=== PATIENT | male | born 1955 | race African-American/Black ===

== ENCOUNTER 2023-02-17 15:24 | Emergency (ER) | payer MEDICARE, SELFPAY ==
[2023-02-17] VITALS (24 sets, daily range): BP systolic 121–146; BP diastolic 77–121; PULSE 72–89; RESP 11–29; TEMP 36.4–36.5; O2SAT 95–100
[2023-02-17 17:58] LABS: Basophils Percent Auto 0.3 % (0.2-1.2); Eosinophils Absolute Auto 0.3 K/mm3 (0-0.3); Eosinophils Percent Auto 3.2 % (0-4.4); Hematocrit 28.7 % (42.0-52.0); Immature Granulocyte Absolute 0.04 K/mm3 (0.00-0.031); Immature Granulocyte Percent A 0.4 % (0-0.5); Lymphocytes Absolute Auto 1.94 K/mm3 (0.9-3.2); Lymphocytes Percent Auto 18.9 % (18.3-44.2); Mean Corpuscular HGB Conc 31.4 g/dl (32-36); Mean Corpuscular Volume 89.4 fl (80-100); Mean Platelet Volume 9.8 fl (7.4-10.4); Monocytes Absolute Auto 0.8 K/mm3 (0.1-0.6); Monocytes Percent Auto 7.9 % (2.6-8.5); Neutrophils Absolute Auto 7.1 K/mm3 (1.3-6.7); Neutrophils Percent Auto 69.3 % (45.5-73.1); Platelet Count Result 464 k/mm3 (150-375); Red Blood Count 3.21 M/mm3 (4.6-6.20); White Blood Count 10.3 K/mm3 (4.5-10.0)
[2023-02-17 18:10] LABS: Prothrombin Time 13.5 Seconds (11.1-14.7)
[2023-02-17 18:11] LABS: Partial Thromboplastin Time 30.9 SECONDS (22.3-36.8)
[2023-02-17 18:26] LABS: Alanine Aminotransferase 9 U/L (6-50); Albumin Level 3.8 g/dL (3.5-5.1); Alkaline Phosphatase 105 U/L (38-126); Anion Gap 6 mmol/L (8-16); Aspartate Amino Transferase 21 U/L (17-59); Bilirubin,Total 0.3 mg/dL (0.2-1.3); Blood Urea Nitrogen 30 mg/dL (9-20); Calcium 8.8 mg/dL (8.4-10.2); Carbon Dioxide 24 mmol/L (22-30); Chloride 106 mmol/L (98-107); Estimated CRCL calculation 15 ml/min; Estimated Glomerular Filt Rate 15; Glucose 101 mg/dL (65-110); Potassium 4.3 mmol/L (3.4-5.0); Sodium 136 mmol/L (137-145)
--- NOTE | 2023-02-17 18:42 | ED.GENADULT ---
HPI - General Adult General Chief complaint: Recheck/Abnormal Lab/Rx Stated complaint: dialysis port not working Time Seen by Provider: 02/17/23 17:26 History of Present Illness HPI narrative: 67-year-old male presenting to the emergency department for evaluation of his poorly functioning dialysis catheter. Patient has been on dialysis for the last 3 or 4 months. Patient was an [place] 8 when he had a urologic procedure and the [place] catheter got clogged off with blood causing urinary retention and a subsequent urinary tract infection. Patient developed SHARI requiring dialysis. Patient has been getting dialysis since. Patient had his dialysis port last changed in [place] when he was visiting family few weeks ago. Over the course of the last week the patient states that he has been unable to complete a full dialysis and patient was told to present to [place] to have the port changed. Patient states his town planner is at [facility]. Patient has never had a catheter port change at [facility]. Related Data Allergies Allergy/AdvReac Type Severity Reaction Status Date / Time No Known Allergies Allergy Verified 02/17/23 17:26 Review of Systems Review of Systems: All systems reviewed & are unremarkable except as noted in HPI and below Exam Narrative: APPEARANCE: Well appearing, no pain, no distress, well-nourished. HEAD: normocephalic, atraumatic. EYES: PERRLA/EOMI, conjunctivae clear. NOSE: Normal no drainage EARS:TMS clear with good light reflex. THROAT: Pharynx clear, no exudate. NECK: Supple. No adenopathy, no masses. RESPIRATORY: Airway patent, respirations nonlabored. Clear to auscultation bilaterally, no rales, rhonchi, wheezing. CARDIOVASCULAR: Regular rate and rhythm without murmurs rubs or gallops. ABDOMINAL: Soft, nontender, nondistended, normal bowel sounds MUSCULOSKELETAL: Moves all extremities. Strength/ROM intact, No edema, No calf tenderness. NEURO: Alert. Cranial nerves II through XII intact. Grossly intact SKIN: Warm, dry. Normal Color Course Course Emergency Course: 67-year-old male presenting ED to have his dialysis catheter exchanged. While waiting for the hospitalist at [facility] to call me back the patient opted to the AMA. Patient was afebrile but did have a minor leukocytosis of 10.3 and a hemoglobin of 9.0. No prior labs are on file. Patient does have a sodium of 136, potassium of 4.3, BUN of 30 and a creatinine of 4.7. No prior baselines are on file. Patient was alert oriented and clinically appropriate when he decided to leave [place]. Patient states he is going to [facility]. Vital Signs Vital signs: Vital Signs Temperature 97.6 F 02/17/23 15:29 Pulse Rate 81 02/17/23 15:29 Respiratory Rate 16 02/17/23 15:29 Blood Pressure 123/77 02/17/23 15:29 Pulse Oximetry 97 02/17/23 15:29 Oxygen Delivery Room Air 02/17/23 15:29 Temperature 97.7 F 02/17/23 17:23 Pulse Rate 78 02/17/23 20:56 Respiratory Rate 13 02/17/23 20:56 Blood Pressure 140/87 02/17/23 20:56 Pulse Oximetry 96 02/17/23 20:56 Oxygen Delivery Room Air 02/17/23 17:23 Medical Decision Making Vital Signs Vital Signs: Vital Signs Temperature 97.6 F 02/17/23 15:29 Pulse Rate 81 02/17/23 15:29 Respiratory Rate 16 02/17/23 15:29 Blood Pressure 123/77 02/17/23 15:29 Pulse Oximetry 97 02/17/23 15:29 Oxygen Delivery Room Air 02/17/23 15:29 Temperature 97.7 F 02/17/23 17:23 Pulse Rate 78 02/17/23 20:56 Respiratory Rate 13 02/17/23 20:56 Blood Pressure 140/87 02/17/23 20:56 Pulse Oximetry 96 02/17/23 20:56 Oxygen Delivery Room Air 02/17/23 17:23 Lab Data 02/17/23 17:50 02/17/23 18:11 Labs: Lab Results 02/17/23 02/17/23 Range/Units 17:50 18:11 WBC 10.3 H (4.5-10.0) K/mm3 RBC 3.21 L (4.6-6.20) M/mm3 Hgb 9.0 L (14.0-18.0) g/dL Hct 28.7 L (42.0-52.0) %
--- NOTE | 2023-02-17 19:20 | PC.NURSE ---
Assumed care of pt from BHARGAVI Armenta at this time.
== END 2023-02-17 20:58 | disposition left against medical advice (07) ==
PROVIDERS: Emergency Provider Emergency Medicine
DX: T82.49XA Other complication of vascular dialysis catheter, initial encounter (principal); Y84.1 Kidney dialysis as the cause of abnormal reaction of the patient, or of later complication, without mention of misadventure at the time of the procedure
CPT/HCPCS: 36415; 80053; 85025; 85610; 85730; 99283

== ENCOUNTER 2023-04-28 18:31 | Emergency (ER) | payer MEDICARE, SELFPAY ==
--- NOTE | ~2023-04-28 | XR_ITS ---
EXAMINATION: XR chest 1V portable INDICATION: Weakness TECHNIQUE: Portable AP chest at 2018 hours COMPARISON: None available FINDINGS: A large bore right internal jugular catheter ends with this tip in the proximal right atriu m. The lungs are free of acute opacities. No pleural effusion or pneumothorax. The cardiomediastinal silhouette is normal. IMPRESSION: 1. No acute cardiopulmonary abnormality. Reviewed, dictated and finalized at location F. ER AND PRINTER FIELD TECHNICIAN
[2023-04-28 18:41] VITALS: BP 105/65; PULSE 95; RESP 18; TEMP 37.3; O2SAT 100
[2023-04-28 20:04] VITALS: BP 133/90; PULSE 91; RESP 24; O2SAT 98
[2023-04-28 20:07] VITALS: PULSE 91
--- NOTE | 2023-04-28 20:11 | ECG_ITS ---
Measurements Intervals [place] Rate: 89 P: 52 MT: 164 QRS: 26 QRSD: 91 T: 74 QT: 353 QTc: 431 Interpretive Statements SINUS RHYTHM WITH MARKED SINUS ARRHYTHMIA NONSPECIFIC T-WAVE ABNORMALITY NO PREVIOUS ECG AVAILABLE FOR COMPARISON Electronically Signed On 04-29-2023 15:39:28 [employer] by Roya Figueroa M.D.
--- NOTE | 2023-04-28 20:33 | ED.GENADULT ---
HPI - General Adult General Chief complaint: Syncope Stated complaint: syncope Time Seen by Provider: 04/28/23 20:00 History of Present Illness HPI narrative: patient is a 67-year-old gentleman who presents emergency department with chief complaint of possible syncopal episode patient reports that he has history of end-stage renal disease on dialysis Wednesday patient states he went to his normal dialysis session but afterwards felt extremely tired the patient reports that he sat down in a chair and was resting his family was talking to him the patient remembers hearing them and remembers hearing the touch him that he just did not feel like his hand no energy to really interact with him wanted to rest EMS was called and the patient was alert and oriented upon arrival the patient states he has no real complaints this time denies chest pain denies shortness of breath denies actual syncope. Related Data Allergies Allergy/AdvReac Type Severity Reaction Status Date / Time No Known Allergies Allergy Verified 02/17/23 17:26 Review of Systems Review of Systems: A 10 system review of systems was completed on the patient and is negative except for what is stated in the HPI. Nursing and ancillary documentation was reviewed. Exam Narrative: GENERAL: Well-appearing, well-nourished, and in no acute distress. HEAD: Normocephalic, atraumatic. EYES: PERRLA and EOMI. ENT: Nares clear, no rhinorrhea or epistaxis. Mucous membranes moist. NECK: Supple. CHEST: Clear to auscultation. No respiratory distress. Dialysis catheter present in the anterior chest on the right side no erythema no purulent drainage from the insertion site. HEART: Regular rate and rhythm. No murmur heard. Normal peripheral pulses. ABDOMEN: Soft, nontender, nondistended, normal active bowel sounds. EXTREMITIES: Normal range of motion. No edema. SKIN: Warm, dry, no rash. NEURO: No focal deficits. Alert and oriented x3. PSYCH: Normal mood and affect. Course Vital Signs Vital signs: Vital Signs Temperature 37.3 C 04/28/23 18:41 Pulse Rate 95 04/28/23 18:41 Respiratory Rate 18 04/28/23 18:41 Blood Pressure 105/65 04/28/23 18:41 Pulse Oximetry 100 04/28/23 18:41 Oxygen Delivery Room Air 04/28/23 18:41 Temperature 37.3 C 04/28/23 18:41 Pulse Rate 92 04/28/23 22:30 Respiratory Rate 15 04/28/23 22:30 Blood Pressure 121/81 04/28/23 22:30 Pulse Oximetry 100 04/28/23 22:30 Oxygen Delivery Room Air 04/28/23 18:41 Medical Decision Making MDM Narrative Medical decision making narrative: differential diagnosis includes UTI, pneumonia, electrolyte abnormality, and COVID-19, laboratory studies were obtained showed normal CBC with white count 11.4 electrolytes showed no significant abnormality patient has history of end-stage renal disease his creatinine is 3.8 carbon dioxide is 33 potassium is 3.9 urinalysis showed greater than 100 white blood cells in the urine 3+ leukocyte esterase patient also was positive for COVID-19 given the patient's end-stage renal disease on dialysis patient is not a candidate for packed Alf. Patient will be instructed symptomatic care for COVID but also be started on antibiotics for UTI. Chest x-ray showed no focal infiltrate and strep was negative. Vital Signs Vital Signs: Vital Signs Temperature 37.3 C 04/28/23 18:41 Pulse Rate 95 04/28/23 18:41 Respiratory Rate 18 04/28/23 18:41 Blood Pressure 105/65 04/28/23 18:41 Pulse Oximetry 100 04/28/23 18:41 Oxygen Delivery Room Air 04/28/23 18:41 Temperature 37.3 C 04/28/23 18:41 Pulse Rate 92 04/28/23 22:30 Respiratory Rate 15 04/28/23 22:30 Blood Pressure 121/81 04/28/23 22:30 Pulse Oximetry 100 04/28/23 22:30 Oxygen Delivery Room Air 04/28/23 18:41 Lab Data 04/28/23 20:28 04/28/23 20:28 Labs: Lab Results 04/28/23 04/28/23 04/28/23 Rang
[2023-04-28 20:45] LABS: Basophils Absolute Auto 0.1 K/mm3 (0.0-0.1); Basophils Percent Auto 0.7 % (0.2-1.2); Eosinophils Absolute Auto 0.2 K/mm3 (0-0.3); Eosinophils Percent Auto 1.8 % (0-4.4); Hematocrit 42.3 % (42.0-52.0); Hemoglobin 13.4 g/dL (14.0-18.0); Immature Granulocyte Absolute 0.04 K/mm3 (0.00-0.031); Immature Granulocyte Percent A 0.4 % (0-0.5); Lymphocytes Absolute Auto 1.08 K/mm3 (0.9-3.2); Lymphocytes Percent Auto 9.5 % (18.3-44.2); Mean Corpuscular HGB Conc 31.7 g/dl (32-36); Mean Corpuscular Hemoglobin 28.6 pg (26-34); Mean Corpuscular Volume 90.2 fl (80-100); Mean Platelet Volume 9.9 fl (7.4-10.4); Monocytes Absolute Auto 0.9 K/mm3 (0.1-0.6); Monocytes Percent Auto 7.5 % (2.6-8.5); Neutrophils Absolute Auto 9.1 K/mm3 (1.3-6.7); Neutrophils Percent Auto 80.1 % (45.5-73.1); Platelet Count Result 283 k/mm3 (150-375); Red Blood Count 4.69 M/mm3 (4.6-6.20); Red Cell Distribution Width 19.2 % (11.5-14.5); White Blood Count 11.4 K/mm3 (4.5-10.0)
[2023-04-28 20:56] LABS: Appearance Urine Turbid (Clear); Bacteria Urine 4+ /hpf; Bilirubin Urine Negative (Negative); Blood Urine 3+ (Negative); Color Urine Dark Yellow (Yellow); Glucose Urine UA Negative (Negative); Ketones Urine Negative (Negative); Leukocyte Esterase Ur 3+ LEU/UL (Negative); Need Manual Microscopic Reviewed; Nitrate Urine Negative (Negative); Non Pathogenic Casts >20; Protein Urine 3+ mg/dL (Negative); Specific Grav Ur 1.016 (1.001-1.035); Squamous Epithelial Cell Urine Occasional /hpf (Few); WBC Urine >100 /hpf; pH Urine 7.5 (5.0-9.0)
[2023-04-28 20:57] LABS: Add Urine Microscopic? YES
[2023-04-28 21:10] LABS: Strep Group A RT-PCR NOT DETECTED (Negative)
[2023-04-28 21:21] LABS: Influenza A QL RT-PCR Negative (Negative); Influenza B QL RT-PCR Negative (Negative); RSV RNA, RT-PCR Negative (Negative); SARS-CoV-2 RNA PCR Positive (Negative)
[2023-04-28 22:30] VITALS: BP 121/81; PULSE 92; RESP 15; O2SAT 100
[2023-04-28 22:41] LABS: Alanine Aminotransferase 12 U/L (6-50); Albumin Level 4.5 g/dL (3.5-5.1); Alkaline Phosphatase 112 U/L (38-126); Anion Gap 6 mmol/L (8-16); Aspartate Amino Transferase 26 U/L (17-59); Bilirubin,Total 0.4 mg/dL (0.2-1.3); Blood Urea Nitrogen 13 mg/dL (9-20); Calcium 9.3 mg/dL (8.4-10.2); Carbon Dioxide 33 mmol/L (22-30); Chloride 95 mmol/L (98-107); Estimated CRCL calculation 19 ml/min; Estimated Glomerular Filt Rate 19; Glucose 95 mg/dL (65-110); Potassium 3.9 mmol/L (3.4-5.0); Sodium 134 mmol/L (137-145)
[2023-04-28 22:52] LABS: Troponin I < 0.012 ng/mL (0.000-0.034)
[2023-04-29 00:41] VITALS: BP 114/70; PULSE 94; RESP 20; O2SAT 100
== END 2023-04-29 00:11 | disposition home or self-care (01) ==
PROVIDERS: Emergency Provider Emergency Medicine
DX: U07.1 COVID-19 (principal); J06.9 Acute upper respiratory infection, unspecified; N39.0 Urinary tract infection, site not specified; N18.6 End stage renal disease; Z99.2 Dependence on renal dialysis; R94.31 Abnormal electrocardiogram [ECG] [EKG]
CPT/HCPCS: 36415; 71045; 80053; 81001; 84484; 85025; 87086; 87088; 87637; 87651; 93005; 99284

== ENCOUNTER 2024-03-11 11:36 | Inpatient (IN) | payer MEDICARE, MEDICAID, SELFPAY ==
--- NOTE | ~2024-03-11 | NM_ITS ---
EXAMINATION: NM tono stress w perfusion DATE: 03/14/2024 14:12 INDICATION: Abnormal electrocardiogram. Premature ventricular contractions. TECHNIQUE: Rest images were obtained following intravenous administration of 9.0 mCi Tc99m tetrofosmi n (Myoview). The patient was infused intravenously with Lexiscan (regadenoson). Then, 27.6 mCi Tc99m tetrofosmin (Myoview) was administered intravenously, and stress images were obtained. Data was recon structed into short axis and horizontal and vertical long axis SPECT images. Gated SPECT images were also obtained. COMPARISON: None. FINDINGS: There is no definite reversible or fixed perfusion abnormality to suggest ischemia or infar ction. There is no segmental wall motion abnormality. Left ventricular ejection fraction measures 6 2%. IMPRESSION: 1. No definite ischemia or infarct. 2. Normal left ventricular ejection fraction measuring 62%. Reviewed, dictated and finalized at location A. OSIVE ORDNANCE TECHNICIAN
--- NOTE | ~2024-03-11 | XR_ITS ---
XR chest 2V Ordering provider: Jeni Huddleston PA-C History: 68 years Male with . weakness, dizziness . Comparison: April 28, 2023 FINDINGS: MEDIASTINUM: The cardiac silhouette is not enlarged. Right permacath with the tip overlying superior vena cava. LUNGS: No infiltrates, effusions or pneumothorax. OTHER: No free air under the diaphragm. IMPRESSION: No acute cardiopulmonary pathology. Reviewed, dictated and finalized at location A. A DRIVER
[2024-03-11 12:16] VITALS: BP 124/79; PULSE 63; RESP 18; TEMP 36.3; O2SAT 100
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
--- NOTE | 2024-03-11 15:41 | ECG_ITS ---
Test Date: 2024-03-11 16:22:05 Measurements Intervals [place] Rate: 64 P: 57 RI: 199 QRS: 8 QRSD: 76 T: 63 QT: 388 QTc: 402 Interpretive Statements SINUS RHYTHM POSSIBLE ANTERIOR MYOCARDIAL INFARCTION , OF INDETERMINATE AGE [30 ms Q WAVE IN V3/V4, OR R < 0.2 mV IN V4] ABNORMAL ECG No previous ECG available for comparison Electronically Signed On 03-11-2024 17:43:50 HOME HEALTH ATTENDANT by Selvin Arellano M.D.
[2024-03-11 16:18] VITALS: BP 138/87; PULSE 66; PULSE 67; RESP 19; O2SAT 100
[2024-03-11 16:25] LABS: Basophils Absolute Auto 0.1 K/mm3 (0.0-0.1); Basophils Percent Auto 0.7 % (0.2-1.2); Eosinophils Absolute Auto 0.1 K/mm3 (0-0.3); Hematocrit 39.8 % (42.0-52.0); Hemoglobin 13.1 g/dL (14.0-18.0); Immature Granulocyte Absolute 0.03 K/mm3 (0.00-0.031); Immature Granulocyte Percent A 0.3 % (0-0.5); Lymphocytes Absolute Auto 2.17 K/mm3 (0.9-3.2); Lymphocytes Percent Auto 24.7 % (18.3-44.2); Mean Corpuscular HGB Conc 32.9 g/dl (32-36); Mean Corpuscular Hemoglobin 31.3 pg (26-34); Mean Corpuscular Volume 95.2 fl (80-100); Mean Platelet Volume 10.7 fl (7.4-10.4); Monocytes Absolute Auto 0.4 K/mm3 (0.1-0.6); Monocytes Percent Auto 4.3 % (2.6-8.5); Neutrophils Absolute Auto 6.1 K/mm3 (1.3-6.7); Platelet Count Result 275 k/mm3 (150-375); Red Blood Count 4.18 M/mm3 (4.6-6.20); Red Cell Distribution Width 14.3 % (11.5-14.5); White Blood Count 8.8 K/mm3 (4.5-10.0)
[2024-03-11 16:33] LABS: INR 0.9; Prothrombin Time 12.1 Seconds (11.1-14.7)
[2024-03-11 16:34] LABS: Partial Thromboplastin Time 29.4 Seconds (22.3-36.8)
[2024-03-11 16:43] LABS: NT Pro B Type Natriuretic Pept 6350 pg/mL (19.9-100)
[2024-03-11 17:03] LABS: Alanine Aminotransferase 11 U/L (6-50); Albumin Level 4.4 g/dL (3.5-5.1); Alkaline Phosphatase 79 U/L (38-126); Anion Gap 21 mmol/L (4-12); Aspartate Amino Transferase 18 U/L (17-59); Bilirubin,Total 0.8 mg/dL (0.2-1.3); Blood Urea Nitrogen 64 mg/dL (9-20); Calcium 9.2 mg/dL (8.4-10.2); Carbon Dioxide 17 mmol/L (22-30); Chloride 98 mmol/L (98-107); Glucose 59 mg/dL (65-110); Potassium 5.5 mmol/L (3.4-5.0); Sodium 136 mmol/L (137-145)
[2024-03-11 17:10] VITALS: BP 137/84; PULSE 72; RESP 16
[2024-03-11 17:18] LABS: Estimated CRCL calculation 4 ml/min; Estimated Glomerular Filt Rate 4
[2024-03-11 17:43] LABS: Glucose Point of Care 84 mg/dl (65-105)
[2024-03-11 19:19] VITALS: BP 142/78; PULSE 67; RESP 15; O2SAT 100
[2024-03-11] MEDS: SODIUM ZIRCONIUM CYCLOSILICATE 10 GM POWD.PACK PO (19:19)
[2024-03-11] MEDS: FUROSEMIDE INJ 40 MG/4 ML VIAL IV PUSH (19:19)
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
[2024-03-11 21:25] VITALS: BP 154/85; PULSE 64; RESP 16; TEMP 36.6; O2SAT 100
[2024-03-12] VITALS (23 sets, daily range): BP systolic 113–151; BP diastolic 70–95; PULSE 64–88; RESP 14–20; TEMP 36.5–36.9; O2SAT 99–100; BMI 19.8
--- NOTE | 2024-03-12 05:23 | ADMGEN ---
This patient, Niesha Ceja, was admitted to 2 Medical Room 255-. Patient/family oriented to hospital policies and general routines including ID bracelet, bed and alarms, visiting hours, pain management, procedures, bathroom and other care routines, personal items, smoking policy, room service/diet, and visiting hours. Information on how to activate the Rapid Response Team has been discussed. Patient/Family are encouraged to report perceived risks to care and to ask questions if they do not understand what they are told or what they should do.
[2024-03-12 06:37] LABS: Hepatitis B Surface Antigen Negative (Negative)
[2024-03-12 06:55] LABS: Hepatitis B Surface Anti Res Positive
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
[2024-03-12 07:52] LABS: Basophils Absolute Auto 0.1 K/mm3 (0.0-0.1); Basophils Percent Auto 0.7 % (0.2-1.2); Eosinophils Absolute Auto 0.3 K/mm3 (0-0.3); Eosinophils Percent Auto 2.9 % (0-4.4); Hematocrit 35.7 % (42.0-52.0); Hemoglobin 11.9 g/dL (14.0-18.0); Immature Granulocyte Absolute 0.02 K/mm3 (0.00-0.031); Immature Granulocyte Percent A 0.2 % (0-0.5); Lymphocytes Absolute Auto 2.73 K/mm3 (0.9-3.2); Lymphocytes Percent Auto 31.2 % (18.3-44.2); Mean Corpuscular HGB Conc 33.3 g/dl (32-36); Mean Corpuscular Hemoglobin 31.9 pg (26-34); Mean Corpuscular Volume 95.7 fl (80-100); Monocytes Absolute Auto 0.6 K/mm3 (0.1-0.6); Monocytes Percent Auto 7.2 % (2.6-8.5); Neutrophils Absolute Auto 5.1 K/mm3 (1.3-6.7); Neutrophils Percent Auto 57.8 % (45.5-73.1); Platelet Count Result 233 k/mm3 (150-375); Red Blood Count 3.73 M/mm3 (4.6-6.20); Red Cell Distribution Width 14.4 % (11.5-14.5); White Blood Count 8.8 K/mm3 (4.5-10.0)
[2024-03-12 08:24] LABS: Alanine Aminotransferase 8 U/L (6-50); Albumin Level 3.7 g/dL (3.5-5.1); Alkaline Phosphatase 72 U/L (38-126); Anion Gap 13 mmol/L (4-12); Aspartate Amino Transferase 24 U/L (17-59); Bilirubin,Total 0.7 mg/dL (0.2-1.3); Blood Urea Nitrogen 69 mg/dL (9-20); Calcium 8.7 mg/dL (8.4-10.2); Carbon Dioxide 17 mmol/L (22-30); Chloride 103 mmol/L (98-107); Estimated CRCL calculation 4 ml/min; Estimated Glomerular Filt Rate 4; Glucose 72 mg/dL (65-110); Potassium 5.6 mmol/L (3.4-5.0); Sodium 133 mmol/L (137-145)
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
--- NOTE | 2024-03-12 12:58 | P.PNCROSS_ITS ---
Event Note Event Note Event Note: Patient is on dialysis. He is tolerating it well. Removing 3L of fluid and do ing well. Patient was seen at noon
--- NOTE | 2024-03-12 12:58 | PM.EVENT ---
Event Note Event Note Event Note: Patient is on dialysis. He is tolerating it well. Removing 3L of fluid and doing well. Patient was seen at noon
[2024-03-12 14:27] LABS: Iron 101 ug/dL (49-181)
[2024-03-12 14:36] LABS: Percent Iron Saturation 41 % (20-50)
[2024-03-12] MEDS: HEPARIN SODIUM 1,000 UNITS/ML VIAL 1000 UNITS IV PUSH (14:40)
[2024-03-12 15:31] LABS: Folic Acid 7.1 ng/mL (2.76->20)
[2024-03-12] MEDS: HYDROcodone/acetaminophen (*CRX) 5-325 MG TABLET 1 TAB PO ×2 (18:11→22:17)
[2024-03-12] MEDS: METOPROLOL TARTRATE 25 MG TABLET PO (20:30)
[2024-03-12] MEDS: TAMSULOSIN HCL 0.4 MG CAPSULE PO (20:31)
[2024-03-13] VITALS (25 sets, daily range): BP systolic 88–158; BP diastolic 57–88; PULSE 40–92; RESP 16–20; TEMP 36.4–37.1; O2SAT 99–100
--- NOTE | 2024-03-13 01:27 | ECG_ITS ---
Test Date: 2024-03-13 01:39:58 Measurements Intervals [place] Rate: 62 P: 59 NH: 190 QRS: 2 QRSD: 77 T: 57 QT: 411 QTc: 420 Interpretive Statements sinus rhythm with pacs and pvcs SEPTAL MYOCARDIAL INFARCTION , PROBABLY OLD [40+ ms Q WAVE IN V1/V2] CRITICAL TEST RESULT Compared to ECG 03/11/2024 16:22:05 Sinus rhythm no longer present Myocardial infarct finding still present Electronically Signed On 03-13-2024 21:54:35 [employer] E[employer] SEWING MACHINE OPERATOR by Kenya Jacobo M.D.
[2024-03-13] MEDS: HYDROcodone/acetaminophen (*CRX) 5-325 MG TABLET 1 TAB PO ×4 (02:11→20:58)
[2024-03-13 05:57] LABS: Basophils Absolute Auto 0.1 K/mm3 (0.0-0.1); Basophils Percent Auto 0.7 % (0.2-1.2); Eosinophils Absolute Auto 0.3 K/mm3 (0-0.3); Eosinophils Percent Auto 2.8 % (0-4.4); Hematocrit 36.9 % (42.0-52.0); Immature Granulocyte Absolute 0.04 K/mm3 (0.00-0.031); Immature Granulocyte Percent A 0.4 % (0-0.5); Lymphocytes Absolute Auto 3.78 K/mm3 (0.9-3.2); Lymphocytes Percent Auto 40.3 % (18.3-44.2); Mean Corpuscular HGB Conc 32.5 g/dl (32-36); Mean Corpuscular Hemoglobin 30.9 pg (26-34); Mean Corpuscular Volume 95.1 fl (80-100); Mean Platelet Volume 10.4 fl (7.4-10.4); Monocytes Absolute Auto 0.9 K/mm3 (0.1-0.6); Monocytes Percent Auto 9.7 % (2.6-8.5); Neutrophils Absolute Auto 4.3 K/mm3 (1.3-6.7); Neutrophils Percent Auto 46.1 % (45.5-73.1); Platelet Count Result 215 k/mm3 (150-375); Red Blood Count 3.88 M/mm3 (4.6-6.20); Red Cell Distribution Width 14.1 % (11.5-14.5); White Blood Count 9.4 K/mm3 (4.5-10.0)
[2024-03-13 06:12] LABS: Alanine Aminotransferase 9 U/L (6-50); Albumin Level 3.7 g/dL (3.5-5.1); Alkaline Phosphatase 63 U/L (38-126); Anion Gap 12 mmol/L (4-12); Aspartate Amino Transferase 18 U/L (17-59); Bilirubin,Total 0.5 mg/dL (0.2-1.3); Blood Urea Nitrogen 33 mg/dL (9-20); Calcium 8.3 mg/dL (8.4-10.2); Carbon Dioxide 24 mmol/L (22-30); Chloride 97 mmol/L (98-107); Estimated CRCL calculation 6 ml/min; Estimated Glomerular Filt Rate 6; Glucose 80 mg/dL (65-110); Potassium 4.2 mmol/L (3.4-5.0); Sodium 133 mmol/L (137-145)
[2024-03-13] MEDS: ACETAMINOPHEN 500 MG TABLET PO (06:21)
[2024-03-13 08:31] LABS: Phosphorus 5.6 mg/dL (2.5-4.5)
--- NOTE | 2024-03-13 10:14 | P.PNNP_ITS ---
Progress Note: A&P Assessment and Plan (1) ESRD on dialysis: Code(s): N18.6 - End stage renal disease; Z99.2 - Dependence on renal dialysis Status: Acute Assessment and Plan: * ESRD * Hyperkalemia * Volume overload * Missed dialysis * Anemia of CKD * Hypertensive renal disease Plan: HD today Subjective Date/time seen: 03/13/24 10:14 Interval history: HEMODIALYSIS PROCEDURE NOTE: Seen and examined on hemodialysis Right chest wall CVC in use UF planned 2000 mls QB 400 mls/min 03/13/24 1039 ESRD follow up Missed a number of treatments Had acidosis, hyperkalemia, volume overload Had dialysis yesterday 2.44 l fluid removal yesterday Feels OK with breathing today No swelling No nausea or emesis Exam Const: General: comfortable and no acute distress Eyes: General: appearance normal, both eyes and all related structures Neck: Neck: supple and no JVD Resp: Effort & Inspection: normal respiratory effort Auscultation: clear to auscultation bilaterally GI: GI Palp: Yes Soft to palpation Other: no masses, non tender Neuro: Other: alert. orinted x 3 Extrem: Other: no edema, no cyaNOSIS Psych: Affect: normal affect Other: Is at baseline Objective Data Vital Signs Vital Signs: Vital Signs - 24 hr 03/12/24 10:50 03/12/24 11:00 03/12/24 11:15 Temperature 36.7 C Pulse Rate 70 64 64 Respiratory Rate 18 Blood Pressure 143/84 H 143/84 H 135/86 Pulse Oximetry 100 Oxygen Delivery 03/12/24 11:30 03/12/24 11:45 03/12/24 12:00 Temperature Pulse Rate 64 69 70 Respiratory Rate Blood Pressure 132/86 151/95 H 138/89 Pulse Oximetry Oxygen Delivery 03/12/24 12:00 03/12/24 12:15 03/12/24 12:30 Temperature Pulse Rate 67 68 74 Respiratory Rate Blood Pressure 138/86 144/90 H Pulse Oximetry Oxygen Delivery 03/12/24 13:00 03/12/24 13:15 03/12/24 13:30 Temperature Pulse Rate 68 76 72 Respiratory Rate Blood Pressure 135/91 H 130/92 H 113/71 Pulse Oximetry Oxygen Delivery 03/12/24 13:45 03/12/24 14:00 03/12/24 14:15 Temperature Pulse Rate 76 88 72 Respiratory Rate Blood Pressure 118/75 133/82 139/92 H Pulse Oximetry Oxygen Delivery 03/12/24 14:30 03/12/24 14:44 03/12/24 15:21 Temperature 36.8 C 36.7 C Pulse Rate 73 72 79 Respiratory Rate 16 18 Blood Pressure 146/70 H 150/90 H 151/89 H Pulse Oximetry 100 100 Oxygen Delivery 03/12/24 16:00 03/12/24 20:00 03/12/24 20:00 Temperature Pulse Rate 79 86 81 Respiratory Rate 20 Blood Pressure Pulse Oximetry 100 Oxygen Delivery Room Air 03/12/24 20:10 03/12/24 20:30 03/13/24 00:00 Temperature 36.7 C Pulse Rate 86 86 62 Respiratory Rate 20 Blood Pressure 138/80 Pulse Oximetry 100 Oxygen Delivery 03/13/24 04:00 03/13/24 04:58 03/13/24 08:00 Temperature 36.4 C L Pulse Rate 74 74 74 Respiratory Rate 20 20 Blood Pressure 130/70 Pulse Oximetry 100 100 Oxygen Delivery Room Air 03/13/24 08:00 Temperature Pulse Rate 74 Respiratory Rate Blood Pressure Pulse Oximetry Oxygen Delivery Intake/Output Intake/Output: Intake & Output 03/10/24 03/11/24 03/12/24 03/13/24 23:59 23:59 23:59 23:59 Intake Total 1030 340 Output Total 3142 200 Balance -2112 140 Meds/Results Medications: Active Medications Generic Name Dose Route Start Last Admin Trade Name Freq PRN Reason Stop Dose Admin Acetaminophen 650 mg 03/11/24 19:00 Acetaminophen 325 Mg Tablet PO Q4H PRN Mild Pain (1-3) or Fever Acetaminophen 500 mg 03/12/24 13:50 03/13/24 06:21 Acetaminophen 500 Mg Tablet PO 500 mg Q6H PRN Administration PAIN RATED 1-3 Hydrocodone Bitart/Acetaminophen 1 tab 03/11/24 19:00 03/13/24 09:21 Hydrocodone/Acetaminophen (*Crx) 5-325 Mg Tablet PO 1 tab Q4H PRN Administration Pain Rated 4-6 Amlodipine Besylate 10 mg 03/13/24 09:00 Amlodipine Besylate 10 Mg Tablet PO DAILY [facility] Famotidine 20 mg 03/13/24 09:00 Famotidine 20 Mg Tablet PO DAILY ANDER Finasteride 5 mg 03/13/24 09:00 Finasteride 5 Mg Tablet PO DAILY [facility] Albumin Human 50 mls @ 999 mls/hr 03/12/24 13:05 Albutein IVPB 03/13/24 13:04 Q10M PRN HYPOTENSION Metoprolol Tartrate 25 mg 03/12/24 21:00 03/12/24 20:30 Metoprolol Tartrate 25 Mg Tablet PO 25 mg Q12HR ANDER Administration Ondansetron HCl 4 mg 03/11/24 19:00 Ondansetron Inj 4 Mg/2 Ml Vial IV PUSH Q4H PRN Nausea Pantoprazole Sodium 40 mg 03/13/24 09:00 Pantoprazole 40 Mg Tablet PO DAILY [facility] Tamsulosin HCl 0.4 mg 03/12/24 21:00 03/12/24 20:31 Tamsulosin Hcl 0.4 Mg Capsule PO 0.4 mg HS ANDER Administration Radiology Results: ITS Impressions Chest X-Ray 03/11/24 16:00 IMPRESSION: No acute cardiopulmonary pathology. Labs Labs: Laboratory Results - last 24 hr 03/12/24 03/12/24 03/13/24 05:29 05:32 05:38 WBC 9.4 RBC 3.88 L Hgb 12.0 L Hct 36.9 L MCV 95.1 MCH 30.9 MCHC 32.5 RDW 14.1 Plt Count 215 MPV 10.4 Immature Gran % (Auto) 0.4 Neut % (Auto) 46.1 Lymph % (Auto) 40.3 [place] % (Auto) 9.7 H Eos % (Auto) 2.8 Baso % (Auto) 0.7 Lymph # (Auto) 3.78 H [place] # (Auto) 0.9 H Eos # (Auto) 0.3 Baso # (Auto) 0.1 Abs Immat Gran (auto) 0.04 H Absolute Neuts (auto) 4.3 Absolute Nucleated RBC 0.000 Nucleated RBC % 0.0 Sodium 133 L Potassium 4.2 Chloride 97 L Carbon Dioxide 24 Anion Gap 12 BUN 33 H D Creatinine 10.05 H Estim Creat Clear Calc 6 Estimated GFR 6 L Glucose 80 Calcium 8.3 L Phosphorus 5.6 H Iron 101 TIBC 249 L % Saturation 41 Total Bilirubin 0.5 AST 18 ALT 9 Alkaline Phosphatase 63 Total Protein 7.0 Albumin 3.7 Vitamin B12 235.0 L Folate 7.1
--- NOTE | 2024-03-13 14:33 | PM.IMPN ---
Progress Note: A&P Assessment and Plan (1) Bradycardia: Code(s): R00.1 - Bradycardia, unspecified Status: Acute Assessment and Plan: Patient with irregular heart rate, noted to drop into the 30s overnight. Remained asymptomatic. Per patient he follows a ultrasonic cleaner in [place] at [facility]. Unsure what his ultrasonic cleaner name is or why he follows with him. Patient had a hospital monitor 2 months ago but is unsure of the results. - EKG sinus rhythm HR 62 - Tele monitor - Echo ordered - Cardiology consulted, appreciate recommendations (2) Volume overload: Qualifiers: Hypervolemia type: unspecified Qualified Code(s): E87.70 - Fluid overload, unspecified Code(s): E87.70 - Fluid overload, unspecified Status: Acute Assessment and Plan: Patient endorsing shortness of breath with exertion after missing dialysis for the past week. - Lasix 40 mg IV x1 in the ED - Chest XR: no acute cardiopulmonary pathology - Plan for patient to receive dialysis during admission (3) ESRD on dialysis: Code(s): N18.6 - End stage renal disease; Z99.2 - Dependence on renal dialysis Status: Acute Assessment and Plan: ESRD on HD MWF. Reports missing his dialysis appointments for the past week due to weather condition. BUN/Cr 64/16.41 on admission - BUN/Cr 33/10.05 on am labs - Avoid nephrotoxic medications - Renally dose medications - Monitor I/O - Nephrology consult for dialysis s/p HD 03/12 removed 3L plan for HD today (4) Hyperkalemia: Code(s): E87.5 - Hyperkalemia Status: Acute Assessment and Plan: K 5.5 on admission secondary to missing dialysis - Lokelma 10 mg x2 given in the ED - EKG sinus rhythm HR 64 - K 4.2 on am labs - Continue telemetry - Continue to monitor with CMP - Nephrology consulted for dialysis treatment s/p 2 K bath with dialysis on 03/13 (5) Hypertension: Code(s): I10 - Essential (primary) hypertension Status: Acute Assessment and Plan: Chronic, continue home medications - amlodipine 10 mg daily - metoprolol 25 mg BID - blood pressure is stable, continue to monitor (6) Metabolic acidosis: Code(s): E87.20 - Acidosis, unspecified Status: Acute Assessment and Plan: Likely secondary to missed dialysis Bicarb 24 on am labs Continue to monitor (7) Anemia: Code(s): D64.9 - Anemia, unspecified Status: Acute Assessment and Plan: Likely secondary to ESRD, per nephrology Hemoglobin is low but too high to give PARISA right now. No signs of active bleeding. - Iron panel WNL - B12 235, started on supplementation - Folate WNL - Monitor Time Spent With Patient Time with patient: 25 - 35 minutes Subjective Date/time seen: 03/13/24 14:33 Interval history: 68 year old male with past medical history of GERD, HTN and ESRD on HD MWF presents to the hospital for shortness of breath with exertion after missing his dialysis appointments for the past week due to weather condition. Patient is pleasant lying comfortably in bed. He has no complaints denying chest pain, shortness of breath, palpitations, nausea/vomiting, dizziness/lightheadedness, fatigue. Patient with irregular heart rate, noted to drop into the 30s overnight. Remained asymptomatic. Per patient he follows a ultrasonic cleaner in [facility] at [facility]. Unsure what his ultrasonic cleaner name is or why he follows with him. Patient had a hospital monitor 2 months ago but is unsure of the results. Cardiology consulted. Review of Systems Review of Systems: All systems reviewed & are unremarkable except as noted in HPI and below Exam Narrative: AF HR 88 RR 17 SpO2 100 BP 105/86 General: male in no acute respiratory distress who is nontoxic appearing, lying semi recumbent in bed. HEENT: Normocephalic. Atraumatic. Extraocular movement intact. Sclera clear and anicteric. No facial asymmetry. Chest: Lungs are clear to auscultation bilaterally. No wheezes or crackles. CV: Heart was regular rate and rhythm. S1/S2. No murmurs, gallops, or rubs. Abd: Abdomen was soft. Nontender. Nondistended. Positive bowel sounds. No organomegaly or masses. Ext: No clubbing, cyanosis, or edema. 2+ DP pulses bilaterally. Neuro: Patient is alert. Speech is clear. Objective Data Vital Signs Vital Signs: Vital Signs - 24 hr 03/12/24 14:44 03/12/24 15:21 03/12/24 16:00 Temperature 98.2 F 98.1 F Pulse Rate 72 79 79 Respiratory Rate 16 18 Blood Pressure 150/90 H 151/89 H Pulse Oximetry 100 100 Oxygen Delivery Oxygen Flow Rate Fraction of Inspired Oxygen 03/12/24 20:00 03/12/24 20:00 03/12/24 20:10 Temperature 98.1 F Pulse Rate 86 81 86 Respiratory Rate 20 20 Blood Pressure 138/80 Pulse Oximetry 100 100 Oxygen Delivery Room Air Oxygen Flow Rate Fraction of Inspired Oxygen 03/12/24 20:30 03/13/24 00:00 03/13/24 04:00 Temperature Pulse Rate 86 62 74 Respiratory Rate Blood Pressure Pulse Oximetry Oxygen Delivery Oxygen Flow Rate Fraction of Inspired Oxygen 03/13/24 04:58 03/13/24 08:00 03/13/24 08:00 Temperature 97.5 F L Pulse Rate 74 74 74 Respiratory Rate 20 20 Blood Pressure 130/70 Pulse Oximetry 100 100 Oxygen Delivery Room Air Oxygen Flow Rate Fraction of Inspired Oxygen 03/13/24 10:27 03/13/24 10:27 03/13/24 10:38 Temperature 98.2 F Pulse Rate 43 L 48 L Respiratory Rate 17 Blood Pressure 158/80 H 129/83 Pulse Oximetry 100 Oxygen Delivery Oxygen Flow Rate 0 Fraction of Inspired Oxygen 0 03/13/24 10:45 03/13/24 11:00 03/13/24 11:15 Temperature Pulse Rate 40 L 55 L 55 L Respiratory Rate Blood Pressure 138/77 121/76 119/84 Pulse Oximetry Oxygen Delivery Oxygen Flow Rate Fraction of Inspired Oxygen 03/13/24 11:30 03/13/24 11:45 03/13/24 12:00 Temperature Pulse Rate 82 76 80 Respiratory Rate Blood Pressure 110/73 111/64 102/75 Pulse Oximetry Oxygen Delivery Oxygen Flow Rate Fraction of Inspired Oxygen 03/13/24 12:15 03/13/24 12:30 03/13/24 12:45 Temperature Pulse Rate 83 92 85 Respiratory Rate Blood Pressure 114/81 134/76 116/85 Pulse Oximetry Oxygen Delivery Oxygen Flow Rate Fraction of Inspired Oxygen 03/13/24 13:00 03/13/24 13:15 03/13/24 13:30 Temperature Pulse Rate 90 57 L 88 Respiratory Rate Blood Pressure 115/85 111/68 105/86 Pulse Oximetry Oxygen Delivery Oxygen Flow Rate Fraction of Inspired Oxygen Intake/Output Intake/Output: Intake & Output 03/10/24 03/11/24 03/12/24 03/13/24 23:59 23:59 23:59 23:59 Intake Total 1030 340 Output Total 3142 200 Balance -2112 140 Meds/Results Medications: Active Medications Generic Name Dose Route Start Last Admin Trade Name Freq PRN Reason Stop Dose Admin Acetaminophen 650 mg 03/11/24 19:00 Acetaminophen 325 Mg Tablet PO Q4H PRN Mild Pain (1-3) or Fever Acetaminophen 500 mg 03/12/24 13:50 03/13/24 06:21 Acetaminophen 500 Mg Tablet PO 500 mg Q6H PRN Administration PAIN RATED 1-3 Hydrocodone Bitart/Acetaminophen 1 tab 03/11/24 19:00 03/13/24 09:21 Hydrocodone/Acetaminophen (*Crx) 5-325 Mg Tablet PO 1 tab Q4H PRN Administration Pain Rated 4-6 Amlodipine Besylate 10 mg 03/13/24 09:00 Amlodipine Besylate 10 Mg Tablet PO DAILY [facility] Famotidine 20 mg 03/13/24 09:00 Famotidine 20 Mg Tablet PO DAILY [facility] Finasteride 5 mg 03/13/24 09:00 Finasteride 5 Mg Tablet PO DAILY [facility] Metoprolol Tartrate 25 mg 03/12/24 21:00 03/12/24 20:30 Metoprolol Tartrate 25 Mg Tablet PO 25 mg Q12HR ANDER Administration Ondansetron HCl 4 mg 03/11/24 19:00 Ondansetron Inj 4 Mg/2 Ml Vial IV PUSH Q4H PRN Nausea Pantoprazole Sodium 40 mg 03/13/24 09:00 Pantoprazole 40 Mg Tablet PO DAILY [facility] Tamsulosin HCl 0.4 mg 03/12/24 21:00 03/12/24 20:31 Tamsulosin Hcl 0.4 Mg Capsule PO 0.4 mg HS ANDER Administration Radiology Results: ITS Impressions Chest X-Ray 03/11/24 16:00 IMPRESSION: No acute cardiopulmonary pathology. Labs Labs: Laboratory Results - last 24 hr 03/12/24 03/12/24 03/13/24 05:29 05:32 05:38 WBC 9.4 RBC 3.88 L Hgb 12.0 L Hct 36.9 L MCV 95.1 MCH 30.9 MCHC 32.5 RDW 14.1 Plt Count 215 MPV 10.4 Immature Gran % (Auto) 0.4 Neut % (Auto) 46.1 Lymph % (Auto) 40.3 [place] % (Auto) 9.7 H Eos % (Auto) 2.8 Baso % (Auto) 0.7 Lymph # (Auto) 3.78 H [place] # (Auto) 0.9 H Eos # (Auto) 0.3 Baso # (Auto) 0.1 Abs Immat Gran (auto) 0.04 H Absolute Neuts (auto) 4.3 Absolute Nucleated RBC 0.000 Nucleated RBC % 0.0 Sodium 133 L Potassium 4.2 Chloride 97 L Carbon Dioxide 24 Anion Gap 12 BUN 33 H D Creatinine 10.05 H Estim Creat Clear Calc 6 Estimated GFR 6 L Glucose 80 Calcium 8.3 L Phosphorus 5.6 H TIBC 249 L % Saturation 41 Total Bilirubin 0.5 AST 18 ALT 9 Alkaline Phosphatase 63 Total Protein 7.0 Albumin 3.7 Vitamin B12 235.0 L Folate 7.1 Quality VTE Prophylaxis VTE prophylaxis: mechanical ordered
--- NOTE | 2024-03-13 15:00 | P.CONCA_ITS ---
Assessment and Plan Assessment and plan (1) Bradycardia: Code(s): R00.1 - Bradycardia, unspecified Status: Acute (2) PVCs (premature ventricular contractions): Code(s): I49.3 - Ventricular premature depolarization Status: Acute (3) PAC (premature atrial contraction): Code(s): I49.1 - Atrial premature depolarization Status: Acute (4) Hypertension: Code(s): I10 - Essential (primary) hypertension Status: Acute (5) ESRD on dialysis: Code(s): N18.6 - End stage renal disease; Z99.2 - Dependence on renal dialysis Status: Acute Plan -in regards to PVCs and PACs, recommend to check an echocardiogram to assess cardiac structure and function. Because dialysis patient is at higher risk for CAD and given frequent PVCs Lexiscan stress test is recommended. If plan to discharge the patient today it can be done as an outpatient for both the echo and the Lexiscan. Will order tentatively for tomorrow unless the patient will be discharged today. -regards to sinus bradycardia, fairly asymptomatic. He takes metoprolol 25 mg b.i.d.. Recommend to continue metoprolol given frequent PACs and PVCs. Rigorous hypertension controlled. Continue amlodipine and metoprolol. History of Present Illness History of Present Illness Consult date/time: Date of service 03/13/24 15:00 Requesting physician: Kiersten Mtz PA-C Consult reason: Other (Bradycardia) Reason For Visit: hyperkalemia, volume overload Narrative: This 68-year-old patient with history of end-stage renal disease on dialysis, GERD, hypertension who presents here to the hospital with shortness of breath as he missed dialysis due to weather conditions. His potassium on admission was high at 5.5. Consult was called for bradycardia. The EKG that was done earlier shows sinus rhythm with PACs. On telemetry there are PACs and PVCs and sinus bradycardia as well. He just finished dialysis session. Denies chest pain, shortness of breath, lower extremity edema, dizziness or syncope. He smokes lightly and drinks alcohol on occasions. Review of Systems 2 Constitutional: Constitutional: Denies chills, Denies fever(s) and Denies poor appetite Eyes: Eyes: Denies eye discharge, Denies loss of vision and Denies eye pain ENT: Denies dizziness, Denies epistaxis, Denies nasal congestion and Denies sore throat Cardiovascular: Cardiovascular: Denies chest pain, Denies syncope, Denies pedal edema, Denies leg edema, Denies palpitations and Reports dyspnea Respiratory: Respiratory: Denies cough, Reports dyspnea, Reports dyspnea on exertion and Denies wheezing Gastrointestinal: Gastrointestinal: Denies abdominal pain, Denies diarrhea, Denies nausea and Denies vomiting Genitourinary: Genitourinary: Denies hematuria, Denies genital lesions and Denies dysuria Musculoskeletal: Musculoskeletal: Denies arthralgias, Denies joint swelling and Denies numbness Integumentary/Breasts: Skin/Breast: Denies pruritus and Denies rash Neurologic: Denies dizziness, Denies syncope, Denies loss of vision and Denies numbness Psychiatric: Psychiatric: Denies anxiety and Denies depression Endocrine: Endocrine: Denies cold intolerance, Denies heat intolerance and Denies palpitations Hematologic/Lymphatic: Hematologic/Lymphatic: Denies easy bleeding and Denies easy bruising Allergic/Immunologic: Allergic/Immunologic: Denies urticaria and Denies wheezing PMFSH Past Medical History Medical History GERD (gastroesophageal reflux disease) Hypertension End stage renal disease Social History Social History Smoking status: Current every day smoker Tobacco type: cigarettes Second hand tobacco smoke exposure: Yes Alcohol intake: current Drinks per week: 1 Substance use: never Substance use type: does not use Do You Feel Safe in your Home?: Yes Lack of Transportation: YES Lack of Food: Sometimes True Current Housing: I Have Housing Concerned About Future Housing: No Difficulty Paying Gas/Electric Bills: No Difficulty Paying for Meds: No Currently Unemployed: No Education: Decline to Answer Difficulty w/ Childcare or Family Care: No Spiritual care concerns: No Meds Home Medications and Allergies Home Medications ?Medication ?Instructions ?Recorded ?Confirmed ?Type acetaminophen 500 mg capsule 500 mg PO Q6H PRN pain 03/12/24 03/12/24 History amlodipine 10 mg tablet 10 mg PO DAILY 03/12/24 03/12/24 History famotidine 20 mg tablet 20 mg PO DAILY 03/12/24 03/12/24 History finasteride 5 mg tablet 5 mg PO DAILY 03/12/24 03/12/24 History glycerin (adult) 1 supp RECTAL PRN 03/12/24 03/12/24 History metoprolol tartrate 25 mg tablet 25 mg PO BID 03/12/24 03/12/24 History pantoprazole 40 mg tablet,delayed 40 mg PO DAILY 03/12/24 03/12/24 History release tamsulosin 0.4 mg capsule 0.4 mg PO HS 03/12/24 03/12/24 History tramadol 50 mg tablet 50 mg PO BID PRN pain 03/12/24 03/12/24 History Allergies Allergy/AdvReac Type Severity Reaction Status Date / Time lisinopril Allergy Intermediate Itching Verified 03/11/24 16:21 Vital Signs Vital Signs - 24 hr 03/12/24 15:21 03/12/24 16:00 03/12/24 20:00 Temperature 36.7 C Pulse Rate 79 79 86 Respiratory Rate 18 20 Blood Pressure 151/89 H Pulse Oximetry 100 100 Oxygen Delivery Room Air Oxygen Flow Rate Fraction of Inspired Oxygen 03/12/24 20:00 03/12/24 20:10 03/12/24 20:30 Temperature 36.7 C Pulse Rate 81 86 86 Respiratory Rate 20 Blood Pressure 138/80 Pulse Oximetry 100 Oxygen Delivery Oxygen Flow Rate Fraction of Inspired Oxygen 03/13/24 00:00 03/13/24 04:00 03/13/24 04:58 Temperature 36.4 C L Pulse Rate 62 74 74 Respiratory Rate 20 Blood Pressure 130/70 Pulse Oximetry 100 Oxygen Delivery Oxygen Flow Rate Fraction of Inspired Oxygen 03/13/24 08:00 03/13/24 08:00 03/13/24 10:27 Temperature Pulse Rate 74 74 Respiratory Rate 20 Blood Pressure Pulse Oximetry 100 Oxygen Delivery Room Air Oxygen Flow Rate 0 Fraction of Inspired Oxygen 0 03/13/24 10:27 03/13/24 10:38 03/13/24 10:45 Temperature 36.8 C Pulse Rate 43 L 48 L 40 L Respiratory Rate 17 Blood Pressure 158/80 H 129/83 138/77 Pulse Oximetry 100 Oxygen Delivery Oxygen Flow Rate Fraction of Inspired Oxygen 03/13/24 11:00 03/13/24 11:15 03/13/24 11:30 Temperature Pulse Rate 55 L 55 L 82 Respiratory Rate Blood Pressure 121/76 119/84 110/73 Pulse Oximetry Oxygen Delivery Oxygen Flow Rate Fraction of Inspired Oxygen 03/13/24 11:45 03/13/24 12:00 03/13/24 12:15 Temperature Pulse Rate 76 80 83 Respiratory Rate Blood Pressure 111/64 102/75 114/81 Pulse Oximetry Oxygen Delivery Oxygen Flow Rate Fraction of Inspired Oxygen 03/13/24 12:30 03/13/24 12:45 03/13/24 13:00 Temperature Pulse Rate 92 85 90 Respiratory Rate Blood Pressure 134/76 116/85 115/85 Pulse Oximetry Oxygen Delivery Oxygen Flow Rate Fraction of Inspired Oxygen 03/13/24 13:15 03/13/24 13:30 Temperature Pulse Rate 57 L 88 Respiratory Rate Blood Pressure 111/68 105/86 Pulse Oximetry Oxygen Delivery Oxygen Flow Rate Fraction of Inspired Oxygen Exam 2 Const: General: cooperative, comfortable, no acute distress, alert, awake and well nourished Nutritional Appearance: well nourished O rientation/consciousness: patient oriented x3 HENMT: Head: normal to inspection, normocephalic and atraumatic Ears: h earing grossly normal bilaterally Face/Nose/Sinus: Normal external nose present, Normal nares present, no nasal discharge noted, normal facial exam and No erythema Face and sinus: normal facial exam and no erythema Mouth: No drooling and No restricted motion Throat: uvula midline Eyes: General: appearance normal, both eyes and all related structures A lignment and Position: position normal Conjunctivae: conjunctivae normal S clera: sclerae normal Direct Ophthalmoscopy: No photophobia Neck: Neck: normal visual inspection and no JVD Thyroid: thyroid normal Carotids: no bruits Lymphatic: lymphedema not noted Chest: Chest palpation & inspection: normal inspection of the chest and no tenderness Resp: Effort & Inspection: normal respiratory effort and no nasal flaring A uscultation: clear to auscultation bilaterally, no crackles, no rales and no wheezes Cardio: Jugular venous distension: no JVD Rate: regular rate Rhythm: r egular rhythm Heart sounds: S1 normal heart sound present, S2 normal heart sound present, no gallops, no murmurs and no rubs GI: Inspection: non-distended GI Palp: No abdominal tenderness and No Soft to palpation Auscultation: normal bowel sounds Rectal Exam: deferred : General: No no CVA tenderness Back/Spine/Pelvis: Back: No no CVA tenderness Cervical Spine: cervical ROM normal Skin: General skin exam: normal color and rashes and/or lesions noted Neuro: General: patient oriented x3 Cranial nerves: No CN's II-XII intact bilaterally Speech: normal speech Motor exam (neuro): no tremors Extrem: General: normal to inspection and pedal edema present Psych: Appearance: grossly normal and well kempt Speech and movement: N ormal speech and movement present Affect: normal affect Results Labs and Meds 03/13/24 05:38 03/13/24 05:38 Lab results: Cardiac Enzymes 03/13/24 Range/Units 05:38 AST 18 (17-59) U/L CBC 03/13/24 Range/Units 05:38 WBC 9.4 (4.5-10.0) K/mm3 RBC 3.88 L (4.6-6.20) M/mm3 Hgb 12.0 L (14.0-18.0) g/dL Hct 36.9 L (42.0-52.0) % Plt Count 215 (150-375) k/mm3 Lymph # (Auto) 3.78 H (0.9-3.2) K/mm3 [place] # (Auto) 0.9 H (0.1-0.6) K/mm3 Eos # (Auto) 0.3 (0-0.3) K/mm3 Baso # (Auto) 0.1 (0.0-0.1) K/mm3 Comprehensive Metabolic Panel 03/13/24 Range/Units 05:38 Sodium 133 L (137-145) mmol/L Potassium 4.2 (3.4-5.0) mmol/L Chloride 97 L (98-107) mmol/L Carbon Dioxide 24 (22-30) mmol/L BUN 33 H D (9-20) mg/dL Creatinine 10.05 H (0.7-1.3) mg/dL Glucose 80 (65-110) mg/dL Calcium 8.3 L (8.4-10.2) mg/dL AST 18 (17-59) U/L ALT 9 (6-50) U/L Alkaline Phosphatase 63 (38-126) U/L Total Protein 7.0 (6.3-8.2) g/dL Albumin 3.7 (3.5-5.1) g/dL Intake and Output 03/12/24 03/13/24 03/13/24 23:59 07:59 15:59 Intake Total 560 100 240 Output Total 300 200 Balance 260 -100 240 Intake: Oral 560 100 240 Output: Catheter Urine 300 200 Urethral Catheter 300 200 Other: Number of Bowel Movements Today 2 Patient Weight 03/13/24 23:59 Weight 66.4 kg
[2024-03-13] MEDS: TAMSULOSIN HCL 0.4 MG CAPSULE PO (20:58)
[2024-03-13] MEDS: METOPROLOL TARTRATE 25 MG TABLET PO (20:58)
[2024-03-14] VITALS (11 sets, daily range): BP systolic 132–134; BP diastolic 76–89; PULSE 52–96; RESP 16–20; TEMP 36.6–37.3; O2SAT 99–100
--- NOTE | 2024-03-14 | ECHO_ITS ---
Patient Info Name: Niesha Ceja Age: 68 years : 1955 Gender: Male Ht: 72 in Wt: 141 lbs BSA: 1.79 m2 HR: 70 bpm BP: 134 / 89 mmHg Heart Rhythm: Sinus Rhythm Technical Quality: Fair Exam Date: 03/14/2024 7:40 AM Exam Location: Echo Lab Patient Status: Inpatient Admit Date: 03/11/2024 Staff Ordering Physician: Kiersten Mtz PA-C Manager Fine: Monalisa Harris RDCS Attending Provider: Kiersten Mtz PA-C Referring Physician: Smith MEHTA; Exam Type: CA echo doppler color flow Study Info Indications R00.1 - Bradycardia, unspecified Complete two-dimensional, color flow and Doppler transthoracic echocardiogram is performed. Summary 1. Complete two-dimensional, color flow and Doppler transthoracic echocardiogram is performed. 2. Left ventricular chamber dimension is normal. 3. Left ventricular systolic function is normal, estimated at 55-60%. 4. There is mildly increased left ventricular wall thickness. 5. The left ventricular diastolic function is grade I diastolic dysfunction. 6. Right ventricular systolic function is normal. 7. There is moderate anterior pericardial effusion. No echocardiographic evidence of tamponade. 8. No significant valvular disease. Left Ventricle Left ventricular chamber dimension is normal. Left ventricular systolic function is normal, estimated at 55-60%. There is mildly increased left ventricular wall thickness. The left ventricular diastolic function is grade I diastolic dysfunction. Right Ventricle Right ventricular chamber dimension is normal. Right ventricular systolic function is normal. Left Atria Left atrial chamber dimension is normal. Right Atria Right atrial chamber dimension is normal. Atrial Septum Intact interatrial septum visualized by color flow imaging. Aortic Valve The aortic valve is probable trileaflet. There is no aortic valve stenosis. There is no aortic valve regurgitation. Pulmonic Valve The pulmonic valve is not well visualized. Mitral Valve There is trace mitral valve regurgitation. The mitral valve annulus is mildly calcified. Tricuspid Valve There is trace tricuspid valve regurgitation. Pericardium/Pleural There is moderate anterior pericardial effusion. No echocardiographic evidence of tamponade. Inferior Vena Cava Normal inferior vena cava with >50% collapse upon inspiration consistent with normal right atrial pressure, 3 mmHg. Aorta The aortic root size at the sinus of Valsalva is normal. Left Ventricular Outflow Tract Name Value Normal LVOT 2D LVOT Diameter 2.0 cm LVOT Doppler LVOT Peak Gradient 2 mmHg LVOT Mean Gradient 1 mmHg LVOT VTI 10 cm LVOT VTI/AV VTI Ratio 0.5 LVOT Stroke Volume 29 ml LVOT CO 2.1 l/min LVOT CI 1.2 l/min/m2 Pulmonic Valve Name Value Normal RVOT Doppler RVOT Peak Gradient 1 mmHg PV Doppler PV Peak Gradient 2 mmHg Mitral Valve Name Value Normal MV Doppler MV Decel Banner 175 cm/s2 MV PHT 89 ms MV Area (PHT) 2.5 cm2 4.0-5.0 MV Diastolic Function MV E Peak Velocity 54 cm/s MV A Peak Velocity 83 cm/s MV E/A 0.7 MV Decel Time 308 ms MV Annular TDI MV E/e' (Septal) 10.7 <=8.0 MV E/e' (Lateral) 7.1 <=8.0 MV E/e' (Average) 8.9 Tricuspid Valve Name Value Normal Estimated PAP/RSVP RA Pressure 3 mmHg <=5 Aorta Name Value Normal Ascending Aorta Ao Root Diameter (MM) 3.2 cm Ao Root Diam Index (MM) 1.8 cm/m2 Aortic Valve Name Value Normal AV Doppler AV Peak Velocity 102 cm/s AV Peak Gradient 4 mmHg AV Mean Gradient 2 mmHg AV VTI 18 cm AV Area (Cont Eq VTI) 1.6 cm2 >=3.0 AV Area (Cont Eq Issa) 2.0 cm2 AV Regurgitation 2D LVOT Area 3.0 cm2 Ventricles Name Value Normal LV Dimensions 2D/MM IVS Diastolic Thickness (2D) 1.0 cm 0.6-1.0 LVID Diastole (2D) 4.2 cm 4.2-5.8 LVIW Diastolic Thickness (2D) 1.0 cm 0.6-1.0 LVID Systole (2D) 3.3 cm 2.5-4.0 LVOT Diameter 2.0 cm LV Mass (2D Cubed) 135.27 g 88.00-224.00 LV Mass Index (2D Cubed) 76 g/m2 49-115 Relative Wall Thickness (2D) 0.46 LV Fractional Shortening/Ejection Fraction 2D/MM LV Fractional Shortening (2D) 21 % 25-43 LV EF (2D Teicholz) 44 % 52-72 LV Diastolic Volume (4C MOD) 72 ml LV EF (4C MOD) 39 % LV Diastolic Volume (2C MOD) 28 ml LV EF (2C MOD) 54 % LV Diastolic Volume (BP MOD) 45 ml 62-150 LV Diastolic Volume Index (BP MOD) 25 ml/m2 34-74 LV Systolic Volume (BP MOD) 24 ml 21-61 LV Systolic Volume Index (BP MOD) 14 ml/m2 11-31 LV EF (BP MOD) 47 % 52-72 LV Diastolic Length (4C) 7.4 cm LV Systolic Length (4C) 6.5 cm LV Stroke Volume (4C MOD) 28 ml Atria Name Value Normal LA Dimensions LA Dimension (MM) 3.0 cm 3.0-4.1 LA Volume (4C A-L) 34 ml LA Volume (BP A-L) 29 ml RA Dimensions RA Area (4C) 11.1 cm2 <=18.0 Report Signatures
--- NOTE | 2024-03-14 | EST_ITS ---
Patient Info Name: Niesha Ceja Age: 68 years : 1955 Gender: Male Ht: 72 in Wt: 146 lbs BSA: 1.82 m2 HR: 62 bpm BP: 124 / 90 mmHg Exam Date: 03/14/2024 1:03 PM Exam Location: Echo Lab Patient Status: Outpatient Admit Date: 03/11/2024 Staff Ordering Physician: Kenya Jacobo MD Attending Provider: Kiersten Mtz PA-C Exercise Technologist: Monalisa Harris [facility] Nurse: Heide Selby APN Exam Type: CA stress tono w NM Study Info A regadenoson stress test was performed. Summary 1. No abnormal ST/T wave changes diagnostic of ischemia with Lexiscan. 2. Frequent PACs and PVCs. 3. Please correlate with nuclear medicine images, reported separately. 4. Stress test supervised by Heide Selby NP. Stress test interpreted by Roya Figueroa MD. Protocol: Lexiscan Stress ECG Details Stage: REST Duration (min): 1 min : 1 sec HR (bpm): 61 SBP (mmHg): 124 DBP (mmHg): 90 Stage: REST Duration (min): 6 min : 4 sec HR (bpm): 62 SBP (mmHg): 124 DBP (mmHg): 90 Stage: STAGE 1 Duration (min): 0 min : 59 sec HR (bpm): 83 SBP (mmHg): 152 DBP (mmHg): 93 Stage: RECOVERY Duration (min): 1 min : 0 sec HR (bpm): 105 SBP (mmHg): 152 DBP (mmHg): 93 Stage: RECOVERY Duration (min): 2 min : 0 sec HR (bpm): 103 SBP (mmHg): 152 DBP (mmHg): 93 Stage: RECOVERY Duration (min): 3 min : 0 sec HR (bpm): 97 SBP (mmHg): 118 DBP (mmHg): 90 Stage: RECOVERY Duration (min): 3 min : 33 sec HR (bpm): 93 SBP (mmHg): 118 DBP (mmHg): 90 Rest HR: 62 bpm Peak HR: 105 bpm Rest Sys BP: 124 mmHg Peak Sys BP: 152 mmHg Max Pred HR: 154 bpm % Max Pred HR: 68 % Target HR: 131 bpm Max RPP: 15,960 bpm*mmHg Total Time: 1 min : 0 sec Rest Dc BP: 90 mmHg Peak Dc BP: 93 mmHg Total Dose: 0.4 mg Resting ECG Sinus rhythm with frequent PACs and PVCs. Stress ECG No abnormal ST/T wave changes diagnostic of ischemia with Lexiscan. Arrhythmias Frequent PACs and PVCs. Report Signatures
[2024-03-14] MEDS: HYDROcodone/acetaminophen (*CRX) 5-325 MG TABLET 1 TAB PO ×3 (05:16→23:59)
[2024-03-14 06:24] LABS: Basophils Absolute Auto 0.1 K/mm3 (0.0-0.1); Basophils Percent Auto 0.7 % (0.2-1.2); Eosinophils Absolute Auto 0.2 K/mm3 (0-0.3); Eosinophils Percent Auto 2.6 % (0-4.4); Hematocrit 38.1 % (42.0-52.0); Hemoglobin 12.4 g/dL (14.0-18.0); Immature Granulocyte Absolute 0.03 K/mm3 (0.00-0.031); Immature Granulocyte Percent A 0.3 % (0-0.5); Lymphocytes Absolute Auto 3.02 K/mm3 (0.9-3.2); Lymphocytes Percent Auto 32.2 % (18.3-44.2); Mean Corpuscular HGB Conc 32.5 g/dl (32-36); Mean Corpuscular Hemoglobin 31.2 pg (26-34); Mean Corpuscular Volume 95.7 fl (80-100); Mean Platelet Volume 9.9 fl (7.4-10.4); Monocytes Absolute Auto 0.8 K/mm3 (0.1-0.6); Neutrophils Absolute Auto 5.2 K/mm3 (1.3-6.7); Neutrophils Percent Auto 55.2 % (45.5-73.1); Platelet Count Result 203 k/mm3 (150-375); Red Blood Count 3.98 M/mm3 (4.6-6.20); White Blood Count 9.4 K/mm3 (4.5-10.0)
[2024-03-14 07:16] LABS: Alanine Aminotransferase 10 U/L (6-50); Albumin Level 3.8 g/dL (3.5-5.1); Alkaline Phosphatase 64 U/L (38-126); Anion Gap 6 mmol/L (4-12); Aspartate Amino Transferase 19 U/L (17-59); Bilirubin,Total 0.4 mg/dL (0.2-1.3); Blood Urea Nitrogen 22 mg/dL (9-20); Calcium 8.6 mg/dL (8.4-10.2); Carbon Dioxide 33 mmol/L (22-30); Chloride 94 mmol/L (98-107); Estimated CRCL calculation 8 ml/min; Estimated Glomerular Filt Rate 9; Glucose 96 mg/dL (65-110); Potassium 4.1 mmol/L (3.4-5.0); Sodium 133 mmol/L (137-145)
--- NOTE | 2024-03-14 07:39 | PM.IMPN ---
Progress Note: A&P Assessment and Plan (1) Bradycardia: Code(s): R00.1 - Bradycardia, unspecified Status: Acute Assessment and Plan: Patient with irregular heart rate, noted to drop into the 30s overnight. Remained asymptomatic. Per patient he follows a disintegrator in [facility]. Unsure what his disintegrator name is or why he follows with him. Patient had a court monitor 2 months ago but is unsure of the results. - EKG sinus rhythm HR 62 - Tele monitor, remains in regular rhythm with irregular rate - Echo obtained, results pending - Cardiology consulted, appreciate recommendations Recommend echo to assess cardiac function Lexiscan stress test recommended as patient is on HD and at higher risk of CAD and has frequent PVCs (2) Volume overload: Qualifiers: Hypervolemia type: unspecified Qualified Code(s): E87.70 - Fluid overload, unspecified Code(s): E87.70 - Fluid overload, unspecified Status: Acute Assessment and Plan: Patient endorsing shortness of breath with exertion after missing dialysis for the past week. - Lasix 40 mg IV x1 in the ED - Chest XR: no acute cardiopulmonary pathology - Plan for patient to receive dialysis during admission (3) ESRD on dialysis: Code(s): N18.6 - End stage renal disease; Z99.2 - Dependence on renal dialysis Status: Acute Assessment and Plan: ESRD on HD MWF. Reports missing his dialysis appointments for the past week due to weather condition. BUN/Cr 64/16.41 on admission - BUN/Cr 22/7.42 on am labs - Avoid nephrotoxic medications - Renally dose medications - Monitor I/O - Nephrology consult for dialysis s/p HD 03/12 removed 3L s/p HD 03/13 plan for dialysis tomorrow to remain on schedule (4) Hyperkalemia: Code(s): E87.5 - Hyperkalemia Status: Acute Assessment and Plan: K 5.5 on admission secondary to missing dialysis - Lokelma 10 mg x2 given in the ED - EKG sinus rhythm HR 64 - K 4.1 on am labs - Continue telemetry - Continue to monitor with CMP - Nephrology consulted for dialysis treatment s/p 2 K bath with dialysis on 03/13 (5) Hypertension: Code(s): I10 - Essential (primary) hypertension Status: Acute Assessment and Plan: Chronic, continue home medications - amlodipine 10 mg daily - metoprolol 25 mg BID - blood pressure is stable, continue to monitor (6) Metabolic acidosis: Code(s): E87.20 - Acidosis, unspecified Status: Acute Assessment and Plan: Likely secondary to missed dialysis Bicarb 24 on am labs Continue to monitor (7) Anemia: Code(s): D64.9 - Anemia, unspecified Status: Acute Assessment and Plan: Likely secondary to ESRD, per nephrology Hemoglobin is low but too high to give PARISA right now. No signs of active bleeding. - Iron panel WNL - B12 235, started on supplementation - Folate WNL - Monitor Time Spent With Patient Time with patient: 25 - 35 minutes Subjective Date/time seen: 03/14/24 07:39 Interval history: 68 year old male with past medical history of GERD, HTN and ESRD on HD MWF presents to the hospital for shortness of breath with exertion after missing his dialysis appointments for the past week due to weather condition. Patient is pleasant lying comfortably in his bed. He has no complaints denying chest pain, shortness of breath, palpitations, nausea/vomiting and abdominal pain. Review of Systems Review of Systems: All systems reviewed & are unremarkable except as noted in HPI and below Exam Narrative: AF HR 70 RR 20 Spo2 100 BP 134/89 General: male in no acute respiratory distress who is nontoxic appearing, lying semi recumbent in bed. HEENT: Normocephalic. Atraumatic. Extraocular movement intact. Sclera clear and anicteric. No facial asymmetry. Chest: Lungs are clear to auscultation bilaterally. No wheezes or crackles. CV: Heart was regular rate and rhythm. S1/S2. No murmurs, gallops, or rubs. Abd: Abdomen was soft. Nontender. Nondistended. Positive bowel sounds. No organomegaly or masses. Ext: No clubbing, cyanosis, or edema. 2+ DP pulses bilaterally. Neuro: Patient is alert. Speech is clear. Objective Data Vital Signs Vital Signs: Vital Signs - 24 hr 03/13/24 08:00 03/13/24 08:00 03/13/24 10:27 Temperature Pulse Rate 74 74 Respiratory Rate 20 Blood Pressure Pulse Oximetry 100 Oxygen Delivery Room Air Oxygen Flow Rate 0 Fraction of Inspired Oxygen 0 03/13/24 10:27 03/13/24 10:38 03/13/24 10:45 Temperature 98.2 F Pulse Rate 43 L 48 L 40 L Respiratory Rate 17 Blood Pressure 158/80 H 129/83 138/77 Pulse Oximetry 100 Oxygen Delivery Oxygen Flow Rate Fraction of Inspired Oxygen 03/13/24 11:00 03/13/24 11:15 03/13/24 11:30 Temperature Pulse Rate 55 L 55 L 82 Respiratory Rate Blood Pressure 121/76 119/84 110/73 Pulse Oximetry Oxygen Delivery Oxygen Flow Rate Fraction of Inspired Oxygen 03/13/24 11:45 03/13/24 12:00 03/13/24 12:00 Temperature Pulse Rate 76 80 65 Respiratory Rate Blood Pressure 111/64 102/75 Pulse Oximetry Oxygen Delivery Oxygen Flow Rate Fraction of Inspired Oxygen 03/13/24 12:15 03/13/24 12:26 03/13/24 12:30 Temperature 98 F Pulse Rate 83 45 L 92 Respiratory Rate 16 Blood Pressure 114/81 120/67 134/76 Pulse Oximetry 100 Oxygen Delivery Oxygen Flow Rate Fraction of Inspired Oxygen 03/13/24 12:45 03/13/24 13:00 03/13/24 13:15 Temperature Pulse Rate 85 90 57 L Respiratory Rate Blood Pressure 116/85 115/85 111/68 Pulse Oximetry Oxygen Delivery Oxygen Flow Rate Fraction of Inspired Oxygen 03/13/24 13:30 03/13/24 13:45 03/13/24 14:00 Temperature 98.7 F Pulse Rate 88 48 L 49 L Respiratory Rate 16 Blood Pressure 105/86 128/79 88/57 L Pulse Oximetry 100 Oxygen Delivery Oxygen Flow Rate Fraction of Inspired Oxygen 03/13/24 14:00 03/13/24 14:10 03/13/24 20:00 Temperature Pulse Rate 60 42 L 69 Respiratory Rate 20 Blood Pressure 131/88 132/78 Pulse Oximetry 99 Oxygen Delivery Room Air Oxygen Flow Rate Fraction of Inspired Oxygen 0 03/13/24 20:00 03/13/24 20:55 03/13/24 20:58 Temperature 97.9 F Pulse Rate 59 L 69 69 Respiratory Rate 20 Blood Pressure 101/60 Pulse Oximetry 99 Oxygen Delivery Oxygen Flow Rate Fraction of Inspired Oxygen 03/14/24 00:00 03/14/24 04:00 03/14/24 05:09 Temperature 98.2 F Pulse Rate 73 66 70 Respiratory Rate 20 Blood Pressure 134/89 Pulse Oximetry 100 Oxygen Delivery Oxygen Flow Rate Fraction of Inspired Oxygen Intake/Output Intake/Output: Intake & Output 03/11/24 03/12/24 03/13/24 03/14/24 23:59 23:59 23:59 23:59 Intake Total 1030 1300 200 Output Total 3142 1800 150 Balance -2112 -500 50 Meds/Results Medications: Active Medications Generic Name Dose Route Start Last Admin Trade Name Freq PRN Reason Stop Dose Admin Acetaminophen 650 mg 03/11/24 19:00 Acetaminophen 325 Mg Tablet PO Q4H PRN Mild Pain (1-3) or Fever Acetaminophen 500 mg 03/12/24 13:50 03/13/24 06:21 Acetaminophen 500 Mg Tablet PO 500 mg Q6H PRN Administration PAIN RATED 1-3 Hydrocodone Bitart/Acetaminophen 1 tab 03/11/24 19:00 03/14/24 05:16 Hydrocodone/Acetaminophen (*Crx) 5-325 Mg Tablet PO 1 tab Q4H PRN Administration Pain Rated 4-6 Amlodipine Besylate 10 mg 03/13/24 09:00 03/13/24 18:59 Amlodipine Besylate 10 Mg Tablet PO Not Given DAILY ANDER Cyanocobalamin 250 mcg 03/14/24 09:00 Cyanocobalamin 250 Mcg Tablet PO QAM ANDER Famotidine 20 mg 03/13/24 09:00 03/13/24 18:59 Famotidine 20 Mg Tablet PO Not Given DAILY ANDER Finasteride 5 mg 03/13/24 09:00 03/13/24 18:59 Finasteride 5 Mg Tablet PO Not Given DAILY ANDER Metoprolol Tartrate 25 mg 03/12/24 21:00 03/13/24 20:58 Metoprolol Tartrate 25 Mg Tablet PO 25 mg Q12HR ANDER Administration Ondansetron HCl 4 mg 03/11/24 19:00 Ondansetron Inj 4 Mg/2 Ml Vial IV PUSH Q4H PRN Nausea Pantoprazole Sodium 40 mg 03/13/24 09:00 03/13/24 19:00 Pantoprazole 40 Mg Tablet PO Not Given DAILY ANDER Perflutren Lipid Microsphere 0 ml 03/13/24 14:43 Perflutren Lipid Microspheres 1.5 Ml Vial Diluted To 10 Ml Total Volume IV PUSH 03/16/24 14:43 ONCE PRN adequate visualization Protocol Tamsulosin HCl 0.4 mg 03/12/24 21:00 03/13/24 20:58 Tamsulosin Hcl 0.4 Mg Capsule PO 0.4 mg HS ANDER Administration Radiology Results: ITS Impressions Chest X-Ray 03/11/24 16:00 IMPRESSION: No acute cardiopulmonary pathology. Labs Labs: Laboratory Results - last 24 hr 03/13/24 03/14/24 05:38 05:48 WBC 9.4 RBC 3.98 L Hgb 12.4 L Hct 38.1 L MCV 95.7 MCH 31.2 MCHC 32.5 RDW 14.0 Plt Count 203 MPV 9.9 Immature Gran % (Auto) 0.3 Neut % (Auto) 55.2 Lymph % (Auto) 32.2 [place] % (Auto) 9.0 H Eos % (Auto) 2.6 Baso % (Auto) 0.7 Lymph # (Auto) 3.02 [place] # (Auto) 0.8 H Eos # (Auto) 0.2 Baso # (Auto) 0.1 Abs Immat Gran (auto) 0.03 Absolute Neuts (auto) 5.2 Absolute Nucleated RBC 0.000 Nucleated RBC % 0.0 Sodium 133 L Potassium 4.1 Chloride 94 L Carbon Dioxide 33 H Anion Gap 6 BUN 22 H D Creatinine 7.42 H Estim Creat Clear Calc 8 Estimated GFR 9 L Glucose 96 Calcium 8.6 Phosphorus 5.6 H Total Bilirubin 0.4 AST 19 ALT 10 Alkaline Phosphatase 64 Total Protein 7.0 Albumin 3.8 Quality VTE Prophylaxis VTE prophylaxis: mechanical ordered
--- NOTE | 2024-03-14 10:01 | P.PNNP_ITS ---
Progress Note: A&P Assessment and Plan (1) ESRD on dialysis: Code(s): N18.6 - End stage renal disease; Z99.2 - Dependence on renal dialysis Status: Acute Assessment and Plan: * ESRD * Hyperkalemia * Volume overload * Missed dialysis * Anemia of CKD * Hypertensive renal disease Plan: Patient was bradycardic yesterday. He does see a electric meter tester helper at [place] echocardiogram ordered. This is pending. If still in-house tomorrow can be dialyzed here. He is on a Wednesday, Wednesday, Wednesday dialysis schedule. Subjective Date/time seen: 03/14/24 10:01 Interval history: ESRD follow up Missed a number of treatments Had acidosis, hyperkalemia, volume overload Had dialysis yesterday, which was a 2nd session Had bradycardic events yesterday. Asymptomatic Exam Const: General: comfortable and no acute distress Eyes: General: appearance normal, both eyes and all related structures Neck: Neck: supple and no JVD Resp: Effort & Inspection: normal respiratory effort Auscultation: clear to auscultation bilaterally GI: GI Palp: Yes Soft to palpation Other: no masses, non tender Neuro: Other: alert. orinted x 3 Extrem: Other: no edema, no cyaNOSIS Psych: Affect: normal affect Other: Is at baseline Objective Data Vital Signs Vital Signs: Vital Signs - 24 hr 03/13/24 10:27 03/13/24 10:27 03/13/24 10:38 Temperature 36.8 C Pulse Rate 43 L 48 L Respiratory Rate 17 Blood Pressure 158/80 H 129/83 Pulse Oximetry 100 Oxygen Delivery Oxygen Flow Rate 0 Fraction of Inspired Oxygen 0 03/13/24 10:45 03/13/24 11:00 03/13/24 11:15 Temperature Pulse Rate 40 L 55 L 55 L Respiratory Rate Blood Pressure 138/77 121/76 119/84 Pulse Oximetry Oxygen Delivery Oxygen Flow Rate Fraction of Inspired Oxygen 03/13/24 11:30 03/13/24 11:45 03/13/24 12:00 Temperature Pulse Rate 82 76 80 Respiratory Rate Blood Pressure 110/73 111/64 102/75 Pulse Oximetry Oxygen Delivery Oxygen Flow Rate Fraction of Inspired Oxygen 03/13/24 12:00 03/13/24 12:15 03/13/24 12:26 Temperature 36.6 C Pulse Rate 65 83 45 L Respiratory Rate 16 Blood Pressure 114/81 120/67 Pulse Oximetry 100 Oxygen Delivery Oxygen Flow Rate Fraction of Inspired Oxygen 03/13/24 12:30 03/13/24 12:45 03/13/24 13:00 Temperature Pulse Rate 92 85 90 Respiratory Rate Blood Pressure 134/76 116/85 115/85 Pulse Oximetry Oxygen Delivery Oxygen Flow Rate Fraction of Inspired Oxygen 03/13/24 13:15 03/13/24 13:30 03/13/24 13:45 Temperature Pulse Rate 57 L 88 48 L Respiratory Rate Blood Pressure 111/68 105/86 128/79 Pulse Oximetry Oxygen Delivery Oxygen Flow Rate Fraction of Inspired Oxygen 03/13/24 14:00 03/13/24 14:00 03/13/24 14:10 Temperature 37.1 C Pulse Rate 49 L 60 42 L Respiratory Rate 16 Blood Pressure 88/57 L 131/88 132/78 Pulse Oximetry 100 Oxygen Delivery Oxygen Flow Rate Fraction of Inspired Oxygen 03/13/24 20:00 03/13/24 20:00 03/13/24 20:55 Temperature 36.6 C Pulse Rate 69 59 L 69 Respiratory Rate 20 20 Blood Pressure 101/60 Pulse Oximetry 99 99 Oxygen Delivery Room Air Oxygen Flow Rate Fraction of Inspired Oxygen 0 03/13/24 20:58 03/14/24 00:00 03/14/24 04:00 Temperature Pulse Rate 69 73 66 Respiratory Rate Blood Pressure Pulse Oximetry Oxygen Delivery Oxygen Flow Rate Fraction of Inspired Oxygen 03/14/24 05:09 Temperature 36.8 C Pulse Rate 70 Respiratory Rate 20 Blood Pressure 134/89 Pulse Oximetry 100 Oxygen Delivery Oxygen Flow Rate Fraction of Inspired Oxygen Intake/Output Intake/Output: Intake & Output 03/11/24 03/12/24 03/13/24 03/14/24 23:59 23:59 23:59 23:59 Intake Total 1030 1300 200 Output Total 3142 1800 150 Balance -2112 -500 50 Meds/Results Medications: Active Medications Generic Name Dose Route Start Last Admin Trade Name Freq PRN Reason Stop Dose Admin Acetaminophen 650 mg 03/11/24 19:00 Acetaminophen 325 Mg Tablet PO Q4H PRN Mild Pain (1-3) or Fever Acetaminophen 500 mg 03/12/24 13:50 03/13/24 06:21 Acetaminophen 500 Mg Tablet PO 500 mg Q6H PRN Administration PAIN RATED 1-3 Hydrocodone Bitart/Acetaminophen 1 tab 03/11/24 19:00 03/14/24 05:16 Hydrocodone/Acetaminophen (*Crx) 5-325 Mg Tablet PO 1 tab Q4H PRN Administration Pain Rated 4-6 Amlodipine Besylate 10 mg 03/13/24 09:00 03/13/24 18:59 Amlodipine Besylate 10 Mg Tablet PO Not Given DAILY [facility] Cyanocobalamin 250 mcg 03/14/24 09:00 Cyanocobalamin 250 Mcg Tablet PO QAM [facility] Famotidine 20 mg 03/13/24 09:00 03/13/24 18:59 Famotidine 20 Mg Tablet PO Not Given DAILY [facility] Finasteride 5 mg 03/13/24 09:00 03/13/24 18:59 Finasteride 5 Mg Tablet PO Not Given DAILY [facility] Metoprolol Tartrate 25 mg 03/12/24 21:00 03/13/24 20:58 Metoprolol Tartrate 25 Mg Tablet PO 25 mg Q12HR ANDER Administration Ondansetron HCl 4 mg 03/11/24 19:00 Ondansetron Inj 4 Mg/2 Ml Vial IV PUSH Q4H PRN Nausea Pantoprazole Sodium 40 mg 03/13/24 09:00 03/13/24 19:00 Pantoprazole 40 Mg Tablet PO Not Given DAILY ANDER Perflutren Lipid Microsphere 0 ml 03/13/24 14:43 Perflutren Lipid Microspheres 1.5 Ml Vial Diluted To 10 Ml Total Volume IV PUSH 03/16/24 14:43 ONCE PRN adequate visualization Protocol Tamsulosin HCl 0.4 mg 03/12/24 21:00 03/13/24 20:58 Tamsulosin Hcl 0.4 Mg Capsule PO 0.4 mg HS ANDER Administration Radiology Results: ITS Impressions Chest X-Ray 03/11/24 16:00 IMPRESSION: No acute cardiopulmonary pathology. Labs Labs: Laboratory Results - last 24 hr 03/14/24 05:48 WBC 9.4 RBC 3.98 L Hgb 12.4 L Hct 38.1 L MCV 95.7 MCH 31.2 MCHC 32.5 RDW 14.0 Plt Count 203 MPV 9.9 Immature Gran % (Auto) 0.3 Neut % (Auto) 55.2 Lymph % (Auto) 32.2 [place] % (Auto) 9.0 H Eos % (Auto) 2.6 Baso % (Auto) 0.7 Lymph # (Auto) 3.02 [place] # (Auto) 0.8 H Eos # (Auto) 0.2 Baso # (Auto) 0.1 Abs Immat Gran (auto) 0.03 Absolute Neuts (auto) 5.2 Absolute Nucleated RBC 0.000 Nucleated RBC % 0.0 Sodium 133 L Potassium 4.1 Chloride 94 L Carbon Dioxide 33 H Anion Gap 6 BUN 22 H D Creatinine 7.42 H Estim Creat Clear Calc 8 Estimated GFR 9 L Glucose 96 Calcium 8.6 Total Bilirubin 0.4 AST 19 ALT 10 Alkaline Phosphatase 64 Total Protein 7.0 Albumin 3.8
--- NOTE | 2024-03-14 11:50 | PC.NURSE ---
Pt if off the floor for stress test
--- NOTE | 2024-03-14 13:45 | PC.NURSE ---
Pt returned to the floor
[2024-03-14] MEDS: METOPROLOL TARTRATE 25 MG TABLET PO ×2 (14:06→22:06)
[2024-03-14] MEDS: amLODIPine BESYLATE 10 MG TABLET PO (14:06)
[2024-03-14] MEDS: FAMOTIDINE 20 MG TABLET PO (14:06)
[2024-03-14] MEDS: FINASTERIDE 5 MG TABLET PO (14:06)
[2024-03-14] MEDS: PANTOPRAZOLE 40 MG TABLET PO (14:06)
[2024-03-14] MEDS: CYANOCOBALAMIN 250 MCG TABLET PO (14:07)
--- NOTE | 2024-03-14 14:28 | P.PNCA_ITS ---
Progress Note: A&P Assessment and Plan (1) Bradycardia: Code(s): R00.1 - Bradycardia, unspecified Status: Acute (2) PVCs (premature ventricular contractions): Code(s): I49.3 - Ventricular premature depolarization Status: Acute (3) PAC (premature atrial contraction): Code(s): I49.1 - Atrial premature depolarization Status: Acute (4) Hypertension: Code(s): I10 - Essential (primary) hypertension Status: Acute (5) ESRD on dialysis: Code(s): N18.6 - End stage renal disease; Z99.2 - Dependence on renal dialysis Status: Acute Plan -in regards to PVCs and PACs, recommend to check an echocardiogram to assess cardiac structure and function. Echocardiogram showed normal LV function with g rade I diastolic dysfunction. He does have a moderate pericardial effusion with no evidence of tamponade; he is hemodynamically stable. Because dialysis patient is at higher risk for CAD and given frequent PVCs Lexiscan stress test was performed and did not show any ischemia. -regards to sinus bradycardia, fairly asymptomatic. He takes metoprolol 25 mg b.i.d.. Recommend to continue metoprolol given frequent PACs and PVCs. -Rigorous hypertension controlled. Continue amlodipine and metoprolol. -Cardiology will sign off please call with any questions. Subjective Date/time seen: 03/14/24 14:28 Interval history: Cardiology follow up for bradycardia Feels well today and has no active complaints. He did have some abdominal discomfort during lexiscan stress test. Review of Systems Constitutional: Constitutional: Denies chills, Denies fever(s) and Denies poor appetite Eyes: Eyes: Denies eye discharge, Denies loss of vision, Denies eye pain and Denies photophobia ENT: Denies dizziness, Denies epistaxis, Denies nasal congestion and Denies sore throat Cardiovascular: Cardiovascular: Denies chest pain, Denies syncope, Denies pedal edema, Denies leg edema, Denies palpitations, Reports dyspnea and Reports dyspnea on exertion Respiratory: Respiratory: Denies cough, Reports dyspnea, Reports dyspnea on exertion and Denies wheezing Gastrointestinal: Gastrointestinal: Denies abdominal pain, Denies diarrhea, Denies nausea and Denies vomiting Genitourinary: Genitourinary: Denies hematuria, Denies genital lesions and Denies dysuria Musculoskeletal: Musculoskeletal: Denies arthralgias, Denies joint swelling and Denies numbness Integumentary/Breasts: Skin/Breast: Denies pruritus and Denies rash Neurologic: Denies dizziness, Denies syncope, Denies loss of vision and Denies numbness Psychiatric: Psychiatric: Denies anxiety and Denies depression Endocrine: Endocrine: Denies cold intolerance, Denies heat intolerance and Denies palpitations Hematologic/Lymphatic: Hematologic/Lymphatic: Denies easy bleeding and Denies easy bruising Allergic/Immunologic: Allergic/Immunologic: Denies urticaria and Denies wheezing Exam Const: General: cooperative, comfortable, no acute distress, alert, awake and well nourished Nutritional Appearance: well nourished Orientation/consciousness: patient oriented x3 HENMT: Head: normal to inspection, normocephalic and atraumatic Ears: hearing grossly normal bilaterally Face/Nose/Sinus: Normal external nose pr esent, Normal nares present, no nasal discharge noted, normal facial exam and No erythema Face and sinus: normal facial exam and no erythema Mouth: No drooling and No restricted motion Throat: uvula midline Eyes: General: appearance normal, both eyes and all related structures Alignment and Position: position normal Conjunctivae: conjunctivae normal Sclera: sclerae normal Direct Ophthalmoscopy: No photophobia Neck: Neck: normal visual inspection and no JVD Thyroid: thyroid normal Carotids: no bruits Lymphatic: lymphedema not noted Chest: Chest palpation & inspection: normal inspection of the chest and no tenderness Resp: Effort & Inspection: normal respiratory effort and no nasal flaring Auscultation: clear to auscultation bilaterally, no crackles, no rales and no wheezes Cardio: Jugular venous distension: no JVD Rate: regular rate Rhythm: regular rhythm Heart sounds: S1 normal heart sound present, S2 normal heart sound present, no gallops, no murmurs and no rubs GI: Inspection: non-distended Auscultation: normal bowel sounds Rectal Exam: deferred : General: No no CVA tenderness Back/Spine/Pelvis: Back: No no CVA tenderness Cervical Spine: cervical ROM normal Skin: General skin exam: normal color and rashes and/or lesions noted Neuro: General: patient oriented x3 Cranial nerves: No CN's II-XII intact bilaterally Speech: normal speech Motor exam (neuro): no tremors Extrem: General: normal to inspection and pedal edema present Psych: Appearance: grossly normal and well kempt Speech and movement: Normal speech and movement present Affect: normal affect Objective Data Vital Signs Vital Signs: Vital Signs - 24 hr 03/13/24 20:00 03/13/24 20:00 03/13/24 20:55 Temperature 36.6 C Pulse Rate 69 59 L 69 Respiratory Rate 20 20 Blood Pressure 101/60 Pulse Oximetry 99 99 Oxygen Delivery Room Air Fraction of Inspired Oxygen 0 03/13/24 20:58 03/14/24 00:00 03/14/24 04:00 Temperature Pulse Rate 69 73 66 Respiratory Rate Blood Pressure Pulse Oximetry Oxygen Delivery Fraction of Inspired Oxygen 03/14/24 05:09 03/14/24 14:06 Temperature 36.8 C Pulse Rate 70 72 Respiratory Rate 20 Blood Pressure 134/89 Pulse Oximetry 100 Oxygen Delivery Fraction of Inspired Oxygen Intake/Output Intake/Output: Intake & Output 03/11/24 03/12/24 03/13/24 03/14/24 23:59 23:59 23:59 23:59 Intake Total 1030 1300 200 Output Total 3142 1800 150 Balance -2112 -500 50 Meds/Results Medications: Active Medications Generic Name Dose Route Start Last Admin Trade Name Freq PRN Reason Stop Dose Admin Acetaminophen 650 mg 03/11/24 19:00 Acetaminophen 325 Mg Tablet PO Q4H PRN Mild Pain (1-3) or Fever Acetaminophen 500 mg 03/12/24 13:50 03/13/24 06:21 Acetaminophen 500 Mg Tablet PO 500 mg Q6H PRN Administration PAIN RATED 1-3 Hydrocodone Bitart/Acetaminophen 1 tab 03/11/24 19:00 03/14/24 05:16 Hydrocodone/Acetaminophen (*Crx) 5-325 Mg Tablet PO 1 tab Q4H PRN Administration Pain Rated 4-6 Amlodipine Besylate 10 mg 03/13/24 09:00 03/14/24 14:06 Amlodipine Besylate 10 Mg Tablet PO 10 mg DAILY ANDER Administration Cyanocobalamin 250 mcg 03/14/24 09:00 03/14/24 14:07 Cyanocobalamin 250 Mcg Tablet PO 250 mcg QAM ANDER Administration Famotidine 20 mg 03/13/24 09:00 03/14/24 14:06 Famotidine 20 Mg Tablet PO 20 mg DAILY ANDER Administration Finasteride 5 mg 03/13/24 09:00 03/14/24 14:06 Finasteride 5 Mg Tablet PO 5 mg DAILY ANDER Administration Metoprolol Tartrate 25 mg 03/12/24 21:00 03/14/24 14:06 Metoprolol Tartrate 25 Mg Tablet PO 25 mg Q12HR ANDER Administration Ondansetron HCl 4 mg 03/11/24 19:00 Ondansetron Inj 4 Mg/2 Ml Vial IV PUSH Q4H PRN Nausea Pantoprazole Sodium 40 mg 03/13/24 09:00 03/14/24 14:06 Pantoprazole 40 Mg Tablet PO 40 mg DAILY ANDER Administration Perflutren Lipid Microsphere 0 ml 03/13/24 14:43 Perflutren Lipid Microspheres 1.5 Ml Vial Diluted To 10 Ml Total Volume IV PUSH 03/16/24 14:43 ONCE PRN adequate visualization Protocol Tamsulosin HCl 0.4 mg 03/12/24 21:00 03/13/24 20:58 Tamsulosin Hcl 0.4 Mg Capsule PO 0.4 mg HS ANDER Administration Radiology Results: ITS Impressions Chest X-Ray 03/11/24 16:00 IMPRESSION: No acute cardiopulmonary pathology. Lexiscan Stress Test 03/14/24 14:17 IMPRESSION: 1. No definite ischemia or infarct. 2. Normal left ventricular ejection fraction measuring 62%. Labs Labs: Laboratory Results - last 24 hr 03/14/24 05:48 WBC 9.4 RBC 3.98 L Hgb 12.4 L Hct 38.1 L MCV 95.7 MCH 31.2 MCHC 32.5 RDW 14.0 Plt Count 203 MPV 9.9 Immature Gran % (Auto) 0.3 Neut % (Auto) 55.2 Lymph % (Auto) 32.2 [place] % (Auto) 9.0 H Eos % (Auto) 2.6 Baso % (Auto) 0.7 Lymph # (Auto) 3.02 [place] # (Auto) 0.8 H Eos # (Auto) 0.2 Baso # (Auto) 0.1 Abs Immat Gran (auto) 0.03 Absolute Neuts (auto) 5.2 Absolute Nucleated RBC 0.000 Nucleated RBC % 0.0 Sodium 133 L Potassium 4.1 Chloride 94 L Carbon Dioxide 33 H Anion Gap 6 BUN 22 H D Creatinine 7.42 H Estim Creat Clear Calc 8 Estimated GFR 9 L Glucose 96 Calcium 8.6 Total Bilirubin 0.4 AST 19 ALT 10 Alkaline Phosphatase 64 Total Protein 7.0 Albumin 3.8
[2024-03-14 19:55] LABS: Toxigenic C. Diff POSITIVE (NEGATIVE)
[2024-03-14] MEDS: TAMSULOSIN HCL 0.4 MG CAPSULE PO (19:57)
--- NOTE | 2024-03-14 22:24 | PM.EVENT ---
Event Note Event Note Event Note: C diff test came back positive and he has been started on fidaxomicin.
[2024-03-14] MEDS: FIDAXOMICIN 200 MG TABLET PO (23:59)
[2024-03-15] VITALS (27 sets, daily range): BP systolic 108–150; BP diastolic 62–84; PULSE 60–707; RESP 16–20; TEMP 36.1–37.5; O2SAT 96–100
[2024-03-15 05:34] LABS: Basophils Absolute Auto 0.1 K/mm3 (0.0-0.1); Basophils Percent Auto 0.7 % (0.2-1.2); Eosinophils Absolute Auto 0.2 K/mm3 (0-0.3); Eosinophils Percent Auto 2.1 % (0-4.4); Hematocrit 36.3 % (42.0-52.0); Hemoglobin 12.1 g/dL (14.0-18.0); Immature Granulocyte Absolute 0.02 K/mm3 (0.00-0.031); Immature Granulocyte Percent A 0.2 % (0-0.5); Lymphocytes Absolute Auto 3.22 K/mm3 (0.9-3.2); Lymphocytes Percent Auto 35.3 % (18.3-44.2); Mean Corpuscular HGB Conc 33.3 g/dl (32-36); Mean Corpuscular Hemoglobin 31.5 pg (26-34); Mean Corpuscular Volume 94.5 fl (80-100); Mean Platelet Volume 10.1 fl (7.4-10.4); Monocytes Absolute Auto 0.7 K/mm3 (0.1-0.6); Monocytes Percent Auto 8.1 % (2.6-8.5); Neutrophils Absolute Auto 4.9 K/mm3 (1.3-6.7); Neutrophils Percent Auto 53.6 % (45.5-73.1); Platelet Count Result 200 k/mm3 (150-375); Red Blood Count 3.84 M/mm3 (4.6-6.20); Red Cell Distribution Width 14.1 % (11.5-14.5); White Blood Count 9.1 K/mm3 (4.5-10.0)
[2024-03-15 05:47] LABS: Alanine Aminotransferase 11 U/L (6-50); Albumin Level 3.5 g/dL (3.5-5.1); Alkaline Phosphatase 74 U/L (38-126); Anion Gap 9 mmol/L (4-12); Aspartate Amino Transferase 18 U/L (17-59); Bilirubin,Total 0.4 mg/dL (0.2-1.3); Blood Urea Nitrogen 32 mg/dL (9-20); Calcium 8.3 mg/dL (8.4-10.2); Carbon Dioxide 26 mmol/L (22-30); Chloride 98 mmol/L (98-107); Estimated CRCL calculation 6 ml/min; Estimated Glomerular Filt Rate 7; Glucose 94 mg/dL (65-110); Sodium 133 mmol/L (137-145)
[2024-03-15] MEDS: PANTOPRAZOLE 40 MG TABLET PO (08:44)
[2024-03-15] MEDS: amLODIPine BESYLATE 10 MG TABLET PO (08:44)
[2024-03-15] MEDS: FINASTERIDE 5 MG TABLET PO (08:44)
[2024-03-15] MEDS: FIDAXOMICIN 200 MG TABLET PO ×2 (08:44→20:34)
[2024-03-15] MEDS: METOPROLOL TARTRATE 25 MG TABLET PO ×2 (08:44→20:32)
[2024-03-15] MEDS: CYANOCOBALAMIN 250 MCG TABLET PO (08:44)
[2024-03-15] MEDS: FAMOTIDINE 20 MG TABLET PO (08:44)
--- NOTE | 2024-03-15 09:42 | PM.IMPN ---
Progress Note: A&P Assessment and Plan (1) Bradycardia: Code(s): R00.1 - Bradycardia, unspecified Status: Acute Assessment and Plan: Patient with irregular heart rate, noted to drop into the 30s overnight. Remained asymptomatic. 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 at [employer]. Unsure what his inspector filter tip name is or why he follows with him. Patient had a school lunch monitor 2 months ago but is unsure of the results. - EKG sinus rhythm HR 62 - Tele monitor, remains in regular rhythm with irregular rate - Echo obtained, results pending - Cardiology consulted, appreciate recommendations Recommend echo to assess cardiac function Lexiscan stress test recommended as patient is on HD and at higher risk of CAD and has frequent PVCs (2) Volume overload: Qualifiers: Hypervolemia type: unspecified Qualified Code(s): E87.70 - Fluid overload, unspecified Code(s): E87.70 - Fluid overload, unspecified Status: Acute Assessment and Plan: Patient endorsing shortness of breath with exertion after missing dialysis for the past week. - Lasix 40 mg IV x1 in the ED - Chest XR: no acute cardiopulmonary pathology - Plan for patient to receive dialysis during admission (3) ESRD on dialysis: Code(s): N18.6 - End stage renal disease; Z99.2 - Dependence on renal dialysis Status: Acute Assessment and Plan: ESRD on HD MWF. Reports missing his dialysis appointments for the past week due to weather condition. BUN/Cr 64/16.41 on admission - BUN/Cr 32/8.74 on am labs - Avoid nephrotoxic medications - Renally dose medications - Monitor I/O - Nephrology consult for dialysis s/p HD 03/12 removed 3L s/p HD 03/13 plan for dialysis this afternoon. (4) Hyperkalemia: Code(s): E87.5 - Hyperkalemia Status: Acute Assessment and Plan: K 5.5 on admission secondary to missing dialysis - Lokelma 10 mg x2 given in the ED - EKG sinus rhythm HR 64 - K 4.0 on am labs - Continue telemetry - Continue to monitor with CMP - Nephrology consulted for dialysis treatment s/p 2 K bath with dialysis on 03/13 (5) C. difficile colitis: Code(s): A04.72 - Enterocolitis due to Clostridium difficile, not specified as recurrent Status: Acute Assessment and Plan: Receiving Fidaxomicin 200 mg PO q 12. Monitor stools. (6) Metabolic acidosis: Code(s): E87.20 - Acidosis, unspecified Status: Acute Assessment and Plan: Likely secondary to missed dialysis -Bicarb 26 on am labs Continue to monitor (7) Anemia: Code(s): D64.9 - Anemia, unspecified Status: Acute Assessment and Plan: Likely secondary to ESRD, per nephrology Hemoglobin is low but too high to give PARISA right now. No signs of active bleeding. - Iron panel WNL - B12 235, started on supplementation - Folate WNL - Monitor (8) Hypertension: Code(s): I10 - Essential (primary) hypertension Status: Acute Assessment and Plan: Chronic, continue home medications - amlodipine 10 mg daily - metoprolol 25 mg BID - blood pressure is stable, continue to monitor Subjective Date/time seen: 03/15/24 09:42 Interval history: Patient sitting up in bed. Patient missed a dialysis treatment due to the snow per patient. Patient denies chest pain, palpitations, headache, dizziness, nausea, or vomiting. Patients dialysis to be done this afternoon. Review of Systems Review of Systems: All systems reviewed & are unremarkable except as noted in HPI and below Exam Const: General: comfortable and no acute distress Eyes: Sclera: abnormal sclerae Resp: Effort & Inspection: normal respiratory effort Auscultation: clear to auscultation bilaterally Cardio: Rate: regular rate Rhythm: regular rhythm GI: GI Palp: Yes Soft to palpation Auscultation: normal bowel sounds Skin: General skin exam: no rashes or lesions noted Neuro: Speech: normal speech Extrem: General: no pedal edema Psych: Mental Status: mental status grossly normal Affect: normal affect Objective Data Vital Signs Vital Signs: Vital Signs - 24 hr 03/14/24 12:00 03/14/24 14:00 03/14/24 14:06 Temperature 97.8 F Pulse Rate 73 80 72 Respiratory Rate 16 Blood Pressure 132/76 Pulse Oximetry 100 Oxygen Delivery 03/14/24 16:00 03/14/24 19:42 03/14/24 20:00 Temperature 99.2 F Pulse Rate 96 52 L 84 Respiratory Rate 20 Blood Pressure 134/78 Pulse Oximetry 99 Oxygen Delivery 03/14/24 22:06 03/15/24 00:00 03/15/24 04:00 Temperature Pulse Rate 83 76 68 Respiratory Rate Blood Pressure Pulse Oximetry Oxygen Delivery 03/15/24 04:16 03/15/24 08:44 03/15/24 08:52 Temperature 98.2 F Pulse Rate 68 76 Respiratory Rate 20 Blood Pressure 133/66 Pulse Oximetry 100 Oxygen Delivery Room Air Intake/Output Intake/Output: Intake & Output 03/12/24 03/13/24 03/14/24 03/15/24 23:59 23:59 23:59 23:59 Intake Total 1030 1300 1230 640 Output Total 3142 1800 300 300 Balance -2112 -500 930 340 Meds/Results Medications: Active Medications Generic Name Dose Route Start Last Admin Trade Name Freq PRN Reason Stop Dose Admin Acetaminophen 650 mg 03/11/24 19:00 Acetaminophen 325 Mg Tablet PO Q4H PRN Mild Pain (1-3) or Fever Acetaminophen 500 mg 03/12/24 13:50 03/13/24 06:21 Acetaminophen 500 Mg Tablet PO 500 mg Q6H PRN Administration PAIN RATED 1-3 Hydrocodone Bitart/Acetaminophen 1 tab 03/11/24 19:00 03/14/24 23:59 Hydrocodone/Acetaminophen (*Crx) 5-325 Mg Tablet PO 1 tab Q4H PRN Administration Pain Rated 4-6 Amlodipine Besylate 10 mg 03/13/24 09:00 03/15/24 08:44 Amlodipine Besylate 10 Mg Tablet PO 10 mg DAILY ANDER Administration Cyanocobalamin 250 mcg 03/14/24 09:00 03/15/24 08:44 Cyanocobalamin 250 Mcg Tablet PO 250 mcg QAM ANDER Administration Famotidine 20 mg 03/13/24 09:00 03/15/24 08:44 Famotidine 20 Mg Tablet PO 20 mg DAILY ANDER Administration Fidaxomicin 200 mg 03/14/24 22:25 03/15/24 08:44 Fidaxomicin 200 Mg Tablet PO 03/24/24 22:24 200 mg Q12HR ANDER Administration Finasteride 5 mg 03/13/24 09:00 03/15/24 08:44 Finasteride 5 Mg Tablet PO 5 mg DAILY ANDER Administration Metoprolol Tartrate 25 mg 03/12/24 21:00 03/15/24 08:44 Metoprolol Tartrate 25 Mg Tablet PO 25 mg Q12HR ANDER Administration Ondansetron HCl 4 mg 03/11/24 19:00 Ondansetron Inj 4 Mg/2 Ml Vial IV PUSH Q4H PRN Nausea Pantoprazole Sodium 40 mg 03/13/24 09:00 03/15/24 08:44 Pantoprazole 40 Mg Tablet PO 40 mg DAILY ANDER Administration Perflutren Lipid Microsphere 0 ml 03/13/24 14:43 Perflutren Lipid Microspheres 1.5 Ml Vial Diluted To 10 Ml Total Volume IV PUSH 03/16/24 14:43 ONCE PRN adequate visualization Protocol Tamsulosin HCl 0.4 mg 03/12/24 21:00 03/14/24 19:57 Tamsulosin Hcl 0.4 Mg Capsule PO 0.4 mg HS ANDER Administration Radiology Results: ITS Impressions Chest X-Ray 03/11/24 16:00 IMPRESSION: No acute cardiopulmonary pathology. Lexiscan Stress Test 03/14/24 14:17 IMPRESSION: 1. No definite ischemia or infarct. 2. Normal left ventricular ejection fraction measuring 62%. Labs Labs: Laboratory Results - last 24 hr 03/14/24 03/15/24 16:19 05:29 WBC 9.1 RBC 3.84 L Hgb 12.1 L Hct 36.3 L MCV 94.5 MCH 31.5 MCHC 33.3 RDW 14.1 Plt Count 200 MPV 10.1 Immature Gran % (Auto) 0.2 Neut % (Auto) 53.6 Lymph % (Auto) 35.3 [place] % (Auto) 8.1 Eos % (Auto) 2.1 Baso % (Auto) 0.7 Lymph # (Auto) 3.22 H [place] # (Auto) 0.7 H Eos # (Auto) 0.2 Baso # (Auto) 0.1 Abs Immat Gran (auto) 0.02 Absolute Neuts (auto) 4.9 Absolute Nucleated RBC 0.000 Nucleated RBC % 0.0 Sodium 133 L Potassium 4.0 Chloride 98 Carbon Dioxide 26 Anion Gap 9 BUN 32 H D Creatinine 8.74 H Estim Creat Clear Calc 6 Estimated GFR 7 L Glucose 94 Calcium 8.3 L Total Bilirubin 0.4 AST 18 ALT 11 Alkaline Phosphatase 74 Total Protein 7.0 Albumin 3.5 C. difficile (PCR) Positive A* Quality VTE Prophylaxis VTE prophylaxis: mechanical ordered
[2024-03-15] MEDS: HYDROcodone/acetaminophen (*CRX) 5-325 MG TABLET 1 TAB PO ×2 (12:01→19:22)
[2024-03-15] MEDS: TAMSULOSIN HCL 0.4 MG CAPSULE PO (20:31)
[2024-03-16] VITALS: PULSE 73
[2024-03-16] MEDS: HYDROcodone/acetaminophen (*CRX) 5-325 MG TABLET 1 TAB PO ×3 (00:13→12:10)
[2024-03-16 04:00] VITALS: PULSE 73
[2024-03-16 05:54] LABS: Basophils Absolute Auto 0.1 K/mm3 (0.0-0.1); Basophils Percent Auto 0.9 % (0.2-1.2); Eosinophils Absolute Auto 0.3 K/mm3 (0-0.3); Eosinophils Percent Auto 3.1 % (0-4.4); Hematocrit 35.1 % (42.0-52.0); Hemoglobin 11.3 g/dL (14.0-18.0); Immature Granulocyte Absolute 0.04 K/mm3 (0.00-0.031); Immature Granulocyte Percent A 0.4 % (0-0.5); Lymphocytes Absolute Auto 3.06 K/mm3 (0.9-3.2); Lymphocytes Percent Auto 33.2 % (18.3-44.2); Mean Corpuscular HGB Conc 32.2 g/dl (32-36); Mean Corpuscular Hemoglobin 30.5 pg (26-34); Mean Corpuscular Volume 94.9 fl (80-100); Mean Platelet Volume 10.8 fl (7.4-10.4); Monocytes Absolute Auto 0.8 K/mm3 (0.1-0.6); Monocytes Percent Auto 9.1 % (2.6-8.5); Neutrophils Absolute Auto 4.9 K/mm3 (1.3-6.7); Neutrophils Percent Auto 53.3 % (45.5-73.1); Platelet Count Result 201 k/mm3 (150-375); White Blood Count 9.2 K/mm3 (4.5-10.0)
[2024-03-16 06:00] VITALS: BP 140/80; PULSE 68; RESP 16; TEMP 37.6; O2SAT 100
[2024-03-16 06:09] LABS: Alanine Aminotransferase 12 U/L (6-50); Albumin Level 3.5 g/dL (3.5-5.1); Alkaline Phosphatase 63 U/L (38-126); Anion Gap 7 mmol/L (4-12); Aspartate Amino Transferase 20 U/L (17-59); Bilirubin,Total 0.3 mg/dL (0.2-1.3); Blood Urea Nitrogen 17 mg/dL (9-20); Calcium 8.4 mg/dL (8.4-10.2); Carbon Dioxide 28 mmol/L (22-30); Chloride 98 mmol/L (98-107); Estimated CRCL calculation 9 ml/min; Estimated Glomerular Filt Rate 11; Glucose 87 mg/dL (65-110); Sodium 133 mmol/L (137-145)
[2024-03-16] MEDS: PANTOPRAZOLE 40 MG TABLET PO (08:03)
[2024-03-16] MEDS: amLODIPine BESYLATE 10 MG TABLET PO (08:03)
[2024-03-16 08:04] VITALS: PULSE 68
[2024-03-16] MEDS: FIDAXOMICIN 200 MG TABLET PO (08:04)
[2024-03-16] MEDS: CYANOCOBALAMIN 250 MCG TABLET PO (08:04)
[2024-03-16] MEDS: FINASTERIDE 5 MG TABLET PO (08:04)
[2024-03-16] MEDS: FAMOTIDINE 20 MG TABLET PO (08:04)
[2024-03-16] MEDS: METOPROLOL TARTRATE 25 MG TABLET PO (08:04)
--- NOTE | 2024-03-16 09:52 | P.DS_ITS ---
DS: Admitting Diagnosis Discharge Date 03/16/24 Admitting Diagnosis Weakness. Missed dialysis all week due to weather. DS: Discharge Diagnosis Discharge Diagnosis (1) Bradycardia: Code(s): R00.1 - Bradycardia, unspecified Status: Resolved (2) Volume overload: Qualifiers: Hypervolemia type: unspecified Qualified Code(s): E87.70 - Fluid overload, unspecified Code(s): E87.70 - Fluid overload, unspecified Status: Acute (3) ESRD on dialysis: Code(s): N18.6 - End stage renal disease; Z99.2 - Dependence on renal dialysis Status: Acute (4) Hyperkalemia: Code(s): E87.5 - Hyperkalemia Status: Resolved (5) C. difficile colitis: Code(s): A04.72 - Enterocolitis due to Clostridium difficile, not specified as recurrent Status: Acute (6) Metabolic acidosis: Code(s): E87.20 - Acidosis, unspecified Status: Resolved (7) Anemia: Code(s): D64.9 - Anemia, unspecified Status: Acute (8) Hypertension: Code(s): I10 - Essential (primary) hypertension Status: Acute DS: Summary Hospital Course Hospital Course: * Patient dialyzed 3 days with improvement in Creatinine from 16.71 to 6.16. * Chest X-ray showed no acute cardiopulmonary abnormality. * Stress test: Summary 1. No abnormal ST/T wave changes diagnostic of ischemia with Lexiscan. 2. Frequent PACs and PVCs. 3. Please correlate with nuclear medicine images, reported separately. 4. Stress test supervised by Heide Selby NP. Stress test interpreted by Roya Figueroa MD. * Uzma scan: 1. No definite ischemia or infarct. 2. Normal left ventricular ejection fraction measuring 62%. * Echo cardiogram showed: Summary 1. Complete two-dimensional, color flow and Doppler transthoracic echocardiogram is performed. 2. Left ventricular chamber dimension is normal. 3. Left ventricular systolic function is normal, estimated at 55-60%. 4. There is mildly increased left ventricular wall thickness. 5. The left ventricular diastolic function is grade I diastolic dysfunction. 6. Right ventricular systolic function is normal. 7. There is moderate anterior pericardial effusion. No echocardiographic evidence of tamponade. 8. No significant valvular disease. * Patient was seen by Cardiology. Heart rate improved to 60's-70's. * Cardiology Plan -in regards to PVCs and PACs, recommend to check an echocardiogram to assess cardiac structure and function. Echocardiogram showed normal LV function with grade I diastolic dysfunction. He does have a moderate pericardial effusion with no evidence of tamponade; he is hemodynamically stable. Because dialysis patient is at higher risk for CAD and given frequent PVCs Lexiscan stress test was performed and did not show any ischemia. -regards to sinus bradycardia, fairly asymptomatic. He takes metoprolol 25 mg b.i.d.. Recommend to continue metoprolol given frequent PACs and PVCs. -Rigorous hypertension controlled. Continue amlodipine and metoprolol. Status at Discharge Functional status at discharge: uses cane/walker Overall status at discharge: patient is progressing back to baseline Time Spent with Patient Time attestation: Total time spent providing and/or coordinating discharge services: Exam Const: General: comfortable and no acute distress Resp: Effort & Inspection: normal respiratory effort Auscultation: clear to auscultation bilaterally Cardio: Rate: regular rate Rhythm: regular rhythm GI: GI Palp: Yes Soft to palpation Auscultation: normal bowel sounds Skin: General skin exam: no rashes or lesions noted Extrem: General: no pedal edema Psych: Mental Status: mental status grossly normal Affect: normal affect DS: Data Data Completed and Pending Labs on day of discharge: Labs from last 24 hours 03/16/24 05:22 WBC 9.2 RBC 3.70 L Hgb 11.3 L Hct 35.1 L MCV 94.9 MCH 30.5 MCHC 32.2 RDW 14.0 Plt Count 201 MPV 10.8 H Immature Gran % (Auto) 0.4 Neut % (Auto) 53.3 Lymph % (Auto) 33.2 [place] % (Auto) 9.1 H Eos % (Auto) 3.1 Baso % (Auto) 0.9 Lymph # (Auto) 3.06 [place] # (Auto) 0.8 H Eos # (Auto) 0.3 Baso # (Auto) 0.1 Abs Immat Gran (auto) 0.04 H Absolute Neuts (auto) 4.9 Absolute Nucleated RBC 0.000 Nucleated RBC % 0.0 Sodium 133 L Potassium 4.0 Chloride 98 Carbon Dioxide 28 Anion Gap 7 BUN 17 D Creatinine 6.16 H Estim Creat Clear Calc 9 Estimated GFR 11 L Glucose 87 Calcium 8.4 Total Bilirubin 0.3 AST 20 ALT 12 Alkaline Phosphatase 63 Total Protein 7.0 Albumin 3.5 Discharge Plan Discharge Attending physician on discharge: Adrien Reid Consulting providers: Diogenes Caraballo; Ralf Deluca; Roya Figueroa Discharging Clinician: Ruth Hopkins Anticipated Discharge Date/Time: 03/16/24 11:30 Patient Disposition: Home, Self-Care Activity: as tolerated Diet: as tolerated and renal Discharge Instructions: Discharge disposition: Patient admitted to the hospital for volume overload secondary to missing dialysis appointments last week Nephrology evaluated patient and he received dialysis during admission Continue hemodialysis as scheduled on Wednesday, Wednesday, Wednesday Follow up with your flexible babysitter as scheduled Monitor blood pressures Take caution while standing, rising, or moving Change positions slowly taking a break between each position change If you standing feel dizzy sat back down and take a break Encouraged to continue with yearly vaccinations Return to the emergency department if he developed sudden shortness of breath, chest pain, nausea, vomiting, upset stomach or intractable diarrhea Return to the emergency department if you develop fever greater than 101.5 Follow-up with the primary care physician within 1-2 weeks Thank you for [facility] for your healthcare needs Patient Instructions: Dialysis Nutrition Plan (DC), C. Diff (Clostridioides Difficile) Infection (DC), End Stage Kidney Disease (DC), Hemodialysis (DC) Patient Language: Danish Stand Alone Forms: General Discharge Information Follow-up/Referrals: Zhang Chavez [Other] - 1 Week Ralf Deluca MD [Physician] - Keep Reg. Scheduled Appt. Discharge Medications: New cyanocobalamin (vitamin B-12) [Vitamin B-12] 250 mcg Tablet 250 mcg PO QAM Qty: 30 0RF vancomycin 125 mg capsule 125 mg PO QID Qty: 40 0RF Rx Instructions: take 125 mg 4 times per day for 10 days Continued amlodipine 10 mg tablet 10 mg PO DAILY tramadol 50 mg tablet 50 mg PO BID PRN (Reason: pain) famotidine 20 mg tablet 20 mg PO DAILY tamsulosin 0.4 mg capsule 0.4 mg PO HS pantoprazole 40 mg tablet,delayed release (DR/EC) 40 mg PO DAILY finasteride 5 mg tablet 5 mg PO DAILY metoprolol tartrate 25 mg tablet 25 mg PO BID glycerin (adult) Suppository 1 supp RECTAL PRN acetaminophen 500 mg capsule 500 mg PO Q6H PRN (Reason: pain) Date of admission: 03/15/24 10:52 Primary Care Provider: UNKNOWN,DOCTOR Admitting Provider: Vel Carcamo Attending physician on admission: Adrien Reid Condition: Stable Hospitalist MIPS Heart Failure (Exclusion) Patient has history of Heart Transplant or Left Ventricular Assistive Device?: No IF YES, STOP HERE Heart Failure (Qualifier) Patient has current or prior documentation of LVEF less than or equal to 40%, or mod/servere depressed LVSF?: No IF NO, STOP HERE
--- NOTE | 2024-03-16 16:40 | P.PNNP_ITS ---
Progress Note: A&P Assessment and Plan (1) ESRD on dialysis: Code(s): N18.6 - End stage renal disease; Z99.2 - Dependence on renal dialysis Status: Acute Assessment and Plan: * ESRD * Hyperkalemia * Volume overload * Missed dialysis * Anemia of CKD * Hypertensive renal disease Echo normal, stress test negative Plan Stable Plan to discharge F/u outpatient dialysis unit Subjective Date/time seen: 03/15/24 09:40 Interval history: F/u ESRD Review of Systems Review of Systems: Doing better No complants Exam Const: General: comfortable and no acute distress Eyes: General: appearance normal, both eyes and all related structures Neck: Neck: supple and no JVD Resp: Effort & Inspection: normal respiratory effort Auscultation: clear to auscultation bilaterally GI: GI Palp: Yes Soft to palpation Other: no masses, non tender Neuro: Other: alert. orinted x 3 Extrem: Other: no edema, no cyaNOSIS Psych: Affect: normal affect Other: Is at baseline Objective Data Vital Signs Vital Signs: Vital Signs - 24 hr 03/15/24 16:45 03/15/24 17:00 03/15/24 17:15 Temperature Pulse Rate 73 69 71 Respiratory Rate Blood Pressure 117/69 133/71 137/79 Pulse Oximetry 03/15/24 17:30 03/15/24 17:45 03/15/24 18:00 Temperature Pulse Rate 707 H 71 70 Respiratory Rate Blood Pressure 127/79 125/84 125/83 Pulse Oximetry 03/15/24 18:10 03/15/24 20:32 03/15/24 20:34 Temperature 36.2 C L Pulse Rate 69 78 79 Respiratory Rate 16 Blood Pressure 150/79 H Pulse Oximetry 96 03/15/24 21:54 03/16/24 00:00 03/16/24 04:00 Temperature 37.5 C Pulse Rate 60 73 73 Respiratory Rate 16 Blood Pressure 146/84 H Pulse Oximetry 100 03/16/24 06:00 03/16/24 08:04 Temperature 37.6 C Pulse Rate 68 68 Respiratory Rate 16 Blood Pressure 140/80 Pulse Oximetry 100 Intake/Output Intake/Output: Intake & Output 03/13/24 03/14/24 03/15/24 03/16/24 23:59 23:59 23:59 23:59 Intake Total 1300 1230 1430 460 Output Total 3761 106 7787 700 Balance -500 930 -620 -240 Meds/Results Radiology Results: ITS Impressions Chest X-Ray 03/11/24 16:00 IMPRESSION: No acute cardiopulmonary pathology. Lexiscan Stress Test 03/14/24 14:17 IMPRESSION: 1. No definite ischemia or infarct. 2. Normal left ventricular ejection fraction measuring 62%. Labs Labs: Laboratory Results - last 24 hr 03/16/24 05:22 WBC 9.2 RBC 3.70 L Hgb 11.3 L Hct 35.1 L MCV 94.9 MCH 30.5 MCHC 32.2 RDW 14.0 Plt Count 201 MPV 10.8 H Immature Gran % (Auto) 0.4 Neut % (Auto) 53.3 Lymph % (Auto) 33.2 [place] % (Auto) 9.1 H Eos % (Auto) 3.1 Baso % (Auto) 0.9 Lymph # (Auto) 3.06 [place] # (Auto) 0.8 H Eos # (Auto) 0.3 Baso # (Auto) 0.1 Abs Immat Gran (auto) 0.04 H Absolute Neuts (auto) 4.9 Absolute Nucleated RBC 0.000 Nucleated RBC % 0.0 Sodium 133 L Potassium 4.0 Chloride 98 Carbon Dioxide 28 Anion Gap 7 BUN 17 D Creatinine 6.16 H Estim Creat Clear Calc 9 Estimated GFR 11 L Glucose 87 Calcium 8.4 Total Bilirubin 0.3 AST 20 ALT 12 Alkaline Phosphatase 63 Total Protein 7.0 Albumin 3.5
--- OUTSIDE RECORDS SUMMARY | 2024-03-18 18:03 | XMS_ITS | Encounter Summary ---
Author Organization [facility] Address [address] [place] [address] Care Team Providers Care Apprentice Funeral Director Name Role Phone Unavailable Primary Care Provider Unavailabl e Reason for Visit * Reason Comments URINARY CATHETER PROBLEM Reports his cat heter bag is leaking, reports having the same urinary cath in for almost 3 months. Reports drainage at his urethra and pain when he has drainage. Goes to dialysis on MWF. Had seen urologist today and had sent him here for eval. Encounter Details Date Type Department Care Team (Late st Contact Info) Description 07/06/2023 8:54 PM CDT - 07/07/2023 12:24 AM CDT Emergency ER at [address] [address] Problem with Rubi catheter, initial encounter ([facility]) Discharge Disposition: Left Against Medical Advice/Discontinued Care Social History Tobacco Use Types Packs/Day Years Used Date Smoking Tobacco: Never Assessed Sex and Gender Information Value Date Recorded Sex Assigned at Not on file Gender Identity Not on file Sexual Orientation Not on file documented as of this encounter Last Filed Vital Signs Vital Sign Reading Time Taken Comments Blood Pressure 148/65 07/06/2023 3:41 PM CDT Pulse 93 07/06/2023 3:41 PM CDT Temperature 36.6 ??C (97.8 ??F) 07/06/2023 3:41 PM CD T Respiratory Rate 18 07/06/2023 3:41 PM CDT Oxygen Saturation 99% 07/06/2023 3:41 PM CDT Inhaled Oxygen Concentration - - Weight - - Height - - Body Mass Index - - documented in this encounter ED Notes * Jone Martinez - 07/06/2023 11:10 PM CDT Main #4 - rubi problem, renal stents per pt, on HD, sent by his dr/ LULY for vitals @2310 * Santosh Fontanez, RN - 07/06/2023 8:54 PM CDT Bed: 30 Expected date: Expected time: Means of arrival: Comments: Triage: Brenna * Jone Martinez - 07/06/2023 8:52 PM CDT Main #3 - rubi problem, renal stents per pt, on HD, sent by his dr/ LULY for vitals and mail X2 * Jone Martinez - 07/06/2023 8:52 PM CDT Main - rubi problem, renal stents per pt, on HD, sent by his dr * Jone Martinez - 07/06/2023 8:52 PM CDT Main #2 - rubi problem, renal stents per pt, on HD, sent by his dr * Jone Martinez - 07/06/2023 8:52 PM CDT Main #3 - rubi problem, renal stents per pt, on HD, sent by his dr * Charu Escobar, EMT-P - 07/06/2023 4:26 PM CDT Pt given apple juice and elfego crackers for low glucose * Herlinda Gordillo PA-C - 07/06/2023 3:41 PM CDT RME Note CC: URINARY CATHETER PROBLEM (Reports his catheter bag is leaking, reports having the same urinary cath in for almost 3 months. Reports drainage at his urethra and pain when he has drainage. Goes to dialysis on MWF. Had seen urologist today and had sent him here for eval. ) Provider in Triage HPI: Man don Ceja is a 68 year old male h/o ESRD on HD who presents with Rubi catheter problem. Sent by Dr. Cortez, who he saw in the office today (pt has a text on his phone.) Poor historian, difficult to ascertain why the pt was sent to ED. He says his catheter has beenpresent for 3 months, now has something draining around it from the penis. Malodorous. Urine draining into bag is cloudy. He denies fever, vomiting, trauma, other new complaints. Review of Systems: Primary System Noted in HPI Constitutional: No fevers or chills Psychiatric: No mood changes Limited Chart History: No past medical history on file. No past surgical history on file. Current Facility-Administered Medications Medication Dose Route Frequency Provider Last Rate Last Admin ??? 0.9% NaCl injection 3 mL 3 mL Intracatheter q8h Herlinda Gordillo PA-C And ??? 0.9% NaCl injection 1-10 mL 1-10 mL Intracatheter PRN Herlinda Gordillo PA-C No current outpatient medications on file. Allergies Allergen Reactions ??? Donovan Inhibitors Anaphylaxis and Other angioedema angioedema PCP: No primary care provider on file. (Above may be pending completion) VS: BP 148/65 (BP Location: Left arm, Patient Position: Sitting) Pulse 93 Temp 97.8 ??F (36.6 ??C) (Oral) Resp 18 SpO2 99% Pertinent Physical Findings: Constitutional: vitals stable, WDWN Head: Head normocephalic, atraumatic Eyes: conjunctiva clear ENT: no rhinorrhea Neck: neck supple, no nuchal rigidity Resp: respirations even and unlabored, lungs clear bilaterally CV: Heart RRR, no m/c/r/g : Rubi catheter in place; thick material noted around catheter at urethral meatus; no gross bleeding Abd: nondistended Skin: warm, dry Neuro: A&o x 3, CN 2-12 grossly intact bilat Psych: Normal affect MDM: I have reviewed all lab and imaging resulted ordered during this visit and available at the time ofthis note. Triage notes and available nursing notes reviewed. Previous medical record reviewed whenavailable. Management options include but not limited to: physical exam, laboratory testing, discussion with other providers. Initial Plan: labs, main ED for further mgmt documented in this encounter Plan of Treatment Not on file documented as of this encounter Procedures Procedure Name Priority Date/Time Associated Diagnosis Comments GLUCOSE - POINT OF CARE Routine 07/06/2023 5:53 PM CDT CBC W AUTO DIFFERENTIAL STAT 07/06/2023 3:57 PM CDT COMPREHENSIVE METABOLIC PANEL STAT 07/06/2023 3:57 PM CDT documented in this encounter Results * GLUCOSE - POINT OF CARE (07/06/2023 5:53 PM CDT) [facility] Glucose WB/POC 102 70 - 106 mg/dL 07/06/2023 6:03 PM CDT [facility] Specimen Type Cap Fingerstick 2023 6:03 PM CDT [facility] Blood BLOOD SPECIMEN / Unknown 07/06/2023 5:53 PM CDT 07/06/2023 6:03 PM CDT Provider Unknown LAB - POINT OF CARE ORDERABLES [facility] [address] [place] [address] * (ABNORMAL) COMPREHENSIVE METABOLIC PANEL (07/06/2023 3:57 PM CDT) [facility] Glucose 52(LL) 70 - 105 mg/dL 07/06/2023 4:21 PM CDT [facility] Sodium 134(L) 136 - 145 mmol/L 07/06/2023 4:21 PM CDT [facility] Potassium 3.8 3.5 - 5.1 mmol/L 07/06/2023 4:21 PM CDT [facility] Chloride 98 98 - 107 mmol/L 07/06/2023 4:21 PM CDT [facility] CO2 20(L) 22 - 29 mmol/L 07/06/2023 4:21 PM CDT [facility] Calcium 8.9 8.4 - 10.4 mg/dL 07/06/2023 4:21 PM CDT [facility] Anion Gap 16 6 - 16 mmol/L 07/06/2023 4:21 PM CDT [facility] BUN 9 7 - 26 mg/dL 07/06/2023 4:21 PM CDT [facility] Creatinine 3.11(H) 0.72 - 1.25 mg/dL 07/06/2023 4:21 PM CDT [facility] Alkaline Phosphatase 121 40 - 150 U/L 07/06/2023 4:21 PM CDT [facility] ALT 28 0 - 55 U/L 07/06/2023 4:21 PM CDT [facility] AST 39(H) 5 - 34 U/L 07/06/2023 4:21 PM CDT [facility] Protein Total 7.6 6.4 - 8.3 gm/dL 07/06/2023 4:21 PM CDT [facility] Albumin 3.7 3.4 - 5.0 gm/dL 07/06/2023 4:21 PM CDT [facility] Bilirubin Total 0.5 0.2 - 1.2 mg/dL 07/06/2023 4:21 PM CDT [facility] eGFR by CKD-EPI 21(L) >=90 mL/min/1.7 3 m2 07/06/2023 4:21 PM T [facility] Blood BLOOD SPECIMEN / Unknown Venipuncture / Unknown 07/06/2023 3:57 PM CDT 07/06/2023 3:57 PM CDT Herlinda Gordillo PA-C LAB - CHEMISTRY ORDERABLES [facility] [address] [place] [address] * (ABNORMAL) CBC W AUTO DIFFERENTIAL (07/06/2023 3:57 PM CDT) [facility] Signature WBC 9.8 4.0 - 10.7 x10E9/L 07/06/2023 4:00 PM CDT [facility] RBC Count 3.76(L) 4.30 - 5.80 x10E12/L 07/06/2023 4:00 PM CDT [facility] Hemoglobin 11.4(L) 13.3 - 17.5 g/dL 07/06/2023 4:00 PM CDT [facility] Hematocrit 33.5(L) 38.7 - 51.1 % 07/06/2023 4:00 PM CDT [facility] MCV 89.1 80.0 - 98.0 fL 07/06/2023 4:00 PM CDT [facility] MCH 30.3 26.7 - 33.6 pg 07/06/2023 4:00 PM CDT [facility] MCHC 34.0 31.7 - 36.3 g/dL 07/06/2023 4:00 PM CDT [facility] RDW-CV 18.4(H) 11.3 - 14.8 % 07/06/2023 4:00 PM CDT [facility] Platelet Count 307 150 - 420 x10E9/L 07/06/2023 4:00 PM CDT [facility] MPV 9.3 7.8 - 11.4 fL 07/06/2023 4:00 PM CDT [facility] Neutrophil % 54.2 41.0 - 74.0 % 07/06/2023 4:00 PM CDT [facility] Lymphocyte % 32.6 17.0 - 47.0 % 07/06/2023 4:00 PM CDT [facility] Monocyte % 4.8 3.0 - 11.0 % 07/06/2023 4:00 PM CDT [facility] Eosinophil % 7.2(H) 0.0 - 7.0 % 07/06/2023 4:00 PM CDT [facility] Basophil % 0.9 0.0 - 1.6 % 07/06/2023 4:00 PM CDT [facility] Immature Granulocytes % 0.3 0.0 - 1.0 % 07/06/2023 4:00 PM CDT [facility] Neutrophil Absolute 5.31 1.60 - 7.50 x10E9/L 07/06/2023 4:00 PM CDT [facility] Lymphocyte Absolute 3.19 1.00 - 4.40 x10E9/L 07/06/2023 4:00 PM CDT [facility] Monocyte Absolute 0.47 0.15 - 1.00 x10E9/L 07/06/2023 4:00 PM CDT [facility] Eosinophil Absolute 0.70(H) 0.00 - 0.60 x10E9/L 07/06/2023 4:00 PM CDT [facility] Basophil Absolute 0.09 0.00 - 0.13 x10E9/L 07/06/2023 4:00 PM CDT [facility] Blood BLOOD SPECIMEN / Unknown Venipuncture / Unknown 07/06/2023 3:57 PM CDT 07/06/2023 3:57 PM CDT Herlinda Gordillo PA-C LAB - HEMATOLOGY ORDERABLES Performing Organization Address City/State/[facility] Co de Phone Number [facility] [address] [place] [address] documented in this encounter Visit Diagnoses Diagnosis Problem with Rubi catheter, initial encounter (HCC) documented in this encounter Administered Medications Inactive Administered Medications - up to 3 most recent administrations Medication Order MAR Action Action Date Dose Rate Site 0.9% NaCl injection 1-10 mL 1-10 mL, Intracatheter, PRN, Other, peripheral line flush, Starting on Wed07/06/23 at 1543, Until Wed07/07/23 at 0125, Flush peripheral IV catheter with 1-10 mL of normal saline before and after medications and prn to clear blood from the line or to verify patency. 0.9% NaCl injection 3 mL 3 mL, Intracatheter, EVERY 8 HOURS, First dose on Wed07/06/23 at 1615, Until Discontinued, Flush peripheral IV catheter with 3 mL of normal saline every 8 hours. documented in this encounter Active and Recently Administered Medications Times are shown in CDT. Scheduled Medication Order 07/05/2023 07/06/2023 07/07/2023 0.9% NaCl injection 3 mL(Linked Group 1) 3 mL, Intracatheter, EVERY 8 HOURS, First dose on Wed07/06/23 at 1615, Until Discontinued, Flush peripheral IV catheter with 3 mL of normal saline every 8 hours. 1615 (Due)2200 (Due) PRN Medication Order 07/05/2023 07/06/2023 07/07/2023 0.9% NaCl injection 1-10 mL(Linked Group 1) 1-10 mL, Intracatheter, PRN, Other, peripheral line flush, Starting on Wed07/06/23 at 1543, Until 07/07/23 at 0125, Flush peripheral IV catheter with 1-10 mL of normal saline before and after medications and prn to clear blood from the line or to verify patency. Linked Groups Order Group 1: SALINE LOCK, INSERT AND MAINTAIN (CANCELED) Routine, CONTINUOUS, Starting on Wed07/06/23 at 1545, Until Specified, New collection And 0.9% NaCl injection 3 mLJump to med 3 mL, Intracatheter, EVERY 8 HOURS, First dose on Wed07/06/23 at 1615, Until Discontinued, Flush peripheral IV catheter with 3 mL of normal saline every 8 hours. And 0.9% NaCl injection 1-10 mLJump to med 1-10 mL, Intracatheter, PRN, Other, peripheral line flush, Starting on Wed07/06/23 at 1543, Until 07/07/23 at 0125, Flush peripheral IV catheter with 1-10 mL of normal saline before and after medications and prn to clear blood from the line or to verify patency. documented in this encounter
--- OUTSIDE RECORDS SUMMARY | 2024-03-18 18:03 | XMS_ITS | Clinical Summary ---
Author Organization [facility] Address [facility] [place] [address] [place] [address] Care Team Providers Care Paper Guillotine Operator Name Role Phone Castro Spain MD Primary Care Provider + Allergies Active Allergy Reactions Criticality Noted Date Comments Lisinopril Anaphylaxis,Angioedema High 03/05/2020 Denies allergy 12/08/23 Medications multi vitamin/minerals tablet Take 1 tablet by mouth daily. Active Cholecalciferol (VITAMIN D3) 50 MCG (2000 UT) Tab Take 1 tablet (2,000 Units total) by mouth daily. Active amLODIPine 10 MG tablet Take 1 tablet (10 mg total) by mouth daily. 30 tablet 2 1 Active Additional Information Patient not taking.Reported on 12/08/2023 hydroCHLOROthiaz leo 12.5 MG tablet Take 1 tablet (12.5 mg total) by mouth every morning. 30 tablet 2 1 Active Additional Information Patient not taking.Reported on 12/08/2023 GLYCERIN, ADULT, [address] 1 suppository rectally daily. 4 Active traMADol (ULTRAM) 50 MG tablet Take 1 tablet (50 mg total) by mouth 2 (two) times daily as needed for Pain. 4 Active acetaminophen (TYLENOL) 500 MG tablet Take 2 tablets (1,000 mg total) by mouth every 6 (six) hours as needed for Pain. Active HYDROcodone-acet aminophen (NORCO) 5-325 MG tabletIndication s:Acute Pain < 3 Day Supply Take 1 tablet by mouth every 4 (four) hours as needed. 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) 03/06/2020 Encounters Date Type Department Care Team Description 01/06/2024 1:00 PM LIGHT RAIL TRANSIT OPERATOR Home Care Visit [address] [address] Vesna Alcazar, PT PT OASIS DISCHARGE 01/04/2024 1:00 PM LIGHT RAIL TRANSIT OPERATOR Home Care Visit [address] [address] Carson Bhat, COLLECTIONS REPRESENTATIVE COLLECTIONS REPRESENTATIVE HOME VISIT 01/04/2024 12:15 PM LIGHT RAIL TRANSIT OPERATOR Home Care Visit [address] [address] Julienne Jorge, FRAUD PREVENTION ANALYST CASE COMMUNICATION 12/30/2023 1:00 PM CDT Home Care Visit [address] [address] Bre Vaughn CASE COMMUNICATION 12/28/2023 12:45 PM CDT Home Care Visit [address] [address] Carson Bhat, COLLECTIONS REPRESENTATIVE COLLECTIONS REPRESENTATIVE HOME VISIT 12/21/2023 12:00 PM CDT Home Care Visit [address] [address] Vesna Alcazar, PT PT INITIAL EVALUATION 12/20/2023 Home Care Visit [address] [id number] Caitlyn Louis, PT CASE COMMUNICATION 12/17/2023 9:30 AM CDT Home Care Visit [address] [address] Clayton Pride, PT CASE COMMUNICATION from Last 3 Months Immunizations Name Administration Dates Next Due Fluzone (IIV3, Trivalent, 0. 5 ML Prefilled Syringe) 12/14/2023(Deferred: Patient/family declined) Social History Tobacco Use Types Packs/Day Years Used Date Smoking Tobacco: Every Day Cigarettes 0.5 47.6 Started: 08/05/1976 Smokeless Tobacco: Never Tobacco Cessation:Ready to Q uit: No; Counseling Given: No Alcohol Use Standard Drinks/Week Comments Yes 8.3 (1 standard drink = 0.6 oz p ure alcohol) OASIS D0700: Social Isolation Answer Da te Recorded Frequency of experiencing lo neliness or isolation Patient declines to respond 01/06/2024 OASIS A1250: Transportation Answer Date Recorded Lack of Transportation (Medical) Not on file 01/06/2024 Lack of Transportation (Non-Medical) Not on file 01/06/2024 Patient Unable or Declines to Respond Yes 01/06/2024 OASIS B1300: Health Literacy Answer Maxx e Recorded Frequency of needing help to read materials from doctor or pharmacy Patient declines to respond 01/06/2024 [facility] Utilities Answer Date Recorded In the past 12 months has e [employer], gas, oil, or water [employer] threatened to shut off services in your home? Yes 12/08/2023 Humiliation, Afraid, Rape, and Kick questionnair e Answer Date Recorded Within the last year, have y ou been afraid of your partner or ex-partner? No 12/08/2023 Within the last year, have y ou been humiliated or emotionally abused in other ways by your partner or ex-partner? No Within the last year, have y ou been kicked, hit, slapped, or otherwise physically hurt by your partner or ex-partner? No 12/08/2023 Within the last year, have y ou been raped or forced to have any kind of sexual activity by your partner or ex-partner? No 12/08/2023 Overall Financial Resource Strain (CARDIA) Answe r Date Recorded How hard is it for you to pa y for the very basics like food, housing, medical care, and heating? Hard 12/08/2023 Hunger Vital Sign Answer Date Recorded Within the past 12 months, y ou worried that your food would run out before you got the money to buy more. Sometimes true Within the past 12 months, t he food you bought just didn't last and you didn't have money to get more. Sometimes true 10/2023 PRAPARE - Transportation Answer Date Re corded In the past 12 months, has l ack of transportation kept you from medical appointments or from getting medications? Yes 10/2023 In the past 12 months, has l ack of transportation kept you from meetings, work, or from getting things needed for daily living? Yes 12/08/2023 Housing Stability Vital Sign Answer Maxx e Recorded In the last 12 months, was t here a time when you were not able to pay the mortgage or rent on time? No 12/08/2023 In the past 12 months, how m any times have you moved where you were living? 0 12/08/2023 At any time in the past 12 m [facility], were you homeless or living in a mcc (including now)? No 12/08/2023 Sex and Gender Information Value Date Recorded Sex Assigned at Not on file Legal Sex Male 8:12 PM LIGHT RAIL TRANSIT OPERATOR Gender Identity Not on file Sexual Orientation Not on file Last Filed Vital Signs Vital Sign Reading Time Taken Comments Blood Pressure 98/62 01/04/2024 1:10 PM LIGHT RAIL TRANSIT OPERATOR Pulse 82 01/04/2024 1:10 PM LIGHT RAIL TRANSIT OPERATOR Temperature 36.3 ??C (97.3 ??F) 01/04/2024 1:10 PM CS T Respiratory Rate 18 01/04/2024 1:10 PM LIGHT RAIL TRANSIT OPERATOR Oxygen Saturation 97% 01/04/2024 1:10 PM LIGHT RAIL TRANSIT OPERATOR Inhaled Oxygen Concentration - - Weight 63.9 kg (140 lb 14 oz) 12/12/2023 4:19 AM CDT Height 182.9 cm (6') 12/08/2023 8:43 AM CDT Body Mass Index 19.11 12/08/2023 8:43 AM CDT Plan of Treatment Health Maintenance Due Date Last Done Comments Colorectal Cancer Screening Colonoscopy (10 Years) 1957 Pneumococcal Vaccine: 65+ Years (1 of 2 - PCV) 05/19/1963 DTaP, Tdap and Td Vaccines (1 - Tdap) 1976 Lung Cancer Screening 05/19/2007 Zoster Vaccines (1 of 2) 05/19/2007 RSV Immunization or 60+ Years (1 - Risk 60-74 years 1-dose series) 2017 Annual Medicare Wellness Visit 2022 COVID-19 Vaccine (2 - season) 2023 01/10/2022 Hepatitis C Completed 12/11/2022, 11/29, 12/08/2022 Influenza Adult Completed 11/23/2023, 01/10/2022 AAA SCREENING Completed 12/12/2023, 10/2023, 12/07/2022, Additional history exists Meningococcal Vaccine Aged Out No tre cornelia eligible based on patient's age to complete this topic RSV Immunizations Under 20 Months Aged Out No longer eligible based on patient's age to complete this topic Goals Goal Patient Goal Type Associated Problems Recent Progress Patient-Stated? Author Consistently take medications as Prescribed General No Delia Salinas, BHARGAVI Health - patient able to perform ADLs independently Lifestyle No Renee Price RN Procedures Procedure Name Priority Date/Time Associated Diagnosis Comments CT ABD+PEL W CON Today 12/12/2023 1:05 PM CDT from Last 3 Months or Most Recently Relevant to Health Maintenance Results * CT ABD+PEL W CON (12/12/2023 1:05 PM CDT) Anatomical Region Laterality Modality Abdomen Computed Tomogra phy 12/12/2023 1:27 PM CDT Impressions 12/12/2023 1:47 PM CDT IMPRESSION: 1. ??Genitourinary abnormalities as described. ??Clinical correlation required. ??See text. 2. ??Possible fecal impaction. 3. ??Redemonstrated cholelithiasis. Referred By: ?? Interpreted By: Cody Duong MD, 12/12/2023 1:27 PM Narrative 12/12/2023 1:47 PM CDT [place] [id number] Examination: CT of the abdomen and pelvis with contrast. Exam time: 1301 hours. Clinical history: Lower abdominal pain. Comparison: 12/08/2023 (noncontrast). Technique: Following the administration of intravenous contrast, spiral scanning was performed through the abdomen and pelvis. Coronal and sagittal reconstructions were performed from the data set. A dose lowering technique was used for this procedure, which may include, but is not limited to, dose reduction techniques, automated exposure control, the use of iterative reconstruction and ALARA/Image Gently techniques. Findings: There is minor scarring or subsegmental atelectasis in the lower lobes, greater on the right. ??The lung bases are otherwise clear. ??No pleural effusions are seen. ??Cholelithiasis is again evident without signs of cholecystitis. ??The liver, spleen, pancreas and adrenal glands appear unremarkable. ??Bilateral ureteral stents remain in place in stable position. ??There is stable moderate bilateral hydronephrosis and hydroureter. ??Diffuse mural thickening of the urinary bladder suggesting muscular hypertrophy from outlet obstruction is again evident. ??There is diffuse urothelial enhancement consistent with pyelitis/ureteritis/cystitis. ??A few gas bubbles are now present in the right renal pelvis further raising concern for infection. ??The kidneys are otherwise unremarkable. ??A normal-appearing appendix is visible. ??A mass of stool is now present in the rectum suggesting fecal impaction. ??Clinical correlation is required. ??Incompletely imaged peripherally enhancing focus in the superior aspect of the right hemiscrotum is of uncertain etiology (image 167 for example). ??Consider sonographic correlation. ??There is no ascites, free air, lymphadenopathy or bowel distention. ??The caliber of the abdominal aorta is normal. Procedure Note Cody Duong MD - 12/12/2023 [facility] [address] [place], [place] [address] Examination: CT of the abdomen and pelvis with contrast. Exam time: 1301 hours. Clinical history: Lower abdominal pain. Comparison: 12/08/2023 (noncontrast). Technique: Following the administration of intravenous contrast, spiralscanning was performed through the abdomen and pelvis. Coronal andsagittal reconstructions were performed from the data set. A dose loweringtechnique was used for this procedure, which may include, but is notlimited to, dose reduction techniques, automated exposure control, the useof iterative reconstruction and ALARA/Image Gently techniques. Findings: There is minor scarring or subsegmental atelectasis in the lowerlobes, greater on the right. The lung bases are otherwise clear. Nopleural effusions are seen. Cholelithiasis is again evident without signsof cholecystitis. The liver, spleen, pancreas and adrenal glands appearunremarkable. Bilateral ureteral stents remain in place in stableposition. There is stable moderate bilateral hydronephrosis andhydroureter. Diffuse mural thickening of the urinary bladder suggestingmuscular hypertrophy from outlet obstruction is again evident. There isdiffuse urothelial enhancement consistent withpyelitis/ureteritis/cystitis. A few gas bubbles are now present in theright renal pelvis further raising concern for infection. The kidneys areotherwise unremarkable. A normal-appearing appendix is visible. A massof stool is now present in the rectum suggesting fecal impaction.Clinical correlation is required. Incompletely imaged peripherallyenhancing focus in the superior aspect of the right hemiscrotum is ofuncertain etiology (image 167 for example). Consider sonographiccorrelation. There is no ascites, free air, lymphadenopathy or boweldistention. The caliber of the abdominal aorta is normal. IMPRESSION: 1. Genitourinary abnormalities as described. Clinical correlationrequired. See text. 2. Possible fecal impaction. 3. Redemonstrated cholelithiasis. Referred By: Interpreted By: Cody Duong MD, 12/12/2023 1:27 PM us Taj Chamorro MD CT Final R esult from Last 3 Months or Most Recently Relevant to Health Maintenance Additional Health Concerns Infection Onset Date Last Indicated ESBL - Extended Spectrum Bet a-lactamase Comment:12/04/22 +ESBL Blood. Added from external infection. Source: [facility]. 12/04/2022 Insurance [employer] Advance Directives * Full Code (Latest Code Status on File) Date Activated Date Inactivated Comments 12/15/2023 12:27 PM * Full Code Date Activated Date Inactivated Comments 12/08/2023 2:26 PM 12/14/2023 3:47 PM * Full Code Date Activated Date Inactivated Comments 03/06/2020 12:00 AM 03/07/2020 4:54 PM Care Teams Paper Guillotine Operator Relationship Specialty Start Date End Date Castro Spain MD [address] [place] [address] PCP - General INFECTIOUS DISEASE 12/14/23
--- OUTSIDE RECORDS SUMMARY | 2024-03-18 18:03 | XMS_ITS | Encounter Summary ---
Author Organization [facility] Address [facility]. [place], [place] [address] [place] [address] Care Team Providers Care Assistant Professor Of Chemistry Name Role Phone Castro Spain MD Primary Care Provider + Reason for Visit * Auth/Cert (Routine) Specialty Diagnoses / Procedures Referred By Zeferino t Referred To Contact Home Health Services Referral ID Status Reason Start Date Expiration Date Visits Re quested Visits Authorized [id number] 1 1 Encounter Details Date Type Department Care Team (Late st Contact Info) Description 12/17/2023 9:30 AM CDT Home Care Visit [facility] Home Care [address] [place] [address] Clayton Pride, PT [address] [place], [place] [id number] CASE COMMUNICATION Social History Tobacco Use Types Packs/Day Years Used Date Smoking Tobacco: Every Day Cigarettes 0.5 47.6 Started: 08/05/1976 Smokeless Tobacco: Never Alcohol Use Standard Drinks/Week Comments Yes 8.3 (1 standard drink = 0.6 oz p ure alcohol) OASIS D0700: Social Isolation Answer Da te Recorded Frequency of experiencing loneliness or isolatio n Never 12/15/2023 OASIS A1250: Transportation Answer Date Recorded Lack of Transportation (Medical) No 12/15/2023 Lack of Transportation (Non-Medical) No 12/15/2023 Patient Unable or Declines to Respond No 12/15/2023 OASIS B1300: Health Literacy Answer Maxx e Recorded Frequency of needing help to read materials from doctor or pharmacy Often 12/15/2023 [facility] Utilities Answer Date Recorded In the past 12 months has th e electric, gas, oil, or water company threatened to shut off services in your [...] any time in the past 12 m [facility], were you homeless or living in a correction (including now)? 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 Answer Date of Assessment Author Status Yes 12/08/2023 10:00 PM Ana Kim RN Active * Do you have serious difficulty walking or climbing stairs? Answer Date of Assessment Author Status Yes 12/08/2023 10:00 PM Ana Kim RN Active * Do you have difficulty dressing or bathing? Answer Date of Assessment Author Status Yes 12/08/2023 10:00 PM Ana Kim RN Active * Because of a physical, mental, or emotional condition, do you have difficulty doing errands alone such as visiting a doctor's office or shopping? Answer Date of Assessment Author Status Yes 12/08/2023 10:00 PM Ana Kim RN Active documented as of this encounter Mental Status * Because of a physical, mental, or emotional condition, do you have serious difficulty concentrating, remembering, or making decisions? Answer Entry Date Author Status No 12/08/2023 10:00 PM Ana Kim RN Active documented in this encounter Plan of Treatment Not on file documented as of this encounter Goals Goal Patient Goal Type Associated Problems Recent Progress Patient-Stated? Author Consistently take medications as Prescribed General No Delia Salinas RN Health - patient able to perform ADLs independently Lifestyle No Renee Price RN documented as of this encounter Visit Diagnoses Not on filedocumented in this encounter Additional Health Concerns Infection Onset Date Last Indicated Resolved Time ESBL - Extended Spectrum Bet a-lactamase Comment:12/04/22 +ESBL Blood. Added from external infection. Source: [facility]. 12/04/2022 documented as of this encounter Care Teams Assistant Professor Of Chemistry Relationship Specialty Start Date End Date Castro Spain MD [address] [place] [address] PCP - General INFECTIOUS DISEASE 12/14/23 documented as of this encounter
--- OUTSIDE RECORDS SUMMARY | 2024-03-18 18:03 | XMS_ITS | Clinical Summary ---
Author Organization [facility] Address [address] [place] [address] Care Team Providers Care Advertising Assistant Name Role Phone Unavailable Primary Care Provider Unavailabl e Source Comments [facility],non-owned Affiliates and Associated Physician Practices is amultiple site organization consisting of ambulatory clinics and hospital sitesin [place], [place], [place] and [place]. This disclosure is being madepursuant to the Care Everywhere program and may not contain all information available regarding this patient. Last updated 17.[facility] [employer] Allergies Active Allergy Reactions Criticality Noted Date Comments Donovan Inhibitors Anaphylaxis,Other High 07/02/2018 angioedema angioedema Social History Tobacco Use Types Packs/Day Years [...] - - Body Mass Index - - Plan of Treatment Health Maintenance Due Date Last Done Comments COLOGUARD (AGES 45-75) - COL ON CA SCREENING [address] COLONOGRAPHY - COLON CA SCREENING 1955 FIT - COLON CA SCREENING 1955 FLEX SIG - COLON CA SCREENING 1957 LIPID TESTING 1957 HEPATITIS C SCREENING 05/14/1975 DTAP/TDAP/TD VACCINES (1 - Tdap) 1976 PNEUMOCOCCAL VACCINE 50+ (1 of 2 - PCV) 1976 HEPATITIS B VACCINE (1 of 3 - Risk Dialysis 4-dose series) 1977 ZOSTER VACCINE (1 of 2) 05/19/2007 COVID-19 VACCINE (2 - 2023-2 5 season) 2023 01/10/2022 INFLUENZA VACCINE (#1) 2023 3, 12/21/2022, 01/10/2022 DEPRESSION SCREENING 03/01/2024 MEDICARE AWV ? CALENDAR YEAR 2024 Respiratory Syncytial Virus (RSV) Vaccine Pt: or over 60 yrs (1 - 1-dose 75+ series) 2032 COLONOSCOPY - COLON CA SCREENING 06/16/2032 06/16/2022 Colorectal Cancer Screening 06/16/2032 HIB VACCINE Aged Out No longer eligi ble based on patient's age to complete this topic HPV VACCINE Aged Out No longer eligi ble based on patient's age to complete this topic MENINGOCOCCAL (Group B) VACCINE Aged Out No longer eligible b ased on patient's age to complete this topic MENINGOCOCCAL VACCINE Aged Out No tre cornelia eligible based on patient's age to complete this topic
--- OUTSIDE RECORDS SUMMARY | 2024-03-18 18:03 | XMS_ITS | Encounter Summary ---
Author Organization [facility] Address [facility]. [place], [place] [address] [place] [address] Care Team Providers Care Regional Economic Liaison Name Role Phone Castro Spain MD Primary Care Provider + Reason for Visit * Auth/Cert (Routine) Specialty Diagnoses / Procedures Referred By Zeferino plata Referred To Contact Home Health Services Referral ID Status Reason Start Date Expiration Date Visits Re quested Visits Authorized [id number] 1 1 Encounter Details Date Type Department Care Team (Late st Contact Info) Description 12/20/2023 Home Care Visit [facility] Home Care [address] [place] [address] [place] [address] Caitlyn Louis, PT [address] [place] [address] CASE COMMUNICATION Social History Tobacco Use Types [...] materials from doctor or pharmacy Often 12/15/2023 [facility] Utilities Answer Date Recorded In the past [...] time in the past 12 m [facility], were you homeless or living in a penitentiary (including now)? 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 Added from external infection. Source: [facility]. 12/04/2022 documented as of this encounter Care Teams Regional Economic Liaison Relationship Specialty Start Date End Date Castro Spain MD [address] [place] [address] PCP - General INFECTIOUS DISEASE 12/14/23 documented as of this encounter
--- OUTSIDE RECORDS SUMMARY | 2024-03-18 18:03 | XMS_ITS | Encounter Summary ---
Author Organization [facility] Address [facility]. [place], [place] [address] [place] [address] Care Team Providers Care Supervisor Intermediates Name Role Phone Castro Spain MD Primary Care Provider + Reason for Visit * Auth/Cert (Routine) Specialty Diagnoses / Procedures Referred By Zeferino plata Referred To Contact Home Health Services Referral ID Status Reason Start Date Expiration Date Visits Re quested Visits Authorized [id number] 1 1 Encounter Details Date Type Department Care Team (Late st Contact Info) Description 12/30/2023 1:00 PM CDT Home Care Visit [address] [place] [address] [place] [address] Bre Vaughn CASE COMMUNICATION Social History Tobacco Use Types [...] materials from doctor or pharmacy Often 12/15/2023 [facility] Utilities Answer Date Recorded In the past 12 months has th e electric, gas, oil, or water [email or web address] threatened to shut off services in your [...] any time in the past 12 m [facility], were you homeless or living in a [facility] (including now)? 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 Added from external infection. Source: [facility]. 12/04/2022 documented as of this encounter Care Teams Supervisor Intermediates Relationship Specialty Start Date End Date Castro Spain MD [address] [place] [address] PCP - General INFECTIOUS DISEASE 12/14/23 documented as of this encounter
--- OUTSIDE RECORDS SUMMARY | 2024-03-18 18:03 | XMS_ITS | Encounter Summary ---
Author Organization [facility] Address [facility]. [place], [place] [id number] [place] [id number] Care Team Providers Care Shop Tailor Name Role Phone Castro Spain MD Primary Care Provider + Reason for Visit * Auth/Cert (Routine) Specialty Diagnoses / Procedures Referred By Zeferino t Referred To Contact Home Health Services Referral ID Status Reason Start Date Expiration Date Visits Re quested Visits Authorized [id number] 1 1 Encounter Details Date Type Department Care Team (Latest Contact Info) Description 12/21/2023 12:00 PM CDT Home Care Visit [address] [place] [address] [place] [address] Vesna Alcazar, PT [address] [place] [phone] PT INITIAL EVALUATION Social History Tobacco Use Types Packs/Day Years [...] materials from doctor or pharmacy Often 12/15/2023 [facility] Utilities Answer Date Recorded In [...] any time in the past 12 m [facility], were you homeless or living in a intermediate (including now)? No 12/08/2023 Sex and Gender Information Value Date Recorded Sex Assigned at Not on file Legal Sex Male 8:12 PM INDUSTRIAL RELATIONS SPECIALIST Gender Identity Not on file Sexual Orientation Not on file documented as of this encounter Last Filed Vital Signs Vital Sign Reading Time Taken Comments Blood Pressure 80/42 12/21/2023 12:19 PM CDT Pulse 88 12/21/2023 12:19 PM CDT Temperature - - Respiratory Rate 18 12/21/2023 12:19 PM CDT Oxygen Saturation 98% 12/21/2023 12:19 PM CDT Inhaled Oxygen Concentration - - Weight - - Height - - Body Mass Index - - documented in this encounter Functional Status * Are you deaf or do you have serious difficulty hearing Answer Date of Assessment Author Status No 12/08/2023 10:00 PM NADINET Ana Arana RN Active * Are you blind or [...] Author Status No 12/08/2023 10:00 PM Ana Kmi RN Active documented in this encounter Plan of Treatment Not on file documented as of this encounter Goals Goal Patient Goal Type Associated Problems Recent Progress Patient-Stated? Author Consistently take medications as Prescribed General No Salinas, Delia K, RN Health - patient able to perform ADLs independently Lifestyle No Renee Price RN documented as of this encounter Visit Diagnoses Not on filedocumented in this encounter Additional Health Concerns Infection Onset Date Last Indicated Resolved Time ESBL - Extended Spectrum Bet a-lactamase Comment:12/04/22 +ESBL Blood. Added from external infection. Source: [facility]. 12/04/2022 documented as of this encounter Home Health Visit - Care Plan Visit Details Visit Type -PT - Initial Jojo luation Discipline -Physical Therapy Problems Problem Description Start Date Status Goals Interve ntions Decreased Functional Mobility Disciplines: PT 12/21/2023 Active 1 goal linked to scheduled/document ed intervention 1 goal intervention scheduled/documen reynaldo in this visit Collaboration of Care Disciplines: PT Collaboration for safe care. 12/21/2023 Active 2 goals linked to scheduled/document ed interventions 6 goal interventions scheduled/documen reynaldo in this visit Decreased Strength Disciplines: PT Decreased strength in lower extremities. 12/21/2023 Active 1 goal linked to scheduled/document ed intervention 1 goal intervention scheduled/documen reynaldo in this visit Balance Deficit Disciplines: PT Impaired standing balance with potential safety problems. 12/21/2023 Active 1 goal linked to scheduled/document ed intervention 1 goal intervention scheduled/documen reynaldo in this visit Goals Goal Associated Problem Outcome Goal Met? Visit Notes Patient improves functional mobility Description: Patient to asc/desc 4 steps with device indpeendenlty to enter/leave home for appts by 12/30 Patient to ambulate independently indoors with device as needed for 100 ft to assist with doctor appointments by 01/06. Decreased Functional Mobility No Patient verbalizes understanding of medication regimen Description: Patient will verbalize understanding of medication regimen by 01/06. Collaboration of Care No Patient safety met through collaboration for safe care. Description: Clinicians will communicate patient care and safety needs during episode of care through 01/06. Collaboration of Care No Patient increases strength and/or functional mobility Description: Patient to demonstrate independence with LE HEP with increased LE MMT to 4/5 to promote improved mobility in/out of the home by 01/06 Decreased Strength No Patient improves balance and reduces fall risk Description: Patient/caregiver will verbalize a good understanding of home safety and fall prevention measures for a decreased risk of falling by 12/30 Patient to complete 2 stages of 4-stage balance test for improved balance and decreased fall risk by 01/06 Balance Deficit No Interventions Intervention Associated Problem/Goal Status Variance Visit Notes Gait Deficit Description: Gait training. Problem:Decreased Functional Mobility Goal:Patient improves functional mobility Completed Instructed patient on gait training with deviations as noted above. Medication Management Description: Cinician to review medications with patient each visit and report any changes to manager rn case and/or supervising PT. Problem:Collaboration of Care Goal:Patient verbalizes understanding of medication regimen Completed Meds reviewed Assess Vital Signs Description: Obtain and record vital signs. Report to MD BP:??systolic blood pressure <90 or >160; diastolic blood pressure <60 or >90.?? Temperature:?? >100.5 F.?? Pulse: <60 or >100 bpm.??Respiratory Rate:?? <12 or >28 /min.?? SPO2: <90%. May check SPO2 as needed for initial assessment or dyspnea. ?? Problem:Collaboration of Care Goal:Patient safety met through collaboration for safe care. Completed BP katelyn glover MD and Christian Hunter nurse manager rn case notified Instruct Home Safety Description: Instruct patient on strategies/modification s to home environment. Problem:Collaboration of Care Goal:Patient safety met through collaboration for safe care. Completed Patient was instructed on home safety and fall prevention techniques including 1. Keep all pathways clear. 2. Remove or tape down throw rugs. 3. Wear well fitting shoes when transferring or ambulating. 4. Use assist device when ambulating. 5. Night light at night in event of being up to toilet in night. 6. Change position slowly. 7. Stand for one or two minutes before walking. 8. All electrical cords should be along núñez and not running across pathways. 9. Non slip mats in bathroom. Patient verbalised a good understanding of all instructions. Plan Towards Discharge Description: Document Patient progress towards discharge. Problem:Collaboration of Care Goal:Patient safety met through collaboration for safe care. Completed Discussed HH PT frequency and POC with patient agreeable. Care Coordination Description: Clinician to review plan of care with patient/caregivers(s). Patient/Caregiver(s) agree(s) to plan of care and agrees to participate in care.?? Problem:Collaboration of Care Goal:Patient safety met through collaboration for safe care. Completed Clinician reviewed care plan with patient/caregiver. Patient/caregiver agrees to plan of care and agree to participate in care. Plan for Next Visit Description: Next visit plan summation Problem:Collaboration of Care Goal:Patient safety met through collaboration for safe care. Completed Next visit 12/22 with patient agreeable. Decreased Strength Description: - Therapeutic exercise. - Establish home exercise program. Problem:Decreased Strength Goal:Patient increases strength and/or functional mobility Completed Patient completed 1 set of 10 on bilat le seated hep: ankle pumps, laq, marching, and hip abduction. Verbal cues and demonstration for slow/controlled movement, full rom to maximize strength, and proper technique. Patient was provided with a written HEP with insruction to complete daily with patient verbalizing understanding. Balance Deficit Description: - Therapeutic exercise. - Establish or upgrade home program. - Implement balance training. - Perform home safety assessment and give recommendations to Caregiver. Problem:Balance Deficit Goal:Patient improves balance and reduces fall risk Completed [facility] documented in this encounter Care Teams Shop Tailor Relationship Specialty Start Date End Date Castro Spain MD [address] [place] [address] PCP - General INFECTIOUS DISEASE 12/14/23 documented as of this encounter
--- OUTSIDE RECORDS SUMMARY | 2024-03-18 18:03 | XMS_ITS | Referral Summary ---
Author Organization [facility] Address [address] [place] [address] Care Team Providers Care Call Center Team Leader Name Role Phone Unavailable Primary Care Provider Unavailabl e Source Comments [facility],non-owned Affiliates and Associated Physician Practices is amultiple site organization consisting of ambulatory clinics and hospital sitesin [place], [place], [place] and [place]. This disclosure is being madepursuant to the Care Everywhere program and may not contain all information available regarding this patient. Last updated 17.[facility] [employer] Allergies Active Allergy Reactions Criticality Noted Date [...] Mass Index - - Plan of Treatment Not on file
--- OUTSIDE RECORDS SUMMARY | 2024-03-18 18:03 | XMS_ITS | Encounter Summary ---
Author Organization [facility] Address [address] [place] [address] Care Team Providers Care Office Machine Embossograph Operator Name Role Phone Unavailable Primary Care Provider Unavailabl e Encounter Details Date Type Department Care Team (Latest Contact Info) Description 07/06/2023 Travel Social History Tobacco Use Types Packs/Day Years Used Date Smoking Tobacco: Never Assessed Sex and Gender Information Value Date Recorded Sex Assigned at Not on file Gender Identity Not on file Sexual Orientation Not on file documented as of this encounter Plan of Treatment Not on file documented as of this encounter Visit Diagnoses Not on filedocumented in this encounter
--- OUTSIDE RECORDS SUMMARY | 2024-03-18 18:03 | XMS_ITS | Encounter Summary ---
Author Organization [facility] Address [facility]. [place], [place] [id number] [place] [id number] Care Team Providers Care Shale Miner Blasting Name Role Phone Castro Spain MD Primary Care Provider + Reason for Visit * Auth/Cert (Routine) Specialty Diagnoses / Procedures Referred By Zeferino t Referred To Contact Home Health Services Referral ID Status Reason Start Date Expiration Date Visits Re quested Visits Authorized [id number] 1 1 Encounter Details Date Type Department Care Team (Late st Contact Info) Description 01/04/2024 1:00 PM WAFER CUTTER Home Care Visit [address] [place], [place] [id number] Carson Bhat, CUSTOMER SUPPORT ASSISTANT [address] [place] [address] CUSTOMER SUPPORT ASSISTANT HOME VISIT Social History Tobacco Use Types Packs/Day Years [...] materials from doctor or pharmacy Often 12/15/2023 [facility] Utilities Answer Date Recorded In the [...] any time in the past 12 m [facility], were you homeless or living in a fci (including now)? No 12/08/2023 Sex and Gender Information Value Date Recorded Sex Assigned at Not on file Legal Sex Male 8:12 PM WAFER CUTTER Gender Identity Not on file Sexual Orientation Not on file documented as of this encounter Last Filed Vital Signs Vital Sign Reading Time Taken Comments Blood Pressure 98/62 01/04/2024 1:10 PM WAFER CUTTER Pulse 82 01/04/2024 1:10 PM WAFER CUTTER Temperature 36.3 ??C (97.3 ??F) 01/04/2024 1:10 PM CS T Respiratory Rate 18 01/04/2024 1:10 PM WAFER CUTTER Oxygen Saturation 97% 01/04/2024 1:10 PM WAFER CUTTER Inhaled Oxygen Concentration - - Weight - [...] +ESBL Blood. Added from external infection. Source: [facility]. 12/04/2022 documented as of this encounter Home Health Visit - Care Plan Visit Details Visit Type -CUSTOMER SUPPORT ASSISTANT - Home Visit Discipline -Physical Therapy Problems Problem Description Start Date Status Goals Interve ntions Decreased Functional Mobility Disciplines: PT 12/21/2023 Active 1 goal linked to scheduled/document ed intervention 1 goal intervention scheduled/documen reynaldo in this visit Collaboration of Care Disciplines: PT Collaboration for safe care. 12/21/2023 Active 3 goals linked to scheduled/document ed interventions 6 [...] doctor appointments by 01/06. Decreased Functional Mobility Progressing No Patient verbalizes understanding of medication regimen Description: Patient will verbalize understanding of medication regimen by 01/06. Collaboration of Care Met This Shift No Patient safety met through collaboration for safe care. Description: Clinicians will communicate patient care and safety needs during episode of care through 01/06. Collaboration of Care Met This Shift No PT - Homebound Status Description: Patient meets requirements of homebound status as evidenced by impaired gait and stability, decreased cardiac reserve, taxing effort to enter and exit the home, inability to leave the home without caregiver present, walker required, to leave the home. Collaboration of Care Met This Shift No Patient increases strength and/or functional mobility Description: Patient to demonstrate independence with LE HEP with increased LE MMT to 4/5 to promote improved mobility in/out of the home by 01/06 Decreased Strength Progressing No Patient improves balance and reduces fall risk Description: Patient/caregiver will verbalize a good understanding of home safety and fall prevention measures for a decreased risk of falling by 12/30 Patient to complete 2 stages of 4-stage balance test for improved balance and decreased fall risk by 01/06 Balance Deficit Met This Shift No Interventions Intervention Associated Problem/Goal Status Variance Visit Notes Gait Deficit Description: Gait training. Problem:Decreased Functional Mobility Goal:Patient improves functional mobility Completed Instructed patient in ambulation to improve gait pattern, endurance and functional mobility. Patient ambulates 150' with cane on level surfaces in home and no LOB while working on increasing step length, picking up feet to improve foot clearance, increasing heel strike/push off and bending knee's more during swing phase with patient showing fair return for short periods. Seated rest break after each trial due to reports of fatigue, weakness and pain increasing but able to increase distance from last attempt. Held stair training today due to rain but patient reports doing steps several times over the past week with use of walker. Medication Management Description: Cinician to review medications with patient each visit and report any changes to trimming caser and/or supervising PT. Problem:Collaboration of Care Goal:Patient verbalizes understanding of medication regimen Completed No changes noted this date. Assess Vital Signs Description: Obtain and record vital signs. Report to MD BP:??systolic blood pressure <90 or >160; diastolic blood pressure <60 or >90.?? Temperature:?? >100.5 F.?? Pulse: <60 or >100 bpm.??Respiratory Rate:?? <12 or >28 /min.?? SPO2: <90%. May check SPO2 as needed for initial assessment or dyspnea. ?? Problem:Collaboration of Care Goal:Patient safety met through collaboration for safe care. Completed Vitals taken and within appropriate parameters. Instruct Home Safety Description: Instruct patient on [...] 9. Non slip mats in bathroom. Patient verbalized a good understanding of all instructions. Plan Towards Discharge Description: Document Patient progress towards discharge. Problem:Collaboration of Care Goal:Patient safety met through collaboration for safe care. Completed Informed patient of possible discharge from physical therapy next visit. Care Coordination Description: Clinician to review plan of care with patient/caregivers(s). Patient/Caregiver(s) agree(s) to plan of care and agrees to participate in care.?? Problem:Collaboration of Care Goal:Patient safety met through collaboration for safe care. Completed Reviewed plan of care with patient and patient in agreement. Plan for Next Visit Description: Next visit plan summation Problem:Collaboration of Care Goal:Patient safety met through collaboration for safe care. Completed Informed patient of next therapy visit on 01/06/24 with patient in agreement. Decreased Strength Description: - Therapeutic exercise. - Establish home exercise program. Problem:Decreased Strength Goal:Patient increases strength and/or functional mobility Completed Instructed patient in lower extremity exercises to improve strength and functional mobility. Patient performed the following seated exercises: glut set, heel/toe raises, knee extensions, hip flexion and hip abduction x 15 each. Visual cues for initiation and verbal cues for technique, slow controlled movements, end range hold times and increase range of motion with patient showing improvement. Rest breaks during exercises due to fatigue and weakness but less in duration today compared to last visit. Instructed patient to perform exercises twice a day with patient verbalizing understanding. Balance Deficit Description: - Therapeutic exercise. - Establish or upgrade home program. - Implement balance training. - Perform home safety assessment and give recommendations to Caregiver. Problem:Balance Deficit Goal:Patient improves balance and reduces fall risk Completed Instructed patient in balance exercises to improve functional mobility and reduce risk of falls. Patient performed the following unsupported standing static balance exercises with stand by/contact guard assistance: decreased base of support eyes closed for 30 seconds x 2 and modified tandem stance for 2-15 seconds max x multiple attempts. Increase sway on modified tandem stance causing patient to place hands on counter or need assistance from therapist but able to hold position slightly longer as reps progressed. Verbal cues to improve ankle strategies with patient showing fair return. documented in this encounter Care Teams Shale Miner Blasting Relationship Specialty Start Date End Date Castro Spain MD [address] [place] [address] PCP - General INFECTIOUS DISEASE 12/14/23 documented as of this encounter
--- OUTSIDE RECORDS SUMMARY | 2024-03-18 18:03 | XMS_ITS | Encounter Summary ---
Author Organization [facility] Address [facility]. [place], [place] [address] [place] [id number] Care Team Providers Care Drum Printer Name Role Phone Castro Spain MD Primary Care Provider + Reason for Visit * Auth/Cert (Routine) Specialty Diagnoses / Procedures Referred By Zeferino t Referred To Contact Home Health Services Referral ID Status Reason Start Date Expiration Date Visits Re quested Visits Authorized [id number] 1 1 Encounter Details Date Type Department Care Team (Late st Contact Info) Description 12/28/2023 12:45 PM CDT Home Care Visit [address] [place] [address] Carson Bhat, MOVEMENT THERAPIST [address] [place] [address] MOVEMENT THERAPIST HOME VISIT Social History Tobacco Use Types [...] materials from doctor or pharmacy Often 12/15/2023 [facility] Utilities Answer Date Recorded In the [...] any time in the past 12 m [facility], were you homeless or living in a longterm (including now)? No 12/08/2023 Sex and Gender Information Value Date Recorded Sex Assigned at Not on file Legal Sex Male 8:12 PM FIELD HAND Gender Identity Not on file Sexual Orientation Not on file documented as of this encounter Last Filed Vital Signs Vital Sign Reading Time Taken Comments Blood Pressure 104/66 12/28/2023 12:37 PM CDT Pulse 76 12/28/2023 12:37 PM CDT Temperature 36.4 ??C (97.6 ??F) 12/28/2023 12:37 PM C DT Respiratory Rate 18 12/28/2023 12:37 PM CDT Oxygen Saturation 98% 12/28/2023 12:37 PM CDT Inhaled Oxygen Concentration - - Weight - - Height - - Body Mass Index - - documented in this encounter Functional Status * Are you deaf or do you have serious difficulty hearing Answer Date of Assessment Author Status No 12/08/2023 10:00 PM CDT Ana Arana RN Active * Are you blind or do you have serious difficulty seeing, even when wearing glasses? Answer Date of Assessment Author Status Yes 12/08/2023 10:00 PM NADINET Ana Arana RN Active * Do you have serious difficulty walking or climbing stairs? Answer Date of Assessment Author Status Yes 12/08/2023 10:00 PM Ana Kim RN Active * Do you have difficulty dressing or bathing? Answer Date of Assessment Author Status Yes 12/08/2023 10:00 PM NADINET Ana Arana RN Active * Because of a physical, [...] Author Consistently take medications as Prescribed General Delia Shipley RN Health - patient able to perform ADLs independently Lifestyle No Renee Price RN documented as of this encounter Visit Diagnoses Not on filedocumented in this encounter Additional Health Concerns Infection Onset Date Last Indicated Resolved Time ESBL - Extended Spectrum Bet a-lactamase Comment:12/04/22 +ESBL Blood. Added from external infection. Source: [facility]. 12/04/2022 documented as of this encounter Home Health Visit - Care Plan Visit Details Visit Type -MOVEMENT THERAPIST - Home Visit Discipline -Physical Therapy Problems [...] decreased fall risk by 01/06 Balance Deficit Progressing No Interventions Intervention Associated Problem/Goal Status Variance Visit Notes Gait Deficit Description: Gait training. Problem:Decreased Functional Mobility Goal:Patient improves functional mobility Completed Instructed patient in ambulation to improve gait pattern, endurance and functional mobility. Patient ambulates 45' and 75' with cane on level surfaces in home and no LOB. Patient demonstrates slow pace, decreased step length, decreased step height with left worse than right, decreased knee flexion during swing phase and decreased heel strike/push off. Verbal cues to increase step length, supervisor opening and picking feet to improve foot clearance, increase heel strike/push off and bend knee's more during swing phase with patient showing fair return for short periods before needing cues again. Seated rest break after each trial due to reports of fatigue, weakness and pain increasing. Medication Management Description: Cinician to review medications with patient each visit and report any changes to correctional case manager and/or supervising PT. Problem:Collaboration of Care Goal:Patient [...] through collaboration for safe care. Completed Patient progressing towards goals. Care Coordination Description: Clinician to review plan [...] met through collaboration for safe care. Completed Continue working on fall prevention techniques, lower extremity exercises, gait training and balance next therapy visit. Informed patient of next therapy visit on 12/30/23 with patient in agreement. Decreased Strength Description: - Therapeutic exercise. - Establish home exercise program. Problem:Decreased Strength Goal:Patient increases strength and/or functional mobility Completed Instructed patient in lower extremity exercises to improve strength and functional mobility. Patient performed the following seated exercises: glut set, heel/toe raises, knee extensions, hip flexion and hip abduction x 10-15 each. Visual cues for demonstration and verbal cues for technique, slow controlled movements, end range hold times, increase range of motion and proper breathing techniques with patient showing improvement. Rest breaks during exercises due to fatigue and weakness but patient tolerates exercises well. Instructed patient to perform exercises twice a [...] decreased base of support eyes closed for 25 seconds max and modified tandem stance for 7 seconds max x multiple attempts. Patient demonstrates increase sway during exercises causing patient to place hands on counter or need assistance from therapist but able to hold eyes closed position longer as reps progressed. Verbal cues to improve ankle strategies with patient showing fair return. Will progress as tolerated. documented in this encounter Care Teams Drum Printer Relationship Specialty Start Date End Date Castro Spain MD [address] [place] [address] PCP - General INFECTIOUS DISEASE 12/14/23 documented as of this encounter
--- OUTSIDE RECORDS SUMMARY | 2024-03-18 18:03 | XMS_ITS | Encounter Summary ---
Author Organization [facility] Address [facility] [place] [address] [place] [address] Care Team Providers Care Social Media Executive Name Role Phone Castro Spain MD Primary Care Provider + Reason for Visit * Auth/Cert (Routine) Specialty Diagnoses / Procedures Referred By Zeferino plata Referred To Contact Home Health Services Referral ID Status Reason Start Date Expiration Date Visits Re quested Visits Authorized [id number] 1 1 Encounter Details Date Type Department Care Team (Late st Contact Info) Description 01/06/2024 1:00 PM GRAND JURY DEPUTY SHERIFF Home Care Visit [facility] [address] [place] [address] [place] [address] Vesna Alcazar, PT [address] [place], [place] [address] PT OASIS DISCHARGE Social History Tobacco Use Types Packs/Day Years [...] or pharmacy Patient declines to respond 01/06/2024 [facility] Utilities Answer Date Recorded In the past 12 months has th e [employer], gas, oil, or water company threatened to [...] time in the past 12 m [facility], were you homeless or living in a custodial (including now)? 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 Added from external infection. Source: [facility]. 12/04/2022 documented as of this encounter Home Health Visit - Care Plan Visit Details Visit Type -PT - OASIS Disch arge Discipline -Physical Therapy Problems Problem Description Start Date Status Goals Interve ntions Decreased Functional Mobility Disciplines: PT 12/21/2023 Resolved on 01/06/2024 1 goal linked to scheduled/documen reynaldo intervention 1 goal intervention scheduled/documen reynaldo in this visit Collaboration of Care Disciplines: PT Collaboration for safe care. 12/21/2023 Resolved on 01/06/2024 3 goals linked to scheduled/documen reynaldo interventions 6 goal interventions scheduled/documen reynaldo in this visit Decreased Strength Disciplines: PT Decreased strength in lower extremities. 12/21/2023 Resolved on 01/06/2024 1 goal linked to scheduled/documen reynaldo intervention 1 goal intervention scheduled/documen reynaldo in this visit Balance Deficit Disciplines: PT Impaired standing balance with potential safety problems. 12/21/2023 Resolved on 01/06/2024 1 goal linked to scheduled/documen reynaldo intervention 1 goal intervention scheduled/documen reynaldo in this visit Goals Goal Associated Problem Outcome Goal Met? Visit Notes Patient improves functional mobility Description: Patient to asc/desc 4 steps with device indpeendenlty to enter/leave home for appts by 12/30 Patient to ambulate independently indoors with device as needed for 100 ft to assist with doctor appointments by 01/06. Decreased Functional Mobility Completed Yes Patient verbalizes understanding of medication regimen Description: Patient will verbalize understanding of medication regimen by 01/06. Collaboration of Care Completed Yes Patient safety met through collaboration for safe care. Description: Clinicians will communicate patient care and safety needs during episode of care through 01/06. Collaboration of Care Completed Yes PT - Homebound Status Description: Patient meets requirements of homebound status as evidenced by impaired gait and stability, decreased cardiac reserve, taxing effort to enter and exit the home, inability to leave the home without caregiver present, walker required, to leave the home. Collaboration of Care Completed Yes Patient increases strength and/or functional mobility Description: Patient to demonstrate independence with LE HEP with increased LE MMT to 4/5 to promote improved mobility in/out of the home by 01/06 Decreased Strength Completed Yes Patient improves balance and reduces fall risk Description: Patient/caregiver will verbalize a good understanding of home safety and fall prevention measures for a decreased risk of falling by 12/30 Patient to complete 2 stages of 4-stage balance test for improved balance and decreased fall risk by 01/06 Balance Deficit Completed Yes Interventions Intervention Associated Problem/Goal Status Variance Visit Notes Gait Deficit Description: Gait training. Problem:Decreased Functional Mobility Goal:Patient improves functional mobility Scheduled with variance Patient unable non visit dc Medication Management Description: Cinician to review medications with patient each visit and report any changes to patient case manager and/or supervising PT. Problem:Collaboratio n of Care Goal:Patient verbalizes understanding of medication regimen Scheduled with variance Patient unable non visit dc Plan Towards Discharge Description: Document Patient progress towards discharge. Problem:Collaboratio n of Care Goal:Patient safety met through collaboration for safe care. Completed dc from PT and agency Plan for Next Visit Description: Next visit plan summation Problem:Collaboratio n of Care Goal:Patient safety met through collaboration for safe care. Completed dc from pt and agency Assess Vital Signs Description: Obtain and record vital signs. Report to MD BP:??systolic blood pressure <90 or >160; diastolic blood pressure <60 or >90.?? Temperature:?? >100.5 F.?? Pulse: <60 or >100 bpm.??Respiratory Rate:?? <12 or >28 /min.?? SPO2: <90%. May check SPO2 as needed for initial assessment or dyspnea. ?? Problem:Collaboratio n of Care Goal:Patient safety met through collaboration for safe care. Scheduled with variance Patient unable non visit dc Instruct Home Safety Description: Instruct patient on strategies/modificatio ns to home environment. Problem:Collaboratio n of Care Goal:Patient safety met through collaboration for safe care. Scheduled with variance Patient unable non visit dc Care Coordination Description: Clinician to review plan of care with patient/caregivers(s). Patient/Caregiver(s) agree(s) to plan of care and agrees to participate in care.?? Problem:Collaboratio n of Care Goal:Patient safety met through collaboration for safe care. Scheduled with variance Patient unable non visit dc Decreased Strength Description: - Therapeutic exercise. - Establish home exercise program. Problem:Decreased Strength Goal:Patient increases strength and/or functional mobility Scheduled with variance Patient unable non visit dc Balance Deficit Description: - Therapeutic exercise. - Establish or upgrade home program. - Implement balance training. - Perform home safety assessment and give recommendations to Caregiver. Problem:Balance Deficit Goal:Patient improves balance and reduces fall risk Scheduled with variance Patient unable non visit dc documented in this encounter Care Teams Social Media Executive Relationship Specialty Start Date End Date Castro Spain MD [address] [place] [address] PCP - General INFECTIOUS DISEASE 12/14/23 documented as of this encounter
--- OUTSIDE RECORDS SUMMARY | 2024-03-18 18:03 | XMS_ITS | Patient Health Summary ---
Author Organization [facility] Address [address] [place] [address] Care Team Providers Care Baling Machine Operator Name Role Phone Unavailable Primary Care Provider Unavailabl e Note from [facility],non-owned Affiliates and Associated Physician Practices is amultiple site organization consisting of ambulatory clinics and hospital sitesin [place], [place], [place] and [place]. This disclosure is being madepursuant to the Care Everywhere program and may not contain all information available regarding this patient. Last updated 17.[facility] Allergies * Donovan Inhibitors(Anaphylaxis,Other) -High Criticality Social History Tobacco Use Types Packs/Day Years [...] - - Body Mass Index - - Procedures * GLUCOSE - POINT OF CARE(Performed 07/06/2023) * COMPREHENSIVE METABOLIC PANEL(Performed 07/06/2023) * CBC W AUTO DIFFERENTIAL(Performed 07/06/2023) Results * GLUCOSE - POINT OF CARE (07/06/2023 5:53 PM CDT) [facility] Glucose WB/POC 102 70 - 106 mg/dL 07/06/2023 6:03 PM CDT [facility] Specimen Type Cap Fingerstick 2023 6:03 PM CDT [facility] Blood BLOOD SPECIMEN / Unknown 07/06/2023 5:53 PM CDT 07/06/2023 6:03 PM CDT Provider Unknown LAB - POINT OF CARE ORDERABLES Performing Organization Address City/State/[facility] [[email or web address]] Co de Phone Number [facility] [address] [place], [place] [phone] * (ABNORMAL) CBC W AUTO DIFFERENTIAL (07/06/2023 3:57 PM CDT) [facility] WBC 9.8 4.0 - 10.7 x10E9/L 07/06/2023 4:00 PM CDT [facility] RBC Count 3.76(L) 4.30 - 5.80 x10E12/L 07/06/2023 4:00 PM CDT [facility] Hemoglobin 11.4(L) 13.3 - 17.5 g/dL 07/06/2023 4:00 PM CDT [facility] Hematocrit 33.5(L) 38.7 - 51.1 % 07/06/2023 4:00 PM CDT [facility] MCV 89.1 80.0 - 98.0 fL 07/06/2023 4:00 PM CDT [facility] MCH 30.3 26.7 - 33.6 pg 07/06/2023 4:00 PM CDT [facility] MCHC 34.0 31.7 - 36.3 g/dL 07/06/2023 4:00 PM CDT [facility] RDW-CV 18.4(H) 11.3 - 14.8 % 07/06/2023 4:00 PM CDT [facility] Platelet Count 307 150 - 420 x10E9/L 07/06/2023 4:00 PM CDT [facility] MPV 9.3 7.8 - 11.4 fL 07/06/2023 4:00 PM CDT [facility] Neutrophil % 54.2 41.0 - 74.0 % 07/06/2023 4:00 PM CDT [facility] Lymphocyte % 32.6 17.0 - 47.0 % 07/06/2023 4:00 PM CDT [facility] Monocyte % 4.8 3.0 - 11.0 % 07/06/2023 4:00 PM CDT [facility] Eosinophil % 7.2(H) 0.0 - 7.0 % 07/06/2023 4:00 PM CDT [facility] Basophil % 0.9 0.0 - 1.6 % 07/06/2023 4:00 PM CDT [facility] Immature Granulocytes % 0.3 0.0 - 1.0 % 07/06/2023 4:00 PM CDT [facility] Neutrophil Absolute 5.31 1.60 - 7.50 x10E9/L 07/06/2023 4:00 PM CDT [facility] Lymphocyte Absolute 3.19 1.00 - 4.40 x10E9/L 07/06/2023 4:00 PM CDT [facility] Monocyte Absolute 0.47 0.15 - 1.00 x10E9/L 07/06/2023 4:00 PM CDT [facility] Eosinophil Absolute 0.70(H) 0.00 - 0.60 x10E9/L 07/06/2023 4:00 PM CDT [facility] Basophil Absolute 0.09 0.00 - 0.13 x10E9/L 07/06/2023 4:00 PM CDT [facility] Blood BLOOD SPECIMEN / Unknown Venipuncture / Unknown 07/06/2023 3:57 PM CDT 07/06/2023 3:57 PM CDT Herlinda Gordillo PA-C LAB - HEMATOLOGY ORDERABLES Performing Organization Address City/State/[facility] [[email or web address]] Co de Phone Number [facility] [address] [place], [place] [phone] * (ABNORMAL) COMPREHENSIVE METABOLIC PANEL (07/06/2023 3:57 PM CDT) [facility] Glucose 52(LL) 70 - 105 mg/dL 07/06/2023 4:21 PM CDT [facility] Sodium 134(L) 136 - 145 mmol/L 07/06/2023 4:21 PM CDT [facility] Potassium 3.8 3.5 - 5.1 mmol/L 07/06/2023 4:21 PM CDT [facility] Chloride 98 98 - 107 mmol/L 07/06/2023 4:21 PM CDT [facility] CO2 20(L) 22 - 29 mmol/L 07/06/2023 4:21 PM CDT [facility] Calcium 8.9 8.4 - 10.4 mg/dL 07/06/2023 4:21 PM CDT [facility] Anion Gap 16 6 - 16 mmol/L 07/06/2023 4:21 PM CDT [facility] BUN 9 7 - 26 mg/dL 07/06/2023 4:21 PM CDT [facility] Creatinine 3.11(H) 0.72 - 1.25 mg/dL 07/06/2023 4:21 PM CDT [facility] Alkaline Phosphatase 121 40 - 150 U/L 07/06/2023 4:21 PM CDT [facility] ALT 28 0 - 55 U/L 07/06/2023 4:21 PM CDT [facility] AST 39(H) 5 - 34 U/L 07/06/2023 4:21 PM CDT [facility] Protein Total 7.6 6.4 - 8.3 gm/dL 07/06/2023 4:21 PM CDT [facility] Albumin 3.7 3.4 - 5.0 gm/dL 07/06/2023 4:21 PM CDT [facility] Bilirubin Total 0.5 0.2 - 1.2 mg/dL 07/06/2023 4:21 PM CDT [facility] eGFR by CKD-EPI 21(L) >=90 mL/min/1.7 3 m2 07/06/2023 4:21 PM CDT [facility] Blood BLOOD SPECIMEN / Unknown Venipuncture / Unknown 07/06/2023 3:57 PM CDT 07/06/2023 3:57 PM CDT Herlinda Gordillo PA-C LAB - CHEMISTRY ORDERABLES [facility] [address] [place] [address]
--- OUTSIDE RECORDS SUMMARY | 2024-03-18 18:03 | XMS_ITS | Encounter Summary ---
Author Organization [facility] Address [address] [place] [address] Care Team Providers Care Video Editor Name Role Phone Unavailable Primary Care Provider Unavailabl e Encounter Details Date Type Department Care Team (Latest Contact Info) Description 08/24/2023 Travel Social History Tobacco Use Types Packs/Day [...]
--- OUTSIDE RECORDS SUMMARY | 2024-03-18 18:03 | XMS_ITS | Encounter Summary ---
Author Organization [facility] Address [facility]. [place], [place] [address] [place] [address] Care Team Providers Care Human Resources District Manager Name Role Phone Castro Spain MD Primary Care Provider + Reason for Visit * Auth/Cert (Routine) Specialty Diagnoses / Procedures Referred By Zeferino t Referred To Contact Home Health Services Referral ID Status Reason Start Date Expiration Date Visits Re quested Visits Authorized [id number] 1 1 Encounter Details Date Type Department Care Team (Late st Contact Info) Description 01/04/2024 12:15 PM MONKEY BREEDER Home Care Visit [address] [place] [address] [place] [address] Julienne Jorge, HOME PLANNING CONSULTANT SALESPERSON CASE COMMUNICATION Social History Tobacco Use Types [...] materials from doctor or pharmacy Often 12/15/2023 [facility] Utilities Answer Date Recorded In the past 12 months has th e electric, [employer], oil, or water [employer] threatened to shut off services in your [...] were you homeless or living in a long term (including now)? No 12/08/2023 Sex and Gender Information Value Date Recorded Sex Assigned at Not on file Legal Sex Male 8:12 PM MONKEY BREEDER Gender Identity Not on file Sexual Orientation [...] +ESBL Blood. Added from external infection. Source: [facility]. 12/04/2022 documented as of this encounter Care Teams Human Resources District Manager Relationship Specialty Start Date End Date Castro Spain MD [address] [place] [address] PCP - General INFECTIOUS DISEASE 12/14/23 documented as of this encounter
--- OUTSIDE RECORDS SUMMARY | 2024-03-18 18:04 | XMS_ITS | Encounter Summary ---
Author Organization [facility] Address [facility]. [place], [place] [address] [place] [address] Care Team Providers Care Telecommunications Professional Name Role Phone Castro Spain MD Primary Care Provider + Reason for Visit * Auth/Cert (Routine) Specialty Diagnoses / Procedures Referred By Zeferino plata Referred To Contact Home Health Services Referral ID Status Reason Start Date Expiration Date Visits Re quested Visits Authorized [id number] 1 1 Encounter Details Date Type Department Care Team (Late st Contact Info) Description 12/16/2023 1:15 PM CDT Home Care Visit [address] [place] [address] Anne Muro LPN AIDE HOME VISIT Social History Tobacco Use Types [...] materials from doctor or pharmacy Often 12/15/2023 [facility] Utilities Answer Date Recorded In [...] any time in the past 12 m [facility], were you homeless or living in a detention (including now)? 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 Added from external infection. Source: [facility]. 12/04/2022 documented as of this encounter Care Teams Telecommunications Professional Relationship Specialty Start Date End Date Castro Spain MD [address] [place] [address] PCP - General INFECTIOUS DISEASE 12/14/23 documented as of this encounter
--- OUTSIDE RECORDS SUMMARY | 2024-03-18 18:04 | XMS_ITS | Encounter Summary ---
Author Organization [facility] Address [facility] [place] [address] [place] [address] Care Team Providers Care Ground Support Equipment Fitter Name Role Phone Castro Spain MD Primary Care Provider + Reason for Visit * Reason Onset Date Comments Follow Up Call 12/08/2023 BRENDA 12/07- 4 Encounter Details Date Type Department Care Team (Latest Contact Info) Description 12/16/2023 Hospital Follow-up Call [facility] [place] [address] Maris Solis LPN Follow Up Call (BRENDA 12/07-12/14/23) Social History Tobacco Use Types Packs/Day Years [...] materials from doctor or pharmacy Often 12/15/2023 [facility] Utilities Answer Date Recorded In the past 12 months has th e electric, gas, oil, or water [employer] threatened to shut off services in your [...] any time in the past [address] [facility], were you homeless or living in a snf (including now)? 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 Added from external infection. Source: [place]. 12/04/2022 documented as of this encounter Care Teams Ground Support Equipment Fitter Relationship Specialty Start Date End Date Castro Spain MD [address] [place] [id number] PCP - General INFECTIOUS DISEASE 12/14/23 documented as of this encounter
--- OUTSIDE RECORDS SUMMARY | 2024-03-18 18:05 | XMS_ITS | Encounter Summary ---
Author Organization [facility] Address [address] [place] [address]. [place], [place] [address] [place] [address] Care Team Providers Care Restrike Hammer Operator Name Role Phone Davis Mercedes DO Primary Care Provider [phone] Encounter Details Date Type Department Care Team (Latest Contact Info) Description 05/31/2020 Travel Social History Tobacco Use Types Packs/Day Years Used Date Smoking Tobacco: Every Day Smokeless Tobacco: Never Alcohol Use Standard Drinks/Week Comments Yes 8.3 (1 standard drink = 0.6 oz p ure alcohol) Sex and Gender Information Value Date Recorded Sex Assigned at Not on file Legal Sex Male 8:12 PM CUSTOMS AGENT Gender Identity Not on file Sexual Orientation Not on file COVID-19 Exposure Response Date Recorded In the last month, have you been in contact with someone who was confirmed or suspected to have Coronavirus / COVID-19? No / Unsure 05/31/2020 12:31 PM CDT documented as of this encounter Functional Status * RETIRED Are you deaf or do you have serious difficulty hearing Answer Date of Assessment Author Status No 03/06/2020 3:01 AM CUSTOMS AGENT Activ e * RETIRED Are you blind or do you have serious difficulty seeing, even when wearing glasses? Answer Date of Assessment Author Status No 03/06/2020 3:01 AM CUSTOMS AGENT Activ e * Do you have serious difficulty walking or climbing stairs? Answer Date of Assessment Author Status Yes 03/06/2020 3:01 AM CUSTOMS AGENT Sheridan Marks RN Active * Do you have difficulty dressing or bathing? Answer Date of Assessment Author Status Yes 03/06/2020 3:01 AM Sheridan Ramírez RN Active * Because of a physical, mental, or emotional condition, do you have difficulty doing errands alone such as visiting a doctor's office or shopping? Answer Date of Assessment Author Status Yes 03/06/2020 3:01 AM Sheridan Ramírez RN Active documented as of this encounter Mental Status * Because of a physical, mental, or emotional condition, do you have serious difficulty concentrating, remembering, or making decisions? Answer Entry Date Author Status No 03/06/2020 3:01 AM Sheridan Ramírez RN Active documented in this encounter Plan of Treatment Not on file documented as of this encounter Goals Goal Patient Goal Type Associated Problems Recent Progress Patient-Stated? Author Consistently take medications as Prescribed General No Delia Salinas RN documented as of this encounter Visit Diagnoses Not on filedocumented in this encounter Care Teams Restrike Hammer Operator Relationship Specialty Start Date End Date Davis Mercedes DO PCP - General FAMILY PRACTICE 05/31/20 12/07/23 documented as of this encounter
--- OUTSIDE RECORDS SUMMARY | 2024-03-18 18:05 | XMS_ITS | Encounter Summary ---
Author Organization [facility] Address [address] [place] [address]. [place], [place] [id number] [place] [address] Care Team Providers Care Investment Counselor Name Role Phone Daren Davis Jarrett DO Primary Care Provider [phone] Encounter Details Date Type Department Care Team (Latest Contact Info) Description 08/06/2023 Travel Social History Tobacco Use Types Packs/Day Years Used Date Smoking Tobacco: Every Day Cigarettes 0.5 47.6 Started: [birth year]/05/1974 Smokeless Tobacco: Never Alcohol Use Standard Drinks/Week Comments Yes 8.3 (1 standard drink = 0.6 oz p ure alcohol) Sex and Gender Information Value Date Recorded Sex Assigned at Not on file Legal Sex Male 8:12 PM CIA AGENT Gender Identity Not on file Sexual Orientation Not on file documented as of this encounter Functional Status * RETIRED Are you deaf or do you have serious difficulty hearing Answer Date of Assessment Author Status No 03/06/2020 3:01 AM CIA AGENT Activ e * RETIRED Are you blind or do you have serious difficulty seeing, even when wearing glasses? Answer Date of Assessment Author Status No 03/06/2020 3:01 AM CIA AGENT Activ e * Do you have serious difficulty walking or climbing stairs? Answer Date of Assessment Author Status Yes 03/06/2020 3:01 AM CIA AGENT Sheridan Marks RN Active * Do [...] on filedocumented in this encounter Care Teams Investment Counselor Relationship Specialty Start Date End Date Davis Mercedes DO PCP - General FAMILY PRACTICE 05/31/20 12/07/23 documented as of this encounter
--- OUTSIDE RECORDS SUMMARY | 2024-03-18 18:05 | XMS_ITS | Encounter Summary ---
Author Organization [facility] Address [facility]. [place], [place] [id number] [place] [address] Care Team Providers Care Bicycle Inspector Name Role Phone Castro Spain MD Primary Care Provider + Reason for Visit * Auth/Cert (Routine) Specialty Diagnoses / Procedures Referred By Zeferino t Referred To Contact Home Health Services Referral ID Status Reason Start Date Expiration Date Visits Re quested Visits Authorized [id number] 1 1 Encounter Details Date Type Department Care Team (Late st Contact Info) Description 12/15/2023 12:30 PM CDT Home Care Visit [address] [place] [address] Sara Hunter RN SN OASIS START OF CARE Social History Tobacco Use Types Packs/Day Years [...] or pharmacy Patient declines to respond 01/06/2024 [facility] Utilities Answer Date Recorded In the [...] any time in the past 12 m [facility], were you homeless or living in a [facility] (including now)? 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 Answer Date of Assessment Author Status Yes 12/08/2023 10:00 PM NADINET Ana Arana RN Active * Do you have difficulty [...] Date Author Status No 12/08/2023 10:00 PM Aan Kim RN Active documented in this encounter [...] +ESBL Blood. Added from external infection. Source: [facility]. 12/04/2022 documented as of this encounter Home Health Visit - Care Plan Visit Details Visit Type -SN - OASIS Start of Care Discipline -Alf Problems Problem Description Start Date Status Goals Interve ntions Pain/Physical Discomfort Disciplines: SN Patient is experiencing pain/physical discomfort. 12/15/2023 Active 1 goal linked to scheduled/document ed intervention 2 goal interventions scheduled/document ed in this visit Collaboration of Care Disciplines: SN Collaboration for safe care. 12/15/2023 Active 5 goals linked to scheduled/document ed interventions 8 goal interventions scheduled/document ed in this visit Fall Precautions Disciplines: SN Patient at risk for falls or has had recent fall occurrence(s). 12/15/2023 Active 1 goal linked to scheduled/document ed intervention 2 goal interventions scheduled/document ed in this visit Alteration in GI/ Status - Other Disciplines: SN Care related to chronic urinary tract infection and sepsis. 12/15/2023 Active 1 goal linked to scheduled/document ed intervention 2 goal interventions scheduled/document ed in this visit Nutritional Status Disciplines: SN, LOCKSTITCH CUP SETTER Care related to deficiency in nutritional status. 12/15/2023 Active 1 goal linked to scheduled/document ed intervention 1 goal intervention scheduled/document ed in this visit Incontinence Disciplines: SN, LOCKSTITCH CUP SETTER Care related to bladder incontinence. 12/15/2023 Active 1 goal linked to scheduled/document ed intervention 2 goal interventions scheduled/document ed in this visit Risk for Skin Breakdown Disciplines: SN Risk for skin breakdown related to urinary incontinence. 12/15/2023 Active 1 goal linked to scheduled/document ed intervention 1 goal intervention scheduled/document ed in this visit Goals Goal Associated Problem Outcome Goal Met? Visit Notes Patient's pain/physical discomfort will be reduced to the level of patient's stated goal. Description: - Patient's pain/physical discomfort will be reduced to the level of patient's stated goal by 01/04/24. - Patient's desired pain goal is 0. - Patient and Caregiver will verbalize understanding of the pain management plan by 12/24/23. Pain/Physical Discomfort Progressing No Hosptial Readmission Reduction Description: Hospital Readmission Reduction - Hospital Readmission Reduction - High Risk (7 and greater risk factors). Patient's risk number is 8. Hospital Readmission will be avoided during the first 60-day episode of Homecare through frequency of assessment visits. Collaboration of Care Progressing No Patient safety met through collaboration for safe care. Description: STG: Patient will be able to verbalize safety issues as identified and make changes to increase safety by 12/24/23 LTG: Clinicians will communicate patient care and safety needs during episode of care through 01/04/24 Collaboration of Care Progressing No Nutritional Status for Optimal Health Description: Nutritional goals: STG: Patient will verbalize importance of adequate nutrition and fluid intake by 12/24/23 LTG: Patient will demonstrate adequate nutritional status as evidenced by stabilization of weight and intake of required nutrients for optimal health and functioning by 01/04/24 Collaboration of Care Progressing No Patient verbalizes understanding of medication regimen Description: Medication regimen goals: STG: Patient and Caregiver will verbalize understanding of medication regimen by 12/24/23 LTG: Patient and caregiver will continue to compliant with medication regimen and understand medication frequency,dosage,and administration through 01/04/24 Collaboration of Care Progressing No Patient meets homebound requirements. Description: Patient meets requirements of homebound status as evidenced by fatigues easily, impaired/poor balance gait, decreased endurance to recent illness, fall risk, gait limited to house distances, impaired driving ability, pain/weakness due to illness. Collaboration of Care Met This Shift No Patient/caregiver maintains a safe environment. Description: STG: patient will verbalise understanding of home safety and fall prevention measures for decreased fall risk by 12/24/23 LTG: Patient/caregiver will demonstrate ability to maintain a safe environment without injuries/falls by 01/04/24 Fall Precautions Progressing No Patient GI/ care needs met without signs/symptoms of complications Description: Patient and Caregiver verbalizes relief of symptoms and is knowledgeable in signs and symptoms to report to MD by 12/24/23. Patient will remain free of s/s by 01/04/24 Alteration in GI/ Status - Other Progressing No Patient GI/ care needs met without signs/symptoms of complications Description: - Patient and Caregiver will have adequate nutrition through oral intake through 12/24/23. - Patient and Caregiver will maintain weight by 01/04/24. Nutritional Status Progressing No Patient GI/ care needs met without signs/symptoms of complications Description: Patient will improve awareness of when he is incontinent et to change depends more frequently by 12/24/23 Patient will have reduced episodes of incontinence or demonstrate satisfactory management by 01/04/24. Incontinence Progressing No Patient verbalizes understanding of infection prevention strategies and methods to prevent development or worsening of pressure injuries Description: Patient and Caregiver will verbalize understanding of infection prevention strategies and methods to prevent development or worsening of pressure injuries by 12/24/23. Patient will remain free from pressure sores by 01/04/24 Risk for Skin Breakdown No Interventions Intervention Associated Problem/Goal Status Variance Visit Notes Assess Pain Description: -Perform comprehensive pain assessment of patient's level of pain using Numeric pain scale and assess effectiveness of current pain regimen. -Current medical management for pain is Elbert. If no changes or concerns check complete (see Pain Assessment). Problem:Pain/Physica l Discomfort Goal:Patient's pain/physical discomfort will be reduced to the level of patient's stated goal. Completed Instruct on Management of Pain Description: - Teach principles of pain management and involve Patient and Caregiver in developing pain control regimen. - Instructed on non-pharmacological pain reduction techniques. - Instruct Patient and Caregiver on the cause(s) of pain. - Instruct Patient and Caregiver to call Home Health for unsatisfactory pain relief. - Offer written material related to pain medication to Patient and Caregiver. - Instruct Patient and Caregiver on administration and safe keeping of pain medications and the need to keep accurate records of dosages and times. - Provide Patient and Caregiver with a recording tool to enter pain level, situation, medication dosage, and effect of administered medications. Problem:Pain/Physica l Discomfort Goal:Patient's pain/physical discomfort will be reduced to the level of patient's stated goal. Completed Skilled nurse instructed pt et caregiver, pt et caregiver verbalized understanding. Hospitalization Risk Description: Instruct Patient and Caregiver in minimizing hospitalization risk related to More than 1 Hospitalization or ED visit in past 12 months, History of Falls, Discharged from Hospital or SNF, Low Socioeconomic Status or Financial Concerns, Home Safety Risks, Needs help managing Medications, Low Literacy Level, More than 2 Secondary Diagnoses and ADL Assistance Needed. Problem:Collaboratio n of Care Goal:Hosptial Readmission Reduction Completed Skilled nurse instructed pt et caregiver, pt et caregiver verbalized understanding. Assess Vital Signs Description: Obtain and record vital signs. Report to MD. PAPPAS:??systolic blood pressure <90 or >160; diastolic blood pressure <60 or >90.?? Temperature:?? >100.5 F.?? Pulse: <60 or >100 bpm.??Respiratory Rate:?? <12 or >28 /min.?? SPO2: <90%. May check SPO2 as needed for initial assessment or dyspnea. ?? Problem:Collaboratio n of Care Goal:Patient safety met through collaboration for safe care. Completed Insurance Verification Description: Verify with patient/caregiver current insurance coverage. Problem:Collaboratio n of Care Goal:Patient safety met through collaboration for safe care. Completed Patient's coverage status: No change in coverage Plan for Next Visit Description: Next visit plan summation Problem:Collaboratio n of Care Goal:Patient safety met through collaboration for safe care. Completed Next visit scheduled 12/21/23 for assessment et education; Patient and Caregiver aware of and agreeable to plan. Advised to call Agency for non-emergent questions/concerns. Instruct Home Safety Description: Instruct patient and caregiver on strategies/modification s to home environment. Patient up as tolerated with walker or lesser device or no device as directed. Problem:Collaboratio n of Care Goal:Patient safety met through collaboration for safe care. Completed Skilled nurse instructed pt et caregiver, pt et caregiver verbalized understanding. Instruct Disaster/Evacuation Plan Description: Instruct in planning and execution of disaster/evacuation plan. Assist Patient and Caregiver in development or revision of plan as indicated. Problem:Collaboratio n of Care Goal:Patient safety met through collaboration for safe care. Completed Skilled nurse instructed pt et caregiver, pt et caregiver verbalized understanding. Medication Reconciliation Description: - Review and identify unnecessary therapeutic duplication. Each clinician to perform bottle check weekly on their first visit of the week. - Patient to take medications from pill bottles set up by Caregiver Problem:Collaboratio n of Care Goal:Patient verbalizes understanding of medication regimen Completed Medication reconciliation performed with weekly bottle check. Medication Management Description: - Assess Patient and Caregiver ability to manage medications. Provide detailed instruction on proper administration and medication management. - Instruct Patient and Caregiver in medication administration, purpose, dosages, preparation, scheduling, side effects, food/drug & drug/drug interactions, storage, and potential complications. Problem:Collaboratio n of Care Goal:Patient verbalizes understanding of medication regimen Completed Home medication management developed, discussed, instructed, reinforced, reviewed with patient and caregiver. Patient and Caregiver verbalizes ability to perform safe home medication administration. Instruct on Fall Prevention Description: Educate Patient and Caregiver about fall prevention. Problem:Fall Precautions Goal:Patient/caregiv er maintains a safe environment. Completed Skilled nurse instructed pt et caregiver, pt et caregiver verbalized understanding. Teach Scheduled/Assisted Toileting Description: Teach Patient and Caregiver importance of frequent assisted toileting to avoid falls when unassisted. Problem:Fall Precautions Goal:Patient/caregiv er maintains a safe environment. Completed Skilled nurse instructed pt et caregiver, pt et caregiver verbalized understanding. Assess Signs and Symptoms Description: - Assess verbal reports or observed changes in elimination pattern, frequency, consistency, color, hematuria, hematochezia, mucus in stools, dysuria. - Assess diet/appetite changes, pain. Problem:Alteration in GI/ Status - Other Goal:Patient GI/ care needs met without signs/symptoms of complications Completed Instruct Disease Process Description: - Instruct in dietary management, elimination diary/log keeping. - Medication and dietary instructions as appropriate. Problem:Alteration in GI/ Status - Other Goal:Patient GI/ care needs met without signs/symptoms of complications Completed Skilled nurse instructed pt et caregiver, pt et caregiver verbalized understanding. Instruct Nutrition Description: Instruct Patient and Caregiver in techniques to maintain adequate nutritional intake, normalize appetite, use of nutritional supplements as needed and ordered. Problem:Nutritional Status Goal:Patient GI/ care needs met without signs/symptoms of complications Completed Skilled nurse instructed pt et caregiver, pt et caregiver verbalized understanding. Assess Environment Description: - Assess environment for accessibility to bathroom or commode, adequate lighting, and need for modifications or equipment. Problem:Incontinence Goal:Patient GI/ care needs met without signs/symptoms of complications Completed Incontinence Management Description: - Instruct in urinary capture devices: absorbent pads. - Instruct in cleansing skin and use of skin barrier products: pastes, sprays, ointments, etc. as indicated. Problem:Incontinence Goal:Patient GI/ care needs met without signs/symptoms of complications Completed Skilled nurse instructed pt et caregiver, pt et caregiver verbalized understanding. Infection Prevention Description: - Instruct Patient and Caregiver in strategies to prevent infection: frequent/proper hand-washing techniques, Standard precautions, avoid crowds and persons with known infections, staying current with immunizations, s/s of infection, use of incentive spirometer, use of antibiotics and encourage adequate diet and fluid intake.- Instruct Patient and Caregiver in how to recognize signs and symptoms of infection and when to notify home care agency and/or physician. Problem:Risk for Skin Breakdown Goal:Patient verbalizes understanding of infection prevention strategies and methods to prevent development or worsening of pressure injuries Completed Skilled nurse instructed pt et caregiver, pt et caregiver verbalized understanding. documented in this encounter Care Teams Bicycle Inspector Relationship Specialty Start Date End Date Castro Spain MD [address] [place] [address] PCP - General INFECTIOUS DISEASE 12/14/23 documented as of this encounter
--- OUTSIDE RECORDS SUMMARY | 2024-03-18 18:05 | XMS_ITS | Encounter Summary ---
Author Organization [facility] Address [address] [place] [address]. [place], [place] [id number] [place] [id number] Care Team Providers Care Television Engineering Teacher Name Role Phone None, Provider Primary Care Provider Unavaila ble Encounter Details Date Type Department Care Team (Latest Contact Info) Description 12/08/2023 Travel Social History Tobacco Use Types Packs/Day Years Used Date Smoking Tobacco: Every Day Cigarettes 0.5 47.6 Started: 08/05/1976 Smokeless Tobacco: Never Alcohol Use Standard Drinks/Week Comments Yes 8.3 (1 standard drink = 0.6 oz p ure alcohol) [facility] Utilities Answer Date Recorded In the past 12 months has [facility] [employer], gas, oil, or water [employer] threatened to shut off services in your [...] were you homeless or living in a chcf (including now)? 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 Yes 12/08/2023 10:00 PM Randi Kim RN Active * Question Answer Date of Assessment Author Status Do you have difficulty dressing or bathing? Yes 12/08/2023 10:00 PM Anthony Kim RN Active Because of a physical, mental, or emotional condition, do you have difficulty doing errands alone such as visiting a doctor's office or shopping? 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 Answer Date of Assessment Author Status No 03/06/2020 3:01 AM NOZZLE CEMENT SPRAYER HELPER Activ e * Do you have serious difficulty walking or climbing stairs? Answer Date of Assessment Author Status Yes 03/06/2020 3:01 AM Sheridan Ramírez RN Active * Do you have difficulty [...] as of this encounter Mental Status * Question Answer Entry Date Author Status Because of a physical, mental, or emotional condition, do you have serious difficulty concentrating, remembering, or making decisions? No 12/08/2023 10:00 PM Erna Kim RN Active * Because of a [...] on filedocumented in this encounter Care Teams Television Engineering Teacher Relationship Specialty Start Date End Date None, Provider, PCP - General UNKNOWN PHYSICIAN SPECIALTY 12/08/23 1 documented as of this encounter
--- OUTSIDE RECORDS SUMMARY | 2024-03-18 18:05 | XMS_ITS | Encounter Summary ---
Author Organization [facility] Address [address] [place] [address]. [place], [place] [id number] [place] [id number] Care Team Providers Care Math Instructor Name Role Phone None, Provider Primary Care Provider Castro David MD Primary Care Provider + Reason for Referral * Imaging (Urgent) - New Request Specialty Diagnoses / Procedures Referred By Contac t Referred To Contact RADIOLOGY Procedures CT ABD+PEL W CON Taj Chamorro MD [address] [place] [address] Phone: tel: fax: Referral ID Status Reason Start Date Expiration Date V isits Requested Visits Authorized [id number] New Request 12/12/2023 12/11/2024 1 1 * (Routine) - Canceled Specialty Diagnoses / Procedures Referred By Contalli t Referred To Contact Procedures OT eval and treat Chula Martinez NP [address] [place] [address] Phone: tel: fax: Referral ID Status Reason Start Date Expiration Date V isits Requested Visits Authorized [id number] Canceled 12/08/2023 12/07/2024 1 1 * (Routine) - Canceled Specialty Diagnoses / Procedures Referred By Contac t Referred To Contact Procedures PT eval and treat Chula Martinez NP [address] [place] [address] Phone: tel: fax: Referral ID Status Reason Start Date Expiration Date V isits Requested Visits Authorized [id number] Canceled 12/08/2023 12/07/2024 1 1 * Imaging (Emergency) - New Request Specialty Diagnoses / Procedures Referred By Zeferino t Referred To Contact RADIOLOGY Procedures CT ABD+PEL WO CON Aman Lockwood PA [address] [place] [address] Phone: tel: fax: Referral ID Status Reason Start Date Expiration Date V isits Requested Visits Authorized [id number] New Request 12/08/2023 12/07/2024 1 1 Reason for Visit * Reason Comments Abdominal Pain * Auth/Cert (Routine) Specialty Diagnoses / Procedures Referred By Zeferino plata Referred To Contact Diagnoses Pyelonephritis Procedures NONE Referral ID Status Reason Start Date Expiration Date Visits Re quested Visits Authorized [id number] 1 1 Encounter Details Date Type Department Care Team (Latest Contact Info) Description 12/08/2023 8:41 AM CDT - 12/14/2023 1:42 PM CDT Hospital Encounter [facility] Med/Surg [address] [place] [address] Aman Lockwood PA [address] [place], [place] [id number] Taj Chamorro MD [address] [place], [place] [id number] Abdominal Pain Discharge Disposition: Home with Home Health Care Social History Tobacco Use Types Packs/Day [...] materials from doctor or pharmacy Often 12/15/2023 [facility] Utilities Answer Date Recorded In the past 12 months has th e [employer], gas, oil, or water [employer] threatened to shut off services in your [...] any time in the past 12 m [facility], were you homeless or living in a nursing home (including now)? No 12/08/2023 Sex and Gender Information Value Date Recorded Sex Assigned at Not on file Legal Sex Male 8:12 PM [employer] Gender Identity Not on file Sexual Orientation Not on file documented as of this encounter Last Filed Vital Signs Vital Sign Reading Time Taken Comments Blood Pressure 95/76 12/14/2023 11:52 AM CDT Pulse 92 12/14/2023 11:52 AM CDT Temperature 36.9 ??C (98.4 ??F) 12/14/2023 11:52 AM C DT Respiratory Rate 16 12/14/2023 11:52 AM CDT Oxygen Saturation 100% 12/14/2023 11:52 AM CDT Inhaled Oxygen Concentration - - Weight 63.9 kg (140 lb 14 oz) 12/12/2023 4:19 AM CDT Height 182.9 cm (6') 12/08/2023 8:43 AM CDT Body Mass Index 19.11 12/08/2023 8:43 AM CDT documented in this encounter Functional Status * Question Answer Date of Assessment Author Status Do you have serious difficulty walking or climbing stairs? Yes 12/08/2023 10:00 PM CDT Randi Arana RN Active * Question Answer Date of Assessment Author Status Do you have difficulty dressing or bathing? Yes 12/08/2023 10:00 PM CDT Anthony Arana RN Active Because of a physical, mental, or emotional condition, do you have difficulty doing errands alone such as visiting a doctor's office or shopping? Yes 12/08/2023 10:00 PM Randi Kim RN Active * Are you deaf or do you [...] Kim RN Active documented in this encounter Discharge Summaries * Taj Chamorro MD - 12/14/2023 1:42 PM CDT Images from the original note were not included. Hospitalist Discharge Summary Patient ID: Aime Matthews. male. 1955. Admit date: 12/08/2023 8:41 AM Discharge date: 12/14/2023 Admitting Physician: Taj Chamorro MD Attending Physician: No att. providers found Primary Care Physician: Castro Spain MD Discharge Physician: Taj Chamorro MD Hospital Diagnosis: Pyelonephritis Admission Condition: serious Discharged Condition: Stable Code Status: Prior Indication for Admission: Chief Complaint Patient presents with Abdominal Pain Readmission/Mortality Score at discharge: Low 0-28, Medium 29-58, High >59 @LACEPLUS@ HPI (per admitting LEAD COOK/PA or physician): 68-year-old male with a past medical history of ESRD on HD MWF (missed today), HTN, AOCD, chronic hyponatremia who presented to the ED with c/o lower abdominalpain x 2-3 weeks that worsened today prompting his visit to the ED. In the ED, imaging was concerning for pyelonephritis and mild bilateral hydronephrosis. He was started on IV abx and urology was consulted. He endorses continued lower abdominal pain, constant, currently rated 10/10. He denies cough, fever/chills, N/V. Does endorse diarrhea x 2 weeks. Reports decreased PO intake due to not feeling well/abdominal pain. Lives at home with sister. He uses both a cane and walker to ambulate. DeniesCP or SOB. He is resting comfortably on RA. History obtained via chart review, discussion with patient. No family is present at the bedside. Hospital Course: Sepsis, improved Pyelonephritis Presented with leukocytosis (WBC 24), tachycardia Source: pyelonephritis, PNA CT A/P shows moderate bilateral renal edema, perinephric stranding, renal pelvis and ureteral wall thickening and urinary bladder thickening. Mild bilateral hydronephrosis. Lactic acid 1.0, Troponin wnl Blood culture deferred in absence of severe sepsis and nationwide tube shortage Ceftriaxone stopped. Will change antibiotics to vancomycin and cefepime in light of worsening leukocytosis and persistent severe suprapubic pain Urology consulted: no current plan for intervention. Plan to treat pyelo & will ultimately needcystoscopy bilateral stent removal bilateral retrograde pyelography once his infection has cleared UA & Ucx obtained. Note were not able to be obtained until well after IV abx were started. Urine culture with polymicrobial growth concerning for contamination Repeat ucx (due to potential contaminated prior culture) with GNR Will stop vancomycin, continue cefepime Patient is scheduled for cystoscopy with bilateral stent exchange with Dr. Burr at [facility] on 12/22 at 1 PM. Since continues to have persistent severe suprapubic tenderness CT A/P with contrast obtained on 12/11. Discussed findings with urology who opined that the findings are generally unremarkable from their perspective Urine culture results updated today with the addition of Enterococcus and Pseudomonas in addition to prior discovered Klebsiella Antibiotics changed to IV Unasyn and Levaquin inpatient with plans to transition to oral Augmentin and Levaquin outpatient As aforementioned, we will plan to continue this regimen until patient has procedure -Discharged on 3 weeks of: Augmentin 500 twice daily and Levaquin 500 every other day Pneumonia, resolved CT A/P shows mild opacities in the right lower lobe and minimal opacities in the left lower lobe suggesting infiltrate and subsegmental atelectasis. Denies cough, fever, afebrile PCT elevated, though in the setting of ESRD this is unreliable Suspected CAP Abx as above, completed course duration for cap Chronic Hyponatremia Na 129 on admission, down to 127 in 03/2020 Also endorses poor PO intake last 2-3 weeks Hold HCTZ Monitor ESRD HD on Nephrology consulted for HD Avoid nephrotoxic agents Monitor renal function AOCD Hgb 11.0, baseline ~10-11 No obvious signs of bleeding Monitor H&H and transfuse for Hgb < 7 Hypertension BP stable Reports not taking amlodipine Currently normotensive Monitor and adjust as clinically warranted Social: Therapy recommended SNF placement which patient declined. He was agreeable to home health Findings that require further workup: As above, discussed with patient's primary care physician via phone Consults: Urology and nephrology Significant Diagnostic Studies: Recent Results (from the past 24 hours) BASIC METABOLIC PANEL Collection Time: 12/14/23 5:15 AM Result Value Ref Range GLUCOSE 114 (H) 70 - 99 MG/DL BUN 24 (H) 7 - 18 MG/DL CREATININE S/P/B 4.84 (H) 0.7 - 1.3 MG/DL SODIUM S/P/B 132 (L) 136 - 145 MMOL/L POTASSIUM S/P/B 3.6 3.5 - 5.1 MMOL/L CHLORIDE S/P/B 99 97 - 115 MMOL/L CO2 24.3 21 - 32 MMOL/L CALCIUM S/P/B 9.1 8.5 - 10.1 MG/DL ANION GAP 8.7 2 - 10 MMOL/L BUN CREATININE RATIO 5.0 (L) 6 - 26 GFR ESTIMATE 13 (L) >90 ML/MIN/1.73 M2 CBC W/DIFF AUTOMATED Collection Time: 12/14/23 5:15 AM Result Value Ref Range WBC 11.56 (H) 4.5 - 11.0 x10'3/uL RBC 3.17 (L) 4.70 - 6.10 x10'6/uL HGB 9.7 (L) 14.0 - 18.0 G/DL HCT 28.9 (L) 43.0 - 54.0 % MCV 91.2 80.0 - 94.0 FL MCH 30.6 27.0 - 31.0 PG MCHC 33.6 32.0 - 36.0 G/DL RDW 14.4 11.5 - 14.5 % PLT 400 130 - 400 x10'3/uL MPV 10.1 9.3 - 12.2 FL DIFFERENTIAL TYPE MANUAL DIFFERENTIAL SEG NEUTROPHILS 66 % LYMPHOCYTES 15 % MONOCYTES 11 % METAMYELOCYTES 4 % MYELOCYTES 4 % ABS. NEUTROPHILS 7.63 1.80 - 7.70 x10'3/uL ABS. LYMPHOCYTES 1.73 1.00 - 4.80 x10'3/uL ABS. MONOCYTES 1.27 (H) 0.30 - 0.82 x10'3/uL ABS. METAMYELOCYTES 0.46 (H) 0.00 x10'3/uL ABS. MYELOCYTES 0.46 (H) 0.00 x10'3/uL RBC MORPHOLOGY SLIDE REVIEWED TARGET CELLS 1+ PLT EST. INCREASED Radiology Reports : Radiology Results (Last 30 days) 12/12/[address] ABD+PEL W CON Final result Impression: IMPRESSION: 1. Genitourinary abnormalities as described. Clinical correlation required. See text. 2. Possible fecal impaction. 3. Redemonstrated cholelithiasis. Referred By: Interpreted By: Cody Duong MD, 12/12/2023 1:27 PM 12/08/[address] ABD+PEL WO CON Final result Impression: IMPRESSION: 1. Moderate bilateral renal edema, perinephric stranding, renal pelvis and ureteral wall thickening, and urinary bladder wall thickening. Findings could be consistent with urinary tract infection and certainly pyelonephritis is not excluded without intravenous contrast. Bilateral ureteral stents. Mild bilateral hydronephrosis. Recommend correlation with urinalysis. 2. Mild opacities in the right lower lobe and minimal opacities in the left lower lobe suggesting infiltrate and subsegmental atelectasis. Very small bilateral pleural effusions. 3. Dependent density in the gallbladder suggesting noncalcified stones and/or sludge. Minimal distention of the superior common bile duct. 4. No apparent bowel obstruction. Ordered By: AMAN LOCKWOOD Interpreted By: Zeb Gutierrez, 12/08/2023 11:02 AM Discharge Exam: Filed Vitals: 12/14/23 0015 12/14/23 0435 12/14/23 0730 12/14/23 1152 BP: 109/79 95/64 106/78 95/76 Pulse: 92 89 92 92 Resp: 17 17 16 16 Temp: 98.4 ??F (36.9 ??C) 98.4 ??F (36.9 ??C) TempSrc: Oral Oral SpO2: 100% 100% 100% 100% Weight: Height: Physical Exam Vitals reviewed. Constitutional: General: He is not in acute distress. Appearance: Normal appearance. Cardiovascular: Rate and Rhythm: Normal rate and regular rhythm. Heart sounds: Normal heart sounds. No murmur heard. No gallop. Pulmonary: Effort: Pulmonary effort is normal. Breath sounds: Normal breath sounds. Abdominal: General: Abdomen is flat. Bowel sounds are normal. Palpations: Abdomen is soft. Skin: General: Skin is warm and dry. Neurological: General: No focal deficit present. Mental Status: He is alert and oriented to person, place, and time. Discharge Medications: Medication List START taking these medications Morning Afternoon Evening Bedtime As Needed amoxicillin-clavulanate 500-125 MG tablet Commonly known as: AUGMENTIN Take 1 tablet (500 mg of amoxicillin total) by mouth 2 (two) times daily for 21 days. Signed by: Dr. Taj Chamorro 1 tablet 1 tablet HYDROcodone-acetaminophen 5-325 MG tablet Commonly known as: NORCO Take 1 tablet by mouth every 4 (four) hours as needed. Indications: Acute Pain < 3 Day Supply Last time this was given: 1 tablet on December 13, 2023 3:26 PM Signed by: Dr. aTj Chamorro Last time this was given: December 13, 2023 3:26 PM 1 tablet levoFLOXacin 500 MG tablet Commonly known as: LEVAQUIN Take 1 tablet (500 mg total) by mouth every other day for 21 days. If a dose falls on a day you have dialysis, please take after your dialysis session Last time this was given: Ask your nurse or doctor Signed by: Dr. Taj Chamorro Last time this was given: Ask your nurse or doctor Take 1 tablet (500 mg total) by mouth every other day for 21 days. If a dose falls on a day you have dialysis, please take after your dialysis session CONTINUE taking these medications Morning Afternoon Evening Bedtime As Needed acetaminophen 500 MG tablet Commonly known as: TYLENOL Take 2 tablets (1,000 mg total) by mouth every 6 (six) hours as needed for Pain. Last time this was given: 650 mg on December 08, 2023 9:11 PM Last time this was given: December 08, 2023 9:11 PM 2 tablets traMADol 50 MG tablet Commonly known as: ULTRAM Take 1 tablet (50 mg total) by mouth 2 (two) times daily as needed for Pain. 1 tablet ASK your doctor about these medications Morning Afternoon Evening Bedtime As Needed amLODIPine 10 MG tablet Commonly known as: NORVASC Take 1 tablet (10 mg total) by mouth daily. You are not taking this medication. If you have questions about this medication, ask the prescribing provider: Dr. Abel Lizarraga. Signed by: Dr. Abel Lizarraga glycerin (ADULT) [address] 1 suppository rectally daily. You are not taking this medication. If you have questions about this medication, ask the prescribing provider. hydroCHLOROthiazide 12.5 MG tablet Commonly known as: MICROZIDE Take 1 tablet (12.5 mg total) by mouth every morning. You are not taking this medication. If you have questions about this medication, ask the prescribing provider: Dr. Abel Lizarraga. Signed by: Dr. Abel Lizarraga multi vitamin/minerals tablet Commonly known as: THERA-M ENHANCED Take 1 tablet by mouth daily. You are not taking this medication. If you have questions about this medication, ask the prescribing provider. Vitamin D3 50 mcg tablet Commonly known as: cholecalciferol Take 1 tablet (2,000 Units total) by mouth daily. You are not taking this medication. If you have questions about this medication, ask the prescribing provider. Disposition: Home with Home Health Time Spent on Discharge: more than 30 minutes Signed: Taj Chamorro MD documented in this encounter Medications at Time of Discharge acetaminophen (TYLENOL) 500 MG tablet Take 2 tablets (1,000 mg total) by mouth every 6 (six) hours as needed for Pain. amLODIPine 10 MG tablet Take 1 tablet (10 mg total) by mouth daily. 30 tablet 2 03/08/2020 Cholecalciferol (VITAMIN D3) 50 MCG (2000 UT) Tab Take 1 tablet (2,000 Units total) by mouth daily. GLYCERIN, ADULT, [address] 1 suppository rectally daily. 08/09/2023 hydroCHLOROthiazi de 12.5 MG tablet Take 1 tablet (12.5 mg total) by mouth every morning. 30 tablet 2 03/08/2020 HYDROcodone-aceta minophen (NORCO) 5-325 MG tabletIndications :Acute Pain < 3 Day Supply Take 1 tablet by mouth every 4 (four) hours as needed. Indications: Acute Pain < 3 Day Supply 10 tablet 12/14/2023 multi vitamin/minerals tablet Take 1 tablet by mouth daily. traMADol (ULTRAM) 50 MG tablet Take 1 tablet (50 mg total) by mouth 2 (two) times daily as needed for Pain. 11/23/2023 amoxicillin-clavu lanate (AUGMENTIN) 500-125 MG tablet Take 1 tablet (500 mg of amoxicillin total) by mouth 2 (two) times daily for 21 days. 42 tablet 12/14/2023 4 levoFLOXacin (LEVAQUIN) 500 MG tablet Take 1 tablet (500 mg total) by mouth every other day for 21 days. If a dose falls on a day you have dialysis, please take after your dialysis session 10 tablet 12/14/2023 4 documented as of this encounter Progress Notes * Renee Price RN - 12/14/2023 12:38 PM CDT 12/14/23 1238 Discharge Planning Living Arrangements Family members Support Systems Family members Type of Residence Private residence Assistance Needed No Patient expects to be discharged to: Home with home health care Insurance Authorization needed No Does the patient need discharge transport arranged? No IV Infusion at discharge No DME Needed at Discharge No Discharge Planning Who is requesting discharge planning? Provider * Renee Price RN - 12/14/2023 9:15 AM CDT 09:00 CM met with patient to get SNF choices, no SNF list in patient's room. Patient states his sister may have taken it with her, but he is not going to a SNF. CM voiced concern that the patient is requiring assist to transfer and ambulate and will need assistance at discharge. Patient insists that he is going home and states he does not need home health care. Patient states he is doing better and that his sister and two nephews also live with him and can assist if needed. Patient states he goes up and down stairs at home and uses his walker. 09:15 CM phoned patient's sister Kaley, no answer. CM left voice mail asking Kaley to return thisCM's call, return number given. 09:58 CM phoned Kaley, patient' sister, again, no answer. CM phoned patient's son Ja, no answer and unable to leave a voice mail as his mailbox is full. 10:14 CM went to patient's room and informed him that CM left voice mail for Kaley earlier and shehas not returned my call and CM called Ja, his voice mail is full. The patient phoned Kaley, she returned his call. VIRI spoke with Kaley and informed her that the patient is refusing SNF placement and is wanting to return to her home, Kaley states that he can. Kaley also states she will transport the patient home. VIRI informed Kaley that patient also does not want home health PT, the patient then spoke up and asked Kaley what she thought about it, Kaley states home PT is okay. CM thengave the phone back to the patient, he spoke with her briefly then hung up. CM asked the patient ishe has any HH agency preference, patient then became agitated at stating Now why didn't you askher that? CM explained that he is oriented and able to make his own decisions. Patient states I'm not from here and don't know what is going on around here . CM informed patient that this CM will call Kaley and ask her. 10:23 CM phoned Kaley, no answer, left another voice mail for her to call this CM. 10:56 CM met with patient as no return call received from Kaley. CM provided patient with agency list. Patient again agitated with VIRI stating he told CM that Kaley has to decide. CM asked patient to call Kaley. Patient called Kaley, CM informed her of printed agency list. She states she has no preference of agencies. Tankroom Worker has provided a list of agencies to the Patient /family member or patient pharmacy services representative with quality metrics. The information includes any entity in which [facility] has a vested interest to disclose any financial obligations. The selected options were discussed with the patient's family member or pharmacy services representative with financial obligation information. The selected p references will be sent relevant medical information to generate the referral. The patient 's selections may not be available, and further options will be explored and discussed with the patient. Thepreferred locations referrals will be sent to: 1.[facility] 11:03 CM sent doc halo to Dr Chamorro informing him that patient is refusing SNF and is agreeable to PT/OT. CM asked MD if CM can enter order, he responded yes. 11:08 CM sent doc halo to [place] with [facility] asking if they are able to accept patient. 11:20 During rounds, Dr Chamorro states he has spoken with patient's PCP Dr Spain about patient discharge and follow up. 11:56 CM left confidential voice mail with Brooklynn Dennison, dialysis liaison notifying that this patient is discharging today, gave return number to call if needed. 12:13 CM informed Miki Watts RN via that patient has been accepted by [facility] and is ready for dc from CM standpoint as long as Dr Chamorro has completed his antibiotic plans. 12:30 CM informed the patient that he has been accepted by [facility], he verbalizes understanding. * Adele Hernández - 12/14/2023 9:02 AM CDT CM Product Scientist delivered subsequent IMM. Signed copy is in the chart. * Enrique Jimenez MD - 12/14/2023 5:34 AM CDT Man Jeanie Matthews is a 68-year-old male patient. Reason for Follow Up: ESRD on HD Subjective: Mr. Matthews is feeling better. Less abdominal pain. He is wanting to go home. No dizziness, headache, cough, fever, CP, SOB, nausea Current Facility-Administered Medications Medication Dose Route Frequency Provider Last Rate Last Admin acetaminophen (TYLENOL) tablet 650 mg 650 mg Oral Q4H PRN Chula Martinez NP 650 mg at 12/08/23 2111 albuterol sulfate HFA 108 (90 Base) MCG/ACT inhaler 2 puff 2 puff Inhalation Q4H PRN Chula Martinez NP ampicillin-sulbactam (UNASYN) 3 g in sodium chloride 0.9 % 100 mL IVPB 3 g Intravenous Q12H Taj Chamorro MD Stopped at 12/14/23 0316 bisacodyl (DULCOLAX) suppository 10 mg 10 mg Rectal Daily PRN Taj Chamorro MD calcium carbonate (TUMS) chewable tablet 500 mg 500 mg Oral Daily PRN Cristian Min MD 500 mg at 12/14/23 0235 guaiFENesin ER (MUCINEX) 12 hr tablet 600 mg 600 mg Oral BID Taj Chamorro MD 600 mg at 12/14/23 0807 heparin (porcine) injection 5,000 Units 5,000 Units Subcutaneous 2 times per day Chula Martinez NP 5,000 Units at 12/14/23 0807 HYDROcodone-acetaminophen (NORCO) 5-325 MG tablet 1 tablet 1 tablet Oral Q4H PRN Chula Martinez NP 1 tablet at 12/13/23 1526 HYDROmorphone (DILAUDID) injection 0.2 mg 0.2 mg Intravenous Q2H PRN Taj Chamorro MD 0.2 mg at 12/11/231958 influenza vaccine (FLUZONE) injection 0.5 mL 0.5 mL Intramuscular Prior to discharge Taj Quijano MD [START ON 12/15/2023] levoFLOXacin (LEVAQUIN) IVPB 500 mg 500 mg Intravenous Q24H Taj Chamorro MD melatonin tablet 3 mg 3 mg Oral Nightly at bedtime Cristian Min MD 3 mg at 12/13/23 2123 naLOXone (NARCAN) injection 0.4 mg 0.4 mg Intravenous PRN Chula Martinez NP ondansetron (ZOFRAN) injection 4 mg 4 mg Intravenous Q8H PRN Chula Martinez NP 4 mg at 12/14/23 0916 polyethylene glycol (GLYCOLAX) packet 17 g 17 g Oral Daily Taj Chamorro MD 17 g at 12/12/23 1619 Senna (SENOKOT) 8.6 MG tablet 8.6 mg 8.6 mg Oral Nightly at bedtime Taj Chamorro MD 8.6 mg at 12/11/231957 Review of patient's allergies indicates: Allergen Reactions Lisinopril Anaphylaxis and Angioedema Denies allergy 12/08/23 Principal Problem: Pyelonephritis SNOMED CT(R): PYELONEPHRITIS Social History Tobacco Use Smoking status: Every Day Current packs/day: 0.50 Average packs/day: 0.5 packs/day for 47.4 years (23.7 ttl pk-yrs) Types: Cigarettes Start date: 08/05/1976 Smokeless tobacco: Never Substance Use Topics Alcohol use: Yes Alcohol/week: 8.3 standard drinks of alcohol Types: 5 Shots of liquor per week Objective: Filed Vitals: 12/14/23 0015 12/14/23 0435 12/14/23 0730 12/14/23 1152 BP: 109/79 95/64 106/78 95/76 Pulse: 92 89 92 92 Resp: 17 17 16 16 Temp: 98.4 ??F (36.9 ??C) 98.4 ??F (36.9 ??C) TempSrc: Oral Oral SpO2: 100% 100% 100% 100% Weight: Height: Physical Exam: -GENERAL: No acute distress, breathing comfortably on room air. -EYES: EOMI -LUNG: CTA lavern., no wheezes -CVS: Regular rate rhythm -ABDOMEN: Soft, nondistended, slight tenderness over the lower abdomen -Musculoskeletal / EXT: no legs edema. -NEURO: AAOx3 LABs I reviewed labs Recent Labs Lab 12/08/23 0857 12/09/23 0449 12/10/23 0542 12/11/23 0520 12/12/23 0420 12/13/23 0542 12/14/23 0515 NA 129* 132* 131* 135* 133* 132* 132* K 3.9 3.8 3.6 3.3* 3.9 4.1 3.6 CL 91* 98 96* 101 102 101 99 CO2 25.8 27.4 27.1 25.1 24.3 23.0 24.3 AGAP 12.2* 6.6 7.9 8.9 6.7 8.0 8.7 BUN 34* 19* 29* 20* 33* 44* 24* CR 4.69* 3.14* 4.26* 3.50* 4.75* 5.74* 4.84* BUNCREATININ 7.2 6.1 6.8 5.7* 6.9 7.7 5.0* GLU 100* 126* 99 134* 117* 105* 114* CA 9.1 9.1 9.2 9.2 9.2 9.0 9.1 MAGNESIUM -- 2.3 -- -- -- -- -- Recent Labs Lab 12/08/23 0857 12/09/23 0449 12/10/23 0420 12/11/23 0520 12/12/23 0420 12/13/23 0542 12/14/23 0515 WBC 24.08* 19.51* 20.74* 16.14* 11.93* 10.28 11.56* RBC 3.52* 3.46* 3.25* 3.08* 3.06* 3.25* 3.17* HGB 11.0* 10.7* 10.1* 9.7* 9.4* 10.0* 9.7* HCT 31.5* 31.5* 29.6* 28.1* 27.7* 29.6* 28.9* MCV 89.5 91.0 91.1 91.2 90.5 91.1 91.2 MCH 31.3* 30.9 31.1* 31.5* 30.7 30.8 30.6 MCHC 34.9 34.0 34.1 34.5 33.9 33.8 33.6 PLT 460* 380 385 376 411* 468* 400 RDW 13.4 13.7 14.1 14.3 14.4 14.6* 14.4 MPV 9.9 10.0 10.5 10.0 10.1 9.9 10.1 Assessment/Plan: Mr. Matthews a 68 years old male with past medical history of end-stage renal disease on chronic hemodialysis Wednesday, hypertension, OACD. -He presented to the ED today with 2 to 3 weeks of lower abdominal pain with diarrhea, fatigue. --- End-stage renal disease on chronic hemodialysis MWF; s/p HD yesterday with 1.8L UF. On oral fluids restriction; hyponatremia improved/ stable. Plan for HD tomorrow -Imaging showed lavern ureter stents, bilateral renal edema, perinephric stranding with ureteral and urinary bladder wall thickening which consist of infection/pyelonephritis with mild bilateral hydronephrosis. Urine Cx with medina- sensitivei klebsiella; On Abx. Urology on board and plan for cystoscopy with bilateral ureteral stent removal vs. exchange on 12/23/2023 --- Hypertension; normotensive off meds with occ hypotension episodes. --- Anemia of CKD with hemoglobin at 9.7 Discharge per other teams. Ok from nephrology stand point ENRIQUE JIMENEZ MD 12/14/2023 * Angy Estrada, [employer] ADMINISTRATOR - 12/13/2023 3:47 PM CDT 12/13/23 1416 Therapy Visit Ordering Provider JOSE LUIS Martinez Subjective ROOM 521 PT SUPINE IN BED AND AGREED TO DO THERAPY Reason for admission DX: Pyelonephritis Relevant Comorbidities/ Personal Factors to PT PMHX: ESRD on HD(M-W-F), HTN, AOCD, chronic hyponatremia Verified Two Patient Identifiers Yes Patient consents to therapy Yes Acute Inpatient PT Time Calculation PT Start Time 1416 PT Stop Time 1440 PT Time Calculation (min) 24 min Precautions General Precautions Bed Alarm;Chair Alarm;Fall Risk PPE Used Gloves;Gown;Face mask Instructed on Precautions Yes;Verbalizes understanding;Needs reinforcement and education Skin Integrity intact Pain Pain Yes Pain Score Did not rate Location EVERYWHERE - SAYS HE HAS PAIN ALL THE TIME . Interventions Informed RN;Re-direction;Re-positioning Activity Tolerance Endurance Tolerates 20 - 30 min activity with rests Endurance Quality Fair Limiting Factors to Endurance Dizziness;Acute deconditioning;Weakness VS Response During Activity B/P(sitting) (R)UE = 139/94 & 122/64 Cognition Overall Cognitive Status Impaired Bed Mobility Supine to Sit Min assist to right Other (Comment) PT NEEDED VC FOR PROPER SEQUENCING WITH HEAD OF BED ELEVATED AND USE OF BED RAILING TRANSFERS Sit to Stand Min assist Other (Comment) PT NEEDED VC FOR HAND PLACEMENT TO PUSH OFF TO STAND WITH WW AND TO STAND UPRIGHT BY PUSH THRU HIS ARMS ON THE WALKER Gait Gait Assistance Min assist Assistive Device 2 Wheeled walker Distance Ambulated (ft) 4 ft Other (Comment) PT NEEDED VC TO COMPUTER FIELD TECHNICIAN FEET TO CLEAR THE FLOOR, INCREASE STRIDE LENGTH AND ENCOURAGEMENT THAT HE CAN DO IT - LIMITED DISTANCE DUE TO PT STATING HE COULDNAT GO ANY FURTHER . Balance Standing - Static Min Assist;Support of both upper extremities Standing - Dynamic Min Assist;Not Tested Other (Comment) WW Exercises Ankle Pumps X Quad Sets X Short Arc Quad X LAQ Glut Sets X Hip Flexion X Hip Abduction X Sitting LE Exercise INSTRUCTED PT ON SITTING EX MARKED ABOVE X 15 REPS WITH ALOT OF ENCOURAGEMENT Patient/Family Training Bed Mobility X Transfer Training X Gait Training X Precautions X Exercise Program X Discharge Recommendation PT Recommendation [facility] Facility PT Equipment Recommended 2 Wheeled walker Plan PT Treatments/Interventions Gait Training;Therapeutic Exercises;Therapeutic Activities;Neuromuscular re-education Progress Slow progress, medical status limitations PT Frequency 6 times/week PT plan for next session CONT WITH EX, BM TT AND GAIT TRAINING WITH WW . If this is the last treatment note,it will serve as the discharge summary Yes End of Session End of Session Safety Chair alarm set/activated;Call light within reach;Nursing aware of session * Renee Price RN - 12/13/2023 1:37 PM CDT 12/13/23 [id number] Interdisciplinary Group Conference Team Members Present Other (Comment);Physician (Doc Halo from Dr Taj Chamorro) Patient Current Status Paient current status Inpatient Barriers to Discharge Inpatient Review Barriers to Discharge Inpatient Other (Comment) Other follow up (Comment) broadening abx, if pain improves, may be ready for discharge tomorrow Patient expects to be discharged to Patient [facility] to be [facility]) 10:45 CM met with the patient to discuss PT recs for SNF or swing bed post discharge, the patient states he does not want to go anywhere and wants to return home. CM asked patient if CM can discuss this with his sister that he lives with and he gave permission. 11:48 CM phoned Kaley, patient's sister and informed of the above. Kaley states she wants the patient to go to rehab prior to returning home, but wants CM to discuss this with the patient's son. CMinformed Kalye that CM will have to get permission from the patient first. 13:15 CM spoke with the patient and informed him that Kaley asked CM to discuss discharge plans with patient's son Ja. CM asked the patient if that would be okay, he states CM can talk with Ja. 13:30 CM phoned Kaley and she and Ja were on the phone. CM excplained about PT recs for rehabprior to returning home and with the patient requiring dialysis, he would need to go to a SNF unless the family would be able to provide the care he needs at home. Ja states patient needs to go to a SNF. CM informed Ja and Kaley that CM has printed a list of SNFs and will place in patient's room for them to review anc give CM some options to send referrals to. CM also explianaed that the SNF will have to be willing to transport the patient to dialysis and that some facilities do havedialysis at their locations. Kaley states she is coming up to the hospital and will review the SNFlist and is going to [facility]. CM informed that CM will be up to room in about an hour and a half to go over their choices. 13:38 CM took SNF list to patient's room and informed him of the above conversation with Kaley [email or web address], he verbalizes understanding. CM also asked patient the PASRR questions. 13:55 CM completed PASRR and printed letters, will place in patient's chart. No level II required. 14:50 CM went to patient's room to get SNF choices, Kaley not present. Patient states she has not come up yet. 15:08 CM phoned Kaley to see when she is coming, states around 5pm, she is trying to get the patient's bike for him to ride around. CM informed Kaley that the patient will not be able to ride a bike and would not be able to ride in hospital. CM informed her that CM needs their SNF choices as he may be ready to DC tomorrow and insurance auth also needs to be started. CM asked Kaley to come up to the hospital now, she states she will do so. 15:55 CM went to patient's room again, Kaley not here yet. CM instructed patient to have her/patient choose at least 3 SNFs [place] in [place], CM will send referrals tomorrow am.Patient verbalizes understanding. * Taj Chamorro MD - 12/13/2023 9:37 AM CDT Images from the original note were not included. Hospitalist Daily Progress Note Subjective Patient seen evaluated while undergoing dialysis today. Still complaining of suprapubic pain thoughnotes some improvement today over days prior. Denying any fevers or chills today. Overall feeling well. Objective Filed Vitals: 12/13/23 1115 12/13/23 1122 12/13/23 1130 12/13/23 1229 BP: 94/48 97/52 120/53 103/71 Pulse: (!) 125 (!) 120 77 (!) 114 Resp: 16 16 Temp: 97.6 ??F (36.4 ??C) TempSrc: Oral Oral SpO2: Weight: Height: Physical Exam Constitutional: General: He is not in acute distress. Appearance: Normal appearance. Cardiovascular: Rate and Rhythm: Normal rate and regular rhythm. Heart sounds: No murmur heard. No gallop. Pulmonary: Effort: Pulmonary effort is normal. Breath sounds: Normal breath sounds. Abdominal: General: Abdomen is flat. Bowel sounds are normal. There is no distension. Palpations: Abdomen is soft. Tenderness: There is abdominal tenderness. Skin: General: Skin is warm and dry. Neurological: General: No focal deficit present. Mental Status: He is alert and oriented to person, place, and time. Intake/Output 24H Total: Intake/Output Summary (Last 24 hours) at 12/13/2023 1346 Last data filed at 12/13/2023 1130 Gross per 24 hour Intake 240 ml Output 1600 ml Net -1360 ml Medication ampicillin-sulbactam 3 g Intravenous Q12H heparin (porcine) 5,000 Units Subcutaneous 2 times per day [START ON 12/15/2023] levoFLOXacin 500 mg Intravenous Q24H levoFLOXacin 750 mg Intravenous Once melatonin 3 mg Oral Nightly at bedtime polyethylene glycol 17 g Oral Daily Senna 8.6 mg Oral Nightly at bedtime PRN Meds: acetaminophen, albuterol sulfate HFA, bisacodyl, calcium carbonate, HYDROcodone-acetaminophen, HYDROmorphone, influenza, naLOXone, ondansetron Labs: Recent Labs Lab 12/08/23 0857 12/09/2344812/10/2354112/11/2351912/12/2341912/13/23 0542 NA 129* 132* 131* 135* 133* 132* K 3.9 3.8 3.6 3.3* 3.9 4.1 CL 91* 98 96* 101 102 101 CO2 25.8 27.4 27.1 25.1 24.3 23.0 AGAP 12.2* 6.6 7.9 8.9 6.7 8.0 BUN 34* 19* 29* 20* 33* 44* CR 4.69* 3.14* 4.26* 3.50* 4.75* 5.74* BUNCREATININ 7.2 6.1 6.8 5.7* 6.9 7.7 GLU 100* 126* 99 134* 117* 105* CA 9.1 9.1 9.2 9.2 9.2 9.0 MAGNESIUM -- 2.3 -- -- -- -- Recent Labs Lab 12/08/23 0857 12/09/2344812/10/2341912/11/2351912/12/230 12/13/23 0542 WBC 24.08* 19.51* 20.74* 16.14* 11.93* 10.28 RBC 3.52* 3.46* 3.25* 3.08* 3.06* 3.25* HGB 11.0* 10.7* 10.1* 9.7* 9.4* 10.0* HCT 31.5* 31.5* 29.6* 28.1* 27.7* 29.6* MCV 89.5 91.0 91.1 91.2 90.5 91.1 MCH 31.3* 30.9 31.1* 31.5* 30.7 30.8 MCHC 34.9 34.0 34.1 34.5 33.9 33.8 PLT 460* 380 385 376 411* 468* RDW 13.4 13.7 14.1 14.3 14.4 14.6* MPV 9.9 10.0 10.5 10.0 10.1 9.9 Recent Labs Lab 12/08/23 0857 AST 20 ALT 12* No results for input(s): INR, PTT in the last 168 hours. Invalid input(s): ABG arterial blood gases Recent Labs Lab 12/08/23 0857 TROP 4 No results for input(s): PH, PCO2, PO2, [id number], BICARBWB, BASEDEFICIT, BASEEXCESS in the last 168 hours. Imaging: Radiology Results (Last 48 hours) 12/12/[address] ABD+PEL W CON Final result Impression: IMPRESSION: 1. Genitourinary abnormalities as described. Clinical correlation required. See text. 2. Possible fecal impaction. 3. Redemonstrated cholelithiasis. Referred By: Interpreted By: Cody Duong MD, 12/12/2023 1:27 PM Assessment/Plan: Pyelonephritis Sepsis, improved Pyelonephritis Presented with leukocytosis (WBC 24), tachycardia Source: pyelonephritis, PNA CT A/P shows moderate bilateral renal edema, perinephric stranding, renal pelvis and ureteral wall thickening and urinary bladder thickening. Mild bilateral hydronephrosis. Lactic acid 1.0, Troponin wnl Blood culture deferred in absence of severe sepsis and nationwide tube shortage Ceftriaxone stopped. Will change antibiotics to vancomycin and cefepime in light of worsening leukocytosis and persistent severe suprapubic pain Urology consulted: no current plan for intervention. Plan to treat pyelo & will ultimately needcystoscopy bilateral stent removal bilateral retrograde pyelography once his infection has cleared UA & Ucx obtained. Note were not able to be obtained until well after IV abx were started. Urine culture with polymicrobial growth concerning for contamination Repeat ucx (due to potential contaminated prior culture) with GNR Will stop vancomycin, continue cefepime Patient is scheduled for cystoscopy with bilateral stent exchange with Dr. Burr at [facility] on 12/22 at 1 PM. Will tentatively plan to continue patient on antibiotics until that time Since continues to have persistent severe suprapubic tenderness CT A/P with contrast obtained on 12/11. Discussed findings with urology who opined that the findings are generally unremarkable from their perspective Urine culture results updated today with the addition of Enterococcus and Pseudomonas in addition to prior discovered Klebsiella Antibiotics changed to IV Unasyn and Levaquin inpatient with plans to transition to oral Augmentin and Levaquin outpatient As aforementioned, we will plan to continue this regimen until patient has procedure Pneumonia, resolved CT A/P shows mild opacities in the right lower lobe and minimal opacities in the left lower lobe suggesting infiltrate and subsegmental atelectasis. Denies cough, fever, afebrile PCT elevated, though in the setting of ESRD this is unreliable Suspect CAP Abx as above Titrate supplemental O2 to maintain saturations > 90% IS and Acapella Chronic Hyponatremia Na 129 on admission, down to 127 in 03/2020 Also endorses poor PO intake last 2-3 weeks Hold HCTZ Monitor ESRD HD on ; last dialyzed on Wednesday Nephrology consulted for HD, appreciate recommendations Avoid nephrotoxic agents Monitor renal function AOCD Hgb 11.0, baseline ~10-11 No obvious signs of bleeding Monitor H&H and transfuse for Hgb < 7 Hypertension BP stable Reports not taking amlodipine Currently normotensive Monitor and adjust as clinically warranted SDOH: Reviewed, none identified at this time -DVT prophylaxis: Heparin SQ -Code Status: Full Code Taj Chamorro MD 12/13/2023 * Enrique Jimenez MD - 12/13/2023 5:30 AM CDT Man Jeanie Matthews is a 68-year-old male patient. Dialysis note Reason for Follow Up: ESRD on HD Subjective: Mr. Matthews is feeling ok. AP improved. No cough, fever, CP, nausea, vomiting, diarrhea, dizziness Current Facility-Administered Medications Medication Dose Route Frequency Provider Last Rate Last Admin acetaminophen (TYLENOL) tablet 650 mg 650 mg Oral Q4H PRN Chula Martinez NP 650 mg at 12/08/232110 albuterol sulfate HFA 108 (90 Base) MCG/ACT inhaler 2 puff 2 puff Inhalation Q4H PRN Chula Martinez NP ampicillin-sulbactam (UNASYN) 3 g in sodium chloride 0.9 % 100 mL IVPB 3 g Intravenous Q12H Taj Chamorro MD bisacodyl (DULCOLAX) suppository 10 mg 10 mg Rectal Daily PRN Taj Chamorro MD calcium carbonate (TUMS) chewable tablet 500 mg 500 mg Oral Daily PRN Cristian Min MD 500 mg at 12/09/23 0212 heparin (porcine) injection 5,000 Units 5,000 Units Subcutaneous 2 times per day Chula Martinez NP 5,000 Units at 12/12/23 0833 HYDROcodone-acetaminophen (NORCO) 5-325 MG tablet 1 tablet 1 tablet Oral Q4H PRN Chula Martinez NP 1 tablet at 12/13/23 0552 HYDROmorphone (DILAUDID) injection 0.2 mg 0.2 mg Intravenous Q2H PRN Taj Chamorro MD 0.2 mg at 12/11/231958 influenza vaccine (FLUZONE) injection 0.5 mL 0.5 mL Intramuscular Prior to discharge Taj Quijano MD [START ON 12/15/2023] levoFLOXacin (LEVAQUIN) IVPB 500 mg 500 mg Intravenous Q24H Taj Chamorro MD levoFLOXacin (LEVAQUIN) IVPB 750 mg 750 mg Intravenous Once Taj Chamorro MD melatonin tablet 3 mg 3 mg Oral Nightly at bedtime Cristian Min MD 3 mg at 12/12/23 2159 naLOXone (NARCAN) injection 0.4 mg 0.4 mg Intravenous PRN Chula Martinez NP ondansetron (ZOFRAN) injection 4 mg 4 mg Intravenous Q8H PRN Chula Martinez NP polyethylene glycol (GLYCOLAX) packet 17 g 17 g Oral Daily Taj Chamorro MD 17 g at 12/12/23 1619 Senna (SENOKOT) 8.6 MG tablet 8.6 mg 8.6 mg Oral Nightly at bedtime Taj Chamorro MD 8.6 mg at 12/11/231957 Review of patient's allergies indicates: Allergen Reactions Lisinopril Anaphylaxis and Angioedema Denies allergy 12/08/23 Principal Problem: Pyelonephritis SNOMED CT(R): PYELONEPHRITIS Social History Tobacco Use Smoking status: Every Day Current packs/day: 0.50 Average packs/day: 0.5 packs/day for 47.4 years (23.7 ttl pk-yrs) Types: Cigarettes Start date: 08/05/1976 Smokeless tobacco: Never Substance Use Topics Alcohol use: Yes Alcohol/week: 8.3 standard drinks of alcohol Types: 5 Shots of liquor per week Objective: Filed Vitals: 12/13/23 1100 12/13/23 1115 12/13/23 1122 12/13/23 1130 BP: 99/74 94/48 97/52 120/53 Pulse: (!) 119 (!) 125 (!) 120 77 Resp: 16 Temp: 97.6 ??F (36.4 ??C) TempSrc: Oral SpO2: Weight: Height: Physical Exam: -GENERAL: No acute distress, breathing comfortably on room air. -EYES: Extraocular movements intact -LUNG: CTA lavern., no wheezes -CVS: Regular rate rhythm -ABDOMEN: Soft, nondistended, tender to palpation mainly in the lower abdomen; but slightly better. -Musculoskeletal / EXT: no legs edema. -NEURO: AAOx3 LABs I reviewed labs Recent Labs Lab 12/08/23 0857 12/09/23 0449 12/10/23 0542 12/11/23 0520 12/12/23 0420 12/13/23 0542 NA 129* 132* 131* 135* 133* 132* K 3.9 3.8 3.6 3.3* 3.9 4.1 CL 91* 98 96* 101 102 101 CO2 25.8 27.4 27.1 25.1 24.3 23.0 AGAP 12.2* 6.6 7.9 8.9 6.7 8.0 BUN 34* 19* 29* 20* 33* 44* CR 4.69* 3.14* 4.26* 3.50* 4.75* 5.74* BUNCREATININ 7.2 6.1 6.8 5.7* 6.9 7.7 GLU 100* 126* 99 134* 117* 105* CA 9.1 9.1 9.2 9.2 9.2 9.0 MAGNESIUM -- 2.3 -- -- -- -- Recent Labs Lab 12/08/23 0857 12/09/23 0449 12/10/23 0420 12/11/23 0520 12/12/23 0420 12/13/23 0542 WBC 24.08* 19.51* 20.74* 16.14* 11.93* 10.28 RBC 3.52* 3.46* 3.25* 3.08* 3.06* 3.25* HGB 11.0* 10.7* 10.1* 9.7* 9.4* 10.0* HCT 31.5* 31.5* 29.6* 28.1* 27.7* 29.6* MCV 89.5 91.0 91.1 91.2 90.5 91.1 MCH 31.3* 30.9 31.1* 31.5* 30.7 30.8 MCHC 34.9 34.0 34.1 34.5 33.9 33.8 PLT 460* 380 385 376 411* 468* RDW 13.4 13.7 14.1 14.3 14.4 14.6* MPV 9.9 10.0 10.5 10.0 10.1 9.9 Assessment/Plan: Mr. Matthews a 68 years old male with past medical history of end-stage renal disease on chronic hemodialysis Wednesday, hypertension, OACD. -He presented to the ED today with 2 to 3 weeks of lower abdominal pain with diarrhea, fatigue. --- End-stage renal disease on chronic hemodialysis MWF; last dialysis was Wednesday with UF of 1.8L. plan for HD today per regular schedule. On oral fluids restriction; hyponatremia improved. Patient was seen and examined during HD. -Imaging showed lavern ureter stents, bilateral renal edema, perinephric stranding with ureteral and urinary bladder wall thickening which consist of infection/pyelonephritis with mild bilateral hydronephrosis. Urine Cx with mednia- sensitivei klebsiella; On Abx. Urology on board and plan for cystoscopy with bilateral ureteral stent removal vs. exchange on 12/23/2023 --- Hypertension; normotensive off meds --- Anemia of CKD with hemoglobin at 10 ENRIQUE JIMENEZ MD 12/13/2023 * Missy Guerrier RN - 12/13/2023 3:57 AM CDT Problem: Reduced risk for falls/injury Goal: Reduced Risk for Falls/Injury Outcome: Progressing Goal: Reduced Risk of Confusion (Acute vs Chronic) Outcome: Progressing Goal: Reduced Risk of Symptomatic Depression Outcome: Progressing Goal: Reduced Risk of Altered Elimination Outcome: Progressing Goal: Reduced Risk of Dizziness/Vertigo/Balance Outcome: Progressing Goal: Reduced Risk of Polypharmacy Outcome: Progressing Problem: Discharge Planning Goal: Knowledge of discharge instructions Outcome: Progressing Problem: Pain control/comfort Goal: Promote pain control/comfort Outcome: Progressing Problem: Skin integrity, Impaired-wound Goal: Absence of new skin breakdown Outcome: Progressing Problem: Skin integrity, Impaired-pressure injury/ulcer Goal: Absence of new skin breakdown Outcome: Progressing Problem: Skin integrity, at risk Goal: Absence of new skin breakdown Outcome: Progressing Problem: Moisture associated skin impairment Goal: Reduce moisture exposure Outcome: Progressing Goal: Absence of new skin breakdown Outcome: Progressing Problem: Toileting Goal: STG - Pt will complete 3/3 toilet tasks (clothing up, clothing down, hygiene) with Description: MIN A 2ww Outcome: Progressing Problem: Transfers Goal: STG - Pt will perform a toilet transfer with Description: SBA 2ww Outcome: Progressing Problem: Mobility Goal: STG - Pt will ambulate Description: The patient will progress during gait training to ambulating 50'x1 trial w/FWW requiring min/SBA. Outcome: Progressing Problem: Transfers Goal: STG - Pt will perform bed mobility Description: The patient will increase all bed mobility activities to mod (I). Outcome: Progressing Problem: Misc. Goal: PT Misc 1 Description: The patient will increase all transfers to SBA. Outcome: Progressing * Taj Chamorro MD - 12/12/2023 9:36 AM CDT Images from the original note were not included. Hospitalist Daily Progress Note Subjective No acute events overnight. Patient seen and evaluated this morning at bedside. Still with persistent suprapubic pain. Requiring significant opioid doses to control this. Denying any fevers or chills.Otherwise not having any complaints. Objective Filed Vitals: 12/11/23 1937 12/12/23 0009 12/12/23 0419 12/12/23 0816 BP: 132/81 111/79 119/78 Pulse: 83 85 (!) 54 (!) 53 Resp: Temp: 98.2 ??F (36.8 ??C) 98.4 ??F (36.9 ??C) 97.5 ??F (36.4 ??C) TempSrc: Oral SpO2: 98% 100% 100% Weight: 63.9 kg (140 lb 14 oz) Height: Physical Exam Constitutional: General: He is not in acute distress. Appearance: Normal appearance. Cardiovascular: Rate and Rhythm: Normal rate and regular rhythm. Heart sounds: No murmur heard. No gallop. Pulmonary: Effort: Pulmonary effort is normal. Breath sounds: Normal breath sounds. Abdominal: General: Abdomen is flat. Bowel sounds are normal. There is no distension. Palpations: Abdomen is soft. Tenderness: There is abdominal tenderness. There is guarding. Skin: General: Skin is warm and dry. Neurological: General: No focal deficit present. Mental Status: He is alert and oriented to person, place, and time. Intake/Output 24H Total: Intake/Output Summary (Last 24 hours) at 12/12/2023 0937 Last data filed at 12/12/2023418 Gross per 24 hour Intake 420 ml Output 325 ml Net 95 ml Medication cefTRIAXone 1 g Intravenous Q24H heparin (porcine) 5,000 Units Subcutaneous 2 times per day melatonin 3 mg Oral Nightly at bedtime Senna 8.6 mg Oral Nightly at bedtime PRN Meds: acetaminophen, albuterol sulfate HFA, calcium carbonate, HYDROcodone- acetaminophen, HYDROmorphone, influenza, naLOXone, ondansetron, polyethylene glycol Labs: Recent Labs Lab 12/08/23 0857 12/09/23 0449 12/10/23 0542 12/11/23 0520 12/12/23 0420 NA 129* 132* 131* 135* 133* K 3.9 3.8 3.6 3.3* 3.9 CL 91* 98 96* 101 102 CO2 25.8 27.4 27.1 25.1 24.3 AGAP 12.2* 6.6 7.9 8.9 6.7 BUN 34* 19* 29* 20* 33* CR 4.69* 3.14* 4.26* 3.50* 4.75* BUNCREATININ 7.2 6.1 6.8 5.7* 6.9 GLU 100* 126* 99 134* 117* CA 9.1 9.1 9.2 9.2 9.2 MAGNESIUM -- 2.3 -- -- -- Recent Labs Lab 12/08/23 0857 12/09/239 12/10/230 12/11/23 0520 12/12/23419 WBC 24.08* 19.51* 20.74* 16.14* 11.93* RBC 3.52* 3.46* 3.25* 3.08* 3.06* HGB 11.0* 10.7* 10.1* 9.7* 9.4* HCT 31.5* 31.5* 29.6* 28.1* 27.7* MCV 89.5 91.0 91.1 91.2 90.5 MCH 31.3* 30.9 31.1* 31.5* 30.7 MCHC 34.9 34.0 34.1 34.5 33.9 PLT 460* 380 385 376 411* RDW 13.4 13.7 14.1 14.3 14.4 MPV 9.9 10.0 10.5 10.0 10.1 Recent Labs Lab 12/08/23 0857 AST 20 ALT 12* No results for input(s): INR, PTT in the last 168 hours. Invalid input(s): ABG arterial blood gases Recent Labs Lab 12/08/23 0857 TROP 4 No results for input(s): PH, PCO2, PO2, [id number], BICARBWB, BASEDEFICIT, BASEEXCESS in the last 168 hours. Imaging: Radiology Results (Last 48 hours) None Assessment/Plan: Pyelonephritis Sepsis, improved Pyelonephritis Presented with leukocytosis (WBC 24), tachycardia Source: pyelonephritis, PNA CT A/P shows moderate bilateral renal edema, perinephric stranding, renal pelvis and ureteral wall thickening and urinary bladder thickening. Mild bilateral hydronephrosis. Lactic acid 1.0, Troponin wnl Blood culture deferred in absence of severe sepsis and nationwide tube shortage Ceftriaxone stopped. Will change antibiotics to vancomycin and cefepime in light of worsening leukocytosis and persistent severe suprapubic pain Urology consulted: no current plan for intervention. Plan to treat pyelo & will ultimately needcystoscopy bilateral stent removal bilateral retrograde pyelography once his infection has cleared UA & Ucx obtained. Note were not able to be obtained until well after IV abx were started. Urine culture with polymicrobial growth concerning for contamination Repeat ucx (due to potential contaminated prior culture) with GNR Will stop vancomycin, continue cefepime Patient is scheduled for cystoscopy with bilateral stent exchange with Dr. Burr at [facility] on 12/22 at 1 PM. Will tentatively plan to continue patient on antibiotics until that time Since continues to have persistent severe suprapubic tenderness, will obtain CT abdomen pelvis withcontrast Pneumonia CT A/P shows mild opacities in the right lower lobe and minimal opacities in the left lower lobe suggesting infiltrate and subsegmental atelectasis. Denies cough, fever, afebrile PCT ordered Suspect CAP Stopped IV ceftriaxone as above, continue azithromycin Titrate supplemental O2 to maintain saturations > 90% IS and Acapella Chronic Hyponatremia Na 129 on admission, down to 127 in 03/2020 Also endorses poor PO intake last 2-3 weeks Hold HCTZ Monitor ESRD HD on ; last dialyzed on Wednesday Nephrology consulted for HD, appreciate recommendations Avoid nephrotoxic agents Monitor renal function AOCD Hgb 11.0, baseline ~10-11 No obvious signs of bleeding Monitor H&H and transfuse for Hgb < 7 Hypertension BP stable Reports not taking amlodipine Currently normotensive Monitor and adjust as clinically warranted SDOH: Reviewed, none identified at this time -DVT prophylaxis: Heparin SQ -Code Status: Full Code Taj Chamorro MD 12/12/2023 * Albert Joe, PT - 12/11/2023 3:04 PM CDT 12/11/23 0700 How much difficulty does the patient currently have... Turning over in bed (including adjusting bedclothes, sheets, and blankets)? 3 (A Little) Sitting down and standing up from a chair with arms (e.g., wheelchair, bedside commode, etc.) 3 (A Little) Moving from lying on back to sitting on the side of the bed? 3 (A Little) How much help from another person does the patient currently need... Moving to and from a bed to a chair (including a wheelchair)? 2 (A Lot) Walking in a hospital room? 2 (A Lot) Climbing 3-5 steps with a railing? 2 (A Lot) Basic Mobility Score Score out of 15 * Albert Joe, PT - 12/11/2023 3:03 PM CDT 12/11/23 1400 Therapy Visit Ordering Provider JOSE LUIS Martinez PT Received On 12/11/23 PT Evaluation Completed on 12/11/23 Treatment Day 1 Subjective Rm 521 PT orders received w/EMR reviewed. Patient supine agreeable to OOB activities. Reason for admission DX: Pyelonephritis Relevant Comorbidities/ Personal Factors to PT PMHX: ESRD on HD(M-W-F), HTN, AOCD, chronic hyponatremia Verified Two Patient Identifiers Yes Patient consents to therapy Yes Acute Inpatient PT Time Calculation PT Start Time 1355 PT Stop Time 1423 PT Time Calculation (min) 28 min Precautions General Precautions Bed Alarm;Chair Alarm;Fall Risk PPE Used Gloves;Gown;Face mask Instructed on Precautions Yes;Verbalizes understanding;Needs reinforcement and education Skin Integrity intact Home Living Type of Home House Home Layout Two level (w/ basement and pt lives upstairs; is a bedroom on main floor) Home Accessibility 5+ Steps to enter (5; 12-13 steps upstairs with no handrail) Bathroom Shower/Tub Tub/shower unit Bathroom Toilet Standard Toilet Bathroom Accessibility Accessible Home Equipment Straight cane;2 Wheeled walker;4 Wheeled walker Prior Function Level of [place] Independent with ADLs;Independent with functional transfers;Independent with ambulation Device used at baseline Straight cane;2 Wheeled walker Baseline Ambulation Distance/Assistance household with cane and 2ww in community but limited Fall History Yes Reason for fall LOB Most recent fall a month ago How many falls in the past year? 2 Lives With Family (sister) Receives Help From Family ADL Assistance Independent Homemaking Assistance Needs assistance PLOF Comments sister does most IADLs. pt does manage meds Pain Pain Yes Pain Score 8 Location abdomen Interventions Re-direction;Relaxation;Re-positioning Activity Tolerance Endurance Tolerates < 10 min activity, no significant change in vital signs Endurance Quality Poor Limiting Factors to Endurance Dizziness;Acute deconditioning;Weakness VS Response During Activity B/P(sitting) (R)UE = 139/94 & 122/64 Cognition Overall Cognitive Status Impaired Arousal/Alertness Appropriate responses to stimuli Attention Span Attends with cues to redirect Memory Decreased recall of recent events;Decreased short term memory Orientation Level Oriented X4 Following Commands Follows one step commands with repetition Safety Judgment Decreased awareness of need for assistance Awareness of Errors Assistance required to identify errors made Deficits Decreased awareness of deficits Problem Solving Assistance required to generate solutions RLE Assessment RLE Assessment WFL LLE Assessment LLE Assessment WFL Bed Mobility Supine to Sit Min assist to right Sit to Supine SBA/supervision TRANSFERS Sit to Stand Min assist;Assist of 2 Gait Other (Comment) patient unable to ambulate due to dizziness upon standing Stairs Other (Comment) n/a'd Wheelchair Mobility Other (Comment) n/a'd Balance Sitting - Static SBA;Support of both upper extremities Sitting - Dynamic Min Assist;Support of one upper extremity Standing - Static Min Assist;Assist of 2 Persons Standing - Dynamic Not Tested Assessment Personal Factors/Comorbidities Impacting Care 3-4 personal factors/comorbidities Examination of Body Systems Moderate (3 or more Elements) Objectives of Body Systems Impaired bed mobility;Impaired transfers;Impaired ambulation;Impaired balance;Decreased LE strength Clinical Presentation of Patient Evolving and changing characteristics Complexity Level of Evaluation Moderate Prognosis Fair PT Assess/Eval Other (Comment) The patient is a 68 year old male hospitalized with a dx of pyelonephritis who presents with a decline in his functional mobility and functional (I) impacting his ability to perform his normal ADL's and self care activities. Due to his decline the patient would benefit from PT services while hospitalized and SNF v.s. SWB placement post hospitalization. Patient/Family Training Bed Mobility x Transfer Training x Gait Training x (pregait) Plan PT Treatments/Interventions Gait Training;Therapeutic Exercises;Therapeutic Activities;Neuromuscular re-education Progress Slow progress, medical status limitations PT Frequency 6 times/week PT plan for next session gait training, ther-ex, ther-activ, neuro re-ed If this is the last treatment note,it will serve as the discharge summary Yes End of Session End of Session Safety Bed alarm set/activated;Call light within reach;Nursing aware of session Interdisciplinary Collaboration RN, OT * Blanca Bauer, OT - 12/11/2023 2:56 PM CDT 12/11/23 1300 Therapy Visit OT Evaluation Completed on 12/11/23 Reason for admission Pyelonephritis Comorbidities Relevant to OT Past Medical History: Diagnosis Date Hypertension Renal disorder Ordering Provider JOSE LUIS Martinez Verified Two Patient Identifiers Yes Patient consents to therapy Yes Acute Inpatient OT Time Calculation OT Start Time 1353 OT Stop Time 1423 OT Time Calculation (min) 30 min Precautions General Precautions Bed Alarm;Chair Alarm;Fall Risk;Port PPE Used Gloves;Gown Instructed on Precautions Yes;Verbalizes understanding;Needs reinforcement and education Kelli cortes Subjective Subjective RM 521: OT orders received and EMR reviewed. RN ok. Pt supine in bed and agreeable to therapy but stating he wants to return to bed. Home Living Type of Home House Home Layout Two level (w/ basement and pt lives upstairs; is a bedroom on main floor) Home Accessibility 5+ Steps to enter (5; 12-13 steps upstairs with no handrail) Bathroom Shower/Tub Tub/shower unit Bathroom Toilet Standard Toilet Home Equipment Straight cane;2 Wheeled walker;4 Wheeled walker Prior Function Level of [place] Independent with ADLs;Independent with functional transfers;Independent with ambulation Device used at baseline Straight cane;2 Wheeled walker Baseline Ambulation Distance/Assistance household with cane and 2ww in community but limited Fall History Yes Reason for fall LOB Most recent fall a month ago How many falls in the past year? 2 Lives With Family (sister) Receives Help From Family ADL Assistance Independent Homemaking Assistance Needs assistance PLOF Comments sister does most IADLs. pt does manage meds Pain Pain Yes Pain Score 8 Location abdomen Interventions Relaxation;Re-positioning;Re-direction;Informed RN Activity Tolerance Endurance Tolerates < 10 min activity, no significant change in vital signs Endurance Quality Poor Limiting Factors to Endurance Acute deconditioning;Dizziness;Weakness;Fatigue;Pain VS Response During Activity pt reports dizziness with standing, pt requested to sit and BP: 139/94 mmHg, after sitting improved dizziness so pt stood again but again reports dizzines and pt unable tostand for full BP. when sitting again, BP: 124/66mmHg Cognition Overall Cognitive Status WFL Arousal/Alertness Appropriate responses to stimuli Attention Span Appears intact Memory Appears intact Orientation Level Oriented X4 Following Commands Follows one step commands with repetition Safety Judgment Decreased awareness of need for assistance Awareness of Errors Assistance required to identify errors made Deficits Decreased awareness of deficits Problem Solving Assistance required to generate solutions Motor Planning Appears intact Perseveration Not present Initiation Cues to initiate tasks Overall Extremity Assessment Upper Extremity BUE limited at shoulders ~90/180 bilaterally and unable to tolerate PROM due to pain, fair/poor strength (frailty) Hand Function Gross Grasp Functional Coordination Impaired (poor BHC due to requiring one UE support for dynamic sitting ADL tasks) Sensation Light Touch No apparent deficits ADL Eating/Feeding Assistance Modified independent (Device) Eating/Feeding Deficit Setup Grooming Assistance Stand by;Sitting at EOB Grooming Deficit Setup;Supervision/safety;Increased time to complete Bathing Assistance Moderate Bathing Deficit Setup;Supervision/safety;Increased time to complete;Left lower leg including foot;Right lower leg including foot;Buttocks;Perineal area UE Dressing Assistance Minimal;Moderate UE Dressing Deficit Setup;Supervision/safety;Increased time to complete;Pull around back;overnight babysitter head LE Dressing Assistance Moderate LE Dressing Deficit Setup;Supervision/safety;Increased time to complete;Don/doff R sock;Thread RLE into pants;Thread LLE into pants;Thread RLE into underwear;Thread LLE into underwear LE Dressing Comment pt able to don L sock using figure four and one UE support for balance but required assistance for R sock Toileting Assistance Moderate Toileting Deficit Setup;Supervision/safety;Increased time to complete;Clothing management down;Clothing management up Bed Mobility Supine to Sit Min assist to right Sit to Supine SBA/supervision Functional Transfers Sit to Stand Mod assist Toilet Transfers Not tested Other (Comment) IRAIS transfer this date due to dizziness and IRAIS functional mobility due to dizziness; pt stood x2 with MOD A and stood at 2ww for less than a minute before needing to sit each time; pt able to stand static with MIN a x2 Balance Sitting - Static SBA Sitting - Dynamic SBA;Min Assist Standing - Static Min Assist;Assist of 2 Persons;Support of both upper extremities Proprioception Proprioception No apparent deficits Assessment Occupational Profile and History Complexity High (Extensive) Performance Skills Deficits Bathing/showering;Toileting;Social participation;Safety and emergency maintenance;Personal hygiene and grooming;Health management and maintenance;Functional mobility;Dressing;Driving and community mobility Performance Deficit Level High (5 or more deficits) Clinical Decision Making Moderate (min/mod modifications) Complexity Level of Evaluation High Prognosis Fair OT Assess/Eval Other (Comment) Pt is a 68 y/o admitted for pyelonephritis. 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 At this time, pt completing most ADLs with min/mod A. Pt BUE are limited at shoulders impacting ADL indep and safety. Pt requiring one UE support for dynamic sitting balance and 2 UE for static standing balance also impacting ADL indep and safety. Pt limited by dizziness and fluctuating BP this date. Pt not safe to return home and continues to benefit from skilled OT to promote inc strength and endurance for ADL indep and return to PLOF. Patient/Family Training Self Cares x Transfer Training x DME Education x Other (Comment) fair insight Discharge Recommendation OT Recommendation OT at [facility] OT Equipment Recommended To Be Determined Plan OT Treatment/Intervention Self-care training;Therapeutic exercises;Therapeutic activities;Functional activity;Safety;Patient/family training;Cognitive skills development OT Frequency 3 times/week;4 times/week OT plan for next session ADLS If this is the last treatment note, it will serve as the discharge summary Yes End of Session End of Session Safety Call light within reach;Bed alarm set/activated;Nursing aware of session Interdisciplinary Collaboration RN, PT [facility] AM-PAC Daily Activity Please check the box that reflects your (the patient???s) best answer to each question Unable (1) ALot (2) A Little (3) None (4) 1. Putting on and taking off regular lower body clothing? 2 2. Bathing (including washing, rinsing, drying)? 2 3. Toileting, which includes toilet, bedpan, or urinal? 2 4. Putting on and taking off regular upper body clothing? 2 5. Taking care of personal grooming such as brushing teeth? 3 6. Eating meals? 4 Clinicians may find the following helpful in selecting responses: 1. Unable = Total/Dependent Assist 2. A Lot = Maximum/Moderate Assist 3. A Little = Minimum/Contact Guard Assist/Supervision 4. None = Modified [place]/Independent Raw score = 15 Degree of functional impairment =56% * Taj Chamorro MD - 12/11/2023 9:36 AM CDT Images from the original note were not included. Hospitalist Daily Progress Note Subjective No acute events overnight. Patient seen and evaluated this morning at bedside. Still with lower abdominal pain but it is improved from prior on current pain regimen. He reports that he is passing gasbut has not had a bowel movement for 2 days. No other questions or concerns Objective Filed Vitals: 12/11/23 0442 12/11/23 0519 12/11/23 0756 12/11/23 1241 BP: 137/86 119/81 116/83 Pulse: (!) 101 89 94 Resp: 18 18 18 Temp: 98.2 ??F (36.8 ??C) 98.4 ??F (36.9 ??C) 98.2 ??F (36.8 ??C) TempSrc: Oral SpO2: 96% 99% 99% Weight: 62.8 kg (138 lb 7.2 oz) Height: Physical Exam Constitutional: General: He is not in acute distress. Appearance: Normal appearance. Cardiovascular: Rate and Rhythm: Normal rate and regular rhythm. Heart sounds: No murmur heard. No gallop. Pulmonary: Effort: Pulmonary effort is normal. Breath sounds: Normal breath sounds. Abdominal: General: Abdomen is flat. Bowel sounds are normal. There is no distension. Palpations: Abdomen is soft. Tenderness: There is abdominal tenderness. There is guarding. Skin: General: Skin is warm and dry. Neurological: General: No focal deficit present. Mental Status: He is alert and oriented to person, place, and time. Intake/Output 24H Total: Intake/Output Summary (Last 24 hours) at 12/11/2023 1257 Last data filed at 12/11/2023 1100 Gross per 24 hour Intake 730 ml Output 300 ml Net 430 ml Medication cefepime 1 g Intravenous Q24H heparin (porcine) 5,000 Units Subcutaneous 2 times per day melatonin 3 mg Oral Nightly at bedtime PRN Meds: acetaminophen, albuterol sulfate HFA, calcium carbonate, HYDROcodone- acetaminophen, HYDROmorphone, influenza, naLOXone, ondansetron, polyethylene glycol, Senna Labs: Recent Labs Lab 12/08/2357 12/09/2344812/10/23 0542 12/11/23 0520 NA 129* 132* 131* 135* K 3.9 3.8 3.6 3.3* CL 91* 98 96* 101 CO2 25.8 27.4 27.1 25.1 AGAP 12.2* 6.6 7.9 8.9 BUN 34* 19* 29* 20* CR 4.69* 3.14* 4.26* 3.50* BUNCREATININ 7.2 6.1 6.8 5.7* GLU 100* 126* 99 134* CA 9.1 9.1 9.2 9.2 MAGNESIUM -- 2.3 -- -- Recent Labs Lab 12/08/2357 12/09/2344812/10/23 0420 12/11/23 0520 WBC 24.08* 19.51* 20.74* 16.14* RBC 3.52* 3.46* 3.25* 3.08* HGB 11.0* 10.7* 10.1* 9.7* HCT 31.5* 31.5* 29.6* 28.1* MCV 89.5 91.0 91.1 91.2 MCH 31.3* 30.9 31.1* 31.5* MCHC 34.9 34.0 34.1 34.5 PLT 460* 380 385 376 RDW 13.4 13.7 14.1 14.3 MPV 9.9 10.0 10.5 10.0 Recent Labs Lab 12/08/23 0857 AST 20 ALT 12* No results for input(s): INR, PTT in the last 168 hours. Invalid input(s): ABG arterial blood gases Recent Labs Lab 12/08/23 0857 TROP 4 No results for input(s): PH, PCO2, PO2, [id number], BICARBWB, BASEDEFICIT, BASEEXCESS in the last 168 hours. Imaging: Radiology Results (Last 48 hours) None Assessment/Plan: Pyelonephritis Sepsis, improved Pyelonephritis Presented with leukocytosis (WBC 24), tachycardia Source: pyelonephritis, PNA CT A/P shows moderate bilateral renal edema, perinephric stranding, renal pelvis and ureteral wall thickening and urinary bladder thickening. Mild bilateral hydronephrosis. Lactic acid 1.0, Troponin wnl Blood culture deferred in absence of severe sepsis and nationwide tube shortage Ceftriaxone stopped. Will change antibiotics to vancomycin and cefepime in light of worsening leukocytosis and persistent severe suprapubic pain Urology consulted: no current plan for intervention. Plan to treat pyelo & will ultimately needcystoscopy bilateral stent removal bilateral retrograde pyelography once his infection has cleared UA & Ucx obtained. Note were not able to be obtained until well after IV abx were started. Urine culture with polymicrobial growth concerning for contamination Repeat ucx (due to potential contaminated prior culture) with GNR Will stop vancomycin, continue cefepime Patient is scheduled for cystoscopy with bilateral stent exchange with Dr. Burr at [facility] on 12/22 at 1 PM. Will tentatively plan to continue patient on antibiotics until that time Pneumonia CT A/P shows mild opacities in the right lower lobe and minimal opacities in the left lower lobe suggesting infiltrate and subsegmental atelectasis. Denies cough, fever, afebrile PCT ordered Suspect CAP Stopped IV ceftriaxone as above, continue azithromycin Titrate supplemental O2 to maintain saturations > 90% IS and Acapella Chronic Hyponatremia Na 129 on admission, down to 127 in 03/2020 Also endorses poor PO intake last 2-3 weeks Hold HCTZ Monitor ESRD HD on ; last dialyzed on Wednesday Nephrology consulted for HD, appreciate recommendations Avoid nephrotoxic agents Monitor renal function AOCD Hgb 11.0, baseline ~10-11 No obvious signs of bleeding Monitor H&H and transfuse for Hgb < 7 Hypertension BP stable Reports not taking amlodipine Currently normotensive Monitor and adjust as clinically warranted SDOH: Reviewed, none identified at this time -DVT prophylaxis: Heparin SQ -Code Status: Full Code Taj Chamorro MD 12/11/2023 * Dm Tolbert, ChelyD, [facility] - 12/11/2023 9:05 AM CDT Vancomycin Pharmacy to Dose Day #2 Ordering Provider: Pedro Pablo (Hospitalist) Indication: infection Ht/Wt: 6', 63.4 kg Date WBC SCr Tmax Level Dose 12/09 20.74 4.26 98.8 1250mg x1 12/10 16.1 3.5 98.5 21.1 Other Antibiotics: - cefepime 12/09 - present - ceftriaxone 12/07-12/08 Cultures/Tests: - 12/08 urine culture: in process - 12/09 urine culture: in process A/P: Pharmacy has been consulted to dose vancomycin in this patient for a infection. This 68 YOMhas a PMH significant for ESRD on HD MoWeFr, HTN, AOCD, and chronic hyponatremia. The patient presented to the ED with c/o lower abdominal pain x 2-3 weeks that worsened. Imaging was concerning for py elonephritis and mild bilateral hydronephrosis. Patient received an initial 1250mg vancomycin dose. The WBC count has improved this morning. The vancomycin level is 21.1, the patient will not go for dialysis today per RN. Can re-dose the patient after dialysis on Wednesday, additional level is not needed. * Chico Ingram MD - 12/10/2023 5:33 PM CDT Images from the original note were not included. Urology Brief Update Note: Discussed case with our SERENA, Herlinda Paez today. This is a 68yM with PMHx of ESRD on HD with retained bilateral ureteral stents and UTI/pyelo - No acute urologic surgical intervention planned during this hospitalization - Patient is scheduled with my colleague Dr. Burr on 12/23/2023 for cystoscopy with bilateralureteral stent removal vs. exchange - In discussion with patient's PCP/ID physician Dr. Spain, we recommend continuing patient on antibiotics (could be transitioned to oral) through the patient's surgery date above - Urology will sign off at this time, please notify our team if there are any questions/concerns ---- Chico Ingram MD [facility] Office and after-hours exchange phone number: [phone] * LANA SommerT - 12/10/2023 3:38 PM CDT 12/10/23 1537 Therapy Visit Ordering Provider JOSE LUIS Martinez Subjective PT reviewed pt's EMR and spoke with his RN who states that she recently provided pt withpain medications. Pt adamantly refused therapy evaluation due to abdominal pain and cramping. PT will reattempt as appropraite Reason for admission Pyelonephritis * Blanca Bauer OT - 12/10/2023 3:36 PM CDT 12/10/23 1500 Therapy Visit Reason for admission Pyelonephritis Ordering Provider JOSE LUIS Martinez Acute Inpatient OT Time Calculation OT Start Time 1344 Subjective Subjective RM 521: OT orders received and EMR reviewed. RN ok. Pt moaning in pain and reports too much pain at this time to participate in movement. OT will hold and follow up at later date/time as able. * CHAPLAIN Marcial - 12/10/2023 3:17 PM CDT Patient assessed for emotional/spiritual needs and well-being, role of Spiritual Care explained. Patient's Disposition/People present: Alert/uncomfortable/receptive/alone in room Patient's support system: Family members Hindu Affiliation/Spiritual Background: None Needs identified: Coping with the aftermath of recent procedure, expressing discomfort/anxiety/frustration. Pt is concerned about his kidneys, and stated pain level 9/10 Interventions: Spiritual Care facilitated patient in attaining their spiritual goals by: Spiritual: Promoting self reflection/discovery of feelings Providing active listening as patient engaged in life review and story telling Understanding patient's perception of and connectedness to God Exploring patient's sources of strength/coping mechanism Sharing words comfort/hope Providing Scripture encouragement and prayer blessing to offer pt spiritual care Emotional: Demonstrating acceptance of patient Encouraging/affirming patient's emotions Offering emotional support to patient Follow up Needed: Pre Sales Architect will be available for ongoing support as needs arise Health care directive: Spiritual Care provided the following services related to advance directives: Advance directive education provided and blank document with instructions given to patient for his/her consideration. * Herlinda Paez NP - 12/10/2023 2:36 PM CDT Patient in hemodialysis during two attempts at bedside eval. Chart reviewed. 12/09/23 urine culturelikely contaminated, no speciation. Assessment: ESRD on HD, UTI, bilateral hydronephrosis, pyelonephritis, pneumonia Recommendations: Agree with empiric broad-spectrum IV antibiotics. Can repeat UA, though likely will be inaccurate as he has been on abx. Patient will ultimately need cystoscopy, bilateral stent removal, bilateral retrograde pyelography once his suspected infection has cleared. His primary urologist is Dr. Messer. He is scheduled for cystoscopy with bilateral stent exchange with Dr. Burr at [facility] on 12/23/23 at 1pm * Donna Traylor RN - 12/10/2023 1:07 PM CDT Problem: Reduced risk for falls/injury Goal: Reduced Risk for Falls/Injury Outcome: Met This Shift Goal: Reduced Risk of Confusion (Acute vs Chronic) Outcome: Met This Shift Goal: Reduced Risk of Symptomatic Depression Outcome: Met This Shift Goal: Reduced Risk of Altered Elimination Outcome: Met This Shift Goal: Reduced Risk of Dizziness/Vertigo/Balance Outcome: Met This Shift Goal: Reduced Risk of Polypharmacy Outcome: Met This Shift Problem: Discharge Planning Goal: Knowledge of discharge instructions Outcome: Progressing Problem: Pain control/comfort Goal: Promote pain control/comfort Outcome: Progressing Problem: Skin integrity, Impaired-wound Goal: Absence of new skin breakdown Outcome: Met This Shift Goal: Evidence of wound healing Outcome: Completed Problem: Skin integrity, Impaired-pressure injury/ulcer Goal: Absence of new skin breakdown Outcome: Met This Shift Goal: Evidence of pressure injury/ulcer healing Outcome: Completed Problem: Skin integrity, at risk Goal: Absence of new skin breakdown Outcome: Met This Shift Problem: Moisture associated skin impairment Goal: Reduce moisture exposure Outcome: Met This Shift Goal: Evidence of wound healing Outcome: Completed Goal: Evidence of pressure injury/ulcer healing Outcome: Completed Goal: Absence of new skin breakdown Outcome: Met This Shift * Adele Hernández - 12/10/2023 11:40 AM CDT CM Product Scientist delivered subsequent IMM. Signed copy is in the chart. * Renee Price RN - 12/10/2023 11:39 AM CDT 12/10/23 1115 Interdisciplinary Group Conference Team Members Present Physician;Case/Care management;Nursing;Pharmacy Physician present for group conference Taj Pedro Pablo Patient Current Status Paient current status Inpatient Barriers to Discharge Inpatient Review Barriers to Discharge Inpatient Other (Comment) Other follow up (Comment) elevated WBC, broadened abx, culture pend, abd pain, here thru weekend Patient expects to be discharged to Patient expects to be discharged to: Home or Self care no new needs 11:00 CM sent doc halo to [facility] asking for recs today. * Alan Suarez, Jaky - 12/10/2023 9:08 AM CDT Vancomycin Pharmacy to Dose Day #1 Ordering Provider: Pedro Pablo (Hospitalist) Indication: infection Ht/Wt: 6', 63.4 kg Initial drug level ordered: 12/10 with AM labs Date WBC SCr CrCl Tmax Level 12/09 20.74 4.26 HD 98.8 Other Antibiotics: - cefepime - ceftriaxone (dc'd) Cultures/Tests: - Urine (12/08): In process A/P: 68 YOM with PMH including ESRD on HD, ordered vancomycin pharmacy to dose for the indication of infection. Considering indication, as well as patient age, weight, and renal function, will order vancomycin 1250 mg x 1 dose . Will order a random level to be obtained 12/10 with morning labs. Will continue to monitor. * Taj Chamorro MD - 12/10/2023 8:55 AM CDT Images from the original note were not included. Hospitalist Daily Progress Note Subjective No acute events overnight. Patient seen and evaluated this morning at bedside while undergoing HD. Still complaining of significant lower abdominal pain. He denies any fevers or chills. Overall not very cooperative to questions due to primary complaints of pain. Objective Filed Vitals: 12/10/23 1130 12/10/23 1145 12/10/23 1158 12/10/23 1210 BP: (!) 152/75 103/69 99/68 108/67 Pulse: (!) 140 (!) 129 (!) 130 (!) 130 Resp: 16 Temp: 98.5 ??F (36.9 ??C) TempSrc: Oral SpO2: Weight: Height: Physical Exam Constitutional: General: He is not in acute distress. Appearance: Normal appearance. Cardiovascular: Rate and Rhythm: Normal rate and regular rhythm. Heart sounds: No murmur heard. No gallop. Pulmonary: Effort: Pulmonary effort is normal. Breath sounds: Normal breath sounds. Abdominal: General: Abdomen is flat. Bowel sounds are normal. There is no distension. Palpations: Abdomen is soft. Tenderness: There is abdominal tenderness. There is guarding. Skin: General: Skin is warm and dry. Neurological: General: No focal deficit present. Mental Status: He is alert and oriented to person, place, and time. Intake/Output 24H Total: Intake/Output Summary (Last 24 hours) at 12/10/2023 1509 Last data filed at 12/10/2023 1210 Gross per 24 hour Intake 180 ml Output 2205 ml Net -202 ml Medication azithromycin 500 mg Oral Daily cefepime 1 g Intravenous Q24H heparin (porcine) 5,000 Units Subcutaneous 2 times per day melatonin 3 mg Oral Nightly at bedtime vancomycin pharmacy to dose Intravenous See Admin Instructions PRN Meds: acetaminophen, albuterol sulfate HFA, calcium carbonate, HYDROcodone- acetaminophen, HYDROmorphone, influenza, naLOXone, ondansetron, polyethylene glycol, Senna Labs: Recent Labs Lab 12/08/23 0857 12/09/2344812/10/23 0542 NA 129* 132* 131* K 3.9 3.8 3.6 CL 91* 98 96* CO2 25.8 27.4 27.1 AGAP 12.2* 6.6 7.9 BUN 34* 19* 29* CR 4.69* 3.14* 4.26* BUNCREATININ 7.2 6.1 6.8 GLU 100* 126* 99 CA 9.1 9.1 9.2 MAGNESIUM -- 2.3 -- Recent Labs Lab 12/08/23 0857 12/09/2344812/10/23 042 WBC 24.08* 19.51* 20.74* RBC 3.52* 3.46* 3.25* HGB 11.0* 10.7* 10.1* HCT 31.5* 31.5* 29.6* MCV 89.5 91.0 91.1 MCH 31.3* 30.9 31.1* MCHC 34.9 34.0 34.1 PLT 460* 380 385 RDW 13.4 13.7 14.1 MPV 9.9 10.0 10.5 Recent Labs Lab 12/08/23 08 AST 20 ALT 12* No results for input(s): INR, PTT in the last 168 hours. Invalid input(s): ABG arterial blood gases Recent Labs Lab 12/08/23 0857 TROP 4 No results for input(s): PH, PCO2, PO2, [id number], BICARBWB, BASEDEFICIT, BASEEXCESS in the last 168 hours. Imaging: Radiology Results (Last 48 hours) None Assessment/Plan: Pyelonephritis Sepsis, improved Pyelonephritis Presented with leukocytosis (WBC 24), tachycardia Source: pyelonephritis, PNA CT A/P shows moderate bilateral renal edema, perinephric stranding, renal pelvis and ureteral wall thickening and urinary bladder thickening. Mild bilateral hydronephrosis. Lactic acid 1.0, Troponin wnl Blood culture deferred in absence of severe sepsis and nationwide tube shortage Ceftriaxone stopped. Will change antibiotics to vancomycin and cefepime in light of worsening leukocytosis and persistent severe suprapubic pain Urology consulted: no current plan for intervention. Plan to treat pyelo & will ultimately needcystoscopy bilateral stent removal bilateral retrograde pyelography once his infection has cleared UA & Ucx pending. Note were not able to be obtained until well after IV abx were started. Urineculture with polymicrobial growth concerning for contamination Repeat urine culture today in light of potential contaminated prior culture Patient is scheduled for cystoscopy with bilateral stent exchange with Dr. Burr at [facility] on 12/22 at 1 PM. Will tentatively plan to continue patient on antibiotics until that time Pneumonia CT A/P shows mild opacities in the right lower lobe and minimal opacities in the left lower lobe suggesting infiltrate and subsegmental atelectasis. Denies cough, fever, afebrile PCT ordered Suspect CAP Stopped IV ceftriaxone as above, continue azithromycin Titrate supplemental O2 to maintain saturations > 90% IS and Acapella Chronic Hyponatremia Na 129 on admission, down to 127 in 03/2020 Also endorses poor PO intake last 2-3 weeks Hold HCTZ Monitor ESRD HD on ; last dialyzed on Wednesday Nephrology consulted for HD, appreciate recommendations Avoid nephrotoxic agents Monitor renal function AOCD Hgb 11.0, baseline ~10-11 No obvious signs of bleeding Monitor H&H and transfuse for Hgb < 7 Hypertension BP stable Reports not taking amlodipine Currently normotensive Monitor and adjust as clinically warranted SDOH: Reviewed, none identified at this time -DVT prophylaxis: Heparin SQ -Code Status: Full Code Taj Chamorro MD 12/10/2023 * Enrique Jimenez MD - 12/10/2023 6:00 AM CDT Man Jeanie Matthews is a 68-year-old male patient. Reason for Follow Up: ESRD on HD Subjective: Mr. Matthews is doing alright except for the abdominal pain. No cough, fever, CP, SOB, nausea He received HD this am Current Facility-Administered Medications Medication Dose Route Frequency Provider Last Rate Last Admin acetaminophen (TYLENOL) tablet 650 mg 650 mg Oral Q4H PRN Chula Martinez NP 650 mg at 12/08/23 2111 albuterol sulfate HFA 108 (90 Base) MCG/ACT inhaler 2 puff 2 puff Inhalation Q4H PRN Chula Martinez NP azithromycin (ZITHROMAX) tablet 500 mg 500 mg Oral Daily Chula Martinez NP 500 mg at 12/10/23 0811 calcium carbonate (TUMS) chewable tablet 500 mg 500 mg Oral Daily PRN Cristian Min MD 500 mg at 12/09/23 0212 ceFEPIme (MAXIPIME) 1 g in sodium chloride 0.9 % 50 mL IVPB 1 g Intravenous Q24H Taj Chamorro MD heparin (porcine) injection 5,000 Units 5,000 Units Subcutaneous 2 times per day Chula Martinez NP 5,000 Units at 12/10/23 0806 HYDROcodone-acetaminophen (NORCO) 5-325 MG tablet 1 tablet 1 tablet Oral Q4H PRN Chula Martinez NP 1 tablet at 12/10/23 1321 HYDROmorphone (DILAUDID) injection 0.2 mg 0.2 mg Intravenous Q2H PRN Taj Chamorro MD 0.2 mg at 12/10/23 1241 influenza vaccine (FLUZONE) injection 0.5 mL 0.5 mL Intramuscular Prior to discharge Taj Quijano MD melatonin tablet 3 mg 3 mg Oral Nightly at bedtime Cristian Min MD 3 mg at 12/09/23 2019 naLOXone (NARCAN) injection 0.4 mg 0.4 mg Intravenous PRN Chula Martinez NP ondansetron (ZOFRAN) injection 4 mg 4 mg Intravenous Q8H PRN Chula Martinez NP polyethylene glycol (GLYCOLAX) packet 17 g 17 g Oral Daily PRN Chula Martinez NP Senna (SENOKOT) 8.6 MG tablet 8.6 mg 8.6 mg Oral Daily PRN Chula Martinez NP vancomycin (VANCOCIN) 1,250 mg in sodium chloride 0.9 % 250 mL IVPB 1,250 mg Intravenous Once Taj Chamorro MD 175 mL/hr at 12/10/23 1317 1,250 mg at 12/10/23 1317 vancomycin pharmacy to dose placeholder Intravenous See Admin Instructions Taj Chamorro MD Review of patient's allergies indicates: Allergen Reactions Lisinopril Anaphylaxis and Angioedema Denies allergy 12/08/23 Principal Problem: Pyelonephritis SNOMED CT(R): PYELONEPHRITIS Social History Tobacco Use Smoking status: Every Day Current packs/day: 0.50 Average packs/day: 0.5 packs/day for 47.3 years (23.7 ttl pk-yrs) Types: Cigarettes Start date: 08/05/1976 Smokeless tobacco: Never Substance Use Topics Alcohol use: Yes Alcohol/week: 8.3 standard drinks of alcohol Types: 5 Shots of liquor per week Objective: Filed Vitals: 12/10/23 1130 12/10/23 1145 12/10/23 1158 12/10/23 1210 BP: (!) 152/75 103/69 99/68 108/67 Pulse: (!) 140 (!) 129 (!) 130 (!) 130 Resp: 16 Temp: 98.5 ??F (36.9 ??C) TempSrc: Oral SpO2: Weight: Height: Physical Exam: -GENERAL: No acute distress, breathing comfortably on room air. -EYES: Extraocular movements intact -LUNG: Clear to auscultation bilaterally -CVS: Regular rate rhythm -ABDOMEN: Soft, nondistended, tender to palpation mainly in the lower abdomen; but slightly better. -Musculoskeletal / EXT: no lower Ext edema. -NEURO: AAOx3 LABs I reviewed labs Recent Labs Lab 12/08/23 0857 10/12/22 44812/10/23 0542 NA 129* 132* 131* K 3.9 3.8 3.6 CL 91* 98 96* CO2 25.8 27.4 27.1 AGAP 12.2* 6.6 7.9 BUN 34* 19* 29* CR 4.69* 3.14* 4.26* BUNCREATININ 7.2 6.1 6.8 GLU 100* 126* 99 CA 9.1 9.1 9.2 MAGNESIUM -- 2.3 -- Recent Labs Lab 12/08/23 0857 12/09/2344812/10/23 042 WBC 24.08* 19.51* 20.74* RBC 3.52* 3.46* 3.25* HGB 11.0* 10.7* 10.1* HCT 31.5* 31.5* 29.6* MCV 89.5 91.0 91.1 MCH 31.3* 30.9 31.1* MCHC 34.9 34.0 34.1 PLT 460* 380 385 RDW 13.4 13.7 14.1 MPV 9.9 10.0 10.5 Assessment/Plan: Mr. Matthews a 68 years old male with past medical history of end-stage renal disease on chronic hemodialysis Wednesday, hypertension, OACD. -He presented to the ED today with 2 to 3 weeks of lower abdominal pain with diarrhea, fatigue. --- End-stage renal disease on chronic hemodialysis MWF; last reported outpatient dialysis was Wednesday. I reviewed chest imaging film showing some opacity on the right more than the left lung base with some effusion. S/p HD Wednesday around 1L. Plan for HD today. On oral fluids restriction; hyponatremia improving -Imaging showed lavern ureter stents, bilateral renal edema, perinephric stranding with ureteral and urinary bladder wall thickening which consist of infection/pyelonephritis with mild bilateral hydronephrosis. On Abx; primary team adjusting Abx per Cx. Urology on board and will need cystoscopy and stents exchange when infection is cleared. --- Hypertension; normotensive; not on meds --- Anemia of CKD with hemoglobin at 10.1 ENRIQUE JIMENEZ MD 12/10/2023 * Enrique Jimenez MD - 12/09/2023 3:28 PM CDT Man Jeanie Matthews is a 68-year-old male patient. Reason for Follow Up: ESRD on HD Subjective: Mr. Matthews still with lots of lower abdominal pain and dysuria. No cough, fever, CP, SOB, abdominal pain, vomiting. Current Facility-Administered Medications Medication Dose Route Frequency Provider Last Rate Last Admin acetaminophen (TYLENOL) tablet 650 mg 650 mg Oral Q4H PRN Chula Martinez NP 650 mg at 12/08/23 2111 albuterol sulfate HFA 108 (90 Base) MCG/ACT inhaler 2 puff 2 puff Inhalation Q4H PRN Chula Martinez NP azithromycin (ZITHROMAX) tablet 500 mg 500 mg Oral Daily Chula Martinez NP 500 mg at 12/09/23 0935 calcium carbonate (TUMS) chewable tablet 500 mg 500 mg Oral Daily PRN Cristian Min MD 500 mg at 12/09/23 0212 cefTRIAXone (ROCEPHIN) 1 g in sodium chloride 0.9 % 50 mL IVPB 1 g Intravenous Q24H Chula Martinez NP Stopped at 12/09/23 1026 heparin (porcine) injection 5,000 Units 5,000 Units Subcutaneous 2 times per day Chula Martinez NP 5,000 Units at 12/09/23 0936 HYDROcodone-acetaminophen (NORCO) 5-325 MG tablet 1 tablet 1 tablet Oral Q4H PRN Chula Martinez NP 1 tablet at 12/09/23 1026 influenza vaccine (FLUZONE) injection 0.5 mL 0.5 mL Intramuscular Prior to discharge Taj Quijano MD melatonin tablet 3 mg 3 mg Oral Nightly at bedtime Cristian Min MD 3 mg at 12/09/23 0212 naLOXone (NARCAN) injection 0.4 mg 0.4 mg Intravenous PRN Chula Martinez NP ondansetron (ZOFRAN) injection 4 mg 4 mg Intravenous Q8H PRN Chula Martinez NP polyethylene glycol (GLYCOLAX) packet 17 g 17 g Oral Daily PRN Chula Martinez NP Senna (SENOKOT) 8.6 MG tablet 8.6 mg 8.6 mg Oral Daily PRN Chula Martinez NP Allergies Allergen Reactions Lisinopril Anaphylaxis and Angioedema Denies allergy 12/08/23 Principal Problem: Pyelonephritis SNOMED CT(R): PYELONEPHRITIS Social History Tobacco Use Smoking status: Every Day Current packs/day: 0.50 Average packs/day: 0.5 packs/day for 47.3 years (23.7 ttl pk-yrs) Types: Cigarettes Start date: 08/05/1976 Smokeless tobacco: Never Substance Use Topics Alcohol use: Yes Alcohol/week: 8.3 standard drinks of alcohol Types: 5 Shots of liquor per week Objective: Filed Vitals: 12/09/23 0018 12/09/23 0418 12/09/23 0758 12/09/23 1124 BP: 103/75 110/75 132/85 129/84 Pulse: 90 88 94 (!) 105 Resp: 18 18 16 16 Temp: 98.5 ??F (36.9 ??C) 97.7 ??F (36.5 ??C) 98.4 ??F (36.9 ??C) 97.5 ??F (36.4 ??C) TempSrc: Oral Oral Oral Oral SpO2: 97% 97% 99% 93% Weight: 61.2 kg (134 lb 14.7 oz) Height: Physical Exam: -GENERAL: No acute distress, breathing comfortably on room air. -EYES: Extraocular movements intact -LUNG: Clear to auscultation bilaterally, No wheezes, No crackles -CVS: Regular rate rhythm, S1 and S2 normal -ABDOMEN: Soft, nondistended, Nontender -Musculoskeletal / EXT: no lower Ext edema. -NEURO: AAOx3 LABs I reviewed labs Recent Labs Lab 12/08/23 0857 12/09/23448 NA 129* 132* K 3.9 3.8 CL 91* 98 CO2 25.8 27.4 AGAP 12.2* 6.6 BUN 34* 19* CR 4.69* 3.14* BUNCREATININ 7.2 6.1 GLU 100* 126* CA 9.1 9.1 MAGNESIUM -- 2.3 Recent Labs Lab 12/08/23 0857 12/09/23448 WBC 24.08* 19.51* RBC 3.52* 3.46* HGB 11.0* 10.7* HCT 31.5* 31.5* MCV 89.5 91.0 MCH 31.3* 30.9 MCHC 34.9 34.0 PLT 460* 380 RDW 13.4 13.7 MPV 9.9 10.0 Assessment/Plan: Mr. Matthews a 68 years old male with past medical history of end-stage renal disease on chronic hemodialysis Wednesday, hypertension, OACD. -He presented to the ED today with 2 to 3 weeks of lower abdominal pain with diarrhea, fatigue. --- End-stage renal disease on chronic hemodialysis MWF; last reported outpatient dialysis was Wednesday. I reviewed chest imaging film showing some opacity on the right more than the left lung base with some effusion. S/p HD yesterday around 1L. Plan for HD tomorrow. Stopped home bicarb. On oral fluids restriction; hyponatremia improving -Imaging showed lavern ureter stents, bilateral renal edema, perinephric stranding with ureteral and urinary bladder wall thickening which consist of infection/pyelonephritis with mild bilateral hydronephrosis. On Abx; primary team adjusting Abx per Cx. Urology on board and will need cystoscopy and stents exchange when infection is cleared. --- Hypertension; normotensive; not on meds --- Anemia of CKD with hemoglobin at 10.7. ENRIQUE JIMENEZ MD 12/09/2023 * Julee Bettencourt OTR - 12/09/2023 2:57 PM CDT 12/09/23 1400 Therapy Visit Reason for admission Pyelonephritis Ordering Provider JOSE LUIS Martinez Acute Inpatient OT Time Calculation OT Start Time 1200 Subjective Subjective Rm 521. OT orders received. EMR reviewed. Spoke with PT who reports the pt is refusing and stomach is hurting. Will hold and follow up at a later time/date * Renee Price RN - 12/09/2023 12:08 PM CDT 12/09/23 1115 Interdisciplinary Group Conference Team Members Present Physician;Case/Care management;Nursing;Pharmacy Physician present for group conference Taj Chamorro Patient Current Status Paient current status Inpatient Barriers to Discharge Inpatient Review Barriers to Discharge Inpatient Other (Comment) Other follow up (Comment) urology cons, urine culture pend, IV abx, Dialysis Patient expects to be discharged to Patient expects to be discharged to: Home or Self care no new needs 12:30 CM received call from nurse at Dr Spain's office stating Dr Spain wants to speak to thehospitalist regarding this patient and his prior treatment plan, MD's direct number is [phone]. CM sent doc halo to Dr Taj Salgado with the above information. The nurse also requests that CM call her when the patient is discharging so that they can be sure the patient has a follow up appointment made, her return number is [phone]. * Dalila Ordoñez, PT - 12/09/2023 11:15 AM CDT 12/09/23 1100 Therapy Visit Ordering Provider JOSE LUIS Martinez Subjective Rm 521: PT orders received and EMR reviewed. RN states appropriate for therapy. Pt refuses to participate in therapy at this time, stating that his stomach hurts too much to sit up or attempt to walk. Acute Inpatient PT Time Calculation PT Start Time 1110 * Herlinda Paez NP - 12/09/2023 9:42 AM CDT Images from the original note were not included. Subjective: NAEO; patient reports feeling sleepy, wants to be left alone Allergies Allergen Reactions Lisinopril Anaphylaxis and Angioedema Denies allergy 12/08/23 Objective: Filed Vitals: 12/08/23 2046 12/09/23 0018 12/09/23 0418 12/09/23 0758 BP: 110/77 103/75 110/75 132/85 Pulse: (!) 117 90 88 94 Resp: 18 18 16 Temp: 98.4 ??F (36.9 ??C) 98.5 ??F (36.9 ??C) 97.7 ??F (36.5 ??C) 98.4 ??F (36.9 ??C) TempSrc: Oral Oral Oral Oral SpO2: 99% 97% 97% 99% Weight: 61 kg (134 lb 7.7 oz) 61.2 kg (134 lb 14.7 oz) Height: I/O last 3 completed shifts: In: 110 [P.O.:60; IV Piggyback:50] Out: 1050 PHYSICAL EXAM General: Alert, cooperative, no distress, appears stated age Resp: EWOB, symmetric chest rise CV: Regular rate and rhythm, warm/dry extremities Abdomen: Soft, non-tender, non-distended : Purewick with dark UOP Extremities:Extremities nl, atraumatic, no cyanosis or edema Pulses: 2+ and symmetric all extremities Psych: Affect and behavior normal Labs: Recent Labs Lab 12/08/23 0857 12/09/23448 WBC 24.08* 19.51* RBC 3.52* 3.46* HGB 11.0* 10.7* HCT 31.5* 31.5* MCV 89.5 91.0 MCH 31.3* 30.9 MCHC 34.9 34.0 PLT 460* 380 RDW 13.4 13.7 MPV 9.9 10.0 NEUC 21.91* 17.17* LYMC 1.20 0.39* MONOC 0.96* 1.95* DTYPE MANUAL DIFFERENTIAL MANUAL DIFFERENTIAL Recent Labs Lab 12/08/23 0857 12/09/23448 NA 129* 132* K 3.9 3.8 CL 91* 98 CO2 25.8 27.4 AGAP 12.2* 6.6 BUN 34* 19* CR 4.69* 3.14* BUNCREATININ 7.2 6.1 GLU 100* 126* CA 9.1 9.1 TP 7.8 -- ALB 2.0* -- TBIL 0.6 -- ALKP 111 -- AST 20 -- ALT 12* -- No results for input(s): APTT, INR, PTT in the last 168 hours. Assessment: ESRD on HD, UTI, bilateral hydronephrosis, pyelonephritis, pneumonia Recommendations: Agree with empiric broad-spectrum IV antibiotics. Patient will ultimately need cystoscopy bilateralstent removal bilateral retrograde pyelography once his infection has cleared. His primary urologist is Dr. Mseser. Urine culture is pending. Herlinda Paez APRN * Renee Price RN - 12/09/2023 9:17 AM CDT 12/09/23 0840 Referral Data Source of Information Patient Patient Information Primary Caregiver Self Current living Situation Other (Comment) (sister Kaley) Type of Residence Private residence Support System Immediate family Are you employed? Not Employed Baseline ADL's Functional Status Independent Active DME Cane;Front wheel walker Behavior Oriented;Cooperative Communication Talks;Understands speaking;Understands Danish DC screening tool This is a screening tool it does not take the place of a physical or occupational therapy evaluation. The screening is to screen the patient for what services and destination would be beneficial for patient for next level of care Conversation with the patient/family Will the patient be returning to prior living situation with no new identified needs? Yes Based on the screening the DC plan for consideration is: Patient expects to be discharged to: Home or Self care no new needs NCM performed bedside interview, verified patient's name and : Support: sister Home: lives with his sister Ambulation: Reports independent prior to admission. DME products: cane, 2ww DIALYSIS: attends [employer] [facility] chair time 10 am, goes by bus through insurance. CM phoned Kenyatta Leiva, dialysis liaison and informed of patient's information and admission. Medical Devices: ADLs: Reports independent prior to admission. Transport Home: family/friend Skin/Bladder/Bowel: A/O: Patient is alert, oriented to person, place, time, and situation Communication: Patient can communicate without deficits. Home Health: Occupation: Pharmacy: [facility] Financial Concerns: No financial concerns reported PCP/Insurance Plan: Selvin Spain/Gavin Discharge needs: RNCM will follow case daily and will continuously evaluate discharge needs based on recommendations and treatment course. * Taj Chamorro MD - 12/09/2023 9:08 AM CDT Images from the original note were not included. Hospitalist Daily Progress Note Subjective No acute events overnight. Patient seen and evaluated this morning at bedside. Patient reporting persistent significant lower abdominal pain. No other complaints reported by patient. Spoke with patient's primary care physician via phone at PCPs request. He expresses that patient has had complex andinconsistent history due to moving from the area down to [place] and then back. He reports concernthat his follow-up has been poor and suspects that the current stents in place have been there far too long. He is concerned that they may be colonized. I discussed his concerns with our urologist. Objective Filed Vitals: 12/08/236 12/09/23 0018 12/09/23 0418 12/09/23 0758 BP: 110/77 103/75 110/75 132/85 Pulse: (!) 117 90 88 94 Resp: 18 18 18 16 Temp: 98.4 ??F (36.9 ??C) 98.5 ??F (36.9 ??C) 97.7 ??F (36.5 ??C) 98.4 ??F (36.9 ??C) TempSrc: Oral Oral Oral Oral SpO2: 99% 97% 97% 99% Weight: 61 kg (134 lb 7.7 oz) 61.2 kg (134 lb 14.7 oz) Height: Physical Exam Intake/Output 24H Total: Intake/Output Summary (Last 24 hours) at 12/09/2023 09 Last data filed at 12/09/2023 0214 Gross per 24 hour Intake 110 ml Output 1050 ml Net -940 ml Medication azithromycin 500 mg Oral Daily cefTRIAXone 1 g Intravenous Q24H heparin (porcine) 5,000 Units Subcutaneous 2 times per day melatonin 3 mg Oral Nightly at bedtime PRN Meds: acetaminophen, albuterol sulfate HFA, calcium carbonate, HYDROcodone- acetaminophen, influenza, naLOXone, ondansetron, polyethylene glycol, Senna Labs: Recent Labs Lab 12/08/2357 12/09/23448 NA 129* 132* K 3.9 3.8 CL 91* 98 CO2 25.8 27.4 AGAP 12.2* 6.6 BUN 34* 19* CR 4.69* 3.14* BUNCREATININ 7.2 6.1 GLU 100* 126* CA 9.1 9.1 MAGNESIUM -- 2.3 Recent Labs Lab 12/08/23 0857 12/09/23448 WBC 24.08* 19.51* RBC 3.52* 3.46* HGB 11.0* 10.7* HCT 31.5* 31.5* MCV 89.5 91.0 MCH 31.3* 30.9 MCHC 34.9 34.0 PLT 460* 380 RDW 13.4 13.7 MPV 9.9 10.0 Recent Labs Lab 12/08/23856 AST 20 ALT 12* No results for input(s): INR, PTT in the last 168 hours. Invalid input(s): ABG arterial blood gases Recent Labs Lab 12/08/23 0857 TROP 4 No results for input(s): PH, PCO2, PO2, [id number], [id number], BASEDEFICIT, BASEEXCESS in the last 168 hours. Imaging: Radiology Results (Last 48 hours) 12/08/[address] ABD+PEL WO CON Final result Impression: IMPRESSION: 1. Moderate bilateral renal edema, perinephric stranding, renal pelvis and ureteral wall thickening, and urinary bladder wall thickening. Findings could be consistent with urinary tract infection and certainly pyelonephritis is not excluded without intravenous contrast. Bilateral ureteral stents. Mild bilateral hydronephrosis. Recommend correlation with urinalysis. 2. Mild opacities in the right lower lobe and minimal opacities in the left lower lobe suggesting infiltrate and subsegmental atelectasis. Very small bilateral pleural effusions. 3. Dependent density in the gallbladder suggesting noncalcified stones and/or sludge. Minimal distention of the superior common bile duct. 4. No apparent bowel obstruction. Ordered By: AMAN LOCKWOOD Interpreted By: Zeb Gutierrez, 12/08/2023 11:02 AM Assessment/Plan: Pyelonephritis Sepsis, improved Pyelonephritis Presented with leukocytosis (WBC 24), tachycardia Source: pyelonephritis, PNA CT A/P shows moderate bilateral renal edema, perinephric stranding, renal pelvis and ureteral wall thickening and urinary bladder thickening. Mild bilateral hydronephrosis. Lactic acid 1.0 Troponin wnl Blood culture deferred in absence of severe sepsis and nationwide tube shortage IV Abx, low threshold to add MRSA coverage with apparent prior procedures Urology consulted: no current plan for intervention. Plan to treat pyelo & will ultimately needcystoscopy bilateral stent removal bilateral retrograde pyelography once his infection has cleared UA & Ucx pending. Note were not able to be obtained until well after IV abx were started Pneumonia CT A/P shows mild opacities in the right lower lobe and minimal opacities in the left lower lobe suggesting infiltrate and subsegmental atelectasis. Denies cough, fever, afebrile PCT ordered Suspect CAP Continue IV ceftriaxone, add Azithromycin, monitor for toxicity Titrate supplemental O2 to maintain saturations > 90% IS and Acapella Chronic Hyponatremia Na 129 on admission, down to 127 in 03/2020 Also endorses poor PO intake last 2-3 weeks Hold HCTZ Monitor ESRD HD on ; last dialyzed on Wednesday Nephrology consulted for HD, appreciate recommendations Avoid nephrotoxic agents Monitor renal function AOCD Hgb 11.0, baseline ~10-11 No obvious signs of bleeding Monitor H&H and transfuse for Hgb < 7 Hypertension BP stable Reports not taking amlodipine Currently normotensive Monitor and adjust as clinically warranted SDOH: Reviewed, none identified at this time -DVT prophylaxis: Heparin SQ -Code Status: Full Code Taj Chamorro MD 12/09/2023 * Sunshine Herron RN - 12/09/2023 3:47 AM CDT Problem: Reduced risk for falls/injury Goal: Reduced Risk for Falls/Injury Outcome: Progressing Goal: Reduced Risk of Confusion (Acute vs Chronic) Outcome: Progressing Goal: Reduced Risk of Symptomatic Depression Outcome: Progressing Goal: Reduced Risk of Altered Elimination Outcome: Progressing Goal: Reduced Risk of Dizziness/Vertigo/Balance Outcome: Progressing Goal: Reduced Risk of Polypharmacy Outcome: Progressing Problem: Discharge Planning Goal: Knowledge of discharge instructions Outcome: Progressing Problem: Pain control/comfort Goal: Promote pain control/comfort Outcome: Progressing Problem: Skin integrity, Impaired-wound Goal: Absence of new skin breakdown Outcome: Progressing Goal: Evidence of wound healing Outcome: Progressing Problem: Skin integrity, Impaired-pressure injury/ulcer Goal: Absence of new skin breakdown Outcome: Progressing Goal: Evidence of pressure injury/ulcer healing Outcome: Progressing Problem: Skin integrity, at risk Goal: Absence of new skin breakdown Outcome: Progressing Problem: Moisture associated skin impairment Goal: Reduce moisture exposure Outcome: Progressing Goal: Evidence of wound healing Outcome: Progressing Goal: Evidence of pressure injury/ulcer healing Outcome: Progressing Goal: Absence of new skin breakdown Outcome: Progressing * Dm Day RN - 12/08/2023 8:17 PM CDTSummary: dialysis note 12/08/232001 Post Treatment Note Post Treatment Note Patient alert and denies cp, sob, needs. No acute issues noted. Patient met time/uf goals and tolerated tx well. Patient's HD cvc ran reversed without issues. Vital Signs Temp 98.1 ??F (36.7 ??C) Temp src Oral Pulse (!) 107 Heart Rate Source Monitor Resp 20 BP 110/75 MAP Calculated 87 MM HG BP Location Right arm BP Method Automatic Patient Position Lying Cuff size Adult Regular Post Treatment Weight Post-Treatment Weight (kg) 66.5 kg (146 lb 9.7 oz) Additonal Post Treatment Information Time Treatment Ended 1953 Dialyzer Cleared Good Blood Processed 72.9 Net UF removed 1050 Post Treatment Access Catheter Locking Solution heparin 1:1000 Catheter Locking Volume: Arterial 2.1 ml Catheter Locking Volume: Venous 2.2 ml * Enrique Jimenez MD - 12/08/2023 3:07 PM CDT Dialysis note Patient was seen and examined during HD. documented in this encounter H&P Notes * Chula Martinez NP - 12/08/2023 2:16 PM CDT HISTORY AND PHYSICAL PRIMARY CARE PROVIDER: Steve Courtney MD Chief Complaint: lower abdominal pain HPI: Man Jeanie Matthews is a 68-year-old male with a past medical history of ESRD on HD MWF (missed today), HTN, AOCD, chronic hyponatremia who presented to the ED with c/o lower abdominal pain x 2-3 weeks that worsened today prompting his visit to the ED. In the ED, imaging was concerning for pyelonephritis and mild bilateral hydronephrosis. He was started on IV abx and urology was consulted. He endorses continued lower abdominal pain, constant, currently rated 10/10. He denies cough, fever/chills,N/V. Does endorse diarrhea x 2 weeks. Reports decreased PO intake due to not feeling well/abdominalpain. Lives at home with sister. He uses both a cane and walker to ambulate. Denies CP or SOB. He is resting comfortably on RA. History obtained via chart review, discussion with patient. No family is present at the bedside. Past Medical History: Diagnosis Date Hypertension Renal disorder Past Surgical History: Procedure Laterality Date HC STENT RENAL Bilateral 2021 Social History Socioeconomic History Marital status: Spouse name: Not on file Number of children: Not on file Years of education: Not on file Highest education level: Not on file Occupational History Not on file Tobacco Use Smoking status: Every Day Current packs/day: 0.50 Average packs/day: 0.5 packs/day for 47.3 years (23.7 ttl pk-yrs) Types: Cigarettes Start date: 08/05/1976 Smokeless tobacco: Never Vaping Use Vaping status: Never Used Substance and Sexual Activity Alcohol use: Yes Alcohol/week: 8.3 standard drinks of alcohol Types: 5 Shots of liquor per week Drug use: Never Sexual activity: Not Currently Other Topics Concern Not on file Social History Narrative Not on file Social Determinants of Health Financial Resource Strain: Not At Risk (06/02/2023) Received from [facility] Financial Resource Needs Financial Resource Strain: 1 Food Insecurity: Not on file (04/30/2023) Transportation Needs: Not At Risk (06/02/2023) Received from [facility] Transportation Needs Transportation Needs: 1 Physical Activity: Not on file Stress: Not on file Social Connections: Not on file Intimate Partner Violence: Not on file Housing Stability: Not At Risk (06/02/2023) Received from [facility] Housing Stability Source Housing Insecurity: 1 No family history on file. Prior to Admission medications Medication Sig Start Date End Date Taking? Authorizing Provider GLYCERIN, ADULT, [address] 1 suppository rectally daily. 08/09/23 Yes Default History Genericprovider traMADol (ULTRAM) 50 MG tablet Take 1 tablet (50 mg total) by mouth 2 (two) times daily as needed for Pain. 11/23/23 Yes Default History Genericprovider amLODIPine 10 MG tablet Take 1 tablet (10 mg total) by mouth daily. 03/08/20 Abel Lizarraga MD Cholecalciferol (VITAMIN D3) 50 MCG (2000 UT) Tab Take 1 tablet (2,000 Units total) by mouth daily.[facility] hydroCHLOROthiazide 12.5 MG tablet Take 1 tablet (12.5 mg total) by mouth every morning. 03/08/20 Abel Lizarraga MD multi vitamin/minerals tablet Take 1 tablet by mouth daily. [facility] I have reviewed current outpatient medications and reconciled them for inpatient admission. Appropriate medications to be continued. Inappropriate medications to be held for now. Allergies Allergen Reactions Lisinopril Anaphylaxis and Angioedema Denies allergy 12/08/23 ROS: A 10 point review of systems was taken and pertinent positives and negatives as per HPI. All othersnegative save as noted in HPI. PHYSICAL EXAM: No intake or output data in the 24 hours ending 12/08/23 1416 Patient Vitals for the past 24 hrs: BP Temp Temp src Pulse Resp SpO2 Height Weight 12/08/23 1300 114/78 -- -- (!) 101 18 95 % -- -- 12/08/23 0843 105/84 97.6 ??F (36.4 ??C) Oral (!) 118 14 97 % 1.829 m (6') 66.7 kg (147 lb 0.8 oz) GENERAL: no acute distress, thin, frail, chronically ill appearing male HEENT: mucous membranes moist RESPIRATORY: respirations even and unlabored, clear breath sounds, no wheezes, or crackles noted; on RA CARDIAC: regular rate and rhythm, no peripheral edema GI: lower abdomen tender to palpation (suprapubic), nondistended, bowel sounds present MUSC: ROM grossly intact NEURO: Alert, no gross deficit SKIN: No rashes, skin is warm and dry LYMPH: No obvious lymphadenopathy PSYCH: Alert, appropriate Labs: Recent Labs Lab 12/08/23 0857 WBC 24.08* RBC 3.52* HGB 11.0* HCT 31.5* MCV 89.5 MCH 31.3* MCHC 34.9 PLT 460* RDW 13.4 MPV 9.9 NEUC 21.91* LYMC 1.20 MONOC 0.96* DTYPE MANUAL DIFFERENTIAL Recent Labs Lab 12/08/23 0857 NA 129* K 3.9 CL 91* CO2 25.8 AGAP 12.2* BUN 34* CR 4.69* BUNCREATININ 7.2 GLU 100* CA 9.1 TP 7.8 ALB 2.0* TBIL 0.6 ALKP 111 AST 20 ALT 12* No results for input(s): CHOL, TRI, HDL, LDL, HGBA1C, TSH in the last 168 hours. No results for input(s): APTT, INR, PTT in the last 168 hours. Recent Labs Lab 12/08/23 0857 TROP 4 Recent Labs Lab 12/08/23 0933 LACTICACID 1.0 No results for input(s): PH, PCO2, PO2, V2MBRLMIJTFE, BICARBWB, BASEDEFICIT, BASEEXCESS in the last 168 hours. No results found for this or any previous visit. Diagnostic Review See full report for details CT ABD+PEL WO CON Result Date: 12/08/2023 [facility] [address] [place], [place] [address] IMAGINGSTUDIES: CT ABD+PEL WO CON DATE: 12/08/2023 10:32 AM HISTORY: flank pain, recent ureteral stents 68-year-old male. History of end- stage renal disease on hemodialysis. Lower abdominal discomfort increasing over the past several days. Patient reports recent placement of bilateral ureteral stents. A urinary catheter placed for urinary retention was removed approximately one week ago. Patient reportshe can urinate. COMPARISON: Chest portable 08/06/2023. Bilateral hips 05/31/2020. DISCUSSION: CT abdomen and pelvis without intravenous contrast. Coronal and sagittal reconstructions. No enteric contrast. Automated exposure control with radiation dose reduction techniques were used. CHEST: Mild infiltrate and subsegmental atelectasis in the right lower lobe and minimal infiltrate and subsegmental atelectasis in the left lower lobe. Very small bilateral pleural effusions. CARDIOVASCULAR: Heart size is normal. No pericardial effusion. No abdominal aortic aneurysm. Atherosclerotic calcification of the aorta, aortic branch arteries, iliac arteries, and femoral arteries. UPPER ABDOMEN: Dependent densities in the moderately distended gallbladder suggesting noncalcified gallstones and/or sludge. No appreciable gallbladder wall thickening to suggest acute cholecystitis. Minimal distention of the superior common bile duct up to 7 mm but tapering toward the ampulla. No calcifications within the common bile duct. No apparent acute abnormality of the unopacified liver, pancreas, spleen, and adrenalglands. GENITOURINARY: Limited evaluation for renal lesions given lack of intravenous contrast. No renal calcifications. Moderate bilateral renal edema and perinephric stranding. Probable mild bilateral hydronephrosis. Bilateral ureteral stents. Right ureteral stent with superior retention coil in the inferior renal pelvis and distal retention coil in the left urinary bladder. Left ureteral stentin the inferior renal pelvis or dilated proximal ureter with distal retention coil in the right urinary bladder. General edema/stranding and wall thickening in the bilateral renal pelvis and ureters.Mild fluid in the urinary bladder. Generalized urinary bladder wall thickening and most pronounced anteriorly of up to approximately 17 mm wall thickness. No bladder calcification. No appreciable urinary bladder lumen fluid hyperdensity/blood products. LYMPHATIC: No apparent pathologic adenopathy given limitations of noncontrast study. GASTROINTESTINAL: No apparent bowel obstruction. Evaluation for bowel inflammation is limited without intravenous contrast. No apparent free fluid in the abdomenor pelvis. MUSCULOSKELETAL: Multiple old healed posterior right rib fractures. Spinal degenerative changes most prominent at the facets of the mid to lower lumbar spine. Severe degenerative changes at the right hip with sclerotic and cystic changes of the acetabulum and femoral head and partial collapse of the femoral head cortex. Sclerotic changes of the left femoral head. 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 IMPRESSION: 1. Moderate bilateral renal edema, perinephric stranding, renal pelvis and ureteral wall thickening, and urinary bladder wall thickening. Findings could be consistent with urinary tract infection and certainly pyelonephritis is not excluded without intravenous contrast. Bilateral ureteral stents. Mild bilateral hydronephrosis. Recommend correlation with urinalysis. 2. Mild opacities in the right lower lobe and minimal opacities in the left lower lobe suggesting infiltrate and subsegmental atelectasis. Very small bilateral pleural effusions. 3. Dependent density in the gallbladder suggesting noncalcified stones and/or sludge. Minimal distention of the superior common bile duct. 4. No apparent bowel obstruction. Ordered By: AMAN LOCKWOOD Interpreted By: Zeb Gutierrez, 12/08/2023 11:02 AM ECG 12 lead Result Date: 12/08/[address] Test Date: 2023-12-08 Pat Name: SADI MATTHEWS Department: 41 Room: [id number] Gender: Male Advertisement Compositor: : 1955 Requested By: AMAN LOCKWOOD Order Number: [id number] Reading MD: Measurements Intervals [place] Rate: 106 P: 67 AL: 153 QRS: 9 QRSD: 71 T: 43 QT: 320 QTc: 425 Interpretive Statements SINUS TACHYCARDIA POSSIBLE LEFT ATRIAL ENLARGEMENT [-0.1mV P WAVE IN V1/V2] NONSPECIFIC T-WAVE ABNORMALITY ABNORMAL RHYTHM ECG Compared to ECG 08/06/2023 10:53:39 T-wave abnormality now present Sinus rhythm no longer present Results for orders placed or performed during the hospital encounter of 12/08/[address] [facility] [address] Test Date: 2023-12-08 Pat Name: SADI MATTHEWS Department: 41 Room: [id number] Gender: Male Advertisement Compositor: : 1955 Requested By: AMAN LOCKWOOD Order Number: [id number] Reading MD: Measurements Intervals [place] Rate: 106 P: 67 AL: 153 QRS: 9 QRSD: 71 T: 43 QT: 320 QTc: 425 Interpretive Statements SINUS TACHYCARDIA POSSIBLE LEFT ATRIAL ENLARGEMENT [-0.1mV P WAVE IN V1/V2] NONSPECIFIC T-WAVE ABNORMALITY ABNORMAL RHYTHM ECG Compared to ECG 08/06/2023 10:53:39 T-wave abnormality now present Sinus rhythm no longer present ASSESSMENT AND PLAN: Sepsis Presented with leukocytosis (WBC 24), tachycardia Source: pyelonephritis, PNA CT A/P shows moderate bilateral renal edema, perinephric stranding, renal pelvis and ureteral wall thickening and urinary bladder thickening. Mild bilateral hydronephrosis. Lactic acid 1.0 Troponin wnl Blood culture deferred in absence of severe sepsis and nationwide tube shortage IV Abx Hemodynamically stable, monitor vs, vasopressors not currently needed Monitor labs Pneumonia CT A/P shows mild opacities in the right lower lobe and minimal opacities in the left lower lobe suggesting infiltrate and subsegmental atelectasis. Denies cough, fever, afebrile PCT ordered Suspect CAP Continue IV ceftriaxone, add Azithromycin, monitor for toxicity Titrate supplemental O2 to maintain saturations > 90% IS and Acapella Chronic Hyponatremia Na 129 on admission, down to 127 in 03/2020 Also endorses poor PO intake last 2-3 weeks Hold HCTZ Monitor ESRD HD on MW; last dialyzed on Wednesday Nephrology consulted for HD, appreciate recommendations Avoid nephrotoxic agents Monitor renal function AOCD Hgb 11.0, baseline ~10-11 No obvious signs of bleeding Monitor H&H and transfuse for Hgb < 7 Hypertension BP stable Reports not taking amlodipine Currently normotensive Monitor and adjust as clinically warranted SDOH: Reviewed, none identified at this time -DVT prophylaxis: Heparin SQ -IVF: SL -Diet: Renal -Level of care: Inpatient telemetry -Anticipated disposition at discharge: Home when stable -PCP: Provider MD Roz CODE STATUS: FULL I have seen and examined the patient independently and anticipate patient will require >2 midnights. CHULA MARTINEZ NP 12/08/2023 2:16 PM Cosigned by Taj Chamorro MD at 12/09/2023 4:08 PM CDT Associated attestation - Taj Chamorro MD - 12/09/2023 4:08 PM CDT I, Taj Chamorro MD, have seen and examined the patient, and discussed the plan of care with the Advanced Provider. I reviewed their note and agree with the findings and plan of care, as above. General: . Awake, alert, No acute distress CV: RRR, no murmur noted Pulmonary: Clear to auscultation. Nonlabored. No wheezing/rhonchi/crackles Abdomen: suprapubic tenderness. positive bowel sounds Extremities: No significant edema Neuro: alert and oriented; Moves all extremities. No focal neurological deficits Agree with plan as outlined above. A substantial amount of time was spent in direct observation of the advanced provider, discussion of the patient with the care team, direct patient care, and independent review and analysis of labs and imaging. Taj Chamorro MD documented in this encounter Consult Notes * Dm Harper MD - 12/08/2023 7:15 PM CDTAssociated Order(s): IP CONSULT TO UROLOGY Images from the original note were not included. Urologic Surgery Inpatient Consult Note Encounter Date: 12/08/2023 Patient Name: Aime Matthews Requesting Provider: ER Reason for Consultation: Indwelling stents History of Present Illness: Mr. Matthews is a 68-year-old male currently admitted for leukocytosis abdominal pain, pyelonephritis pneumonia. Patient has a history of end-stage renal disease on dialysis and makes minimal urine he had seen one of my colleagues over in [place] previously Dr. Best meyers and was going to be setup for cystoscopy with retrogrades and stent removal. Apparently his stents were placed somewhere in [place]. Patient is a very poor historian he currently complains of abdominal pain. He stateshe does not make much urine he has a pure wick on currently he denies gross hematuria or dysuria. Past Medical History: Diagnosis Date Hypertension Renal disorder Past Surgical History: Procedure Laterality Date HC STENT RENAL Bilateral 2021 Social History Socioeconomic History Marital status: Tobacco Use Smoking status: Every Day Current packs/day: 0.50 Average packs/day: 0.5 packs/day for 47.3 years (23.7 ttl pk-yrs) Types: Cigarettes Start date: 08/05/1976 Smokeless tobacco: Never Vaping Use Vaping status: Never Used Substance and Sexual Activity Alcohol use: Yes Alcohol/week: 8.3 standard drinks of alcohol Types: 5 Shots of liquor per week Drug use: Never Sexual activity: Not Currently Social Determinants of Health Financial Resource Strain: Not At Risk (06/02/2023) Received from [facility] Financial Resource Needs Financial Resource Strain: 1 Transportation Needs: Not At Risk (06/02/2023) Received from [facility] Transportation Needs Transportation Needs: 1 Housing Stability: Not At Risk (06/02/2023) Received from [facility] Housing Stability Source Housing Insecurity: 1 No family history on file. He denies a family history of malignancy. He denies a family history of nephrolithiasis. Medications: MEDICATIONS FOR CURRENT ENCOUNTER: SCHEDULED MEDICATIONS: azithromycin 500 mg Oral Daily [START ON 12/09/2023] cefTRIAXone 1 g Intravenous Q24H heparin (porcine) 5,000 Units Subcutaneous 2 times per day CONTINUOUS MEDICATIONS: PRN MEDICATIONS: acetaminophen, albuterol sulfate HFA, heparin (porcine), HYDROcodone- acetaminophen, naLOXone, ondansetron, polyethylene glycol, Senna Allergies: Allergies Allergen Reactions Lisinopril Anaphylaxis and Angioedema Denies allergy 12/08/23 Review of Systems: A complete 10-point review of systems was reviewed with the patient. Pertinent positives and negatives are in the History of Present Illness and Past Medical History. All other systems are unremarkable. Vitals Filed Vitals: 12/08/23 1815 12/08/23 1830 12/08/23 1845 12/08/23 1900 BP: 115/75 91/61 103/74 105/73 Pulse: (!) 118 (!) 129 (!) 130 (!) 122 Resp: Temp: TempSrc: SpO2: Weight: Height: Height: 182.9 cm (6') Weight: 66.7 kg (147 lb 0.8 oz) Intake / Output: Intake/Output Summary (Last 24 hours) at 12/08/20231914 Last data filed at 12/08/2023 1559 Gross per 24 hour Intake 50 ml Output -- Net 50 ml Physical Examination: General: Patient is alert and oriented in no acute distress. Head: Normocephalic, atraumatic. Nares are symmetric without nasal flaring or respiratory distress.No lip cyanosis. Eyes: Sclera anicteric. Cardiovascular: Peripheral perfusion appears adequate. No digital clubbing or cyanosis present. Chest: Non-labored respirations. Comfortable respiratory effort without recruitment of accessory respiratory muscles. Abdominal: Abdomen soft, diffusely tender no palpable masses. Gu: Pure wick device in place no testicular swelling, erythema palpable mass. No CVA tenderness Musculoskeletal: Normal station and posture. Moves all extremities symmetrically. Neurological: No focal neurologic deficit. Psychiatric: Appropriate affect and mood. Skin: Normal coloration and turgor. Hematological/Immunological: No bleeding gums or jaundice. Lymphatic: Nopalpable lymphadenopathy. Laboratory: Recent Labs Lab 12/08/23 0857 WBC 24.08* HGB 11.0* HCT 31.5* Recent Labs Lab 12/08/23 0857 CO2 25.8 ALT 12* AST 20 No results for input(s): APTT, INR, PTT in the last 168 hours. No results found for: PSA Invalid input(s): COLORU, CLARITYU, SPECGRAVU, PHURINE, PROTURQL, GLUCOSEUR, KETONESU, BILIRUBINU, BLOODUR, UROBILINOGUR, NITRITEU, LEUKESTUR Microbiology: Microbiology Results (last 14 days) No results found for the last 336 hours. Microbiology Results (last 14 days) No results found for the last 336 hours. Imaging: Radiology Results (Last 30 days) 12/08/[address] ABD+PEL WO CON Final result Impression: IMPRESSION: 1. Moderate bilateral renal edema, perinephric stranding, renal pelvis and ureteral wall thickening, and urinary bladder wall thickening. Findings could be consistent with urinary tract infection and certainly pyelonephritis is not excluded without intravenous contrast. Bilateral ureteral stents. Mild bilateral hydronephrosis. Recommend correlation with urinalysis. 2. Mild opacities in the right lower lobe and minimal opacities in the left lower lobe suggesting infiltrate and subsegmental atelectasis. Very small bilateral pleural effusions. 3. Dependent density in the gallbladder suggesting noncalcified stones and/or sludge. Minimal distention of the superior common bile duct. 4. No apparent bowel obstruction. Ordered By: AMAN LOCKWOOD Interpreted By: Zeb Gutierrez, 12/08/2023 11:02 AM I have personally reviewed available radiographic images, and if available, the radiology report(s). I have discussed the results of the clinical lab tests and radiographic images with the patient. Assessment: ESRD on HD, UTI, bilateral hydronephrosis, pyelonephritis, pneumonia Recommendations: Agree with empiric broad-spectrum IV antibiotics. Patient will ultimately need cystoscopy bilateralstent removal bilateral retrograde pyelography once his infection has cleared. His primary urologist is Dr. Messer. Recommend urine culture for tailored appropriate antibiotic therapy. -------- Dm Harper M.D. [facility] * Enrique Jimenez MD - 12/08/2023 3:00 PM CDTAssociated Order(s): IP CONSULT TO NEPHROLOGY Nephrology Consult Note Attending Provider: Taj Chamorro MD PCP: Provider None, Man Jeanie Matthews is an 68-year-old male. Reason for Admission: Pyelonephritis Reason for Consult: ESRD on HD HPI: Mr. Matthews a 68 years old male with past medical history of end-stage renal disease on chronic hemodialysis Wednesday, hypertension, OACD. -He presented to the ED today with 2 to 3 weeks of lower abdominal pain that was getting worse. Imaging showed concern for pyelonephritis with mild bilateral hydronephrosis for which he was started on antibiotic and urology were consulted. He described the pain to be constant, on the lower side of the abdomen, 10 out of 10 at max with no radiation. He also mention diarrhea for 2 weeks and decreased oral intake due to the symptoms. He usually uses cane or a walker to ambulate. Diarrhea is on/offat this point. He mentioned some dyuria He has been on HD for around a year. He mentioned ome dizziness. -he denied cough, fever, chest pain, shortness of breath, headache, hematuria Home medications include limited to hydrochlorothiazide 12.5 mg daily, amlodipine 10 mg daily, tramadol, vitamin D Past Medical History: Diagnosis Date Hypertension Renal disorder Allergies: Allergies Allergen Reactions Lisinopril Anaphylaxis and Angioedema Denies allergy 12/08/23 Social History Tobacco Use Smoking status: Every Day Current packs/day: 0.50 Average packs/day: 0.5 packs/day for 47.3 years (23.7 ttl pk-yrs) Types: Cigarettes Start date: 08/05/1976 Smokeless tobacco: Never Substance Use Topics Alcohol use: Yes Alcohol/week: 8.3 standard drinks of alcohol Types: 5 Shots of liquor per week Past Surgical History: Procedure Laterality Date HC STENT RENAL Bilateral 2021 No family history on file. No current facility-administered medications on file prior to encounter. Current Outpatient Medications on File Prior to Encounter Medication Sig acetaminophen (TYLENOL) 500 MG tablet Take 2 tablets (1,000 mg total) by mouth every 6 (six) hours as needed for Pain. traMADol (ULTRAM) 50 MG tablet Take 1 tablet (50 mg total) by mouth 2 (two) times daily as needed for Pain. amLODIPine 10 MG tablet Take 1 tablet (10 mg total) by mouth daily. (Patient not taking: Reported on 12/08/2023) Cholecalciferol (VITAMIN D3) 50 MCG (2000 UT) Tab Take 1 tablet (2,000 Units total) by mouth daily.(Patient not taking: Reported on 12/08/2023) GLYCERIN, ADULT, [address] 1 suppository rectally daily. (Patient not taking: Reported on 12/08/2023) hydroCHLOROthiazide 12.5 MG tablet Take 1 tablet (12.5 mg total) by mouth every morning. (Patient not taking: Reported on 12/08/2023) multi vitamin/minerals tablet Take 1 tablet by mouth daily. (Patient not taking: Reported on 12/08/2023) Medications Discontinued During This Encounter Medication Reason azithromycin (ZITHROMAX) 500 mg in sodium chloride 0.9 % 250 mL IVPB Current Facility-Administered Medications Medication Dose Route Frequency Provider Last Rate Last Admin acetaminophen (TYLENOL) tablet 650 mg 650 mg Oral Q4H PRN Chula Martinez NP albuterol sulfate HFA 108 (90 Base) MCG/ACT inhaler 2 puff 2 puff Inhalation Q4H PRN Chula Martinze NP azithromycin (ZITHROMAX) tablet 500 mg 500 mg Oral Daily Chula Martinez NP [START ON 12/09/2023] cefTRIAXone (ROCEPHIN) 1 g in sodium chloride 0.9 % 50 mL IVPB 1 g Intravenous Q24H Chula Martinez NP heparin (porcine) injection 5,000 Units 5,000 Units Subcutaneous 2 times per day Chula Martinez NP HYDROcodone-acetaminophen (NORCO) 5-325 MG tablet 1 tablet 1 tablet Oral Q4H PRN Chula Martinez NP naLOXone (NARCAN) injection 0.4 mg 0.4 mg Intravenous PRN Chula Martinez NP ondansetron (ZOFRAN) injection 4 mg 4 mg Intravenous Q8H PRN Chula Martinez NP polyethylene glycol (GLYCOLAX) packet 17 g 17 g Oral Daily PRN Chula Martinez NP Senna (SENOKOT) 8.6 MG tablet 8.6 mg 8.6 mg Oral Daily PRN Chula Martinez NP Current Outpatient Medications Medication Sig Dispense Refill acetaminophen (TYLENOL) 500 MG tablet Take 2 tablets (1,000 mg total) by mouth every 6 (six) hours as needed for Pain. traMADol (ULTRAM) 50 MG tablet Take 1 tablet (50 mg total) by mouth 2 (two) times daily as needed for Pain. amLODIPine 10 MG tablet Take 1 tablet (10 mg total) by mouth daily. (Patient not taking: Reported on 12/08/2023) 30 tablet 2 Cholecalciferol (VITAMIN D3) 50 MCG (2000 UT) Tab Take 1 tablet (2,000 Units total) by mouth daily.(Patient not taking: Reported on 12/08/2023) GLYCERIN, ADULT, [address] 1 suppository rectally daily. (Patient not taking: Reported on 12/08/2023) hydroCHLOROthiazide 12.5 MG tablet Take 1 tablet (12.5 mg total) by mouth every morning. (Patient not taking: Reported on 12/08/2023) 30 tablet 2 multi vitamin/minerals tablet Take 1 tablet by mouth daily. (Patient not taking: Reported on 12/08/2023) Review of Systems: -General: fatigue. Negative for fever, chills -Eyes: Negative for eye pain, eye redness, eye discharge or itchiness. -Cardiovascular: Negative for chest pain, lower Ext. edema. -Respiratory: Negative for shortness of breath, wheezing, cough, or hemoptysis. -Gastrointestinal: abdominal pain, diarrhea. Negative for Nausea, vomiting, constipation, hematemesis, or hematochezia. -Musculoskeletal: Negative for joint pain, muscle aches, back pain, joint swelling or stiffness. -Neurological: dizziness. Negative for headache, confusion, numbness, weakness Vitals: Blood pressure 114/78, pulse (!) 101, temperature 97.6 ??F (36.4 ??C), temperature source Oral, resp. rate 18, height 1.829 m (6'), weight 66.7 kg (147 lb 0.8 oz), SpO2 95%. Physical Exam: -GENERAL: No acute distress, breathing comfortably on room air. -EYES: Extraocular movements intact -LUNG: Clear to auscultation bilaterally, No wheezes, No crackles -CVS: Regular rate rhythm, S1 and S2 normal, No murmurs -ABDOMEN: Soft, nondistended, Nontender -Musculoskeletal / EXT: no lower Ext edema. -NEURO: Alert, awake, oriented x3, No gross neuro deficit LABs I reviewed labs Recent Labs Lab 12/08/23 0857 NA 129* K 3.9 CL 91* CO2 25.8 AGAP 12.2* BUN 34* CR 4.69* BUNCREATININ 7.2 GLU 100* CA 9.1 Recent Labs Lab 12/08/23 0857 WBC 24.08* RBC 3.52* HGB 11.0* HCT 31.5* MCV 89.5 MCH 31.3* MCHC 34.9 PLT 460* RDW 13.4 MPV 9.9 Assessment/Plan: Mr. Matthews a 68 years old male with past medical history of end-stage renal disease on chronic hemodialysis Wednesday, hypertension, OACD. -He presented to the ED today with 2 to 3 weeks of lower abdominal pain with diarrhea, fatigue. --- End-stage renal disease on chronic hemodialysis MWF; last reported dialysis was Wednesday. I reviewed chest imaging film showing some opacity on the right more than the left lung base with some effusion. Plan for hemodialysis today. Holding home sodium bicarbonates as not needed while on dialysis.To be on oral fluid restriction with his hyponatremia. -Imaging showed bilateral renal edema, perinephric stranding with ureteral and urinary bladder wallthickening which consist of infection/pyelonephritis with mild bilateral hydronephrosis. checking for urinalysis and culture. Started on antibiotics. Urology were consulted --- Hypertension; normotensive on admission as needed introducing back hold blood pressure medication. --- Anemia of CKD with hemoglobin at 11, holding ASA Thank you for allowing me to participate in the care of this patient. We will continue to follow this patient with you. Please contact us with further questions. ENRIQUE JIMENEZ MD 12/08/2023 documented in this encounter ED Notes * Alf Branch RN - 12/08/2023 10:27 AM CDT Pt tried to urinate and states that he is unable to go. That's all it do * Alf Branch RN - 12/08/2023 10:20 AM CDT This RN called pts sister to give her update. Pt gave permission to speak with sister. * RONNIE Alicia - 12/08/2023 9:31 AM CDT ED NOTE Chief Complaint Chief Complaint Patient presents with Abdominal Pain History of Present Illness 68-year-old male with history of end-stage renal disease on hemodialysis presenting to emergency department for evaluation of lower abdominal discomfort increasing over the past several days. Patientreports he has had recent stents placed to bilateral ureters and had a urinary catheter that was removed 1 week ago for urinary retention. Does report that he currently is able to urinate. Denies any current fevers chills or vomiting. Medical History ALLERGIES: Review of patient's allergies indicates: Allergen Reactions Lisinopril Anaphylaxis and Angioedema Denies allergy 12/08/23 MEDICATIONS: Prior to Admission medications Medication Sig Start Date End Date Taking? Authorizing Provider GLYCERIN, ADULT, [address] 1 suppository rectally daily. 08/09/23 Yes Default History Genericprovider traMADol (ULTRAM) 50 MG tablet Take 1 tablet (50 mg total) by mouth 2 (two) times daily as needed for Pain. 11/23/23 Yes Default History Genericprovider amLODIPine 10 MG tablet Take 1 tablet (10 mg total) by mouth daily. 03/08/20 Abel Lizarraga MD Cholecalciferol (VITAMIN D3) 50 MCG (1999 UT) Tab Take 1 tablet (2,000 Units total) by mouth daily.[facility] hydroCHLOROthiazide 12.5 MG tablet Take 1 tablet (12.5 mg total) by mouth every morning. 03/08/20 Abel Lizarraga MD multi vitamin/minerals tablet Take 1 tablet by mouth daily. [facility] PAST MEDICAL HISTORY: Past Medical History: Diagnosis Date Hypertension Renal disorder PAST SURGICAL HISTORY: Past Surgical History: Procedure Laterality Date HC STENT RENAL Bilateral 2021 FAMILY HISTORY: No family history on file. SOCIAL HISTORY: Social History Tobacco Use Smoking status: Every Day Current packs/day: 0.50 Average packs/day: 0.5 packs/day for 47.3 years (23.7 ttl pk-yrs) Types: Cigarettes Start date: 08/05/1976 Smokeless tobacco: Never Vaping Use Vaping status: Never Used Substance Use Topics Alcohol use: Yes Alcohol/week: 8.3 standard drinks of alcohol Types: 5 Shots of liquor per week Drug use: Never Review of Systems As stated in HPI Physical Exam Filed Vitals: 12/08/23 0843 12/08/23 1300 BP: 105/84 114/78 Pulse: (!) 118 (!) 101 Resp: 14 18 Temp: 97.6 ??F (36.4 ??C) TempSrc: Oral SpO2: 97% 95% Weight: 66.7 kg (147 lb 0.8 oz) Height: 1.829 m (6') Physical Exam Vitals and nursing note reviewed. Constitutional: General: He is not in acute distress. Appearance: He is well-developed. HENT: Head: Normocephalic. Nose: Nose normal. Pulmonary: Effort: Pulmonary effort is normal. No respiratory distress. Abdominal: Palpations: Abdomen is soft. Tenderness: There is abdominal tenderness (suprapubic). Musculoskeletal: General: No tenderness. Normal range of motion. Cervical back: Normal range of motion and neck supple. Skin: General: Skin is warm and dry. Neurological: Mental Status: He is alert and oriented to person, place, and time. Psychiatric: Behavior: Behavior normal. Thought Content: Thought content normal. Judgment: Judgment normal. 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: : 1955 Requested By: AMAN LOCKWOOD Order Number: [id number] Reading MD: Measurements Intervals [place] Rate: 106 P: 67 AL: 153 QRS: 9 QRSD: 71 T: 43 QT: 320 QTc: 425 Interpretive Statements SINUS TACHYCARDIA POSSIBLE LEFT ATRIAL ENLARGEMENT [-0.1mV P WAVE IN V1/V2] NONSPECIFIC T-WAVE ABNORMALITY ABNORMAL RHYTHM ECG Compared to ECG 08/06/2023 10:53:39 T-wave abnormality now present Sinus rhythm no longer present LABORATORY STUDIES: Results for orders placed or performed during the hospital encounter of 12/08/23 CBC W/DIFF AUTOMATED Result Value Ref Range WBC 24.08 (H) 4.5 - 11.0 x10'3/uL RBC 3.52 (L) 4.70 - 6.10 x10'6/uL HGB 11.0 (L) 14.0 - 18.0 G/DL HCT 31.5 (L) 43.0 - 54.0 % MCV 89.5 80.0 - 94.0 FL MCH 31.3 (H) 27.0 - 31.0 PG MCHC 34.9 32.0 - 36.0 G/DL RDW 13.4 11.5 - 14.5 % PLT 460 (H) 130 - 400 x10'3/uL MPV 9.9 9.3 - 12.2 FL DIFFERENTIAL TYPE MANUAL DIFFERENTIAL SEG NEUTROPHILS 86 % LYMPHOCYTES 5 % MONOCYTES 4 % BANDS 5 % ABS. NEUTROPHILS 21.91 (H) 1.80 - 7.70 x10'3/uL ABS. LYMPHOCYTES 1.20 1.00 - 4.80 x10'3/uL ABS. MONOCYTES 0.96 (H) 0.30 - 0.82 x10'3/uL RBC MORPHOLOGY SLIDE REVIEWED JAKUB 1+ TARGET CELLS 1+ PLT EST. INCREASED COMPREHENSIVE METABOLIC PANEL Result Value Ref Range GLUCOSE 100 (H) 70 - 99 MG/DL BUN 34 (H) 7 - 18 MG/DL CREATININE S/P/B 4.69 (H) 0.7 - 1.3 MG/DL SODIUM S/P/B 129 (L) 136 - 145 MMOL/L POTASSIUM S/P/B 3.9 3.5 - 5.1 MMOL/L CHLORIDE S/P/B 91 (L) 97 - 115 MMOL/L CO2 25.8 21 - 32 MMOL/L CALCIUM S/P/B 9.1 8.5 - 10.1 MG/DL BILIRUBIN TOTAL S/P/B 0.6 0.2 - 1.2 MG/DL TOTAL PROTEIN S/P/B 7.8 6.4 - 8.2 G/DL ALBUMIN S/P/B 2.0 (L) 3.4 - 5.0 G/DL AST 20 15 - 37 U/L ALT 12 (L) 16 - 60 U/L ALKALINE PHOSPHATASE S/P/B 111 50 - 136 U/L ANION GAP 12.2 (H) 2 - 10 MMOL/L BUN CREATININE RATIO 7.2 6 - 26 A/G RATIO 0.3 (L) 1.0 - 2.0 RATIO GFR ESTIMATE 13 (L) >90 ML/MIN/1.73 M2 LIPASE Result Value Ref Range LIPASE 8 (L) 13 - 75 UNITS/L TROPONIN, QUANT Result Value Ref Range TROPONIN I HIGH SENSITIVITY 4 <79 ng/L LACTIC ACID W REFLEX (SEPSIS) Result Value Ref Range LACTIC ACID VENOUS 1.0 0.4 - 2.0 MMOL/L IMAGING STUDIES CT ABD+PEL WO CON Final Result by User, [id number] (12/07 114) [address] [address] IMAGING STUDIES: CT ABD+PEL WO CON DATE: 12/08/2023 10:32 AM HISTORY: flank pain, recent ureteral stents 68-year-old male. History of end-stage renal disease on hemodialysis. Lower abdominal discomfort increasing over the past several days. Patient reports recent placement of bilateral ureteral stents. A urinary catheter placed for urinary retention was removed approximately one week ago. Patient reports he can urinate. COMPARISON: Chest portable 08/06/2023. Bilateral hips 05/31/2020. DISCUSSION: CT abdomen and pelvis without intravenous contrast. Coronal and sagittal reconstructions. No enteric contrast. Automated exposure control with radiation dose reduction techniques were used. CHEST: Mild infiltrate and subsegmental atelectasis in the right lower lobe and minimal infiltrate and subsegmental atelectasis in the left lower lobe. Very small bilateral pleural effusions. CARDIOVASCULAR: Heart size is normal. No pericardial effusion. No abdominal aortic aneurysm. Atherosclerotic calcification of the aorta, aortic branch arteries, iliac arteries, and femoral arteries. UPPER ABDOMEN: Dependent densities in the moderately distended gallbladder suggesting noncalcified gallstones and/or sludge. No appreciable gallbladder wall thickening to suggest acute cholecystitis. Minimal distention of the superior common bile duct up to 7 mm but tapering toward the ampulla. No calcifications within the common bile duct. No apparent acute abnormality of the unopacified liver, pancreas, spleen, and adrenal glands. GENITOURINARY: Limited evaluation for renal lesions given lack of intravenous contrast. No renal calcifications. Moderate bilateral renal edema and perinephric stranding. Probable mild bilateral hydronephrosis. Bilateral ureteral stents. Right ureteral stent with superior retention coil in the inferior renal pelvis and distal retention coil in the left urinary bladder. Left ureteral stent in the inferior renal pelvis or dilated proximal ureter with distal retention coil in the right urinary bladder. General edema/stranding and wall thickening in the bilateral renal pelvis and ureters. Mild fluid in the urinary bladder. Generalized urinary bladder wall thickening and most pronounced anteriorly of up to approximately 17 mm wall thickness. No bladder calcification. No appreciable urinary bladder lumen fluid hyperdensity/blood products. LYMPHATIC: No apparent pathologic adenopathy given limitations of noncontrast study. GASTROINTESTINAL: No apparent bowel obstruction. Evaluation for bowel inflammation is limited without intravenous contrast. No apparent free fluid in the abdomen or pelvis. MUSCULOSKELETAL: Multiple old healed posterior right rib fractures. Spinal degenerative changes most prominent at the facets of the mid to lower lumbar spine. Severe degenerative changes at the right hip with sclerotic and cystic changes of the acetabulum and femoral head and partial collapse of the femoral head cortex. Sclerotic changes of the left femoral head. 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 IMPRESSION: 1. Moderate bilateral renal edema, perinephric stranding, renal pelvis and ureteral wall thickening, and urinary bladder wall thickening. Findings could be consistent with urinary tract infection and certainly pyelonephritis is not excluded without intravenous contrast. Bilateral ureteral stents. Mild bilateral hydronephrosis. Recommend correlation with urinalysis. 2. Mild opacities in the right lower lobe and minimal opacities in the left lower lobe suggesting infiltrate and subsegmental atelectasis. Very small bilateral pleural effusions. 3. Dependent density in the gallbladder suggesting noncalcified stones and/or sludge. Minimal distention of the superior common bile duct. 4. No apparent bowel obstruction. Ordered By: AMAN LOCKWOOD Interpreted By: Zeb Gutierrez, 12/08/2023 11:02 AM ED Course / Medical Decision Making MDM Amount and/or Complexity of Data Reviewed Clinical lab tests: ordered and reviewed Tests in the radiology section of CPT??: ordered and reviewed Decide to obtain previous medical records or to obtain history from someone other than the patient:yes ED Course as of 12/08/23 1423 Wed Dec 08, [address] [place]- [phone], chapisjose peyton notified on discharge [MB] ED Course User Index [MB] RONNIE Alicia Laboratory testing shows moderate leukocytosis lactic acid within normal limits and no signs of acute sepsis. CT scan does show evidence of inflammation around urinary bladder and perinephric edema consistent with likely pyelonephritis. CT also with evidence of potential pneumonia. Patient does notendorse any significant cough or shortness of breath at this time we will plan to start patient on IV antibiotics for pyelonephritis. Consulted with urology who also evaluated patient in hospital with his ureteral stents in place currently. Medications morphine injection 4 mg (4 mg Intravenous Given 12/08/23 1047) cefTRIAXone (ROCEPHIN) 1 g in sodium chloride 0.9 % 50 mL IVPB (1 g Intravenous New Bag 12/08/23 1226) Clinical Impression Pyelonephritis (Primary) Current Discharge Medication List Disposition: Admit Follow-Up: No follow-up provider specified. RONNIE Alicia 12/08/2023 RONNIE Alicia 12/08/23 142 Cosigned by Robert Espinosa DO at 12/08/2023 3:59 PM CDT * Alf Branch RN - 12/08/2023 9:20 AM CDT Provider was at bedside to examine pt. Pt told provider that he was not suppose to have gallbladdersurgery yesterday and it was suppose to be his stents being removed. Pt was unable to make appointment d/t not having a ride. Pt tells this RN that he never told EMS it was his gallbladder and that he was in pain when they were asking him questions. * Alf Branch RN - 12/08/2023 8:58 AM CDT Pt provided with warm blanket. Pt asking for pain medicine. Pt educated that provider would have toassess him first before pain meds were ordered. Patient verbalized understanding. * Ally Curtis RN - 12/08/2023 8:45 AM CDT Pt to ed per ems with co 3 weeks of abd pain, was suppose to get his gallbladder out yesterday but didn't have a ride, was suppose to go to dialysis this am but is here instead. Pt alert, reports pain the same as it has been for past 3 weeks. * Bridget Ramires RN - 12/08/2023 8:41 AM CDT Bed: 16 Expected date: Expected time: Means of arrival: Ambulance - [facility] Comments: 1244 documented in this encounter Plan of Treatment Not on file documented as of this encounter Goals Goal Patient Goal Type Associated Problems Recent Progress Patient-Stated? Author Consistently take medications as Prescribed General Delia Shipley RN Health - patient able to perform ADLs independently Lifestyle No Renee Price RN documented as of this encounter Procedures Procedure Name Priority Date/Time Associated Diagnosis Comments BASIC METABOLIC PANEL Routine 12/14/2023 5:15 AM CDT CBC W/DIFF AUTOMATED Routine 12/14/2023 5:15 AM CDT BASIC METABOLIC PANEL Routine 12/13/2023 5:42 AM CDT CBC W/DIFF AUTOMATED Routine 12/13/2023 5:[address] ABD+PEL W CON Today 12/12/2023 1:05 PM CDT BASIC METABOLIC PANEL Routine 12/12/2023 4:20 AM CDT CBC W/DIFF AUTOMATED Routine 12/12/2023 4:20 AM CDT BASIC METABOLIC PANEL Routine 12/11/2023 5:20 AM CDT CBC W/DIFF AUTOMATED Routine 12/11/2023 5:20 AM CDT VANCOMYCIN Routine 12/11/2023 5:20 AM CDT URINE BACTERIA CULTURE Routine 4:10 PM CDT BASIC METABOLIC PANEL Routine 12/10/2023 5:42 AM CDT CBC W/DIFF AUTOMATED Routine 12/10/2023 4:20 AM CDT HC URINALYSIS AUTO W/O MICRO STAT 12/09/2023 10:06 AM CDT URINE BACTERIA CULTURE Routine 10:06 AM CDT BASIC METABOLIC PANEL Routine 12/09/2023 4:49 AM CDT CBC W/DIFF AUTOMATED Routine 12/09/2023 4:49 AM CDT MAGNESIUM Routine 12/09/2023 4:49 AM CDT HEPATITIS B POST-VACCINE ANTIBODY STAT 12/08/2023 2:48 PM CDT HEPATITIS B SURFACE AG, EIA STAT 12/08/2023 2:[address] ABD+PEL WO CON STAT 12/08/2023 10: 37 AM CDT LACTIC ACID W REFLEX (SEPSIS) STAT 12/08/2023 9:33 AM CDT PROCALCITONIN (PCT) Routine 12/08/2023 8 :57 AM CDT COMPREHENSIVE METABOLIC PANEL STAT 12/08/2023 8:57 AM CDT CBC W/DIFF AUTOMATED STAT 12/08/2023 8:57 AM CDT TROPONIN, QUANT STAT 12/08/2023 8:57 AM CDT LIPASE STAT 12/08/2023 8:57 AM CDT ECG 12-LEAD Routine 12/08/2023 8:56 AM CDT documented in this encounter Results * (ABNORMAL) CBC W/DIFF AUTOMATED (12/14/2023 5:15 AM CDT) [facility] WBC 11.56(H) 4.5 - 11.0 x10'3/uL 12/14/2023 5:42 AM CDT [facility] RBC 3.17(L) 4.70 - 6.10 x10'6/uL 12/14/2023 5:42 AM CDT [facility] HGB 9.7(L) 14.0 - 18.0 G/DL 12/14/2023 5:42 AM CDT [facility] HCT 28.9(L) 43.0 - 54.0 % 12/14/2023 5:42 AM CDT [facility] MCV 91.2 80.0 - 94.0 FL 12/14/2023 5:42 AM CDT [facility] MCH 30.6 27.0 - 31.0 PG 12/14/2023 5:42 AM CDT [facility] MCHC 33.6 32.0 - 36.0 G/DL 12/14/2023 5:42 AM CDT [facility] RDW 14.4 11.5 - 14.5 % 12/14/2023 5:42 AM CDT [facility] PLT 400 130 - 400 x10'3/uL 12/14/2023 5:42 AM T [facility] MPV 10.1 9.3 - 12.2 FL 12/14/2023 5:42 AM CDT [facility] DIFFERENTIAL TYPE MANUAL DIFFERENTIAL 12/14/2023 6:24 AM CDT [facility] SEG NEUTROPHILS 66 % 6:24 AM CDT [facility] LYMPHOCYTES 15 % 12/14/2023 6:24 AM T [facility] MONOCYTES 11 % 12/14/2023 6:24 AM T [facility] METAMYELOCYTES 4 % 12/14/2023 6:24 AM CDT [facility] MYELOCYTES 4 % 12/14/2023 6:24 AM CDT [facility] ABS. NEUTROPHILS 7.63 1.80 - 7.70 x10'3/uL 12/14/2023 6:24 AM T [facility] ABS. LYMPHOCYTES 1.73 1.00 - 4.80 x10'3/uL 12/14/2023 6:24 AM CDT [facility] ABS. MONOCYTES 1.27(H) 0.30 - 0.82 x10'3/uL 12/14/2023 6:24 AM CDT [facility] ABS. METAMYELOCYTES 0.46(H) 0.00 x10'3/uL 12/14/2023 6:24 AM CDT [facility] ABS. MYELOCYTES 0.46(H) 0.00 x10'3/uL 12/14/2023 6:24 AM CDT [facility] RBC MORPHOLOGY SLIDE REVIEWED 2023 6:24 AM CDT [facility] TARGET CELLS 1+ 12/14/2023 6:24 AM CDT [facility] PLT EST. INCREASED 12/14/2023 6:24 AM CDT [facility] 12/14/2023 5:15 AM CDT Taj Chamorro MD LABORATORY Final R esult [facility] [address] [place] [address], [place] [phone] * (ABNORMAL) BASIC METABOLIC PANEL (12/14/2023 5:15 AM CDT) GLUCOSE 114(H) 70 - 99 MG/DL 12/14/2023 6:01 AM CDT [facility] BUN 24(H) 7 - 18 MG/DL 12/14/2023 6:01 AM CDT [facility] CREATININE S/P/B 4.84(H) 0.7 - 1.3 MG/DL 12/14/2023 6:01 AM CDT [facility] SODIUM S/P/B 132(L) 136 - 145 MMOL/L 12/14/2023 6:01 AM CDT [facility] POTASSIUM S/P/B 3.6 3.5 - 5.1 MMOL/L 12/14/2023 6:01 AM CDT [facility] CHLORIDE S/P/B 99 97 - 115 MMOL/L 12/14/2023 6:01 AM CDT [facility] CO2 24.3 21 - 32 MMOL/L 12/14/2023 6:01 AM CDT [facility] CALCIUM S/P/B 9.1 8.5 - 10.1 MG/DL 12/14/2023 6:01 AM CDT [facility] ANION GAP 8.7 2 - 10 MMOL/L 12/14/2023 6:01 AM CDT [facility] BUN CREATININE RATIO 5.0(L) 6 - 26 12/14/2023 6:01 AM CDT [facility] GFR ESTIMATE 13(L) >90 ML/MIN/1.7 3 M2 12/14/2023 6:01 AM CDT [facility] Comment: NOTE: eGFR is not calculated for patients <18 years of age or gender unknown. This is an estimated GFR calculation using the new CKD EPI creatinine equation without race and so does not require a correction factor for race. This estimated GFR should not be used for calculating drug doses. 12/14/2023 5:15 AM CDT Taj Chamorro MD LABORATORY Final R esult [facility] [address] [place] [address], * (ABNORMAL) CBC W/DIFF AUTOMATED (12/13/2023 5:42 AM CDT) WBC 10.28 4.5 - 11.0 x10'3/uL 12/13/2023 6:32 AM CDT [facility] RBC 3.25(L) 4.70 - 6.10 x10'6/uL 12/13/2023 6:32 AM CDT [facility] HGB 10.0(L) 14.0 - 18.0 G/DL 12/13/2023 6:32 AM CDT [facility] HCT 29.6(L) 43.0 - 54.0 % 12/13/2023 6:32 AM CDT [facility] MCV 91.1 80.0 - 94.0 FL 12/13/2023 6:32 AM CDT [facility] MCH 30.8 27.0 - 31.0 PG 12/13/2023 6:32 AM CDT [facility] MCHC 33.8 32.0 - 36.0 G/DL 12/13/2023 6:32 AM CDT [facility] RDW 14.6(H) 11.5 - 14.5 % 12/13/2023 6:32 AM CDT [facility] PLT 468(H) 130 - 400 x10'3/uL 12/13/2023 6:32 AM CDT [facility] MPV 9.9 9.3 - 12.2 FL 12/13/2023 6:32 AM CDT [facility] DIFFERENTIAL TYPE MANUAL DIFFERENTIAL 12/13/2023 6:45 AM CDT [facility] SEG NEUTROPHILS 65 % 6:45 AM CDT [facility] LYMPHOCYTES 18 % 12/13/2023 6:45 AM CDT [facility] MONOCYTES 9 % 12/13/2023 6:45 AM CDT [facility] EOSINOPHILS 2 % 12/13/2023 6:45 AM CDT [facility] BASOPHILS 1 % 12/13/2023 6:45 AM CDT [facility] BANDS 1 % 12/13/2023 6:45 AM CDT [facility] METAMYELOCYTES 2 % 12/13/2023 6:45 AM CDT [facility] MYELOCYTES 2 % 12/13/2023 6:45 AM CDT [facility] ABS. NEUTROPHILS 6.78 1.80 - 7.70 x10'3/uL 12/13/2023 6:45 AM CDT [facility] ABS. LYMPHOCYTES 1.85 1.00 - 4.80 x10'3/uL 12/13/2023 6:45 AM CDT [facility] ABS. MONOCYTES 0.93(H) 0.30 - 0.82 x10'3/uL 12/13/2023 6:45 AM CDT [facility] ABS. EOSINOPHILS 0.21 0.04 - 0.54 x10'3/uL 12/13/2023 6:45 AM CDT [facility] ABS. BASOPHILS 0.10(H) 0.01 - 0.08 x10'3/uL 12/13/2023 6:45 AM CDT [facility] ABS. METAMYELOCYTES 0.21(H) 0.00 x10'3/uL 12/13/2023 6:45 AM CDT [facility] ABS. MYELOCYTES 0.21(H) 0.00 x10'3/uL 12/13/2023 6:45 AM CDT [facility] RBC MORPHOLOGY SLIDE REVIEWED 2023 6:45 AM CDT [facility] HYPOCHROMASIA 1+ 12/13/2023 6:45 AM CDT [facility] TARGET CELLS 1+ 12/13/2023 6:45 AM CDT [facility] Clumped Platelets 1+ 024 6:45 AM CDT [facility] PLT EST. INCREASED 12/13/2023 6:45 AM CDT [facility] 12/13/2023 5:42 AM CDT us Taj Chamorro MD LABORATORY Final R esult [facility] [address] [place] [address], [place] [phone] * (ABNORMAL) BASIC METABOLIC PANEL (12/13/2023 5:42 AM CDT) [facility] GLUCOSE 105(H) 70 - 99 MG/DL 12/13/2023 6:52 AM CDT [facility] BUN 44(H) 7 - 18 MG/DL 12/13/2023 6:52 AM CDT [facility] CREATININE S/P/B 5.74(HH) 0.7 - 1.3 MG/DL 12/13/2023 6:52 AM CDT [facility] Comment: Critical Result(s) Called at: 06:50:16 on 12/13/2023 by: ABDIFATAH MOULTON to and read back by:LUIS MIGUEL MARTINEZ SODIUM S/P/B 132(L) 136 - 145 MMOL/L 12/13/2023 6:52 AM CDT [facility] POTASSIUM S/P/B 4.1 3.5 - 5.1 MMOL/L 12/13/2023 6:52 AM CDT [facility] CHLORIDE S/P/B 101 97 - 115 MMOL/L 12/13/2023 6:52 AM CDT [facility] CO2 23.0 21 - 32 MMOL/L 12/13/2023 6:52 AM CDT [facility] CALCIUM S/P/B 9.0 8.5 - 10.1 MG/DL 12/13/2023 6:52 AM CDT [facility] ANION GAP 8.0 2 - 10 MMOL/L 12/13/2023 6:52 AM CDT [facility] BUN CREATININE RATIO 7.7 6 - 26 12/13/2023 6:52 AM CDT [facility] GFR ESTIMATE 10(L) >90 ML/MIN/1.7 3 M2 12/13/2023 6:52 AM CDT [facility] Comment: NOTE: eGFR is not calculated for patients <18 years of age or gender unknown. This is an estimated GFR calculation using the new CKD EPI creatinine equation without race and so does not require a correction factor for race. This estimated GFR should not be used for calculating drug doses. 12/13/2023 5:42 AM CDT Taj Chamorro MD LABORATORY Final R esult [facility] [address] [place] [address], * CT ABD+PEL W CON (12/12/2023 1:05 PM CDT) Anatomical Region Laterality Modality Abdomen Computed Tomogra phy 12/12/2023 1:27 PM CDT Impressions 12/12/2023 1:47 PM CDT IMPRESSION: 1. ??Genitourinary abnormalities as described. ??Clinical correlation required. ??See text. 2. ??Possible fecal impaction. 3. ??Redemonstrated cholelithiasis. Referred By: ?? Interpreted By: Cody Duong MD, 12/12/2023 1:27 PM Narrative 12/12/2023 1:47 PM CDT [facility] [address] [place], [place] [address] Examination: CT of the abdomen and pelvis [...] Procedure Note Cody Duong MD - 12/12/[address] [id number] Examination: CT of the abdomen and pelvis [...] Taj Chamorro MD CT Final R esult * (ABNORMAL) CBC W/DIFF AUTOMATED (12/12/2023 4:20 AM CDT) WBC 11.93(H) 4.5 - 11.0 x10'3/uL 12/12/2023 4:46 AM CDT [facility] RBC 3.06(L) 4.70 - 6.10 x10'6/uL 12/12/2023 4:46 AM CDT [facility] HGB 9.4(L) 14.0 - 18.0 G/DL 12/12/2023 4:46 AM CDT [facility] HCT 27.7(L) 43.0 - 54.0 % 12/12/2023 4:46 AM CDT [facility] MCV 90.5 80.0 - 94.0 FL 12/12/2023 4:46 AM CDT [facility] MCH 30.7 27.0 - 31.0 PG 12/12/2023 4:46 AM CDT [facility] MCHC 33.9 32.0 - 36.0 G/DL 12/12/2023 4:46 AM CDT [facility] RDW 14.4 11.5 - 14.5 % 12/12/2023 4:46 AM CDT [facility] PLT 411(H) 130 - 400 x10'3/uL 12/12/2023 4:46 AM CDT [facility] MPV 10.1 9.3 - 12.2 FL 12/12/2023 4:46 AM CDT [facility] DIFFERENTIAL TYPE MANUAL DIFFERENTIAL 12/12/2023 5:14 AM CDT [facility] SEG NEUTROPHILS 69 % 5:14 AM CDT [facility] LYMPHOCYTES 15 % 12/12/2023 5:14 AM CDT [facility] MONOCYTES 12 % 12/12/2023 5:14 AM CDT [facility] METAMYELOCYTES 2 % 12/12/2023 5:14 AM CDT [facility] MYELOCYTES 2 % 12/12/2023 5:14 AM CDT [facility] ABS. NEUTROPHILS 8.23(H) 1.80 - 7.70 x10'3/uL 12/12/2023 5:14 AM CDT [facility] ABS. LYMPHOCYTES 1.79 1.00 - 4.80 x10'3/uL 12/12/2023 5:14 AM CDT [facility] ABS. MONOCYTES 1.43(H) 0.30 - 0.82 x10'3/uL 12/12/2023 5:14 AM CDT [facility] ABS. METAMYELOCYTES 0.24(H) 0.00 x10'3/uL 12/12/2023 5:14 AM CDT [facility] ABS. MYELOCYTES 0.24(H) 0.00 x10'3/uL 12/12/2023 5:14 AM CDT [facility] RBC MORPHOLOGY SLIDE REVIEWED 2023 5:14 AM CDT [facility] TARGET CELLS 1+ 12/12/2023 5:14 AM CDT [facility] PLT EST. INCREASED 12/12/2023 5:14 AM CDT [facility] 12/12/2023 4:20 AM CDT us Taj Chamorro MD LABORATORY Final R esult [facility] [address] [place] [address], [place] [phone] * (ABNORMAL) BASIC METABOLIC PANEL (12/12/2023 4:20 AM CDT) GLUCOSE 117(H) 70 - 99 MG/DL 12/12/2023 5:10 AM CDT [facility] BUN 33(H) 7 - 18 MG/DL 12/12/2023 5:10 AM CDT [facility] CREATININE S/P/B 4.75(H) 0.7 - 1.3 MG/DL 12/12/2023 5:10 AM CDT [facility] SODIUM S/P/B 133(L) 136 - 145 MMOL/L 12/12/2023 5:10 AM CDT [facility] POTASSIUM S/P/B 3.9 3.5 - 5.1 MMOL/L 12/12/2023 5:10 AM CDT [facility] CHLORIDE S/P/B 102 97 - 115 MMOL/L 12/12/2023 5:10 AM CDT [facility] CO2 24.3 21 - 32 MMOL/L 12/12/2023 5:10 AM CDT [facility] CALCIUM S/P/B 9.2 8.5 - 10.1 MG/DL 12/12/2023 5:10 AM CDT [facility] ANION GAP 6.7 2 - 10 MMOL/L 12/12/2023 5:10 AM CDT [facility] BUN CREATININE RATIO 6.9 6 - 26 12/12/2023 5:10 AM CDT [facility] GFR ESTIMATE 13(L) >90 ML/MIN/1.7 3 M2 12/12/2023 5:10 AM CDT [facility] Comment: NOTE: eGFR is not calculated for patients <18 years of age or gender unknown. This is an estimated GFR calculation using the new CKD EPI creatinine equation without race and so does not require a correction factor for race. This estimated GFR should not be used for calculating drug doses. 12/12/2023 4:20 AM CDT us Taj Chamorro MD LABORATORY Final R esult [facility] [address] [place] [address], * Vancomycin Random Level (12/11/2023 5:20 AM CDT) VANCOMYCIN RANDOM 21.2 MCG/ML 12/11/2023 8:52 AM CDT [facility] Comment:NO THERAPEUTIC RANGE AVAILABLE VANCOMYCIN UNKNOWN 12/11/2023 8:34 AM CDT [facility] 12/11/2023 5:20 AM CDT Taj Chamorro MD LABORATORY Final R esult [facility] [address] [place] [address], [place] [phone] * (ABNORMAL) CBC W/DIFF AUTOMATED (12/11/2023 5:20 AM CDT) WBC 16.14(H) 4.5 - 11.0 x10'3/uL 12/11/2023 5:46 AM CDT [facility] RBC 3.08(L) 4.70 - 6.10 x10'6/uL 12/11/2023 5:46 AM CDT [facility] HGB 9.7(L) 14.0 - 18.0 G/DL 12/11/2023 5:46 AM CDT [facility] HCT 28.1(L) 43.0 - 54.0 % 12/11/2023 5:46 AM CDT [facility] MCV 91.2 80.0 - 94.0 FL 12/11/2023 5:46 AM CDT [facility] MCH 31.5(H) 27.0 - 31.0 PG 12/11/2023 5:46 AM CDT [facility] MCHC 34.5 32.0 - 36.0 G/DL 12/11/2023 5:46 AM CDT [facility] RDW 14.3 11.5 - 14.5 % 12/11/2023 5:46 AM CDT [facility] PLT 376 130 - 400 x10'3/uL 12/11/2023 5:46 AM CDT [facility] MPV 10.0 9.3 - 12.2 FL 12/11/2023 5:46 AM CDT [facility] DIFFERENTIAL TYPE MANUAL DIFFERENTIAL 12/11/2023 6:19 AM CDT [facility] SEG NEUTROPHILS 72 % 6:19 AM CDT [facility] LYMPHOCYTES 9 % 12/11/2023 6:19 AM CDT [facility] MONOCYTES 14 % 12/11/2023 6:19 AM CDT [facility] EOSINOPHILS 2 % 12/11/2023 6:19 AM CDT [facility] MYELOCYTES 3 % 12/11/2023 6:19 AM CDT [facility] ABS. NEUTROPHILS 11.62(H) 1.80 - 7.70 x10'3/uL 12/11/2023 6:19 AM CDT [facility] ABS. LYMPHOCYTES 1.45 1.00 - 4.80 x10'3/uL 12/11/2023 6:19 AM CDT [facility] ABS. MONOCYTES 2.26(H) 0.30 - 0.82 x10'3/uL 12/11/2023 6:19 AM CDT [facility] ABS. EOSINOPHILS 0.32 0.04 - 0.54 x10'3/uL 12/11/2023 6:19 AM CDT [facility] ABS. MYELOCYTES 0.48(H) 0.00 x10'3/uL 12/11/2023 6:19 AM T [facility] RBC MORPHOLOGY RBC MORPHOLOGY APPEARS NORMAL. SLIDE REVIEWED. 12/11/2023 6:19 AM CDT [facility] PLT EST. ADEQUATE 12/11/2023 6:19 AM CDT [facility] 12/11/2023 5:20 AM CDT Taj Chamorro MD LABORATORY Final R esult [facility] [address] [place] [address], * (ABNORMAL) BASIC METABOLIC PANEL (12/11/2023 5:20 AM CDT) GLUCOSE 134(H) 70 - 99 MG/DL 12/11/2023 6:11 AM CDT [facility] BUN 20(H) 7 - 18 MG/DL 12/11/2023 6:11 AM CDT [facility] CREATININE S/P/B 3.50(H) 0.7 - 1.3 MG/DL 12/11/2023 6:11 AM CDT [facility] SODIUM S/P/B 135(L) 136 - 145 MMOL/L 12/11/2023 6:11 AM CDT [facility] POTASSIUM S/P/B 3.3(L) 3.5 - 5.1 MMOL/L 12/11/2023 6:11 AM CDT [facility] CHLORIDE S/P/B 101 97 - 115 MMOL/L 12/11/2023 6:11 AM CDT [facility] CO2 25.1 21 - 32 MMOL/L 12/11/2023 6:11 AM CDT [facility] CALCIUM S/P/B 9.2 8.5 - 10.1 MG/DL 12/11/2023 6:11 AM CDT [facility] ANION GAP 8.9 2 - 10 MMOL/L 12/11/2023 6:11 AM CDT [facility] BUN CREATININE RATIO 5.7(L) 6 - 26 12/11/2023 6:11 AM CDT [facility] GFR ESTIMATE 18(L) >90 ML/MIN/1.7 3 M2 12/11/2023 6:11 AM CDT [facility] Comment: NOTE: eGFR is not calculated for patients <18 years of age or gender unknown. This is an estimated GFR calculation using the new CKD EPI creatinine equation without race and so does not require a correction factor for race. This estimated GFR should not be used for calculating drug doses. 12/11/2023 5:20 AM CDT Taj Chamorro MD LABORATORY Final R esult [facility] [address] [place] [address], * (ABNORMAL) URINE BACTERIA CULTURE (12/10/2023 4:10 PM CDT) SPEC DESCRIPTION URINE CLEAN CATCH 12/10/2023 4:22 PM CDT [facility] SPECIAL REQUESTS NO SPECIAL REQUEST 12/10/2023 4:22 PM CDT [facility] CULTURE RESULT 10,000-49,000 COL/ML KLEBSIELLA PNEUMONIAE (A) 12/13/2023 7:34 AM CDT [facility] CULTURE RESULT 10,000-49,000 COL/ML PSEUDOMONAS AERUGINOSA NOTE: ORGANISM MAY DEVELOP RESISTANCE AFTER 3 TO 4 DAYS OF THERAPY WITH THIRD GENERATION CEPHALOSPORINS . TESTING OF REPEAT ISOLATES MAY BE WARRANTED. (A) 12/13/2023 7:34 AM CDT [facility] CULTURE RESULT 50,000-100,000 COL/ML ENTEROCOCCUS SPECIES (A) 12/13/2023 7:34 AM CDT [facility] URINE SPECIMEN OBTAINED BY CLEAN CATCH PROCEDURE / Unknown 12/10/2023 4:10 PM CDT 12/10/2023 4:25 PM CDT Narrative Organism Antibiotic Method Susceptibility Klebsiella pneumoniae AMPICILLIN JOB (VITEK) >=32: Resistant Klebsiella pneumoniae AMPICILLIN/SULBACTAM JOB (VITEK) 4: Sensitive Klebsiella pneumoniae CEFTRIAXONE JOB (VITEK) <=1: Sensitive Klebsiella pneumoniae CEFTAZIDIME JOB (VITEK) <=1: Sensitive Klebsiella pneumoniae CEFAZOLIN JOB (VITEK) <=4: Sensitive Klebsiella pneumoniae ESBL JOB (VITEK) NEG: Sensitive Klebsiella pneumoniae NITROFURANTOIN JOB (VITEK) 32: Sensitive Klebsiella pneumoniae GENTAMICIN JOB (VITEK) <=1: Sensitive Klebsiella pneumoniae LEVOFLOXACIN JOB (VITEK) 0.25: Sensitive Klebsiella pneumoniae PIPRACIL/TAZO JOB (VITEK) <=4: Sensitive Klebsiella pneumoniae TRIMETH-SULFAMETH. JOB (VITEK) <=20: Sensitive Pseudomonas aeruginosa CEFTAZIDIME JOB (VITEK) 4: Sensitive Pseudomonas aeruginosa GENTAMICIN JOB (VITEK) 2: Sensitive Pseudomonas aeruginosa LEVOFLOXACIN JOB (VITEK) 1: Sensitive Pseudomonas aeruginosa PIPRACIL/TAZO JOB (VITEK) 8: Sensitive Enterococcus species AMPICILLIN JOB (VITEK) 8: Sensitive Enterococcus species NITROFURANTOIN JOB (VITEK) <=16: Sensitive Enterococcus species GENT. SYNERGY SCREEN JOB (VITEK) Sensitive Enterococcus species PENICILLIN G JOB (VITEK) 4: Sensitive us Taj Chamorro MD MICROBIOLOGY - GENERAL ORDERABLES Final Result [facility] [address] [place] [address], [place] [phone] * (ABNORMAL) BASIC METABOLIC PANEL (12/10/2023 5:42 AM CDT) [facility] GLUCOSE 99 70 - 99 MG/DL 12/10/2023 6:37 AM CDT [facility] BUN 29(H) 7 - 18 MG/DL 12/10/2023 6:37 AM CDT [facility] CREATININE S/P/B 4.26(H) 0.7 - 1.3 MG/DL 12/10/2023 6:37 AM CDT [facility] SODIUM S/P/B 131(L) 136 - 145 MMOL/L 12/10/2023 6:37 AM CDT [facility] POTASSIUM S/P/B 3.6 3.5 - 5.1 MMOL/L 12/10/2023 6:37 AM CDT [facility] CHLORIDE S/P/B 96(L) 97 - 115 MMOL/L 12/10/2023 6:37 AM CDT [facility] CO2 27.1 21 - 32 MMOL/L 12/10/2023 6:37 AM CDT [facility] CALCIUM S/P/B 9.2 8.5 - 10.1 MG/DL 12/10/2023 6:37 AM CDT [facility] ANION GAP 7.9 2 - 10 MMOL/L 12/10/2023 6:37 AM CDT [facility] BUN CREATININE RATIO 6.8 6 - 26 12/10/2023 6:37 AM T [facility] GFR ESTIMATE 15(L) >90 ML/MIN/1.7 3 M2 12/10/2023 6:37 AM T [facility] Comment: NOTE: eGFR is not calculated for patients <18 years of age or gender unknown. This is an estimated GFR calculation using the new CKD EPI creatinine equation without race and so does not require a correction factor for race. This estimated GFR should not be used for calculating drug doses. 12/10/2023 5:42 AM CDT us Chula Martinez NP LABORATORY Final Result [facility] [address] [place] [address], [place] [phone] * (ABNORMAL) CBC W/DIFF AUTOMATED (12/10/2023 4:20 AM CDT) [facility] WBC 20.74(H) 4.5 - 11.0 x10'3/uL 12/10/2023 5:24 AM CDT [facility] RBC 3.25(L) 4.70 - 6.10 x10'6/uL 12/10/2023 5:24 AM CDT [facility] HGB 10.1(L) 14.0 - 18.0 G/DL 12/10/2023 5:24 AM CDT [facility] HCT 29.6(L) 43.0 - 54.0 % 12/10/2023 5:24 AM CDT [facility] MCV 91.1 80.0 - 94.0 FL 12/10/2023 5:24 AM CDT [facility] MCH 31.1(H) 27.0 - 31.0 PG 12/10/2023 5:24 AM CDT [facility] MCHC 34.1 32.0 - 36.0 G/DL 12/10/2023 5:24 AM CDT [facility] RDW 14.1 11.5 - 14.5 % 12/10/2023 5:24 AM CDT [facility] PLT 385 130 - 400 x10'3/uL 12/10/2023 5:24 AM CDT [facility] MPV 10.5 9.3 - 12.2 FL 12/10/2023 5:24 AM CDT [facility] DIFFERENTIAL TYPE MANUAL DIFFERENTIAL 12/10/2023 5:41 AM CDT [facility] SEG NEUTROPHILS 77 % 5:41 AM CDT [facility] LYMPHOCYTES 9 % 12/10/2023 5:41 AM CDT [facility] MONOCYTES 11 % 12/10/2023 5:41 AM CDT [facility] EOSINOPHILS 1 % 12/10/2023 5:41 AM CDT [facility] BANDS 2 % 12/10/2023 5:41 AM CDT [facility] ABS. NEUTROPHILS 16.38(H) 1.80 - 7.70 x10'3/uL 12/10/2023 5:41 AM CDT [facility] ABS. LYMPHOCYTES 1.87 1.00 - 4.80 x10'3/uL 12/10/2023 5:41 AM CDT [facility] ABS. MONOCYTES 2.28(H) 0.30 - 0.82 x10'3/uL 12/10/2023 5:41 AM CDT [facility] ABS. EOSINOPHILS 0.21 0.04 - 0.54 x10'3/uL 12/10/2023 5:41 AM CDT [facility] RBC MORPHOLOGY SLIDE REVIEWED 2023 5:41 AM CDT [facility] TARGET CELLS 1+ 12/10/2023 5:41 AM CDT [facility] PLT EST. ADEQUATE 12/10/2023 5:41 AM CDT [facility] 12/10/2023 4:20 AM CDT us Chula Martinez NP LABORATORY Final Result [facility] [address] [place] [address], * URINE BACTERIA CULTURE (12/09/2023 10:06 AM CDT) SPEC DESCRIPTION URINE CLEAN CATCH 12/09/2023 9:11 AM CDT [facility] SPECIAL REQUESTS NO SPECIAL REQUEST 12/09/2023 9:11 AM CDT [facility] CULTURE RESULT MULTIPLE ORGANISMS PRESENT, PROBABLE CONTAMINATION . SUGGEST REPEAT CULTURE. 12/10/2023 11:41 AM CDT [facility] URINE SPECIMEN OBTAINED BY CLEAN CATCH PROCEDURE / Unknown 12/09/2023 10:06 AM CDT 12/09/2023 10:14 AM CDT us Taj Chamorro MD MICROBIOLOGY - GENERAL ORDERABLES Final Result [facility] [address] [place] [address], [place] [phone] * (ABNORMAL) URINALYSIS (12/09/2023 10:06 AM CDT) SPECIMEN TYPE URINE CLEAN CATCH 12/09/2023 10:07 AM CDT [facility] COLOR (U) ORANGE 12/09/2023 10:58 AM CDT [facility] TRANSPARENCY EXTREMELY TURBID 12/09/2023 10:58 AM CDT [facility] SPECIFIC GRAVITY (U) 1.018 1.001 - 1.030 12/09/2023 10:58 AM CDT [facility] U PH 7.0 5.0 - 9.0 12/09/2023 10:58 AM CDT [facility] LEUKOCYTES (U) 500(A) NEGATIVE 12/09/2023 10:58 AM CDT [facility] NITRITES NEGATIVE NEGATIVE 12/09/2023 10:58 AM CDT [facility] PROTEIN RANDOM (U) 200(H) <30 MG/DL 12/09/2023 10:58 AM CDT [facility] GLUCOSE (U) NORMAL NORMAL MG/DL 12/09/2023 10:58 AM CDT [facility] KETONES MG/DL (U) NEGATIVE NEGATIVE MG/DL 12/09/2023 10:58 AM CDT [facility] UROBILINOGEN 2.0(A) NORMAL MG/DL 12/09/2023 10:58 AM CDT [facility] BILIRUBIN (U) NEGATIVE NEGATIVE MG/DL 12/09/2023 10:58 AM CDT [facility] BLOOD (U) 2+(A) NEGATIVE 12/09/2023 10:58 AM CDT [facility] MUCUS MANY /LPF 12/09/2023 10:58 AM CDT [facility] WBC/HPF >100(H) <6 /HPF 12/09/2023 10:58 AM CDT [facility] RBC/HPF >100(H) <6 /HPF 12/09/2023 10:58 AM CDT [facility] BACTERIA (U) RARE(A) NONE /HPF 12/09/2023 10:58 AM CDT [facility] URINE SPECIMEN OBTAINED BY CLEAN CATCH PROCEDURE / Unknown 12/09/2023 10:06 AM CDT us Aman TRUJILLO URINE ORDERABLES Final Resu lt [facility] [address] [place] [address], * (ABNORMAL) BASIC METABOLIC PANEL (12/09/2023 4:49 AM CDT) GLUCOSE 126(H) 70 - 99 MG/DL 12/09/2023 5:40 AM CDT [facility] BUN 19(H) 7 - 18 MG/DL 12/09/2023 5:40 AM CDT [facility] CREATININE S/P/B 3.14(H) 0.7 - 1.3 MG/DL 12/09/2023 5:40 AM CDT [facility] SODIUM S/P/B 132(L) 136 - 145 MMOL/L 12/09/2023 5:40 AM CDT [facility] POTASSIUM S/P/B 3.8 3.5 - 5.1 MMOL/L 12/09/2023 5:40 AM CDT [facility] CHLORIDE S/P/B 98 97 - 115 MMOL/L 12/09/2023 5:40 AM CDT [facility] CO2 27.4 21 - 32 MMOL/L 12/09/2023 5:40 AM CDT [facility] CALCIUM S/P/B 9.1 8.5 - 10.1 MG/DL 12/09/2023 5:40 AM CDT [facility] ANION GAP 6.6 2 - 10 MMOL/L 12/09/2023 5:40 AM T [facility] BUN CREATININE RATIO 6.1 6 - 26 12/09/2023 5:40 AM T [facility] GFR ESTIMATE 21(L) >90 ML/MIN/1.7 3 M2 12/09/2023 5:40 AM T [facility] Comment: NOTE: eGFR is not calculated for patients <18 years of age or gender unknown. This is an estimated GFR calculation using the new CKD EPI creatinine equation without race and so does not require a correction factor for race. This estimated GFR should not be used for calculating drug doses. 12/09/2023 4:49 AM CDT us Chula Martinez NP LABORATORY Final Result [facility] [address] [place] [address], [place] [phone] * (ABNORMAL) CBC W/DIFF AUTOMATED (12/09/2023 4:49 AM CDT) [facility] WBC 19.51(H) 4.5 - 11.0 x10'3/uL 12/09/2023 5:14 AM CDT [facility] RBC 3.46(L) 4.70 - 6.10 x10'6/uL 12/09/2023 5:14 AM CDT [facility] HGB 10.7(L) 14.0 - 18.0 G/DL 12/09/2023 5:14 AM CDT [facility] HCT 31.5(L) 43.0 - 54.0 % 12/09/2023 5:14 AM CDT [facility] MCV 91.0 80.0 - 94.0 FL 12/09/2023 5:14 AM CDT [facility] MCH 30.9 27.0 - 31.0 PG 12/09/2023 5:14 AM CDT [facility] MCHC 34.0 32.0 - 36.0 G/DL 12/09/2023 5:14 AM CDT [facility] RDW 13.7 11.5 - 14.5 % 12/09/2023 5:14 AM CDT [facility] PLT 380 130 - 400 x10'3/uL 12/09/2023 5:14 AM CDT [facility] MPV 10.0 9.3 - 12.2 FL 12/09/2023 5:14 AM CDT [facility] DIFFERENTIAL TYPE MANUAL DIFFERENTIAL 12/09/2023 6:00 AM CDT [facility] SEG NEUTROPHILS 88 % 6:00 AM CDT [facility] LYMPHOCYTES 2 % 12/09/2023 6:00 AM CDT [facility] MONOCYTES 10 % 12/09/2023 6:00 AM CDT [facility] ABS. NEUTROPHILS 17.17(H) 1.80 - 7.70 x10'3/uL 12/09/2023 6:00 AM CDT [facility] ABS. LYMPHOCYTES 0.39(L) 1.00 - 4.80 x10'3/uL 12/09/2023 6:00 AM CDT [facility] ABS. MONOCYTES 1.95(H) 0.30 - 0.82 x10'3/uL 12/09/2023 6:00 AM CDT [facility] RBC MORPHOLOGY SLIDE REVIEWED 2023 6:00 AM CDT [facility] T[employer] CELLS 1+ 12/09/2023 6:00 AM CDT [facility] PLT EST. ADEQUATE 12/09/2023 6:00 AM CDT [facility] 12/09/2023 4:49 AM CDT us Chula Martinez NP LABORATORY Final Result [facility] [address] [place] [address], * MAGNESIUM (12/09/2023 4:49 AM CDT) MAGNESIUM 2.3 1.8 - 2.4 MG/DL 12/09/2023 5:40 AM CDT [facility] 12/09/2023 4:49 AM CDT us Chula Martinez NP LABORATORY Final Result Performing Organization Address [facility] Co de Phone Number [facility] [address] [place] [address], * HEPATITIS B POST-VACCINE ANTIBODY (12/08/2023 2:48 PM CDT) HEP B SURFACE AB 106.12 mIU/mL 12/08/2023 4:01 PM CDT [facility] Comment: REFERENCE RANGE >=12.00 PATIENT DOES HAVE IMMUNITY TO HEPATITIS B VIRUS 12/08/2023 2:48 PM CDT Enrique Jimenez MD LABORATORY Final Result Performing Organization Address [facility] Co de Phone Number [facility] [address] [place] [address], [place] [phone] * HEPATITIS B SURFACE AG, EIA (12/08/2023 2:48 PM CDT) HEPATITIS B SURFACE AG NON-REACTI VE NON-REACTI VE 12/08/2023 4:00 PM CDT [facility] 12/08/2023 2:48 PM CDT Enrique Jimenez MD LABORATORY Final Result Performing Organization Address [facility] Co de Phone Number [facility] [address] [place] [address], [place] [phone] * CT ABD+PEL WO CON (12/08/2023 10:37 AM CDT) Anatomical Region Laterality Modality Abdomen Computed Tomogra phy 12/08/2023 11:0 2 AM CDT Impressions 12/08/2023 11:41 AM CDT IMPRESSION: 1. ??Moderate bilateral renal edema, perinephric stranding, renal pelvis and ureteral wall thickening, and urinary bladder wall thickening. Findings could be consistent with urinary tract infection and certainly pyelonephritis is not excluded without intravenous contrast. Bilateral ureteral stents. Mild bilateral hydronephrosis. Recommend correlation with urinalysis. 2. Mild opacities in the right lower lobe and minimal opacities in the left lower lobe suggesting infiltrate and subsegmental atelectasis. Very small bilateral pleural effusions. 3. Dependent density in the gallbladder suggesting noncalcified stones and/or sludge. Minimal distention of the superior common bile duct. 4. No apparent bowel obstruction. Ordered By: AMAN LOCKWOOD Interpreted By: Zeb Gutierrez, 12/08/2023 11:02 AM Narrative 12/08/2023 11:41 AM CDT [place] [address] IMAGING STUDIES: ??CT ABD+PEL WO CON ? DATE: ??12/08/2023 10:32 AM HISTORY: ??flank pain, recent ureteral stents ? 68-year-old male. History of end-stage renal disease on hemodialysis. Lower abdominal discomfort increasing over the past several days. Patient reports recent placement of bilateral ureteral stents. A urinary catheter placed for urinary retention was removed approximately one week ago. Patient reports he can urinate. COMPARISON: ??Chest portable 08/06/2023. Bilateral hips 05/31/2020. DISCUSSION: CT abdomen and pelvis without intravenous contrast. Coronal and sagittal reconstructions. No enteric contrast. Automated exposure control with radiation dose reduction techniques were used. CHEST: Mild infiltrate and subsegmental atelectasis in the right lower lobe and minimal infiltrate and subsegmental atelectasis in the left lower lobe. Very small bilateral pleural effusions. CARDIOVASCULAR: Heart size is normal. No pericardial effusion. No abdominal aortic aneurysm. ??Atherosclerotic calcification of the aorta, aortic branch arteries, iliac arteries, and femoral arteries. UPPER ABDOMEN: Dependent densities in the moderately distended gallbladder suggesting noncalcified gallstones and/or sludge. No appreciable gallbladder wall thickening to suggest acute cholecystitis. Minimal distention of the superior common bile duct up to 7 mm but tapering toward the ampulla. No calcifications within the common bile duct. No apparent acute abnormality of the unopacified liver, pancreas, spleen, and adrenal glands. GENITOURINARY: Limited evaluation for renal lesions given lack of intravenous contrast. No renal calcifications. Moderate bilateral renal edema and perinephric stranding. Probable mild bilateral hydronephrosis. Bilateral ureteral stents. Right ureteral stent with superior retention coil in the inferior renal pelvis and distal retention coil in the left urinary bladder. Left ureteral stent in the inferior renal pelvis or dilated proximal ureter with distal retention coil in the right urinary bladder. General edema/stranding and wall thickening in the bilateral renal pelvis and ureters. Mild fluid in the urinary bladder. Generalized urinary bladder wall thickening and most pronounced anteriorly of up to approximately 17 mm wall thickness. No bladder calcification. No appreciable urinary bladder lumen fluid hyperdensity/blood products. LYMPHATIC: No apparent pathologic adenopathy given limitations of noncontrast study. GASTROINTESTINAL: No apparent bowel obstruction. Evaluation for bowel inflammation is limited without intravenous contrast. ??No apparent free fluid in the abdomen or pelvis. MUSCULOSKELETAL: Multiple old healed posterior right rib fractures. Spinal degenerative changes most prominent at the facets of the mid to lower lumbar spine. Severe degenerative changes at the right hip with sclerotic and cystic changes of the acetabulum and femoral head and partial collapse of the femoral head cortex. Sclerotic changes of the left femoral head. 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 Procedure Note Zeb Gutierrez MD - 12/08/[address] [address] IMAGING STUDIES: CT ABD+PEL WO CONDATE: 12/08/2023 10:32 AM HISTORY: flank pain, recent ureteral stents 68-year-old male. Historyof end- stage renal disease on hemodialysis. Lower abdominal discomfortincreasing over the past several days. Patient reports recent placement ofbilateral ureteral stents. A urinary catheter placed for urinary retentionwas removed approximately one week ago. Patient reports he can urinate. COMPARISON: Chest portable 08/06/2023. Bilateral hips 05/31/2020. DISCUSSION: CT abdomen and pelvis without intravenous contrast. Coronal and sagittalreconstructions. No enteric contrast. Automated exposure control withradiation dose reduction techniques were used. CHEST: Mild infiltrate and subsegmental atelectasis in the right lowerlobe and minimal infiltrate and subsegmental atelectasis in the left lowerlobe. Very small bilateral pleural effusions. CARDIOVASCULAR: Heart size is normal. No pericardial effusion. Noabdominal aortic aneurysm. Atherosclerotic calcification of the aorta,aortic branch arteries, iliac arteries, and femoral arteries. UPPER ABDOMEN: Dependent densities in the moderately distended gallbladdersuggesting noncalcified gallstones and/or sludge. No appreciablegallbladder wall thickening to suggest acute cholecystitis. Minimaldistention of the superior common bile duct up to 7 mm but tapering towardthe ampulla. No calcifications within the common bile duct. No apparent acute abnormality of the unopacified liver, pancreas, spleen,and adrenal glands. GENITOURINARY: Limited evaluation for renal lesions given lack ofintravenous contrast. No renal calcifications. Moderate bilateral renaledema and perinephric stranding. Probable mild bilateral hydronephrosis.Bilateral ureteral stents. Right ureteral stent with superior retentioncoil in the inferior renal pelvis and distal retention coil in the lefturinary bladder. Left ureteral stent in the inferior renal pelvis ordilated proximal ureter with distal retention coil in the right urinarybladder. General edema/stranding and wall thickening in the bilateralrenal pelvis and ureters. Mild fluid in the urinary bladder. Generalized urinary bladder wallthickening and most pronounced anteriorly of up to approximately 17 mmwall thickness. No bladder calcification. No appreciable urinary bladderlumen fluid hyperdensity/blood products. LYMPHATIC: No apparent pathologic adenopathy given limitations ofnoncontrast study. GASTROINTESTINAL: No apparent bowel obstruction. Evaluation for bowelinflammation is limited without intravenous contrast. No apparent freefluid in the abdomen or pelvis. MUSCULOSKELETAL: Multiple old healed posterior right rib fractures. Spinaldegenerative changes most prominent at the facets of the mid to lowerlumbar spine. Severe degenerative changes at the right hip with scleroticand cystic changes of the acetabulum and femoral head and partial collapseof the femoral head cortex. Sclerotic changes of the left femoral head.Findings remain suggestive of avascular necrosis at the right hip anddeveloped avascular necrosis of the left femoral head. IMPRESSION: 1. Moderate bilateral renal edema, perinephric stranding, renal pelvisand ureteral wall thickening, and urinary bladder wall thickening.Findings could be consistent with urinary tract infection and certainlypyelonephritis is not excluded without intravenous contrast. Bilateralureteral stents. Mild bilateral hydronephrosis. Recommend correlation withurinalysis. 2. Mild opacities in the right lower lobe and minimal opacities in theleft lower lobe suggesting infiltrate and subsegmental atelectasis. Verysmall bilateral pleural effusions. 3. Dependent density in the gallbladder suggesting noncalcified stonesand/or sludge. Minimal distention of the superior common bile duct. 4. No apparent bowel obstruction. Ordered By: AMAN LOCKWOOD Interpreted By: Zeb Gutierrez, 12/08/2023 11:[address] Final Resul t * LACTIC ACID W REFLEX (SEPSIS) (12/08/2023 9:33 AM CDT) Pathologist [facility] LACTIC ACID VENOUS 1.0 0.4 - 2.0 MMOL/L 12/08/2023 10:19 AM CDT [facility] 12/08/2023 9:33 AM CDT [facility] Final Resul t [facility] [address] [place] [address], [place] [phone] * (ABNORMAL) PROCALCITONIN (PCT) (12/08/2023 8:57 AM CDT) Procalcitonin 18.89(H) 0.00 - 0.49 NG/ML 12/08/2023 3:10 PM CDT [facility] 12/08/2023 8:57 AM CDT Chula Martinez NP LABORATORY Final Result Performing Organization Address City/[facility] Co de Phone Number [facility] [address] [place] [address], * TROPONIN, QUANT (12/08/2023 8:57 AM CDT) TROPONIN I HIGH SENSITIVITY 4 <79 ng/L 12/08/2023 9:55 AM CDT [facility] Comment: HIGH DOSES OF BIOTIN, TROPONIN-SPECIFIC AUTOANTIBODIES, AND ANTIBODY THERAPY CONTAINING HAMA MAY INTERFERE WITH THIS TEST RESULT. CORRELATION TO CLINICAL HISTORY AND PRESENTATION RECOMMENDED. 12/08/2023 8:57 AM CDT [facility] Final Resul t Performing Organization Address [facility] Co de Phone Number [facility] [address] [place] [address], * (ABNORMAL) LIPASE (12/08/2023 8:57 AM CDT) LIPASE 8(L) 13 - 75 UNITS/L 12/08/2023 9:55 AM CDT [facility] 12/08/2023 8:57 AM CDT [facility] Final Resul t Performing Organization Address City/[facility]/ZIP Co de Phone Number [facility] [address] [place] [address], [place] [phone] * (ABNORMAL) COMPREHENSIVE METABOLIC PANEL (12/08/2023 8:57 AM CDT) [facility] GLUCOSE 100(H) 70 - 99 MG/DL 12/08/2023 9:55 AM CDT [facility] BUN 34(H) 7 - 18 MG/DL 12/08/2023 9:55 AM CDT [facility] CREATININE S/P/B 4.69(H) 0.7 - 1.3 MG/DL 12/08/2023 9:55 AM CDT [facility] SODIUM S/P/B 129(L) 136 - 145 MMOL/L 12/08/2023 9:55 AM CDT [facility] POTASSIUM S/P/B 3.9 3.5 - 5.1 MMOL/L 12/08/2023 9:55 AM CDT [facility] Comment:SLIGHT HEMOLYSIS, RE SULT MAY BE AFFECTED. CHLORIDE S/P/B 91(L) 97 - 115 MMOL/L 12/08/2023 9:55 AM CDT [facility] CO2 25.8 21 - 32 MMOL/L 12/08/2023 9:55 AM CDT [facility] CALCIUM S/P/B 9.1 8.5 - 10.1 MG/DL 12/08/2023 9:55 AM T [facility] BILIRUBIN TOTAL S/P/B 0.6 0.2 - 1.2 MG/DL 12/08/2023 9:55 AM T [facility] Comment: THIS ASSAY IS NOT RECOMMENDED FOR PATIENTS UNDERGOING TREATMENT WITH ELTROMBOPAG DUE TO THE POTENTIAL FOR FALSELY ELEVATED RESULTS. TOTAL PROTEIN S/P/B 7.8 6.4 - 8.2 G/DL 12/08/2023 9:55 AM CDT [facility] ALBUMIN S/P/B 2.0(L) 3.4 - 5.0 G/DL 12/08/2023 9:55 AM CDT [facility] AST 20 15 - 37 U/L 12/08/2023 9:55 AM CDT [facility] Comment:SLIGHT HEMOLYSIS, RE SULT MAY BE AFFECTED. ALT 12(L) 16 - 60 U/L 12/08/2023 9:55 AM CDT [facility] ALKALINE PHOSPHATASE S/P/B 111 50 - 136 U/L 12/08/2023 9:55 AM CDT [facility] ANION GAP 12.2(H) 2 - 10 MMOL/L 12/08/2023 9:55 AM CDT [facility] BUN CREATININE RATIO 7.2 6 - 26 12/08/2023 9:55 AM CDT [facility] A/G RATIO 0.3(L) 1.0 - 2.0 RATIO 12/08/2023 9:55 AM CDT [facility] GFR ESTIMATE 13(L) >90 ML/MIN/1.7 3 M2 12/08/2023 9:55 AM CDT [facility] Comment: NOTE: eGFR is not calculated for patients <18 years of age or gender unknown. This is an estimated GFR calculation using the new CKD EPI creatinine equation without race and so does not require a correction factor for race. This estimated GFR should not be used for calculating drug doses. 12/08/2023 8:57 AM CDT [facility] Final Resul t [facility] [address] [place] [address], * (ABNORMAL) CBC W/DIFF AUTOMATED (12/08/2023 8:57 AM CDT) WBC 24.08(H) 4.5 - 11.0 x10'3/uL 12/08/2023 9:14 AM CDT [facility] RBC 3.52(L) 4.70 - 6.10 x10'6/uL 12/08/2023 9:14 AM CDT [facility] HGB 11.0(L) 14.0 - 18.0 G/DL 12/08/2023 9:14 AM CDT [facility] HCT 31.5(L) 43.0 - 54.0 % 12/08/2023 9:14 AM CDT [facility] MCV 89.5 80.0 - 94.0 FL 12/08/2023 9:14 AM CDT [facility] MCH 31.3(H) 27.0 - 31.0 PG 12/08/2023 9:14 AM CDT [facility] MCHC 34.9 32.0 - 36.0 G/DL 12/08/2023 9:14 AM CDT [facility] RDW 13.4 11.5 - 14.5 % 12/08/2023 9:14 AM CDT [facility] PLT 460(H) 130 - 400 x10'3/uL 12/08/2023 9:14 AM CDT [facility] MPV 9.9 9.3 - 12.2 FL 12/08/2023 9:14 AM CDT [facility] DIFFERENTIAL TYPE MANUAL DIFFERENTIAL 12/08/2023 9:51 AM CDT [facility] SEG NEUTROPHILS 86 % 9:51 AM CDT [facility] LYMPHOCYTES 5 % 12/08/2023 9:51 AM CDT [facility] MONOCYTES 4 % 12/08/2023 9:51 AM CDT [facility] BANDS 5 % 12/08/2023 9:51 AM CDT [facility] ABS. NEUTROPHILS 21.91(H) 1.80 - 7.70 x10'3/uL 12/08/2023 9:51 AM CDT [facility] ABS. LYMPHOCYTES 1.20 1.00 - 4.80 x10'3/uL 12/08/2023 9:51 AM CDT [facility] ABS. MONOCYTES 0.96(H) 0.30 - 0.82 x10'3/uL 12/08/2023 9:51 AM CDT [facility] RBC MORPHOLOGY SLIDE REVIEWED 2023 9:51 AM CDT [facility] POIKLO 1+ 12/08/2023 9:51 AM CDT [facility] TARGET CELLS 1+ 12/08/2023 9:51 AM CDT [facility] PLT EST. INCREASED 12/08/2023 9:51 AM CDT [facility] 12/08/2023 8:57 AM CDT [facility] Final Resul t [facility] [address] [place] [id number], * ECG 12 lead (12/08/2023 8:56 AM CDT) 12/08/2023 8:[address] [facility] - 12/09/2023 9:42 AM CDT ?[facility] ? [address], [place] ? Test Date: ?2023-12-08 Pat Name: ? MAN BYRON ? Department: ?? 41 ? Room: ? A521 Gender: ? M ?Advertisement Compositor: ?? : ?1955 ? Requested By: AMAN LOCKWOOD Order Number: [id number] ? Reading MD: ?? Castro Ochieng ? Measurements Intervals ?[place] ? Rate: ? 106 ?P: ?67 AL: ? 153 ?QRS: ?9 QRSD: ? 71 ? T: ?43 QT: ? 320 ? QTc: ?425 ? Interpretive Statements SINUS TACHYCARDIA POSSIBLE LEFT ATRIAL ENLARGEMENT [-0.1mV P WAVE IN V1/V2] Poor R Wave Progression NONSPECIFIC T-WAVE ABNORMALITY ABNORMAL RHYTHM ECG Compared to ECG 08/06/2023 10:53:39 Poor R Wave Progression now present Sinus tachycardia now present Procedure Note Castro Mercado MD - 12/09/[address] [facility] [address] Test Date: 2023-12-08 Pat Name: AIME MATTHEWS Department: Room: 21 Gender: M Advertisement Compositor: : 1955 Requested By: AMAN LOCKWOOD Order Number: [id number] Reading MD: Castro Mercado Measurements Intervals [place] Rate: 106 P: 67 AL: 153 QRS: 9 QRSD: 71 T: 43 QT: 320 QTc: 425 Interpretive Statements SINUS TACHYCARDIA POSSIBLE LEFT ATRIAL ENLARGEMENT [-0.1mV P WAVE IN V1/V2] Poor R Wave Progression NONSPECIFIC T-WAVE ABNORMALITY ABNORMAL RHYTHM ECG Compared to ECG 08/06/2023 10:53:39 Poor R Wave Progression now present Sinus tachycardia now present us [facility] ECG ORDERABLES Final Resul t [facility] ([facility] documented in this encounter Visit Diagnoses Diagnosis Pyelonephritis- Primary Pyelonephritis, unspecified Pyelonephritis Pyelonephritis, unspecified ESRD (end stage renal disease) ([facility]) End stage renal disease documented in this encounter Admitting Diagnoses Diagnosis Pyelonephritis Pyelonephritis, unspecified documented in this encounter Administered Medications Inactive Administered Medications - up to 3 most recent administrations Medication Order MAR Action Action Date Dose Rate Site acetaminophen (TYLENOL) tablet 650 mg 650 mg, Oral, Every 4 hours PRN, Mild pain (Scale 1 - 3), Starting on Wed12/08/23 at 1426, Until Wed12/14/23 at 1542, Maximum dose of acetaminophen is 4000 mg from all sources in 24 hours. Given 12/08/2023 9:11 PM CDT 650 mg albuterol sulfate HFA 108 (90 Base) MCG/ACT inhaler 2 puff 2 puff, Inhalation, Every 4 hours PRN, Wheezing, Shortness of breath, Starting on Wed12/08/23 at 1426, Until Wed12/14/23 at 1542 ampicillin-sulbactam (UNASYN) 3 g in sodium chloride 0.9 % 100 mL IVPB 3 g, Intravenous, at 216 mL/hr, Every 12 hours, First dose on Wed12/13/23 at 1130, Until Discontinued, Per P&T approved renal dosing protocol administer every 12 hours with 2nd dose given after HD New Bag 12/14/2023 2:35 AM CDT 3 g 216 mL/ hr New Bag 12/13/2023 2:46 PM CDT 3 g 216 mL/hr azithromycin (ZITHROMAX) tablet 500 mg 500 mg, Oral, Daily, 3 doses, First dose on Wed12/08/23 at 1500, Last dose on Wed12/10/23 at 0900 Given 12/10/2023 8:11 AM CDT 500 mg Given 12/09/2023 9:35 AM CDT 500 mg bisacodyl (DULCOLAX) suppository 10 mg 10 mg, Rectal, Daily as needed, Constipation, Starting on 12/12/23 at 1429, Until Wed12/14/23 at 1542 calcium carbonate (TUMS) chewable tablet 500 mg 500 mg, Oral, Daily as needed, Indigestion, Starting on Ibeth 12/09/23 at 0133, Until Wed12/14/23 at 1542 Given 12/14/2023 2:35 AM CDT 500 mg Given 12/09/2023 2:12 AM CDT 500 mg ceFEPIme (MAXIPIME) 1 g in sodium chloride 0.9 % 50 mL IVPB 1 g, Intravenous, Administer over 240 Minutes, Every 24 hours, First dose (after last modification) on Wed12/11/23 at 1500, Until Discontinued, Administer over 4 hours (extended infusion) New Bag 12/11/2023 4:44 PM CDT 1 g 12.5 mL/hr ceFEPIme (MAXIPIME) 2 g in sodium chloride 0.9 % 100 mL IVPB 2 g, Intravenous, Administer over 30 Minutes, Once, 1 dose, On Wed12/10/23 at 0915, Administer over 30 minutes. New Bag 12/10/2023 12:38 PM CDT 2 g 200 mL/hr cefTRIAXone (ROCEPHIN) 1 g in sodium chloride 0.9 % 50 mL IVPB 1 g, Intravenous, at 100 mL/hr, Once, 1 dose, On Wed12/08/23 at 1200 New Bag 12/08/2023 12:26 PM CDT 1 g 100 mL/hr cefTRIAXone (ROCEPHIN) 1 g in sodium chloride 0.9 % 50 mL IVPB 1 g, Intravenous, at 100 mL/hr, Every 24 hours, First dose on Wed12/09/23 at 0900, Until Discontinued New 12/09/2023 9:38 AM CDT 1 g 100 mL/hr cefTRIAXone (ROCEPHIN) 1 g in sodium chloride 0.9 % 50 mL IVPB 1 g, Intravenous, at 100 mL/hr, Every 24 hours, First dose on Wed12/12/23 at 1700, Until Discontinued New 12/12/2023 4:19 PM CDT 1 g 100 mL/hr guaiFENesin ER (MUCINEX) 12 hr tablet 600 mg 600 mg, Oral, Once, 1 dose, On Wed12/13/23 at 1745, Do not break, chew, or crush. Given 12/13/2023 5:23 PM CDT 600 mg guaiFENesin ER (MUCINEX) 12 hr tablet 600 mg 600 mg, Oral, 2 times daily, First dose on Wed12/14/23 at 0900, Until Discontinued, Do not break, chew, or crush. Given 12/14/2023 8:07 AM CDT 600 mg heparin (porcine) injection 1,300-2,400 Units 1,300-2,400 Units, Intravenous, As needed, Other, each lumen for catheter care, 2 doses, Starting on Wed12/08/23 at 1842, Until Wed12/08/23 at 2006, For Dialysis Only, Dialysis Given 12/08/2023 8:06 PM CDT 2,100 Units Given 12/08/2023 8:05 PM CDT 2,200 Units heparin (porcine) injection 5,000 Units 5,000 Units, Subcutaneous, Every 12 hours scheduled (2 times per day), First dose on Wed12/08/23 at 2100, Until Discontinued Given 12/14/2023 8:07 AM CDT 5,000 Units Left Lower Abdomen Given 12/13/2023 9:23 PM CDT 5,000 Units R ight Lower Abdomen Given 12/12/2023 8:33 AM CDT 5,000 Units L eft Arm HYDROcodone-acetaminophen (NORCO) 5-325 MG tablet 1 tablet 1 tablet, Oral, Every 4 hours PRN, Moderate pain (Scale 4 - 7), Starting on Wed12/08/23 at 1426, Until Wed12/14/23 at 1542, Maximum dose of acetaminophen is 4000 mg from all sources in 24 hours. Given 12/13/2023 3:26 PM CDT 1 tablet Given 12/13/2023 5:52 AM CDT 1 tablet Given 12/12/2023 4:28 PM CDT 1 tablet HYDROmorphone (DILAUDID) injection 0.2 mg 0.2 mg, Intravenous, Every 2 hours PRN, Severe pain (Scale 8 - 10), Starting on Ibeth 12/09/23 at 1531, Until Wed12/14/23 at 1542, Administer slowly over at least 2-3 minutes. Given 12/11/2023 7:59 PM CDT 0.2 mg Given 12/10/2023 3:53 PM CDT 0.2 mg Given 12/10/2023 12:41 PM CDT 0.2 mg influenza vaccine (FLUZONE) injection 0.5 mL 0.5 mL, Intramuscular, Prior to discharge, Other, immunization, 1 dose, Starting on Wed12/08/23 at 2206, Until Wed12/14/23 at 1542, Please give vaccine prior to discharge. iopamidol (ISOVUE-370) 76 % injection 100 mL 100 mL, Intravenous, IMG once as needed, Contrast, 1 dose, Starting on Wed12/12/23 at 1255, Until Wed12/12/23 at 1256 Given 12/12/2023 12:56 PM CDT 100 mLs levoFLOXacin (LEVAQUIN) IVPB 500 mg 500 mg, Intravenous, at 100 mL/hr, Every 24 hours, First dose on Wed12/15/23 at 0900, Until Discontinued, 750 mg x1 then 500 mg every 48 hours per P&T approved renal dosing protocol levoFLOXacin (LEVAQUIN) IVPB 750 mg 750 mg, Intravenous, at 100 mL/hr, Once, 1 dose, On Wed12/13/23 at 1100, 750 mg x1 then 500 mg every 48 hours per P&T approved renal dosing protocol New Bag 12/13/2023 12:42 PM CDT 750 mg 100 mL/hr lidocaine 2 % URO-JET jelly Topical, Once, 1 dose, On Wed12/10/23 at 1530 Given 12/10/2023 3:53 PM CDT 10 mLs melatonin tablet 3 mg 3 mg, Oral, Nightly at bedtime, First dose on Wed12/09/23 at 0200, Until Discontinued Given 12/13/2023 9:23 PM CDT 3 mg Given 12/12/2023 9:59 PM CDT 3 mg Given 12/11/2023 7:58 PM CDT 3 mg morphine injection 4 mg 4 mg, Intravenous, Once, 1 dose, On Wed12/08/23 at 1030 Given 12/08/2023 10:47 AM CDT 4 mg naLOXone (NARCAN) injection 0.4 mg 0.4 mg, Intravenous, As needed, Opioid reversal, Starting on Wed12/08/23 at 1426, Until Wed12/14/23 at 1542 ondansetron (ZOFRAN) injection 4 mg 4 mg, Intravenous, Every 8 hours PRN, Nausea, Vomiting, Starting on Wed12/08/23 at 1426, Until Wed12/14/23 at 1542, IV push over 2-5 minutes. Given 12/14/2023 9:16 AM CDT 4 mg polyethylene glycol (GLYCOLAX) packet 17 g 17 g, Oral, Daily, First dose (after last modification) on Wed12/12/23 at 1445, Until Discontinued, If both senna and polyethylene glycol are ordered, use 1st; if no response by next dosing interval, go to next option. Given 12/12/2023 4:19 PM CDT 17 g potassium chloride CR (K-TAB) tablet 40 mEq 40 mEq, Oral, Once, 1 dose, On 12/11/23 at 1000, Do not break, chew, or crush. Given 12/11/2023 12:08 PM CDT 40 mEq Senna (SENOKOT) 8.6 MG tablet 8.6 mg 8.6 mg, Oral, Nightly at bedtime, First dose (after last modification) on 12/11/23 at 2100, Until Discontinued, If both senna and polyethylene glycol are ordered, use as 2nd choice. Given 12/11/2023 7:58 PM CDT 8.6 mg vancomycin (VANCOCIN) 1,250 mg in sodium chloride 0.9 % 250 mL IVPB 1,250 mg, Intravenous, at 175 mL/hr, Once, 1 dose, On Wed12/10/23 at 0930 New Bag 12/10/2023 1:17 PM CDT 1,250 mg 175 mL/hr documented in this encounter Active and Recently Administered Medications Times are shown in CDT. Scheduled Medication Order 12/12/2023 12/13/2023 12/14/2023 ampicillin-sulbactam (UNASYN) 3 g in sodium chloride 0.9 % 100 mL IVPB 3 g, Intravenous, at 216 mL/hr, Every 12 hours, First dose on 12/13/23 at 1130, Until Discontinued, Per P&T approved renal dosing protocol administer every 12 hours with 2nd dose given after HD 1304 (Not Given - Provider: Hilda Martinez RN - Reason: Schedule Changed)1446 (New Bag - Provider: Hilda Martinez RN)1526 (Infusion Stop Time - Provider: Hilda Martinez RN) 0235 (New Bag - Provider: Missy Guerrier, BHARGAVI)0316 (Infusion Stop Time - Provider: Missy Guerrier RN)1400 (Canceled Entry - Provider: Automatic Discharge Provider - Comment: Automatically canceled at discontinue of medication order) cefTRIAXone (ROCEPHIN) 1 g in sodium chloride 0.9 % 50 mL IVPB (CANCELED) 1 g, Intravenous, at 100 mL/hr, Every 24 hours, First dose on Wed12/12/23 at 1700, Until Discontinued 1619 (New Bag - Provider: Andrzej Scott, BHARGAVI)1649 (Infusion Stop Time - Provider: Andrzej Scott RN) guaiFENesin ER (MUCINEX) 12 hr tablet 600 mg (COMPLETED) 600 mg, Oral, Once, 1 dose, On Wed12/13/23 at 1745, Do not break, chew, or crush. 1723 (Given - Provider: Hilda Martinez RN) guaiFENesin ER (MUCINEX) 12 hr tablet 600 mg 600 mg, Oral, 2 times daily, First dose on Wed12/14/23 at 0900, Until Discontinued, Do not break, chew, or crush. 0807 (Given - Provider: Miki Watts, BHARGAVI) heparin (porcine) injection 5,000 Units(Linked Group 1) 5,000 Units, Subcutaneous, Every 12 hours scheduled (2 times per day), First dose on Wed12/08/23 at 2100, Until Discontinued 08 (Given - Provider: Andrzej Scott RN)2126 (Not Given - Provider: Missy Guerrier RN - Reason: Patient/family declined) 0837 (Hold - Provider: Hilda Martinez RN - Reason: Not in room)2122 (Given - Provider: Missy Guerrier, BHARGAVI) 08 (Given - Provider: Miki Watts, BHARGAVI) levoFLOXacin (LEVAQUIN) IVPB 500 mg 500 mg, Intravenous, at 100 mL/hr, Every 24 hours, First dose on Wed12/15/23 at 0900, Until Discontinued, 750 mg x1 then 500 mg every 48 hours per P&T approved renal dosing protocol levoFLOXacin (LEVAQUIN) IVPB 750 mg (COMPLETED) 750 mg, Intravenous, at 100 mL/hr, Once, 1 dose, On Wed12/13/23 at 1100, 750 mg x1 then 500 mg every 48 hours per P&[employer] approved renal dosing protocol 1242 (New Bag - Provider: Hilda Martinez RN)1434 (Infusion Stop Time - Provider: Hilda Martinez RN) melatonin tablet 3 mg 3 mg, Oral, Nightly at bedtime, First dose on Wed12/09/23 at 0200, Until Discontinued 2158 (Given - Provider: Missy Guerrier RN) 2122 (Given - Provider: Missy Guerrier RN) polyethylene glycol (GLYCOLAX) packet 17 g 17 g, Oral, Daily, First dose (after last modification) on Wed12/12/23 at 1445, Until Discontinued, If both senna and polyethylene glycol are ordered, use 1st; if no response by next dosing interval, go to next option. 161 (Given - Provider: Andrzej Scott RN) 0836 (Hold - Provider: Hilda Martinez RN - Reason: Contraindicated - Comment: diarrhea x2 overnight) 08 (Not Given - Provider: Miki Watts RN - Reason: Patient/family declined) Senna (SENOKOT) 8.6 MG tablet 8.6 mg 8.6 mg, Oral, Nightly at bedtime, First dose (after last modification) on 12/11/23 at 2100, Until Discontinued, If both senna and polyethylene glycol are ordered, use as 2nd choice. 2199 (Not Given - Provider: Missy Guerrier RN - Reason: Patient/family declined) 2102 (Not Given - Provider: Missy Guerrier RN - Reason: Patient/family declined) PRN Medication Order 12/12/2023 12/13/2023 12/14/2023 acetaminophen (TYLENOL) tablet 650 mg 650 mg, Oral, Every 4 hours PRN, Mild pain (Scale 1 - 3), Starting on Wed12/08/23 at 1426, Until Wed12/14/23 at 1542, Maximum dose of acetaminophen is 4000 mg from all sources in 24 hours. albuterol sulfate HFA 108 (90 Base) MCG/ACT inhaler 2 puff 2 puff, Inhalation, Every 4 hours PRN, Wheezing, Shortness of breath, Starting on Wed12/08/23 at 1426, Until Wed12/14/23 at 1542 bisacodyl (DULCOLAX) suppository 10 mg 10 mg, Rectal, Daily as needed, Constipation, Starting on Wed12/12/23 at 1429, Until Wed12/14/23 at 1542 calcium carbonate (TUMS) chewable tablet 500 mg 500 mg, Oral, Daily as needed, Indigestion, Starting on Ibeth 12/09/23 at 0133, Until Wed12/14/23 at 1542 0235 (Given - Provider: Missy Guerrier, BHARGAVI) HYDROcodone-acetaminophe n (NORCO) 5-325 MG tablet 1 tablet 1 tablet, Oral, Every 4 hours PRN, Moderate pain (Scale 4 - 7), Starting on Wed12/08/23 at 1426, Until Wed12/14/23 at 1542, Maximum dose of acetaminophen is 4000 mg from all sources in 24 hours. 0425 (Given - Provider: Yvette Holder RN)1628 (Given - Provider: Andrzej Scott, BHARGAVI) 0552 (Given - Provider: Missy Guerrier, BHARGAVI)1526 (Given - Provider: Hilda Martinez, BHARGAVI) HYDROmorphone (DILAUDID) injection 0.2 mg 0.2 mg, Intravenous, Every 2 hours PRN, Severe pain (Scale 8 - 10), Starting on Ibeth 12/09/23 at 1531, Until Wed12/14/23 at 1542, Administer slowly over at least 2-3 minutes. influenza vaccine (FLUZONE) injection 0.5 mL 0.5 mL, Intramuscular, Prior to discharge, Other, immunization, 1 dose, Starting on Wed12/08/23 at 2206, Until Wed12/14/23 at 1542, Please give vaccine prior to discharge. 1320 (Not Given - Provider: Miki Watts, BHARGAVI - Reason: Patient/family declined) iopamidol (ISOVUE-370) 76 % injection 100 mL (COMPLETED) 100 mL, Intravenous, IMG once as needed, Contrast, 1 dose, Starting on Wed12/12/23 at 1255, Until Wed12/12/23 at 1256 1256 (Given - Provider: Simon Branch, RTR) naLOXone (NARCAN) injection 0.4 mg 0.4 mg, Intravenous, As needed, Opioid reversal, Starting on Wed12/08/23 at 1426, Until Wed12/14/23 at 1542 ondansetron (ZOFRAN) injection 4 mg 4 mg, Intravenous, Every 8 hours PRN, Nausea, Vomiting, Starting on Wed12/08/23 at 1426, Until Wed12/14/23 at 1542, IV push over 2-5 minutes. 0916 (Given - Provider: Miki Watts RN) Linked Groups Order Group 1: heparin (porcine) injection 5,000 UnitsJump to med 5,000 Units, Subcutaneous, Every 12 hours scheduled (2 times per day), First dose on Wed12/08/23 at 2100, Until Discontinued And Moderate Risk for VTE (COMPLETED) documented in this encounter Additional Health Concerns Infection Onset Date Last Indicated Resolved Time ESBL - Extended Spectrum Bet a-lactamase Comment:12/04/22 +ESBL Blood. Added from external infection. Source: [facility]. 12/04/2022 documented as of this encounter Care Teams Math Instructor Relationship Specialty Start Date End Date None, Provider, PCP - General UNKNOWN PHYSICIAN SPECIALTY 12/08/23 12/13/23 Castro Spain MD [address] [place] [address] PCP - General INFECTIOUS DISEASE 12/14/23 documented as of this encounter
--- OUTSIDE RECORDS SUMMARY | 2024-03-18 18:05 | XMS_ITS | Encounter Summary ---
Author Organization [facility] Address [address] [place] [address]. [place] [address] [place] [address] Care Team Providers Care Bench Worker Helper Name Role Phone DarenRuma saldana Jarrett PIEDRA Primary Care Provider [phone] Reason for Visit * Reason Comments Medical Screening Encounter Details Date Type Department Care Team (Late st Contact Info) Description 08/06/2023 10:04 AM CDT - 08/06/2023 12:54 PM CDT Emergency [facility] Emergency Room [facility], [place] [id number] Drew Vincent MD [address] [place], [place] [id number] Medical Screening Discharge Disposition: Home or Self Care (Routine Discharge) Social History Tobacco Use Types Packs/Day Years [...] on file Legal 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 Gender Identity Not on file Sexual Orientation Not on file documented as of this encounter Last Filed Vital Signs Vital Sign Reading Time Taken Comments Blood Pressure 115/73 08/06/2023 12:00 PM CDT Pulse 75 08/06/2023 12:00 PM CDT Temperature 36.6 ??C (97.9 ??F) 08/06/2023 10:08 AM C DT Respiratory Rate 26 08/06/2023 12:00 PM CDT Oxygen Saturation 100% 08/06/2023 12:00 PM CDT Inhaled Oxygen Concentration - - Weight 67.7 kg (149 lb 4 oz) 08/06/2023 10:08 AM CDT Height 185.4 cm (6' 1) 08/06/2023 10:08 AM CDT Body Mass Index 19.69 08/06/2023 10:08 AM CDT documented in this encounter Functional Status * RETIRED Are you deaf or do you have serious difficulty hearing Answer Date of Assessment Author Status No 03/06/2020 3:01 AM 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 * Kidney Failure (Citizen Of [place]) documented in this encounter Medications at Time of Discharge amLODIPine 10 MG tablet Take 1 tablet (10 mg total) by mouth daily. 30 tablet 2 03/08/2020 Cholecalciferol (VITAMIN D3) 50 MCG (2000 UT) Tab Take 1 tablet (2,000 Units total) by mouth daily. hydroCHLOROthiazi de 12.5 MG tablet Take 1 tablet (12.5 mg total) by mouth every morning. 30 tablet 2 03/08/2020 multi vitamin/minerals tablet Take 1 tablet by mouth daily. documented as of this encounter ED Notes * Tracie Velásquez RN - 08/06/2023 12:53 PM CDT DC papers reviewed with pt. All questions/concerns addressed prior to dc. * Tracie Velásquez RN - 08/06/2023 12:24 PM CDT Pts sister transporting pt back home * Drew Vincent MD - 08/06/2023 10:45 AM CDT [place], [place] EMERGENCY DEPARTMENT ENCOUNTER Chief Complaint Chief Complaint Patient presents with Medical Screening History of Present Illness Provider at Bedside Date/Time Event User Comments 08/06/23 1035 Provider at Bedside Assessing Patient DREW VINCENT -- Sadi Matthews is a 68-year-old male with a PMH of stroke, ESRD s/p dialysis M/W/F and HTN presents to the ED by EMS for a general medical screening. Patient states that his last dialysis treatment was 7 days ago on Wednesday. He missed 3 treatments. Per EMS, dialysis center stated they wanted patient to have lab work done before they resumed treatment. No other complaints. Medical History ALLERGIES: Review of patient's allergies indicates: Allergen Reactions Lisinopril Anaphylaxis and Angioedema MEDICATIONS: Prior to Admission medications Medication Sig Start Date End Date Taking? Authorizing Provider amLODIPine 10 MG tablet Take 1 tablet (10 mg total) by mouth daily. 03/08/20 Abel Lizarraga MD Cholecalciferol (VITAMIN D3) 50 MCG (1999 UT) Tab Take 2,000 Units by mouth daily. Doc [facility] Abstract hydroCHLOROthiazide 12.5 MG tablet Take [...] packs/day: 0.50 Average packs/day: 0.5 packs/day for 47.0 years (23.5 ttl pk-yrs) Types: Cigarettes Start date: 08/05/1976 Smokeless tobacco: Never Vaping Use Vaping status: Never Used Substance Use Topics Alcohol use: Yes Alcohol/week: 8.3 standard drinks of alcohol Types: 5 Shots of liquor per week Drug use: Never Review of Systems Review of Systems Constitutional: Negative for chills, diaphoresis and fever. Respiratory: Positive for shortness of breath. Cardiovascular: Negative for chest pain and palpitations. Gastrointestinal: Negative for abdominal pain, diarrhea, nausea and vomiting. Neurological: Negative for dizziness and speech difficulty. Physical Exam Filed Vitals: 08/06/23 1008 08/06/23 1130 BP: 115/84 110/72 Pulse: 98 74 Resp: 20 13 Temp: 97.9 ??F (36.6 ??C) TempSrc: Oral SpO2: 97% 100% Weight: 67.7 kg (149 lb 4 oz) Height: 1.854 m (6' 1) Physical Exam HENT: Head: Normocephalic and atraumatic. Cardiovascular: Rate and Rhythm: Normal rate and regular rhythm. Pulmonary: Effort: Pulmonary effort is normal. Abdominal: Palpations: Abdomen is soft. Musculoskeletal: General: Normal range of motion. Neurological: Mental Status: He is alert and oriented to person, place, and time. Mental status is at baseline. Diagnostic Studies / Procedures ELECTROCARDIOGRAMS: Results for orders placed or performed during the hospital encounter of 08/06/23 [address] [facility] [facility] Test Date: 2023-08-06 Pat Name: SADI MATTHEWS Department: 41 Room: [place] [address] Gender: Male Rn Telephonic: [id number] : 1955 Requested By: DREW VINCENT Order Number: [id number] Reading MD: Measurements Intervals [place] Rate: 75 P: 79 WY: 175 QRS: 14 QRSD: 94 T: 56 QT: 367 QTc: 412 Interpretive Statements SINUS RHYTHM Compared to ECG 03/06/2020 06:34:06 No significant changes LABORATORY STUDIES: Results for orders placed or performed during the hospital encounter of 08/06/23 CBC W/DIFF AUTOMATED Result Value Ref Range WBC 9.85 4.5 - 11.0 x10'3/uL RBC 3.70 (L) 4.70 - 6.10 x10'6/uL HGB 11.5 (L) 14.0 - 18.0 G/DL HCT 36.1 (L) 43.0 - 54.0 % MCV 97.6 (H) 80.0 - 94.0 FL MCH 31.1 (H) 27.0 - 31.0 PG MCHC 31.9 (L) 32.0 - 36.0 G/DL RDW 16.9 (H) 11.5 - 14.5 % PLT 492 (H) 130 - 400 x10'3/uL MPV 10.5 9.3 - 12.2 FL DIFFERENTIAL TYPE AUTOMATED DIFFERENTIAL NEUTROPHILS 72.4 % LYMPHOCYTES 15.3 % MONOCYTES 7.1 % EOSINOPHILS 4.1 % BASOPHILS 0.7 % IMMATURE GRANS 0.4 % ABS. NEUTROPHILS 7.13 1.80 - 7.70 x10'3/uL ABS. LYMPHOCYTES 1.51 1.00 - 4.80 x10'3/uL ABS. MONOCYTES 0.70 0.30 - 0.82 x10'3/uL ABS. EOSINOPHILS 0.40 0.04 - 0.54 x10'3/uL ABS. BASOPHILS 0.07 0.01 - 0.08 x10'3/uL ABS. IMMATURE GRANULOCYTES 0.04 0.00 - 0.49 x10'3/uL BASIC METABOLIC PANEL Result Value Ref Range GLUCOSE 85 70 - 99 MG/DL BUN 57 (H) 7 - 18 MG/DL CREATININE S/P/B 8.29 (HH) 0.7 - 1.3 MG/DL SODIUM S/P/B 138 136 - 145 MMOL/L POTASSIUM S/P/B 4.3 3.5 - 5.1 MMOL/L CHLORIDE S/P/B 111 (H) 100 - 108 MMOL/L CO2 16.0 (L) 21 - 32 MMOL/L CALCIUM S/P/B 9.8 8.5 - 10.1 MG/DL ANION GAP 11.0 5 - 15 MMOL/L BUN CREATININE RATIO 6.9 6 - 26 GFR ESTIMATE 7 (L) >90 ML/MIN/1.73 M2 PRO-BRAIN NATRIURETIC PEPTIDE Result Value Ref Range PRO-B TYPE NATRIURETIC PEPTIDE 305 (H) <125 PG/ML IMAGING STUDIES XR CHEST PORTABLE Final Result by User, [id number] (08/05 114) PROCEDURE: XR CHEST PORTABLE. 08/06/2023 11:06 AM. TECHNIQUE: A single view of the chest (AP or PA) was performed. HISTORY: Shortness of breath. COMPARISON: PA and lateral chest, 05/31/2020. FINDINGS: Support Devices: There is a right IJ inserted tunneled central venous catheter tip terminating in profile with the superior vena cava. Cardiac Silhouette/Mediastinum/Abbi: The cardiac, mediastinal, and hilar contours are stable. Lungs/Pleural Spaces: No focal consolidation. The pleural spaces are clear. Chest Wall/Diaphragm/Upper Abdomen: The thoracic musculoskeletal structures and the upper abdomen are stable. IMPRESSION: 1. No acute cardiopulmonary process is identified. Ordered By: DREW VINCENT Interpreted By: Jessiac Dinh MD, 08/06/2023 11:36 AM ED Course / Medical Decision Making Medical Decision Making Patient with history of end-stage renal disease sent by dialysis to have blood work before they resume his dialysis. Denies any complaints. Get basic blood work, chest x-ray. Will reassess K 4.3 Chest x-ray negative Had a very long discussion with the patient and counseled him that he needs to be compliant in his dialysis treatment. Will discharge to get his dialysis. Amount and/or Complexity of Data Reviewed Independent Historian: EMS Details: Patient history provided by EMS and patient. See HPI for details. External Data Reviewed: notes. Details: Reviewed discharge summary on 03/07/20 for angioedema. Labs: ordered. Decision-making details documented in ED Course. Radiology: ordered and independent interpretation performed. Decision-making details documented in ED Course. ECG/medicine tests: ordered and independent interpretation performed. Decision- making details documented in ED Course. Risk Prescription drug management. Decision regarding hospitalization. Pulse Ox ordered and interpreted: Saturation: 97 (%) Oxygen Delivery: Room air Interpretation: No acute hypoxia at this time. Rhythm strip ordered and interpreted: Normal rate and rhythm. Rate 98. No ectopy. Data reviewed: All current, pertinent and timely studies (laboratory, imaging, and procedures) wereordered and results reviewed by Drew Vincent MD unless otherwise noted. Triage notes and available nursing notes reviewed. Previous medical record reviewed when available. Repeat vital signs reviewed. Medications - No data to display Clinical Impression ESRD (end stage renal disease) ([facility]) (Primary) Current Discharge Medication List Disposition: Discharge Follow-Up: RUMA GARCIA DO I, Kevin Oseguera, acting as a scribe, am personally taking down the notes in the presence of MD David. Take no action on this note until reviewed and authenticated by the physician. Drew Vincent MD 08/06/23 1210 * Arnaldo Mojica RN - 08/06/2023 10:04 AM CDT Bed: 12 Expected date: Expected time: Means of arrival: Comments: [place] documented in this encounter Plan of Treatment Not on file documented as of this encounter Goals Goal Patient Goal Type Associated Problems Recent Progress Patient-Stated? Author Consistently take medications as Prescribed General Delia Shipley, RN documented as of this encounter Procedures Procedure Name Priority Date/Time Associated Diagnosis Comments XR CHEST PORTABLE STAT 08/06/2023 11: 24 AM CDT ECG 12-LEAD Routine 08/06/2023 10:53 AM CDT PRO-BRAIN NATRIURETIC PEPTIDE Routine 08/06/2023 10:29 AM CDT BASIC METABOLIC PANEL STAT 08/06/2023 10:29 AM CDT CBC W/DIFF AUTOMATED STAT 08/06/2023 10:29 AM CDT documented in this encounter Results * XR CHEST PORTABLE (08/06/2023 11:24 AM CDT) Anatomical Region Laterality Modality Chest Radiographic Cecelia ging 08/06/2023 11:3 6 AM CDT Impressions 08/06/2023 11:39 AM CDT IMPRESSION: 1. ??No acute cardiopulmonary process is identified. Ordered By: DREW VINCENT Interpreted By: Jessica Dinh MD, 08/06/2023 11:36 AM Narrative 08/06/2023 11:39 AM CDT PROCEDURE: ??XR CHEST PORTABLE. ??08/06/2023 11:06 AM. TECHNIQUE: ??A single view of the chest (AP or PA) was performed. HISTORY: ??Shortness of breath. COMPARISON: ??PA and lateral chest, 05/31/2020. FINDINGS: ?? Support Devices: ??There is a right IJ inserted tunneled central venous catheter tip terminating in profile with the superior vena cava. Cardiac Silhouette/Mediastinum/Abbi: ??The cardiac, mediastinal, and hilar contours are stable. Lungs/Pleural Spaces: ??No focal consolidation. The pleural spaces are clear. Chest Wall/Diaphragm/Upper Abdomen: ??The thoracic musculoskeletal structures and the upper abdomen are stable. Procedure Note Jessica Dinh MD - 08/06/2023 PROCEDURE: XR CHEST PORTABLE. 08/06/2023 11:06 AM. TECHNIQUE: A single view of the chest (AP or PA) was performed. HISTORY: Shortness of breath. COMPARISON: PA and lateral chest, 05/31/2020. FINDINGS: Support Devices: There is a right IJ inserted tunneled central venouscatheter tip terminating in profile with the superior vena cava. Cardiac Silhouette/Mediastinum/Abbi: The cardiac, mediastinal, and hilarcontours are stable. Lungs/Pleural Spaces: No focal consolidation. The pleural spaces areclear. Chest Wall/Diaphragm/Upper Abdomen: The thoracic musculoskeletalstructures and the upper abdomen are stable. IMPRESSION: 1. No acute cardiopulmonary process is identified. Ordered By: DREW VINCENT Interpreted By: Jessica Dinh MD, 08/06/2023 11:36 AM us Drew Vincent MD GENERAL IMAGING Final Result * ECG 12 lead (08/06/2023 10:53 AM CDT) 08/06/2023 10:5 3 AM CDT Narrative [facility] - 08/06/2023 7:15 PM CDT [facility] ? [address] [facility] [place] ? Test Date: ?2023-08-06 Pat Name: ? SADI MATTHEWS ? Department: ?? 41 ? Room: ? [id number] Gender: ? Male ? Rn Telephonic: ?? [id number] : ?1955 ? Requested By: DREW VINCENT Order Number: [id number] ? Reading : ?? Rosy Nelson ? Measurements Intervals ?[place] ? Rate: ? 75 ? P: ?79 WY: ? 175 ?QRS: ?14 QRSD: ? 94 ? T: ?56 QT: ? 367 ? QTc: ?412 ? Interpretive Statements SINUS RHYTHM Baseline artifact Compared to ECG 03/06/2020 06:34:06 No significant changes Procedure Note Rosy Nelson MD - 08/06/[address] [place] Test Date: 2023-08-06 Pat Name: SADI MATTHEWS Department: 41 Room: [id number] Gender: Male Rn Telephonic: [id number] : 1955 Requested By: DREW VINCENT Order Number: [id number] Reading MD: Rosy Nelson Measurements Intervals [place] Rate: 75 P: 79 WY: 175 QRS: 14 QRSD: 94 T: 56 QT: 367 QTc: 412 Interpretive Statements SINUS RHYTHM Baseline artifact Compared to ECG 03/06/2020 06:34:06 No significant changes Drew Vincent MD ECG ORDERABLES Final Result Performing Organization Address City/[facility]/ZIP Co de Phone Number [facility] ([place]) [place] * (ABNORMAL) PRO-BRAIN NATRIURETIC PEPTIDE (08/06/2023 10:29 AM CDT) PRO-B TYPE NATRIURETIC PEPTIDE 305(H) <125 PG/ML 08/06/2023 12:03 PM CDT [facility] Comment: CUT POINTS ESTABLISHED BY [employer] ON NT PROBNP (ICON) STUDY (2006). AGE INDEPENDENT: <300 PG/ML HAS A 99% NEGATIVE PREDICTIVE VALUE FOR EXCLUDING ACUTE CHF <50 YEARS: >450 PG/ML IS CONSISTENT WITH ACUTE CHF 50-75 YEARS: >900 PG/ML IS CONSISTENT WITH ACUTE CHF >75 YEARS: >1800 PG/ML IS CONSISTENT WITH ACUTE CHF IN PATIENTS WITH RENAL INSUFFICIENCY (GFR <60), >1200 PG/ML YIELDS A DIAGNOSTIC SENSITIVITY AND SPECIFICITY OF 89% AND 72% FOR ACUTE CHF. 08/06/2023 10:2 9 AM CDT Drew Vincent MD LABORATORY Final Result Performing Organization Address City/[facility] Co de Phone Number [facility] [address] [place] [address], [place] [phone] * (ABNORMAL) BASIC METABOLIC PANEL (08/06/2023 10:29 AM CDT) GLUCOSE 85 70 - 99 MG/DL 08/06/2023 11:07 AM CDT [facility] BUN 57(H) 7 - 18 MG/DL 08/06/2023 11:07 AM CDT [facility] CREATININE S/P/B 8.29(HH) 0.7 - 1.3 MG/DL 08/06/2023 11:07 AM CDT [facility] Comment: Critical Result(s) Called at: 11:06:36 on 08/06/2023 by: MONIKA DÍAZ to and read back by: REGINA SPRING SODIUM S/P/B 138 136 - 145 MMOL/L 08/06/2023 11:07 AM CDT [facility] POTASSIUM S/P/B 4.3 3.5 - 5.1 MMOL/L 08/06/2023 11:07 AM CDT [facility] CHLORIDE S/P/B 111(H) 100 - 108 MMOL/L 08/06/2023 11:07 AM CDT [facility] CO2 16.0(L) 21 - 32 MMOL/L 08/06/2023 11:07 AM T [facility] CALCIUM S/P/B 9.8 8.5 - 10.1 MG/DL 08/06/2023 11:07 AM T [facility] ANION GAP 11.0 5 - 15 MMOL/L 08/06/2023 11:07 AM T [facility] BUN CREATININE RATIO 6.9 6 - 26 08/06/2023 11:07 AM T [facility] GFR ESTIMATE 7(L) >90 ML/MIN/1.7 3 M2 08/06/2023 11:07 AM T [facility] Comment: NOTE: eGFR is not calculated for patients <18 years of age. This is an estimated GFR calculation using the new CKD EPI creatinine equation without race and so does not require a correction factor for race. This estimated GFR should not be used for calculating drug doses. 08/06/2023 10:2 9 AM CDT Drew Vincent MD LABORATORY Final Result [facility] [address] [place] [address], [place] [phone] * (ABNORMAL) CBC W/DIFF AUTOMATED (08/06/2023 10:29 AM CDT) [facility] WBC 9.85 4.5 - 11.0 x10'3/uL 08/06/2023 10:41 AM CDT [facility] RBC 3.70(L) 4.70 - 6.10 x10'6/uL 08/06/2023 10:41 AM CDT [facility] HGB 11.5(L) 14.0 - 18.0 G/DL 08/06/2023 10:41 AM CDT [facility] HCT 36.1(L) 43.0 - 54.0 % 08/06/2023 10:41 AM CDT [facility] MCV 97.6(H) 80.0 - 94.0 FL 08/06/2023 10:41 AM CDT [facility] MCH 31.1(H) 27.0 - 31.0 PG 08/06/2023 10:41 AM CDT [facility] MCHC 31.9(L) 32.0 - 36.0 G/DL 08/06/2023 10:41 AM CDT [facility] RDW 16.9(H) 11.5 - 14.5 % 08/06/2023 10:41 AM CDT [facility] PLT 492(H) 130 - 400 x10'3/uL 08/06/2023 10:41 AM CDT [facility] MPV 10.5 9.3 - 12.2 FL 08/06/2023 10:41 AM CDT [facility] DIFFERENTIAL TYPE AUTOMATED DIFFERENTIAL 08/06/2023 10:41 AM CDT [facility] NEUTROPHILS % 72.4 % 08/06/2023 10:41 AM CDT [facility] LYMPHOCYTES % 15.3 % 08/06/2023 10:41 AM CDT [facility] MONOCYTES % 7.1 % 08/06/2023 10:41 AM CDT [facility] EOSINOPHILS 4.1 % 08/06/2023 10:41 AM CDT [facility] BASOPHILS 0.7 % 08/06/2023 10:41 AM CDT [facility] IMMATURE GRANS % 0.4 % 08/06/19 10:41 AM CDT [facility] ABS. NEUTROPHILS 7.13 1.80 - 7.70 x10'3/uL 08/06/2023 10:41 AM CDT [facility] ABS. LYMPHOCYTES 1.51 1.00 - 4.80 x10'3/uL 08/06/2023 10:41 AM CDT [facility] ABS. MONOCYTES 0.70 0.30 - 0.82 x10'3/uL 08/06/2023 10:41 AM CDT [facility] ABS. EOSINOPHILS 0.40 0.04 - 0.54 x10'3/uL 08/06/2023 10:41 AM CDT [facility] ABS. BASOPHILS 0.07 0.01 - 0.08 x10'3/uL 08/06/2023 10:41 AM CDT [facility] ABS. IMMATURE GRANULOCYTES 0.04 0.00 - 0.49 x10'3/uL 08/06/2023 10:41 AM CDT [facility] 08/06/2023 10:2 9 AM CDT Drew Vincent MD LABORATORY Final Result [facility] [address] [place] [address], documented in this encounter Visit Diagnoses Diagnosis ESRD (end stage renal disease) ([facility]CC)- Primary End stage renal disease documented in this encounter Care Teams Bench Worker Helper Relationship Specialty Start Date End Date Ruma Garcia DO PCP - General FAMILY PRACTICE 05/31/20 12/07/23 documented as of this encounter
--- OUTSIDE RECORDS SUMMARY | 2024-03-18 18:06 | XMS_ITS | Encounter Summary ---
Author Organization [facility] Address [address] [place] [address]. [place], [place] [id number] [place] [id number] Care Team Providers Care Cloth Mender Name Role Phone None, Provider MD Primary Care Provider Unavaila ble Reason for Referral * (Routine) - Canceled Specialty Diagnoses / Procedures Referred By Zeferino plata Referred To Contact Procedures PT eval and treat [facility] [place] [address] Phone: tel: fax: Referral ID Status Reason Start Date Expiration Date V isits Requested Visits Authorized [id number] Canceled 03/06/2020 04/06/2021 1 1 OUT PRESS OPERATOR Reason for Visit * Reason Comments Allergic Reaction * Auth/Cert Specialty Diagnoses / Procedures Referred By Zeferino plata Referred To Contact Diagnoses Angioedema due to angiotensin converting enzyme inhibitor ([place]RA[place]) Angioedema due to angiotensin converting enzyme inhibitor ([place]RA[place]-I) Procedures INPT Referral ID Status Reason Start Date Expiration Date Visits Re quested Visits Authorized [id number] 1 1 Encounter Details Date Type Department Care Team (Late st Contact Info) Description 03/05/2020 8:13 PM CUT OUT PRESS OPERATOR - 03/07/2020 2:54 PM CUT OUT PRESS OPERATOR Emergency [facility] Telemetry Unit [address] [place], [place] [id number] Demond Jara MD,PHD [address] [place] [address] [place] [id number] Shan Fernandez MD 1 [place] [address] Brittani Reyes MD 3 [facility] [address] [place], [place] [id number] Joseph Be MD 3 [facility] [address] [place] [address] Allergic Reaction Discharge Disposition: Home or Self Care (Routine Discharge) Social History Tobacco Use Types Packs/Day Years Used Date Smoking Tobacco: Every Day Smokeless Tobacco: Never Alcohol Use Standard Drinks/Week Comments Yes 8.3 (1 standard drink = 0.6 oz p ure alcohol) Sex and Gender Information Value Date Recorded Sex Assigned at Not on file Legal Sex Male 8:12 PM CUT OUT PRESS OPERATOR Gender Identity Not on file Sexual Orientation Not on file COVID-19 Exposure Response Date Recorded In the last month, have you been in contact with someone who was confirmed or suspected to have Coronavirus / COVID-19? No / Unsure 03/05/2020 8:19 PM CUT OUT PRESS OPERATOR documented as of this encounter Last Filed Vital Signs Vital Sign Reading Time Taken Comments Blood Pressure 97/58 03/07/2020 11:18 AM CUT OUT PRESS OPERATOR Pulse 77 03/07/2020 11:18 AM CUT OUT PRESS OPERATOR Temperature 36.8 ??C (98.3 ??F) 03/07/2020 11:[address] Respiratory Rate 18 03/07/2020 11:18 AM CUT OUT PRESS OPERATOR Oxygen Saturation 98% 03/07/2020 11:18 AM CUT OUT PRESS OPERATOR Inhaled Oxygen Concentration - - Weight 77 kg (169 lb 12.8 oz) 03/07/2020 5:00 AM CUT OUT PRESS OPERATOR Height 185.4 cm (6' 1) 03/05/2020 8:25 PM CUT OUT PRESS OPERATOR Body Mass Index 22.4 03/05/2020 8:25 PM CUT OUT PRESS OPERATOR documented in this encounter Functional Status * Question Answer Date of Assessment Author Status Do you have serious difficulty walking or climbing stairs? Yes 03/06/2020 3:01 AM Corie Ramírez RN Ac tive * Question Answer Date of Assessment Author Status Do you have difficulty dressing or bathing? Yes 03/06/2020 3:01 AM Corie Ramírez R N Active Because of a physical, mental, or emotional condition, do you have difficulty doing errands alone such as visiting a doctor's office or shopping? Yes 03/06/2020 3:01 AM Corie Ramírez RN Act thea * RETIRED Are you deaf or do you have serious difficulty hearing Answer Date of Assessment Author Status No 03/06/2020 3:01 AM CUT OUT PRESS OPERATOR Activ e * RETIRED Are you blind or do you have serious difficulty seeing, even when wearing glasses? Answer Date of Assessment Author Status No 03/06/2020 3:01 AM CUT OUT PRESS OPERATOR Activ e * Do you have serious difficulty walking or climbing stairs? Answer Date of Assessment Author Status Yes 03/06/2020 3:01 AM Corie Ramírez RN Active * Do you have difficulty dressing or bathing? Answer Date of Assessment Author Status Yes 03/06/2020 3:01 AM Corie Ramírez RN Active * Because of a physical, mental, or emotional condition, do you have difficulty doing errands alone such as visiting a doctor's office or shopping? Answer Date of Assessment Author Status Yes 03/06/2020 3:01 AM Corie Ramírez RN Active documented as of this encounter Mental Status * Question Answer Entry Date Author Status Because of a physical, mental, or emotional condition, do you have serious difficulty concentrating, remembering, or making decisions? No 03/06/2020 3:01 AM Corie Ramírez R N Active * Because of a physical, mental, or emotional condition, do you have serious difficulty concentrating, remembering, or making decisions? Answer Entry Date Author Status No 03/06/2020 3:01 AM Corie Ramírez RN Active documented in this encounter Discharge Summaries * Abel Lizarraga MD - 03/07/2020 8:03 AM CST Discharge Summary Sadi Matthews male 1955 Recommendations for PCP: - Order repeat BMP to monitor hyperkalemia (resolved) & elevated creatinine (2.24 on discharge). - Recommend patient avoid ACEi/ARB medications. - Started Amlodipine 10mg PO daily & HCTZ 12.5mg PO Qam; patient unsure of home medications. - Patient lives in [place] full-time but is staying in the area for a few weeks & requires hospital f/u. Recommendations for Specialist: None Follow Up Appointments: Specialty: PCP (Dr. Taiwo Chowdhury), Date: 03/13/20, Time: 9:30AM Admit Date: 03/05/2020 8:13 PM Discharge date and time: 03/08/20 Admitting Physician: Brittani Reyes MD Primary Care Physician: No primary care provider on file. Discharge Physician: Joseph Be MD Admission Diagnosis: Angioedema [T78.3XXA] Hypertension [I10] Angioedema due to angiotensin converting enzyme inhibitor ([place]-I) [T78.3XXA, T46.4X5A] Admission Condition: Poor Discharged Condition: Stable Reason for Admission: Angioedema Hospital Course: 64M with PMHx of HTN admitted (03/06) d/t angioedema 2/2 lisinopril ingestion. Received 2x TXA 1000mg IV, Epinephrine 0.3mg IV, Dexamethasone 10mg IV, & 1U FFP in ED. K 6.1 so patient given Ca Gluconate 1g IV, Lasix 40mg IV, & Lokelma 10g. Cre 2.34 so gave 1L NS bolus & monitored overnight. At time of discharge angioedema/hyperkalemia resolved, no SOB/wheezing, & creatinine level improving. Discharge Medications: Medication List START taking these medications amLODIPine 10 MG tablet Commonly known as: NORVASC Take 1 tablet (10 mg total) by mouth daily. hydroCHLOROthiazide 12.5 MG tablet Commonly known as: MICROZIDE Take 1 tablet (12.5 mg total) by mouth every morning. CONTINUE taking these medications multi vitamin/minerals tablet Commonly known as: THERA-M ENHANCED Vitamin D3 50 MCG (1999 UT) Tabs Where to Get Your Medications You can get these medications from any pharmacy Bring a paper prescription for each of these medications ?? amLODIPine 10 MG tablet ?? hydroCHLOROthiazide 12.5 MG tablet Discharge Exam: Filed Vitals: 03/07/20 0100 03/07/20 0500 03/07/20 0745 03/07/20 1118 BP: 146/86 (!) 149/95 (!) 165/95 97/58 Pulse: 94 77 79 77 Resp: 20 18 18 18 Temp: 98.4 ??F (36.9 ??C) 98.3 ??F (36.8 ??C) 97.6 ??F (36.4 ??C) 98.3 ??F (36.8 ??C) TempSrc: Oral Oral Oral Oral SpO2: 99% 98% 98% 98% Weight: 77 kg (169 lb 12.8 oz) Height: Physical Exam Constitutional: He is oriented to person, place, and time and well-developed, well-nourished, and in no distress. He appears unhealthy. HENT: Head: Normocephalic and atraumatic. Eyes: Conjunctivae are normal. Neck: Normal range of motion. Neck supple. Cardiovascular: Normal rate, regular rhythm and normal heart sounds. Exam reveals no gallop and no friction rub. No murmur heard. Pulmonary/Chest: Effort normal and breath sounds normal. No respiratory distress. He has no wheezes. He has no rales. Abdominal: Soft. Bowel sounds are normal. He exhibits no distension. There is no abdominal tenderness. Musculoskeletal: Normal range of motion. General: No edema. Neurological: He is alert and oriented to person, place, and time. Skin: Skin is warm and dry. He is not diaphoretic. Psychiatric: Mood, memory, affect and judgment normal. Nursing note and vitals reviewed. Assessment and plan discussed with attending: Dr. Joseph Be. Abel Lizarraga MD Family Medicine, PGY-1 Cosigned by Joseph Be MD at 03/09/2020 4:16 PM CUT OUT PRESS OPERATOR OUT PRESS OPERATOR OUT PRESS OPERATOR OUT PRESS OPERATOR Associated attestation - Joseph Be MD - 03/09/2020 4:16 PM CUT OUT PRESS OPERATOR I saw this patient and agree with the written findings. Joseph Be MD documented in this encounter Discharge Instructions * Discharge Instructions* Abel Lizarraga MD - 03/06/2020 11:46 AM CUT OUT PRESS OPERATOR Images from the original note were not included. Patient Education Angioedema Discharge Instructions About this topic Angioedema is swelling under the skin and tissues. It is caused by a leaking blood vessel. Hives are swelling on the top of the skin. You may have both of these at the same time. Sometimes, you may only have angioedema. The swelling can happen any place on the body. Some people have swelling on theface, tongue, lips, or throat. Other people have swelling on the arms, legs, belly, and lungs. Doctors do not always know what causes this swelling. Sometimes, it is an allergy to drugs, foods, animal fur, or bug bites. There may be something with the weather or the call[place] and trees outside that is causing the swelling. It is important to tell hives from angioedema because the care is different. Prevention is the mostimportant step against angioedema. When the face, throat, and lungs are affected, you should see a doctor right away. What care is needed at home? ?? Ask your doctor what you need to do when you go home. Make sure you ask questions if you do not understand what the doctor says. This way you will know what you need to do. ?? You doctor will give you drugs for pain and swelling. Take all the drugs as ordered by your doctor. ?? During an attack, loosen tight clothing. ?? If you are itchy, you may put a cool damp washcloth over the itchy part. Place an ice pack or a bag of frozen peas wrapped in a towel over the itchy part. Never put ice right on the skin. Do not leave the ice on more than 10 to 15 minutes at a time. ?? If your angioedema is caused by heat, stay in a cool room with good air flow. ?? Put an air purifier in your room. This may help filter the air in your room. ?? Keep a list of what sets off your allergies. Stay away from them as much as possible. ? Wear a mask when you need to go to [place] and other crowded places if your trigger is airborne allergens. ? When eating in a restaurant, always ask about the ingredients of a dish you want to have if your trigger for angioedema is food-related (like MSG). ?? Tell close friends and companions about your condition so that they may help you if needed. ?? The drugs may make you feel tired. Do not drive or operate machinery if you feel drowsy. What follow-up care is needed? ?? Your condition needs close monitoring. Your doctor may ask you to make visits to the office to check on your progress. Be sure to keep these visits. ?? You may be asked to take a different kind of heart drug if the doctor feels that was causing your problem. ?? Your doctor will tell you if other tests are needed. ?? Your doctor may have you go see an allergy expert called an early learning teacher. ?? You may have to go see a dietitian. This is someone who can help you find out if certain foods are causing the angioedema. What drugs may be needed? The doctor may order drugs to: ?? Help with pain and swelling ?? Ease itching ?? Fight allergies ?? Fight or prevent an infection ?? Help prevent a reaction Your doctor may also switch you to different kinds of drugs for your other medical problems. Will physical activity be limited? If your angioedema is triggered by exercise, take your drugs before exercising. What problems could happen? ?? Breathing problems ?? Heart problems ?? Infection ?? Angioedema returns What can be done to prevent this health problem? ?? Do not take any drugs unless ordered by your doctor. ?? Check with your doctor before taking nhyu-tca-zjoaavb (OTC) drugs, health additives, or herbs. ?? Do not take aspirin for a headache or other problems unless ordered by your doctor. ?? Avoid things that may set off your swelling. This may include things like getting too hot, eating spicy food, or drinking alcohol. When do I need to call the doctor? ?? Swollen lips or throat ?? Sudden breathing problems ?? Chest pain ?? Upset stomach and throwing up ?? Fast heartbeat ?? Fever of 100.4??F (38??C) or higher ?? You are not feeling better in 2 to 3 days or you are feeling worse Teach Back: Helping You Understand The Teach Back Method helps you understand the information we are giving you. The idea is simple. After talking with the staff, tell them in your own words what you were just told. This helps to makesure the staff has covered each thing clearly. It also helps to explain things that may have been abit confusing. Before going home, make sure you are able to do these: ?? I can tell you the difference between angioedema and hives. ?? I can tell you what may help me feel better during an attack. ?? I can tell you what I will do if I suddenly have trouble breathing. Where can I learn more? [place] [employer]hma & Immunology http://www.aaaai.org/mfwqfqyihg-lcc-hqlgicwnyg/library/at-a-glance/allergic-skin -conditions.aspx [place] Society of Clinical Immunology and Allergy http://www.allergy.org.au/images/stories/aer/infobulletins/2010pdf/AER_Angioedem a.pdf National Organization for Rare Diseases http://www.rarediseases.org/ncxd-rxlayyh-xqtsscofxgf/rare-diseases/byID/98/viewA bstract World Allergy Organization http://www.worldallergy.org/professional/allergic_diseases_center/urticaria/urti cariasynopsis.php Last Reviewed Date 2015-04-19 Consumer Information Use and Disclaimer This information is not specific medical advice and does not replace information you receive from your health care provider. This is only a brief summary of general information. It does NOT include all information about conditions, illnesses, injuries, tests, procedures, treatments, therapies, discharge instructions or life-style choices that may apply to you. You must talk with your health care provider for complete information about your health and treatment options. This information should not be used to decide whether or not to accept your health care provider???s advice, instructions or recommendations. Only your health care provider has the knowledge and training to provide advice that is right for you. Copyright Copyright ?? 2020 [employer]. and its affiliates and/or licensors. All rights reserved. Patient Education High Blood Pressure Discharge Instructions About this topic High blood pressure happens when your heart is working harder than normal to pump blood to the body. Most people have no known cause or reason for high blood pressure. High blood pressure cannot be cured. You must control it with drugs and lifestyle changes. If high blood pressure is not controlled, it can lead to heart attack, stroke, and kidney problems. What care is needed at home? ?? Ask your doctor what you need to do when you go home. Make sure you ask questions if you do not understand what the doctor says. This way you will know what you need to do. ?? Learn to take your blood pressure at home. Write down what your blood pressure was and the time you checked it. Bring this with you to your doctor???s visit. ?? Avoid stress. What follow-up care is needed? Your doctor may ask you to make visits to the office to check on your progress. Be sure to keep these visits. What drugs may be needed? The doctor may order drugs to help control your high blood pressure. Take your drugs as ordered. Donot take other prescription drugs or dyyt-vwo-zpbzpqm (OTC) drugs without talking to your doctor first. Will physical activity be limited? Talk to your doctor about the right amount of activity for you. Exercise may help you lose weight and lower your blood pressure. What changes to diet are needed? ?? Do not use salt on your food. Use herbs and spices to improve the taste. ?? Eat less than 1,500 mg of sodium a day. Read food labels to see how much sodium is in a food. ?? Limit coffee, tea, and soda to 2 cups (480 mL) a day. ?? Limit beer, wine, and mixed drinks (alcohol) to 1 drink a day for women and 2 drinks a day for men. ?? Eat lots of fruits, vegetables, and low-fat dairy products. ?? Avoid fatty foods like fried foods or chips. ?? Talk with your dietitian about the diet changes you need and the number of calories you should eat each day. What problems could happen? ?? Heart attack, heart failure, or other heart problems ?? Stroke ?? Swelling of blood vessels ?? Kidney failure ?? Loss of eyesight ?? Memory problems ?? Fluid in the lungs ?? What can be done to prevent this health problem? ?? Exercise regularly. Try to get at least 30 minutes of exercise most days of the week. ?? Avoid weight gain. ?? Stop smoking. Your doctor can tell you about stop smoking programs. ?? Learn to lower stress. When do I need to call the doctor? Activate the emergency medical system right away if you have signs of a heart attack or stroke. Call 911 in the [place] or [place]. The sooner treatment begins, the better your chances for recovery. Call for emergency help right away if you have: ?? Signs of heart attack: ? Chest pain ? Trouble breathing ? Fast heartbeat ? Feeling dizzy ?? Signs of stroke: ? Sudden numbness or weakness of the face, arm, or leg, especially on one side of the body ? Sudden confusion, trouble speaking or understanding ? Sudden trouble seeing in one or both eyes ? Sudden trouble walking, dizziness, loss of balance or coordination ? Sudden severe headache with no known cause ? Face droops on one side Call your doctor if you have: ?? Blood pressure that is 20 points higher than your normal top or bottom number ?? Two blood pressure readings higher than 180/120 ?? Very bad headache ?? Confusion ?? Sudden change in hearing or eyesight ?? Nosebleed ?? You are not feeling better in 2 to 3 days or you are feeling worse Teach Back: Helping You Understand The Teach Back Method helps you understand the information we are giving you. After you talk with the staff, tell them in your own words what you learned. This helps to make sure the staff has described each thing clearly. It also helps to explain things that may have been confusing. Before going home, make sure you can do these: ?? I can tell you about my condition. ?? I can tell you what numbers are too high for my blood pressure. ?? I can tell you what I will do if I have signs of a heart attack or stroke. Where can I learn more? [place] [employer]icians https://familydoctor.org/condition/gbik-eovct-pcmxyaow/ [place] [employer] Physicians https://familydoctor.org/ehw-cjyv-auxg-suaxoki-rquxda-ix-uvqycud-wgfi-iavue-pres sure/ [place] Heart Association http://www.heart.org/HEARTORG/Conditions/HighBloodPressure/AboutHighBloodPressur e/Spdqo-Rwjb-Tauws-Pressure_[facility]_002050_Article.jsp#.H7lL4AmnJ9x NHS Choices http://www.nhs.uk/conditions/blood-pressure-(high)/pages/introduction.aspx [employer] https://www.ByRead.Wefunder/contents/esbx-jrrnh-smqfrmzp-yg-szjejm-ujsirq-the-basic s?source=see_link Last Reviewed Date 2019-05-26 Consumer Information Use and Disclaimer This information is not specific medical advice and does not replace information you receive from your health care provider. This is only a brief summary of general information. It does NOT include all information about conditions, illnesses, injuries, tests, procedures, treatments, therapies, discharge instructions or life-style choices that may apply to you. You must talk with your health care provider for complete information about your health and treatment options. This information should not be used to decide whether or not to accept your health care provider???s advice, instructions or recommendations. Only your health care provider has the knowledge and training to provide advice that is right for you. Copyright Copyright ?? 2020 [employer] and its affiliates and/or licensors. All rights reserved. OUT PRESS OPERATOR documented in this encounter Medications at Time [...] mouth daily. documented as of this encounter Progress Notes * Stephanie Berman RN - 03/07/2020 7:39 AM CST Problem: Pain Goal: Patient's pain/discomfort is manageable Description: Assess and monitor patient's pain using appropriate pain scale. Collaborate with interdisciplinary team and initiate plan and interventions as ordered. Re-assess patient's pain level 30 - 60 minutes after pain management intervention. Outcome: Progressing Problem: Safety Goal: Patient will be injury free during hospitalization Description: Assess and monitor vitals signs, neurological status including level of consciousness and orientation. Assess patient's risk for falls and implement fall prevention plan of care and interventions per hospital policy. Ensure arm band on, uncluttered walking paths in room, adequate room lighting, call light and overbed table within reach, bed in low position, wheels locked, side rails up per policy, and non-skid footwear provided. Outcome: Progressing Problem: Daily Care Goal: Daily care needs are met Description: Assess and monitor ability to perform self care and identify potential discharge needs. Outcome: Progressing Problem: Psychosocial Needs Goal: Demonstrates ability to cope with hospitalization/illness Description: Assess and monitor patients ability to cope with his/her illness. Outcome: Progressing Problem: Discharge Barriers Goal: Patient's discharge needs are met Description: Collaborate with interdisciplinary team and initiate plans and interventions as needed. Outcome: Progressing OUT PRESS OPERATOR * Marvin [place], PT - 03/06/2020 2:43 PM CST 03/06/20 1400 Therapy Visit Ordering Provider Rebecca PT Received On 03/06/20 Subjective ED 10: Pt received lying supine in bed agreeable to PT evaluation. Pt reports that he has been unsteady for the last few weeks and his tongue was very swollen. Reason for admission angioedema Relevant Comorbidities/ Personal Factors to PT PMH: HTN Verified Two Patient Identifiers Yes Patient consents to therapy Yes Acute Inpatient PT Time Calculation PT Start Time 1328 PT Stop Time 1353 PT Time Calculation (min) 25 min Precautions Precautions Yes/No Yes General Precautions Fall Risk;Monitor Vitals Instructed on Precautions Yes;Needs reinforcement and education Home Living Type of Home Apartment Home Layout Two level;Able to live on main level with bedroom/bathroom Home Accessibility 1 Step or platform to enter Home Equipment Straight cane Prior Function Level of [place] Independent with ADLs;Independent with functional transfers;Independent with ambulation;Independent with homemaking with ambulation Device used at baseline Straight cane Baseline Ambulation Distance/Assistance household and limited community ambulator Fall History Yes Most recent fall 6 months ago How many falls in the past year? 1 Lives With Alone Receives Help From Family Comments pt in town from [place] staying with his sister Pain Pain No Activity Tolerance Endurance Tolerates 20 - 30 min activity with rests Activity Tolerance Comments Pt with fair tolerance for PT. Pt denies any SOB or dizziness with activity. HR 110-140s Cognition Overall Cognitive Status WFL Orientation Level Oriented X4 Following Commands Follows all commands and directions without difficulty Overall Extremity Assessment Lower Extremity Comment B LE strength is 4 to 4+/5 Bed Mobility Supine to Sit SBA/supervision TRANSFERS Sit to Stand SBA/supervision Gait Gait Assistance SBA/supervision;Contact guard assist Assistive Device 2 Wheeled walker Ambulation Distance (Feet) 50' Pattern (wide RYANN, dec pace, unsteady/ataxic) Balance Sitting - Static SBA Sitting - Dynamic SBA Standing - Static SBA;CGA;Support of both upper extremities Standing - Dynamic SBA;CGA;Support of both upper extremities Patient/Family Training Bed Mobility x Transfer Training x Gait Training x Precautions x Assessment Personal Factors/Comorbidities Impacting Care 3-4 personal factors/comorbidities Examination of Body Systems Moderate (3 or more Elements) Objectives of Body Systems Impaired transfers;Impaired ambulation;Impaired balance;Impaired stair negotiation;Decreased safe judgement;Decreased endurance Clinical Presentation of Patient Evolving and changing characteristics Complexity Level of Evaluation Moderate Prognosis Fair PT Assess/Eval Other (Comment) Pt is a 64 y.o. male adm with angioedema. Prior to admission pt was independent with all mobility with SPC. Pt currenlty requiring SBA for standing activities with use of a 2ww. Pt will benefit from skilled PT to address deficits. Recommendation PT Recommendation PT during hospitalization;Home PT PT Equipment Recommended 2 Wheeled walker Plan PT Treatments/Interventions Gait Training;Therapeutic Exercises;Therapeutic Activities;Neuromuscular re-education PT Frequency Daily;BID;6 times/week PT plan for next session transfers and gait training If this is the last treatment note,it will serve as the discharge summary Yes End of Session Safety End of Session Safety Call light within reach;Nursing aware of session;Transfer status education OUT PRESS OPERATOR * Abel Lizarraga MD - 03/06/2020 1:39 PM CST Contacted by RN for repeat K of 5.8 (improving) & Cre of 2.34 (worsening) @ 1208PM. Concern that patient's hyperkalemia hasn't improved sufficiently with treatment via Calcium gluconate 1g IV, Lasix 40g IV, & Lokelma 10g his morning. Patient has also now developed an SHARI. - Ordered 1L NS bolus over 30mins. - Continue telemetry monitoring for arrhythmias. - Repeat BMP @ 230PM. Plan discussed with attending physician: Dr. Brittani Reyes. Abel Lizarraga MD Family Medicine, PGY-1 Cosigned by Brittani Reyes MD at 03/06/2020 7:16 PM CUT OUT PRESS OPERATOR OUT PRESS OPERATOR OUT PRESS OPERATOR * Justus Baer MD - 03/06/2020 10:50 AM CST Brief Plan of Care Note 03/06/20 Sadi Matthews : 1955 I participated in the care of this patient on this date in a supervisory role as senior resident. Isaw and evaluated the patient, discussed the case with the pretty resident, and reviewed the findings and plan as documented in the pretty resident???s note. See pretty resident???s note for details. Justus Baer MD [facility] Medicine Resident Signed: 03/06/20 10:51 AM Cosigned by Brittani Reyes MD at 03/06/2020 7:16 PM CUT OUT PRESS OPERATOR OUT PRESS OPERATOR OUT PRESS OPERATOR * Delia Salinas RN - 03/06/2020 10:42 AM CST 03/06/20 1041 Referral Data Referral Reason Discharge Planning Source of Information Patient Patient Information Primary Caregiver Self Support System Immediate family Baseline ADL's Functional Status Independent Living Arrangements Family members Type of Residence Private residence Ambulation Assistance No Bathing/Grooming Assistance No Dressing Assistance No Behavior Oriented Communication Talks;Understands speaking;Understands [place] Anticipated Discharge Needs Change in Living Arrangements No In-Home Care or Equipment No Vocational and/or Role Loss No Inability to Complete ADL's No Anticipated DC Plan Living Arrangements Family members Support Systems Family members Type of Residence Private residence Assistance Needed No Patient expects to be discharged to: Home NCM performed bedside interview:spoke with patient, verified and address, also spoke with patient's sister Nick Matthews [phone] Support: family Home:patient plans to return to sister's home upon discharge from hospital, per sister the patient will be staying with her for extended time frame Ambulation: Reports independent prior to admission. DME products: None Medical Devices: None ADLs: Reports independent prior to admission. Transport Home:family Skin/Bladder/Bowel: No deficits reported. A/O: Answers questions with intent and clarity. Communication: No deficits noted or reported. Home Health: None Occupation: None Pharmacy: [facility] Concerns: None PCP/Insurance Plan: Verified as accurate in the chart. Patient states he has PCP in his home town, cannot remember the doctor's name/medicaid and medicare insurance. Due to plan to relocate to this area, new PCP list given for patient to establish local doctor. RNCM contacted Dr Bridgett Leos from [place], [place] [phone], patient is current patient with their office. Leftmessage on nurse's voicemail regarding if patient should need home health, would Dr Hernandez sign home health orders, call back number left. Discharge needs: No needs identified at this time. Care Coordination Team will provide discharge planning as needed, and will re-evaluate based on recommendations and treatment course. OUT PRESS OPERATOR OUT PRESS OPERATOR OUT PRESS OPERATOR * Jac Dutton DO - 03/06/2020 7:57 AM CST Contacted by nursing staff stating potassium was 6.3 this AM. Repeat BMP revealed potassium 6.1. Sadi is asymptomatic. - Calcium gluconate 1 g IV - IV Lasix 40 g - 10 g Lokelma - Switched BP meds: HCTZ --> amlodipine 10 mg daily - Continue telemetry monitoring for arrhythmias - Repeat BMP at noon Jac Dutton DO [facility] Family Medicine, PGY-2 Cosigned by Brittani Reyes MD at 03/06/2020 7:16 PM CUT OUT PRESS OPERATOR OUT PRESS OPERATOR OUT PRESS OPERATOR documented in this encounter H&P Notes * Suraj Farias PhoenixDO - 03/06/2020 1:28 AM CST HISTORY AND PHYSICAL EXAM DATE: 03/06/2020 at 0128 CC: Swollen lips and tongue HPI: Sadi Matthews is a 64-year-old male with PMHx of HTN presenting with lip and tongue swelling. The pt is visiting a relative in the area and forgot to bring his BP meds. He decided to take one of her lisinopril, and approx 1-2 hours after taking lisinopril he started noticing his tongue and lips swelling. The pt is unsure what BP meds he takes at home, he denies any other medications at home. The pt reports having a similar experience about 15 years ago. Denies any rashes, itching, wheezing, SOB, cough. He also reports drooling. REVIEW OF SYSTEMS: Review of Systems Constitutional: Negative for chills and fever. HENT: Negative for sore throat. Tongue swollen, difficulty swallowing. Respiratory: Negative for cough, shortness of breath and wheezing. Cardiovascular: Negative for chest pain and palpitations. Gastrointestinal: Negative for abdominal pain, diarrhea, nausea and vomiting. Genitourinary: Negative for dysuria. Musculoskeletal: Negative for myalgias. Skin: Negative for itching and rash. Neurological: Negative for focal weakness, loss of consciousness and weakness. ED COURSE: Vitals: -BP 147-179/92-120 -HR 89-108 -RR 14-25 -SpO2 97-100 -Temp 97.8 F Labs: -Na 127 -Cr 1.85 -BG 62 -WBC 13.3 -Hgb 10.3 EKG: -None Imaging: -None Meds/Interventions: -TXA 1000 mg IV x 2 -NS 1 L bolus x 1 -Famotidine 20 mg IV -Epinephrine 0.3 mg IV -Dexamethasone 10 mg IV Consults: -None PAST MEDICAL HISTORY: Past Medical History: Diagnosis Date ??? Hypertension SURGICAL HISTORY: History reviewed. No pertinent surgical history. ALLERGIES: Allergies Allergen Reactions ??? Lisinopril Anaphylaxis MEDICATIONS: Prior to Admission medications Medication Sig Start Date End Date Taking? Authorizing Provider Cholecalciferol (VITAMIN D3) 50 MCG (1999 UT) Tab Take 2,000 Units by mouth daily. Yes Doc Abstract multi vitamin/minerals tablet Take 1 tablet by mouth daily. Yes Doc Abstract SOCIAL HISTORY: Social History Socioeconomic History ??? Marital status: Not on file Spouse name: Not on file ??? Number of children: Not on file ??? Years of education: Not on file ??? Highest education level: Not on file Occupational History ??? Not on file Social Needs ??? Financial resource strain: Not on file ??? Food insecurity Worry: Not on file Inability: Not on file ??? Transportation needs Medical: Not on file Non-medical: Not on file Tobacco Use ??? Smoking status: Current Every Day Smoker ??? Smokeless tobacco: Never Used Substance and Sexual Activity ??? Alcohol use: Yes Alcohol/week: 8.3 standard drinks Types: 5 Shots of liquor per week ??? Drug use: Never ??? Sexual activity: Not on file Lifestyle ??? Physical activity Days per week: Not on file Minutes per session: Not on file ??? Stress: Not on file Relationships ??? Social connections Talks on phone: Not on file Gets together: Not on file Attends worship service: Not on file Active member of club or organization: Not on file Attends meetings of clubs or organizations: Not on file Relationship status: Not on file ??? Intimate partner violence Fear of current or ex partner: Not on file Emotionally abused: Not on file Physically abused: Not on file Forced sexual activity: Not on file Other Topics Concern ??? Not on file Social History Narrative ??? Not on file FAMILY HISTORY: No family history on file. PRIMARY CARE PROVIDER: No primary care provider on file. CODE STATUS: Full Code PHYSICAL EXAM: Vitals: Blood pressure (!) 147/97, pulse 89, temperature 97.8 ??F (36.6 ??C), temperature source Axillary, resp. rate 14, height 6' 1 (1.854 m), weight 82.6 kg (182 lb 1.6 oz), SpO2 97 %., Body massindex is 24.03 kg/m??. Temp: [97.8 ??F (36.6 ??C)] 97.8 ??F (36.6 ??C) Pulse: [89-108] 89 Resp: [14-25] 14 BP: (147-179)/(92-120) 147/97 Physical Exam Constitutional: He is oriented to person, place, and time and well-developed, well-nourished, and in no distress. No distress. HENT: Head: Normocephalic and atraumatic. Right Ear: External ear normal. Left Ear: External ear normal. Nose: Nose normal. Mouth/Throat: Oropharynx is clear and moist. Tongue and lips moderately swollen. Pt drooling slightly. Eyes: Pupils are equal, round, and reactive to light. Conjunctivae and EOM are normal. Right eye exhibits no discharge. Left eye exhibits no discharge. No scleral icterus. Neck: Normal range of motion. Neck supple. No tracheal deviation present. No thyromegaly present. Cardiovascular: Normal rate, regular rhythm, normal heart sounds and intact distal pulses. Exam reveals no gallop and no friction rub. No murmur heard. Pulmonary/Chest: Effort normal. No stridor. No respiratory distress. He has no wheezes. He has no rales. Abdominal: Soft. He exhibits no distension and no mass. There is no abdominal tenderness. There is no guarding. Musculoskeletal: Normal range of motion. General: No tenderness, deformity or edema. Lymphadenopathy: He has no cervical adenopathy. Neurological: He is alert and oriented to person, place, and time. He exhibits normal muscle tone. Coordination normal. Skin: Skin is warm and dry. No rash noted. He is not diaphoretic. No erythema. Psychiatric: Mood, memory, affect and judgment normal. Labs: Recent Labs Lab 03/05/20 2219 WBC 13.3* RBC 3.49* HGB 10.3* HCT 31.0* MCV 88.8 MCH 29.5 MCHC 33.2 PLT 235 RDW 15.6* MPV 10.3 PERNEU 85.3 PERLYM 10.9 PERMON 2.2 LYMC 1.46 MONOC 0.30 EOSC 0.10 BASOC 0.06 DTYPE AUTOMATED DIFFERENTIAL Recent Labs Lab 03/05/20 2219 NA 127* K 4.8 CL 98* CO2 17.5* AGAP 11.5 BUN 17 CR 1.85* BUNCREATININ 9.2 GFRNON 38* GFR 44* GLU 62* CA 8.2* TP 7.3 ALB 3.5 TBIL 0.5 ALKP 68 AST 42* ALT 23 Recent Labs Lab 03/05/20 2219 PTT 25.8 INR 0.9 No results for input(s): TROP, CPK, MB in the last 168 hours. No results for input(s): LACTICACID, PROCT in the last 168 hours. No results for input(s): PH, PCO2, PO2, [id number], BICARBWB, BASEDEFICIT, BASEEXCESS in the ivmi012 hours. Cultures: Blood: No results found for this visit on 03/05/20 (from the past 168 hour(s)). Urine: No results found for this visit on 03/05/20 (from the past 168 hour(s)). Cardiac: No results found for this visit on 03/05/20. Radiology studies: No orders to display ASSESSMENT AND PLAN: Patient is a 64-year-old male with PMHx of HTN presenting with lip and tongue swelling and admitted for angioedema. #Angioedema Acute, POA, improving. Likely 2/2 to taking ACEi prior to presentation. Less concern for anaphylaxis or infectious cause d/t localized swelling, no rashes, no itching, no SOB/wheezing, and normal vital signs without fever or hypotension. ED administered: -TXA 1000 mg IV x 2 -NS 1 L bolus x 1 -Famotidine 20 mg IV -Epinephrine 0.3 mg IV -Dexamethasone 10 mg IV -1 unit FFP -Continue to monitor for resolution of sx #HTN Chronic, uncontrolled, POA, improving. Pt unsure what medication he takes normally. BP improving since presentation without any BP intervention. -Continue to monitor BP -Start HCTZ 25 mg QD, continue at D/C to tide over pt until he goes back home -Avoid giving ACEi #Hyponatremia Acute, POA, unresolved. May be 2/2 to medication effect if pt normally takes thiazide diuretic vs poor protein/high fluid intake. -1 L NS bolus -Monitor on daily BMP #Elevated creatinine Acute vs chronic, POA, unresolved. Unsure of pt baseline Cr since he is from out of town. Cr at admission 1.85. May be 2/2 to dehydration vs medication effect. -1 L NS bolus -Monitor on daily BMP Fluids: NPO, 1 L NS bolus Diet: NPO VTE Prophylaxis: None DISPOSITION: Pending clinical improvement Plan discussed with attending physician. Suraj Garibay DO Family Medicine, PGY-1 Cosigned by Brittani Reyes MD at 03/06/2020 7:14 PM CUT OUT PRESS OPERATOR OUT PRESS OPERATOR OUT PRESS OPERATOR Associated attestation - Brittani Reyes MD - 03/06/2020 7:14 PM CUT OUT PRESS OPERATOR I saw this patient and agree with the written findings. Brittani Reyes MD documented in this encounter ED Notes * Corie Marks RN - 03/06/2020 6:44 AM CST Breakfast ordered Corie Marks RN OUT PRESS OPERATOR * Shan Fernandez MD - 03/06/2020 12:52 AM CST Signout note Patient:Sadi Matthews Gender:Male Age:64-year-old CC: Chief Complaint Patient presents with ??? Allergic Reaction Care of the patient was signed out to me by my partner, Dr. Jara, at shift change. Please see their note for HPI, exam, and plan of care. I have reviewed the following information: Initial Vitals: ED Triage Vitals [03/05/202024] Enc Vitals Group BP (!) 169/120 Pulse 94 Resp 18 Temp 97.8 ??F (36.6 ??C) Temp src Axillary SpO2 100 % Weight 182 lb 1.6 oz (82.6 kg) Height 6' 1 (1.854 m) Head Circumference Peak Flow Pain Score Pain Loc Pain Edu? Excl. in GC? Last Vitals: Vitals: 03/06/20 0015 BP: (!) 147/97 Pulse: 89 Resp: 14 Temp: SpO2: 97% LABORATORY STUDIES: Results for orders placed or performed during the hospital encounter of 03/05/20 CBC W/DIFF AUTOMATED Result Value Ref Range WBC 13.3 (H) 4.5 - 11.0 x10'3/uL RBC 3.49 (L) 4.70 - 6.10 x10'6/uL HGB 10.3 (L) 14.0 - 18.0 G/DL HCT 31.0 (L) 43.0 - 54.0 % MCV 88.8 80.0 - 94.0 FL MCH 29.5 27.0 - 31.0 PG MCHC 33.2 32.0 - 36.0 G/DL RDW 15.6 (H) 11.5 - 14.5 % PLT 235 130 - 400 x10'3/uL MPV 10.3 9.3 - 12.2 FL DIFFERENTIAL TYPE AUTOMATED DIFFERENTIAL NEUTROPHILS 85.3 % LYMPHOCYTES 10.9 % MONOCYTES 2.2 % EOSINOPHILS 0.7 % BASOPHILS 0.4 % IMMATURE GRANS 0.5 % ABS. NEUTROPHILS TOTAL 11.35 (H) 1.80 - 7.70 x10'3/uL ABS. LYMPHOCYTES 1.46 1.00 - 4.80 x10'3/uL ABS. MONOCYTES 0.30 0.30 - 0.82 x10'3/uL ABS. EOSINOPHILS 0.10 0.04 - 0.54 x10'3/uL ABS. BASOPHILS 0.06 0.01 - 0.08 x10'3/uL ABS. IMMATURE GRANULOCYTES 0.07 0.00 - 0.49 x10'3/uL COMPREHENSIVE METABOLIC PANEL Result Value Ref Range GLUCOSE 62 (L) 70 - 99 MG/DL BUN 17 7 - 18 MG/DL CREATININE S/P/B 1.85 (H) 0.7 - 1.3 MG/DL SODIUM 127 (L) 136 - 145 MMOL/L POTASSIUM 4.8 3.5 - 5.1 MMOL/L CHLORIDE S/P/B 98 (L) 100 - 108 MMOL/L CO2 17.5 (L) 21 - 32 MMOL/L CALCIUM 8.2 (L) 8.5 - 10.1 MG/DL BILIRUBIN TOTAL S/P/B 0.5 0.2 - 1.2 MG/DL TOTAL PROTEIN S/P/B 7.3 6.4 - 8.2 G/DL ALBUMIN S/P/B 3.5 3.4 - 5.0 G/DL AST 42 (H) 15 - 37 U/L ALT 23 16 - 60 U/L ALKALINE PHOSPHATASE S/P/B 68 50 - 136 U/L ANION GAP 11.5 5 - 15 MMOL/L BUN CREATININE RATIO 9.2 6 - 26 A/G RATIO 0.9 (L) 1.0 - 2.0 RATIO eGFR Non-Afr. Amer. 38 (L) >90 ML/MIN/1.73 M2 eGFR Afr. Amer. 44 (L) >90 ML/MIN/1.73 M2 PROTIME/INR, VENOUS Result Value Ref Range Protime 10.1 (L) 10.2 - 12.9 SEC INR 0.9 PARTIAL THROMBOPLASTIN TIME,PTT Result Value Ref Range PTT 25.8 25.1 - 36.5 SEC TYPE AND SCREEN Result Value Ref Range ABO/RH O POSITIVE ANTIBODY SCREEN NEGATIVE SAMPLE EXPIRATION: 03/08/2020,2359 ORDER FRESH FROZEN PLASMA, 1 Units Result Value Ref Range UNITS ORDERED 1 UNIT NUMBER [id number] PRODUCT: FFP LT 24HRS THAWED UNIT DIVISION 00 UNIT STATUS ISSUED ISSUE DATE/TIME PRODUCT CODE M5675W62 ABO/RH Unit O POS ABO/RH UNIT ISBT CODE 5100 UNIT EXPIRATION DATE TRANSFUSION STATUS OK TO TRANSFUSE ELECTROCARDIOGRAMS: No results found for this visit on 03/05/20. IMAGING STUDIES: No orders to display Plan: This patient was evaluated for the symptoms described in the history of present illness. He was evaluated in the context of the global COVID-19 pandemic, which necessitated consideration that the patient might be at risk for infection with the SARS-CoV-2 virus that causes COVID-19. Institutional protocols and algorithms that pertain to the evaluation of patients at risk for COVID-19 are in a state of rapid change based on information released by regulatory bodies including the CDC and federal and state organizations. These policies and algorithms were followed during the patient's care. The patient was admitted by my partner, Dr. Jara just after shift change. I was asked to continueemergent care as the patient continued to have significant lingual swelling, difficulty speaking, and there was a concern for airway compromise. After discussion with the pharmacy, and a review of the available literature, the decision was made to treat the patient with tranexamic acid. While the available literature is somewhat scant, and most of it supports the use of tranexamic acid as a bridge therapy until more advanced medications such as Icatibant or Ecallantide can be given, neither is available at our institution. Given his advanced symptoms, and the relative low risk of tranexamic acid, the risk-benefit ratio seems clearly in favor of its use. 1 g was administered over 10 minutes with a marked improvement in his symptoms. By CRASH-2 dosing guidelines an additional 1 g has been ordered over the next 8 hours. This was discussed with the inpatient team. Diagnosis: Clinical Impression Angioedema (Primary) Hypertension Disposition: Admit Shan Fernandez MD 03/06/20 0110 OUT PRESS OPERATOR * Demond Jara MD,PHD - 03/05/2020 9:09 PM CST [place], [place] EMERGENCY DEPARTMENT ENCOUNTER Chief Complaint Chief Complaint Patient presents with ??? 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 Patient is visiting from out of town and states he forgot to bring his blood pressure medication with him so he took one of his friends lisinopril this evening. Patient with tongue and lip swelling. He is able to speak in full sentences, though with garbled speech, and in no acute distress. Denies any shortness of breath. EMS administered 50 mg Benadryl in route and placed him on 4L for comfort measures. History is limited due to the urgency of the patient's condition, and due to his difficulty with coherent speech. Medical History ALLERGIES: Allergies Allergen Reactions ??? Lisinopril Anaphylaxis MEDICATIONS: Prior to Admission medications Medication Sig Start Date End Date Taking? Authorizing Provider Cholecalciferol (VITAMIN D3) 50 MCG (1999 UT) Tab Take 2,000 Units by mouth daily. Yes Doc Abstract multi vitamin/minerals tablet Take 1 tablet by mouth daily. Yes Doc Abstract PAST MEDICAL HISTORY: Past Medical History: Diagnosis Date ??? Hypertension PAST SURGICAL HISTORY: History reviewed. No pertinent surgical history. FAMILY HISTORY: Multiple family members with hypertension SOCIAL HISTORY: Social History Tobacco Use ??? Smoking status: Current Every Day Smoker ??? Smokeless tobacco: Never Used Substance Use Topics ??? Alcohol use: Yes Alcohol/week: 8.3 standard drinks Types: 5 Shots of liquor per week ??? Drug use: Never Review of Systems Review of Systems Constitutional: Negative for chills and fever. HENT: Positive for drooling. Negative for sore throat. Tongue and lip swelling Eyes: Negative for pain. Respiratory: Negative for cough and shortness of breath. Cardiovascular: Negative for chest pain. Gastrointestinal: Negative for abdominal pain, diarrhea and nausea. Endocrine: Negative for polyuria. Genitourinary: Negative for dysuria. Skin: Negative for rash. Allergic/Immunologic: Allergic reaction Neurological: Negative for dizziness and headaches. Psychiatric/Behavioral: Negative for behavioral problems. See HPI for further details. All systems negative except as marked. Physical Exam Filed Vitals: 03/05/20202403/05/20 2045 03/05/20 2200 03/06/20 0015 BP: (!) 169/120 (!) 150/92 (!) 179/117 (!) 147/97 Pulse: 94 103 108 89 Resp: 18 24 25 14 Temp: 97.8 ??F (36.6 ??C) TempSrc: Axillary SpO2: 100% 99% 100% 97% Weight: 82.6 kg (182 lb 1.6 oz) Height: 6' 1 (1.854 m) Physical Exam Vitals signs and nursing note reviewed. Constitutional: Appearance: He is well-developed. HENT: Head: Normocephalic and atraumatic. Mouth/Throat: Pharynx: Uvula midline. Comments: Angioedema of the upper and lower lip as well as tongue. The patient is able to phonate, though with poorly intelligible speech due to swelling of his tongue. He is in no respiratory distress suggestive of airway compromise. He is also poorly handling his secretions as he is drooling. Eyes: Conjunctiva/sclera: Conjunctivae normal. Neck: Musculoskeletal: Neck supple. Cardiovascular: Rate and Rhythm: Normal rate and regular rhythm. Pulmonary: Effort: Pulmonary effort is normal. Breath sounds: Normal breath sounds. No stridor. Abdominal: General: Bowel sounds are normal. Palpations: Abdomen is soft. Tenderness: There is no abdominal tenderness. Musculoskeletal: General: No deformity. Skin: General: Skin is warm and dry. Neurological: Mental Status: He is alert and oriented to person, place, and time. Diagnostic Studies / Procedures ELECTROCARDIOGRAMS: No results found for this visit on 03/05/20. LABORATORY STUDIES: Results for orders placed or performed during the hospital encounter of 03/05/20 CBC W/DIFF AUTOMATED Result Value Ref Range WBC 13.3 (H) 4.5 - 11.0 x10'3/uL RBC 3.49 (L) 4.70 - 6.10 x10'6/uL HGB 10.3 (L) 14.0 - 18.0 G/DL HCT 31.0 (L) 43.0 - 54.0 % MCV 88.8 80.0 - 94.0 FL MCH 29.5 27.0 - 31.0 PG MCHC 33.2 32.0 - 36.0 G/DL RDW 15.6 (H) 11.5 - 14.5 % PLT 235 130 - 400 x10'3/uL MPV 10.3 9.3 - 12.2 FL DIFFERENTIAL TYPE AUTOMATED DIFFERENTIAL NEUTROPHILS 85.3 % LYMPHOCYTES 10.9 % MONOCYTES 2.2 % EOSINOPHILS 0.7 % BASOPHILS 0.4 % IMMATURE GRANS 0.5 % ABS. NEUTROPHILS TOTAL 11.35 (H) 1.80 - 7.70 x10'3/uL ABS. LYMPHOCYTES 1.46 1.00 - 4.80 x10'3/uL ABS. MONOCYTES 0.30 0.30 - 0.82 x10'3/uL ABS. EOSINOPHILS 0.10 0.04 - 0.54 x10'3/uL ABS. BASOPHILS 0.06 0.01 - 0.08 x10'3/uL ABS. IMMATURE GRANULOCYTES 0.07 0.00 - 0.49 x10'3/uL COMPREHENSIVE METABOLIC PANEL Result Value Ref Range GLUCOSE 62 (L) 70 - 99 MG/DL BUN 17 7 - 18 MG/DL CREATININE S/P/B 1.85 (H) 0.7 - 1.3 MG/DL SODIUM 127 (L) 136 - 145 MMOL/L POTASSIUM 4.8 3.5 - 5.1 MMOL/L CHLORIDE S/P/B 98 (L) 100 - 108 MMOL/L CO2 17.5 (L) 21 - 32 MMOL/L CALCIUM 8.2 (L) 8.5 - 10.1 MG/DL BILIRUBIN TOTAL S/P/B 0.5 0.2 - 1.2 MG/DL TOTAL PROTEIN S/P/B 7.3 6.4 - 8.2 G/DL ALBUMIN S/P/B 3.5 3.4 - 5.0 G/DL AST 42 (H) 15 - 37 U/L ALT 23 16 - 60 U/L ALKALINE PHOSPHATASE S/P/B 68 50 - 136 U/L ANION GAP 11.5 5 - 15 MMOL/L BUN CREATININE RATIO 9.2 6 - 26 A/G RATIO 0.9 (L) 1.0 - 2.0 RATIO eGFR Non-Afr. Amer. 38 (L) >90 ML/MIN/1.73 M2 eGFR Afr. Amer. 44 (L) >90 ML/MIN/1.73 M2 PROTIME/INR, VENOUS Result Value Ref Range Protime 10.1 (L) 10.2 - 12.9 SEC INR 0.9 PARTIAL THROMBOPLASTIN TIME,PTT Result Value Ref Range PTT 25.8 25.1 - 36.5 SEC TYPE AND SCREEN Result Value Ref Range ABO/RH O POSITIVE ANTIBODY SCREEN NEGATIVE SAMPLE EXPIRATION: 03/08/2020,5199 ORDER FRESH FROZEN PLASMA, 1 Units Result Value Ref Range UNITS ORDERED 1 UNIT NUMBER [id number] PRODUCT: FFP LT 24HRS THAWED UNIT DIVISION 00 UNIT STATUS ISSUED ISSUE DATE/TIME PRODUCT CODE [id number] ABO/RH Unit O POS ABO/RH UNIT ISBT CODE 5100 UNIT EXPIRATION DATE TRANSFUSION STATUS OK TO TRANSFUSE IMAGING STUDIES No orders to display ED Course / Medical Decision Making The patient presented shortly after taking lisinopril from his relative with angioedema. Anaphylaxis treatments including epinephrine, famotidine, Pepcid, and steroids made minimal difference in his condition. Given that I had a high suspicion for bradykinin-associated reaction to lisinopril, I ordered an FFP transfusion as there is some evidence to support this. I discussed the patient with the ICU attending, who requests that the patient be observed on the floor as opposed to the ICU. He had no other additional recommendations. I discussed the case with the oncoming ED physician, who ordered TXA which is also somewhat supported by evidence to be helpful in bradykinin associated angioedema. Following these interventions, the patient appeared to be significantly improved, but with persistent symptoms. Because of this, the patient requires observation/admission for continued monitoring ofhis airway. Critical care time time (40 minutes) spent evaluating, managing, documenting and providing care to the critical patient. This involved decision making of high complexity to assess, manipulate, and support vital organ system failure and/or to prevent further life threatening deterioration of the patient's condition. Time spent included being at the bedside, reviewing test results, discussing the case with staff, documenting the medical record and time spent with family members; excluding any procedures. Data reviewed: All current, pertinent and timely studies (laboratory, imaging, and procedures) wereordered and results reviewed by me unless otherwise noted. Triage notes and available nursing notesreviewed. Previous medical record reviewed when available. Repeat vital signs reviewed. Medications sodium chloride 0.9% infusion (has no administration in time range) tranexamic acid (CYKLOKAPRON) 1,000 mg in sodium chloride 0.9 % 250 mL (1,000 mg Intravenous New Bag 03/06/2028) sodium chloride 0.9% bolus infusion SOLN 1,000 mL (has no administration in time range) dexamethasone PF (DECADRON) injection 10 mg (0 mg Intravenous Override Pull 03/05/202022) famotidine (PEPCID) injection 20 mg (20 mg Intravenous Given 03/05/202021) EPINEPHrine PF (ADRENALIN) 1 mg/mL injection 0.3 mg (0.3 mg Intramuscular Given 03/05/202020) dexamethasone PF (DECADRON) 10 MG/ML injection (10 mg Given 03/05/202022) famotidine (PEPCID) 20 MG/2ML injection ( Override Pull 03/06/208) tranexamic acid (CYKLOKAPRON) 1,000 mg in sodium chloride 0.9 % 50 mL (0 mg Intravenous Infusion Stop Time 03/06/20 0000) Clinical Impression Angioedema (Primary) Hypertension Disposition: Admitted to [facility] for further evaluation and treatment ILuisa Jos, acting as a scribe, am personally taking down the notes in the presence of Demond Jara MD,PHD. Take no action on this note until reviewed and authenticated by the physician. Demond Jara MD,PHD 03/06/20 0039 OUT PRESS OPERATOR * Corie Marks RN - 03/05/2020 8:32 PM CST Pt alert talking airway intact, pt has significant tongue swelling after family member gave him 1 lisinopril. Corie Marks RN OUT PRESS OPERATOR * Corie Marks RN - 03/05/2020 8:29 PM CST Pt arrived by ems from home reports taking 1 lisinopril aprx 30 minutes prior to arrival and had facial and tongue swelling. Pt reports family member gave him the medication. Pt arrived 100% oxygen on room air talking with airway intact. Corie Marsk RN OUT PRESS OPERATOR * Herlinda Mathew RN - 03/05/2020 8:13 PM CST Bed: 10 Expected date: Expected time: Means of arrival: Comments: [id number] to 10 OUT PRESS OPERATOR documented in this encounter Plan of Treatment Not on file documented as of this encounter Goals Goal Patient Goal Type Associated Problems Recent Progress Patient-Stated? Author Consistently take medications as Prescribed General Delia Shipley RN documented as of this encounter Procedures Procedure Name Priority Date/Time Associated Diagnosis Comments BASIC METABOLIC PANEL Routine 03/07/2020 6:40 AM CUT OUT PRESS OPERATOR BASIC METABOLIC PANEL STAT 03/06/2020 3:05 PM CUT OUT PRESS OPERATOR BASIC METABOLIC PANEL STAT 03/06/2020 12:08 PM CUT OUT PRESS OPERATOR ECG 12-LEAD STAT 03/06/2020 6:34 AM CUT OUT PRESS OPERATOR BASIC METABOLIC PANEL STAT 03/06/2020 6:14 AM CUT OUT PRESS OPERATOR TROPONIN, QUANT STAT 03/06/2020 6:14 AM CUT OUT PRESS OPERATOR BASIC METABOLIC PANEL STAT 03/06/2020 4:51 AM CUT OUT PRESS OPERATOR CBC W/DIFF AUTOMATED STAT 03/06/2020 4:51 AM CUT OUT PRESS OPERATOR ORDER FRESH FROZEN PLASMA STAT 03/05/2020 10:19 PM CUT OUT PRESS OPERATOR TYPE & SCREEN STAT 03/05/2020 10:19 PM CUT OUT PRESS OPERATOR PARTIAL THROMBOPLASTIN TIME,PTT STAT 03/05/2020 10:19 PM CUT OUT PRESS OPERATOR PROTHROMBIN TIME, VENOUS STAT 03/05/2020 10:19 PM CUT OUT PRESS OPERATOR COMPREHENSIVE METABOLIC PANEL STAT 03/05/2020 10:19 PM CUT OUT PRESS OPERATOR CBC W/DIFF AUTOMATED STAT 03/05/2020 10:19 PM CUT OUT PRESS OPERATOR documented in this encounter Results * (ABNORMAL) BASIC METABOLIC PANEL (03/07/2020 6:40 AM CUT OUT PRESS OPERATOR) GLUCOSE 130(H) 70 - 99 MG/DL 03/07/2020 7:39 AM CUT OUT PRESS OPERATOR [facility] BUN 29(H) 7 - 18 MG/DL 03/07/2020 7:39 AM CUT OUT PRESS OPERATOR [facility] CREATININE S/P/B 2.24(H) 0.7 - 1.3 MG/DL 03/07/2020 7:39 AM CUT OUT PRESS OPERATOR [facility] SODIUM S/P/B 136 136 - 145 MMOL/L 03/07/2020 7:39 AM [facility] POTASSIUM S/P/B 3.8 3.5 - 5.1 MMOL/L 03/07/2020 7:39 AM [facility] CHLORIDE S/P/B 103 100 - 108 MMOL/L 03/07/2020 7:39 AM [facility] CO2 22.8 21 - 32 MMOL/L 03/07/2020 7:39 AM [facility] CALCIUM S/P/B 9.2 8.5 - 10.1 MG/DL 03/07/2020 7:39 AM [facility] ANION GAP 10.2 5 - 15 MMOL/L 03/07/2020 7:39 AM [facility] BUN CREATININE RATIO 12.9 6 - 26 03/07/2020 7:39 AM [facility] EGFR NON-AFR. AMER. 30(L) >90 ML/MIN/1.7 3 M2 03/07/2020 7:39 AM [facility] EGFR AFR. AMER. 35(L) >90 ML/MIN/1.7 3 M2 03/07/2020 7:39 AM [facility] Comment: NOTE: eGFR is not calculated for patients <18 years of age. This is an estimated GFR (CKD EPI) and should not be used for calculating drug doses. 03/07/2020 6:40 AM CUT OUT PRESS OPERATOR us Abel Lizarraga MD LABORATORY Final Result [facility] [address] [place] [address], [place] [phone] * (ABNORMAL) BASIC METABOLIC PANEL (03/06/2020 3:05 PM CUT OUT PRESS OPERATOR) [facility] GLUCOSE 153(H) 70 - 99 MG/DL 03/06/2020 3:46 PM [facility] BUN 25(H) 7 - 18 MG/DL 03/06/2020 3:46 PM [facility] CREATININE S/P/B 2.39(H) 0.7 - 1.3 MG/DL 03/06/2020 3:46 PM [facility] SODIUM S/P/B 135(L) 136 - 145 MMOL/L 03/06/2020 3:46 PM [facility] POTASSIUM S/P/B 4.7 3.5 - 5.1 MMOL/L 03/06/2020 3:46 PM [facility] CHLORIDE S/P/B 106 100 - 108 MMOL/L 03/06/2020 3:46 PM [facility] CO2 17.8(L) 21 - 32 MMOL/L 03/06/2020 3:46 PM [facility] CALCIUM S/P/B 8.2(L) 8.5 - 10.1 MG/DL 03/06/2020 3:46 PM [facility] ANION GAP 11.2 5 - 15 MMOL/L 03/06/2020 3:46 PM [facility] BUN CREATININE RATIO 10.5 6 - 26 03/06/2020 3:46 PM [facility] EGFR NON-AFR. AMER. 28(L) >90 ML/MIN/1.7 3 M2 03/06/2020 3:46 PM [facility] EGFR AFR. AMER. 32(L) >90 ML/MIN/1.7 3 M2 03/06/2020 3:46 PM [facility] Comment: NOTE: eGFR is not calculated for patients <18 years of age. This is an estimated GFR (CKD EPI) and should not be used for calculating drug doses. 03/06/2020 3:05 PM CUT OUT PRESS OPERATOR Justus Baer MD LABORATORY Final Result [facility] [address] [place] [address], * (ABNORMAL) BASIC METABOLIC PANEL (03/06/2020 12:08 PM CUT OUT PRESS OPERATOR) Pathologist [facility] GLUCOSE 88 70 - 99 MG/DL 03/06/2020 12:45 PM CUT OUT PRESS OPERATOR [facility] BUN 24(H) 7 - 18 MG/DL 03/06/2020 12:45 PM [facility] CREATININE S/P/B 2.34(H) 0.7 - 1.3 MG/DL 03/06/2020 12:45 PM CUT OUT PRESS OPERATOR [facility] SODIUM S/P/B 132(L) 136 - 145 MMOL/L 03/06/2020 12:45 PM CUT OUT PRESS OPERATOR [facility] POTASSIUM S/P/B 5.8(H) 3.5 - 5.1 MMOL/L 03/06/2020 12:45 PM CUT OUT PRESS OPERATOR [facility] CHLORIDE S/P/B 102 100 - 108 MMOL/L 03/06/2020 12:45 PM CUT OUT PRESS OPERATOR [facility] CO2 18.8(L) 21 - 32 MMOL/L 03/06/2020 12:45 PM CUT OUT PRESS OPERATOR [facility] CALCIUM S/P/B 9.1 8.5 - 10.1 MG/DL 03/06/2020 12:45 PM CUT OUT PRESS OPERATOR [facility] ANION GAP 11.2 5 - 15 MMOL/L 03/06/2020 12:45 PM CUT OUT PRESS OPERATOR [facility] BUN CREATININE RATIO 10.3 6 - 26 03/06/2020 12:45 PM CUT OUT PRESS OPERATOR [facility] EGFR NON-AFR. AMER. 29(L) >90 ML/MIN/1.7 3 M2 03/06/2020 12:45 PM CUT OUT PRESS OPERATOR [facility] EGFR AFR. AMER. 33(L) >90 ML/MIN/1.7 3 M2 03/06/2020 12:45 PM CUT OUT PRESS OPERATOR [facility] Comment: NOTE: eGFR is not calculated for patients <18 years of age. This is an estimated GFR (CKD EPI) and should not be used for calculating drug doses. 03/06/2020 12:0 8 PM CUT OUT PRESS OPERATOR Suraj aGribay DO LABORATORY Final Result [facility] [address] [place] [address], * ECG 12 lead (03/06/2020 6:34 AM CUT OUT PRESS OPERATOR) 03/06/2020 6:34 AM CUT OUT PRESS OPERATOR Narrative [facility] - 03/06/2020 8:52 AM CUT OUT PRESS OPERATOR ?[place] [place] ? [address] [facility] ? Test Date: ?2020-03-06 Pat Name: ? SADI MATTHEWS ? Department: ? Room: ? [id number] Gender: ? Male ? Pipe Liner: ?? MMD : ?1955 ? Requested By: SHAN May Number: [id number] ? Reading : ?? Hiram Tavares ? Measurements Intervals ?[place] ? Rate: ? 80 ? P: ?55 AK: ? 172 ?QRS: ?-6 QRSD: ? 73 ? T: ?57 QT: ? 377 ? QTc: ?436 ? Interpretive Statements SINUS RHYTHM No previous ECG available for comparison OUT PRESS OPERATOR Procedure Note Hiram Tavares, - 03/06/[address] Test Date: 2020-03-06 Pat Name: SADI MATTHEWS Department: Room: [place] [address] Gender: Male Pipe Liner: CAMERON : 1955 Requested By: SHAN FERNANDEZ Order Number: [id number] Reading MD: Hiram Tavares Measurements Intervals [place] Rate: 80 P: 55 AK: 172 QRS: -6 QRSD: 73 T: 57 QT: 377 QTc: 436 Interpretive Statements SINUS RHYTHM No previous ECG available for comparison OUT PRESS OPERATOR Shan Fernandez MD ECG ORDERABLES Final Result Performing Organization Address City/[facility]/ZIP Co de Phone Number [facility] * TROPONIN, QUANT (03/06/2020 6:14 AM CUT OUT PRESS OPERATOR) TROPONIN I <0.015 <0.045 ng/mL. 03/06/2020 7:11 AM CUT OUT PRESS OPERATOR [facility] Comment: HIGH DOSES OF BIOTIN MAY INTERFERE WITH THIS TEST RESULT. CORRELATION TO CLINICAL HISTORY AND PRESENTATION RECOMMENDED. 03/06/2020 6:14 AM CUT OUT PRESS OPERATOR Shan Fernandez MD LABORATORY Final Result [facility] [address] [place] [address], [place] [phone] * (ABNORMAL) BASIC METABOLIC PANEL (03/06/2020 6:14 AM CUT OUT PRESS OPERATOR) GLUCOSE 66(L) 70 - 99 MG/DL 03/06/2020 7:11 AM CUT OUT PRESS OPERATOR [facility] BUN 20(H) 7 - 18 MG/DL 03/06/2020 7:11 AM CUT OUT PRESS OPERATOR [facility] CREATININE S/P/B 1.93(H) 0.7 - 1.3 MG/DL 03/06/2020 7:11 AM [facility] SODIUM S/P/B 132(L) 136 - 145 MMOL/L 03/06/2020 7:11 AM [facility] POTASSIUM S/P/B 6.1(H) 3.5 - 5.1 MMOL/L 03/06/2020 7:11 AM [facility] CHLORIDE S/P/B 104 100 - 108 MMOL/L 03/06/2020 7:11 AM [facility] CO2 13.8(L) 21 - 32 MMOL/L 03/06/2020 7:11 AM [facility] CALCIUM S/P/B 8.5 8.5 - 10.1 MG/DL 03/06/2020 7:11 AM [facility] ANION GAP 14.2 5 - 15 MMOL/L 03/06/2020 7:11 AM [facility] BUN CREATININE RATIO 10.4 6 - 26 03/06/2020 7:11 AM [facility] EGFR NON-AFR. AMER. 36(L) >90 ML/MIN/1.7 3 M2 03/06/2020 7:11 AM [facility] EGFR AFR. AMER. 42(L) >90 ML/MIN/1.7 3 M2 03/06/2020 7:11 AM [facility] Comment: NOTE: eGFR is not calculated for patients <18 years of age. This is an estimated GFR (CKD EPI) and should not be used for calculating drug doses. 03/06/2020 6:14 AM CUT OUT PRESS OPERATOR Shan Fernandez MD LABORATORY Final Result [facility] [address] [place] [address], [place] [phone] * (ABNORMAL) BASIC METABOLIC PANEL (03/06/2020 4:51 AM [facility]) [facility] GLUCOSE 70 70 - 99 MG/DL 03/06/2020 6:03 AM [facility] BUN 18 7 - 18 MG/DL 03/06/2020 6:03 AM [facility] CREATININE S/P/B 1.95(H) 0.7 - 1.3 MG/DL 03/06/2020 6:03 AM [facility] SODIUM S/P/B 129(L) 136 - 145 MMOL/L 03/06/2020 6:03 AM [facility] POTASSIUM S/P/B 6.3(HH) 3.5 - 5.1 MMOL/L 03/06/2020 6:03 AM [facility] Comment: RLS CALLED CRITICAL RESULTS AT 06Mar2020 TO AND READ BACK BY CORIE MARKS CHLORIDE S/P/B 102 100 - 108 MMOL/L 03/06/2020 6:03 AM [facility] CO2 15.3(L) 21 - 32 MMOL/L 03/06/2020 6:03 AM [facility] CALCIUM S/P/B 8.6 8.5 - 10.1 MG/DL 03/06/2020 6:03 AM [facility] ANION GAP 11.7 5 - 15 MMOL/L 03/06/2020 6:03 AM [facility] BUN CREATININE RATIO 9.2 6 - 26 03/06/2020 6:03 AM [facility] EGFR NON-AFR. AMER. 36(L) >90 ML/MIN/1.7 3 M2 03/06/2020 6:03 AM [facility] EGFR AFR. AMER. 42(L) >90 ML/MIN/1.7 3 M2 03/06/2020 6:03 AM [facility] Comment: NOTE: eGFR is not calculated for patients <18 years of age. This is an estimated GFR (CKD EPI) and should not be used for calculating drug doses. 03/06/2020 4:51 AM CUT OUT PRESS OPERATOR Jac Dutton DO LABORATORY Final Result [facility] [address] [place] [address], [place] [phone] * (ABNORMAL) CBC W/DIFF AUTOMATED (03/06/2020 4:51 AM CUT OUT PRESS OPERATOR) WBC 8.0 4.5 - 11.0 x10'3/uL 03/06/2020 5:14 AM [facility] RBC 3.56(L) 4.70 - 6.10 x10'6/uL 03/06/2020 5:14 AM [facility] HGB 10.8(L) 14.0 - 18.0 G/DL 03/06/2020 5:14 AM [facility] HCT 31.6(L) 43.0 - 54.0 % 03/06/2020 5:14 AM [facility] MCV 88.8 80.0 - 94.0 FL 03/06/2020 5:14 AM [facility] MCH 30.3 27.0 - 31.0 PG 03/06/2020 5:14 AM [facility] MCHC 34.2 32.0 - 36.0 G/DL 03/06/2020 5:14 AM [facility] RDW 15.5(H) 11.5 - 14.5 % 03/06/2020 5:14 AM [facility] PLT 249 130 - 400 x10'3/uL 03/06/2020 5:14 AM [facility] MPV 10.6 9.3 - 12.2 FL 03/06/2020 5:14 AM [facility] DIFFERENTIAL TYPE MANUAL DIFFERENTIAL 03/06/2020 5:40 AM [facility] SEG NEUTROPHILS 93 % 5:40 AM [facility] LYMPHOCYTES 6 % 03/06/2020 5:40 AM [facility] MONOCYTES 1 % 03/06/2020 5:40 AM [facility] ABS. NEUTROPHILS CALCULATED 7.44 1.80 - 7.70 x10'3/uL 03/06/2020 5:40 AM [facility] ABS.LYMPHOCYTES CALCULATED 0.48(L) 1.00 - 4.80 x10'3/uL 03/06/2020 5:40 AM [facility] ABS. MONOCYTES CALCULATED 0.08(L) 0.30 - 0.82 x10'3/uL 03/06/2020 5:40 AM [facility] RBC MORPHOLOGY RBC MORPHOLOGY APPEARS NORMAL. SLIDE REVIEWED. 03/06/2020 5:40 AM [facility] PLT EST. ADEQUATE 03/06/2020 5:40 AM [facility] 03/06/2020 4:51 AM CUT OUT PRESS OPERATOR Jac Dutton DO LABORATORY Final Result [facility] [address] [place] [address], [place] [phone] * PARTIAL THROMBOPLASTIN TIME,PTT (03/05/2020 10:19 PM CUT OUT PRESS OPERATOR) PTT 25.8 25.1 - 36.5 SEC 03/05/2020 10:52 PM CUT OUT PRESS OPERATOR [facility] 03/05/2020 10:1 9 PM CUT OUT PRESS OPERATOR Demond Jara MD,PHD LABORATORY Final Resu lt Performing Organization Address City/[facility] Co de Phone Number [facility] [address] [place] [address], [place] [phone] * (ABNORMAL) PROTIME/INR, VENOUS (03/05/2020 10:19 PM CUT OUT PRESS OPERATOR) PROTIME 10.1(L) 10.2 - 12.9 SEC 03/05/2020 10:52 PM CUT OUT PRESS OPERATOR [facility] INR 0.9 03/05/2020 10:52 PM CUT OUT PRESS OPERATOR [facility] Comment: Recommended INR Therapeutic Goals: ??2.0-3.0 Routine Therapy ??2.5-3.5 Mechanical Prosthetic Valves (High Risk) 03/05/2020 10:1 9 PM CUT OUT PRESS OPERATOR Demond Jara MD,PHD LABORATORY Final Resu lt Performing Organization Address City/[facility] Co de Phone Number [facility] [address] [place] [address], [place] [phone] * (ABNORMAL) COMPREHENSIVE METABOLIC PANEL (03/05/2020 10:19 PM CUT OUT PRESS OPERATOR) GLUCOSE 62(L) 70 - 99 MG/DL 03/05/2020 10:57 PM CUT OUT PRESS OPERATOR [facility] BUN 17 7 - 18 MG/DL 03/05/2020 10:57 PM CUT OUT PRESS OPERATOR [facility] CREATININE S/P/B 1.85(H) 0.7 - 1.3 MG/DL 03/05/2020 10:57 PM [facility] SODIUM S/P/B 127(L) 136 - 145 MMOL/L 03/05/2020 10:57 PM [facility] POTASSIUM S/P/B 4.8 3.5 - 5.1 MMOL/L 03/05/2020 10:57 PM [facility] CHLORIDE S/P/B 98(L) 100 - 108 MMOL/L 03/05/2020 10:57 PM [facility] CO2 17.5(L) 21 - 32 MMOL/L 03/05/2020 10:57 PM [facility] CALCIUM S/P/B 8.2(L) 8.5 - 10.1 MG/DL 03/05/2020 10:57 PM [facility] BILIRUBIN TOTAL S/P/B 0.5 0.2 - 1.2 MG/DL 03/05/2020 10:57 PM [facility] Comment: THIS ASSAY IS NOT RECOMMENDED FOR PATIENTS UNDERGOING TREATMENT WITH ELTROMBOPAG DUE TO THE POTENTIAL FOR FALSELY ELEVATED RESULTS. TOTAL PROTEIN S/P/B 7.3 6.4 - 8.2 G/DL 03/05/2020 10:57 PM [facility] ALBUMIN S/P/B 3.5 3.4 - 5.0 G/DL 03/05/2020 10:57 PM [facility] AST 42(H) 15 - 37 U/L 03/05/2020 10:57 PM [facility] ALT 23 16 - 60 U/L 03/05/2020 10:57 PM [facility] ALKALINE PHOSPHATASE S/P/B 68 50 - 136 U/L 03/05/2020 10:57 PM [facility] ANION GAP 11.5 5 - 15 MMOL/L 03/05/2020 10:57 PM CUT OUT PRESS OPERATOR [facility] BUN CREATININE RATIO 9.2 6 - 26 03/05/2020 10:57 PM [facility] A/G RATIO 0.9(L) 1.0 - 2.0 RATIO 03/05/2020 10:57 PM [facility] EGFR NON-AFR. AMER. 38(L) >90 ML/MIN/1.7 3 M2 03/05/2020 10:57 PM CUT OUT PRESS OPERATOR [facility] EGFR AFR. AMER. 44(L) >90 ML/MIN/1.7 3 M2 03/05/2020 10:57 PM [facility] Comment: NOTE: eGFR is not calculated for patients <18 years of age. This is an estimated GFR (CKD EPI) and should not be used for calculating drug doses. 03/05/2020 10:1 9 PM CUT OUT PRESS OPERATOR us Demond Jara MD,PHD LABORATORY Final Resu lt [facility] [address] [place] [address], [place] [phone] * (ABNORMAL) CBC W/DIFF AUTOMATED (03/05/2020 10:19 PM CUT OUT PRESS OPERATOR) WBC 13.3(H) 4.5 - 11.0 x10'3/uL 03/05/2020 10:33 PM CUT OUT PRESS OPERATOR [facility] RBC 3.49(L) 4.70 - 6.10 x10'6/uL 03/05/2020 10:33 PM [facility] HGB 10.3(L) 14.0 - 18.0 G/DL 03/05/2020 10:33 PM [facility] HCT 31.0(L) 43.0 - 54.0 % 03/05/2020 10:33 PM [facility] MCV 88.8 80.0 - 94.0 FL 03/05/2020 10:33 PM [facility] MCH 29.5 27.0 - 31.0 PG 03/05/2020 10:33 PM [facility] MCHC 33.2 32.0 - 36.0 G/DL 03/05/2020 10:33 PM [facility] RDW 15.6(H) 11.5 - 14.5 % 03/05/2020 10:33 PM [facility] PLT 235 130 - 400 x10'3/uL 03/05/2020 10:33 PM [facility] MPV 10.3 9.3 - 12.2 FL 03/05/2020 10:33 PM [facility] DIFFERENTIAL TYPE AUTOMATED DIFFERENTIAL 03/05/2020 10:33 PM [facility] NEUTROPHILS % 85.3 % 03/05/2020 10:33 PM [facility] LYMPHOCYTES % 10.9 % 03/05/2020 10:33 PM [facility] MONOCYTES % 2.2 % 03/05/2020 10:33 PM [facility] EOSINOPHILS 0.7 % 03/05/2020 10:33 PM [facility] BASOPHILS 0.4 % 03/05/2020 10:33 PM [facility] IMMATURE GRANS % 0.5 % 03/05/19 10:33 PM [facility] ABS. NEUTROPHILS TOTAL 11.35(H) 1.80 - 7.70 x10'3/uL 03/05/2020 10:33 PM [facility] ABS. LYMPHOCYTES 1.46 1.00 - 4.80 x10'3/uL 03/05/2020 10:33 PM CUT OUT PRESS OPERATOR [facility] ABS. MONOCYTES 0.30 0.30 - 0.82 x10'3/uL 03/05/2020 10:33 PM CUT OUT PRESS OPERATOR [facility] ABS. EOSINOPHILS 0.10 0.04 - 0.54 x10'3/uL 03/05/2020 10:33 PM [facility] ABS. BASOPHILS 0.06 0.01 - 0.08 x10'3/uL 03/05/2020 10:33 PM [facility] ABS. IMMATURE GRANULOCYTES 0.07 0.00 - 0.49 x10'3/uL 03/05/2020 10:33 PM [facility] 03/05/2020 10:1 9 PM CUT OUT PRESS OPERATOR Demond Jara MD,PHD LABORATORY Final Resu lt [facility] [address] [place] [address], * ORDER FRESH FROZEN PLASMA, 1 Units (03/05/2020 10:19 PM CUT OUT PRESS OPERATOR) UNITS ORDERED 1 03/05/2020 9:54 PM [facility] BLOOD UNIT NUMBER [id number] 03/06/2020 12:17 AM [facility] PRODUCT: FFP LT 24HRS THAWED 03/06/2020 12:17 AM [facility] UNIT DIVISION 00 03/06/2020 12:17 AM [facility] BLOOD UNIT STATUS UNIT RELEASED 03/06/2020 6:31 AM [facility] TRANSFUSION STATUS OK TO TRANSFUSE 03/06/2020 12:17 AM CUT OUT PRESS OPERATOR [facility] 03/05/2020 10:1 9 PM CUT OUT PRESS OPERATOR Demond Jara MD,PHD BLOOD BANK PRODUCT ORDERAB LES Final Result Performing Organization Address [facility] Co de Phone Number [facility] [address] [place] [id number], [place] [phone] * TYPE AND SCREEN (03/05/2020 10:19 PM CUT OUT PRESS OPERATOR) ABO/RH O POSITIVE 03/05/2020 11:14 PM CUT OUT PRESS OPERATOR [facility] ANTIBODY SCREEN NEGATIVE 03/05/2020 11:14 PM CUT OUT PRESS OPERATOR [facility] SAMPLE EXPIRATION 03/08/2020,2 359 03/05/2020 11:14 PM CUT OUT PRESS OPERATOR [facility] 03/05/2020 10:1 9 PM CUT OUT PRESS OPERATOR Demond Jara MD,PHD BLOOD BANK TEST ORDERABLES Final Result Performing Organization Address [facility] Co de Phone Number [facility] [address] [place] [id number], [place] [phone] documented in this encounter Visit Diagnoses Diagnosis Angioedema- Primary Angioneurotic edema not elsewhere classified Hypertension Unspecified essential hypertension Angioedema due to angiotensin converting enzyme inhibitor ([place]) documented in this encounter Administered Medications Inactive Administered Medications - up to 3 most recent administrations Medication Order MAR Action Action Date Dose Rate Site amLODIPine (NORVASC) tablet 10 mg 10 mg, Oral, Daily, First dose on Wed03/06/20 at 0900, Until Discontinued Given 03/07/2020 10:00 AM CUT OUT PRESS OPERATOR 10 mg Given 03/06/2020 7:57 AM CUT OUT PRESS OPERATOR 10 mg calcium gluconate 1 g in NS 50 mL IVPB 1 g, Intravenous, at 50 mL/hr, Once, 1 dose, On Wed03/06/20 at 0630 New Bag 03/06/2020 7:28 AM CUT OUT PRESS OPERATOR 1 g 50 mL/hr dexamethasone PF (DECADRON) 10 MG/ML injection 1 dose, Starting on Wed03/05/20 at 2020, Until Wed03/05/20 at 2022, Created by cabinet override Given 03/05/2020 8:23 PM CUT OUT PRESS OPERATOR 10 mg EPINEPHrine PF (ADRENALIN) 1 mg/mL injection 0.3 mg 0.3 mg, Intramuscular, Once, 1 dose, On Wed03/05/20 at 2030 Given 03/05/2020 8:21 PM CUT OUT PRESS OPERATOR 0.3 mg Right Deltoid famotidine (PEPCID) injection 20 mg 20 mg, Intravenous, Once, 1 dose, On Wed03/05/20 at 2030, IV Push over 2 minutes Given 03/05/2020 8:22 PM CUT OUT PRESS OPERATOR 20 mg furosemide (LASIX) injection 40 mg 40 mg, Intravenous, Once, 1 dose, On Wed03/06/20 at 06, Administer IV push 20-40mg/min. Given 03/06/2020 7:57 AM CUT OUT PRESS OPERATOR 40 mg hydroCHLOROthiazide (MICROZIDE) tablet 12.5 mg 12.5 mg, Oral, Every morning, First dose on Wed03/07/20 at 1115, Until Discontinued Given 03/07/2020 11:39 AM CUT OUT PRESS OPERATOR 12.5 mg lactated ringers infusion at 130 mL/hr, Intravenous, Continuous, Starting on Wed03/06/20 at 1600, Until Wed03/07/20 at 1654 New Bag 03/07/2020 1:47 AM CUT OUT PRESS OPERATOR 130 mL/hr New Bag 03/06/2020 5:30 PM CUT OUT PRESS OPERATOR 130 mL/hr sodium chloride 0.9% bolus infusion SOLN 1,000 mL 1,000 mL, Intravenous, Administer over 15 Minutes, Bolus (Once), 1 dose, On Wed03/06/20 at 0030 New Bag 03/06/2020 4:54 AM CUT OUT PRESS OPERATOR 1,000 mLs sodium chloride 0.9% bolus infusion SOLN 1,000 mL 1,000 mL, Intravenous, Administer over 30 Minutes, Once, 1 dose, On Wed03/06/20 at 1330 New Bag 03/06/2020 1:59 PM CUT OUT PRESS OPERATOR 1,000 mLs sodium zirconium cyclosilicate (LOKELMA) packet 10 g 10 g, Oral, Once, 1 dose, On Wed03/06/20 at 0630, Administer other oral medications at least 2 hours before or 2 hours after dose. Mix packet contents with approximately 45 mL or more of water. Stir well. Administer immediately. If powder remains in glass, add water and administer again until no powder remains. Given 03/06/2020 7:27 AM CUT OUT PRESS OPERATOR 10 g tranexamic acid (CYKLOKAPRON) 1,000 mg in sodium chloride 0.9 % 250 mL 1,000 mg, Intravenous, Administer over 480 Minutes, Once, 1 dose, On Wed03/06/20 at 0015 New Bag 03/06/2020 12:29 AM CUT OUT PRESS OPERATOR 1,000 mg 31.3 mL/hr tranexamic acid (CYKLOKAPRON) 1,000 mg in sodium chloride 0.9 % 50 mL 1,000 mg, Intravenous, Administer over 10 Minutes, Once, 1 dose, On Wed03/05/20 at 2315 New Bag 03/05/2020 11:34 PM CUT OUT PRESS OPERATOR 1,000 mg 300 mL/hr documented in this encounter Active and Recently Administered Medications Times are shown in CUT OUT PRESS OPERATOR. Scheduled Medication Order 03/05/2020 03/06/2020 03/07/2020 amLODIPine (NORVASC) tablet 10 mg 10 mg, Oral, Daily, First dose on Wed03/06/20 at 0900, Until Discontinued 0757 (Given - Provider: Drea Torrez, BHARGAVI) 1000 (Given - Provider: Jackie Tirado RN) calcium gluconate 1 g in NS 50 mL IVPB (COMPLETED) 1 g, Intravenous, at 50 mL/hr, Once, 1 dose, On Wed03/06/20 at 0630 0728 (New Bag - Provider: Corie Marks, BHARGAVI)0757 (Infusion Stop Time - Provider: Drea Torrez RN) EPINEPHrine PF (ADRENALIN) 1 mg/mL injection 0.3 mg (COMPLETED) 0.3 mg, Intramuscular, Once, 1 dose, On Wed03/05/20 at 2030 2020 (Given - Provider: Corie Marks, BHARGAVI) famotidine (PEPCID) injection 20 mg (COMPLETED) 20 mg, Intravenous, Once, 1 dose, On Wed03/05/20 at 2030, IV Push over 2 minutes 2021 (Given - Provider: Corie Marks, BHARGAVI) furosemide (LASIX) injection 40 mg (COMPLETED) 40 mg, Intravenous, Once, 1 dose, On Wed03/06/20 at 0630, Administer IV push 20-40mg/min. 0757 (Given - Provider: Drea Torrez, RN) hydroCHLOROthiazide (MICROZIDE) tablet 12.5 mg 12.5 mg, Oral, Every morning, First dose on Wed03/07/20 at 1115, Until Discontinued 1139 (Given - Provider: Jackie Tirado RN) sodium chloride 0.9% bolus infusion SOLN 1,000 mL (COMPLETED) 1,000 mL, Intravenous, Administer over 15 Minutes, Bolus (Once), 1 dose, On Wed03/06/20 at 0030 0454 (New Bag - Provider: Corie Marks RN)0600 (Infusion Stop Time - Provider: Corie Marks RN) sodium chloride 0.9% bolus infusion SOLN 1,000 mL (COMPLETED) 1,000 mL, Intravenous, Administer over 30 Minutes, Once, 1 dose, On Wed03/06/20 at 1330 1359 (New Bag - Provider: Mery Stevenson RN)1430 (Infusion Stop Time - Provider: Drea Torrez RN) sodium zirconium cyclosilicate (LOKELMA) packet 10 g (COMPLETED) 10 g, Oral, Once, 1 dose, On Wed03/06/20 at 0630, Administer other oral medications at least 2 hours before or 2 hours after dose. Mix packet contents with approximately 45 mL or more of water. Stir well. Administer immediately. If powder remains in glass, add water and administer again until no powder remains. 0727 (Given - Provider: Corie Marks RN) tranexamic acid (CYKLOKAPRON) 1,000 mg in sodium chloride 0.9 % 250 mL (COMPLETED) 1,000 mg, Intravenous, Administer over 480 Minutes, Once, 1 dose, On Wed03/06/20 at 0015 0029 (New Bag - Provider: Corie Marks RN)0830 (Infusion Stop Time - Provider: Drea Torrez RN) tranexamic acid (CYKLOKAPRON) 1,000 mg in sodium chloride 0.9 % 50 mL (COMPLETED) 1,000 mg, Intravenous, Administer over 10 Minutes, Once, 1 dose, On Wed03/05/20 at 2315 2334 (New Bag - Provider: Corie Marks RN) 0000 (Infusion Stop Time - Provider: Corie Marks RN) Continuous Medication Order 03/05/2020 03/06/2020 03/07/2020 lactated ringers infusion at 130 mL/hr, Intravenous, Continuous, Starting on Wed03/06/20 at 1600, Until Ibeth 03/07/20 at 1654 1730 (New Bag - Provider: Jackie Tirado, BHARGAVI) 0147 (New Bag - Provider: Stephanie Berman RN)1200 (Infusion Stop Time - Provider: Jackie Tirado RN) No Frequency Medication Order 03/05/2020 03/06/2020 03/07/2020 dexamethasone PF (DECADRON) 10 MG/ML injection (COMPLETED) 1 dose, Starting on Wed03/05/20 at 2020, Until Wed03/05/20 at 2022, Created by cabinet override 2022 (Given - Provider: Corie Marks, BHARGAVI) documented in this encounter Care Teams Cloth Mender Relationship Specialty Start Date End Date None, Provider, PCP - General 03/06/20 03/06/20 documented as of this encounter
--- OUTSIDE RECORDS SUMMARY | 2024-03-18 18:06 | XMS_ITS | Encounter Summary ---
Author Organization [facility] Address [address] [place] [address]. [place] [address] [place] [address] Care Team Providers Care Sammying Machine Operator Name Role Phone Unavailable Primary Care Provider Unavailabl e Encounter Details Date Type Department Care Team (Late st Contact Info) Description 03/08/2020 Hospital Follow-up Call [facility] Telemetry Unit B [address] [place] [address] Renee Holland, RN Social History Tobacco Use Types Packs/Day Years Used Date Smoking Tobacco: Every Day Smokeless Tobacco: Never Alcohol Use Standard Drinks/Week Comments Yes 8.3 (1 standard drink = 0.6 oz p ure alcohol) Sex and Gender Information Value Date Recorded Sex Assigned at Not on file Legal Sex Male 8:12 PM OUTDOOR 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 No / Unsure 03/05/2020 8:19 PM OUTDOOR ILLUMINATING ENGINEER documented as of this encounter Functional Status * RETIRED Are you deaf or do you have serious difficulty hearing Answer Date of Assessment Author Status No 03/06/2020 3:01 AM OUTDOOR ILLUMINATING ENGINEER Activ e * RETIRED Are you blind or do you have serious difficulty seeing, even when wearing glasses? Answer Date of Assessment Author Status No 03/06/2020 3:01 AM OUTDOOR ILLUMINATING ENGINEER Activ e * Do you have serious [...]
--- OUTSIDE RECORDS SUMMARY | 2024-03-18 18:07 | XMS_ITS | Encounter Summary ---
Author Organization [facility] Address [address] [place] [address]. [place], [place] [id number] [place] [id number] Care Team Providers Care Copywriter Name Role Phone Unavailable Primary Care Provider Unavailabl e Encounter Details Date Type Department Care Team (Latest Contact Info) Description 03/05/2020 Travel Social History Tobacco Use Types Packs/Day Years Used Date Smoking Tobacco: Every Day Smokeless Tobacco: Never Alcohol Use Standard Drinks/Week Comments Yes 8.3 (1 standard drink = 0.6 oz p ure alcohol) Sex and Gender Information Value Date Recorded Sex Assigned at Not on file Legal Sex Male 8:12 PM PHYSICAL THERAPY TECHNICIAN Gender Identity Not on file Sexual Orientation Not on file COVID-19 Exposure Response Date Recorded In the last month, have you been in contact with someone who was confirmed or suspected to have Coronavirus / COVID-19? No / Unsure 03/05/2020 8:19 PM PHYSICAL THERAPY TECHNICIAN documented as of this encounter Plan of Treatment Not on file documented as of this encounter Visit Diagnoses Not on filedocumented in this encounter
--- OUTSIDE RECORDS SUMMARY | 2024-03-18 18:11 | XMS_ITS | CONTINUITY OF CARE DOCUMENT ---
Author Name alicia vargas Address Unknown Organization [facility] Address [address] [place] [address] [address] [place] [address] Phone [phone] Care Team Providers Care Pitch Filler Name Role Phone Amos Landrum MD Unavailable [phone] Nathan Spain MD Christoph Unavailable Nathan Spain MD Christoph Unavailable INSURANCE PROVIDERS Payer name Policy type / Coverage type [place] red libertarian ID AETNA MEDICARE GOLD ADVANTAGE HMO Medicare [id number]
--- OUTSIDE RECORDS SUMMARY | 2024-03-18 18:12 | XMS_ITS | Encounter Summary ---
Author Organization [facility] Address [address] [place] [address] Care Team Providers Care Ammonia Solution Preparer Name Role Phone Unavailable Primary Care Provider Unavailabl e Reason for Visit * Reason Comments Provider Call Encounter Details Date Type Department Care Team (Late st Contact Info) Description 12/03/2023 Telephone [facility] Primary Care - [address] [facility] [phone] [phone] [place] [id number] [place] [phone] Provider Call Social History Tobacco Use Types Packs/Day Years Used Date Smoking Tobacco: Never Assessed Sex and Gender Information Value Date Recorded Sex Assigned at Not on file Legal Sex Male 2:21 PM CLEANER WINDOW Gender Identity Not on file Sexual Orientation Not on file documented as of this encounter Miscellaneous Notes * Telephone Encounter - Abner Zhang RN - 12/03/2023 2:35 PM CDT Called [facility] to notify them that this patient has never been seen in our clinic by Dr. Ervin nor have they seen any other provider in our office. Informed harness tier that Dr. Ervin may work for other healthcare systems as well and this could be causing confusion. * Telephone Encounter - Leslie Martell - 12/03/2023 2:15 PM CDT Copied from [facility] #[id number]. Topic: [id number] Call >> Dec 03, 2023 2:11 PM Leslie Evans wrote: Caller is requesting to speak with Clinical Care Team. Caller Name: [facility] Callback Number: [phone] Clinician Type: Other healthcare professional not listed above Call Notes: Kristen is calling to say that they are unable to reach the patient in regards to the surgery date and wanted to inform , psa informed her that he has never been seen by her, pleaseadvise as she said that contacted yesterday and spoke with her please adivse. Is this addressing an immediate patient care need? No documented in this encounter Plan of Treatment Not on file documented as of this encounter Visit Diagnoses Not on filedocumented in this encounter
--- OUTSIDE RECORDS SUMMARY | 2024-03-18 18:12 | XMS_ITS | Encounter Summary ---
Author Organization [facility] Address [address] [place] [address] Care Team Providers Care Foxpro Developer Name Role Phone Unavailable Primary Care Provider Unavailabl e Reason for Visit * Auth/Cert (Routine) Specialty Diagnoses / Procedures Referred By Zeferino t Referred To Contact Diagnoses Retention, urine Procedures FL CYSTO W/SIMPLE REMOVAL STONE & STENT FL CYSTO BLADDER W/URETERAL CATHETERIZATION FL CYSTO W/[place] [address] [place] [address] Phone: tel: fax: Referral ID Status Reason Start Date Expiration Date Visits Re quested Visits Authorized [id number] 11/30/2023 1 1 Encounter Details Date Type Department Care Team (Late st Contact Info) Description 12/23/2023 2:02 PM CDT Anesthesia Event [facility] Operating Room [address] [place] [phone] Selvin Haro MD [address] [place] [address] Dale Ordaz, MARTINEZ-C [address] [place] [address] Anesthesia Record Procedure Summary Procedure Name Responsible Anesthesiologist Anesthesia Start Time Anesthesia Stop Time PYELOGRAM RETROGRADE (Bilateral: Bladder) Selvin Haro MD 12/23/23 1402 12/23/23 1453 Events Date Time Event Comment 12/23/2023 1350 AN Equip Check Anesthesia eq uipment and materials checked in accordance with local policy. 1400 1402 An Start 1404 In Room This event disp lays the In Room time documented in the Surgical Log. Deleting this event will not remove it from the log but will remove it from the Grid and Graph timeline. 1404 An Start Data 1408 Pre-Induction Immediate pre- induction anesthetic assessment performed. Vital signs as noted on graphic. 1411 An Induction 1413 An LMA 1420 Anesthesia Ready 1422 Procedure Start This event d isplays the Procedure Start time documented in the Surgical Log. Deleting this event will not remove it from the log but will remove it from the Grid and Graph timeline. 1435 Procedure Stop This event di splays the Procedure Stop time documented in the Surgical Log. Deleting this event will not remove it from the log but will remove it from the Grid and Graph timeline. 1442 Supraglottic Removed Spontan eous respirations. LMA discontinued without difficulty. Oropharynx suctioned as indicated. 1445 an stop data 1445 Out of Room This event disp lays the Out of Room time documented in the Surgical Log. Deleting this event will not remove it from the log but will remove it from the Grid and Graph timeline. 1453 An Stop 1453 Hand-off to Receiving Clinic hailee Vital Signs: Vitals Value Taken Time BP 96/64 12/23/23 1448 Temp 37.6 ??C 12/23/23 1448 Resp 10 12/23/23 1448 SpO2 100 % 12/23/23 1448 Pulse 68 12/23/23 1452 Heart Rate 67 bpm 12/23/23 1448 Meds Name Total lidocaine PF (XYLOCAINE MPF) 2% injectio n 3 mL propofol (DIPRIVAN) 10??mg/mL injection 290 mg ceFAZolin in sterile water (ANCEF) 2 gra m/20 mL IV Syringe (PREMIX) 2,000 mg 2,000 mg dexAMETHasone (DECADRON) 4 mg/mL injecti on 4 mg famotidine (pf) (PEPCID) 20 mg/2 mL inje ction 20 mg ondansetron (ZOFRAN) 4??mg/2 mL injectio n 4 mg sodium chloride 0.9% flush syringe 65 mL fentaNYL (SUBLIMAZE) PF 50??mcg/mL injec tion 50 mcg phenylephrine 1 mg/10 mL (100 mcg/mL) in jection 500 mcg * Agents Name Air Sevoflurane % Sevoflurane O2 N2O Inspired N2O O2 * Blood No blood administrations on file. Lines, Drains, and Airways Type Details Placement Removal Hemodialysis Cath Double Lumen Yes (dialysis every other day); Right; subclavian vein 12/23/23 1331 by Peripheral IV Orientation: Left, Posterior; Location: Hand; Device: Angiocath; Gauge: 20 gauge; Needle Length: 1.16 in length; Insertion Attempts: 1 (Qi BURK); Patient Tolerance: tolerated well; Pain Prevention: intradermal injection, distraction 12/23/23 1334 by Chelle Bradford RN 12/23/23 1700 by Megan Magallanes RN Incision 12/23/23; 1413; surgical incision; other (comment); urethral meatus; 12/24/23; 0501 12/23/23 1413 by Chelle Levine RN 12/24/23 0501 by PROVIDER, DISCHARGE PATIENT Indwelling Urethral Catheter 12/23/23; 1430; Indwelling double lumen catheter; latex; 16 Fr; inserted; 1; 10; 10; 12/24/23; 0501 12/23/23 1430 by Chelle Levine, RN 12/24/23 0501 by PROVIDER, DISCHARGE PATIENT documented in this encounter Social History Tobacco Use Types Packs/Day Years Used Date Smoking Tobacco: Every Day Cigarettes 1 21 Started: 2003 Alcohol Use Standard Drinks/Week Comments Yes 1 (1 standard drink = 0.6 oz pur e alcohol) 1 per week Feeling Safe Answer Date Recorded Are you in a relationship wi th someone who hurts you emotionally and/or physically? No 12/23/2023 Sex and Gender Information Value Date Recorded Sex Assigned at Not on file Legal Sex Male 2:21 PM STRAIN TECHNICIAN Gender Identity Not on file Sexual Orientation Not on file documented as of this encounter OR Notes * Anesthesia Postprocedure Evaluation - Selvin Haro MD - 12/23/2023 3:05 PM CDT Post Anesthesia Evaluation Vitals: Vitals Value Taken Time BP 105/73 12/23/23 1500 Temp 37.6 ??C 12/23/23 1448 Resp 11 12/23/23 1500 SpO2 100 % 12/23/23 1500 Pulse 71 12/23/23 1500 Heart Rate 71 bpm 12/23/23 1500 Pain Rating: Pain Rating: Rest: 0 (12/23/23 1329) Presence of Pain: denies pain/discomfort (12/23/23 1502) Anesthesia Post Evaluation Patient location during evaluation: PACU Patient participation: patient was able to participate in the post op evaluation Level of consciousness: 0 = alert, responsive, answers simple questions appropriately, able to perform simple tasks Pain management: adequate Airway patency: patent Nausea or Vomiting: none Cardiovascular status: regular rate and rhythm Respiratory status: no respiratory symptoms Hydration status: well hydrated No notable events documented. Selvin Haro MD * Anesthesia Handoff - Dale Ordaz AA-C - 12/23/2023 2:53 PM CDT Post-Anesthetic transfer of care report elements to appropriate post-anesthesia recovery environment completed in accordance with procedure. I completed my handoff to the receiving nurse during which we: 1. Identified the patient 2. Identified the responsible provider 3. Reviewed the pertinent medical history 4. Discussed the surgical course 5. Reviewed intra-op anesthesia management and issues during anesthesia 6. Set expectations for post-procedure period 7. Orders as necessary and appropriate for continuation of care are present in Epic. 8. Allowed opportunity for questions and acknowledgement of understanding. Vital Signs: Vitals Value Taken Time BP 96/64 12/23/23 1448 Temp 37.6 ??C 12/23/23 1448 Resp 10 12/23/23 1448 SpO2 100 % 12/23/23 1448 Pulse 68 12/23/23 1452 Heart Rate 67 bpm 12/23/23 1448 Vitals shown include unfiled device data. 2:53 PM LOUISE Condon * Anesthesia Preprocedure Evaluation - Selvin Haro MD - 12/23/2023 1:55 PM CDT 68 y.o. with ESRD on H.D., with HTN, Anesthesia Evaluation Airway Mallampati: IV TM distance: >3 FB Dental (+) upper dentures and lower dentures Pulmonary - negative ROS breath sounds clear to auscultation Cardiovascular (+) hypertension (-) past MT, CAD Rhythm: regular Rate: normal Neuro/Psych - negative ROS GI/Hepatic/Renal (+) chronic renal disease ESRD (-) GERD, liver disease Endo/Other (-) diabetes mellitus, hypothyroidism Abdominal Anesthesia History No history of anesthetic complications and no history of malignant hyperthermia. Anesthesia Plan ASA Final: 3 General Intravenous induction Oral ETT airway maintenance NPO status > 8 hours Anesthetic plan and risks discussed with Patient. Plan discussed with Ware Cleaner. documented in this encounter Plan of Treatment Not on file documented as of this encounter Visit Diagnoses Not on filedocumented in this encounter Administered Medications Inactive Administered Medications - up to 3 most recent administrations Medication Order MAR Action Action Date Dose Rate Site ceFAZolin in sterile water (ANCEF) 2 gram/20 mL IV Syringe (PREMIX) 2,000 mg 2,000 mg, IV, PRE-PROCEDURE ONCE, 1 dose, Starting on Ibeth 12/23/23 at 1234, Until Ibeth 12/23/23 at 1420, Routine, Antibiotic Indication: Surgical prophylaxis New Bag 12/23/2023 2:15 PM CDT 2,000 mg dexAMETHasone (DECADRON) 4 mg/mL injection IV, INTRA-PROCEDURE PRN, Starting on Ibeth 12/23/23 at 1419, Until Ibeth 12/23/23 at 1453, Routine, Anesthesia Intra-op Given 12/23/2023 2:19 PM CDT 4 mg famotidine PF (PEPCID) 20 mg/2 mL injection IV, INTRA-PROCEDURE PRN, Starting on Ibeth 12/23/23 at 1419, Until Ibeth 12/23/23 at 1453, Routine, Anesthesia Intra-op Given 12/23/2023 2:19 PM CDT 20 mg fentaNYL PF (SUBLIMAZE) 50 mcg/mL injection IV, INTRA-PROCEDURE PRN, Starting on Ibeth 12/23/23 at 1420, Until Ibeth 12/23/23 at 1453, Routine, Anesthesia Intra-op Given 12/23/2023 2:27 PM CDT 25 mcg Given 12/23/2023 2:20 PM CDT 25 mcg lidocaine PF 2% (XYLOCAINE MPF) injection Infiltration, INTRA-PROCEDURE PRN, Starting on Ibeth 12/23/23 at 1411, Until Ibeth 12/23/23 at 1453, Routine, Anesthesia Intra-op Given 12/23/2023 2:11 PM CDT 3 mL ondansetron (ZOFRAN) 4 mg/2 mL injection IV, INTRA-PROCEDURE PRN, Starting on Ibeth 12/23/23 at 1419, Until Ibeth 12/23/23 at 1453, Routine, Anesthesia Intra-op Given 12/23/2023 2:19 PM CDT 4 mg phenylephrine syringe IV, INTRA-PROCEDURE PRN, Starting on Ibeth 12/23/23 at 1417, Until Ibeth 12/23/23 at 1453, Routine, Anesthesia Intra-op Given 12/23/2023 2:36 PM CDT 200 mcg Given 12/23/2023 2:27 PM CDT 100 mcg Given 12/23/2023 2:17 PM CDT 200 mcg propofoL (DIPRIVAN) injection IV, INTRA-PROCEDURE PRN, Starting on Ibeth 12/23/23 at 1411, Until Ibeth 12/23/23 at 1453, Anesthesia Intra-op Given 12/23/2023 2:27 PM CDT 30 mg Given 12/23/2023 2:23 PM CDT 30 mg Given 12/23/2023 2:18 PM CDT 30 mg sodium chloride flush injection IV, INTRA-PROCEDURE PRN, Starting on Ibeth 12/23/23 at 1412, Until Ibeth 12/23/23 at 1453, Routine, Anesthesia Intra-op Given 12/23/2023 2:36 PM CDT 10 mL Given 12/23/2023 2:30 PM CDT 10 mL Given 12/23/2023 2:25 PM CDT 10 mL documented in this encounter
--- OUTSIDE RECORDS SUMMARY | 2024-03-18 18:12 | XMS_ITS ---
Author Organization [facility] Address [address] [place] [phone] Care Team Providers Care Magnetic Resonance Imaging Director Name Role Phone -[facility]. Primary Care Provider [phone] Dr. Bridgett Hernandez Unavailable [phone] Aniya Huang Unavailable [phone] REASON FOR VISIT f/u and re-est care Encounters Encounter Location Date Provider Diagnosis E [facility] [address] [place] [phone] 12/25/2022 Aniya Huang Essential (primary) hypertension I10 Assessments Encounter Date Diagnosis (ICD Code) Assessment Notes Treatment Notes Treatment Clinical Notes Section Notes 12/25/2022 Essential (primary) hypertension (ICD-10 - I10) Plan Of Treatment Pending Test Test Name Order Date COMPREHENSIVE METABOLIC PANEL W/GFR ([facility]) 12/25/2022 RENAL FUNCTION PANEL 12/25/2022 CBC (INCLUDES DIFF/PLT) [facility] 12/25/2022 MICROALBUMIN, RANDOM URINE (W/CREATININE ) 12/25/2022 LIPID PANEL, STANDARD ([facility]) 12/25/2022 Progress Notes * Niesha CEJADOB:[birth year] (68 yo M)Acc No.[id number]:12/25/2022 PROGRESS NOTE Patient:?Niesha CEJA Provider:?Aniya Huang MD :1955???Age:67 Y???Sex:Male Maxx e:12/25/2022 [facility] Pcp: [facility] Structured Data:Seasonal : N o Subjective: * Chief Complaints: * ???1. F/u and re-est care. * Medical History:? Objective: * Vitals:? Assessment: * Assessment: 1.?Essential (primary) hyper tension - I10??? Plan: * Treatment: * Procedure Codes:?96637 COMPL ETE CBC W/AUTO DIFF WBC, 84691 COMPREHEN METABOLIC PANEL, 11920 LIPID PANEL, 39817 RENAL FUNCTION PANEL * Images: Billing Information: * Visit Code:? * Procedure Codes:? 28484 COMPLETE CBC W/AUTO DIFF WBC. 84686 COMPREHEN METABOLIC PANEL. 46911 LIPID PANEL. 53345 RENAL FUNCTION PANEL. Care Plan Details* * Electronic signature of Melissa Huang MD on 03/18/2024 at 06:11 PM GRANT COORDINATOR Sign off status: Pending * Provider:?Aniya Huang MD Date:? Generated for Shadi meza/Jose/eTransmitting on:?03/18/2024 06:11 PM GRANT COORDINATOR
--- OUTSIDE RECORDS SUMMARY | 2024-03-18 18:12 | XMS_ITS ---
Author Organization E [facility] Address [address] [place] [address] Care Team Providers Care Lockstitch Cup Setter Name Role Phone [facility]. Primary Care Provider [phone] Dr. Bridgett Hernandez Unavailable [phone] Aniya Huang Unavailable [phone] Encounters Encounter Location Date Provider Diagnosis E [facility] [address] [place] [address] 12/09/2022 Aniya Huang Plan Of Treatment No Information Progress Notes * Niesha CEJADOB:[birth year] (68 yo M)Acc No.[id number]:12/09/2022 Progress Notes Patient:?Niesha CEJA Provider:?Aniya Huang MD :1955???Age:67 Y???Sex:Male Maxx e:12/09/2022 [address] [facility] Pcp: [facility] Structured Data:Seasonal : N o Subjective: * Chief Complaints: * ??? * Medical History:? Objective: * Vitals:? Assessment: Plan: * Treatment: * Images: Billing Information: * Visit Code:? * Procedure Codes:? Care Plan Details* * Electronic signature of Melissa Huang MD on 03/18/2024 at 06:11 PM MAGAZINE FEEDER Sign off status: Pending * Provider:?Aniya Huang MD Date:? Generated for Shadi meza/Jose/Jignesh on:?03/18/2024 06:11 PM MAGAZINE FEEDER
--- OUTSIDE RECORDS SUMMARY | 2024-03-18 18:12 | XMS_ITS | Clinical Summary ---
Author Organization [facility] Address [address] [place] [address] Phone Care Team Providers Care Occupational Medicine Physician Name Role Phone Unavailable Primary Care Provider Unavailabl e Allergies No known active allergies Medications amLODIPine (NORVASC) 5 mg tablet Take 5 mg by mouth daily. Active Active Problems Problem Noted Date Diagnosed Date Retention, urine 12/23/2023 Encounters Date Type Department Care Team Description 01/03/2024 External Device Data ST[facility] ABSTRACTION Provider, Abstract 12/23/2023 2:02 PM CDT Anesthesia Event [facility] Operating Room [address] [place] [phone] Selvin Haro MD Schwabedissen, Brett L, AA-C 12/23/2023 1:33 PM CDT - 12/23/2023 3:20 PM CDT Surgery [facility] Operating Room [address] [place] [phone] Dm Burr MD PYELOGRAM RETROGRADE 12/23/2023 11:56 AM CDT - 12/23/2023 5:01 PM CDT Hospital Encounter [facility] [address] [place] [phone] Dm Burr MD Retention, urine Discharge Disposition: Home or Self Care from Last 3 Months Social History Tobacco Use Types Packs/Day Years Used Date Smoking Tobacco: Every Day Cigarettes 1 21 Started: 2003 Tobacco Cessation:Ready to Q uit: Not Asked; Counseling Given: Not Answered Alcohol Use Standard Drinks/Week Comments Yes 1 (1 standard drink = 0.6 oz pur e alcohol) 1 per week Feeling Safe Answer Date Recorded Are you in a relationship wi th someone who hurts you emotionally and/or physically? 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 Gender Identity Not on file Sexual Orientation Not on file Last Filed Vital Signs Vital Sign Reading Time Taken Comments Blood Pressure 120/60 12/23/2023 4:43 PM CDT Pulse 75 12/23/2023 4:43 PM CDT Temperature 36.6 ??C (97.8 ??F) 12/23/2023 4:43 PM CD T Respiratory Rate 18 12/23/2023 4:43 PM CDT Oxygen Saturation 96% 12/23/2023 3:17 PM CDT Inhaled Oxygen Concentration - - Weight 63.5 kg (140 lb 1.6 oz) 12/23/2023 12:23 PM CDT Height 182.9 cm (6') 12/23/2023 12:23 PM CDT Body Mass Index 19 12/23/2023 12:23 PM CDT Plan of Treatment Health Maintenance Due Date Last Done Comments PNEUMOCOCCAL VACCINE 65+ YEA RS (1 of 2 - PCV) 05/19/1963 DTAP/TDAP/TD VACCINES (1 - Tdap) 1976 FIT-DNA Q 3 years 2002 FIT/FOBT Q 1 year 2002 Flex Sig/CT Colonography Q 5 years 2002 Lung Cancer Screening 05/19/2007 ZOSTER VACCINE (1 of 2) 05/19/2007 RSV VACCINE (60+ or ) (1 - Risk 60-74 years 1-dose series) 2017 INFLUENZA VACCINE (#1) 2023 01/10/2022 COVID-19 Vaccine (2 - 2023-2 5 season) 2023 01/10/2022 COLORECTAL SCREENING 06/16/2032 06/16/2022, 06/17/19 Colorectal Cancer Screening 06/16/2032 Abdominal Aortic Aneurysm (A AA) Screening Completed 12/08/2023, 12/07/2022, 12/04/2022, Additional history exists Medical Devices Explanted Type Area Import Specialist Device Identifier Shelf Expiration Date Model / Serial / Lot Bilateral Ureteral Stents Explanted:Qty: 2 on 12/23/2023 by Dm Burr MD at [facility] Bilateral: Ureter Procedures Procedure Name Priority Date/Time Associated Diagnosis Comments XR FLUORO LESS THAN 1 HOUR Routine 12/23/2023 2:37 PM CDT CBC WITH DIFFERENTIAL Stat 12/23/2023 1:40 PM CDT BASIC METABOLIC PANEL Stat 12/23/2023 1:40 PM CDT CYSTOURETHROSCOPY URETERAL STENT REMOVAL 12/23/2023 1:33 PM CDT Retention, urine PA CYSTOURETHROSCOPY W/URETERAL CATHETERIZATION 12/23/2023 1:33 PM CDT Retention, urine from Last 3 Months Results * XR FLUORO LESS THAN 1 HOUR (12/23/2023 2:37 PM CDT) Anatomical Region Laterality Modality Computed Radiogr aphy 12/23/2023 2:38 PM CDT Impressions 12/23/2023 3:47 PM CDT IMPRESSION: Please see procedure note by the service performing the procedure for details. Narrative 12/23/2023 3:47 PM CDT PROCEDURE/EXAM(S): XR FLUORO LESS THAN 1 HOUR PROVIDED CLINICAL HISTORY/INDICATION: Male of 68 years age. Other - Please see comments. See Reason for Exam. ? DICTATION LOCATION: Location 1 - [facility] ? TECHNIQUE/FINDINGS: Fluoroscopy was provided by the radiology department for another service and fluoroscopic images were obtained over the abdomen and pelvis for a procedure. I was not present or involved with this procedure. Please see procedure note by the physician/service performing the procedure for details. FLUOROSCOPY TIME / EXPOSURE: 0.3 minutes / 1 mGy (Ka,r). ?? Procedure Note Panchito Figueroa MD - 12/23/2023 PROCEDURE/EXAM(S): XR FLUORO LESS THAN 1 HOUR PROVIDED CLINICAL HISTORY/INDICATION: Male of 68 years age. Other - Please see comments. See Reason for Exam. DICTATION LOCATION: Location 1 - [facility] TECHNIQUE/FINDINGS: Fluoroscopy was provided by the radiology department for another service and fluoroscopic images were obtained over the abdomen and pelvis for a procedure. I was not present or involved with this procedure. Please see procedure note by the physician/service performing the procedure for details. FLUOROSCOPY TIME / EXPOSURE: 0.3 minutes / 1 mGy (Ka,r). IMPRESSION: Please see procedure note by the service performing the procedure for details. Dm Burr MD DIAGNOSTIC IMAGING ORDERAB LES Final Result * (ABNORMAL) CBC WITH DIFFERENTIAL (12/23/2023 1:40 PM CDT) WBC 11.6(H) 4.0 - 9.8 K/uL 12/23/2023 2:01 PM CDT 2 Minutes [facility] - [facility] RBC 2.98(L) 4.50 - 5.40 M/uL 12/23/2023 2:01 PM CDT 2 Minutes [facility]ATORY SERVICES [facility] HEMOGLOBIN 9.2(L) 13.6 - 16.5 g/dL 12/23/2023 2:01 PM CDT 2 Minutes [facility] - [facility] HEMATOCRIT 28.2(L) 40.0 - 48.0 % 12/23/2023 2:01 PM CDT 2 Minutes [facility] - [facility] MCV 94.6 82.0 - 99.0 fL 12/23/2023 2:01 PM CDT 2 Minutes [facility] - [facility] MCH 30.9 27.2 - 32.6 pg 12/23/2023 2:01 PM CDT 2 Minutes [facility] - [facility] MCHC 32.6 31.5 - 35.5 g/dL 12/23/2023 2:01 PM CDT 2 Minutes [facility] - [facility] RDW 15.3(H) 11.5 - 14.5 % 12/23/2023 2:01 PM CDT 2 Minutes [facility] RDW-STDEV 52.7(H) 37.1 - 48.7 fL 12/23/2023 2:01 PM CDT 2 Minutes [facility] PLATELETS 456(H) 140 - 350 K/uL 12/23/2023 2:01 PM CDT [facility] - [facility] MPV 9.7 9.3 - 12.4 fL 12/23/2023 2:01 PM CDT [facility] - [facility] NEUTROPHILS 68 % 12/23/2023 2:01 PM CDT [facility] - [facility] LYMPHOCYTES 19 % 12/23/2023 2:01 PM CDT [facility] MONOCYTES 8 % 12/23/2023 2:01 PM [facility] EOSINOPHILS 1 % 12/23/2023 2:01 PM CDT [facility] - [facility] BASOPHILS 1 % 12/23/2023 2:01 PM CDT [facility] - . [facility] IMMATURE GRANULOCYTES 3 % 12/23/2023 2:01 PM CDT [facility] - [facility] Comment:IG (Immature Granulo cyte) count includes Metamyelocytes, Myelocytes, and Promyelocytes NEUTROPHIL ABSOLUTE 7.91(H) 1.90 - 7.00 K/uL 12/23/2023 2:01 PM CDT [facility] - [facility] LYMPHOCYTE ABSOLUTE 2.19 0.70 - 4.50 K/uL 12/23/2023 2:01 PM CDT [facility] - . [facility] MONOCYTE ABSOLUTE 0.90 0.10 - 1.30 K/uL 12/23/2023 2:01 PM CDT [facility] - . [facility] EOSINOPHIL ABSOLUTE 0.13 0.00 - 0.70 K/uL 12/23/2023 2:01 PM T 2 Minutes LABORATORY SERVICES - . [facility] BASOPHILS ABSOLUTE 0.10 0.00 - 0.20 K/uL 12/23/2023 2:01 PM CDT [facility] IMMATURE GRANULOCYTES ABSOLUTE 0.33(H) 0.00 - 0.03 K/uL 12/23/2023 2:01 PM T [employer] [facility] - [facility] Blood Venipuncture / Unknown 12/23/2023 1:40 PM CDT 12/23/2023 1:54 PM CDT Dm Burr MD HEMATOLOGY ORDERABLES Isabela garcia Result [facility] - [facility] CLIA# [id number] [address] [place] [address] * (ABNORMAL) BASIC METABOLIC PANEL (12/23/2023 1:40 PM CDT) SODIUM 134(L) 136 - 145 mmol/L 12/23/2023 2:27 PM T [facility] POTASSIUM 4.7 3.5 - 5.0 mmol/L 12/23/2023 2:27 PM T [facility] Comment:Moderate hemolysis p resent. Can cause significant falsely elevated result. Redraw if indicated. CHLORIDE 95(L) 98 - 107 mmol/L 12/23/2023 2:27 PM T [facility] CO2 25 22 - 29 mmol/L 12/23/2023 2:27 PM T [facility] CALCIUM 8.9 8.6 - 10.2 mg/dL 12/23/2023 2:27 PM T [facility] BUN 17 8 - 23 mg/dL 12/23/2023 2:27 PM T [facility] CREATININE 6.77(H) 0.67 - 1.17 mg/dL 12/23/2023 2:27 PM T [facility] GLUCOSE 79 74 - 99 mg/dL 12/23/2023 2:27 PM T [facility] GFR 8(L) >=60 mL/min/1.7 3 sq meter 12/23/2023 2:27 PM T [facility] Comment:eGFR calculated with 2020 CKD-EPI equation. Vegetarian diet, extremely high or low muscle mass, and may affect results. Cystatin C with Glomerular Filtration Rate is a suitable alternative for these patients. ANION GAP 14 8 - 16 mmol/L 12/23/2023 2:27 PM T [facility] Blood Venipuncture / Unknown 12/23/2023 1:40 PM CDT 12/23/2023 1:54 PM CDT Dm Burr MD CHEMISTRY ORDERABLES Final Result [id number] [address] [place] [address] from Last 3 Months Insurance [employer] [id number] [employer]ION 2 O MCR [employer] [id number] [employer] 2 O MCR
--- OUTSIDE RECORDS SUMMARY | 2024-03-18 18:12 | XMS_ITS ---
Author Organization E [facility] Address [address] [place] [address] Care Team Providers Care Admitting Officer Name Role Phone [facility]. Primary Care Provider [phone] Dr. Bridgett Hernandez Unavailable Aniya Huang Unavailable [phone] REASON FOR VISIT Medical records request - electronic Encounters Encounter Location Date Provider Diagnosis E [facility] [address] [place] [address] 12/16/2022 Aniya Huang Plan Of Treatment No Information Progress Notes * Niesha CEJADOB:[birth year] (67 yo M)Acc No.[id number]:12/16/2022 Patient:?Niesha Ceja :1955???Age:67 Y???Sex:Male Address:[address] [place], [address] * true * Date:? 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
--- OUTSIDE RECORDS SUMMARY | 2024-03-18 18:12 | XMS_ITS | Encounter Summary ---
Author Organization [facility] Address 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 Name Role Phone Unavailable Primary Care Provider Unavailabl e Reason for Visit * Auth/Cert (Routine) Specialty Diagnoses / Procedures Referred By Zeferino t Referred To Contact Diagnoses Retention, urine Procedures OH CYSTO W/SIMPLE REMOVAL STONE & STENT OH CYSTO BLADDER W/URETERAL CATHETERIZATION OH CYSTO W/[place] [address] [place] [address] Phone: tel: fax: Referral ID Status Reason Start Date Expiration Date Visits Re quested Visits Authorized [id number] 11/30/2023 1 1 Encounter Details Date Type Department Care Team (Late st Contact Info) Description 12/23/2023 1:33 PM CDT - 12/23/2023 3:20 PM CDT Surgery [facility] Operating Room [address] [place] [id number] [place] [address] [place] [address] PYELOGRAM RETROGRADE Surgery Details Date/Time Status Location OR Service Patient Class Case Class Case Type Trauma Case? 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 Gender Identity Not on file Sexual Orientation Not on file documented as of this encounter Last Filed Vital Signs Vital Sign Reading Time Taken Comments Blood Pressure 117/73 12/23/2023 3:17 PM CDT Pulse 80 12/23/2023 3:17 PM CDT Temperature 36.6 ??C (97.8 ??F) 12/23/2023 3:17 PM CD T Respiratory Rate 16 12/23/2023 3:17 PM CDT Oxygen Saturation 96% 12/23/2023 3:17 PM CDT Inhaled Oxygen Concentration - - Weight 63.5 kg (140 lb 1.6 oz) 12/23/2023 12:23 PM CDT Height 182.9 cm (6') 12/23/2023 12:23 PM CDT Body Mass Index 19 12/23/2023 12:23 PM CDT documented in this encounter Discharge Instructions * Discharge Instructions* Megan Magallanes RN - 12/23/2023 2:38 PM CDT Make appointment for [address] Damon out elicia [facility] [place] Office - [place] Office - [facility] [address] - , [phone], or [phone] Exchange: [phone] [place] - [place] - [phone] [facility] - POST TRANSURETHRAL BLADDER/URETHRA SURGERY INSTRUCTION SHEET Your recent bladder/urethral surgery requires very special post hospital care. Despite the fact that no skin incisions were used, the area in the bladder/urethra is quite raw. This will usually resolve over a period of weeks. You may see blood in your urine over the next 4-6 weeks. Do not be alarmed, even if the urine was clear for a while. If this occurs, decrease your activity and increase the amount of your fluid intake until the urine clears. DIET: You may return to your normal diet immediately. Because of the raw surface, alcohol, spicy foods and drinks with caffeine may cause some irritation or frequency and should be used in moderation. To keep your urine flowing freely and to avoid constipation, drink plenty of fluids during the day (8-10glasses). ACTIVITY: Your physical activity is to be decreased especially during the first two weeks after surgery. During this time, use the following guidelines: No lifting heavy objects (anything greater than 10-15 lbs.). No driving for about 10-14 days. No strenuous exercise for 2 weeks. No sexual intercourse for 2 weeks.. No severe straining during bowel movements - take a laxative if necessary. You may walk as much as you want. You may use stairs, but be careful. You may shower or take baths unless instructed not to do so. BOWELS: It is important to keep your bowels regular during the postoperative period. A bowel movement everyother day is reasonable. Use stool softeners (i.e. Colace, Senekot, Fibercon, etc.) if needed. Takea mild laxative if needed and call if you are having problems (Milk of Magnesia 2-3 tbsp. or 2 Dulcolax tablets for example). MEDICATION: You should resume your Pre-surgery medications unless told not to. You should avoid aspirin, ibuprofen, Naprosyn, etc (Tylenol is okay) for the next 2 weeks or so until any bleeding subsides and somehealing has occurred. In addition, you may be given an antibiotic to prevent infection and possiblystool softeners if indicated. These should be taken as prescribed until the bottles are finished unless you are having an unusual reaction to one of the medications. You may also be given some narcotic pain medication. Take this as indicated and discontinue this when you no longer feel you need them. PROBLEMS YOU SHOULD REPORT TO US: Fevers over 101.3 Fahrenheit. Heavy bleeding or clots (see notes above about blood in urine). Inability to urinate. Drug reactions (hives, rash, nausea, vomiting, diarrhea, etc.). Severe burning or pain with urination that is not improving. FOLLOW-UP: You will need a follow-up appointment to monitor your progress. Call for this appointment at one ofour office numbers above when you get home or from the phone in your hospital room before leaving. Usually, the first appointment will be about 7-14 days after your surgery. CARE OF YOUR POWELL CATHETER A powell catheter is a thin rubber tube which is put into your bladder. It is used to drain urine out of your body. After the catheter is inserted, its' tiny tip will be inflated (filled) with sterilewater to make a small balloon. The balloon holds the powell in place and keeps it from slipping out of your bladder. A powell catheter can stay in the bladder for a short or long time. Daily Care of the Powell Catheter Wash hands with soap and water before and after catheter care. Unless you???ve been told not to, it is ok to shower with your catheter and bag. Keep the skin and catheter clean. Clean the skin around your catheter at least once each day using soap and water. Do not apply powder or lotion to the skin around the catheter. Always keep your urine bag below the level of your bladder. Wear cotton underwear to allow good air flow and drying in your genital area. Drink plenty of liquids. Drink at least 8 cups of healthy liquids each day, such as juices, water and milk. Limit the amount of caffeine in your diet. Caffeine may make you urinate too much and lose too much body fluid. Do not tug or pull on the tubing. Place the catheter tubing so it does not kink or twist. When getting into bed, hang the urine bag beside the bed. Check for inflammation or signs of infection in the area around the catheter. Signs of infection include irritated, swollen, red, or tender skin, or pus around the catheter. Emptying Your Powell Catheter or Leg Drainage Bag Empty the large bag every 8 hours and leg bag every 3 or 4 hours, or when full. The following are steps to be used when emptying your drainage bag: Wash your hands with soap and water. Without touching its tip, remove the drain spout from its sleeve at the bottom of the urine bag. Open the valve on the spout. Let the urine flow out of the urine bag into a container or toilet. Do not let the drainage tube touch anything. When the bag is empty, wipe off the end of the drain spout. Close the valve and put the drain spoutinto its sleeve at the bottom of the urine bag. Wash your hand with soap and water. Write down how much urine was in your bag if caregivers have asked you to keep a record. Call Your Doctor If: You see large blood clots in your urine bag. The area around the catheter becomes irritated, swollen, red, or tender or has pus draining from it. Your have symptoms of a urinary infection. For example: You have blood or pus in your urine. You have pain in your back just below your rib cage. This is called flank pain. You have a fever, chills, or body aches. You have groin or belly pain. SAFETY For the next 24 hours, you may feel sleepy due to medicines used during your procedure. For the next 24 hour period or while you are on pain medication, DO NOT make any important decisions or sign any important papers. DO NOT drink any alcoholic beverages, including beer. DO NOT drive a car or operate machinery and power tools. For your safety and protection, we strongly recommend that a responsible adult be with you today and throughout the night. ADDITIONAL INFORMATION Once you are home, if you develop any of the following symptoms, call your physician. Difficulty in breathing, persistent nausea or vomiting, pain that is unusual, excessive swelling orredness at incision site, trouble swallowing, inability to void, temperature greater than 101 degrees, excessive bleeding at incision site. If you cannot contact your physician, call or come to the Emergency Room at [facility] ([phone]) or the nearest Emergency Room. In an emergency, Call 911. documented in this encounter Medications at Time of Discharge amLODIPine (NORVASC) 5 mg tablet Take 5 mg by mouth daily. documented as of this encounter H&P Notes * Dm Burr MD - 12/23/2023 12:31 PM CDT History and Physical Patient Name: Sadi Ceja is a 68 y.o. male Date of : 1955 CSN: [id number] Date of Admission: 12/23/2023 Reason for Admission: cystoscopy and stent removal History of Present Illness: 68 yo male with ESRD and bilateral hydronephrosis admitted for cystoscopy; bilateral retrograde pyelograms. Bilateral stent exchange or removal. There are no problems to display for this patient. No past medical history on file. No past surgical history on file. No medications prior to admission. Not on File Social History Tobacco Use Smoking status: Not on file Smokeless tobacco: Not on file Substance Use Topics Alcohol use: Not on file No family history on file. Review of Systems Constitutional: negative Cardiovascular: negative. Constitutional: negative. Ears, nose, mouth, throat, and face: negative. Gastrointestinal: negative. Respiratory: negative. Neuro/psyh: negative Objective: Physical Exam: BP 111/67 (BP Location: Left arm, Patient Position (BP): Sitting) Pulse 88 Temp 98.9 ??F (37.2 ??C) (Temporal) Resp 16 Ht 6' (1.829 m) Wt 63.5 kg (140 lb 1.6 oz) SpO2 98% BMI 19.00 kg/m?? General: Well developed, well-nourished, no acute distress. Neck: Supple, no adenopathy Lungs: Clear, good excursion. Heart: Regular rate and rhythm, no overt murmurs. Abdomen: Non-distended, non-tender, no masses. : wnl BARON: prostate 30 grams benign Neuro: Awake, alert, oriented. No focal motor or sensory deficits. Assessment: hydronephrosis Plan: Cystoscopy; retrograde pyelograms possible stent removal or exchange Dm Burr MD documented in this encounter OR Notes * Operative Report - Dm Burr MD - 12/23/2023 11:17 PM CDT [place], [place] Patient: SADI CEJA CSN: [id number] : 1955 Provider: Dm Burr MD Operative Report DATE OF SERVICE: PREOPERATIVE DIAGNOSES: 1. Bilateral hydronephrosis. 2. Urinary retention. POSTOPERATIVE DIAGNOSES: 1. Bilateral hydronephrosis. 2. Urinary retention. OPERATIONS PERFORMED: Cystoscopy, bilateral ureteral stent removal, and bilateral retrograde pyelograms, and Powell catheter insertion. BRIEF HISTORY AND FINDINGS: This is a 68-year-old male with a history of bilateral hydronephrosis due to urinary retention. Thepatient previously had stents placed, but he progressed to end-stage disease, and so presents this time for possible stent removal. The procedure, risks, alternatives were explained to the patient preoperatively, and wished to proceed. FINDINGS FROM SURGERY: There was approximately 300 mL of pus urine in the bladder. Anterior and posterior urethra was normal. Prostatic urethra is normal. The retrograde pyelogram demonstrated free flow of contrast in bothkidneys. DESCRIPTION OF PROCEDURE: The patient was placed in supine position on the operative table. General inhalation anesthesia obtained. A 22-Bolivian cystoscope was advanced under direct vision through the urethra and bladder with findings as above. The bladder was inspected entirely with the findings as above. Grasping forceps were inserted and stents removed. An open-ended catheter inserted in the ureteral orifice, and 10 mL of Cysto-Conray was injected into the kidneys. The kidneys were observed for several minutes and complete efflux of all the contrast from the kidney was noted on the retrograde studies indicating ureters were open. With this in mind, we did not replace the stents. Due to the retention of urine notedat the beginning of the case, I did retain a 16-Bolivian Powell catheter and placed for discharge. This completed the procedure. No complication. Dm Burr MD MMODL D: [id number] V: [id number] CC Dm Burr MD * Kait-OP - Megan Magallanes RN - 12/23/2023 4:57 PM CDT Knowledge deficit related to post-discharge care Interventions: Assess learning needs and willingness to learn; give clear, concise explanations of the care required post-discharge; address patient/family questions and concerns; provide teaching asindicated Expected Outcome: Patient or significant other demonstrate(s) behaviors required for performance ofactivities enhancing recovery post-discharge Outcome Met: Discharge instructions reviewed with patient. Verbalized understanding. Potential for pain related to surgical/procedural intervention Interventions: Assess level of pain/comfort utilizing verbal/nonverbal pain scales; assess culturalor hindu indicators attached to pain; administer pain medications as prescribed; utilize non-pharmacologic pain control and comfort measures Expected Outcome: Patient demonstrates and reports adequate pain control Outcome Met: Met Spoke with Dr. Burr on the phone. Patient needs to get powell bag taken out in a week in his office. Patient switched to leg bag , per his request and approval of Dr. Burr. Patient educated on powell bag care . Patient left in uber with sister and friend. * Brief Op Note - Dm Burr MD - 12/23/2023 2:37 PM CDT Brief Postoperative Note Sadi Ceja [id number] Pre-operative Diagnosis: Retention, urine Post-Op Diagnosis: Post-Op Diagnosis Codes: * Retention, urine [R33.9] Procedure-Anesthesia: PYELOGRAM RETROGRADE, Bilateral CYSTOURETHROSCOPY URETERAL STENT REMOVAL, Bilateral Anesthesia Type: General Surgeons and Role: * Dm Burr MD - Primary Additional CPT Codes: *No additional CPT codes listed in log* Procedure Start: 1421 Procedure End: 1434 Findings: ureters open Pussy urine in the bladder Cath retained. Specimens: * No specimens in log * Implants: Implant Name Type Inv. Item Serial No. [employer] Solutions Architect Lot No. [id number] No. Used Action BILATERAL URETERAL STENTS Bilateral 2 Explanted Estimated Blood Loss: No blood loss documented. Complications: none Dm Burr MD * Kait-OP - Brooklynn Mahan RN - 12/22/2023 10:31 AM CDT This staff nurse called patient using the [phone]. Voicemail message left for patient requesting callback [phone] * Kait-OP - Brooklynn Mahan RN - 12/21/2023 2:09 PM CDT This office has not been able to reach patient at phone number listed in [employer]. ). This office is unable to send message thru My Message Portal requesting a callback since patient does not have this set-up. Call placed to surgeon's office phone number left for callback. Carsoncaden from surgeon's office returned call, their office had another phone number. [phone]. [facility] phone numbers updated. * Kait-OP - Brooklynn Mahan RN - 12/16/2023 10:00 AM CDT Patient doesn't have My Message Portal, unable to send request for callback. Called patient's home phone, unable to leave message for callback to this office documented in this encounter Plan of Treatment Not on file documented as of this encounter Procedures Procedure Name Priority Date/Time Associated Diagnosis Comments XR FLUORO LESS THAN 1 HOUR Routine 12/23/2023 2:37 PM CDT CBC WITH DIFFERENTIAL Stat 12/23/2023 1:40 PM CDT BASIC METABOLIC PANEL Stat 12/23/2023 1:40 PM CDT CYSTOURETHROSCOPY URETERAL STENT REMOVAL 12/23/2023 1:33 PM CDT Retention, urine OH CYSTOURETHROSCOPY W/URETERAL CATHETERIZATION 12/23/2023 1:33 PM CDT Retention, urine documented in this encounter Results * XR FLUORO LESS THAN 1 [...] Reason for Exam. ? DICTATION LOCATION: Location - [facility] ? TECHNIQUE/FINDINGS: Fluoroscopy was provided by the [...] See Reason for Exam. DICTATION LOCATION: Location - [facility] TECHNIQUE/FINDINGS: Fluoroscopy was provided by the radiology [...] the service performing the procedure for details. us Dm Burr MD DIAGNOSTIC IMAGING ORDERAB LES Final Result * (ABNORMAL) CBC WITH DIFFERENTIAL (12/23/2023 1:40 PM CDT) WBC 11.6(H) 4.0 - 9.8 K/uL 12/23/2023 2:01 PM CDT [facility] RBC 2.98(L) 4.50 - 5.40 M/uL 12/23/2023 2:01 PM CDT [facility] HEMOGLOBIN 9.2(L) 13.6 - 16.5 g/dL 12/23/2023 2:01 PM CDT [facility] HEMATOCRIT 28.2(L) 40.0 - 48.0 % 12/23/2023 2:01 PM CDT [facility] MCV 94.6 82.0 - 99.0 fL 12/23/2023 2:01 PM CDT [facility] MCH 30.9 27.2 - 32.6 pg 12/23/2023 2:01 PM CDT [facility] MCHC 32.6 31.5 - 35.5 g/dL 12/23/2023 2:01 PM CDT [facility] RDW 15.3(H) 11.5 - 14.5 % 12/23/2023 2:01 PM CDT [facility] RDW-STDEV 52.7(H) 37.1 - 48.7 fL 12/23/2023 2:01 PM CDT [facility] PLATELETS 456(H) 140 - 350 K/uL 12/23/2023 2:01 PM CDT [facility] MPV 9.7 9.3 - 12.4 fL 12/23/2023 2:01 PM CDT [facility] - . [facility] NEUTROPHILS 68 % 12/23/2023 2:01 PM CDT [facility] - . [facility] LYMPHOCYTES 19 % 12/23/2023 2:01 PM CDT [facility] - . [facility] MONOCYTES 8 % 12/23/2023 2:01 PM CDT [facility] - . [facility] EOSINOPHILS 1 % 12/23/2023 2:01 PM CDT [facility] - [facility] BASOPHILS 1 % 12/23/2023 2:01 PM CDT [facility] - [facility] IMMATURE GRANULOCYTES 3 % 12/23/2023 2:01 PM CDT [facility] - [facility] Comment:IG (Immature Granulo cyte) count includes Metamyelocytes, Myelocytes, and Promyelocytes NEUTROPHIL ABSOLUTE 7.91(H) 1.90 - 7.00 K/uL 12/23/2023 2:01 PM CDT [facility] - [facility] LYMPHOCYTE ABSOLUTE 2.19 0.70 - 4.50 K/uL 12/23/2023 2:01 PM CDT [facility] - [facility] MONOCYTE ABSOLUTE 0.90 0.10 - 1.30 K/uL 12/23/2023 2:01 PM CDT [facility] - [facility] EOSINOPHIL ABSOLUTE 0.13 0.00 - 0.70 K/uL 12/23/2023 2:01 PM CDT [facility]ORATORY [facility] BASOPHILS ABSOLUTE 0.10 0.00 - 0.20 K/uL 12/23/2023 2:01 PM CDT [facility] - [facility] IMMATURE GRANULOCYTES ABSOLUTE 0.33(H) 0.00 - 0.03 K/uL 12/23/2023 2:01 PM CDT [facility] Blood Venipuncture / Unknown 12/23/2023 1:40 PM CDT 12/23/2023 1:54 PM CDT Dm Burr MD HEMATOLOGY ORDERABLES Isabela l Result [facility] [employer] [facility] CLIA# [id number] [address] [facility] [place] [address] * (ABNORMAL) BASIC METABOLIC PANEL (12/23/2023 1:40 PM CDT) SODIUM 134(L) 136 - 145 mmol/L 12/23/2023 2:27 PM CDT [facility] POTASSIUM 4.7 3.5 - 5.0 mmol/L 12/23/2023 2:27 PM T [facility] SERVICES - [facility] Comment:Moderate hemolysis p resent. Can cause significant falsely elevated result. Redraw if indicated. CHLORIDE 95(L) 98 - 107 mmol/L 12/23/2023 2:27 PM T [facility]ORY [facility] CO2 25 22 - 29 mmol/L 12/23/2023 2:27 PM T [facility] CALCIUM 8.9 8.6 - 10.2 mg/dL 12/23/2023 2:27 PM T [facility] BUN 17 8 - 23 mg/dL 12/23/2023 2:27 PM [facility] CREATININE 6.77(H) 0.67 - 1.17 mg/dL 12/23/2023 2:27 PM [facility] GLUCOSE 79 74 - 99 mg/dL 12/23/2023 2:27 PM [facility]. [facility] GFR 8(L) >=60 mL/min/1.7 3 sq meter 12/23/2023 2:27 PM T [facility]ORATORY [facility] Comment:eGFR calculated with 2020 CKD-EPI equation. Vegetarian diet, extremely high or low muscle mass, and may affect results. Cystatin C with Glomerular Filtration Rate is a suitable alternative for these patients. ANION GAP 14 8 - 16 mmol/L 12/23/2023 2:27 PM T [facility] Blood Venipuncture / Unknown 12/23/2023 1:40 PM CDT 12/23/2023 1:54 PM CDT us Dm Burr MD CHEMISTRY ORDERABLES Final Result [facility]# [id number] 5 [facility] [place] [id number] documented in this encounter Visit Diagnoses Diagnosis Retention, urine- Primary Retention of urine, unspecified Retention, urine Retention of urine, unspecified documented in this encounter Admitting Diagnoses Diagnosis Retention, urine Retention of urine, unspecified documented in this encounter Administered Medications Inactive Administered Medications - up to 3 most recent administrations Medication Order MAR Action Action Date Dose Rate Site hydromorPHONE (PF) (DILAUDID) 1 mg/mL syringe 0.2 mg 0.2 mg, IV, POST-PROCEDURE Q 5 MINUTES PRN, 5 doses, Starting on Ibeth 12/23/23 at 1352, Until Ibeth 12/23/23 at 1901, Pain, Routine, PACU hydromorPHONE (PF) (DILAUDID) 1 mg/mL syringe 0.4 mg 0.4 mg, IV, POST-PROCEDURE Q 5 MINUTES PRN, 5 doses, Starting on Ibeth 12/23/23 at 1352, Until Ibeth 12/23/23 at 1901, Pain, Routine, PACU iopamidoL (ISOVUE-300) 61% injection (single-use vial) INTRA-PROCEDURE PRN, Starting on Ibeth 12/23/23 at 1424, Until Ibeth 12/23/23 at 1445, Routine, Intra-op Given 12/23/2023 2:24 PM CDT 10 mL Operative Site labetaloL (NORMODYNE;TRANDATE) 5 mg/mL injection 5 mg 5 mg, IV, EVERY 10 MINUTES PRN, Starting on Ibeth 12/23/23 at 1352, Until Ibeth 12/23/23 at 1901, Blood Pressure, SBP>180 AND HR>60, Routine, PACU lactated ringers infusion IV, at 125 mL/hr, POST-PROCEDURE CONTINUOUS, Starting on Ibeth 12/23/23 at 1400, Until Ibeth 12/23/23 at 1901, Routine, PACU naloxone (NARCAN) 0.4 mg/mL injection 0.1-0.4 mg 0.1-0.4 mg, IV, SEE ADMIN INSTRUCTIONS, Starting on Ibeth 12/23/23 at 1352, Until Ibeth 12/23/23 at 1901, Routine, PACU ondansetron (ZOFRAN) 4 mg/2 mL injection 4 mg 4 mg, IV, POST-PROCEDURE ONCE PRN, 1 dose, Starting on Ibeth 12/23/23 at 1352, Until Ibeth 12/23/23 at 1901, Nausea/Emesis, Routine, PACU prochlorperazine (COMPAZINE) injection 5 mg 5 mg, IV, POST-PROCEDURE ONCE PRN, 1 dose, Starting on Ibeth 12/23/23 at 1352, Until Ibeth 12/23/23 at 1901, Nausea/Emesis, Routine, PACU sodium chloride 0.9% irrigation solution INTRA-PROCEDURE PRN, Starting on Ibeth 12/23/23 at 1422, Until Ibeth 12/23/23 at 1445, Routine, Intra-op Given 12/23/2023 2:22 PM CDT 3,000 mL Operative Site documented in this encounter Active and Recently Administered Medications Times are shown in CDT. Scheduled Medication Order 12/21/2023 12/22/2023 12/23/2023 ceFAZolin in sterile water (ANCEF) 2 gram/20 mL IV Syringe (PREMIX) 2,000 mg (COMPLETED) 2,000 mg, IV, PRE-PROCEDURE ONCE, 1 dose, Starting on Ibeth 12/23/23 at 1234, Until Ibeth 12/23/23 at 1420, Routine, Antibiotic Indication: Surgical prophylaxis 1415 (New Bag - Prov ider: LOUISE Mares)1420 (Stopped - Provider: LOUISE Mares) naloxone (NARCAN) 0.4 mg/mL injection 0.1-0.4 mg 0.1-0.4 mg, IV, SEE ADMIN INSTRUCTIONS, Starting on Ibeth 12/23/23 at 1352, Until Ibeth 12/23/23 at 1901, Routine, PACU Continuous Medication Order 12/21/2023 12/22/2023 12/23/2023 lactated ringers infusion IV, at 125 mL/hr, POST-PROCEDURE CONTINUOUS, Starting on Ibeth 12/23/23 at 1400, Until Ibeth 12/23/23 at 1901, Routine, PACU 1400 (Due) PRN Medication Order 12/21/2023 12/22/2023 12/23/2023 hydromorPHONE (PF) (DILAUDID) 1 mg/mL syringe 0.2 mg 0.2 mg, IV, POST-PROCEDURE Q 5 MINUTES PRN, 5 doses, Starting on Ibeth 12/23/23 at 1352, Until Ibeth 12/23/23 at 1901, Pain, Routine, PACU hydromorPHONE (PF) (DILAUDID) 1 mg/mL syringe 0.4 mg 0.4 mg, IV, POST-PROCEDURE Q 5 MINUTES PRN, 5 doses, Starting on Ibeth 10/24 at 1352, Until Ibeth 1024 at 1901, Pain, Routine, PACU iopamidoL (ISOVUE-300) 61% injection (single-use vial) (CANCELED) INTRA-PROCEDURE PRN, Starting on Ibeth 1024 at 1424, Until Ibeth 1024 at 1445, Routine, Intra-op 1424 (Given - Provid er: Dm Burr MD - Comment: used for bilateral retrograde pyelogram) labetaloL (NORMODYNE;TRANDATE) 5 mg/mL injection 5 mg 5 mg, IV, EVERY 10 MINUTES PRN, Starting on Ibeth 1024 at 1352, Until Ibeth 1024 at 1901, Blood Pressure, SBP>180 AND HR>60, Routine, PACU ondansetron (ZOFRAN) 4 mg/2 mL injection 4 mg 4 mg, IV, POST-PROCEDURE ONCE PRN, 1 dose, Starting on Ibeth 10/24 at 1352, Until Ibeth 1024 at 1901, Nausea/Emesis, Routine, PACU prochlorperazine (COMPAZINE) injection 5 mg 5 mg, IV, POST-PROCEDURE ONCE PRN, 1 dose, Starting on Ibeth 10/24 at 1352, Until Ibeth 1024 at 1901, Nausea/Emesis, Routine, PACU sodium chloride 0.9% irrigation solution (CANCELED) INTRA-PROCEDURE PRN, Starting on Ibeth 1024 at 1422, Until Ibeth 1024 at 1445, Routine, Intra-op 1422 (Given - Provid er: Dm Burr MD - Comment: used for cysto irrigation) documented in this encounter
--- OUTSIDE RECORDS SUMMARY | 2024-03-18 18:12 | XMS_ITS | Encounter Summary ---
Author Organization [facility] Address 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
--- OUTSIDE RECORDS SUMMARY | 2024-03-18 18:12 | XMS_ITS | Encounter Summary ---
Author Organization [facility] Address [address] [place] [address] Care Team Providers Care Object Oriented Developer Name Role Phone Unavailable Primary Care Provider Unavailabl e Reason for Visit * Auth/Cert (Routine) Specialty Diagnoses / Procedures Referred By Zeferino t Referred To Contact Diagnoses Retention, urine Procedures LA CYSTO W/SIMPLE REMOVAL STONE & STENT LA CYSTO BLADDER W/URETERAL CATHETERIZATION LA CYSTO W/[place] [address] [place] [address] Phone: tel: fax: Referral ID Status Reason Start Date Expiration Date Visits Re quested Visits Authorized [id number] 11/30/2023 1 1 Encounter Details Date Type Department Care Team (Latest Contact Info) Description 12/23/2023 11:56 AM CDT - 12/23/2023 5:01 PM CDT Hospital Encounter [facility] [place] [address] [place] [id number] [place] [address] [place] [address] Retention, urine Discharge Disposition: Home or Self Care Social History Tobacco Use Types Packs/Day Years Used Date Smoking Tobacco: Every Day Cigarettes 03 21 Started: 2003 Tobacco Cessation:Ready to Q [...] on file 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 Damon out [facility], VALERIE Reyes Office - [place] Office - [facility] [address] - , [phone], or [phone] Exchange: [phone] [place]???s Office - [facility]???s Office - [phone] [facility] - POST TRANSURETHRAL BLADDER/URETHRA [...] or come to the Emergency Room at [facility] ([phone]) or the nearest Emergency Room. In an emergency, Call 911. documented in this encounter Medications at Time of Discharge amLODIPine (NORVASC) 5 mg tablet Take 5 mg by mouth daily. documented as of this encounter H&P Notes * Dm Burr MD - 12/23/2023 12:31 PM CDT History and Physical Patient Name: Sadi Ceja is a 68 y.o. male Date of : 1955 CSN: [id number] Date of Admission: 12/23/2023 Reason for Admission: [...] Burr MD - 12/23/2023 11:17 PM CDT [place], [place] Patient: SADI CEJA CSN: [id number] : 1955 Provider: Dm Burr MD Operative [...] operative table. General inhalation anesthesia obtained. A 22-Brazilian cystoscope was advanced under direct vision through [...] of the case, I did retain a 16-Brazilian Powell catheter and placed for discharge. This completed the procedure. No complication. Dm Burr MD MMODL D: [id number] V: [id number] CC Dm Burr MD * Kait-OP - [...] pain/comfort utilizing verbal/nonverbal pain scales; assess culturalor yazidi indicators attached to pain; administer pain medications [...] and friend. * Brief Op Note - mD Burr MD - 12/23/2023 2:37 PM CDT Brief Postoperative Note Sadi Ceja [id number] Pre-operative Diagnosis: Retention, urine Post-Op Diagnosis: Post-Op Diagnosis Codes: * Retention, urine [R33.9] Procedure-Anesthesia: PYELOGRAM RETROGRADE, Bilateral CYSTOURETHROSCOPY URETERAL STENT REMOVAL, Bilateral Anesthesia Type: General Surgeons and Role: * Dm Burr MD - Primary Additional CPT Codes: *No additional CPT codes listed in log* Procedure Start: 1421 Procedure End: 1435 Findings: ureters open Pussy urine in the bladder Cath retained. Specimens: * No specimens in log * Implants: Implant Name Type Inv. Item Serial No. Senior Account Representative Lot No. [id number] No. Used Action BILATERAL URETERAL STENTS Bilateral 2 Explanted Estimated Blood Loss: No blood loss documented. Complications: none Dm Burr MD * Kait-OP - Brooklynn Mahan RN - 12/22/2023 10:31 AM CDT This staff nurse called patient using the [phone]. Voicemail message left for patient requesting callback [phone] * Kait-OP - Brooklynn Mahan RN - 12/21/2023 2:09 PM CDT This office has not been able to reach patient at phone number listed in [facility]. ). This office is unable to send message thru My Message Portal requesting a callback since patient does not have this set-up. Call placed to surgeon's office phone number left for callback. Claudette from surgeon's office returned call, their office had another phone number. [phone]. [facility] phone numbers updated. * Kait-OP - [...] REMOVAL 12/23/2023 1:33 PM CDT Retention, urine LA CYSTOURETHROSCOPY W/URETERAL CATHETERIZATION 12/23/2023 1:33 PM CDT [...] for Exam. ? DICTATION LOCATION: Location - [facility] ? TECHNIQUE/FINDINGS: Fluoroscopy was provided by the [...] Reason for Exam. DICTATION LOCATION: Location - [facility] TECHNIQUE/FINDINGS: Fluoroscopy was provided by the radiology [...] CBC WITH DIFFERENTIAL (12/23/2023 1:40 PM CDT) Pathologist [facility] WBC 11.6(H) 4.0 - 9.8 K/uL 12/23/2023 2:01 PM CDT [facility] RBC 2.98(L) 4.50 - 5.40 M/uL 12/23/2023 2:01 PM CDT [facility] HEMOGLOBIN 9.2(L) 13.6 - 16.5 g/dL 12/23/2023 2:01 PM CDT [facility] HEMATOCRIT 28.2(L) 40.0 - 48.0 % 12/23/2023 2:01 PM CDT [facility] MCV 94.6 82.0 - 99.0 fL 12/23/2023 2:01 PM CDT [facility] MCH 30.9 27.2 - 32.6 pg 12/23/2023 2:01 PM CDT [facility] MCHC 32.6 31.5 - 35.5 g/dL 12/23/2023 2:01 PM T [facility] RDW 15.3(H) 11.5 - 14.5 % 12/23/2023 2:01 PM T [facility] RDW-STDEV 52.7(H) 37.1 - 48.7 fL 12/23/2023 2:01 PM CDT [facility] PLATELETS 456(H) 140 - 350 K/uL 12/23/2023 2:01 PM CDT [facility] MPV 9.7 9.3 - 12.4 fL 12/23/2023 2:01 PM CDT [facility] NEUTROPHILS 68 % 12/23/2023 2:01 PM CDT [facility] LYMPHOCYTES 19 % 12/23/2023 2:01 PM CDT [facility] MONOCYTES 8 % 12/23/2023 2:01 PM CDT [facility] EOSINOPHILS 1 % 12/23/2023 2:01 PM CDT [facility] BASOPHILS 1 % 12/23/2023 2:01 PM CDT [facility] IMMATURE GRANULOCYTES 3 % 12/23/2023 2:01 PM CDT [facility] Comment:IG (Immature Granulo cyte) count includes Metamyelocytes, Myelocytes, and Promyelocytes NEUTROPHIL ABSOLUTE 7.91(H) 1.90 - 7.00 K/uL 12/23/2023 2:01 PM CDT [facility] LYMPHOCYTE ABSOLUTE 2.19 0.70 - 4.50 K/uL 12/23/2023 2:01 PM CDT [facility] - . [facility] MONOCYTE ABSOLUTE 0.90 0.10 - 1.30 K/uL 12/23/2023 2:01 PM CDT [facility] - [facility] EOSINOPHIL ABSOLUTE 0.13 0.00 - 0.70 K/uL 12/23/2023 2:01 PM CDT [facility] - [facility] BASOPHILS ABSOLUTE 0.10 0.00 - 0.20 K/uL 12/23/2023 2:01 PM CDT [facility] - . [facility] IMMATURE GRANULOCYTES ABSOLUTE 0.33(H) 0.00 - 0.03 K/uL 12/23/2023 2:01 PM CDT [facility] Blood Venipuncture / Unknown 12/23/2023 1:40 PM CDT 12/23/2023 1:54 PM CDT Dm Burr MD HEMATOLOGY ORDERABLES Isabela garcia Result [facility] [employer] [facility]# [id number] [address] [place], [place] [address] [facility] [place] [address] * (ABNORMAL) BASIC METABOLIC PANEL (12/23/2023 1:40 PM CDT) SODIUM 134(L) 136 - 145 mmol/L 12/23/2023 2:27 PM CDT [facility] POTASSIUM 4.7 3.5 - 5.0 mmol/L 12/23/2023 2:27 PM CDT [facility] Comment:Moderate hemolysis p resent. Can cause significant falsely elevated result. Redraw if indicated. CHLORIDE 95(L) 98 - 107 mmol/L 12/23/2023 2:27 PM CDT [facility] CO2 25 22 - 29 mmol/L 12/23/2023 2:27 PM CDT [employer] [facility] CALCIUM 8.9 8.6 - 10.2 mg/dL 12/23/2023 2:27 PM [facility] BUN 17 8 - 23 mg/dL 12/23/2023 2:27 PM [facility] CREATININE 6.77(H) 0.67 - 1.17 mg/dL 12/23/2023 2:27 PM [facility] GLUCOSE 79 74 - 99 mg/dL 12/23/2023 2:27 PM [facility] GFR 8(L) >=60 mL/min/1.7 3 sq meter 12/23/2023 2:27 PM [facility] Comment:eGFR calculated with 2020 CKD-EPI equation. Vegetarian diet, extremely high or low muscle mass, and may affect results. Cystatin C with Glomerular Filtration Rate is a suitable alternative for these patients. ANION GAP 14 8 - 16 mmol/L 12/23/2023 2:27 PM [facility] Blood Venipuncture / Unknown 12/23/2023 1:40 PM CDT 12/23/2023 1:54 PM CDT Dm Burr MD CHEMISTRY ORDERABLES Final Result [facility]# [id number] [facility] [place] [address] documented in this encounter Visit Diagnoses Diagnosis Retention, urine- Primary Retention of urine, unspecified documented in this [...] Ibeth 12/23/23 at 1901, Pain, Routine, PACU labetaloL (NORMODYNE;TRANDATE) 5 mg/mL injection 5 mg [...] Ibeth 12/23/23 at 1901, Nausea/Emesis, Routine, PACU documented in this encounter Active and Recently Administered Medications Times are shown in CDT. Scheduled Medication Order 12/21/2023 12/22/2023 12/23/2023 ceFAZolin in sterile water (ANCEF) 2 gram/20 mL IV Syringe (PREMIX) 2,000 mg (COMPLETED) 2,000 mg, IV, PRE-PROCEDURE ONCE, 1 dose, Starting on Ibeth 12/23/23 at 1234, Until Ibeth 12/23/23 at 1420, Routine, Antibiotic Indication: Surgical prophylaxis 1415 ([facility] - Prov ider: LOUISE Mares)1420 (Stopped - [...] vial) (CANCELED) INTRA-PROCEDURE PRN, Starting on Ibeth 12/23/23 at 1424, Until Ibeth 12/23/23 at 1445, Routine, Intra-op 1424 (Given - [...] solution (CANCELED) INTRA-PROCEDURE PRN, Starting on Ibeth 12/23/23 at 1422, Until Ibeth 12/23/23 at 1445, Routine, Intra-op 1422 (Given - Provid er: Dm Burr MD - Comment: used for cysto irrigation) documented in this encounter
--- OUTSIDE RECORDS SUMMARY | 2024-03-18 18:12 | XMS_ITS | Encounter Summary ---
Author Organization [facility] Address [address] [place] [address] Care Team Providers Care Hand Bootmaker Name Role Phone Unavailable Primary Care Provider Unavailabl e Encounter Details Date Type Department Care Team (Late st Contact Info) Description 01/03/2024 External Device Data STL ABSTRACTION [...] on file Legal Sex Male 2:21 PM DIRECTOR SUPPLIER QUALITY Gender Identity Not on file Sexual Orientation Not on file documented as of this encounter Plan of Treatment Not on file documented as of this encounter Visit Diagnoses Not on filedocumented in this encounter
--- OUTSIDE RECORDS SUMMARY | 2024-03-18 18:13 | XMS_ITS | Encounter Summary ---
Author Organization [facility] Address 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
--- OUTSIDE RECORDS SUMMARY | 2024-03-18 18:13 | XMS_ITS | Encounter Summary ---
Author Organization [facility] Address 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
--- OUTSIDE RECORDS SUMMARY | 2024-03-18 18:13 | XMS_ITS | Encounter Summary ---
Author Organization [facility] Address 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
--- OUTSIDE RECORDS SUMMARY | 2024-03-18 18:13 | XMS_ITS | Encounter Summary ---
Author Organization [facility] Address 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
--- OUTSIDE RECORDS SUMMARY | 2024-03-18 18:13 | XMS_ITS | Encounter Summary ---
Author Organization [facility] Address [address] [place] [address] Care Team Providers Care Lithographic Camera Operator Name Role Phone Unavailable Primary Care Provider Unavailabl e Reason for Visit * CT Scan (Routine) - Closed Specialty Diagnoses / Procedures Referred By Contac t Referred To Contact Diagnoses Personal history of cardiovascular disorder Procedures CT HEAD WO CONTRAST Castro Spain MD [address] [place] [address] Phone: tel: fax: Referral ID Status Reason Start Date Expiration Date Visits Re quested Visits Authorized [id number] Closed 09/27/2023 02/29/2024 1 1 Encounter Details Date Type Department Care Team (Late st Contact Info) Description 09/30/2023 3:00 PM CDT Ancillary Procedure [facility] [address] [address] Castro Spain MD [address] [place] [address] Personal history of cardiovascular disorder Social History Tobacco Use Types Packs/Day Years Used Date Smoking Tobacco: Never Assessed Sex and Gender Information Value Date Recorded Sex Assigned at Not on file 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 1. ??Interval resolution of previously seen hemorrhagic contusions and subdural hematoma along the left falx. ??No evidence of new intracranial hemorrhage. 2. 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 Narrative 10/08/2023 3:32 PM CDT EXAM: ?? CT HEAD WO CONTRAST DATE: ??09/30/2023 ?? CLINICAL HISTORY: ?? Intracranial hemorrhage TECHNIQUE: ??Computed tomographic images of the head were obtained in the axial plane in both brain and bone windows without the administration of contrast. Comparison was made to an MRI of brain without contrast performed at [facility] on July 25, [address] brain without contrast performed at [facility] on July 25, 2023. FINDINGS: Prominent hypodense areas in the deep and periventricular white matter of both cerebral hemispheres are again identified. ?? Chronic lacunar infarcts involving the bilateral caudate heads and anterior limb of the left internal capsule as well as the bilateral thalami are again identified. ??Small chronic infarcts in the bilateral gomez radiata are also unchanged. ??The areas of hemorrhage previously identified in the right frontal and parietal lobes on the July 25, 2023 CT no longer visualized. ??Additionally, the small subdural hematoma described along the left falx in the frontal region is also no longer visualized. ??There is no evidence of new intracranial hemorrhage. ??The cerebellum and brainstem are normal with normal lundberg-white differentiation. The ventricles and basilar cisterns are normal. ?? There is no evidence of midline shift. ??Atherosclerotic calcifications are present in the núñez of the bilateral intracranial internal carotid and vertebral arteries. ??The paranasal sinuses and bilateral mastoid air cells are clear. There is no acute or healing skull fracture. Procedure Note Renee Mariscal MD - 10/08/2023 EXAM: CT HEAD WO CONTRAST DATE: 09/30/2023 CLINICAL HISTORY: Intracranial hemorrhage TECHNIQUE: Computed tomographic images of the head were obtained in the axial plane in both brain and bone windows without the administration of contrast. Comparison was made to an MRI of brain without contrast performed at [facility] on July 25, [address] brain without contrast performed at [facility] on July 25, 2023. FINDINGS: Prominent hypodense areas in the deep and periventricular white matter of both cerebral hemispheres are again identified. Chronic lacunar infarcts involving the bilateral caudate heads and anterior limb of the left internal capsule as well as the bilateral thalami are again identified. Small chronic infarcts in the bilateral gomez radiata are also unchanged. The areas of hemorrhage previously identified in the right frontal and parietal lobes on the July 25, 2023 CT no longer visualized. Additionally, the small subdural hematoma described along the left falx in the frontal region is also no longer visualized. There is no evidence of new intracranial hemorrhage. The cerebellum and brainstem are normal with normal lundberg-white differentiation. The ventricles and basilar cisterns are normal. There is no evidence of midline shift. Atherosclerotic calcifications are present in the núñez of the bilateral intracranial internal carotid and vertebral arteries. The paranasal sinuses and bilateral mastoid air cells are clear. There is no acute or healing skull fracture. IMPRESSION: 1. Interval resolution of previously seen hemorrhagic contusions and subdural hematoma along the left falx. No evidence of new intracranial hemorrhage. 2. 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 Castro Spain MD CT ORDERABLES Fi nal Result documented in this encounter Visit Diagnoses Diagnosis Personal history of cardiovascular disorder Personal history of unspecified circulatory disease documented in this encounter
== END 2024-03-16 12:30 | disposition home or self-care (01) | DRG 640 ==
LOC: ANHED 19:14 → ANH2MED 20:19
PROVIDERS: Internal Medicine Nephrology; Physician Assistant; Student in an Organized Health Care Education/Training Program; Admitting Provider Internal Medicine; Emergency Provider Emergency Medicine; Visit Provider Nurse Practitioner Family
DX: E87.70 Fluid overload, unspecified (principal); N18.6 End stage renal disease; I12.0 Hypertensive chronic kidney disease with stage 5 chronic kidney disease or end stage renal disease; A04.72 Enterocolitis due to Clostridium difficile, not specified as recurrent; I49.3 Ventricular premature depolarization; I49.1 Atrial premature depolarization; R94.31 Abnormal electrocardiogram [ECG] [EKG]; R06.02 Shortness of breath; D63.1 Anemia in chronic kidney disease; E87.5 Hyperkalemia; E87.20 Acidosis, unspecified; R00.1 Bradycardia, unspecified; K21.9 Gastro-esophageal reflux disease without esophagitis; N25.0 Renal osteodystrophy; F17.210 Nicotine dependence, cigarettes, uncomplicated; Z99.2 Dependence on renal dialysis
CPT/HCPCS: 36415; 71046; 78452; 80053; 82607; 82746; 82948; 83540; 83550; 83880; 84100; 85025; 85610; 85730; 86706; 87340; 87493; 93005; 93017; 93306; 96374; 99285; A9270; A9502; G0257; G0378; J1644; J1940; J2785; J7030

== ENCOUNTER 2024-03-31 14:46 | Emergency (ER) | payer MEDICARE, SELFPAY ==
--- NOTE | ~2024-03-31 | CT_ITS ---
EXAMINATION: CT brain wo con DATE: 03/31/2024 17:02 INDICATION: Facial weakness. TECHNIQUE: Computed tomography (CT) of the head was performed without intravenous contrast. The mA wa s adjusted according to patient size. Iterative reconstruction technique was employed. The dose-lengt h product was 605.33 mGy-cm. COMPARISON: None FINDINGS: There are old infarcts involving the bilateral thalami, basal ganglia, and internal capsule s. There are scattered areas of low attenuation in the cerebral white matter. There is no intracrania l hemorrhage, acute infarction, or abnormal intracranial mass lesion. The ventricles are normal in si ze. There are old blowout fractures of medial wall and floor of left orbit. The mastoid air cells are normal. IMPRESSION: 1. 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 2. Extensive nonspecific cerebral white matter disease, which likely represents chronic small vessel ischemic disease. Reviewed, dictated and finalized at location A. MATION TECHNICIAN
--- OUTSIDE RECORDS SUMMARY | 2024-03-31 14:50 | XMS_ITS | Clinical Summary ---
Author Organization [facility] Address [facility] [place] [address] [place] [address] Care Team Providers Care Skoog Operator Name Role Phone Castro Spain MD [...] Department Care Team Description 01/06/2024 1:00 PM WATER AND SEW[employer] SYSTEM[employer] SUPERINTENDENT Home Care Visit [facility] [address] [place] [address] Vesna Alcazar, PT PT OASIS DISCHARGE 01/04/2024 1:00 PM W[employer] AND SEWER SYSTEMS SUPERINTENDENT Home Care Visit [facility] [address] [address] Carson Bhat, ENTERPRISE MOBILITY ARCHITECT ENTERPRISE MOBILITY ARCHITECT HOME VISIT 01/04/2024 12:15 PM W[employer] AND SEW[employer]S SUPERINTENDENT Home Care Visit [address] [id number] Julienne Jorge, YASMEEN CASE COMMUNICATION 12/30/2023 1:00 PM CDT Home Care Visit [address] [place], [place] [id number] Bre Vaughn CASE COMMUNICATION from Last 3 Months Immunizations Name Administration Dates Next Due Fluzone (IIV3, Trivalent, 0. 5 ML Prefilled Syringe) 12/14/2023(Deferred: Patient/family declined) Social History Tobacco Use Types Packs/Day Years Used Date Smoking Tobacco: Every Day Cigarettes 0.5 47.7 Started: 08/05/1976 Smokeless Tobacco: Never Tobacco Cessation:Ready [...] or pharmacy Patient declines to respond 01/06/2024 [facility] Utilities Answer Date Recorded In the past 12 months has th e [employer], gas, oil, or water company threatened to [...] the past 12 m [facility], were you homeless or living in a longterm (including now)? No 12/08/2023 Sex and Gender Information Value Date Recorded Sex Assigned at Not on file Legal Sex Male 8:12 PM W[employer] AND [employer] SUPERINTENDENT Gender Identity Not on file Sexual Orientation Not on file Last Filed Vital Signs Vital Sign Reading Time Taken Comments Blood Pressure 98/62 01/04/2024 1:10 PM W[employer] AND SE[employer] SYSTEMS SUPERINTENDENT Pulse 82 01/04/2024 1:10 PM WATER AND SEWER SYSTEMS SUPERINTENDENT Temperature 36.3 ??C (97.3 ??F) 01/04/2024 1:10 PM CS T Respiratory Rate 18 01/04/2024 1:10 PM W[employer] AND SEWER SYSTEMS SUPERINTENDENT Oxygen Saturation 97% 01/04/2024 1:10 PM WATER AND SEWER SYSTEMS SUPERINTENDENT Inhaled Oxygen Concentration - - Weight 63.9 [...] 12/12/2023, 10/2023, 12/07/2022, Additional history exists Meningococcal B Vaccine Aged Out No l onger eligible based on patient's age to complete this topic Meningococcal Vaccine Aged Out No tre cornelia eligible based on patient's age to complete this topic RSV Immunizations Under 20 Months Aged Out No longer eligible based on patient's age to complete this topic Goals Goal Patient Goal Type Associated Problems Recent Progress Patient-Stated? Author Consistently take medications as Prescribed General Delia Shipley, RN Health - patient able to perform [...] 1:27 PM Narrative 12/12/2023 1:47 PM CDT [address] [address] Examination: CT of the abdomen and pelvis [...] Procedure Note Cody Duong MD - 12/12/2023 [place] [id number] Examination: CT of the abdomen and pelvis [...] By: Cody Duong MD, 12/12/2023 1:27 PM Taj Chamorro MD CT Final R esult from Last 3 Months or Most Recently Relevant to Health Maintenance Additional Health Concerns Infection Onset Date Last Indicated ESBL - Extended Spectrum Bet a-lactamase Comment:12/04/22 +ESBL Blood. Added from external infection. Source: [facility]. 12/04/2022 Insurance [employer] Advance Directives * Full Code (Latest Code Status on File) Date Activated Date Inactivated Comments 12/15/2023 12:27 PM * Full Code Date Activated Date Inactivated Comments 12/08/2023 2:26 PM 12/14/2023 3:47 PM * Full Code Date Activated Date Inactivated Comments 03/06/2020 12:00 AM 03/07/2020 4:54 PM Care Teams Skoog Operator Relationship Specialty Start Date End Date Castro Spain MD [address] [place] [address] PCP - General INFECTIOUS DISEASE 12/14/23
--- OUTSIDE RECORDS SUMMARY | 2024-03-31 14:50 | XMS_ITS | Patient Health Summary ---
Author Organization [facility] Address [address] [place] [address] Care Team Providers Care Kiln Firer Helper Name Role Phone Unavailable Primary Care Provider Unavailabl e Note from [facility],non-owned Affiliates and Associated Physician Practices is amultiple site organization consisting of ambulatory clinics and hospital sitesin [place], [place] and [place]. This disclosure is being madepursuant to the Care Everywhere program and may not contain all information available regarding this patient. Last updated 17.[facility] Allergies * Donovan Inhibitors(Anaphylaxis,Other) -High Criticality [...] POINT OF CARE (07/06/2023 5:53 PM CDT) [facility] Glucose WB/POC 102 70 - 106 mg/dL 07/06/2023 6:03 PM CDT [facility] Specimen Type Cap Fingerstick 2023 6:03 PM CDT [facility] Blood BLOOD SPECIMEN / Unknown 07/06/2023 5:53 PM CDT 07/06/2023 6:03 PM CDT Provider Unknown LAB - POINT OF CARE ORDERABLES Performing Organization Address City/State/[facility] Co de Phone Number [facility] [address] [place], [place] [id number] * (ABNORMAL) CBC W AUTO DIFFERENTIAL (07/06/2023 3:57 PM CDT) [facility] WBC 9.8 4.0 - 10.7 x10E9/L 07/06/2023 4:00 PM CDT [facility] RBC Count 3.76(L) 4.30 - 5.80 x10E12/L 07/06/2023 4:00 PM CDT [facility] Hemoglobin 11.4(L) 13.3 - 17.5 g/dL 07/06/2023 4:00 PM CDT [facility] Hematocrit 33.5(L) 38.7 - 51.1 % 07/06/2023 4:00 PM CDT [facility] MCV 89.1 80.0 - 98.0 fL 07/06/2023 4:00 PM CDT [facility] MCH 30.3 26.7 - 33.6 pg 07/06/2023 4:00 PM CDT [facility] MCHC 34.0 31.7 - 36.3 g/dL 07/06/2023 4:00 PM CDT [facility] RDW-CV 18.4(H) 11.3 - 14.8 % 07/06/2023 4:00 PM CDT [facility] Platelet Count 307 150 - 420 x10E9/L 07/06/2023 4:00 PM CDT [facility] MPV 9.3 7.8 - 11.4 fL 07/06/2023 4:00 PM CDT [facility] Neutrophil % 54.2 41.0 - 74.0 % 07/06/2023 4:00 PM CDT [facility] Lymphocyte % 32.6 17.0 - 47.0 % 07/06/2023 4:00 PM CDT [facility] Monocyte % 4.8 3.0 - 11.0 % 07/06/2023 4:00 PM CDT [facility] Eosinophil % 7.2(H) 0.0 - 7.0 % 07/06/2023 4:00 PM CDT [facility] Basophil % 0.9 0.0 - 1.6 % 07/06/2023 4:00 PM CDT [facility] Immature Granulocytes % 0.3 0.0 - 1.0 % 07/06/2023 4:00 PM CDT [facility] Neutrophil Absolute 5.31 1.60 - 7.50 x10E9/L 07/06/2023 4:00 PM CDT [facility] Lymphocyte Absolute 3.19 1.00 - 4.40 x10E9/L 07/06/2023 4:00 PM CDT [facility] Monocyte Absolute 0.47 0.15 - 1.00 x10E9/L 07/06/2023 4:00 PM CDT [facility] Eosinophil Absolute 0.70(H) 0.00 - 0.60 x10E9/L 07/06/2023 4:00 PM CDT [facility] Basophil Absolute 0.09 0.00 - 0.13 x10E9/L 07/06/2023 4:00 PM CDT [facility] Blood BLOOD SPECIMEN / Unknown Venipuncture / Unknown 07/06/2023 3:57 PM CDT 07/06/2023 3:57 PM CDT Herlinda Gordillo PA-C LAB - HEMATOLOGY ORDERABLES Performing Organization Address City/State/[facility] Co de Phone Number [facility] [address] [place], [place] [phone] * (ABNORMAL) COMPREHENSIVE METABOLIC PANEL (07/06/2023 3:57 PM CDT) [facility] Glucose 52(LL) 70 - 105 mg/dL 07/06/2023 4:21 PM CDT [facility] Sodium 134(L) 136 - 145 mmol/L 07/06/2023 4:21 PM CDT [facility] Potassium 3.8 3.5 - 5.1 mmol/L 07/06/2023 4:21 PM CDT [facility] Chloride 98 98 - 107 mmol/L 07/06/2023 4:21 PM CDT [facility] CO2 20(L) 22 - 29 mmol/L 07/06/2023 4:21 PM CDT [facility] Calcium 8.9 8.4 - 10.4 mg/dL 07/06/2023 4:21 PM CDT [facility] Anion Gap 16 6 - 16 mmol/L 07/06/2023 4:21 PM CDT [facility] BUN 9 7 - 26 mg/dL 07/06/2023 4:21 PM CDT [facility] Creatinine 3.11(H) 0.72 - 1.25 mg/dL 07/06/2023 4:21 PM CDT [facility] Alkaline Phosphatase 121 40 - 150 U/L 07/06/2023 4:21 PM CDT [facility] ALT 28 0 - 55 U/L 07/06/2023 4:21 PM CDT [facility] AST 39(H) 5 - 34 U/L 07/06/2023 4:21 PM CDT [facility] Protein Total 7.6 6.4 - 8.3 gm/dL 07/06/2023 4:21 PM CDT [facility] Albumin 3.7 3.4 - 5.0 gm/dL 07/06/2023 4:21 PM CDT [facility] Bilirubin Total 0.5 0.2 - 1.2 mg/dL 07/06/2023 4:21 PM CDT [facility] eGFR by CKD-EPI 21(L) >=90 mL/min/1.7 3 m2 07/06/2023 4:21 PM CDT [facility] Blood BLOOD SPECIMEN / Unknown Venipuncture / Unknown 07/06/2023 3:57 PM CDT 07/06/2023 3:57 PM CDT Herlinda Gordillo PA-C LAB - CHEMISTRY ORDERABLES [facility] [address] [place] [address]
--- OUTSIDE RECORDS SUMMARY | 2024-03-31 14:50 | XMS_ITS | Clinical Summary ---
Author Organization [facility] Address [address] [place] [address] Care Team Providers Care Acidizer Name Role Phone Unavailable Primary Care Provider Unavailabl e Source Comments [facility],non-owned Affiliates and Associated Physician Practices is amultiple site organization consisting of ambulatory clinics and hospital sitesin [place], [place], [place] and [place]. This disclosure is being madepursuant to the Care Everywhere program and may not contain all information available regarding this patient. Last updated 17.[facility] [employer] Allergies Active Allergy Reactions Criticality Noted Date [...]
--- OUTSIDE RECORDS SUMMARY | 2024-03-31 14:50 | XMS_ITS | CONTINUITY OF CARE DOCUMENT ---
Author Name alicia vargas Address Unknown Organization [facility] Address [address] [place] [address] [address] [place] [address] Phone [phone] Care Team Providers Care Loom Operator Name Role Phone Amos Landrum MD Unavailable [phone] Nathan Spain MD Christoph Unavailable [phone] Nathan Spain MD Christoph Unavailable [phone] INSURANCE PROVIDERS Payer name Policy type / Coverage type [employer] [place] [employer] party ID AETNA MEDICARE GOLD ADVANTAGE HMO Medicare [id number]
--- OUTSIDE RECORDS SUMMARY | 2024-03-31 14:50 | XMS_ITS | Clinical Summary ---
Author Organization [facility] Address [address] [place] [address] Phone Care Team Providers Care Clinical Documentation Nurse Name Role Phone Unavailable Primary Care Provider Unavailabl e Allergies No known active allergies Medications amLODIPine (NORVASC) 5 mg tablet Take 5 mg by mouth daily. 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 Gender Identity Not on file Sexual Orientation [...] Health Maintenance Due Date Last Done Comments DTAP/TDAP/TD VACCINES (1 - Tdap) 1976 PNEUMOCOCCAL VACCINE 65+ YEA RS (1 of 2 - PCV) 1976 FIT-DNA Q 3 years 2002 FIT/FOBT [...] history exists Medical Devices Explanted Type Area Hard Candy Batch Mixer Device Identifier Shelf Expiration Date Model / Serial / Lot Bilateral Ureteral Stents Explanted:Qty: 2 on 12/23/2023 by Dm Burr MD at [facility] Bilateral: Ureter Insurance AETNA [id number] [employer]TRA OPTION 2 O [facility] [id number] [employer] 2 O [id number]
--- OUTSIDE RECORDS SUMMARY | 2024-03-31 14:50 | XMS_ITS | Referral Summary ---
Author Organization [facility] Address [address] [place] [address] Care Team Providers Care Manufacturing Associate Name Role Phone Unavailable Primary Care Provider Unavailabl e Source Comments [facility],non-owned Affiliates and Associated Physician Practices is amultiple site organization consisting of ambulatory clinics and hospital sitesin [place], [place], [place] and [place]. This disclosure is being madepursuant to the Care Everywhere program and may not contain all information available regarding this patient. Last updated 17.[facility]TERPRISE Allergies Active Allergy Reactions Criticality Noted Date [...]
[2024-03-31 15:23] VITALS: BP 117/90; PULSE 84; RESP 16; TEMP 36.5; O2SAT 98
--- NOTE | 2024-03-31 16:48 | ED.NEUROSD ---
HPI - Neuro Symptoms/Deficit General Chief Complaint: Neuro Symptoms/Deficit <Jeni Huddleston PA-C - Last Filed: 04/01/24 18:04> Stated Complaint: facial twitching since this morning <Jeni Huddleston PA-C - Last Filed: 04/01/24 18:04> Time Seen by Provider: 03/31/24 16:48 <Jeni Huddleston PA-C - Last Filed: 04/01/24 18:04> Focused HPI: This is a 68 year old male that presents to the ER for facial twitching. Ongoing since this morning. They noticed it while he was getting dialysis today which prompted them to send him in for evaluation. He reports he feels like he is having difficulty speaking due to facial weakness. GENERAL: Well-appearing, well-nourished, and in no acute distress. HEAD: Normocephalic, atraumatic. CHEST: Clear to auscultation. ?No respiratory distress. HEART: Regular rate and rhythm.? NEURO: ?Alert and oriented x3. Mild left sided facial droop Patient screened in triage and initial orders placed.? ?Additional care and disposition to be based upon?diagnostic testing and treatment. <Jeni Huddleston PA-C - Last Filed: 04/01/24 18:04> History of Present Illness HPI Narrative: Agree with HPI. He does have some fasciculations the left cheek while talking to me. Reports this only occurs when he is actively trying to talk but if he is at rest he has no issues. Reports occasional cramps in peripheral muscles. No history of seizures. No numbness or tingling. No change in mental status. Patient reports he is hungry and thirsty she has not had anything to eat or drink since arriving here. <Inocencio Cody MD - Last Filed: 04/01/24 02:58> Related Data Home Medications: Home Medications ?Medication ?Instructions ?Recorded ?Confirmed ?Last Taken ?Type acetaminophen 500 mg capsule 500 mg PO Q6H PRN pain 03/12/24 03/12/24 03/11/24 History amlodipine 10 mg tablet 10 mg PO DAILY 03/12/24 03/12/24 03/11/24 History famotidine 20 mg tablet 20 mg PO DAILY 03/12/24 03/12/2403/11/25 History finasteride 5 mg tablet 5 mg PO DAILY 03/12/24 03/12/24 03/11/24 History glycerin (adult) 1 supp RECTAL PRN 03/12/24 03/12/24 03/11/24 History metoprolol tartrate 25 mg tablet 25 mg PO BID 03/12/24 03/12/24 03/11/24 History pantoprazole 40 mg tablet,delayed 40 mg PO DAILY 03/12/24 03/12/24 03/11/24 History release tamsulosin 0.4 mg capsule 0.4 mg PO HS 03/12/24 03/12/24 03/11/24 History tramadol 50 mg tablet 50 mg PO BID PRN pain 03/12/24 03/12/24 03/11/24 History <Jeni Huddleston PA-C - Last Filed: 04/01/24 18:04> Allergies/Adverse Reactions: Allergies Allergy/AdvReac Type Severity Reaction Status Date / Time ISRAEL Inhibitors Allergy Severe Unknown Verified 03/31/24 14:50 lisinopril Allergy Intermediate Itching Verified 03/31/24 14:50 oxycodone Allergy Unknown Verified 03/31/24 14:50 <Jeni Huddleston PA-C - Last Filed: 04/01/24 18:04> Review of Systems Review of Systems: All systems reviewed & are unremarkable except as noted in HPI and below <Inocencio Cody MD - Last Filed: 04/01/24 02:58> Constitutional: Constitutional: Reports no additional constitutional complaints <Inocencio Cody MD - Last Filed: 04/01/24 02:58> Cardiovascular: Cardiovascular: Reports no additional cardiovascular complaints <Inocencio Cody MD - Last Filed: 04/01/24 02:58> Respiratory: Respiratory: Reports no additional respiratory complaints <Inocencio Cody MD - Last Filed: 04/01/24 02:58> Gastrointestinal: Gastrointestinal: Reports no additional gastrointestinal complaints <Inocencio Cody MD - Last Filed: 04/01/24 02:58> Musculoskeletal: Musculoskeletal: Reports no additional musculoskeletal complaints <Inocencio Cody MD - Last Filed: 04/01/24 02:58> [facility] Past Medical History Medical History: Medical History GERD (gastroesophageal reflux disease) Hypertension End stage renal disease <Jeni Huddleston PA-C - Last Filed: 04/01/24 18:04> Social History Social History: Social History Smoking status: Current every day smoker Tobacco type: cigarettes Second hand tobacco smoke exposure: Yes Alcohol intake: current Drinks per week: 1 Substance use: never Substance use type: does not use Do You Feel Safe in your Home?: Yes Lack of Transportation: YES Lack of Food: Sometimes True Current Housing: I Have Housing Concerned About Future Housing: No Difficulty Paying Gas/Electric Bills: No Difficulty Paying for Meds: No Currently Unemployed: No Education: Decline to Answer Difficulty w/ Childcare or Family Care: No Spiritual care concerns: No <Jeni Huddleston PA-C - Last Filed: 04/01/24 18:04> Exam Narrative: GENERAL: Well-appearing, well-nourished, and in no acute distress. HEAD: Normocephalic, atraumatic. EYES: PERRL and EOMI. ENT: Mucous membranes moist. NECK: Supple. CHEST: Clear to auscultation. No respiratory distress. HEART: Regular rate and rhythm. Normal peripheral pulses. ABDOMEN: Soft, nontender, nondistended. EXTREMITIES: Normal range of motion. No edema. SKIN: Warm, dry, no rash. NEURO: Normal strength of all extremities. No slurred speech. Occasional twitching left cheek when he begins to talk. Alert and oriented x3. <Inocencio Cody MD - Last Filed: 04/01/24 02:58> Course Course Emergency Course: Patient felt to have benign fasciculations. Will give a muscle relaxer. No significant electrolyte derangement. Patient continues to only have the twitching to left cheek when he speaks, he does not have it at rest. Improved with muscle relaxer. <Inocencio Cody MD - Last Filed: 04/01/24 02:58> Vital Signs Vital signs: Vital Signs Temperature 97.7 F 03/31/24 15:23 Pulse Rate 84 03/31/24 15:23 Respiratory Rate 16 03/31/24 15:23 Blood Pressure 117/90 03/31/24 15:23 Pulse Oximetry 98 03/31/24 15:23 Temperature 97.3 F L 03/31/24 21:43 Pulse Rate 88 04/01/24 03:47 Respiratory Rate 15 04/01/24 03:47 Blood Pressure 130/82 04/01/24 03:47 Pulse Oximetry 100 04/01/24 03:47 <Jeni Huddleston PA-C - Last Filed: 04/01/24 18:04> Vital Signs Temperature 97.7 F 03/31/24 15:23 Pulse Rate 84 03/31/24 15:23 Respiratory Rate 16 03/31/24 15:23 Blood Pressure 117/90 03/31/24 15:23 Pulse Oximetry 98 03/31/24 15:23 Temperature 97.3 F L 03/31/24 21:43 Pulse Rate 88 04/01/24 03:47 Respiratory Rate 15 04/01/24 03:47 Blood Pressure 130/82 04/01/24 03:47 Pulse Oximetry 100 04/01/24 03:47 <Inocencio Cody MD - Last Filed: 04/01/24 02:58> MDM - Neuro Symptoms/Deficit Lab Data Result diagrams: 03/31/24 22:48 03/31/24 22:48 <Jeni Huddleston PA-C - Last Filed: 04/01/24 18:04> Labs: Lab Results 03/31/24 03/31/24 Range/Units 17:48 22:48 WBC 11.3 H 12.3 H (4.5-10.0) K/mm3 RBC 4.28 L 4.24 L (4.6-6.20) M/mm3 Hgb 13.2 L 13.1 L (14.0-18.0) g/dL Hct 40.5 L 39.8 L (42.0-52.0) % MCV 94.6 93.9 (80-100) fl MCH 30.8 30.9 (26-34) pg MCHC 32.6 32.9 (32-36) g/dl RDW 15.0 H 14.8 H (11.5-14.5) % Plt Count 226 236 (150-375) k/mm3 MPV 10.1 10.3 (7.4-10.4) fl Immature Gran % (Auto) 0.4 0.3 (0-0.5) % Neut % (Auto) 57.3 67.7 (45.5-73.1) % Lymph % (Auto) 28.7 20.8 (18.3-44.2) % [place] % (Auto) 9.4 H 7.9 (2.6-8.5) % Eos % (Auto) 3.6 2.8 (0-4.4) % Baso % (Auto) 0.6 0.5 (0.2-1.2) % Lymph # (Auto) 3.26 H 2.57 (0.9-3.2) K/mm3 [place] # (Auto) 1.1 H 1.0 H (0.1-0.6) K/mm3 Eos # (Auto) 0.4 H 0.4 H (0-0.3) K/mm3 Baso # (Auto) 0.1 0.1 (0.0-0.1) K/mm3 Abs Immat Gran (auto) 0.04 H 0.04 H (0.00-0.031) K/mm3 Absolute Neuts (auto) 6.5 8.4 H (1.3-6.7) K/mm3 Absolute Nucleated RBC 0.000 0.000 (0.0-0.012) K/mm3 Nucleated RBC % 0.0 0.0 (0.0-0.2) % PT 12.3 (11.1-14.7) Seconds INR 0.9 APTT 27.7 (22.3-36.8) Seconds Sodium 137 135 L (137-145) mmol/L Potassium 4.1 3.8 (3.4-5.0) mmol/L Chloride 94 L 92 L (98-107) mmol/L Carbon Dioxide 30 30 (22-30) mmol/L Anion Gap 13 H 13 H (4-12) mmol/L BUN 15 17 (9-20) mg/dL Creatinine 5.82 H 6.73 H (0.7-1.3) mg/dL Estim Creat Clear Calc 11 10 ml/min Estimated GFR 12 L 10 L (59 - ) Glucose 72 84 (65-110) mg/dL Calcium 9.3 9.6 (8.4-10.2) mg/dL Phosphorus 4.7 H (2.5-4.5) mg/dL Magnesium 2.0 2.0 (1.6-2.3) mg/dL Total Bilirubin 0.5 0.5 (0.2-1.3) mg/dL AST 21 22 (17-59) U/L ALT 11 10 (6-50) U/L Alkaline Phosphatase 83 80 (38-126) U/L Total Creatine Kinase 81 (55-170) U/L Total Protein 9.0 H 8.0 (6.3-8.2) g/dL Albumin 4.6 4.7 (3.5-5.1) g/dL <Jeni Huddleston PA-C - Last Filed: 04/01/24 18:04> Lab Results 03/31/24 03/31/24 Range/Units 17:48 22:48 WBC 11.3 H 12.3 H (4.5-10.0) K/mm3 RBC 4.28 L 4.24 L (4.6-6.20) M/mm3 Hgb 13.2 L 13.1 L (14.0-18.0) g/dL Hct 40.5 L 39.8 L (42.0-52.0) % MCV 94.6 93.9 (80-100) fl MCH 30.8 30.9 (26-34) pg MCHC 32.6 32.9 (32-36) g/dl RDW 15.0 H 14.8 H (11.5-14.5) % Plt Count 226 236 (150-375) k/mm3 MPV 10.1 10.3 (7.4-10.4) fl Immature Gran % (Auto) 0.4 0.3 (0-0.5) % Neut % (Auto) 57.3 67.7 (45.5-73.1) % Lymph % (Auto) 28.7 20.8 (18.3-44.2) % [place] % (Auto) 9.4 H 7.9 (2.6-8.5) % Eos % (Auto) 3.6 2.8 (0-4.4) % Baso % (Auto) 0.6 0.5 (0.2-1.2) % Lymph # (Auto) 3.26 H 2.57 (0.9-3.2) K/mm3 [place] # (Auto) 1.1 H 1.0 H (0.1-0.6) K/mm3 Eos # (Auto) 0.4 H 0.4 H (0-0.3) K/mm3 Baso # (Auto) 0.1 0.1 (0.0-0.1) K/mm3 Abs Immat Gran (auto) 0.04 H 0.04 H (0.00-0.031) K/mm3 Absolute Neuts (auto) 6.5 8.4 H (1.3-6.7) K/mm3 Absolute Nucleated RBC 0.000 0.000 (0.0-0.012) K/mm3 Nucleated RBC % 0.0 0.0 (0.0-0.2) % PT 12.3 (11.1-14.7) Seconds INR 0.9 APTT 27.7 (22.3-36.8) Seconds Sodium 137 135 L (137-145) mmol/L Potassium 4.1 3.8 (3.4-5.0) mmol/L Chloride 94 L 92 L (98-107) mmol/L Carbon Dioxide 30 30 (22-30) mmol/L Anion Gap 13 H 13 H (4-12) mmol/L BUN 15 17 (9-20) mg/dL Creatinine 5.82 H 6.73 H (0.7-1.3) mg/dL Estim Creat Clear Calc 11 10 ml/min Estimated GFR 12 L 10 L (59 - ) Glucose 72 84 (65-110) mg/dL Calcium 9.3 9.6 (8.4-10.2) mg/dL Phosphorus 4.7 H (2.5-4.5) mg/dL Magnesium 2.0 2.0 (1.6-2.3) mg/dL Total Bilirubin 0.5 0.5 (0.2-1.3) mg/dL AST 21 22 (17-59) U/L ALT 11 10 (6-50) U/L Alkaline Phosphatase 83 80 (38-126) U/L Total Creatine Kinase 81 (55-170) U/L Total Protein 9.0 H 8.0 (6.3-8.2) g/dL Albumin 4.6 4.7 (3.5-5.1) g/dL <Inocencio Cody MD - Last Filed: 04/01/24 02:58> Imaging Data Radiologist's impression: ITS Impressions Head CT 03/31/24 17:03 IMPRESSION: 1. 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 2. Extensive nonspecific cerebral white matter disease, which likely represents chronic small vessel ischemic disease. <Inocencio Cody MD - Last Filed: 04/01/24 02:58> Critical Care Time Critical Care Time Critical Care Time: No <Jeni Huddleston PA-C - Last Filed: 04/01/24 18:04> Discharge Plan Discharge Clinical Impression: Fasciculations of muscle <Jeni Huddleston PA-C - Last Filed: 04/01/24 18:04> Patient Disposition: Home, Self-Care <Jeni Huddleston PA-C - Last Filed: 04/01/24 18:04> Condition: Stable <Jeni Huddleston PA-C - Last Filed: 04/01/24 18:04> Instructions: Muscle Spasm (ED) <Jeni Huddleston PA-C - Last Filed: 04/01/24 18:04> Additional Instructions: Return ER if you have new numbness weakness when arm or leg, you have fall with injury, you develop chest pain shortness of breath, you have additional concerns. <Jeni Huddleston PA-C - Last Filed: 04/01/24 18:04> Patient Language: Sammarinese <Jeni Huddleston PA-C - Last Filed: 04/01/24 18:04> Prescriptions: New cyclobenzaprine 5 mg tablet 5 mg PO TID PRN (Reason: muscle spasm) Qty: 14 0RF No Action amlodipine 10 mg tablet 10 mg PO DAILY tramadol 50 mg tablet 50 mg PO BID PRN (Reason: pain) famotidine 20 mg tablet 20 mg PO DAILY tamsulosin 0.4 mg capsule 0.4 mg PO HS pantoprazole 40 mg tablet,delayed release (DR/EC) 40 mg PO DAILY finasteride 5 mg tablet 5 mg PO DAILY metoprolol tartrate 25 mg tablet 25 mg PO BID glycerin (adult) Suppository 1 supp RECTAL PRN acetaminophen 500 mg capsule 500 mg PO Q6H PRN (Reason: pain) cyanocobalamin (vitamin B-12) [Vitamin B-12] 250 mcg Tablet 250 mcg PO QAM Qty: 30 0RF vancomycin 125 mg capsule 125 mg PO QID Qty: 40 0RF Rx Instructions: take 125 mg 4 times per day for 10 days <Jeni Huddleston PA-C - Last Filed: 04/01/24 18:04> Follow-up/Referrals: PHYSICIAN NOT ON STAFF,NONSTAFF [Primary Care Provider] - 1 Week <Jeni Huddleston PA-C - Last Filed: 04/01/24 18:04>
[2024-03-31 17:56] LABS: Basophils Absolute Auto 0.1 K/mm3 (0.0-0.1); Basophils Percent Auto 0.6 % (0.2-1.2); Eosinophils Absolute Auto 0.4 K/mm3 (0-0.3); Eosinophils Percent Auto 3.6 % (0-4.4); Hematocrit 40.5 % (42.0-52.0); Hemoglobin 13.2 g/dL (14.0-18.0); Immature Granulocyte Absolute 0.04 K/mm3 (0.00-0.031); Immature Granulocyte Percent A 0.4 % (0-0.5); Lymphocytes Absolute Auto 3.26 K/mm3 (0.9-3.2); Lymphocytes Percent Auto 28.7 % (18.3-44.2); Mean Corpuscular HGB Conc 32.6 g/dl (32-36); Mean Corpuscular Hemoglobin 30.8 pg (26-34); Mean Corpuscular Volume 94.6 fl (80-100); Mean Platelet Volume 10.1 fl (7.4-10.4); Monocytes Absolute Auto 1.1 K/mm3 (0.1-0.6); Monocytes Percent Auto 9.4 % (2.6-8.5); Neutrophils Absolute Auto 6.5 K/mm3 (1.3-6.7); Neutrophils Percent Auto 57.3 % (45.5-73.1); Platelet Count Result 226 k/mm3 (150-375); Red Blood Count 4.28 M/mm3 (4.6-6.20); White Blood Count 11.3 K/mm3 (4.5-10.0)
[2024-03-31 18:06] LABS: INR 0.9; Prothrombin Time 12.3 Seconds (11.1-14.7)
[2024-03-31 18:07] LABS: Alanine Aminotransferase 11 U/L (6-50); Albumin Level 4.6 g/dL (3.5-5.1); Alkaline Phosphatase 83 U/L (38-126); Anion Gap 13 mmol/L (4-12); Aspartate Amino Transferase 21 U/L (17-59); Bilirubin,Total 0.5 mg/dL (0.2-1.3); Blood Urea Nitrogen 15 mg/dL (9-20); Calcium 9.3 mg/dL (8.4-10.2); Carbon Dioxide 30 mmol/L (22-30); Chloride 94 mmol/L (98-107); Estimated CRCL calculation 11 ml/min; Estimated Glomerular Filt Rate 12; Glucose 72 mg/dL (65-110); Partial Thromboplastin Time 27.7 Seconds (22.3-36.8); Potassium 4.1 mmol/L (3.4-5.0); Sodium 137 mmol/L (137-145)
[2024-03-31 21:43] VITALS: BP 148/100; PULSE 84; RESP 20; TEMP 36.3; O2SAT 100
--- OUTSIDE RECORDS SUMMARY | 2024-03-31 22:27 | XMS_ITS | Clinical Summary ---
Author Organization [facility] Address [address] 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 Bilateral: Ureter Insurance [employer]ET[employer] [id number] [employer]VANTRA OPTION 2 O [facility] [id number] [employer]VANTRA OPTION 2 O [facility]
--- OUTSIDE RECORDS SUMMARY | 2024-03-31 22:27 | XMS_ITS | CONTINUITY OF CARE DOCUMENT ---
Author Name alicia vargas Address Unknown Organization [facility] Address [address] [place] [address] [address] [place] [address] Phone [phone] Care Team Providers Care Modern And Contemporary Art Curator Name Role Phone Amos Landrum MD Unavailable [phone] Nathan Spain MD Christoph Unavailable [phone] Nathan Spain MD Christoph Unavailable [phone] INSURANCE PROVIDERS Payer name Policy type / Coverage type [place] red democrat ID [employer]ETNA MEDICARE GOLD ADVANTAGE HMO Medicare [id number]
--- OUTSIDE RECORDS SUMMARY | 2024-03-31 22:27 | XMS_ITS | Patient Health Summary ---
Author Organization [facility] Address [address] [place] [address] Care Team Providers Care Lacquer Machine Feeder Name Role Phone Unavailable Primary Care Provider Unavailabl e Note from [facility],non-owned Affiliates and Associated Physician Practices is amultiple site organization consisting of ambulatory clinics and hospital sitesin [place], [place] and [place]. This disclosure is being madepursuant to the Care Everywhere program and may not contain all information available regarding this patient. Last updated 17.[facility] Allergies * Donovan Inhibitors(Anaphylaxis,Other) -High Criticality Social [...] POINT OF CARE (07/06/2023 5:53 PM CDT) [facility] Glucose WB/POC 102 70 - 106 mg/dL 07/06/2023 6:03 PM CDT [facility] Specimen Type Cap Fingerstick 2023 6:03 PM CDT [facility] Blood BLOOD SPECIMEN / Unknown 07/06/2023 5:53 PM CDT 07/06/2023 6:03 PM CDT Provider Unknown LAB - POINT OF CARE ORDERABLES Performing Organization Address City/State/[facility] Co de Phone Number [facility] [address] [place], [place] [id number] * (ABNORMAL) CBC W AUTO DIFFERENTIAL (07/06/2023 3:57 PM CDT) [facility] WBC 9.8 4.0 - 10.7 x10E9/L 07/06/2023 4:00 PM CDT [facility] RBC Count 3.76(L) 4.30 - 5.80 x10E12/L 07/06/2023 4:00 PM CDT [facility] Hemoglobin 11.4(L) 13.3 - 17.5 g/dL 07/06/2023 4:00 PM CDT [facility] Hematocrit 33.5(L) 38.7 - 51.1 % 07/06/2023 4:00 PM CDT [facility] MCV 89.1 80.0 - 98.0 fL 07/06/2023 4:00 PM CDT [facility] MCH 30.3 26.7 - 33.6 pg 07/06/2023 4:00 PM CDT [facility] MCHC 34.0 31.7 - 36.3 g/dL 07/06/2023 4:00 PM CDT [facility] RDW-CV 18.4(H) 11.3 - 14.8 % 07/06/2023 4:00 PM CDT [facility] Platelet Count 307 150 - 420 x10E9/L 07/06/2023 4:00 PM CDT [facility] MPV 9.3 7.8 - 11.4 fL 07/06/2023 4:00 PM CDT [facility] Neutrophil % 54.2 41.0 - 74.0 % 07/06/2023 4:00 PM CDT [facility] Lymphocyte % 32.6 17.0 - 47.0 % 07/06/2023 4:00 PM CDT [facility] Monocyte % 4.8 3.0 - 11.0 % 07/06/2023 4:00 PM CDT [facility] Eosinophil % 7.2(H) 0.0 - 7.0 % 07/06/2023 4:00 PM CDT [facility] Basophil % 0.9 0.0 - 1.6 % 07/06/2023 4:00 PM CDT [facility] Immature Granulocytes % 0.3 0.0 - 1.0 % 07/06/2023 4:00 PM CDT [facility] Neutrophil Absolute 5.31 1.60 - 7.50 x10E9/L 07/06/2023 4:00 PM CDT [facility] Lymphocyte Absolute 3.19 1.00 - 4.40 x10E9/L 07/06/2023 4:00 PM CDT [facility] Monocyte Absolute 0.47 0.15 - 1.00 x10E9/L 07/06/2023 4:00 PM CDT [facility] Eosinophil Absolute 0.70(H) 0.00 - 0.60 x10E9/L 07/06/2023 4:00 PM CDT [facility] Basophil Absolute 0.09 0.00 - 0.13 x10E9/L 07/06/2023 4:00 PM CDT [facility] Blood BLOOD SPECIMEN / Unknown Venipuncture / Unknown 07/06/2023 3:57 PM CDT 07/06/2023 3:57 PM CDT Herlinda Gordillo PA-C LAB - HEMATOLOGY ORDERABLES Performing Organization Address City/State/[facility] Co de Phone Number [facility] [address], [place] [phone] * (ABNORMAL) COMPREHENSIVE METABOLIC PANEL (07/06/2023 3:57 PM CDT) [facility] Glucose 52(LL) 70 - 105 mg/dL 07/06/2023 4:21 PM CDT [facility] Sodium 134(L) 136 - 145 mmol/L 07/06/2023 4:21 PM CDT [facility] Potassium 3.8 3.5 - 5.1 mmol/L 07/06/2023 4:21 PM CDT [facility] Chloride 98 98 - 107 mmol/L 07/06/2023 4:21 PM CDT [facility] CO2 20(L) 22 - 29 mmol/L 07/06/2023 4:21 PM CDT [facility] Calcium 8.9 8.4 - 10.4 mg/dL 07/06/2023 4:21 PM CDT [facility] Anion Gap 16 6 - 16 mmol/L 07/06/2023 4:21 PM CDT [facility] BUN 9 7 - 26 mg/dL 07/06/2023 4:21 PM CDT [facility] Creatinine 3.11(H) 0.72 - 1.25 mg/dL 07/06/2023 4:21 PM CDT [facility] Alkaline Phosphatase 121 40 - 150 U/L 07/06/2023 4:21 PM CDT [facility] ALT 28 0 - 55 U/L 07/06/2023 4:21 PM CDT [facility] AST 39(H) 5 - 34 U/L 07/06/2023 4:21 PM CDT [facility] Protein Total 7.6 6.4 - 8.3 gm/dL 07/06/2023 4:21 PM CDT [facility] Albumin 3.7 3.4 - 5.0 gm/dL 07/06/2023 4:21 PM CDT [facility] Bilirubin Total 0.5 0.2 - 1.2 mg/dL 07/06/2023 4:21 PM CDT [facility] eGFR by CKD-EPI 21(L) >=90 mL/min/1.7 3 m2 07/06/2023 4:21 PM CDT [facility] Blood BLOOD SPECIMEN / Unknown Venipuncture / Unknown 07/06/2023 3:57 PM CDT 07/06/2023 3:57 PM CDT Herlinda Gordillo PA-C LAB - CHEMISTRY ORDERABLES [facility] [address] [place] [address]
--- OUTSIDE RECORDS SUMMARY | 2024-03-31 22:27 | XMS_ITS | Referral Summary ---
Author Organization [facility] Address [address] [place] [address] Care Team Providers Care Trestle Mainternance Laborer Name Role Phone Unavailable Primary Care Provider Unavailabl e Source Comments [facility],non-owned Affiliates and Associated Physician Practices is amultiple site organization consisting of ambulatory clinics and hospital sitesin [place], [place], [place] and [place]. This disclosure is being madepursuant to the Care Everywhere program and may not contain all information available regarding this patient. Last updated 17.[facility] [employer] Allergies Active Allergy Reactions Criticality Noted Date Comments Donvoan Inhibitors Anaphylaxis,Other High 07/02/2018 angioedema angioedema Social [...]
--- OUTSIDE RECORDS SUMMARY | 2024-03-31 22:27 | XMS_ITS | Clinical Summary ---
Author Organization [facility] Address [facility] [place] [address] [place] [address] Care Team Providers Care Burring Wheel Operator Name Role Phone Castro Spain MD [...] Department Care Team Description 01/06/2024 1:00 PM SILK PRESSER Home Care Visit [facility] Care [address] [place] [address] Vesna Alcazar, PT PT OASIS DISCHARGE 01/04/2024 1:00 PM SILK PRESSER Home Care Visit [facility] Care [address] [address] Carson Bhat, CONTRACT NEGOTIATION SPECIALIST CONTRACT NEGOTIATION SPECIALIST HOME VISIT 01/04/2024 12:15 PM SILK PRESSER Home Care Visit [address] [phone] Julienne Jorge, YASMEEN CASE COMMUNICATION 12/30/2023 1:00 PM CDT Home Care Visit [address] [place], [place] [phone] Bre Vaughn CASE COMMUNICATION from Last 3 [...] or pharmacy Patient declines to respond 01/06/2024 [facility] Utilities Answer Date Recorded In the past 12 months has th e [employer], gas, oil, or water company threatened to [...] any time in the past 12 m [facility], were you homeless or living in a longterm (including now)? No 12/08/2023 Sex and Gender Information Value Date Recorded Sex Assigned at Not on file Legal Sex Male 8:12 PM SILK PRESSER Gender Identity Not on file Sexual Orientation Not on file Last Filed Vital Signs Vital Sign Reading Time Taken Comments Blood Pressure 98/62 01/04/2024 1:10 PM SILK PRESSER Pulse 82 01/04/2024 1:10 PM SILK PRESSER Temperature 36.3 ??C (97.3 ??F) 01/04/2024 1:10 PM CS T Respiratory Rate 18 01/04/2024 1:10 PM SILK PRESSER Oxygen Saturation 97% 01/04/2024 1:10 PM SILK PRESSER Inhaled Oxygen Concentration - - Weight 63.9 [...] 1:27 PM Narrative 12/12/2023 1:47 PM CDT [address] [address] Examination: CT of the abdomen and pelvis [...] Procedure Note Cody Duong MD - 12/12/2023 [place] [address] Examination: CT of the abdomen and pelvis [...] +ESBL Blood. Added from external infection. Source: [facility]. 12/04/2022 Insurance [employer] Advance Directives * Full Code (Latest Code Status on File) Date Activated Date Inactivated Comments 12/15/2023 12:27 PM * Full Code Date Activated Date Inactivated Comments 12/08/2023 2:26 PM 12/14/2023 3:47 PM * Full Code Date Activated Date Inactivated Comments 03/06/2020 12:00 AM 03/07/2020 4:54 PM Care Teams Burring Wheel Operator Relationship Specialty Start Date End Date Castro Spain MD [address] [place] [address] PCP - General INFECTIOUS DISEASE 12/14/23
--- OUTSIDE RECORDS SUMMARY | 2024-03-31 22:27 | XMS_ITS | Clinical Summary ---
Author Organization [facility] Address [address] [place] [address] Care Team Providers Care Administrative Associate Name Role Phone Unavailable Primary Care Provider Unavailabl e Source Comments [facility],non-owned Affiliates and Associated Physician Practices is amultiple site organization consisting of ambulatory clinics and hospital sitesin [place], [place], [place] and [place]. This disclosure is being madepursuant to the Care Everywhere program and may not contain all information available regarding this patient. Last updated 17.[facility] Allergies Active Allergy Reactions Criticality Noted Date [...]
[2024-03-31 22:52] VITALS: BP 146/94; PULSE 77; RESP 15; O2SAT 100
[2024-03-31 22:54] LABS: Basophils Absolute Auto 0.1 K/mm3 (0.0-0.1); Basophils Percent Auto 0.5 % (0.2-1.2); Eosinophils Absolute Auto 0.4 K/mm3 (0-0.3); Eosinophils Percent Auto 2.8 % (0-4.4); Hematocrit 39.8 % (42.0-52.0); Hemoglobin 13.1 g/dL (14.0-18.0); Immature Granulocyte Absolute 0.04 K/mm3 (0.00-0.031); Immature Granulocyte Percent A 0.3 % (0-0.5); Lymphocytes Absolute Auto 2.57 K/mm3 (0.9-3.2); Lymphocytes Percent Auto 20.8 % (18.3-44.2); Mean Corpuscular HGB Conc 32.9 g/dl (32-36); Mean Corpuscular Hemoglobin 30.9 pg (26-34); Mean Corpuscular Volume 93.9 fl (80-100); Mean Platelet Volume 10.3 fl (7.4-10.4); Monocytes Percent Auto 7.9 % (2.6-8.5); Neutrophils Absolute Auto 8.4 K/mm3 (1.3-6.7); Neutrophils Percent Auto 67.7 % (45.5-73.1); Platelet Count Result 236 k/mm3 (150-375); Red Blood Count 4.24 M/mm3 (4.6-6.20); Red Cell Distribution Width 14.8 % (11.5-14.5); White Blood Count 12.3 K/mm3 (4.5-10.0)
[2024-03-31 23:05] LABS: Alanine Aminotransferase 10 U/L (6-50); Albumin Level 4.7 g/dL (3.5-5.1); Alkaline Phosphatase 80 U/L (38-126); Anion Gap 13 mmol/L (4-12); Aspartate Amino Transferase 22 U/L (17-59); Bilirubin,Total 0.5 mg/dL (0.2-1.3); Blood Urea Nitrogen 17 mg/dL (9-20); Calcium 9.6 mg/dL (8.4-10.2); Carbon Dioxide 30 mmol/L (22-30); Chloride 92 mmol/L (98-107); Estimated CRCL calculation 10 ml/min; Estimated Glomerular Filt Rate 10; Glucose 84 mg/dL (65-110); Potassium 3.8 mmol/L (3.4-5.0); Sodium 135 mmol/L (137-145)
[2024-03-31 23:30] LABS: Creatine Kinase 81 U/L (55-170); Phosphorus 4.7 mg/dL (2.5-4.5)
[2024-04-01 01:02] VITALS: BP 108/68; PULSE 81; RESP 15; O2SAT 100
[2024-04-01] MEDS: CYCLOBENZAPRINE HCL 10 MG TABLET PO (01:50)
[2024-04-01 02:46] VITALS: BP 134/86; PULSE 74; RESP 15; O2SAT 100
[2024-04-01 03:47] VITALS: BP 130/82; PULSE 88; RESP 15; O2SAT 100
== END 2024-04-01 03:48 | disposition home or self-care (01) ==
PROVIDERS: Physician Assistant; Emergency Provider Emergency Medicine
DX: R25.3 Fasciculation (principal); I12.0 Hypertensive chronic kidney disease with stage 5 chronic kidney disease or end stage renal disease; N18.6 End stage renal disease; K21.9 Gastro-esophageal reflux disease without esophagitis; F17.210 Nicotine dependence, cigarettes, uncomplicated; Z99.2 Dependence on renal dialysis; Z79.899 Other long term (current) drug therapy; R90.82 White matter disease, unspecified
CPT/HCPCS: 36415; 70450; 80053; 82550; 83735; 84100; 85025; 85610; 85730; 99284; A9270

== ENCOUNTER 2024-10-06 02:48 | Emergency (ER) | payer MEDICARE, MEDICAID, SELFPAY ==
[2024-10-06] VITALS (8 sets, daily range): BP systolic 157–170; BP diastolic 79–111; PULSE 80–94; RESP 16–18; TEMP 36.5–36.8; O2SAT 97–100
--- NOTE | ~2024-10-06 | XR_ITS ---
Supine and upright views of the abdomen Clinical history: Constipation Findings: Bowel gas pattern is nonspecific. No evidence for obstruction or free air. No abnormal mass lesion or calcification is seen. There is advanced degenerative change of the right hip joint. Impression: Nonspecific bowel gas pattern. Small to moderate stool burden. Reviewed, dictated and finalized at [facility]. Impression: Nonspecific bowel gas pattern. Small to moderate stool burden.
--- NOTE | ~2024-10-06 | CT_ITS ---
CT of the Abdomen and Pelvis: Indication: Abdominal pain Technique: 2.5 mm axial scans were obtained through the abdomen and pelvis following intravenous adm inistration of 100 cc of Omnipaque 350. Dose reduction technique was used on this scan by utilizing a utomated exposure control and iterative reconstruction technique. The dose-length product (DLP) was 7 34.58 mGy-cm. Findings: Scans through the lung bases are unremarkable. Diffuse hepatic steatosis present. The spleen, pancreas, and adrenal glands are within normal limits. Probable gallstones and/or gallbladder sludge. There is severe bilateral hydroureteronephrosis. Ther e are atherosclerotic calcifications of the aorta. No lymphadenopathy. No bowel obstruction or bowel wall thickening. There is no evidence to suggest acute appendicitis. Images through the pelvis were performed. Urinary bladder markedly distended with mild diffuse bladde r wall thickening. No pelvic mass evident. No ascites. Impression: Severe bilateral hydroureteronephrosis with distended urinary bladder and mild bladder wall thickenin g. Correlate for bladder outlet obstruction (though no obstructing mass is seen), urinary retention, or neurogenic bladder. Chronic vesicoureteral reflux could be a potential alternative consideration. Diffuse hepatic steatosis. Cholelithiasis/gallbladder sludge. Reviewed, dictated and finalized at location . Impression: Severe bilateral hydroureteronephrosis with distended urinary bladder and mild bladder wall thickening. Correlate for bladder outlet obstruction (though no ob structing mass is seen), urinary retention, or neurogenic bladder. Chronic vesi coureteral reflux could be a potential alternative consideration. Diffuse hepatic steatosis. Cholelithiasis/gallbladder sludge.
--- OUTSIDE RECORDS SUMMARY | 2024-10-06 02:50 | XMS_ITS | Clinical Summary ---
Author Organization [facility] Address Formerly [facility], later [facility] [place] [address] Care Team Providers Care Blast Furnace Blower Name Role Phone Castro Spain MD Primary Care Provider U navailable Allergies Active Allergy Reactions Criticality Noted Date [...] angiotensi n converting enzyme inhibitor (ISRAEL-I) 03/06/2020 Immunizations Immunization Administration Dates Next Due Fluzone (IIV3, Trivalent, 0. 5 ML Prefilled Syringe) 12/14/2023(Deferred: Patient/family declined) Social History Tobacco Use Types Packs/Day Years Used Date Smoking Tobacco: Every Day Cigarettes 0.5 48.2 Started: 08/05/1976 Smokeless Tobacco: Never Tobacco Cessation:Ready [...] or pharmacy Patient declines to respond 01/06/2024 [facility] Utilities Answer Date Recorded In the past 12 months has e [employer], oil, or water [employer] threatened to shut off services in your [...] any time in the past 12 m [facility], were you homeless or living in a skilled nursing (including now)? No 12/08/2023 Sex and Gender Information Value Date Recorded Sex Assigned at Not on file Legal Sex Male 8:12 PM RESIN MIXER Gender Identity Not on file Sexual Orientation Not on file Last Filed Vital Signs Vital Sign Reading Time Taken Comments Blood Pressure 98/62 01/04/2024 1:10 PM RESIN MIXER Pulse 82 01/04/2024 1:10 PM RESIN MIXER Temperature 36.3 C (97.3 F) 01/04/2024 1:10 PM RESIN MIXER Respiratory Rate 18 01/04/2024 1:10 PM RESIN MIXER Oxygen Saturation 97% 01/04/2024 1:10 PM RESIN MIXER Inhaled Oxygen Concentration - - Weight 63.9 kg (140 lb 14 oz) 12/12/2023 4:19 AM CDT Height 182.9 cm (6') 12/08/2023 8:43 AM CDT Body Mass Index 19.11 12/08/2023 8:43 AM CDT Plan of Treatment Health Maintenance Due Date Last Done Comments Colorectal Cancer Screening Colonoscopy (10 Years) 1957 DTaP, Tdap and Td Vaccines (1 - Tdap) 1976 Pneumococcal Vaccine: 50+ Years (1 of 2 - PCV) 1976 Lung Cancer Screening 05/19/2007 Zoster Vaccines (1 of 2) 05/19/2007 RSV Immunization or 60+ Years (1 - Risk 60-74 years 1-dose series) 2017 Annual Medicare Wellness Visit 2022 COVID-19 Vaccine (2 - season) 2023 01/10/2022 Hepatitis C Completed 12/11/2022, 11/29, 12/08/2022 AAA SCREENING Completed 12/12/2023, 10/2023, 12/07/2022, Additional [...] take medications as Prescribed General No Delia Sailnas, RN Health - patient able to perform ADLs independently Lifestyle No Renee Price, taxation inspector Procedure Name Priority Date/Time Associated Diagnosis Comments CT ABD+PEL W CON Today 12/12/2023 1:05 PM CDT from Last 3 Months or Most Recently Relevant to Health Maintenance Results * CT ABD+PEL W CON (12/12/2023 1:05 PM CDT) Anatomical Region Laterality Modality Abdomen Computed Tomogra phy 12/12/2023 1:27 PM CDT Impressions 12/12/2023 1:47 PM CDT IMPRESSION: 1. Genitourinary abnormalities as described. Clinical correlation required. See text. 2. Possible fecal impaction. 3. Redemonstrated cholelithiasis. Referred By: Interpreted By: Cody Duong MD, 12/12/2023 1:27 PM Narrative 12/12/2023 1:47 PM CDT [facility] [address] [place], [place] [address] Examination: CT of the abdomen and pelvis [...] the lower lobes, greater on the right. The lung bases are otherwise clear. No pleural effusions are seen. Cholelithiasis is again evident without signs of cholecystitis. The liver, spleen, pancreas and adrenal glands appear unremarkable. Bilateral ureteral stents remain in place in stable position. There is stable moderate bilateral hydronephrosis and hydroureter. Diffuse mural thickening of the urinary bladder suggesting muscular hypertrophy from outlet obstruction is again evident. There is diffuse urothelial enhancement consistent with pyelitis/ureteritis/cystitis. A few gas bubbles are now present in the right renal pelvis further raising concern for infection. The kidneys are otherwise unremarkable. A normal-appearing appendix is visible. A mass of stool is now present in the rectum suggesting fecal impaction. Clinical correlation is required. Incompletely imaged peripherally enhancing focus in the superior aspect of the right hemiscrotum is of uncertain etiology (image 167 for example). Consider sonographic correlation. There is no ascites, free air, lymphadenopathy or bowel distention. The caliber of the abdominal aorta is normal. Procedure Note Cody Duong MD - 12/12/2023 [facility] [address] [place], [place] [address] Examination: CT of the abdomen and pelvis [...] +ESBL Blood. Added from external infection. Source: [facility]. 12/04/2022 Insurance [employer] AETNA Advance Directives * Full Code (Latest Code Status on File) Date Activated Date Inactivated Comments 12/15/2023 12:27 PM * Full Code Date Activated Date Inactivated Comments 12/08/2023 2:26 PM 12/14/2023 3:47 PM * Full Code Date Activated Date Inactivated Comments 03/06/2020 12:00 AM 03/07/2020 4:54 PM Care Teams Blast Furnace Blower Relationship Specialty Start Date End Date Castro Spain MD PCP - General INFECTIOUS DISEASE 12/14/23
--- OUTSIDE RECORDS SUMMARY | 2024-10-06 02:50 | XMS_ITS | Clinical Summary ---
Author Organization [facility] Address [address] [place] [address] Care Team Providers Care Comedian Name Role Phone Unavailable Primary Care Provider Unavailabl e Source Comments [facility],non-owned Affiliates and Associated Physician Practices is amultiple site organization consisting of ambulatory clinics and hospital sitesin [place], [place], [place] and [place]. This disclosure is being madepursuant to the Care Everywhere program and may not contain all information available regarding this patient. Last updated 17.[facility] [employer] Allergies Active Allergy Reactions Criticality Noted Date Comments Donovan Inhibitors Anaphylaxis,Other High 07/02/2018 angioedema angioedema Social History Tobacco Use Types Packs/Day Years Used Date Smoking Tobacco: Never Assessed Sex and Gender Information Value Date Recorded Sex Assigned at Not on file Legal Sex Male 9:03 AM CDT Gender Identity Not on file Sexual Orientation Not on file Last Filed Vital Signs Vital Sign Reading Time Taken Comments Blood Pressure 148/65 07/06/2023 3:41 PM CDT Pulse 93 07/06/2023 3:41 PM CDT Temperature 36.6 C (97.8 F) 07/06/2023 3:41 PM CDT Respiratory Rate 18 07/06/2023 3:41 PM CDT Oxygen Saturation 99% 07/06/2023 3:41 PM CDT Inhaled Oxygen Concentration - - Weight - - Height - - Body Mass Index - - Plan of Treatment Health Maintenance Due Date Last Done Comments COLOGUARD (AGES 45-75) - COLON CA SCREENING 1957 CT COLONOGRAPHY - COLON CA SCREENING 1957 FIT - COLON CA SCREENING 1957 FLEX SIG - COLON CA SCREENING 1957 LIPID TESTING 1957 DTAP/TDAP/TD VACCINES (1 - Tdap) 1976 PNEUMOCOCCAL VACCINE 50+ (1 of 2 - PCV) 1976 HEPATITIS B VACCINE (1 of 3 - Risk Dialysis 4-dose series) 1977 ZOSTER VACCINE (1 of 2) 05/19/2007 COVID-19 VACCINE (2 - season) 2023 01/10/2022 DEPRESSION SCREENING 03/01/2024 MEDICARE AWV CALENDAR YEAR 2024 INFLUENZA VACCINE (#1) 2024 , 12/21/2022, 01/10/2022 Respiratory Syncytial Virus (RSV) Vaccine Pt: or over 60 yrs (1 - 1-dose 75+ series) 2032 COLON MONITORING 06/16/2032 06/16/2022 COLONOSCOPY - COLON CA SCREENING 06/16/2032 06/16/2022 Colorectal Cancer Screening 06/16/2032 HEPATITIS C SCREENING Completed 12/08/2023 , 07/26/2023, 12/11/2022, Additional history exists HIB VACCINE Aged Out No longer eligi ble based on patient's age to complete this topic HPV VACCINE Aged Out No longer eligi ble based on patient's age to complete this topic MENINGOCOCCAL (Group B) VACCINE SHARED DECISION-MAKING Aged Out No longer eligible based on patient's age to complete this topic MENINGOCOCCAL GROUPS A/C/Y/W VACCINE Aged Out No longer eligible based on patient's age to complete this topic Insurance MED[place] - [place] AETNA MEDICARE ADV
--- OUTSIDE RECORDS SUMMARY | 2024-10-06 02:50 | XMS_ITS | Clinical Summary ---
Author Organization [facility] Address [address] [place] [address] Phone Care Team Providers Care Elementary Supervisor Name Role Phone Unavailable Primary Care Provider Unavailabl e Allergies No known active allergies Medications amLODIPine (NORVASC) 5 mg tablet Take 5 mg by mouth daily. Active Active Problems Problem Noted Date Diagnosed Date Retention, urine 12/23/2023 Social History Tobacco Use Types Packs/Day Years Used Date Smoking Tobacco: Every Day Cigarettes 1 21.6 Started: 2003 Tobacco Cessation:Ready to Q uit: Not Asked; Counseling Given: Not Answered Alcohol Use Standard Drinks/Week Comments Yes 1 (1 standard drink = 0.6 oz pur e alcohol) 1 per week Sex and Gender Information Value Date Recorded Sex Assigned at Not on file Legal Sex Male 2:21 PM GLASS CUT OFF SUPERVISOR Gender Identity Not on file Sexual Orientation Not on file Last Filed Vital Signs Vital Sign Reading Time Taken Comments Blood Pressure 120/60 12/23/2023 4:43 PM CDT Pulse 75 12/23/2023 4:43 PM CDT Temperature 36.6 C (97.8 F) 12/23/2023 4:43 PM CDT Respiratory Rate 18 12/23/2023 4:43 PM CDT [...] (1 - Tdap) 1976 PNEUMOCOCCAL VACCINE 50+ YEA RS (1 of 2 - PCV) 1976 FIT-DNA Q 3 years 2002 FIT/FOBT Q 1 year 2002 Flex Sig/CT Colonography Q 5 years 2002 Lung Cancer Screening 05/19/2007 ZOSTER VACCINE (1 of 2) 05/19/2007 RSV VACCINE (60+ or ) (1 - Risk 60-74 years 1-dose series) 2017 COVID-19 Vaccine (2 - 2023-2 5 season) 2023 01/10/2022 INFLUENZA VACCINE (#1) 2024 01/10/2022 COLORECTAL SCREENING 06/16/2032 06/16/2022, 06/17/19 Colorectal Cancer Screening 06/16/2032 Abdominal Aortic Aneurysm (A AA) Screening Completed 12/08/2023, 12/07/2022, 12/04/2022, Additional history exists Medical Devices Explanted Type Area Getter Filler Device Identifier Shelf Expiration Date Model / Serial / Lot Bilateral Ureteral Stents Explanted:Qty: 2 on 12/23/2023 by Dm Burr MD at [facility] Bilateral: Ureter Insurance [facility] AETNA HMO MCR
[2024-10-06 06:00] LABS: Hematocrit 30.7 % (42.0-52.0); Hemoglobin 10.4 g/dL (14.0-18.0); Immature Granulocyte Percent A 0.6 % (0-0.5); Lymphocytes Absolute Auto 2.31 K/mm3 (0.9-3.2); Mean Corpuscular HGB Conc 33.9 g/dl (32-36); Mean Corpuscular Hemoglobin 31.9 pg (26-34); Mean Corpuscular Volume 94.2 fl (80-100); Nucleated Red Blood Cells Absolute Auto 0.000 K/mm3 (0.0-0.012); Nucleated Red Blood Cells Perc 0.0 % (0.0-0.2); Platelet Count Result 267 k/mm3 (150-375); Red Blood Count 3.26 M/mm3 (4.6-6.20); White Blood Count 11.8 K/mm3 (4.5-10.0)
--- OUTSIDE RECORDS SUMMARY | 2024-10-06 06:09 | XMS_ITS | Patient Health Record ---
Author Organization E [facility]ly [facility], [facility] Address [address] [place] [address] Care Team Providers Care Hospital Chief Executive Officer Name Role Phone [facility], [facility]. Primary Care Provider [phone] Dr. Bridgett Hernandez [facility] [phone] Allergies Allergen (clinical drug ingredient) Drug/Non Drug Allergy documented on EMR Reaction Allergy Type Onset Date Status lisinopril Lisinopril anaphylaxis Drug Allergy Act thea Reason For Referral No Information Medications Medication SIG (Take, Route, Frequency, Duration) Notes Start Date End Date Status amLODIPine Besylate 10 MG 1 tablet Orall y Once a day for 90 day(s) Active Methotrexate 2.5 MG 2 tablets Orally onc e weekly for 90 days 12/26/2019 Active Albuterol Sulfate HFA 108 (90 Base) MCG/ACT 2 puffs as needed Inhalation every 4 hrs for 90 days 11/21/2019 Active Immunizations Vaccine Route Administration Date Status Comme nts Influenza (Adult) IM Intramuscular 01/14/2016 Administered tolerated well ADH Influenza Vaccine IM Intramuscular 01/23/2020 Administered Social History Tobacco Use: Social History Observation Description Date Details (start date - stop date) Current some da y smoker NA - NA Smoking Question Answer Notes Are you a: current some day smoker Sexual History: Question Answer Notes Had sex in the past 12 months (vaginal, oral, or anal) Yes Use protection? No with Women only Sexually transmitted disease prevention strategi es discussed Condoms Have you ever had a Sexually transmitted disease ? No PTSD Screening Question Answer Notes Repeated, disturbing memorie s, thoughts, or images of the stressful experience from the past? Not at all Feeling very upset when some thing reminded you of the stressful experience from the past? Not at all Avoiding activities or situa tions because they reminded you of the stressful experience from the past? Not at all Feeling distant or cut off from other people? No t at all Feeling irritable or having angry outbursts? Not at all Having difficulty concentrating? Not at all Total Score 6 Interpretation Negative (0-13) SBIRT (2018 Edition) Question Answer Notes Patient refused/declined SBIRT screening at this time? No 1. How often do you have a drink containing alco hol? 2-3 times a week 2. How many drinks containin g alcohol do you have on a typical day when you are drinking? 1 or 2 3. How often do you have five or more drinks on one occasion? Never SCORE 3 Interpretation Negative How many times in the past y ear have you used an illegal drug or used a prescription medication for non-medical reasons? 0 Total Count 0 Interpretation Negative Section Notes: Meds and social hx verif by TRACY Burnham Meds and social hx verified by izabella Cisse CMA Problems Problem Type SNOMED Code ICD Code Onset Dates Problem Status W/U Status Risk Notes Problem Essential hypertension (79662252) Essential (primary) hypertension (I10) Active confirmed Problem 455223852 Tobacco use (Z72.0) Active confirmed Problem 68707816 Chronic obstructive pulmonary disease, unspecified COPD type (J44.9) Active confirmed Problem [id number] Rheumatoid arthritis involving both hands, unspecified rheumatoid factor presence (M06.9) Active confirmed Problem 492334095 Stage 3b chronic kidney disease (N18.32) Active confirmed Plan Of Treatment Pending Test Test Name Order Date venipuncture 05/13/2015 venipuncture 01/14/2016 venipuncture 01/11/2014 venipuncture 02/16/2014 venipuncture 11/02/2014 VENIPUNCTURE 04/25/2013 VENIPUNCTURE 04/19/2012 VENIPUNCTURE 11/14/2013 VENIPUNCTURE 06/27/2012 VENIPUNCTURE 07/11/2012 VENIPUNCTURE 10/18/2012 Insurance Providers Payer Name Payer Address Payer Phone Subscriber Number Group Number Insured Name Patient Relationship to Insured Coverage Start Date Coverage End Date [place] of [place] [employer] Attention Claims [address] [place] [id number] Niesha Ceja Self - patient is the insured 2 [employer] [address] [address] [place] [id number] Niesha Ceja Self - patient is the insured 8 Medical (General) History Medical History History ICD Code hypertension tobacco use COPD rheumatoid arthritis crush injury to the left heel CKD Stage 3b Surgical History Surgery Date(Month/Year) [place] [facility] [place] Hospitalization History Reason Date(Month/Year) car ailyn, [facility] with in juries 2013 [facility] - Pneumonia 2019
--- OUTSIDE RECORDS SUMMARY | 2024-10-06 06:09 | XMS_ITS | Clinical Summary ---
Author Organization [facility] Address [facility] [place] [address] Care Team Providers Care Sounding Device Operator Name Role Phone Castro Spain MD [...] or pharmacy Patient declines to respond 01/06/2024 [facility] Utilities Answer Date Recorded In the past 12 months has e [employer], oil, or water [employer] threatened to shut off services in your [...] any time in the past 12 m [facility], were you homeless or living in a retirement (including now)? 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 Gender Identity Not on file Sexual Orientation Not on file Last Filed Vital Signs Vital Sign Reading Time Taken Comments Blood Pressure 98/62 01/04/2024 1:10 PM MINE TECHNICIAN Pulse 82 01/04/2024 1:10 PM MINE TECHNICIAN Temperature 36.3 C (97.3 F) 01/04/2024 1:10 PM MINE TECHNICIAN Respiratory Rate 18 01/04/2024 1:10 PM MINE TECHNICIAN Oxygen Saturation 97% 01/04/2024 1:10 PM MINE TECHNICIAN Inhaled Oxygen Concentration - - Weight 63.9 [...] medications as Prescribed General No Delia Salinas, RN Health - patient able to perform ADLs independently Lifestyle No Renee Price, investment banking associate Procedure Name Priority Date/Time Associated Diagnosis Comments [...] 1:27 PM Narrative 12/12/2023 1:47 PM CDT [facility] [address] [place], [place] [address] Examination: CT of the abdomen and pelvis [...] Procedure Note Cody Duong MD - 12/12/2023 [facility] [address] [place], [place] [address] Examination: CT of the abdomen and pelvis [...] Blood. Added from external infection. Source: [facility]. 12/04/2022 Insurance [employer] AETNA Advance Directives * Full Code (Latest Code Status on File) Date Activated Date Inactivated Comments 12/15/2023 12:27 PM * Full Code Date Activated Date Inactivated Comments 12/08/2023 2:26 PM 12/14/2023 3:47 PM * Full Code Date Activated Date Inactivated Comments 03/06/2020 12:00 AM 03/07/2020 4:54 PM Care Teams Sounding Device Operator Relationship Specialty Start Date End Date Castro Spain MD PCP - General INFECTIOUS DISEASE 12/14/23
--- OUTSIDE RECORDS SUMMARY | 2024-10-06 06:09 | XMS_ITS | Clinical Summary ---
Author Organization [facility] Address [address] 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
--- OUTSIDE RECORDS SUMMARY | 2024-10-06 06:09 | XMS_ITS | Clinical Summary ---
Author Organization [facility] Address [address] [place] [address] Care Team Providers Care Development And Planning Engineer Name Role Phone Unavailable Primary Care Provider Unavailabl e Source Comments [facility],non-owned Affiliates and Associated Physician Practices is amultiple site organization consisting of ambulatory clinics and hospital sitesin [place], [place], [place] and [place]. This disclosure is being madepursuant to the Care Everywhere program and may not contain all information available regarding this patient. Last updated 17.[facility] [employer] Allergies Active Allergy Reactions Criticality Noted Date [...] topic Insurance MEDICARE MED[place] - [place] [facility] Address: [address] [address] [place] [address] AETNA MEDICARE ADV
--- NOTE | 2024-10-06 06:23 | ED.ABDPAIN ---
HPI - Abdominal Pain General Chief Complaint: Abdominal Pain Stated Complaint: constipation Time Seen by Provider: 10/06/24 05:58 Source: patient Limitations: no limitations History of Present Illness HPI narrative: Patient presents with report of generalized abdominal pain. He believes he is constipated as his last bowel movement was 2 days ago. He denies any nausea or vomiting. Has a history of end-stage renal disease on hemodialysis for the past 1 and half years. He goes to dialysis Wednesdays and Fridays and his chair time today is 11:00 a.m.. He does state that just before I came in to assess him he did have a small bowel movement base as only a little came out. He is on tramadol. No fevers but he has been feeling some chills. Denies any previous abdominal surgeries. Continues to pass flatus. Has not tried any medications including no stool softeners or laxatives. States his primary care physician is Scott but doesn't know the name of his information systems director. He does state that he makes some urine although had just gone earlier this morning before coming. Related Data Home Medications ?Medication ?Instructions ?Recorded ?Confirmed ?Last Taken ?Type acetaminophen 500 mg capsule 500 mg PO Q6H PRN pain 03/12/24 03/12/24 03/11/24 History amlodipine 10 mg tablet 10 mg PO DAILY 03/12/24 03/12/24 03/11/24 History famotidine 20 mg tablet 20 mg PO DAILY 03/12/24 03/12/24 03/11/24 History finasteride 5 mg tablet 5 mg PO DAILY 03/12/24 03/12/24 03/11/24 History glycerin (adult) 1 supp RECTAL PRN 03/12/24 03/12/24 03/11/24 History metoprolol tartrate 25 mg tablet 25 mg PO BID 03/12/24 03/12/24 03/11/24 History pantoprazole 40 mg tablet,delayed 40 mg PO DAILY 03/12/24 03/12/24 03/11/24 History release tamsulosin 0.4 mg capsule 0.4 mg PO HS 03/12/24 03/12/24 03/11/24 History tramadol 50 mg tablet 50 mg PO BID PRN pain 03/12/24 03/12/24 03/11/24 History Allergies Allergy/AdvReac Type Severity Reaction Status Date / Time ISRAEL Inhibitors Allergy Severe Unknown Verified 10/06/24 02:56 lisinopril Allergy Intermediate Itching Verified 10/06/24 02:56 oxycodone Allergy Unknown Verified 10/06/24 02:56 PMF Past Medical History Medical History Dependence on hemodialysis M/W/F GERD (gastroesophageal reflux disease) Hypertension End stage renal disease Social History Social History Smoking status: Current every day smoker Tobacco type: cigarettes Second hand tobacco smoke exposure: Yes Alcohol intake: current Drinks per week: 1 Substance use: never Substance use type: does not use Do You Feel Safe in your Home?: Yes Lack of Transportation: YES Lack of Food: Sometimes True Current Housing: I Have Housing Concerned About Future Housing: No Difficulty Paying Gas/Electric Bills: No Difficulty Paying for Meds: No Currently Unemployed: No Education: Decline to Answer Difficulty w/ Childcare or Family Care: No Spiritual care concerns: No Exam Narrative: GENERAL: Well-appearing, well-nourished, and in no acute distress. HEAD: Normocephalic, atraumatic. EYES: Non injected, non icteric ENT: Nares clear, no rhinorrhea or epistaxis. Gross auditory acuity intact. NECK: Supple. No meningismus. CHEST: Speaking in full sentences. No respiratory distress. Dialysis port in right anterior upper chest. HEART: Regular rate and rhythm. . ABDOMEN: Soft, nondistended. Tenderness palpation throughout the particularly suprapubic tenderness. No rigidity or guarding. Not peritoneal SKIN: Warm, dry, no rash. NEURO: No focal deficits. Alert and oriented. Answering questions. Following commands. Normal speech without aphasia or dysarthria. PSYCH: Normal mood and affect. Course Vital Signs Vital signs: Vital Signs Temperature 98.2 F 10/06/24 02:54 Pulse Rate 94 10/06/24 02:54 Respiratory Rate 18 10/06/24 02:54 Blood Pressure 170/85 H 10/06/24 02:54 Pulse Oximetry 99 10/06/24 02:54 Oxygen Delivery Room Air 10/06/24 02:54 Temperature 98.2 F 10/06/24 02:54 Pulse Rate 82 10/06/24 06:54 Respiratory Rate 18 10/06/24 06:54 Blood Pressure 157/84 H 10/06/24 06:54 Pulse Oximetry 100 10/06/24 06:54 Oxygen Delivery Room Air 10/06/24 02:54 MDM - Abdominal Pain MDM Narrative Medical decision making narrative: Exceedingly pleasant 69-year-old male presents with concern for constipation as he has not had a bowel movement in 2 days and is having some abdominal pain associated with this. In the emergency department he is afebrile with vital signs notable for hypertension. Mild leukocytosis and a normocytic anemia. Creatinine consistent with his known end-stage renal disease for which he is on dialysis. Notified of glucose level. Patient given an amp of D50. No history of diabetes. Mild hyponatremia, chronic. Very mild hypokalemia. Patient had noted that he felt like he needed to use the restroom but was unable to go. Bladder scan by RN revealed >580mL. Shortly thereafter, he is able to urinate however only approximately 125 mL out and immediate PVR still shows >580. For urinary retention and incomplete voiding, will place Luna. Patient's medications were reviewed and show that he is on both finasteride and tamsulosin, appears to be prescribed by his PCP Dr Cortez. Does not believe he has a urology. Glucose is normalized. Patient has evidence of urinary tract infection. First dose of antibiotic given the emergency department the rest the course as prescribed. Provided urology referral information. Differential Diagnosis Differential diagnosis: Likely abdominal pain, constipation (Possibly due to opiate therapy), small bowel obstruction and other (Urinary tract infection) Lab Data Attestation: I reviewed the patient's lab results. 10/06/24 05:42 10/06/24 05:42 Labs: Lab Results 10/06/24 10/06/24 10/06/24 Range/Units 05:42 07:57 08:09 WBC 11.8 H (4.5-10.0) K/mm3 RBC 3.26 L (4.6-6.20) M/mm3 Hgb 10.4 L (14.0-18.0) g/dL Hct 30.7 L (42.0-52.0) % MCV 94.2 (80-100) fl MCH 31.9 (26-34) pg MCHC 33.9 (32-36) g/dl RDW 15.1 H (11.5-14.5) % Plt Count 267 (150-375) k/mm3 MPV 9.6 (7.4-10.4) fl Immature Gran % (Auto) 0.6 H (0-0.5) % Neut % (Auto) 68.7 (45.5-73.1) % Lymph % (Auto) 19.5 (18.3-44.2) % [place] % (Auto) 7.8 (2.6-8.5) % Eos % (Auto) 2.7 (0-4.4) % Baso % (Auto) 0.7 (0.2-1.2) % Lymph # (Auto) 2.31 (0.9-3.2) K/mm3 [place] # (Auto) 0.9 H (0.1-0.6) K/mm3 Eos # (Auto) 0.3 (0-0.3) K/mm3 Baso # (Auto) 0.1 (0.0-0.1) K/mm3 Abs Immat Gran (auto) 0.07 H (0.00-0.031) K/mm3 Absolute Neuts (auto) 8.1 H (1.3-6.7) K/mm3 Absolute Nucleated RBC 0.000 (0.0-0.012) K/mm3 Nucleated RBC % 0.0 (0.0-0.2) % Sodium 130 L (137-145) mmol/L Potassium 3.3 L (3.4-5.0) mmol/L Chloride 92 L (98-107) mmol/L Carbon Dioxide 19 L (22-30) mmol/L Anion Gap 19 H (4-12) mmol/L BUN 20 D (9-20) mg/dL Creatinine 9.38 H (0.7-1.3) mg/dL Estim Creat Clear Calc 7 ml/min Estimated GFR 6 L (59 - ) Glucose 57 L* (65-110) mg/dL POC Capillary Glucose 94 (65-105) mg/dl Calcium 9.3 (8.4-10.2) mg/dL Total Bilirubin 0.6 (0.2-1.3) mg/dL AST 37 (17-59) U/L ALT 17 (6-50) U/L Alkaline Phosphatase 78 (38-126) U/L Total Protein 7.6 (6.3-8.2) g/dL Albumin 4.3 (3.5-5.1) g/dL Lipase 37 (23-300) U/L Urine Color Yellow (Yellow) Urine Appearance Turbid H (Clear) Urine pH 7.5 (5.0-9.0) Ur Specific [place] 1.007 (1.001-1.035) Urine Protein 3+ H (Negative) mg/dL Urine Glucose (UA) Negative (Negative) mg/dL Urine Ketones Negative (Negative) mg/dL Ur Blood (Man) 2+ H (Negative) Urine Nitrate Negative (Negative) Urine Bilirubin Negative (Negative) Urine Urobilinogen 0.2 (<2.0) mg/dL Leukocyte Esterase Rfl 3+ H (Negative) SMA/UL Urine RBC 6-10 H (0-2) /hpf Urine WBC >100 H (0-3) /hpf Ur Squamous Epith Cells None seen (Few) /hpf Urine Bacteria 4+ H /hpf Urine Casts 0-2 Imaging Data Attestation: I personally reviewed and interpreted this imaging study as follows: My impression: Significantly distended bladder on my independent interpretation of CT scan Radiologist's impression: ITS Impressions Abdomen X-Ray 10/06/24 06:00 Impression: Nonspecific bowel gas pattern. Small to moderate stool burden. Abdomen/Pelvis CT 10/06/24 07:57 Impression: Severe bilateral hydroureteronephrosis with distended urinary bladder and mild bladder wall thickening. Correlate for bladder outlet obstruction (though no obstructing mass is seen), urinary retention, or neurogenic bladder. Chronic vesicoureteral reflux could be a potential alternative consideration. Diffuse hepatic steatosis. Cholelithiasis/gallbladder sludge. Discharge Plan Discharge Clinical Impression: ESRD on hemodialysis, Normocytic anemia, Abdominal pain in male, Chronic hyponatremia, Hypokalemia, Non-diabetic hypoglycemia, Acute urinary retention, UTI (urinary tract infection), Hydroureteronephrosis, Hepatic steatosis, Cholelithiasis, Gallbladder sludge Patient Disposition: Home Condition: Stable Instructions: Antibiotic Form, Gallstones (ED), Urinary Retention in Men (ED), Urinary Tract Infection in Men (DC), Hyponatremia (ED), Luna Catheter Placement and Care (ED), Non-diabetic Hypoglycemia (ED), Hydronephrosis (ED), Anemia (ED), How to Change a Catheter Drainage Bag (DC) Additional Instructions: As we discussed, you seem to be retaining urine and this may be due to an enlarged prostate but you also have evidence of urinary tract infection and this can contribute as well. You received your 1st dose of antibiotic in the emergency department the rest of the course has been prescribed. Continue taking your tamsulosin. Follow-up with the urologist listed below for a trial of void where they remove the Luna catheter and see if you can urinate and empty your bladder. Call the office to schedule/arrange this. Keep taking all of your other medications and going to dialysis as scheduled. You can also follow up with your primary care physician Dr Cortez. Patient Language: Greek Prescriptions: New cephalexin 500 mg tablet 500 mg PO Q8H 7 Days Qty: 21 0RF No Action amlodipine 10 mg tablet 10 mg PO DAILY tramadol 50 mg tablet 50 mg PO BID PRN (Reason: pain) famotidine 20 mg tablet 20 mg PO DAILY tamsulosin 0.4 mg capsule 0.4 mg PO HS pantoprazole 40 mg tablet,delayed release (DR/EC) 40 mg PO DAILY finasteride 5 mg tablet 5 mg PO DAILY metoprolol tartrate 25 mg tablet 25 mg PO BID glycerin (adult) Suppository 1 supp RECTAL PRN acetaminophen 500 mg capsule 500 mg PO Q6H PRN (Reason: pain) cyanocobalamin (vitamin B-12) [Vitamin B-12] 250 mcg Tablet 250 mcg PO QAM Qty: 30 0RF vancomycin 125 mg capsule 125 mg PO QID Qty: 40 0RF Rx Instructions: take 125 mg 4 times per day for 10 days cyclobenzaprine 5 mg tablet 5 mg PO TID PRN (Reason: muscle spasm) Qty: 14 0RF Follow-up/Referrals: Carson Alvarez MD [Physician] - PHYSICIAN NOT ON STAFF,NONSTAFF [Primary Care Provider] - Stand Alone Forms: Work/School Release IP Time of Disposition: 08:16
[2024-10-06 07:02] LABS: Alanine Aminotransferase 17 U/L (6-50); Albumin Level 4.3 g/dL (3.5-5.1); Alkaline Phosphatase 78 U/L (38-126); Anion Gap 19 mmol/L (4-12); Aspartate Amino Transferase 37 U/L (17-59); Bilirubin,Total 0.6 mg/dL (0.2-1.3); Blood Urea Nitrogen 20 mg/dL (9-20); Calcium 9.3 mg/dL (8.4-10.2); Carbon Dioxide 19 mmol/L (22-30); Chloride 92 mmol/L (98-107); Estimated CRCL calculation 7 ml/min; Estimated Glomerular Filt Rate 6; Glucose 57 mg/dL (65-110); Lipase 37 U/L (23-300); Potassium 3.3 mmol/L (3.4-5.0); Sodium 130 mmol/L (137-145); Total Protein 7.6 g/dL (6.3-8.2)
--- NOTE | 2024-10-06 07:03 | PC.NURSE ---
vrbo 1 amp of Dextrose 50mg per [facility]
[2024-10-06] MEDS: DEXTROSE 50% 25 GM/50 ML SYRINGE IV PUSH (07:05)
[2024-10-06] MEDS: POTASSIUM BICARBONATE 25 MEQ TABEF PO (07:58)
[2024-10-06 08:17] LABS: Add Urine Microscopic? YES; Appearance Urine Turbid (Clear); Glucose Urine UA Negative (Negative); Leukocyte Esterase Ur 3+ LEU/UL (Negative); Nitrate Urine Negative (Negative); Non Pathogenic Casts 0-2; Specific Grav Ur 1.007 (1.001-1.035)
[2024-10-06] MEDS: CEPHALEXIN 500 MG CAPSULE PO (08:52)
[2024-10-06] MEDS: LIDOCAINE 2% GEL UROJET 10 ML PKG MUCOUS MEM (08:52)
== END 2024-10-06 09:32 | disposition home or self-care (01) ==
PROVIDERS: Emergency Provider Student in an Organized Health Care Education/Training Program
DX: K21.9 Gastro-esophageal reflux disease without esophagitis (principal); I12.0 Hypertensive chronic kidney disease with stage 5 chronic kidney disease or end stage renal disease; N18.6 End stage renal disease; Z99.2 Dependence on renal dialysis
CPT/HCPCS: 36415; 74018; 74177; 80053; 81001; 82948; 83690; 85025; 87086; 96374; 99284; A9270; Q9967

== ENCOUNTER 2024-11-18 22:16 | Emergency (ER) | payer MEDICARE, MEDICAID, SELFPAY ==
--- NOTE | ~2024-11-18 | XR_ITS ---
X-ray pelvis Indication: Fall, pain Comparison: CT abdomen and pelvis 10/16/2024 Technique: Frontal pelvis Findings/Impression: 1. No pelvic or hip fracture identified given single projection. 2. Severe joint space narrowing right hip with associated degenerative changes. 3. Caruso catheter. Reviewed, dictated and finalized at location R.
--- NOTE | ~2024-11-18 | CT_ITS ---
EXAMINATION: CT brain wo con DATE: 11/18/2024 23:39 INDICATION: Head injury. TECHNIQUE: Computed tomography (CT) of the head was performed without intravenous contrast. The mA was adjusted according to patient size. Iterative reconstruction technique was employed. The dose-length product was 681.00 mGy-cm. COMPARISON: Head CT 03/31/2024 FINDINGS: There are old infarcts involving the bilateral thalami, bilateral basal ganglia, and bilateral internal capsules. There are scattered areas of low attenuation in the cerebral white matter. There is no intracranial hemorrhage, acute infarction, or abnormal intracranial mass lesion. The ventricles are normal in size. There is a frontal scalp hematoma. There are old blowout fractures of the medial wall and floor of left orbit. There is mild mucosal thickening in the paranasal sinuses. The mastoid air cells are normal. IMPRESSION: 1. 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 2. Stable extensive nonspecific cerebral white matter disease, which likely represents chronic small vessel ischemic disease. Reviewed, dictated and finalized at location E. IMPRESSION: 1. 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 2. Stable extensive nonspecific cerebral white matter disease, which likely rep resents chronic small vessel ischemic disease.
--- NOTE | ~2024-11-18 | XR_ITS ---
X-rays right shoulder Indication: Fall Comparison: None Technique: 3 views right shoulder Findings/Impression: 1. No fracture or dislocation right shoulder. Reviewed, dictated and finalized at location R.
--- NOTE | ~2024-11-18 | XR_ITS ---
Examination: XR chest 1V portable Clinical History: FALL/PT STATES NO CHEST COMPLAINTS Comparison: 03/11/2024 Technique: Portable AP Findings: Right permacath. Heart size normal. Lungs clear. No acute bony abnormality. IMPRESSION: 1. No acute cardiopulmonary findings given portable technique. Reviewed, dictated and finalized at location R.
--- NOTE | ~2024-11-18 | CT_ITS ---
EXAMINATION: CT facial & cervical spine wo DATE: 11/18/2024 23:40 INDICATION: Fall. Head injury. TECHNIQUE: Computed tomography (CT) of the maxillofacial region and cervical spine was performed without intravenous contrast. Automated exposure control and iterative reconstruction technique were employed. The dose-length product was 319.33 mGy-cm. COMPARISON: Head CT 03/31/2024 FINDINGS: MAXILLOFACIAL CT: There is frontal scalp soft tissue swelling. There are old blowout fractures of medial wall and floor of left orbit. There is mild mucosal thickening in the paranasal sinuses. The mastoid air cells are normal. CERVICAL SPINE CT: There is kyphosis of cervical spine. There is 2 mm retrolisthesis of C5 on C6. Vertebral body heights are normal. There is mildly decreased disc height at C4- C5 and severely decreased disc height at C5-C6. There is multilevel facet joint osteoarthritis, severe at multiple levels. There is mild neural foraminal stenosis at multiple levels on either side. There is mild central canal stenosis at C3-C4, C4-C5, and C5-C6. IMPRESSION: 1. No acute fracture. 2. Severe cervical spondylosis. Reviewed, dictated and finalized at location E.
[2024-11-18 22:15] VITALS: BP 171/105; PULSE 72; RESP 19; TEMP 36.2; O2SAT 100
--- NOTE | 2024-11-18 22:48 | ED.FALL ---
HPI - Fall General Chief Complaint: Fall <Jeni Huddleston PA-C - Last Filed: 11/19/24 01:30> Stated Complaint: fall <Jeni Huddleston PA-C - Last Filed: 11/19/24 01:30> Time Seen by Provider: 11/18/24 22:20 <Jeni Huddleston PA-C - Last Filed: 11/19/24 01:30> Source: patient <AYLIN Dolan Last Filed: 11/19/24 01:30> Mode of arrival: EMS <AYLIN Dolan Last Filed: 11/19/24 01:30> Limitations: intoxication <AYLIN Dolan Last Filed: 11/19/24 01:30> History of Present Illness HPI Narrative: This is a 69 year old male that presents to the ER for fall with head injury. Reports he tripped and fell into a doorway. Reports contusion to the forehead, headache. Reports he did lose consciousness. He is not on anticoagulation. Reports he is up to date on tetanus vaccination. Reports bruising to the right shoulder. Denies vision changes, vomiting, focal numbness or weakness. <Jeni Huddleston PA-C - Last Filed: 11/19/24 01:30> Related Data Home Medications: Home Medications ?Medication ?Instructions ?Recorded ?Confirmed ?Last Taken ?Type acetaminophen 500 mg capsule 500 mg PO Q6H PRN pain 03/12/24 03/12/24 03/11/24 History amlodipine 10 mg tablet 10 mg PO DAILY 03/12/24 03/12/24 03/11/24 History famotidine 20 mg tablet 20 mg PO DAILY 03/12/24 03/12/24 03/11/24 History finasteride 5 mg tablet 5 mg PO DAILY 03/12/24 03/12/24 03/11/24 History glycerin (adult) 1 supp RECTAL PRN 03/12/24 03/12/24 03/11/24 History metoprolol tartrate 25 mg tablet 25 mg PO BID 03/12/24 03/12/24 03/11/24 History pantoprazole 40 mg tablet,delayed 40 mg PO DAILY 03/12/24 03/12/24 03/11/24 History release tamsulosin 0.4 mg capsule 0.4 mg PO HS 03/12/24 03/12/24 03/11/24 History tramadol 50 mg tablet 50 mg PO BID PRN pain 03/12/24 03/12/24 03/11/24 History <AYLIN Dolan Last Filed: 11/19/24 01:30> Allergies/Adverse Reactions: Allergies Allergy/AdvReac Type Severity Reaction Status Date / Time ISRAEL Inhibitors Allergy Severe Unknown Verified 10/06/24 02:56 lisinopril Allergy Intermediate Itching Verified 10/06/24 02:56 oxycodone Allergy Unknown Verified 10/06/24 02:56 <Jeni Huddleston PA-C - Last Filed: 11/19/24 01:30> Review of Systems Review of Systems: All systems reviewed & are unremarkable except as noted in HPI and below <Jeni Huddleston PA-C - Last Filed: 11/19/24 01:30> PMFSH Past Medical History Medical History: Medical History Dependence on hemodialysis M/W/F GERD (gastroesophageal reflux disease) Hypertension End stage renal disease <Jeni Huddleston PA-C - Last Filed: 11/19/24 01:30> Social History Social History: Social History Smoking status: Current every day smoker Tobacco type: cigarettes Second hand tobacco smoke exposure: Yes Alcohol intake: current Drinks per week: 1 Substance use: never Substance use type: does not use Do You Feel Safe in your Home?: Yes Lack of Transportation: YES Lack of Food: Sometimes True Current Housing: I Have Housing Concerned About Future Housing: No Difficulty Paying Gas/Electric Bills: No Difficulty Paying for Meds: No Currently Unemployed: No Education: Decline to Answer Difficulty w/ Childcare or Family Care: No Spiritual care concerns: No <AYLIN Dolan Last Filed: 11/19/24 01:30> Exam Narrative: GENERAL: Well-appearing, well-nourished, and in no acute distress. HEAD: Normocephalic. Frontal hematoma. Right parietal scalp hematoma. 2cm linear laceration into subcutaneous tissue to the right scalp EYES: PERRLA and EOMI. Visual acuity 20/70 bilaterally ENT: Nares clear, no rhinorrhea or epistaxis. Mucous membranes moist. Oropharynx without tonsillar hypertrophy exudate or other lesions. Bilateral TMs pearly lundberg non-bulging NECK: Supple. No adenopathy or masses. No carotid bruits or JVD CHEST: Clear to auscultation. No respiratory distress. No wheezes rales or rhonchi HEART: Regular rate and rhythm. No murmur heard. Normal peripheral pulses. ABDOMEN: Soft, nontender, nondistended, normal active bowel sounds. EXTREMITIES: Normal range of motion. No edema. SKIN: Warm, dry, no rash. NEURO: No focal deficits. Alert and oriented x3. PSYCH: Normal mood and affect <Jeni Huddleston PA-C - Last Filed: 11/19/24 01:30> Course Course Emergency Course: Patient updated on his workup and need for transfer <Jeni Huddleston PA-C - Last Filed: 11/19/24 01:30> OPERATIONS SUPPORT ANALYST/PA Physician Supervision This visit was performed by both a physician and an APC; I performed all aspects of the medical decision making component of this evaluation as documented. <Bianca Nuno MD - Last Filed: 11/19/24 03:20> Consultations Consultation #1: Spoke with ER Elsa Ocampo, about patient and workup who accepts patient as transfer <Jeni Huddleston PA-C - Last Filed: 11/19/24 01:30> Date: 11/19/24 <AYLIN Dolan Last Filed: 11/19/24 01:30> Vital Signs Vital signs: Vital Signs Temperature 97.1 F L 11/18/24 22:15 Pulse Rate 72 11/18/24 22:15 Respiratory Rate 19 11/18/24 22:15 Blood Pressure 171/105 H 11/18/24 22:15 Pulse Oximetry 100 11/18/24 22:15 Oxygen Delivery Room Air 11/18/24 22:15 Temperature 97.1 F L 11/18/24 22:15 Pulse Rate 85 11/19/24 01:09 Respiratory Rate 16 11/19/24 01:09 Blood Pressure 161/92 H 11/19/24 01:09 Pulse Oximetry 100 11/19/24 01:09 Oxygen Delivery Room Air 11/18/24 22:15 <AYLIN Dolan Last Filed: 11/19/24 01:30> Vital Signs Temperature 97.1 F L 11/18/24 22:15 Pulse Rate 72 11/18/24 22:15 Respiratory Rate 19 11/18/24 22:15 Blood Pressure 171/105 H 11/18/24 22:15 Pulse Oximetry 100 11/18/24 22:15 Oxygen Delivery Room Air 11/18/24 22:15 Temperature 97.1 F L 11/18/24 22:15 Pulse Rate 85 11/19/24 01:09 Respiratory Rate 16 11/19/24 01:09 Blood Pressure 161/92 H 11/19/24 01:09 Pulse Oximetry 100 11/19/24 01:09 Oxygen Delivery Room Air 11/18/24 22:15 <Bianca Nuno MD - Last Filed: 11/19/24 03:20> Procedures Laceration Laceration 1: Date: 11/19/24 <AYLIN Dolan Last Filed: 11/19/24 01:30> Time: 01:29 <AYLIN Dolan Last Filed: 11/19/24 01:30> Site: scalp <AYLIN Dolan Last Filed: 11/19/24 01:30> Side (If applicable): right <AYLIN Dolan Last Filed: 11/19/24 01:30> Size (cm): 1.5 <AYLIN Dolan Last Filed: 11/19/24 01:30> Description: linear <AYLIN Dolan Last Filed: 11/19/24 01:30> Depth: simple, single layer <AYLIN Dolan Last Filed: 11/19/24 01:30> Local Anesthetic: none <AYLIN Dolan Last Filed: 11/19/24 01:30> Pre-repair: wound explored and irrigated <AYLIN Dolan Last Filed: 11/19/24 01:30> ====== Skin Level ======: Skin layer closed with: [place] <AYLIN Dolan Last Filed: 11/19/24 01:30> Number of sutures: 2 <AYLIN Dolan Last Filed: 11/19/24 01:30> ====== Subcutaneous Layer ======: ====== Muscle Layer ======: ====== Tendon Layer ======: MDM - Fall MDM Narrative Medical decision making narrative: Patient presents to the emergency department after a fall today with head injury. No focal deficits appreciated, patient is currently intoxicated. He admits to drinking alcohol. His vitals are stable. CT brain and cervical spine without acute findings. Chest and pelvic x-rays without acute posttraumatic findings. Right shoulder x-ray without acute osseous abnormalities. Patient has a left orbital floor fracture. His EOMs do appear intact. Visual acuity is 20/70 bilaterally. Spoke with ER Elsa Ocampo, about patient and workup who accepts patient as transfer for evaluation by ophthalmology <AYLIN Dolan Last Filed: 11/19/24 01:30> Differential Diagnosis Differential diagnosis: Likely compression fracture, concussion with loss of consciousness and other (Subdural hematoma, facial bone fracture, cervical spine fracture) <Jeni Huddleston PA-C - Last Filed: 11/19/24 01:30> Imaging Data Radiologist's impression: CT brain: No acute intracranial hemorrhage. No acute transcortical infarct CT facial bones: Left inferior orbital floor fracture CT cervical spine: No acute osseous pathology Right shoulder x-ray: No acute osseous pathology Pelvic x-ray: No acute osseous pathology Chest x-ray: No acute pulmonary pathology <AYLIN Dolan Last Filed: 11/19/24 01:30> Critical Care Time Critical Care Time Critical Care Time: No <AYLIN Dolan Last Filed: 11/19/24 01:30> Discharge Plan Discharge Clinical Impression: Laceration Orbital fracture Qualifiers: Encounter type: initial encounter Fracture type: closed Qualified Code(s): S02.85XA - Fracture of orbit, unspecified, initial encounter for closed fracture Head injury Qualifiers: Encounter type: initial encounter Qualified Code(s): S09.90XA - Unspecified injury of head, initial encounter <AYLIN Dolan Last Filed: 11/19/24 01:30> Patient Disposition: Acute Care Hospital <AYLIN Dolan Last Filed: 11/19/24 01:30> Condition: Serious <AYLIN Dolan Last Filed: 11/19/24 01:30> Patient Language: Azeri <AYLIN Dolan Last Filed: 11/19/24 01:30> Prescriptions: No Action amlodipine 10 mg tablet 10 mg PO DAILY tramadol 50 mg tablet 50 mg PO BID PRN (Reason: pain) famotidine 20 mg tablet 20 mg PO DAILY tamsulosin 0.4 mg capsule 0.4 mg PO HS pantoprazole 40 mg tablet,delayed release (DR/EC) 40 mg PO DAILY finasteride 5 mg tablet 5 mg PO DAILY metoprolol tartrate 25 mg tablet 25 mg PO BID glycerin (adult) Suppository 1 supp RECTAL PRN acetaminophen 500 mg capsule 500 mg PO Q6H PRN (Reason: pain) cyanocobalamin (vitamin B-12) [Vitamin B-12] 250 mcg Tablet 250 mcg PO QAM Qty: 30 0RF vancomycin 125 mg capsule 125 mg PO QID Qty: 40 0RF Rx Instructions: take 125 mg 4 times per day for 10 days cyclobenzaprine 5 mg tablet 5 mg PO TID PRN (Reason: muscle spasm) Qty: 14 0RF cephalexin 500 mg tablet 500 mg PO Q8H 7 Days Qty: 21 0RF <Jeni Huddleston PA-C - Last Filed: 11/19/24 01:30> Follow-up/Referrals: PHYSICIAN NOT ON STAFF,NONSTAFF [Primary Care Provider] <AYLIN Dolan Last Filed: 11/19/24 01:30>
[2024-11-19 00:30] VITALS: BP 147/85; PULSE 80; RESP 15; O2SAT 100
[2024-11-19 01:09] VITALS: BP 161/92; PULSE 85; RESP 16; O2SAT 100
== END 2024-11-19 01:26 | disposition short-term general hospital (02) ==
PROVIDERS: Emergency Provider Physician Assistant
DX: S01.01XA Laceration without foreign body of scalp, initial encounter (principal); S02.32XA Fracture of orbital floor, left side, initial encounter for closed fracture; I12.0 Hypertensive chronic kidney disease with stage 5 chronic kidney disease or end stage renal disease; N18.6 End stage renal disease; Z99.2 Dependence on renal dialysis; K21.9 Gastro-esophageal reflux disease without esophagitis; F17.210 Nicotine dependence, cigarettes, uncomplicated; W01.0XXA Fall on same level from slipping, tripping and stumbling without subsequent striking against object, initial encounter; R90.82 White matter disease, unspecified; M47.812 Spondylosis without myelopathy or radiculopathy, cervical region
CPT/HCPCS: 12001; 70450; 70486; 71045; 72125; 72170; 73030; 99285

== ENCOUNTER 2024-12-10 02:14 | Emergency (ER) | payer MEDICARE, MEDICAID, SELFPAY ==
[2024-12-10 02:13] VITALS: BP 194/101; PULSE 99; RESP 20; TEMP 37.3; O2SAT 99
[2024-12-10 02:40] VITALS: BP 167/93; PULSE 95; RESP 17; O2SAT 99
--- NOTE | 2024-12-10 03:09 | ED.MALEGU ---
HPI - Male Genitourinary General Chief complaint: Urogenital-Male Stated complaint: clogged rubi Time Seen by Provider: 12/10/24 03:08 Source: patient Mode of arrival: EMS Limitations: no limitations History of Present Illness HPI Narrative: Patient is a 69-year-old male presents to the emergency department by EMS complaining of inability to urinate. Patient had a Rubi catheter placed a few weeks ago and today started noticed that there was not much of any drainage coming out of started about some suprapubic abdominal discomfort. Patient has not follow-up with urologist. Patient denies any fevers. Patient is ESRD on hemodialysis and still makes urine, getting dialysis as scheduled. Patient's he recently completed an antibiotic for UTI. Related Data Home Medications ?Medication ?Instructions ?Recorded ?Confirmed ?Last Taken ?Type acetaminophen 500 mg capsule 500 mg PO Q6H PRN pain 03/12/24 03/12/24 03/11/24 History amlodipine 10 mg tablet 10 mg PO DAILY 03/12/24 03/12/24 03/11/24 History famotidine 20 mg tablet 20 mg PO DAILY 03/12/24 03/12/24 03/11/24 History finasteride 5 mg tablet 5 mg PO DAILY 03/12/24 03/12/24 03/11/24 History glycerin (adult) 1 supp RECTAL PRN 03/12/24 03/12/24 03/11/24 History metoprolol tartrate 25 mg tablet 25 mg PO BID 03/12/24 03/12/24 03/11/24 History pantoprazole 40 mg tablet,delayed 40 mg PO DAILY 03/12/24 03/12/24 03/11/24 History release tamsulosin 0.4 mg capsule 0.4 mg PO HS 03/12/24 03/12/24 03/11/24 History tramadol 50 mg tablet 50 mg PO BID PRN pain 03/12/24 03/12/24 03/11/24 History Allergies Allergy/AdvReac Type Severity Reaction Status Date / Time [place]RA[place] Inhibitors Allergy Severe Unknown Verified 12/10/24 02:18 lisinopril Allergy Intermediate Itching Verified 12/10/24 02:18 oxycodone Allergy Unknown Verified 12/10/24 02:18 Review of Systems Review of Systems: A 10 system review of systems was completed on the patient and is negative except for what is stated in the HPI. Nursing and ancillary documentation was reviewed. [facility] Past Medical History Medical History Dependence on hemodialysis M/W/F GERD (gastroesophageal reflux disease) Hypertension End stage renal disease Social History Social History Smoking status: Current every day smoker Tobacco type: cigarettes Second hand tobacco smoke exposure: Yes Alcohol intake: current Drinks per week: 1 Substance use: never Substance use type: does not use Do You Feel Safe in your Home?: Yes Lack of Transportation: YES Lack of Food: Sometimes True Current Housing: I Have Housing Concerned About Future Housing: No Difficulty Paying Gas/Electric Bills: No Difficulty Paying for Meds: No Currently Unemployed: No Education: Decline to Answer Difficulty w/ Childcare or Family Care: No Spiritual care concerns: No Exam Narrative: CONST: Moderate distress with suprapubic discomfort. HENMT: Head is normocephalic and atraumatic. Moist mucous membranes. No posterior oropharynx erythema. EYES: No scleral icterus. No conjunctival injection or pallor. PERRL. NECK: No meningeal signs. RESP: Able to speak in full sentences. Normal respiratory effort. CTAB. CARDIO: Regular rate. 2+ DP and radial pulses bilaterally. Central venous catheter present in the right chest wall. GI: Nondistended. Mild suprapubic fullness.. Soft. : No CVA tenderness to palpation. Rubi catheter in place with cloudy purulent-appearing urine. SKIN: No rashes or lesions noted on exposed skin. NEURO: Oriented x3. Moves all extremities. EXTREM/MSK/BACK: No pedal edema. PSYCH: Normal affect. Course Vital Signs Vital signs: Vital Signs Temperature 99.2 F 12/10/24 02:13 Pulse Rate 99 12/10/24 02:13 Respiratory Rate 20 12/10/24 02:13 Blood Pressure 194/101 H 12/10/24 02:13 Pulse Oximetry 99 12/10/24 02:13 Oxygen Delivery Room Air 12/10/24 02:13 Temperature 99.2 F 12/10/24 02:13 Pulse Rate 95 12/10/24 02:40 Respiratory Rate 17 12/10/24 02:40 Blood Pressure 167/93 H 12/10/24 02:40 Pulse Oximetry 99 12/10/24 02:40 Oxygen Delivery Room Air 12/10/24 02:13 Procedures Catheter Insertion (Urinary) Urinary Catheter 1: Date of insertion: 12/10/24 Time of insertion: 02:34 Reason for placing: Yes Reason for placing indwelling catheter: Acute urinary retention Estimated amount of urine (mLs): 400 Antiseptic solution prep: Povidone-Iodine Catheter type/location: Urethral Size (Lithuanian): 16 Results: successfully catheterized-immediate flow Procedure performed: without complications MDM - Male Genitourinary MDM Narrative Medical decision making narrative: Patient presents with the above complaint. Initial vitals are remarkable for no significant abnormalities. Physical examination as noted above. Differential diagnosis includes was not limited to: Urbi catheter malfunction, UTI. Plan discussed: Bladder scan showed approximately 400 cc in the bladder, Rubi catheter was removed and patient unable to fluid removed Rubi catheter replaced and patient had marked improvement in his symptoms with good urine output however purulent in appearance, denies any current complaints at this time. Urinalysis sent. Discussed plan to have patient follow-up with urology in the next 1 week for reassessment and to establish care for further Rubi catheter management. Patient was reassessed at the bedside. No changes in physical exam. Patient is in no acute distress. The patient has remained stable throughout the entire ED visit. Counseled patient regarding diagnostic results and potential diagnosis. Anticipatory guidance provided. Patient instructed to follow up with urology in 1 week. Patient counseled on: false reassurance from an emergency department evaluation; no current evidence of a medical emergency; return immediately for any new, recurrent, worsening, concerning, or refractory symptoms. Patient prescribed keflex. Prescription sent to preferred pharmacy. Medications discussed with patient. Additional verbal and printed discharge instructions were given and discussed with the patient. Patient verbally acknowledges understanding of condition and discharge instructions. All questions were answered to the patient's satisfaction. Patient is in agreement with the plan of care. The patient is stable for discharge and was discharged without incident. Lab Data Labs: Lab Results 12/10/24 Range/Units 03:20 Urine Color Yellow (Yellow) Urine Appearance Turbid H (Clear) Urine pH 8.0 (5.0-9.0) Ur Specific [place] 1.008 (1.001-1.035) Urine Protein 3+ H (Negative) mg/dL Urine Glucose (UA) Negative (Negative) mg/dL Urine Ketones Negative (Negative) mg/dL Ur Blood (Man) 2+ H (Negative) Urine Nitrate Negative (Negative) Urine Bilirubin Negative (Negative) Urine Urobilinogen 0.2 (<2.0) mg/dL Add Ur Microanalysis Reviewed Leukocyte Esterase Rfl 3+ H (Negative) SAM/UL Urine RBC 21-50 H (0-2) /hpf Urine WBC >100 H (0-3) /hpf Urine WBC Clumps Present H (None) /HPF Ur Squamous Epith Cells Many H (Few) /hpf Urine Bacteria 4+ /hpf Urine Casts 0-2 Discharge Plan Discharge Clinical Impression: Complication of Rubi catheter Qualifiers: Encounter type: initial encounter Qualified Code(s): T83.9XXA - Unspecified complication of genitourinary prosthetic device, implant and graft, initial encounter UTI (urinary tract infection) Qualifiers: Urinary tract infection type: site unspecified Hematuria presence: with hematuria Qualified Code(s): N39.0 - Urinary tract infection, site not specified Patient Disposition: Home Condition: Stable Instructions: Antibiotic Form, Urinary Tract Infection in Men (ED), Rubi Catheter Placement and Care (ED) Additional Instructions: Follow-up with urology in the next 1 week for further management of your Rubi catheter and perform a trial of void, take the antibiotics as prescribed to completion, return immediately to the emergency department for any new or concerning symptoms especially any emergent concerns for life, limb, eyesight. Patient Language: Gibraltarian Prescriptions: New cephalexin 500 mg capsule 500 mg PO Q6H 7 Days Qty: 28 0RF No Action amlodipine 10 mg tablet 10 mg PO DAILY tramadol 50 mg tablet 50 mg PO BID PRN (Reason: pain) famotidine 20 mg tablet 20 mg PO DAILY tamsulosin 0.4 mg capsule 0.4 mg PO HS pantoprazole 40 mg tablet,delayed release (DR/EC) 40 mg PO DAILY finasteride 5 mg tablet 5 mg PO DAILY metoprolol tartrate 25 mg tablet 25 mg PO BID glycerin (adult) Suppository 1 supp RECTAL PRN acetaminophen 500 mg capsule 500 mg PO Q6H PRN (Reason: pain) cyanocobalamin (vitamin B-12) [Vitamin B-12] 250 mcg Tablet 250 mcg PO QAM Qty: 30 0RF vancomycin 125 mg capsule 125 mg PO QID Qty: 40 0RF Rx Instructions: take 125 mg 4 times per day for 10 days cyclobenzaprine 5 mg tablet 5 mg PO TID PRN (Reason: muscle spasm) Qty: 14 0RF cephalexin 500 mg tablet 500 mg PO Q8H 7 Days Qty: 21 0RF Follow-up/Referrals: Niels Washington MD [Physician, Urology] - 1 Week PHYSICIAN NOT ON STAFF,NONSTAFF [Primary Care Provider] Time of Disposition: 03:45
--- OUTSIDE RECORDS SUMMARY | 2024-12-10 03:23 | XMS_ITS | Clinical Summary ---
Author Organization [facility] Address [address] 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 Active Active Problems Problem Noted Date Diagnosed Date Retention, urine 12/23/2023 Encounters Date Type Department Care Team Description 11/07/2024 External Device Data [facility] ABSTRACTION Provider, Abstract from Last 3 Months Social History Tobacco Use Types Packs/Day Years Used Date Smoking Tobacco: Every Day Cigarettes 1 21.8 Started: 2003 Tobacco Cessation:Ready to Q uit: [...] on file Legal Sex Male 2:21 PM [employer] Gender Identity Not on file Sexual Orientation [...] years 1-dose series) 2017 INFLUENZA VACCINE (#1) 2024 01/10/2022 COVID-19 Vaccine (2 - 2024-2 6 season) 2024 01/10/2022 COLORECTAL SCREENING 06/16/2032 06/16/2022, 06/17/19 Colorectal Cancer Screening 06/16/2032 Abdominal Aortic Aneurysm (A AA) Screening Completed 12/08/2023, 12/07/2022, 12/04/2022, Additional history exists Medical Devices Explanted Type Area Computer Systems Administrator Device Identifier Shelf Expiration Date Model / Serial / Lot Bilateral Ureteral Stents Explanted:Qty: 2 on 12/23/2023 by Dm Burr MD at [facility] Bilateral: Ureter Insurance [employer] O MCR AENA O MCR [facility] Address: [facility] [address] [facility] [id number] [place] [address]
--- OUTSIDE RECORDS SUMMARY | 2024-12-10 03:23 | XMS_ITS | Clinical Summary ---
Author Organization [facility] Address [address] [place] [address] Care Team Providers Care Template Worker Name Role Phone Unavailable Primary Care Provider Unavailabl e Source Comments [facility],non-owned Affiliates and Associated Physician Practices is amultiple site organization consisting of ambulatory clinics and hospital sitesin [place], [place], [place] and [place]. This disclosure is being madepursuant to the Care Everywhere program and may not contain all information available regarding this patient. Last updated 17.[facility] [place] Allergies Active Allergy Reactions Criticality Noted Date [...] 1977 ZOSTER VACCINE (1 of 2) 05/19/2007 DEPRESSION SCREENING 03/01/2024 MEDICARE AWV CALENDAR YEAR 2024 COVID-19 VACCINE (2 - 2024- season) 2024 01/10/2022 INFLUENZA VACCINE (#1) 2024 , 12/21/2022, 01/10/2022 [...]
--- OUTSIDE RECORDS SUMMARY | 2024-12-10 03:25 | XMS_ITS ---
Author Organization [facility] aleman ([facility]) Address [address] [place] [id number] Care Team Providers Care Medicaid Collection Specialist Name Role Phone Unavailable Unavailable Unavailable Allergies, Adverse Reactions, Alerts Allergy Name Allergy Type Status Severity Reaction(s) Onset Date Inactive Date Treating Clinician Comments oxyCODONE Allergy Active Unknown 2023-04 12:14:1 9 Lisinopril Allergy Active Severe Allergy Anaphylaxis 2023-04 12:13:2 5 [place] Inhibitors Allergy Active Severe Allergy Anaphylaxis 2023-04 12:13:0 4 Medications Ordered Medication Name Filled Medication Name Start Date Stop Date Current Medication? Ordering Clinician Indication Dosage Frequency Signature (SIG) Comments Components clonidine hydrochlori de 2024-03 0-08 17:13: 54 Yes [id number] Number of Repeats Allowed: Frequency: Every 6 hours as needed Mircera 9-18 05:00: 00 Yes [id number] Number of Repeats Allowed: Frequency: PARISA dosing, every four weeks calcitriol 9-16 05:00: 00 Yes [id number] Number of Repeats Allowed: Frequency: Three times a week ondansetron hydrochlori de 1-02 20:49: 33 Yes [id number] Number of Repeats Allowed: Frequency: Every 4 hours as needed loperamide hydrochlori de 6-21 05:00: 00 Yes [id number] Number of Repeats Allowed: Frequency: Every 6 hours as needed Venofer 4-27 05:00: 00 Yes [id number] Number of Repeats Allowed: Frequency: One time a weekDosesO rdered: Maintenanc e Dose 50 Milligram Route: Intravenou s heparin sodium, porcine 3- 15:49: 10 Yes [id number] Number of Repeats Allowed: Frequency: Three times a weekDosesO rdered: Hourly Dose 500 Units/Hr 1:1000 Units/mLRo salamatof: Intravenou s heparin sodium, porcine 04-29 11:59: 02 Yes [id number] Number of Repeats Allowed: Frequency: Three times a weekDosesO rdered: Loading Dose 1800 Units 1:1000 Units/mLRo salamatof: Intravenou s heparin sodium, porcine 04-29 11:58: 25 Yes [id number] Number of Repeats Allowed: Frequency: Post-dialy sisDosesOr dered: Post CVC Instillati on 2100 Units 1:1000 Units/mLRo salamatof: Intracathe terDosesOr dered: Post CVC Instillati on 2200 Units 1:1000 Units/mLRo salamatof: Intracathe ter Oxygen 2022-03 13:10: 30 Yes [id number] Number of Repeats Allowed: Frequency: As needed Antacid Extra Strength 2022-03 13:09: 54 Yes [id number] Number of Repeats Allowed: Frequency: Every 4 hours as needed acetaminoph en 2022-03 13:08: 49 Yes [id number] Number of Repeats Allowed: Frequency: Every 4 hours as needed Problems This patient has no known problems. Procedures Procedure Date / Time Performed Performing Clinician Jael ce Details Central Venous Catheter (CVC) 2022-11-30 05:00:00 Access Site Chest (Right) Access Use Start Date 2022-12-16 00:00:0 0 DIALYSIS TREATMENT INFORMATION Conventional Hemodialysis Date Type Treatment Start Date Treatment End Date Pre-Treatment Vitals Post-Treatment Vitals Weight Gain BFR DFR Actual UF Dialysis Access Octob er 2024 In-Ce nter Hemod ialys is Treat ment 2024-12-08 T15:55:57. 000Z 2024-12-08 T19:11:47. 000Z BP Sitting (Pre-Dialysis) 203/110 mmHg BP Sitting (Post-D ialysis ) 203/ 112 mmHg Sitting Heart Rate Pre-Dialysis 80 BPM Sitting H eart Rate Post-Dialysis 78 BPM Temperature Pre-Dialysis 97.4 degF December 06, 2024 In-Center Hemodialysis Treatment 1078-30-22G14:04:20.000Z 2094-32-22P98:46:00.000Z BP Sitting (Pre-Dialysis) 183/102 mmHg BP Sitting (Post-Dialysis) 185/103 mmHg Concurrent Access: falseCentral Venous Catheter (CVC) Chest (Right) Arterial Sitting Heart Rate Pre-Dialysis 79 BPM Sitting H eart Rate Post-Dialysis 91 BPM Temperature Pre-Dialysis 97.9 degF Temperature Post -Dialysis 97.2 degF December 04, 2024 In-Center Hemodialysis Treatment 1989-17-41V09:48:32.000Z 3334-76-40G22:18:57.000Z BP Sitting (Pre-Dialysis) 183/109 mmHg BP Sitting (Post-Dialysis) 190/110 mmHg Concurrent Access: falseCentral Venous Catheter (CVC) Chest (Right) Arterial Sitting Heart Rate Pre-Dialysis 84 BPM Sitting H eart Rate Post-Dialysis 80 BPM Temperature Pre-Dialysis 97.6 degF Temperature Post -Dialysis 98.7 degF December 01, 2024 In-Center Hemodialysis Treatment 7641-86-25M51:03:26.000Z 7066-63-43R46:34:41.000Z BP Sitting (Pre-Dialysis) 162/98 mmHg BP Sitting (Post-Dialysis) 179/97 mmHg Concurrent Access: falseCentral Venous Catheter (CVC) Chest (Right) Arterial Sitting Heart Rate Pre-Dialysis 88 BPM BP Standing (Post-Dialysis) 173/92 mmHg Temperature Pre-Dialysis 98.4 degF Sitting Heart Ra te Post-Dialysis 92 BPM Standing Heart Rate Post-Sheri lysis 98 BPM Temperature Post-Dialysis 97 .6 degF November 29, 2024 In-Center Hemodialysis Treatment 2210-28-44F14:02:28.000Z 9840-08-43Q06:35:48.000Z BP Sitting (Pre-Dialysis) 169/89 mmHg BP Sitting (Post-Dialysis) 195/104 mmHg Concurrent Access: falseCentral Venous Catheter (CVC) Chest (Right) Arterial BP Standing (Pre-Dialysis) 175/96 mmHg BP Standing (P ost-Dialysis) 176/102 mmHg Sitting Heart Rate Pre-Dialysis 75 BPM Sitting Heart Rate Post-Dialysis 76 BPM Standing Heart Rate Pre-Dialysis 75 BPM Standing Heart Rate Post-Dialysis 103 BPM Temperature Pre-Dialysis 98.3 degF Temperature Post -Dialysis 97.5 degF November 27, 2024 In-Center Hemodialysis Treatment 9378-05-86Z16:52:47.000Z 5815-13-39A86:02:47.000Z BP Sitting (Pre-Dialysis) 156/88 mmHg BP Sitting (Post-Dialysis) 195/98 mmHg Concurrent Access: falseCentral Venous Catheter (CVC) Chest (Right) Arterial Sitting Heart Rate Pre-Dialysis 69 BPM Sitting H eart Rate Post-Dialysis 68 BPM Temperature Pre-Dialysis 98 degF Temperature Post -Dialysis 97.6 degF November 24, 2024 In-Center Hemodialysis Treatment 2367-25-25I57:53:03.000Z 3492-86-60E14:20:58.000Z BP Sitting (Pre-Dialysis) 169/99 mmHg BP Sitting (Post-Dialysis) 187/106 mmHg Concurrent Access: falseCentral Venous Catheter (CVC) Chest (Right) Arterial Sitting Heart Rate Pre-Dialysis 73 BPM Sitting H eart Rate Post-Dialysis 77 BPM Temperature Pre-Dialysis 97.4 degF Temperature Post -Dialysis 97.5 degF November 22, 2024 In-Center Hemodialysis Treatment 2833-62-84Q19:58:02.000Z 3920-78-76J33:29:42.000Z BP Sitting (Pre-Dialysis) 180/104 mmHg BP Sitting (Post-Dialysis) 185/101 mmHg Concurrent Access: falseCentral Venous Catheter (CVC) Chest (Right) Arterial BP Standing (Pre-Dialysis) 180/100 mmHg Sitti ng Heart Rate Post-Dialysis 72 BPM Sitting Heart Rate Pre-Dialysis 86 BPM Temperatu re Post-Dialysis 97.4 degF Standing Heart Rate Pre-Dialysis 100 BPM Temperature Pre-Dialysis 97.5 degF November 20, 2024 In-Center Hemodialysis Treatment 9972-76-65S49:01:23.000Z 3204-98-95C30:34:18.000Z BP Sitting (Pre-Dialysis) 181/101 mmHg BP Sitting (Post-Dialysis) 173/100 mmHg Concurrent Access: falseCentral Venous Catheter (CVC) Chest (Right) Arterial Sitting Heart Rate Pre-Dialysis 73 BPM Sitting H eart Rate Post-Dialysis 69 BPM Temperature Pre-Dialysis 97.5 degF Temperature Post -Dialysis 97.4 degF November 17, 2024 In-Center Hemodialysis Treatment 1532-55-58M43:07:19.000Z 3883-81-27J66:37:44.000Z BP Sitting (Pre-Dialysis) 177/103 mmHg BP Sitting (Post-Dialysis) 191/97 mmHg Concurrent Access: falseCentral Venous Catheter (CVC) Chest (Right) Arterial Sitting Heart Rate Pre-Dialysis 73 BPM BP Standing (Post-Dialysis) 158/98 mmHg Temperature Pre-Dialysis 97.9 degF Sitting Heart Ra te Post-Dialysis 72 BPM Standing Heart Rate Post-Sheri lysis 91 BPM Temperature Post-Dialysis 97 .4 degF November 15, 2024 In-Center Hemodialysis Treatment 1199-53-84I29:52:38.000Z 5197-71-15D12:19:43.000Z BP Sitting (Pre-Dialysis) 201/110 mmHg BP Sitting (Post-Dialysis) 197/107 mmHg Concurrent Access: falseCentral Venous Catheter (CVC) Chest (Right) Arterial Sitting Heart Rate Pre-Dialysis 85 BPM BP Standi ng (Post-Dialysis) 161/96 mmHg Temperature Pre-Dialysis 98 degF Sitting Heart Ra te Post-Dialysis 75 BPM Standing Heart Rate Post-Sheri lysis 95 BPM Temperature Post-Dialysis 97 .7 degF November 13, 2024 In-Center Hemodialysis Treatment 8490-59-69O41:05:00.000Z 4405-89-22E71:37:30.000Z BP Sitting (Pre-Dialysis) 188/101 mmHg BP Sitting (Post-Dialysis) 173/104 mmHg Concurrent Access: falseCentral Venous Catheter (CVC) Chest (Right) Arterial BP Standing (Pre-Dialysis) 171/99 mmHg Sitti ng Heart Rate Post-Dialysis 77 BPM Sitting Heart Rate Pre-Dialysis 77 BPM Temperatu re Post-Dialysis 97.5 degF Standing Heart Rate Pre-Dialysis 82 BPM Temperature Pre-Dialysis 96.7 degF November 10, 2024 In-Center Hemodialysis Treatment 0062-10-93V80:01:10.000Z 3985-31-62G59:32:00.000Z BP Sitting (Pre-Dialysis) 152/92 mmHg BP Sitting (Post-Dialysis) 174/100 mmHg Concurrent Access: falseCentral Venous Catheter (CVC) Chest (Right) Arterial BP Standing (Pre-Dialysis) 158/88 mmHg BP Standing (P ost-Dialysis) 170/89 mmHg Sitting Heart Rate Pre-Dialysis 77 BPM Sitting Heart Rate Post-Dialysis 80 BPM Standing Heart Rate Pre-Dialysis 77 BPM Standing Heart Rate Post-Dialysis 79 BPM Temperature Pre-Dialysis 97.7 degF Temperature Post -Dialysis 97.2 degF November 06, 2024 In-Center Hemodialysis Treatment 7246-57-88G40:00:00.000Z 6209-30-61I25:29:05.000Z BP Sitting (Pre-Dialysis) 181/100 mmHg BP Sitting (Post-Dialysis) 174/99 mmHg Concurrent Access: falseCentral Venous Catheter (CVC) Chest (Right) Arterial BP Standing (Pre-Dialysis) 176/107 mmHg Sitti ng Heart Rate Post-Dialysis 86 BPM Sitting Heart Rate Pre-Dialysis 79 BPM Temperatu re Post-Dialysis 97.9 degF Standing Heart Rate Pre-Dialysis 83 BPM Temperature Pre-Dialysis 98 degF November 03, 2024 In-Center Hemodialysis Treatment 8603-38-19Q26:53:22.000Z 6195-21-84Q16:22:57.000Z BP Sitting (Pre-Dialysis) 175/97 mmHg BP Sitting (Post-Dialysis) 196/104 mmHg Concurrent Access: falseCentral Venous Catheter (CVC) Chest (Right) Arterial BP Standing (Pre-Dialysis) 179/100 mmHg Sitti ng Heart Rate Post-Dialysis 89 BPM Sitting Heart Rate Pre-Dialysis 74 BPM Temperatu re Post-Dialysis 98.8 degF Standing Heart Rate Pre-Dialysis 83 BPM Temperature Pre-Dialysis 98 degF November 01, 2024 In-Center Hemodialysis Treatment 6561-95-95F97:01:24.000Z 2098-69-35L74:33:04.000Z BP Sitting (Pre-Dialysis) 159/91 mmHg BP Sitting (Post-Dialysis) 178/100 mmHg Concurrent Access: falseCentral Venous Catheter (CVC) Chest (Right) Arterial Sitting Heart Rate Pre-Dialysis 71 BPM Sitting H eart Rate Post-Dialysis 73 BPM Temperature Pre-Dialysis 98.3 degF Temperature Post -Dialysis 98.6 degF October 27, 2024 In-Center Hemodialysis Treatment 6428-04-21L79:54:00.000Z 3781-86-11H50:25:07.000Z BP Sitting (Pre-Dialysis) 163/84 mmHg BP Sitting (Post-Dialysis) 188/111 mmHg Concurrent Access: falseCentral Venous Catheter (CVC) Chest (Right) Arterial BP Standing (Pre-Dialysis) 181/138 mmHg BP Standing (P ost-Dialysis) 173/111 mmHg Sitting Heart Rate Pre-Dialysis 75 BPM Sitting Heart Rate Post-Dialysis 75 BPM Standing Heart Rate Pre-Dialysis 89 BPM Standing Heart Rate Post-Dialysis 95 BPM Temperature Pre-Dialysis 97.4 degF Temperature Post -Dialysis 98.4 degF October 25, 2024 In-Center Hemodialysis Treatment 1654-77-39Z38:44:26.000Z 8909-94-14N21:14:51.000Z BP Sitting (Pre-Dialysis) 170/104 mmHg BP Sitting (Post-Dialysis) 196/120 mmHg Concurrent Access: falseCentral Venous Catheter (CVC) Chest (Right) Arterial BP Standing (Pre-Dialysis) 163/104 mmHg Sitti ng Heart Rate Post-Dialysis 72 BPM Sitting Heart Rate Pre-Dialysis 77 BPM Temperatu re Post-Dialysis 97.5 degF Standing Heart Rate Pre-Dialysis 63 BPM Temperature Pre-Dialysis 97.8 degF October 23, 2024 In-Center Hemodialysis Treatment 3690-17-08I66:57:17.000Z 9531-38-16E96:32:17.000Z BP Sitting (Pre-Dialysis) 178/100 mmHg BP Sitting (Post-Dialysis) 186/108 mmHg Concurrent Access: falseCentral Venous Catheter (CVC) Chest (Right) Arterial BP Standing (Pre-Dialysis) 180/103 mmHg Sitti ng Heart Rate Post-Dialysis 74 BPM Sitting Heart Rate Pre-Dialysis 71 BPM Temperatu re Post-Dialysis 97.8 degF Standing Heart Rate Pre-Dialysis 74 BPM Temperature Pre-Dialysis 97.8 degF October 20, 2024 In-Center Hemodialysis Treatment 7854-39-98U76:49:29.000Z 1992-28-27W68:20:17.000Z BP Sitting (Pre-Dialysis) 191/96 mmHg BP Sitting (Post-Dialysis) 163/45 mmHg Concurrent Access: falseCentral Venous Catheter (CVC) Chest (Right) Arterial BP Standing (Pre-Dialysis) 175/114 mmHg BP Standing (P ost-Dialysis) 144/47 mmHg Sitting Heart Rate Pre-Dialysis 74 BPM Sitting Heart Rate Post-Dialysis 80 BPM Standing Heart Rate Pre-Dialysis 75 BPM Standing Heart Rate Post-Dialysis 69 BPM Temperature Pre-Dialysis 98 degF Temperature Post -Dialysis 97.2 degF October 18, 2024 In-Center Hemodialysis Treatment 3282-78-80B33:56:47.000Z 7652-97-01S86:27:12.000Z BP Sitting (Pre-Dialysis) 166/96 mmHg BP Sitting (Post-Dialysis) 183/101 mmHg Concurrent Access: falseCentral Venous Catheter (CVC) Chest (Right) Arterial BP Standing (Pre-Dialysis) 175/95 mmHg Sitti ng Heart Rate Post-Dialysis 71 BPM Sitting Heart Rate Pre-Dialysis 73 BPM Temperatu re Post-Dialysis 98.1 degF Standing Heart Rate Pre-Dialysis 73 BPM Temperature Pre-Dialysis 98.2 degF October 16, 2024 In-Center Hemodialysis Treatment 1145-50-97Y58:01:33.000Z 5588-19-88N76:33:13.000Z BP Sitting (Pre-Dialysis) 152/91 mmHg BP Sitting (Post-Dialysis) 180/102 mmHg Concurrent Access: falseCentral Venous Catheter (CVC) Chest (Right) Arterial Sitting Heart Rate Pre-Dialysis 70 BPM BP Standing (Post-Dialysis) 156/95 mmHg Temperature Pre-Dialysis 97.7 degF Sitting Heart Ra te Post-Dialysis 77 BPM Standing Heart Rate Post-Sheri lysis 95 BPM Temperature Post-Dialysis 97 .6 degF October 13, 2024 In-Center Hemodialysis Treatment 9359-81-67S38:01:10.000Z 0891-27-83Q89:27:25.000Z BP Sitting (Pre-Dialysis) 135/86 mmHg BP Sitting (Post-Dialysis) 156/91 mmHg Concurrent Access: falseCentral Venous Catheter (CVC) Chest (Right) Arterial BP Standing (Pre-Dialysis) 128/89 mmHg Sitti ng Heart Rate Post-Dialysis 66 BPM Sitting Heart Rate Pre-Dialysis 66 BPM Temperatu re Post-Dialysis 97.8 degF Standing Heart Rate Pre-Dialysis 83 BPM Temperature Pre-Dialysis 97.7 degF October 11, 2024 In-Center Hemodialysis Treatment 9075-18-59I42:55:23.000Z 5270-48-30E88:24:08.000Z BP Sitting (Pre-Dialysis) 157/85 mmHg BP Sitting (Post-Dialysis) 136/88 mmHg Concurrent Access: falseCentral Venous Catheter (CVC) Chest (Right) Arterial BP Standing (Pre-Dialysis) 141/53 mmHg BP Standing (P ost-Dialysis) 125/87 mmHg Sitting Heart Rate Pre-Dialysis 74 BPM Sitting Heart Rate Post-Dialysis 73 BPM Standing Heart Rate Pre-Dialysis 73 BPM Standing Heart Rate Post-Dialysis 82 BPM Temperature Pre-Dialysis 97.4 degF Temperature Post -Dialysis 97.4 degF October 09, 2024 In-Center Hemodialysis Treatment 3418-59-42S82:04:35.000Z 2958-17-99R90:41:40.000Z BP Sitting (Pre-Dialysis) 124/69 mmHg BP Sitting (Post-Dialysis) 176/110 mmHg Concurrent Access: falseCentral Venous Catheter (CVC) Chest (Right) Arterial BP Standing (Pre-Dialysis) 135/76 mmHg BP Standing (P ost-Dialysis) 164/117 mmHg Sitting Heart Rate Pre-Dialysis 71 BPM Sitting Heart Rate Post-Dialysis 72 BPM Standing Heart Rate Pre-Dialysis 87 BPM Standing Heart Rate Post-Dialysis 88 BPM Temperature Pre-Dialysis 97.4 degF Temperature Post -Dialysis 97.6 degF October 06, 2024 In-Center Hemodialysis Treatment 9182-62-01F88:56:57.000Z 4311-55-37R07:50:17.000Z BP Sitting (Pre-Dialysis) 189/115 mmHg BP Sitting (Post-Dialysis) 196/117 mmHg Concurrent Access: falseCentral Venous Catheter (CVC) Chest (Right) Arterial Sitting Heart Rate Pre-Dialysis 107 BPM BP Standing (Post-Dialysis) 194/106 mmHg Temperature Pre-Dialysis 97.2 degF Sitting Heart Ra te Post-Dialysis 82 BPM Standing Heart R ate Post-Dialysis 116 BPM Temperature Post-Dialysis 97 .6 degF October 04, 2024 In-Center Hemodialysis Treatment 6995-68-58W63:57:20.000Z 3377-17-89W56:34:50.000Z BP Sitting (Pre-Dialysis) 173/105 mmHg BP Sitting (Post-Dialysis) 200/102 mmHg Concurrent Access: falseCentral Venous Catheter (CVC) Chest (Right) Arterial Sitting Heart Rate Pre-Dialysis 80 BPM BP Standing (Post-Dialysis) 178/103 mmHg Temperature Pre-Dialysis 97.3 degF Sitting Heart Ra te Post-Dialysis 76 BPM Standing Heart R ate Post-Dialysis 106 BPM Temperature Post-Dialysis 97 .2 degF October 02, 2024 In-Center Hemodialysis Treatment 0204-14-16D73:02:04.000Z 7653-03-03T90:32:54.000Z BP Sitting (Pre-Dialysis) 167/100 mmHg BP Sitting (Post-Dialysis) 196/105 mmHg Concurrent Access: falseCentral Venous Catheter (CVC) Chest (Right) Arterial BP Standing (Pre-Dialysis) 171/101 mmHg BP Standing (P ost-Dialysis) 174/94 mmHg Sitting Heart Rate Pre-Dialysis 83 BPM Sitting Heart Rate Post-Dialysis 81 BPM Standing Heart Rate Pre-Dialysis 85 BPM Standing Heart Rate Post-Dialysis 123 BPM Temperature Pre-Dialysis 97.8 degF Temperature Post -Dialysis 97.9 degF September 29, 2024 In-Center Hemodialysis Treatment 4797-08-48J56:49:00.000Z 9032-95-54S85:23:59.000Z BP Sitting (Pre-Dialysis) 155/99 mmHg BP Sitting (Post-Dialysis) 162/106 mmHg Concurrent Access: falseCentral Venous Catheter (CVC) Chest (Right) Arterial BP Standing (Pre-Dialysis) 162/105 mmHg BP Standing (P ost-Dialysis) 169/96 mmHg Sitting Heart Rate Pre-Dialysis 74 BPM Sitting Heart Rate Post-Dialysis 73 BPM Standing Heart Rate Pre-Dialysis 75 BPM Standing Heart Rate Post-Dialysis 87 BPM Temperature Pre-Dialysis 97.5 degF Temperature Post -Dialysis 97.8 degF September 27, 2024 In-Center Hemodialysis Treatment 6152-84-25T77:01:09.000Z 5526-02-36K27:32:24.000Z BP Sitting (Pre-Dialysis) 164/98 mmHg BP Sitting (Post-Dialysis) 170/95 mmHg Concurrent Access: falseCentral Venous Catheter (CVC) Chest (Right) Arterial Sitting Heart Rate Pre-Dialysis 73 BPM BP Standing (Post-Dialysis) 153/89 mmHg Temperature Pre-Dialysis 97.9 degF Sitting Heart Ra te Post-Dialysis 68 BPM Standing Heart Rate Post-Sheri lysis 82 BPM Temperature Post-Dialysis 97 .6 degF September 25, 2024 In-Center Hemodialysis Treatment 9812-67-21Y06:01:14.000Z 2254-13-32T89:28:44.000Z BP Sitting (Pre-Dialysis) 139/80 mmHg BP Sitting (Post-Dialysis) 137/80 mmHg Concurrent Access: falseCentral Venous Catheter (CVC) Chest (Right) Arterial BP Standing (Pre-Dialysis) 142/75 mmHg BP Standing (P ost-Dialysis) 142/85 mmHg Sitting Heart Rate Pre-Dialysis 67 BPM Sitting Heart Rate Post-Dialysis 66 BPM Standing Heart Rate Pre-Dialysis 65 BPM Standing Heart Rate Post-Dialysis 86 BPM Temperature Pre-Dialysis 97.2 degF Temperature Post -Dialysis 97.2 degF September 22, 2024 In-Center Hemodialysis Treatment 2995-47-04I70:10:44.000Z 9796-89-73O25:44:54.000Z BP Sitting (Pre-Dialysis) 169/102 mmHg BP Sitting (Post-Dialysis) 178/99 mmHg Concurrent Access: falseCentral Venous Catheter (CVC) Chest (Right) Arterial BP Standing (Pre-Dialysis) 178/96 mmHg BP Standing (P ost-Dialysis) 164/89 mmHg Sitting Heart Rate Pre-Dialysis 68 BPM Sitting Heart Rate Post-Dialysis 70 BPM Standing Heart Rate Pre-Dialysis 69 BPM Standing Heart Rate Post-Dialysis 71 BPM Temperature Pre-Dialysis 97.5 degF Temperature Post -Dialysis 97.6 degF September 20, 2024 In-Center Hemodialysis Treatment 0228-24-40R23:02:49.000Z 9436-13-65U17:32:49.000Z BP Sitting (Pre-Dialysis) 145/93 mmHg BP Sitting (Post-Dialysis) 189/65 mmHg Concurrent Access: falseCentral Venous Catheter (CVC) Chest (Right) Arterial Sitting Heart Rate Pre-Dialysis 77 BPM BP Standing (Post-Dialysis) 144/81 mmHg Temperature Pre-Dialysis 97.6 degF Sitting Heart Ra te Post-Dialysis 80 BPM Standing Heart Rate Post-Sheri lysis 80 BPM Temperature Post-Dialysis 97 .2 degF September 18, 2024 In-Center Hemodialysis Treatment 8744-00-05K33:55:11.000Z 5805-85-70Q85:25:11.000Z BP Sitting (Pre-Dialysis) 166/94 mmHg BP Sitting (Post-Dialysis) 142/58 mmHg Concurrent Access: falseCentral Venous Catheter (CVC) Chest (Right) Arterial BP Standing (Pre-Dialysis) 168/82 mmHg Sitti ng Heart Rate Post-Dialysis 60 BPM Sitting Heart Rate Pre-Dialysis 78 BPM Temperatu re Post-Dialysis 97.6 degF Standing Heart Rate Pre-Dialysis 77 BPM Temperature Pre-Dialysis 97.5 degF September 15, 2024 In-Center Hemodialysis Treatment 1350-55-83V84:09:20.000Z 7115-68-72C36:36:00.000Z BP Sitting (Pre-Dialysis) 157/99 mmHg BP Sitting (Post-Dialysis) 177/100 mmHg Concurrent Access: falseCentral Venous Catheter (CVC) Chest (Right) Arterial Sitting Heart Rate Pre-Dialysis 90 BPM BP Standing (Post-Dialysis) 175/96 mmHg Temperature Pre-Dialysis 97.6 degF Sitting Heart Ra te Post-Dialysis 77 BPM Standing Heart Rate Post-Sheri lysis 91 BPM Temperature Post-Dialysis 97 .8 degF September 13, 2024 In-Center Hemodialysis Treatment 0333-79-30Q79:58:00.000Z 1161-48-36Y54:26:11.000Z BP Sitting (Pre-Dialysis) 156/101 mmHg BP Sitting (Post-Dialysis) 160/97 mmHg Concurrent Access: falseCentral Venous Catheter (CVC) Chest (Right) Arterial BP Standing (Pre-Dialysis) 168/97 mmHg Sitti ng Heart Rate Post-Dialysis 82 BPM Sitting Heart Rate Pre-Dialysis 85 BPM Temperatu re Post-Dialysis 97.5 degF Standing Heart Rate Pre-Dialysis 81 BPM Temperature Pre-Dialysis 97.5 degF September 11, 2024 In-Center Hemodialysis Treatment 2987-87-07P16:55:52.000Z 5921-56-92N25:25:52.000Z BP Sitting (Pre-Dialysis) 178/93 mmHg BP Sitting (Post-Dialysis) 195/105 mmHg Concurrent Access: falseCentral Venous Catheter (CVC) Chest (Right) Arterial Sitting Heart Rate Pre-Dialysis 68 BPM BP Standing (Post-Dialysis) 184/112 mmHg Temperature Pre-Dialysis 97.5 degF Sitting Heart Ra te Post-Dialysis 65 BPM Standing Heart R ate Post-Dialysis 85 BPM Temperature Post-Dialysis 97 .2 degF September 08, 2024 In-Center Hemodialysis Treatment 9522-88-88X22:48:05.000Z 6902-18-52J45:19:45.000Z BP Sitting (Pre-Dialysis) 181/98 mmHg BP Sitting (Post-Dialysis) 176/101 mmHg Concurrent Access: falseCentral Venous Catheter (CVC) Chest (Right) Arterial BP Standing (Pre-Dialysis) 176/101 mmHg Sitti ng Heart Rate Post-Dialysis 77 BPM Sitting Heart Rate Pre-Dialysis 73 BPM Temperatu re Post-Dialysis 97.6 degF Standing Heart Rate Pre-Dialysis 77 BPM Temperature Pre-Dialysis 96.5 degF September 06, 2024 In-Center Hemodialysis Treatment 3484-98-64R84:05:11.000Z 6716-93-05O29:38:31.000Z BP Sitting (Pre-Dialysis) 175/100 mmHg BP Sitting (Post-Dialysis) 160/96 mmHg Concurrent Access: falseCentral Venous Catheter (CVC) Chest (Right) Arterial BP Standing (Pre-Dialysis) 171/99 mmHg BP Standing (P ost-Dialysis) 189/102 mmHg Sitting Heart Rate Pre-Dialysis 78 BPM Sitting Heart Rate Post-Dialysis 76 BPM Standing Heart Rate Pre-Dialysis 75 BPM Standing Heart Rate Post-Dialysis 95 BPM Temperature Pre-Dialysis 97.2 degF Temperature Post -Dialysis 97.2 degF September 04, 2024 In-Center Hemodialysis Treatment 7777-99-51Q57:02:00.000Z 1229-84-26O57:53:42.000Z BP Sitting (Pre-Dialysis) 165/92 mmHg BP Sitting (Post-Dialysis) 164/101 mmHg Concurrent Access: falseCentral Venous Catheter (CVC) Chest (Right) Arterial BP Standing (Pre-Dialysis) 165/97 mmHg Sitti ng Heart Rate Post-Dialysis 90 BPM Sitting Heart Rate Pre-Dialysis 74 BPM Temperatu re Post-Dialysis 97.6 degF Standing Heart Rate Pre-Dialysis 76 BPM Temperature Pre-Dialysis 97.8 degF August 30, 2024 In-Center Hemodialysis Treatment 9359-31-65Q12:55:00.000Z 3113-98-34U41:28:34.000Z BP Sitting (Pre-Dialysis) 154/112 mmHg BP Sitting (Post-Dialysis) 173/101 mmHg Concurrent Access: falseCentral Venous Catheter (CVC) Chest (Right) Arterial BP Standing (Pre-Dialysis) 168/90 mmHg Sitti ng Heart Rate Post-Dialysis 77 BPM Sitting Heart Rate Pre-Dialysis 78 BPM Temperatu re Post-Dialysis 97.7 degF Standing Heart Rate Pre-Dialysis 81 BPM Temperature Pre-Dialysis 97.5 degF August 28, 2024 In-Center Hemodialysis Treatment 9101-08-98L96:58:00.000Z 4899-89-25F69:30:15.000Z BP Sitting (Pre-Dialysis) 186/98 mmHg BP Sitting (Post-Dialysis) 187/102 mmHg Concurrent Access: falseCentral Venous Catheter (CVC) Chest (Right) Arterial BP Standing (Pre-Dialysis) 169/89 mmHg Sitti ng Heart Rate Post-Dialysis 63 BPM Sitting Heart Rate Pre-Dialysis 70 BPM Temperatu re Post-Dialysis 97.6 degF Standing Heart Rate Pre-Dialysis 89 BPM Temperature Pre-Dialysis 97.8 degF August 25, 2024 In-Center Hemodialysis Treatment 3963-29-55P46:59:20.000Z 9796-18-92D46:28:55.000Z BP Sitting (Pre-Dialysis) 119/79 mmHg BP Sitting (Post-Dialysis) 158/71 mmHg Concurrent Access: falseCentral Venous Catheter (CVC) Chest (Right) Arterial BP Standing (Pre-Dialysis) 125/85 mmHg BP Standing (P ost-Dialysis) 169/69 mmHg Sitting Heart Rate Pre-Dialysis 81 BPM Sitting Heart Rate Post-Dialysis 89 BPM Standing Heart Rate Pre-Dialysis 76 BPM Standing Heart Rate Post-Dialysis 71 BPM Temperature Pre-Dialysis 97.8 degF Temperature Post -Dialysis 97.2 degF August 23, 2024 In-Center Hemodialysis Treatment [id number]:05:48.000Z [id number]:35:11.000Z BP Sitting (Pre-Dialysis) 148/90 mmHg BP Sitting (Post-Dialysis) 165/95 mmHg Concurrent Access: falseCentral Venous Catheter (CVC) Chest (Right) Arterial BP Standing (Pre-Dialysis) 148/88 mmHg BP Standing (P ost-Dialysis) 138/94 mmHg Sitting Heart Rate Pre-Dialysis 73 BPM Sitting Heart Rate Post-Dialysis 69 BPM Standing Heart Rate Pre-Dialysis 77 BPM Standing Heart Rate Post-Dialysis 96 BPM Temperature Pre-Dialysis 98.2 degF Temperature Post -Dialysis 97.8 degF August 21, 2024 In-Center Hemodialysis Treatment 9905-79-10W62:58:49.000Z [id number]:28:49.000Z BP Sitting (Pre-Dialysis) 140/89 mmHg BP Sitting (Post-Dialysis) 167/88 mmHg Concurrent Access: falseCentral Venous Catheter (CVC) Chest (Right) Arterial BP Standing (Pre-Dialysis) 147/82 mmHg Sitti ng Heart Rate Post-Dialysis 71 BPM Sitting Heart Rate Pre-Dialysis 86 BPM Temperatu re Post-Dialysis 97.6 degF Standing Heart Rate Pre-Dialysis 85 BPM Temperature Pre-Dialysis 97.8 degF August 18, 2024 In-Center Hemodialysis Treatment [id number]:11:52.000Z [id number]:40:34.000Z BP Sitting (Pre-Dialysis) 148/94 mmHg BP Sitting (Post-Dialysis) 140/92 mmHg Concurrent Access: falseCentral Venous Catheter (CVC) Chest (Right) Arterial BP Standing (Pre-Dialysis) 161/98 mmHg BP Standing (P ost-Dialysis) 137/89 mmHg Sitting Heart Rate Pre-Dialysis 71 BPM Sitting Heart Rate Post-Dialysis 80 BPM Standing Heart Rate Pre-Dialysis 75 BPM Standing Heart Rate Post-Dialysis 70 BPM Temperature Pre-Dialysis 97.6 degF Temperature Post -Dialysis 97.2 degF August 16, 2024 In-Center Hemodialysis Treatment [id number]:00:34.000Z 6977-52-38B32:31:24.000Z BP Sitting (Pre-Dialysis) 167/91 mmHg BP Sitting (Post-Dialysis) 171/93 mmHg Concurrent Access: falseCentral Venous Catheter (CVC) Chest (Right) Arterial BP Standing (Pre-Dialysis) 158/95 mmHg Sitti ng Heart Rate Post-Dialysis 78 BPM Sitting Heart Rate Pre-Dialysis 86 BPM Temperatu re Post-Dialysis 97.8 degF Standing Heart Rate Pre-Dialysis 82 BPM Temperature Pre-Dialysis 97.3 degF August 14, 2024 In-Center Hemodialysis Treatment [id number]:09:56.000Z 0432-71-58P49:45:46.000Z BP Sitting (Pre-Dialysis) 174/97 mmHg BP Sitting (Post-Dialysis) 156/96 mmHg Concurrent Access: falseCentral Venous Catheter (CVC) Chest (Right) Arterial Sitting Heart Rate Pre-Dialysis 83 BPM Sitting H eart Rate Post-Dialysis 81 BPM Temperature Pre-Dialysis 97.5 degF Temperature Post -Dialysis 97.8 degF August 11, 2024 In-Center Hemodialysis Treatment [id number]:51:21.000Z [id number]:17:36.000Z BP Sitting (Pre-Dialysis) 151/98 mmHg BP Sitting (Post-Dialysis) 142/85 mmHg Concurrent Access: falseCentral Venous Catheter (CVC) Chest (Right) Arterial BP Standing (Pre-Dialysis) 147/89 mmHg BP Standing (P ost-Dialysis) 144/83 mmHg Sitting Heart Rate Pre-Dialysis 83 BPM Sitting Heart Rate Post-Dialysis 69 BPM Standing Heart Rate Pre-Dialysis 85 BPM Standing Heart Rate Post-Dialysis 96 BPM Temperature Pre-Dialysis 97.2 degF Temperature Post -Dialysis 97 degF August 09, 2024 In-Center Hemodialysis Treatment [id number]:56:48.000Z 7659-03-74H81:21:48.000Z BP Sitting (Pre-Dialysis) 140/81 mmHg BP Sitting (Post-Dialysis) 150/88 mmHg Concurrent Access: falseCentral Venous Catheter (CVC) Chest (Right) Arterial Sitting Heart Rate Pre-Dialysis 82 BPM Sitting H eart Rate Post-Dialysis 92 BPM Temperature Pre-Dialysis 97.2 degF Temperature Post -Dialysis 98.2 degF August 07, 2024 In-Center Hemodialysis Treatment [id number]:04:47.000Z 2979-93-68Y46:35:37.000Z BP Sitting (Pre-Dialysis) 158/85 mmHg BP Sitting (Post-Dialysis) 141/89 mmHg Concurrent Access: falseCentral Venous Catheter (CVC) Chest (Right) Arterial BP Standing (Pre-Dialysis) 154/97 mmHg Sitti ng Heart Rate Post-Dialysis 80 BPM Sitting Heart Rate Pre-Dialysis 74 BPM Temperatu re Post-Dialysis 97.8 degF Standing Heart Rate Pre-Dialysis 71 BPM Temperature Pre-Dialysis 97.3 degF August 04, 2024 In-Center Hemodialysis Treatment 7538-35-06I14:54:41.000Z 2951-67-78Y62:24:20.000Z BP Sitting (Pre-Dialysis) 148/89 mmHg BP Sitting (Post-Dialysis) 142/83 mmHg Concurrent Access: falseCentral Venous Catheter (CVC) Chest (Right) Arterial Sitting Heart Rate Pre-Dialysis 81 BPM Sitting H eart Rate Post-Dialysis 81 BPM Temperature Pre-Dialysis 97.2 degF Temperature Post -Dialysis 97.8 degF August 02, 2024 In-Center Hemodialysis Treatment 2859-69-59C48:56:47.000Z [id number]:23:47.000Z BP Sitting (Pre-Dialysis) 187/87 mmHg BP Sitting (Post-Dialysis) 155/99 mmHg Concurrent Access: falseCentral Venous Catheter (CVC) Chest (Right) Arterial Sitting Heart Rate Pre-Dialysis 93 BPM BP Standing (Post-Dialysis) 159/89 mmHg Temperature Pre-Dialysis 97.8 degF Sitting Heart Ra te Post-Dialysis 100 BPM Standing Heart Rate Post-Sheri lysis 99 BPM Temperature Post-Dialysis 97 degF July 31, 2024 In-Center Hemodialysis Treatment 2112-54-46E64:00:00.000Z 9158-00-41P54:33:52.000Z BP Sitting (Pre-Dialysis) 151/82 mmHg BP Sitting (Post-Dialysis) 174/93 mmHg Concurrent Access: falseCentral Venous Catheter (CVC) Chest (Right) Arterial Sitting Heart Rate Pre-Dialysis 74 BPM BP Standing (Post-Dialysis) 173/88 mmHg Temperature Pre-Dialysis 97.8 degF Sitting Heart Ra te Post-Dialysis 82 BPM Standing Heart Rate Post-Sheri lysis 99 BPM Temperature Post-Dialysis 97 .6 degF July 28, 2024 In-Center Hemodialysis Treatment [id number]:12:04.000Z 3917-05-70S61:41:14.000Z BP Sitting (Pre-Dialysis) 143/89 mmHg BP Sitting (Post-Dialysis) 136/92 mmHg Concurrent Access: falseCentral Venous Catheter (CVC) Chest (Right) Arterial BP Standing (Pre-Dialysis) 161/83 mmHg BP Standing (P ost-Dialysis) 175/90 mmHg Sitting Heart Rate Pre-Dialysis 73 BPM Sitting Heart Rate Post-Dialysis 80 BPM Standing Heart Rate Pre-Dialysis 71 BPM Standing Heart Rate Post-Dialysis 79 BPM Temperature Pre-Dialysis 97.6 degF Temperature Post -Dialysis 97.2 degF July 26, 2024 In-Center Hemodialysis Treatment [id number]:00:44.000Z 4904-31-56M96:31:34.000Z BP Sitting (Pre-Dialysis) 169/91 mmHg BP Sitting (Post-Dialysis) 187/95 mmHg Concurrent Access: falseCentral Venous Catheter (CVC) Chest (Right) Arterial BP Standing (Pre-Dialysis) 176/96 mmHg BP Standing (P ost-Dialysis) 168/87 mmHg Sitting Heart Rate Pre-Dialysis 69 BPM Sitting Heart Rate Post-Dialysis 71 BPM Standing Heart Rate Pre-Dialysis 70 BPM Standing Heart Rate Post-Dialysis 85 BPM Temperature Pre-Dialysis 97.3 degF Temperature Post -Dialysis 97.8 degF July 21, 2024 In-Center Hemodialysis Treatment 2688-63-30Q54:04:00.000Z 1327-75-78P79:40:54.000Z BP Sitting (Pre-Dialysis) 181/115 mmHg BP Sitting (Post-Dialysis) 173/70 mmHg Concurrent Access: falseCentral Venous Catheter (CVC) Chest (Right) Arterial Sitting Heart Rate Pre-Dialysis 83 BPM BP Standing (Post-Dialysis) 159/99 mmHg Temperature Pre-Dialysis 97.8 degF Sitting Heart Ra te Post-Dialysis 53 BPM Standing Heart Rate Post-Sheri lysis 92 BPM Temperature Post-Dialysis 97 .8 degF July 19, 2024 In-Center Hemodialysis Treatment [id number]:00:02.000Z 3472-29-24N88:34:03.000Z BP Sitting (Pre-Dialysis) 180/98 mmHg BP Sitting (Post-Dialysis) 199/69 mmHg Concurrent Access: falseCentral Venous Catheter (CVC) Chest (Right) Arterial Sitting Heart Rate Pre-Dialysis 74 BPM Sitting H eart Rate Post-Dialysis 58 BPM Temperature Pre-Dialysis 97.8 degF Temperature Post -Dialysis 97.2 degF July 17, 2024 In-Center Hemodialysis Treatment 9971-71-84P80:04:32.000Z [id number]:32:02.000Z BP Sitting (Pre-Dialysis) 156/86 mmHg BP Sitting (Post-Dialysis) 179/101 mmHg Concurrent Access: falseCentral Venous Catheter (CVC) Chest (Right) Arterial BP Standing (Pre-Dialysis) 148/72 mmHg BP Standing (P ost-Dialysis) 176/108 mmHg Sitting Heart Rate Pre-Dialysis 76 BPM Sitting Heart Rate Post-Dialysis 77 BPM Standing Heart Rate Pre-Dialysis 68 BPM Standing Heart Rate Post-Dialysis 100 BPM Temperature Pre-Dialysis 96.8 degF Temperature Post -Dialysis 97.9 degF July 14, 2024 In-Center Hemodialysis Treatment 3527-73-18Q60:50:22.000Z 4340-25-50W31:19:32.000Z BP Sitting (Pre-Dialysis) 172/97 mmHg BP Sitting (Post-Dialysis) 173/92 mmHg Concurrent Access: falseCentral Venous Catheter (CVC) Chest (Right) Arterial BP Standing (Pre-Dialysis) 174/102 mmHg BP Standing (P ost-Dialysis) 157/107 mmHg Sitting Heart Rate Pre-Dialysis 81 BPM Sitting Heart Rate Post-Dialysis 73 BPM Standing Heart Rate Pre-Dialysis 91 BPM Standing Heart Rate Post-Dialysis 107 BPM Temperature Pre-Dialysis 97.8 degF Temperature Post -Dialysis 97.6 degF July 12, 2024 In-Center Hemodialysis Treatment 1672-74-51I08:03:47.000Z 3242-93-09P70:40:52.000Z BP Sitting (Pre-Dialysis) 150/66 mmHg BP Sitting (Post-Dialysis) 185/96 mmHg Concurrent Access: falseCentral Venous Catheter (CVC) Chest (Right) Arterial Sitting Heart Rate Pre-Dialysis 74 BPM BP Standi ng (Post-Dialysis) 181/87 mmHg Temperature Pre-Dialysis 97 degF Sitting Heart Ra te Post-Dialysis 76 BPM Standing Heart Rate Post-Sheri lysis 95 BPM Temperature Post-Dialysis 97 .8 degF July 07, 2024 In-Center Hemodialysis Treatment 6568-54-40P81:08:37.000Z 9555-15-25X29:40:42.000Z BP Sitting (Pre-Dialysis) 159/98 mmHg BP Sitting (Post-Dialysis) 193/105 mmHg Concurrent Access: falseCentral Venous Catheter (CVC) Chest (Right) Arterial Sitting Heart Rate Pre-Dialysis 73 BPM Sitting H eart Rate Post-Dialysis 77 BPM Temperature Pre-Dialysis 97.6 degF Temperature Post -Dialysis 98 degF July 05, 2024 In-Center Hemodialysis Treatment 4111-39-77K09:49:52.000Z 1568-47-02C22:20:42.000Z BP Sitting (Pre-Dialysis) 163/94 mmHg BP Sitting (Post-Dialysis) 181/100 mmHg Concurrent Access: falseCentral Venous Catheter (CVC) Chest (Right) Arterial BP Standing (Pre-Dialysis) 165/99 mmHg Sitti ng Heart Rate Post-Dialysis 75 BPM Sitting Heart Rate Pre-Dialysis 77 BPM Temperatu re Post-Dialysis 98.4 degF Standing Heart Rate Pre-Dialysis 82 BPM Temperature Pre-Dialysis 97.4 degF July 03, 2024 In-Center Hemodialysis Treatment 8035-49-44V94:19:04.000Z 9911-73-40E05:48:14.000Z BP Sitting (Pre-Dialysis) 172/85 mmHg BP Sitting (Post-Dialysis) 172/101 mmHg Concurrent Access: falseCentral Venous Catheter (CVC) Chest (Right) Arterial BP Standing (Pre-Dialysis) 168/72 mmHg Sitti ng Heart Rate Post-Dialysis 80 BPM Sitting Heart Rate Pre-Dialysis 70 BPM Temperatu re Post-Dialysis 98.6 degF Standing Heart Rate Pre-Dialysis 68 BPM Temperature Pre-Dialysis 96.1 degF June 28, 2024 In-Center Hemodialysis Treatment 8662-24-35B07:05:00.000Z 0679-14-86K47:35:50.000Z BP Sitting (Pre-Dialysis) 181/110 mmHg BP Sitting (Post-Dialysis) 179/89 mmHg Concurrent Access: falseCentral Venous Catheter (CVC) Chest (Right) Arterial BP Standing (Pre-Dialysis) 170/105 mmHg BP Standing (P ost-Dialysis) 169/94 mmHg Sitting Heart Rate Pre-Dialysis 79 BPM Sitting Heart Rate Post-Dialysis 79 BPM Standing Heart Rate Pre-Dialysis 82 BPM Standing Heart Rate Post-Dialysis 96 BPM Temperature Pre-Dialysis 98.1 degF Temperature Post -Dialysis 97.8 degF June 26, 2024 In-Center Hemodialysis Treatment 8942-82-49P62:05:29.000Z 6772-72-99H92:36:44.000Z BP Sitting (Pre-Dialysis) 181/93 mmHg BP Sitting (Post-Dialysis) 178/99 mmHg Concurrent Access: falseCentral Venous Catheter (CVC) Chest (Right) Arterial Sitting Heart Rate Pre-Dialysis 69 BPM BP Standing (Post-Dialysis) 146/87 mmHg Temperature Pre-Dialysis 96.3 degF Sitting Heart Ra te Post-Dialysis 62 BPM Standing Heart Rate Post-Sheri lysis 65 BPM Temperature Post-Dialysis 97 .2 degF June 23, 2024 In-Center Hemodialysis Treatment 4452-10-94K15:03:00.000Z 2248-39-60V98:35:25.000Z BP Sitting (Pre-Dialysis) 141/75 mmHg BP Sitting (Post-Dialysis) 155/94 mmHg Concurrent Access: falseCentral Venous Catheter (CVC) Chest (Right) Arterial BP Standing (Pre-Dialysis) 143/82 mmHg BP Standing (P ost-Dialysis) 157/89 mmHg Sitting Heart Rate Pre-Dialysis 63 BPM Sitting Heart Rate Post-Dialysis 79 BPM Standing Heart Rate Pre-Dialysis 85 BPM Standing Heart Rate Post-Dialysis 90 BPM Temperature Pre-Dialysis 97.9 degF Temperature Post -Dialysis 97.8 degF June 21, 2024 In-Center Hemodialysis Treatment 8059-42-26U33:23:00.000Z 9491-39-20I04:44:23.000Z BP Sitting (Pre-Dialysis) 164/87 mmHg BP Sitting (Post-Dialysis) 171/81 mmHg Concurrent Access: falseCentral Venous Catheter (CVC) Chest (Right) Arterial BP Standing (Pre-Dialysis) 153/100 mmHg BP Standing (P ost-Dialysis) 131/60 mmHg Sitting Heart Rate Pre-Dialysis 74 BPM Sitting Heart Rate Post-Dialysis 73 BPM Standing Heart Rate Pre-Dialysis 77 BPM Standing Heart Rate Post-Dialysis 70 BPM Temperature Pre-Dialysis 97.7 degF Temperature Post -Dialysis 97.8 degF June 19, 2024 In-Center Hemodialysis Treatment 4463-60-12J53:08:00.000Z 7170-77-40X03:35:48.000Z BP Sitting (Pre-Dialysis) 149/93 mmHg BP Sitting (Post-Dialysis) 150/89 mmHg Concurrent Access: falseCentral Venous Catheter (CVC) Chest (Right) Arterial BP Standing (Pre-Dialysis) 156/91 mmHg BP Standing (P ost-Dialysis) 145/92 mmHg Sitting Heart Rate Pre-Dialysis 68 BPM Sitting Heart Rate Post-Dialysis 51 BPM Standing Heart Rate Pre-Dialysis 66 BPM Standing Heart Rate Post-Dialysis 62 BPM Temperature Pre-Dialysis 97.2 degF Temperature Post -Dialysis 97.2 degF June 16, 2024 In-Center Hemodialysis Treatment 1106-19-52O18:01:00.000Z 9218-13-25E20:33:42.000Z BP Sitting (Pre-Dialysis) 150/86 mmHg BP Sitting (Post-Dialysis) 166/87 mmHg Concurrent Access: falseCentral Venous Catheter (CVC) Chest (Right) Arterial BP Standing (Pre-Dialysis) 161/88 mmHg BP Standing (P ost-Dialysis) 146/83 mmHg Sitting Heart Rate Pre-Dialysis 77 BPM Sitting Heart Rate Post-Dialysis 78 BPM Standing Heart Rate Pre-Dialysis 83 BPM Standing Heart Rate Post-Dialysis 88 BPM Temperature Pre-Dialysis 97.6 degF Temperature Post -Dialysis 97.5 degF June 14, 2024 In-Center Hemodialysis Treatment 4815-53-30A07:45:00.000Z 8849-78-09N79:18:36.000Z BP Sitting (Pre-Dialysis) 163/77 mmHg BP Sitting (Post-Dialysis) 181/97 mmHg Concurrent Access: falseCentral Venous Catheter (CVC) Chest (Right) Arterial BP Standing (Pre-Dialysis) 160/67 mmHg BP Standing (P ost-Dialysis) 152/94 mmHg Sitting Heart Rate Pre-Dialysis 81 BPM Sitting Heart Rate Post-Dialysis 76 BPM Standing Heart Rate Pre-Dialysis 86 BPM Standing Heart Rate Post-Dialysis 74 BPM Temperature Pre-Dialysis 97.6 degF Temperature Post -Dialysis 97.3 degF June 12, 2024 In-Center Hemodialysis Treatment 5303-16-58E38:59:28.000Z 4444-22-94Q92:29:53.000Z BP Sitting (Pre-Dialysis) 152/86 mmHg BP Sitting (Post-Dialysis) 198/79 mmHg Concurrent Access: falseCentral Venous Catheter (CVC) Chest (Right) Arterial Sitting Heart Rate Pre-Dialysis 73 BPM BP Standing (Post-Dialysis) 200/93 mmHg Temperature Pre-Dialysis 98.2 degF Sitting Heart Ra te Post-Dialysis 90 BPM Standing Heart Rate Post-Sheri lysis 80 BPM Temperature Post-Dialysis 97 .2 degF June 07, 2024 In-Center Hemodialysis Treatment 1133-40-90J22:57:10.000Z 9741-67-34B97:27:35.000Z BP Sitting (Pre-Dialysis) 139/89 mmHg BP Sitting (Post-Dialysis) 150/88 mmHg Concurrent Access: falseCentral Venous Catheter (CVC) Chest (Right) Arterial BP Standing (Pre-Dialysis) 128/79 mmHg BP Standing (P ost-Dialysis) 156/89 mmHg Sitting Heart Rate Pre-Dialysis 63 BPM Sitting Heart Rate Post-Dialysis 76 BPM Standing Heart Rate Pre-Dialysis 79 BPM Standing Heart Rate Post-Dialysis 78 BPM Temperature Pre-Dialysis 97.8 degF Temperature Post -Dialysis 97.6 degF June 05, 2024 In-Center Hemodialysis Treatment 2388-03-59Q67:21:24.000Z 2626-91-49L18:53:04.000Z BP Sitting (Pre-Dialysis) 140/81 mmHg BP Sitting (Post-Dialysis) 145/94 mmHg Concurrent Access: falseCentral Venous Catheter (CVC) Chest (Right) Arterial BP Standing (Pre-Dialysis) 134/83 mmHg BP Standing (P ost-Dialysis) 121/73 mmHg Sitting Heart Rate Pre-Dialysis 63 BPM Sitting Heart Rate Post-Dialysis 74 BPM Standing Heart Rate Pre-Dialysis 68 BPM Standing Heart Rate Post-Dialysis 92 BPM Temperature Pre-Dialysis 97.2 degF Temperature Post -Dialysis 97.6 degF June 02, 2024 In-Center Hemodialysis Treatment 3427-62-76E83:12:56.000Z 8613-25-25E75:42:56.000Z BP Sitting (Pre-Dialysis) 145/91 mmHg BP Sitting (Post-Dialysis) 167/98 mmHg Concurrent Access: falseCentral Venous Catheter (CVC) Chest (Right) Arterial BP Standing (Pre-Dialysis) 132/91 mmHg BP Standing (P ost-Dialysis) 173/101 mmHg Sitting Heart Rate Pre-Dialysis 71 BPM Sitting Heart Rate Post-Dialysis 78 BPM Standing Heart Rate Pre-Dialysis 73 BPM Standing Heart Rate Post-Dialysis 79 BPM Temperature Pre-Dialysis 97.7 degF Temperature Post -Dialysis 97.8 degF May 31, 2024 In-Center Hemodialysis Treatment [id number]:56:34.000Z 9078-62-29K51:29:04.000Z BP Sitting (Pre-Dialysis) 146/94 mmHg BP Sitting (Post-Dialysis) 168/99 mmHg Concurrent Access: falseCentral Venous Catheter (CVC) Chest (Right) Arterial Sitting Heart Rate Pre-Dialysis 81 BPM BP Standing (Post-Dialysis) 155/116 mmHg Temperature Pre-Dialysis 98.2 degF Sitting Heart Ra te Post-Dialysis 69 BPM Standing Heart R ate Post-Dialysis 107 BPM Temperature Post-Dialysis 97 .3 degF May 29, 2024 In-Center Hemodialysis Treatment 1746-24-73L27:00:22.000Z 2884-64-82H28:30:47.000Z BP Sitting (Pre-Dialysis) 150/92 mmHg BP Sitting (Post-Dialysis) 182/97 mmHg Concurrent Access: falseCentral Venous Catheter (CVC) Chest (Right) Arterial Sitting Heart Rate Pre-Dialysis 74 BPM BP Standing (Post-Dialysis) 160/87 mmHg Temperature Pre-Dialysis 97.2 degF Sitting Heart Ra te Post-Dialysis 71 BPM Standing Heart Rate Post-Sheri lysis 83 BPM Temperature Post-Dialysis 97 .6 degF May 26, 2024 In-Center Hemodialysis Treatment 0133-34-71L99:02:28.000Z 1882-60-49S03:31:38.000Z BP Sitting (Pre-Dialysis) 117/68 mmHg BP Sitting (Post-Dialysis) 139/86 mmHg Concurrent Access: falseCentral Venous Catheter (CVC) Chest (Right) Arterial BP Standing (Pre-Dialysis) 124/69 mmHg BP Standing (P ost-Dialysis) 124/83 mmHg Sitting Heart Rate Pre-Dialysis 75 BPM Sitting Heart Rate Post-Dialysis 80 BPM Standing Heart Rate Pre-Dialysis 78 BPM Standing Heart Rate Post-Dialysis 87 BPM Temperature Pre-Dialysis 97.2 degF Temperature Post -Dialysis 97.7 degF May 24, 2024 In-Center Hemodialysis Treatment 8184-78-65H77:09:00.000Z 7340-27-11X09:43:17.000Z BP Sitting (Pre-Dialysis) 143/87 mmHg BP Sitting (Post-Dialysis) 132/78 mmHg Concurrent Access: falseCentral Venous Catheter (CVC) Chest (Right) Arterial BP Standing (Pre-Dialysis) 142/83 mmHg BP Standing (P ost-Dialysis) 117/66 mmHg Sitting Heart Rate Pre-Dialysis 66 BPM Sitting Heart Rate Post-Dialysis 75 BPM Standing Heart Rate Pre-Dialysis 66 BPM Standing Heart Rate Post-Dialysis 89 BPM Temperature Pre-Dialysis 97.5 degF Temperature Post -Dialysis 97.6 degF May 22, 2024 In-Center Hemodialysis Treatment 5301-28-06L89:57:02.000Z 9980-22-24Y98:28:42.000Z BP Sitting (Pre-Dialysis) 134/76 mmHg BP Sitting (Post-Dialysis) 162/69 mmHg Concurrent Access: falseCentral Venous Catheter (CVC) Chest (Right) Arterial BP Standing (Pre-Dialysis) 130/80 mmHg BP Standing (P ost-Dialysis) 165/68 mmHg Sitting Heart Rate Pre-Dialysis 72 BPM Sitting Heart Rate Post-Dialysis 59 BPM Standing Heart Rate Pre-Dialysis 79 BPM Standing Heart Rate Post-Dialysis 89 BPM Temperature Pre-Dialysis 98.3 degF Temperature Post -Dialysis 97.7 degF May 19, 2024 In-Center Hemodialysis Treatment [id number]:58:32.000Z 7134-85-67X93:59:47.000Z BP Sitting (Pre-Dialysis) 135/85 mmHg BP Sitting (Post-Dialysis) 119/79 mmHg Concurrent Access: falseCentral Venous Catheter (CVC) Chest (Right) Arterial BP Standing (Pre-Dialysis) 138/86 mmHg Sitti ng Heart Rate Post-Dialysis 66 BPM Sitting Heart Rate Pre-Dialysis 82 BPM Temperatu re Post-Dialysis 97.3 degF Standing Heart Rate Pre-Dialysis 86 BPM Temperature Pre-Dialysis 97.2 degF May 17, 2024 In-Center Hemodialysis Treatment 8934-21-74P50:10:12.000Z 5095-24-58I69:41:52.000Z BP Sitting (Pre-Dialysis) 156/86 mmHg BP Sitting (Post-Dialysis) 159/94 mmHg Concurrent Access: falseCentral Venous Catheter (CVC) Chest (Right) Arterial Sitting Heart Rate Pre-Dialysis 76 BPM Sitting H eart Rate Post-Dialysis 55 BPM Temperature Pre-Dialysis 97.3 degF Temperature Post -Dialysis 97.8 degF May 15, 2024 In-Center Hemodialysis Treatment 1991-04-48D68:19:57.000Z 7559-43-17G89:49:32.000Z BP Sitting (Pre-Dialysis) 147/88 mmHg BP Sitting (Post-Dialysis) 169/73 mmHg Concurrent Access: falseCentral Venous Catheter (CVC) Chest (Right) Arterial BP Standing (Pre-Dialysis) 153/88 mmHg BP Standing (P ost-Dialysis) 156/67 mmHg Sitting Heart Rate Pre-Dialysis 70 BPM Sitting Heart Rate Post-Dialysis 53 BPM Standing Heart Rate Pre-Dialysis 73 BPM Standing Heart Rate Post-Dialysis 77 BPM Temperature Pre-Dialysis 98.1 degF Temperature Post -Dialysis 97.9 degF May 12, 2024 In-Center Hemodialysis Treatment 9545-42-22Y51:12:03.000Z 5005-67-06F05:38:48.000Z BP Sitting (Pre-Dialysis) 120/62 mmHg BP Sitting (Post-Dialysis) 168/106 mmHg Concurrent Access: falseCentral Venous Catheter (CVC) Chest (Right) Arterial Sitting Heart Rate Pre-Dialysis 72 BPM BP Standing (Post-Dialysis) 148/90 mmHg Temperature Pre-Dialysis 97.6 degF Sitting Heart Ra te Post-Dialysis 84 BPM Standing Heart Rate Post-Sheri lysis 94 BPM Temperature Post-Dialysis 97 .4 degF May 10, 2024 In-Center Hemodialysis Treatment 6504-01-17W39:58:02.000Z 0985-24-35H48:29:42.000Z BP Sitting (Pre-Dialysis) 151/84 mmHg BP Sitting (Post-Dialysis) 139/99 mmHg Concurrent Access: falseCentral Venous Catheter (CVC) Chest (Right) Arterial BP Standing (Pre-Dialysis) 160/85 mmHg Sitti ng Heart Rate Post-Dialysis 82 BPM Sitting Heart Rate Pre-Dialysis 69 BPM Temperatu re Post-Dialysis 97.8 degF Standing Heart Rate Pre-Dialysis 65 BPM Temperature Pre-Dialysis 97.2 degF May 08, 2024 In-Center Hemodialysis Treatment 0585-24-50O00:32:42.000Z 2110-86-41D74:11:52.000Z BP Sitting (Pre-Dialysis) 143/77 mmHg BP Sitting (Post-Dialysis) 153/94 mmHg Concurrent Access: falseCentral Venous Catheter (CVC) Chest (Right) Arterial Sitting Heart Rate Pre-Dialysis 67 BPM Sitting H eart Rate Post-Dialysis 83 BPM Temperature Pre-Dialysis 97.6 degF Temperature Post -Dialysis 97.8 degF May 05, 2024 In-Center Hemodialysis Treatment 5023-74-93Q40:27:00.000Z 1359-51-70F59:00:27.000Z BP Sitting (Pre-Dialysis) 131/81 mmHg BP Sitting (Post-Dialysis) 161/92 mmHg Concurrent Access: falseCentral Venous Catheter (CVC) Chest (Right) Arterial BP Standing (Pre-Dialysis) 144/75 mmHg BP Standing (P ost-Dialysis) 149/82 mmHg Sitting Heart Rate Pre-Dialysis 72 BPM Sitting Heart Rate Post-Dialysis 83 BPM Standing Heart Rate Pre-Dialysis 76 BPM Standing Heart Rate Post-Dialysis 69 BPM Temperature Pre-Dialysis 97.8 degF Temperature Post -Dialysis 97.6 degF May 03, 2024 In-Center Hemodialysis Treatment [id number]:38:29.000Z 7647-18-32Z19:23:54.000Z BP Sitting (Pre-Dialysis) 143/87 mmHg BP Sitting (Post-Dialysis) 159/89 mmHg Concurrent Access: falseCentral Venous Catheter (CVC) Chest (Right) Arterial Sitting Heart Rate Pre-Dialysis 66 BPM BP Standing (Post-Dialysis) 138/84 mmHg Temperature Pre-Dialysis 97.2 degF Sitting Heart Ra te Post-Dialysis 88 BPM Standing Heart Rate Post-Sheri lysis 106 BPM Temperature Post-Dialysis 97 .8 degF May 01, 2024 In-Center Hemodialysis Treatment 8490-38-52W01:29:54.000Z 5617-81-85A22:00:44.000Z BP Sitting (Pre-Dialysis) 124/78 mmHg BP Sitting (Post-Dialysis) 139/86 mmHg Concurrent Access: falseCentral Venous Catheter (CVC) Chest (Right) Arterial Sitting Heart Rate Pre-Dialysis 66 BPM BP Standing (Post-Dialysis) 152/72 mmHg Temperature Pre-Dialysis 97.2 degF Sitting Heart Ra te Post-Dialysis 80 BPM Standing Heart Rate Post-Sheri lysis 84 BPM Temperature Post-Dialysis 97 .5 degF April 28, 2024 In-Center Hemodialysis Treatment 5221-44-15F21:44:28.000Z 9282-63-45N06:19:53.000Z BP Sitting (Pre-Dialysis) 143/87 mmHg BP Sitting (Post-Dialysis) 153/90 mmHg Concurrent Access: falseCentral Venous Catheter (CVC) Chest (Right) Arterial Sitting Heart Rate Pre-Dialysis 75 BPM BP Standing (Post-Dialysis) 147/93 mmHg Temperature Pre-Dialysis 97.8 degF Sitting Heart Ra te Post-Dialysis 72 BPM Standing Heart Rate Post-Sheri lysis 88 BPM Temperature Post-Dialysis 97 .6 degF April 26, 2024 In-Center Hemodialysis Treatment [id number]:32:20.000Z 2569-82-16P72:58:35.000Z BP Sitting (Pre-Dialysis) 162/85 mmHg BP Sitting (Post-Dialysis) 133/82 mmHg Concurrent Access: falseCentral Venous Catheter (CVC) Chest (Right) Arterial Sitting Heart Rate Pre-Dialysis 75 BPM Sitting H eart Rate Post-Dialysis 78 BPM Temperature Pre-Dialysis 97.8 degF Temperature Post -Dialysis 97.2 degF April 24, 2024 In-Center Hemodialysis Treatment [id number]:32:11.000Z 4675-82-21W44:56:21.000Z BP Sitting (Pre-Dialysis) 144/85 mmHg BP Sitting (Post-Dialysis) 157/95 mmHg Concurrent Access: falseCentral Venous Catheter (CVC) Chest (Right) Arterial BP Standing (Pre-Dialysis) 140/72 mmHg BP Standing (P ost-Dialysis) 134/75 mmHg Sitting Heart Rate Pre-Dialysis 73 BPM Sitting Heart Rate Post-Dialysis 75 BPM Standing Heart Rate Pre-Dialysis 70 BPM Standing Heart Rate Post-Dialysis 80 BPM Temperature Pre-Dialysis 97.6 degF Temperature Post -Dialysis 97.2 degF April 21, 2024 In-Center Hemodialysis Treatment [id number]:30:47.000Z 5136-33-89V69:59:07.000Z BP Sitting (Pre-Dialysis) 148/82 mmHg BP Sitting (Post-Dialysis) 164/97 mmHg Concurrent Access: falseCentral Venous Catheter (CVC) Chest (Right) Arterial Sitting Heart Rate Pre-Dialysis 59 BPM Sitting H eart Rate Post-Dialysis 93 BPM Temperature Pre-Dialysis 97.2 degF Temperature Post -Dialysis 97.9 degF April 14, 2024 In-Center Hemodialysis Treatment [id number]:31:27.000Z 5972-39-28E18:02:42.000Z BP Sitting (Pre-Dialysis) 152/94 mmHg BP Sitting (Post-Dialysis) 141/92 mmHg Concurrent Access: falseCentral Venous Catheter (CVC) Chest (Right) Arterial Sitting Heart Rate Pre-Dialysis 71 BPM BP Standing (Post-Dialysis) 148/92 mmHg Temperature Pre-Dialysis 97.6 degF Sitting Heart Ra te Post-Dialysis 89 BPM Standing Heart Rate Post-Sheri lysis 67 BPM Temperature Post-Dialysis 97 .4 degF April 10, 2024 In-Center Hemodialysis Treatment [id number]:23:00.000Z 5434-45-42J63:53:16.000Z BP Sitting (Pre-Dialysis) 119/74 mmHg BP Sitting (Post-Dialysis) 122/71 mmHg Concurrent Access: falseCentral Venous Catheter (CVC) Chest (Right) Arterial Sitting Heart Rate Pre-Dialysis 68 BPM BP Standing (Post-Dialysis) 109/63 mmHg Temperature Pre-Dialysis 97.4 degF Sitting Heart Ra te Post-Dialysis 75 BPM Standing Heart Rate Post-Sheri lysis 72 BPM Temperature Post-Dialysis 97 .2 degF April 07, 2024 In-Center Hemodialysis Treatment [id number]:22:25.000Z 1099-72-45A01:52:25.000Z BP Sitting (Pre-Dialysis) 121/83 mmHg BP Sitting (Post-Dialysis) 114/78 mmHg Concurrent Access: falseCentral Venous Catheter (CVC) Chest (Right) Arterial BP Standing (Pre-Dialysis) 124/80 mmHg BP Standing (P ost-Dialysis) 119/72 mmHg Sitting Heart Rate Pre-Dialysis 79 BPM Sitting Heart Rate Post-Dialysis 87 BPM Standing Heart Rate Pre-Dialysis 83 BPM Standing Heart Rate Post-Dialysis 88 BPM Temperature Pre-Dialysis 97.9 degF Temperature Post -Dialysis 97.1 degF April 05, 2024 In-Center Hemodialysis Treatment [id number]:26:14.000Z 5976-94-74N84:25:49.000Z BP Sitting (Pre-Dialysis) 128/80 mmHg BP Sitting (Post-Dialysis) 125/81 mmHg Concurrent Access: falseCentral Venous Catheter (CVC) Chest (Right) Arterial BP Standing (Pre-Dialysis) 109/76 mmHg BP Standing (P ost-Dialysis) 122/83 mmHg Sitting Heart Rate Pre-Dialysis 75 BPM Sitting Heart Rate Post-Dialysis 69 BPM Standing Heart Rate Pre-Dialysis 78 BPM Standing Heart Rate Post-Dialysis 59 BPM Temperature Pre-Dialysis 97.2 degF Temperature Post -Dialysis 97.6 degF April 03, 2024 In-Center Hemodialysis Treatment 3795-69-82F28:04:00.000Z 1105-65-67U09:36:51.000Z BP Sitting (Pre-Dialysis) 136/89 mmHg BP Sitting (Post-Dialysis) 142/83 mmHg Concurrent Access: falseCentral Venous Catheter (CVC) Chest (Right) Arterial BP Standing (Pre-Dialysis) 137/109 mmHg Sitti ng Heart Rate Post-Dialysis 73 BPM Sitting Heart Rate Pre-Dialysis 77 BPM Temperatu re Post-Dialysis 97.8 degF Standing Heart Rate Pre-Dialysis 79 BPM Temperature Pre-Dialysis 97.8 degF March 31, 2024 In-Center Hemodialysis Treatment 4380-40-72M19:40:00.000Z 6606-29-04X07:59:50.000Z BP Sitting (Pre-Dialysis) 130/79 mmHg BP Sitting (Post-Dialysis) 140/90 mmHg Concurrent Access: falseCentral Venous Catheter (CVC) Chest (Right) Arterial Sitting Heart Rate Pre-Dialysis 59 BPM Sitting H eart Rate Post-Dialysis 71 BPM Temperature Pre-Dialysis 97.2 degF Temperature Post -Dialysis 97.6 degF March 29, 2024 In-Center Hemodialysis Treatment [id number]:50:51.000Z 4261-71-27R63:20:26.000Z BP Sitting (Pre-Dialysis) 162/95 mmHg BP Sitting (Post-Dialysis) 127/96 mmHg Concurrent Access: falseCentral Venous Catheter (CVC) Chest (Right) Arterial BP Standing (Pre-Dialysis) 154/89 mmHg BP Standing (P ost-Dialysis) 119/82 mmHg Sitting Heart Rate Pre-Dialysis 70 BPM Sitting Heart Rate Post-Dialysis 77 BPM Standing Heart Rate Pre-Dialysis 64 BPM Standing Heart Rate Post-Dialysis 108 BPM Temperature Pre-Dialysis 97.7 degF Temperature Post -Dialysis 97.5 degF March 27, 2024 In-Center Hemodialysis Treatment 8220-18-39E79:26:35.000Z 6662-19-07E56:57:25.000Z BP Sitting (Pre-Dialysis) 133/100 mmHg BP Sitting (Post-Dialysis) 153/93 mmHg Concurrent Access: falseCentral Venous Catheter (CVC) Chest (Right) Arterial BP Standing (Pre-Dialysis) 115/88 mmHg BP Standing (P ost-Dialysis) 153/91 mmHg Sitting Heart Rate Pre-Dialysis 70 BPM Sitting Heart Rate Post-Dialysis 72 BPM Standing Heart Rate Pre-Dialysis 73 BPM Standing Heart Rate Post-Dialysis 72 BPM Temperature Pre-Dialysis 97.2 degF Temperature Post -Dialysis 97.6 degF March 24, 2024 In-Center Hemodialysis Treatment 4658-88-28L24:54:15.000Z 6541-31-03Z68:24:15.000Z BP Sitting (Pre-Dialysis) 153/90 mmHg BP Sitting (Post-Dialysis) 126/90 mmHg Concurrent Access: falseCentral Venous Catheter (CVC) Chest (Right) Arterial Sitting Heart Rate Pre-Dialysis 67 BPM BP Standi ng (Post-Dialysis) 120/85 mmHg Temperature Pre-Dialysis 97 degF Sitting Heart Ra te Post-Dialysis 74 BPM Standing Heart Rate Post-Sheri lysis 78 BPM Temperature Post-Dialysis 97 .3 degF March 22, 2024 In-Center Hemodialysis Treatment 1220-57-32F09:17:51.000Z 8023-54-72C95:50:21.000Z BP Sitting (Pre-Dialysis) 143/72 mmHg BP Sitting (Post-Dialysis) 121/88 mmHg Concurrent Access: falseCentral Venous Catheter (CVC) Chest (Right) Arterial Sitting Heart Rate Pre-Dialysis 61 BPM Sitting H eart Rate Post-Dialysis 73 BPM Temperature Pre-Dialysis 97 degF Temperature Post -Dialysis 97.2 degF March 17, 2024 In-Center Hemodialysis Treatment 6560-45-35Z22:48:08.000Z 8139-39-57H27:18:58.000Z BP Sitting (Pre-Dialysis) 132/81 mmHg BP Sitting (Post-Dialysis) 107/73 mmHg Concurrent Access: falseCentral Venous Catheter (CVC) Chest (Right) Arterial BP Standing (Pre-Dialysis) 128/78 mmHg BP Standing (P ost-Dialysis) 136/57 mmHg Sitting Heart Rate Pre-Dialysis 68 BPM Sitting Heart Rate Post-Dialysis 76 BPM Standing Heart Rate Pre-Dialysis 72 BPM Standing Heart Rate Post-Dialysis 81 BPM Temperature Pre-Dialysis 97.2 degF Temperature Post -Dialysis 97.4 degF March 03, 2024 In-Center Hemodialysis Treatment [id number]:21:44.000Z 7676-27-22F54:51:19.000Z BP Sitting (Pre-Dialysis) 113/76 mmHg BP Sitting (Post-Dialysis) 127/74 mmHg Concurrent Access: falseCentral Venous Catheter (CVC) Chest (Right) Arterial Sitting Heart Rate Pre-Dialysis 70 BPM BP Standing (Post-Dialysis) 104/69 mmHg Temperature Pre-Dialysis 97.8 degF Sitting Heart Ra te Post-Dialysis 62 BPM Standing Heart Rate Post-Sheri lysis 64 BPM Temperature Post-Dialysis 97 .6 degF March 02, 2024 In-Center Hemodialysis Treatment 8809-49-13V72:28:48.000Z 8123-34-92V13:59:38.000Z BP Sitting (Pre-Dialysis) 136/68 mmHg BP Sitting (Post-Dialysis) 115/77 mmHg Concurrent Access: falseCentral Venous Catheter (CVC) Chest (Right) Arterial BP Standing (Pre-Dialysis) 138/62 mmHg Sitti ng Heart Rate Post-Dialysis 79 BPM Sitting Heart Rate Pre-Dialysis 77 BPM Temperatu re Post-Dialysis 97.6 degF Standing Heart Rate Pre-Dialysis 68 BPM Temperature Pre-Dialysis 97.6 degF February 28, 2024 In-Center Hemodialysis Treatment 5205-63-12M65:39:14.000Z 6702-55-11A68:04:14.000Z BP Sitting (Pre-Dialysis) 130/82 mmHg BP Sitting (Post-Dialysis) 145/83 mmHg Concurrent Access: falseCentral Venous Catheter (CVC) Chest (Right) Arterial Sitting Heart Rate Pre-Dialysis 66 BPM Sitting H eart Rate Post-Dialysis 79 BPM Temperature Pre-Dialysis 97.2 degF Temperature Post -Dialysis 98.2 degF February 21, 2024 In-Center Hemodialysis Treatment 7220-48-18N83:07:43.000Z 2252-75-96L45:35:38.000Z BP Sitting (Pre-Dialysis) 127/78 mmHg BP Sitting (Post-Dialysis) 106/67 mmHg Concurrent Access: falseCentral Venous Catheter (CVC) Chest (Right) Arterial Sitting Heart Rate Pre-Dialysis 68 BPM BP Standi ng (Post-Dialysis) 98/62 mmHg Temperature Pre-Dialysis 97.2 degF Sitting Heart Ra te Post-Dialysis 56 BPM Standing Heart Rate Post-Sheri lysis 80 BPM Temperature Post-Dialysis 97 .2 degF February 18, 2024 In-Center Hemodialysis Treatment 9985-95-12H83:31:25.000Z 9123-88-45Z36:01:00.000Z BP Sitting (Pre-Dialysis) 129/92 mmHg BP Sitting (Post-Dialysis) 111/68 mmHg Concurrent Access: falseCentral Venous Catheter (CVC) Chest (Right) Arterial Sitting Heart Rate Pre-Dialysis 72 BPM Sitting H eart Rate Post-Dialysis 69 BPM Temperature Pre-Dialysis 97 degF Temperature Post -Dialysis 97.9 degF February 16, 2024 In-Center Hemodialysis Treatment 4732-30-32D02:40:34.000Z 5105-97-34A77:12:14.000Z BP Sitting (Pre-Dialysis) 159/89 mmHg BP Sitting (Post-Dialysis) 140/92 mmHg Concurrent Access: falseCentral Venous Catheter (CVC) Chest (Right) Arterial Sitting Heart Rate Pre-Dialysis 62 BPM Sitting H eart Rate Post-Dialysis 56 BPM Temperature Pre-Dialysis 97.7 degF Temperature Post -Dialysis 97.8 degF February 14, 2024 In-Center Hemodialysis Treatment 0990-47-83A29:00:00.000Z 9426-84-39A26:35:38.000Z BP Sitting (Pre-Dialysis) 157/102 mmHg BP Sitting (Post-Dialysis) 126/95 mmHg Concurrent Access: falseCentral Venous Catheter (CVC) Chest (Right) Arterial BP Standing (Pre-Dialysis) 149/92 mmHg Sitti ng Heart Rate Post-Dialysis 84 BPM Sitting Heart Rate Pre-Dialysis 66 BPM Temperatu re Post-Dialysis 97.8 degF Standing Heart Rate Pre-Dialysis 65 BPM Temperature Pre-Dialysis 97.8 degF February 09, 2024 In-Center Hemodialysis Treatment 2672-04-86Z72:29:35.000Z 3301-04-00S92:00:50.000Z BP Sitting (Pre-Dialysis) 133/79 mmHg BP Sitting (Post-Dialysis) 141/93 mmHg Concurrent Access: falseCentral Venous Catheter (CVC) Chest (Right) Arterial Sitting Heart Rate Pre-Dialysis 94 BPM Sitting H eart Rate Post-Dialysis 74 BPM Temperature Pre-Dialysis 97.2 degF Temperature Post -Dialysis 97.5 degF February 07, 2024 In-Center Hemodialysis Treatment 4068-84-67L13:46:43.000Z 1156-80-22K27:17:58.000Z BP Sitting (Pre-Dialysis) 179/107 mmHg BP Sitting (Post-Dialysis) 179/108 mmHg Concurrent Access: falseCentral Venous Catheter (CVC) Chest (Right) Arterial Sitting Heart Rate Pre-Dialysis 55 BPM BP Standing (Post-Dialysis) 169/101 mmHg Temperature Pre-Dialysis 97.2 degF Sitting Heart Ra te Post-Dialysis 72 BPM Standing Heart R ate Post-Dialysis 67 BPM Temperature Post-Dialysis 97 .3 degF February 04, 2024 In-Center Hemodialysis Treatment 6433-97-77I29:57:00.000Z 9921-84-51Q79:29:42.000Z BP Sitting (Pre-Dialysis) 173/115 mmHg BP Sitting (Post-Dialysis) 171/110 mmHg Concurrent Access: falseCentral Venous Catheter (CVC) Chest (Right) Arterial Sitting Heart Rate Pre-Dialysis 71 BPM BP Standing (Post-Dialysis) 165/89 mmHg Temperature Pre-Dialysis 97.8 degF Sitting Heart Ra te Post-Dialysis 74 BPM Standing Heart Rate Post-Sheri lysis 85 BPM Temperature Post-Dialysis 97 .1 degF February 02, 2024 In-Center Hemodialysis Treatment 8258-14-52W42:03:18.000Z 5202-22-17Z63:35:50.000Z BP Sitting (Pre-Dialysis) 183/105 mmHg BP Sitting (Post-Dialysis) 152/86 mmHg Concurrent Access: falseCentral Venous Catheter (CVC) Chest (Right) Arterial BP Standing (Pre-Dialysis) 181/105 mmHg BP Standing (P ost-Dialysis) 164/110 mmHg Sitting Heart Rate Pre-Dialysis 67 BPM Sitting Heart Rate Post-Dialysis 77 BPM Standing Heart Rate Pre-Dialysis 67 BPM Standing Heart Rate Post-Dialysis 72 BPM Temperature Pre-Dialysis 97.7 degF Temperature Post -Dialysis 97.6 degF January 26, 2024 In-Center Hemodialysis Treatment 4611-33-95E44:17:41.000Z 9267-27-03P29:04:46.000Z BP Sitting (Pre-Dialysis) 186/105 mmHg BP Sitting (Post-Dialysis) 145/86 mmHg Concurrent Access: falseCentral Venous Catheter (CVC) Chest (Right) Arterial Sitting Heart Rate Pre-Dialysis 73 BPM BP Standing (Post-Dialysis) 145/80 mmHg Temperature Pre-Dialysis 97.7 degF Sitting Heart Ra te Post-Dialysis 82 BPM Standing Heart Rate Post-Sheri lysis 103 BPM Temperature Post-Dialysis 97 .8 degF January 24, 2024 In-Center Hemodialysis Treatment 0432-16-07C48:59:59.000Z 6132-25-84X25:32:04.000Z BP Sitting (Pre-Dialysis) 188/111 mmHg BP Sitting (Post-Dialysis) 152/98 mmHg Concurrent Access: falseCentral Venous Catheter (CVC) Chest (Right) Arterial Sitting Heart Rate Pre-Dialysis 74 BPM Sitting H eart Rate Post-Dialysis 84 BPM Temperature Pre-Dialysis 97.3 degF Temperature Post -Dialysis 97.7 degF January 21, 2024 In-Center Hemodialysis Treatment 3560-33-69V85:59:24.000Z 1827-45-74E10:31:04.000Z BP Sitting (Pre-Dialysis) 162/90 mmHg BP Sitting (Post-Dialysis) 174/98 mmHg Concurrent Access: falseCentral Venous Catheter (CVC) Chest (Right) Arterial Sitting Heart Rate Pre-Dialysis 68 BPM BP Standing (Post-Dialysis) 117/89 mmHg Temperature Pre-Dialysis 97.2 degF Sitting Heart Ra te Post-Dialysis 74 BPM Standing Heart Rate Post-Sheri lysis 82 BPM Temperature Post-Dialysis 97 .8 degF January 19, 2024 In-Center Hemodialysis Treatment 7853-88-43B71:49:36.000Z 4249-72-95U88:20:01.000Z BP Sitting (Pre-Dialysis) 182/98 mmHg BP Sitting (Post-Dialysis) 162/89 mmHg Concurrent Access: falseCentral Venous Catheter (CVC) Chest (Right) Arterial Sitting Heart Rate Pre-Dialysis 69 BPM Sitting H eart Rate Post-Dialysis 82 BPM Temperature Pre-Dialysis 97.2 degF Temperature Post -Dialysis 98.2 degF January 17, 2024 In-Center Hemodialysis Treatment 1922-07-53H93:53:21.000Z 4851-27-32S88:21:41.000Z BP Sitting (Pre-Dialysis) 153/89 mmHg BP Sitting (Post-Dialysis) 165/101 mmHg Concurrent Access: falseCentral Venous Catheter (CVC) Chest (Right) Arterial BP Standing (Pre-Dialysis) 166/89 mmHg Sitti ng Heart Rate Post-Dialysis 89 BPM Sitting Heart Rate Pre-Dialysis 72 BPM Temperatu re Post-Dialysis 97.2 degF Standing Heart Rate Pre-Dialysis 73 BPM Temperature Pre-Dialysis 97.7 degF January 14, 2024 In-Center Hemodialysis Treatment 4610-74-79D29:52:42.000Z 0200-47-79F37:45:12.000Z BP Sitting (Pre-Dialysis) 181/97 mmHg BP Sitting (Post-Dialysis) 171/103 mmHg Concurrent Access: falseCentral Venous Catheter (CVC) Chest (Right) Arterial BP Standing (Pre-Dialysis) 190/105 mmHg BP Standing (P ost-Dialysis) 154/91 mmHg Sitting Heart Rate Pre-Dialysis 72 BPM Sitting Heart Rate Post-Dialysis 81 BPM Standing Heart Rate Pre-Dialysis 72 BPM Standing Heart Rate Post-Dialysis 98 BPM Temperature Pre-Dialysis 97.4 degF Temperature Post -Dialysis 97.4 degF January 12, 2024 In-Center Hemodialysis Treatment 2068-35-97P91:00:13.000Z 2155-16-27H15:32:43.000Z BP Sitting (Pre-Dialysis) 154/100 mmHg BP Sitting (Post-Dialysis) 134/90 mmHg Concurrent Access: falseCentral Venous Catheter (CVC) Chest (Right) Arterial Sitting Heart Rate Pre-Dialysis 68 BPM Sitting H eart Rate Post-Dialysis 80 BPM Temperature Pre-Dialysis 97.3 degF Temperature Post -Dialysis 97.4 degF January 07, 2024 In-Center Hemodialysis Treatment 0090-48-07G17:38:57.000Z 9327-47-32I46:08:32.000Z BP Sitting (Pre-Dialysis) 150/98 mmHg BP Sitting (Post-Dialysis) 122/72 mmHg Concurrent Access: falseCentral Venous Catheter (CVC) Chest (Right) Arterial BP Standing (Pre-Dialysis) 153/106 mmHg BP Standing (P ost-Dialysis) 120/89 mmHg Sitting Heart Rate Pre-Dialysis 78 BPM Sitting Heart Rate Post-Dialysis 78 BPM Standing Heart Rate Pre-Dialysis 82 BPM Standing Heart Rate Post-Dialysis 81 BPM Temperature Pre-Dialysis 97 degF Temperature Post -Dialysis 97.4 degF January 05, 2024 In-Center Hemodialysis Treatment 2154-76-10O87:57:37.000Z 8987-43-99Y82:28:27.000Z BP Sitting (Pre-Dialysis) 135/74 mmHg BP Sitting (Post-Dialysis) 151/90 mmHg Concurrent Access: falseCentral Venous Catheter (CVC) Chest (Right) Arterial Sitting Heart Rate Pre-Dialysis 51 BPM BP Standing (Post-Dialysis) 115/78 mmHg Temperature Pre-Dialysis 97.2 degF Sitting Heart Ra te Post-Dialysis 60 BPM Standing Heart Rate Post-Sheri lysis 88 BPM Temperature Post-Dialysis 97 .5 degF January 03, 2024 In-Center Hemodialysis Treatment 8677-81-26W08:44:00.000Z 7039-00-63G71:14:50.000Z BP Sitting (Pre-Dialysis) 181/101 mmHg BP Sitting (Post-Dialysis) 129/87 mmHg Concurrent Access: falseCentral Venous Catheter (CVC) Chest (Right) Arterial BP Standing (Pre-Dialysis) 178/98 mmHg BP Standing (P ost-Dialysis) 112/69 mmHg Sitting Heart Rate Pre-Dialysis 362 BPM Sitting Heart Rate Post-Dialysis 70 BPM Standing Heart Rate Pre-Dialysis 60 BPM Standing Heart Rate Post-Dialysis 106 BPM Temperature Pre-Dialysis 97.4 degF Temperature Post -Dialysis 97.2 degF December 31, 2023 In-Center Hemodialysis Treatment 7706-62-89L66:57:38.000Z 3866-53-04Y49:28:03.000Z BP Sitting (Pre-Dialysis) 153/87 mmHg BP Sitting (Post-Dialysis) 136/94 mmHg Concurrent Access: falseCentral Venous Catheter (CVC) Chest (Right) Arterial BP Standing (Pre-Dialysis) 148/87 mmHg Sitti ng Heart Rate Post-Dialysis 77 BPM Sitting Heart Rate Pre-Dialysis 65 BPM Temperatu re Post-Dialysis 97.8 degF Standing Heart Rate Pre-Dialysis 70 BPM Temperature Pre-Dialysis 97.7 degF December 29, 2023 In-Center Hemodialysis Treatment 7786-86-46Y27:59:13.000Z 2366-39-12S90:31:18.000Z BP Sitting (Pre-Dialysis) 101/57 mmHg BP Sitting (Post-Dialysis) 131/83 mmHg Concurrent Access: falseCentral Venous Catheter (CVC) Chest (Right) Arterial Sitting Heart Rate Pre-Dialysis 69 BPM Sitting H eart Rate Post-Dialysis 67 BPM Temperature Pre-Dialysis 97.2 degF Temperature Post -Dialysis 97.2 degF December 27, 2023 In-Center Hemodialysis Treatment 3688-15-43V53:59:31.000Z 3129-32-90R85:32:51.000Z BP Sitting (Pre-Dialysis) 146/75 mmHg BP Sitting (Post-Dialysis) 132/67 mmHg Concurrent Access: falseCentral Venous Catheter (CVC) Chest (Right) Arterial BP Standing (Pre-Dialysis) 125/78 mmHg BP Standing (P ost-Dialysis) 144/91 mmHg Sitting Heart Rate Pre-Dialysis 56 BPM Sitting Heart Rate Post-Dialysis 67 BPM Standing Heart Rate Pre-Dialysis 80 BPM Standing Heart Rate Post-Dialysis 63 BPM Temperature Pre-Dialysis 97.2 degF Temperature Post -Dialysis 97.2 degF December 24, 2023 In-Center Hemodialysis Treatment 8557-66-30H85:07:18.000Z 4203-33-60P25:36:03.000Z BP Sitting (Pre-Dialysis) 107/72 mmHg BP Sitting (Post-Dialysis) 124/67 mmHg Concurrent Access: falseCentral Venous Catheter (CVC) Chest (Right) Arterial Sitting Heart Rate Pre-Dialysis 76 BPM Sitting H eart Rate Post-Dialysis 67 BPM Temperature Pre-Dialysis 97.2 degF Temperature Post -Dialysis 97.6 degF December 22, 2023 In-Center Hemodialysis Treatment 8638-27-39H53:09:00.000Z 8744-59-91Y37:00:40.000Z BP Sitting (Pre-Dialysis) 121/74 mmHg BP Sitting (Post-Dialysis) 129/67 mmHg Concurrent Access: falseCentral Venous Catheter (CVC) Chest (Right) Arterial Sitting Heart Rate Pre-Dialysis 79 BPM Sitting H eart Rate Post-Dialysis 82 BPM Temperature Pre-Dialysis 97.7 degF Temperature Post -Dialysis 98.2 degF December 20, 2023 In-Center Hemodialysis Treatment 0319-57-70I52:06:57.000Z 3244-92-55S94:40:17.000Z BP Sitting (Pre-Dialysis) 155/82 mmHg BP Sitting (Post-Dialysis) 158/83 mmHg Concurrent Access: falseCentral Venous Catheter (CVC) Chest (Right) Arterial BP Standing (Pre-Dialysis) 157/104 mmHg Sitti ng Heart Rate Post-Dialysis 87 BPM Sitting Heart Rate Pre-Dialysis 76 BPM Temperatu re Post-Dialysis 97.6 degF Standing Heart Rate Pre-Dialysis 88 BPM Temperature Pre-Dialysis 97.5 degF December 06, 2023 In-Center Hemodialysis Treatment [id number]:57:45.000Z 0041-36-05U28:34:00.000Z BP Sitting (Pre-Dialysis) 115/68 mmHg BP Sitting (Post-Dialysis) 143/70 mmHg Concurrent Access: falseCentral Venous Catheter (CVC) Chest (Right) Arterial Sitting Heart Rate Pre-Dialysis 101 BPM Sitting H eart Rate Post-Dialysis 70 BPM Temperature Pre-Dialysis 97.5 degF Temperature Post -Dialysis 97.5 degF December 03, 2023 In-Center Hemodialysis Treatment 2298-94-42A49:01:54.000Z 0097-92-88L35:10:34.000Z BP Sitting (Pre-Dialysis) 99/63 mmHg BP Sitting (Post-Dialysis) 133/78 mmHg Concurrent Access: falseCentral Venous Catheter (CVC) Chest (Right) Arterial Sitting Heart Rate Pre-Dialysis 79 BPM Sitting H eart Rate Post-Dialysis 70 BPM Temperature Pre-Dialysis 97.6 degF Temperature Post -Dialysis 97.2 degF December 01, 2023 In-Center Hemodialysis Treatment 8933-00-25B15:02:00.000Z 6637-44-41A66:36:48.000Z BP Sitting (Pre-Dialysis) 117/65 mmHg BP Sitting (Post-Dialysis) 140/81 mmHg Concurrent Access: falseCentral Venous Catheter (CVC) Chest (Right) Arterial Sitting Heart Rate Pre-Dialysis 71 BPM BP Standing (Post-Dialysis) 133/78 mmHg Temperature Pre-Dialysis 97.2 degF Sitting Heart Ra te Post-Dialysis 82 BPM Standing Heart Rate Post-Sheri lysis 79 BPM Temperature Post-Dialysis 97 .4 degF November 29, 2023 In-Center Hemodialysis Treatment 3290-38-10P87:29:06.000Z 3260-00-13A90:03:59.000Z BP Sitting (Pre-Dialysis) 84/44 mmHg BP Sitting (Post-Dialysis) 140/77 mmHg Concurrent Access: falseCentral Venous Catheter (CVC) Chest (Right) Arterial Sitting Heart Rate Pre-Dialysis 75 BPM Sitting H eart Rate Post-Dialysis 66 BPM Temperature Pre-Dialysis 97.2 degF Temperature Post -Dialysis 97.5 degF November 26, 2023 [facility] Hemod[facility] Treatment 6180-25-21H27:52:00.000Z 1042-45-96A08:27:14.000Z BP Sitting (Pre-Dialysis) 122/72 mmHg BP Sitting (Post-Dialysis) 142/80 mmHg Concurrent Access: falseCentral Venous Catheter (CVC) Chest (Right) Arterial Sitting Heart Rate Pre-Dialysis 68 BPM Sitting H eart Rate Post-Dialysis 63 BPM Temperature Pre-Dialysis 97.7 degF Temperature Post -Dialysis 98.1 degF November 22, 2023 In-Center Hemodialysis Treatment 9208-79-72Y67:48:51.000Z 7081-43-92L11:15:56.000Z BP Sitting (Pre-Dialysis) 107/52 mmHg BP Sitting (Post-Dialysis) 114/69 mmHg Concurrent Access: falseCentral Venous Catheter (CVC) Chest (Right) Arterial Sitting Heart Rate Pre-Dialysis 71 BPM BP Standing (Post-Dialysis) 115/75 mmHg Temperature Pre-Dialysis 98.2 degF Sitting Heart Ra te Post-Dialysis 66 BPM Standing Heart Rate Post-Sheri lysis 87 BPM Temperature Post-Dialysis 97 .7 degF November 19, 2023 In-Center Hemodialysis Treatment 3711-07-24D00:27:59.000Z 1330-22-16Z43:48:49.000Z BP Sitting (Pre-Dialysis) 136/82 mmHg BP Sitting (Post-Dialysis) 147/95 mmHg Concurrent Access: falseCentral Venous Catheter (CVC) Chest (Right) Arterial BP Standing (Pre-Dialysis) 115/70 mmHg Sitti ng Heart Rate Post-Dialysis 79 BPM Sitting Heart Rate Pre-Dialysis 78 BPM Temperatu re Post-Dialysis 97.2 degF Standing Heart Rate Pre-Dialysis 75 BPM Temperature Pre-Dialysis 97.6 degF November 17, 2023 In-Center Hemodialysis Treatment 8190-05-97X24:40:00.000Z 4144-98-21J76:20:00.000Z BP Sitting (Pre-Dialysis) 111/73 mmHg BP Sitting (Post-Dialysis) 107/77 mmHg Concurrent Access: falseCentral Venous Catheter (CVC) Chest (Right) Arterial BP Standing (Pre-Dialysis) 111/66 mmHg BP Standing (P ost-Dialysis) 104/59 mmHg Sitting Heart Rate Pre-Dialysis 72 BPM Sitting Heart Rate Post-Dialysis 108 BPM Standing Heart Rate Pre-Dialysis 71 BPM Standing Heart Rate Post-Dialysis 100 BPM Temperature Pre-Dialysis 97.7 degF Temperature Post -Dialysis 97.2 degF November 15, 2023 In-Center Hemodialysis Treatment 7795-12-87I67:32:20.000Z 5321-02-79P72:05:49.000Z BP Sitting (Pre-Dialysis) 128/68 mmHg BP Sitting (Post-Dialysis) 149/88 mmHg Concurrent Access: falseCentral Venous Catheter (CVC) Chest (Right) Arterial Sitting Heart Rate Pre-Dialysis 88 BPM BP Standing (Post-Dialysis) 146/93 mmHg Temperature Pre-Dialysis 97.2 degF Sitting Heart Ra te Post-Dialysis 72 BPM Standing Heart Rate Post-Sheri lysis 82 BPM Temperature Post-Dialysis 97 .8 degF November 12, 2023 In-Center Hemodialysis Treatment 4816-01-54B07:36:07.000Z 1231-53-38A37:06:07.000Z BP Sitting (Pre-Dialysis) 90/52 mmHg BP Sitting (Post-Dialysis) 111/83 mmHg Concurrent Access: falseCentral Venous Catheter (CVC) Chest (Right) Arterial Sitting Heart Rate Pre-Dialysis 53 BPM BP Standing (Post-Dialysis) 109/72 mmHg Temperature Pre-Dialysis 97.2 degF Sitting Heart Ra te Post-Dialysis 68 BPM Standing Heart Rate Post-Sheri lysis 72 BPM Temperature Post-Dialysis 97 .7 degF November 10, 2023 In-Center Hemodialysis Treatment [id number]:39:00.000Z [id number]:19:24.000Z BP Sitting (Pre-Dialysis) 114/65 mmHg BP Sitting (Post-Dialysis) 116/80 mmHg Concurrent Access: falseCentral Venous Catheter (CVC) Chest (Right) Arterial Sitting Heart Rate Pre-Dialysis 87 BPM BP Standing (Post-Dialysis) 108/72 mmHg Temperature Pre-Dialysis 97.7 degF Sitting Heart Ra te Post-Dialysis 84 BPM Standing Heart Rate Post-Sheri lysis 100 BPM Temperature Post-Dialysis 97 .6 degF November 08, 2023 In-Center Hemodialysis Treatment [id number]:25:00.000Z 8754-96-23I39:00:34.000Z BP Sitting (Pre-Dialysis) 129/84 mmHg BP Sitting (Post-Dialysis) 122/51 mmHg Concurrent Access: falseCentral Venous Catheter (CVC) Chest (Right) Arterial Sitting Heart Rate Pre-Dialysis 71 BPM BP Standing (Post-Dialysis) 142/83 mmHg Temperature Pre-Dialysis 97.7 degF Sitting Heart Ra te Post-Dialysis 81 BPM Standing Heart Rate Post-Sheri lysis 86 BPM Temperature Post-Dialysis 98 .4 degF November 05, 2023 In-Center Hemodialysis Treatment [id number]:49:27.000Z 7052-53-44Z08:23:37.000Z BP Sitting (Pre-Dialysis) 107/80 mmHg BP Sitting (Post-Dialysis) 131/74 mmHg Concurrent Access: falseCentral Venous Catheter (CVC) Chest (Right) Arterial BP Standing (Pre-Dialysis) 123/81 mmHg Sitti ng Heart Rate Post-Dialysis 87 BPM Sitting Heart Rate Pre-Dialysis 76 BPM Temperatu re Post-Dialysis 98.2 degF Standing Heart Rate Pre-Dialysis 71 BPM Temperature Pre-Dialysis 97.5 degF November 03, 2023 In-Center Hemodialysis Treatment [id number]:42:15.000Z 6823-39-34N57:10:35.000Z BP Sitting (Pre-Dialysis) 138/88 mmHg BP Sitting (Post-Dialysis) 112/77 mmHg Concurrent Access: falseCentral Venous Catheter (CVC) Chest (Right) Arterial BP Standing (Pre-Dialysis) 134/97 mmHg BP Standing (P ost-Dialysis) 120/74 mmHg Sitting Heart Rate Pre-Dialysis 84 BPM Sitting Heart Rate Post-Dialysis 81 BPM Standing Heart Rate Pre-Dialysis 87 BPM Standing Heart Rate Post-Dialysis 87 BPM Temperature Pre-Dialysis 97.8 degF Temperature Post -Dialysis 97.4 degF October 29, 2023 In-Center Hemodialysis Treatment 8441-95-81Y50:00:00.000Z 4584-79-62Y76:01:27.000Z BP Sitting (Pre-Dialysis) 120/72 mmHg BP Sitting (Post-Dialysis) 154/92 mmHg Concurrent Access: falseCentral Venous Catheter (CVC) Chest (Right) Arterial BP Standing (Pre-Dialysis) 139/82 mmHg BP Standing (P ost-Dialysis) 141/79 mmHg Sitting Heart Rate Pre-Dialysis 64 BPM Sitting Heart Rate Post-Dialysis 72 BPM Standing Heart Rate Pre-Dialysis 85 BPM Standing Heart Rate Post-Dialysis 59 BPM Temperature Pre-Dialysis 97.5 degF Temperature Post -Dialysis 97.6 degF October 27, 2023 In-Center Hemodialysis Treatment [id number]:33:00.000Z 0223-17-19B02:00:59.000Z BP Sitting (Pre-Dialysis) 120/85 mmHg BP Sitting (Post-Dialysis) 138/78 mmHg Concurrent Access: falseCentral Venous Catheter (CVC) Chest (Right) Arterial BP Standing (Pre-Dialysis) 121/84 mmHg Sitti ng Heart Rate Post-Dialysis 75 BPM Sitting Heart Rate Pre-Dialysis 75 BPM Temperatu re Post-Dialysis 97.1 degF Standing Heart Rate Pre-Dialysis 76 BPM Temperature Pre-Dialysis 97.2 degF October 25, 2023 In-Center Hemodialysis Treatment [id number]:35:47.000Z 0972-29-97D76:40:22.000Z BP Sitting (Pre-Dialysis) 115/63 mmHg BP Sitting (Post-Dialysis) 138/96 mmHg Concurrent Access: falseCentral Venous Catheter (CVC) Chest (Right) Arterial Sitting Heart Rate Pre-Dialysis 55 BPM Sitting H eart Rate Post-Dialysis 75 BPM Temperature Pre-Dialysis 97.5 degF Temperature Post -Dialysis 97.5 degF October 22, 2023 In-Center Hemodialysis Treatment [id number]:27:00.000Z 1510-62-05J05:00:22.000Z BP Sitting (Pre-Dialysis) 145/84 mmHg BP Sitting (Post-Dialysis) 155/99 mmHg Concurrent Access: falseCentral Venous Catheter (CVC) Chest (Right) Arterial BP Standing (Pre-Dialysis) 172/82 mmHg BP Standing (P ost-Dialysis) 148/108 mmHg Sitting Heart Rate Pre-Dialysis 50 BPM Sitting Heart Rate Post-Dialysis 79 BPM Standing Heart Rate Pre-Dialysis 72 BPM Standing Heart Rate Post-Dialysis 58 BPM Temperature Pre-Dialysis 97.5 degF Temperature Post -Dialysis 98 degF October 20, 2023 In-Center Hemodialysis Treatment 1832-52-81F30:50:00.000Z 5807-88-88K53:22:06.000Z BP Sitting (Pre-Dialysis) 107/73 mmHg BP Sitting (Post-Dialysis) 164/102 mmHg Concurrent Access: falseCentral Venous Catheter (CVC) Chest (Right) Arterial Sitting Heart Rate Pre-Dialysis 81 BPM BP Standing (Post-Dialysis) 152/95 mmHg Temperature Pre-Dialysis 97.6 degF Sitting Heart Ra te Post-Dialysis 75 BPM Standing Heart Rate Post-Sheri lysis 74 BPM Temperature Post-Dialysis 97 .6 degF October 18, 2023 In-Center Hemodialysis Treatment 9819-03-68D78:35:45.000Z 9956-05-43J18:06:10.000Z BP Sitting (Pre-Dialysis) 157/99 mmHg BP Sitting (Post-Dialysis) 179/109 mmHg Concurrent Access: falseCentral Venous Catheter (CVC) Chest (Right) Arterial Sitting Heart Rate Pre-Dialysis 90 BPM BP Standing (Post-Dialysis) 176/107 mmHg Temperature Pre-Dialysis 97.7 degF Sitting Heart Ra te Post-Dialysis 78 BPM Standing Heart R ate Post-Dialysis 79 BPM Temperature Post-Dialysis 97 .9 degF October 15, 2023 In-Center Hemodialysis Treatment 9249-01-01L68:37:23.000Z 6095-74-29G73:37:23.000Z BP Sitting (Pre-Dialysis) 136/64 mmHg BP Sitting (Post-Dialysis) 160/55 mmHg Concurrent Access: falseCentral Venous Catheter (CVC) Chest (Right) Arterial BP Standing (Pre-Dialysis) 140/82 mmHg Sitti ng Heart Rate Post-Dialysis 75 BPM Sitting Heart Rate Pre-Dialysis 82 BPM Temperatu re Post-Dialysis 97.8 degF Standing Heart Rate Pre-Dialysis 80 BPM Temperature Pre-Dialysis 97.7 degF October 13, 2023 In-Center Hemodialysis Treatment 5922-67-29A49:43:00.000Z 0670-90-16Y08:15:43.000Z BP Sitting (Pre-Dialysis) 123/73 mmHg BP Sitting (Post-Dialysis) 166/99 mmHg Concurrent Access: falseCentral Venous Catheter (CVC) Chest (Right) Arterial Sitting Heart Rate Pre-Dialysis 70 BPM Sitting H eart Rate Post-Dialysis 74 BPM Temperature Pre-Dialysis 97.5 degF Temperature Post -Dialysis 97.8 degF October 11, 2023 In-Center Hemodialysis Treatment 5129-86-01L49:48:20.000Z 6342-62-01P35:19:10.000Z BP Sitting (Pre-Dialysis) 124/81 mmHg BP Sitting (Post-Dialysis) 145/88 mmHg Concurrent Access: falseCentral Venous Catheter (CVC) Chest (Right) Arterial Sitting Heart Rate Pre-Dialysis 75 BPM BP Standing (Post-Dialysis) 125/78 mmHg Temperature Pre-Dialysis 97.2 degF Sitting Heart Ra te Post-Dialysis 70 BPM Standing Heart Rate Post-Sheri lysis 97 BPM Temperature Post-Dialysis 97 .6 degF October 08, 2023 In-Center Hemodialysis Treatment 2177-31-06R67:41:00.000Z 6679-24-13L61:12:50.000Z BP Sitting (Pre-Dialysis) 129/88 mmHg BP Sitting (Post-Dialysis) 152/90 mmHg Concurrent Access: falseCentral Venous Catheter (CVC) Chest (Right) Arterial BP Standing (Pre-Dialysis) 132/78 mmHg BP Standing (P ost-Dialysis) 138/89 mmHg Sitting Heart Rate Pre-Dialysis 78 BPM Sitting Heart Rate Post-Dialysis 90 BPM Standing Heart Rate Pre-Dialysis 68 BPM Standing Heart Rate Post-Dialysis 89 BPM Temperature Pre-Dialysis 97.5 degF Temperature Post -Dialysis 97.2 degF October 06, 2023 In-Center Hemodialysis Treatment 7109-93-50B90:38:00.000Z 7854-56-15K87:07:24.000Z BP Sitting (Pre-Dialysis) 120/85 mmHg BP Sitting (Post-Dialysis) 146/88 mmHg Concurrent Access: falseCentral Venous Catheter (CVC) Chest (Right) Arterial Sitting Heart Rate Pre-Dialysis 90 BPM Sitting H eart Rate Post-Dialysis 81 BPM Temperature Pre-Dialysis 97.2 degF Temperature Post -Dialysis 97.6 degF October 04, 2023 In-Center Hemodialysis Treatment 4518-92-90R22:41:00.000Z 1990-19-80A22:15:54.000Z BP Sitting (Pre-Dialysis) 113/73 mmHg BP Sitting (Post-Dialysis) 142/80 mmHg Concurrent Access: falseCentral Venous Catheter (CVC) Chest (Right) Arterial Sitting Heart Rate Pre-Dialysis 70 BPM Sitting H eart Rate Post-Dialysis 78 BPM Temperature Pre-Dialysis 97.8 degF Temperature Post -Dialysis 97.6 degF October 01, 2023 In-Center Hemodialysis Treatment 6236-18-26B20:31:00.000Z 2474-55-49F91:01:57.000Z BP Sitting (Pre-Dialysis) 135/80 mmHg BP Sitting (Post-Dialysis) 178/109 mmHg Concurrent Access: falseCentral Venous Catheter (CVC) Chest (Right) Arterial Sitting Heart Rate Pre-Dialysis 72 BPM Sitting H eart Rate Post-Dialysis 75 BPM Temperature Pre-Dialysis 98.7 degF Temperature Post -Dialysis 97.6 degF September 29, 2023 In-Center Hemodialysis Treatment [id number]:41:34.000Z 2374-67-37U51:13:39.000Z BP Sitting (Pre-Dialysis) 102/62 mmHg BP Sitting (Post-Dialysis) 148/94 mmHg Concurrent Access: falseCentral Venous Catheter (CVC) Chest (Right) Arterial Sitting Heart Rate Pre-Dialysis 74 BPM Sitting H eart Rate Post-Dialysis 70 BPM Temperature Pre-Dialysis 97.2 degF Temperature Post -Dialysis 97.6 degF September 27, 2023 In-Center Hemodialysis Treatment 4697-09-83Q60:25:00.000Z 9384-67-61I01:57:04.000Z BP Sitting (Pre-Dialysis) 116/74 mmHg BP Sitting (Post-Dialysis) 147/86 mmHg Concurrent Access: falseCentral Venous Catheter (CVC) Chest (Right) Arterial Sitting Heart Rate Pre-Dialysis 82 BPM Sitting H eart Rate Post-Dialysis 73 BPM Temperature Pre-Dialysis 97.2 degF Temperature Post -Dialysis 97.8 degF September 24, 2023 In-Center Hemodialysis Treatment 3315-27-82Z16:11:07.000Z 1353-29-27H29:38:13.000Z BP Sitting (Pre-Dialysis) 134/85 mmHg BP Sitting (Post-Dialysis) 146/87 mmHg Concurrent Access: falseCentral Venous Catheter (CVC) Chest (Right) Arterial Sitting Heart Rate Pre-Dialysis 62 BPM BP Standing (Post-Dialysis) 136/87 mmHg Temperature Pre-Dialysis 97.2 degF Sitting Heart Ra te Post-Dialysis 83 BPM Standing Heart Rate Post-Sheri lysis 70 BPM Temperature Post-Dialysis 97 .2 degF September 22, 2023 In-Center Hemodialysis Treatment 6857-34-69R01:29:00.000Z 5331-45-90A89:42:59.000Z BP Sitting (Pre-Dialysis) 120/78 mmHg BP Sitting (Post-Dialysis) 168/89 mmHg Concurrent Access: falseCentral Venous Catheter (CVC) Chest (Right) Arterial Sitting Heart Rate Pre-Dialysis 75 BPM Sitting H eart Rate Post-Dialysis 66 BPM Temperature Pre-Dialysis 97.7 degF Temperature Post -Dialysis 97.2 degF September 20, 2023 In-Center Hemodialysis Treatment 5349-58-65W78:22:44.000Z 3267-22-41F58:56:29.000Z BP Sitting (Pre-Dialysis) 132/81 mmHg BP Sitting (Post-Dialysis) 152/90 mmHg Concurrent Access: falseCentral Venous Catheter (CVC) Chest (Right) Arterial Sitting Heart Rate Pre-Dialysis 71 BPM BP Standing (Post-Dialysis) 140/91 mmHg Temperature Pre-Dialysis 98.2 degF Sitting Heart Ra te Post-Dialysis 69 BPM Standing Heart Rate Post-Sheri lysis 99 BPM Temperature Post-Dialysis 97 .4 degF September 17, 2023 In-Center Hemodialysis Treatment 3839-07-90G98:45:58.000Z 5576-80-90S49:18:28.000Z BP Sitting (Pre-Dialysis) 142/85 mmHg BP Sitting (Post-Dialysis) 147/83 mmHg Concurrent Access: falseCentral Venous Catheter (CVC) Chest (Right) Arterial Sitting Heart Rate Pre-Dialysis 67 BPM Sitting H eart Rate Post-Dialysis 80 BPM Temperature Pre-Dialysis 97.7 degF Temperature Post -Dialysis 97.2 degF September 15, 2023 In-Center Hemodialysis Treatment 0470-67-76Z72:24:11.000Z 8420-15-10R23:55:01.000Z BP Sitting (Pre-Dialysis) 109/63 mmHg BP Sitting (Post-Dialysis) 137/80 mmHg Concurrent Access: falseCentral Venous Catheter (CVC) Chest (Right) Arterial BP Standing (Pre-Dialysis) 110/64 mmHg BP Standing (P ost-Dialysis) 126/72 mmHg Sitting Heart Rate Pre-Dialysis 72 BPM Sitting Heart Rate Post-Dialysis 71 BPM Standing Heart Rate Pre-Dialysis 74 BPM Standing Heart Rate Post-Dialysis 72 BPM Temperature Pre-Dialysis 97.2 degF Temperature Post -Dialysis 97.8 degF September 13, 2023 In-Center Hemodialysis Treatment 5537-62-95D26:40:00.000Z 7518-30-58V54:03:58.000Z BP Sitting (Pre-Dialysis) 119/57 mmHg BP Sitting (Post-Dialysis) 136/84 mmHg Concurrent Access: falseCentral Venous Catheter (CVC) Chest (Right) Arterial BP Standing (Pre-Dialysis) 125/68 mmHg BP Standing (P ost-Dialysis) 150/102 mmHg Sitting Heart Rate Pre-Dialysis 79 BPM Sitting Heart Rate Post-Dialysis 66 BPM Standing Heart Rate Pre-Dialysis 80 BPM Standing Heart Rate Post-Dialysis 77 BPM Temperature Pre-Dialysis 97.9 degF Temperature Post -Dialysis 97.6 degF September 10, 2023 In-Center Hemodialysis Treatment 3032-13-90E54:01:21.000Z 4591-79-60R04:30:56.000Z BP Sitting (Pre-Dialysis) 135/84 mmHg BP Sitting (Post-Dialysis) 140/84 mmHg Concurrent Access: falseCentral Venous Catheter (CVC) Chest (Right) Arterial Sitting Heart Rate Pre-Dialysis 75 BPM BP Standing (Post-Dialysis) 148/94 mmHg Temperature Pre-Dialysis 97.5 degF Sitting Heart Ra te Post-Dialysis 78 BPM Standing Heart Rate Post-Sheri lysis 78 BPM Temperature Post-Dialysis 97 .2 degF September 08, 2023 In-Center Hemodialysis Treatment 5299-03-31D46:22:33.000Z 7486-86-07H54:54:13.000Z BP Sitting (Pre-Dialysis) 135/67 mmHg BP Sitting (Post-Dialysis) 139/86 mmHg Concurrent Access: falseCentral Venous Catheter (CVC) Chest (Right) Arterial Sitting Heart Rate Pre-Dialysis 72 BPM BP Standing (Post-Dialysis) 123/76 mmHg Temperature Pre-Dialysis 97.7 degF Sitting Heart Ra te Post-Dialysis 67 BPM Standing Heart Rate Post-Sheri lysis 101 BPM Temperature Post-Dialysis 97 .8 degF September 06, 2023 In-Center Hemodialysis Treatment 0290-56-95E89:42:05.000Z 3970-49-04L69:14:10.000Z BP Sitting (Pre-Dialysis) 137/85 mmHg BP Sitting (Post-Dialysis) 167/100 mmHg Concurrent Access: falseCentral Venous Catheter (CVC) Chest (Right) Arterial Sitting Heart Rate Pre-Dialysis 80 BPM BP Standing (Post-Dialysis) 138/72 mmHg Temperature Pre-Dialysis 97.2 degF Sitting Heart Ra te Post-Dialysis 77 BPM Standing Heart Rate Post-Sheri lysis 106 BPM Temperature Post-Dialysis 97 .4 degF September 03, 2023 In-Center Hemodialysis Treatment 1776-17-43P95:24:56.000Z 0358-98-55Z17:57:26.000Z BP Sitting (Pre-Dialysis) 159/95 mmHg BP Sitting (Post-Dialysis) 151/111 mmHg Concurrent Access: falseCentral Venous Catheter (CVC) Chest (Right) Arterial Sitting Heart Rate Pre-Dialysis 62 BPM Sitting H eart Rate Post-Dialysis 76 BPM Temperature Pre-Dialysis 97 degF Temperature Post -Dialysis 97.8 degF September 01, 2023 In-Center Hemodialysis Treatment 0764-16-51V18:42:34.000Z 5240-95-74V04:42:59.000Z BP Sitting (Pre-Dialysis) 119/72 mmHg BP Sitting (Post-Dialysis) 143/89 mmHg Concurrent Access: falseCentral Venous Catheter (CVC) Chest (Right) Arterial Sitting Heart Rate Pre-Dialysis 82 BPM Sitting H eart Rate Post-Dialysis 74 BPM Temperature Pre-Dialysis 97.2 degF Temperature Post -Dialysis 97.5 degF August 30, 2023 In-Center Hemodialysis Treatment 5504-95-47J60:44:01.000Z 4855-54-44V62:15:16.000Z BP Sitting (Pre-Dialysis) 149/88 mmHg BP Sitting (Post-Dialysis) 160/95 mmHg Concurrent Access: falseCentral Venous Catheter (CVC) Chest (Right) Arterial Sitting Heart Rate Pre-Dialysis 69 BPM Sitting H eart Rate Post-Dialysis 66 BPM Temperature Pre-Dialysis 97.2 degF Temperature Post -Dialysis 97.4 degF August 27, 2023 In-Center Hemodialysis Treatment 9920-07-67U65:40:00.000Z 9810-47-44Q80:14:16.000Z BP Sitting (Pre-Dialysis) 146/82 mmHg BP Sitting (Post-Dialysis) 135/62 mmHg Concurrent Access: falseCentral Venous Catheter (CVC) Chest (Right) Arterial Sitting Heart Rate Pre-Dialysis 86 BPM Sitting H eart Rate Post-Dialysis 77 BPM Temperature Pre-Dialysis 98.1 degF Temperature Post -Dialysis 97.2 degF August 25, 2023 In-Center Hemodialysis Treatment 5704-33-53G57:36:55.000Z 6422-59-25C38:06:55.000Z BP Sitting (Pre-Dialysis) 128/78 mmHg BP Sitting (Post-Dialysis) 153/94 mmHg Concurrent Access: falseCentral Venous Catheter (CVC) Chest (Right) Arterial Sitting Heart Rate Pre-Dialysis 73 BPM Sitting H eart Rate Post-Dialysis 64 BPM Temperature Pre-Dialysis 97.2 degF Temperature Post -Dialysis 97.4 degF August 23, 2023 In-Center Hemodialysis Treatment 3703-50-44V67:24:00.000Z 9083-73-02Y54:57:26.000Z BP Sitting (Pre-Dialysis) 119/80 mmHg BP Sitting (Post-Dialysis) 136/79 mmHg Concurrent Access: falseCentral Venous Catheter (CVC) Chest (Right) Arterial Sitting Heart Rate Pre-Dialysis 74 BPM Sitting H eart Rate Post-Dialysis 64 BPM Temperature Pre-Dialysis 97.6 degF Temperature Post -Dialysis 97.6 degF August 20, 2023 In-Center Hemodialysis Treatment 8151-75-60U63:36:00.000Z 9417-88-34T10:09:24.000Z BP Sitting (Pre-Dialysis) 108/69 mmHg BP Sitting (Post-Dialysis) 117/81 mmHg Concurrent Access: falseCentral Venous Catheter (CVC) Chest (Right) Arterial Sitting Heart Rate Pre-Dialysis 92 BPM Sitting H eart Rate Post-Dialysis 71 BPM Temperature Pre-Dialysis 97.4 degF Temperature Post -Dialysis 97.8 degF August 18, 2023 In-Center Hemodialysis Treatment 2314-64-14Q43:30:46.000Z 0389-01-66N06:01:11.000Z BP Sitting (Pre-Dialysis) 99/69 mmHg BP Sitting (Post-Dialysis) 120/82 mmHg Concurrent Access: falseCentral Venous Catheter (CVC) Chest (Right) Arterial Sitting Heart Rate Pre-Dialysis 64 BPM Sitting H eart Rate Post-Dialysis 79 BPM Temperature Pre-Dialysis 97.2 degF Temperature Post -Dialysis 97.2 degF August 16, 2023 In-Center Hemodialysis Treatment 2084-19-28S65:04:00.000Z 3009-81-38W02:38:22.000Z BP Sitting (Pre-Dialysis) 109/71 mmHg BP Sitting (Post-Dialysis) 131/78 mmHg Concurrent Access: falseCentral Venous Catheter (CVC) Chest (Right) Arterial Sitting Heart Rate Pre-Dialysis 79 BPM Sitting H eart Rate Post-Dialysis 70 BPM Temperature Pre-Dialysis 97.7 degF Temperature Post -Dialysis 97.8 degF August 11, 2023 In-Center Hemodialysis Treatment 6823-16-35R92:59:34.000Z 5769-65-13O60:59:09.000Z BP Sitting (Pre-Dialysis) 94/65 mmHg BP Sitting (Post-Dialysis) 136/77 mmHg Concurrent Access: falseCentral Venous Catheter (CVC) Chest (Right) Arterial Sitting Heart Rate Pre-Dialysis 72 BPM Sitting H eart Rate Post-Dialysis 77 BPM Temperature Pre-Dialysis 97.2 degF Temperature Post -Dialysis 97.9 degF August 09, 2023 In-Center Hemodialysis Treatment 3311-14-30A84:22:00.000Z 7104-11-53W33:23:35.000Z BP Sitting (Pre-Dialysis) 112/65 mmHg BP Sitting (Post-Dialysis) 118/84 mmHg Concurrent Access: falseCentral Venous Catheter (CVC) Chest (Right) Arterial Sitting Heart Rate Pre-Dialysis 76 BPM Sitting H eart Rate Post-Dialysis 78 BPM Temperature Pre-Dialysis 97.6 degF Temperature Post -Dialysis 97.8 degF July 23, 2023 In-Center Hemodialysis Treatment 4325-48-33V14:49:00.000Z 8025-77-10H42:23:14.000Z BP Sitting (Pre-Dialysis) 139/85 mmHg BP Sitting (Post-Dialysis) 169/101 mmHg Concurrent Access: falseCentral Venous Catheter (CVC) Chest (Right) Arterial BP Standing (Pre-Dialysis) 139/83 mmHg BP Standing (P ost-Dialysis) 146/99 mmHg Sitting Heart Rate Pre-Dialysis 80 BPM Sitting Heart Rate Post-Dialysis 83 BPM Standing Heart Rate Pre-Dialysis 79 BPM Standing Heart Rate Post-Dialysis 80 BPM Temperature Pre-Dialysis 97.7 degF Temperature Post -Dialysis 97.2 degF July 21, 2023 In-Center Hemodialysis Treatment 2252-21-11K01:38:00.000Z 2500-44-64W42:34:15.000Z BP Sitting (Pre-Dialysis) 126/76 mmHg BP Sitting (Post-Dialysis) 145/83 mmHg Concurrent Access: falseCentral Venous Catheter (CVC) Chest (Right) Arterial BP Standing (Pre-Dialysis) 130/84 mmHg Sitti ng Heart Rate Post-Dialysis 69 BPM Sitting Heart Rate Pre-Dialysis 84 BPM Temperatu re Post-Dialysis 98.2 degF Standing Heart Rate Pre-Dialysis 81 BPM Temperature Pre-Dialysis 97.7 degF July 19, 2023 In-Center Hemodialysis Treatment 1804-57-39N16:59:00.000Z 8214-10-76V24:30:06.000Z BP Sitting (Pre-Dialysis) 122/78 mmHg BP Sitting (Post-Dialysis) 160/83 mmHg Concurrent Access: falseCentral Venous Catheter (CVC) Chest (Right) Arterial Sitting Heart Rate Pre-Dialysis 67 BPM Sitting H eart Rate Post-Dialysis 53 BPM Temperature Pre-Dialysis 97.7 degF Temperature Post -Dialysis 97.8 degF July 16, 2023 In-Center Hemodialysis Treatment 0726-82-54C74:33:00.000Z 5925-01-44N60:10:22.000Z BP Sitting (Pre-Dialysis) 128/83 mmHg BP Sitting (Post-Dialysis) 134/90 mmHg Concurrent Access: falseCentral Venous Catheter (CVC) Chest (Right) Arterial BP Standing (Pre-Dialysis) 102/55 mmHg Sitti ng Heart Rate Post-Dialysis 81 BPM Sitting Heart Rate Pre-Dialysis 80 BPM Temperatu re Post-Dialysis 97.2 degF Standing Heart Rate Pre-Dialysis 63 BPM Temperature Pre-Dialysis 97.6 degF July 14, 2023 In-Center Hemodialysis Treatment 8389-02-76R19:33:00.000Z 6540-65-24F41:10:17.000Z BP Sitting (Pre-Dialysis) 137/77 mmHg BP Sitting (Post-Dialysis) 149/83 mmHg Concurrent Access: falseCentral Venous Catheter (CVC) Chest (Right) Arterial BP Standing (Pre-Dialysis) 143/82 mmHg Sitti ng Heart Rate Post-Dialysis 75 BPM Sitting Heart Rate Pre-Dialysis 69 BPM Temperatu re Post-Dialysis 98.2 degF Standing Heart Rate Pre-Dialysis 74 BPM Temperature Pre-Dialysis 97.9 degF July 09, 2023 In-Center Hemodialysis Treatment 8335-84-04G35:36:34.000Z 3046-89-97H32:07:24.000Z BP Sitting (Pre-Dialysis) 150/93 mmHg BP Sitting (Post-Dialysis) 170/95 mmHg Concurrent Access: falseCentral Venous Catheter (CVC) Chest (Right) Arterial BP Standing (Pre-Dialysis) 152/90 mmHg Sitti ng Heart Rate Post-Dialysis 69 BPM Sitting Heart Rate Pre-Dialysis 77 BPM Temperatu re Post-Dialysis 97.1 degF Standing Heart Rate Pre-Dialysis 75 BPM Temperature Pre-Dialysis 97.2 degF July 05, 2023 In-Center Hemodialysis Treatment 6410-60-00S06:43:00.000Z 5726-18-28W45:07:14.000Z BP Sitting (Pre-Dialysis) 173/97 mmHg BP Sitting (Post-Dialysis) 149/52 mmHg Concurrent Access: falseCentral Venous Catheter (CVC) Chest (Right) Arterial Sitting Heart Rate Pre-Dialysis 86 BPM Sitting H eart Rate Post-Dialysis 80 BPM Temperature Pre-Dialysis 97.9 degF Temperature Post -Dialysis 97.3 degF July 02, 2023 In-Center Hemodialysis Treatment 4165-62-46V05:54:00.000Z 6495-08-76H72:18:00.000Z BP Sitting (Pre-Dialysis) 153/89 mmHg BP Sitting (Post-Dialysis) 166/90 mmHg Concurrent Access: falseCentral Venous Catheter (CVC) Chest (Right) Arterial Sitting Heart Rate Pre-Dialysis 74 BPM BP Standing (Post-Dialysis) 156/92 mmHg Temperature Pre-Dialysis 97.5 degF Sitting Heart Ra te Post-Dialysis 71 BPM Standing Heart Rate Post-Sheri lysis 97 BPM Temperature Post-Dialysis 97 .3 degF June 30, 2023 In-Center Hemodialysis Treatment 5552-67-14N15:30:00.000Z 3520-63-53B51:02:50.000Z BP Sitting (Pre-Dialysis) 142/82 mmHg BP Sitting (Post-Dialysis) 147/92 mmHg Concurrent Access: falseCentral Venous Catheter (CVC) Chest (Right) Arterial BP Standing (Pre-Dialysis) 133/79 mmHg BP Standing (P ost-Dialysis) 151/93 mmHg Sitting Heart Rate Pre-Dialysis 84 BPM Sitting Heart Rate Post-Dialysis 85 BPM Standing Heart Rate Pre-Dialysis 85 BPM Standing Heart Rate Post-Dialysis 87 BPM Temperature Pre-Dialysis 97.5 degF Temperature Post -Dialysis 97.2 degF June 28, 2023 In-Center Hemodialysis Treatment 2662-02-85B58:32:00.000Z 9647-00-47E48:10:55.000Z BP Sitting (Pre-Dialysis) 147/87 mmHg BP Sitting (Post-Dialysis) 140/69 mmHg Concurrent Access: falseCentral Venous Catheter (CVC) Chest (Right) Arterial BP Standing (Pre-Dialysis) 119/69 mmHg BP Standing (P ost-Dialysis) 139/68 mmHg Sitting Heart Rate Pre-Dialysis 51 BPM Sitting Heart Rate Post-Dialysis 69 BPM Standing Heart Rate Pre-Dialysis 74 BPM Standing Heart Rate Post-Dialysis 62 BPM Temperature Pre-Dialysis 97.8 degF Temperature Post -Dialysis 98.2 degF June 25, 2023 In-Center Hemodialysis Treatment 4547-75-68T38:26:00.000Z 8900-06-84Q80:59:19.000Z BP Sitting (Pre-Dialysis) 134/79 mmHg BP Sitting (Post-Dialysis) 166/91 mmHg Concurrent Access: falseCentral Venous Catheter (CVC) Chest (Right) Arterial BP Standing (Pre-Dialysis) 124/82 mmHg BP Standing (P ost-Dialysis) 148/94 mmHg Sitting Heart Rate Pre-Dialysis 79 BPM Sitting Heart Rate Post-Dialysis 68 BPM Standing Heart Rate Pre-Dialysis 75 BPM Standing Heart Rate Post-Dialysis 69 BPM Temperature Pre-Dialysis 97.8 degF Temperature Post -Dialysis 97.6 degF June 23, 2023 In-Center Hemodialysis Treatment [id number]:54:25.000Z [id number]:24:50.000Z BP Sitting (Pre-Dialysis) 140/85 mmHg BP Sitting (Post-Dialysis) 149/94 mmHg Concurrent Access: falseCentral Venous Catheter (CVC) Chest (Right) Arterial BP Standing (Pre-Dialysis) 132/87 mmHg BP Standing (P ost-Dialysis) 158/71 mmHg Sitting Heart Rate Pre-Dialysis 65 BPM Sitting Heart Rate Post-Dialysis 65 BPM Standing Heart Rate Pre-Dialysis 66 BPM Standing Heart Rate Post-Dialysis 69 BPM Temperature Pre-Dialysis 97.2 degF Temperature Post -Dialysis 97.3 degF June 18, 2023 In-Center Hemodialysis Treatment [id number]:40:17.000Z 6511-51-90Z93:49:52.000Z BP Sitting (Pre-Dialysis) 124/79 mmHg BP Sitting (Post-Dialysis) 145/68 mmHg Concurrent Access: falseCentral Venous Catheter (CVC) Chest (Right) Arterial BP Standing (Pre-Dialysis) 118/72 mmHg BP Standing (P ost-Dialysis) 150/90 mmHg Sitting Heart Rate Pre-Dialysis 73 BPM Sitting Heart Rate Post-Dialysis 100 BPM Standing Heart Rate Pre-Dialysis 68 BPM Standing Heart Rate Post-Dialysis 99 BPM Temperature Pre-Dialysis 97.6 degF Temperature Post -Dialysis 97.2 degF June 16, 2023 In-Center Hemodialysis Treatment [id number]:37:00.000Z 5312-34-87T68:09:24.000Z BP Sitting (Pre-Dialysis) 126/83 mmHg BP Sitting (Post-Dialysis) 153/83 mmHg Concurrent Access: falseCentral Venous Catheter (CVC) Chest (Right) Arterial BP Standing (Pre-Dialysis) 132/78 mmHg BP Standing (P ost-Dialysis) 158/89 mmHg Sitting Heart Rate Pre-Dialysis 75 BPM Sitting Heart Rate Post-Dialysis 68 BPM Standing Heart Rate Pre-Dialysis 68 BPM Standing Heart Rate Post-Dialysis 62 BPM Temperature Pre-Dialysis 97.3 degF Temperature Post -Dialysis 97.6 degF June 14, 2023 In-Center Hemodialysis Treatment [id number]:34:00.000Z 9075-55-54P77:36:55.000Z BP Sitting (Pre-Dialysis) 148/85 mmHg BP Sitting (Post-Dialysis) 161/94 mmHg Concurrent Access: falseCentral Venous Catheter (CVC) Chest (Right) Arterial Sitting Heart Rate Pre-Dialysis 76 BPM BP Standing (Post-Dialysis) 148/98 mmHg Temperature Pre-Dialysis 97.6 degF Sitting Heart Ra te Post-Dialysis 66 BPM Standing Heart Rate Post-Sheri lysis 90 BPM Temperature Post-Dialysis 97 .6 degF June 11, 2023 In-Center Hemodialysis Treatment [id number]:56:00.000Z 6762-43-13A98:27:46.000Z BP Sitting (Pre-Dialysis) 145/85 mmHg BP Sitting (Post-Dialysis) 144/109 mmHg Concurrent Access: falseCentral Venous Catheter (CVC) Chest (Right) Arterial BP Standing (Pre-Dialysis) 148/87 mmHg Sitti ng Heart Rate Post-Dialysis 78 BPM Sitting Heart Rate Pre-Dialysis 74 BPM Temperatu re Post-Dialysis 97.8 degF Standing Heart Rate Pre-Dialysis 69 BPM Temperature Pre-Dialysis 97.6 degF June 09, 2023 In-Center Hemodialysis Treatment [id number]:50:17.000Z 2015-61-66Z03:20:42.000Z BP Sitting (Pre-Dialysis) 139/87 mmHg BP Sitting (Post-Dialysis) 144/85 mmHg Concurrent Access: falseCentral Venous Catheter (CVC) Chest (Right) Arterial Sitting Heart Rate Pre-Dialysis 63 BPM Sitting H eart Rate Post-Dialysis 100 BPM Temperature Pre-Dialysis 97.2 degF Temperature Post -Dialysis 97.2 degF June 07, 2023 In-Center Hemodialysis Treatment [id number]:56:10.000Z 6162-33-21S94:27:25.000Z BP Sitting (Pre-Dialysis) 105/65 mmHg BP Sitting (Post-Dialysis) 133/78 mmHg Concurrent Access: falseCentral Venous Catheter (CVC) Chest (Right) Arterial Sitting Heart Rate Pre-Dialysis 70 BPM Sitting H eart Rate Post-Dialysis 76 BPM Temperature Pre-Dialysis 97.2 degF Temperature Post -Dialysis 97.4 degF June 04, 2023 In-Center Hemodialysis Treatment 7436-73-11P67:29:01.000Z [id number]:06:14.000Z BP Sitting (Pre-Dialysis) 133/71 mmHg BP Sitting (Post-Dialysis) 118/72 mmHg Concurrent Access: falseCentral Venous Catheter (CVC) Chest (Right) Arterial BP Standing (Pre-Dialysis) 127/70 mmHg BP Standing (P ost-Dialysis) 124/56 mmHg Sitting Heart Rate Pre-Dialysis 69 BPM Sitting Heart Rate Post-Dialysis 85 BPM Standing Heart Rate Pre-Dialysis 68 BPM Standing Heart Rate Post-Dialysis 108 BPM Temperature Pre-Dialysis 97.7 degF Temperature Post -Dialysis 97.7 degF June 02, 2023 In-Center Hemodialysis Treatment 8770-67-21J49:24:26.000Z [id number]:55:16.000Z BP Sitting (Pre-Dialysis) 125/77 mmHg BP Sitting (Post-Dialysis) 125/80 mmHg Concurrent Access: falseCentral Venous Catheter (CVC) Chest (Right) Arterial BP Standing (Pre-Dialysis) 132/84 mmHg Sitting Heart Rate Post-Dialysis 77 BPM Sitting Heart Rate Pre-Dialysis 60 BPM Temperatu re Post-Dialysis 98 degF Standing Heart Rate Pre-Dialysis 59 BPM Temperature Pre-Dialysis 97.2 degF May 31, 2023 In-Center Hemodialysis Treatment [id number]:51:00.000Z 4588-31-77H97:53:39.000Z BP Sitting (Pre-Dialysis) 117/75 mmHg BP Sitting (Post-Dialysis) 154/87 mmHg Concurrent Access: falseCentral Venous Catheter (CVC) Chest (Right) Arterial Sitting Heart Rate Pre-Dialysis 74 BPM Sitting H eart Rate Post-Dialysis 88 BPM Temperature Pre-Dialysis 97 degF Temperature Post -Dialysis 98.2 degF May 28, 2023 In-Center Hemodialysis Treatment 8599-12-57A91:41:00.000Z 5590-99-17O21:13:36.000Z BP Sitting (Pre-Dialysis) 122/85 mmHg BP Sitting (Post-Dialysis) 129/80 mmHg Concurrent Access: falseCentral Venous Catheter (CVC) Chest (Right) Arterial BP Standing (Pre-Dialysis) 132/76 mmHg BP Standing (P ost-Dialysis) 118/85 mmHg Sitting Heart Rate Pre-Dialysis 70 BPM Sitting Heart Rate Post-Dialysis 69 BPM Standing Heart Rate Pre-Dialysis 68 BPM Standing Heart Rate Post-Dialysis 93 BPM Temperature Pre-Dialysis 97.2 degF Temperature Post -Dialysis 97 degF May 26, 2023 In-Center Hemodialysis Treatment [id number]:40:26.000Z 3126-84-33Z96:10:26.000Z BP Sitting (Pre-Dialysis) 135/88 mmHg BP Sitting (Post-Dialysis) 145/102 mmHg Concurrent Access: falseCentral Venous Catheter (CVC) Chest (Right) Arterial BP Standing (Pre-Dialysis) 163/87 mmHg BP Standing (P ost-Dialysis) 154/96 mmHg Sitting Heart Rate Pre-Dialysis 67 BPM Sitting Heart Rate Post-Dialysis 68 BPM Standing Heart Rate Pre-Dialysis 68 BPM Standing Heart Rate Post-Dialysis 82 BPM Temperature Pre-Dialysis 97.6 degF Temperature Post -Dialysis 97.2 degF May 24, 2023 In-Center Hemodialysis Treatment 8550-19-43Q80:57:50.000Z 8038-71-27V57:25:20.000Z BP Sitting (Pre-Dialysis) 157/86 mmHg BP Sitting (Post-Dialysis) 152/99 mmHg Concurrent Access: falseCentral Venous Catheter (CVC) Chest (Right) Arterial Sitting Heart Rate Pre-Dialysis 66 BPM Sitting H eart Rate Post-Dialysis 69 BPM Temperature Pre-Dialysis 97.7 degF Temperature Post -Dialysis 97.2 degF May 21, 2023 In-Center Hemodialysis Treatment 9843-09-54I11:21:00.000Z 2223-55-25M01:52:55.000Z BP Sitting (Pre-Dialysis) 125/82 mmHg BP Sitting (Post-Dialysis) 149/80 mmHg Concurrent Access: falseCentral Venous Catheter (CVC) Chest (Right) Arterial Sitting Heart Rate Pre-Dialysis 76 BPM BP Standing (Post-Dialysis) 136/84 mmHg Temperature Pre-Dialysis 98.1 degF Sitting Heart Ra te Post-Dialysis 74 BPM Standing Heart Rate Post-Sheri lysis 88 BPM Temperature Post-Dialysis 97 .4 degF May 19, 2023 In-Center Hemodialysis Treatment [id number]:50:35.000Z 0031-97-30Q26:21:25.000Z BP Sitting (Pre-Dialysis) 125/85 mmHg BP Sitting (Post-Dialysis) 99/55 mmHg Concurrent Access: falseCentral Venous Catheter (CVC) Chest (Right) Arterial BP Standing (Pre-Dialysis) 127/89 mmHg BP Standing (P ost-Dialysis) 115/70 mmHg Sitting Heart Rate Pre-Dialysis 64 BPM Sitting Heart Rate Post-Dialysis 74 BPM Standing Heart Rate Pre-Dialysis 64 BPM Temperature Post-Dialysis 97.2 degF Temperature Pre-Dialysis 97.8 degF May 17, 2023 In-Center Hemodialysis Treatment [id number]:44:00.000Z 9745-75-64R97:17:00.000Z BP Sitting (Pre-Dialysis) 117/66 mmHg BP Sitting (Post-Dialysis) 121/88 mmHg Concurrent Access: falseCentral Venous Catheter (CVC) Chest (Right) Arterial BP Standing (Pre-Dialysis) 138/81 mmHg BP Standing (P ost-Dialysis) 106/71 mmHg Sitting Heart Rate Pre-Dialysis 64 BPM Sitting Heart Rate Post-Dialysis 67 BPM Standing Heart Rate Pre-Dialysis 82 BPM Standing Heart Rate Post-Dialysis 90 BPM Temperature Pre-Dialysis 97.6 degF Temperature Post -Dialysis 98 degF May 14, 2023 In-Center Hemodialysis Treatment 6925-70-79C55:37:16.000Z 0758-14-25G37:21:26.000Z BP Sitting (Pre-Dialysis) 132/87 mmHg BP Sitting (Post-Dialysis) 136/78 mmHg Concurrent Access: falseCentral Venous Catheter (CVC) Chest (Right) Arterial BP Standing (Pre-Dialysis) 158/89 mmHg Sitti ng Heart Rate Post-Dialysis 98 BPM Sitting Heart Rate Pre-Dialysis 85 BPM Temperatu re Post-Dialysis 98.2 degF Standing Heart Rate Pre-Dialysis 80 BPM Temperature Pre-Dialysis 97.2 degF May 12, 2023 In-Center Hemodialysis Treatment 3072-64-60X51:43:00.000Z 7808-06-04I42:17:10.000Z BP Sitting (Pre-Dialysis) 138/90 mmHg BP Sitting (Post-Dialysis) 128/72 mmHg Concurrent Access: falseCentral Venous Catheter (CVC) Chest (Right) Arterial BP Standing (Pre-Dialysis) 147/89 mmHg Sitti ng Heart Rate Post-Dialysis 99 BPM Sitting Heart Rate Pre-Dialysis 85 BPM Temperatu re Post-Dialysis 98.2 degF Standing Heart Rate Pre-Dialysis 80 BPM Temperature Pre-Dialysis 98.1 degF May 10, 2023 In-Center Hemodialysis Treatment 4270-64-27N32:50:17.000Z 1163-02-60H62:26:07.000Z BP Sitting (Pre-Dialysis) 133/95 mmHg BP Sitting (Post-Dialysis) 118/75 mmHg Concurrent Access: falseCentral Venous Catheter (CVC) Chest (Right) Arterial BP Standing (Pre-Dialysis) 134/92 mmHg BP Standing (P ost-Dialysis) 120/85 mmHg Sitting Heart Rate Pre-Dialysis 75 BPM Sitting Heart Rate Post-Dialysis 102 BPM Standing Heart Rate Pre-Dialysis 79 BPM Standing Heart Rate Post-Dialysis 100 BPM Temperature Pre-Dialysis 97.2 degF Temperature Post -Dialysis 97.2 degF May 07, 2023 In-Center Hemodialysis Treatment 5568-55-01C48:31:00.000Z 4670-67-47P34:07:09.000Z BP Sitting (Pre-Dialysis) 121/77 mmHg BP Sitting (Post-Dialysis) 123/69 mmHg Concurrent Access: falseCentral Venous Catheter (CVC) Chest (Right) Arterial Sitting Heart Rate Pre-Dialysis 70 BPM BP Standi ng (Post-Dialysis) 13/71 mmHg Temperature Pre-Dialysis 97.5 degF Sitting Heart Ra te Post-Dialysis 70 BPM Standing Heart Rate Post-Sheri lysis 94 BPM Temperature Post-Dialysis 97 .2 degF May 05, 2023 In-Center Hemodialysis Treatment 3979-06-32A26:46:46.000Z [id number]:18:26.000Z BP Sitting (Pre-Dialysis) 142/68 mmHg BP Sitting (Post-Dialysis) 199/98 mmHg Concurrent Access: falseCentral Venous Catheter (CVC) Chest (Right) Arterial Sitting Heart Rate Pre-Dialysis 66 BPM Sitting H eart Rate Post-Dialysis 72 BPM Temperature Pre-Dialysis 97 degF Temperature Post -Dialysis 97.2 degF May 03, 2023 In-Center Hemodialysis Treatment 9880-44-75U01:58:27.000Z 2526-93-23D42:38:16.000Z BP Sitting (Pre-Dialysis) 159/65 mmHg BP Sitting (Post-Dialysis) 116/82 mmHg Concurrent Access: falseCentral Venous Catheter (CVC) Chest (Right) Arterial Sitting Heart Rate Pre-Dialysis 69 BPM BP Standing (Post-Dialysis) 110/62 mmHg Temperature Pre-Dialysis 97.2 degF Sitting Heart Ra te Post-Dialysis 78 BPM Standing Heart Rate Post-Sheri lysis 75 BPM Temperature Post-Dialysis 97 .8 degF April 30, 2023 In-Center Hemodialysis Treatment 0789-28-86D11:58:00.000Z 1853-59-22B74:35:39.000Z BP Sitting (Pre-Dialysis) 129/72 mmHg BP Sitting (Post-Dialysis) 141/67 mmHg Concurrent Access: falseCentral Venous Catheter (CVC) Chest (Right) Arterial BP Standing (Pre-Dialysis) 129/91 mmHg BP Standing (P ost-Dialysis) 140/67 mmHg Sitting Heart Rate Pre-Dialysis 79 BPM Sitting Heart Rate Post-Dialysis 72 BPM Standing Heart Rate Pre-Dialysis 72 BPM Standing Heart Rate Post-Dialysis 81 BPM Temperature Pre-Dialysis 97.8 degF Temperature Post -Dialysis 97.7 degF April 28, 2023 In-Center Hemodialysis Treatment [id number]:50:04.000Z 8419-69-43N60:22:25.000Z BP Sitting (Pre-Dialysis) 169/95 mmHg BP Sitting (Post-Dialysis) 157/99 mmHg Concurrent Access: falseCentral Venous Catheter (CVC) Chest (Right) Arterial BP Standing (Pre-Dialysis) 177/97 mmHg BP Standing (P ost-Dialysis) 155/80 mmHg Sitting Heart Rate Pre-Dialysis 78 BPM Sitting Heart Rate Post-Dialysis 89 BPM Standing Heart Rate Pre-Dialysis 77 BPM Standing Heart Rate Post-Dialysis 80 BPM Temperature Pre-Dialysis 97.3 degF Temperature Post -Dialysis 97.2 degF April 26, 2023 In-Center Hemodialysis Treatment 8183-55-18K16:33:00.000Z 7314-03-79U64:07:14.000Z BP Sitting (Pre-Dialysis) 127/83 mmHg BP Sitting (Post-Dialysis) 153/92 mmHg Concurrent Access: falseCentral Venous Catheter (CVC) Chest (Right) Arterial Sitting Heart Rate Pre-Dialysis 93 BPM BP Standing (Post-Dialysis) 150/89 mmHg Temperature Pre-Dialysis 97.4 degF Sitting Heart Ra te Post-Dialysis 78 BPM Standing Heart Rate Post-Sheri lysis 75 BPM Temperature Post-Dialysis 97 .2 degF April 23, 2023 In-Center Hemodialysis Treatment 8957-93-12R81:34:00.000Z 2699-82-24X11:04:59.000Z BP Sitting (Pre-Dialysis) 119/55 mmHg BP Sitting (Post-Dialysis) 123/93 mmHg Concurrent Access: falseCentral Venous Catheter (CVC) Chest (Right) Arterial Sitting Heart Rate Pre-Dialysis 87 BPM Sitting H eart Rate Post-Dialysis 93 BPM Temperature Pre-Dialysis 97.3 degF Temperature Post -Dialysis 97.2 degF April 21, 2023 In-Center Hemodialysis Treatment 7871-33-11U05:54:00.000Z 1374-61-19R57:34:21.000Z BP Sitting (Pre-Dialysis) 145/102 mmHg BP Sitting (Post-Dialysis) 119/73 mmHg Concurrent Access: falseCentral Venous Catheter (CVC) Chest (Right) Arterial Sitting Heart Rate Pre-Dialysis 61 BPM BP Standing (Post-Dialysis) 150/100 mmHg Temperature Pre-Dialysis 98.1 degF Sitting Heart Ra te Post-Dialysis 78 BPM Standing Heart R ate Post-Dialysis 70 BPM Temperature Post-Dialysis 97 .6 degF April 14, 2023 In-Center Hemodialysis Treatment [id number]:47:00.000Z 6635-22-05L18:08:08.000Z BP Sitting (Pre-Dialysis) 144/82 mmHg BP Sitting (Post-Dialysis) 120/76 mmHg Concurrent Access: falseCentral Venous Catheter (CVC) Chest (Right) Arterial BP Standing (Pre-Dialysis) 134/83 mmHg Sitti ng Heart Rate Post-Dialysis 79 BPM Sitting Heart Rate Pre-Dialysis 74 BPM Temperatu re Post-Dialysis 97.5 degF Standing Heart Rate Pre-Dialysis 72 BPM Temperature Pre-Dialysis 97.8 degF April 12, 2023 In-Center Hemodialysis Treatment 3888-33-22Y20:49:00.000Z 9662-78-03T21:59:34.000Z BP Sitting (Pre-Dialysis) 146/82 mmHg BP Sitting (Post-Dialysis) 134/80 mmHg Concurrent Access: falseCentral Venous Catheter (CVC) Chest (Right) Arterial Sitting Heart Rate Pre-Dialysis 77 BPM BP Standing (Post-Dialysis) 150/114 mmHg Temperature Pre-Dialysis 97.6 degF Sitting Heart Ra te Post-Dialysis 77 BPM Standing Heart R ate Post-Dialysis 99 BPM Temperature Post-Dialysis 97 .4 degF April 09, 2023 In-Center Hemodialysis Treatment 0172-55-34P53:48:00.000Z 4684-16-38M16:23:24.000Z BP Sitting (Pre-Dialysis) 142/68 mmHg BP Sitting (Post-Dialysis) 135/83 mmHg Concurrent Access: falseCentral Venous Catheter (CVC) Chest (Right) Arterial BP Standing (Pre-Dialysis) 134/77 mmHg BP Standing (P ost-Dialysis) 103/71 mmHg Sitting Heart Rate Pre-Dialysis 86 BPM Sitting Heart Rate Post-Dialysis 66 BPM Standing Heart Rate Pre-Dialysis 85 BPM Standing Heart Rate Post-Dialysis 99 BPM Temperature Pre-Dialysis 97.3 degF Temperature Post -Dialysis 97.4 degF April 07, 2023 In-Center Hemodialysis Treatment 9460-31-85M99:30:00.000Z 7682-29-45R40:10:37.000Z BP Sitting (Pre-Dialysis) 126/81 mmHg BP Sitting (Post-Dialysis) 108/51 mmHg Concurrent Access: falseCentral Venous Catheter (CVC) Chest (Right) Arterial Sitting Heart Rate Pre-Dialysis 69 BPM Sitting H eart Rate Post-Dialysis 59 BPM Temperature Pre-Dialysis 98.2 degF Temperature Post -Dialysis 97.2 degF April 05, 2023 In-Center Hemodialysis Treatment 2136-74-49K63:00:00.000Z 0518-01-29R46:38:06.000Z BP Sitting (Pre-Dialysis) 123/86 mmHg BP Sitting (Post-Dialysis) 159/77 mmHg Concurrent Access: falseCentral Venous Catheter (CVC) Chest (Right) Arterial Sitting Heart Rate Pre-Dialysis 74 BPM Sitting H eart Rate Post-Dialysis 54 BPM Temperature Pre-Dialysis 97.2 degF Temperature Post -Dialysis 97.7 degF April 02, 2023 In-Center Hemodialysis Treatment 1289-32-01U45:55:00.000Z 2685-84-92Y96:36:30.000Z BP Sitting (Pre-Dialysis) 98/50 mmHg BP Sitting (Post-Dialysis) 136/78 mmHg Concurrent Access: falseCentral Venous Catheter (CVC) Chest (Right) Arterial BP Standing (Pre-Dialysis) 128/70 mmHg Sitti ng Heart Rate Post-Dialysis 78 BPM Sitting Heart Rate Pre-Dialysis 79 BPM Temperatu re Post-Dialysis 98.2 degF Standing Heart Rate Pre-Dialysis 78 BPM Temperature Pre-Dialysis 98.2 degF March 31, 2023 In-Center Hemodialysis Treatment 8953-05-90R23:03:41.000Z 7744-97-19S11:34:56.000Z BP Sitting (Pre-Dialysis) 128/72 mmHg BP Sitting (Post-Dialysis) 122/69 mmHg Concurrent Access: falseCentral Venous Catheter (CVC) Chest (Right) Arterial Sitting Heart Rate Pre-Dialysis 64 BPM Sitting H eart Rate Post-Dialysis 78 BPM Temperature Pre-Dialysis 97.7 degF Temperature Post -Dialysis 98.2 degF March 29, 2023 In-Center Hemodialysis Treatment 6258-56-83E17:37:00.000Z 4484-74-01U85:05:43.000Z BP Sitting (Pre-Dialysis) 120/62 mmHg BP Sitting (Post-Dialysis) 128/90 mmHg Concurrent Access: falseCentral Venous Catheter (CVC) Chest (Right) Arterial BP Standing (Pre-Dialysis) 130/58 mmHg BP Standing (P ost-Dialysis) 119/75 mmHg Sitting Heart Rate Pre-Dialysis 70 BPM Sitting Heart Rate Post-Dialysis 78 BPM Standing Heart Rate Pre-Dialysis 72 BPM Standing Heart Rate Post-Dialysis 70 BPM Temperature Pre-Dialysis 97.7 degF Temperature Post -Dialysis 97.7 degF March 26, 2023 In-Center Hemodialysis Treatment 7200-17-68X12:39:00.000Z 3937-53-53U35:16:24.000Z BP Sitting (Pre-Dialysis) 130/84 mmHg BP Sitting (Post-Dialysis) 154/90 mmHg Concurrent Access: falseCentral Venous Catheter (CVC) Chest (Right) Arterial BP Standing (Pre-Dialysis) 122/79 mmHg BP Standing (P ost-Dialysis) 169/87 mmHg Sitting Heart Rate Pre-Dialysis 78 BPM Sitting Heart Rate Post-Dialysis 70 BPM Standing Heart Rate Pre-Dialysis 80 BPM Standing Heart Rate Post-Dialysis 70 BPM Temperature Pre-Dialysis 97.7 degF Temperature Post -Dialysis 98.2 degF March 24, 2023 In-Center Hemodialysis Treatment 2853-65-04O19:13:42.000Z 9187-94-01U62:40:47.000Z BP Sitting (Pre-Dialysis) 126/80 mmHg BP Sitting (Post-Dialysis) 162/95 mmHg Concurrent Access: falseCentral Venous Catheter (CVC) Chest (Right) Arterial Sitting Heart Rate Pre-Dialysis 85 BPM BP Standing (Post-Dialysis) 170/93 mmHg Temperature Pre-Dialysis 97.2 degF Sitting Heart Ra te Post-Dialysis 73 BPM Standing Heart Rate Post-Sheri lysis 78 BPM Temperature Post-Dialysis 97 .7 degF March 22, 2023 In-Center Hemodialysis Treatment [id number]:54:00.000Z 1696-75-80H29:39:53.000Z BP Sitting (Pre-Dialysis) 131/81 mmHg BP Sitting (Post-Dialysis) 172/96 mmHg Concurrent Access: falseCentral Venous Catheter (CVC) Chest (Right) Arterial BP Standing (Pre-Dialysis) 151/82 mmHg Sitti ng Heart Rate Post-Dialysis 96 BPM Sitting Heart Rate Pre-Dialysis 77 BPM Temperatu re Post-Dialysis 97.7 degF Standing Heart Rate Pre-Dialysis 77 BPM Temperature Pre-Dialysis 97.7 degF March 19, 2023 In-Center Hemodialysis Treatment 9566-14-27H74:48:00.000Z 4511-15-73F66:19:50.000Z BP Sitting (Pre-Dialysis) 136/77 mmHg BP Sitting (Post-Dialysis) 125/80 mmHg Concurrent Access: falseCentral Venous Catheter (CVC) Chest (Right) Arterial BP Standing (Pre-Dialysis) 141/99 mmHg BP Standing (P ost-Dialysis) 127/84 mmHg Sitting Heart Rate Pre-Dialysis 78 BPM Sitting Heart Rate Post-Dialysis 77 BPM Standing Heart Rate Pre-Dialysis 85 BPM Standing Heart Rate Post-Dialysis 79 BPM Temperature Pre-Dialysis 97.6 degF Temperature Post -Dialysis 97.4 degF March 17, 2023 In-Center Hemodialysis Treatment 0881-10-21K44:56:57.000Z 2482-42-13P04:54:27.000Z BP Sitting (Pre-Dialysis) 120/56 mmHg BP Sitting (Post-Dialysis) 146/79 mmHg Concurrent Access: falseCentral Venous Catheter (CVC) Chest (Right) Arterial Sitting Heart Rate Pre-Dialysis 63 BPM Sitting H eart Rate Post-Dialysis 73 BPM Temperature Pre-Dialysis 97.2 degF Temperature Post -Dialysis 97.7 degF March 15, 2023 In-Center Hemodialysis Treatment 9307-47-48W90:41:52.000Z 6041-65-19J71:15:12.000Z BP Sitting (Pre-Dialysis) 157/85 mmHg BP Sitting (Post-Dialysis) 179/100 mmHg Concurrent Access: falseCentral Venous Catheter (CVC) Chest (Right) Arterial BP Standing (Pre-Dialysis) 141/86 mmHg BP Standing (P ost-Dialysis) 119/79 mmHg Sitting Heart Rate Pre-Dialysis 72 BPM Sitting Heart Rate Post-Dialysis 71 BPM Standing Heart Rate Pre-Dialysis 74 BPM Standing Heart Rate Post-Dialysis 94 BPM Temperature Pre-Dialysis 97.7 degF Temperature Post -Dialysis 97.5 degF March 13, 2023 In-Center Hemodialysis Treatment 3526-07-13X70:01:00.000Z 3356-56-41C05:44:41.000Z BP Sitting (Pre-Dialysis) 146/85 mmHg BP Sitting (Post-Dialysis) 154/71 mmHg Concurrent Access: falseCentral Venous Catheter (CVC) Chest (Right) Arterial Sitting Heart Rate Pre-Dialysis 85 BPM BP Standing (Post-Dialysis) 151/82 mmHg Temperature Pre-Dialysis 97.6 degF Sitting Heart Ra te Post-Dialysis 78 BPM Standing Heart Rate Post-Sheri lysis 75 BPM Temperature Post-Dialysis 97 .7 degF March 10, 2023 In-Center Hemodialysis Treatment 6308-33-01H85:46:28.000Z 5008-84-36V97:16:03.000Z BP Sitting (Pre-Dialysis) 126/94 mmHg BP Sitting (Post-Dialysis) 149/89 mmHg Concurrent Access: falseCentral Venous Catheter (CVC) Chest (Right) Arterial Sitting Heart Rate Pre-Dialysis 87 BPM BP Standing (Post-Dialysis) 138/75 mmHg Temperature Pre-Dialysis 97.2 degF Sitting Heart Ra te Post-Dialysis 80 BPM Standing Heart Rate Post-Sheri lysis 97 BPM Temperature Post-Dialysis 97 .7 degF March 08, 2023 In-Center Hemodialysis Treatment 2545-09-16N29:04:33.000Z 7977-77-88C36:32:03.000Z BP Sitting (Pre-Dialysis) 91/55 mmHg BP Sitting (Post-Dialysis) 99/56 mmHg Concurrent Access: falseCentral Venous Catheter (CVC) Chest (Right) Arterial Sitting Heart Rate Pre-Dialysis 64 BPM Sitting H eart Rate Post-Dialysis 78 BPM Temperature Pre-Dialysis 97.6 degF Temperature Post -Dialysis 97.6 degF March 05, 2023 In-Center Hemodialysis Treatment [id number]:19:00.000Z 5259-19-46O69:44:14.000Z BP Sitting (Pre-Dialysis) 137/78 mmHg BP Sitting (Post-Dialysis) 133/84 mmHg Concurrent Access: falseCentral Venous Catheter (CVC) Chest (Right) Arterial BP Standing (Pre-Dialysis) 134/65 mmHg BP Standing (P ost-Dialysis) 140/86 mmHg Sitting Heart Rate Pre-Dialysis 82 BPM Sitting Heart Rate Post-Dialysis 88 BPM Standing Heart Rate Pre-Dialysis 81 BPM Standing Heart Rate Post-Dialysis 88 BPM Temperature Pre-Dialysis 97 degF Temperature Post -Dialysis 98.3 degF March 03, 2023 In-Center Hemodialysis Treatment 9094-84-56J41:56:00.000Z 3715-77-43P72:01:51.000Z BP Sitting (Pre-Dialysis) 145/80 mmHg BP Sitting (Post-Dialysis) 153/89 mmHg Concurrent Access: falseCentral Venous Catheter (CVC) Chest (Right) Arterial Sitting Heart Rate Pre-Dialysis 78 BPM BP Standing (Post-Dialysis) 129/83 mmHg Temperature Pre-Dialysis 97.7 degF Sitting Heart Ra te Post-Dialysis 79 BPM Standing Heart Rate Post-Sheri lysis 75 BPM Temperature Post-Dialysis 97 .6 degF February 28, 2023 In-Center Hemodialysis Treatment 7013-33-04H61:17:00.000Z 7829-22-99S36:16:03.000Z BP Sitting (Pre-Dialysis) 126/78 mmHg BP Sitting (Post-Dialysis) 149/82 mmHg Concurrent Access: falseCentral Venous Catheter (CVC) Chest (Right) Arterial BP Standing (Pre-Dialysis) 126/70 mmHg Sitti ng Heart Rate Post-Dialysis 84 BPM Sitting Heart Rate Pre-Dialysis 87 BPM Temperatu re Post-Dialysis 97.6 degF Standing Heart Rate Pre-Dialysis 86 BPM Temperature Pre-Dialysis 97.6 degF February 26, 2023 In-Center Hemodialysis Treatment 0047-09-70E78:12:00.000Z 9245-02-86F93:55:26.000Z BP Sitting (Pre-Dialysis) 120/89 mmHg BP Sitting (Post-Dialysis) 122/83 mmHg Concurrent Access: falseCentral Venous Catheter (CVC) Chest (Right) Arterial BP Standing (Pre-Dialysis) 133/90 mmHg BP Standing (P ost-Dialysis) 111/76 mmHg Sitting Heart Rate Pre-Dialysis 84 BPM Sitting Heart Rate Post-Dialysis 83 BPM Standing Heart Rate Pre-Dialysis 77 BPM Standing Heart Rate Post-Dialysis 102 BPM Temperature Pre-Dialysis 98.1 degF Temperature Post -Dialysis 97.6 degF February 24, 2023 In-Center Hemodialysis Treatment [id number]:58:00.000Z 0077-90-27V73:14:00.000Z BP Sitting (Pre-Dialysis) 110/54 mmHg BP Sitting (Post-Dialysis) 137/85 mmHg Concurrent Access: falseCentral Venous Catheter (CVC) Chest (Right) Arterial BP Standing (Pre-Dialysis) 140/76 mmHg BP Standing (P ost-Dialysis) 113/73 mmHg Sitting Heart Rate Pre-Dialysis 78 BPM Sitting Heart Rate Post-Dialysis 76 BPM Standing Heart Rate Pre-Dialysis 72 BPM Standing Heart Rate Post-Dialysis 80 BPM Temperature Pre-Dialysis 97.3 degF Temperature Post -Dialysis 98 degF February 21, 2023 In-Center Hemodialysis Treatment [id number]:30:00.000Z [id number]:32:25.000Z BP Sitting (Pre-Dialysis) 110/62 mmHg BP Sitting (Post-Dialysis) 141/89 mmHg Concurrent Access: falseCentral Venous Catheter (CVC) Chest (Right) Arterial Sitting Heart Rate Pre-Dialysis 84 BPM Sitting H eart Rate Post-Dialysis 80 BPM Temperature Pre-Dialysis 97.6 degF Temperature Post -Dialysis 98.2 degF February 19, 2023 In-Center Hemodialysis Treatment [id number]:33:39.000Z [id number]:44:29.000Z BP Sitting (Pre-Dialysis) 145/86 mmHg BP Sitting (Post-Dialysis) 136/87 mmHg Concurrent Access: falseCentral Venous Catheter (CVC) Chest (Right) Arterial Sitting Heart Rate Pre-Dialysis 86 BPM Sitting H eart Rate Post-Dialysis 80 BPM Temperature Pre-Dialysis 97.2 degF Temperature Post -Dialysis 97.2 degF February 17, 2023 In-Center Hemodialysis Treatment [id number]:21:00.000Z [id number]:50:41.000Z BP Sitting (Pre-Dialysis) 134/87 mmHg BP Sitting (Post-Dialysis) 137/78 mmHg Concurrent Access: falseCentral Venous Catheter (CVC) Chest (Right) Arterial BP Standing (Pre-Dialysis) 158/78 mmHg BP Standing (P ost-Dialysis) 114/70 mmHg Sitting Heart Rate Pre-Dialysis 86 BPM Sitting Heart Rate Post-Dialysis 80 BPM Standing Heart Rate Pre-Dialysis 112 BPM Standing Heart Rate Post-Dialysis 94 BPM Temperature Pre-Dialysis 97.3 degF Temperature Post -Dialysis 97.9 degF February 10, 2023 In-Center Hemodialysis Treatment [id number]:25:08.000Z [id number]:00:08.000Z BP Sitting (Pre-Dialysis) 185/98 mmHg BP Sitting (Post-Dialysis) 159/117 mmHg Concurrent Access: falseCentral Venous Catheter (CVC) Chest (Right) Arterial BP Standing (Pre-Dialysis) 189/99 mmHg Sitti ng Heart Rate Post-Dialysis 79 BPM Sitting Heart Rate Pre-Dialysis 75 BPM Temperatu re Post-Dialysis 97.7 degF Standing Heart Rate Pre-Dialysis 69 BPM Temperature Pre-Dialysis 98 degF February 08, 2023 In-Center Hemodialysis Treatment [id number]:04:00.000Z [id number]:54:00.000Z BP Sitting (Pre-Dialysis) 151/95 mmHg BP Sitting (Post-Dialysis) 150/96 mmHg Concurrent Access: falseCentral Venous Catheter (CVC) Chest (Right) Arterial BP Standing (Pre-Dialysis) 163/88 mmHg Sitti ng Heart Rate Post-Dialysis 84 BPM Sitting Heart Rate Pre-Dialysis 93 BPM Temperatu re Post-Dialysis 97.7 degF Standing Heart Rate Pre-Dialysis 93 BPM Temperature Pre-Dialysis 97.6 degF February 05, 2023 In-Center Hemodialysis Treatment [id number]:55:00.000Z [id number]:14:32.000Z BP Sitting (Pre-Dialysis) 136/98 mmHg BP Sitting (Post-Dialysis) 143/99 mmHg Concurrent Access: falseCentral Venous Catheter (CVC) Chest (Right) Arterial Sitting Heart Rate Pre-Dialysis 110 BPM Sitting H eart Rate Post-Dialysis 87 BPM Temperature Pre-Dialysis 97.2 degF Temperature Post -Dialysis 97.6 degF February 01, 2023 In-Center Hemodialysis Treatment [id number]:46:00.000Z [id number]:10:32.000Z BP Sitting (Pre-Dialysis) 128/101 mmHg BP Sitting (Post-Dialysis) 112/80 mmHg Concurrent Access: falseCentral Venous Catheter (CVC) Chest (Right) Arterial Sitting Heart Rate Pre-Dialysis 93 BPM BP Standing (Post-Dialysis) 108/78 mmHg Temperature Pre-Dialysis 97.8 degF Sitting Heart Ra te Post-Dialysis 92 BPM Standing Heart Rate Post-Sheri lysis 97 BPM Temperature Post-Dialysis 97 .5 degF January 29, 2023 In-Center Hemodialysis Treatment [id number]:05:23.000Z [id number]:52:53.000Z BP Sitting (Pre-Dialysis) 124/73 mmHg BP Sitting (Post-Dialysis) 122/81 mmHg Concurrent Access: falseCentral Venous Catheter (CVC) Chest (Right) Arterial Sitting Heart Rate Pre-Dialysis 98 BPM BP Standing (Post-Dialysis) 119/78 mmHg Temperature Pre-Dialysis 98.8 degF Sitting Heart Ra te Post-Dialysis 85 BPM Standing Heart Rate Post-Sheri lysis 100 BPM Temperature Post-Dialysis 97 .2 degF January 22, 2023 In-Center Hemodialysis Treatment [id number]:30:58.000Z [id number]:19:43.000Z BP Sitting (Pre-Dialysis) 150/99 mmHg BP Sitting (Post-Dialysis) 119/77 mmHg Concurrent Access: falseCentral Venous Catheter (CVC) Chest (Right) Arterial Sitting Heart Rate Pre-Dialysis 99 BPM BP Standing (Post-Dialysis) 147/92 mmHg Temperature Pre-Dialysis 98.1 degF Sitting Heart Ra te Post-Dialysis 79 BPM Standing Heart Rate Post-Sheri lysis 103 BPM Temperature Post-Dialysis 97 .6 degF December 28, 2022 In-Center Hemodialysis Treatment [id number]:16:30.000Z [id number]:10:00.000Z BP Sitting (Pre-Dialysis) 124/74 mmHg BP Sitting (Post-Dialysis) 128/74 mmHg Concurrent Access: falseCentral Venous Catheter (CVC) Chest (Right) Arterial Sitting Heart Rate Pre-Dialysis 76 BPM BP Standi ng (Post-Dialysis) 130/76 mmHg Temperature Pre-Dialysis 97 degF Sitting Heart Ra te Post-Dialysis 72 BPM Standing Heart Rate Post-Sheri lysis 70 BPM Temperature Post-Dialysis 97 .6 degF December 25, 2022 In-Center Hemodialysis Treatment [id number]:48:39.000Z [id number]:33:39.000Z BP Sitting (Pre-Dialysis) 122/77 mmHg BP Sitting (Post-Dialysis) 123/66 mmHg Concurrent Access: falseCentral Venous Catheter (CVC) Chest (Right) Arterial BP Standing (Pre-Dialysis) 123/85 mmHg BP Standing (P ost-Dialysis) 127/76 mmHg Sitting Heart Rate Pre-Dialysis 78 BPM Sitting Heart Rate Post-Dialysis 77 BPM Standing Heart Rate Pre-Dialysis 75 BPM Standing Heart Rate Post-Dialysis 73 BPM Temperature Pre-Dialysis 97.9 degF December 23, 2022 In-Center Hemodialysis Treatment [id number]:46:57.000Z [id number]:54:58.000Z BP Sitting (Pre-Dialysis) 115/99 mmHg BP Sitting (Post-Dialysis) 111/74 mmHg Concurrent Access: falseCentral Venous Catheter (CVC) Chest (Right) Arterial BP Standing (Pre-Dialysis) 131/90 mmHg BP Standing (P ost-Dialysis) 114/76 mmHg Sitting Heart Rate Pre-Dialysis 80 BPM Sitting Heart Rate Post-Dialysis 80 BPM Standing Heart Rate Pre-Dialysis 76 BPM Standing Heart Rate Post-Dialysis 82 BPM Temperature Pre-Dialysis 98 degF Temperature Post -Dialysis 98 degF December 21, 2022 In-Center Hemodialysis Treatment [id number]:56:32.000Z [id number]:50:32.000Z BP Sitting (Pre-Dialysis) 135/83 mmHg BP Sitting (Post-Dialysis) 142/73 mmHg Concurrent Access: falseCentral Venous Catheter (CVC) Chest (Right) Arterial BP Standing (Pre-Dialysis) 144/80 mmHg BP Standing (P ost-Dialysis) 133/70 mmHg Sitting Heart Rate Pre-Dialysis 72 BPM Sitting Heart Rate Post-Dialysis 80 BPM Standing Heart Rate Pre-Dialysis 92 BPM Standing Heart Rate Post-Dialysis 82 BPM Temperature Pre-Dialysis 97.8 degF Temperature Post -Dialysis 98.2 degF December 18, 2022 In-Center Hemodialysis Treatment [id number]:32:08.000Z [id number]:04:08.000Z BP Sitting (Pre-Dialysis) 148/60 mmHg BP Sitting (Post-Dialysis) 148/78 mmHg Concurrent Access: falseCentral Venous Catheter (CVC) Chest (Right) Arterial Sitting Heart Rate Pre-Dialysis 62 BPM Sitting H eart Rate Post-Dialysis 73 BPM Temperature Pre-Dialysis 97.7 degF Temperature Post -Dialysis 98.2 degF December 16, 2022 In-Center Hemodialysis Treatment [id number]:09:29.000Z [id number]:40:00.000Z BP Sitting (Pre-Dialysis) 111/71 mmHg BP Sitting (Post-Dialysis) 114/66 mmHg Concurrent Access: falseCentral Venous Catheter (CVC) Chest (Right) Arterial BP Standing (Pre-Dialysis) 109/71 mmHg BP Standing (P ost-Dialysis) 110/60 mmHg Sitting Heart Rate Pre-Dialysis 80 BPM Sitting Heart Rate Post-Dialysis 71 BPM Standing Heart Rate Pre-Dialysis 78 BPM Standing Heart Rate Post-Dialysis 70 BPM Temperature Pre-Dialysis 98 degF Temperature Post -Dialysis 97.9 degF DIALYSIS ORDER Dialysis Procedure Orders Type of Dialysis Procedure Order Order Date/Time Observations In-Center Hemodialysis Treatment December 07, 2024 Target Weight 68 kg Dialysate Flow Rate 600 mL/min Blood Flow Rate 400 mL/min Treatment Time 195 min(total) Max UF Rate 13 mL/kg/hr Base Sodium Dialysate Base Sodium 138 mE q/L dialysate_temp 37 C BiCarb Dialysate BiCarbonate 36 mEq/L Access Concurrent No Arterial Access Central Venous [facility] (CVC) (Chest (Right)) Venous Access [facility] (CVC) (Chest (Right)) Dialyzer Fredy Martin 15H 126 4 [email or web address] Dialysate Bath Potassium Potassium 3 mEq /L Dialysate Bath Calcium Calcium 2.5 mEq/L Results Adequacy Description Draw Date Result/Unit Status Ref Range Result Comments Creatinine [Mass/volume] in Serum or Plasma 2024-11-21 14:24:18 10.67 mg/dL F 0.7-1.3 WEIGHT - PRE DAY 1 2024-11-12 01:18:24 72.7 kg F TBW (Sarah) 2024-11-12 01:18:24 39.01 Liters F AMPUTATE FACTOR 2024-11-12 01:18:24 0 F TOTAL HOURS/WEEK DIALYSIS 2024-11-12 01:18:24 6 hrs F WEIGHT - POST DAY 1 2024-11-12 01:18:24 70.1 kg F WEIGHT (KG) 2024-11-12 01:18:24 69.5 kg F PRESCRIBED DAYS/WEEK 2024-11-12 01:18:24 3 Day/Wk F VT (KT/V TX VOL) 2024-11-12 01:18:24 37.5 L F BSA SERVANDO 2024-11-12 01:18:24 1.88 sq m F LENGTH OF DIALYSIS 2024-11-12 01:18:24 210 min F HEIGHT IN INCHES 2024-11-12 01:18:24 71 Inches F DIALYZER FLOW-QD 2024-11-12 01:18:24 600 mL/min F PATIENT AGE 2024-11-12 01:18:24 69 Years F Std Renal KT/V 2024-11-12 01:18:24 N/A F stdKT/V Total 2024-11-12 01:18:24 N/A F URR% 2024-11-12 01:18:24 75 % F spKt/V 2024-11-12 01:18:24 1.58 F eKt/V 2024-11-12 01:18:24 1.34 F CURRENT KRU 2024-11-12 01:18:24 F Total Kt/V 2024-11-12 01:18:24 1.58 F nPCR 2024-11-12 01:18:24 0.58 G/KG/D F Residual kt/v 2024-11-12 01:18:24 F BLOOD FLOW-QWB 2024-11-12 01:18:24 399 F stdKt/V (DIAL) 2024-11-12 01:18:24 N/A F KT/V PRESCRIBED 2024-11-12 01:18:24 1.83 F Dialyzer JUAN 2024-11-12 01:18:24 1264 Calc F VM (KT/V MEAN VOL) 2024-11-12 01:18:24 36 F Urea nitrogen [Mass/volume] in Serum or Plasma 2024-11-12 01:16:17 44 mg/dL F 9.0-23.0 Urea nitrogen [Mass/volume] in Serum or Plasma --post dialysis 2024-11-11 19:05:16 11 mg/dL F 9.0-23.0 WEIGHT - PRE DAY 1 2024-11-07 22:43:13 71.9 kg F stdKt/V (DIAL) 2024-11-07 22:43:13 N/A F spKt/V 2024-11-07 22:43:13 1.11 F TBW (Sarah) 2024-11-07 22:43:13 38.94 Liters F CURRENT KRU 2024-11-07 22:43:13 F Total Kt/V 2024-11-07 22:43:13 1.11 F Residual kt/v 2024-11-07 22:43:13 F Std Renal KT/V 2024-11-07 22:43:13 N/A F HEIGHT IN INCHES 2024-11-07 22:43:13 71 Inches F nPCR 2024-11-07 22:43:13 0.56 G/KG/D F KT/V PRESCRIBED 2024-11-07 22:43:13 1.8 F TOTAL HOURS/WEEK DIALYSIS 2024-11-07 22:43:13 10 hrs F BSA SERVANDO 2024-11-07 22:43:13 1.88 sq m F VT (KT/V TX VOL) 2024-11-07 22:43:13 52.6 L F PATIENT AGE 2024-11-07 22:43:13 69 Years F URR% 2024-11-07 22:43:13 62 % F WEIGHT (KG) 2024-11-07 22:43:13 69.5 kg F eKt/V 2024-11-07 22:43:13 0.95 F WEIGHT - POST DAY 1 2024-11-07 22:43:13 69.9 kg F Dialyzer JUAN 2024-11-07 22:43:13 1264 Calc F AMPUTATE FACTOR 2024-11-07 22:43:13 0 F BLOOD FLOW-QWB 2024-11-07 22:43:13 399 F VM (KT/V MEAN VOL) 2024-11-07 22:43:13 35.5 F PRESCRIBED DAYS/WEEK 2024-11-07 22:43:13 3 Day/Wk F LENGTH OF DIALYSIS 2024-11-07 22:43:13 207 min F stdKT/V Total 2024-11-07 22:43:13 N/A F DIALYZER FLOW-QD 2024-11-07 22:43:13 600 mL/min F Urea nitrogen [Mass/volume] in Serum or Plasma 2024-11-07 22:41:15 29 mg/dL F 9.0-23.0 Urea nitrogen [Mass/volume] in Serum or Plasma --post dialysis 2024-11-07 18:54:13 11 mg/dL F 9.0-23.0 Creatinine [Mass/volume] in Serum or Plasma 2024-10-24 16:15:20 10.43 mg/dL F 0.7-1.3 LENGTH OF DIALYSIS 2024-10-12 23:16:22 209 min F Total Kt/V 2024-10-12 23:16:22 1.73 F spKt/V 2024-10-12 23:16:22 1.73 F WEIGHT - PRE DAY 1 2024-10-12 23:16:22 71.6 kg F stdKt/V (DIAL) 2024-10-12 23:16:22 N/A F TBW (Sarah) 2024-10-12 23:16:22 38.84 Liters F DIALYZER FLOW-QD 2024-10-12 23:16:22 600 mL/min F PRESCRIBED DAYS/WEEK 2024-10-12 23:16:22 3 Day/Wk F Dialyzer JUAN 2024-10-12 23:16:22 1264 Calc F WEIGHT - POST DAY 1 2024-10-12 23:16:22 69.6 kg F eKt/V 2024-10-12 23:16:22 1.46 F CURRENT KRU 2024-10-12 23:16:22 F VT (KT/V TX VOL) 2024-10-12 23:16:22 34 L F WEIGHT (KG) 2024-10-12 23:16:22 69.5 kg F AMPUTATE FACTOR 2024-10-12 23:16:22 0 F Std Renal KT/V 2024-10-12 23:16:22 N/A F TOTAL HOURS/WEEK DIALYSIS 2024-10-12 23:16:22 10 hrs F KT/V PRESCRIBED 2024-10-12 23:16:22 1.82 F BSA SERVANDO 2024-10-12 23:16:22 1.88 sq m F BLOOD FLOW-QWB 2024-10-12 23:16:22 399 F HEIGHT IN INCHES 2024-10-12 23:16:22 71 Inches F stdKT/V Total 2024-10-12 23:16:22 N/A F URR% 2024-10-12 23:16:22 77 % F nPCR 2024-10-12 23:16:22 0.8 G/KG/D F Residual kt/v 2024-10-12 23:16:22 F PATIENT AGE 2024-10-12 23:16:22 69 Years F VM (KT/V MEAN VOL) 2024-10-12 23:16:22 35.5 F Urea nitrogen [Mass/volume] in Serum or Plasma 2024-10-12 23:14:17 35 mg/dL F 9.0-23.0 Urea nitrogen [Mass/volume] in Serum or Plasma --post dialysis 2024-10-12 22:33:21 8 mg/dL F 9.0-23.0 AMPUTATE FACTOR 2024-10-11 00:18:55 0 F TOTAL HOURS/WEEK DIALYSIS 2024-10-11 00:18:55 10 hrs F spKt/V 2024-10-11 00:18:55 0.34 F TBW (Sarah) 2024-10-11 00:18:55 38.77 Liters F Residual kt/v 2024-10-11 00:18:55 F BSA SERVANDO 2024-10-11 00:18:55 1.88 sq m F Total Kt/V 2024-10-11 00:18:55 0.34 F WEIGHT (KG) 2024-10-11 00:18:55 69.5 kg F CURRENT KRU 2024-10-11 00:18:55 F HEIGHT IN INCHES 2024-10-11 00:18:55 71 Inches F stdKt/V (DIAL) 2024-10-11 00:18:55 N/A F nPCR 2024-10-11 00:18:55 0.27 G/KG/D F Dialyzer JUAN 2024-10-11 00:18:55 1264 Calc F PRESCRIBED DAYS/WEEK 2024-10-11 00:18:55 3 Day/Wk F BLOOD FLOW-QWB 2024-10-11 00:18:55 199 F WEIGHT - POST DAY 1 2024-10-11 00:18:55 69.4 kg F KT/V PRESCRIBED 2024-10-11 00:18:55 1.83 F VT (KT/V TX VOL) 2024-10-11 00:18:55 109.6 L F PATIENT AGE 2024-10-11 00:18:55 69 Years F stdKT/V Total 2024-10-11 00:18:55 N/A F URR% 2024-10-11 00:18:55 26 % F WEIGHT - PRE DAY 1 2024-10-11 00:18:55 70.3 kg F LENGTH OF DIALYSIS 2024-10-11 00:18:55 210 min F eKt/V 2024-10-11 00:18:55 0.33 F VM (KT/V MEAN VOL) 2024-10-11 00:18:55 36 F DIALYZER FLOW-QD 2024-10-11 00:18:55 600 mL/min F Std Renal KT/V 2024-10-11 00:18:55 N/A F Urea nitrogen [Mass/volume] in Serum or Plasma 2024-10-11 00:17:15 19 mg/dL F 9.0-23.0 Urea nitrogen [Mass/volume] in Serum or Plasma --post dialysis 2024-10-11 00:07:15 14 mg/dL F 9.0-23.0 Creatinine [Mass/volume] in Serum or Plasma 2024-09-27 05:39:18 12.31 mg/dL F 0.7-1.3 WEIGHT (KG) 2024-09-19 20:25:24 69.5 kg F nPCR 2024-09-19 20:25:24 0.68 G/KG/D F PATIENT AGE 2024-09-19 20:25:24 69 Years F VM (KT/V MEAN VOL) 2024-09-19 20:25:24 36 F AMPUTATE FACTOR 2024-09-19 20:25:24 0 F HEIGHT IN INCHES 2024-09-19 20:25:24 71 Inches F PRESCRIBED DAYS/WEEK 2024-09-19 20:25:24 3 Day/Wk F WEIGHT - PRE DAY 1 2024-09-19 20:25:24 71.3 kg F Total Kt/V 2024-09-19 20:25:24 1.79 F Residual kt/v 2024-09-19 20:25:24 F Unable to calculate: Post BUN lab result is unknown TBW (Sarah) 2024-09-19 20:25:24 38.54 Liters F URR% 2024-09-19 20:25:24 78 % F Dialyzer JUAN 2024-09-19 20:25:24 1264 Calc F DIALYZER FLOW-QD 2024-09-19 20:25:24 600 mL/min F BSA SERVANDO 2024-09-19 20:25:24 1.88 sq m F stdKt/V (DIAL) 2024-09-19 20:25:24 N/A F LENGTH OF DIALYSIS 2024-09-19 20:25:24 210 min F stdKT/V Total 2024-09-19 20:25:24 N/A F eKt/V 2024-09-19 20:25:24 1.51 F KT/V PRESCRIBED 2024-09-19 20:25:24 1.83 F TOTAL HOURS/WEEK DIALYSIS 2024-09-19 20:25:24 10 hrs F CURRENT KRU 2024-09-19 20:25:24 F Unable to calculate: Post BUN lab result is unknown Std Renal KT/V 2024-09-19 20:25:24 N/A F WEIGHT - POST DAY 1 2024-09-19 20:25:24 68.7 kg F BLOOD FLOW-QWB 2024-09-19 20:25:24 399 F VT (KT/V TX VOL) 2024-09-19 20:25:24 33 L F spKt/V 2024-09-19 20:25:24 1.79 F Urea nitrogen [Mass/volume] in Serum or Plasma --post dialysis 2024-09-19 20:23:20 8 mg/dL F 9.0-23.0 Urea nitrogen [Mass/volume] in Serum or Plasma 2024-09-19 19:21:17 37 mg/dL F 9.0-23.0 Anemia Description Draw Date Result/Unit Status Ref Range Result Comments HCT CALC HGBX3 2024-11-21 14:54:52 32.7 % F 42.0-52.0 MCV [Entitic volume] by Automated count 2024-11-21 14:54:12 94.4 fL F 80.0-100.0 Hemoglobin [Mass/volume] in Blood 2024-11-21 14:54:12 10.9 g/dL F 14.0-18.0 Erythrocytes [#/volume] in Blood by Automated count 2024-11-21 14:54:12 3.62 x 10^6 cells/uL F 4.6-6.2 Erythrocyte distribution width [Ratio] by Automated count 2024-11-21 14:54:12 16.2 % F 11.0-15.0 Platelets [#/volume] in Blood by Automated count 2024-11-21 14:54:12 246 x 10^3 cells/uL F 140.0-450.0 MCH [Entitic mass] by Automated count 2024-11-21 14:54:12 30.2 pg F 25.9-34.2 MCHC [Mass/volume] by Automated count 2024-11-21 14:54:12 32 g/dL F 29.6-35.3 Hematocrit [Volume Fraction] of Blood by Automated count 2024-11-21 14:54:10 34.1 % F 41.0-53.0 HCT CALC HGBX3 2024-11-15 01:07:19 32.4 % F 42.0-52.0 Hemoglobin [Mass/volume] in Blood 2024-11-15 01:06:21 10.8 g/dL F 14.0-18.0 HCT CALC HGBX3 2024-11-07 20:10:27 36.3 % F 42.0-52.0 Hemoglobin [Mass/volume] in Blood 2024-11-07 20:09:18 12.1 g/dL F 14.0-18.0 TIBC 2024-10-25 03:10:45 258 ug/dL F 250.0-425.0 IRON SATURATION 2024-10-25 03:10:45 16 % F 21.0-49.0 Iron binding capacity.unsaturated [Mass/volume] in Serum or Plasma 2024-10-25 03:07:08 218 ug/dL F 75.0-360.0 Iron [Mass/volume] in Serum or Plasma 2024-10-25 03:07:08 40 ug/dL F 65.0-175.0 HCT CALC HGBX3 2024-10-24 23:45:14 34.8 % F 42.0-52.0 Erythrocyte distribution width [Ratio] by Automated count 2024-10-24 23:44:20 17.1 % F 11.0-15.0 MCH [Entitic mass] by Automated count 2024-10-24 23:44:20 31.6 pg F 25.9-34.2 Hematocrit [Volume Fraction] of Blood by Automated count 2024-10-24 23:44:20 36.6 % F 41.0-53.0 MCV [Entitic volume] by Automated count 2024-10-24 23:44:20 99.3 fL F 80.0-100.0 Hemoglobin [Mass/volume] in Blood 2024-10-24 23:44:20 11.6 g/dL F 14.0-18.0 Platelets [#/volume] in Blood by Automated count 2024-10-24 23:44:20 341 x 10^3 cells/uL F 140.0-450.0 MCHC [Mass/volume] by Automated count 2024-10-24 23:44:20 31.8 g/dL F 29.6-35.3 Erythrocytes [#/volume] in Blood by Automated count 2024-10-24 23:44:20 3.69 x 10^6 cells/uL F 4.6-6.2 Ferritin [Mass/volume] in Serum or Plasma 2024-10-24 17:47:20 226 ng/mL F 11.0-307.0 HCT CALC HGBX3 2024-10-03 19:17:15 35.4 % F 42.0-52.0 Hemoglobin [Mass/volume] in Blood 2024-10-03 19:16:12 11.8 g/dL F 14.0-18.0 HCT CALC HGBX3 2024-09-27 03:18:49 35.4 % F 42.0-52.0 Hemoglobin [Mass/volume] in Blood 2024-09-27 03:18:09 11.8 g/dL F 14.0-18.0 Hematocrit [Volume Fraction] of Blood by Automated count 2024-09-27 03:18:09 36.8 % F 41.0-53.0 Erythrocytes [#/volume] in Blood by Automated count 2024-09-27 03:18:09 3.59 x 10^6 cells/uL F 4.6-6.2 MCV [Entitic volume] by Automated count 2024-09-27 03:18:09 102.6 fL F 80.0-100.0 Erythrocyte distribution width [Ratio] by Automated count 2024-09-27 03:18:09 16.6 % F 11.0-15.0 Platelets [#/volume] in Blood by Automated count 2024-09-27 03:18:09 307 x 10^3 cells/uL F 140.0-450.0 MCH [Entitic mass] by Automated count 2024-09-27 03:18:09 33 pg F 25.9-34.2 MCHC [Mass/volume] by Automated count 2024-09-27 03:18:09 32.1 g/dL F 29.6-35.3 General Description Draw Date Result/Unit Status Ref Range Result Comments Chloride [Moles/volume] in Serum or Plasma 2024-11-21 22:57:22 94 mEq/L F 98.0-107.0 Aspartate aminotransferase [Enzymatic activity/volume] in Serum or Plasma 2024-11-21 14:24:18 21 U/L F 0.0-33.0 Alanine aminotransferase [Enzymatic activity/volume] in Serum or Plasma 2024-11-21 14:24:18 12 U/L F 10.0-49.0 Chloride [Moles/volume] in Serum or Plasma 2024-10-25 03:07:08 98 mEq/L F 98.0-107.0 Aspartate aminotransferase [Enzymatic activity/volume] in Serum or Plasma 2024-10-24 16:15:20 14 U/L F 0.0-33.0 Alanine aminotransferase [Enzymatic activity/volume] in Serum or Plasma 2024-10-24 16:15:20 7 U/L F 10.0-49.0 Chloride [Moles/volume] in Serum or Plasma 2024-09-27 07:10:22 94 mEq/L F 98.0-107.0 Aspartate aminotransferase [Enzymatic activity/volume] in Serum or Plasma 2024-09-27 05:39:18 17 U/L F 0.0-33.0 Alanine aminotransferase [Enzymatic activity/volume] in Serum or Plasma 2024-09-27 05:39:18 9 U/L F 10.0-49.0 InfectionVaccination Description Draw Date Result/Unit Status Ref Range Result Comments Leukocytes [#/volume] in Blood by Automated count 2024-11-21 14:54:12 10.6 x 10^3 cells/uL F 4.0-11.0 Lymphocytes [#/volume] in Blood by Automated count 2024-11-21 14:54:12 1454 Cells/uL F 620.0-3660.0 Neutrophils/100 leukocytes in Blood by Automated count 2024-11-21 14:54:12 79.1 % F Neutrophils [#/volume] in Blood by Automated count 2024-11-21 14:54:12 8393 Cells/uL F 2000.0-8800.0 Lymphocytes/100 leukocytes in Blood by Automated count 2024-11-21 14:54:10 13.7 % F Eosinophils/100 leukocytes in Blood by Automated count 2024-11-21 14:54:10 3.1 % F Monocytes [#/volume] in Blood by Automated count 2024-11-21 14:54:10 393 Cells/uL F 0.0-1100.0 Basophils [#/volume] in Blood by Automated count 2024-11-21 14:54:10 42 Cells/uL F 0.0-400.0 Basophils/100 leukocytes in Blood by Automated count 2024-11-21 14:54:10 0.4 % F Eosinophils [#/volume] in Blood by Automated count 2024-11-21 14:54:10 329 Cells/uL F 0.0-700.0 Monocytes/100 leukocytes in Blood by Automated count 2024-11-21 14:54:10 3.7 % F Lymphocytes/100 leukocytes in Blood by Automated count 2024-10-24 23:44:20 22.1 % F Monocytes [#/volume] in Blood by Automated count 2024-10-24 23:44:20 440 Cells/uL F 0.0-1100.0 Basophils [#/volume] in Blood by Automated count 2024-10-24 23:44:20 57 Cells/uL F 0.0-400.0 Neutrophils [#/volume] in Blood by Automated count 2024-10-24 23:44:20 6587 Cells/uL F 2000.0-8800.0 Monocytes/100 leukocytes in Blood by Automated count 2024-10-24 23:44:20 4.6 % F Leukocytes [#/volume] in Blood by Automated count 2024-10-24 23:44:20 9.6 x 10^3 cells/uL F 4.0-11.0 Lymphocytes [#/volume] in Blood by Automated count 2024-10-24 23:44:20 2113 Cells/uL F 620.0-3660.0 Basophils/100 leukocytes in Blood by Automated count 2024-10-24 23:44:20 0.6 % F Eosinophils/100 leukocytes in Blood by Automated count 2024-10-24 23:44:20 3.7 % F Neutrophils/100 leukocytes in Blood by Automated count 2024-10-24 23:44:20 68.9 % F Eosinophils [#/volume] in Blood by Automated count 2024-10-24 23:44:20 354 Cells/uL F 0.0-700.0 Neutrophils/100 leukocytes in Blood by Automated count 2024-09-27 03:18:09 65.5 % F Basophils [#/volume] in Blood by Automated count 2024-09-27 03:18:09 70 Cells/uL F 0.0-400.0 Neutrophils [#/volume] in Blood by Automated count 2024-09-27 03:18:09 6511 Cells/uL F 2000.0-8800.0 Leukocytes [#/volume] in Blood by Automated count 2024-09-27 03:18:09 9.9 x 10^3 cells/uL F 4.0-11.0 Eosinophils/100 leukocytes in Blood by Automated count 2024-09-27 03:18:09 4.6 % F Basophils/100 leukocytes in Blood by Automated count 2024-09-27 03:18:09 0.7 % F Lymphocytes/100 leukocytes in Blood by Automated count 2024-09-27 03:18:09 23 % F Monocytes/100 leukocytes in Blood by Automated count 2024-09-27 03:18:09 6.2 % F Monocytes [#/volume] in Blood by Automated count 2024-09-27 03:18:09 616 Cells/uL F 0.0-1100.0 Eosinophils [#/volume] in Blood by Automated count 2024-09-27 03:18:09 457 Cells/uL F 0.0-700.0 Lymphocytes [#/volume] in Blood by Automated count 2024-09-27 03:18:09 2286 Cells/uL F 620.0-3660.0 MineralBone Disorder Description Draw Date Result/Unit Status Ref Range Result Comments CA CORRECTED 2024-11-21 23:09:50 9.5 mg/dL F CA*PO4 CORRCTD 2024-11-21 23:07:49 46.6 Calc F 21.0-53.0 CA/PHOS PRODUCT 2024-11-21 23:07:49 46.6 Calc F 21.0-53.0 Calcium [Mass/volume] in Serum or Plasma 2024-11-21 22:57:22 9.5 mg/dL F 8.7-10.4 Alkaline phosphatase [Enzymatic activity/volume] in Serum or Plasma 2024-11-21 14:24:18 70 U/L F 46.0-116.0 Phosphate [Mass/volume] in Serum or Plasma 2024-11-21 14:24:18 4.9 mg/dL F 2.4-5.1 CA CORRECTED 2024-11-08 08:12:28 9.2 mg/dL F CA/PHOS PRODUCT 2024-11-08 08:09:19 40.5 Calc F 21.0-53.0 CA*PO4 CORRCTD 2024-11-08 08:09:19 40.5 Calc F 21.0-53.0 Calcium [Mass/volume] in Serum or Plasma 2024-11-08 07:07:14 9.2 mg/dL F 8.7-10.4 Parathyrin.intact [Mass/volume] in Serum or Plasma 2024-11-07 23:08:22 274 pg/mL F 18.0-80.0 Phosphate [Mass/volume] in Serum or Plasma 2024-11-07 22:41:15 4.4 mg/dL F 2.4-5.1 CA CORRECTED 2024-10-25 03:13:35 9.1 mg/dL F CA/PHOS PRODUCT 2024-10-25 03:10:45 35.5 Calc F 21.0-53.0 CA*PO4 CORRCTD 2024-10-25 03:10:45 35.5 Calc F 21.0-53.0 Calcium [Mass/volume] in Serum or Plasma 2024-10-25 03:07:08 9.1 mg/dL F 8.7-10.4 Phosphate [Mass/volume] in Serum or Plasma 2024-10-24 16:15:20 3.9 mg/dL F 2.4-5.1 Alkaline phosphatase [Enzymatic activity/volume] in Serum or Plasma 2024-10-24 16:15:20 74 U/L F 46.0-116.0 Parathyrin.intact [Mass/volume] in Serum or Plasma 2024-10-11 01:54:19 430 pg/mL F 18.0-80.0 CA CORRECTED 2024-10-11 01:53:48 7.2 mg/dL F CA/PHOS PRODUCT 2024-10-11 01:52:19 26.6 Calc F 21.0-53.0 CA*PO4 CORRCTD 2024-10-11 01:52:19 26.6 Calc F 21.0-53.0 Calcium [Mass/volume] in Serum or Plasma 2024-10-11 01:46:55 7.2 mg/dL F 8.7-10.4 Phosphate [Mass/volume] in Serum or Plasma 2024-10-11 00:17:15 3.7 mg/dL F 2.4-5.1 CA CORRECTED 2024-09-27 07:12:48 9.3 mg/dL F CA*PO4 CORRCTD 2024-09-27 07:11:45 57.7 Calc F 21.0-53.0 CA/PHOS PRODUCT 2024-09-27 07:11:45 57.7 Calc F 21.0-53.0 Calcium [Mass/volume] in Serum or Plasma 2024-09-27 07:10:22 9.3 mg/dL F 8.7-10.4 Phosphate [Mass/volume] in Serum or Plasma 2024-09-27 05:39:18 6.2 mg/dL F 2.4-5.1 Alkaline phosphatase [Enzymatic activity/volume] in Serum or Plasma 2024-09-27 05:39:18 81 U/L F 46.0-116.0 CA CORRECTED 2024-09-20 01:08:28 9.1 mg/dL F CA*PO4 CORRCTD 2024-09-20 01:06:24 57.3 Calc F 21.0-53.0 CA/PHOS PRODUCT 2024-09-20 01:06:24 57.3 Calc F 21.0-53.0 Calcium [Mass/volume] in Serum or Plasma 2024-09-20 01:03:34 9.1 mg/dL F 8.7-10.4 Parathyrin.intact [Mass/volume] in Serum or Plasma 2024-09-19 23:32:20 372 pg/mL F 18.0-80.0 Phosphate [Mass/volume] in Serum or Plasma 2024-09-19 19:21:17 6.3 mg/dL F 2.4-5.1 Nutrition Description Draw Date Result/Unit Status Ref Range Result Comments Potassium [Moles/volume] in Serum or Plasma 2024-11-21 22:57:22 4.2 mEq/L F 3.5-5.1 A/G RATIO 2024-11-21 14:25:06 1.6 Calc F 1.0-2.5 GLOBULIN 2024-11-21 14:25:06 2.9 g/dL F 0.9-5.0 Protein [Mass/volume] in Serum or Plasma 2024-11-21 14:24:18 7.5 g/dL F 5.7-8.2 Glucose [Mass/volume] in Serum or Plasma 2024-11-21 14:24:18 59 mg/dL F 74.0-106.0 Albumin [Mass/volume] in Serum or Plasma by Bromocresol green (BCG) dye binding method 2024-11-21 14:24:18 4.6 g/dL F 3.2-4.8 Bicarbonate [Moles/volume] in Serum or Plasma 2024-11-21 14:24:18 24 mEq/L F 20.0-31.0 Lactate dehydrogenase [Enzymatic activity/volume] in Serum or Plasma 2024-11-21 14:24:18 240 U/L F 120.0-246.0 Potassium [Moles/volume] in Serum or Plasma 2024-11-08 07:07:14 5.2 mEq/L F 3.5-5.1 Potassium [Moles/volume] in Serum or Plasma 2024-10-25 03:07:08 4.4 mEq/L F 3.5-5.1 GLOBULIN 2024-10-24 16:16:06 3 g/dL F 0.9-5.0 A/G RATIO 2024-10-24 16:16:06 1.4 Calc F 1.0-2.5 Lactate dehydrogenase [Enzymatic activity/volume] in Serum or Plasma 2024-10-24 16:15:20 232 U/L F 120.0-246.0 Glucose [Mass/volume] in Serum or Plasma 2024-10-24 16:15:20 62 mg/dL F 74.0-106.0 Bicarbonate [Moles/volume] in Serum or Plasma 2024-10-24 16:15:20 23 mEq/L F 20.0-31.0 Albumin [Mass/volume] in Serum or Plasma by Bromocresol green (BCG) dye binding method 2024-10-24 16:15:20 4.3 g/dL F 3.2-4.8 Protein [Mass/volume] in Serum or Plasma 2024-10-24 16:15:20 7.3 g/dL F 5.7-8.2 Potassium [Moles/volume] in Serum or Plasma 2024-10-11 01:46:55 3.3 mEq/L F 3.5-5.1 Potassium [Moles/volume] in Serum or Plasma 2024-09-27 07:10:22 4.1 mEq/L F 3.5-5.1 GLOBULIN 2024-09-27 05:40:20 3.1 g/dL F 0.9-5.0 A/G RATIO 2024-09-27 05:40:20 1.4 Calc F 1.0-2.5 Albumin [Mass/volume] in Serum or Plasma by Bromocresol green (BCG) dye binding method 2024-09-27 05:39:18 4.4 g/dL F 3.2-4.8 Glucose [Mass/volume] in Serum or Plasma 2024-09-27 05:39:18 64 mg/dL F 74.0-106.0 Protein [Mass/volume] in Serum or Plasma 2024-09-27 05:39:18 7.5 g/dL F 5.7-8.2 Bicarbonate [Moles/volume] in Serum or Plasma 2024-09-27 05:39:18 24 mEq/L F 20.0-31.0 Lactate dehydrogenase [Enzymatic activity/volume] in Serum or Plasma 2024-09-27 05:39:18 173 U/L F 120.0-246.0 Encounters No encounter information to report Immunizations Ordered Immunization Name Filled Immunization Name Date Status Comments Refusal Reason Influenza, high-dose, quadrivalent, PF 2024-12-04 16:04:00 TST-PPD intradermal 2024-02-04 17:15:00 Influenza Vaccination 2023-12-20 05:00:00 Hep B, adult 2023-09-22 19:04:04 Hep B, adult 2023-06-23 19:36:24 Hep B, adult 2023-04-30 20:28:00 Pneumococcal conjugate PCV20, polysaccharide [id number] conjugate, adjuvant, PF 2023-02-24 20:20:22 TST-PPD intradermal 2023-01-29 18:30:00 TST-PPD intradermal 2022-12-21 18:54:13 Plan of Treatment Planned Activity Provider Planned Date Details Commen ts Diagnostic Test [facility] 2024-[facility]-30 05:00:00 Alanine aminotransferase [Enzymatic activity/volume] in Serum or Plasma [code = 1742-6] Diagnostic Test Pending YIN DAVID 2024-12-03 05:00:00 Hemoglobin [Mass/volume] in Blood [code = 718-7] Diagnostic Test Pending YIN DAVID 2023-06-30 06:26:22 Ferritin [Mass/volume] in Serum or Plasma [code = 2276-4] Diagnostic Test Pending YIN DAVID 2023-04-30 15:47:10 Potassium [Moles/volume] in Serum or Plasma [code = 2823-3] Diagnostic Test Pending [facility] 2023-04-30 12:05:39 Aluminum [Mass/volume] in Serum or Plasma [code = 5574-9] Diagnostic Test Pending [facility] 2023-04-30 12:08:18 Glucose [Mass/volume] in Serum or Plasma [code = 2345-7] Diagnostic Test Pending [facility] 2023-04-30 12:04:31 Creatinine [Mass/volume] in Serum or Plasma [code = 2160-0] Diagnostic Test Pending [facility] 2023-05-01 07:44:28 Parathyrin.intact [Mass/volume] in Serum or Plasma [code = 2731-8] Diagnostic Test Pending [facility] 2023-04-30 12:03:51 Albumin [Mass/volume] in Serum or Plasma by Bromocresol green (BCG) dye binding method [code = 88426-3] Diagnostic Test Pending [facility] 2024-12-07 05:00:00 In-Center Hemodialysis Treatment [code = PRV924] Diet Order [facility] February 19, 2023 Diet Calorie 30 kcal/kg Fluid Value 1000 mL/d Phosphorus Value 900 mg/d Potassium Value 2000 mg/d Protein Value 1.2 gm/kg Sodium Value 2000 mg/d Calculated Weight 70 kg MedicationRASKSJeff [facility] 2025-01-31 06:00:00Tubersol [code = 102361]
[2024-12-10 03:39] LABS: Add Urine Microscopic? YES; Appearance Urine Turbid (Clear); Glucose Urine UA Negative (Negative); Leukocyte Esterase Ur 3+ LEU/UL (Negative); Need Manual Microscopic Reviewed; Nitrate Urine Negative (Negative); Non Pathogenic Casts 0-2; Specific Grav Ur 1.008 (1.001-1.035)
[2024-12-10] MEDS: CEPHALEXIN 500 MG CAPSULE PO (03:50)
[2024-12-10 04:15] VITALS: BP 168/99; PULSE 99; RESP 18; O2SAT 100
== END 2024-12-10 04:18 | disposition home or self-care (01) ==
PROVIDERS: Emergency Provider Student in an Organized Health Care Education/Training Program
DX: N39.0 Urinary tract infection, site not specified (principal); T83.9XXA Unspecified complication of genitourinary prosthetic device, implant and graft, initial encounter; F17.210 Nicotine dependence, cigarettes, uncomplicated; I12.0 Hypertensive chronic kidney disease with stage 5 chronic kidney disease or end stage renal disease; N18.6 End stage renal disease; Z99.2 Dependence on renal dialysis; K21.9 Gastro-esophageal reflux disease without esophagitis
CPT/HCPCS: 51702; 81001; 99283; A9270

== ENCOUNTER 2024-12-19 12:04 | Inpatient (IN) | payer MEDICARE, MEDICAID, SELFPAY ==
[2024-12-19] VITALS (19 sets, daily range): BP systolic 152–188; BP diastolic 95–115; PULSE 68–80; RESP 13–27; TEMP 36.2–36.8; O2SAT 99–100; BMI 19.2
--- NOTE | ~2024-12-19 | CT_ITS ---
REFERENCE: [None available.] TECHNIQUE: Axial mm images of the head and neck were obtained without and with infusion of contrast dose of intravenous contrast. Postcontrast 1.25 mm axial images were then obtained. On an independent workstation, 0.625 mm axial images were utilized to render MIP and MPR images of the intracranial circulation. CTA NECK: The aortic arch demonstrates normal caliber and patency. Normal branching pattern is noted of the supraaortic vessels. The origins of the supraaortic vessels are widely patent.. The common carotid and cervical segments of the ICA and ECA demonstrate normal caliber and patency. Irregularity within the right vertebral artery at the level C5-C6 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 (axial image 122 sagittal image 33 and coronal image 73.. The vertebral arteries are symmetric in size, demonstrating normal patency. CTA HEAD: Marked atherosclerotic vascular calcification of the intracranial ICA are noted causing moderate stenosis. The intracranial CHONG, and MCA demonstrate normal caliber and patency. No hemodynamically significant stenosis or aneurysm is identified. The distal vertebral, basilar, and bilateral posterior cerebral arteries demonstrate normal caliber and patency. The superior cerebellar arteries are also widely patent. NONVASCULAR FINDINGS: The soft tissue of the neck is unremarkable. No mass or pathologic enhancement is noted. There is no pathologically enlarged lymphadenopathy. The airway is patent. No acute intracranial hemorrhage, mass, or extraaxial fluid collections are noted. Ventricular size is normal. The skull is intact. The visualized mastoid air cells and sinuses are clear. There is no pathologic enhancement. IMPRESSION: Irregularity within the right vertebral artery at the level C5-C6 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. Correlate clinically. There is marked atherosclerotic vascular calcification of the intracranial carotid artery causing moderate stenosis. No large vessel occlusion is seen. Reviewed, dictated and finalized at location S. IMPRESSION: Irregularity within the right vertebral artery at the level C5-C6 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. Correlate clinically. There is marked atherosclerotic vascular calcification of the intracranial breen tid artery causing moderate stenosis. No large vessel occlusion is seen.
--- NOTE | ~2024-12-19 | CT_ITS ---
CT brain wo con HISTORY:stroke rule out COMPARISON: None. TECHNIQUE: Axial images were obtained of the head without intravenous contrast. FINDINGS: No acute intracranial hemorrhage, mass effect or midline shift. No extra-axial fluid collections. Generalized atrophy and chronic white matter microangiopathic changes in the periventricular white matter.There is chronic lacunar infarct in the left basal ganglia. IMPRESSION: No acute intracranial hemorrhage or extra axial fluid collections. Chronic white matter microangiopathic changes. There is a chronic lacunar infarct in the left basal ganglia. All CT scans at this facility are performed using low dose modulation techniques as appropriate to perform exam including the following: automated exposure control; use of iterative reconstruction technique; adjustment of the mA and/or kV according to patient size (this includes techniques or standardized protocols for targeted exams where dose is matched to indication/reason for exam). Reviewed, dictated and finalized at location S. IMPRESSION: No acute intracranial hemorrhage or extra axial fluid collections. Chronic white matter microangiopathic changes. There is a chronic lacunar infarct in the left basal ganglia. All CT scans at this facility are performed using low dose modulation techniqu es as appropriate to perform exam including the following: automated exposure c ontrol; use of iterative reconstruction technique; adjustment of the mA and/or kV according to patient size (this includes techniques or standardized protocol s for targeted exams where dose is matched to indication/reason for exam).
--- NOTE | ~2024-12-19 | XR_ITS ---
MODIFIED ESOPHAGRAM HISTORY: Dysphagia. TECHNIQUE: Modified barium esophagram was performed on 12/20/2024. I administered fluoroscopy and performed the exam with speech pathologist. Patient was seated for lateral fluoroscopic imaging for ingestion of thin liquids, pudding, solids and quantified amounts, followed by thin liquids in uncontrolled amounts. This was recorded on tape. A single fluoroscopic spot image was also recorded. The DAP for this procedure was 1.538 Gycm2. The amount of fluoroscopy time used during this procedure was 2.8 minutes. FINDINGS: Oral stage: Reduced lingual palatal seal resulting in oral residue. Pharyngeal stage: Reduced tongue base retraction with mild vallecular and piriform sinus residue. Transient trace/flash laryngeal penetration which rapidly clears. No aspiration. Cervical/esophageal stage: Adequate function. IMPRESSION: Mild oropharyngeal dysphagia with transient trace/flash laryngeal penetration without aspiration. Please correlate with speech pathologist findings and specific feeding recommendations. Reviewed, dictated and finalized at location A. IMPRESSION: Mild oropharyngeal dysphagia with transient trace/flash laryngeal p enetration without aspiration. Please correlate with speech pathologist findin gs and specific feeding recommendations.
--- NOTE | ~2024-12-19 | CT_ITS ---
EXAMINATION: CT brain wo con DATE: 12/19/2024 13:24 INDICATION: Seizure. Left-sided twitching. TECHNIQUE: Computed tomography (CT) of the head was performed without intravenous contrast. Sagittal and coronal reconstructions were performed. The mA was adjusted according to patient size. Iterative reconstruction technique was employed. The dose-length product was 983.67 mGy-cm. COMPARISON: head CT dated 11/18/2024 FINDINGS: No acute intracranial hemorrhage, acute infarction or abnormal extra axial fluid collection. Small old lacunar infarcts at the bilateral basal ganglia, thalami and internal capsules. There is extensive scattered white matter hypoattenuation consistent with chronic small vessel ischemic disease. Symmetric prominence of the sulci consistent with mild age-appropriate diffuse cerebral volume loss. Ventricles are normal and symmetric. No mass/mass effect. Chronic fractures along the medial and inferior núñez of the left orbit. The orbits are otherwise normal. Paranasal sinuses, mastoid air cells and middle ear cavities are clear. Intracranial calcified cerebral atherosclerosis is noted. IMPRESSION: 1. Stable appearance of multiple old lacunar infarcts at the bilateral thalami, basal ganglia and internal capsules. No acute intracranial process. 2. Age-related changes including mild diffuse volume loss and stable appearance of extensive cerebral white matter hypoattenuation consistent with chronic small vessel ischemic disease. Reviewed, dictated and finalized at location A. IMPRESSION: 1. Stable appearance of multiple old lacunar infarcts at the bilateral thalami, basal ganglia and internal capsules. No acute intracranial process. 2. Age-related changes including mild diffuse volume loss and stable appearance of extensive cerebral white matter hypoattenuation consistent with chronic sma ll vessel ischemic disease.
--- NOTE | ~2024-12-19 | MR_ITS ---
EXAMINATION: MR brain/brain stem wo/w con DATE: 12/20/2024 13:40 INDICATION: Recurrent expressive aphasia. Dysarthria. TECHNIQUE: Magnetic resonance imaging (MRI) of the brain and brainstem was performed without and with 13 mL Multihance intravenous contrast. Sequences included sagittal and axial T1-weighted SE, axial diffusion-weighted FS SE, axial 3D SWAN, axial T2-weighted FLAIR, and axial T2-weighted FSE. Postcontrast axial, sagittal and coronal T1-weighted SE was obtained. Apparent diffusion coefficient (ADC) maps were created. COMPARISON: Head CT and CT angiogram dated 12/19/2024 FINDINGS: There are no areas of restricted diffusion to suggest acute infarction. Small old lacunar infarcts at the bilateral thalami, basal ganglia and internal capsules. No intracranial hemorrhage or abnormal intracranial mass lesion. Scattered nonspecific increased T2-weighted signal intensity in the cerebral white matter, predominantly involving the deep and periventricular white matter where it becomes confluent. There are no intraparenchymal signal abnormalities seen on the other pulse sequences. The ventricles are symmetric and normal in size. There are no abnormal extra-axial fluid collections. Flow voids are seen in the cerebral arteries on the T2-weighted sequences consistent with their expected patency. Visualized orbits and soft tissues are unremarkable. Mild mucosal thickening bilateral ethmoid sinuses. There are no areas of abnormal enhancement on the post contrast images. IMPRESSION: 1. Old lacunar infarcts at the bilateral thalami, basal ganglia and internal capsules. No acute intracranial process or abnormal enhancing brain lesions. 2. Extensive periventricular predominant nonspecific white matter T2 hyperintensity consistent with chronic small vessel ischemic disease. Reviewed, dictated and finalized at location A. IMPRESSION: 1. Old lacunar infarcts at the bilateral thalami, basal ganglia and internal ca psules. No acute intracranial process or abnormal enhancing brain lesions. 2. Extensive periventricular predominant nonspecific white matter T2 hyperinten sity consistent with chronic small vessel ischemic disease.
--- NOTE | 2024-12-19 12:05 | ECG_ITS ---
Test Date: 2024-12-19 12:07:01 Measurements Intervals [place]calfe Rate: 75 P: 69 VT: 185 QRS: 22 QRSD: 77 T: -44 QT: 400 QTc: 449 Interpretive Statements SINUS RHYTHM CANNOT R/O SEPTAL INFARCT, AGE INDETERMINATE BORDERLINE ST-T WAVE ABNORMALITY- INF/LAT LEADS BASELINE ARTIFACT- I, II, III, AVR, AVL, AVF, V1, V4-V6 ABNORMAL ECG Compared to ECG 03/13/2024 01:39:58 PAC AND PVC NO LONGER PRESENT Electronically Signed On 12-19-2024 12:09:44 CDT by Richard Steve D.O.
[2024-12-19 13:02] LABS: Hematocrit 29.8 % (42.0-52.0); Hemoglobin 9.7 g/dL (14.0-18.0); Immature Granulocyte Percent A 0.7 % (0-0.5); Lymphocytes Absolute Auto 1.32 K/mm3 (0.9-3.2); Mean Corpuscular HGB Conc 32.6 g/dl (32-36); Mean Corpuscular Hemoglobin 31.4 pg (26-34); Mean Corpuscular Volume 96.4 fl (80-100); Nucleated Red Blood Cells Absolute Auto 0.000 K/mm3 (0.0-0.012); Nucleated Red Blood Cells Perc 0.0 % (0.0-0.2); Platelet Count Result 210 k/mm3 (150-375); Red Blood Count 3.09 M/mm3 (4.6-6.20); White Blood Count 9.4 K/mm3 (4.5-10.0)
--- NOTE | 2024-12-19 13:05 | ED.SEIZURE ---
HPI - Seizure General Chief Complaint: Seizure Stated Complaint: seizure Time Seen by Provider: 12/19/24 12:36 Source: patient and EMS Mode of arrival: EMS Limitations: no limitations History of Present Illness HPI Narrative: This is a 69-year-old male who presents to the ED for seizure activity. Per EMS, patient does have a history of alcoholism and last drink 4-5 days ago. He has no history of seizures or alcohol withdrawal seizures. Patient is a dialysis patient and had treatment yesterday without difficulties. Per family, patient had shaking episode but unclear how long this lasted. Per EMS, patient was post ictal. Patient just reports twitching to his left side of his face at this time. Denies headache, chest pain, shortness of breath, fevers, chills. Related Data Home Medications ?Medication ?Instructions ?Recorded ?Confirmed ?Last Taken ?Type acetaminophen 500 mg capsule 500 mg PO Q6H PRN pain 03/12/24 03/12/24 03/11/24 History amlodipine 10 mg tablet 10 mg PO DAILY 03/12/24 03/12/24 03/11/24 History famotidine 20 mg tablet 20 mg PO DAILY 03/12/24 03/12/24 03/11/24 History finasteride 5 mg tablet 5 mg PO DAILY 03/12/24 03/12/24 03/11/24 History glycerin (adult) 1 supp RECTAL PRN 03/12/24 03/12/24 03/11/24 History metoprolol tartrate 25 mg tablet 25 mg PO BID 03/12/24 03/12/24 03/11/24 History pantoprazole 40 mg tablet,delayed 40 mg PO DAILY 03/12/24 03/12/24 03/11/24 History release tamsulosin 0.4 mg capsule 0.4 mg PO HS 03/12/24 03/12/24 03/11/24 History tramadol 50 mg tablet 50 mg PO BID PRN pain 03/12/24 03/12/24 03/11/24 History Allergies Allergy/AdvReac Type Severity Reaction Status Date / Time [place] Inhibitors Allergy Severe Unknown Verified 12/19/24 12:16 lisinopril Allergy Intermediate Itching Verified 12/19/24 12:16 oxycodone Allergy Unknown Verified 12/19/24 12:16 Review of Systems Review of Systems: Gen.: Denies fevers or chills Eyes: Denies eye pain or visual change ENT: Denies congestion Respiratory: Denies shortness of breath or cough CV: Denies chest pain or palpitations GI: Denies abdominal pain nausea, emesis or diarrhea denies burning, urgency, frequency or hematuria Musculoskeletal: Denies back pain or muscle pain Neuro: As per HPI Skin: Denies rash Except as documented, all other systems reviewed and negative [facility] Past Medical History Medical History (Updated 12/19/24 @ 17:54 by Juan Artsi MD) Anemia in CKD (chronic kidney disease) ESRD on dialysis M/W/F GERD (gastroesophageal reflux disease) Hypertension Social History Social History Smoking status: Current every day smoker Tobacco type: cigarettes Second hand tobacco smoke exposure: Yes Alcohol intake: current Drinks per week: 1 Substance use: never Substance use type: does not use Do You Feel Safe in your Home?: Yes Lack of Transportation: YES Lack of Food: Sometimes True Current Housing: I Have Housing Concerned About Future Housing: No Difficulty Paying Gas/Electric Bills: No Difficulty Paying for Meds: No Currently Unemployed: No Education: Decline to Answer Difficulty w/ Childcare or Family Care: No Spiritual care concerns: No Exam Narrative: APPEARANCE: No acute distress, nontoxic, resting in bed EYES: EOMI HEENT: Normocephalic, atraumatic, OMM RESPIRATORY: No respiratory distress Clear to auscultation bilaterally with no rhonchi wheezing or rales. CARDIOVASCULAR: Regular rate and rhythm without murmurs rubs or gallops. ABDOMINAL: Soft, nontender, nondistended, no rebound or guarding MUSCULOSKELETAl: Moves all extremities. No clubbing, cyanosis or edema. NEURO: Awake and alert. Following commands, speech normal. Intermittent spasms to the left side of his face. SKIN:: Warm, dry. No rashes lesions or abrasions PSYCHIATRIC: Normal affect/mood, Course Vital Signs Vital signs: Vital Signs Temperature 97.2 F L 12/19/24 11:59 Pulse Rate 80 12/19/24 11:59 Respiratory Rate 18 12/19/24 11:59 Blood Pressure 182/99 H 12/19/24 11:59 Pulse Oximetry 100 12/19/24 11:59 Temperature 97.2 F L 12/19/24 11:59 Pulse Rate 70 12/19/24 16:09 Respiratory Rate 20 12/19/24 16:09 Blood Pressure 164/95 H 12/19/24 15:32 Pulse Oximetry 100 12/19/24 16:09 Oxygen Delivery Room Air 12/19/24 12:20 MDM - Seizure MDM Narrative Medical decision making narrative: 69-year-old male presenting for seizure activity. On initial evaluation, patient was in no acute distress afebrile, hemodynamically stable. He was having some facial spasms to the left side of his face that was new. Patient was given 5 mg of Valium for this with improvement of his symptoms. He had anemia at 9.7 slightly decreased from prior 2 months ago which was at 10.1. Potassium within normal limits. Creatinine elevated at 8.23 consistent with his ESRD. UA may be consistent with a UTI but he has had similar UA findings for months at this point. Alcohol is 0. CT head showed no acute process. Suspect the patient did have alcohol withdrawal seizure for the 1st time I have given reports of possible generalized shaking with a postictal period per EMS. Case was discussed with hospitalist who will admit the patient. Differential Diagnosis Differential diagnosis: Likely generalized seizure, new onset seizure, epileptic seizure and other (Alcohol withdrawal, electrolyte abnormality, CVA, intracranial hemorrhage) Medical Records Attestation: I reviewed the patient's medical records. Lab Data Attestation: I reviewed the patient's lab results. 12/19/24 12:56 12/19/24 12:56 Labs: Lab Results 12/19/24 Range/Units 12:56 WBC 9.4 (4.5-10.0) K/mm3 RBC 3.09 L (4.6-6.20) M/mm3 Hgb 9.7 L (14.0-18.0) g/dL Hct 29.8 L (42.0-52.0) % MCV 96.4 (80-100) fl MCH 31.4 (26-34) pg MCHC 32.6 (32-36) g/dl RDW 17.9 H (11.5-14.5) % Plt Count 210 (150-375) k/mm3 MPV 9.3 (7.4-10.4) fl Immature Gran % (Auto) 0.7 H (0-0.5) % Neut % (Auto) 76.1 H (45.5-73.1) % Lymph % (Auto) 14.1 L (18.3-44.2) % Williams % (Auto) 6.5 (2.6-8.5) % Eos % (Auto) 2.2 (0-4.4) % Baso % (Auto) 0.4 (0.2-1.2) % Lymph # (Auto) 1.32 (0.9-3.2) K/mm3 Williams # (Auto) 0.6 (0.1-0.6) K/mm3 Eos # (Auto) 0.2 (0-0.3) K/mm3 Baso # (Auto) 0.0 (0.0-0.1) K/mm3 Abs Immat Gran (auto) 0.07 H (0.00-0.031) K/mm3 Absolute Neuts (auto) 7.1 H (1.3-6.7) K/mm3 Absolute Nucleated RBC 0.000 (0.0-0.012) K/mm3 Nucleated RBC % 0.0 (0.0-0.2) % PT 12.6 (11.1-14.7) Seconds INR 0.9 APTT 24.2 (22.3-36.8) Seconds Sodium 136 L (137-145) mmol/L Potassium 4.0 (3.4-5.0) mmol/L Chloride 94 L (98-107) mmol/L Carbon Dioxide 33 H (22-30) mmol/L Anion Gap 9 (4-12) mmol/L BUN 21 H (9-20) mg/dL Creatinine 8.23 H (0.7-1.3) mg/dL Estim Creat Clear Calc 7 ml/min Estimated GFR 7 L (59 - ) Glucose 122 H (65-110) mg/dL Calcium 9.0 (8.4-10.2) mg/dL Phosphorus 3.4 (2.5-4.5) mg/dL Magnesium 2.2 (1.6-2.3) mg/dL Total Bilirubin 0.6 (0.2-1.3) mg/dL AST 24 (17-59) U/L ALT 12 (6-50) U/L Alkaline Phosphatase 66 (38-126) U/L Total Protein 7.6 (6.3-8.2) g/dL Albumin 4.1 (3.5-5.1) g/dL Urine Color Yellow (Yellow) Urine Appearance Turbid H (Clear) Urine pH 8.5 (5.0-9.0) Ur Specific Shafter 1.009 (1.001-1.035) Urine Protein 3+ H (Negative) mg/dL Urine Glucose (UA) Negative (Negative) mg/dL Urine Ketones Negative (Negative) mg/dL Ur Blood (Man) 1+ H (Negative) Urine Nitrate Negative (Negative) Urine Bilirubin Negative (Negative) Urine Urobilinogen 0.2 (<2.0) mg/dL Add Ur Microanalysis Reviewed Leukocyte Esterase Rfl 3+ H (Negative) SAM/UL Urine RBC 6-10 H (0-2) /hpf Urine WBC >100 H (0-3) /hpf Ur Squamous Epith Cells None seen (Few) /hpf Urine Bacteria 4+ H /hpf Urine Casts >20 Ethyl Alcohol < 10 (<10) mg/dL Imaging Data Attestation: I personally reviewed and interpreted this imaging study as follows: Radiologist's impression: Impressions Head CT 12/19/24 13:26 IMPRESSION: 1. Stable appearance of multiple old lacunar infarcts at the bilateral thalami, basal ganglia and internal capsules. No acute intracranial process. 2. Age-related changes including mild diffuse volume loss and stable appearance of extensive cerebral white matter hypoattenuation consistent with chronic small vessel ischemic disease. ECG Data EKG #1: Attestation: I personally reviewed and interpreted this ECG as follows: ECG completion date: 12/19/24 ECG completion time: 12:07 Interpretation: Normal sinus rhythm rate of 75, normal axis normal intervals, Q-waves in V2 and V3 no acute ST or T-wave changes Discharge Plan Discharge Clinical Impression: ESRD on dialysis Alcohol withdrawal seizure Qualifiers: Complication of substance-induced condition: uncomplicated Qualified Code(s): F10.930 - Alcohol use, unspecified with withdrawal, uncomplicated; R56.9 - Unspecified convulsions Patient Disposition: Still a Patient Condition: Stable
[2024-12-19 13:11] LABS: Add Urine Microscopic? YES; Appearance Urine Turbid (Clear); Glucose Urine UA Negative (Negative); Leukocyte Esterase Ur 3+ LEU/UL (Negative); Need Manual Microscopic Reviewed; Nitrate Urine Negative (Negative); Non Pathogenic Casts >20; Specific Grav Ur 1.009 (1.001-1.035)
[2024-12-19] MEDS: ONDANSETRON INJ 4 MG/2 ML VIAL IV PUSH (13:11)
[2024-12-19] MEDS: diazePAM INJ (*CRX) 10 MG/2 ML SYRINGE IV PUSH (13:11)
[2024-12-19 13:13] LABS: INR 0.9; Prothrombin Time 12.6 Seconds (11.1-14.7)
[2024-12-19 13:14] LABS: Partial Thromboplastin Time 24.2 Seconds (22.3-36.8)
[2024-12-19 13:20] LABS: Alanine Aminotransferase 12 U/L (6-50); Albumin Level 4.1 g/dL (3.5-5.1); Alkaline Phosphatase 66 U/L (38-126); Anion Gap 9 mmol/L (4-12); Aspartate Amino Transferase 24 U/L (17-59); Bilirubin,Total 0.6 mg/dL (0.2-1.3); Blood Urea Nitrogen 21 mg/dL (9-20); Calcium 9.0 mg/dL (8.4-10.2); Carbon Dioxide 33 mmol/L (22-30); Chloride 94 mmol/L (98-107); Estimated CRCL calculation 7 ml/min; Estimated Glomerular Filt Rate 7; Glucose 122 mg/dL (65-110); Potassium 4.0 mmol/L (3.4-5.0); Sodium 136 mmol/L (137-145); Total Protein 7.6 g/dL (6.3-8.2)
[2024-12-19 13:52] LABS: Magnesium 2.2 mg/dL (1.6-2.3)
--- NOTE | 2024-12-19 14:51 | PM.IMHP ---
H&P: HPI History of Present Illness Date/Time: 12/19/24 14:51 Chief Complaint: Seizure-like Activity Narrative: 69 y/o M with PMH of alcohol abuse, ESRD on HD (M/W/F), anemia in setting of CKD, GERD, and hypertension presents here with seizure-like activity. The patient presents here from home on 12/19 for possible seizure-like activity. HPI obtained through patient report and family report. The family reports that the patient had a shaking episode of unknown duration. Shaking stopped without medical intervention. EMS was contacted and upon their initial assessment the patient was confused/post-ictal. After arrival to the ED, family noted the patient had twitching to the left side of his face around 1:00 p.m. Resolved with Valium IV. The patient does not have a history of seizures. He does however have a history of alcoholism with the last drink was around 1 week ago because he has been on antibiotics for a bladder infection. On average the patient drinks a half of a pint per day and drinks a pint on the weekends for the past 10 years. He denies any previous history of withdrawal or withdrawal seizures with cessation of alcohol. He additionally has a history significant for ESRD on HD. He receives treatment on Mondays, Wednesdays, and Fridays. Last able to get full treatment yesterday, 12/18. Now reporting acute onset of slurred speech and diffculty with word finding starting at 21:00, however bedside RN reporting symptoms were present at shift change and it was reported to her by the ED nursing staff as well. He reports his symptoms have been coming and going and had completely resolved before returning at 21:00. Also reporting numbness to his bilateral hands, right tongue numbness that has caused him to bite his tongue a few times. Noted to have a left facial droop. No prior knowledge of CVA, however told he has had a stroke before based off his CT that was done today. He denies accompanying vision changes. Initial VS at presentation: 97.2? F, HR 80, RR 18, 182/99, and 100% on RA. ED workup showed: No leukocytosis, hemoglobin 9.7 (10.4 on 10/23), normal coags, sodium 136, creatinine 8.23 and GFR 7, glucose 122, and UA consistent with UTI. ETOH negative. Head CT showed stable appearance of multiple old lacunar infarcts, no acute intracranial process, age-related changes. EKG showed sinus rhythm, rate 75. Review of Systems Review of Systems: All systems reviewed & are unremarkable except as noted in HPI and below [facility] Past Medical History Medical History (Updated 12/19/24 @ 21:29 by Jaja Miller APRN) Anemia in CKD (chronic kidney disease) ESRD on dialysis M/W/F GERD (gastroesophageal reflux disease) Hypertension Family History Family History (Updated 12/19/24 @ 18:36 by Saige Portillo RN) Father Diabetes mellitus Mother Hypertension Social History Social History Smoking status: Current every day smoker Tobacco type: cigarettes Second hand tobacco smoke exposure: Yes Alcohol intake: current Drinks per week: 1 Substance use: never Substance use type: does not use Other substance usage details: drinks vodka/beer Do You Feel Safe in your Home?: Yes Lack of Transportation: No Lack of Food: Never True Current Housing: I Have Housing Concerned About Future Housing: No Difficulty Paying Gas/Electric Bills: No Difficulty Paying for Meds: No Currently Unemployed: No Education: High School Diploma/GED Difficulty w/ Childcare or Family Care: No Spiritual care concerns: No Meds Home Medications and Allergies Home Medications ?Medication ?Instructions ?Recorded ?Confirmed ?Type acetaminophen 500 mg capsule 500 mg PO Q6H PRN pain 03/12/24 12/19/24 History amlodipine 10 mg tablet 10 mg PO DAILY 03/12/24 12/19/24 History famotidine 20 mg tablet 20 mg PO DAILY 03/12/24 12/19/24 History finasteride 5 mg tablet 5 mg PO DAILY 03/12/24 12/19/24 History metoprolol tartrate 25 mg tablet 25 mg PO BID 03/12/24 12/19/24 History pantoprazole 40 mg tablet,delayed 40 mg PO DAILY 03/12/24 12/19/24 History release tamsulosin 0.4 mg capsule 0.4 mg PO HS 03/12/24 12/19/24 History tramadol 50 mg tablet 50 mg PO BID PRN pain 03/12/24 12/19/24 History cephalexin 500 mg capsule 500 mg PO Q6H 7 days #28 caps 12/10/24 12/19/24 Rx Allergies Allergy/AdvReac Type Severity Reaction Status Date / Time ISRA[place] Inhibitors Allergy Severe Unknown Verified 12/19/24 18:31 lisinopril Allergy Intermediate Itching Verified 12/19/24 18:31 Vital Signs Vital Signs - 24 hr 12/19/24 11:59 12/19/24 12:13 12/19/24 12:15 Temperature 97.2 F L Pulse Rate 80 73 73 Respiratory Rate 18 22 H 19 Blood Pressure 182/99 H Pulse Oximetry 100 100 100 Oxygen Delivery 12/19/24 12:17 12/19/24 12:20 12/19/24 12:32 Temperature Pulse Rate 73 Respiratory Rate 23 H Blood Pressure 152/115 H Pulse Oximetry 99 100 100 Oxygen Delivery Room Air Room Air 12/19/24 13:04 12/19/24 13:15 12/19/24 13:55 Temperature Pulse Rate 75 73 70 Respiratory Rate 24 H 14 27 H Blood Pressure Pulse Oximetry 100 100 100 Oxygen Delivery 12/19/24 14:00 Temperature Pulse Rate 69 Respiratory Rate 15 Blood Pressure Pulse Oximetry 99 Oxygen Delivery Exam Const: General: comfortable and no acute distress Other: , male, older appearing than stated age HENMT: Face/Nose/Sinus: Normal nares present Mouth: Yes moist mucous membranes Eyes: General: appearance normal, both eyes and all related structures Sclera: sclerae normal Pupils: Equal, round and reactive pupils present EOM: EOMs intact bilaterally Resp: Effort & Inspection: normal respiratory effort Auscultation: clear to auscultation bilaterally Cardio: Rate: regular rate Rhythm: regular rhythm Other: S1-S2 present without murmur, rub, ectopy GI: Other: Abdomen soft, nondistended, nontender. Normoactive bowel sounds in all quadrants. Skin: General skin exam: normal color and no rashes or lesions noted Wounds: no wounds Neuro: Other: Initial NIHSS at 21:10 1a: Level of Consciousness 0 1b: LOC Questions 0 1c:?LOC Tasks 0 2:?Best Gaze 0 3:?Visual?Beltrán 0 4: Facial Palsy 1 5a: Motor Arm?R 0 5b: Motor Arm L 0 6a:?Motor Leg R 0 6a:?Motor Leg L 2 7: Limb Ataxia 0 8: Sensation 0 9:?Language/Aphasia 2 10:?Dysarthria?1 11: Extinction and Inattention 0 Total: 6 Mild dysarthria, significant expressive aphasia, minimal left facial droop, and left lower extremity drift noted upon exam. No sensory deficits, but gaze palsy, visual deficits, or ataxia observed. Remains A&O x4. Additionally there is left facial twitching and moderate amplitude muscle spasms to his bilateral upper extremities that did not appear to worsen or improve with intention. Extrem: General: normal to inspection Psych: Mental Status: mental status grossly normal Affect: normal affect Other: Fair insight and judgment H&P: Results Labs Labs: Short CBC 12/19/24 Range/Units 12:56 WBC 9.4 (4.5-10.0) K/mm3 Hgb 9.7 L (14.0-18.0) g/dL Hct 29.8 L (42.0-52.0) % Plt Count 210 (150-375) k/mm3 BMP 12/19/24 12:56 Sodium 136 L Potassium 4.0 Chloride 94 L Carbon Dioxide 33 H BUN 21 H Creatinine 8.23 H Glucose 122 H Calcium 9.0 Liver Function 12/19/24 Range/Units 12:56 Total Bilirubin 0.6 (0.2-1.3) mg/dL AST 24 (17-59) U/L ALT 12 (6-50) U/L Alkaline Phosphatase 66 (38-126) U/L Albumin 4.1 (3.5-5.1) g/dL Urine 12/19/24 Range/Units 12:56 Urine Color Yellow (Yellow) Urine Appearance Turbid H (Clear) Urine pH 8.5 (5.0-9.0) Ur Specific [place] 1.009 (1.001-1.035) Urine Protein 3+ H (Negative) mg/dL Urine Glucose (UA) Negative (Negative) mg/dL Assessment and Plan Assessment and plan (1) Dysarthria: Code(s): R47.1 - Dysarthria and anarthria Status: Acute Assessment and Plan: The patient reports he has been experiencing intermittent dysarthria and expressive aphasia this afternoon. He reports his symptoms completely resolved and then returned acutely at 9:00 p.m.. Discovery of symptoms at 9:10 p.m. Code stroke activated. Patient taken for emergent CT/CTA. Stroke scale completed prior to imaging, scored a total of 6 due to a mild left facial droop, dysarthria, expressive aphasia, and a left lower extremity drift. Patient has no prior knowledge of CVA, however told he has had a previous stroke due to his earlier head CT showing multiple old lacunar infarcts. During the patient's episode of dysarthria/expressive aphasia he had left-sided facial twitching and moderate amplitude muscle spasms to the bilateral upper extremities. Patient remained conscious and no disorientation noted. He was given an additional 5 mg IV of Valium and started on Keppra. Post imaging the patient's dysarthria and expressive aphasia have significantly improved. Head CT showed no acute abnormalities. 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 - neurology consulted - check lipid panel and A1c - check echo with bubble study - MRI - ST/PT/OT evaluation - patient additionally has new seizure-like activity (sequela of CVA versus alcohol withdrawal induced) started on Keppra - start atorvastatin, Plavix, aspirin daily - telemetry monitoring (2) Seizure-like activity: Code(s): R56.9 - Unspecified convulsions Status: Acute Assessment and Plan: Seizure-like activity described as shaking of unknown duration witnessed by patient's family on 12/19. No prior history of seizures. Does have history of alcohol abuse with last drink 1 week ago. New onset seizures versus alcohol withdrawal seizures? Patient additionally had witnessed left-sided facial twitching during his evaluation in the emergency department that resolved with IV Valium. Recurrent this evening at 21:10, see note above. - seizure precaution - neurology consulted - CIWA and protocol in place - start Keppra, loading dose of 1500 mg and 500 mg b.i.d. IVPB (3) Alcohol abuse: Code(s): F10.10 - Alcohol abuse, uncomplicated Status: Acute Assessment and Plan: - daily ETOH use: 1/2 pint to 1 pint for the past 10 years - last drink: 1 week ago prior to admission on 12/19 - CIWA protocol in place Diazepam PRN Librium prn seizure precautions neurochecks Q2H - banana bag x1, folic acid/thiamine daily - check folic acid and thiamine levels - antiemetics PRN (4) ESRD on dialysis: Code(s): N18.6 - End stage renal disease; Z99.2 - Dependence on renal dialysis Status: Acute Assessment and Plan: History of end-stage renal disease on dialysis Mondays, Wednesdays, Fridays. Last treatment this past Wednesday on 12/18, received full treatment. - nephrology consulted for inpatient dialysis (5) Hypertension: Qualifiers: Hypertension type: secondary to other renal disorders Qualified Code(s): I15.1 - Hypertension secondary to other renal disorders Code(s): I10 - Essential (primary) hypertension Status: Acute Assessment and Plan: - chronic, currently 152/115. not currently well controlled. - continue home medications: Amlodipine, metoprolol - hydralazine p.r.n. for BP greater than 180/90 - monitor Plan Diet: Renal GI Prophylaxis: N/a DVT Prophylaxis: SCDs IV fluids: Banana bag x1 Lines/Tubes: pIV Code Status: Full code Quality VTE Prophylaxis VTE prophylaxis: mechanical ordered Hospitalist MIPS Advance Care Plan I have confirmed that the patient's Advanced Care Plan is present, code status is documented, or surrogate decision maker is listed in patient medical record.: Yes Medication Reconciliation I have utilized all available resources to obtain, update and review the patients current medications (includes all prescriptions, OTC, herbals, cannabis, and nutritional supplements).: Yes
--- OUTSIDE RECORDS SUMMARY | 2024-12-19 15:36 | XMS_ITS | Clinical Summary ---
Author Organization [facility] Address [address] [place] [address] Care Team Providers Care Threading Machine Operator Name Role Phone Unavailable Primary Care Provider Unavailabl e Source Comments [facility],non-owned Affiliates and Associated Physician Practices is amultiple site organization consisting of ambulatory clinics and hospital sitesin [place], [place], [place] and [place]. This disclosure is being madepursuant to the Care Everywhere program and may not contain all information available regarding this patient. Last updated 17.[facility] [employer] Allergies Active Allergy Reactions Criticality Noted Date [...]
--- OUTSIDE RECORDS SUMMARY | 2024-12-19 15:36 | XMS_ITS | Patient Health Record ---
Author Organization [facility] Address [address] [place] [address] Care Team Providers Care Financial Aid Officer Name Role Phone [facility], [facility]. Primary Care Provider [phone] Dr. Bridgett Hernandez [facility] Allergies Allergen (clinical drug ingredient) Drug/Non Drug Allergy documented on EMR Reaction Allergy Type Onset Date Status lisinopril Lisinopril anaphylaxis Drug Allergy Act thea Reason For Referral No Information Medications Medication SIG (Take, Route, Frequency, Duration) Notes Start Date End Date Status amLODIPine Besylate 10 MG 1 tablet Orall y Once a day; Duration: 90 day(s) Active Methotrexate 2.5 MG 2 tablets Orally onc e weekly; Duration: 90 days 12/26/2019 Active Albuterol Sulfate HFA 108 (90 Base) MCG/ACT 2 puffs as needed Inhalation every 4 hrs; Duration: 90 days 11/21/2019 Active Immunizations Vaccine Route [...] W/U Status Risk Notes Problem Essential hypertension (37539658) Essential (primary) hypertension (I10) Active confirmed Problem Tobacco use (542813604) Tobacco use (Z72.0) Active confirmed Problem COPD - Chronic obstructive pulmonary disease (11878908) Chronic obstructive pulmonary disease, unspecified COPD type (J44.9) Active confirmed Problem Rheumatoid arthritis (80270654) Rheumatoid arthritis involving both hands, unspecified rheumatoid factor presence (M06.9) Active confirmed Problem Chronic kidney disease stage 3B (disorder) (507734374) Stage 3b chronic kidney disease (N18.32) Active confirmed Plan Of Treatment Pending Test Test Name Order Date venipuncture 01/11/2014 venipuncture 02/16/2014 venipuncture 11/02/2014 venipuncture 05/13/2015 venipuncture 01/14/2016 VENIPUNCTURE 07/11/2012 VENIPUNCTURE 10/18/2012 VENIPUNCTURE 04/25/2013 VENIPUNCTURE 04/19/2012 VENIPUNCTURE 11/14/2013 VENIPUNCTURE 06/27/2012 Insurance Providers Payer Name Payer Address Payer Phone Subscriber Number Group Number Insured Name Patient Relationship to Insured Coverage Start Date Coverage End Date [place] Attention Claims [address] [place] [id number] Niesha Ceja Self - patient is the insured 2 [employer] [address] [address] [place] [id number] Niesha Ceja Self - patient is the insured 8 Medical (General) History Medical History History ICD Code hypertension tobacco use COPD rheumatoid arthritis crush injury to the left heel CKD Stage 3b Surgical History Surgery Date(Month/Year) Colonoscopy @ [facility] [place] [facility] 07-17-15 [facility] Pneum[facility] 2019
--- OUTSIDE RECORDS SUMMARY | 2024-12-19 15:36 | XMS_ITS | Clinical Summary ---
Author Organization [facility] Address [address] [place] [address] Care Team Providers Care Senior Sales Manager Name Role Phone Castro Spain MD [...] Date Smoking Tobacco: Every Day Cigarettes 0.5 48.4 Started: 08/05/1976 Smokeless Tobacco: Never Tobacco Cessation:Ready [...] or pharmacy Patient declines to respond 01/06/2024 [facility] Utilities Answer Date Recorded In the past 12 months has e [employer], oil, or water [email or web address] threatened to shut off services in your [...] any time in the past 12 m [facility], were you homeless or living in a group home (including now)? 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 Gender Identity Not on file Sexual Orientation Not on file Last Filed Vital Signs Vital Sign Reading Time Taken Comments Blood Pressure 98/62 01/04/2024 1:10 PM HEALTH CARE ADMINISTRATOR Pulse 82 01/04/2024 1:10 PM HEALTH CARE ADMINISTRATOR Temperature 36.3 C (97.3 F) 01/04/2024 1:10 PM HEALTH CARE ADMINISTRATOR Respiratory Rate 18 01/04/2024 1:10 PM HEALTH CARE ADMINISTRATOR Oxygen Saturation 97% 01/04/2024 1:10 PM HEALTH CARE ADMINISTRATOR Inhaled Oxygen Concentration - - Weight 63.9 kg (140 lb 14 oz) 12/12/2023 4:19 AM CDT Height 182.9 cm (6') 12/08/2023 8:43 AM CDT Body Mass Index 19.11 12/08/2023 8:43 AM CDT Plan of Treatment Health Maintenance Due Date Last Done Comments Colorectal Cancer Screening Colonoscopy (10 Years) 1957 DTaP, Tdap and Td Vaccines ( 1 - Tdap) 1976 Pneumococcal Vaccine: 50+ Years (1 of 2 - PCV) 1976 Zoster Vaccines (1 of 2) 05/19/2007 Annual Medicare Wellness Visit 2022 COVID-19 Vaccine (2 - 2024-2 6 season) 2024 01/10/2022 Influenza Adult (#1) 2024 11/23/2023, 01/10/2022 RSV Immunization or 60+ Years (1 - 1-dose 75+ series) 2032 Hepatitis C Completed 12/11/2022, 12/08/2022, 12/08/2022 Hepatitis A Vaccines Aged Out No long er eligible based on patient's age to complete this topic Meningococcal B Vaccine Aged Out No l onger eligible based on patient's age to complete this topic Meningococcal Vaccine Aged Out No tre cornelia eligible based on patient's age to complete this topic RSV Immunizations Under 20 Months Aged Out No longer eligible b ased on patient's age to complete this topic Goals Goal Patient Goal Type Associated Problems Recent Progress Patient-Stated? Author Consistently take medications as Prescribed General No Delia Salinas RN Health - patient able to perform ADLs independently Lifestyle No Renee Price RN Additional Health Concerns Infection Onset Date Last Indicated ESBL - Extended Spectrum Bet a-lactamase Comment:12/04/22 +ESBL Blood. Added from external infection. Source: [facility]. 12/04/2022 [facility] Advance Directives * Full Code (Latest Code Status on File) Date Activated Date Inactivated Comments 12/15/2023 12:27 PM * Full Code Date Activated Date Inactivated Comments 12/08/2023 2:26 PM 12/14/2023 3:47 PM * Full Code Date Activated Date Inactivated Comments 03/06/2020 12:00 AM 03/07/2020 4:54 PM Care Teams Senior Sales Manager Relationship Specialty Start Date End Date Castro Spain MD PCP - General INFECTIOUS DISEASE 12/14/23
--- OUTSIDE RECORDS SUMMARY | 2024-12-19 15:36 | XMS_ITS | Clinical Summary ---
Author Organization [facility] Address [address] 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 Gender Identity Not on file [...] 5 years 2002 Lung Cancer Screening 05/19/2007 RSV VACCINE (60+ or ) (1 - Risk 50-74 years 1-dose series) 05/19/2007 ZOSTER VACCINE (1 of 2) 05/19/2007 INFLUENZA VACCINE (#1) 2024 01/10/2022 COVID-19 Vaccine (2 - 2024-2 6 season) 2024 01/10/2022 COLORECTAL SCREENING 06/16/2032 06/16/2022, 06/17/19 Colorectal Cancer Screening 06/16/2032 Abdominal Aortic Aneurysm (A AA) Screening Completed 12/08/2023, 12/07/2022, 12/04/2022, Additional history exists Medical Devices Explanted Type Area [employer]ellite [employer] Operator Device Identifier Shelf Expiration Date Model / Serial / Lot Bilateral Ureteral Stents Explanted:Qty: 2 on 12/23/2023 by Dm Burr MD at [facility] Bilateral: Ureter Insurance AETNA O MCR AENA O MCR
[2024-12-19] MEDS: THIAMINE HCL INJ 100 MG, FOLIC ACID INJ 1 MG, MAGNESIUM SULFATE INJ 1 GM, MULTIVITAMINS... 125 MG IV CONT (16:46)
[2024-12-19] MEDS: chlordiazePOXIDE (*CRX) 25 MG CAPSULE PO (18:04)
--- NOTE | 2024-12-19 18:58 | ADMGEN ---
This patient, Niesha Ceja, was admitted to IMU Room 206-01 at 1628. Patient/family oriented to hospital policies and general routines including ID bracelet, bed and alarms, visiting hours, pain management, procedures, bathroom and other care routines, personal items, smoking policy, room service/diet, and visiting hours. Information on how to activate the Rapid Response Team has been discussed. Patient/Family are encouraged to report perceived risks to care and to ask questions if they do not understand what they are told or what they should do.
--- OUTSIDE RECORDS SUMMARY | 2024-12-19 19:52 | XMS_ITS | Data Portability ---
Author Organization [place] - [facility], [facility] INSPECTOR PAWNSHOP DETAIL Address [address] [place] [address] 2[address] [place] [address] Care Team Providers Care Chemical Plant Worker Name Role Phone JACK NOVA Primary Care Provider [phone] Assessment No assessment recorded. Plan of Treatment Reminders Order Date Submit Date Provider Last Modified By Organization Details Last Modified Time Details Appointments TELEHEALT H_FOLLOW UP 2024 12:00P Jarrett Velasco MD Not available Not available Not available Lab None recorded. Referral cardiac rehabilit ation provider referral - Initiate monitored exercise program per outpatien t CR policies and procedure s. 2023 024 Not available 09/13/2024 11:52:54 Procedures remote physiolog ic monitorin g (PROC) - TapMe Device enrollmen t for Blood pressure cuff, Scale, & Pulse oximetry -- PLEASE INQUIRE IF PATIENT WILL NEED REGULAR SIZE CUFF OR LARGE CUFF Patient consents to remote patient monitorin g and agrees [facility]. Please order device and schedule onboardin g visit. 2023 024 DOUGLAS [facility], [address], [place], [address], 10/19/2023 15:28:25 rhythm ECG, 1-3 leads; with interpret ation and report (PROC) 2023 024 Not available 10/19/2023 17:15:52 Surgeries None recorded. Imaging US, echocardi ogram, transthor acic, follow-up /limited 2023 024 [email or web address] [facility], [address], [place], [address], 10/21/2023 13:02:29 Medication Orders None recorded. Patient TargetsNo targets recorded. Patient Instructions Encounter Date Encounter Id Patient Instructions Last Modified By Organization Details Last Modified Time 10/19/2023 [id number] high blood pressure: care instructions Not available 10/19/2023 13:57:19 learning about high blood pressure Not available 10/19/2023 13:57:19 chronic care management and care planning* DOUGLAS Not available 10/19/2023 15:03:12 Reason for Referral Cardiac Rehabilitation Provi laura Referral for End stage renal failure on dialysis Initiate monitored exercise program per outpatient CR policies and procedures. Referring Physician: Jonathan Velasco, Cardiovascular Disease, Encounter Date: 10/19/2023 Results Created Date Observation Date Name Description Value Unit Range Abnormal Flag Note LastModifiedBy Organization Detail LastModifiedTime 10/19/19 24 rhyth m ECG, 1-3 leads ; with inter preta tion and repor t (PROC ) No observ ation record ed. [facility] [address], [place], [address], 10/19/2023 16:51:42 10/19/19 24 US, echoc ardio gram, trans thora cic, limit ed No observ ation record ed. [facility] [address], [place], [address], 10/19/2023 16:52:09 10/19/19 24 10/19/2023 US, echoc ardio gram, trans thora cic, follo w-up/ limit ed No observ ation record ed. [facility] [place] [address], [place], [address], 10/20/2023 15:46:50 Result Notes None recorded. Problems Name Problem SNOMED Code Status Onset Date Resolution Date Notes Provider Name and Address Organization Details Recorded Time Palpitations 73760041 Active 2023 Jonathan Velasco MD [address] [facility] [address], [place], [address], [place] [facility] 4 13:47:58 Essential hypertension 68833291 Active 2023 Jonathan Velasco MD [address] [facility] [address], [place], [address], [place] [facility] 13:48:17 Smoker 32190571 Active 2023 Jonathan Velasco MD [address] [facility] [address], [place], [address], [place] [facility] 13:48:56 Multiple premature ventricular complexes 386083605 Active 2023 Jonathan Velasco MD [address] [facility] [address], [place], [address], [place] [facility] 13:55:46 Problem Notes Documentation Provider Name and Address Organization Details Recorded Time Clinical Note : PreOp risk assessment: Patient is scheduled for a Fistula procedure His risk factors are ESRD, HTN, smoking- which are well controlled No recent angina, edema, syncope, overt dyspnea reported Bedside Echo and EKG is normal Overall patient is moderate CV risk for fistula procedure The risk is NOT prohibitory. No changes in medicine suggested Ensure telemonitoring and input/output charting during the procedure inga carpenter, [place] [facility] 10/23/2023 14:47:52 Medical Equipment None Reported. Medications Name Sig Start Date Stop Date Status Note LastModified by Organization Details LastModified Time hydrocodone 5 mg-acetamino phen 325 mg tablet TAKE 1 TABLET BY MOUTH EVERY 4 HOURS NEEDED FOR ACUTE PAIN active Not Available Not Available N ot Available levofloxacin 250 mg tablet active Not Available Not Available Not Available tramadol 50 mg tablet TAKE 1 TABLET BY MOUTH TWICE DAILY NEEDED FOR PAIN active Not Available Not Available No t Available acetaminophe n 500 mg tablet TAKE 1 TABLET BY MOUTH EVERY 12 HOURS NEEDED FOR PAIN. active Not Available Not Available No t Available vancomycin 125 mg capsule TAKE 1 CAPSULE BY MOUTH FOUR TIMES DAILY FOR 10 DAYS active Not Available Not Available Not Available famotidine 20 mg tablet active Not Available Not Available Not Available tamsulosin 0.4 mg capsule active Not Available Not Available Not Available sodium bicarbonate 650 mg tablet active Not Available Not Available Not Available amlodipine 10 mg tablet active Not Available Not Available Not Available cephalexin 500 mg capsule TAKE 1 CAPSULE BY MOUTH EVERY 8 HOURS FOR 7 DAYS active Not Available Not Available No t Available pantoprazole 40 mg tablet,delay ed release active Not Available Not Available N ot Available folic acid 1 mg tablet active Not Available Not Available No t Available levofloxacin 500 mg tablet active Not Available Not Available Not Available oxybutynin chloride 5 mg tablet active Not Available Not Available No t Available finasteride 5 mg tablet active Not Available Not Available Not Available amoxicillin 500 mg-potassium clavulanate 125 mg tablet TAKE 1 TABLET BY MOUTH TWICE DAILY FOR 21 DAYS active Not Available Not Available No t Available metoprolol tartrate 25 mg tablet active Not Available Not Available No t Available glycerin (adult) rectal suppository INSERT 1 SUPPOSITORY INTO RECTUM ONCE DAILY active Not Available Not Available N ot Available Vitals Date Recorded Body weight Oxygen saturation Oxygen saturation in Arterial blood by Pulse oximetry Systolic And Diastolic Provider Name and Address Organization Details Last Updated DateTime 10/19/2023 14114.86 g 99 % 99 % 143/97 mm[Hg] inga lopez [facility] 13:12:57 Social History None recorded. Functional Status None recorded. Mental Status None recorded. Family History Nothing Reported. Medical History No medical history recorded. Past Encounters Encounter ID Performer Location Encounter Start Date Encounter Closed Date Diagnosis/Indication Diagnosis SNOMED-CT Code Diagnosis ICD10 Code Diagnosis IMO Codes Diagnosis Note [id number] MD Phuong [facility] [address] [facility] [address] [place] [address] 10/19/2023 13:13:10 10/19/2023 16:38:19 End stage renal failure on dialysis 983610942 Z99.2 on dialysis 3 times/wk- euvolemic, stable, has bladder cathether and urine bag, recent adm for infections /bleeding- f/b urology. Essential hypertension 33014579 I10 stable on meds- did not bring home meds, ? complaince - will enroll in rpm Smoker 87814318 F17.200 smoking cessation counsellin nohemi done, doesn't use inhalers Multiple p remature ventricular complexes 748001835 I49.3 pt has multiple pvc / pac seen on ekg, but he is asymptomat ic and his EF is normal. He is already on BB, so no further interventi on is required Health Concerns Section Related Observation LastModified by Organization Detai ls LastModified Time None Recorded Concern Status LastModified by Organization Details LastModified Time None Recorded Advance Directives Directive None Recorded Payers Insurance Date Sequence Insurance Name Policy Number Policy Taylor Covered Member ID Taylor Member ID Guarantor Name 12/11/2024 1 [employer] (MEDICARE REPLACEMENT/ ADVANTAGE - HMO) [id number] Aime Ceja [id number] Niesha Ceja Notes Date Note Type Note Provider Name and Address Organization Details Recorded Time 10/19/2023 text/html ROS as noted in the HPI New consultESRD on dialysis, smoker, HTNlives with sister, 1 jenny house, independent for most ADL, doesn't drive, uses a cane to ambulatedenies prior [place], stroke, HF issues- poor historianno edema, no syncope, no angina reported 1 lead EKG shows sinus rhythm with freq PVC- pt denies palpitaionsdid not bring home meds Bedside limited Echo shows normal EF , no effusion Patient gives informed, verbal consent for chronic care management services [facility]. We discussed benefits of care management and the potential for cost sharing expense to the member. Patient states they are not currently receiving CCM services by any other providers. We discussed risks and benefits of remote physiologic monitoring, including the benefits of exacerbation detection and improvement in care, as well as the possibility of a cost sharing expense. Patient consents to remote patient monitoring and the [facility] clinical service. Please send devices and schedule onboarding visit Jonathan Velasco MD [address] [place] [address], [address], [place] [facility] 10/20/2023 14:26:56
--- OUTSIDE RECORDS SUMMARY | 2024-12-19 19:52 | XMS_ITS | Clinical Summary ---
Author Organization [facility] Address [facility] [place] [address] Care Team Providers Care Gripper Attacher Name Role Phone Castro Spain MD Primary [...] pharmacy Patient declines to respond 01/06/2024 [facility] Utilities Answer Date Recorded In the past 12 months has e [employer], oil, or water [employer] threatened to shut off services in your [...] any time in the past 12 m [facility], were you homeless or living in a fpc (including now)? 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 Added from external infection. Source: [facility]. 12/04/2022 Insurance [facility] [employer] MEDICARE Advance Directives * Full Code (Latest Code Status on File) Date Activated Date Inactivated Comments 12/15/2023 12:27 PM * Full Code Date Activated Date Inactivated Comments 12/08/2023 2:26 PM 12/14/2023 3:47 PM * Full Code Date Activated Date Inactivated Comments 03/06/2020 12:00 AM 03/07/2020 4:54 PM Care Teams Gripper Attacher Relationship Specialty Start Date End Date Castro Spain MD PCP - General INFECTIOUS DISEASE 12/14/23
--- OUTSIDE RECORDS SUMMARY | 2024-12-19 19:52 | XMS_ITS | Clinical Summary ---
Author Organization [facility] Address [address] [place] [address] Care Team Providers Care Asic Verification Engineer Name Role Phone Unavailable Primary Care Provider Unavailabl e Source Comments [facility],non-owned Affiliates and Associated Physician Practices is amultiple site organization consisting of ambulatory clinics and hospital sitesin [place], [place], [place] and [place]. This disclosure is being madepursuant to the Care Everywhere program and may not contain all information available regarding this patient. Last updated 17.[facility] [employer] Allergies Active Allergy Reactions Criticality Noted Date [...]
--- OUTSIDE RECORDS SUMMARY | 2024-12-19 19:52 | XMS_ITS | Clinical Summary ---
Author Organization [facility] Address [address] 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
[2024-12-19] MEDS: diazePAM INJ (*CRX) 10 MG/2 ML SYRINGE 5 MG IV PUSH (21:36)
[2024-12-19] MEDS: levETIRAcetam 1500MG/NACL100ML 1,500 MG/100 ML BAG 400 MG IVPB (21:50)
--- NOTE | 2024-12-19 22:17 | PC.NURSE ---
In bedside report at 1909 was told pt came in for seizures and possible stroke while introducing myself pt's speech is slurred which has been since admit. Jaja ZULUAGA assessing pt around 2119and pt starts to have numbness and tingling in extremities. Code stroke called pt taken to CT. While in CT pt starts violently tremoring. Charge nurse called and Jaja ZULUAGA and Garrett plunkett RN came to CT 5 of Valium given at 2135. When back on IMU floor pt was started on keppra and at 2149 pt speech is clear and pt stated I feel like im back to normal and can control my speech now. pt resting comfortably at this time
[2024-12-20] VITALS (34 sets, daily range): BP systolic 143–171; BP diastolic 70–111; PULSE 64–104; RESP 15–19; TEMP 36.4–38.1; O2SAT 99–100
[2024-12-20 04:19] LABS: Hematocrit 25.1 % (42.0-52.0); Hemoglobin 8.1 g/dL (14.0-18.0); Immature Granulocyte Percent A 0.8 % (0-0.5); Lymphocytes Absolute Auto 2.35 K/mm3 (0.9-3.2); Mean Corpuscular HGB Conc 32.3 g/dl (32-36); Mean Corpuscular Hemoglobin 30.8 pg (26-34); Mean Corpuscular Volume 95.4 fl (80-100); Nucleated Red Blood Cells Absolute Auto 0.000 K/mm3 (0.0-0.012); Nucleated Red Blood Cells Perc 0.0 % (0.0-0.2); Platelet Count Result 196 k/mm3 (150-375); Red Blood Count 2.63 M/mm3 (4.6-6.20); White Blood Count 8.6 K/mm3 (4.5-10.0)
[2024-12-20 04:52] LABS: Anion Gap 7 mmol/L (4-12); Blood Urea Nitrogen 27 mg/dL (9-20); Calcium 8.4 mg/dL (8.4-10.2); Carbon Dioxide 30 mmol/L (22-30); Chloride 96 mmol/L (98-107); Cholesterol 159 mg/dL (0-200); Estimated CRCL calculation 7 ml/min; Estimated Glomerular Filt Rate 6; Glucose 98 mg/dL (65-110); HDL Direct 69 mg/dL; Magnesium 2.5 mg/dL (1.6-2.3); Potassium 4.0 mmol/L (3.4-5.0); Sodium 133 mmol/L (137-145); Triglycerides 153 mg/dL (<150)
[2024-12-20 05:49] LABS: Vitamin B12 577.0 pg/mL (239-931)
[2024-12-20 08:25] LABS: Hepatitis B Surface Antigen Negative (Negative)
[2024-12-20 08:45] LABS: Hepatitis B Surface Anti Res Positive
[2024-12-20] MEDS: METOPROLOL TARTRATE 25 MG TABLET PO ×2 (08:58→21:56)
[2024-12-20] MEDS: chlordiazePOXIDE (*CRX) 25 MG CAPSULE PO ×2 (08:58→21:56)
[2024-12-20] MEDS: levETIRAcetam 500MG/NACL 100ML 500 MG/100 ML BAG 400 MG IVPB (08:58)
[2024-12-20] MEDS: FOLIC ACID 1 MG TABLET PO (08:59)
[2024-12-20] MEDS: PANTOPRAZOLE 40 MG TABLET PO (08:59)
[2024-12-20] MEDS: ATORVASTATIN 40 MG TABLET PO (08:59)
[2024-12-20] MEDS: CLOPIDOGREL BISULFATE 75 MG TABLET PO (08:59)
[2024-12-20] MEDS: ASPIRIN 81 MG ENTERIC TABLET PO (08:59)
[2024-12-20] MEDS: FAMOTIDINE 20 MG TABLET PO (08:59)
[2024-12-20] MEDS: FINASTERIDE 5 MG TABLET PO (08:59)
[2024-12-20] MEDS: THIAMINE HCL 200 MG/2 ML VIAL 100 MG IV PUSH (09:00)
--- NOTE | 2024-12-20 09:06 | PCSTNOTE ---
Please refer to the Bedside Swallow Evaluation in the EMR. Please note, silent aspiration cannot be ruled out at bedside.
[2024-12-20] MEDS: ACETAMINOPHEN 500 MG TABLET 1000 MG PO (10:55)
--- NOTE | 2024-12-20 11:18 | P.PNIM_ITS ---
Progress Note: A&P Assessment and Plan (1) Dysarthria: Code(s): R47.1 - Dysarthria and anarthria Status: Acute Assessment and Plan: The patient reports he has been experiencing intermittent dysarthria and expr essive aphasia this afternoon. He reports his symptoms completely resolved and then returned acutely at 9:00 p.m.. Discovery of symptoms at 9:10 p.m. Code stroke activated. Patient taken for emergent CT/CTA. Stroke scale completed prior to imaging, scored a total of 6 due to a mild left facial droop, dysarthria, expressive aphasia, and a left lower extremity drift. Patient has no prior knowledge of CVA, however told he has had a previous stroke due to his earlier head CT showing multiple old lacunar infarcts. During the patient's episode of dysarthria/expressive aphasia he had left-sided facial twitching and moderate amplitude muscle spasms to the bilateral upper extremities. Patient remained conscious and no disorientation noted. He was given an additional 5 mg IV of Valium and started on Keppra. Post imaging the patient's dysarthria and expressive aphasia have significantly improved. Head CT showed no acute abnormalities. 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 - neurology consulted - check lipid panel and A1c - echo with bubble study 12/19/24 TTE LVEF 55-60%, moderate anterior pericardial effusion - MRI - ST/PT/OT evaluation - patient additionally has new seizure-like activity (sequela of CVA versus alcohol withdrawal induced) started on Keppra - started atorvastatin, Plavix, aspirin daily - telemetry monitoring (2) Seizure-like activity: Code(s): R56.9 - Unspecified convulsions Status: Acute Assessment and Plan: Seizure-like activity described as shaking of unknown duration witnessed by patient's family on 12/19. No prior history of seizures. Does have history of alcohol abuse with last drink 1 week ago. New onset seizures versus alcohol withdrawal seizures? Patient additionally had witnessed left-sided facial twitching during his evaluation in the emergency department that resolved with IV Valium. Recurrent this evening at 21:10, see note above. - seizure precaution - neurology consulted - CIWA and protocol in place - start Keppra, loading dose of 1500 mg and 500 mg b.i.d. IVPB (3) Alcohol abuse: Code(s): F10.10 - Alcohol abuse, uncomplicated Status: Acute Assessment and Plan: Daily ETOH use: 1/2 pint to 1 pint for the past 10 years - last drink: 1 week ago prior to admission on 12/19 - CIWA protocol in place Diazepam PRN Librium prn seizure precautions neurochecks Q2H - banana bag x1, folic acid/thiamine daily - folic acid and thiamine levels pending --Thiamine 500mg q8 x3 doses - antiemetics PRN (4) ESRD on dialysis: Code(s): N18.6 - End stage renal disease; Z99.2 - Dependence on renal dialysis Status: Acute Assessment and Plan: History of end-stage renal disease on dialysis Mondays, Wednesdays, Fridays. Last treatment this past Wednesday on 12/18, received full treatment. - nephrology consulted for inpatient dialysis (5) Hypertension: Qualifiers: Hypertension type: secondary to other renal disorders Qualified Code(s): I15.1 - Hypertension secondary to other renal disorders Code(s): I10 - Essential (primary) hypertension Status: Acute Assessment and Plan: - chronic, currently 169/88 - continue home medications: Amlodipine, metoprolol - hydralazine p.r.n. for BP greater than 180/90 - monitor (6) Urinary retention: Code(s): R33.9 - Retention of urine, unspecified Status: Acute Assessment and Plan: Urinary retention previously. Discharged with a rubi catheter Started on tamsulosin 0.4mg, increase to 0.8mg since BP uncontrolled --DC rubi today --Straight cath if >300ml, bladder scan q6 post void --If needs frequent straight caths will plan to replace rubi catheter (7) Pericardial effusion: Code(s): I31.39 - Other pericardial effusion (noninflammatory) Status: Acute Assessment and Plan: Noted on echo, LVEF 55-60% moderate pericardial effusion Check inflammatory markers, Follow up echo outpatient Plan Diet: Renal GI Prophylaxis: N/a DVT Prophylaxis: SCDs IV fluids: Banana bag x1 Lines/Tubes: pIV Code Status: Full code Time Spent With Patient Time: 57 minutes Subjective Date/time seen: 12/20/24 11:18 Interval history: VSS. No chest pain or shortness of breath, no tremors Discussed alcohol cessation No abdominal pain 69 y/o M with PMH of alcohol abuse, ESRD on HD (M/W/F), anemia in setting of CKD, GERD, and hypertension presents here with seizure-like activity. Inter mittent tremors reported without loc Review of Systems Review of Systems: All systems reviewed & are unremarkable except as noted in HPI and below Exam Narrative: General - Awake and alert. No acute distress Eyes - PERRLA, EOM intact ENT - No thrush, No erythema Neck - No noticeable or palpable swelling Lymph Nodes - No lymphadenopathy Cardiovascular - RRR no m/r/g, no JVD Lungs: Clear to auscultation, No wheezing, use of accessory muscles, no crackles Skin - Skin warm and dry, no wounds or rashes Abdomen - Normal bowel sounds, abdomen soft and nontender Extremities - No edema, cyanosis or clubbing Musculoskeletal - 5/5 strength, normal range of motion, no swollen or erythematous joints. Neurological ? Alert and oriented x 3, Mild left sided weakness, mild dysarthria Psych: Normal mood and affect Objective Data Vital Signs Vital Signs: Vital Signs - 24 hr 12/19/24 11:59 12/19/24 12:13 12/19/24 12:15 Temperature 97.2 F L Pulse Rate 80 73 73 Respiratory Rate 18 22 H 19 Blood Pressure 182/99 H Pulse Oximetry 100 100 100 Oxygen Delivery 12/19/24 12:17 12/19/24 12:20 12/19/24 12:32 Temperature Pulse Rate 73 Respiratory Rate 23 H Blood Pressure 152/115 H Pulse Oximetry 99 100 100 Oxygen Delivery Room Air Room Air 12/19/24 13:04 12/19/24 13:15 12/19/24 13:55 Temperature Pulse Rate 75 73 70 Respiratory Rate 24 H 14 27 H Blood Pressure Pulse Oximetry 100 100 100 Oxygen Delivery 12/19/24 14:00 12/19/24 14:01 12/19/24 14:31 Temperature Pulse Rate 69 68 72 Respiratory Rate 15 19 13 Blood Pressure 174/96 H 183/101 H Pulse Oximetry 99 99 100 Oxygen Delivery 12/19/24 15:01 12/19/24 15:32 12/19/24 16:09 Temperature Pulse Rate 69 72 70 Respiratory Rate 14 19 20 Blood Pressure 169/98 H 164/95 H Pulse Oximetry 100 100 100 Oxygen Delivery 12/19/24 18:00 12/19/24 20:00 12/19/24 20:00 Temperature 98.2 F Pulse Rate 78 74 77 Respiratory Rate 18 Blood Pressure 166/98 H Pulse Oximetry 100 Oxygen Delivery 12/19/24 21:25 12/19/24 22:00 12/19/24 23:57 Temperature Pulse Rate 72 80 Respiratory Rate 18 Blood Pressure 188/101 H Pulse Oximetry 99 Oxygen Delivery Room Air 12/20/24 00:00 12/20/24 00:00 12/20/24 02:00 Temperature 97.6 F Pulse Rate 78 85 75 Respiratory Rate 16 Blood Pressure 150/70 H Pulse Oximetry 100 Oxygen Delivery 12/20/24 03:25 12/20/24 04:00 12/20/24 04:00 Temperature 98.0 F Pulse Rate 64 70 Respiratory Rate 18 Blood Pressure 168/86 H Pulse Oximetry 100 Oxygen Delivery Room Air 12/20/24 06:00 12/20/24 08:00 12/20/24 08:00 Temperature 98.2 F Pulse Rate 75 74 69 Respiratory Rate 19 Blood Pressure 169/89 H Pulse Oximetry 100 Oxygen Delivery 12/20/24 08:58 12/20/24 10:00 Temperature Pulse Rate 76 69 Respiratory Rate Blood Pressure Pulse Oximetry Oxygen Delivery Intake/Output Intake/Output: Intake & Output 12/17/24 12/18/24 12/19/24 12/20/24 23:59 23:59 23:59 23:59 Intake Total 670 1110 Output Total 100 400 Balance 570 710 Meds/Results Medications: Active Medications Generic Name Dose Route Start Last Admin Trade Name Freq PRN Reason Stop Dose Admin Acetaminophen 1,000 mg 12/20/24 10:45 12/20/24 10:55 Acetaminophen 500 Mg Tablet PO 1,000 mg Q6H PRN Administration Mild Pain (1-3) or Fever Amlodipine Besylate 10 mg 12/20/24 09:00 12/20/24 08:59 Amlodipine Besylate 10 Mg Tablet PO 10 mg DAILY ANDER Administration Aspirin 81 mg 12/20/24 09:00 12/20/24 08:59 Aspirin 81 Mg Enteric Tablet PO 81 mg QAM ANDER Administration Atorvastatin Calcium 40 mg 12/20/24 09:00 12/20/24 08:59 Atorvastatin 40 Mg Tablet PO 40 mg DAILY ANDER Administration Cephalexin HCl 500 mg 12/19/24 22:05 Cephalexin 500 Mg Capsule PO 12/20/24 23:00 Q6H ANDER Chlordiazepoxide HCl 25 mg 12/19/24 15:10 12/20/24 08:58 Chlordiazepoxide (*Crx) 25 Mg Capsule PO 25 mg Q6H PRN Administration Withdrawal Clopidogrel Bisulfate 75 mg 12/20/24 09:00 12/20/24 08:59 Clopidogrel Bisulfate 75 Mg Tablet PO 75 mg QAM ANDER Administration Diazepam 5 - 10 mg 12/19/24 13:03 12/19/24 13:11 Diazepam Inj (*Crx) 10 Mg/2 Ml Syringe IV PUSH 5 mg Q5M PRN Administration CIWA > 15 Epoetin Rodney-epbx 10,000 units 12/20/24 18:26 Epoetin Rodney-Epbx 10,000 Units/Ml Vial IV PUSH 12/20/24 18:27 ONCE ONE Famotidine 20 mg 12/20/24 09:00 12/20/24 08:59 Famotidine 20 Mg Tablet PO 20 mg DAILY ANDER Administration Finasteride 5 mg 12/20/24 09:00 12/20/24 08:59 Finasteride 5 Mg Tablet PO 5 mg DAILY ANDER Administration Folic Acid 1 mg 12/20/24 09:00 12/20/24 08:59 Folic Acid 1 Mg Tablet PO 1 mg DAILY ANDER Administration Hydralazine HCl 10 mg 12/19/24 15:13 12/19/24 22:35 Hydralazine Hcl 20 Mg/Ml Vial IV PUSH 10 mg Q8H PRN Administration Blood Pressure - High Levetiracetam 500 mg in 100 mls @ 400 mls/hr 12/20/24 09:00 12/20/24 08:58 Keppra Iv IVPB 400 mls/hr Q12HR ANDER Administration Albumin Human 50 mls @ 999 mls/hr 12/20/24 06:26 Albutein IVPB 01/19/25 06:25 Q10M PRN HYPOTENSION Metoprolol Tartrate 25 mg 12/20/24 09:00 12/20/24 08:58 Metoprolol Tartrate 25 Mg Tablet PO 25 mg Q12HR ANDER Administration Miscellaneous Information 0 each 12/19/24 00:01 12/20/24 09:12 Cephalexin Enternal Med Rec Says For 7 Days Filled 12/13 Is Pt Still Taking? XX 01/18/25 00:00 Not Given CLARIFY ANDER Ondansetron HCl 4 mg 12/19/24 13:03 12/19/24 13:11 Ondansetron Inj 4 Mg/2 Ml Vial IV PUSH 4 mg Q6H PRN Administration Nausea And Vomiting Pantoprazole Sodium 40 mg 12/20/24 09:00 12/20/24 08:59 Pantoprazole 40 Mg Tablet PO 40 mg DAILY ANDER Administration Perflutren Lipid Microsphere 0 ml 12/19/24 22:11 Perflutren Lipid Microspheres 1.5 Ml Vial Diluted To 10 Ml Total Volume IV PUSH 12/22/24 22:11 ONCE PRN adequate visualization Protocol Tamsulosin HCl 0.4 mg 12/20/24 21:00 Tamsulosin Hcl 0.4 Mg Capsule PO HS ANDER Thiamine HCl 100 mg 12/20/24 09:00 12/20/24 09:00 Thiamine Hcl 200 Mg/2 Ml Vial IV PUSH 100 mg DAILY ANDER Administration Radiology Results: ITS Impressions Head CT 12/19/24 21:36 IMPRESSION: No acute intracranial hemorrhage or extra axial fluid collections. Chronic white matter microangiopathic changes. There is a chronic lacunar infarct in the left basal ganglia. All CT scans at this facility are performed using low dose modulation techniques as appropriate to perform exam including the following: automated exposure control; use of iterative reconstruction technique; adjustment of the mA and/or kV according to patient size (this includes techniques or standardized protocols for targeted exams where dose is matched to indication/reason for exam). 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 Correlate clinically. There is marked atherosclerotic vascular calcification of the intracranial carotid artery causing moderate stenosis. No large vessel occlusion is seen. Labs Labs: Laboratory Results - last 24 hr 12/19/24 12/19/24 12/20/24 12:56 22:29 04:01 WBC 9.4 8.6 RBC 3.09 L 2.63 L Hgb 9.7 L 8.1 L Hct 29.8 L 25.1 L MCV 96.4 95.4 MCH 31.4 30.8 MCHC 32.6 32.3 RDW 17.9 H 17.8 H Plt Count 210 196 MPV 9.3 9.5 Immature Gran % (Auto) 0.7 H 0.8 H Neut % (Auto) 76.1 H 60.8 Lymph % (Auto) 14.1 L 27.2 [place] % (Auto) 6.5 8.3 Eos % (Auto) 2.2 2.3 Baso % (Auto) 0.4 0.6 Lymph # (Auto) 1.32 2.35 [place] # (Auto) 0.6 0.7 H Eos # (Auto) 0.2 0.2 Baso # (Auto) 0.0 0.1 Abs Immat Gran (auto) 0.07 H 0.07 H Absolute Neuts (auto) 7.1 H 5.3 Absolute Nucleated RBC 0.000 0.000 Nucleated RBC % 0.0 0.0 PT 12.6 INR 0.9 APTT 24.2 Sodium 136 L 133 L Potassium 4.0 4.0 Chloride 94 L 96 L Carbon Dioxide 33 H 30 Anion Gap 9 7 BUN 21 H 27 H Creatinine 8.23 H 8.66 H Estim Creat Clear Calc 7 7 Estimated GFR 7 L 6 L Glucose 122 H 98 POC Capillary Glucose 121 H Calcium 9.0 8.4 Phosphorus 3.4 3.6 Magnesium 2.2 2.5 H Total Bilirubin 0.6 AST 24 ALT 12 Alkaline Phosphatase 66 Total Protein 7.6 Albumin 4.1 Triglycerides 153 H Cholesterol 159 LDL Cholesterol Direct 36 HDL Direct 69 Vitamin B12 577.0 Folate > 20.0 H Urine Color Yellow Urine Appearance Turbid H Urine pH 8.5 Ur Specific [place] 1.009 Urine Protein 3+ H Urine Glucose (UA) Negative Urine Ketones Negative Ur Blood (Man) 1+ H Urine Nitrate Negative Urine Bilirubin Negative Urine Urobilinogen 0.2 Add Ur Microanalysis Reviewed Leukocyte Esterase Rfl 3+ H Urine RBC 6-10 H Urine WBC >100 H Ur Squamous Epith Cells None seen Urine Bacteria 4+ H Urine Casts >20 Ethyl Alcohol < 10 Hep Bs Antigen Negative Hep Bs Antibody Positive Quality VTE Prophylaxis VTE prophylaxis: mechanical ordered Hospitalist MIPS Advance Care Plan I have confirmed that the patient's Advanced Care Plan is present, code status is documented, or surrogate decision maker is listed in patient medical record.: Yes Medication Reconciliation I have utilized all available resources to obtain, update and review the patients current medications (includes all prescriptions, OTC, herbals, cannabis, and nutritional supplements).: Yes
--- NOTE | 2024-12-20 11:27 | WPDNEURCNPN ---
Assessment and Plan Assessment and plan (1) Alcohol abuse: Code(s): F10.10 - Alcohol abuse, uncomplicated Status: Acute (2) Seizure-like activity: Code(s): R56.9 - Unspecified convulsions Status: Acute Plan 1. Chronic renal disease for which patient is on hemodialysis as mentioned above 2. Chronic anemia related to the chronic kidney disease. 3. Hypertension 4. Admitted for seizure-like activity with CT scan revealing only chronic white matter microangiopathic changes but no intracranial bleed, will need the MRI of the brain for the first-time seizure and then treated accordingly . Consult date: 12/20/24 HPI: Niesha Ceja is a 69 year old male admitted to the hospital through the emergency room for the seizure-like activity. Patient has ongoing history of chronic alcoholism, but no previous history of seizure in the past. Patient is reportedly dialysis patient and had the dialysis treatment yesterday without any problem reportedly he had shaking episode for unclear duration and as per the EMS was postictal. And patient himself reported twitching to his left side of his face at that particular time. Medications include 1.amlodipine 10mg daily, 2. Famotidine 20mg daily 3. Finasteride 5mg daily 4. Metoprolol 25mg b.i.d. 5. Pantoprazole 40mg daily 6. Tamsulosin 0.4mg at night 7. Tramadol 50mg b.i.d. p.r.n. he is reportedly allergic to Donovan inhibitors, lisinopril, and oxycodone. He has ongoing history of chronic renal disease complicated by the anemia and has been receiving end-stage stage renal disease dialysis treatment on Wednesday and Wednesday, GERD and hypertension. Is currently alcohol intake or 1 drink per week currently everyday smoker and on initial exam he was found to have no major abnormalities in the ER. His vital signs were compatible with blood pressure 182/99 CBC with hemoglobin of only 9.7, BMP with BUN of 21 creatinine of 8.23, UA abnormal, alcohol level less than 10, CT of the head without any bleed but chronic white matter microangiopathic changes and a chronic lacunar infarct in left basal ganglia, head and neck CTA with irregularity within the right vertebral artery at the level of C5 and C6 suggesting the possibility of the pseudoaneurysm and marked atherosclerotic changes, subsequently on the floor he mentioned that he has been experiencing intermittent dysarthria and expressive difficulties though the symptoms completely resolved Even though his CT scan of the head was negative for the bleed or any major stroke. Review of Systems Review of Systems: All systems reviewed & are unremarkable except as noted in HPI and below PMFSH Past Medical History Medical History (Updated 12/20/24 @ 11:39 by Robel Otero MD) Seizure after head injury Anemia in CKD (chronic kidney disease) ESRD on dialysis M/W/F GERD (gastroesophageal reflux disease) Hypertension Family History Family History Father Diabetes mellitus Mother Hypertension Social History Social History Smoking status: Current every day smoker Tobacco type: cigarettes Second hand tobacco smoke exposure: Yes Alcohol intake: current Drinks per week: 1 Substance use: never Substance use type: does not use Other substance usage details: drinks vodka/beer Do You Feel Safe in your Home?: Yes Lack of Transportation: No Lack of Food: Never True Current Housing: I Have Housing Concerned About Future Housing: No Difficulty Paying Gas/Electric Bills: No Difficulty Paying for Meds: No Currently Unemployed: No Education: High School Diploma/GED Difficulty w/ Childcare or Family Care: No Spiritual care concerns: No Meds Home Medications and Allergies Home Medications ?Medication ?Instructions ?Recorded ?Confirmed ?Type acetaminophen 500 mg capsule 500 mg PO Q6H PRN pain 03/12/24 12/19/24 History amlodipine 10 mg tablet 10 mg PO DAILY 03/12/24 12/19/24 History famotidine 20 mg tablet 20 mg PO DAILY 03/12/24 12/19/24 History finasteride 5 mg tablet 5 mg PO DAILY 03/12/24 12/19/24 History metoprolol tartrate 25 mg tablet 25 mg PO BID 03/12/24 12/19/24 History pantoprazole 40 mg tablet,delayed 40 mg PO DAILY 03/12/24 12/19/24 History release tamsulosin 0.4 mg capsule 0.4 mg PO HS 03/12/24 12/19/24 History tramadol 50 mg tablet 50 mg PO BID PRN pain 03/12/24 12/19/24 History cephalexin 500 mg capsule 500 mg PO Q6H 7 days #28 caps 12/10/24 12/19/24 Rx Allergies Allergy/AdvReac Type Severity Reaction Status Date / Time DONOVAN Inhibitors Allergy Severe Unknown Verified 12/19/24 18:31 lisinopril Allergy Intermediate Itching Verified 12/19/24 18:31 Vital Signs Vital Signs - 24 hr 12/19/24 11:59 12/19/24 12:13 12/19/24 12:15 Temperature 36.2 C L Pulse Rate 80 73 73 Respiratory Rate 18 22 H 19 Blood Pressure 182/99 H Pulse Oximetry 100 100 100 Oxygen Delivery 12/19/24 12:17 12/19/24 12:20 12/19/24 12:32 Temperature Pulse Rate 73 Respiratory Rate 23 H Blood Pressure 152/115 H Pulse Oximetry 99 100 100 Oxygen Delivery Room Air Room Air 12/19/24 13:04 12/19/24 13:15 12/19/24 13:55 Temperature Pulse Rate 75 73 70 Respiratory Rate 24 H 14 27 H Blood Pressure Pulse Oximetry 100 100 100 Oxygen Delivery 12/19/24 14:00 12/19/24 14:01 12/19/24 14:31 Temperature Pulse Rate 69 68 72 Respiratory Rate 15 19 13 Blood Pressure 174/96 H 183/101 H Pulse Oximetry 99 99 100 Oxygen Delivery 12/19/24 15:01 12/19/24 15:32 12/19/24 16:09 Temperature Pulse Rate 69 72 70 Respiratory Rate 14 19 20 Blood Pressure 169/98 H 164/95 H Pulse Oximetry 100 100 100 Oxygen Delivery 12/19/24 18:00 12/19/24 20:00 12/19/24 20:00 Temperature 36.8 C Pulse Rate 78 74 77 Respiratory Rate 18 Blood Pressure 166/98 H Pulse Oximetry 100 Oxygen Delivery 12/19/24 21:25 12/19/24 22:00 12/19/24 23:57 Temperature Pulse Rate 72 80 Respiratory Rate 18 Blood Pressure 188/101 H Pulse Oximetry 99 Oxygen Delivery Room Air 12/20/24 00:00 12/20/24 00:00 12/20/24 02:00 Temperature 36.4 C Pulse Rate 78 85 75 Respiratory Rate 16 Blood Pressure 150/70 H Pulse Oximetry 100 Oxygen Delivery 12/20/24 03:25 12/20/24 04:00 12/20/24 04:00 Temperature 36.7 C Pulse Rate 64 70 Respiratory Rate 18 Blood Pressure 168/86 H Pulse Oximetry 100 Oxygen Delivery Room Air 12/20/24 06:00 12/20/24 08:00 12/20/24 08:00 Temperature 36.8 C Pulse Rate 75 74 69 Respiratory Rate 19 Blood Pressure 169/89 H Pulse Oximetry 100 Oxygen Delivery 12/20/24 08:58 12/20/24 10:00 Temperature Pulse Rate 76 69 Respiratory Rate Blood Pressure Pulse Oximetry Oxygen Delivery Exam Narrative: Revealed him to be awake alert cooperative in no obvious acute distress, sitting in chair without any truncal instability, able to follow the verbal commands appropriately, his speech not dysphasic not dysarthric, head normocephalic with no bruit neck supple with no bruits heart regular with no murmur lungs clear and soft, neurologically normal mental status normal speech, pupils round regular navarrete of the vision, full extraocular movements full ,face symmetrical , Tongue midline motor examination revealed him to have generally decreased strength with deep tendon reflexes 1+ plantars downgoing and no gross cerebellar deficit. Results Labs 12/20/24 04:01 12/20/24 04:01 Labs: Short CBC 12/19/24 12/20/24 Range/Units 12:56 04:01 WBC 9.4 8.6 (4.5-10.0) K/mm3 Hgb 9.7 L 8.1 L (14.0-18.0) g/dL Hct 29.8 L 25.1 L (42.0-52.0) % Plt Count 210 196 (150-375) k/mm3 BMP 12/19/24 12/20/24 12:56 04:01 Sodium 136 L 133 L Potassium 4.0 4.0 Chloride 94 L 96 L Carbon Dioxide 33 H 30 BUN 21 H 27 H Creatinine 8.23 H 8.66 H Glucose 122 H 98 Calcium 9.0 8.4 Liver Function 12/19/24 Range/Units 12:56 Total Bilirubin 0.6 (0.2-1.3) mg/dL AST 24 (17-59) U/L ALT 12 (6-50) U/L Alkaline Phosphatase 66 (38-126) U/L Albumin 4.1 (3.5-5.1) g/dL Urine 12/19/24 Range/Units 12:56 Urine Color Yellow (Yellow) Urine Appearance Turbid H (Clear) Urine pH 8.5 (5.0-9.0) Ur Specific [place] 1.009 (1.001-1.035) Urine Protein 3+ H (Negative) mg/dL Urine Glucose (UA) Negative (Negative) mg/dL
--- NOTE | 2024-12-20 14:10 | PCSTNOTE ---
Please refer to the Modified Barium Swallow Evaluation in the EMR. Pt is 69 year old male who presents to the hospital after a seizure-like episode that resulted in L facial droop, dysarthria, and occasional word-finding difficulties. Pt?s head CT was reported to be stable in appearance with multiple old lacunar infarcts. Pt was seen for a beside swallow evaluation that recommended a modified barium swallow study to further investigate the safety of his swallow. Upon discussion with the [employer], pt reports a globus sensation at the level of his thyroid notch and states that ?food gets stuck?. Prior to swallow study, pt was seated upright in fluoro chair and a good historian of his past medical history and recent events. Pt states no previous swallow difficulty before this admission. Within the study, pt was presented with thin liquid barium (via tsp, cup edge, and straw drink), barium pudding, and hard solids coated in barium pudding. Pt self-fed for a majority of trials. Pt?s oral phase was notable for consistent premature loss of the bolus to the pyriform sinuses and vallecula across consistencies due to reduced lingual to palatal seal. Across all volumes of thin liquid trials, pt was seen with inconsistent high penetration x3 that clears with the force of the swallow. No aspiration was observed across all trials of thin liquids. No penetration or aspiration was noted across trials of puree and hard solid. Across all consistencies, oral, vallecular, and pyriform sinus residue was noted. Pt with moderate amounts of vallecular and oral residue due to reduced tongue base retraction and reduced lingual elevation/strength. ?Pt consistently reported globus sensation when residue was present; however, was not noted to independently initiate a repeat swallow. The [employer] cued a repeat swallow, and residue was cleared from the oral cavity and vallecula consistently. A liquid wash was also observed to be beneficial in clearing oral and pharyngeal residue. ? Recommendations: ? 1. Regular Diet (Level 7) and Thin Liquids (Level 0)? 2. Upright with all PO; small bites and sips; alternating solids and liquids; repeat swallow when globus sensation is present? 3.Pt be seen for skilled ST treatment to ensure use of strategies (alternating bites and sips; initiating a dry/repeat swallow when globus sensation is present) and provide tongue base strengthening exercises.? ?
--- NOTE | 2024-12-20 15:15 | P.CONNP_ITS ---
Assessment and Plan Assessment and plan (1) End stage renal disease: Code(s): N18.6 - End stage renal disease Status: Chronic Assessment and Plan: * HD today * continue outpatient schedule of Wednesday/Wednesdays/Wednesday while hospitalized * follow electrolytes, volume status, and clearance * outpatient dialysis clinic = [facility] * primary supervisor display fabrication = Dr. Deluca (2) Dysarthria: Code(s): R47.1 - Dysarthria and anarthria Status: Acute Assessment and Plan: * as reported before admission * recurred during while in ER * associated with: * mild left facial droop * expressive aphasia * left lower extremity drift * head CT negative * Head/neck CTA noted: * irregularity within the right vertebral artery at the level of C5-C6 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 * marked atherosclerotic vascular calcification of the intracranial carotid artery causing moderate stenosis * no LVO * Brain MRI (12/20): * old lacunar infarcts at the bilateral thalami, basal ganglia and internal capsules * no acute intracranial process or abnormal enhancing brain lesions * extensive periventricular predominant nonspecific white matter T2 hyperintensity consistent with chronic small vessel ischemic disease * clinical improvement in symptoms post-imaging * Neurology following * ST/PT/OT following * on ASA/plavix/statin (3) Seizure-like activity: Code(s): R56.9 - Unspecified convulsions Status: Acute Assessment and Plan: * suggested by shaking per patient's family * during episode of dysarthria/expressive aphasia in ER, noted left-sided facial twitching and moderate amplitude muscle spasms to the bilateral upper extremities * resolved with IV valium * new onset seizure versus alcohol withdrawal seizure?? * Neurology following * on Keppra (4) UTI (urinary tract infection): Code(s): N39.0 - Urinary tract infection, site not specified Status: Acute Assessment and Plan: * admission UA suggestive * urine culture with Providencia stuartii * on antibiotics (5) Anemia: Code(s): D64.9 - Anemia, unspecified Status: Chronic Assessment and Plan: * due to ESRD * Epogen with HD * follow trend of H/H (6) Hypertension: Qualifiers: Hypertension type: secondary to other renal disorders Qualified Code(s): I15.1 - Hypertension secondary to other renal disorders Code(s): I10 - Essential (primary) hypertension Status: Chronic Assessment and Plan: * resumed on home medications * hydralazine PRN * follow trend of hemodynamics - (7) Urinary retention: Code(s): R33.9 - Retention of urine, unspecified Status: Chronic Assessment and Plan: * known history * previously had a rubi catheter * follow bladder scans * on flomax (8) Alcohol abuse: Code(s): F10.10 - Alcohol abuse, uncomplicated Status: Acute Assessment and Plan: * known history * CIUT protocol in place * on thiamine and folate I will continue to follow the patient with you while he remains hospitalized and make further recommendations as deemed necessary. Thank you for allowing me to participate in the care of this patient. L History of Present Illness Reason for Consult Consult date: 12/20/24 Reason for consult: end stage renal disease Chief Complaint Chief complaint: alcohol withdrawl seizure History of Present Illness Narrative: The patient is a 69-year-old male with a past medical history as outlined below who presented to [facility] Emergency Room due to concerns of possible seizure activity. Most of the information that I have obtained is from review of the electronic medical record as well as discussion with the other physician/nurses involved in the patient's care as difficult for the patient to relate the events and issues that led to his presentation to the emergency room. The patient's family reports that the patient was having a shaking episode for on known duration appeared of time. This episode of shaking apparently stopped/ resolved without any specific intervention. However, because this was an acute change from his baseline mental/neurological status, EMS was called for further assistance. By the time of arrival of EMS, as already mentioned above, the episode already resolved but he seemed to be somewhat confused and possibly postictal. He was subsequently transferred to the emergency room for further assessment. Workup and evaluation emergency room demonstrated the patient be hemodynamically stable, if not a bit hypertensive, and afebrile. Routine blood work demonstrated normal white blood cell count, hemoglobin 9.7, normal coagulation studies, a chemistry panel consistent with his known history of end-stage renal disease, and a urinalysis that was somewhat suggestive of urinary tract infection. Initial head CT showed stable appearance of multiple old lacunar infarcts with no acute intracranial findings. His alcohol level was 0 an EKG did not demonstrate any findings of acute ischemia. While he was in the ER, his family noted that he was having twitching to the left side of his face which apparently resolved with the use of IV Valium . There was a concern that his symptomatology could be secondary to a alcohol withdrawal seizure given his known extensive history of alcohol intake verses the possibility of some other acute /mild CVA. In association with a left facial twitching, he apparently was also noted to have slurred speech and difficulty word finding also while he was down in the emergency room. Other associated symptoms included numbness to his bilateral hands, right tongue numbness as well as a perceived left facial droop. It should be noted the patient had further multiple imaging studies done as outlined below and by the time these imaging studies were done, his neurological status appears to be back to baseline. Given the concern for a possible seizure and or possible TIA/CVA, the patient was admitted to the hospital for further evaluation therapy. Since his admission, he has not had any other further neurological sequelae or symptoms similar to what occurred in the emergency room. He has already been seen by Neurology with subsequent recommendations noted. Renal consultation was requested due to his end-stage renal disease. The patient normally dialyzes on a Wednesday, Wednesday, Wednesday dialysis schedule at [facility] under the care of Dr. Ralf Deluca. His last dialysis treatment the day before yesterday. As far as I am aware, his dialysis treatment the day before his presentation to the ER was otherwise uneventful. As far as I am aware, the patient is compliant with his dialysis treatments although his known history of alcohol abuse can be an issue/problem at times. Currently, at the time my evaluation, he appears to be tolerating his dialysis treatment reasonably well (seen on HD at 3:05pm). Review of Systems 2 Review of Systems: As per HPI. [facility] Past Medical History Medical History (Updated 12/21/24 @ 18:45 by Omar Arguello MD) Seizure after head injury Anemia in CKD (chronic kidney disease) ESRD on dialysis M/W/F GERD (gastroesophageal reflux disease) Hypertension Family History Family History Father Diabetes mellitus Mother Hypertension Social History Social History Smoking status: Current every day smoker Tobacco type: cigarettes Second hand tobacco smoke exposure: Yes Alcohol intake: current Drinks per week: 1 Substance use: never Substance use type: does not use Other substance usage details: drinks vodka/beer Do You Feel Safe in your Home?: Yes Lack of Transportation: No Lack of Food: Never True Current Housing: I Have Housing Concerned About Future Housing: No Difficulty Paying Gas/Electric Bills: No Difficulty Paying for Meds: No Currently Unemployed: No Education: High School Diploma/GED Difficulty w/ Childcare or Family Care: No Spiritual care concerns: No Meds Home Medications and Allergies Home Medications ?Medication ?Instructions ?Recorded ?Confirmed ?Type acetaminophen 500 mg capsule 500 mg PO Q6H PRN pain 12/19/24 History amlodipine 10 mg tablet 10 mg PO DAILY 03/12/2411/30 History famotidine 20 mg tablet 20 mg PO DAILY 03/12/2411/30 History finasteride 5 mg tablet 5 mg PO DAILY 03/12/2412/19 History metoprolol tartrate 25 mg tablet 25 mg PO BID 03/12/24 12/19/24 History pantoprazole 40 mg tablet,delayed 40 mg PO DAILY 03/1212/19/24 History release tamsulosin 0.4 mg capsule 0.4 mg PO HS 03/12/24 History tramadol 50 mg tablet 50 mg PO BID PRN pain 12/19/24 History cephalexin 500 mg capsule 500 mg PO Q6H 7 days #28 cap s 12/10/24 12/19/24 Rx Allergies Allergy/AdvReac Type Severity Reaction Status Date / Time ISRA[place] Inhibitors Allergy Severe Unknown Verified 12/19/24 18:31 lisinopril Allergy Intermediate Itching Verified 12/19/24 18:31 Vital Signs Vital Signs Temp Pulse Resp BP Pulse Ox O2 Del Method 12/20/24 15:15 72 164/93 H 12/20/24 15:00 73 165/93 H 12/20/24 14:45 73 159/92 H 12/20/24 14:30 78 159/93 H 12/20/24 14:15 72 154/86 H 12/20/24 14:07 74 158/89 H 12/20/24 14:00 73 12/20/24 13:56 97.9 F 71 16 157/88 H 100 12/20/24 12:00 72 12/20/24 11:48 98.0 F 82 19 169/88 H 100 12/20/24 11:00 Room Air 12/20/24 10:43 Room Air 12/20/24 10:00 69 12/20/24 08:58 76 12/20/24 08:00 69 12/20/24 08:00 98.2 F 74 19 169/89 H 100 12/20/24 07:58 99 Room Air 12/20/24 06:00 75 12/20/24 04:00 70 12/20/24 04:00 98.0 F 64 18 168/86 H 100 12/20/24 03:25 Room Air 12/20/24 02:00 75 12/20/24 00:00 85 12/20/24 00:00 97.6 F 78 16 150/70 H 100 12/19/24 23:57 Room Air 12/19/24 22:00 80 12/19/24 21:25 72 18 188/101 H 99 12/19/24 20:00 77 12/19/24 20:00 98.2 F 74 18 166/98 H 100 Exam 2 Narrative: GENERAL APPEARANCE: elderly but well developed well nourished male in no acute distress HEENT: normocephalic, atraumatic, normal conjunctiva and sclera, nares patient NECK: no lymphadenopathy, thyromegaly, or JVD MOUTH: normal lips, teeth, and gums CARDIOVASCULAR: RRR, normal S1 and S2, no rub RESPIRATORY: clear to auscultation bilaterally ABDOMEN: soft, nontender, nondistended, positive bowel sounds present EXTREMITIES: no evidence of cyanosis, clubbing, or edema NEUROLOGICAL: alert and oriented x 3; no focal deficits noted Results Lab Results 12/20/24 04:01 12/20/24 04:01 Lab results: Most recent lab results Calcium 8.4 mg/dL (8.4-10.2) 12/20/24 04:01 Phosphorus 3.6 mg/dL (2.5-4.5) 12/20/24 04:01 Magnesium 2.5 mg/dL (1.6-2.3) H 12/20/24 04:01
[2024-12-20] MEDS: EPOETIN ALFA-EPBX 10,000 UNITS/ML VIAL 10000 UNITS IV PUSH (16:19)
[2024-12-20] MEDS: TAMSULOSIN HCL 0.4 MG CAPSULE 0.8 MG PO (21:56)
[2024-12-20] MEDS: THIAMINE 500 MG/NS 100 ML 500 MG/100 ML BAG 200 MG IVPB (21:57)
[2024-12-21] VITALS (13 sets, daily range): BP systolic 160–182; BP diastolic 76–96; PULSE 61–94; RESP 15–20; TEMP 36.4–37.1; O2SAT 98–100; BMI 20.5
[2024-12-21] MEDS: chlordiazePOXIDE (*CRX) 25 MG CAPSULE PO (05:04)
[2024-12-21] MEDS: THIAMINE 500 MG/NS 100 ML 500 MG/100 ML BAG 100 MG IVPB ×2 (05:13→14:08)
[2024-12-21] MEDS: ATORVASTATIN 40 MG TABLET PO (08:28)
[2024-12-21] MEDS: PANTOPRAZOLE 40 MG TABLET PO (08:28)
[2024-12-21] MEDS: FINASTERIDE 5 MG TABLET PO (08:28)
[2024-12-21] MEDS: FOLIC ACID 1 MG TABLET PO (08:28)
[2024-12-21] MEDS: ASPIRIN 81 MG ENTERIC TABLET PO (08:28)
[2024-12-21] MEDS: CLOPIDOGREL BISULFATE 75 MG TABLET PO (08:28)
[2024-12-21] MEDS: FAMOTIDINE 20 MG TABLET PO (08:29)
[2024-12-21] MEDS: METOPROLOL TARTRATE 25 MG TABLET PO ×2 (08:29→20:40)
--- NOTE | 2024-12-21 10:37 | PM.IMPN ---
Progress Note: A&P Assessment and Plan (1) Dysarthria: Code(s): R47.1 - Dysarthria and anarthria Status: Acute Assessment and Plan: The patient reported experiencing intermittent dysarthria and expressive aphasia before admission. Reports his symptoms completely resolved and then returned acutely at 9:00 p.m.. Discovery of symptoms at 9:10 p.m. Code stroke activated. Patient taken for emergent CT/CTA. Stroke scale completed prior to imaging, scored a total of 6 due to a mild left facial droop, dysarthria, expressive aphasia, and a left lower extremity drift. Patient has no prior knowledge of CVA, however told he has had a previous stroke due to his earlier head CT showing multiple old lacunar infarcts. During the patient's episode of dysarthria/expressive aphasia he had left-sided facial twitching and moderate amplitude muscle spasms to the bilateral upper extremities. Patient remained conscious and no disorientation noted. He was given an additional 5 mg IV of Valium and started on Keppra. Post imaging the patient's dysarthria and expressive aphasia have significantly improved. Head CT showed no acute abnormalities. 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 12/20 Brain MRI 1. Old lacunar infarcts at the bilateral thalami, basal ganglia and internal capsules. No acute intracranial process or abnormal enhancing brain lesions. 2. Extensive periventricular predominant nonspecific white matter T2 hyperintensity consistent with chronic small vessel ischemic disease. PLAN - neurology consulted - check lipid panel and A1c - echo with bubble study 12/19/24 TTE LVEF 55-60%, moderate anterior pericardial effusion - ST/PT/OT evaluation - patient additionally has new seizure-like activity (sequela of CVA versus alcohol withdrawal induced) started on Keppra - started atorvastatin, Plavix, aspirin daily - telemetry monitoring (2) Seizure-like activity: Code(s): R56.9 - Unspecified convulsions Status: Acute Assessment and Plan: Seizure-like activity described as shaking of unknown duration witnessed by patient's family on 12/19. No prior history of seizures. Does have history of alcohol abuse with last drink 1 week ago. New onset seizures versus alcohol withdrawal seizures? Patient additionally had witnessed left-sided facial twitching during his evaluation in the emergency department that resolved with IV Valium. Recurrent this evening at 21:10, see note above. - seizure precaution - neurology consulted, brain MRI as above - CIWA and protocol in place - started Keppra, loading dose of 1500 mg and 500 mg b.i.d. IVPB (3) Alcohol abuse: Code(s): F10.10 - Alcohol abuse, uncomplicated Status: Acute Assessment and Plan: Daily ETOH use: 1/2 pint to 1 pint for the past 10 years - last drink: 1 week ago prior to admission on 12/19 - CIWA protocol in place Diazepam PRN Librium prn seizure precautions neurochecks Q2H - banana bag x1, folic acid/thiamine daily - folic acid and thiamine levels pending --Thiamine 500mg q8 x3 doses - antiemetics PRN (4) ESRD on dialysis: Code(s): N18.6 - End stage renal disease; Z99.2 - Dependence on renal dialysis Status: Acute Assessment and Plan: History of end-stage renal disease on dialysis Mondays, Wednesdays, Fridays. Last treatment this past Wednesday on 12/18, received full treatment. - nephrology consulted for inpatient dialysis (5) Hypertension: Qualifiers: Hypertension type: secondary to other renal disorders Qualified Code(s): I15.1 - Hypertension secondary to other renal disorders Code(s): I10 - Essential (primary) hypertension Status: Acute Assessment and Plan: - chronic, currently 169/88 - continue home medications: Amlodipine, metoprolol - hydralazine p.r.n. for BP greater than 180/90 - monitor (6) Urinary retention: Code(s): R33.9 - Retention of urine, unspecified Status: Acute Assessment and Plan: Urinary retention previously. Discharged with a rubi catheter Started on tamsulosin 0.4mg, increase to 0.8mg since BP uncontrolled --Straight cath if >300ml, bladder scan qshift --If needs frequent straight caths will plan to replace rubi catheter (7) Pericardial effusion: Code(s): I31.39 - Other pericardial effusion (noninflammatory) Status: Acute Assessment and Plan: Noted on echo, LVEF 55-60% moderate pericardial effusion Check inflammatory markers, Follow up echo outpatient Plan Diet: Renal GI Prophylaxis: N/a DVT Prophylaxis: SCDs IV fluids: Banana bag x1 Lines/Tubes: pIV Code Status: Full code Time Spent With Patient Time: 55 minutes Subjective Date/time seen: 12/21/24 10:37 Interval history: Urine culture growing GNB's No tremors or seizure activity. Occasionally sinus tach but otherwise no events on tele. Moving out of IMU 69 y/o M with PMH of alcohol abuse, ESRD on HD (M/W/F), anemia in setting of CKD, GERD, and hypertension presents here with seizure-like activity. Review of Systems Review of Systems: All systems reviewed & are unremarkable except as noted in HPI and below Exam Narrative: General - Awake and alert. No acute distress Eyes - PERRLA, EOM intact ENT - No thrush, No erythema Neck - No noticeable or palpable swelling Lymph Nodes - No lymphadenopathy Cardiovascular - RRR no m/r/g, no JVD Lungs: Clear to auscultation, No wheezing, use of accessory muscles, no crackles Skin - Skin warm and dry, no wounds or rashes Abdomen - Normal bowel sounds, abdomen soft and nontender Extremities - No edema, cyanosis or clubbing Musculoskeletal - 5/5 strength, normal range of motion, no swollen or erythematous joints. Neurological ? Alert and oriented x 2-3 Hospital, November 20252024, Mild left sided weakness, mild dysarthria Psych: Normal mood and affect Objective Data Vital Signs Vital Signs: Vital Signs - 24 hr 12/20/24 10:43 12/20/24 11:00 12/20/24 11:48 Temperature 98.0 F Pulse Rate 82 Respiratory Rate 19 Blood Pressure 169/88 H Pulse Oximetry 100 Oxygen Delivery Room Air Room Air 12/20/24 12:00 12/20/24 13:56 12/20/24 14:00 Temperature 97.9 F Pulse Rate 72 71 73 Respiratory Rate 16 Blood Pressure 157/88 H Pulse Oximetry 100 Oxygen Delivery 12/20/24 14:07 12/20/24 14:15 12/20/24 14:30 Temperature Pulse Rate 74 72 78 Respiratory Rate Blood Pressure 158/89 H 154/86 H 159/93 H Pulse Oximetry Oxygen Delivery 12/20/24 14:45 12/20/24 15:00 12/20/24 15:15 Temperature Pulse Rate 73 73 72 Respiratory Rate Blood Pressure 159/92 H 165/93 H 164/93 H Pulse Oximetry Oxygen Delivery 12/20/24 15:30 12/20/24 15:45 12/20/24 16:00 Temperature Pulse Rate 73 79 72 Respiratory Rate Blood Pressure 165/101 H 143/77 H Pulse Oximetry Oxygen Delivery 12/20/24 16:00 12/20/24 16:15 12/20/24 16:30 Temperature Pulse Rate 73 76 83 Respiratory Rate Blood Pressure 171/97 H 154/93 H 157/106 H Pulse Oximetry Oxygen Delivery 12/20/24 16:45 12/20/24 17:00 12/20/24 17:15 Temperature Pulse Rate 80 83 79 Respiratory Rate Blood Pressure 154/111 H 147/99 H 159/97 H Pulse Oximetry Oxygen Delivery 12/20/24 17:30 12/20/24 17:37 12/20/24 17:43 Temperature 98.6 F Pulse Rate 75 79 79 Respiratory Rate 16 Blood Pressure 170/101 H 163/102 H 171/99 H Pulse Oximetry 100 Oxygen Delivery 12/20/24 18:00 12/20/24 19:59 12/20/24 20:00 Temperature 100.5 F H Pulse Rate 87 86 Respiratory Rate 15 Blood Pressure 166/88 H Pulse Oximetry 100 Oxygen Delivery Room Air 12/20/24 20:00 12/20/24 21:56 12/20/24 22:00 Temperature Pulse Rate 88 95 104 H Respiratory Rate Blood Pressure Pulse Oximetry Oxygen Delivery 12/20/24 23:13 12/21/24 00:00 12/21/24 00:00 Temperature 98.5 F Pulse Rate 92 93 Respiratory Rate 15 Blood Pressure 170/96 H Pulse Oximetry 100 Oxygen Delivery Room Air 12/21/24 02:00 12/21/24 03:00 12/21/24 04:00 Temperature 98.3 F Pulse Rate 87 81 Respiratory Rate 16 Blood Pressure 172/76 H Pulse Oximetry 100 Oxygen Delivery Room Air 12/21/24 04:00 12/21/24 06:00 12/21/24 08:00 Temperature 98.3 F Pulse Rate 61 79 90 Respiratory Rate 20 Blood Pressure 182/90 H Pulse Oximetry 100 Oxygen Delivery 12/21/24 08:00 12/21/24 08:29 Temperature Pulse Rate 94 90 Respiratory Rate Blood Pressure Pulse Oximetry Oxygen Delivery Intake/Output Intake/Output: Intake & Output 12/18/24 12/19/24 12/20/24 12/21/24 23:59 23:59 23:59 23:59 Intake Total 670 1450 690 Output Total 100 3400 Balance 570 -1950 690 Meds/Results Medications: Active Medications Generic Name Dose Route Start Last Admin Trade Name Freq PRN Reason Stop Dose Admin Acetaminophen 1,000 mg 12/20/24 10:45 12/20/24 10:55 Acetaminophen 500 Mg Tablet PO 1,000 mg Q6H PRN Administration Mild Pain (1-3) or Fever Amlodipine Besylate 10 mg 12/20/24 09:00 12/21/24 08:28 Amlodipine Besylate 10 Mg Tablet PO 10 mg DAILY ANDER Administration Aspirin 81 mg 12/20/24 09:00 12/21/24 08:28 Aspirin 81 Mg Enteric Tablet PO 81 mg QAM ANDER Administration Atorvastatin Calcium 40 mg 12/20/24 09:00 12/21/24 08:28 Atorvastatin 40 Mg Tablet PO 40 mg DAILY ANDER Administration Chlordiazepoxide HCl 25 mg 12/19/24 15:10 12/21/24 05:04 Chlordiazepoxide (*Crx) 25 Mg Capsule PO 25 mg Q6H PRN Administration Withdrawal Clopidogrel Bisulfate 75 mg 12/20/24 09:00 12/21/24 08:28 Clopidogrel Bisulfate 75 Mg Tablet PO 75 mg QAM ANDER Administration Diazepam 5 - 10 mg 12/19/24 13:03 12/19/24 13:11 Diazepam Inj (*Crx) 10 Mg/2 Ml Syringe IV PUSH 5 mg Q5M PRN Administration CIWA > 15 Famotidine 20 mg 12/20/24 09:00 12/21/24 08:29 Famotidine 20 Mg Tablet PO 20 mg DAILY ANDER Administration Finasteride 5 mg 12/20/24 09:00 12/21/24 08:28 Finasteride 5 Mg Tablet PO 5 mg DAILY ANDER Administration Folic Acid 1 mg 12/20/24 09:00 12/21/24 08:28 Folic Acid 1 Mg Tablet PO 1 mg DAILY ANDER Administration Hydralazine HCl 10 mg 12/19/24 15:13 12/19/24 22:35 Hydralazine Hcl 20 Mg/Ml Vial IV PUSH 10 mg Q8H PRN Administration Blood Pressure - High Albumin Human 50 mls @ 999 mls/hr 12/20/24 06:26 Albutein IVPB 01/19/25 06:25 Q10M PRN HYPOTENSION Thiamine HCl 500 mg in 100 mls @ 200 mls/hr 12/20/24 22:00 12/21/24 06:00 IVPB 12/21/24 14:29 Infused Q8H ANDER Infusion Levetiracetam 500 mg 12/20/24 21:00 12/21/24 08:28 Levetiracetam 500 Mg Tablet PO 500 mg Q12HR ANDER Administration Metoprolol Tartrate 25 mg 12/20/24 09:00 12/21/24 08:29 Metoprolol Tartrate 25 Mg Tablet PO 25 mg Q12HR ANDER Administration Ondansetron HCl 4 mg 12/19/24 13:03 12/19/24 13:11 Ondansetron Inj 4 Mg/2 Ml Vial IV PUSH 4 mg Q6H PRN Administration Nausea And Vomiting Pantoprazole Sodium 40 mg 12/20/24 09:00 12/21/24 08:28 Pantoprazole 40 Mg Tablet PO 40 mg DAILY ANDER Administration Perflutren Lipid Microsphere 0 ml 12/19/24 22:11 Perflutren Lipid Microspheres 1.5 Ml Vial Diluted To 10 Ml Total Volume IV PUSH 12/22/24 22:11 ONCE PRN adequate visualization Protocol Tamsulosin HCl 0.8 mg 12/20/24 21:00 12/20/24 21:56 Tamsulosin Hcl 0.4 Mg Capsule PO 0.8 mg HS ANDER Administration Radiology Results: ITS Impressions Head CT 12/19/24 21:36 IMPRESSION: No acute intracranial hemorrhage or extra axial fluid collections. Chronic white matter microangiopathic changes. There is a chronic lacunar infarct in the left basal ganglia. All CT scans at this facility are performed using low dose modulation techniques as appropriate to perform exam including the following: automated exposure control; use of iterative reconstruction technique; adjustment of the mA and/or kV according to patient size (this includes techniques or standardized protocols for targeted exams where dose is matched to indication/reason for exam). 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 Correlate clinically. There is marked atherosclerotic vascular calcification of the intracranial carotid artery causing moderate stenosis. No large vessel occlusion is seen. Modified Barium Swallow 12/20/24 13:33 IMPRESSION: Mild oropharyngeal dysphagia with transient trace/flash laryngeal penetration without aspiration. Please correlate with speech pathologist findings and specific feeding recommendations. Brain MRI 12/20/24 14:12 IMPRESSION: 1. Old lacunar infarcts at the bilateral thalami, basal ganglia and internal capsules. No acute intracranial process or abnormal enhancing brain lesions. 2. Extensive periventricular predominant nonspecific white matter T2 hyperintensity consistent with chronic small vessel ischemic disease. Labs Labs: Laboratory Results - last 24 hr 12/20/24 04:01 Hemoglobin A1c TNP Quality VTE Prophylaxis VTE prophylaxis: mechanical ordered Hospitalist [facility] Advance Care Plan I have confirmed that the patient's Advanced Care Plan is present, code status is documented, or surrogate decision maker is listed in patient medical record.: Yes Medication Reconciliation I have utilized all available resources to obtain, update and review the patients current medications (includes all prescriptions, OTC, herbals, cannabis, and nutritional supplements).: Yes
[2024-12-21] MEDS: cefTRIAXone 2 GM in SODIUM CHLORIDE 0.9% IV 100 ML 200 ML IVPB (11:58)
--- NOTE | 2024-12-21 12:16 | P.PNNP_ITS ---
Progress Note: A&P Assessment and Plan (1) End stage renal disease: Code(s): N18.6 - End stage renal disease Status: Chronic Assessment and Plan: * HD tomorrow * continue outpatient schedule of Wednesday/Wednesdays/Wednesday while hospitalized * follow electrolytes, volume status, and clearance * outpatient dialysis clinic = [facility] * primary candle wrapper = Dr. Deluca (2) Dysarthria: Code(s): R47.1 - Dysarthria and anarthria Status: Acute Assessment and Plan: * as reported before admission * recurred during ER visit * associated with: * mild left facial droop * expressive aphasia * left lower extremity drift * head CT negative * Head/neck CTA noted: * irregularity within the right vertebral artery at the level of C5-C6 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 * marked atherosclerotic vascular calcification of the intracranial carotid artery causing moderate stenosis * no LVO * Brain MRI (12/20): * old lacunar infarcts at the bilateral thalami, basal ganglia and internal capsules * no acute intracranial process or abnormal enhancing brain lesions * extensive periventricular predominant nonspecific white matter T2 hyperintensity consistent with chronic small vessel ischemic disease * clinical improvement in symptoms post-imaging * Neurology following * ST/PT/OT following * on ASA/plavix/statin (3) Seizure-like activity: Code(s): R56.9 - Unspecified convulsions Status: Acute Assessment and Plan: * suggested by shaking per patient's family * during episode of dysarthria/expressive aphasia in ER, noted left-sided facial twitching and moderate amplitude muscle spasms to the bilateral upper extremities * resolved with IV valium * new onset seizure versus alcohol withdrawal seizure?? * Neurology following * on Keppra (4) UTI (urinary tract infection): Code(s): N39.0 - Urinary tract infection, site not specified Status: Acute Assessment and Plan: * admission UA suggestive * urine culture with GNB * on antibiotics (5) Anemia: Code(s): D64.9 - Anemia, unspecified Status: Chronic Assessment and Plan: * due to ESRD * Epogen with HD * follow trend of H/H (6) Hypertension: Qualifiers: Hypertension type: secondary to other renal disorders Qualified Code(s): I15.1 - Hypertension secondary to other renal disorders Code(s): I10 - Essential (primary) hypertension Status: Chronic Assessment and Plan: * resumed on home medications * hydralazine PRN * follow trend of hemodynamics - (7) Urinary retention: Code(s): R33.9 - Retention of urine, unspecified Status: Chronic Assessment and Plan: * known history * previously had a rubi catheter * follow bladder scans * on flomax (8) Alcohol abuse: Code(s): F10.10 - Alcohol abuse, uncomplicated Status: Acute Assessment and Plan: * known history * CIWA protocol in place * on thiamine and folate Will continue to follow. L Subjective Date/time seen: 12/21/24 12:16 Interval history: Follow-up for end stage renal disease on hemodialysis. Tolerated dialysis treatment yesterday without any issues or problems; no further seizure activity or tremors noted since admission; no other events overnight or earlier this morning; no apparent distress at the time of my visit. Exam 2 Narrative: General: elderly male in NAD Heart: normal S1 and S2; no rub Lungs: clear to auscultation Abdomen: soft, nontender, nondistended, positive bowel sounds Extremities: no cyanosis or clubbing; no edema Skin: warm and dry Objective Data Vital Signs Vital Signs: Vital Signs Temp Pulse Resp BP Pulse Ox O2 Del Method 12/21/24 12:00 77 12/21/24 11:28 97.6 F 74 18 176/89 H 100 12/21/24 10:00 85 12/21/24 08:29 90 12/21/24 08:00 94 12/21/24 08:00 98.3 F 90 20 182/90 H 100 12/21/24 06:00 79 12/21/24 04:00 61 12/21/24 04:00 98.3 F 81 16 172/76 H 100 12/21/24 03:00 Room Air 12/21/24 02:00 87 12/21/24 00:00 93 12/21/24 00:00 98.5 F 92 15 170/96 H 100 12/20/24 23:13 Room Air 12/20/24 22:00 104 H 12/20/24 21:56 95 12/20/24 20:00 88 12/20/24 20:00 100.5 F H 86 15 166/88 H 100 12/20/24 19:59 Room Air Intake/Output Intake/Output: Intake & Output 12/18/24 12/19/24 12/20/24 12/21/24 23:59 23:59 23:59 23:59 Intake Total 670 1450 810 Output Total 100 3400 290 Balance 570 -1950 520 Meds/Results Medications: Active Medications Generic Name Dose Route Start Last Admin Trade Name Freq PRN Reason Stop Dose Admin Acetaminophen 1,000 mg 12/20/24 10:45 12/20/24 10:55 Acetaminophen 500 Mg Tablet PO 1,000 mg Q6H PRN Administration Mild Pain (1-3) or Fever Amlodipine Besylate 10 mg 12/20/24 09:00 12/21/24 08:28 Amlodipine Besylate 10 Mg Tablet PO 10 mg DAILY ANDER Administration Aspirin 81 mg 12/20/24 09:00 12/21/24 08:28 Aspirin 81 Mg Enteric Tablet PO 81 mg QAM ANDER Administration Atorvastatin Calcium 40 mg 12/20/24 09:00 12/21/24 08:28 Atorvastatin 40 Mg Tablet PO 40 mg DAILY ANDER Administration Chlordiazepoxide HCl 25 mg 12/19/24 15:10 12/21/24 05:04 Chlordiazepoxide (*Crx) 25 Mg Capsule PO 25 mg Q6H PRN Administration Withdrawal Clopidogrel Bisulfate 75 mg 12/20/24 09:00 12/21/24 08:28 Clopidogrel Bisulfate 75 Mg Tablet PO 75 mg QAM ANDER Administration Diazepam 5 - 10 mg 12/19/24 13:03 12/19/24 13:11 Diazepam Inj (*Crx) 10 Mg/2 Ml Syringe IV PUSH 5 mg Q5M PRN Administration CIWA > 15 Famotidine 20 mg 12/20/24 09:00 12/21/24 08:29 Famotidine 20 Mg Tablet PO 20 mg DAILY ANDER Administration Finasteride 5 mg 12/20/24 09:00 12/21/24 08:28 Finasteride 5 Mg Tablet PO 5 mg DAILY ANDER Administration Folic Acid 1 mg 12/20/24 09:00 12/21/24 08:28 Folic Acid 1 Mg Tablet PO 1 mg DAILY ANDER Administration Hydralazine HCl 10 mg 12/19/24 15:13 12/19/24 22:35 Hydralazine Hcl 20 Mg/Ml Vial IV PUSH 10 mg Q8H PRN Administration Blood Pressure - High Albumin Human 50 mls @ 999 mls/hr 12/20/24 06:26 Albutein IVPB 01/19/25 06:25 Q10M PRN HYPOTENSION Ceftriaxone Sodium 2 gm/ 100 mls @ 200 mls/hr 12/21/24 11:00 12/21/24 11:58 Sodium Chloride IVPB 200 mls/hr Q24H ANDER Administration Levetiracetam 500 mg 12/20/24 21:00 12/21/24 08:28 Levetiracetam 500 Mg Tablet PO 500 mg Q12HR ANDER Administration Metoprolol Tartrate 25 mg 12/20/24 09:00 12/21/24 08:29 Metoprolol Tartrate 25 Mg Tablet PO 25 mg Q12HR ANDER Administration Ondansetron HCl 4 mg 12/19/24 13:03 12/19/24 13:11 Ondansetron Inj 4 Mg/2 Ml Vial IV PUSH 4 mg Q6H PRN Administration Nausea And Vomiting Pantoprazole Sodium 40 mg 12/20/24 09:00 12/21/24 08:28 Pantoprazole 40 Mg Tablet PO 40 mg DAILY ANDER Administration Perflutren Lipid Microsphere 0 ml 12/19/24 22:11 Perflutren Lipid Microspheres 1.5 Ml Vial Diluted To 10 Ml Total Volume IV PUSH 12/22/24 22:11 ONCE PRN adequate visualization Protocol Tamsulosin HCl 0.8 mg 12/20/24 21:00 12/20/24 21:56 Tamsulosin Hcl 0.4 Mg Capsule PO 0.8 mg HS ANDER Administration Radiology Results: ITS Impressions Head CT 12/19/24 21:36 IMPRESSION: No acute intracranial hemorrhage or extra axial fluid collections. Chronic white matter microangiopathic changes. There is a chronic lacunar infarct in the left basal ganglia. All CT scans at this facility are performed using low dose modulation techniques as appropriate to perform exam including the following: automated exposure control; use of iterative reconstruction technique; adjustment of the mA and/or kV according to patient size (this includes techniques or standardized protocols for targeted exams where dose is matched to indication/reason for exam). 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 Correlate clinically. There is marked atherosclerotic vascular calcification of the intracranial carotid artery causing moderate stenosis. No large vessel occlusion is seen. Modified Barium Swallow 12/20/24 13:33 IMPRESSION: Mild oropharyngeal dysphagia with transient trace/flash laryngeal penetration without aspiration. Please correlate with speech pathologist findings and specific feeding recommendations. Brain MRI 12/20/24 14:12 IMPRESSION: 1. Old lacunar infarcts at the bilateral thalami, basal ganglia and internal capsules. No acute intracranial process or abnormal enhancing brain lesions. 2. Extensive periventricular predominant nonspecific white matter T2 hyperintensity consistent with chronic small vessel ischemic disease. Labs Labs: Laboratory Tests 12/20/24 04:01 12/20/24 04:01 Microbiology 12/19/24 12:56 Urine Catheterized - Preliminary Gram negative bacilli isolated
[2024-12-21] MEDS: TAMSULOSIN HCL 0.4 MG CAPSULE 0.8 MG PO (20:40)
--- NOTE | 2024-12-21 22:10 | PC.NURSE ---
This patient, Niesha Ceja, was transferred to [facility] on 12/21/24 at 2145. Personal belongings sent with patient. Report given to Liyah BURK. Appropriate documentation sent with patient.
--- NOTE | 2024-12-21 22:11 | ECHO_ITS ---
Patient Info Name: Niesha Ceja Age: 69 years : 1955 Gender: Male Ht: 72 in Wt: 158 lbs BSA: 1.90 m2 HR: 79 bpm BP: 172 / 76 mmHg Technical Quality: Fair Exam Date: 12/21/2024 10:25 AM Patient Status: I Admit Date: 12/20/2024 Exam Type: CA echo doppler w bubble study Complete two-dimensional, color flow and Doppler transthoracic echocardiogram is performed with agitated saline. Staff Referring Physician: Jaja Miller Clarity Specialists: Hiram Haro III Attending Provider: Vel Carcamo Contrast/Agitated Saline Contrast/Ag. Saline: Agitated Saline Amount: 18.00 ml Administered By: Hiram Haro III Existing IV Access: Yes IV Access Condition: patent with no signs of infiltration Summary 1. BUBBLE STUDY APPEARS POSITIVE. PATIENT WOULD NOT HOLD STILL FOR BUBBLE STUDY. NURSE PUSHED 3 TIMES. 2. Agitated saline study revealed delayed [id number] shunt suggesting extracardiac shunt. Color Doppler did not review intracardiac shunting. 3. The left ventricle is normal in size and systolic function. There is concentric left ventricular remodeling. The left ventricular ejection fraction is visually estimated to be 60-65%. There are no regional wall motion abnormalities. 4. The right ventricle is normal in size and systolic function. 5. The left atrium is mildly dilated. Left Ventricle The left ventricle is normal in size and systolic function. There is concentric left ventricular remodeling. The left ventricular ejection fraction is visually estimated to be 60-65%. There are no regional wall motion abnormalities. Right Ventricle The right ventricle is normal in size and systolic function. Left Atria The left atrium is mildly dilated. Right Atria The right atrium is normal size. Atrial Septum Agitated saline study revealed delayed [id number]-mj-[id number] shunt suggesting extracardiac shunt. Color Doppler did not review intracardiac shunting. Aortic Valve The aortic valve is trileaflet and opens well. There is no aortic regurgitation. Pulmonic Valve The pulmonic valve is not well visualized. Mitral Valve The mitral valve is normal. There is trace mitral regurgitation. Tricuspid Valve The tricuspid valve is normal. There is trace tricuspid regurgitation. Pericardium/Pleural Pericardium is normal in appearance with no evidence for significant pericardial effusion. Inferior Vena Cava Normal inferior vena cava with >50% collapse upon inspiration consistent with normal right atrial pressure, 3 mmHg. Aorta The aortic root at the level of the sinus of Valsalva measures 3.1 cm in diameter. Left Ventricular Outflow Tract Name Value Normal LVOT 2D LVOT Diameter 2.4 cm LVOT Doppler LVOT Peak Velocity 100 cm/s LVOT Peak Gradient 4 mmHg LVOT Mean Gradient 2 mmHg LVOT VTI 20 cm LVOT VTI/AV VTI Ratio 0.8 LVOT Stroke Volume 89 ml LVOT CO 6.5 l/min LVOT CI 3.4 l/min/m2 Pulmonic Valve Name Value Normal PV Doppler PV Peak Velocity 95 cm/s PV Peak Gradient 4 mmHg PV Mean Gradient 2 mmHg Mitral Valve Name Value Normal MV Doppler MV Peak Gradient 7 mmHg MV Mean Gradient 3 mmHg MV Area (Cont Eq VTI) 3.3 cm2 MV Diastolic Function MV E Peak Velocity 91 cm/s MV A Peak Velocity 134 cm/s MV E/A 0.7 MV Decel Time (PW) 177 ms MV Annular TDI MV E/e' (Septal) 13.6 MV E/e' (Lateral) 9.0 MV E/e' (Average) 11.3 Tricuspid Valve Name Value Normal TV Regurgitation Doppler TR Peak Velocity 232 cm/s TR Peak Gradient 22 mmHg Estimated PAP/RSVP RA Pressure 3 mmHg <=5 PA Systolic Pressure 25 mmHg <36 RV Systolic Pressure 25 mmHg <36 TV Annular TDI TV Lateral Kalee s' Velocity 10.2 cm/s >=9.5 Aortic Valve Name Value Normal AV Doppler AV Peak Velocity 122 cm/s AV Peak Gradient 6 mmHg AV Mean Gradient 3 mmHg AV VTI 24 cm AV Area (Cont Eq VTI) 3.7 cm2 >=3.0 AV Area (Cont Eq Issa) 3.6 cm2 AV DI (Issa) 0.82 AV Regurgitation 2D LVOT Area 4.4 cm2 Ventricles Name Value Normal LV Dimensions 2D/MM IVS Diastolic Thickness (2D) 1.3 cm 0.6-1.0 LVID Diastole (2D) 4.2 cm 4.2-5.8 LVIW Diastolic Thickness (2D) 1.2 cm 0.6-1.0 LVID Systole (2D) 2.7 cm 2.5-4.0 LVOT Diameter 2.4 cm LV Mass (2D Cubed) 198.09 g 88.00-224.00 LV Mass Index (2D Cubed) 104 g/m2 49-115 Relative Wall Thickness (2D) 0.58 <=0.42 LV Fractional Shortening/Ejection Fraction 2D/MM LV Fractional Shortening (2D) 36 % 25-43 LV EF (2D Teichnicholez) 66 % LV Diastolic Volume (4C MOD) 89 ml LV EF (4C MOD) 62 % LV Diastolic Volume (2C MOD) 83 ml LV EF (2C MOD) 64 % LV Diastolic Volume (BP MOD) 86 ml 62-150 LV Diastolic Volume Index (BP MOD) 45 ml/m2 34-74 LV Systolic Volume (BP MOD) 33 ml 21-61 LV Systolic Volume Index (BP MOD) 17 ml/m2 11-31 LV EF (BP MOD) 62 % 52-72 LV Diastolic Length (4C) 7.9 cm LV Systolic Length (4C) 6.4 cm LV Stroke Volume (4C MOD) 55 ml Atria Name Value Normal LA Dimensions LA Volume (4C A-L) 54 ml LA Volume (BP A-L) 68 ml RA Dimensions RA Systolic Major [place] Length (4C) 5.5 cm 2.1-2.7 RA Area (4C) 15.0 cm2 <=18.0 Report Signatures
--- NOTE | 2024-12-21 22:12 | PC.NURSE ---
This RN called the emergency contact of the patient to notify of the patient being transferred.
[2024-12-22] VITALS (25 sets, daily range): BP systolic 136–181; BP diastolic 80–102; PULSE 73–100; RESP 14–20; TEMP 36.6–37.5; O2SAT 100
[2024-12-22] MEDS: METOPROLOL TARTRATE 25 MG TABLET PO ×2 (08:19→20:18)
[2024-12-22] MEDS: FOLIC ACID 1 MG TABLET PO (08:19)
[2024-12-22] MEDS: FINASTERIDE 5 MG TABLET PO (08:20)
[2024-12-22] MEDS: ASPIRIN 81 MG ENTERIC TABLET PO (08:20)
[2024-12-22] MEDS: FAMOTIDINE 20 MG TABLET PO (08:20)
[2024-12-22] MEDS: CLOPIDOGREL BISULFATE 75 MG TABLET PO (08:20)
[2024-12-22] MEDS: ATORVASTATIN 40 MG TABLET PO (08:20)
[2024-12-22] MEDS: PANTOPRAZOLE 40 MG TABLET PO (08:21)
--- NOTE | 2024-12-22 08:22 | PCPTNOTE ---
The patient treatment was not able to be completed at this time due to patient going to dialysis. Will plan to continue treatment per plan of care.
--- NOTE | 2024-12-22 08:49 | PCOTNOTE ---
Patient unavailable, in dialysis. Will continue to follow
--- NOTE | 2024-12-22 10:20 | P.PNNP_ITS ---
Progress Note: A&P Assessment and Plan (1) End stage renal disease: Code(s): N18.6 - End stage renal disease Status: Chronic Assessment and Plan: * HD today * continue outpatient schedule of Wednesday/Wednesdays/Wednesday while hospitalized * follow electrolytes, volume status, and clearance * outpatient dialysis clinic = [facility] * primary unit support representative = Dr. Deluca (2) Dysarthria: Code(s): R47.1 - Dysarthria and anarthria Status: Acute Assessment and Plan: * as reported before admission * recurred during while in ER * associated with: * mild left facial droop * expressive aphasia * left lower extremity drift * head CT negative * Head/neck CTA noted: * irregularity within the right vertebral artery at the level of C5-C6 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 * marked atherosclerotic vascular calcification of the intracranial carotid artery causing moderate stenosis * no LVO * Brain MRI (12/20): * old lacunar infarcts at the bilateral thalami, basal ganglia and internal capsules * no acute intracranial process or abnormal enhancing brain lesions * extensive periventricular predominant nonspecific white matter T2 hyperintensity consistent with chronic small vessel ischemic disease * clinical improvement in symptoms post-imaging * Neurology following * ST/PT/OT following * on ASA/plavix/statin (3) Seizure-like activity: Code(s): R56.9 - Unspecified convulsions Status: Acute Assessment and Plan: * suggested by shaking per patient's family * during episode of dysarthria/expressive aphasia in ER, noted left-sided facial twitching and moderate amplitude muscle spasms to the bilateral upper extremities * resolved with IV valium * new onset seizure versus alcohol withdrawal seizure?? 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 L Subjective Date/time seen: 12/22/24 10:20 Interval history: Follow-up for end stage renal disease on hemodialysis. Tolerating dialysis treatment at the time of my visit (seen on HD at 10:10am); no apparent distress noted when seen; no acute issues/events overnight or earlier this morning; feels reasonably well. Exam 2 Narrative: General: elderly male in NAD Heart: normal S1 and S2; no rub Lungs: clear to auscultation Abdomen: soft, nontender, nondistended, positive bowel sounds Extremities: no cyanosis or clubbing; no edema Skin: warm and intact Objective Data Vital Signs Vital Signs: Vital Signs Temp Pulse Resp BP Pulse Ox O2 Del Method 12/22/24 10:15 100 151/95 H 12/22/24 10:00 97 139/92 H 12/22/24 09:45 94 153/93 H 12/22/24 09:30 90 158/95 H 12/22/24 09:15 98 160/102 H 12/22/24 09:00 80 159/92 H 12/22/24 08:48 77 159/85 H 12/22/24 08:40 Room Air 12/22/24 08:37 98.1 F 77 20 166/95 H 100 12/22/24 08:19 73 12/22/24 05:18 98.4 F 76 14 158/80 H 100 12/21/24 20:40 80 12/21/24 20:38 98.7 F 80 18 160/93 H 100 12/21/24 20:00 Room Air 12/21/24 16:00 97.7 F 77 20 172/79 H 98 Intake/Output Intake/Output: Intake & Output 1012/20/24 12/21/24 12/22/24 23:59 23:59 23:59 23:59 Intake Total 670 1450 1260 850 Output Total 100 3400 290 1900 Balance 570 -1950 970 -1050 Meds/Results Medications: Active Medications Generic Name Dose Route Start Last Admin Trade Name Freq PRN Reason Stop Dose Admin Acetaminophen 1,000 mg 12/20/24 10:45 12/20/24 10:55 Acetaminophen 500 Mg Tablet PO 1,000 mg Q6H PRN Administration Mild Pain (1-3) or Fever Amlodipine Besylate 10 mg 12/20/24 09:00 12/22/24 13:49 Amlodipine Besylate 10 Mg Tablet PO 10 mg DAILY ANDER Administration Aspirin 81 mg 12/20/24 09:00 12/22/24 08:20 Aspirin 81 Mg Enteric Tablet PO 81 mg QAM ANDER Administration Atorvastatin Calcium 40 mg 12/20/24 09:00 12/22/24 08:20 Atorvastatin 40 Mg Tablet PO 40 mg DAILY ANDER Administration Chlordiazepoxide HCl 25 mg 12/19/24 15:10 12/21/24 05:04 Chlordiazepoxide (*Crx) 25 Mg Capsule PO 25 mg Q6H PRN Administration Withdrawal Clopidogrel Bisulfate 75 mg 12/20/24 09:00 12/22/24 08:20 Clopidogrel Bisulfate 75 Mg Tablet PO 75 mg QAM ANDER Administration Diazepam 5 - 10 mg 12/19/24 13:03 12/19/24 13:11 Diazepam Inj (*Crx) 10 Mg/2 Ml Syringe IV PUSH 5 mg Q5M PRN Administration CIWA > 15 Famotidine 20 mg 12/20/24 09:00 12/22/24 08:20 Famotidine 20 Mg Tablet PO 20 mg DAILY ANDER Administration Finasteride 5 mg 12/20/24 09:00 12/22/24 08:20 Finasteride 5 Mg Tablet PO 5 mg DAILY ANDER Administration Folic Acid 1 mg 12/20/24 09:00 12/22/24 08:19 Folic Acid 1 Mg Tablet PO 1 mg DAILY ANDER Administration Hydralazine HCl 10 mg 12/19/24 15:13 12/19/24 22:35 Hydralazine Hcl 20 Mg/Ml Vial IV PUSH 10 mg Q8H PRN Administration Blood Pressure - High Albumin Human 50 mls @ 999 mls/hr 12/20/24 06:26 Albutein IVPB 01/19/25 06:25 Q10M PRN HYPOTENSION Ceftriaxone Sodium 2 gm/ 100 mls @ 200 mls/hr 12/21/24 11:00 12/22/24 13:14 Sodium Chloride IVPB 200 mls/hr Q24H ANDER Administration Albumin Human 50 mls @ 999 mls/hr 12/22/24 07:24 Albutein IVPB 12/23/24 07:23 Q10M PRN HYPOTENSION Levetiracetam 500 mg 12/20/24 21:00 12/22/24 08:20 Levetiracetam 500 Mg Tablet PO 500 mg Q12HR ANDER Administration Metoprolol Tartrate 25 mg 12/20/24 09:00 12/22/24 08:19 Metoprolol Tartrate 25 Mg Tablet PO 25 mg Q12HR ANDER Administration Ondansetron HCl 4 mg 12/19/24 13:03 12/19/24 13:11 Ondansetron Inj 4 Mg/2 Ml Vial IV PUSH 4 mg Q6H PRN Administration Nausea And Vomiting Pantoprazole Sodium 40 mg 12/20/24 09:00 12/22/24 08:21 Pantoprazole 40 Mg Tablet PO 40 mg DAILY ANDER Administration Perflutren Lipid Microsphere 0 ml 12/19/24 22:11 Perflutren Lipid Microspheres 1.5 Ml Vial Diluted To 10 Ml Total Volume IV PUSH 12/22/24 22:11 ONCE PRN adequate visualization Protocol Tamsulosin HCl 0.8 mg 12/20/24 21:00 12/21/24 20:40 Tamsulosin Hcl 0.4 Mg Capsule PO 0.8 mg HS ANDER Administration Radiology Results: ITS Impressions Head CT 12/19/24 21:36 IMPRESSION: No acute intracranial hemorrhage or extra axial fluid collections. Chronic white matter microangiopathic changes. There is a chronic lacunar infarct in the left basal ganglia. All CT scans at this facility are performed using low dose modulation techniques as appropriate to perform exam including the following: automated exposure control; use of iterative reconstruction technique; adjustment of the mA and/or kV according to patient size (this includes techniques or standardized protocols for targeted exams where dose is matched to indication/reason for exam). 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 Correlate clinically. There is marked atherosclerotic vascular calcification of the intracranial carotid artery causing moderate stenosis. No large vessel occlusion is seen. Modified Barium Swallow 12/20/24 13:33 IMPRESSION: Mild oropharyngeal dysphagia with transient trace/flash laryngeal penetration without aspiration. Please correlate with speech pathologist findings and specific feeding recommendations. Brain MRI 12/20/24 14:12 IMPRESSION: 1. Old lacunar infarcts at the bilateral thalami, basal ganglia and internal capsules. No acute intracranial process or abnormal enhancing brain lesions. 2. Extensive periventricular predominant nonspecific white matter T2 hyperintensity consistent with chronic small vessel ischemic disease. Labs Labs: Laboratory Tests 12/20/24 04:01 12/20/24 04:01 Calcium 8.4 Phosphorus 3.6 Magnesium 2.5 H Vitamin B12 577.0 Folate > 20.0 H Microbiology 12/19/24 12:56 Urine Catheterized - Preliminary Providencia stuartii
[2024-12-22] MEDS: EPOETIN ALFA-EPBX 10,000 UNITS/ML VIAL 10000 UNITS IV PUSH (11:49)
[2024-12-22] MEDS: cefTRIAXone 2 GM in SODIUM CHLORIDE 0.9% IV 100 ML 200 ML IVPB (13:14)
--- NOTE | 2024-12-22 13:50 | PC.NURSE ---
RN administered Amlodipine late after dialysis due to hypertension.
--- NOTE | 2024-12-22 17:24 | P.PNIM_ITS ---
Progress Note: A&P Assessment and Plan (1) Dysarthria: Code(s): R47.1 - Dysarthria and anarthria Status: Acute Assessment and Plan: The patient reported experiencing intermittent dysarthria and expressive aphasia before admission. Reports his symptoms completely resolved and then returned acutely at 9:00 p.m.. Discovery of symptoms at 9:10 p.m. Code stroke activated. Patient taken for emergent CT/CTA. Stroke scale completed prior to imaging, scored a total of 6 due to a mild left facial droop, dysarthria, expressive aphasia, and a left lower extremity drift. Patient has no prior knowledge of CVA, however told he has had a previous stroke due to his earlier head CT showing multiple old lacunar infarcts. During the patient's episode of dysarthria/expressive aphasia he had left-sided facial twitching and moderate amplitude muscle spasms to the bilateral upper extremities. Patient remained conscious and no disorientation noted. He was given an additional 5 mg IV of Valium and started on Keppra. Post imaging the patient's dysarthria and expressive aphasia have significantly improved. Head CT showed no acute abnormalities. 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 12/20 Brain MRI 1. Old lacunar infarcts at the bilateral thalami, basal ganglia and internal capsules. No acute intracranial process or abnormal enhancing brain lesions. 2. Extensive periventricular predominant nonspecific white matter T2 hyperintensity consistent with chronic small vessel ischemic disease. PLAN - neurology consulted - check lipid panel and A1c - echo with bubble study 12/19/24 TTE LVEF 55-60%, moderate anterior pericardial effusion - ST/PT/OT evaluation - patient additionally has new seizure-like activity (sequela of CVA versus alcohol withdrawal induced) started on Keppra - started atorvastatin, Plavix, aspirin daily - telemetry monitoring (2) Seizure-like activity: Code(s): R56.9 - Unspecified convulsions Status: Acute Assessment and Plan: Seizure-like activity described as shaking of unknown duration witnessed by patient's family on 12/19. No prior history of seizures. Does have history of alcohol abuse with last drink 1 week ago. New onset seizures versus alcohol withdrawal seizures? Patient additionally had witnessed left-sided facial twitching during his evaluation in the emergency department that resolved with IV Valium. Recurrent this evening at 21:10, see note above. - seizure precaution - neurology consulted, brain MRI as above - CIWA and protocol in place - started Keppra, loading dose of 1500 mg and 500 mg b.i.d. IVPB (3) Alcohol abuse: Code(s): F10.10 - Alcohol abuse, uncomplicated Status: Acute Assessment and Plan: Daily ETOH use: 1/2 pint to 1 pint for the past 10 years - last drink: 1 week ago prior to admission on 12/19 - CIWA protocol in place Diazepam PRN Librium prn seizure precautions neurochecks Q2H - banana bag x1, folic acid/thiamine daily - folic acid and thiamine levels pending --Thiamine 500mg q8 x3 doses - antiemetics PRN (4) ESRD on dialysis: Code(s): N18.6 - End stage renal disease; Z99.2 - Dependence on renal dialysis Status: Acute Assessment and Plan: History of end-stage renal disease on dialysis Mondays, Wednesdays, Fridays. Last treatment this past Wednesday on 12/18, received full treatment. - nephrology consulted for inpatient dialysis (5) Hypertension: Qualifiers: Hypertension type: secondary to other renal disorders Qualified Code(s): I15.1 - Hypertension secondary to other renal disorders Code(s): I10 - Essential (primary) hypertension Status: Chronic Assessment and Plan: - chronic, currently 169/88 - continue home medications: Amlodipine, metoprolol, tamsulosin 0.4<0.8 - hydralazine p.r.n. for BP greater than 180/90 - monitor (6) Urinary retention: Code(s): R33.9 - Retention of urine, unspecified Status: Chronic Assessment and Plan: Urinary retention previously. Discharged with a rubi catheter Started on tamsulosin 0.4mg, increased to 0.8mg since BP uncontrolled --Straight cath if >300ml, bladder scan qshift, hasn't needed to replace rubi --If needs frequent straight caths will plan to replace rubi catheter (7) Pericardial effusion: Code(s): I31.39 - Other pericardial effusion (noninflammatory) Status: Acute Assessment and Plan: Noted on echo, LVEF 55-60% moderate pericardial effusion Check inflammatory markers, Follow up echo outpatient Plan Diet: Renal GI Prophylaxis: N/a DVT Prophylaxis: SCDs IV fluids: Banana bag x1 Lines/Tubes: pIV Code Status: Full code Time Spent With Patient Time: 57 minutes Subjective Date/time seen: 12/22/24 17:24 Interval history: Feeling ok today. Had dialysis today No overnight events. Reports muscle twiching to mouth once but otherwise no evidence of seizures DC'd chronic rubi. Have been bladder scanning and has not needed to straight cath Review of Systems Review of Systems: All systems reviewed & are unremarkable except as noted in HPI and below Exam Narrative: General - Awake and alert. No acute distress Eyes - PERRLA, EOM intact ENT - No thrush, No erythema Neck - No noticeable or palpable swelling Lymph Nodes - No lymphadenopathy Cardiovascular - RRR no m/r/g, no JVD Lungs: Clear to auscultation, No wheezing, use of accessory muscles, no crackles Skin - Skin warm and dry, no wounds or rashes Abdomen - Normal bowel sounds, abdomen soft and nontender Extremities - No edema, cyanosis or clubbing Musculoskeletal - 5/5 strength, normal range of motion, no swollen or erythematous joints. Neurological ? Alert and oriented x 2-3 [facility], November 20252024, Mild left sided weakness, mild dysarthria Psych: Normal mood and affect Objective Data Vital Signs Vital Signs: Vital Signs - 24 hr 12/21/24 20:00 12/21/24 20:38 12/21/24 20:40 Temperature 98.7 F Pulse Rate 80 80 Respiratory Rate 18 Blood Pressure 160/93 H Pulse Oximetry 100 Oxygen Delivery Room Air 12/22/24 05:18 12/22/24 08:19 12/22/24 08:37 Temperature 98.4 F 98.1 F Pulse Rate 76 73 77 Respiratory Rate 14 20 Blood Pressure 158/80 H 166/95 H Pulse Oximetry 100 100 Oxygen Delivery 12/22/24 08:40 12/22/24 08:48 12/22/24 09:00 Temperature Pulse Rate 77 80 Respiratory Rate Blood Pressure 159/85 H 159/92 H Pulse Oximetry Oxygen Delivery Room Air 12/22/24 09:15 12/22/24 09:30 12/22/24 09:45 Temperature Pulse Rate 98 90 94 Respiratory Rate Blood Pressure 160/102 H 158/95 H 153/93 H Pulse Oximetry Oxygen Delivery 12/22/24 10:00 12/22/24 10:15 12/22/24 10:30 Temperature Pulse Rate 97 100 90 Respiratory Rate Blood Pressure 139/92 H 151/95 H 150/92 H Pulse Oximetry Oxygen Delivery 12/22/24 10:45 12/22/24 11:00 12/22/24 11:15 Temperature Pulse Rate 86 81 88 Respiratory Rate Blood Pressure 159/92 H 152/90 H 136/93 H Pulse Oximetry Oxygen Delivery 12/22/24 11:30 12/22/24 11:45 12/22/24 12:00 Temperature Pulse Rate 84 81 81 Respiratory Rate Blood Pressure 146/88 H 152/96 H 156/92 H Pulse Oximetry Oxygen Delivery 12/22/24 12:15 12/22/24 12:21 12/22/24 12:30 Temperature 98.2 F Pulse Rate 82 74 79 Respiratory Rate 18 Blood Pressure 153/94 H 155/93 H 156/85 H Pulse Oximetry 100 Oxygen Delivery 12/22/24 13:41 12/22/24 14:54 Temperature 98.6 F Pulse Rate 78 Respiratory Rate 18 Blood Pressure 181/82 H 163/82 H Pulse Oximetry 100 Oxygen Delivery Intake/Output Intake/Output: Intake & Output 12/19/24 12/20/24 12/21/24 12/22/24 23:59 23:59 23:59 23:59 Intake Total 670 1450 1260 970 Output Total 100 3400 290 1900 Balance 570 -1950 970 -930 Meds/Results Medications: Active Medications Generic Name Dose Route Start Last Admin Trade Name Freq PRN Reason Stop Dose Admin Acetaminophen 1,000 mg 12/20/24 10:45 12/20/24 10:55 Acetaminophen 500 Mg Tablet PO 1,000 mg Q6H PRN Administration Mild Pain (1-3) or Fever Amlodipine Besylate 10 mg 12/20/24 09:00 12/22/24 13:49 Amlodipine Besylate 10 Mg Tablet PO 10 mg DAILY ANDER Administration Aspirin 81 mg 12/20/24 09:00 12/22/24 08:20 Aspirin 81 Mg Enteric Tablet PO 81 mg QAM ANDER Administration Atorvastatin Calcium 40 mg 12/20/24 09:00 12/22/24 08:20 Atorvastatin 40 Mg Tablet PO 40 mg DAILY ANDER Administration Chlordiazepoxide HCl 25 mg 12/19/24 15:10 12/21/24 05:04 Chlordiazepoxide (*Crx) 25 Mg Capsule PO 25 mg Q6H PRN Administration Withdrawal Clopidogrel Bisulfate 75 mg 12/20/24 09:00 12/22/24 08:20 Clopidogrel Bisulfate 75 Mg Tablet PO 75 mg QAM ANDER Administration Diazepam 5 - 10 mg 12/19/24 13:03 12/19/24 13:11 Diazepam Inj (*Crx) 10 Mg/2 Ml Syringe IV PUSH 5 mg Q5M PRN Administration CIWA > 15 Famotidine 20 mg 12/20/24 09:00 12/22/24 08:20 Famotidine 20 Mg Tablet PO 20 mg DAILY ANDER Administration Finasteride 5 mg 12/20/24 09:00 12/22/24 08:20 Finasteride 5 Mg Tablet PO 5 mg DAILY ANDER Administration Folic Acid 1 mg 12/20/24 09:00 12/22/24 08:19 Folic Acid 1 Mg Tablet PO 1 mg DAILY ANDER Administration Hydralazine HCl 10 mg 12/19/24 15:13 12/19/24 22:35 Hydralazine Hcl 20 Mg/Ml Vial IV PUSH 10 mg Q8H PRN Administration Blood Pressure - High Albumin Human 50 mls @ 999 mls/hr 12/20/24 06:26 Albutein IVPB 01/19/25 06:25 Q10M PRN HYPOTENSION Ceftriaxone Sodium 2 gm/ 100 mls @ 200 mls/hr 12/21/24 11:00 12/22/24 13:14 Sodium Chloride IVPB 200 mls/hr Q24H ANDER Administration Albumin Human 50 mls @ 999 mls/hr 12/22/24 07:24 Albutein IVPB 12/23/24 07:23 Q10M PRN HYPOTENSION Levetiracetam 500 mg 12/20/24 21:00 12/22/24 08:20 Levetiracetam 500 Mg Tablet PO 500 mg Q12HR ANDER Administration Metoprolol Tartrate 25 mg 12/20/24 09:00 12/22/24 08:19 Metoprolol Tartrate 25 Mg Tablet PO 25 mg Q12HR ANDER Administration Ondansetron HCl 4 mg 12/19/24 13:03 12/19/24 13:11 Ondansetron Inj 4 Mg/2 Ml Vial IV PUSH 4 mg Q6H PRN Administration Nausea And Vomiting Pantoprazole Sodium 40 mg 12/20/24 09:00 12/22/24 08:21 Pantoprazole 40 Mg Tablet PO 40 mg DAILY ANDER Administration Perflutren Lipid Microsphere 0 ml 12/19/24 22:11 Perflutren Lipid Microspheres 1.5 Ml Vial Diluted To 10 Ml Total Volume IV PUSH 12/22/24 22:11 ONCE PRN adequate visualization Protocol Tamsulosin HCl 0.8 mg 12/20/24 21:00 12/21/24 20:40 Tamsulosin Hcl 0.4 Mg Capsule PO 0.8 mg HS ANDER Administration Radiology Results: ITS Impressions Head CT 12/19/24 21:36 IMPRESSION: No acute intracranial hemorrhage or extra axial fluid collections. Chronic white matter microangiopathic changes. There is a chronic lacunar infarct in the left basal ganglia. All CT scans at this facility are performed using low dose modulation techniques as appropriate to perform exam including the following: automated exposure control; use of iterative reconstruction technique; adjustment of the mA and/or kV according to patient size (this includes techniques or standardized protocols for targeted exams where dose is matched to indication/reason for exam). 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 Correlate clinically. There is marked atherosclerotic vascular calcification of the intracranial carotid artery causing moderate stenosis. No large vessel occlusion is seen. Modified Barium Swallow 12/20/24 13:33 IMPRESSION: Mild oropharyngeal dysphagia with transient trace/flash laryngeal penetration without aspiration. Please correlate with speech pathologist findings and specific feeding recommendations. Brain MRI 12/20/24 14:12 IMPRESSION: 1. Old lacunar infarcts at the bilateral thalami, basal ganglia and internal capsules. No acute intracranial process or abnormal enhancing brain lesions. 2. Extensive periventricular predominant nonspecific white matter T2 hyperintensity consistent with chronic small vessel ischemic disease. Labs Labs: Laboratory Results - last 24 hr 12/20/24 03:59 Miscellaneous Test Comment Quality VTE Prophylaxis VTE prophylaxis: mechanical ordered Hospitalist [facility] Advance Care Plan I have confirmed that the patient's Advanced Care Plan is present, code status is documented, or surrogate decision maker is listed in patient medical record.: Yes Medication Reconciliation I have utilized all available resources to obtain, update and review the patients current medications (includes all prescriptions, OTC, herbals, cannabis, and nutritional supplements).: Yes
--- NOTE | 2024-12-22 17:56 | PC.NURSE ---
RN scanned patient's bladder and got above 300 mL of urine. RN explained the orders of straight catheterization and patient refused to allow RN do that.
[2024-12-22] MEDS: TAMSULOSIN HCL 0.4 MG CAPSULE 0.8 MG PO (20:19)
[2024-12-22] MEDS: ACETAMINOPHEN 500 MG TABLET 1000 MG PO (20:21)
[2024-12-23] VITALS (7 sets, daily range): BP systolic 147–173; BP diastolic 74–93; PULSE 70–88; RESP 16–20; TEMP 36.4–36.7; O2SAT 97–100
[2024-12-23] MEDS: FINASTERIDE 5 MG TABLET PO (08:19)
[2024-12-23] MEDS: FAMOTIDINE 20 MG TABLET PO (08:19)
[2024-12-23] MEDS: FOLIC ACID 1 MG TABLET PO (08:19)
[2024-12-23] MEDS: PANTOPRAZOLE 40 MG TABLET PO (08:20)
[2024-12-23] MEDS: METOPROLOL TARTRATE 25 MG TABLET PO ×2 (08:20→21:12)
[2024-12-23] MEDS: ASPIRIN 81 MG ENTERIC TABLET PO (08:20)
[2024-12-23] MEDS: ATORVASTATIN 40 MG TABLET PO (08:20)
[2024-12-23] MEDS: CLOPIDOGREL BISULFATE 75 MG TABLET PO (08:21)
--- NOTE | 2024-12-23 09:30 | P.PNIM_ITS ---
Progress Note: A&P Assessment and Plan (1) Dysarthria: Code(s): R47.1 - Dysarthria and anarthria Status: Acute Assessment and Plan: The patient reported experiencing intermittent dysarthria and expressive aphasia before admission. Reports his symptoms completely resolved and then returned acutely at 9:00 p.m.. Discovery of symptoms at 9:10 p.m. Code stroke activated. Patient taken for emergent CT/CTA. Stroke scale completed prior to imaging, scored a total of 6 due to a mild left facial droop, dysarthria, expressive aphasia, and a left lower extremity drift. Patient has no prior knowledge of CVA, however told he has had a previous stroke due to his earlier head CT showing multiple old lacunar infarcts. During the patient's episode of dysarthria/expressive aphasia he had left-sided facial twitching and moderate amplitude muscle spasms to the bilateral upper extremities. Patient remained conscious and no disorientation noted. He was given an additional 5 mg IV of Valium and started on Keppra. Post imaging the patient's dysarthria and expressive aphasia have significantly improved. Head CT showed no acute abnormalities. 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 12/20 Brain MRI 1. Old lacunar infarcts at the bilateral thalami, basal ganglia and internal capsules. No acute intracranial process or abnormal enhancing brain lesions. 2. Extensive periventricular predominant nonspecific white matter T2 hyperintensity consistent with chronic small vessel ischemic disease. PLAN - neurology consulted - check lipid panel and A1c - echo with bubble study 12/19/24 TTE LVEF 55-60%, moderate anterior pericardial effusion - ST/PT/OT evaluation - patient additionally has new seizure-like activity (sequela of CVA versus alcohol withdrawal induced) started on Keppra - started atorvastatin, Plavix, aspirin daily - telemetry monitoring (2) Seizure-like activity: Code(s): R56.9 - Unspecified convulsions Status: Acute Assessment and Plan: Seizure-like activity described as shaking of unknown duration witnessed by patient's family on 12/19. No prior history of seizures. Does have history of alcohol abuse with last drink 1 week ago. New onset seizures versus alcohol withdrawal seizures? Patient additionally had witnessed left-sided facial twitching during his evaluation in the emergency department that resolved with IV Valium. Recurrent this evening at 21:10, see note above. - seizure precaution - neurology consulted, brain MRI as above - CIWA and protocol in place, not requiring medications - started Keppra, loading dose of 1500 mg and 500 mg b.i.d. IVPB, changed to PO (3) Alcohol abuse: Code(s): F10.10 - Alcohol abuse, uncomplicated Status: Acute Assessment and Plan: Daily ETOH use: 1/2 pint to 1 pint for the past 10 years - last drink: 1 week ago prior to admission on 12/19 s/p Thiamine 500mg q8 x3 doses - CIWA protocol in place Diazepam PRN Librium prn seizure precautions neurochecks qshift - banana bag x1, folic acid/thiamine daily - folic acid and thiamine levels pending - antiemetics PRN (4) ESRD on dialysis: Code(s): N18.6 - End stage renal disease; Z99.2 - Dependence on renal dialysis Status: Acute Assessment and Plan: History of end-stage renal disease on dialysis Mondays, Wednesdays, Fridays. Last treatment this past Wednesday on 12/18, received full treatment. - nephrology consulted for inpatient dialysis (5) Hypertension: Qualifiers: Hypertension type: secondary to other renal disorders Qualified Code(s): I15.1 - Hypertension secondary to other renal disorders Code(s): I10 - Essential (primary) hypertension Status: Chronic Assessment and Plan: - chronic, currently 153/74 - continue home medications: Amlodipine, metoprolol, tamsulosin 0.4<0.8 - hydralazine p.r.n. for BP greater than 180/90 - monitor (6) Urinary retention: Code(s): R33.9 - Retention of urine, unspecified Status: Chronic Assessment and Plan: Urinary retention previously. Discharged with a rubi catheter Started on tamsulosin 0.4mg, increased to 0.8mg since BP uncontrolled --Straight cath if >300ml, bladder scan qshift, hasn't needed to replace rubi --If needs frequent straight caths will plan to replace rubi catheter (7) Pericardial effusion: Code(s): I31.39 - Other pericardial effusion (noninflammatory) Status: Acute Assessment and Plan: Noted on echo, LVEF 55-60% moderate pericardial effusion Check inflammatory markers, Follow up echo outpatient Plan Diet: Renal GI Prophylaxis: N/a DVT Prophylaxis: SCDs IV fluids: Banana bag x1 Lines/Tubes: pIV Code Status: Full code Time Spent With Patient Time: 56 minutes Subjective Date/time seen: 12/23/24 09:30 Interval history: Reports he didn't void overnight but hasn't had much to drink yet. Straight cathed 290 last night Encouraged fluids. & Recheck bladder scan today VSS Review of Systems Review of Systems: All systems reviewed & are unremarkable except as noted in HPI and below Exam Narrative: General - Awake and alert. No acute distress Eyes - PERRLA, EOM intact ENT - No thrush, No erythema Neck - No noticeable or palpable swelling Lymph Nodes - No lymphadenopathy Cardiovascular - RRR no m/r/g, no JVD Lungs: Clear to auscultation, No wheezing, use of accessory muscles, no crackles Skin - Skin warm and dry, no wounds or rashes Abdomen - Normal bowel sounds, abdomen soft and nontender Extremities - No edema, cyanosis or clubbing Musculoskeletal - 5/5 strength, normal range of motion, no swollen or erythematous joints. Neurological ? Alert and oriented x 2-3, Mild left sided weakness, mild dysarthria Psych: Normal mood and affect Objective Data Vital Signs Vital Signs: Vital Signs - 24 hr 12/22/24 09:45 12/22/24 10:00 12/22/24 10:15 Temperature Pulse Rate 94 97 100 Respiratory Rate Blood Pressure 153/93 H 139/92 H 151/95 H Pulse Oximetry Oxygen Delivery 12/22/24 10:30 12/22/24 10:45 12/22/24 11:00 Temperature Pulse Rate 90 86 81 Respiratory Rate Blood Pressure 150/92 H 159/92 H 152/90 H Pulse Oximetry Oxygen Delivery 12/22/24 11:15 12/22/24 11:30 12/22/24 11:45 Temperature Pulse Rate 88 84 81 Respiratory Rate Blood Pressure 136/93 H 146/88 H 152/96 H Pulse Oximetry Oxygen Delivery 12/22/24 12:00 12/22/24 12:15 12/22/24 12:21 Temperature Pulse Rate 81 82 74 Respiratory Rate Blood Pressure 156/92 H 153/94 H 155/93 H Pulse Oximetry Oxygen Delivery 12/22/24 12:30 12/22/24 13:41 12/22/24 14:54 Temperature 98.2 F 98.6 F Pulse Rate 79 78 Respiratory Rate 18 18 Blood Pressure 156/85 H 181/82 H 163/82 H Pulse Oximetry 100 100 Oxygen Delivery 12/22/24 20:18 12/22/24 20:20 12/22/24 21:52 Temperature 97.8 F Pulse Rate 78 78 Respiratory Rate 18 Blood Pressure 155/86 H Pulse Oximetry 100 Oxygen Delivery Room Air 12/23/24 05:54 12/23/24 08:20 Temperature 97.8 F Pulse Rate 72 88 Respiratory Rate 20 Blood Pressure 153/74 H Pulse Oximetry 100 Oxygen Delivery Intake/Output Intake/Output: Intake & Output 12/20/24 12/21/24 12/22/24 12/23/24 23:59 23:59 23:59 23:59 Intake Total 1450 1260 1210 480 Output Total 3400 290 2480 0 Balance -1950 970 -1270 480 Meds/Results Medications: Active Medications Generic Name Dose Route Start Last Admin Trade Name Freq PRN Reason Stop Dose Admin Acetaminophen 1,000 mg 12/20/24 10:45 12/22/24 20:21 Acetaminophen 500 Mg Tablet PO 1,000 mg Q6H PRN Administration Mild Pain (1-3) or Fever Amlodipine Besylate 10 mg 12/20/24 09:00 12/23/24 08:20 Amlodipine Besylate 10 Mg Tablet PO 10 mg DAILY ANDER Administration Aspirin 81 mg 12/20/24 09:00 12/23/24 08:20 Aspirin 81 Mg Enteric Tablet PO 81 mg QAM ANDER Administration Atorvastatin Calcium 40 mg 12/20/24 09:00 12/23/24 08:20 Atorvastatin 40 Mg Tablet PO 40 mg DAILY ANDER Administration Chlordiazepoxide HCl 25 mg 12/19/24 15:10 12/21/24 05:04 Chlordiazepoxide (*Crx) 25 Mg Capsule PO 25 mg Q6H PRN Administration Withdrawal Clopidogrel Bisulfate 75 mg 12/20/24 09:00 12/23/24 08:21 Clopidogrel Bisulfate 75 Mg Tablet PO 75 mg QAM ANDER Administration Diazepam 5 - 10 mg 12/19/24 13:03 12/19/24 13:11 Diazepam Inj (*Crx) 10 Mg/2 Ml Syringe IV PUSH 5 mg Q5M PRN Administration CIWA > 15 Famotidine 20 mg 12/20/24 09:00 12/23/24 08:19 Famotidine 20 Mg Tablet PO 20 mg DAILY ANDER Administration Finasteride 5 mg 12/20/24 09:00 12/23/24 08:19 Finasteride 5 Mg Tablet PO 5 mg DAILY ANDER Administration Folic Acid 1 mg 12/20/24 09:00 12/23/24 08:19 Folic Acid 1 Mg Tablet PO 1 mg DAILY ANDER Administration Hydralazine HCl 10 mg 12/19/24 15:13 12/19/24 22:35 Hydralazine Hcl 20 Mg/Ml Vial IV PUSH 10 mg Q8H PRN Administration Blood Pressure - High Albumin Human 50 mls @ 999 mls/hr 12/20/24 06:26 Albutein IVPB 01/19/25 06:25 Q10M PRN HYPOTENSION Ceftriaxone Sodium 2 gm/ 100 mls @ 200 mls/hr 12/21/24 11:00 12/22/24 13:14 Sodium Chloride IVPB 200 mls/hr Q24H ANDER Administration Levetiracetam 500 mg 12/20/24 21:00 12/23/24 08:19 Levetiracetam 500 Mg Tablet PO 500 mg Q12HR ANDER Administration Metoprolol Tartrate 25 mg 12/20/24 09:00 12/23/24 08:20 Metoprolol Tartrate 25 Mg Tablet PO 25 mg Q12HR ANDER Administration Ondansetron HCl 4 mg 12/19/24 13:03 12/19/24 13:11 Ondansetron Inj 4 Mg/2 Ml Vial IV PUSH 4 mg Q6H PRN Administration Nausea And Vomiting Pantoprazole Sodium 40 mg 12/20/24 09:00 12/23/24 08:20 Pantoprazole 40 Mg Tablet PO 40 mg DAILY ANDER Administration Tamsulosin HCl 0.8 mg 12/20/24 21:00 12/22/24 20:19 Tamsulosin Hcl 0.4 Mg Capsule PO 0.8 mg HS ANDER Administration Radiology Results: ITS Impressions Head CT 12/19/24 21:36 IMPRESSION: No acute intracranial hemorrhage or extra axial fluid collections. Chronic white matter microangiopathic changes. There is a chronic lacunar infarct in the left basal ganglia. All CT scans at this facility are performed using low dose modulation techniques as appropriate to perform exam including the following: automated exposure control; use of iterative reconstruction technique; adjustment of the mA and/or kV according to patient size (this includes techniques or standardized protocols for targeted exams where dose is matched to indication/reason for exam). 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 Correlate clinically. There is marked atherosclerotic vascular calcification of the intracranial carotid artery causing moderate stenosis. No large vessel occlusion is seen. Modified Barium Swallow 12/20/24 13:33 IMPRESSION: Mild oropharyngeal dysphagia with transient trace/flash laryngeal penetration without aspiration. Please correlate with speech pathologist findings and specific feeding recommendations. Brain MRI 12/20/24 14:12 IMPRESSION: 1. Old lacunar infarcts at the bilateral thalami, basal ganglia and internal capsules. No acute intracranial process or abnormal enhancing brain lesions. 2. Extensive periventricular predominant nonspecific white matter T2 hyper intensity consistent with chronic small vessel ischemic disease. Quality VTE Prophylaxis VTE prophylaxis: mechanical ordered Hospitalist MIPS Advance Care Plan I have confirmed that the patient's Advanced Care Plan is present, code status is documented, or surrogate decision maker is listed in patient medical record.: Yes Medication Reconciliation I have utilized all available resources to obtain, update and review the patients current medications (includes all prescriptions, OTC, herbals, cannabis, and nutritional supplements).: Yes
--- NOTE | 2024-12-23 12:20 | P.PNNP_ITS ---
Progress Note: A&P Assessment and Plan (1) End stage renal disease: Code(s): N18.6 - End stage renal disease Status: Chronic Assessment and Plan: * HD Finished yesterday. * continue outpatient schedule of Wednesday/Wednesdays/Wednesday while hospitalized * Volume status looks okay * electrolytes okay yesterday. * outpatient dialysis clinic = [facility] * primary plaster form maker = Dr. Deluca (2) Dysarthria: Code(s): R47.1 - Dysarthria and anarthria Status: Acute Assessment and Plan: * as reported before admission * recurred during while in ER * associated with: * mild left facial droop * expressive aphasia * left lower extremity drift * head CT negative * Head/neck CTA noted: * irregularity within the right vertebral artery at the level of C5-C6 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 * marked atherosclerotic vascular calcification of the intracranial carotid artery causing moderate stenosis * no LVO * Brain MRI (12/20): * old lacunar infarcts at the bilateral thalami, basal ganglia and internal capsules * no acute intracranial process or abnormal enhancing brain lesions * extensive periventricular predominant nonspecific white matter T2 hyperintensity consistent with chronic small vessel ischemic disease * clinical improvement in symptoms post-imaging . Facial features seems symmetric now. * Neurology following * ST/PT/OT following * on ASA/plavix/statin (3) Seizure-like activity: Code(s): R56.9 - Unspecified convulsions Status: Acute Assessment and Plan: * suggested by shaking per patient's family * during episode of dysarthria/expressive aphasia in ER, noted left-sided facial twitching and moderate amplitude muscle spasms to the bilateral upper extremities * resolved with IV valium * new onset seizure versus alcohol withdrawal seizure?? * Neurology following * on Keppra (4) UTI (urinary tract infection): Code(s): N39.0 - Urinary tract infection, site not specified Status: Acute Assessment and Plan: * admission UA suggestive * urine culture with Providencia stuartii * on Ceftriaxone (5) Anemia: Code(s): D64.9 - Anemia, unspecified Status: Chronic Assessment and Plan: * due to ESRD * Epogen with HD hemoglobin dropped to 8.1 yesterday. * Will check another test tomorrow (6) Hypertension: Qualifiers: Hypertension type: secondary to other renal disorders Qualified Code(s): I15.1 - Hypertension secondary to other renal disorders Code(s): I10 - Essential (primary) hypertension Status: Chronic Assessment and Plan: * resumed on home medications * hydralazine PRN * systolic running in the 150s. - (7) Urinary retention: Code(s): R33.9 - Retention of urine, unspecified Status: Chronic Assessment and Plan: * known history * previously had a rubi catheter * follow bladder scans * on flomax and finasteride. former is already doubled. (8) Alcohol abuse: Code(s): F10.10 - Alcohol abuse, uncomplicated Status: Acute Assessment and Plan: * known history * CIFL protocol in place * on thiamine and folate Subjective Date/time seen: 12/23/24 12:20 Interval history: patient feels okay today. He still having some problems with urination. He needed to be straight cathed yesterday. he feels like he has to go but he cannot today as well. Normally he makes urine 1 or 2 times per day. Review of Systems Cardiovascular: Cardiovascular: Reports no additional cardiovascular complaints Respiratory: Respiratory: Reports no additional respiratory complaints Gastrointestinal: Gastrointestinal: Reports no additional gastrointestinal complaints Genitourinary: Genitourinary: Reports no additional male genitourinary complaints Exam Narrative: WDWN in NAD skin no rash head ncat lungs clear cor reg no rub abd BS+ nontender and soft ext no edema. Objective Data Vital Signs Vital Signs: Vital Signs - 24 hr 12/22/24 12:21 12/22/24 12:30 12/22/24 13:41 Temperature 98.2 F 98.6 F Pulse Rate 74 79 78 Respiratory Rate 18 18 Blood Pressure 155/93 H 156/85 H 181/82 H Pulse Oximetry 100 100 Oxygen Delivery 12/22/24 14:54 12/22/24 20:18 12/22/24 20:20 Temperature Pulse Rate 78 Respiratory Rate Blood Pressure 163/82 H Pulse Oximetry Oxygen Delivery Room Air 12/22/24 21:52 12/23/24 05:54 12/23/24 08:20 Temperature 97.8 F 97.8 F Pulse Rate 78 72 88 Respiratory Rate 18 20 Blood Pressure 155/86 H 153/74 H Pulse Oximetry 100 100 Oxygen Delivery 12/23/24 08:35 Temperature Pulse Rate Respiratory Rate Blood Pressure Pulse Oximetry Oxygen Delivery Room Air Intake/Output Intake/Output: Intake & Output 12/20/24 12/21/24 12/22/24 12/23/24 23:59 23:59 23:59 23:59 Intake Total 1450 1260 1210 480 Output Total 3400 290 2480 0 Balance -1950 970 -1270 480 Meds/Results Medications: Active Medications Generic Name Dose Route Start Last Admin Trade Name Freq PRN Reason Stop Dose Admin Acetaminophen 1,000 mg 12/20/24 10:45 12/22/24 20:21 Acetaminophen 500 Mg Tablet PO 1,000 mg Q6H PRN Administration Mild Pain (1-3) or Fever Amlodipine Besylate 10 mg 12/20/24 09:00 12/23/24 08:20 Amlodipine Besylate 10 Mg Tablet PO 10 mg DAILY ANDER Administration Aspirin 81 mg 12/20/24 09:00 12/23/24 08:20 Aspirin 81 Mg Enteric Tablet PO 81 mg QAM ANDER Administration Atorvastatin Calcium 40 mg 12/20/24 09:00 12/23/24 08:20 Atorvastatin 40 Mg Tablet PO 40 mg DAILY ANDER Administration Chlordiazepoxide HCl 25 mg 12/19/24 15:10 12/21/24 05:04 Chlordiazepoxide (*Crx) 25 Mg Capsule PO 25 mg Q6H PRN Administration Withdrawal Clopidogrel Bisulfate 75 mg 12/20/24 09:00 12/23/24 08:21 Clopidogrel Bisulfate 75 Mg Tablet PO 75 mg QAM ANDER Administration Diazepam 5 - 10 mg 12/19/24 13:03 12/19/24 13:11 Diazepam Inj (*Crx) 10 Mg/2 Ml Syringe IV PUSH 5 mg Q5M PRN Administration CIWA > 15 Famotidine 20 mg 12/20/24 09:00 12/23/24 08:19 Famotidine 20 Mg Tablet PO 20 mg DAILY ANDER Administration Finasteride 5 mg 12/20/24 09:00 12/23/24 08:19 Finasteride 5 Mg Tablet PO 5 mg DAILY ANDER Administration Folic Acid 1 mg 12/20/24 09:00 12/23/24 08:19 Folic Acid 1 Mg Tablet PO 1 mg DAILY ANDER Administration Hydralazine HCl 10 mg 12/19/24 15:13 12/19/24 22:35 Hydralazine Hcl 20 Mg/Ml Vial IV PUSH 10 mg Q8H PRN Administration Blood Pressure - High Albumin Human 50 mls @ 999 mls/hr 12/20/24 06:26 Albutein IVPB 01/19/25 06:25 Q10M PRN HYPOTENSION Ceftriaxone Sodium 2 gm/ 100 mls @ 200 mls/hr 12/21/24 11:00 12/22/24 13:14 Sodium Chloride IVPB 200 mls/hr Q24H ANDER Administration Levetiracetam 500 mg 12/20/24 21:00 12/23/24 08:19 Levetiracetam 500 Mg Tablet PO 500 mg Q12HR ANDER Administration Metoprolol Tartrate 25 mg 12/20/24 09:00 12/23/24 08:20 Metoprolol Tartrate 25 Mg Tablet PO 25 mg Q12HR ANDER Administration Ondansetron HCl 4 mg 12/19/24 13:03 12/19/24 13:11 Ondansetron Inj 4 Mg/2 Ml Vial IV PUSH 4 mg Q6H PRN Administration Nausea And Vomiting Pantoprazole Sodium 40 mg 12/20/24 09:00 12/23/24 08:20 Pantoprazole 40 Mg Tablet PO 40 mg DAILY ANDER Administration Tamsulosin HCl 0.8 mg 12/20/24 21:00 12/22/24 20:19 Tamsulosin Hcl 0.4 Mg Capsule PO 0.8 mg HS ANDER Administration Radiology Results: ITS Impressions Head CT 12/19/24 21:36 IMPRESSION: No acute intracranial hemorrhage or extra axial fluid collections. Chronic white matter microangiopathic changes. There is a chronic lacunar infarct in the left basal ganglia. All CT scans at this facility are performed using low dose modulation technique s as appropriate to perform exam including the following: automated exposure control; use of iterative reconstruction technique; adjustment of the mA and/or kV according to patient size (this includes techniques or standardized protocols for targeted exams where dose is matched to indication/reason for exam). 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 Correlate clinically. There is marked atherosclerotic vascular calcification of the intracranial carotid artery causing moderate stenosis. No large vessel occlusion is seen. Modified Barium Swallow 12/20/24 13:33 IMPRESSION: Mild oropharyngeal dysphagia with transient trace/flash laryngeal penetration without aspiration. Please correlate with speech pathologist findings and specific feeding recommendations. Brain MRI 12/20/24 14:12 IMPRESSION: 1. Old lacunar infarcts at the bilateral thalami, basal ganglia and internal capsules. No acute intracranial process or abnormal enhancing brain lesions. 2. Extensive periventricular predominant nonspecific white matter T2 hyperintensity consistent with chronic small vessel ischemic disease.
[2024-12-23] MEDS: cefTRIAXone 2 GM in SODIUM CHLORIDE 0.9% IV 100 ML 200 ML IVPB (12:23)
[2024-12-23 14:08] LABS: Vit. B1, Whole Blood 251.7 nmol/L (66.5-200.0)
[2024-12-23] MEDS: ACETAMINOPHEN 500 MG TABLET 1000 MG PO (19:04)
[2024-12-23] MEDS: TAMSULOSIN HCL 0.4 MG CAPSULE 0.8 MG PO (21:12)
[2024-12-24 04:47] LABS: Hematocrit 27.6 % (42.0-52.0); Hemoglobin 8.6 g/dL (14.0-18.0); Mean Corpuscular HGB Conc 31.2 g/dl (32-36); Mean Corpuscular Hemoglobin 31.0 pg (26-34); Mean Corpuscular Volume 99.6 fl (80-100); Platelet Count Result 231 k/mm3 (150-375); Red Blood Count 2.77 M/mm3 (4.6-6.20); White Blood Count 10.9 K/mm3 (4.5-10.0)
[2024-12-24 05:04] LABS: Albumin Level 3.6 g/dL (3.5-5.1); Anion Gap 9 mmol/L (4-12); Blood Urea Nitrogen 26 mg/dL (9-20); Calcium 9.1 mg/dL (8.4-10.2); Carbon Dioxide 28 mmol/L (22-30); Chloride 100 mmol/L (98-107); Estimated CRCL calculation 8 ml/min; Estimated Glomerular Filt Rate 6; Glucose 96 mg/dL (65-110); Potassium 3.9 mmol/L (3.4-5.0); Sodium 137 mmol/L (137-145)
[2024-12-24 06:28] VITALS: BP 155/81; PULSE 79; RESP 14; TEMP 36.7; O2SAT 100
[2024-12-24] MEDS: FAMOTIDINE 20 MG TABLET PO (08:23)
[2024-12-24] MEDS: FOLIC ACID 1 MG TABLET PO (08:23)
[2024-12-24 08:24] VITALS: PULSE 78
[2024-12-24] MEDS: METOPROLOL TARTRATE 25 MG TABLET PO ×2 (08:24→20:41)
[2024-12-24] MEDS: FINASTERIDE 5 MG TABLET PO (08:24)
[2024-12-24] MEDS: PANTOPRAZOLE 40 MG TABLET PO (08:24)
[2024-12-24] MEDS: CLOPIDOGREL BISULFATE 75 MG TABLET PO (08:24)
[2024-12-24] MEDS: ATORVASTATIN 40 MG TABLET PO (08:24)
[2024-12-24] MEDS: ASPIRIN 81 MG ENTERIC TABLET PO (08:24)
[2024-12-24 08:25] VITALS: BP 171/88; PULSE 78; O2SAT 100
--- NOTE | 2024-12-24 09:44 | P.PNIM_ITS ---
Progress Note: A&P Assessment and Plan (1) Dysarthria: Code(s): R47.1 - Dysarthria and anarthria Status: Acute Assessment and Plan: The patient reported experiencing intermittent dysarthria and expressive aphasia before admission. Reports his symptoms completely resolved and then returned acutely at 9:00 p.m.. Discovery of symptoms at 9:10 p.m. Code stroke activated. Patient taken for emergent CT/CTA. Stroke scale completed prior to imaging, scored a total of 6 due to a mild left facial droop, dysarthria, expressive aphasia, and a left lower extremity drift. Patient has no prior knowledge of CVA, however told he has had a previous stroke due to his earlier head CT showing multiple old lacunar infarcts. During the patient's episode of dysarthria/expressive aphasia he had left-sided facial twitching and moderate amplitude muscle spasms to the bilateral upper extremities. Patient remained conscious and no disorientation noted. He was given an additional 5 mg IV of Valium and started on Keppra. Post imaging the patient's dysarthria and expressive aphasia have significantly improved. Head CT showed no acute abnormalities. 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 Total cholesterol 159, LDL 36, HDL 69, [id number] 12/20 Brain MRI 1. Old lacunar infarcts at the bilateral thalami, basal ganglia and internal capsules. No acute intracranial process or abnormal enhancing brain lesions. 2. Extensive periventricular predominant nonspecific white matter T2 hyperintensity consistent with chronic small vessel ischemic disease. PLAN - neurology consulted, appreciate recommendations --HgbA1c did not result, recheck in AM - echo with bubble study 12/19/24 TTE LVEF 55-60%, moderate anterior pericardial effusion - ST/PT/OT evaluated. Standby assist with PT with a walker - patient additionally has new seizure-like activity (sequela of CVA versus alcohol withdrawal induced) started on Keppra - started atorvastatin, Plavix, aspirin daily - telemetry monitoring (2) Seizure-like activity: Code(s): R56.9 - Unspecified convulsions Status: Acute Assessment and Plan: Seizure-like activity described as shaking of unknown duration witnessed by patient's family on 12/19. No prior history of seizures. Does have history of alcohol abuse with last drink 1 week ago. New onset seizures versus alcohol withdrawal seizures? Patient additionally had witnessed left-sided facial twit daniel during his evaluation in the emergency department that resolved with IV Valium. Recurrent this evening at 21:10, see note above. - seizure precaution - neurology consulted, brain MRI as above - CIWA and protocol in place, not requiring medications - started Keppra, loading dose of 1500 mg and 500 mg b.i.d. IVPB, changed to PO (3) Alcohol abuse: Code(s): F10.10 - Alcohol abuse, uncomplicated Status: Acute Assessment and Plan: Daily ETOH use: 1/2 pint to 1 pint for the past 10 years - last drink: 1 week ago prior to admission on 12/19 s/p Thiamine 500mg q8 x3 doses - CIWA protocol in place Diazepam PRN Librium prn seizure precautions neurochecks qshift - banana bag x1, folic acid/thiamine daily - folic acid and thiamine levels pending - antiemetics PRN (4) ESRD on dialysis: Code(s): N18.6 - End stage renal disease; Z99.2 - Dependence on renal dialysis Status: Acute Assessment and Plan: History of end-stage renal disease on dialysis Mondays, Wednesdays, Fridays. Last treatment this past Wednesday on 12/18, received full treatment. 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 for BP greater than 180/90 - monitor (6) Urinary retention: Code(s): R33.9 - Retention of urine, unspecified Status: Chronic Assessment and Plan: Urinary retention previously. Discharged with a rubi catheter Started on tamsulosin 0.4mg, increased to 0.8mg since BP uncontrolled Rubi Dc'd 12/20 --Straight cath if >300ml, bladder scan qshift, hasn't needed to replace rubi. --If needs frequent straight caths will plan to replace rubi catheter. Straight cathed twice, both between 300-400ml (7) Pericardial effusion: Code(s): I31.39 - Other pericardial effusion (noninflammatory) Status: Acute Assessment and Plan: Noted on echo, LVEF 55-60% moderate pericardial effusion (8) UTI (urinary tract infection): Code(s): N39.0 - Urinary tract infection, site not specified Status: Acute Assessment and Plan: Urine culture grew Providencia stuartii, resistant to multiple antibiotics. Indwelling catheter removed and have been cathing intermittently. --Continue Ceftriaxone 12/21-12/25 (9) Diarrhea: Code(s): R19.7 - Diarrhea, unspecified Status: Acute Assessment and Plan: 4 loose stools yesterday, 3 today --Check C-diff since having diarrhea Plan Diet: Renal GI Prophylaxis: N/a DVT Prophylaxis: SCDs IV fluids: Banana bag x1 Lines/Tubes: pIV Code Status: Full code Time Spent With Patient Time: 57 minutes Subjective Date/time seen: 12/24/24 09:44 Interval history: Multiple episodes of diarrhea, 4 yesterday, 3 today. Checking C-diff Bladder scanned and 360 post void. May need to replace rubi prior to discharge No tremors or seizure activity reported Review of Systems Review of Systems: All systems reviewed & are unremarkable except as noted in HPI and below Exam Narrative: General - Awake and alert. No acute distress Eyes - PERRLA, EOM intact ENT - No thrush, No erythema Neck - No noticeable or palpable swelling Lymph Nodes - No lymphadenopathy Cardiovascular - RRR no m/r/g, no JVD Lungs: Clear to auscultation, No wheezing, use of accessory muscles, no crackles Skin - Skin warm and dry, no wounds or rashes Abdomen - Normal bowel sounds, abdomen soft and nontender Extremities - No edema, cyanosis or clubbing Musculoskeletal - 5/5 strength, normal range of motion, no swollen or erythematous joints. Neurological ? Alert and oriented x 2-3, Mild left sided weakness, mild dysarthria Psych: Normal mood and affect Objective Data Vital Signs Vital Signs: Vital Signs - 24 hr 12/23/24 14:16 12/23/24 19:05 12/23/24 20:00 Temperature 98.1 F Pulse Rate 78 Pulse Rate [Left Radial Palpation] 80 Respiratory Rate 18 Blood Pressure 147/88 H 173/89 H Pulse Oximetry 100 Oxygen Delivery 12/23/24 21:12 12/23/24 22:44 12/24/24 06:28 Temperature 97.6 F 98.1 F Pulse Rate 70 88 79 Pulse Rate [Left Radial Palpation] Respiratory Rate 16 14 Blood Pressure 170/93 H 155/81 H Pulse Oximetry 97 100 Oxygen Delivery 12/24/24 08:24 12/24/24 08:25 12/24/24 08:25 Temperature Pulse Rate 78 78 Pulse Rate [Left Radial Palpation] Respiratory Rate Blood Pressure 171/88 H Pulse Oximetry 100 Oxygen Delivery Room Air Intake/Output Intake/Output: Intake & Output 12/21/24 12/22/24 12/23/24 12/24/24 23:59 23:59 23:59 23:59 Intake Total 1260 1310 1080 360 Output Total 290 2480 0 Balance 970 -1170 1080 360 Meds/Results Medications: Active Medications Generic Name Dose Route Start Last Admin Trade Name Freq PRN Reason Stop Dose Admin Acetaminophen 1,000 mg 12/20/24 10:45 12/23/24 19:04 Acetaminophen 500 Mg Tablet PO 1,000 mg Q6H PRN Administration Mild Pain (1-3) or Fever Amlodipine Besylate 10 mg 12/20/24 09:00 12/24/24 08:24 Amlodipine Besylate 10 Mg Tablet PO 10 mg DAILY ANDER Administration Aspirin 81 mg 12/20/24 09:00 12/24/24 08:24 Aspirin 81 Mg Enteric Tablet PO 81 mg QAM ANDER Administration Atorvastatin Calcium 40 mg 12/20/24 09:00 12/24/24 08:24 Atorvastatin 40 Mg Tablet PO 40 mg DAILY ANDER Administration Chlordiazepoxide HCl 25 mg 12/19/24 15:10 12/21/24 05:04 Chlordiazepoxide (*Crx) 25 Mg Capsule PO 25 mg Q6H PRN Administration Withdrawal Clopidogrel Bisulfate 75 mg 12/20/24 09:00 12/24/24 08:24 Clopidogrel Bisulfate 75 Mg Tablet PO 75 mg QAM ANDER Administration Diazepam 5 - 10 mg 12/19/24 13:03 12/19/24 13:11 Diazepam Inj (*Crx) 10 Mg/2 Ml Syringe IV PUSH 5 mg Q5M PRN Administration CIWA > 15 Epoetin Rodney-epbx 10,000 units 12/25/24 07:00 Epoetin Rodney-Epbx 10,000 Units/Ml Vial IV PUSH 12/25/24 07:01 ONCE ONE Famotidine 20 mg 12/20/24 09:00 12/24/24 08:23 Famotidine 20 Mg Tablet PO 20 mg DAILY ANDER Administration Finasteride 5 mg 12/20/24 09:00 12/24/24 08:24 Finasteride 5 Mg Tablet PO 5 mg DAILY ANDER Administration Folic Acid 1 mg 12/20/24 09:00 12/24/24 08:23 Folic Acid 1 Mg Tablet PO 1 mg DAILY ANDER Administration Heparin Sodium (Porcine) 500 units 12/24/24 09:00 Heparin Sodium 1,000 Units/Ml Vial IV PUSH 12/24/24 10:01 Q1H ANDER Hydralazine HCl 10 mg 12/19/24 15:13 12/19/24 22:35 Hydralazine Hcl 20 Mg/Ml Vial IV PUSH 10 mg Q8H PRN Administration Blood Pressure - High Albumin Human 50 mls @ 999 mls/hr 12/20/24 06:26 Albutein IVPB 01/19/25 06:25 Q10M PRN HYPOTENSION Ceftriaxone Sodium 2 gm/ 100 mls @ 200 mls/hr 12/21/24 11:00 12/23/24 12:23 Sodium Chloride IVPB 200 mls/hr Q24H ANDER Administration Albumin Human 50 mls @ 999 mls/hr 12/24/24 08:58 Albutein IVPB 12/25/24 08:57 Q10M PRN HYPOTENSION Sodium Chloride 1,000 mls @ 999 mls/hr 12/24/24 08:58 Normal Saline Iv IV CONT 12/24/24 09:58 .Q1H1M ONE Levetiracetam 500 mg 12/20/24 21:00 12/24/24 08:23 Levetiracetam 500 Mg Tablet PO 500 mg Q12HR ANDER Administration Metoprolol Tartrate 25 mg 12/20/24 09:00 12/24/24 08:24 Metoprolol Tartrate 25 Mg Tablet PO 25 mg Q12HR ANDER Administration Ondansetron HCl 4 mg 12/19/24 13:03 12/19/24 13:11 Ondansetron Inj 4 Mg/2 Ml Vial IV PUSH 4 mg Q6H PRN Administration Nausea And Vomiting Pantoprazole Sodium 40 mg 12/20/24 09:00 12/24/24 08:24 Pantoprazole 40 Mg Tablet PO 40 mg DAILY ANDER Administration Tamsulosin HCl 0.8 mg 12/20/24 21:00 12/23/24 21:12 Tamsulosin Hcl 0.4 Mg Capsule PO 0.8 mg HS ANDER Administration Radiology Results: ITS Impressions Head CT 12/19/24 21:36 IMPRESSION: No acute intracranial hemorrhage or extra axial fluid collections. Chronic white matter microangiopathic changes. There is a chronic lacunar infarct in the left basal ganglia. All CT scans at this facility are performed using low dose modulation tech niques as appropriate to perform exam including the following: automated exposure control; use of iterative reconstruction technique; adjustment of the mA and/or kV according to patient size (this includes techniques or standardized protocols for targeted exams where dose is matched to indication/reason for exam). 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 Correlate clinically. There is marked atherosclerotic vascular calcification of the intracranial carotid artery causing moderate stenosis. No large vessel occlusion is seen. Modified Barium Swallow 12/20/24 13:33 IMPRESSION: Mild oropharyngeal dysphagia with transient trace/flash laryngeal penetration without aspiration. Please correlate with speech pathologist findings and specific feeding recommendations. Brain MRI 12/20/24 14:12 IMPRESSION: 1. Old lacunar infarcts at the bilateral thalami, basal ganglia and internal capsules. No acute intracranial process or abnormal enhancing brain lesions. 2. Extensive periventricular predominant nonspecific white matter T2 hyperintens ity consistent with chronic small vessel ischemic disease. Labs Labs: Laboratory Results - last 24 hr 12/20/24 12/24/24 04:01 04:13 WBC 10.9 H RBC 2.77 L Hgb 8.6 L Hct 27.6 L MCV 99.6 MCH 31.0 MCHC 31.2 L RDW 18.3 H Plt Count 231 MPV 11.0 H Sodium 137 Potassium 3.9 Chloride 100 Carbon Dioxide 28 Anion Gap 9 BUN 26 H Creatinine 8.36 H Estim Creat Clear Calc 8 Estimated GFR 6 L Glucose 96 Calcium 9.1 Phosphorus 3.4 Albumin 3.6 Whole Bld Vitamin B1 251.7 H Quality VTE Prophylaxis VTE prophylaxis: mechanical ordered Hospitalist MIPS Advance Care Plan I have confirmed that the patient's Advanced Care Plan is present, code status is documented, or surrogate decision maker is listed in patient medical record.: Yes Medication Reconciliation I have utilized all available resources to obtain, update and review the patients current medications (includes all prescriptions, OTC, herbals, cannabis, and nutritional supplements).: Yes
[2024-12-24] MEDS: cefTRIAXone 2 GM in SODIUM CHLORIDE 0.9% IV 100 ML 200 ML IVPB (11:06)
--- NOTE | 2024-12-24 11:30 | P.PNNP_ITS ---
Progress Note: A&P Assessment and Plan (1) End stage renal disease: Code(s): N18.6 - End stage renal disease Status: Chronic Assessment and Plan: * HD finished Wednesday. * continue outpatient schedule of Wednesday/Wednesdays/Wednesday while hospitalized Next treatment tomorrow. * Volume status looks okay * electrolytes okay yesterday. * outpatient dialysis clinic = [facility] * primary meter repairer = Dr. Deluca (2) Dysarthria: Code(s): R47.1 - Dysarthria and anarthria Status: Acute Assessment and Plan: * as reported before admission * recurred during while in ER * associated with: * mild left facial droop * expressive aphasia * left lower extremity drift * head CT negative * Head/neck CTA noted: * irregularity within the right vertebral artery at the level of C5-C6 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 * marked atherosclerotic vascular calcification of the intracranial carotid artery causing moderate stenosis * no LVO * Brain MRI (12/20): * old lacunar infarcts at the bilateral thalami, basal ganglia and internal capsules * no acute intracranial process or abnormal enhancing brain lesions * extensive periventricular predominant nonspecific white matter T2 hyperintensity consistent with chronic small vessel ischemic disease * clinical improvement in symptoms post-imaging . Facial features seems symmetric now. * Neurology following * stable * ST/PT/OT following * on ASA/plavix/statin (3) Seizure-like activity: Code(s): R56.9 - Unspecified convulsions Status: Acute Assessment and Plan: * suggested by shaking per patient's family * during episode of dysarthria/expressive aphasia in ER, noted left-sided facial twitching and moderate amplitude muscle spasms to the bilateral upper extremities * resolved with IV valium * new onset seizure versus alcohol withdrawal seizure?? * Neurology following * no more episodes noted * on Keppra (4) UTI (urinary tract infection): Code(s): N39.0 - Urinary tract infection, site not specified Status: Acute Assessment and Plan: * admission UA suggestive * urine culture with Providencia stuartii * on Ceftriaxone (5) Anemia: Code(s): D64.9 - Anemia, unspecified Status: Chronic Assessment and Plan: * due to ESRD * Epogen with HD * hemoglobin came up to 8.6. * Will check another Hemoglobin tomorrow (6) Hypertension: Qualifiers: Hypertension type: secondary to other renal disorders Qualified Code(s): I15.1 - Hypertension secondary to other renal disorders Code(s): I10 - Essential (primary) hypertension Status: Chronic Assessment and Plan: * resumed on home medications * hydralazine PRN * systolic running in the 150s to 170s * will add carvedilol - (7) Urinary retention: Code(s): R33.9 - Retention of urine, unspecified Status: Chronic Assessment and Plan: * known history * previously had a rubi catheter * follow bladder scans * no straight caths yesterday or today * on flomax and finasteride. (8) Alcohol abuse: Code(s): F10.10 - Alcohol abuse, uncomplicated Status: Acute Assessment and Plan: * known history * [facility] protocol in place * on thiamine and folate Subjective Date/time seen: 12/24/24 11:30 Interval history: Patient is feeling okay. Getting back from the chair to his bed. He end up urinating and did not need a straight cath yesterday or this morning. Exam Narrative: WDWN in NAD skin no rash head ncat lungs clear Bilaterally cor reg no rub abd BS+ nontender and soft ext no edema. Objective Data Vital Signs Vital Signs: Vital Signs - 24 hr 12/23/24 14:16 12/23/24 19:05 12/23/24 20:00 Temperature 98.1 F Pulse Rate 78 Pulse Rate [Left Radial Palpation] 80 Respiratory Rate 18 Blood Pressure 147/88 H 173/89 H Pulse Oximetry 100 Oxygen Delivery 12/23/24 21:12 12/23/24 22:44 12/24/24 06:28 Temperature 97.6 F 98.1 F Pulse Rate 70 88 79 Pulse Rate [Left Radial Palpation] Respiratory Rate 16 14 Blood Pressure 170/93 H 155/81 H Pulse Oximetry 97 100 Oxygen Delivery 12/24/24 08:24 12/24/24 08:25 12/24/24 08:25 Temperature Pulse Rate 78 78 Pulse Rate [Left Radial Palpation] Respiratory Rate Blood Pressure 171/88 H Pulse Oximetry 100 Oxygen Delivery Room Air Intake/Output Intake/Output: Intake & Output 12/21/24 12/22/24 12/23/24 12/24/24 23:59 23:59 23:59 23:59 Intake Total 1260 1310 1180 360 Output Total 290 2480 0 Balance 970 -1170 1180 360 Meds/Results Medications: Active Medications Generic Name Dose Route Start Last Admin Trade Name Freq PRN Reason Stop Dose Admin Acetaminophen 1,000 mg 12/20/24 10:45 12/23/24 19:04 Acetaminophen 500 Mg Tablet PO 1,000 mg Q6H PRN Administration Mild Pain (1-3) or Fever Amlodipine Besylate 10 mg 12/20/24 09:00 12/24/24 08:24 Amlodipine Besylate 10 Mg Tablet PO 10 mg DAILY ANDER Administration Aspirin 81 mg 12/20/24 09:00 12/24/24 08:24 Aspirin 81 Mg Enteric Tablet PO 81 mg QAM ANDER Administration Atorvastatin Calcium 40 mg 12/20/24 09:00 12/24/24 08:24 Atorvastatin 40 Mg Tablet PO 40 mg DAILY ANDER Administration Chlordiazepoxide HCl 25 mg 12/19/24 15:10 12/21/24 05:04 Chlordiazepoxide (*Crx) 25 Mg Capsule PO 25 mg Q6H PRN Administration Withdrawal Clopidogrel Bisulfate 75 mg 12/20/24 09:00 12/24/24 08:24 Clopidogrel Bisulfate 75 Mg Tablet PO 75 mg QAM ANDER Administration Diazepam 5 - 10 mg 12/19/24 13:03 12/19/24 13:11 Diazepam Inj (*Crx) 10 Mg/2 Ml Syringe IV PUSH 5 mg Q5M PRN Administration CIWA > 15 Epoetin Rodney-epbx 10,000 units 12/25/24 07:00 Epoetin Rodney-Epbx 10,000 Units/Ml Vial IV PUSH 12/25/24 07:01 ONCE ONE Famotidine 20 mg 12/20/24 09:00 12/24/24 08:23 Famotidine 20 Mg Tablet PO 20 mg DAILY ANDER Administration Finasteride 5 mg 12/20/24 09:00 12/24/24 08:24 Finasteride 5 Mg Tablet PO 5 mg DAILY ANDER Administration Folic Acid 1 mg 12/20/24 09:00 12/24/24 08:23 Folic Acid 1 Mg Tablet PO 1 mg DAILY ANDER Administration Hydralazine HCl 10 mg 12/19/24 15:13 12/19/24 22:35 Hydralazine Hcl 20 Mg/Ml Vial IV PUSH 10 mg Q8H PRN Administration Blood Pressure - High Albumin Human 50 mls @ 999 mls/hr 12/20/24 06:26 Albutein IVPB 01/19/25 06:25 Q10M PRN HYPOTENSION Ceftriaxone Sodium 2 gm/ 100 mls @ 200 mls/hr 12/21/24 11:00 12/24/24 11:06 Sodium Chloride IVPB 200 mls/hr Q24H ANDER Administration Albumin Human 50 mls @ 999 mls/hr 12/24/24 08:58 Albutein IVPB 12/25/24 08:57 Q10M PRN HYPOTENSION Levetiracetam 500 mg 12/20/24 21:00 12/24/24 08:23 Levetiracetam 500 Mg Tablet PO 500 mg Q12HR ANDER Administration Metoprolol Tartrate 25 mg 12/20/24 09:00 12/24/24 08:24 Metoprolol Tartrate 25 Mg Tablet PO 25 mg Q12HR ANDER Administration Ondansetron HCl 4 mg 12/19/24 13:03 12/19/24 13:11 Ondansetron Inj 4 Mg/2 Ml Vial IV PUSH 4 mg Q6H PRN Administration Nausea And Vomiting Pantoprazole Sodium 40 mg 12/20/24 09:00 12/24/24 08:24 Pantoprazole 40 Mg Tablet PO 40 mg DAILY ANDER Administration Tamsulosin HCl 0.8 mg 12/20/24 21:00 12/23/24 21:12 Tamsulosin Hcl 0.4 Mg Capsule PO 0.8 mg HS ANDER Administration Radiology Results: ITS Impressions Head CT 12/19/24 21:36 IMPRESSION: No acute intracranial hemorrhage or extra axial fluid collections. Chronic white matter microangiopathic changes. There is a chronic lacunar infarct in the left basal ganglia. All CT scans at this facility are performed using low dose modulation techniques as appropriate to perform exam including the following: automated exposure control; use of iterative reconstruction technique; adjustment of the mA and/or kV according to patient size (this includes techniques or standardized protocols for targeted exams where dose is matched to indication/reason for exam). 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 Correlate clinically. There is marked atherosclerotic vascular calcification of the intracranial carotid artery causing moderate stenosis. No large vessel occlusion is seen. Modified Barium Swallow 12/20/24 13:33 IMPRESSION: Mild oropharyngeal dysphagia with transient trace/flash laryngeal penetration without aspiration. Please correlate with speech pathologist findings and specific feeding recommendations. Brain MRI 12/20/24 14:12 IMPRESSION: 1. Old lacunar infarcts at the bilateral thalami, basal ganglia and internal capsules. No acute intracranial process or abnormal enhancing brain lesions. 2. Extensive periventricular predominant nonspecific white matter T2 hyperintensity consistent with chronic small vessel ischemic disease. Labs Labs: Laboratory Results - last 24 hr 12/20/24 12/24/24 04:01 04:13 WBC 10.9 H RBC 2.77 L Hgb 8.6 L Hct 27.6 L MCV 99.6 MCH 31.0 MCHC 31.2 L RDW 18.3 H Plt Count 231 MPV 11.0 H Sodium 137 Potassium 3.9 Chloride 100 Carbon Dioxide 28 Anion Gap 9 BUN 26 H Creatinine 8.36 H Estim Creat Clear Calc 8 Estimated GFR 6 L Glucose 96 Calcium 9.1 Phosphorus 3.4 Albumin 3.6 Whole Bld Vitamin B1 251.7 H
[2024-12-24 12:04] VITALS: PULSE 84
[2024-12-24 14:00] VITALS: BP 179/85; PULSE 78; RESP 16; TEMP 36.4; O2SAT 100
[2024-12-24 20:28] LABS: Toxigenic C. Diff POSITIVE (NEGATIVE)
[2024-12-24] MEDS: TAMSULOSIN HCL 0.4 MG CAPSULE 0.8 MG PO (20:40)
[2024-12-24] MEDS: ACETAMINOPHEN 500 MG TABLET 1000 MG PO (20:43)
[2024-12-24 21:03] VITALS: BP 169/88; PULSE 82; RESP 16; TEMP 36.6; O2SAT 98
--- NOTE | 2024-12-24 21:23 | PM.EVENT ---
Event Note Event Note Event Note: Patient is C diff positive. Dificid ordered.
[2024-12-24] MEDS: FIDAXOMICIN 200 MG TABLET PO (21:52)
--- NOTE | 2024-12-24 21:53 | PC.NURSE ---
This nurse received call from lab stating that pt was positive for Cdiff contact iso initiated at this time. Dr. Salas also called and orders have been placed at this time.
[2024-12-25] VITALS (23 sets, daily range): BP systolic 139–184; BP diastolic 70–106; PULSE 73–97; RESP 15–16; TEMP 36.4–37; O2SAT 97–100
[2024-12-25 02:31] LABS: Clostridium Difficile GDH Ag Positive (Negative)
[2024-12-25 02:33] LABS: CDiff Toxin A&B Ag Negative (Negative)
[2024-12-25 04:40] LABS: Hematocrit 26.3 % (42.0-52.0); Hemoglobin 8.2 g/dL (14.0-18.0); Mean Corpuscular HGB Conc 31.2 g/dl (32-36); Mean Corpuscular Hemoglobin 31.2 pg (26-34); Mean Corpuscular Volume 100.0 fl (80-100); Platelet Count Result 258 k/mm3 (150-375); Red Blood Count 2.63 M/mm3 (4.6-6.20); White Blood Count 11.8 K/mm3 (4.5-10.0)
[2024-12-25 05:18] LABS: Albumin Level 3.5 g/dL (3.5-5.1); Anion Gap 9 mmol/L (4-12); Blood Urea Nitrogen 38 mg/dL (9-20); Calcium 9.1 mg/dL (8.4-10.2); Carbon Dioxide 25 mmol/L (22-30); Chloride 101 mmol/L (98-107); Estimated CRCL calculation 6 ml/min; Estimated Glomerular Filt Rate 5; Glucose 93 mg/dL (65-110); Potassium 4.3 mmol/L (3.4-5.0); Sodium 135 mmol/L (137-145)
--- NOTE | 2024-12-25 09:52 | PCOTNOTE ---
Patient out of room for dialysis. Will continue to follow.
--- NOTE | 2024-12-25 10:05 | P.PNNP_ITS ---
Progress Note: A&P Assessment and Plan (1) End stage renal disease: Code(s): N18.6 - End stage renal disease Status: Chronic Assessment and Plan: * HD today * continue outpatient schedule of Wednesday/Wednesdays/Wednesday while hospitalized * follow electrolytes, volume status, and clearance * outpatient dialysis clinic = [facility] [place] * primary hr clerk = Dr. Deluca (2) Dysarthria: Code(s): R47.1 - Dysarthria and anarthria Status: Acute Assessment and Plan: * as reported before admission * recurred during while in ER * associated with: * mild left facial droop * expressive aphasia * left lower extremity drift * head CT negative * Head/neck CTA noted: * irregularity within the right vertebral artery at the level of C5-C6 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 * marked atherosclerotic vascular calcification of the intracranial carotid artery causing moderate stenosis * no LVO * Brain MRI (12/20): * old lacunar infarcts at the bilateral thalami, basal ganglia and internal capsules * no acute intracranial process or abnormal enhancing brain lesions * extensive periventricular predominant nonspecific white matter T2 hyperintensity consistent with chronic small vessel ischemic disease * clinical improvement in symptoms post-imaging . Facial features seems symmetric now. * Neurology following * seems stable * ST/PT/OT following * remains on ASA/plavix/statin (3) Seizure-like activity: Code(s): R56.9 - Unspecified convulsions Status: Acute Assessment and Plan: * suggested by shaking per patient's family * during episode of dysarthria/expressive aphasia in ER, noted left-sided facial twitching and moderate amplitude muscle spasms to the bilateral upper extremities * resolved with IV valium * new onset seizure versus alcohol withdrawal seizure?? * Neurology following * no further episodes noted * on Keppra (4) UTI (urinary tract infection): Code(s): N39.0 - Urinary tract infection, site not specified Status: Acute Assessment and Plan: * admission UA suggestive * urine culture with Providencia stuartii and E. coli * on antibiotics (5) C. difficile colitis: Code(s): A04.72 - Enterocolitis due to Clostridium difficile, not specified as recurrent Status: Acute Assessment and Plan: * noted positive testing (on 12/24) * on Dificid (6) Anemia: Code(s): D64.9 - Anemia, unspecified Status: Chronic Assessment and Plan: * due to ESRD * Epogen with HD * follow trend of H/H (7) Hypertension: Qualifiers: Hypertension type: secondary to other renal disorders Qualified Code(s): I15.1 - Hypertension secondary to other renal disorders Code(s): I10 - Essential (primary) hypertension Status: Chronic Assessment and Plan: * resumed on home medications * still fluctuating * medication adjustments noted * follow trend of hemodynamics - (8) Urinary retention: Code(s): R33.9 - Retention of urine, unspecified Status: Chronic Assessment and Plan: * known history * previously had a rubi catheter * follow bladder scans * on flomax and finasteride (9) Alcohol abuse: Code(s): F10.10 - Alcohol abuse, uncomplicated Status: Acute Assessment and Plan: * known history * CIWA protocol in place * on thiamine and folate Will continue to follow. L (10) ESRD on dialysis: Code(s): N18.6 - End stage renal disease; Z99.2 - Dependence on renal dialysis Status: Acute Assessment and Plan: History of end-stage renal disease on dialysis Mondays, Wednesdays, Fridays. Last treatment this past Wednesday on 12/18, received full treatment. - nephrology consulted for inpatient dialysis (11) Pericardial effusion: Code(s): I31.39 - Other pericardial effusion (noninflammatory) Status: Acute Assessment and Plan: Noted on echo, LVEF 55-60% moderate pericardial effusion (12) Diarrhea: Code(s): R19.7 - Diarrhea, unspecified Status: Acute Assessment and Plan: 4 loose stools yesterday, 3 today --Check C-diff since having diarrhea Plan Diet: Renal GI Prophylaxis: N/a DVT Prophylaxis: SCDs IV fluids: Banana bag x1 Lines/Tubes: pIV Code Status: Full code Time Spent With Patient Time: 57 minutes Subjective Date/time seen: 12/25/24 10:05 Interval history: Follow-up for end stage renal disease on hemodialysis. Chart reviewed since last seen -- tolerating dialysis treatment at the time of my visit (seen on HD at 09:55am); no apparent distress noted when seen; no acute issues/events overnight or earlier this morning; noted C. diff positive testing yesterday evening and started on Dificid. Exam 2 Narrative: General: elderly male in NAD Heart: normal S1 and S2; no rub Lungs: clear to auscultation Abdomen: soft, nontender, nondistended, positive bowel sounds Extremities: no cyanosis or clubbing; no edema Skin: no rash Objective Data Vital Signs Vital Signs: Vital Signs Temp Pulse Pulse Resp BP Pulse Ox O2 Flow Rate 12/25/24 10:00 97 170/101 H 12/25/24 09:45 88 157/94 H 12/25/24 09:30 85 159/91 H 12/25/24 09:15 88 165/87 H 12/25/24 09:00 86 172/95 H 12/25/24 08:52 82 171/98 H 12/25/24 08:44 98.6 F 85 15 184/100 H 100 12/25/24 08:44 0 12/25/24 04:14 97.6 F 76 16 168/98 H 100 12/25/24 03:56 76 139/87 12/25/24 00:00 80 145/77 H 12/24/24 21:03 97.9 F 82 16 169/88 H 98 12/24/24 14:00 97.6 F 78 16 179/85 H 100 12/24/24 12:04 84 Intake/Output Intake/Output: Intake & Output 12/22/24 12/23/24 12/24/24 12/25/24 23:59 23:59 23:59 23:59 Intake Total 1310 1180 1340 590 Output Total 2480 0 0 Balance -1170 1180 1340 590 Meds/Results Medications: Active Medications Generic Name Dose Route Start Last Admin Trade Name Freq PRN Reason Stop Dose Admin Acetaminophen 1,000 mg 12/20/24 10:45 12/24/24 20:43 Acetaminophen 500 Mg Tablet PO 1,000 mg Q6H PRN Administration Mild Pain (1-3) or Fever Amlodipine Besylate 10 mg 12/20/24 09:00 12/24/24 08:24 Amlodipine Besylate 10 Mg Tablet PO 10 mg DAILY ANDER Administration Aspirin 81 mg 12/20/24 09:00 12/24/24 08:24 Aspirin 81 Mg Enteric Tablet PO 81 mg QAM ANDER Administration Atorvastatin Calcium 40 mg 12/20/24 09:00 12/24/24 08:24 Atorvastatin 40 Mg Tablet PO 40 mg DAILY ANDER Administration Carvedilol 12.5 mg 12/24/24 11:40 12/24/24 20:41 Carvedilol 12.5 Mg Tablet PO 12.5 mg Q12HR ANDER Administration Chlordiazepoxide HCl 25 mg 12/19/24 15:10 12/21/24 05:04 Chlordiazepoxide (*Crx) 25 Mg Capsule PO 25 mg Q6H PRN Administration Withdrawal Clopidogrel Bisulfate 75 mg 12/20/24 09:00 12/24/24 08:24 Clopidogrel Bisulfate 75 Mg Tablet PO 75 mg QAM ANDER Administration Diazepam 5 - 10 mg 12/19/24 13:03 12/19/24 13:11 Diazepam Inj (*Crx) 10 Mg/2 Ml Syringe IV PUSH 5 mg Q5M PRN Administration CIWA > 15 Epoetin Rdoney-epbx 10,000 units 12/25/24 18:00 Epoetin Rodney-Epbx 10,000 Units/Ml Vial IV PUSH 12/25/24 18:01 ONCE ONE Famotidine 20 mg 12/20/24 09:00 12/24/24 08:23 Famotidine 20 Mg Tablet PO 20 mg DAILY ANDER Administration Fidaxomicin 200 mg 12/24/24 21:20 12/24/24 21:52 Fidaxomicin 200 Mg Tablet PO 01/03/25 21:19 200 mg Q12HR ANDER Administration Finasteride 5 mg 12/20/24 09:00 12/24/24 08:24 Finasteride 5 Mg Tablet PO 5 mg DAILY ANDER Administration Folic Acid 1 mg 12/20/24 09:00 12/24/24 08:23 Folic Acid 1 Mg Tablet PO 1 mg DAILY ANDER Administration Hydralazine HCl 10 mg 12/19/24 15:13 12/19/24 22:35 Hydralazine Hcl 20 Mg/Ml Vial IV PUSH 10 mg Q8H PRN Administration Blood Pressure - High Albumin Human 50 mls @ 999 mls/hr 12/20/24 06:26 Albutein IVPB 01/19/25 06:25 Q10M PRN HYPOTENSION Ceftriaxone Sodium 2 gm/ 100 mls @ 200 mls/hr 12/21/24 11:00 12/24/24 11:06 Sodium Chloride IVPB 12/25/24 19:00 200 mls/hr Q24H ANDER Administration Levetiracetam 500 mg 12/20/24 21:00 12/24/24 20:41 Levetiracetam 500 Mg Tablet PO 500 mg Q12HR ANDER Administration Metoprolol Tartrate 25 mg 12/20/24 09:00 12/24/24 20:41 Metoprolol Tartrate 25 Mg Tablet PO 25 mg Q12HR ANDER Administration Ondansetron HCl 4 mg 12/19/24 13:03 12/19/24 13:11 Ondansetron Inj 4 Mg/2 Ml Vial IV PUSH 4 mg Q6H PRN Administration Nausea And Vomiting Pantoprazole Sodium 40 mg 12/20/24 09:00 12/24/24 08:24 Pantoprazole 40 Mg Tablet PO 40 mg DAILY ANDER Administration Tamsulosin HCl 0.8 mg 12/20/24 21:00 12/24/24 20:40 Tamsulosin Hcl 0.4 Mg Capsule PO 0.8 mg HS ANDER Administration Radiology Results: ITS Impressions Head CT 12/19/24 21:36 IMPRESSION: No acute intracranial hemorrhage or extra axial fluid collections. Chronic white matter microangiopathic changes. There is a chronic lacunar infarct in the left basal ganglia. All CT scans at this facility are performed using low dose modulation techniques as appropriate to perform exam including the following: automated exposure control; use of iterative reconstruction technique; adjustment of the mA and/or kV according to patient size (this includes techniques or standardized protocols for targeted exams where dose is matched to indication/reason for exam). 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 Correlate clinically. There is marked atherosclerotic vascular calcification of the intracranial carotid artery causing moderate stenosis. No large vessel occlusion is seen. Modified Barium Swallow 12/20/24 13:33 IMPRESSION: Mild oropharyngeal dysphagia with transient trace/flash laryngeal penetration without aspiration. Please correlate with speech pathologist findings and specific feeding recommendations. Brain MRI 12/20/24 14:12 IMPRESSION: 1. Old lacunar infarcts at the bilateral thalami, basal ganglia and internal capsules. No acute intracranial process or abnormal enhancing brain lesions. 2. Extensive periventricular predominant nonspecific white matter T2 hyperintensity consistent with chronic small vessel ischemic disease. Labs Labs: Laboratory Tests 12/25/24 04:32 12/25/24 04:32 Calcium 9.1 Phosphorus 3.9 Albumin 3.5 Microbiology 12/19/24 12:56 Urine Catheterized - Preliminary Escherichia Coli Providencia stuartii
--- NOTE | 2024-12-25 10:22 | PCPTNOTE ---
The patient treatment was not able to be completed this morning due to patient out of room for dialysis. Will plan to continue treatment per plan of care.
[2024-12-25] MEDS: ACETAMINOPHEN 500 MG TABLET 1000 MG PO ×2 (11:11→20:38)
[2024-12-25] MEDS: EPOETIN ALFA-EPBX 10,000 UNITS/ML VIAL 10000 UNITS IV PUSH (11:53)
--- NOTE | 2024-12-25 13:29 | PM.IMPN ---
Progress Note: A&P Assessment and Plan (1) Dysarthria: Code(s): R47.1 - Dysarthria and anarthria Status: Acute Assessment and Plan: The patient reported experiencing intermittent dysarthria and expressive aphasia before admission. Reports his symptoms completely resolved and then returned acutely at 9:00 p.m.. Discovery of symptoms at 9:10 p.m. Code stroke activated. Patient taken for emergent CT/CTA. Stroke scale completed prior to imaging, scored a total of 6 due to a mild left facial droop, dysarthria, expressive aphasia, and a left lower extremity drift. Patient has no prior knowledge of CVA, however told he has had a previous stroke due to his earlier head CT showing multiple old lacunar infarcts. During the patient's episode of dysarthria/expressive aphasia he had left-sided facial twitching and moderate amplitude muscle spasms to the bilateral upper extremities. Patient remained conscious and no disorientation noted. He was given an additional 5 mg IV of Valium and started on Keppra. Post imaging the patient's dysarthria and expressive aphasia have significantly improved. Head CT showed no acute abnormalities. 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 Total cholesterol 159, LDL 36, HDL 69, [id number] 12/20 Brain MRI 1. Old lacunar infarcts at the bilateral thalami, basal ganglia and internal capsules. No acute intracranial process or abnormal enhancing brain lesions. 2. Extensive periventricular predominant nonspecific white matter T2 hyperintensity consistent with chronic small vessel ischemic disease. PLAN - neurology consulted, appreciate recommendations --HgbA1c did not result, recheck in AM - echo with bubble study 12/19/24 TTE LVEF 55-60%, moderate anterior pericardial effusion - ST/PT/OT evaluated. Standby assist with PT with a walker - patient additionally has new seizure-like activity (sequela of CVA versus alcohol withdrawal induced) started on Keppra - continue atorvastatin, Plavix, aspirin daily (2) Seizure-like activity: Code(s): R56.9 - Unspecified convulsions Status: Acute Assessment and Plan: Seizure-like activity described as shaking of unknown duration witnessed by patient's family on 12/19. No prior history of seizures. Does have history of alcohol abuse with last drink 1 week ago. New onset seizures versus alcohol withdrawal seizures? Patient additionally had witnessed left-sided facial twitching during his evaluation in the emergency department that resolved with IV Valium. Recurrent this evening at 21:10, see note above. - seizure precaution - neurology consulted, brain MRI as above - CIWA score zero. - started Keppra, loading dose of 1500 mg and 500 mg b.i.d. IVPB, changed to PO (3) Alcohol abuse: Code(s): F10.10 - Alcohol abuse, uncomplicated Status: Acute Assessment and Plan: Daily ETOH use: 1/2 pint to 1 pint for the past 10 years Last drink: 1 week prior to admission s/p Thiamine 500mg q8 x3 doses CIWA protocol in place with CIWA score zero Continue Folate. Add back thiamine. (4) ESRD on dialysis: Code(s): N18.6 - End stage renal disease; Z99.2 - Dependence on renal dialysis Status: Acute Assessment and Plan: Patient with ESRD with dialysis Mondays, Wednesdays, Fridays. Last treatment this past Wednesday on 12/18, received full treatment. Nephrology consulted for inpatient dialysis (5) Hypertension: Qualifiers: Hypertension type: secondary to other renal disorders Qualified Code(s): I15.1 - Hypertension secondary to other renal disorders Code(s): I10 - Essential (primary) hypertension Status: Chronic Assessment and Plan: Patient's blood pressure was reviewed on 12/25 Blood pressure remains poorly controlled. Will continue to monitor. Metoprolol advanced (6) Urinary retention: Code(s): R33.9 - Retention of urine, unspecified Status: Chronic Assessment and Plan: Urinary retention previously. Discharged with a rubi catheter Rubi catheter removed 12/20. Bladder scan Q8hr but not required straight cath since Rubi out. Continue home tamsulosin (7) Pericardial effusion: Code(s): I31.39 - Other pericardial effusion (noninflammatory) Status: Acute Assessment and Plan: Noted on echo, LVEF 55-60% Moderate pericardial effusion felt related to poor fluid status HD to improve fluid status. (8) UTI (urinary tract infection): Code(s): N39.0 - Urinary tract infection, site not specified Status: Acute Assessment and Plan: Urine culture grew EColi and Providencia stuartii sensitive to Rocephin Rocephin started and completed a 5 days course. (9) C. difficile diarrhea: Code(s): A04.72 - Enterocolitis due to Clostridium difficile, not specified as recurrent Status: Acute Assessment and Plan: Having loose stools CDiff PCR positive/CDiff Ag and Toxin negative/CDiff GDH positive Dificid started. Will discuss with ID about need to repeat testing Still having loose stools. Plan DVT Prophylaxis: SCDs Code Status: Full code Subjective Date/time seen: 12/25/24 13:29 Interval history: 69yo male with PMH of alcohol abuse, ESRD on HD (M/W/F), anemia in setting of CKD, GERD, and hypertension who presents on 12/19/24 with seizure-like activity. Assuming care. Chart reviewed. Able to sleep some but feels tired today. No n/v. No diarrhea. No CP or SOB. Eating okay. Exam Narrative: AF 98.6 153/99 90 15 100% ra Gen - NARD currently undergoing HD. Chest - lungs clear anteriorly. Right upper chest HD catheter accessed CV - RRR S1/S2 Abd - Soft, NT/ND, Positive BS Ext - No pedal edema Neuro - Alert and appropriate. Dysarthric speech Psych - Nml mood and affect Skin - Warm and dry Objective Data Vital Signs Vital Signs: Vital Signs - 24 hr 12/24/24 14:00 12/24/24 21:03 12/25/24 00:00 Temperature 97.6 F 97.9 F Pulse Rate 78 82 Pulse Rate [Left Radial Palpation] 80 Respiratory Rate 16 16 Blood Pressure 179/85 H 169/88 H 145/77 H Pulse Oximetry 100 98 Oxygen Flow Rate Fraction of Inspired Oxygen 12/25/24 03:56 12/25/24 04:14 12/25/24 08:44 Temperature 97.6 F Pulse Rate 76 Pulse Rate [Left Radial Palpation] 76 Respiratory Rate 16 Blood Pressure 139/87 168/98 H Pulse Oximetry 100 Oxygen Flow Rate 0 Fraction of Inspired Oxygen 0 12/25/24 08:44 12/25/24 08:52 12/25/24 09:00 Temperature 98.6 F Pulse Rate 85 82 86 Pulse Rate [Left Radial Palpation] Respiratory Rate 15 Blood Pressure 184/100 H 171/98 H 172/95 H Pulse Oximetry 100 Oxygen Flow Rate Fraction of Inspired Oxygen 12/25/24 09:15 12/25/24 09:30 12/25/24 09:45 Temperature Pulse Rate 88 85 88 Pulse Rate [Left Radial Palpation] Respiratory Rate Blood Pressure 165/87 H 159/91 H 157/94 H Pulse Oximetry Oxygen Flow Rate Fraction of Inspired Oxygen 12/25/24 10:00 12/25/24 10:15 12/25/24 10:30 Temperature Pulse Rate 97 93 90 Pulse Rate [Left Radial Palpation] Respiratory Rate Blood Pressure 170/101 H 158/86 H 158/92 H Pulse Oximetry Oxygen Flow Rate Fraction of Inspired Oxygen 12/25/24 10:45 12/25/24 11:00 12/25/24 11:15 Temperature Pulse Rate 91 91 94 Pulse Rate [Left Radial Palpation] Respiratory Rate Blood Pressure 163/100 H 151/96 H 163/104 H Pulse Oximetry Oxygen Flow Rate Fraction of Inspired Oxygen 12/25/24 11:30 12/25/24 11:45 12/25/24 12:00 Temperature Pulse Rate 92 89 90 Pulse Rate [Left Radial Palpation] Respiratory Rate Blood Pressure 162/95 H 167/106 H 153/99 H Pulse Oximetry Oxygen Flow Rate Fraction of Inspired Oxygen Intake/Output Intake/Output: Intake & Output 12/22/24 12/23/24 12/24/24 12/25/24 23:59 23:59 23:59 23:59 Intake Total 1310 1180 1340 590 Output Total 2480 0 0 Balance -1170 1180 1340 590 Meds/Results Medications: Active Medications Generic Name Dose Route Start Last Admin Trade Name Freq PRN Reason Stop Dose Admin Acetaminophen 1,000 mg 12/20/24 10:45 12/25/24 11:11 Acetaminophen 500 Mg Tablet PO 1,000 mg Q6H PRN Administration Mild Pain (1-3) or Fever Amlodipine Besylate 10 mg 12/20/24 09:00 12/24/24 08:24 Amlodipine Besylate 10 Mg Tablet PO 10 mg DAILY ANDER Administration Aspirin 81 mg 12/20/24 09:00 12/24/24 08:24 Aspirin 81 Mg Enteric Tablet PO 81 mg QAM ANDER Administration Atorvastatin Calcium 40 mg 12/20/24 09:00 12/24/24 08:24 Atorvastatin 40 Mg Tablet PO 40 mg DAILY ANDER Administration Chlordiazepoxide HCl 25 mg 10/21/25 15:10 12/21/24 05:04 Chlordiazepoxide (*Crx) 25 Mg Capsule PO 25 mg Q6H PRN Administration Withdrawal Clopidogrel Bisulfate 75 mg 12/20/24 09:00 12/24/24 08:24 Clopidogrel Bisulfate 75 Mg Tablet PO 75 mg QAM ANDER Administration Diazepam 5 - 10 mg 12/19/24 13:03 12/19/24 13:11 Diazepam Inj (*Crx) 10 Mg/2 Ml Syringe IV PUSH 5 mg Q5M PRN Administration CIWA > 15 Epoetin Rodney-epbx 10,000 units 12/25/24 18:00 12/25/24 11:53 Epoetin Rodney-Epbx 10,000 Units/Ml Vial IV PUSH 12/25/24 18:01 10,000 units ONCE ONE Administration Famotidine 20 mg 12/20/24 09:00 12/24/24 08:23 Famotidine 20 Mg Tablet PO 20 mg DAILY ANDER Administration Fidaxomicin 200 mg 12/24/24 21:20 12/24/24 21:52 Fidaxomicin 200 Mg Tablet PO 01/03/25 21:19 200 mg Q12HR ANDER Administration Finasteride 5 mg 12/20/24 09:00 12/24/24 08:24 Finasteride 5 Mg Tablet PO 5 mg DAILY ANDER Administration Folic Acid 1 mg 12/20/24 09:00 12/24/24 08:23 Folic Acid 1 Mg Tablet PO 1 mg DAILY ANDER Administration Hydralazine HCl 10 mg 12/19/24 15:13 12/19/24 22:35 Hydralazine Hcl 20 Mg/Ml Vial IV PUSH 10 mg Q8H PRN Administration Blood Pressure - High Albumin Human 50 mls @ 999 mls/hr 12/20/24 06:26 Albutein IVPB 01/19/25 06:25 Q10M PRN HYPOTENSION Ceftriaxone Sodium 2 gm/ 100 mls @ 200 mls/hr 12/21/24 11:00 12/24/24 11:06 Sodium Chloride IVPB 12/25/24 19:00 200 mls/hr Q24H ANDER Administration Levetiracetam 500 mg 12/20/24 21:00 12/24/24 20:41 Levetiracetam 500 Mg Tablet PO 500 mg Q12HR ANDER Administration Metoprolol Tartrate 50 mg 12/25/24 21:00 Metoprolol Tartrate 50 Mg Tab PO Q12HR ANDER Ondansetron HCl 4 mg 12/19/24 13:03 12/19/24 13:11 Ondansetron Inj 4 Mg/2 Ml Vial IV PUSH 4 mg Q6H PRN Administration Nausea And Vomiting Pantoprazole Sodium 40 mg 12/20/24 09:00 12/24/24 08:24 Pantoprazole 40 Mg Tablet PO 40 mg DAILY ANDER Administration Tamsulosin HCl 0.8 mg 12/20/24 21:00 12/24/24 20:40 Tamsulosin Hcl 0.4 Mg Capsule PO 0.8 mg HS ANDER Administration Radiology Results: ITS Impressions Head CT 12/19/24 21:36 IMPRESSION: No acute intracranial hemorrhage or extra axial fluid collections. Chronic white matter microangiopathic changes. There is a chronic lacunar infarct in the left basal ganglia. All CT scans at this facility are performed using low dose modulation techniques as appropriate to perform exam including the following: automated exposure control; use of iterative reconstruction technique; adjustment of the mA and/or kV according to patient size (this includes techniques or standardized protocols for targeted exams where dose is matched to indication/reason for exam). 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 Correlate clinically. There is marked atherosclerotic vascular calcification of the intracranial carotid artery causing moderate stenosis. No large vessel occlusion is seen. Modified Barium Swallow 12/20/24 13:33 IMPRESSION: Mild oropharyngeal dysphagia with transient trace/flash laryngeal penetration without aspiration. Please correlate with speech pathologist findings and specific feeding recommendations. Brain MRI 12/20/24 14:12 IMPRESSION: 1. Old lacunar infarcts at the bilateral thalami, basal ganglia and internal capsules. No acute intracranial process or abnormal enhancing brain lesions. 2. Extensive periventricular predominant nonspecific white matter T2 hyperintensity consistent with chronic small vessel ischemic disease. Labs Labs: Laboratory Results - last 24 hr 12/24/24 12/25/24 18:23 04:32 WBC 11.8 H RBC 2.63 L Hgb 8.2 L Hct 26.3 L MCV 100.0 MCH 31.2 MCHC 31.2 L RDW 18.4 H Plt Count 258 MPV 10.6 H Sodium 135 L Potassium 4.3 Chloride 101 Carbon Dioxide 25 Anion Gap 9 BUN 38 H D Creatinine 10.10 H Estim Creat Clear Calc 6 Estimated GFR 5 L Glucose 93 Hemoglobin A1c Cancelled Calcium 9.1 Phosphorus 3.9 Albumin 3.5 C. difficile (PCR) Positive A* C. difficile Ag & Toxin Negative C. difficile GDH Ag Positive A
[2024-12-25] MEDS: FIDAXOMICIN 200 MG TABLET PO ×2 (13:56→20:38)
[2024-12-25] MEDS: cefTRIAXone 2 GM in SODIUM CHLORIDE 0.9% IV 100 ML 200 ML IVPB (13:56)
[2024-12-25] MEDS: FINASTERIDE 5 MG TABLET PO (13:57)
[2024-12-25] MEDS: ATORVASTATIN 40 MG TABLET PO (13:57)
[2024-12-25] MEDS: FAMOTIDINE 20 MG TABLET PO (13:57)
[2024-12-25] MEDS: FOLIC ACID 1 MG TABLET PO (13:57)
[2024-12-25] MEDS: CLOPIDOGREL BISULFATE 75 MG TABLET PO (13:57)
[2024-12-25] MEDS: PANTOPRAZOLE 40 MG TABLET PO (13:57)
[2024-12-25] MEDS: ASPIRIN 81 MG ENTERIC TABLET PO (13:57)
[2024-12-25] MEDS: SODIUM CHLORIDE 0.9% IV 1,000 ML 999 ML IV CONT (18:48)
[2024-12-25 20:21] LABS: MRSA (PCR) NOT DETECTED (NOT DETECTE)
[2024-12-25] MEDS: TAMSULOSIN HCL 0.4 MG CAPSULE PO (20:38)
[2024-12-25] MEDS: METOPROLOL TARTRATE 50 MG TAB PO (20:38)
[2024-12-26 05:20] VITALS: BP 161/78; PULSE 78; RESP 16; TEMP 36.8; O2SAT 98
[2024-12-26] MEDS: ATORVASTATIN 40 MG TABLET PO (08:21)
[2024-12-26] MEDS: PANTOPRAZOLE 40 MG TABLET PO (08:21)
[2024-12-26] MEDS: FOLIC ACID 1 MG TABLET PO (08:22)
[2024-12-26] MEDS: CLOPIDOGREL BISULFATE 75 MG TABLET PO (08:22)
[2024-12-26] MEDS: THIAMINE HCL 100 MG TABLET PO (08:22)
[2024-12-26] MEDS: ASPIRIN 81 MG ENTERIC TABLET PO (08:22)
[2024-12-26] MEDS: FIDAXOMICIN 200 MG TABLET PO (08:22)
[2024-12-26] MEDS: FAMOTIDINE 20 MG TABLET PO (08:22)
[2024-12-26] MEDS: METOPROLOL TARTRATE 50 MG TAB PO (08:22)
[2024-12-26] MEDS: FINASTERIDE 5 MG TABLET PO (08:22)
--- NOTE | 2024-12-26 11:03 | P.PNNP_ITS ---
Progress Note: A&P Assessment and Plan (1) End stage renal disease: Code(s): N18.6 - End stage renal disease Status: Chronic Assessment and Plan: * HD tomorrow * continue outpatient schedule of Wednesday/Wednesdays/Wednesday while hospitalized * follow electrolytes, volume status, and clearance * outpatient dialysis clinic = [facility] * primary recreation worker = Dr. Ralf Deluca (2) Dysarthria: Code(s): R47.1 - Dysarthria and anarthria Status: Acute Assessment and Plan: * as reported before admission * recurred during while in ER * associated with: * mild left facial droop * expressive aphasia * left lower extremity drift * head CT negative * Head/neck CTA noted: * irregularity within the right vertebral artery at the level of C5-C6 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 * marked atherosclerotic vascular calcification of the intracranial carotid artery causing moderate stenosis * no LVO * Brain MRI (12/20): * old lacunar infarcts at the bilateral thalami, basal ganglia and internal capsules * no acute intracranial process or abnormal enhancing brain lesions * extensive periventricular predominant nonspecific white matter T2 hyperintensity consistent with chronic small vessel ischemic disease * clinical improvement in symptoms post-imaging * Neurology following * seems stable * ST/PT/OT following * remains on ASA/plavix/statin (3) Seizure-like activity: Code(s): R56.9 - Unspecified convulsions Status: Acute Assessment and Plan: * suggested by shaking per patient's family * during episode of dysarthria/expressive aphasia in ER, noted left-sided facial twitching and moderate amplitude muscle spasms to the bilateral upper extremities * resolved with IV valium * new onset seizure versus alcohol withdrawal seizure?? * Neurology following * no further episodes noted * on Keppra (4) UTI (urinary tract infection): Code(s): N39.0 - Urinary tract infection, site not specified Status: Acute Assessment and Plan: * admission UA suggestive * urine culture with Providencia stuartii and E. coli * completed course of antibiotics (5) C. difficile colitis: Code(s): A04.72 - Enterocolitis due to Clostridium difficile, not specified as recurrent Status: Acute Assessment and Plan: * noted positive testing (on 12/24) * on Dificid (6) Anemia: Code(s): D64.9 - Anemia, unspecified Status: Chronic Assessment and Plan: * due to ESRD * Epogen with HD * follow trend of H/H (7) Hypertension: Qualifiers: Hypertension type: secondary to other renal disorders Qualified Code(s): I15.1 - Hypertension secondary to other renal disorders Code(s): I10 - Essential (primary) hypertension Status: Chronic Assessment and Plan: * resumed on home medications * still fluctuating * metoprolol dose just increased * follow trend of hemodynamics - (8) Urinary retention: Code(s): R33.9 - Retention of urine, unspecified Status: Chronic Assessment and Plan: * known history * previously had a rubi catheter * follow bladder scans * on flomax and finasteride (9) Alcohol abuse: Code(s): F10.10 - Alcohol abuse, uncomplicated Status: Acute Assessment and Plan: * known history * [facility] protocol in place * on thiamine and folate Not opposed to discharge from renal perspective if otherwise medically stable. Will continue to follow. L Subjective Date/time seen: 12/26/24 11:03 Interval history: Follow-up for end stage renal disease on hemodialysis. Tolerated dialysis treatment yesterday without any issues or problems; sitting up in chair at the time of my visit with no acute complaints voiced; mentation seems stable; no other events overnight or earlier this morning. Exam 2 Narrative: General: elderly male in NAD Heart: normal S1 and S2; no rub Lungs: clear to auscultation Abdomen: soft, nontender, nondistended, positive bowel sounds Extremities: no cyanosis or clubbing; no edema Skin: no nodules Objective Data Vital Signs Vital Signs: Vital Signs Temp Pulse Resp BP Pulse Ox O2 Del Method 12/26/24 08:20 Room Air 12/26/24 05:20 98.2 F 78 16 161/78 H 98 12/25/24 22:00 98.0 F 73 16 146/70 H 97 12/25/24 14:00 98.4 F 87 184/97 H 100 12/25/24 12:36 97.8 F 85 16 165/98 H 100 12/25/24 12:27 89 166/97 H 12/25/24 12:15 89 157/97 H 12/25/24 12:00 90 153/99 H Intake/Output Intake/Output: Intake & Output 12/23/24 12/24/24 12/25/24 12/26/24 23:59 23:59 23:59 23:59 Intake Total 1180 1440 1270 370 Output Total 0 0 1999 Balance 1180 1440 -730 370 Meds/Results Medications: Active Medications Generic Name Dose Route Start Last Admin Trade Name Freq PRN Reason Stop Dose Admin Acetaminophen 1,000 mg 12/20/24 10:45 12/25/24 20:38 Acetaminophen 500 Mg Tablet PO 1,000 mg Q6H PRN Administration Mild Pain (1-3) or Fever Amlodipine Besylate 10 mg 12/20/24 09:00 12/26/24 08:21 Amlodipine Besylate 10 Mg Tablet PO 10 mg DAILY ANDER Administration Aspirin 81 mg 12/20/24 09:00 12/26/24 08:22 Aspirin 81 Mg Enteric Tablet PO 81 mg QAM ANDER Administration Atorvastatin Calcium 40 mg 12/20/24 09:00 12/26/24 08:21 Atorvastatin 40 Mg Tablet PO 40 mg DAILY ANDER Administration Chlordiazepoxide HCl 25 mg 12/19/24 15:10 12/21/24 05:04 Chlordiazepoxide (*Crx) 25 Mg Capsule PO 25 mg Q6H PRN Administration Withdrawal Clopidogrel Bisulfate 75 mg 12/20/24 09:00 12/26/24 08:22 Clopidogrel Bisulfate 75 Mg Tablet PO 75 mg QAM ANDER Administration Diazepam 5 - 10 mg 12/19/24 13:03 12/19/24 13:11 Diazepam Inj (*Crx) 10 Mg/2 Ml Syringe IV PUSH 5 mg Q5M PRN Administration CIWA > 15 Famotidine 20 mg 12/20/24 09:00 12/26/24 08:22 Famotidine 20 Mg Tablet PO 20 mg DAILY ANDER Administration Fidaxomicin 200 mg 12/24/24 21:20 12/26/24 08:22 Fidaxomicin 200 Mg Tablet PO 01/03/25 21:19 200 mg Q12HR ANDER Administration Finasteride 5 mg 12/20/24 09:00 12/26/24 08:22 Finasteride 5 Mg Tablet PO 5 mg DAILY NADER Administration Folic Acid 1 mg 12/20/24 09:00 12/26/24 08:22 Folic Acid 1 Mg Tablet PO 1 mg DAILY ANDER Administration Hydralazine HCl 10 mg 12/19/24 15:13 12/19/24 22:35 Hydralazine Hcl 20 Mg/Ml Vial IV PUSH 10 mg Q8H PRN Administration Blood Pressure - High Albumin Human 50 mls @ 999 mls/hr 12/20/24 06:26 Albutein IVPB 01/19/25 06:25 Q10M PRN HYPOTENSION Levetiracetam 500 mg 12/20/24 21:00 12/26/24 08:22 Levetiracetam 500 Mg Tablet PO 500 mg Q12HR ANDER Administration Metoprolol Tartrate 50 mg 12/25/24 21:00 12/26/24 08:22 Metoprolol Tartrate 50 Mg Tab PO 50 mg Q12HR ANDER Administration Ondansetron HCl 4 mg 12/19/24 13:03 12/19/24 13:11 Ondansetron Inj 4 Mg/2 Ml Vial IV PUSH 4 mg Q6H PRN Administration Nausea And Vomiting Pantoprazole Sodium 40 mg 12/20/24 09:00 12/26/24 08:21 Pantoprazole 40 Mg Tablet PO 40 mg DAILY ANDER Administration Tamsulosin HCl 0.4 mg 12/25/24 21:00 12/25/24 20:38 Tamsulosin Hcl 0.4 Mg Capsule PO 0.4 mg HS ANDER Administration Thiamine HCl 100 mg 12/26/24 09:00 12/26/24 08:22 Thiamine Hcl 100 Mg Tablet PO 100 mg QAM ANDER Administration Radiology Results: ITS Impressions Head CT 12/19/24 21:36 IMPRESSION: No acute intracranial hemorrhage or extra axial fluid collections. Chronic white matter microangiopathic changes. There is a chronic lacunar infarct in the left basal ganglia. All CT scans at this facility are performed using low dose modulation techniques as appropriate to perform exam including the following: automated exposure control; use of iterative reconstruction technique; adjustment of the mA and/or kV according to patient size (this includes techniques or standardized protocols for targeted exams where dose is matched to indication/reason for exam). 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 Correlate clinically. There is marked atherosclerotic vascular calcification of the intracranial carotid artery causing moderate stenosis. No large vessel occlusion is seen. Modified Barium Swallow 12/20/24 13:33 IMPRESSION: Mild oropharyngeal dysphagia with transient trace/flash laryngeal penetration without aspiration. Please correlate with speech pathologist findings and specific feeding recommendations. Brain MRI 12/20/24 14:12 IMPRESSION: 1. Old lacunar infarcts at the bilateral thalami, basal ganglia and internal capsules. No acute intracranial process or abnormal enhancing brain lesions. 2. Extensive periventricular predominant nonspecific white matter T2 hyperintensity consistent with chronic small vessel ischemic disease. Labs Labs: Laboratory Tests 12/25/24 04:32 12/25/24 04:32 Microbiology 12/19/24 12:56 Urine Catheterized - Preliminary Escherichia Coli Providencia stuartii
--- NOTE | 2024-12-26 12:57 | P.DS_ITS ---
DS: Admitting Diagnosis Discharge Date 12/26/24 Admitting Diagnosis Seizure-like activity DS: Discharge Diagnosis Discharge Diagnosis (1) Dysarthria: Code(s): R47.1 - Dysarthria and anarthria Status: Acute (2) Seizure-like activity: Code(s): R56.9 - Unspecified convulsions Status: Acute (3) Alcohol abuse: Code(s): F10.10 - Alcohol abuse, uncomplicated Status: Acute (4) ESRD on dialysis: Code(s): N18.6 - End stage renal disease; Z99.2 - Dependence on renal dialysis Status: Acute (5) Hypertension: Qualifiers: Hypertension type: secondary to other renal disorders Qualified Cod e(s): I15.1 - Hypertension secondary to other renal disorders Code(s): I10 - Essential (primary) hypertension Status: Chronic (6) Urinary retention: Code(s): R33.9 - Retention of urine, unspecified Status: Chronic (7) Pericardial effusion: Code(s): I31.39 - Other pericardial effusion (noninflammatory) Status: Acute (8) UTI (urinary tract infection): Code(s): N39.0 - Urinary tract infection, site not specified Status: Acute (9) C. difficile diarrhea: Code(s): A04.72 - Enterocolitis due to Clostridium difficile, not specified as recurrent Status: Acute DS: Summary Hospital Course Reason for hospitalization: 69yo male with PMH of alcohol abuse, ESRD on HD (M/W/F), anemia in setting of CKD, GERD, and hypertension who presents on 12/19/24 with seizure-like activity. Please see H&P for details. Hospital Course: Patient admitted for seizure-like activity described as shaking of unknown duration witnessed by patient's family on 12/19. No prior history of seizures. Does have history of alcohol abuse with last drink 1 week ago. New onset seizures versus alcohol withdrawal seizures? Patient additionally had witnessed left-sided facial twitching during his evaluation in the emergency department that resolved with IV Valium. Seizure precautions started. Neurology consulted. After admission, the patient had return of symptoms the evening on 12/19. Code stroke activated. Stroke scale score was 6. Repeat imaging showing head CT showed no acute abnormalities. 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 He was started on Keppra after a loading dose of 1500 mg. Total cholesterol 159, LDL 36, HDL 69, [id number]. Brain MRI showing old lacunar infarcts at the bilateral thalami, basal ganglia and internal capsules. No acute intracranial process or abnormal enhancing brain lesions. He did have extensive periventricular predominant nonspecific white matter T2 hyperintensity consistent with chronic small vessel ischemic disease. Echo with bubble study showed possible positive bubble study (patient would not hold still for bubble study) with delayed right to left shunt suggesting an extracardiac shunt. EF 60-65%, no regional wall motion abnormalities. No pericardial effusion (Prior Echo did show pericardial effusion but not noted this admission). ST/PT/OT evaluated. Standby assist with PT with a walker. We continued atorvastatin, Plavix, aspirin daily. He uses ETOH daily. s/p Thiamine 500mg q8 x3 doses. CIWA protocol started but CIWA score remained low. We continued Folate and thiamine. Patient with ESRD with dialysis Mondays, Wednesdays, Fridays. His outpatient dialysis clinic is [facility] and his primary extrusion die corrector is Dr. Deluca. We continued dialysis here. Patient's blood pressure was monitored and remained poorly controlled. Metoprolol advanced. Patient has a hx of urinary retention previously and had been discharged with a rubi catheter. Voiding trial here with Rubi catheter removed 12/20. Bladder scan Q8hr but did not require straight cath since Rubi out. We continued home tamsulosin. Urine culture grew EColi and Providencia stuartii sensitive to Rocephin. Rocephin started and completed a 5 days course. He was having loose stools. CDiff PCR positive/CDiff Ag and Toxin negative/CDiff GDH positive to suggest possible false positive but he was having diarrhea that improved with Dificid. Stil having frequent stools but only small volumes. He overall did well and was able to be discharged home on 12/26/24. Discharge instructions discussed including medication side effects. All questions answered. Status at Discharge Cognitive/behavioral status at discharge: stable Time Spent with Patient Time attestation: Total time spent providing and/or coordinating discharge services: 36 minutes Exam Narrative: AF 98.2 161/78 78 16 98%ra Gen - NARD sitting up feeding himself lunch Chest - lungs clear anteriorly. Right upper chest HD catheter CV - RRR S1/S2 Abd - Soft, NT/ND, Positive BS Ext - No pedal edema Psych - Nml mood and affect Skin - Warm and dry DS: Data Data Completed and Pending Labs on day of discharge: Labs from last 24 hours 12/25/24 19:06 Nasal MRSA (PCR) Not detected Preliminary micro results at discharge 12/19/24 12:56 - Preliminary Urine Catheterized Escherichia Coli Providencia stuartii Discharge Plan Discharge Attending physician on discharge: García Madden Consulting providers: Allison Gandhi; Omar Arguello; Robel Otero Discharging Clinician: García Madden Anticipated Discharge Date/Time: 12/26/24 13:50 Patient Disposition: Home Activity: as tolerated Diet: renal Discharge Instructions: Primary care office scheduled appointment 12-27-24 at 0930 AM. Transport will arrive to collect the patient at 0830AM. Check blood pressure 1 to 2 times a day. Record and bring into your doctor for review. Call your doctor if your blood pressure is greater than 180/110. Please complete your antibiotic course even if you are starting to feel well. Take precautions to avoid falls. Rise slowly from a lying or sitting position. Pause before standing or walking. Continue dialysis [id number] at [facility] Stop all alcohol use. Contact your doctor or call 911 and come to the Emergency Room if you have seizure-like activity or other worrisome symptoms. Follow-up with your primary care provider in 1-2 weeks. Please call for appointment. Follow-up with Neurology in 3-4 weeks to follow up for possible seizures and possible abnormality to one of the blood vessels in the neck. Please call for appointment. Follow-up with Cardiology in 3-4 weeks for possible abnormal connection noted by the heart ultrasound. Please call for appointment. Follow-up with Nephrology at next scheduled visit. Thank you for using [facility] for your health care needs. Patient Instructions: Antibiotic Form, How to Stop Smoking (DC) Patient Language: Malay Stand Alone Forms: General Discharge Information Follow-up/Referrals: Ralf Deluca MD [Physician, Nephrology] - Call for Appointment Marvin Gastelum MD [Physician, Cardiology] - Call for Appointment Robel Otero MD [Physician, Neurology] - Call for Appointment PHYSICIAN NOT ON STAFF,NONSTAFF [Primary Care Provider] - Call for Appointment Discharge Medications: New folic acid 1 mg Tablet 1 mg PO DAILY Qty: 30 2RF clopidogrel 75 mg Tablet 75 mg PO QAM Qty: 30 2RF metoprolol tartrate 50 mg Tablet 50 mg PO Q12HR Qty: 60 2RF aspirin 81 mg Tablet,Delayed Release (Dr/Ec) 81 mg PO QAM Qty: 30 2RF atorvastatin 40 mg Tablet 40 mg PO DAILY Qty: 30 2RF levetiracetam [Keppra] 500 mg Tablet 500 mg PO Q12HR Qty: 60 2RF fidaxomicin [Dificid] 200 mg Tablet 200 mg PO Q12HR Qty: 16 0RF thiamine HCl (vitamin B1) [Vitamin B-1] 100 mg Tablet 100 mg PO QAM Qty: 30 2RF Continued amlodipine 10 mg tablet 10 mg PO DAILY famotidine 20 mg tablet 20 mg PO DAILY tamsulosin 0.4 mg capsule 0.4 mg PO HS pantoprazole 40 mg tablet,delayed release (DR/EC) 40 mg PO DAILY finasteride 5 mg tablet 5 mg PO DAILY acetaminophen 500 mg capsule 500 mg PO Q6H PRN (Reason: pain) Discontinued tramadol 50 mg tablet 50 mg PO BID PRN (Reason: pain) metoprolol tartrate 25 mg tablet 25 mg PO BID cephalexin 500 mg capsule 500 mg PO Q6H 7 Days Qty: 28 0RF Date of admission: 12/20/24 13:43 Primary Care Provider: PHYSICIAN NOT ON STAFF,NONSTAFF Admitting Provider: Vel Carcamo Attending physician on admission: Vel Carcamo Condition: Stable Hospitalist MIPS Heart Failure (Exclusion) Patient has history of Heart Transplant or Left Ventricular Assistive Device?: No IF YES, STOP HERE Heart Failure (Qualifier) Patient has current or prior documentation of LVEF less than or equal to 40%, or mod/servere depressed LVSF?: No IF NO, STOP HERE
[2024-12-26 14:00] VITALS: BP 162/88; PULSE 81; RESP 16; TEMP 36.7; O2SAT 100
--- NOTE | 2024-12-26 15:41 | PCPTNOTE ---
Patient see this afternoon to participate in stair climbing intervention for discharge planning. Patient required safety cues and CGA assist to complete 6 steps up and down. Recommended patient have assist when attempting steps at home or stay on the main level for safety. Patient voices understanding but states he will have no problems with stairs at home. Time spent with patient 7 min.
== END 2024-12-26 16:00 | disposition home or self-care (01) | DRG 100 ==
LOC: ANHED 12:54 → ANHIMU 17:02 → ANH2MED 12-21 21:39
PROVIDERS: Emergency Medicine; Internal Medicine Nephrology; Nurse Practitioner Acute Care; Student in an Organized Health Care Education/Training Program; Admitting Provider Internal Medicine; Emergency Provider Student in an Organized Health Care Education/Training Program; Visit Provider Internal Medicine
DX: R56.9 Unspecified convulsions (principal); N18.6 End stage renal disease; F10.239 Alcohol dependence with withdrawal, unspecified; I12.0 Hypertensive chronic kidney disease with stage 5 chronic kidney disease or end stage renal disease; I31.39 Other pericardial effusion (noninflammatory); R47.01 Aphasia; N39.0 Urinary tract infection, site not specified; A04.72 Enterocolitis due to Clostridium difficile, not specified as recurrent; B96.89 Other specified bacterial agents as the cause of diseases classified elsewhere; B96.20 Unspecified Escherichia coli [E. coli] as the cause of diseases classified elsewhere; R29.810 Facial weakness; R47.1 Dysarthria and anarthria; R47.81 Slurred speech; R20.0 Anesthesia of skin; D63.1 Anemia in chronic kidney disease; K21.9 Gastro-esophageal reflux disease without esophagitis; R33.9 Retention of urine, unspecified; F17.210 Nicotine dependence, cigarettes, uncomplicated; Z99.2 Dependence on renal dialysis
CPT/HCPCS: 36415; 70450; 70496; 70498; 70553; 74230; 80048; 80053; 80061; 80069; 81001; 82077; 82607; 82746; 82948; 83036; 83735; 84100; 84425; 85025; 85027; 85610; 85730; 86706; 87086; 87186; 87324; 87340; 87449; 87493; 87641; 92507; 92523; 92526; 92610; 92611; 93005; 93306; 96374; 96375; 97110; 97116; 97162; 97166; 97530; 97535; 99285; A9270; A9577; G0257; G0378; J0360; J0696; J1644; J1953; J2405; J3360; J3411; J3475; J7030; Q5105; Q9967

== ENCOUNTER 2025-01-06 08:52 | Emergency (ER) | payer MEDICARE, MEDICAID, SELFPAY ==
[2025-01-06] VITALS (34 sets, daily range): BP systolic 101–130; BP diastolic 58–85; PULSE 73; RESP 18; TEMP 36.4; O2SAT 98–100
--- NOTE | ~2025-01-06 | XR_ITS ---
Examination: XR elbow LT min 3V Clinical History: trauma Comparison: None Technique: 3 views left elbow Findings/impression: 1. Nondisplaced transverse fracture through distal humeral epicondyles bilaterally. 2. No additional fracture identified. 3. Joint effusion. 4. No dislocation. Reviewed, dictated and finalized at location R. STRUCTURE BUILDER AND SERVICER
[2025-01-06] MEDS: MORPHINE SULFATE (*CRX) 4 MG/ML INJ IV PUSH (09:02)
--- OUTSIDE RECORDS SUMMARY | 2025-01-06 09:19 | XMS_ITS | Clinical Summary ---
Author Organization [facility] Address [address] [place] [address] Care Team Providers Care Grain Broker And Market Operator Name Role Phone Unavailable Primary Care Provider Unavailabl e Source Comments [facility],non-owned Affiliates and Associated Physician Practices is amultiple site organization consisting of ambulatory clinics and hospital sitesin [place], [place], [place] and [place]. This disclosure is being madepursuant to the Care Everywhere program and may not contain all information available regarding this patient. Last updated 17.[facility] [employer] Allergies Active Allergy Reactions Criticality Noted Date [...] 45-75) - COL ON CA SCREENING [address] CT COLONOGRAPHY - COLON [...] CALENDAR YEAR 2024 COVID-19 VACCINE (2 - 2024-2 6 season) 2024 01/10/2022 INFLUENZA VACCINE (#1) 2024 3, 12/21/2022, 01/10/2022 Respiratory Syncytial Virus (RSV) Vaccine [...] A/C/Y/W VACCINE Aged Out No longer eligible b ased on patient's age to complete this topic Insurance MEDICARE MEDICAID - [facility] Address: [address] [address] [place] [address] [employer] MED[employer]ARE ADV
--- OUTSIDE RECORDS SUMMARY | 2025-01-06 09:19 | XMS_ITS | Data Portability ---
Author Organization [place] - [facility], [facility] PIECE GOODS PACKER Address [address] [place] [address] [address] [place] [address] Care Team Providers Care Finisher Special Stocks Name Role Phone JACK NOVA Primary Care Provider Assessment No assessment recorded. Plan of Treatment Reminders Order Date Submit Date Provider Last Modified By Organization Details Last Modified Time Details Appointments TELEHEALT H_FOLLOW UP 2024 12:20P Jarrett Velasco MD Not available Not available Not available Lab None recorded. Referral cardiac rehabilit ation provider referral - Initiate monitored exercise program per outpatien t CR policies and procedure s. 2023 024 Not available 09/13/2024 11:52:54 Procedures remote physiolog ic monitorin g (PROC) - Jodange Device enrollmen t for Blood pressure cuff, Scale, & Pulse oximetry -- PLEASE INQUIRE IF PATIENT WILL NEED REGULAR SIZE CUFF OR LARGE CUFF Patient consents to remote patient monitorin g and agrees to [facility]. Please order device and schedule onboardin g visit. 2023 024 DOUGLAS [facility] [place], [address], [place], [address], 10/19/2023 15:28:25 rhythm ECG, 1-3 leads; with interpret ation and report (PROC) 2023 024 Not available 10/19/2023 17:15:52 Surgeries None recorded. Imaging US, echocardi ogram, transthor acic, follow-up /limited 2023 024 [email or web address] [facility], [address], [place], [address], 10/21/2023 13:02:29 Medication Orders None recorded. Patient TargetsNo targets recorded. Patient Instructions Encounter Date Encounter Id Patient Instructions Last Modified By Organization Details Last Modified Time 10/19/2023 [id number] high blood pressure: care instructions Not available [...] (PROC ) No observ ation record ed. [facility] [address], [place], [address], 10/19/2023 16:51:42 10/19/19 24 US, echoc ardio gram, trans thora cic, limit ed No observ ation record ed. [facility] [address], [place], [address], 10/19/2023 16:52:09 10/19/19 24 10/19/2023 US, echoc ardio gram, trans thora cic, follo w-up/ limit ed No observ ation record ed[facility] [place] [address] [address], [place], [address], 10/20/2023 15:46:50 Result Notes None recorded. Problems Name Problem SNOMED Code Status Onset Date Resolution Date Notes Provider Name and Address Organization Details Recorded Time Palpitations 68478581 Active 2023 Jonathan Velasco MD [address] [facility] [address], [place], [address], [place] [facility] 4 13:47:58 Essential hypertension 59345125 Active 2023 Jonathan Velasco MD [address] [facility] [address], [place], [address], [place] [facility] 13:48:17 Smoker 40246646 Active 2023 Jonathan Velasco MD [address] [facility] [address], [place], [address], [place] [facility] 13:48:56 Multiple premature ventricular complexes 441497489 Active 2023 Jonathan Velasco MD [address] [facility] [address], [place], [address], [place] [facility] 13:55:46 Problem Notes Documentation Provider Name [...] during the procedure inga carpenter, [place] - [facility] 10/23/2023 14:47:52 Medical Equipment None Reported. Medications Name Sig Start Date Stop Date Status Note LastModified by Organization Details LastModified Time atorvastatin 40 mg tablet TAKE 1 TABLET BY MOUTH DAILY active Not Available Not Available Not Available levetiraceta m 500 mg tablet TAKE 1 TABLET BY MOUTH EVERY 12 HOURS active Not Available Not Available No t Available hydrocodone 5 mg-acetamino phen 325 mg tablet TAKE 1 TABLET BY MOUTH EVERY 4 HOURS NEEDED FOR ACUTE PAIN active Not Available Not Available N ot Available clopidogrel 75 mg tablet TAKE 1 TABLET BY MOUTH EVERY MORNING active Not Available Not Available No t Available levofloxacin 250 mg tablet active Not Available Not Available Not Available aspirin 81 mg tablet,delay ed release TAKE 1 TABLET BY MOUTH EVERY MORNING active Not Available Not Available No t Available tramadol 50 mg tablet TAKE 1 [...] capsule TAKE 1 CAPSULE BY MOUTH EVERY 6 HOURS FOR 7 DAYS active Not Available Not Available No t Available pantoprazole 40 mg tablet,delay ed release active Not Available Not Available N ot Available metoprolol tartrate 50 mg tablet TAKE 1 TABLET BY MOUTH EVERY 12 HOURS active Not Available Not Available No t Available folic acid 1 mg tablet TAKE 1 TABLET BY MOUTH EVERY DAY active Not Available Not Available No t [...] Not Available Not Available N ot Available Vitamin B-1 (mononitrate ) 100 mg tablet TAKE 1 TABLET BY MOUTH EVERY MORNING active Not Available Not Available No t Available Dificid 200 mg tablet TAKE 1 TABLET BY MOUTH EVERY 12 HOURS active Not Available Not Available No t Available Vitals Date Recorded Body weight Oxygen saturation Oxygen saturation in Arterial blood by Pulse oximetry Systolic And Diastolic Provider Name and Address Organization Details Last Updated DateTime 10/19/2023 41563.86 g 99 % 99 % 143/97 mm[Hg] inga lopez [facility] 4 13:12:57 Social History None recorded. Functional Status None recorded. Mental Status None recorded. Family History Nothing Reported. Medical History No medical history recorded. Past Encounters Encounter ID Performer Location Encounter Start Date Encounter Closed Date Diagnosis/Indication Diagnosis SNOMED-CT Code Diagnosis ICD10 Code Diagnosis IMO Codes Diagnosis Note [id number] MD Phuong [facility] [place] [address] [place] [address] 10/19/2023 13:13:10 10/19/2023 16:38:19 End stage renal failure on dialysis 621170036 Z99.2 on dialysis 3 times/wk- euvolemic, stable, has bladder cathether and urine bag, recent adm for infections /bleeding- f/b urology. Essential hypertension 25352770 I10 stable on meds- did not bring home meds, ? complaince - will enroll in rpm Smoker 38699045 F17.200 smoking cessation counsellin nohemi done, doesn't use inhalers Multiple p remature ventricular complexes 776915854 I49.3 pt has multiple pvc / pac [...] Member ID Taylor Member ID Guarantor Name 12/26/2024 1 [employer] (MEDICARE REPLACEMENT/ ADVANTAGE - HMO) [id number] Aime Ceja [id number] Niesha Ceja Notes Date Note Type Note Provider Name and Address Organization Details Recorded Time 10/19/2023 text/html ROS as noted in the HPI New consultESRD on dialysis, smoker, HTNlives with sister, 1 jenny house, independent for most ADL, doesn't drive, uses a cane to ambulatedenies prior [place], stroke, HF issues- poor historianno edema, no syncope, no angina reported 1 lead EKG shows sinus rhythm with freq PVC- pt denies palpitaionsdid not bring home meds Bedside limited Echo shows normal EF , no effusion Patient gives informed, verbal consent for chronic care management services via [facility]. We discussed benefits of care management and [...] consents to remote patient monitoring and the [facility] clinical service. Please send devices and schedule onboarding visit Jonathan Velasco MD [address] [place] [address] [place], [address], [place] - [facility] 10/20/2023 14:26:56
--- OUTSIDE RECORDS SUMMARY | 2025-01-06 09:19 | XMS_ITS | Patient Health Record ---
Author Organization [facility] Address [address] [place] [address] Care Team Providers Care Field Marketing Team Leader Name Role Phone [facility], [facility]. Primary Care Provider [phone] Dr. Bridgett Hernandez [facility] Allergies Allergen (clinical drug ingredient) Drug/Non [...] W/U Status Risk Notes Problem Essential hypertension (54523526) Essential (primary) hypertension (I10) Active confirmed Problem Tobacco use (207212291) Tobacco use (Z72.0) Active confirmed Problem COPD - Chronic obstructive pulmonary disease (37363283) Chronic obstructive pulmonary disease, unspecified COPD type (J44.9) Active confirmed Problem Rheumatoid arthritis (62866016) Rheumatoid arthritis involving both hands, unspecified rheumatoid factor presence (M06.9) Active confirmed Problem Chronic kidney disease stage 3B (disorder) (471110962) Stage 3b chronic kidney disease (N18.32) Active confirmed Plan Of Treatment Pending Test Test Name Order Date venipuncture 11/02/2014 venipuncture 05/13/2015 venipuncture 01/14/2016 venipuncture 01/11/2014 venipuncture 02/16/2014 VENIPUNCTURE 10/18/2012 VENIPUNCTURE 04/25/2013 VENIPUNCTURE 04/19/2012 VENIPUNCTURE 11/14/2013 VENIPUNCTURE 06/27/2012 VENIPUNCTURE 07/11/2012 Insurance Providers Payer Name Payer Address Payer Phone Subscriber Number Group Number Insured Name Patient Relationship to Insured Coverage Start Date Coverage End Date Medicaid of [place] [employer] Attention Claims [address] [place] [id number] Niesha Ceja Self - patient is the insured 2 [employer] [address] [address] [place] [id number] Niesha Ceja Self - patient is the insured 8 Medical (General) History Medical History History ICD Code hypertension tobacco use COPD rheumatoid arthritis crush injury to the left heel CKD Stage 3b Surgical History Surgery Date(Month/Year) Colonoscopy @ [facility] 07-17-15 [facility] Date[facility] P[facility] 2019
--- OUTSIDE RECORDS SUMMARY | 2025-01-06 09:19 | XMS_ITS | Clinical Summary ---
Author Organization [facility] Address [address] [place] [address] Phone Care Team Providers Care Pullboat Engineer Name Role Phone Unavailable Primary Care Provider Unavailabl e Allergies No known active allergies Medications amLODIPine (NORVASC) 5 mg tablet Take 5 mg by mouth daily. 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
--- OUTSIDE RECORDS SUMMARY | 2025-01-06 09:19 | XMS_ITS | Clinical Summary ---
Author Organization [facility] Address [facility] [place] [address] Care Team Providers Care Operations Developer Name Role Phone Castro Spain MD Primary [...] or pharmacy Patient declines to respond 01/06/2024 [facility] Utilities Answer Date Recorded In the past 12 months has e [employer], oil, or water [employer] threatened to shut off services in your [...] any time in the past 12 m [facility], were you homeless or living in a snf (including now)? 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 Gender Identity Not on file Sexual Orientation Not on file Last Filed Vital Signs Vital Sign Reading Time Taken Comments Blood Pressure 98/62 01/04/2024 1:10 PM ROVING CARRIER Pulse 82 01/04/2024 1:10 PM ROVING CARRIER Temperature 36.3 C (97.3 F) 01/04/2024 1:10 PM ROVING CARRIER Respiratory Rate 18 01/04/2024 1:10 PM ROVING CARRIER Oxygen Saturation 97% 01/04/2024 1:10 PM ROVING CARRIER Inhaled Oxygen Concentration - - Weight 63.9 kg (140 lb 14 oz) 12/12/2023 4:19 AM CDT Height 182.9 cm (6') 12/08/2023 8:43 AM CDT Body Mass Index 19.11 12/08/2023 8:43 AM CDT Plan of Treatment Health Maintenance Due Date Last Done Comments Colorectal Cancer Screening Colonoscopy (10 Years) 1957 Hepatitis C 05/19/1975 DTaP, Tdap and Td Vaccines ( 1 - Tdap) 1976 Pneumococcal Vaccine: 50+ Years (1 of 2 - PCV) 1976 Zoster Vaccines (1 of 2) 05/19/2007 Annual Medicare Wellness Visit 2022 COVID-19 Vaccine (2 - 2024-2 6 season) 2024 01/10/2022 Influenza Adult (#1) 2024 11/23/2023, 01/10/2022 RSV Immunization or 60+ Years (1 - 1-dose 75+ series) 2032 Hepatitis A Vaccines Aged Out No long [...] +ESBL Blood. Added from external infection. Source: [facility]. 12/04/2022 Insurance ZZZLAKE LINDEN AETNA MEDICARE Advance Directives * Full Code (Latest Code Status on File) Date Activated Date Inactivated Comments 12/15/2023 12:27 PM * Full Code Date Activated Date Inactivated Comments 12/08/2023 2:26 PM 12/14/2023 3:47 PM * Full Code Date Activated Date Inactivated Comments 03/06/2020 12:00 AM 03/07/2020 4:54 PM Care Teams Operations Developer Relationship Specialty Start Date End Date Castro Spain MD PCP - General INFECTIOUS DISEASE 12/14/23
--- NOTE | 2025-01-06 10:08 | ED.FALL ---
HPI - Fall General Chief Complaint: Fall Stated Complaint: fall at 0400 History of Present Illness HPI Narrative: Patient is a 69-year-old male who presents ER after having a fall at 4:00 a.m.. Patient is oriented times 0. He has a laceration lateral to left eye. Patient is on hospice due to advanced dementia. Sent here to be evaluated for possible head bleed. He is on Plavix/aspirin. Related Data Home Medications ?Medication ?Instructions ?Recorded ?Confirmed ?Last Taken ?Type acetaminophen 500 mg capsule 500 mg PO Q6H PRN pain 03/12/24 12/19/24 03/11/24 History amlodipine 10 mg tablet 10 mg PO DAILY 03/12/24 12/19/24 03/11/24 History famotidine 20 mg tablet 20 mg PO DAILY 03/12/24 12/19/24 12/19/24 History finasteride 5 mg tablet 5 mg PO DAILY 03/12/24 12/19/24 12/19/24 History pantoprazole 40 mg tablet,delayed 40 mg PO DAILY 03/12/24 12/19/24 12/19/24 History release tamsulosin 0.4 mg capsule 0.4 mg PO HS 03/12/24 12/19/24 12/19/24 History Allergies Allergy/AdvReac Type Severity Reaction Status Date / Time ISRAEL Inhibitors Allergy Severe Unknown Verified 01/06/25 08:55 lisinopril Allergy Intermediate Itching Verified 01/06/25 08:55 Review of Systems Review of Systems: ROS unobtainable: Yes unobtainable due to mental status PMFSH Past Medical History Medical History (Updated 01/06/25 @ 12:37 by Inocencio Cody MD) Seizure after head injury Anemia in CKD (chronic kidney disease) ESRD on dialysis M/W/F GERD (gastroesophageal reflux disease) Hypertension Family History Family History Father Diabetes mellitus Mother Hypertension Social History Social History Tobacco type: cigarettes Second hand tobacco smoke exposure: Yes Alcohol intake: current Drinks per week: 1 Substance use: never Substance use type: does not use Other substance usage details: drinks vodka/beer Do You Feel Safe in your Home?: Yes Lack of Transportation: No Lack of Food: Never True Current Housing: I Have Housing Concerned About Future Housing: No Difficulty Paying Gas/Electric Bills: No Difficulty Paying for Meds: No Currently Unemployed: No Education: High School Diploma/GED Difficulty w/ Childcare or Family Care: No Spiritual care concerns: No Exam Narrative: GENERAL: Well-appearing, well-nourished, and in no acute distress. HEAD: Normocephalic, atraumatic. EYES: PERRL and EOMI. 2 cm laceration lateral to the left eye. ENT: Mucous membranes moist. CHEST: Clear to auscultation. No respiratory distress. HEART: Regular rate and rhythm. Normal peripheral pulses. ABDOMEN: Soft, nontender, nondistended. EXTREMITIES: Normal range of motion. No edema. SKIN: Warm, dry, no rash. NEURO: Alert and oriented x0. Course Course Emergency Course: Discussed with Orthopedic surgery. Patient placed in long arm posterior splint and given a sling for comfort. Discharge home with pain medication. Follow up outpatient. Vital Signs Vital signs: Vital Signs Temperature 97.6 F 01/06/25 08:48 Pulse Rate 73 01/06/25 08:48 Respiratory Rate 18 01/06/25 08:48 Blood Pressure 129/83 01/06/25 08:48 Pulse Oximetry 100 01/06/25 08:48 Oxygen Delivery Room Air 01/06/25 08:48 Temperature 97.6 F 01/06/25 08:48 Pulse Rate 73 01/06/25 08:48 Respiratory Rate 18 01/06/25 08:48 Blood Pressure 126/58 L 01/06/25 09:16 Pulse Oximetry 100 01/06/25 09:16 Oxygen Delivery Room Air 01/06/25 08:48 MDM - Fall Imaging Data Radiologist's impression: Examination: XR elbow LT min 3V Clinical History: trauma Comparison: None Technique: 3 views left elbow Findings/impression: 1. Nondisplaced transverse fracture through distal humeral epicondyles bilaterally. 2. No additional fracture identified. 3. Joint effusion. 4. No dislocation. Reviewed, dictated and finalized at location R. ARY COUNSELOR Discharge Plan Discharge Clinical Impression: Humerus distal fracture Patient Disposition: Home Condition: Stable Instructions: Elbow Fracture (ED) Additional Instructions: You fractured your humerus at the elbow. Wear your splint and follow-up with Orthopedic surgery. Take Tylenol with hydrocodone for pain. Return the ER if you suffered a new injury, your hand is cold and blue, or you have additional concerns. Patient Language: Luxembourgish Prescriptions: New hydrocodone-acetaminophen 5-325 mg tablet 1 tablet PO Q6H PRN (Reason: pain) Qty: 20 0RF No Action amlodipine 10 mg tablet 10 mg PO DAILY famotidine 20 mg tablet 20 mg PO DAILY tamsulosin 0.4 mg capsule 0.4 mg PO HS pantoprazole 40 mg tablet,delayed release (DR/EC) 40 mg PO DAILY finasteride 5 mg tablet 5 mg PO DAILY acetaminophen 500 mg capsule 500 mg PO Q6H PRN (Reason: pain) atorvastatin 40 mg Tablet 40 mg PO DAILY Qty: 30 2RF clopidogrel 75 mg Tablet 75 mg PO QAM Qty: 30 2RF aspirin 81 mg Tablet,Delayed Release (Dr/Ec) 81 mg PO QAM Qty: 30 2RF fidaxomicin [Dificid] 200 mg Tablet 200 mg PO Q12HR Qty: 16 0RF levetiracetam [Keppra] 500 mg Tablet 500 mg PO Q12HR Qty: 60 2RF folic acid 1 mg Tablet 1 mg PO DAILY Qty: 30 2RF thiamine HCl (vitamin B1) [Vitamin B-1] 100 mg Tablet 100 mg PO QAM Qty: 30 2RF metoprolol tartrate 50 mg Tablet 50 mg PO Q12HR Qty: 60 2RF Follow-up/Referrals: Ronaldo Cote MD [Physician, Orthopedics] - 1 Week UNKNOWN,DOCTOR [Primary Care Provider]
[2025-01-06] MEDS: MORPHINE SULFATE (*CRX) 4 MG/ML INJ 2 MG IV PUSH (11:46)
--- NOTE | 2025-01-06 13:27 | PC.NURSE ---
RN spoke with son about picking patient up. He stated he would be there to transfer him home. Patient wheeled to waiting room to wait for family. Patient instructed to ask nurse at desk to call family again if they are not here in 20 minutes.
== END 2025-01-06 13:30 | disposition home or self-care (01) ==
PROVIDERS: Emergency Provider Emergency Medicine
DX: S42.495A Other nondisplaced fracture of lower end of left humerus, initial encounter for closed fracture (principal); S05.32XA Ocular laceration without prolapse or loss of intraocular tissue, left eye, initial encounter; W45.8XXA Other foreign body or object entering through skin, initial encounter; W19.XXXA Unspecified fall, initial encounter; F03.90 Unspecified dementia, unspecified severity, without behavioral disturbance, psychotic disturbance, mood disturbance, and anxiety; I12.0 Hypertensive chronic kidney disease with stage 5 chronic kidney disease or end stage renal disease; N18.6 End stage renal disease; Z99.2 Dependence on renal dialysis; Z79.82 Long term (current) use of aspirin; D63.1 Anemia in chronic kidney disease; K21.9 Gastro-esophageal reflux disease without esophagitis
CPT/HCPCS: 29105; 73080; 96374; 96376; 99284; J2270

== ENCOUNTER 2025-01-30 04:26 | Emergency (ER) | payer MEDICARE, MEDICAID, SELFPAY ==
--- NOTE | ~2025-01-30 | XR_ITS ---
EXAMINATION: XR ankle LT min 3V, 01/30/2025 8:00 FASHION PATTERNMAKER HISTORY: fall, ant and lat pain on ankle COMPARISON: No comparisons available. Findings: There is deformity of the calcaneus which may relate to sequelae of previous fracture, superimposed acute fracture difficult to exclude. Severe degenerative changes. Soft tissue swelling. Impression: Please see above. CT suggested to assess as clinically warranted Reviewed, dictated and finalized at location P. ION PATTERNMAKER Impression: Please see above. CT suggested to assess as clinically warranted
--- NOTE | ~2025-01-30 | CT_ITS ---
EXAMINATION: CT foot LT wo con DATE: 01/30/2025 08:35 INDICATION: Dorsal left foot pain post injury TECHNIQUE: High resolution computed tomography (CT) of the left foot was performed without intravenous contrast. Additional sagittal and coronal reconstructions were performed. Automated exposure control and iterative reconstruction technique were employed. The dose-length product was 456.78 mGy-cm. COMPARISON: Radiographs dated 01/30/2025 FINDINGS: Old joint depression type fracture of the left calcaneus with residual flattening of Boehler's angle. There are acute intra-articular fractures at the base of the second and third metatarsals, the latter mildly comminuted. There is approximately 2-3 mm step-off along the articular surface of the second metatarsal and a 2 mm fracture gap along the articular surface of the third metatarsal. There are also nondisplaced fractures along the dorsal distal margin of the mid and lateral cuneiforms as well as the cuboid. There is mild polyarticular osteoarthritis throughout the foot and at the ankle. No ankle joint effusion or other abnormal fluid collections. There is with a convex margin of the distal fibula in the region of the retromalleolar groove with anterolateral subluxation of the peroneus longus and brevis tendons. This likely chronic given the heterotopic ossicles along the subluxed tendons. IMPRESSION: 1. Mild displacement of acute intra-articular fracture at the bases of the second and third metatarsals additional nondisplaced fractures along the dorsal distal margin of the mid and lateral cuneiforms and the cuboid. 2. Old healed joint depression type fracture deformity of the calcaneus. Reviewed, dictated and finalized at location A. LOPER RELATIONS MANAGER IMPRESSION: 1. Mild displacement of acute intra-articular fracture at the bases of the seco nd and third metatarsals additional nondisplaced fractures along the dorsal dis bess margin of the mid and lateral cuneiforms and the cuboid. 2. Old healed joint depression type fracture deformity of the calcaneus.
--- OUTSIDE RECORDS SUMMARY | 2025-01-30 04:25 | XMS_ITS | Clinical Summary ---
Author Organization [facility] Address [facility] [place] [address] Care Team Providers Care Inclusion Special Education Teacher Name Role Phone Castro Spain MD Primary [...] Date Smoking Tobacco: Every Day Cigarettes 0.5 48.5 Started: 08/05/1976 Smokeless Tobacco: Never Tobacco Cessation:Ready [...] or pharmacy Patient declines to respond 01/06/2024 [facility] Utilities Answer Date Recorded In the past 12 months has e [employer], oil, or water [employer] threatened to shut off services in your [...] any time in the past 12 m [facility], were you homeless or living in a fdc (including now)? 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 Added from external infection. Source: [facility]. 12/04/2022 [place] Advance Directives * Full Code (Latest Code Status on File) Date Activated Date Inactivated Comments 12/15/2023 12:27 PM * Full Code Date Activated Date Inactivated Comments 12/08/2023 2:26 PM 12/14/2023 3:47 PM * Full Code Date Activated Date Inactivated Comments 03/06/2020 12:00 AM 03/07/2020 4:54 PM Care Teams Inclusion Special Education Teacher Relationship Specialty Start Date End Date Castro Spain MD PCP - General INFECTIOUS DISEASE 12/14/23
--- OUTSIDE RECORDS SUMMARY | 2025-01-30 04:25 | XMS_ITS | Clinical Summary ---
Author Organization [facility] Address [address] 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 Gender Identity Not on file Sexual Orientation [...] Flex Sig/CT Colonography Q 5 years 2002 RSV VACCINE (60+ or ) (1 - Risk 50-74 years 1-dose series) 05/19/2007 ZOSTER VACCINE (1 of 2) 05/19/2007 INFLUENZA VACCINE (#1) 2024 01/10/2022 COVID-19 Vaccine (2 - season) 10/30/202401/2022 COLORECTAL SCREENING 06/16/2032 06/16/2022, 06/17/19 Colorectal Cancer Screening 06/16/2032 Medical Devices Explanted Type Area Manual Winder Device Identifier Shelf Expiration Date Model / Serial / Lot Bilateral Ureteral Stents Explanted:Qty: 2 on 12/23/2023 by Dm Burr MD at [facility] Bilateral: Ureter Insurance [facility] MCR AETNA HMO MCR
--- OUTSIDE RECORDS SUMMARY | 2025-01-30 04:25 | XMS_ITS | Clinical Summary ---
Author Organization [facility] Address [address] [place] [address] Care Team Providers Care Clinical Liaison Name Role Phone Unavailable Primary Care Provider Unavailabl e Source Comments [facility],non-owned Affiliates and Associated Physician Practices is amultiple site organization consisting of ambulatory clinics and hospital sitesin [place], [place], [place] and [place]. This disclosure is being madepursuant to the Care Everywhere program and may not contain all information available regarding this patient. Last updated 17.[facility] Allergies Active Allergy Reactions Criticality Noted Date [...] topic Insurance MEDICARE [place] AETNA [facility] Address: [address] [address] [place] [address] [employer] MEDICARE ADV
[2025-01-30 04:27] VITALS: BP 155/85; PULSE 77; RESP 18; TEMP 36.6; O2SAT 99
--- OUTSIDE RECORDS SUMMARY | 2025-01-30 08:00 | XMS_ITS | Clinical Summary ---
Author Organization [facility] Address [address] [place] [address] Care Team Providers Care Ekg Technician Name Role Phone Unavailable Primary Care Provider Unavailabl e Source Comments [facility],non-owned Affiliates and Associated Physician Practices is amultiple site organization consisting of ambulatory clinics and hospital sitesin [place], [place], [place] and [place]. This disclosure is being madepursuant to the Care Everywhere program and may not contain all information available regarding this patient. Last updated 17.[facility] [employer] Allergies Active Allergy Reactions Criticality Noted Date [...] topic Insurance MEDICARE MEDICA[place] - [place] AETNA [facility] Address: [address] [address] [place] [address] TNA MEDICARE ADV
--- OUTSIDE RECORDS SUMMARY | 2025-01-30 08:00 | XMS_ITS | Clinical Summary ---
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 Added from external infection. Source: [facility]. 12/04/2022 Insurance [employer] AETNA MEDICARE Advance Directives * Full Code (Latest Code Status on File) Date Activated Date Inactivated Comments 12/15/2023 12:27 PM * Full Code Date Activated Date Inactivated Comments 12/08/2023 2:26 PM 12/14/2023 3:47 PM * Full Code Date Activated Date Inactivated Comments 03/06/2020 12:00 AM 03/07/2020 4:54 PM Care Teams Cleaner And Preparer Relationship Specialty Start Date End Date Castro Spain MD PCP - General INFECTIOUS DISEASE 12/14/23
--- OUTSIDE RECORDS SUMMARY | 2025-01-30 08:00 | XMS_ITS | Clinical Summary ---
Author Organization [facility] Address [address] 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
--- OUTSIDE RECORDS SUMMARY | 2025-01-30 08:00 | XMS_ITS | Data Portability ---
Author Organization [place] [facility], [facility] CAR HOSTLER Address [address] [place] [address] [address] [place] [address] Care Team Providers Care Driver/Guide Name Role Phone JACK NOVA Primary Care Provider [phone] Assessment No assessment recorded. Plan of Treatment Reminders Order Date Submit Date Provider Last Modified By Organization Details Last Modified Time Details Appointments None recorded. Lab None recorded. Referral cardiac rehabilitat ion provider referral - Initiate monitored exercise program per outpatient CR policies and procedures. 2023 024 [email or web address] Not available 5 11:52:54 Procedures remote physiologic monitoring (PROC) - [facility] Device enrollment for Blood pressure cuff, Scale, & Pulse oximetry -- PLEASE INQUIRE IF PATIENT WILL NEED REGULAR SIZE CUFF OR LARGE CUFF Patient consents to remote patient monitoring and agrees to join [facility]'s clinical service. Please order device and schedule onboarding visit. 2023 024 VIVIAN [facility], [address], [place], [address], 4 15:28:25 rhythm ECG, 1-3 leads; with interpretat ion and report (PROC) 2023 024 [email or web address] Not available 4 17:15:52 Surgeries None recorded. Imaging US, echocardiog gerry, transthorac ic, follow-up/l imited 2023 024 [email or web address] [facility], [address], [place], [address], 13:02:29 Medication Orders None recorded. Patient TargetsNo targets recorded. Patient Instructions Encounter Date Encounter Id Patient Instructions Last Modified By Organization Details Last Modified Time 10/19/2023 [id number] high blood pressure: care instructions Not available 10/19/2023 13:57:19 learning about high blood pressure Not available 10/19/2023 13:57:19 chronic care management and care planning* VIVIAN Not available 10/19/2023 15:03:12 Reason for Referral [...] (PROC ) No observ ation record ed. [facility] [address], [place], [address], 10/19/2023 16:51:42 10/19/19 24 US, echoc ardio gram, trans thora cic, limit ed No observ ation record ed. [facility] [address], [place], [address], 10/19/2023 16:52:09 10/19/19 24 10/19/2023 US, echoc ardio gram, trans thora cic, follo w-up/ limit ed No observ ation record ed. [email or web address] [facility] [address], [place], [address], 10/20/2023 15:46:50 Result Notes None recorded. Problems Name Problem SNOMED Code Status Onset Date Resolution Date Notes Provider Name and Address Organization Details Recorded Time Palpitations 45893377 Active 2023 Jonathan Velasco MD [address] [address], [place], [address], [facility] [place] [facility] 4 13:47:58 Essential hypertension 31268626 Active 2023 Jonathan Velasco MD [address] [place] [address], [place], [address], [place] [facility] 4 13:48:17 Smoker 13114202 Active 2023 Jonathan Velasco MD [address] [place] [address], [place], [address], [facility] [place] [facility] 4 13:48:56 Multiple premature ventricular complexes 898207121 Active 2023 Jonathan Velasco MD [address] [place] [address], [place], [address], [facility] [place] [facility] 4 13:55:46 Problem Notes Documentation Provider Name and [...] and input/output charting during the procedure [place] - [facility] 10/23/2023 14:47:52 Medical Equipment None Reported. Allergies Allergen ID Allergen Name Allergen Category Reaction Reaction Severity Criticality Documentation Date Start Date Code Code System Note Provider Name and Address Organization Details Recorded Time 94784 lisinopri l medicatio n itching Not available high 01/22/2025 11527 RxNorm Not Available vivian - External Data Service - prod 05:18:17 15134 Product containin g angiotens in-conver ting enzyme inhibitor (product) medicatio n itching Not available high 01/22/2025 77248 009 SNOMED Not Available [facility]ian - External Data Service - prod 5 05:18:17 42574 oxycodone medicatio n itching Not available high 01/22/2025 7804 RxNorm Not Available vivian - External Data Service - prod 5 05:18:17 Medications Name Sig Start Date Stop Date [...] tablet TAKE 1 TABLET BY MOUTH EVERY 6 HOURS NEEDED FOR PAIN active Not Available Not Available No t Available clopidogrel 75 mg tablet TAKE 1 [...] Vitals Date Recorded Body weight Oxygen saturation Systolic And Diastolic Provider Name and Address Organization Details Last Updated DateTime 10/19/2023 63548.86 g 99 % 143/97 mm[Hg] ingabarrett lopez [place] - [facility] 10/19/2023 13:12:57 Social History None recorded. Functional Status None recorded. Mental Status None recorded. Family History Nothing Reported. Medical History No medical history recorded. Past Encounters Encounter ID Performer Location Encounter Start Date Encounter Closed Date Diagnosis/Indication Diagnosis SNOMED-CT Code Diagnosis ICD10 Code Diagnosis IMO Codes Diagnosis Note [id number] MD [facility]ke [facility] [place] [address] [facility] [place] [address] 10/19/2023 13:13:10 10/19/2023 16:38:19 End stage renal failure on dialysis 295860572 Z99.2 on dialysis 3 times/wk- euvolemic, stable, has bladder cathether and urine bag, recent adm for infections /bleeding- f/b urology. Essential hypertension 62738919 I10 stable on meds- did not bring home meds, ? complaince - will enroll in [facility] Smoker 93235767 F17.200 smoking cessation counsellin nohemi done, doesn't use inhalers Multiple p remature ventricular complexes 540626561 I49.3 pt has multiple pvc / pac [...] Member ID Taylor Member ID Guarantor Name 01/19/2025 1 [employer] (MEDICARE REPLACEMENT/ ADVANTAGE - HMO) [id number] Amie Ceja [id number] Niesha Ceja Notes Date Note Type Note Provider Name and Address Organization Details Recorded Time 10/19/2023 text/html ROS as noted in the HPI New consultESRD on dialysis, smoker, HTNlives with sister, 1 [address] house, independent for most ADL, doesn't drive, uses a cane to ambulatedenies prior IA, stroke, HF issues- poor historianno edema, no syncope, no angina reported 1 lead EKG shows sinus rhythm with freq PVC- pt denies palpitaionsdid not bring home meds Bedside limited Echo shows normal EF , no effusion Patient gives informed, verbal consent for chronic care management services via [facility]. We discussed benefits of care management and [...] consents to remote patient monitoring and the [facility] clinical service. Please send devices and schedule onboarding visit Jonathan Velasco MD [address] [place] [address], [place], [address], [place] [facility] 10/20/2023 14:26:56
[2025-01-30 08:40] VITALS: BP 169/104; PULSE 77; RESP 20; O2SAT 100
[2025-01-30] MEDS: HYDROcodone/acetaminophen (*CRX) 5-325 MG TABLET 1 TAB PO (08:40)
[2025-01-30 10:29] VITALS: BP 172/90; PULSE 73; RESP 18; O2SAT 100
--- NOTE | 2025-01-30 13:48 | ED.FALL ---
HPI - Fall General Chief Complaint: Fall Stated Complaint: fall/L ankle injury Time Seen by Provider: 01/30/25 07:43 History of Present Illness HPI Narrative: Patient presenting here after he twisted his left foot, happened sometime last night, he is having pain and swelling to his foot. Had an old injury in the past. Related Data Home Medications ?Medication ?Instructions ?Recorded ?Confirmed ?Last Taken ?Type acetaminophen 500 mg capsule 500 mg PO Q6H PRN pain 03/12/24 12/19/24 03/11/24 History amlodipine 10 mg tablet 10 mg PO DAILY 03/12/24 12/19/24 03/11/24 History famotidine 20 mg tablet 20 mg PO DAILY 03/12/24 12/19/24 12/19/24 History finasteride 5 mg tablet 5 mg PO DAILY 03/12/24 12/19/24 12/19/24 History pantoprazole 40 mg tablet,delayed 40 mg PO DAILY 03/12/24 12/19/24 12/19/24 History release tamsulosin 0.4 mg capsule 0.4 mg PO HS 03/12/24 12/19/24 12/19/24 History Allergies Allergy/AdvReac Type Severity Reaction Status Date / Time ISRA[place] Inhibitors Allergy Severe Unknown Verified 01/30/25 04:23 lisinopril Allergy Intermediate Itching Verified 01/30/25 04:23 Review of Systems Review of Systems: All systems reviewed & are unremarkable except as noted in HPI and below PMFSH Past Medical History Medical History (Updated 01/30/25 @ 09:48 by Bianca Nuno MD) Seizure after head injury Anemia in CKD (chronic kidney disease) ESRD on dialysis M/W/F GERD (gastroesophageal reflux disease) Hypertension Family History Family History Father Diabetes mellitus Mother Hypertension Social History Social History Smoking status: Current every day smoker Tobacco type: cigarettes Second hand tobacco smoke exposure: Yes Alcohol intake: current Drinks per week: 1 Substance use: never Substance use type: does not use Other substance usage details: drinks vodka/beer Lack of Transportation: No Lack of Food: Never True Current Housing: I Have Housing Concerned About Future Housing: No Difficulty Paying Gas/Electric Bills: No Difficulty Paying for Meds: No Currently Unemployed: No Education: High School Diploma/GED Difficulty w/ Childcare or Family Care: No Spiritual care concerns: No Exam Narrative: EXAMINATION OF ORGAN SYSTEMS/BODY AREAS: Constitutional: Vital signs per nursing GENERAL:[No acute distress, non-toxic appearing.] HEAD: Normal with no signs of head trauma. EYES: EOMI, conjunctiva normal ENT: Hearing grossly intact LUNGS: Nonlabored breathing. HEART: [Regular rate and rhythm], DP pulse intact ABD: [Soft], [nontender to palpation] EXT: Swelling and tenderness to the dorsum of left foot SKIN: Some bruising to the left foot NEURO: [Alert. No gross focal sensory or strength deficits.] PSYCH: Normal affect Course Vital Signs Vital signs: Vital Signs Temperature 97.8 F 01/30/25 04:27 Pulse Rate 77 01/30/25 04:27 Respiratory Rate 18 01/30/25 04:27 Blood Pressure 155/85 H 01/30/25 04:27 Pulse Oximetry 99 01/30/25 04:27 Oxygen Delivery Room Air 01/30/25 04:27 Temperature 97.8 F 01/30/25 04:27 Pulse Rate 73 01/30/25 10:29 Respiratory Rate 18 01/30/25 10:29 Blood Pressure 172/90 H 01/30/25 10:29 Pulse Oximetry 100 01/30/25 10:29 Oxygen Delivery Room Air 01/30/25 04:27 Procedures Orthopedic Splinting/Casting Injury #1: Splinting/Casting Date: 01/30/25 Splinting/Casting Time: 13:55 Side: left Lower Extremity Injury Location: foot Lower Extremity Immobilizer: posterior splint Splint: customized in ED Pre-Procedure Neuro Vascular Exam: normal Post-Procedure Neuro Vascular Exam: normal MDM MDM Narrative Medical decision making narrative: 69M p/w L foot injury, on exam it is swollen and tender, neurovascularly intact. CT foot showing some acute fractures of the left foot, I discussed orthopedist who reviewed the scan, recommends posterior splint with lots of padding, and follow-up to him in the clinic. Discussed this patient who is agreeable to plan, strict return precautions discussed. Also instructed on splint care, if he starts having any discomfort or feels it is too tight he can loosen splint return to the ER. Differential Diagnosis Differential Diagnosis: fracture, sprain Imaging Data Radiologist's impression: ITS Impressions Ankle X-Ray 01/30/25 08:14 Impression: Please see above. CT suggested to assess as clinically warranted Foot CT 01/30/25 09:23 IMPRESSION: 1. Mild displacement of acute intra-articular fracture at the bases of the second and third metatarsals additional nondisplaced fractures along the dorsal distal margin of the mid and lateral cuneiforms and the cuboid. 2. Old healed joint depression type fracture deformity of the calcaneus. Discharge Plan Discharge Clinical Impression: Foot fracture Patient Disposition: Home Condition: Stable Instructions: Foot Fracture in Adults (ED), Splint Care (ED) Additional Instructions: Please follow-up with orthopedic surgeon. Try to check your toes make sure you have good blood flow, and if you start having any discomfort to your foot or anything else, take the splint off and come to the emergency room for recheck. Patient Language: Hebrew Prescriptions: New hydrocodone-acetaminophen 5-325 mg tablet 1 tablet PO Q8H PRN (Reason: pain) Qty: 14 0RF No Action amlodipine 10 mg tablet 10 mg PO DAILY famotidine 20 mg tablet 20 mg PO DAILY tamsulosin 0.4 mg capsule 0.4 mg PO HS pantoprazole 40 mg tablet,delayed release (DR/EC) 40 mg PO DAILY finasteride 5 mg tablet 5 mg PO DAILY acetaminophen 500 mg capsule 500 mg PO Q6H PRN (Reason: pain) hydrocodone-acetaminophen 5-325 mg tablet 1 tablet PO Q6H PRN (Reason: pain) Qty: 20 0RF atorvastatin 40 mg Tablet 40 mg PO DAILY Qty: 30 2RF clopidogrel 75 mg Tablet 75 mg PO QAM Qty: 30 2RF aspirin 81 mg Tablet,Delayed Release (Dr/Ec) 81 mg PO QAM Qty: 30 2RF fidaxomicin [Dificid] 200 mg Tablet 200 mg PO Q12HR Qty: 16 0RF levetiracetam [Keppra] 500 mg Tablet 500 mg PO Q12HR Qty: 60 2RF folic acid 1 mg Tablet 1 mg PO DAILY Qty: 30 2RF thiamine HCl (vitamin B1) [Vitamin B-1] 100 mg Tablet 100 mg PO QAM Qty: 30 2RF metoprolol tartrate 50 mg Tablet 50 mg PO Q12HR Qty: 60 2RF Follow-up/Referrals: Gage Purvis MD [Physician, Orthopedics] - 2 Days UNKNOWN,DOCTOR [Primary Care Provider]
== END 2025-01-30 10:43 | disposition home or self-care (01) ==
PROVIDERS: Emergency Provider Emergency Medicine
DX: S92.322A Displaced fracture of second metatarsal bone, left foot, initial encounter for closed fracture (principal); S92.332A Displaced fracture of third metatarsal bone, left foot, initial encounter for closed fracture; S92.225A Nondisplaced fracture of lateral cuneiform of left foot, initial encounter for closed fracture; S92.215A Nondisplaced fracture of cuboid bone of left foot, initial encounter for closed fracture; I12.0 Hypertensive chronic kidney disease with stage 5 chronic kidney disease or end stage renal disease; N18.6 End stage renal disease; Z99.2 Dependence on renal dialysis; D63.1 Anemia in chronic kidney disease; F17.210 Nicotine dependence, cigarettes, uncomplicated; X50.9XXA Other and unspecified overexertion or strenuous movements or postures, initial encounter
CPT/HCPCS: 29515; 73610; 73700; 99284; A9270

== ENCOUNTER 2025-02-06 09:01 | Inpatient (IN) | payer MEDICARE, MEDICAID, SELFPAY ==
[2025-02-06] VITALS (25 sets, daily range): BP systolic 150–204; BP diastolic 78–112; PULSE 64–125; RESP 14–24; TEMP 36–37; O2SAT 94–100; BMI 20.2
--- NOTE | ~2025-02-06 | XR_ITS ---
EXAMINATION: XR chest 2V DATE: 02/06/2025 10:10 INDICATION: Seizure activity TECHNIQUE: Frontal and lateral views of the chest were obtained. COMPARISON: November 18, 2024 FINDINGS: Dual lumen right internal jugular central catheter stable in position. No pneumothorax or subphrenic free air. Heart size normal. No juan c pulmonary edema or effusion. No focal consolidative process. Bones and upper abdomen which appears stable. IMPRESSION: 1. No focal acute process. Reviewed, dictated and finalized at location A. N SORTER IMPRESSION: 1. No focal acute process.
--- NOTE | ~2025-02-06 | CT_ITS ---
EXAMINATION: CT brain wo con DATE: 02/06/2025 09:59 INDICATION: Seizure activity TECHNIQUE: Computed tomography (CT) of the head was performed without intravenous contrast. The dose-length product was 908.00 mGy-cm. COMPARISON: December 19, 2024 FINDINGS: Old left basal ganglia lacunar infarction, and advanced chronic microvascular ischemic appearing white matter changes throughout both cerebral hemispheres similar. No large acute ischemic event, mass effect or hemorrhage. Calvarial structures appear intact. IMPRESSION: 1. No gross acute intracranial process. 2. Several chronic appearing findings including advanced diffuse chronic microvascular white matter changes. 3. For new onset or refractory seizure disorder, correlation with brain MRI recommended for optimal evaluation. Reviewed, dictated and finalized at location A. K MECHANIC IMPRESSION: 1. No gross acute intracranial process. 2. Several chronic appearing findings including advanced diffuse chronic microv ascular white matter changes. 3. For new onset or refractory seizure disorder, correlation with brain MRI rec ommended for optimal evaluation.
--- NOTE | 2025-02-06 09:37 | ECG_ITS ---
Test Date: 2025-02-06 10:17:32 Measurements Intervals Baring Rate: 66 P: 67 AK: 195 QRS: 15 QRSD: 78 T: 56 QT: 422 QTc: 444 Interpretive Statements SINUS RHYTHM CANNOT R/O SEPTAL INFARCT, AGE INDETERMINATE NONSPECIFIC ST & T-WAVE ABNORMALITY- INF/LAT LEADS BASELINE ARTIFACT- II, III, AVR, AVL, AVF, V1-V6 ABNORMAL ECG Compared to ECG 12/19/2024 12:07:01 NO SIGNIFICANT CHANGE Electronically Signed On 02-06-2025 10:22:57 CUSTOMER ACCOUNTS ADVISOR by Richard Steve D.O.
[2025-02-06] MEDS: diazePAM INJ (*CRX) 10 MG/2 ML SYRINGE 5 MG IV PUSH (10:41)
[2025-02-06] MEDS: levETIRAcetam 1000MG/NACL100ML 1,000 MG/100 ML BAG 400 MG IVPB (10:42)
[2025-02-06 10:46] LABS: Hematocrit 24.1 % (42.0-52.0); Hemoglobin 7.9 g/dL (14.0-18.0); Immature Granulocyte Percent A 0.4 % (0-0.5); Lymphocytes Absolute Auto 2.01 K/mm3 (0.9-3.2); Mean Corpuscular HGB Conc 32.8 g/dl (32-36); Mean Corpuscular Hemoglobin 30.7 pg (26-34); Mean Corpuscular Volume 93.8 fl (80-100); Nucleated Red Blood Cells Absolute Auto 0.000 K/mm3 (0.0-0.012); Nucleated Red Blood Cells Perc 0.0 % (0.0-0.2); Platelet Count Result 285 k/mm3 (150-375); Red Blood Count 2.57 M/mm3 (4.6-6.20); White Blood Count 13.5 K/mm3 (4.5-10.0)
[2025-02-06 10:52] LABS: INR 0.9; Prothrombin Time 12.5 Seconds (11.1-14.7)
[2025-02-06 10:53] LABS: Alanine Aminotransferase 11 U/L (6-50); Albumin Level 4.2 g/dL (3.5-5.1); Alkaline Phosphatase 106 U/L (38-126); Anion Gap 16 mmol/L (4-12); Aspartate Amino Transferase 25 U/L (17-59); Bilirubin,Total 0.8 mg/dL (0.2-1.3); Blood Urea Nitrogen 52 mg/dL (9-20); Calcium 9.2 mg/dL (8.4-10.2); Carbon Dioxide 21 mmol/L (22-30); Chloride 93 mmol/L (98-107); Glucose 47 mg/dL (65-110); Magnesium 2.3 mg/dL (1.6-2.3); Partial Thromboplastin Time 25.2 Seconds (22.3-36.8); Potassium 6.1 mmol/L (3.4-5.0); Sodium 130 mmol/L (137-145); Total Protein 7.8 g/dL (6.3-8.2)
[2025-02-06] MEDS: DEXTROSE 50% 25 GM/50 ML SYRINGE IV PUSH (10:58)
--- NOTE | 2025-02-06 11:00 | ED.SEIZURE ---
HPI - Seizure General Chief Complaint: Seizure <AYLIN Rice Last Filed: 02/06/25 14:13> Stated Complaint: ?seizure, tremors, slurred speech <AYLIN Rice Last Filed: 02/06/25 14:13> Time Seen by Provider: 02/06/25 09:09 <AYLIN Rice Last Filed: 02/06/25 14:13> Source: patient and old records reviewed <AYLIN Rice Last Filed: 02/06/25 14:13> Mode of arrival: EMS <AYLIN Rice Last Filed: 02/06/25 14:13> Limitations: no limitations <AYLIN Rice Last Filed: 02/06/25 14:13> History of Present Illness HPI Narrative: Patient is a 69-year-old male, with PMH of ESRD on HD MWF, seizure disorder, alcohol dependence, chronic anemia, HTN, recent L humerus fx, who presents the ED via EMS with report of seizure-like activity. Per EMS, patient began having convulsions this morning and family called for EMS. Patient with twitching and spasms to his left-sided face. Patient does report having difficulty speaking due to the twitching/spasms. Per records, he was admitted to the hospital for similar symptoms from 12/19 through 12/26. Started on Keppra at that time. Patient does report that he missed his normal dialysis yesterday because he did not have an field administrative assistant to go with him. Feller Operator is Dr. Deluca. Denies any other acute complaints. Denies headaches, vision changes, focal numbness or weakness. <AYLIN Rice Last Filed: 02/06/25 14:13> Seizure History: Yes <AYLIN Rice Last Filed: 02/06/25 14:13> Related Data Home Medications: Home Medications ?Medication ?Instructions ?Recorded ?Confirmed ?Last Taken ?Type acetaminophen 500 mg capsule 500 mg PO Q6H PRN pain 03/12/24 12/19/24 03/11/24 History amlodipine 10 mg tablet 10 mg PO DAILY 03/12/24 12/19/24 03/11/24 History famotidine 20 mg tablet 20 mg PO DAILY 03/12/24 12/19/24 12/19/24 History finasteride 5 mg tablet 5 mg PO DAILY 03/12/24 12/19/24 12/19/24 History pantoprazole 40 mg tablet,delayed 40 mg PO DAILY 03/12/24 12/19/24 12/19/24 History release tamsulosin 0.4 mg capsule 0.4 mg PO HS 03/12/24 12/19/24 12/19/24 History <Mirta Cabrera PA-C - Last Filed: 02/06/25 14:13> Allergies/Adverse Reactions: Allergies Allergy/AdvReac Type Severity Reaction Status Date / Time ISRA[place] Inhibitors Allergy Severe Unknown Verified 01/30/25 04:23 lisinopril Allergy Intermediate Itching Verified 01/30/25 04:23 <Mirta Cabrera PA-C - Last Filed: 02/06/25 14:13> Review of Systems Review of Systems: All systems reviewed & are unremarkable except as noted in HPI. <Mirta Cabrera PA-C - Last Filed: 02/06/25 14:13> All systems reviewed & are unremarkable except as noted in HPI and below <Mirta Cabrera PA-C - Last Filed: 02/06/25 14:13> [facility] Past Medical History Medical History: Medical History Seizure after head injury Anemia in CKD (chronic kidney disease) ESRD on dialysis M/W/F GERD (gastroesophageal reflux disease) Hypertension <Mirta Cabrera PA-C - Last Filed: 02/06/25 14:13> Family History Family History: Family History Father Diabetes mellitus Mother Hypertension <Mirta Cabrera PA-C - Last Filed: 02/06/25 14:13> Social History Social History: Social History Smoking status: Current every day smoker Tobacco type: cigarettes Second hand tobacco smoke exposure: Yes Alcohol intake: current Drinks per week: 1 Substance use: never Substance use type: does not use Other substance usage details: drinks vodka/beer Lack of Transportation: No Lack of Food: Never True Current Housing: I Have Housing Concerned About Future Housing: No Difficulty Paying Gas/Electric Bills: No Difficulty Paying for Meds: No Currently Unemployed: No Education: High School Diploma/GED Difficulty w/ Childcare or Family Care: No Spiritual care concerns: No <Mirta Cabrera PA-C - Last Filed: 02/06/25 14:13> Exam Narrative: GENERAL: Elderly, thin, chronically ill appearing, non-toxic, in no acute distress. HEAD: Normocephalic, atraumatic. EYES: PERRL/EOMI, conjunctivae clear bilaterally. No nystagmus. NECK: Supple. No meningeal signs. RESPIRATORY: Airway patent, respirations nonlabored. Clear to auscultation bilaterally, no rales, rhonchi, wheezing. CARDIOVASCULAR: Regular rate and rhythm without murmurs, rubs, or gallops. Radial pulses 2+ and equal bilaterally. MUSCULOSKELETAL: Moves all extremities. No gross deformities. Long arm cast LUE SKIN: Warm, dry, normal color. No rashes. NEURO: A&O X3. Follows commands. Intermittent spasms to L lower face/mouth, some dysarthria associated when twitching is occurring. CN II-XII otherwise intact. No facial droop or facial asymmetry. Sensation grossly intact. No ataxic movements. Strength 5/5 in upper and lower extremities bilaterally. Equal english instructor strength bilaterally. PSYCHIATRIC: Appropriate mood and affect. Normal interaction. <Mirta Cabrera PA-C - Last Filed: 02/06/25 14:13> Course HYPOID GEAR GENERATOR/PA Physician Supervision This visit was performed by both a physician and an APC; I performed all aspects of the medical decision making component of this evaluation as documented. <Julio Frazier MD - Last Filed: 02/06/25 12:55> Vital Signs Vital signs: Vital Signs Temperature 98.3 F 02/06/25 09:05 Pulse Rate 67 02/06/25 09:05 Respiratory Rate 24 H 02/06/25 09:05 Blood Pressure 193/100 H 02/06/25 09:05 Pulse Oximetry 100 02/06/25 09:05 Oxygen Delivery Room Air 02/06/25 09:05 Temperature 98.3 F 02/06/25 09:05 Pulse Rate 73 02/06/25 11:27 Respiratory Rate 14 02/06/25 11:27 Blood Pressure 186/105 H 02/06/25 11:27 Pulse Oximetry 100 02/06/25 11:27 Oxygen Delivery Room Air 02/06/25 09:37 <Mirta Cabrera PA-C - Last Filed: 02/06/25 14:13> Vital Signs Temperature 98.3 F 02/06/25 09:05 Pulse Rate 67 02/06/25 09:05 Respiratory Rate 24 H 02/06/25 09:05 Blood Pressure 193/100 H 02/06/25 09:05 Pulse Oximetry 100 02/06/25 09:05 Oxygen Delivery Room Air 02/06/25 09:05 Temperature 98.3 F 02/06/25 09:05 Pulse Rate 73 02/06/25 11:27 Respiratory Rate 14 02/06/25 11:27 Blood Pressure 186/105 H 02/06/25 11:27 Pulse Oximetry 100 02/06/25 11:27 Oxygen Delivery Room Air 02/06/25 09:37 <Julio Frazier MD - Last Filed: 02/06/25 12:55> MDM MDM Narrative Medical decision making narrative: Patient presented to ED with seizure-like began this morning. History of similar seizure-like activity in November of this year and was admitted here. History of end-stage renal disease on hemodialysis Wednesdays. Did not receive dialysis yesterday. Last treatment was on Wednesday. Patient hypertensive upon arrival. History of this. He does have intermittent twitching and spasms of the left side of his face/mouth upon my evaluation with some difficulty speaking when the twitching is occurring. Otherwise appears to be neurologically intact. No other appreciable focal deficits. History of similar presentations in the past. Given IV Valium for this which he did respond to well last time. Also given loading dose of Keppra. On re-evaluation, twitching does seem to be improved. Speech is improved. Again no other focal deficits. CT brain without acute abnormalities. Chest x-ray is clear. Laboratory studies with chronic anemia, hemoglobin 7.9. Appears fairly consistent with previous records. CMP with numerous abnormalities. Creatinine up to 15.2. Baseline per records around 8-10. History of end-stage renal disease. Patient is hyperkalemic to 6.1. There are some peaked T-waves identified on EKG. Blood sugar on CMP low at 47. Given amp of D50. Will treat for hyperkalemia although patient will require more urgent dialysis for definitive management of this. Given calcium gluconate, albuterol, Lasix, Lokelma Lactic acid within normal range at 0.9. Ethanol negative. Patient does have history of alcoholism, but denies history of alcoholic withdrawal seizures. He states he last had a beer last night. Discussed case with Dr. Arguello, nephrology, recommended discussing with Dr. Deluca as this is his patient, otherwise will consult here. I did speak to Dr. Deluca, unable to see patient. Updated Dr. Arguello of this. Will arrange for dialysis. Discussed case with Dr. Otero, neurology, will consult regarding seizure activity Discussed case with Jaja Miller NP hospitalist, accepted patient for admission. Patient in agreement w/ plan. <Mirta Cabrera PA-C - Last Filed: 02/06/25 14:13> Differential Diagnosis Differential Diagnosis: sz, cva/tia, electrolyte derangement, intracranial bleed, tumor, alcohol withdrawal seizure <AYLIN Rice Last Filed: 02/06/25 14:13> Medical Records I have reviewed the following patient records and this information was taken into consideration when formulating the assessment and plan.: previous labs, previous ER visits, previous hospitalizations and previous clinic visits <Mirta Cabrera PA-C - Last Filed: 02/06/25 14:13> Lab Data MDM Lab Attestation statement: I personally reviewed the patient's lab results. <Mirta Cabrera PA-C - Last Filed: 02/06/25 14:13> Result diagrams: 02/06/25 10:41 02/06/25 10:36 <AYLIN Rice Last Filed: 02/06/25 14:13> Labs: Lab Results 02/06/25 02/06/25 02/06/25 Range/Units 10:36 10:41 11:49 WBC 13.5 H (4.5-10.0) K/mm3 RBC 2.57 L (4.6-6.20) M/mm3 Hgb 7.9 L (14.0-18.0) g/dL Hct 24.1 L (42.0-52.0) % MCV 93.8 (80-100) fl MCH 30.7 (26-34) pg MCHC 32.8 (32-36) g/dl RDW 17.1 H (11.5-14.5) % Plt Count 285 (150-375) k/mm3 MPV 10.0 (7.4-10.4) fl Immature Gran % (Auto) 0.4 (0-0.5) % Neut % (Auto) 74.3 H (45.5-73.1) % Lymph % (Auto) 14.9 L (18.3-44.2) % Evangeline % (Auto) 7.0 (2.6-8.5) % Eos % (Auto) 3.0 (0-4.4) % Baso % (Auto) 0.4 (0.2-1.2) % Lymph # (Auto) 2.01 (0.9-3.2) K/mm3 Evangeline # (Auto) 0.9 H (0.1-0.6) K/mm3 Eos # (Auto) 0.4 H (0-0.3) K/mm3 Baso # (Auto) 0.1 (0.0-0.1) K/mm3 Abs Immat Gran (auto) 0.05 H (0.00-0.031) K/mm3 Absolute Neuts (auto) 10.1 H (1.3-6.7) K/mm3 Absolute Nucleated RBC 0.000 (0.0-0.012) K/mm3 Nucleated RBC % 0.0 (0.0-0.2) % PT 12.5 (11.1-14.7) Seconds INR 0.9 APTT 25.2 (22.3-36.8) Seconds Sodium 130 L (137-145) mmol/L Potassium 6.1 H* (3.4-5.0) mmol/L Chloride 93 L (98-107) mmol/L Carbon Dioxide 21 L (22-30) mmol/L Anion Gap 16 H (4-12) mmol/L BUN 52 H D (9-20) mg/dL Creatinine 15.32 H (0.7-1.3) mg/dL Estim Creat Clear Calc 4 ml/min Estimated GFR 3 L (59 - ) Glucose 47 L* (65-110) mg/dL POC Capillary Glucose 117 H (65-105) mg/dl Lactic Acid 0.8 (0.7-2.0) mmol/L Calcium 9.2 (8.4-10.2) mg/dL Magnesium 2.3 (1.6-2.3) mg/dL Total Bilirubin 0.8 (0.2-1.3) mg/dL AST 25 (17-59) U/L ALT 11 (6-50) U/L Alkaline Phosphatase 106 (38-126) U/L Total Protein 7.8 (6.3-8.2) g/dL Albumin 4.2 (3.5-5.1) g/dL Ethyl Alcohol < 10 (<10) mg/dL <Mirta Cabrera PA-C - Last Filed: 02/06/25 14:13> Lab Results 02/06/25 02/06/25 02/06/25 Range/Units 10:36 10:41 11:49 WBC 13.5 H (4.5-10.0) K/mm3 RBC 2.57 L (4.6-6.20) M/mm3 Hgb 7.9 L (14.0-18.0) g/dL Hct 24.1 L (42.0-52.0) % MCV 93.8 (80-100) fl MCH 30.7 (26-34) pg MCHC 32.8 (32-36) g/dl RDW 17.1 H (11.5-14.5) % Plt Count 285 (150-375) k/mm3 MPV 10.0 (7.4-10.4) fl Immature Gran % (Auto) 0.4 (0-0.5) % Neut % (Auto) 74.3 H (45.5-73.1) % Lymph % (Auto) 14.9 L (18.3-44.2) % Evangeline % (Auto) 7.0 (2.6-8.5) % Eos % (Auto) 3.0 (0-4.4) % Baso % (Auto) 0.4 (0.2-1.2) % Lymph # (Auto) 2.01 (0.9-3.2) K/mm3 Evangeline # (Auto) 0.9 H (0.1-0.6) K/mm3 Eos # (Auto) 0.4 H (0-0.3) K/mm3 Baso # (Auto) 0.1 (0.0-0.1) K/mm3 Abs Immat Gran (auto) 0.05 H (0.00-0.031) K/mm3 Absolute Neuts (auto) 10.1 H (1.3-6.7) K/mm3 Absolute Nucleated RBC 0.000 (0.0-0.012) K/mm3 Nucleated RBC % 0.0 (0.0-0.2) % PT 12.5 (11.1-14.7) Seconds INR 0.9 APTT 25.2 (22.3-36.8) Seconds Sodium 130 L (137-145) mmol/L Potassium 6.1 H* (3.4-5.0) mmol/L Chloride 93 L (98-107) mmol/L Carbon Dioxide 21 L (22-30) mmol/L Anion Gap 16 H (4-12) mmol/L BUN 52 H D (9-20) mg/dL Creatinine 15.32 H (0.7-1.3) mg/dL Estim Creat Clear Calc 4 ml/min Estimated GFR 3 L (59 - ) Glucose 47 L* (65-110) mg/dL POC Capillary Glucose 117 H (65-105) mg/dl Lactic Acid 0.8 (0.7-2.0) mmol/L Calcium 9.2 (8.4-10.2) mg/dL Magnesium 2.3 (1.6-2.3) mg/dL Total Bilirubin 0.8 (0.2-1.3) mg/dL AST 25 (17-59) U/L ALT 11 (6-50) U/L Alkaline Phosphatase 106 (38-126) U/L Total Protein 7.8 (6.3-8.2) g/dL Albumin 4.2 (3.5-5.1) g/dL Ethyl Alcohol < 10 (<10) mg/dL <Julio Frazier MD - Last Filed: 02/06/25 12:55> Imaging Data Attestation: I personally reviewed and interpreted this imaging study as follows: <Mirta Cabrera PA-C - Last Filed: 02/06/25 14:13> Radiologist's impression: ITS Impressions Head CT 02/06/25 10:00 IMPRESSION: 1. No gross acute intracranial process. 2. Several chronic appearing findings including advanced diffuse chronic microvascular white matter changes. 3. For new onset or refractory seizure disorder, correlation with brain MRI recommended for optimal evaluation. Chest X-Ray 02/06/25 10:11 IMPRESSION: 1. No focal acute process. <Mirta Cabrera PA-C - Last Filed: 02/06/25 14:13> ITS Impressions Head CT 02/06/25 10:00 IMPRESSION: 1. No gross acute intracranial process. 2. Several chronic appearing findings including advanced diffuse chronic microvascular white matter changes. 3. For new onset or refractory seizure disorder, correlation with brain MRI recommended for optimal evaluation. Chest X-Ray 02/06/25 10:11 IMPRESSION: 1. No focal acute process. <Julio Frazier MD - Last Filed: 02/06/25 12:55> ECG Data EKG #1: Attestation: I personally reviewed and interpreted this ECG as follows: <Mirta Cabrera PA-C - Last Filed: 02/06/25 14:13> ECG completion date: 02/06/25 <Mirta Cabrera PA-C - Last Filed: 02/06/25 14:13> ECG completion time: 10:17 <Mirta Cabrera PA-C - Last Filed: 02/06/25 14:13> normal rate (66), sinus rhythm, non-specific ST changes and other (baseline artifact) <Mirta Cabrera PA-C - Last Filed: 02/06/25 14:13> Discharge Plan Discharge Clinical Impression: Hyperkalemia, ESRD on dialysis, Seizure-like activity, Hypoglycemia <Mirta Cabrera PA-C - Last Filed: 02/06/25 14:13> Patient Disposition: Still a Patient <Mirta Cabrera PA-C - Last Filed: 02/06/25 14:13> Condition: Stable <Mirta Cabrera PA-C - Last Filed: 02/06/25 14:13>
[2025-02-06 11:02] LABS: Estimated CRCL calculation 4 ml/min; Estimated Glomerular Filt Rate 3
[2025-02-06] MEDS: ALBUTEROL SULFATE NEB 2.5 MG/3 ML INH 10 MG INHALATION (11:15)
[2025-02-06] MEDS: FUROSEMIDE INJ 40 MG/4 ML VIAL 20 MG IV PUSH (11:50)
[2025-02-06] MEDS: THIAMINE HCL 200 MG/2 ML VIAL 100 MG IV PUSH (11:53)
[2025-02-06] MEDS: CALCIUM GLUC 1,000 MG/NS 50 ML 1,000 MG/50 ML BAG 100 MG IVPB (11:56)
[2025-02-06] MEDS: SODIUM ZIRCONIUM CYCLOSILICATE 10 GM POWD.PACK PO (11:56)
[2025-02-06 13:54] LABS: Add Urine Microscopic? YES; Appearance Urine Cloudy (Clear); Glucose Urine UA Negative (Negative); Leukocyte Esterase Ur 3+ LEU/UL (Negative); Nitrate Urine Negative (Negative); Specific Grav Ur 1.007 (1.001-1.035)
--- NOTE | 2025-02-06 15:40 | PM.CNNEP ---
Assessment and Plan Assessment and plan (1) End stage renal disease: Code(s): N18.6 - End stage renal disease Status: Chronic Assessment and Plan: HD today plan HD tomorrow as well continue outpatient schedule of Wednesday/Wednesdays/Wednesday while hospitalized follow electrolytes, volume status, and clearance outpatient dialysis clinic = [facility] primary [employer] = Dr. Deluca (2) Hyperkalemia: Code(s): E87.5 - Hyperkalemia Status: Acute Assessment and Plan: as noted by admission labs due to missed dialysis treatment on Wednesday HD should correct follow repeat K+ levels (3) Seizure-like activity: Code(s): R56.9 - Unspecified convulsions Status: Acute Assessment and Plan: noted on last hospital admission in November 2024 started on Keppra at that time due to alcohol withdrawal versus primary seizure d/o versus hypoglycemia versus other(?) extensive work-up and evaluation noted on November 2024 admission: Head CT negative (this admission as well as last) Head/neck CTA noted: - irregularity within the right vertebral artery at the level of C5-C6 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 - marked atherosclerotic vascular calcification of the intracranial carotid artery causing moderate stenosis - no LVO Brain MRI (12/20/24): - old lacunar infarcts at the bilateral thalami, basal ganglia and internal capsules - no acute intracranial process or abnormal enhancing brain lesions - extensive periventricular predominant nonspecific white matter T2 hyperintensity consistent with chronic small vessel ischemic disease on ASA/plavix/statin Neurology consulted (4) UTI (urinary tract infection): Code(s): N39.0 - Urinary tract infection, site not specified Status: Inactive Assessment and Plan: admission UA suggestive follow culture data on antibiotics (5) Anemia: Code(s): D64.9 - Anemia, unspecified Status: Chronic Assessment and Plan: due to ESRD Epogen with HD follow trend of H/H (6) Hypertension: Qualifiers: Hypertension type: secondary to other renal disorders Qualified Code(s): I15.1 - Hypertension secondary to other renal disorders Code(s): I10 - Essential (primary) hypertension Status: Chronic Assessment and Plan: resume home medications hydralazine PRN follow trend of hemodynamics - (7) Hypoglycemia: Code(s): E16.2 - Hypoglycemia, unspecified Status: Acute Assessment and Plan: incidentally noted in the ER resolved (8) Alcohol abuse: Code(s): F10.10 - Alcohol abuse, uncomplicated Status: Acute Assessment and Plan: known history [facility] protocol start thiamine and folate I will continue to follow the patient with you while he remains hospitalized and make further recommendations as deemed necessary. Thank you for allowing me to participate in the care of this patient. History of Present Illness Reason for Consult Consult date: 02/06/25 Reason for consult: end stage renal disease Chief Complaint Chief complaint: hyperkalemia,esrd on gd,sz like activity History of Present Illness Narrative: The patient is a 69-year-old male with a past medical history as outlined below who presented to [facility] Emergency Room due to seizure activity/seizures. Most of the information that I have obtained is from review of the electronic medical record as well as discussion with the other physician/nurses involved in the patient's care as difficult for the patient to relate the events and issues that led to his presentation to the emergency room. Per EMS, patient began having convulsions on the morning of amdission and family called for EMS. The patient was reportedly twitching and having jerking of the left hand and left side of his face along with difficulty speaking. He had a similar presentation to [facility] in November of this year and was ultimately started on Keppra after Neurology evaluation. At the time of his evaluation, he denied any headaches, vision changes, focal numbness or weakness. He denies having any ill symptoms or pain. He has a cast in place on his left arm due to recent fracture. Given these symptoms as mentioned, he presented to the ER for further assessment. Work-up and evaluiation in the ER demonstrated the patient to be hemodynamically stable (if not hypertensive) but afebrile. While in the ER, he was noted to have intermittent twitching and spasms of the left side of his face/mouth with some difficulty speaking when the twitching was occurring but otherwise seemed to be neurologically intact with no other focal deficits. He was given IV Valium as well as a loading dose of Keppra. On re-evaluation, twitching as well as his speech has improved. Testing done in was notable for a CT brain without acute abnormalities, clear chest x-ray, mild leukocytosis, chronic anemia with a hemoglobin 7.9 normal platelet, elevated potassium at 6.1, hypoglycemia with blood glucose of 47 and no other critical electrolyte abnormalities with a normal lactic acid and alcohol levele. His EKG showed some peaked T-waves identified. He was given medical management for his elevated potassium (calcium gluconate, albuterol, Lasix, Lokelma). Given his clinical presentation and laboratory abnormalities, he was admitted to the hospital for further evaluation. Renal consultation was requested due to his end-stage renal disease. The patient normally dialyzes on a Wednesday, Wednesday, Wednesday dialysis schedule at [facility] under the care of Dr. Ralf Deluca. His last dialysis treatment was on 02/02/25.. As far as I am aware, his dialysis treatment on that day was otherwise uneventful. As far as I am aware, the patient is compliant with his dialysis treatments although his known history of alcohol abuse can be an issue/problem at times. Currently, at the time my evaluation, he appears to be tolerating his dialysis treatment reasonably well (seen on HD at 3:30pm). Review of Systems Review of Systems: As per HPI. 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 difficile colitis 11/2024 Chronic alcoholism Seizure after head injury Anemia in CKD (chronic kidney disease) ESRD on dialysis M/W/F with tunneled dialysis catheter in the right upper chest GERD (gastroesophageal reflux disease) Hypertension Surgical History Surgical History No history of previous surgery Family History Family History Father Diabetes mellitus Mother Hypertension Social History Social History Social History: The patient's lives with his sister. The patient states that he has 2 sons. 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 He smokes every day and has smoked up to a pack of cigarettes a week since he was a teenager. He reports that he used to drink a pt every other day during the week and a pt every day on the weekend but has not drink any alcohol except for 1 beer on 02/05/2025. Code status: Full code Surrogate decision maker: Sister Smoking status: Current every day smoker Tobacco type: cigarettes Second hand tobacco smoke exposure: Yes Alcohol intake: current Drinks per week: 10 Substance use: never Substance use type: does not use Other substance usage details: drinks vodka/beer Lack of Transportation: YES Lack of Food: Never True Current Housing: I Have Housing Concerned About Future Housing: No Difficulty Paying Gas/Electric Bills: YES Difficulty Paying for Meds: No Currently Unemployed: No Education: High School Diploma/GED Difficulty w/ Childcare or Family Care: No Spiritual care concerns: No Meds Home Medications and Allergies Home Medications ?Medication ?Instructions ?Recorded ?Confirmed ?Type acetaminophen 500 mg capsule 500 mg PO Q6H PRN pain 03/12/24 02/06/25 History amlodipine 10 mg tablet 10 mg PO DAILY 03/12/24 02/06/25 History famotidine 20 mg tablet 20 mg PO DAILY 03/12/24 02/06/25 History finasteride 5 mg tablet 5 mg PO DAILY 03/12/24 02/06/25 History pantoprazole 40 mg tablet,delayed 40 mg PO DAILY 03/12/24 02/06/25 History release tamsulosin 0.4 mg capsule 0.4 mg PO HS 03/12/24 02/06/25 History aspirin 81 mg tablet,delayed 81 mg PO QAM #30 tabs 12/26/24 02/06/25 Rx release atorvastatin 40 mg tablet 40 mg PO DAILY #30 tabs 12/26/24 02/06/25 Rx clopidogrel 75 mg tablet 75 mg PO QAM #30 tabs 12/26/24 02/06/25 Rx folic acid 1 mg tablet 1 mg PO DAILY #30 tabs 12/26/24 02/06/25 Rx levetiracetam 500 mg tablet 500 mg PO Q12HR #60 tabs 12/26/24 02/06/25 Rx (Keppra) metoprolol tartrate 50 mg tablet 50 mg PO Q12HR #60 tabs 12/26/24 02/06/25 Rx thiamine HCl (vitamin B1) 100 mg 100 mg PO QAM #30 tabs 12/26/24 02/06/25 Rx tablet (Vitamin B-1) hydrocodone 5 mg-acetaminophen 325 1 tablet PO Q6H PRN pain #20 tabs 01/06/25 02/06/25 Rx mg tablet Allergies Allergy/AdvReac Type Severity Reaction Status Date / Time [place] Inhibitors Allergy Severe Unknown Verified 02/06/25 21:08 lisinopril Allergy Intermediate Itching Verified 02/06/25 21:08 Vital Signs Vital Signs Temp Pulse Resp BP Pulse Ox O2 Del Method 02/06/25 15:30 77 184/109 H 02/06/25 15:15 64 202/107 H 02/06/25 15:11 64 204/107 H 02/06/25 15:01 98.4 F 68 18 196/105 H 94 02/06/25 14:29 68 19 181/97 H 100 02/06/25 11:27 73 14 186/105 H 100 02/06/25 09:37 100 Room Air 02/06/25 09:05 98.3 F 67 24 H 193/100 H 100 Room Air Exam Narrative: GENERAL APPEARANCE: elderly but well developed well nourished male in no acute distress HEENT: normocephalic, atraumatic, normal conjunctiva and sclera, nares patient NECK: no lymphadenopathy, thyromegaly, or JVD MOUTH: normal lips, teeth, and gums CARDIOVASCULAR: RRR, normal S1 and S2, no rub RESPIRATORY: clear to auscultation ABDOMEN: soft, nontender, nondistended, positive bowel sounds present EXTREMITIES: no evidence of cyanosis, clubbing, or edema; LUE cast in place NEUROLOGICAL: alert and oriented x 2 - 3; no focal deficits noted Results Lab Results 02/11/25 05:04 02/11/25 05:04 Lab results: Most recent lab results Calcium 9.2 mg/dL (8.4-10.2) 02/06/25 10:36 Magnesium 2.3 mg/dL (1.6-2.3) 02/06/25 10:36
[2025-02-06] MEDS: EPOETIN ALFA-EPBX 10,000 UNITS/ML VIAL 10000 UNITS IV PUSH (16:36)
--- NOTE | 2025-02-06 18:59 | ADMGEN ---
This patient, Niesha Ceja, was admitted to Medical Room 252-. Patient/family oriented to hospital policies and general routines including ID bracelet, bed and alarms, visiting hours, pain management, procedures, bathroom and other care routines, personal items, smoking policy, room service/diet, and visiting hours. Information on how to activate the Rapid Response Team has been discussed. Patient/Family are encouraged to report perceived risks to care and to ask questions if they do not understand what they are told or what they should do.
[2025-02-06 20:50] LABS: Anion Gap 7 mmol/L (4-12); Blood Urea Nitrogen 22 mg/dL (9-20); Calcium 8.9 mg/dL (8.4-10.2); Carbon Dioxide 30 mmol/L (22-30); Chloride 98 mmol/L (98-107); Estimated CRCL calculation 8 ml/min; Estimated Glomerular Filt Rate 7; Glucose 129 mg/dL (65-110); Potassium 3.8 mmol/L (3.4-5.0); Sodium 135 mmol/L (137-145)
--- NOTE | 2025-02-06 22:10 | PM.IMHP2 ---
H&P: HPI History of Present Illness Date/Time: 02/06/25 22:10 Chief Complaint: ?convulsions? Narrative: 69-year-old male with a past medical history of alcohol abuse, end-stage renal disease on hemodialysis Wednesday, anemia of chronic disease, GERD, essential hypertension and seizures who presented to the ER after having seizure-like activity at home. The patient was reportedly twitching and having jerking of the left hand and left side of his face. He was having difficulty speaking. He was admitted hospital December 19 through for similar symptoms and was evaluated by Neurology at that time started on Keppra. He was evaluated by Neurology and MRI without contrast was performed which demonstrated old lacunar infarcts at bilateral thalami, basal ganglia and internal capsules. It also demonstrated extensive periventricular nonspecific white matter T2 hyperintensity consistent with chronic small-vessel ischemic disease. He was also diagnosed with C diff during that hospitalization and treated with Dificid. He the patient could not provide much information at the time of my evaluation. He was alert oriented to self and could states some of his past medical history. He stated that he was unable to go to dialysis due to his son having is own doctor's appointment in could not taken to the dialysis center. The patient states that he quit drinking about a week ago and was only had 1 beer since that time. He denies having any symptoms of alcohol withdrawal tremors her year disability. He states that he has been taking his home medications as directed as far as he knows. He a.m. initially was providing me his home address instead of telling me that he was at a hospital but did correct himself that he was at a hospital. He thought it was at a hospital in [place] and he knew that the month was January but thought the year was 2025. He could not name the president. He denies having any ill symptoms or pain. He has a cast in place on his left arm due to recent fracture. He reports he has been on dialysis for about a year and is post to go to dialysis Wednesday. The patient reports that he still produces urine once or twice a day. He denies any dysuria or urinary incontinence he. Review of Systems Review of Systems: Review of systems unreliable she due to patient's confusion. 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 difficile colitis 11/2024 Chronic alcoholism Seizure after head injury Anemia in CKD (chronic kidney disease) ESRD on dialysis M/W/F with tunneled dialysis catheter in the right upper chest GERD (gastroesophageal reflux disease) Hypertension Surgical History Surgical History (Updated 02/07/25 @ 04:48 by Marianna Salas DO) No history of previous surgery Family History Family History Father Diabetes mellitus Mother Hypertension Social History Social History (Updated 02/07/25 @ 04:50 by Marianna Salas DO) Social History: The patient's lives with his sister. The patient states that he has 2 sons. 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 He smokes every day and has smoked up to a pack of cigarettes a week since he was a teenager. He reports that he used to drink a pt every other day during the week and a pt every day on the weekend but has not drink any alcohol except for 1 beer on 02/05/2025. Code status: Full code Surrogate decision maker: Sister Smoking status: Current every day smoker Tobacco type: cigarettes Second hand tobacco smoke exposure: Yes Alcohol intake: current Drinks per week: 10 Substance use: never Substance use type: does not use Other substance usage details: drinks vodka/beer Lack of Transportation: YES Lack of Food: Never True Current Housing: I Have Housing Concerned About Future Housing: No Difficulty Paying Gas/Electric Bills: YES Difficulty Paying for Meds: No Currently Unemployed: No Education: High School Diploma/GED Difficulty w/ Childcare or Family Care: No Spiritual care concerns: No Meds Home Medications and Allergies Home Medications ?Medication ?Instructions ?Recorded ?Confirmed ?Type acetaminophen 500 mg capsule 500 mg PO Q6H PRN pain 03/12/24 02/06/25 History amlodipine 10 mg tablet 10 mg PO DAILY 03/12/24 02/06/25 History famotidine 20 mg tablet 20 mg PO DAILY 03/12/24 02/06/25 History finasteride 5 mg tablet 5 mg PO DAILY 03/12/24 02/06/25 History pantoprazole 40 mg tablet,delayed 40 mg PO DAILY 03/12/24 02/06/25 History release tamsulosin 0.4 mg capsule 0.4 mg PO HS 03/12/24 02/06/25 History aspirin 81 mg tablet,delayed 81 mg PO QAM #30 tabs 12/26/24 02/06/25 Rx release atorvastatin 40 mg tablet 40 mg PO DAILY #30 tabs 12/26/24 02/06/25 Rx clopidogrel 75 mg tablet 75 mg PO QAM #30 tabs 12/26/24 02/06/25 Rx folic acid 1 mg tablet 1 mg PO DAILY #30 tabs 12/26/24 02/06/25 Rx levetiracetam 500 mg tablet 500 mg PO Q12HR #60 tabs 12/26/24 02/06/25 Rx (Keppra) metoprolol tartrate 50 mg tablet 50 mg PO Q12HR #60 tabs 12/26/24 02/06/25 Rx thiamine HCl (vitamin B1) 100 mg 100 mg PO QAM #30 tabs 12/26/24 02/06/25 Rx tablet (Vitamin B-1) hydrocodone 5 mg-acetaminophen 325 1 tablet PO Q6H PRN pain #20 tabs 01/06/25 02/06/25 Rx mg tablet Allergies Allergy/AdvReac Type Severity Reaction Status Date / Time [place] Inhibitors Allergy Severe Unknown Verified 02/06/25 21:08 lisinopril Allergy Intermediate Itching Verified 02/06/25 21:08 Vital Signs Vital Signs - 24 hr 02/06/25 09:05 02/06/25 09:37 02/06/25 11:27 Temperature 98.3 F Pulse Rate 67 73 Respiratory Rate 24 H 14 Blood Pressure 193/100 H 186/105 H Pulse Oximetry 100 100 100 Oxygen Delivery Room Air Room Air 02/06/25 14:29 02/06/25 15:01 02/06/25 15:11 Temperature 98.4 F Pulse Rate 68 68 64 Respiratory Rate 19 18 Blood Pressure 181/97 H 196/105 H 204/107 H Pulse Oximetry 100 94 Oxygen Delivery 02/06/25 15:15 02/06/25 15:30 02/06/25 15:45 Temperature Pulse Rate 64 77 77 Respiratory Rate Blood Pressure 202/107 H 184/109 H 150/88 H Pulse Oximetry Oxygen Delivery 02/06/25 16:00 02/06/25 16:15 02/06/25 16:30 Temperature Pulse Rate 74 75 87 Respiratory Rate Blood Pressure 163/91 H 152/90 H 165/103 H Pulse Oximetry Oxygen Delivery 02/06/25 16:45 02/06/25 17:00 02/06/25 17:15 Temperature Pulse Rate 81 75 81 Respiratory Rate Blood Pressure 175/101 H 164/98 H 164/112 H Pulse Oximetry Oxygen Delivery 02/06/25 17:30 02/06/25 17:45 02/06/25 18:00 Temperature Pulse Rate 75 82 80 Respiratory Rate Blood Pressure 172/104 H 190/105 H 184/111 H Pulse Oximetry Oxygen Delivery 02/06/25 18:15 02/06/25 18:19 02/06/25 18:26 Temperature 98.6 F Pulse Rate 78 78 79 Respiratory Rate 16 Blood Pressure 185/78 H 184/110 H 173/100 H Pulse Oximetry 95 Oxygen Delivery 02/06/25 20:18 Temperature 98.2 F Pulse Rate 125 H Respiratory Rate 17 Blood Pressure 183/88 H Pulse Oximetry 100 Oxygen Delivery Exam Narrative: Weight 67.5 kg BMI 20.2 Const: Other: No acute distress, he well-developed well-nourished HENMT: Other: He head is normocephalic atraumatic, mucous membranes are tacky, no oral pharyngeal erythema Eyes: Other: Positive conjunctival pallor, no scleral icterus, pupils are equal and reactive Neck: Other: No JVD, no lymphadenopathy Chest: Other: Tunneled dialysis catheter right upper chest Resp: Other: Clear to auscultation bilaterally, no increased work of breathing Cardio: Other: Regular rate, regular rhythm, 2+ bilateral radial and pedal pulses GI: Other: Soft, nontender, nondistended, normoactive bowel sounds : Other: Suprapubic tenderness noted on exam Skin: Other: No jaundice, no pallor Neuro: Other: Alert oriented to self and month confused as to the year and he current location, he unable to name the president, she no he localizing neurologic deficits noted she Extrem: Other: No clubbing, cyanosis or edema Psych: Other: She confused but calmed pleasant and cooperative, he poor insight Results Labs Labs: Short CBC 02/06/25 Range/Units 10:41 WBC 13.5 H (4.5-10.0) K/mm3 Hgb 7.9 L (14.0-18.0) g/dL Hct 24.1 L (42.0-52.0) % Plt Count 285 (150-375) k/mm3 BMP 02/06/25 02/06/25 10:36 20:31 Sodium 130 L 135 L Potassium 6.1 H* 3.8 Chloride 93 L 98 Carbon Dioxide 21 L 30 BUN 52 H D 22 H D Creatinine 15.32 H 8.09 H Glucose 47 L* 129 H Calcium 9.2 8.9 Liver Function 02/06/25 Range/Units 10:36 Total Bilirubin 0.8 (0.2-1.3) mg/dL AST 25 (17-59) U/L ALT 11 (6-50) U/L Alkaline Phosphatase 106 (38-126) U/L Albumin 4.2 (3.5-5.1) g/dL Urine 02/06/25 Range/Units 13:28 Urine Color Yellow (Yellow) Urine Appearance Cloudy H (Clear) Urine pH 8.5 (5.0-9.0) Ur Specific [place] 1.007 (1.001-1.035) Urine Protein 3+ H (Negative) mg/dL Urine Glucose (UA) Negative (Negative) mg/dL Laboratory Tests 02/06/25 10:41 02/06/25 20:31 02/06/25 02/06/25 02/06/25 10:36 10:41 11:49 WBC 13.5 H RBC 2.57 L Hgb 7.9 L Hct 24.1 L MCV 93.8 MCH 30.7 MCHC 32.8 RDW 17.1 H Plt Count 285 MPV 10.0 Immature Gran % (Auto) 0.4 Neut % (Auto) 74.3 H Lymph % (Auto) 14.9 L Lamb % (Auto) 7.0 Eos % (Auto) 3.0 Baso % (Auto) 0.4 Lymph # (Auto) 2.01 Lamb # (Auto) 0.9 H Eos # (Auto) 0.4 H Baso # (Auto) 0.1 Abs Immat Gran (auto) 0.05 H Absolute Neuts (auto) 10.1 H Absolute Nucleated RBC 0.000 Nucleated RBC % 0.0 PT 12.5 INR 0.9 APTT 25.2 Sodium 130 L Potassium 6.1 H* Chloride 93 L Carbon Dioxide 21 L Anion Gap 16 H BUN 52 H D Creatinine 15.32 H Estim Creat Clear Calc 4 Estimated GFR 3 L Glucose 47 L* POC Capillary Glucose 117 H Lactic Acid 0.8 Calcium 9.2 Magnesium 2.3 Total Bilirubin 0.8 AST 25 ALT 11 Alkaline Phosphatase 106 Total Protein 7.8 Albumin 4.2 Urine Color Urine Appearance Urine pH Ur Specific [place] Urine Protein Urine Glucose (UA) Urine Ketones Ur Blood (Man) Urine Nitrate Urine Bilirubin Urine Urobilinogen Leukocyte Esterase Rfl Urine RBC Urine WBC Ur Squamous Epith Cells Urine Bacteria Urine Casts Ethyl Alcohol < 10 02/06/25 02/06/25 02/06/25 13:28 20:31 22:27 WBC RBC Hgb Hct MCV MCH MCHC RDW Plt Count MPV Immature Gran % (Auto) Neut % (Auto) Lymph % (Auto) Lamb % (Auto) Eos % (Auto) Baso % (Auto) Lymph # (Auto) Lamb # (Auto) Eos # (Auto) Baso # (Auto) Abs Immat Gran (auto) Absolute Neuts (auto) Absolute Nucleated RBC Nucleated RBC % PT INR APTT Sodium 135 L Potassium 3.8 Chloride 98 Carbon Dioxide 30 Anion Gap 7 BUN 22 H D Creatinine 8.09 H Estim Creat Clear Calc 8 Estimated GFR 7 L Glucose 129 H POC Capillary Glucose 149 H Lactic Acid Calcium 8.9 Magnesium Total Bilirubin AST ALT Alkaline Phosphatase Total Protein Albumin Urine Color Yellow Urine Appearance Cloudy H Urine pH 8.5 Ur Specific [place] 1.007 Urine Protein 3+ H Urine Glucose (UA) Negative Urine Ketones Negative Ur Blood (Man) 1+ H Urine Nitrate Negative Urine Bilirubin Negative Urine Urobilinogen 0.2 Leukocyte Esterase Rfl 3+ H Urine RBC 6-10 H Urine WBC >100 H Ur Squamous Epith Cells None seen Urine Bacteria 2+ H Urine Casts 3-5 Ethyl Alcohol Impressions Head CT 02/06/25 10:00 IMPRESSION: 1. No gross acute intracranial process. 2. Several chronic appearing findings including advanced diffuse chronic microvascular white matter changes. 3. For new onset or refractory seizure disorder, correlation with brain MRI recommended for optimal evaluation. Chest X-Ray 02/06/25 10:11 IMPRESSION: 1. No focal acute process. EKG:Test Date: 2025-02-06 10:17:32 Measurements Intervals [place] Rate: 66 P: 67 TN: 195 QRS: 15 QRSD: 78 T: 56 QT: 422 QTc: 444 Interpretive Statements SINUS RHYTHM CANNOT R/O SEPTAL INFARCT, AGE INDETERMINATE NONSPECIFIC ST & T-WAVE ABNORMALITY- INF/LAT LEADS BASELINE ARTIFACT- II, III, AVR, AVL, AVF, V1-V6 ABNORMAL ECG Compared to ECG 12/19/2024 12:07:01 NO SIGNIFICANT CHANGE Attestation: I personally reviewed all lab results ECG Attestation: I personally reviewed and interpreted this ECG as follows: (Interpretation affected by baseline artifact otherwise agree with cardiology interpretation) Assessment and Plan Assessment and plan (1) Seizure-like activity: Code(s): R56.9 - Unspecified convulsions Status: Acute (2) Hyperkalemia: Code(s): E87.5 - Hyperkalemia Status: Acute (3) ESRD on dialysis: Code(s): N18.6 - End stage renal disease; Z99.2 - Dependence on renal dialysis Status: Acute (4) Hypoglycemia: Code(s): E16.2 - Hypoglycemia, unspecified Status: Acute (5) Hypertension: Qualifiers: Hypertension type: secondary to other renal disorders Qualified Code(s): I15.1 - Hypertension secondary to other renal disorders Code(s): I10 - Essential (primary) hypertension Status: Chronic (6) Alcohol abuse: Code(s): F10.10 - Alcohol abuse, uncomplicated Status: Acute (7) UTI (urinary tract infection): Qualifiers: Urinary tract infection type: acute cystitis Hematuria presence: without hematuria Qualified Code(s): N30.00 - Acute cystitis without hematuria Code(s): N39.0 - Urinary tract infection, site not specified Status: Acute Plan The patient presented to the ER after eating seizure-like activity. Cause for seizure is uncertain. Patient does have a history of seizures in the past with significant history of prior alcoholism and he I also was incidentally found to be hypoglycemic on arrival to the ER. So primary seizure disorder versus alcohol withdrawal versus hypoglycemia for active cause of seizure-like activity. He patient has not had any recurrence of seizure since admission to the hospital. He did receive 1 IV dose of Keppra on arrival to the ER and a dose of diazepam. Is unclear if the patient has been taking his seizure medications as directed. Will resume the patient's home Keppra and place patient on seizure precautions. Neurology was consult from the ER. The patient is not having any obvious symptoms of alcohol withdrawal he does not have any active tremors diaphoresis or evidence of hallucination. Will monitor CIWA scores. Will continue home thiamin and folic acid supplementation. Will add benzodiazepines if patient's CIWA score becomes elevated. Will monitor Accu-Cheks to ensure stability for the next 24 hours and will provide adequate access to nutrition. Will repeat CBC in a.m.. The patient did have marked hyperglycemia and metabolic acidosis due to missing hemodialysis. The patient underwent emergent hemodialysis he he and I evaluated the patient after he returned to the medical floor. His repeat electrolyte panel had normalized to more expected values drip patient with compensated he end-stage renal disease. Potassium is now normalized. Nephrology has been consulted for dialysis management. The patient did receive IV insulin dextrose and calcium carbonate in the ER will is Lokelma. Will repeat electrolyte panel in a.m.. Patient's blood pressure was elevated on arrival to the medical floor but patient had missed his evening doses of antihypertensive. Will resume patient's home metoprolol, amlodipine . Patient did have an abnormal urinalysis and does have significant suprapubic tenderness. He does have a history of he polymicrobial UTI recently with 1 of the organisms being he she Pseudomonas. Patient has been placed on cefepime after review of prior microbiology. White count was elevated in the ER and a component of patient's confusion could be related to underlying UTI. Will he continued cefepime and await urine cultures. Blood cultures are also pending. Patient has been admitted as observation status. MEDICAL DECISION MAKING NARRATIVE -Spoke with the ED provider in detail regarding patient's evaluation, workup and management -Patient seen and examined at bedside -Collaborated with patient's nurse at the bedside in detail and addressed all concerns -Labs, electrolytes, radiology, investigations and test results personally reviewed and interpreted unless otherwise specified -ED/Consult/Nursing/Ancilliary notes on the chart reviewed and appreciated -applicable past medical records and labs were reviewed and unless stated otherwise. -Spoke with patient at bedside and diagnosis, plan of care was discussed and questions answered. Hospitalist MIPS Advance Care Plan I have confirmed that the patient's Advanced Care Plan is present, code status is documented, or surrogate decision maker is listed in patient medical record.: Yes Medication Reconciliation I have utilized all available resources to obtain, update and review the patients current medications (includes all prescriptions, OTC, herbals, cannabis, and nutritional supplements).: Yes
[2025-02-06] MEDS: TAMSULOSIN HCL 0.4 MG CAPSULE PO (22:30)
[2025-02-06] MEDS: HYDROcodone/acetaminophen (*CRX) 5-325 MG TABLET 1 TAB PO (22:30)
[2025-02-06] MEDS: METOPROLOL TARTRATE 50 MG TAB PO (22:31)
[2025-02-06] MEDS: CEFEPIME 1 GM in SODIUM CHLORIDE 0.9% IV 50 ML 100 ML IVPB (22:33)
[2025-02-07] VITALS (28 sets, daily range): BP systolic 154–184; BP diastolic 76–104; PULSE 65–84; RESP 16–18; TEMP 36.5–37; O2SAT 97–100
[2025-02-07] MEDS: HYDROcodone/acetaminophen (*CRX) 5-325 MG TABLET 1 TAB PO ×3 (04:39→20:50)
[2025-02-07 06:06] LABS: Hematocrit 23.2 % (42.0-52.0); Hemoglobin 7.4 g/dL (14.0-18.0); Mean Corpuscular HGB Conc 31.9 g/dl (32-36); Mean Corpuscular Hemoglobin 30.6 pg (26-34); Mean Corpuscular Volume 95.9 fl (80-100); Platelet Count Result 244 k/mm3 (150-375); Red Blood Count 2.42 M/mm3 (4.6-6.20); White Blood Count 8.8 K/mm3 (4.5-10.0)
[2025-02-07 06:45] LABS: Anion Gap 8 mmol/L (4-12); Blood Urea Nitrogen 28 mg/dL (9-20); Calcium 8.5 mg/dL (8.4-10.2); Carbon Dioxide 24 mmol/L (22-30); Chloride 100 mmol/L (98-107); Estimated CRCL calculation 7 ml/min; Estimated Glomerular Filt Rate 6; Glucose 139 mg/dL (65-110); Magnesium 2.2 mg/dL (1.6-2.3); Potassium 4.9 mmol/L (3.4-5.0); Sodium 132 mmol/L (137-145)
--- NOTE | 2025-02-07 07:56 | PM.IMPN2 ---
Assessment and Plan Assessment and Plan (1) Seizure-like activity: Code(s): R56.9 - Unspecified convulsions Status: Acute Assessment and Plan: The patient presented to the ER after eating seizure-like activity. Cause for seizure is uncertain. Patient does have a history of seizures in the past with significant history of prior alcoholism. Also incidentally found to be hypoglycemic in the ED (since resolved). Primary seizure disorder vs alcohol withdrawal vs hypoglycemia for active cause of seizure-like activity. He patient has not had any recurrence of seizure since admission to the hospital. He did receive 1 IV dose of Keppra on arrival to the ER and a dose of diazepam. Is unclear if the patient has been taking his seizure medications as directed. Will resume the patient's home Keppra and place patient on seizure precautions. Neurology was consult from the ER. -Per records, he was admitted to the hospital for similar symptoms from 12/19 through 12/26. Started on Keppra at that time. Evidence of prior CVA noted on MRI November 2024 with infarcts in bilateral basal ganglia and bilateral her periventricular white matter -Pending neuro recs if any, per note today, no recs for additional orders. -No focal deficits (2) Hyperkalemia: Code(s): E87.5 - Hyperkalemia Status: Acute Assessment and Plan: The patient did have marked hyperkalemia and metabolic acidosis due to missing hemodialysis. The patient underwent emergent hemodialysis on 02/07. His repeat electrolyte panel had normalized to more expected values drip patient with compensated he end-stage renal disease. Potassium is now normalized. Nephrology has been consulted for dialysis management. The patient did receive IV insulin dextrose and calcium carbonate in the ER will is kelfl. Will repeat electrolyte panel in a.m.. -Neph following --outpatient dialysis clinic = [facility] --Primary hand outside cutter = Dr. Deluca -Continue M/W/F dialysis schedule while inpt -Stable K level since 12/9 PM, continue with daily labs (3) ESRD on dialysis: Code(s): N18.6 - End stage renal disease; Z99.2 - Dependence on renal dialysis Status: Acute Assessment and Plan: Pt missed x1 day dialysis, regular schedule is M/W/F -See above -Dialyzed again today (4) Hypoglycemia: Code(s): E16.2 - Hypoglycemia, unspecified Status: Acute Assessment and Plan: Incidentally found to be hypoglycemic on arrival to the ER, resolved. -Daily labs (5) Hypertension: Qualifiers: Hypertension type: secondary to other renal disorders Qualified Code(s): I15.1 - Hypertension secondary to other renal disorders Code(s): I10 - Essential (primary) hypertension Status: Chronic Assessment and Plan: Resume patient's home metoprolol, amlodipine. Had missed doses on 02/06 -Added Hydral IV PRN today for >180/100 -Pt due for dialysis today (6) Alcohol abuse: Code(s): F10.10 - Alcohol abuse, uncomplicated Status: Acute Assessment and Plan: The patient is not having any obvious symptoms of alcohol withdrawal he does not have any active tremors diaphoresis or evidence of hallucination. Will monitor CIWA scores. Will continue home thiamin and folic acid supplementation. Will add benzodiazepines if patient's CIWA score becomes elevated. - Most recent CIWA score of 4 today - Pt reports drinking x1 beer a day currently, if that (7) UTI (urinary tract infection): Qualifiers: Hematuria presence: without hematuria Urinary tract infection type: acute cystitis Qualified Code(s): N30.00 - Acute cystitis without hematuria Code(s): N39.0 - Urinary tract infection, site not specified Status: Acute Assessment and Plan: Patient did have an abnormal urinalysis and does have significant suprapubic tenderness. He does have a history of he polymicrobial UTI recently with 1 of the organisms being he she Pseudomonas. Patient has been placed on cefepime after review of prior microbiology. White count was elevated in the ER and a component of patient's confusion could be related to underlying UTI -BC not obtained, will obtain if pt status worsens -Pending UC -Continued cefepime -MRSA nasal pending -WBC WDL today Plan Await UC/BC, continue tx IV abx for UTI, continue inpt dialysis, pending neuro recs Medical Record Review I have reviewed the following patient records and this information was taken into consideration when formulating the assessment and plan.: previous labs Time Spent With Patient Time with patient: 25 - 35 minutes Subjective Date/time seen: 02/07/25 1213 Interval history: Pt visited during his HD treatment. Pt with no acute sx. Pt states that he had a fall last week that resulted in a L humerus fx, pt LUE currently casted. Reports that he missed x1 dialysis days. Denies taking Keppra at home. Review of Systems Review of Systems: All systems reviewed & are unremarkable except as noted in HPI and below Exam Narrative: Weight 67.5 kg BMI 20.2 Const: Other: No acute distress, he well-developed well-nourished HENMT: Other: He head is normocephalic atraumatic, mucous membranes are tacky, no oral pharyngeal erythema Eyes: Other: Positive conjunctival pallor, no scleral icterus, pupils are equal and reactive Neck: Other: No JVD, no lymphadenopathy Chest: Other: Tunneled dialysis catheter right upper chest Resp: Other: Clear to auscultation bilaterally, no increased work of breathing Cardio: Other: Regular rate, regular rhythm, 2+ bilateral radial and pedal pulses Tele 78bpm GI: Other: Soft, nontender, nondistended, normoactive bowel sounds : Other: Suprapubic tenderness noted on exam Skin: Other: No jaundice, no pallor Neuro: Other: A&O x4, no localizing neurologic deficits noted Extrem: Other: No clubbing, cyanosis or edema LUE with full cast applied Psych: Other: She confused but calmed pleasant and cooperative, he poor insight Objective Data Vital Signs Vital Signs: Vital Signs - 24 hr 02/06/25 09:05 02/06/25 09:37 02/06/25 11:27 Temperature 98.3 F Pulse Rate 67 73 Respiratory Rate 24 H 14 Blood Pressure 193/100 H 186/105 H Pulse Oximetry 100 100 100 Oxygen Delivery Room Air Room Air 02/06/25 14:29 02/06/25 15:01 02/06/25 15:11 Temperature 98.4 F Pulse Rate 68 68 64 Respiratory Rate 19 18 Blood Pressure 181/97 H 196/105 H 204/107 H Pulse Oximetry 100 94 Oxygen Delivery 02/06/25 15:15 02/06/25 15:30 02/06/25 15:45 Temperature Pulse Rate 64 77 77 Respiratory Rate Blood Pressure 202/107 H 184/109 H 150/88 H Pulse Oximetry Oxygen Delivery 02/06/25 16:00 02/06/25 16:15 02/06/25 16:30 Temperature Pulse Rate 74 75 87 Respiratory Rate Blood Pressure 163/91 H 152/90 H 165/103 H Pulse Oximetry Oxygen Delivery 02/06/25 16:45 02/06/25 17:00 02/06/25 17:15 Temperature Pulse Rate 81 75 81 Respiratory Rate Blood Pressure 175/101 H 164/98 H 164/112 H Pulse Oximetry Oxygen Delivery 02/06/25 17:30 02/06/25 17:45 02/06/25 18:00 Temperature Pulse Rate 75 82 80 Respiratory Rate Blood Pressure 172/104 H 190/105 H 184/111 H Pulse Oximetry Oxygen Delivery 02/06/25 18:15 02/06/25 18:19 02/06/25 18:26 Temperature 98.6 F Pulse Rate 78 78 79 Respiratory Rate 16 Blood Pressure 185/78 H 184/110 H 173/100 H Pulse Oximetry 95 Oxygen Delivery 02/06/25 20:00 02/06/25 20:18 02/06/25 22:20 Temperature 98.2 F Pulse Rate 65 125 H Respiratory Rate 17 Blood Pressure 183/88 H Pulse Oximetry 100 Oxygen Delivery Room Air 02/06/25 22:27 02/06/25 22:31 02/07/25 00:00 Temperature Pulse Rate 80 74 Respiratory Rate Blood Pressure Pulse Oximetry 99 Oxygen Delivery Room Air 02/07/25 00:53 02/07/25 03:56 02/07/25 04:00 Temperature 97.7 F Pulse Rate 76 75 Respiratory Rate 16 Blood Pressure 176/87 H Pulse Oximetry 99 Oxygen Delivery 02/07/25 04:43 Temperature Pulse Rate Respiratory Rate Blood Pressure 180/86 H Pulse Oximetry Oxygen Delivery Intake/Output Intake/Output: Intake & Output 02/04/25 02/05/25 02/06/25 02/07/25 23:59 23:59 23:59 23:59 Intake Total 200 120 Output Total 1125 200 Balance -925 -80 Meds/Results Medications: Active Medications Generic Name Dose Route Start Last Admin Trade Name Freq PRN Reason Stop Dose Admin Acetaminophen 650 mg 02/06/25 12:45 Acetaminophen 325 Mg Tablet PO Q4H PRN Mild Pain (1-3) or Fever Hydrocodone Bitart/Acetaminophen 1 tab 02/06/25 22:05 02/07/25 04:39 Hydrocodone/Acetaminophen (*Crx) 5-325 Mg Tablet PO 1 tab Q6H PRN Administration pain 7-10 Amlodipine Besylate 10 mg 02/07/25 09:00 Amlodipine Besylate 10 Mg Tablet PO DAILY [facility] Aspirin 81 mg 02/07/25 09:00 Aspirin 81 Mg Enteric Tablet PO QAM [facility] Atorvastatin Calcium 40 mg 02/07/25 09:00 Atorvastatin 40 Mg Tablet PO DAILY [facility] Clopidogrel Bisulfate 75 mg 02/07/25 09:00 Clopidogrel Bisulfate 75 Mg Tablet PO QAM [facility] Dextrose 12.5 gm 02/06/25 10:53 Dextrose 50% 25 Gm/50 Ml Syringe IV PUSH PRN PRN Hypoglycemia Protocol Famotidine 20 mg 02/07/25 09:00 Famotidine 20 Mg Tablet PO DAILY [facility] Finasteride 5 mg 02/07/25 09:00 Finasteride 5 Mg Tablet PO DAILY [facility] Folic Acid 1 mg 02/07/25 09:00 Folic Acid 1 Mg Tablet PO DAILY [facility] Glucagon 1 mg 02/06/25 10:53 Glucagon For Inj 1 Mg Vial IM PRN PRN Hypoglycemia Protocol Glucose 15 gm 02/06/25 10:53 Glucose Oral Gel 15 Gm Of Glucse In 37.5 Gm Tube PO PRN PRN Hypoglycemia Protocol Dextrose 1,000 mls @ 100 mls/hr 02/06/25 10:53 Dextrose 5% 1,000 Ml IVPB PRN PRN Hypoglycemia Protocol Albumin Human 50 mls @ 999 mls/hr 02/06/25 13:21 Albutein IVPB 03/08/25 13:20 Q10M PRN HYPOTENSION Cefepime HCl 1 gm/ Sodium 50 mls @ 100 mls/hr 02/06/25 22:10 02/06/25 23:03 Chloride IVPB Infused HS [facility] Infusion Levetiracetam 500 mg 02/06/25 22:15 02/06/25 22:31 Levetiracetam 500 Mg Tablet PO 500 mg Q12HR ANDER Administration Metoprolol Tartrate 50 mg 02/06/25 22:10 02/06/25 22:31 Metoprolol Tartrate 50 Mg Tab PO 50 mg Q12HR ANDER Administration Ondansetron HCl 4 mg 02/06/25 12:45 Ondansetron Inj 4 Mg/2 Ml Vial IV PUSH Q4H PRN Nausea Pantoprazole Sodium 40 mg 02/07/25 09:00 Pantoprazole 40 Mg Tablet PO DAILY [facility] Tamsulosin HCl 0.4 mg 02/06/25 22:20 02/06/25 22:30 Tamsulosin Hcl 0.4 Mg Capsule PO 0.4 mg HS [facility] Administration Thiamine HCl 100 mg 02/07/25 09:00 Thiamine Hcl 100 Mg Tablet PO QAM [facility] Radiology Results: ITS Impressions Head CT 02/06/25 10:00 IMPRESSION: 1. No gross acute intracranial process. 2. Several chronic appearing findings including advanced diffuse chronic microvascular white matter changes. 3. For new onset or refractory seizure disorder, correlation with brain MRI recommended for optimal evaluation. Chest X-Ray 02/06/25 10:11 IMPRESSION: 1. No focal acute process. Labs Labs: Laboratory Results - last 24 hr 02/06/25 02/06/25 02/06/25 10:36 10:41 11:49 WBC 13.5 H RBC 2.57 L Hgb 7.9 L Hct 24.1 L MCV 93.8 MCH 30.7 MCHC 32.8 RDW 17.1 H Plt Count 285 MPV 10.0 Immature Gran % (Auto) 0.4 Neut % (Auto) 74.3 H Lymph % (Auto) 14.9 L Buchanan % (Auto) 7.0 Eos % (Auto) 3.0 Baso % (Auto) 0.4 Lymph # (Auto) 2.01 Buchanan # (Auto) 0.9 H Eos # (Auto) 0.4 H Baso # (Auto) 0.1 Abs Immat Gran (auto) 0.05 H Absolute Neuts (auto) 10.1 H Absolute Nucleated RBC 0.000 Nucleated RBC % 0.0 PT 12.5 INR 0.9 APTT 25.2 Sodium 130 L Potassium 6.1 H* Chloride 93 L Carbon Dioxide 21 L Anion Gap 16 H BUN 52 H D Creatinine 15.32 H Estim Creat Clear Calc 4 Estimated GFR 3 L Glucose 47 L* POC Capillary Glucose 117 H Lactic Acid 0.8 Calcium 9.2 Phosphorus Magnesium 2.3 Total Bilirubin 0.8 AST 25 ALT 11 Alkaline Phosphatase 106 Total Protein 7.8 Albumin 4.2 Urine Color Urine Appearance Urine pH Ur Specific Eleanor Urine Protein Urine Glucose (UA) Urine Ketones Ur Blood (Man) Urine Nitrate Urine Bilirubin Urine Urobilinogen Leukocyte Esterase Rfl Urine RBC Urine WBC Ur Squamous Epith Cells Urine Bacteria Urine Casts Ethyl Alcohol < 10 02/06/25 02/06/25 02/06/25 13:28 20:31 22:27 WBC RBC Hgb Hct MCV MCH MCHC RDW Plt Count MPV Immature Gran % (Auto) Neut % (Auto) Lymph % (Auto) Buchanan % (Auto) Eos % (Auto) Baso % (Auto) Lymph # (Auto) Buchanan # (Auto) Eos # (Auto) Baso # (Auto) Abs Immat Gran (auto) Absolute Neuts (auto) Absolute Nucleated RBC Nucleated RBC % PT INR APTT Sodium 135 L Potassium 3.8 Chloride 98 Carbon Dioxide 30 Anion Gap 7 BUN 22 H D Creatinine 8.09 H Estim Creat Clear Calc 8 Estimated GFR 7 L Glucose 129 H POC Capillary Glucose 149 H Lactic Acid Calcium 8.9 Phosphorus Magnesium Total Bilirubin AST ALT Alkaline Phosphatase Total Protein Albumin Urine Color Yellow Urine Appearance Cloudy H Urine pH 8.5 Ur Specific Eleanor 1.007 Urine Protein 3+ H Urine Glucose (UA) Negative Urine Ketones Negative Ur Blood (Man) 1+ H Urine Nitrate Negative Urine Bilirubin Negative Urine Urobilinogen 0.2 Leukocyte Esterase Rfl 3+ H Urine RBC 6-10 H Urine WBC >100 H Ur Squamous Epith Cells None seen Urine Bacteria 2+ H Urine Casts 3-5 Ethyl Alcohol 02/07/25 05:50 WBC 8.8 RBC 2.42 L Hgb 7.4 L Hct 23.2 L MCV 95.9 MCH 30.6 MCHC 31.9 L RDW 17.1 H Plt Count 244 MPV 10.6 H Immature Gran % (Auto) Neut % (Auto) Lymph % (Auto) Buchanan % (Auto) Eos % (Auto) Baso % (Auto) Lymph # (Auto) Buchanan # (Auto) Eos # (Auto) Baso # (Auto) Abs Immat Gran (auto) Absolute Neuts (auto) Absolute Nucleated RBC Nucleated RBC % PT INR APTT Sodium 132 L Potassium 4.9 Chloride 100 Carbon Dioxide 24 Anion Gap 8 BUN 28 H Creatinine 9.19 H Estim Creat Clear Calc 7 Estimated GFR 6 L Glucose 139 H POC Capillary Glucose Lactic Acid Calcium 8.5 Phosphorus 5.5 H Magnesium 2.2 Total Bilirubin AST ALT Alkaline Phosphatase Total Protein Albumin Urine Color Urine Appearance Urine pH Ur Specific Eleanor Urine Protein Urine Glucose (UA) Urine Ketones Ur Blood (Man) Urine Nitrate Urine Bilirubin Urine Urobilinogen Leukocyte Esterase Rfl Urine RBC Urine WBC Ur Squamous Epith Cells Urine Bacteria Urine Casts Ethyl Alcohol Quality VTE Prophylaxis VTE prophylaxis: mechanical ordered
[2025-02-07] MEDS: FINASTERIDE 5 MG TABLET PO (09:31)
[2025-02-07] MEDS: ATORVASTATIN 40 MG TABLET PO (09:31)
[2025-02-07] MEDS: THIAMINE HCL 100 MG TABLET PO (09:31)
[2025-02-07] MEDS: FOLIC ACID 1 MG TABLET PO (09:31)
[2025-02-07] MEDS: FAMOTIDINE 20 MG TABLET PO (09:31)
[2025-02-07] MEDS: PANTOPRAZOLE 40 MG TABLET PO (09:31)
[2025-02-07] MEDS: CLOPIDOGREL BISULFATE 75 MG TABLET PO (09:31)
[2025-02-07] MEDS: METOPROLOL TARTRATE 50 MG TAB PO ×2 (09:31→20:51)
[2025-02-07] MEDS: ASPIRIN 81 MG ENTERIC TABLET PO (09:31)
--- NOTE | 2025-02-07 09:40 | PC.NURSE ---
To dialysis via bed.
--- NOTE | 2025-02-07 10:26 | WPDNEURCNPN ---
Consult date: 02/07/25 HPI: Niesha Ceja is a 69 year old male Admitted to the hospital through the emergency room with ongoing history of 1. End-stage renal disease for which he is on hemodialysis on Wednesday and Wednesday 2. Seizure disorder 3. Alcohol dependence 4. Hypertension 5. Chronic anemia 6. Recent left humerus fracture. Patient presented to the ER with report of having convulsions in the morning when family called for EMS. Patient was having twitching of the left side of the face, having difficulties in speaking,. Patient has had the admission for the same symptomatology on 12/19 through 1027 at that particular time was started on Keppra and he reported that he missed his normal dialysis day before visit to the ER he gave no history of any other associated complaints. His medication at the time of visit to the ER included 1. Amlodipine 10mg daily 2. Famotidine 20mg daily 3. Finasteride 5mg daily 4. Pantoprazole 40mg daily 5. Tamsulosin 0.4mg daily. He is reportedly allergic to lisinopril and ISRAEL inhibitors. His past history is consistent with 1. Seizures subsequent to head trauma 2. Anemia secondary to chronic kidney disease 3. Hypertension. 4. Currently everyday smoker 5. Currently 1 drink of alcohol per week. On initial eval in the emergency room he appeared chronically ill but no other abnormal findings. His vital signs were normal except blood pressure 193/100. CT of the head revealed no bleed but several chronic appearing findings consistent with chronic microvascular white matter changes but definitely no epidural or subdural, x-ray of the chest Was negative. Routine lab studies revealed no leukocytosis, hemoglobin only 7.4, platelet count 244, sodium 132, BUN 28 with creatinine of 9.19, glucose 139, UA with 3+ leukocyte Estrace and more than 100 wbc's, alcohol level less than 10, Review of Systems Review of Systems: All systems reviewed & are unremarkable except as noted in HPI and below PMFSH Past Medical History Medical History Normal nuclear stress test (03/2024) Carotid stenosis Marked atherosclerotic vascular calcification the intercranial carotid artery (unclear from radiologic interpretation but seems like this is bilateral based on the phrasing) 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 difficile colitis 11/2024 Chronic alcoholism Seizure after head injury Anemia in CKD (chronic kidney disease) ESRD on dialysis M/W/F with tunneled dialysis catheter in the right upper chest GERD (gastroesophageal reflux disease) Hypertension Surgical History Surgical History No history of previous surgery Family History Family History Father Diabetes mellitus Mother Hypertension Social History Social History Social History: The patient's lives with his sister. The patient states that he has 2 sons. 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 He smokes every day and has smoked up to a pack of cigarettes a week since he was a teenager. He reports that he used to drink a pt every other day during the week and a pt every day on the weekend but has not drink any alcohol except for 1 beer on 02/05/2025. Code status: Full code Surrogate decision maker: Sister Smoking status: Current every day smoker Tobacco type: cigarettes Second hand tobacco smoke exposure: Yes Alcohol intake: current Drinks per week: 10 Substance use: never Substance use type: does not use Other substance usage details: drinks vodka/beer Lack of Transportation: YES Lack of Food: Never True Current Housing: I Have Housing Concerned About Future Housing: No Difficulty Paying Gas/Electric Bills: YES Difficulty Paying for Meds: No Currently Unemployed: No Education: High School Diploma/GED Difficulty w/ Childcare or Family Care: No Spiritual care concerns: No Meds Home Medications and Allergies Home Medications ?Medication ?Instructions ?Recorded ?Confirmed ?Type acetaminophen 500 mg capsule 500 mg PO Q6H PRN pain 03/12/24 02/06/25 History amlodipine 10 mg tablet 10 mg PO DAILY 03/12/24 02/06/25 History famotidine 20 mg tablet 20 mg PO DAILY 03/12/24 02/06/25 History finasteride 5 mg tablet 5 mg PO DAILY 03/12/24 02/06/25 History pantoprazole 40 mg tablet,delayed 40 mg PO DAILY 03/12/24 02/06/25 History release tamsulosin 0.4 mg capsule 0.4 mg PO HS 03/12/24 02/06/25 History aspirin 81 mg tablet,delayed 81 mg PO QAM #30 tabs 12/26/24 02/06/25 Rx release atorvastatin 40 mg tablet 40 mg PO DAILY #30 tabs 12/26/24 02/06/25 Rx clopidogrel 75 mg tablet 75 mg PO QAM #30 tabs 12/26/24 02/06/25 Rx folic acid 1 mg tablet 1 mg PO DAILY #30 tabs 12/26/24 02/06/25 Rx levetiracetam 500 mg tablet 500 mg PO Q12HR #60 tabs 12/26/24 02/06/25 Rx (Keppra) metoprolol tartrate 50 mg tablet 50 mg PO Q12HR #60 tabs 12/26/24 02/06/25 Rx thiamine HCl (vitamin B1) 100 mg 100 mg PO QAM #30 tabs 12/26/24 02/06/25 Rx tablet (Vitamin B-1) hydrocodone 5 mg-acetaminophen 325 1 tablet PO Q6H PRN pain #20 tabs 01/06/25 02/06/25 Rx mg tablet Allergies Allergy/AdvReac Type Severity Reaction Status Date / Time ISRAEL Inhibitors Allergy Severe Unknown Verified 02/06/25 21:08 lisinopril Allergy Intermediate Itching Verified 02/06/25 21:08 Vital Signs Vital Signs - 24 hr 02/06/25 11:27 02/06/25 14:29 02/06/25 15:01 Temperature 36.9 C Pulse Rate 73 68 68 Respiratory Rate 14 19 18 Blood Pressure 186/105 H 181/97 H 196/105 H Pulse Oximetry 100 100 94 Oxygen Delivery 02/06/25 15:11 02/06/25 15:15 02/06/25 15:30 Temperature Pulse Rate 64 64 77 Respiratory Rate Blood Pressure 204/107 H 202/107 H 184/109 H Pulse Oximetry Oxygen Delivery 02/06/25 15:45 02/06/25 16:00 02/06/25 16:15 Temperature Pulse Rate 77 74 75 Respiratory Rate Blood Pressure 150/88 H 163/91 H 152/90 H Pulse Oximetry Oxygen Delivery 02/06/25 16:30 02/06/25 16:45 02/06/25 17:00 Temperature Pulse Rate 87 81 75 Respiratory Rate Blood Pressure 165/103 H 175/101 H 164/98 H Pulse Oximetry Oxygen Delivery 02/06/25 17:15 02/06/25 17:30 02/06/25 17:45 Temperature Pulse Rate 81 75 82 Respiratory Rate Blood Pressure 164/112 H 172/104 H 190/105 H Pulse Oximetry Oxygen Delivery 02/06/25 18:00 02/06/25 18:15 02/06/25 18:19 Temperature Pulse Rate 80 78 78 Respiratory Rate Blood Pressure 184/111 H 185/78 H 184/110 H Pulse Oximetry Oxygen Delivery 02/06/25 18:26 02/06/25 20:00 02/06/25 20:18 Temperature 37.0 C 36.8 C Pulse Rate 79 65 125 H Respiratory Rate 16 17 Blood Pressure 173/100 H 183/88 H Pulse Oximetry 95 100 Oxygen Delivery 02/06/25 22:20 02/06/25 22:27 02/06/25 22:31 Temperature Pulse Rate 80 Respiratory Rate Blood Pressure Pulse Oximetry 99 Oxygen Delivery Room Air Room Air 02/07/25 00:00 02/07/25 00:53 02/07/25 03:56 Temperature 36.5 C Pulse Rate 74 76 Respiratory Rate 16 Blood Pressure 176/87 H Pulse Oximetry 99 Oxygen Delivery 02/07/25 04:00 02/07/25 04:43 02/07/25 09:31 Temperature Pulse Rate 75 70 Respiratory Rate Blood Pressure 180/86 H Pulse Oximetry Oxygen Delivery Results Labs 02/07/25 05:50 02/07/25 05:50 Labs: Short CBC 02/06/25 02/07/25 Range/Units 10:41 05:50 WBC 13.5 H 8.8 (4.5-10.0) K/mm3 Hgb 7.9 L 7.4 L (14.0-18.0) g/dL Hct 24.1 L 23.2 L (42.0-52.0) % Plt Count 285 244 (150-375) k/mm3 BMP 02/06/25 02/06/25 02/07/25 10:36 20:31 05:50 Sodium 130 L 135 L 132 L Potassium 6.1 H* 3.8 4.9 Chloride 93 L 98 100 Carbon Dioxide 21 L 30 24 BUN 52 H D 22 H D 28 H Creatinine 15.32 H 8.09 H 9.19 H Glucose 47 L* 129 H 139 H Calcium 9.2 8.9 8.5 Liver Function 02/06/25 Range/Units 10:36 Total Bilirubin 0.8 (0.2-1.3) mg/dL AST 25 (17-59) U/L ALT 11 (6-50) U/L Alkaline Phosphatase 106 (38-126) U/L Albumin 4.2 (3.5-5.1) g/dL Urine 02/06/25 Range/Units 13:28 Urine Color Yellow (Yellow) Urine Appearance Cloudy H (Clear) Urine pH 8.5 (5.0-9.0) Ur Specific Thurmond 1.007 (1.001-1.035) Urine Protein 3+ H (Negative) mg/dL Urine Glucose (UA) Negative (Negative) mg/dL
--- NOTE | 2025-02-07 12:58 | P.PNNP_ITS ---
Progress Note: A&P Assessment and Plan (1) End stage renal disease: Code(s): N18.6 - End stage renal disease Status: Chronic Assessment and Plan: * HD today * continue outpatient schedule of Wednesday/Wednesdays/Wednesday while hospitalized * follow electrolytes, volume status, and clearance * outpatient dialysis clinic = [facility] * primary director of operations = Dr. Deluca (2) Hyperkalemia: Code(s): E87.5 - Hyperkalemia Status: Acute Assessment and Plan: * resolved * as noted by admission labs * due to missed dialysis treatment on Wednesday * HD should correct/maintain stability * follow repeat K+ levels (3) Seizure-like activity: Code(s): R56.9 - Unspecified convulsions Status: Acute Assessment and Plan: * noted on last hospital admission in November 2024 * started on Keppra at that time * due to alcohol withdrawal versus primary seizure d/o versus hypoglycemia versus other(?) * extensive work-up and evaluation noted on November 2024 admission: * Head CT negative (this admission as well as last) * Head/neck CTA noted: - irregularity within the right vertebral artery at the level of C5-C6 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 - marked atherosclerotic vascular calcification of the intracranial carotid artery causing moderate stenosis - no LVO * Brain MRI (12/20/24): - old lacunar infarcts at the bilateral thalami, basal ganglia and internal capsules - no acute intracranial process or abnormal enhancing brain lesions - extensive periventricular predominant nonspecific white matter T2 hyperintensity consistent with chronic small vessel ischemic disease * on ASA/plavix/statin * Neurology following (4) UTI (urinary tract infection): Code(s): N39.0 - Urinary tract infection, site not specified Status: Inactive Assessment and Plan: * admission UA suggestive * follow culture data * on antibiotics (5) Anemia: Code(s): D64.9 - Anemia, unspecified Status: Chronic Assessment and Plan: * due to ESRD * Epogen with HD * follow trend of H/H (6) Hypertension: Qualifiers: Hypertension type: secondary to other renal disorders Qualified Code(s): I15.1 - Hypertension secondary to other renal disorders Code(s): I10 - Essential (primary) hypertension Status: Chronic Assessment and Plan: * resume home medications * hydralazine PRN * follow trend of hemodynamics - (7) Hypoglycemia: Code(s): E16.2 - Hypoglycemia, unspecified Status: Acute Assessment and Plan: * incidentally noted in the ER * resolved (8) Alcohol abuse: Code(s): F10.10 - Alcohol abuse, uncomplicated Status: Acute Assessment and Plan: * known history * [facility] protocol * on thiamine and folate Will continue to follow. L Subjective Date/time seen: 02/07/25 12:10 Interval history: Follow-up for end stage renal disease on hemodialysis. Tolerating dialysis treatment at the time of my visit (seen on HD at 12:00pm); no apparent distress noted when seen; no acute issues/events overnight or earlier this morning; no other acute complaints voiced. Exam 2 Narrative: General: elderly male in NAD Heart: normal S1 and S2; no rub Lungs: clear anteriorly Abdomen: soft, nontender, nondistended, positive bowel sounds Extremities: no cyanosis or clubbing; no edema Skin: warm and dry Objective Data Vital Signs Vital Signs: Vital Signs Temp Pulse Resp BP Pulse Ox O2 Del Method 02/07/25 12:00 70 167/97 H 02/07/25 12:00 70 167/97 H 02/07/25 11:45 77 154/89 H 02/07/25 11:30 65 163/86 H 02/07/25 11:15 65 171/101 H 02/07/25 11:00 67 172/100 H 02/07/25 10:45 67 177/100 H 02/07/25 10:30 66 171/98 H 02/07/25 10:15 74 159/89 H 02/07/25 09:57 69 184/104 H 02/07/25 09:45 98.1 F 72 18 177/92 H 97 02/07/25 09:31 70 02/07/25 08:03 66 02/07/25 08:03 16 99 Room Air 02/07/25 04:43 180/86 H 02/07/25 04:00 75 02/07/25 03:56 97.7 F 76 16 99 02/07/25 00:53 176/87 H Intake/Output Intake/Output: Intake & Output 02/05/25 02/06/25 02/07/25 02/08/25 23:59 23:59 23:59 23:59 Intake Total 200 1210 Output Total 7429 0001 Balance -925 -581 Meds/Results Medications: Active Medications Generic Name Dose Route Start Last Admin Trade Name Nasirq PRN Reason Stop Dose Admin Acetaminophen 650 mg 02/06/25 12:45 Acetaminophen 325 Mg Tablet PO Q4H PRN Mild Pain (1-3) or Fever Hydrocodone Bitart/Acetaminophen 1 tab 02/06/25 22:05 02/07/25 20:50 Hydrocodone/Acetaminophen (*Crx) 5-325 Mg Tablet PO 1 tab Q6H PRN Administration pain 7-10 Amlodipine Besylate 10 mg 02/07/25 09:00 02/07/25 09:31 Amlodipine Besylate 10 Mg Tablet PO 10 mg DAILY ANDER Administration Aspirin 81 mg 02/07/25 09:00 02/07/25 09:31 Aspirin 81 Mg Enteric Tablet PO 81 mg QAM ANDER Administration Atorvastatin Calcium 40 mg 02/07/25 09:00 02/07/25 09:31 Atorvastatin 40 Mg Tablet PO 40 mg DAILY ANDER Administration Clopidogrel Bisulfate 75 mg 02/07/25 09:00 02/07/25 09:31 Clopidogrel Bisulfate 75 Mg Tablet PO 75 mg QAM ANDER Administration Dextrose 12.5 gm 02/06/25 10:53 Dextrose 50% 25 Gm/50 Ml Syringe IV PUSH PRN PRN Hypoglycemia Protocol Famotidine 20 mg 02/07/25 09:00 02/07/25 09:31 Famotidine 20 Mg Tablet PO 20 mg DAILY ANDER Administration Finasteride 5 mg 02/07/25 09:00 02/07/25 09:31 Finasteride 5 Mg Tablet PO 5 mg DAILY ANDER Administration Folic Acid 1 mg 02/07/25 09:00 02/07/25 09:31 Folic Acid 1 Mg Tablet PO 1 mg DAILY ANDER Administration Glucagon 1 mg 02/06/25 10:53 Glucagon For Inj 1 Mg Vial IM PRN PRN Hypoglycemia Protocol Glucose 15 gm 02/06/25 10:53 Glucose Oral Gel 15 Gm Of Glucse In 37.5 Gm Tube PO PRN PRN Hypoglycemia Protocol Hydralazine HCl 10 mg 02/07/25 08:00 Hydralazine Hcl 20 Mg/Ml Vial IV PUSH Q6H PRN Blood Pressure - High Dextrose 1,000 mls @ 100 mls/hr 02/06/25 10:53 Dextrose 5% 1,000 Ml IVPB PRN PRN Hypoglycemia Protocol Albumin Human 50 mls @ 999 mls/hr 02/06/25 13:21 Albutein IVPB 03/08/25 13:20 Q10M PRN HYPOTENSION Cefepime HCl 1 gm/ Sodium 50 mls @ 100 mls/hr 02/06/25 22:10 02/07/25 21:24 Chloride IVPB Infused HS ANDER Infusion Levetiracetam 500 mg 02/06/25 22:15 02/07/25 20:51 Levetiracetam 500 Mg Tablet PO 500 mg Q12HR ANDER Administration Metoprolol Tartrate 50 mg 02/06/25 22:10 02/07/25 20:51 Metoprolol Tartrate 50 Mg Tab PO 50 mg Q12HR ANDER Administration Ondansetron HCl 4 mg 02/06/25 12:45 Ondansetron Inj 4 Mg/2 Ml Vial IV PUSH Q4H PRN Nausea Pantoprazole Sodium 40 mg 02/07/25 09:00 02/07/25 09:31 Pantoprazole 40 Mg Tablet PO 40 mg DAILY ANDER Administration Tamsulosin HCl 0.4 mg 02/06/25 22:20 02/07/25 20:51 Tamsulosin Hcl 0.4 Mg Capsule PO 0.4 mg HS ANDER Administration Thiamine HCl 100 mg 02/07/25 09:00 02/07/25 09:31 Thiamine Hcl 100 Mg Tablet PO 100 mg QAM ANDER Administration Radiology Results: ITS Impressions Head CT 02/06/25 10:00 IMPRESSION: 1. No gross acute intracranial process. 2. Several chronic appearing findings including advanced diffuse chronic microvascular white matter changes. 3. For new onset or refractory seizure disorder, correlation with brain MRI recommended for optimal evaluation. Chest X-Ray 02/06/25 10:11 IMPRESSION: 1. No focal acute process. Labs Labs: Laboratory Tests 02/07/25 05:50 02/07/25 05:50 Calcium 8.5 Phosphorus 5.5 H Magnesium 2.2
[2025-02-07 14:51] LABS: MRSA (PCR) NOT DETECTED (NOT DETECTE)
[2025-02-07] MEDS: TAMSULOSIN HCL 0.4 MG CAPSULE PO (20:51)
[2025-02-07] MEDS: CEFEPIME 1 GM in SODIUM CHLORIDE 0.9% IV 50 ML 100 ML IVPB (20:54)
[2025-02-08] VITALS (14 sets, daily range): BP systolic 158–183; BP diastolic 78–83; PULSE 64–77; RESP 14–20; TEMP 36.4–36.7; O2SAT 100
[2025-02-08] MEDS: HYDROcodone/acetaminophen (*CRX) 5-325 MG TABLET 1 TAB PO ×3 (05:23→16:50)
[2025-02-08] MEDS: ONDANSETRON INJ 4 MG/2 ML VIAL IV PUSH (05:23)
[2025-02-08 05:31] LABS: Hematocrit 23.1 % (42.0-52.0); Hemoglobin 7.2 g/dL (14.0-18.0); Immature Granulocyte Percent A 0.5 % (0-0.5); Lymphocytes Absolute Auto 2.06 K/mm3 (0.9-3.2); Mean Corpuscular HGB Conc 31.2 g/dl (32-36); Mean Corpuscular Hemoglobin 30.5 pg (26-34); Mean Corpuscular Volume 97.9 fl (80-100); Nucleated Red Blood Cells Absolute Auto 0.000 K/mm3 (0.0-0.012); Nucleated Red Blood Cells Perc 0.0 % (0.0-0.2); Platelet Count Result 243 k/mm3 (150-375); Red Blood Count 2.36 M/mm3 (4.6-6.20); White Blood Count 9.3 K/mm3 (4.5-10.0)
[2025-02-08 05:43] LABS: Alanine Aminotransferase 11 U/L (6-50); Albumin Level 3.5 g/dL (3.5-5.1); Alkaline Phosphatase 89 U/L (38-126); Anion Gap 5 mmol/L (4-12); Aspartate Amino Transferase 29 U/L (17-59); Bilirubin,Total 0.4 mg/dL (0.2-1.3); Blood Urea Nitrogen 16 mg/dL (9-20); Calcium 8.9 mg/dL (8.4-10.2); Carbon Dioxide 26 mmol/L (22-30); Chloride 105 mmol/L (98-107); Estimated CRCL calculation 9 ml/min; Estimated Glomerular Filt Rate 8; Glucose 105 mg/dL (65-110); Potassium 4.8 mmol/L (3.4-5.0); Sodium 136 mmol/L (137-145); Total Protein 6.6 g/dL (6.3-8.2)
--- NOTE | 2025-02-08 07:30 | PM.IMPN2 ---
Assessment and Plan Assessment and Plan (1) Seizure-like activity: Code(s): R56.9 - Unspecified convulsions Status: Acute Assessment and Plan: The patient presented to the ER after eating seizure-like activity. Cause for seizure is uncertain. Patient does have a history of seizures in the past with significant history of prior alcoholism. Also incidentally found to be hypoglycemic in the ED (since resolved). Primary seizure disorder vs alcohol withdrawal vs hypoglycemia for active cause of seizure-like activity. He patient has not had any recurrence of seizure since admission to the hospital. He did receive 1 IV dose of Keppra on arrival to the ER and a dose of diazepam. Is unclear if the patient has been taking his seizure medications as directed. Will resume the patient's home Keppra and place patient on seizure precautions. Neurology was consult from the ER. -Per records, he was admitted to the hospital for similar symptoms from 12/19 through 12/26. Started on Keppra at that time. Evidence of prior CVA noted on MRI November 2024 with infarcts in bilateral basal ganglia and bilateral her periventricular white matter -Pending neuro recs if any, per note today, no recs for additional orders. Spoke with neuro today, rec only to continue Keppra. -No focal deficits (2) Hyperkalemia: Code(s): E87.5 - Hyperkalemia Status: Acute Assessment and Plan: The patient did have marked hyperkalemia and metabolic acidosis due to missing hemodialysis. The patient underwent emergent hemodialysis on 02/07. His repeat electrolyte panel had normalized to more expected values drip patient with compensated he end-stage renal disease. Potassium is now normalized. Nephrology has been consulted for dialysis management. The patient did receive IV insulin dextrose and calcium carbonate in the ER will is [facility]. Will repeat electrolyte panel in a.m.. -Neph following --outpatient dialysis clinic = [facility] --Primary cafeteria director = Dr. Deluca -Continue M/W/F dialysis schedule while inpt -Stable K level since 12/9 PM, continue with daily labs (3) ESRD on dialysis: Code(s): N18.6 - End stage renal disease; Z99.2 - Dependence on renal dialysis Status: Acute Assessment and Plan: Pt missed x1 day dialysis, regular schedule is M/W/F -See above (4) Hypoglycemia: Code(s): E16.2 - Hypoglycemia, unspecified Status: Acute Assessment and Plan: Incidentally found to be hypoglycemic on arrival to the ER, resolved. -Daily labs (5) Hypertension: Qualifiers: Hypertension type: secondary to other renal disorders Qualified Code(s): I15.1 - Hypertension secondary to other renal disorders Code(s): I10 - Essential (primary) hypertension Status: Chronic Assessment and Plan: Resume patient's home metoprolol, amlodipine. Had missed doses on 02/06 -Added Hydral IV PRN for >180/100 -HD M/W/ (6) Alcohol abuse: Code(s): F10.10 - Alcohol abuse, uncomplicated Status: Acute Assessment and Plan: The patient is not having any obvious symptoms of alcohol withdrawal he does not have any active tremors diaphoresis or evidence of hallucination. Will monitor CIWA scores. Will continue home thiamin and folic acid supplementation. Will add benzodiazepines if patient's CIWA score becomes elevated. - Per night nursing, pt had been more tremulous and anxious. Most recent CIWA score of 13 today. Upon my visit, pt sound asleep after [place] dose. Placed PO Diazepam PRN order today. - Pt reports drinking x1 beer and 1/2 pint daily prior to admission, last drink 02/05 (7) UTI (urinary tract infection): Qualifiers: Hematuria presence: without hematuria Urinary tract infection type: acute cystitis Qualified Code(s): N30.00 - Acute cystitis without hematuria Code(s): N39.0 - Urinary tract infection, site not specified Status: Acute Assessment and Plan: Patient did have an abnormal urinalysis and does have significant suprapubic tenderness. He does have a history of he polymicrobial UTI recently with 1 of the organisms being he she Pseudomonas. Patient has been placed on cefepime after review of prior microbiology. White count was elevated in the ER and a component of patient's confusion could be related to underlying UTI -BC not obtained, will obtain if pt status worsens -UC NGTD -Reports that initially he was having urinary frequency and urgency, will continue abx for x5 day course, switching to oral Cipro today -Continued cefepime -MRSA nasal negative -WBC WDL today Plan Continue po Cipro for UTI, continue inpt dialysis, pending PT/OT. Medical Record Review I have reviewed the following patient records and this information was taken into consideration when formulating the assessment and plan.: previous labs Time Spent With Patient Time with patient: 25 - 35 minutes Subjective Date/time seen: 02/08/25 07:17 Interval history: Pt sleeping upon my arrival, arousable to touch and voice. Pt with no complaints. Revisited pt when he was awake, does report that he has been having some urinary frequency and urgency, will continue abx. Pt also states that he is feeling weaker today, too weak to go home. Will order PT/OT for eval. Review of Systems Review of Systems: All systems reviewed & are unremarkable except as noted in HPI and below Exam Narrative: Weight 67.5 kg BMI 20.2 Const: Other: No acute distress, he well-developed well-nourished HENMT: Other: He head is normocephalic atraumatic, mucous membranes are tacky, no oral pharyngeal erythema Eyes: Other: Positive conjunctival pallor, no scleral icterus, pupils are equal and reactive Neck: Other: No JVD, no lymphadenopathy Chest: Other: Tunneled dialysis catheter right upper chest Resp: Other: Clear to auscultation bilaterally, no increased work of breathing Cardio: Other: Regular rate, regular rhythm, 2+ bilateral radial and pedal pulses Tele 78bpm GI: Other: Soft, nontender, nondistended, normoactive bowel sounds : Other: Suprapubic tenderness noted on exam Skin: Other: No jaundice, no pallor Neuro: Other: A&O x4, no localizing neurologic deficits noted Extrem: Other: No clubbing, cyanosis or edema LUE with full cast applied Psych: Other: She confused but calmed pleasant and cooperative, he poor insight Objective Data Vital Signs Vital Signs: Vital Signs - 24 hr 02/07/25 08:03 02/07/25 08:03 02/07/25 09:31 Temperature Pulse Rate 66 70 Respiratory Rate 16 Blood Pressure Pulse Oximetry 99 Oxygen Delivery Room Air 02/07/25 09:45 02/07/25 09:57 02/07/25 10:15 Temperature 98.1 F Pulse Rate 72 69 74 Respiratory Rate 18 Blood Pressure 177/92 H 184/104 H 159/89 H Pulse Oximetry 97 Oxygen Delivery 02/07/25 10:30 02/07/25 10:45 02/07/25 11:00 Temperature Pulse Rate 66 67 67 Respiratory Rate Blood Pressure 171/98 H 177/100 H 172/100 H Pulse Oximetry Oxygen Delivery 02/07/25 11:15 02/07/25 11:30 02/07/25 11:45 Temperature Pulse Rate 65 65 77 Respiratory Rate Blood Pressure 171/101 H 163/86 H 154/89 H Pulse Oximetry Oxygen Delivery 02/07/25 12:00 02/07/25 12:00 02/07/25 12:00 Temperature Pulse Rate 70 70 70 Respiratory Rate Blood Pressure 167/97 H 167/97 H Pulse Oximetry Oxygen Delivery 02/07/25 12:15 02/07/25 12:30 02/07/25 12:45 Temperature Pulse Rate 75 70 Respiratory Rate Blood Pressure 157/92 H 176/94 H 176/94 H Pulse Oximetry Oxygen Delivery 02/07/25 13:02 02/07/25 13:22 02/07/25 14:00 Temperature 98.1 F 98.2 F Pulse Rate 72 72 74 Respiratory Rate 18 16 Blood Pressure 169/89 H 169/89 H 159/76 H Pulse Oximetry 98 100 Oxygen Delivery 02/07/25 16:03 02/07/25 19:49 02/07/25 20:00 Temperature 97.8 F Pulse Rate 79 73 84 Respiratory Rate 17 Blood Pressure 158/95 H Pulse Oximetry 100 Oxygen Delivery 02/07/25 20:40 02/07/25 20:51 02/08/25 00:00 Temperature Pulse Rate 73 73 Respiratory Rate Blood Pressure Pulse Oximetry Oxygen Delivery Room Air 02/08/25 04:00 02/08/25 04:01 02/08/25 06:33 Temperature 97.8 F 97.6 F Pulse Rate 73 69 64 Respiratory Rate 16 16 Blood Pressure 158/78 H 183/83 H Pulse Oximetry 100 100 Oxygen Delivery Intake/Output Intake/Output: Intake & Output 02/05/25 02/06/25 02/07/25 02/08/25 23:59 23:59 23:59 23:59 Intake Total 200 1210 100 Output Total 1125 1375 Balance -925 -165 100 Meds/Results Medications: Active Medications Generic Name Dose Route Start Last Admin Trade Name Freq PRN Reason Stop Dose Admin Acetaminophen 650 mg 02/06/25 12:45 Acetaminophen 325 Mg Tablet PO Q4H PRN Mild Pain (1-3) or Fever Hydrocodone Bitart/Acetaminophen 1 tab 02/06/25 22:05 02/08/25 05:23 Hydrocodone/Acetaminophen (*Crx) 5-325 Mg Tablet PO 1 tab Q6H PRN Administration pain 7-10 Amlodipine Besylate 10 mg 02/07/25 09:00 02/07/25 09:31 Amlodipine Besylate 10 Mg Tablet PO 10 mg DAILY ANDER Administration Aspirin 81 mg 02/07/25 09:00 02/07/25 09:31 Aspirin 81 Mg Enteric Tablet PO 81 mg QAM ANDER Administration Atorvastatin Calcium 40 mg 02/07/25 09:00 02/07/25 09:31 Atorvastatin 40 Mg Tablet PO 40 mg DAILY ANDER Administration Clopidogrel Bisulfate 75 mg 02/07/25 09:00 02/07/25 09:31 Clopidogrel Bisulfate 75 Mg Tablet PO 75 mg QAM ANDER Administration Dextrose 12.5 gm 02/06/25 10:53 Dextrose 50% 25 Gm/50 Ml Syringe IV PUSH PRN PRN Hypoglycemia Protocol Diazepam 5 - 10 mg 02/08/25 07:26 Diazepam (*Crx) 5 Mg Tablet PO Q5M PRN CIWA > 15 Famotidine 20 mg 02/07/25 09:00 02/07/25 09:31 Famotidine 20 Mg Tablet PO 20 mg DAILY ANDER Administration Finasteride 5 mg 02/07/25 09:00 02/07/25 09:31 Finasteride 5 Mg Tablet PO 5 mg DAILY ANDER Administration Folic Acid 1 mg 02/07/25 09:00 02/07/25 09:31 Folic Acid 1 Mg Tablet PO 1 mg DAILY ANDER Administration Glucagon 1 mg 02/06/25 10:53 Glucagon For Inj 1 Mg Vial IM PRN PRN Hypoglycemia Protocol Glucose 15 gm 02/06/25 10:53 Glucose Oral Gel 15 Gm Of Glucse In 37.5 Gm Tube PO PRN PRN Hypoglycemia Protocol Hydralazine HCl 10 mg 02/07/25 08:00 Hydralazine Hcl 20 Mg/Ml Vial IV PUSH Q6H PRN Blood Pressure - High Dextrose 1,000 mls @ 100 mls/hr 02/06/25 10:53 Dextrose 5% 1,000 Ml IVPB PRN PRN Hypoglycemia Protocol Albumin Human 50 mls @ 999 mls/hr 02/06/25 13:21 Albutein IVPB 03/08/25 13:20 Q10M PRN HYPOTENSION Cefepime HCl 1 gm/ Sodium 50 mls @ 100 mls/hr 02/06/25 22:10 02/07/25 21:24 Chloride IVPB Infused HS ANDER Infusion Levetiracetam 500 mg 02/06/25 22:15 02/07/25 20:51 Levetiracetam 500 Mg Tablet PO 500 mg Q12HR ANDER Administration Metoprolol Tartrate 50 mg 02/06/25 22:10 02/07/25 20:51 Metoprolol Tartrate 50 Mg Tab PO 50 mg Q12HR ANDER Administration Ondansetron HCl 4 mg 02/06/25 12:45 02/08/25 05:23 Ondansetron Inj 4 Mg/2 Ml Vial IV PUSH 4 mg Q4H PRN Administration Nausea Pantoprazole Sodium 40 mg 02/07/25 09:00 02/07/25 09:31 Pantoprazole 40 Mg Tablet PO 40 mg DAILY ANDER Administration Tamsulosin HCl 0.4 mg 02/06/25 22:20 02/07/25 20:51 Tamsulosin Hcl 0.4 Mg Capsule PO 0.4 mg HS ANDER Administration Thiamine HCl 100 mg 02/07/25 09:00 02/07/25 09:31 Thiamine Hcl 100 Mg Tablet PO 100 mg QAM ANDER Administration Radiology Results: ITS Impressions Head CT 02/06/25 10:00 IMPRESSION: 1. No gross acute intracranial process. 2. Several chronic appearing findings including advanced diffuse chronic microvascular white matter changes. 3. For new onset or refractory seizure disorder, correlation with brain MRI recommended for optimal evaluation. Chest X-Ray 02/06/25 10:11 IMPRESSION: 1. No focal acute process. Labs Labs: Laboratory Results - last 24 hr 02/07/25 02/07/25 02/07/25 07:58 13:32 13:33 WBC RBC Hgb Hct MCV MCH MCHC RDW Plt Count MPV Immature Gran % (Auto) Neut % (Auto) Lymph % (Auto) [place] % (Auto) Eos % (Auto) Baso % (Auto) Lymph # (Auto) [place] # (Auto) Eos # (Auto) Baso # (Auto) Abs Immat Gran (auto) Absolute Neuts (auto) Absolute Nucleated RBC Nucleated RBC % Sodium Potassium Chloride Carbon Dioxide Anion Gap BUN Creatinine Estim Creat Clear Calc Estimated GFR Glucose POC Capillary Glucose 130 H 93 Calcium Total Bilirubin AST ALT Alkaline Phosphatase Total Protein Albumin Nasal MRSA (PCR) Not detected 02/07/25 02/07/25 02/08/25 16:57 19:48 04:56 WBC 9.3 RBC 2.36 L Hgb 7.2 L Hct 23.1 L MCV 97.9 MCH 30.5 MCHC 31.2 L RDW 17.3 H Plt Count 243 MPV 10.6 H Immature Gran % (Auto) 0.5 Neut % (Auto) 63.8 Lymph % (Auto) 22.1 [place] % (Auto) 10.6 H Eos % (Auto) 2.6 Baso % (Auto) 0.4 Lymph # (Auto) 2.06 [place] # (Auto) 1.0 H Eos # (Auto) 0.2 Baso # (Auto) 0.0 Abs Immat Gran (auto) 0.05 H Absolute Neuts (auto) 5.9 Absolute Nucleated RBC 0.000 Nucleated RBC % 0.0 Sodium 136 L Potassium 4.8 Chloride 105 Carbon Dioxide 26 Anion Gap 5 BUN 16 D Creatinine 6.95 H Estim Creat Clear Calc 9 Estimated GFR 8 L Glucose 105 POC Capillary Glucose 180 H 129 H Calcium 8.9 Total Bilirubin 0.4 AST 29 ALT 11 Alkaline Phosphatase 89 Total Protein 6.6 Albumin 3.5 Nasal MRSA (PCR) 02/08/25 05:32 WBC RBC Hgb Hct MCV MCH MCHC RDW Plt Count MPV Immature Gran % (Auto) Neut % (Auto) Lymph % (Auto) [place] % (Auto) Eos % (Auto) Baso % (Auto) Lymph # (Auto) [place] # (Auto) Eos # (Auto) Baso # (Auto) Abs Immat Gran (auto) Absolute Neuts (auto) Absolute Nucleated RBC Nucleated RBC % Sodium Potassium Chloride Carbon Dioxide Anion Gap BUN Creatinine Estim Creat Clear Calc Estimated GFR Glucose POC Capillary Glucose 103 Calcium Total Bilirubin AST ALT Alkaline Phosphatase Total Protein Albumin Nasal MRSA (PCR) Quality VTE Prophylaxis VTE prophylaxis: mechanical ordered
[2025-02-08] MEDS: METOPROLOL TARTRATE 50 MG TAB PO ×2 (08:41→21:12)
[2025-02-08] MEDS: FAMOTIDINE 20 MG TABLET PO (08:41)
[2025-02-08] MEDS: ASPIRIN 81 MG ENTERIC TABLET PO (08:41)
[2025-02-08] MEDS: CLOPIDOGREL BISULFATE 75 MG TABLET PO (08:41)
[2025-02-08] MEDS: FINASTERIDE 5 MG TABLET PO (08:41)
[2025-02-08] MEDS: PANTOPRAZOLE 40 MG TABLET PO (08:42)
[2025-02-08] MEDS: THIAMINE HCL 100 MG TABLET PO (08:42)
[2025-02-08] MEDS: FOLIC ACID 1 MG TABLET PO (08:42)
[2025-02-08] MEDS: ATORVASTATIN 40 MG TABLET PO (08:42)
--- NOTE | 2025-02-08 14:18 | P.PNNP_ITS ---
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 (2) Hyperkalemia: Code(s): E87.5 - Hyperkalemia Status: Acute Assessment and Plan: * resolved * as noted by admission labs * due to missed dialysis treatment on Wednesday * HD should correct/maintain stability * follow repeat K+ levels (3) Seizure-like activity: Code(s): R56.9 - Unspecified convulsions Status: Acute Assessment and Plan: * noted on last hospital admission in November 2024 * started on Keppra at that time * due to alcohol withdrawal versus primary seizure d/o versus hypoglycemia versus other(?) * extensive work-up and evaluation noted on November 2024 admission: * Head CT negative (this admission as well as last) * Head/neck CTA noted: - irregularity within the right vertebral artery at the level of C5-C6 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 - marked atherosclerotic vascular calcification of the intracranial carotid artery causing moderate stenosis - no LVO * Brain MRI (12/20/24): - old lacunar infarcts at the bilateral thalami, basal ganglia and internal capsules - no acute intracranial process or abnormal enhancing brain lesions - extensive periventricular predominant nonspecific white matter T2 hyperintensity consistent with chronic small vessel ischemic disease * on ASA/plavix/statin * Neurology following (4) UTI (urinary tract infection): Code(s): N39.0 - Urinary tract infection, site not specified Status: Inactive Assessment and Plan: * admission UA suggestive * follow culture data - negative to date * on antibiotics to complete course of therapy given clinical symptoms (dysuria + urgency) (5) Anemia: Code(s): D64.9 - Anemia, unspecified Status: Chronic Assessment and Plan: * due to ESRD * Epogen with HD * follow trend of H/H (6) Hypertension: Qualifiers: Hypertension 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 L Subjective Date/time seen: 02/08/25 14:18 Interval history: Follow-up end stage renal disease on hemodialysis. Tolerated dialysis yesterday without any issue or problems; no apparent distress noted but does report significant fatigue and weakness; no events overnight or earlier this AM. Exam 2 Narrative: General: elderly male in NAD Heart: normal S1 and S2; no rub Lungs: clear anteriorly Abdomen: soft, nontender, nondistended, positive bowel sounds Extremities: no cyanosis or clubbing; no edema Skin: warm and intact Objective Data Vital Signs Vital Signs: Vital Signs Temp Pulse Resp BP Pulse Ox O2 Del Method 02/08/25 14:00 98.1 F 68 14 159/79 H 100 02/08/25 12:04 67 02/08/25 08:42 69 02/08/25 08:42 16 100 Room Air 02/08/25 08:41 77 02/08/25 08:01 69 02/08/25 06:33 97.6 F 64 16 183/83 H 100 02/08/25 04:01 97.8 F 69 16 158/78 H 100 02/08/25 04:00 73 02/08/25 00:00 73 02/07/25 20:51 73 02/07/25 20:40 Room Air 02/07/25 20:00 84 02/07/25 19:49 97.8 F 73 17 158/95 H 100 Intake/Output Intake/Output: Intake & Output 02/05/25 02/06/25 02/07/25 02/08/25 23:59 23:59 23:59 23:59 Intake Total 200 1210 1060 Output Total 1125 1375 Balance -925 -165 1060 Meds/Results Medications: Active Medications Generic Name Dose Route Start Last Admin Trade Name Freq PRN Reason Stop Dose Admin Acetaminophen 650 mg 02/06/25 12:45 Acetaminophen 325 Mg Tablet PO Q4H PRN Mild Pain (1-3) or Fever Hydrocodone Bitart/Acetaminophen 1 tab 02/06/25 22:05 02/08/25 16:50 Hydrocodone/Acetaminophen (*Crx) 5-325 Mg Tablet PO 1 tab Q6H PRN Administration pain 7-10 Amlodipine Besylate 10 mg 02/07/25 09:00 02/08/25 08:42 Amlodipine Besylate 10 Mg Tablet PO 10 mg DAILY ANDER Administration Aspirin 81 mg 02/07/25 09:00 02/08/25 08:41 Aspirin 81 Mg Enteric Tablet PO 81 mg QAM ANDER Administration Atorvastatin Calcium 40 mg 02/07/25 09:00 02/08/25 08:42 Atorvastatin 40 Mg Tablet PO 40 mg DAILY ANDER Administration Ciprofloxacin 500 mg 02/08/25 21:00 Ciprofloxacin 500 Mg Tab PO 02/10/25 21:01 [facility] Clopidogrel Bisulfate 75 mg 02/07/25 09:00 02/08/25 08:41 Clopidogrel Bisulfate 75 Mg Tablet PO 75 mg QAM ANDER Administration Dextrose 12.5 gm 02/06/25 10:53 Dextrose 50% 25 Gm/50 Ml Syringe IV PUSH PRN PRN Hypoglycemia Protocol Diazepam 5 - 10 mg 02/08/25 07:26 Diazepam (*Crx) 5 Mg Tablet PO Q5M PRN CIWA > 15 Famotidine 20 mg 02/07/25 09:00 02/08/25 08:41 Famotidine 20 Mg Tablet PO 20 mg DAILY ANDER Administration Finasteride 5 mg 02/07/25 09:00 02/08/25 08:41 Finasteride 5 Mg Tablet PO 5 mg DAILY ANDER Administration Folic Acid 1 mg 02/07/25 09:00 02/08/25 08:42 Folic Acid 1 Mg Tablet PO 1 mg DAILY ANDER Administration Glucagon 1 mg 02/06/25 10:53 Glucagon For Inj 1 Mg Vial IM PRN PRN Hypoglycemia Protocol Glucose 15 gm 02/06/25 10:53 Glucose Oral Gel 15 Gm Of Glucse In 37.5 Gm Tube PO PRN PRN Hypoglycemia Protocol Hydralazine HCl 10 mg 02/07/25 08:00 Hydralazine Hcl 20 Mg/Ml Vial IV PUSH Q6H PRN Blood Pressure - High Dextrose 1,000 mls @ 100 mls/hr 02/06/25 10:53 Dextrose 5% 1,000 Ml IVPB PRN PRN Hypoglycemia Protocol Albumin Human 50 mls @ 999 mls/hr 02/06/25 13:21 Albutein IVPB 03/08/25 13:20 Q10M PRN HYPOTENSION Levetiracetam 500 mg 02/06/25 22:15 02/08/25 08:41 Levetiracetam 500 Mg Tablet PO 500 mg Q12HR ANDER Administration Metoprolol Tartrate 50 mg 02/06/25 22:10 02/08/25 08:41 Metoprolol Tartrate 50 Mg Tab PO 50 mg Q12HR ANDER Administration Ondansetron HCl 4 mg 02/06/25 12:45 02/08/25 05:23 Ondansetron Inj 4 Mg/2 Ml Vial IV PUSH 4 mg Q4H PRN Administration Nausea Pantoprazole Sodium 40 mg 02/07/25 09:00 02/08/25 08:42 Pantoprazole 40 Mg Tablet PO 40 mg DAILY ANDER Administration Tamsulosin HCl 0.4 mg 02/06/25 22:20 02/07/25 20:51 Tamsulosin Hcl 0.4 Mg Capsule PO 0.4 mg HS ANDER Administration Thiamine HCl 100 mg 02/07/25 09:00 02/08/25 08:42 Thiamine Hcl 100 Mg Tablet PO 100 mg QAM ANDER Administration Radiology Results: ITS Impressions Head CT 02/06/25 10:00 IMPRESSION: 1. No gross acute intracranial process. 2. Several chronic appearing findings including advanced diffuse chronic microvascular white matter changes. 3. For new onset or refractory seizure disorder, correlation with brain MRI recommended for optimal evaluation. Chest X-Ray 02/06/25 10:11 IMPRESSION: 1. No focal acute process. Labs Labs: Laboratory Tests 02/08/25 04:56 02/08/25 04:56 Calcium 8.9 Total Bilirubin 0.4 AST 29 ALT 11 Alkaline Phosphatase 89 Total Protein 6.6 Albumin 3.5 Microbiology 02/06/25 13:28 Urine Clean Catch - Final
[2025-02-08] MEDS: CIPROFLOXACIN 500 MG TAB PO (21:11)
[2025-02-08] MEDS: TAMSULOSIN HCL 0.4 MG CAPSULE PO (21:11)
[2025-02-09] VITALS (26 sets, daily range): BP systolic 137–200; BP diastolic 84–110; PULSE 16–85; RESP 16–19; TEMP 36.4–37.3; O2SAT 98–100
[2025-02-09 05:44] LABS: Hematocrit 21.9 % (42.0-52.0); Immature Granulocyte Percent A 0.5 % (0-0.5); Lymphocytes Absolute Auto 1.94 K/mm3 (0.9-3.2); Mean Corpuscular HGB Conc 31.1 g/dl (32-36); Mean Corpuscular Hemoglobin 30.6 pg (26-34); Mean Corpuscular Volume 98.6 fl (80-100); Nucleated Red Blood Cells Absolute Auto 0.000 K/mm3 (0.0-0.012); Nucleated Red Blood Cells Perc 0.0 % (0.0-0.2); Platelet Count Result 243 k/mm3 (150-375); Red Blood Count 2.22 M/mm3 (4.6-6.20); White Blood Count 10.5 K/mm3 (4.5-10.0)
[2025-02-09 05:45] LABS: Hemoglobin 6.8 g/dL (14.0-18.0)
[2025-02-09 06:24] LABS: Alanine Aminotransferase 10 U/L (6-50); Albumin Level 3.5 g/dL (3.5-5.1); Alkaline Phosphatase 85 U/L (38-126); Anion Gap 3 mmol/L (4-12); Aspartate Amino Transferase 20 U/L (17-59); Bilirubin,Total 0.4 mg/dL (0.2-1.3); Blood Urea Nitrogen 23 mg/dL (9-20); Calcium 9.1 mg/dL (8.4-10.2); Carbon Dioxide 26 mmol/L (22-30); Chloride 105 mmol/L (98-107); Estimated CRCL calculation 7 ml/min; Estimated Glomerular Filt Rate 6; Glucose 87 mg/dL (65-110); Potassium 5.4 mmol/L (3.4-5.0); Sodium 134 mmol/L (137-145); Total Protein 6.5 g/dL (6.3-8.2)
--- NOTE | 2025-02-09 08:45 | PCOTNOTE ---
Attempted to see pt. for occupational therapy evaluation, pt. away from room for dialysis at this time.
--- NOTE | 2025-02-09 09:55 | PCPTNOTE ---
The patient treatment was not able to be completed due to patient out of room for dialysis. Will plan to continue treatment per plan of care.
[2025-02-09] MEDS: EPOETIN ALFA-EPBX 20,000 UNITS/ML VIAL 20000 UNITS IV PUSH (10:00)
[2025-02-09] MEDS: FINASTERIDE 5 MG TABLET PO (10:26)
[2025-02-09] MEDS: CLOPIDOGREL BISULFATE 75 MG TABLET PO (10:26)
[2025-02-09] MEDS: METOPROLOL TARTRATE 50 MG TAB PO ×2 (10:26→20:15)
[2025-02-09] MEDS: FAMOTIDINE 20 MG TABLET PO (10:26)
[2025-02-09] MEDS: ASPIRIN 81 MG ENTERIC TABLET PO (10:26)
[2025-02-09] MEDS: THIAMINE HCL 100 MG TABLET PO (10:26)
[2025-02-09] MEDS: ATORVASTATIN 40 MG TABLET PO (10:26)
[2025-02-09] MEDS: PANTOPRAZOLE 40 MG TABLET PO (10:26)
[2025-02-09] MEDS: FOLIC ACID 1 MG TABLET PO (10:27)
--- NOTE | 2025-02-09 10:50 | P.PNNP_ITS ---
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 (2) Hyperkalemia: Code(s): E87.5 - Hyperkalemia Status: Acute Assessment and Plan: * resolved * as noted by admission labs * due to missed dialysis treatment on Wednesday * HD should correct/maintain stability * follow repeat K+ levels (3) Seizure-like activity: Code(s): R56.9 - Unspecified convulsions Status: Acute Assessment and Plan: * noted on last hospital admission in November 2024 * started on Keppra at that time * due to alcohol withdrawal versus primary seizure d/o versus hypoglycemia versus other(?) * extensive work-up and evaluation noted on November 2024 admission: * Head CT negative (this admission as well as last) * Head/neck CTA noted: - irregularity within the right vertebral artery at the level of C5-C6 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 - marked atherosclerotic vascular calcification of the intracranial carotid artery causing moderate stenosis - no LVO * Brain MRI (12/20/24): - old lacunar infarcts at the bilateral thalami, basal ganglia and internal capsules - no acute intracranial process or abnormal enhancing brain lesions - extensive periventricular predominant nonspecific white matter T2 hyperintensity consistent with chronic small vessel ischemic disease * on ASA/plavix/statin * Neurology following (4) UTI (urinary tract infection): Code(s): N39.0 - Urinary tract infection, site not specified Status: Inactive Assessment and Plan: * admission UA suggestive * follow culture data - negative to date * on antibiotics to complete course of therapy given clinical symptoms (dysuria + urgency) (5) Anemia: Code(s): D64.9 - Anemia, unspecified Status: Chronic Assessment and Plan: * due to ESRD * Epogen with HD * follow trend of H/H (6) Hypertension: Qualifiers: Hypertension type: secondary to other renal disorders Qualified Code(s): I15.1 - Hypertension secondary to other renal disorders Code(s): I10 - Essential (primary) hypertension Status: Chronic Assessment and Plan: * resume home medications * hydralazine PRN * follow trend of hemodynamics - (7) Hypoglycemia: Code(s): E16.2 - Hypoglycemia, unspecified Status: Acute Assessment and Plan: * incidentally noted in the ER * resolved (8) Alcohol abuse: Code(s): F10.10 - Alcohol abuse, uncomplicated Status: Acute Assessment and Plan: * known history * [facility] protocol * on thiamine and folate Will continue to follow. Subjective Date/time seen: 02/09/25 10:50 Interval history: Follow-up for end stage renal disease on hemodialysis. Tolerating hemodialysis treatment at the time of my visit (seen on HD at 10:40am); resting comfortably when seen; low H/H noted by AM labs but plan to repeat H/H post HD to reassess need for PRBC transfusion; no other acute complaints voiced; no issues/events overnight or earlier this morning. Exam Narrative: General: elderly male in NAD Heart: normal S1 and S2; no rub Lungs: clear anteriorly Abdomen: soft, nontender, nondistended, positive bowel sounds Extremities: no cyanosis or clubbing; no edema Skin: no rash Objective Data Vital Signs Vital Signs: Vital Signs Temp Pulse Resp BP Pulse Ox O2 Del Method 02/09/25 10:45 68 169/96 H 02/09/25 10:30 76 172/110 H 02/09/25 10:26 80 02/09/25 10:15 85 185/93 H 02/09/25 10:00 75 200/97 H 02/09/25 09:45 70 164/94 H 02/09/25 09:30 80 169/96 H 02/09/25 09:15 70 172/100 H 02/09/25 09:00 77 158/93 H 02/09/25 08:45 62 193/101 H 02/09/25 08:30 71 184/100 H 02/09/25 08:15 65 196/99 H 02/09/25 08:07 64 191/103 H 02/09/25 08:00 79 19 98 Room Air 02/09/25 07:56 98.4 F 16 L 16 189/97 H 100 02/09/25 04:48 97.6 F 69 18 169/84 H 100 02/08/25 21:12 67 02/08/25 21:11 97.6 F 67 20 166/80 H 100 02/08/25 20:00 69 18 100 Room Air Intake/Output Intake/Output: Intake & Output 02/06/25 02/07/25 02/08/25 02/09/25 23:59 23:59 23:59 23:59 Intake Total 200 1210 1060 906 Output Total 1125 1375 2500 Balance -925 -165 1060 -1594 Meds/Results Medications: Active Medications Generic Name Dose Route Start Last Admin Trade Name Freq PRN Reason Stop Dose Admin Acetaminophen 650 mg 02/06/25 12:45 Acetaminophen 325 Mg Tablet PO Q4H PRN Mild Pain (1-3) or Fever Hydrocodone Bitart/Acetaminophen 1 tab 02/06/25 22:05 02/08/25 16:50 Hydrocodone/Acetaminophen (*Crx) 5-325 Mg Tablet PO 1 tab Q6H PRN Administration pain 7-10 Amlodipine Besylate 10 mg 02/07/25 09:00 02/09/25 10:27 Amlodipine Besylate 10 Mg Tablet PO 10 mg DAILY ANDER Administration Aspirin 81 mg 02/07/25 09:00 02/09/25 10:26 Aspirin 81 Mg Enteric Tablet PO 81 mg QAM ANDER Administration Atorvastatin Calcium 40 mg 02/07/25 09:00 02/09/25 10:26 Atorvastatin 40 Mg Tablet PO 40 mg DAILY ANDER Administration Ciprofloxacin 500 mg 02/08/25 21:00 02/08/25 21:11 Ciprofloxacin 500 Mg Tab PO 02/10/25 21:01 500 mg HS ANDER Administration Clopidogrel Bisulfate 75 mg 02/07/25 09:00 02/09/25 10:26 Clopidogrel Bisulfate 75 Mg Tablet PO 75 mg QAM ANDER Administration Dextrose 12.5 gm 02/06/25 10:53 Dextrose 50% 25 Gm/50 Ml Syringe IV PUSH PRN PRN Hypoglycemia Protocol Diazepam 5 - 10 mg 02/08/25 07:26 Diazepam (*Crx) 5 Mg Tablet PO Q5M PRN CIWA > 15 Famotidine 20 mg 02/07/25 09:00 02/09/25 10:26 Famotidine 20 Mg Tablet PO 20 mg DAILY ANDER Administration Finasteride 5 mg 02/07/25 09:00 02/09/25 10:26 Finasteride 5 Mg Tablet PO 5 mg DAILY ANDER Administration Folic Acid 1 mg 02/07/25 09:00 02/09/25 10:27 Folic Acid 1 Mg Tablet PO 1 mg DAILY ANDER Administration Glucagon 1 mg 02/06/25 10:53 Glucagon For Inj 1 Mg Vial IM PRN PRN Hypoglycemia Protocol Glucose 15 gm 02/06/25 10:53 Glucose Oral Gel 15 Gm Of Glucse In 37.5 Gm Tube PO PRN PRN Hypoglycemia Protocol Hydralazine HCl 10 mg 02/07/25 08:00 Hydralazine Hcl 20 Mg/Ml Vial IV PUSH Q6H PRN Blood Pressure - High Dextrose 1,000 mls @ 100 mls/hr 02/06/25 10:53 Dextrose 5% 1,000 Ml IVPB PRN PRN Hypoglycemia Protocol Albumin Human 50 mls @ 999 mls/hr 02/06/25 13:21 Albutein IVPB 03/08/25 13:20 Q10M PRN HYPOTENSION Levetiracetam 500 mg 02/06/25 22:15 02/09/25 10:26 Levetiracetam 500 Mg Tablet PO 500 mg Q12HR ANDER Administration Metoprolol Tartrate 50 mg 02/06/25 22:10 02/09/25 10:26 Metoprolol Tartrate 50 Mg Tab PO 50 mg Q12HR ANDER Administration Ondansetron HCl 4 mg 02/06/25 12:45 02/08/25 05:23 Ondansetron Inj 4 Mg/2 Ml Vial IV PUSH 4 mg Q4H PRN Administration Nausea Pantoprazole Sodium 40 mg 02/07/25 09:00 02/09/25 10:26 Pantoprazole 40 Mg Tablet PO 40 mg DAILY ANDER Administration Tamsulosin HCl 0.4 mg 02/06/25 22:20 02/08/25 21:11 Tamsulosin Hcl 0.4 Mg Capsule PO 0.4 mg HS ANDER Administration Thiamine HCl 100 mg 02/07/25 09:00 02/09/25 10:26 Thiamine Hcl 100 Mg Tablet PO 100 mg QAM ANDER Administration Radiology Results: ITS Impressions Head CT 02/06/25 10:00 IMPRESSION: 1. No gross acute intracranial process. 2. Several chronic appearing findings including advanced diffuse chronic microvascular white matter changes. 3. For new onset or refractory seizure disorder, correlation with brain MRI recommended for optimal evaluation. Chest X-Ray 02/06/25 10:11 IMPRESSION: 1. No focal acute process. Labs Labs: Laboratory Results 02/09/25 05:01 WBC 10.5 H Hgb 6.8 L* Hct 21.9 L Plt Count 243 Sodium 134 L Potassium 5.4 H Chloride 105 Carbon Dioxide 26 Anion Gap 3 L BUN 23 H Creatinine 9.35 H Estim Creat Clear Calc 7 Estimated GFR 6 L Glucose 87 Calcium 9.1 Total Bilirubin 0.4 AST 20 ALT 10 Alkaline Phosphatase 85 Total Protein 6.5 Albumin 3.5
[2025-02-09] MEDS: diphenhydrAMINE HCl CAP 25 MG CAPSULE 50 MG PO (11:30)
--- NOTE | 2025-02-09 11:58 | PM.IMPN2 ---
Assessment and Plan Assessment and Plan (1) Seizure-like activity: Code(s): R56.9 - Unspecified convulsions Status: Acute Assessment and Plan: The patient presented to the ER after eating seizure-like activity. Cause for seizure is uncertain. Patient does have a history of seizures in the past with significant history of prior alcoholism. Also incidentally found to be hypoglycemic in the ED (since resolved). Primary seizure disorder vs alcohol withdrawal vs hypoglycemia for active cause of seizure-like activity. He patient has not had any recurrence of seizure since admission to the hospital. He did receive 1 IV dose of Keppra on arrival to the ER and a dose of diazepam. Is unclear if the patient has been taking his seizure medications as directed. Will resume the patient's home Keppra and place patient on seizure precautions. Neurology was consult from the ER. -Per records, he was admitted to the hospital for similar symptoms from 12/19 through 12/26. Started on Keppra at that time. Evidence of prior CVA noted on MRI November 2024 with infarcts in bilateral basal ganglia and bilateral her periventricular white matter -Pending neuro recs if any, per note today, no recs for additional orders. Spoke with neuro today, rec only to continue Keppra. -No focal deficits (2) Hyperkalemia: Code(s): E87.5 - Hyperkalemia Status: Acute Assessment and Plan: The patient did have marked hyperkalemia and metabolic acidosis due to missing hemodialysis. The patient underwent emergent hemodialysis on 02/07. His repeat electrolyte panel had normalized to more expected values drip patient with compensated he end-stage renal disease. Potassium is now normalized. Nephrology has been consulted for dialysis management. The patient did receive IV insulin dextrose and calcium carbonate in the ER will is Lokel[place]. Will repeat electrolyte panel in a.m.. -Neph following --outpatient dialysis clinic = [facility] --Primary commissary assistant = Dr. Deluca -Continue M/W/F dialysis schedule while inpt -K 5.4 with AM labs today, redraw4.0 post dialysis, will continue to monitor daily (3) ESRD on dialysis: Code(s): N18.6 - End stage renal disease; Z99.2 - Dependence on renal dialysis Status: Acute Assessment and Plan: Pt missed x1 day dialysis, regular schedule is M/W/F -See above -Hgb 6.8 with AM labs today, redraw after HD 7.7, No need to transfuse, will continue with daily labs (4) Hypoglycemia: Code(s): E16.2 - Hypoglycemia, unspecified Status: Acute Assessment and Plan: Incidentally found to be hypoglycemic on arrival to the ER, resolved. -Daily labs (5) Hypertension: Qualifiers: Hypertension type: secondary to other renal disorders Qualified Code(s): I15.1 - Hypertension secondary to other renal disorders Code(s): I10 - Essential (primary) hypertension Status: Chronic Assessment and Plan: Resume patient's home metoprolol, amlodipine. Had missed doses on 02/06 -Added Hydral IV PRN for >180/100 -HD M// (6) Alcohol abuse: Code(s): F10.10 - Alcohol abuse, uncomplicated Status: Acute Assessment and Plan: The patient is not having any obvious symptoms of alcohol withdrawal he does not have any active tremors diaphoresis or evidence of hallucination. Will monitor CIWA scores. Will continue home thiamin and folic acid supplementation. Will add benzodiazepines if patient's CIWA score becomes elevated. - Per night nursing, pt had been more tremulous and anxious. Most recent CIWA score of 13 today. Upon my visit, pt sound asleep after [place] dose. Placed PO Diazepam PRN order today. - Pt reports drinking x1 beer and 1/2 pint daily prior to admission, last drink 02/05 - CIWA scores undetectable today, got anxious during HD today once and was given Benadryl 50mg PO as he sometimes receives this during treatment, this helped (7) UTI (urinary tract infection): Qualifiers: Hematuria presence: without hematuria Urinary tract infection type: acute cystitis Qualified Code(s): N30.00 - Acute cystitis without hematuria Code(s): N39.0 - Urinary tract infection, site not specified Status: Acute Assessment and Plan: Patient did have an abnormal urinalysis and does have significant suprapubic tenderness. He does have a history of he polymicrobial UTI recently with 1 of the organisms being he she Pseudomonas. Patient has been placed on cefepime after review of prior microbiology. White count was elevated in the ER and a component of patient's confusion could be related to underlying UTI -BC not obtained, will obtain if pt status worsens -UC NGTD -Reports that initially he was having urinary frequency and urgency, will continue abx for x5 day course, switching to oral Cipro today -Switched from cefepime IV to cipro PO on 02/09, will continue until therapy complete -MRSA nasal negative -WBC slight rise today at 10.5 Plan Continue po Cipro for UTI, continue inpt dialysis, pending PT/OT, pending SNF placement Medical Record Review I have reviewed the following patient records and this information was taken into consideration when formulating the assessment and plan.: previous labs Consultations Consultations: I have discussed the care of this pt with the consulting providers. Time Spent With Patient Time with patient: 25 - 35 minutes Subjective Date/time seen: 02/09/25 1114 Interval history: Visited pt during his HD treatment. No sx today other than feeling anxious. He states that when this happens during dialysis that he has taken Benadryl before and it helps. Pt denies SOB and CP or any other sx. Review of Systems Review of Systems: All systems reviewed & are unremarkable except as noted in HPI and below Exam Narrative: Weight 67.5 kg BMI 20.2 Const: Other: No acute distress, he well-developed well-nourished HENMT: Other: He head is normocephalic atraumatic, mucous membranes are tacky, no oral pharyngeal erythema Eyes: Other: Positive conjunctival pallor, no scleral icterus, pupils are equal and reactive Neck: Other: No JVD, no lymphadenopathy Chest: Other: Tunneled dialysis catheter right upper chest Resp: Other: Clear to auscultation bilaterally, no increased work of breathing Cardio: Other: Regular rate, regular rhythm, 2+ bilateral radial and pedal pulses Tele 78bpm GI: Other: Soft, nontender, nondistended, normoactive bowel sounds : Other: Suprapubic tenderness noted on exam Skin: Other: No jaundice, no pallor Neuro: Other: A&O x4, no localizing neurologic deficits noted Extrem: Other: No clubbing, cyanosis or edema LUE with full cast applied Psych: Other: A&O x4, anxious today Objective Data Vital Signs Vital Signs: Vital Signs - 24 hr 02/08/25 12:04 02/08/25 14:00 02/08/25 14:33 Temperature 98.1 F Pulse Rate 67 68 Respiratory Rate 14 Blood Pressure 159/79 H Pulse Oximetry 100 Oxygen Delivery Room Air 02/08/25 16:01 02/08/25 20:00 02/08/25 21:11 Temperature 97.6 F Pulse Rate 68 69 67 Respiratory Rate 18 20 Blood Pressure 166/80 H Pulse Oximetry 100 100 Oxygen Delivery Room Air 02/08/25 21:12 02/09/25 04:48 02/09/25 07:56 Temperature 97.6 F 98.4 F Pulse Rate 67 69 16 L Respiratory Rate 18 16 Blood Pressure 169/84 H 189/97 H Pulse Oximetry 100 100 Oxygen Delivery 02/09/25 08:07 02/09/25 08:15 02/09/25 08:30 Temperature Pulse Rate 64 65 71 Respiratory Rate Blood Pressure 191/103 H 196/99 H 184/100 H Pulse Oximetry Oxygen Delivery 02/09/25 08:45 02/09/25 09:00 02/09/25 09:15 Temperature Pulse Rate 62 77 70 Respiratory Rate Blood Pressure 193/101 H 158/93 H 172/100 H Pulse Oximetry Oxygen Delivery 02/09/25 09:30 02/09/25 09:45 02/09/25 10:00 Temperature Pulse Rate 80 70 75 Respiratory Rate Blood Pressure 169/96 H 164/94 H 200/97 H Pulse Oximetry Oxygen Delivery 02/09/25 10:15 02/09/25 10:26 02/09/25 10:30 Temperature Pulse Rate 85 80 76 Respiratory Rate Blood Pressure 185/93 H 172/110 H Pulse Oximetry Oxygen Delivery 02/09/25 10:45 02/09/25 11:00 02/09/25 11:15 Temperature Pulse Rate 68 72 72 Respiratory Rate Blood Pressure 169/96 H 167/100 H 137/99 H Pulse Oximetry Oxygen Delivery 02/09/25 11:30 Temperature Pulse Rate 70 Respiratory Rate Blood Pressure 174/97 H Pulse Oximetry Oxygen Delivery Intake/Output Intake/Output: Intake & Output 02/06/25 02/07/25 02/08/25 02/09/25 23:59 23:59 23:59 23:59 Intake Total 200 1210 1060 430 Output Total 1125 1375 0 Balance -925 -165 1060 430 Meds/Results Medications: Active Medications Generic Name Dose Route Start Last Admin Trade Name Freq PRN Reason Stop Dose Admin Acetaminophen 650 mg 02/06/25 12:45 Acetaminophen 325 Mg Tablet PO Q4H PRN Mild Pain (1-3) or Fever Hydrocodone Bitart/Acetaminophen 1 tab 02/06/25 22:05 02/08/25 16:50 Hydrocodone/Acetaminophen (*Crx) 5-325 Mg Tablet PO 1 tab Q6H PRN Administration pain 7-10 Amlodipine Besylate 10 mg 02/07/25 09:00 02/09/25 10:27 Amlodipine Besylate 10 Mg Tablet PO 10 mg DAILY ANDER Administration Aspirin 81 mg 02/07/25 09:00 02/09/25 10:26 Aspirin 81 Mg Enteric Tablet PO 81 mg QAM ANDER Administration Atorvastatin Calcium 40 mg 02/07/25 09:00 02/09/25 10:26 Atorvastatin 40 Mg Tablet PO 40 mg DAILY ANDER Administration Ciprofloxacin 500 mg 02/08/25 21:00 02/08/25 21:11 Ciprofloxacin 500 Mg Tab PO 02/10/25 21:01 500 mg HS ANDER Administration Clopidogrel Bisulfate 75 mg 02/07/25 09:00 02/09/25 10:26 Clopidogrel Bisulfate 75 Mg Tablet PO 75 mg QAM ANDER Administration Dextrose 12.5 gm 02/06/25 10:53 Dextrose 50% 25 Gm/50 Ml Syringe IV PUSH PRN PRN Hypoglycemia Protocol Diazepam 5 - 10 mg 02/08/25 07:26 Diazepam (*Crx) 5 Mg Tablet PO Q5M PRN CIWA > 15 Epoetin Rodney-epbx 20,000 units 02/09/25 17:15 02/09/25 10:00 Epoetin Rodney-Epbx 20,000 Units/Ml Vial IV PUSH 02/09/25 17:16 20,000 units ONCE ONE Administration Famotidine 20 mg 02/07/25 09:00 02/09/25 10:26 Famotidine 20 Mg Tablet PO 20 mg DAILY ANDER Administration Finasteride 5 mg 02/07/25 09:00 02/09/25 10:26 Finasteride 5 Mg Tablet PO 5 mg DAILY ANDER Administration Folic Acid 1 mg 02/07/25 09:00 02/09/25 10:27 Folic Acid 1 Mg Tablet PO 1 mg DAILY ANDER Administration Glucagon 1 mg 02/06/25 10:53 Glucagon For Inj 1 Mg Vial IM PRN PRN Hypoglycemia Protocol Glucose 15 gm 02/06/25 10:53 Glucose Oral Gel 15 Gm Of Glucse In 37.5 Gm Tube PO PRN PRN Hypoglycemia Protocol Hydralazine HCl 10 mg 02/07/25 08:00 Hydralazine Hcl 20 Mg/Ml Vial IV PUSH Q6H PRN Blood Pressure - High Dextrose 1,000 mls @ 100 mls/hr 02/06/25 10:53 Dextrose 5% 1,000 Ml IVPB PRN PRN Hypoglycemia Protocol Albumin Human 50 mls @ 999 mls/hr 02/06/25 13:21 Albutein IVPB 03/08/25 13:20 Q10M PRN HYPOTENSION Levetiracetam 500 mg 02/06/25 22:15 02/09/25 10:26 Levetiracetam 500 Mg Tablet PO 500 mg Q12HR ANDER Administration Metoprolol Tartrate 50 mg 02/06/25 22:10 02/09/25 10:26 Metoprolol Tartrate 50 Mg Tab PO 50 mg Q12HR ANDER Administration Ondansetron HCl 4 mg 02/06/25 12:45 02/08/25 05:23 Ondansetron Inj 4 Mg/2 Ml Vial IV PUSH 4 mg Q4H PRN Administration Nausea Pantoprazole Sodium 40 mg 02/07/25 09:00 02/09/25 10:26 Pantoprazole 40 Mg Tablet PO 40 mg DAILY ANDER Administration Tamsulosin HCl 0.4 mg 02/06/25 22:20 02/08/25 21:11 Tamsulosin Hcl 0.4 Mg Capsule PO 0.4 mg HS ANDER Administration Thiamine HCl 100 mg 02/07/25 09:00 02/09/25 10:26 Thiamine Hcl 100 Mg Tablet PO 100 mg QAM ANDER Administration Radiology Results: ITS Impressions Head CT 02/06/25 10:00 IMPRESSION: 1. No gross acute intracranial process. 2. Several chronic appearing findings including advanced diffuse chronic microvascular white matter changes. 3. For new onset or refractory seizure disorder, correlation with brain MRI recommended for optimal evaluation. Chest X-Ray 02/06/25 10:11 IMPRESSION: 1. No focal acute process. Labs Labs: Laboratory Results - last 24 hr 02/08/25 02/08/25 02/08/25 12:02 16:40 21:09 WBC RBC Hgb Hct MCV MCH MCHC RDW Plt Count MPV Immature Gran % (Auto) Neut % (Auto) Lymph % (Auto) [place] % (Auto) Eos % (Auto) Baso % (Auto) Lymph # (Auto) [place] # (Auto) Eos # (Auto) Baso # (Auto) Abs Immat Gran (auto) Absolute Neuts (auto) Absolute Nucleated RBC Nucleated RBC % Sodium Potassium Chloride Carbon Dioxide Anion Gap BUN Creatinine Estim Creat Clear Calc Estimated GFR Glucose POC Capillary Glucose 96 110 H 117 H Calcium Total Bilirubin AST ALT Alkaline Phosphatase Total Protein Albumin 02/09/25 02/09/25 05:01 08:24 WBC 10.5 H RBC 2.22 L Hgb 6.8 L* Hct 21.9 L MCV 98.6 MCH 30.6 MCHC 31.1 L RDW 17.1 H Plt Count 243 MPV 10.8 H Immature Gran % (Auto) 0.5 Neut % (Auto) 71.3 Lymph % (Auto) 18.5 [place] % (Auto) 7.0 Eos % (Auto) 2.4 Baso % (Auto) 0.3 Lymph # (Auto) 1.94 [place] # (Auto) 0.7 H Eos # (Auto) 0.3 Baso # (Auto) 0.0 Abs Immat Gran (auto) 0.05 H Absolute Neuts (auto) 7.5 H Absolute Nucleated RBC 0.000 Nucleated RBC % 0.0 Sodium 134 L Potassium 5.4 H Chloride 105 Carbon Dioxide 26 Anion Gap 3 L BUN 23 H Creatinine 9.35 H Estim Creat Clear Calc 7 Estimated GFR 6 L Glucose 87 POC Capillary Glucose 91 Calcium 9.1 Total Bilirubin 0.4 AST 20 ALT 10 Alkaline Phosphatase 85 Total Protein 6.5 Albumin 3.5 Quality VTE Prophylaxis VTE prophylaxis: mechanical ordered
[2025-02-09 14:16] LABS: Hematocrit 24.5 % (42.0-52.0); Hemoglobin 7.7 g/dL (14.0-18.0); Mean Corpuscular HGB Conc 31.4 g/dl (32-36); Mean Corpuscular Hemoglobin 30.4 pg (26-34); Mean Corpuscular Volume 96.8 fl (80-100); Platelet Count Result 267 k/mm3 (150-375); Red Blood Count 2.53 M/mm3 (4.6-6.20); White Blood Count 11.5 K/mm3 (4.5-10.0)
[2025-02-09 14:32] LABS: Alanine Aminotransferase 14 U/L (6-50); Albumin Level 3.8 g/dL (3.5-5.1); Alkaline Phosphatase 88 U/L (38-126); Anion Gap 5 mmol/L (4-12); Aspartate Amino Transferase 23 U/L (17-59); Bilirubin,Total 0.3 mg/dL (0.2-1.3); Blood Urea Nitrogen 7 mg/dL (9-20); Calcium 9.0 mg/dL (8.4-10.2); Carbon Dioxide 30 mmol/L (22-30); Chloride 101 mmol/L (98-107); Estimated CRCL calculation 17 ml/min; Estimated Glomerular Filt Rate 15; Glucose 143 mg/dL (65-110); Potassium 4.0 mmol/L (3.4-5.0); Sodium 136 mmol/L (137-145); Total Protein 7.2 g/dL (6.3-8.2)
[2025-02-09] MEDS: TAMSULOSIN HCL 0.4 MG CAPSULE PO (20:15)
[2025-02-09] MEDS: HYDROcodone/acetaminophen (*CRX) 5-325 MG TABLET 1 TAB PO (20:15)
[2025-02-09] MEDS: CIPROFLOXACIN 500 MG TAB PO (20:15)
[2025-02-09] MEDS: ACETAMINOPHEN 325 MG TABLET 650 MG PO (22:24)
[2025-02-10] MEDS: HYDROcodone/acetaminophen (*CRX) 5-325 MG TABLET 1 TAB PO ×4 (03:09→21:23)
[2025-02-10 04:06] VITALS: BP 161/89; PULSE 67; RESP 18; TEMP 36.7; O2SAT 100
[2025-02-10 05:59] LABS: Hematocrit 23.3 % (42.0-52.0); Hemoglobin 7.2 g/dL (14.0-18.0); Immature Granulocyte Percent A 0.4 % (0-0.5); Lymphocytes Absolute Auto 2.60 K/mm3 (0.9-3.2); Mean Corpuscular HGB Conc 30.9 g/dl (32-36); Mean Corpuscular Hemoglobin 30.3 pg (26-34); Mean Corpuscular Volume 97.9 fl (80-100); Nucleated Red Blood Cells Absolute Auto 0.000 K/mm3 (0.0-0.012); Nucleated Red Blood Cells Perc 0.0 % (0.0-0.2); Platelet Count Result 254 k/mm3 (150-375); Red Blood Count 2.38 M/mm3 (4.6-6.20); White Blood Count 10.0 K/mm3 (4.5-10.0)
[2025-02-10 06:19] LABS: Alanine Aminotransferase 10 U/L (6-50); Albumin Level 3.5 g/dL (3.5-5.1); Alkaline Phosphatase 89 U/L (38-126); Anion Gap 2 mmol/L (4-12); Aspartate Amino Transferase 26 U/L (17-59); Bilirubin,Total 0.3 mg/dL (0.2-1.3); Blood Urea Nitrogen 16 mg/dL (9-20); Calcium 8.8 mg/dL (8.4-10.2); Carbon Dioxide 31 mmol/L (22-30); Chloride 101 mmol/L (98-107); Estimated CRCL calculation 12 ml/min; Estimated Glomerular Filt Rate 10; Glucose 89 mg/dL (65-110); Potassium 4.5 mmol/L (3.4-5.0); Sodium 134 mmol/L (137-145); Total Protein 6.7 g/dL (6.3-8.2)
[2025-02-10] MEDS: ASPIRIN 81 MG ENTERIC TABLET PO (09:03)
[2025-02-10] MEDS: CLOPIDOGREL BISULFATE 75 MG TABLET PO (09:03)
[2025-02-10] MEDS: THIAMINE HCL 100 MG TABLET PO (09:03)
[2025-02-10] MEDS: ATORVASTATIN 40 MG TABLET PO (09:03)
[2025-02-10] MEDS: FAMOTIDINE 20 MG TABLET PO (09:03)
[2025-02-10 09:04] VITALS: PULSE 68; RESP 18; O2SAT 100
[2025-02-10] MEDS: FINASTERIDE 5 MG TABLET PO (09:04)
[2025-02-10] MEDS: FOLIC ACID 1 MG TABLET PO (09:04)
[2025-02-10] MEDS: PANTOPRAZOLE 40 MG TABLET PO (09:04)
[2025-02-10] MEDS: METOPROLOL TARTRATE 50 MG TAB PO ×2 (09:04→21:24)
--- NOTE | 2025-02-10 09:17 | PM.IMPN2 ---
Assessment and Plan Assessment and Plan (1) Seizure-like activity: Code(s): R56.9 - Unspecified convulsions Status: Acute Assessment and Plan: The patient presented to the ER after eating seizure-like activity. Cause for seizure is uncertain. Patient does have a history of seizures in the past with significant history of prior alcoholism. Also incidentally found to be hypoglycemic in the ED (since resolved). Primary seizure disorder vs alcohol withdrawal vs hypoglycemia for active cause of seizure-like activity. He patient has not had any recurrence of seizure since admission to the hospital. He did receive 1 IV dose of Keppra on arrival to the ER and a dose of diazepam. Is unclear if the patient has been taking his seizure medications as directed. Will resume the patient's home Keppra and place patient on seizure precautions. Neurology was consult from the ER. -Per records, he was admitted to the hospital for similar symptoms from 12/19 through 12/26. Started on Keppra at that time. Evidence of prior CVA noted on MRI November 2024 with infarcts in bilateral basal ganglia and bilateral her periventricular white matter -Pending neuro recs if any, per note today, no recs for additional orders. Spoke with neuro today, rec only to continue Keppra. -No focal deficits (2) Hyperkalemia: Code(s): E87.5 - Hyperkalemia Status: Acute Assessment and Plan: The patient did have marked hyperkalemia and metabolic acidosis due to missing hemodialysis. The patient underwent emergent hemodialysis on 02/07. His repeat electrolyte panel had normalized to more expected values drip patient with compensated he end-stage renal disease. Potassium is now normalized. Nephrology has been consulted for dialysis management. The patient did receive IV insulin dextrose and calcium carbonate in the ER will is kelnm. Will repeat electrolyte panel in a.m.. -Neph following --outpatient dialysis clinic = [facility] --Primary donation specialist = Dr. Deluca -Continue M/W/F dialysis schedule while inpt -K WDL with AM labs (3) ESRD on dialysis: Code(s): N18.6 - End stage renal disease; Z99.2 - Dependence on renal dialysis Status: Acute Assessment and Plan: Pt missed x1 day dialysis, regular schedule is M/W/F -See above -Hgb 7.2 with AM labs (4) Hypoglycemia: Code(s): E16.2 - Hypoglycemia, unspecified Status: Acute Assessment and Plan: Incidentally found to be hypoglycemic on arrival to the ER, resolved. -Daily labs (5) Hypertension: Qualifiers: Hypertension type: secondary to other renal disorders Qualified Code(s): I15.1 - Hypertension secondary to other renal disorders Code(s): I10 - Essential (primary) hypertension Status: Chronic Assessment and Plan: Resume patient's home metoprolol, amlodipine. Had missed doses on 02/06 -Added Hydral IV PRN for >180/100 -HD M/W/F (6) Alcohol abuse: Code(s): F10.10 - Alcohol abuse, uncomplicated Status: Acute Assessment and Plan: The patient is not having any obvious symptoms of alcohol withdrawal he does not have any active tremors diaphoresis or evidence of hallucination. Will monitor CIWA scores. Will continue home thiamin and folic acid supplementation. Will add benzodiazepines if patient's CIWA score becomes elevated. - Per night nursing, pt had been more tremulous and anxious. Most recent CIWA score of 13 today. Upon my visit, pt sound asleep after Stella dose. Placed PO Diazepam PRN order today. - Pt reports drinking x1 beer and 1/2 pint daily prior to admission, last drink 02/05 - CIWA scores undetectable (7) UTI (urinary tract infection): Qualifiers: Hematuria presence: without hematuria Urinary tract infection type: acute cystitis Qualified Code(s): N30.00 - Acute cystitis without hematuria Code(s): N39.0 - Urinary tract infection, site not specified Status: Acute Assessment and Plan: Patient did have an abnormal urinalysis and does have significant suprapubic tenderness. He does have a history of he polymicrobial UTI recently with 1 of the organisms being he she Pseudomonas. Patient has been placed on cefepime after review of prior microbiology. White count was elevated in the ER and a component of patient's confusion could be related to underlying UTI -BC not obtained, will obtain if pt status worsens -UC NGTD -Reports that initially he was having urinary frequency and urgency, will continue abx for x5 day course, switching to oral Cipro -Switched from cefepime IV to cipro PO on 02/09, will continue until therapy complete -MRSA nasal negative -WBC WDL Plan Continue po Cipro for UTI, colace for constipation today, continue inpt dialysis, PT/OT (both recommending SNF), pending SNF placement Medical Record Review I have reviewed the following patient records and this information was taken into consideration when formulating the assessment and plan.: previous labs Consultations Consultations: I have discussed the care of this pt with the consulting providers. Time Spent With Patient Time with patient: 25 - 35 minutes Subjective Date/time seen: 02/10/25 1254 Interval history: Pt sitting up on his chair upon my arrival. Pt with no complaints today. Pt agreeable with the plan for SNF placement for continued therapy. Review of Systems Review of Systems: All systems reviewed & are unremarkable except as noted in HPI and below Exam Narrative: Weight 67.5 kg BMI 20.2 Const: Other: No acute distress, he well-developed well-nourished HENMT: Other: He head is normocephalic atraumatic, mucous membranes are tacky, no oral pharyngeal erythema Eyes: Other: Positive conjunctival pallor, no scleral icterus, pupils are equal and reactive Neck: Other: No JVD, no lymphadenopathy Chest: Other: Tunneled dialysis catheter right upper chest Resp: Other: Clear to auscultation bilaterally, no increased work of breathing Cardio: Other: Regular rate, regular rhythm, 2+ bilateral radial and pedal pulses Tele 78bpm GI: Other: Soft, nontender, nondistended, normoactive bowel sounds : Other: Suprapubic tenderness noted on exam Skin: Other: No jaundice, no pallor Neuro: Other: A&O x4, no localizing neurologic deficits noted Extrem: Other: No clubbing, cyanosis or edema LUE with full cast applied Psych: Other: A&O x4 Objective Data Vital Signs Vital Signs: Vital Signs - 24 hr 02/09/25 09:30 02/09/25 09:45 02/09/25 10:00 Temperature Pulse Rate 80 70 75 Respiratory Rate Blood Pressure 169/96 H 164/94 H 200/97 H Pulse Oximetry Oxygen Delivery 02/09/25 10:15 02/09/25 10:26 02/09/25 10:30 Temperature Pulse Rate 85 80 76 Respiratory Rate Blood Pressure 185/93 H 172/110 H Pulse Oximetry Oxygen Delivery 02/09/25 10:45 02/09/25 11:00 02/09/25 11:15 Temperature Pulse Rate 68 72 72 Respiratory Rate Blood Pressure 169/96 H 167/100 H 137/99 H Pulse Oximetry Oxygen Delivery 02/09/25 11:30 02/09/25 11:40 02/09/25 11:46 Temperature 97.5 F L Pulse Rate 70 79 74 Respiratory Rate 16 Blood Pressure 174/97 H 165/99 H 163/100 H Pulse Oximetry 100 Oxygen Delivery 02/09/25 14:00 02/09/25 14:36 02/09/25 17:35 Temperature 98.1 F Pulse Rate 79 Respiratory Rate 19 Blood Pressure 154/88 H Pulse Oximetry 98 Oxygen Delivery Room Air Room Air 02/09/25 20:00 02/09/25 20:15 02/09/25 20:42 Temperature 99.2 F Pulse Rate 76 74 76 Respiratory Rate 18 18 Blood Pressure 178/89 H Pulse Oximetry 100 100 Oxygen Delivery Room Air 02/10/25 04:06 02/10/25 09:04 Temperature 98.0 F Pulse Rate 67 68 Respiratory Rate 18 Blood Pressure 161/89 H Pulse Oximetry 100 Oxygen Delivery Intake/Output Intake/Output: Intake & Output 02/07/25 02/08/25 02/09/25 02/10/25 23:59 23:59 23:59 23:59 Intake Total 1210 1060 1146 530 Output Total 1375 2500 100 Balance -165 1060 -1354 430 Meds/Results Medications: Active Medications Generic Name Dose Route Start Last Admin Trade Name Freq PRN Reason Stop Dose Admin Acetaminophen 650 mg 02/06/25 12:45 02/09/25 22:24 Acetaminophen 325 Mg Tablet PO 650 mg Q4H PRN Administration Mild Pain (1-3) or Fever Hydrocodone Bitart/Acetaminophen 1 tab 02/06/25 22:05 02/10/25 09:11 Hydrocodone/Acetaminophen (*Crx) 5-325 Mg Tablet PO 1 tab Q6H PRN Administration pain 7-10 Amlodipine Besylate 10 mg 02/07/25 09:00 02/10/25 09:04 Amlodipine Besylate 10 Mg Tablet PO 10 mg DAILY ANDER Administration Aspirin 81 mg 02/07/25 09:00 02/10/25 09:03 Aspirin 81 Mg Enteric Tablet PO 81 mg QAM ANDER Administration Atorvastatin Calcium 40 mg 02/07/25 09:00 02/10/25 09:03 Atorvastatin 40 Mg Tablet PO 40 mg DAILY ANDER Administration Ciprofloxacin 500 mg 02/08/25 21:00 02/09/25 20:15 Ciprofloxacin 500 Mg Tab PO 02/10/25 21:01 500 mg HS ANDER Administration Clopidogrel Bisulfate 75 mg 02/07/25 09:00 02/10/25 09:03 Clopidogrel Bisulfate 75 Mg Tablet PO 75 mg QAM ANDER Administration Dextrose 12.5 gm 02/06/25 10:53 Dextrose 50% 25 Gm/50 Ml Syringe IV PUSH PRN PRN Hypoglycemia Protocol Diazepam 5 - 10 mg 02/08/25 07:26 Diazepam (*Crx) 5 Mg Tablet PO Q5M PRN CIWA > 15 Famotidine 20 mg 02/07/25 09:00 02/10/25 09:03 Famotidine 20 Mg Tablet PO 20 mg DAILY ANDER Administration Finasteride 5 mg 02/07/25 09:00 02/10/25 09:04 Finasteride 5 Mg Tablet PO 5 mg DAILY ANDER Administration Folic Acid 1 mg 02/07/25 09:00 02/10/25 09:04 Folic Acid 1 Mg Tablet PO 1 mg DAILY ANDER Administration Glucagon 1 mg 02/06/25 10:53 Glucagon For Inj 1 Mg Vial IM PRN PRN Hypoglycemia Protocol Glucose 15 gm 02/06/25 10:53 Glucose Oral Gel 15 Gm Of Glucse In 37.5 Gm Tube PO PRN PRN Hypoglycemia Protocol Hydralazine HCl 10 mg 02/07/25 08:00 Hydralazine Hcl 20 Mg/Ml Vial IV PUSH Q6H PRN Blood Pressure - High Dextrose 1,000 mls @ 100 mls/hr 02/06/25 10:53 Dextrose 5% 1,000 Ml IVPB PRN PRN Hypoglycemia Protocol Albumin Human 50 mls @ 999 mls/hr 02/06/25 13:21 Albutein IVPB 03/08/25 13:20 Q10M PRN HYPOTENSION Levetiracetam 500 mg 02/06/25 22:15 02/10/25 09:04 Levetiracetam 500 Mg Tablet PO 500 mg Q12HR ANDER Administration Metoprolol Tartrate 50 mg 02/06/25 22:10 02/10/25 09:04 Metoprolol Tartrate 50 Mg Tab PO 50 mg Q12HR ANDER Administration Ondansetron HCl 4 mg 02/06/25 12:45 02/08/25 05:23 Ondansetron Inj 4 Mg/2 Ml Vial IV PUSH 4 mg Q4H PRN Administration Nausea Pantoprazole Sodium 40 mg 02/07/25 09:00 02/10/25 09:04 Pantoprazole 40 Mg Tablet PO 40 mg DAILY ANDER Administration Tamsulosin HCl 0.4 mg 02/06/25 22:20 02/09/25 20:15 Tamsulosin Hcl 0.4 Mg Capsule PO 0.4 mg HS ANDER Administration Thiamine HCl 100 mg 02/07/25 09:00 02/10/25 09:03 Thiamine Hcl 100 Mg Tablet PO 100 mg QAM ANDER Administration Radiology Results: ITS Impressions Head CT 02/06/25 10:00 IMPRESSION: 1. No gross acute intracranial process. 2. Several chronic appearing findings including advanced diffuse chronic microvascular white matter changes. 3. For new onset or refractory seizure disorder, correlation with brain MRI recommended for optimal evaluation. Chest X-Ray 02/06/25 10:11 IMPRESSION: 1. No focal acute process. Labs Labs: Laboratory Results - last 24 hr 02/09/25 02/09/25 02/09/25 12:28 14:04 16:42 WBC 11.5 H RBC 2.53 L Hgb 7.7 L Hct 24.5 L MCV 96.8 MCH 30.4 MCHC 31.4 L RDW 17.2 H Plt Count 267 MPV 10.6 H Immature Gran % (Auto) Neut % (Auto) Lymph % (Auto) Crowley % (Auto) Eos % (Auto) Baso % (Auto) Lymph # (Auto) Crowley # (Auto) Eos # (Auto) Baso # (Auto) Abs Immat Gran (auto) Absolute Neuts (auto) Absolute Nucleated RBC Nucleated RBC % Sodium 136 L Potassium 4.0 Chloride 101 Carbon Dioxide 30 Anion Gap 5 BUN 7 L D Creatinine 3.99 H Estim Creat Clear Calc 17 Estimated GFR 15 L Glucose 143 H POC Capillary Glucose 128 H 161 H Calcium 9.0 Total Bilirubin 0.3 AST 23 ALT 14 Alkaline Phosphatase 88 Total Protein 7.2 Albumin 3.8 02/09/25 02/10/25 02/10/25 20:48 05:43 08:25 WBC 10.0 RBC 2.38 L Hgb 7.2 L Hct 23.3 L MCV 97.9 MCH 30.3 MCHC 30.9 L RDW 17.4 H Plt Count 254 MPV 10.5 H Immature Gran % (Auto) 0.4 Neut % (Auto) 59.3 Lymph % (Auto) 25.9 Crowley % (Auto) 10.5 H Eos % (Auto) 3.3 Baso % (Auto) 0.6 Lymph # (Auto) 2.60 Crowley # (Auto) 1.1 H Eos # (Auto) 0.3 Baso # (Auto) 0.1 Abs Immat Gran (auto) 0.04 H Absolute Neuts (auto) 5.9 Absolute Nucleated RBC 0.000 Nucleated RBC % 0.0 Sodium 134 L Potassium 4.5 Chloride 101 Carbon Dioxide 31 H Anion Gap 2 L BUN 16 Creatinine 5.94 H Estim Creat Clear Calc 12 Estimated GFR 10 L Glucose 89 POC Capillary Glucose 143 H 101 Calcium 8.8 Total Bilirubin 0.3 AST 26 ALT 10 Alkaline Phosphatase 89 Total Protein 6.7 Albumin 3.5 Quality VTE Prophylaxis VTE prophylaxis: mechanical ordered
--- NOTE | 2025-02-10 11:56 | P.PNNP_ITS ---
Progress Note: A&P Assessment and Plan (1) End stage renal disease: Code(s): N18.6 - End stage renal disease Status: Chronic Assessment and Plan: * HD yesterday * continue outpatient schedule of Wednesday/Wednesdays/Wednesday while hospitalized * follow electrolytes, volume status, and clearance * outpatient dialysis clinic = [facility] * primary director of business systems = Dr. Deluca (2) Hyperkalemia: Code(s): E87.5 - Hyperkalemia Status: Acute Assessment and Plan: * resolved * as noted by admission labs * due to missed dialysis treatment on Wednesday * HD should correct/maintain stability * follow repeat K+ levels (3) Seizure-like activity: Code(s): R56.9 - Unspecified convulsions Status: Acute Assessment and Plan: * noted on last hospital admission in November 2024 * started on Keppra at that time * due to alcohol withdrawal versus primary seizure d/o versus hypoglycemia versus other(?) * extensive work-up and evaluation noted on November 2024 admission: * Head CT negative (this admission as well as last) * Head/neck CTA noted: - irregularity within the right vertebral artery at the level of C5-C6 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 - marked atherosclerotic vascular calcification of the intracranial carotid artery causing moderate stenosis - no LVO * Brain MRI (12/20/24): - old lacunar infarcts at the bilateral thalami, basal ganglia and internal capsules - no acute intracranial process or abnormal enhancing brain lesions - extensive periventricular predominant nonspecific white matter T2 hyperintensity consistent with chronic small vessel ischemic disease * on ASA/plavix/statin * Neurology following (4) UTI (urinary tract infection): Code(s): N39.0 - Urinary tract infection, site not specified Status: Inactive Assessment and Plan: * admission UA suggestive * follow culture data - negative to date * on antibiotics to complete course of therapy given clinical symptoms (dysuria + urgency) (5) Anemia: Code(s): D64.9 - Anemia, unspecified Status: Chronic Assessment and Plan: * due to ESRD * Epogen with HD * follow trend of H/H (6) Hypertension: Qualifiers: Hypertension type: secondary to other renal disorders Qualified Code(s): I15.1 - Hypertension secondary to other renal disorders Code(s): I10 - Essential (primary) hypertension Status: Chronic Assessment and Plan: * resume home medications * hydralazine PRN * follow trend of hemodynamics - (7) Hypoglycemia: Code(s): E16.2 - Hypoglycemia, unspecified Status: Acute Assessment and Plan: * incidentally noted in the ER * resolved (8) Alcohol abuse: Code(s): F10.10 - Alcohol abuse, uncomplicated Status: Acute Assessment and Plan: * known history * [facility] protocol * on thiamine and folate Will continue to follow. L Subjective Date/time seen: 02/10/25 11:56 Interval history: Follow-up end stage renal disease on hemodialysis. Tolerated dialysis treatment yesterday without any issues or problems; repeat H/H yesterday afternoon better so no blood transfusion was needed and repeat H/H relatively stable; no apparent distress noted at the time of my visit; awaiting placement (SNF) and continues to work with PT/OT as tolerated. Exam 2 Narrative: General: elderly male in NAD Heart: normal S1 and S2; no rub Lungs: clear to auscultation Abdomen: soft, nontender, nondistended, positive bowel sounds Extremities: no cyanosis or clubbing; no edema Skin: no nodules Objective Data Vital Signs Vital Signs: Vital Signs Temp Pulse Resp BP Pulse Ox O2 Del Method 02/10/25 09:04 18 100 Room Air 02/10/25 09:04 68 02/10/25 04:06 98.0 F 67 18 161/89 H 100 02/09/25 20:42 99.2 F 76 18 178/89 H 100 02/09/25 20:15 74 02/09/25 20:00 76 18 100 Room Air 02/09/25 17:35 Room Air Intake/Output Intake/Output: Intake & Output 02/07/25 02/08/25 02/09/25 02/10/25 23:59 23:59 23:59 23:59 Intake Total 1210 1060 1146 1010 Output Total 1375 2500 100 Balance -165 1060 -1354 910 Meds/Results Medications: Active Medications Generic Name Dose Route Start Last Admin Trade Name Freq PRN Reason Stop Dose Admin Acetaminophen 650 mg 02/06/25 12:45 02/09/25 22:24 Acetaminophen 325 Mg Tablet PO 650 mg Q4H PRN Administration Mild Pain (1-3) or Fever Hydrocodone Bitart/Acetaminophen 1 tab 02/06/25 22:05 02/10/25 09:11 Hydrocodone/Acetaminophen (*Crx) 5-325 Mg Tablet PO 1 tab Q6H PRN Administration pain 7-10 Amlodipine Besylate 10 mg 02/07/25 09:00 02/10/25 09:04 Amlodipine Besylate 10 Mg Tablet PO 10 mg DAILY ANDER Administration Aspirin 81 mg 02/07/25 09:00 02/10/25 09:03 Aspirin 81 Mg Enteric Tablet PO 81 mg QAM ANDER Administration Atorvastatin Calcium 40 mg 02/07/25 09:00 02/10/25 09:03 Atorvastatin 40 Mg Tablet PO 40 mg DAILY ANDER Administration Ciprofloxacin 500 mg 02/08/25 21:00 02/09/25 20:15 Ciprofloxacin 500 Mg Tab PO 02/10/25 21:01 500 mg HS ANDER Administration Clopidogrel Bisulfate 75 mg 02/07/25 09:00 02/10/25 09:03 Clopidogrel Bisulfate 75 Mg Tablet PO 75 mg QAM ANDER Administration Dextrose 12.5 gm 02/06/25 10:53 Dextrose 50% 25 Gm/50 Ml Syringe IV PUSH PRN PRN Hypoglycemia Protocol Diazepam 5 - 10 mg 02/08/25 07:26 Diazepam (*Crx) 5 Mg Tablet PO Q5M PRN CIWA > 15 Docusate Sodium 100 mg 02/10/25 11:47 02/10/25 12:09 Docusate Sodium 100 Mg Capsule PO 100 mg Q12H PRN Administration Constipation Famotidine 20 mg 02/07/25 09:00 02/10/25 09:03 Famotidine 20 Mg Tablet PO 20 mg DAILY ANDER Administration Finasteride 5 mg 02/07/25 09:00 02/10/25 09:04 Finasteride 5 Mg Tablet PO 5 mg DAILY ANDER Administration Folic Acid 1 mg 02/07/25 09:00 02/10/25 09:04 Folic Acid 1 Mg Tablet PO 1 mg DAILY ANDER Administration Glucagon 1 mg 02/06/25 10:53 Glucagon For Inj 1 Mg Vial IM PRN PRN Hypoglycemia Protocol Glucose 15 gm 02/06/25 10:53 Glucose Oral Gel 15 Gm Of Glucse In 37.5 Gm Tube PO PRN PRN Hypoglycemia Protocol Hydralazine HCl 10 mg 02/07/25 08:00 Hydralazine Hcl 20 Mg/Ml Vial IV PUSH Q6H PRN Blood Pressure - High Dextrose 1,000 mls @ 100 mls/hr 02/06/25 10:53 Dextrose 5% 1,000 Ml IVPB PRN PRN Hypoglycemia Protocol Albumin Human 50 mls @ 999 mls/hr 02/06/25 13:21 Albutein IVPB 03/08/25 13:20 Q10M PRN HYPOTENSION Levetiracetam 500 mg 02/06/25 22:15 02/10/25 09:04 Levetiracetam 500 Mg Tablet PO 500 mg Q12HR ANDER Administration Metoprolol Tartrate 50 mg 02/06/25 22:10 02/10/25 09:04 Metoprolol Tartrate 50 Mg Tab PO 50 mg Q12HR ANDER Administration Ondansetron HCl 4 mg 02/06/25 12:45 02/08/25 05:23 Ondansetron Inj 4 Mg/2 Ml Vial IV PUSH 4 mg Q4H PRN Administration Nausea Pantoprazole Sodium 40 mg 02/07/25 09:00 02/10/25 09:04 Pantoprazole 40 Mg Tablet PO 40 mg DAILY ANDER Administration Tamsulosin HCl 0.4 mg 02/06/25 22:20 02/09/25 20:15 Tamsulosin Hcl 0.4 Mg Capsule PO 0.4 mg HS ANDER Administration Thiamine HCl 100 mg 02/07/25 09:00 02/10/25 09:03 Thiamine Hcl 100 Mg Tablet PO 100 mg QAM ANDER Administration Radiology Results: ITS Impressions Head CT 02/06/25 10:00 IMPRESSION: 1. No gross acute intracranial process. 2. Several chronic appearing findings including advanced diffuse chronic microvascular white matter changes. 3. For new onset or refractory seizure disorder, correlation with brain MRI recommended for optimal evaluation. Chest X-Ray 02/06/25 10:11 IMPRESSION: 1. No focal acute process. Labs Labs: Laboratory Tests 02/10/25 05:43 02/10/25 05:43 Calcium 8.8 Total Bilirubin 0.3 AST 26 ALT 10 Alkaline Phosphatase 89 Total Protein 6.7 Albumin 3.5
[2025-02-10] MEDS: DOCUSATE SODIUM 100 MG CAPSULE PO ×2 (12:09→21:24)
[2025-02-10 14:00] VITALS: BP 154/86; PULSE 65; RESP 18; TEMP 36.9; O2SAT 100
[2025-02-10 20:00] VITALS: PULSE 65; RESP 18; O2SAT 100
[2025-02-10 21:24] VITALS: PULSE 65
[2025-02-10] MEDS: CIPROFLOXACIN 500 MG TAB PO (21:24)
[2025-02-10] MEDS: TAMSULOSIN HCL 0.4 MG CAPSULE PO (21:24)
[2025-02-10 22:00] VITALS: BP 180/90; PULSE 65; RESP 18; TEMP 37.1; O2SAT 100
[2025-02-11 05:25] LABS: Hematocrit 25.2 % (42.0-52.0); Hemoglobin 7.9 g/dL (14.0-18.0); Immature Granulocyte Percent A 1.0 % (0-0.5); Lymphocytes Absolute Auto 2.29 K/mm3 (0.9-3.2); Mean Corpuscular HGB Conc 31.3 g/dl (32-36); Mean Corpuscular Hemoglobin 31.0 pg (26-34); Mean Corpuscular Volume 98.8 fl (80-100); Nucleated Red Blood Cells Absolute Auto 0.000 K/mm3 (0.0-0.012); Nucleated Red Blood Cells Perc 0.0 % (0.0-0.2); Platelet Count Result 287 k/mm3 (150-375); Red Blood Count 2.55 M/mm3 (4.6-6.20); White Blood Count 9.5 K/mm3 (4.5-10.0)
[2025-02-11 05:49] LABS: Alanine Aminotransferase 10 U/L (6-50); Albumin Level 3.5 g/dL (3.5-5.1); Alkaline Phosphatase 94 U/L (38-126); Anion Gap 5 mmol/L (4-12); Aspartate Amino Transferase 26 U/L (17-59); Bilirubin,Total 0.4 mg/dL (0.2-1.3); Blood Urea Nitrogen 26 mg/dL (9-20); Calcium 9.0 mg/dL (8.4-10.2); Carbon Dioxide 27 mmol/L (22-30); Chloride 101 mmol/L (98-107); Estimated CRCL calculation 8 ml/min; Estimated Glomerular Filt Rate 6; Glucose 91 mg/dL (65-110); Potassium 4.8 mmol/L (3.4-5.0); Sodium 133 mmol/L (137-145); Total Protein 6.7 g/dL (6.3-8.2)
[2025-02-11 06:00] VITALS: BP 168/83; PULSE 69; RESP 18; TEMP 36.4; O2SAT 100
[2025-02-11 08:16] VITALS: PULSE 66
[2025-02-11] MEDS: THIAMINE HCL 100 MG TABLET PO (08:16)
[2025-02-11] MEDS: ASPIRIN 81 MG ENTERIC TABLET PO (08:16)
[2025-02-11] MEDS: METOPROLOL TARTRATE 50 MG TAB PO ×2 (08:16→20:27)
[2025-02-11] MEDS: PANTOPRAZOLE 40 MG TABLET PO (08:16)
[2025-02-11] MEDS: FOLIC ACID 1 MG TABLET PO (08:17)
[2025-02-11] MEDS: FAMOTIDINE 20 MG TABLET PO (08:17)
[2025-02-11] MEDS: FINASTERIDE 5 MG TABLET PO (08:17)
[2025-02-11] MEDS: CLOPIDOGREL BISULFATE 75 MG TABLET PO (08:17)
[2025-02-11] MEDS: ATORVASTATIN 40 MG TABLET PO (08:17)
[2025-02-11] MEDS: DOCUSATE SODIUM 100 MG CAPSULE PO (08:17)
[2025-02-11] MEDS: HYDROcodone/acetaminophen (*CRX) 5-325 MG TABLET 1 TAB PO ×3 (08:36→20:26)
--- NOTE | 2025-02-11 09:02 | P.PNIM_ITS ---
Assessment and Plan Assessment and Plan (1) Seizure-like activity: Code(s): R56.9 - Unspecified convulsions Status: Acute Assessment and Plan: The patient presented to the ER after eating seizure-like activity. Cause for seizure is uncertain. Patient does have a history of seizures in the past with significant history of prior alcoholism. Also incidentally found to be hypoglycemic in the ED (since resolved). Primary seizure disorder vs alcohol withdrawal vs hypoglycemia for active cause of seizure-like activity. He patient has not had any recurrence of seizure since admission to the hospital. He did receive 1 IV dose of Keppra on arrival to the ER and a dose of diazepam. Is unclear if the patient has been taking his seizure medications as directed. Will resume the patient's home Keppra and place patient on seizure precautions. Neurology was consult from the ER. -Per records, he was admitted to the hospital for similar symptoms from 12/19 through 12/26. Started on Keppra at that time. Evidence of prior CVA noted on MRI November 2024 with infarcts in bilateral basal ganglia and bilateral her periventricular white matter -Pending neuro recs if any, per note today, no recs for additional orders. Spoke with neuro today, rec only to continue Keppra. -No focal deficits (2) Hyperkalemia: Code(s): E87.5 - Hyperkalemia Status: Acute Assessment and Plan: The patient did have marked hyperkalemia and metabolic acidosis due to missing hemodialysis. The patient underwent emergent hemodialysis on 02/07. His repeat electrolyte panel had normalized to more expected values drip patient with compensated he end-stage renal disease. Potassium is now normalized. Nephrology has been consulted for dialysis management. The patient did receive IV insulin dextrose and calcium carbonate in the ER will is kella. Will repeat electrolyte panel in a.m.. -Neph following --outpatient dialysis clinic = [facility] --Primary substation operator = Dr. Deluca -Continue M/W/F dialysis schedule while inpt -K WDL with AM labs (3) ESRD on dialysis: Code(s): N18.6 - End stage renal disease; Z99.2 - Dependence on renal dialysis Status: Acute Assessment and Plan: Pt missed x1 day dialysis, regular schedule is M/W/F -See above -Hgb 7.9 with AM labs (4) Hypoglycemia: Code(s): E16.2 - Hypoglycemia, unspecified Status: Acute Assessment and Plan: Incidentally found to be hypoglycemic on arrival to the ER, resolved. -Daily labs (5) Hypertension: Qualifiers: Hypertension type: secondary to other renal disorders Qualified Code(s): I15.1 - Hypertension secondary to other renal disorders Code(s): I10 - Essential (primary) hypertension Status: Chronic Assessment and Plan: Resume patient's home metoprolol, amlodipine. Had missed doses on 02/06 -Added Hydral IV PRN for >180/100 -HD M/W/F (6) Alcohol abuse: Code(s): F10.10 - Alcohol abuse, uncomplicated Status: Acute Assessment and Plan: The patient is not having any obvious symptoms of alcohol withdrawal he does not have any active tremors diaphoresis or evidence of hallucination. Will monitor CIWA scores. Will continue home thiamin and folic acid supplementation. Will add benzodiazepines if patient's CIWA score becomes elevated. - Per night nursing, pt had been more tremulous and anxious. Most recent CIWA score of 13 today. Upon my visit, pt sound asleep after [place] dose. Placed PO Diazepam PRN order today. - Pt reports drinking x1 beer and 1/2 pint daily prior to admission, last drink 02/05 - CIWA scores undetectable (7) UTI (urinary tract infection): Qualifiers: Urinary tract infection type: acute cystitis Hematuria presence: without hematuria Qualified Code(s): N30.00 - Acute cystitis without hematuria Code(s): N39.0 - Urinary tract infection, site not specified Status: Acute Assessment and Plan: Patient did have an abnormal urinalysis and does have significant suprapubic tenderness. He does have a history of he polymicrobial UTI recently with 1 of the organisms being he she Pseudomonas. Patient has been placed on cefepime after review of prior microbiology. White count was elevated in the ER and a component of patient's confusion could be related to underlying UTI -BC not obtained, will obtain if pt status worsens -UC NGTD -Reports that initially he was having urinary frequency and urgency, will continue abx for x5 day course, switching to oral Cipro -Switched from cefepime IV to cipro PO on 02/09, completed -MRSA nasal negative -WBC WDL Plan Colace for constipation today, continue inpt dialysis, PT/OT (both recommending SNF), pending SNF placement Medical Record Review I have reviewed the following patient records and this information was taken into consideration when formulating the assessment and plan.: previous labs Consultations Consultations: I have discussed the care of this pt with the consulting providers. Time Spent With Patient Time with patient: 25 - 35 minutes Subjective Date/time seen: 02/11/25 0815 Interval history: Pt lying in bed comfortably upon my arrival, about to eat his breakfast. Pt with no complaints today. Pt agreeable with the plan for SNF placement for continued therapy. Review of Systems Review of Systems: All systems reviewed & are unremarkable except as noted in HPI and below Exam Narrative: Weight 67.5 kg BMI 20.2 Const: Other: No acute distress, he well-developed well-nourished HENMT: Other: He head is normocephalic atraumatic, mucous membranes are tacky, no oral pharyngeal erythema Eyes: Other: Positive conjunctival pallor, no scleral icterus, pupils are equal and reactive Neck: Other: No JVD, no lymphadenopathy Chest: Other: Tunneled dialysis catheter right upper chest Resp: Other: Clear to auscultation bilaterally, no increased work of breathing Cardio: Other: Regular rate, regular rhythm, 2+ bilateral radial and pedal pulses Tele 78bpm GI: Other: Soft, nontender, nondistended, normoactive bowel sounds : Other: Suprapubic tenderness noted on exam Skin: Other: No jaundice, no pallor Neuro: Other: A&O x4, no localizing neurologic deficits noted Extrem: Other: No clubbing, cyanosis or edema LUE with full cast applied Psych: Other: A&O x4 Objective Data Vital Signs Vital Signs: Vital Signs - 24 hr 02/10/25 09:04 02/10/25 09:04 02/10/25 14:00 Temperature 98.4 F Pulse Rate 68 65 Respiratory Rate 18 18 Blood Pressure 154/86 H Pulse Oximetry 100 100 Oxygen Delivery Room Air 02/10/25 20:00 02/10/25 21:24 02/10/25 22:00 Temperature 98.8 F Pulse Rate 65 65 65 Respiratory Rate 18 18 Blood Pressure 180/90 H Pulse Oximetry 100 100 Oxygen Delivery Room Air 02/11/25 06:00 02/11/25 08:16 Temperature 97.6 F Pulse Rate 69 66 Respiratory Rate 18 Blood Pressure 168/83 H Pulse Oximetry 100 Oxygen Delivery Intake/Output Intake/Output: Intake & Output 02/08/25 02/09/25 02/10/25 02/11/25 23:59 23:59 23:59 23:59 Intake Total 1060 1146 2040 300 Output Total 2500 300 500 Balance 1060 -1354 1740 -200 Meds/Results Medications: Active Medications Generic Name Dose Route Start Last Admin Trade Name Freq PRN Reason Stop Dose Admin Acetaminophen 650 mg 02/06/25 12:45 02/09/25 22:24 Acetaminophen 325 Mg Tablet PO 650 mg Q4H PRN Administration Mild Pain (1-3) or Fever Hydrocodone Bitart/Acetaminophen 1 tab 02/06/25 22:05 02/11/25 08:36 Hydrocodone/Acetaminophen (*Crx) 5-325 Mg Tablet PO 1 tab Q6H PRN Administration pain 7-10 Amlodipine Besylate 10 mg 02/07/25 09:00 02/11/25 08:17 Amlodipine Besylate 10 Mg Tablet PO 10 mg DAILY ANDER Administration Aspirin 81 mg 02/07/25 09:00 02/11/25 08:16 Aspirin 81 Mg Enteric Tablet PO 81 mg QAM ANDER Administration Atorvastatin Calcium 40 mg 02/07/25 09:00 02/11/25 08:17 Atorvastatin 40 Mg Tablet PO 40 mg DAILY ANDER Administration Clopidogrel Bisulfate 75 mg 02/07/25 09:00 02/11/25 08:17 Clopidogrel Bisulfate 75 Mg Tablet PO 75 mg QAM ANDER Administration Dextrose 12.5 gm 02/06/25 10:53 Dextrose 50% 25 Gm/50 Ml Syringe IV PUSH PRN PRN Hypoglycemia Protocol Diazepam 5 - 10 mg 02/08/25 07:26 Diazepam (*Crx) 5 Mg Tablet PO Q5M PRN CIWA > 15 Docusate Sodium 100 mg 02/10/25 11:47 02/11/25 08:17 Docusate Sodium 100 Mg Capsule PO 100 mg Q12H PRN Administration Constipation Famotidine 20 mg 02/07/25 09:00 02/11/25 08:17 Famotidine 20 Mg Tablet PO 20 mg DAILY ANDER Administration Finasteride 5 mg 02/07/25 09:00 02/11/25 08:17 Finasteride 5 Mg Tablet PO 5 mg DAILY ANDER Administration Folic Acid 1 mg 02/07/25 09:00 02/11/25 08:17 Folic Acid 1 Mg Tablet PO 1 mg DAILY ANDER Administration Glucagon 1 mg 02/06/25 10:53 Glucagon For Inj 1 Mg Vial IM PRN PRN Hypoglycemia Protocol Glucose 15 gm 02/06/25 10:53 Glucose Oral Gel 15 Gm Of Glucse In 37.5 Gm Tube PO PRN PRN Hypoglycemia Protocol Hydralazine HCl 10 mg 02/07/25 08:00 Hydralazine Hcl 20 Mg/Ml Vial IV PUSH Q6H PRN Blood Pressure - High Dextrose 1,000 mls @ 100 mls/hr 02/06/25 10:53 Dextrose 5% 1,000 Ml IVPB PRN PRN Hypoglycemia Protocol Albumin Human 50 mls @ 999 mls/hr 02/06/25 13:21 Albutein IVPB 03/08/25 13:20 Q10M PRN HYPOTENSION Levetiracetam 500 mg 02/06/25 22:15 02/11/25 08:17 Levetiracetam 500 Mg Tablet PO 500 mg Q12HR ANDER Administration Metoprolol Tartrate 50 mg 02/06/25 22:10 02/11/25 08:16 Metoprolol Tartrate 50 Mg Tab PO 50 mg Q12HR ANDER Administration Ondansetron HCl 4 mg 02/06/25 12:45 02/08/25 05:23 Ondansetron Inj 4 Mg/2 Ml Vial IV PUSH 4 mg Q4H PRN Administration Nausea Pantoprazole Sodium 40 mg 02/07/25 09:00 02/11/25 08:16 Pantoprazole 40 Mg Tablet PO 40 mg DAILY ANDER Administration Tamsulosin HCl 0.4 mg 02/06/25 22:20 02/10/25 21:24 Tamsulosin Hcl 0.4 Mg Capsule PO 0.4 mg HS ANDER Administration Thiamine HCl 100 mg 02/07/25 09:00 02/11/25 08:16 Thiamine Hcl 100 Mg Tablet PO 100 mg QAM ANDER Administration Radiology Results: ITS Impressions Head CT 02/06/25 10:00 IMPRESSION: 1. No gross acute intracranial process. 2. Several chronic appearing findings including advanced diffuse chronic microvascular white matter changes. 3. For new onset or refractory seizure disorder, correlation with brain MRI recommended for optimal evaluation. Chest X-Ray 02/06/25 10:11 IMPRESSION: 1. No focal acute process. Labs Labs: Laboratory Results - last 24 hr 02/10/25 02/10/25 02/10/25 11:58 16:52 20:44 WBC RBC Hgb Hct MCV MCH MCHC RDW Plt Count MPV Immature Gran % (Auto) Neut % (Auto) Lymph % (Auto) [place] % (Auto) Eos % (Auto) Baso % (Auto) Lymph # (Auto) [place] # (Auto) Eos # (Auto) Baso # (Auto) Abs Immat Gran (auto) Absolute Neuts (auto) Absolute Nucleated RBC Nucleated RBC % Sodium Potassium Chloride Carbon Dioxide Anion Gap BUN Creatinine Estim Creat Clear Calc Estimated GFR Glucose POC Capillary Glucose 122 H 96 111 H Calcium Phosphorus Total Bilirubin AST ALT Alkaline Phosphatase Total Protein Albumin 02/11/25 02/11/25 05:04 07:47 WBC 9.5 RBC 2.55 L Hgb 7.9 L Hct 25.2 L MCV 98.8 MCH 31.0 MCHC 31.3 L RDW 17.6 H Plt Count 287 MPV 10.7 H Immature Gran % (Auto) 1.0 H Neut % (Auto) 60.5 Lymph % (Auto) 24.2 [place] % (Auto) 9.7 H Eos % (Auto) 4.1 Baso % (Auto) 0.5 Lymph # (Auto) 2.29 [place] # (Auto) 0.9 H Eos # (Auto) 0.4 H Baso # (Auto) 0.1 Abs Immat Gran (auto) 0.09 H Absolute Neuts (auto) 5.7 Absolute Nucleated RBC 0.000 Nucleated RBC % 0.0 Sodium 133 L Potassium 4.8 Chloride 101 Carbon Dioxide 27 Anion Gap 5 BUN 26 H D Creatinine 8.75 H Estim Creat Clear Calc 8 Estimated GFR 6 L Glucose 91 POC Capillary Glucose 81 Calcium 9.0 Phosphorus 3.9 Total Bilirubin 0.4 AST 26 ALT 10 Alkaline Phosphatase 94 Total Protein 6.7 Albumin 3.5 Quality VTE Prophylaxis VTE prophylaxis: mechanical ordered
--- NOTE | 2025-02-11 12:01 | P.PNNP_ITS ---
Progress Note: A&P Assessment and Plan (1) End stage renal disease: Code(s): N18.6 - End stage renal disease Status: Chronic Assessment and Plan: * HD tomorrow * continue outpatient schedule of Wednesday/Wednesdays/Wednesday while hospitalized * follow electrolytes, volume status, and clearance * outpatient dialysis clinic = [facility] * primary director of casework = Dr. Deluca (2) Hyperkalemia: Code(s): E87.5 - Hyperkalemia Status: Acute Assessment and Plan: * resolved * as noted by admission labs * due to missed dialysis treatment on Wednesday * HD should correct/maintain stability * follow repeat K+ levels (3) Seizure-like activity: Code(s): R56.9 - Unspecified convulsions Status: Acute Assessment and Plan: * noted on last hospital admission in November 2024 * started on Keppra at that time * due to alcohol withdrawal versus primary seizure d/o versus hypoglycemia versus other(?) * extensive work-up and evaluation noted on November 2024 admission: * Head CT negative (this admission as well as last) * Head/neck CTA noted: - irregularity within the right vertebral artery at the level of C5-C6 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 - marked atherosclerotic vascular calcification of the intracranial carotid artery causing moderate stenosis - no LVO * Brain MRI (12/20/24): - old lacunar infarcts at the bilateral thalami, basal ganglia and internal capsules - no acute intracranial process or abnormal enhancing brain lesions - extensive periventricular predominant nonspecific white matter T2 hyperintensity consistent with chronic small vessel ischemic disease * on ASA/plavix/statin * Neurology following (4) UTI (urinary tract infection): Code(s): N39.0 - Urinary tract infection, site not specified Status: Inactive Assessment and Plan: * admission UA suggestive * follow culture data - negative to date * on antibiotics to complete course of therapy given clinical symptoms (dysuria + urgency) (5) Anemia: Code(s): D64.9 - Anemia, unspecified Status: Chronic Assessment and Plan: * due to ESRD * Epogen with HD * follow trend of H/H (6) Hypertension: Qualifiers: Hypertension 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 L Subjective Date/time seen: 02/11/25 12:01 Interval history: Follow-up end stage renal disease on hemodialysis. No apparent distress noted at the time of my visit; feels reasonably well with no acute complaints voiced; no issues/events overnight or earlier today; awaiting placement at SNF. Exam 2 Narrative: General: elderly male in NAD Heart: normal S1 and S2; no rub Lungs: clear anteriorly Abdomen: soft, nontender, nondistended, positive bowel sounds Extremities: no cyanosis or clubbing; no edema Skin: warm and dry Objective Data Vital Signs Vital Signs: Vital Signs Temp Pulse Resp BP Pulse Ox O2 Del Method 02/11/25 12:00 98.1 F 67 12 141/90 H 100 02/11/25 08:16 66 02/11/25 08:00 Room Air 02/11/25 06:00 97.6 F 69 18 168/83 H 100 02/10/25 22:00 98.8 F 65 18 180/90 H 100 02/10/25 21:24 65 02/10/25 20:00 65 18 100 Room Air Intake/Output Intake/Output: Intake & Output 02/08/25 02/09/25 02/10/25 02/11/25 23:59 23:59 23:59 23:59 Intake Total 1060 1146 2040 540 Output Total 2500 300 500 Balance 1060 -1354 1740 40 Meds/Results Medications: Active Medications Generic Name Dose Route Start Last Admin Trade Name Freq PRN Reason Stop Dose Admin Acetaminophen 650 mg 02/06/25 12:45 02/09/25 22:24 Acetaminophen 325 Mg Tablet PO 650 mg Q4H PRN Administration Mild Pain (1-3) or Fever Hydrocodone Bitart/Acetaminophen 1 tab 02/06/25 22:05 02/11/25 14:16 Hydrocodone/Acetaminophen (*Crx) 5-325 Mg Tablet PO 1 tab Q6H PRN Administration pain 7-10 Amlodipine Besylate 10 mg 02/07/25 09:00 02/11/25 08:17 Amlodipine Besylate 10 Mg Tablet PO 10 mg DAILY ANDER Administration Aspirin 81 mg 02/07/25 09:00 02/11/25 08:16 Aspirin 81 Mg Enteric Tablet PO 81 mg QAM ANDER Administration Atorvastatin Calcium 40 mg 02/07/25 09:00 02/11/25 08:17 Atorvastatin 40 Mg Tablet PO 40 mg DAILY ANDER Administration Clopidogrel Bisulfate 75 mg 02/07/25 09:00 02/11/25 08:17 Clopidogrel Bisulfate 75 Mg Tablet PO 75 mg QAM ANDER Administration Dextrose 12.5 gm 02/06/25 10:53 Dextrose 50% 25 Gm/50 Ml Syringe IV PUSH PRN PRN Hypoglycemia Protocol Diazepam 5 - 10 mg 02/08/25 07:26 Diazepam (*Crx) 5 Mg Tablet PO Q5M PRN CIWA > 15 Docusate Sodium 100 mg 02/10/25 11:47 02/11/25 08:17 Docusate Sodium 100 Mg Capsule PO 100 mg Q12H PRN Administration Constipation Famotidine 20 mg 02/07/25 09:00 02/11/25 08:17 Famotidine 20 Mg Tablet PO 20 mg DAILY ANDER Administration Finasteride 5 mg 02/07/25 09:00 02/11/25 08:17 Finasteride 5 Mg Tablet PO 5 mg DAILY ANDER Administration Folic Acid 1 mg 02/07/25 09:00 02/11/25 08:17 Folic Acid 1 Mg Tablet PO 1 mg DAILY ANDER Administration Glucagon 1 mg 02/06/25 10:53 Glucagon For Inj 1 Mg Vial IM PRN PRN Hypoglycemia Protocol Glucose 15 gm 02/06/25 10:53 Glucose Oral Gel 15 Gm Of Glucse In 37.5 Gm Tube PO PRN PRN Hypoglycemia Protocol Hydralazine HCl 10 mg 02/07/25 08:00 Hydralazine Hcl 20 Mg/Ml Vial IV PUSH Q6H PRN Blood Pressure - High Dextrose 1,000 mls @ 100 mls/hr 02/06/25 10:53 Dextrose 5% 1,000 Ml IVPB PRN PRN Hypoglycemia Protocol Albumin Human 50 mls @ 999 mls/hr 02/06/25 13:21 Albutein IVPB 03/08/25 13:20 Q10M PRN HYPOTENSION Levetiracetam 500 mg 02/06/25 22:15 02/11/25 08:17 Levetiracetam 500 Mg Tablet PO 500 mg Q12HR ANDER Administration Metoprolol Tartrate 50 mg 02/06/25 22:10 02/11/25 08:16 Metoprolol Tartrate 50 Mg Tab PO 50 mg Q12HR ANDER Administration Ondansetron HCl 4 mg 02/06/25 12:45 02/08/25 05:23 Ondansetron Inj 4 Mg/2 Ml Vial IV PUSH 4 mg Q4H PRN Administration Nausea Pantoprazole Sodium 40 mg 02/07/25 09:00 02/11/25 08:16 Pantoprazole 40 Mg Tablet PO 40 mg DAILY ANDER Administration Tamsulosin HCl 0.4 mg 02/06/25 22:20 02/10/25 21:24 Tamsulosin Hcl 0.4 Mg Capsule PO 0.4 mg HS ANDER Administration Thiamine HCl 100 mg 02/07/25 09:00 02/11/25 08:16 Thiamine Hcl 100 Mg Tablet PO 100 mg QAM ANDER Administration Radiology Results: ITS Impressions Head CT 02/06/25 10:00 IMPRESSION: 1. No gross acute intracranial process. 2. Several chronic appearing findings including advanced diffuse chronic microvascular white matter changes. 3. For new onset or refractory seizure disorder, correlation with brain MRI recommended for optimal evaluation. Chest X-Ray 02/06/25 10:11 IMPRESSION: 1. No focal acute process. Labs Labs: Laboratory Tests 02/11/25 05:04 02/11/25 05:04 Calcium 9.0 Phosphorus 3.9 Total Bilirubin 0.4 AST 26 ALT 10 Alkaline Phosphatase 94 Total Protein 6.7 Albumin 3.5
[2025-02-11 14:00] VITALS: BP 141/90; PULSE 67; RESP 12; TEMP 36.7; O2SAT 100
[2025-02-11] MEDS: EPOETIN ALFA-EPBX 20,000 UNITS/ML VIAL 20000 UNITS SUB-Q (17:14)
[2025-02-11 20:00] VITALS: PULSE 70; RESP 16; O2SAT 100
[2025-02-11 20:27] VITALS: PULSE 68
[2025-02-11] MEDS: TAMSULOSIN HCL 0.4 MG CAPSULE PO (20:27)
[2025-02-11 21:55] VITALS: BP 132/82; PULSE 70; RESP 16; TEMP 36.6; O2SAT 100
[2025-02-12] VITALS (25 sets, daily range): BP systolic 060–172; BP diastolic 79–96; PULSE 67–83; RESP 16–20; TEMP 36.4–37.1; O2SAT 98–100
[2025-02-12] MEDS: HYDROcodone/acetaminophen (*CRX) 5-325 MG TABLET 1 TAB PO ×3 (04:31→20:35)
[2025-02-12 05:00] LABS: Hematocrit 23.7 % (42.0-52.0); Hemoglobin 7.4 g/dL (14.0-18.0); Immature Granulocyte Percent A 0.6 % (0-0.5); Lymphocytes Absolute Auto 2.44 K/mm3 (0.9-3.2); Mean Corpuscular HGB Conc 31.2 g/dl (32-36); Mean Corpuscular Hemoglobin 31.0 pg (26-34); Mean Corpuscular Volume 99.2 fl (80-100); Nucleated Red Blood Cells Absolute Auto 0.020 K/mm3 (0.0-0.012); Nucleated Red Blood Cells Perc 0.2 % (0.0-0.2); Platelet Count Result 298 k/mm3 (150-375); Red Blood Count 2.39 M/mm3 (4.6-6.20); White Blood Count 10.5 K/mm3 (4.5-10.0)
[2025-02-12 05:59] LABS: Alanine Aminotransferase 9 U/L (6-50); Albumin Level 3.5 g/dL (3.5-5.1); Alkaline Phosphatase 90 U/L (38-126); Anion Gap 7 mmol/L (4-12); Aspartate Amino Transferase 21 U/L (17-59); Bilirubin,Total 0.4 mg/dL (0.2-1.3); Blood Urea Nitrogen 35 mg/dL (9-20); Calcium 8.9 mg/dL (8.4-10.2); Carbon Dioxide 26 mmol/L (22-30); Chloride 101 mmol/L (98-107); Estimated CRCL calculation 6 ml/min; Estimated Glomerular Filt Rate 5; Glucose 81 mg/dL (65-110); Potassium 4.8 mmol/L (3.4-5.0); Sodium 134 mmol/L (137-145); Total Protein 6.6 g/dL (6.3-8.2)
--- NOTE | 2025-02-12 09:12 | PCPTNOTE ---
The patient treatment was not able to be completed at this time due to patient out of room for dialysis. Will plan to continue treatment per plan of care.
--- NOTE | 2025-02-12 09:57 | PCOTNOTE ---
Patient out of room for dialysis.
[2025-02-12] MEDS: EPOETIN ALFA-EPBX 20,000 UNITS/ML VIAL 20000 UNITS IV PUSH (11:02)
--- NOTE | 2025-02-12 12:13 | P.PNNP_ITS ---
Progress Note: A&P Assessment and Plan (1) End stage renal disease: Code(s): N18.6 - End stage renal disease Status: Chronic Assessment and Plan: * HD today * continue outpatient schedule of Wednesday/Wednesdays/Wednesday while hospitalized * follow electrolytes, volume status, and clearance * outpatient dialysis clinic = [facility] * primary mems engineer = Dr. Deluca (2) Hyperkalemia: Code(s): E87.5 - Hyperkalemia Status: Acute Assessment and Plan: * resolved * as noted by admission labs * due to missed dialysis treatment on Wednesday * HD should correct/maintain stability * follow repeat K+ levels (3) Seizure-like activity: Code(s): R56.9 - Unspecified convulsions Status: Acute Assessment and Plan: * noted on last hospital admission in November 2024 * started on Keppra at that time * due to alcohol withdrawal versus primary seizure d/o versus hypoglycemia versus other(?) * extensive work-up and evaluation noted on November 2024 admission: * Head CT negative (this admission as well as last) * Head/neck CTA noted: - irregularity within the right vertebral artery at the level of C5-C6 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 - marked atherosclerotic vascular calcification of the intracranial carotid artery causing moderate stenosis - no LVO * Brain MRI (12/20/24): - old lacunar infarcts at the bilateral thalami, basal ganglia and internal capsules - no acute intracranial process or abnormal enhancing brain lesions - extensive periventricular predominant nonspecific white matter T2 hyperintensity consistent with chronic small vessel ischemic disease * on ASA/plavix/statin * Neurology following (4) UTI (urinary tract infection): Code(s): N39.0 - Urinary tract infection, site not specified Status: Inactive Assessment and Plan: * admission UA suggestive * follow culture data - negative to date * complete course of antibiotic therapy given clinical symptoms (dysuria + urgency) (5) Anemia: Code(s): D64.9 - Anemia, unspecified Status: Chronic Assessment and Plan: * due to ESRD * Epogen with HD * follow trend of H/H (6) Hypertension: Qualifiers: Hypertension type: secondary to other renal disorders Qualified Code(s): I15.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 L Subjective Date/time seen: 02/12/25 12:13 Interval history: Follow-up end stage renal disease on hemodialysis. Tolerating dialysis treatment at the time of my visit (seen on HD at 12:03pm); no apparent distress noted when seen; he now tells me that he does not want to go to any SNF and would rather just go home; no events overnight or earlier this morning. Exam 2 Narrative: General: elderly male in NAD Heart: normal S1 and S2; no rub Lungs: clear anteriorly Abdomen: soft, nontender, nondistended, positive bowel sounds Extremities: no cyanosis or clubbing; no edema Skin: warm and intact Objective Data Vital Signs Vital Signs: Vital Signs Temp Pulse Resp BP Pulse Ox O2 Del Method 02/12/25 08:00 71 20 98 Room Air 02/12/25 06:00 97.5 F L 71 20 172/79 H 98 02/12/25 05:46 168/84 H 02/11/25 21:55 98 F 70 16 132/82 100 02/11/25 20:27 68 02/11/25 20:00 70 16 100 Room Air 02/11/25 14:00 98.1 F 67 12 141/90 H 100 Intake/Output Intake/Output: Intake & Output 02/09/25 02/10/25 02/11/25 02/12/25 23:59 23:59 23:59 23:59 Intake Total 1146 2040 1280 200 Output Total 2500 300 500 Balance -1354 1740 780 200 Meds/Results Medications: Active Medications Generic Name Dose Route Start Last Admin Trade Name Freq PRN Reason Stop Dose Admin Acetaminophen 650 mg 02/06/25 12:45 02/09/25 22:24 Acetaminophen 325 Mg Tablet PO 650 mg Q4H PRN Administration Mild Pain (1-3) or Fever Hydrocodone Bitart/Acetaminophen 1 tab 02/06/25 22:05 02/12/25 04:31 Hydrocodone/Acetaminophen (*Crx) 5-325 Mg Tablet PO 1 tab Q6H PRN Administration pain 7-10 Amlodipine Besylate 10 mg 02/07/25 09:00 02/11/25 08:17 Amlodipine Besylate 10 Mg Tablet PO 10 mg DAILY ANDER Administration Aspirin 81 mg 02/07/25 09:00 02/11/25 08:16 Aspirin 81 Mg Enteric Tablet PO 81 mg QAM NADER Administration Atorvastatin Calcium 40 mg 02/07/25 09:00 02/11/25 08:17 Atorvastatin 40 Mg Tablet PO 40 mg DAILY ANDER Administration Clopidogrel Bisulfate 75 mg 02/07/25 09:00 02/11/25 08:17 Clopidogrel Bisulfate 75 Mg Tablet PO 75 mg QAM ANDER Administration Dextrose 12.5 gm 02/06/25 10:53 Dextrose 50% 25 Gm/50 Ml Syringe IV PUSH PRN PRN Hypoglycemia Protocol Diazepam 5 - 10 mg 02/08/25 07:26 Diazepam (*Crx) 5 Mg Tablet PO Q5M PRN CIWA > 15 Docusate Sodium 100 mg 02/10/25 11:47 02/11/25 08:17 Docusate Sodium 100 Mg Capsule PO 100 mg Q12H PRN Administration Constipation Epoetin Rodney-epbx 20,000 units 02/12/25 18:20 Epoetin Rodney-Epbx 20,000 Units/Ml Vial IV PUSH 02/12/25 18:21 ONCE ONE Famotidine 20 mg 02/07/25 09:00 02/11/25 08:17 Famotidine 20 Mg Tablet PO 20 mg DAILY ANDER Administration Finasteride 5 mg 02/07/25 09:00 02/11/25 08:17 Finasteride 5 Mg Tablet PO 5 mg DAILY ANDER Administration Folic Acid 1 mg 02/07/25 09:00 02/11/25 08:17 Folic Acid 1 Mg Tablet PO 1 mg DAILY ANDER Administration Glucagon 1 mg 02/06/25 10:53 Glucagon For Inj 1 Mg Vial IM PRN PRN Hypoglycemia Protocol Glucose 15 gm 02/06/25 10:53 Glucose Oral Gel 15 Gm Of Glucse In 37.5 Gm Tube PO PRN PRN Hypoglycemia Protocol Hydralazine HCl 10 mg 02/07/25 08:00 Hydralazine Hcl 20 Mg/Ml Vial IV PUSH Q6H PRN Blood Pressure - High Dextrose 1,000 mls @ 100 mls/hr 02/06/25 10:53 Dextrose 5% 1,000 Ml IVPB PRN PRN Hypoglycemia Protocol Albumin Human 50 mls @ 999 mls/hr 02/06/25 13:21 Albutein IVPB 03/08/25 13:20 Q10M PRN HYPOTENSION Levetiracetam 500 mg 02/06/25 22:15 02/11/25 20:26 Levetiracetam 500 Mg Tablet PO 500 mg Q12HR ANDER Administration Metoprolol Tartrate 50 mg 02/06/25 22:10 02/11/25 20:27 Metoprolol Tartrate 50 Mg Tab PO 50 mg Q12HR ANDER Administration Ondansetron HCl 4 mg 02/06/25 12:45 02/08/25 05:23 Ondansetron Inj 4 Mg/2 Ml Vial IV PUSH 4 mg Q4H PRN Administration Nausea Pantoprazole Sodium 40 mg 02/07/25 09:00 02/11/25 08:16 Pantoprazole 40 Mg Tablet PO 40 mg DAILY ANDER Administration Tamsulosin HCl 0.4 mg 02/06/25 22:20 02/11/25 20:27 Tamsulosin Hcl 0.4 Mg Capsule PO 0.4 mg HS ANDER Administration Thiamine HCl 100 mg 02/07/25 09:00 02/11/25 08:16 Thiamine Hcl 100 Mg Tablet PO 100 mg QAM ANDER Administration Radiology Results: ITS Impressions Head CT 02/06/25 10:00 IMPRESSION: 1. No gross acute intracranial process. 2. Several chronic appearing findings including advanced diffuse chronic microvascular white matter changes. 3. For new onset or refractory seizure disorder, correlation with brain MRI recommended for optimal evaluation. Chest X-Ray 02/06/25 10:11 IMPRESSION: 1. No focal acute process. Labs Labs: Laboratory Tests 02/12/25 04:39 02/12/25 04:39 Calcium 8.9 Phosphorus 4.4 Total Bilirubin 0.4 AST 21 ALT 9 Alkaline Phosphatase 90 Total Protein 6.6 Albumin 3.5
--- NOTE | 2025-02-12 12:25 | PM.IMPN2 ---
Assessment and Plan Assessment and Plan (1) Seizure-like activity: Code(s): R56.9 - Unspecified convulsions Status: Acute Assessment and Plan: The patient presented to the ER after eating seizure-like activity. Cause for seizure is uncertain. Patient does have a history of seizures in the past with significant history of prior alcoholism. Also incidentally found to be hypoglycemic in the ED (since resolved). Primary seizure disorder vs alcohol withdrawal vs hypoglycemia for active cause of seizure-like activity. He patient has not had any recurrence of seizure since admission to the hospital. He did receive 1 IV dose of Keppra on arrival to the ER and a dose of diazepam. Is unclear if the patient has been taking his seizure medications as directed. Will resume the patient's home Keppra and place patient on seizure precautions. Neurology was consult from the ER. -Per records, he was admitted to the hospital for similar symptoms from 12/19 through 12/26. Started on Keppra at that time. Evidence of prior CVA noted on MRI November 2024 with infarcts in bilateral basal ganglia and bilateral her periventricular white matter -Pending neuro recs if any, per note today, no recs for additional orders. Spoke with neuro today, rec only to continue Keppra. -No focal deficits (2) Hyperkalemia: Code(s): E87.5 - Hyperkalemia Status: Acute Assessment and Plan: The patient did have marked hyperkalemia and metabolic acidosis due to missing hemodialysis. The patient underwent emergent hemodialysis on 02/07. His repeat electrolyte panel had normalized to more expected values drip patient with compensated he end-stage renal disease. Potassium is now normalized. Nephrology has been consulted for dialysis management. The patient did receive IV insulin dextrose and calcium carbonate in the ER will is kella. Will repeat electrolyte panel in a.m.. -Neph following --outpatient dialysis clinic = [facility] --Primary barrel finisher = Dr. Deulca -Continue M/W/F dialysis schedule while inpt -K WDL with AM labs (3) ESRD on dialysis: Code(s): N18.6 - End stage renal disease; Z99.2 - Dependence on renal dialysis Status: Acute Assessment and Plan: Pt missed x1 day dialysis, regular schedule is M/W/F -See above -Hgb 7.4 with AM labs (4) Hypoglycemia: Code(s): E16.2 - Hypoglycemia, unspecified Status: Acute Assessment and Plan: Incidentally found to be hypoglycemic on arrival to the ER, resolved. -Daily labs (5) Hypertension: Qualifiers: Hypertension type: secondary to other renal disorders Qualified Code(s): I15.1 - Hypertension secondary to other renal disorders Code(s): I10 - Essential (primary) hypertension Status: Chronic Assessment and Plan: Resume patient's home metoprolol, amlodipine. Had missed doses on 02/06 -Added Hydral IV PRN for >180/100 -HD M/W/F (6) Alcohol abuse: Code(s): F10.10 - Alcohol abuse, uncomplicated Status: Acute Assessment and Plan: The patient is not having any obvious symptoms of alcohol withdrawal he does not have any active tremors diaphoresis or evidence of hallucination. Will monitor CIWA scores. Will continue home thiamin and folic acid supplementation. Will add benzodiazepines if patient's CIWA score becomes elevated. - Per night nursing, pt had been more tremulous and anxious. Most recent CIWA score of 13 today. Upon my visit, pt sound asleep after [place] dose. Placed PO Diazepam PRN order today. - Pt reports drinking x1 beer and 1/2 pint daily prior to admission, last drink 02/05 - CIWA scores undetectable (7) UTI (urinary tract infection): Qualifiers: Urinary tract infection type: acute cystitis Hematuria presence: without hematuria Qualified Code(s): N30.00 - Acute cystitis without hematuria Code(s): N39.0 - Urinary tract infection, site not specified Status: Acute Assessment and Plan: Patient did have an abnormal urinalysis and does have significant suprapubic tenderness. He does have a history of he polymicrobial UTI recently with 1 of the organisms being he she Pseudomonas. Patient has been placed on cefepime after review of prior microbiology. White count was elevated in the ER and a component of patient's confusion could be related to underlying UTI -BC not obtained, will obtain if pt status worsens -UC NGTD -Reports that initially he was having urinary frequency and urgency, will continue abx for x5 day course, switching to oral Cipro -Switched from cefepime IV to cipro PO on 02/09, completed -MRSA nasal negative -WBC 10.5 Plan Colace for constipation 02/11, continue inpt dialysis, PT/OT (both recommending SNF), pending SNF placement Medical Record Review I have reviewed the following patient records and this information was taken into consideration when formulating the assessment and plan.: previous labs Consultations Consultations: I have discussed the care of this pt with the consulting providers. Time Spent With Patient Time with patient: 25 - 35 minutes Subjective Date/time seen: 02/12/25 1210 Interval history: Visited pt while in HD. Pt sleeping upon my arrival, rousable to voice and touch. Continue to deny sx. Pending SNF placement. Review of Systems Review of Systems: All systems reviewed & are unremarkable except as noted in HPI and below Exam Narrative: Weight 67.5 kg BMI 20.2 Const: Other: No acute distress, he well-developed well-nourished HENMT: Other: He head is normocephalic atraumatic, mucous membranes are tacky, no oral pharyngeal erythema Eyes: Other: Positive conjunctival pallor, no scleral icterus, pupils are equal and reactive Neck: Other: No JVD, no lymphadenopathy Chest: Other: Tunneled dialysis catheter right upper chest Resp: Other: Clear to auscultation bilaterally, no increased work of breathing Cardio: Other: Regular rate, regular rhythm, 2+ bilateral radial and pedal pulses Tele 78bpm GI: Other: Soft, nontender, nondistended, normoactive bowel sounds : Other: Suprapubic tenderness noted on exam Skin: Other: No jaundice, no pallor Neuro: Other: A&O x4, no localizing neurologic deficits noted Extrem: Other: No clubbing, cyanosis or edema LUE with full cast applied Psych: Other: A&O x4 Objective Data Vital Signs Vital Signs: Vital Signs - 24 hr 02/11/25 14:00 02/11/25 20:00 02/11/25 20:27 Temperature 98.1 F Pulse Rate 67 70 68 Respiratory Rate 12 16 Blood Pressure 141/90 H Pulse Oximetry 100 100 Oxygen Delivery Room Air 02/11/25 21:55 02/12/25 05:46 02/12/25 06:00 Temperature 98 F 97.5 F L Pulse Rate 70 71 Respiratory Rate 16 20 Blood Pressure 132/82 168/84 H 172/79 H Pulse Oximetry 100 98 Oxygen Delivery 02/12/25 08:00 02/12/25 08:30 02/12/25 08:43 Temperature 98.2 F Pulse Rate 71 69 Respiratory Rate 20 18 Blood Pressure 164/89 H Pulse Oximetry 98 98 Oxygen Delivery Room Air Room Air 02/12/25 08:53 02/12/25 09:00 02/12/25 09:15 Temperature Pulse Rate 67 69 69 Respiratory Rate Blood Pressure 165/89 H 157/92 H 162/86 H Pulse Oximetry Oxygen Delivery 02/12/25 09:30 02/12/25 09:45 02/12/25 10:00 Temperature Pulse Rate 71 69 77 Respiratory Rate Blood Pressure 150/88 H 147/80 H 155/95 H Pulse Oximetry Oxygen Delivery 02/12/25 10:15 02/12/25 10:30 02/12/25 10:45 Temperature Pulse Rate 72 72 79 Respiratory Rate Blood Pressure 163/89 H 167/95 H 160/94 H Pulse Oximetry Oxygen Delivery 02/12/25 11:00 02/12/25 11:15 02/12/25 11:30 Temperature Pulse Rate 72 78 76 Respiratory Rate Blood Pressure 168/89 H 154/95 H 164/85 H Pulse Oximetry Oxygen Delivery 02/12/25 11:45 02/12/25 12:00 02/12/25 12:15 Temperature Pulse Rate 76 81 83 Respiratory Rate Blood Pressure 163/92 H 060/92 L 152/96 H Pulse Oximetry Oxygen Delivery Intake/Output Intake/Output: Intake & Output 02/09/25 02/10/25 02/11/25 02/12/25 23:59 23:59 23:59 23:59 Intake Total 1146 2040 1280 200 Output Total 2500 300 500 Balance -1354 1740 780 200 Meds/Results Medications: Active Medications Generic Name Dose Route Start Last Admin Trade Name Freq PRN Reason Stop Dose Admin Acetaminophen 650 mg 02/06/25 12:45 02/09/25 22:24 Acetaminophen 325 Mg Tablet PO 650 mg Q4H PRN Administration Mild Pain (1-3) or Fever Hydrocodone Bitart/Acetaminophen 1 tab 02/06/25 22:05 02/12/25 04:31 Hydrocodone/Acetaminophen (*Crx) 5-325 Mg Tablet PO 1 tab Q6H PRN Administration pain 7-10 Amlodipine Besylate 10 mg 02/07/25 09:00 02/11/25 08:17 Amlodipine Besylate 10 Mg Tablet PO 10 mg DAILY ANDER Administration Aspirin 81 mg 02/07/25 09:00 02/11/25 08:16 Aspirin 81 Mg Enteric Tablet PO 81 mg QAM ANDER Administration Atorvastatin Calcium 40 mg 02/07/25 09:00 02/11/25 08:17 Atorvastatin 40 Mg Tablet PO 40 mg DAILY ANDER Administration Clopidogrel Bisulfate 75 mg 02/07/25 09:00 02/11/25 08:17 Clopidogrel Bisulfate 75 Mg Tablet PO 75 mg QAM ANDER Administration Dextrose 12.5 gm 02/06/25 10:53 Dextrose 50% 25 Gm/50 Ml Syringe IV PUSH PRN PRN Hypoglycemia Protocol Diazepam 5 - 10 mg 02/08/25 07:26 Diazepam (*Crx) 5 Mg Tablet PO Q5M PRN CIWA > 15 Docusate Sodium 100 mg 02/10/25 11:47 02/11/25 08:17 Docusate Sodium 100 Mg Capsule PO 100 mg Q12H PRN Administration Constipation Epoetin Rodney-epbx 20,000 units 02/12/25 18:20 02/12/25 11:02 Epoetin Rodney-Epbx 20,000 Units/Ml Vial IV PUSH 02/12/25 18:21 20,000 units ONCE ONE Administration Famotidine 20 mg 02/07/25 09:00 02/11/25 08:17 Famotidine 20 Mg Tablet PO 20 mg DAILY ANDER Administration Finasteride 5 mg 02/07/25 09:00 02/11/25 08:17 Finasteride 5 Mg Tablet PO 5 mg DAILY ANDER Administration Folic Acid 1 mg 02/07/25 09:00 02/11/25 08:17 Folic Acid 1 Mg Tablet PO 1 mg DAILY ANDER Administration Glucagon 1 mg 02/06/25 10:53 Glucagon For Inj 1 Mg Vial IM PRN PRN Hypoglycemia Protocol Glucose 15 gm 02/06/25 10:53 Glucose Oral Gel 15 Gm Of Glucse In 37.5 Gm Tube PO PRN PRN Hypoglycemia Protocol Hydralazine HCl 10 mg 02/07/25 08:00 Hydralazine Hcl 20 Mg/Ml Vial IV PUSH Q6H PRN Blood Pressure - High Dextrose 1,000 mls @ 100 mls/hr 02/06/25 10:53 Dextrose 5% 1,000 Ml IVPB PRN PRN Hypoglycemia Protocol Albumin Human 50 mls @ 999 mls/hr 02/06/25 13:21 Albutein IVPB 03/08/25 13:20 Q10M PRN HYPOTENSION Levetiracetam 500 mg 02/06/25 22:15 02/11/25 20:26 Levetiracetam 500 Mg Tablet PO 500 mg Q12HR ANDER Administration Metoprolol Tartrate 50 mg 02/06/25 22:10 02/11/25 20:27 Metoprolol Tartrate 50 Mg Tab PO 50 mg Q12HR ANDER Administration Ondansetron HCl 4 mg 02/06/25 12:45 02/08/25 05:23 Ondansetron Inj 4 Mg/2 Ml Vial IV PUSH 4 mg Q4H PRN Administration Nausea Pantoprazole Sodium 40 mg 02/07/25 09:00 02/11/25 08:16 Pantoprazole 40 Mg Tablet PO 40 mg DAILY ANDER Administration Tamsulosin HCl 0.4 mg 02/06/25 22:20 02/11/25 20:27 Tamsulosin Hcl 0.4 Mg Capsule PO 0.4 mg HS ANDER Administration Thiamine HCl 100 mg 02/07/25 09:00 02/11/25 08:16 Thiamine Hcl 100 Mg Tablet PO 100 mg QAM ANDER Administration Radiology Results: ITS Impressions Head CT 02/06/25 10:00 IMPRESSION: 1. No gross acute intracranial process. 2. Several chronic appearing findings including advanced diffuse chronic microvascular white matter changes. 3. For new onset or refractory seizure disorder, correlation with brain MRI recommended for optimal evaluation. Chest X-Ray 02/06/25 10:11 IMPRESSION: 1. No focal acute process. Labs Labs: Laboratory Results - last 24 hr 02/11/25 02/11/25 02/12/25 17:09 21:36 04:39 WBC 10.5 H RBC 2.39 L Hgb 7.4 L Hct 23.7 L MCV 99.2 MCH 31.0 MCHC 31.2 L RDW 17.9 H Plt Count 298 MPV 10.6 H Immature Gran % (Auto) 0.6 H Neut % (Auto) 63.1 Lymph % (Auto) 23.1 [place] % (Auto) 9.1 H Eos % (Auto) 3.6 Baso % (Auto) 0.5 Lymph # (Auto) 2.44 [place] # (Auto) 1.0 H Eos # (Auto) 0.4 H Baso # (Auto) 0.1 Abs Immat Gran (auto) 0.06 H Absolute Neuts (auto) 6.7 Absolute Nucleated RBC 0.020 H Nucleated RBC % 0.2 Sodium 134 L Potassium 4.8 Chloride 101 Carbon Dioxide 26 Anion Gap 7 BUN 35 H Creatinine 10.49 H Estim Creat Clear Calc 6 Estimated GFR 5 L Glucose 81 POC Capillary Glucose 86 120 H Calcium 8.9 Phosphorus 4.4 Total Bilirubin 0.4 AST 21 ALT 9 Alkaline Phosphatase 90 Total Protein 6.6 Albumin 3.5 02/12/25 08:01 WBC RBC Hgb Hct MCV MCH MCHC RDW Plt Count MPV Immature Gran % (Auto) Neut % (Auto) Lymph % (Auto) [place] % (Auto) Eos % (Auto) Baso % (Auto) Lymph # (Auto) [place] # (Auto) Eos # (Auto) Baso # (Auto) Abs Immat Gran (auto) Absolute Neuts (auto) Absolute Nucleated RBC Nucleated RBC % Sodium Potassium Chloride Carbon Dioxide Anion Gap BUN Creatinine Estim Creat Clear Calc Estimated GFR Glucose POC Capillary Glucose 89 Calcium Phosphorus Total Bilirubin AST ALT Alkaline Phosphatase Total Protein Albumin Quality VTE Prophylaxis VTE prophylaxis: mechanical ordered
[2025-02-12] MEDS: CLOPIDOGREL BISULFATE 75 MG TABLET PO (12:56)
[2025-02-12] MEDS: ATORVASTATIN 40 MG TABLET PO (12:56)
[2025-02-12] MEDS: PANTOPRAZOLE 40 MG TABLET PO (12:56)
[2025-02-12] MEDS: ASPIRIN 81 MG ENTERIC TABLET PO (12:56)
[2025-02-12] MEDS: METOPROLOL TARTRATE 50 MG TAB PO ×2 (12:57→20:38)
[2025-02-12] MEDS: FAMOTIDINE 20 MG TABLET PO (12:57)
[2025-02-12] MEDS: FINASTERIDE 5 MG TABLET PO (12:57)
[2025-02-12] MEDS: THIAMINE HCL 100 MG TABLET PO (12:57)
[2025-02-12] MEDS: FOLIC ACID 1 MG TABLET PO (12:57)
[2025-02-12] MEDS: BISACODYL 10 MG SUPPOSITORY RECTAL (16:33)
[2025-02-12] MEDS: TAMSULOSIN HCL 0.4 MG CAPSULE PO (20:37)
[2025-02-13] MEDS: ACETAMINOPHEN 325 MG TABLET 650 MG PO ×2 (01:35→10:33)
[2025-02-13 05:17] VITALS: BP 152/64; PULSE 71; RESP 16; TEMP 36.5; O2SAT 97
[2025-02-13 05:22] LABS: Hematocrit 24.7 % (42.0-52.0); Hemoglobin 7.5 g/dL (14.0-18.0); Immature Granulocyte Percent A 0.5 % (0-0.5); Lymphocytes Absolute Auto 2.40 K/mm3 (0.9-3.2); Mean Corpuscular HGB Conc 30.4 g/dl (32-36); Mean Corpuscular Hemoglobin 30.1 pg (26-34); Mean Corpuscular Volume 99.2 fl (80-100); Nucleated Red Blood Cells Absolute Auto 0.040 K/mm3 (0.0-0.012); Nucleated Red Blood Cells Perc 0.3 % (0.0-0.2); Platelet Count Result 333 k/mm3 (150-375); Red Blood Count 2.49 M/mm3 (4.6-6.20); White Blood Count 14.7 K/mm3 (4.5-10.0)
[2025-02-13 05:33] LABS: Alanine Aminotransferase 10 U/L (6-50); Albumin Level 3.6 g/dL (3.5-5.1); Alkaline Phosphatase 93 U/L (38-126); Anion Gap 6 mmol/L (4-12); Aspartate Amino Transferase 19 U/L (17-59); Bilirubin,Total 0.3 mg/dL (0.2-1.3); Blood Urea Nitrogen 19 mg/dL (9-20); Calcium 9.0 mg/dL (8.4-10.2); Carbon Dioxide 29 mmol/L (22-30); Chloride 100 mmol/L (98-107); Estimated CRCL calculation 9 ml/min; Estimated Glomerular Filt Rate 8; Glucose 95 mg/dL (65-110); Potassium 4.2 mmol/L (3.4-5.0); Sodium 135 mmol/L (137-145); Total Protein 6.8 g/dL (6.3-8.2)
[2025-02-13] MEDS: FINASTERIDE 5 MG TABLET PO (07:57)
[2025-02-13] MEDS: FAMOTIDINE 20 MG TABLET PO (07:57)
[2025-02-13] MEDS: CLOPIDOGREL BISULFATE 75 MG TABLET PO (07:57)
[2025-02-13] MEDS: THIAMINE HCL 100 MG TABLET PO (07:57)
[2025-02-13] MEDS: HYDROcodone/acetaminophen (*CRX) 5-325 MG TABLET 1 TAB PO (07:57)
[2025-02-13] MEDS: METOPROLOL TARTRATE 50 MG TAB PO (07:57)
[2025-02-13] MEDS: ATORVASTATIN 40 MG TABLET PO (07:57)
[2025-02-13] MEDS: FOLIC ACID 1 MG TABLET PO (07:57)
[2025-02-13] MEDS: PANTOPRAZOLE 40 MG TABLET PO (07:57)
[2025-02-13] MEDS: ASPIRIN 81 MG ENTERIC TABLET PO (07:58)
--- NOTE | 2025-02-13 09:35 | PM.DS ---
DS: Admitting Diagnosis Discharge Date 02/13/2025 Admitting Diagnosis Seizure like activity, missed dialysis, UTI DS: Discharge Diagnosis Discharge Diagnosis (1) Seizure-like activity: Code(s): R56.9 - Unspecified convulsions Status: Acute Assessment and Plan: The patient presented to the ER after eating seizure-like activity. Cause for seizure is uncertain. Patient does have a history of seizures in the past with significant history of prior alcoholism. Also incidentally found to be hypoglycemic in the ED (since resolved). Primary seizure disorder vs alcohol withdrawal vs hypoglycemia for active cause of seizure-like activity. He patient has not had any recurrence of seizure since admission to the hospital. He did receive 1 IV dose of Keppra on arrival to the ER and a dose of diazepam. Is unclear if the patient has been taking his seizure medications as directed. Will resume the patient's home Keppra and place patient on seizure precautions. Neurology was consult from the ER. -Per records, he was admitted to the hospital for similar symptoms from 12/19 through 12/26. Started on Keppra at that time. Evidence of prior CVA noted on MRI November 2024 with infarcts in bilateral basal ganglia and bilateral her periventricular white matter -Pending neuro recs if any, per note today, no recs for additional orders. Spoke with neuro today, rec only to continue Keppra. -No focal deficits (2) Hyperkalemia: Code(s): E87.5 - Hyperkalemia Status: Acute Assessment and Plan: The patient did have marked hyperkalemia and metabolic acidosis due to missing hemodialysis. The patient underwent emergent hemodialysis on 02/07. His repeat electrolyte panel had normalized to more expected values drip patient with compensated he end-stage renal disease. Potassium is now normalized. Nephrology has been consulted for dialysis management. The patient did receive IV insulin dextrose and calcium carbonate in the ER will is Lokelma. Will repeat electrolyte panel in a.m.. -Neph following --outpatient dialysis clinic = [facility] --Primary manager school = Dr. Deluca -Continue M/W/ dialysis schedule while inpt -K WDL with AM labs (3) ESRD on dialysis: Code(s): N18.6 - End stage renal disease; Z99.2 - Dependence on renal dialysis Status: Acute Assessment and Plan: Pt missed x1 day dialysis, regular schedule is M// -See above -Hgb 7.5 with AM labs (4) Hypoglycemia: Code(s): E16.2 - Hypoglycemia, unspecified Status: Acute Assessment and Plan: Incidentally found to be hypoglycemic on arrival to the ER, resolved. -Daily labs (5) Hypertension: Qualifiers: Hypertension type: secondary to other renal disorders Qualified Code(s): I15.1 - Hypertension secondary to other renal disorders Code(s): I10 - Essential (primary) hypertension Status: Chronic Assessment and Plan: Resume patient's home metoprolol, amlodipine. Had missed doses on 02/06 -Added Hydral IV PRN for >180/100 -HD M// (6) Alcohol abuse: Code(s): F10.10 - Alcohol abuse, uncomplicated Status: Acute Assessment and Plan: The patient is not having any obvious symptoms of alcohol withdrawal he does not have any active tremors diaphoresis or evidence of hallucination. Will monitor CIWA scores. Will continue home thiamin and folic acid supplementation. Will add benzodiazepines if patient's CIWA score becomes elevated. - Per night nursing, pt had been more tremulous and anxious. Most recent CIWA score of 13 today. Upon my visit, pt sound asleep after [place] dose. Placed PO Diazepam PRN order today. - Pt reports drinking x1 beer and 1/2 pint daily prior to admission, last drink 02/05 - CIWA scores undetectable (7) UTI (urinary tract infection): Qualifiers: Hematuria presence: without hematuria Urinary tract infection type: acute cystitis Qualified Code(s): N30.00 - Acute cystitis without hematuria Code(s): N39.0 - Urinary tract infection, site not specified Status: Acute Assessment and Plan: Patient did have an abnormal urinalysis and does have significant suprapubic tenderness. He does have a history of he polymicrobial UTI recently with 1 of the organisms being he she Pseudomonas. Patient has been placed on cefepime after review of prior microbiology. White count was elevated in the ER and a component of patient's confusion could be related to underlying UTI -BC not obtained, will obtain if pt status worsens -UC NGTD -Reports that initially he was having urinary frequency and urgency, will continue abx for x5 day course, switching to oral Cipro -Switched from cefepime IV to cipro PO on 02/09, completed -MRSA nasal negative -WBC 14.5 with AM labs, upon assessment, no reasoning for this. Plan Discharge back home today with HH. Continue with [facility] dialysis schedule. DS: Summary Hospital Course Reason for hospitalization: Seizure like activity, missed dialysis, UTI Hospital Course: The patient is a 69-year-old male with a complex medical history including end-stage renal disease (ESRD) on hemodialysis (M/W/F), seizure disorder, chronic alcohol use, hypertension, chronic anemia, and recent left humerus fracture, who was admitted following an episode of seizure-like activity at home. On the morning of admission, he developed left facial twitching, left hand jerking, and dysarthria, prompting EMS activation. He was found to be hypertensive and hypoglycemic (glucose 47 mg/dL) in the ED, with laboratory evidence of missed dialysis: marked hyperkalemia (K+ 6.1 mmol/L), elevated creatinine (15.3 mg/dL), and metabolic acidosis. He also had leukocytosis and urinalysis suggestive of a urinary tract infection (UTI). Initial management in the ED included IV diazepam and a loading dose of levetiracetam for seizure control, IV dextrose for hypoglycemia, and standard hyperkalemia protocol (calcium gluconate, insulin/dextrose, albuterol, Lokelma). He responded well, with resolution of twitching and improvement in speech. Imaging (head CT) showed no acute intracranial process but did reveal chronic microvascular changes; chest X-ray was unremarkable. EKG showed sinus rhythm with nonspecific ST/T changes and peaked T-waves, consistent with hyperkalemia. The patient was admitted for further management. Emergent hemodialysis was performed, resulting in normalization of potassium and improvement in metabolic parameters. His home antihypertensives (amlodipine, metoprolol) were resumed after missed doses contributed to initial hypertension. He was continued on his home antiepileptic regimen (levetiracetam 500 mg BID), with neurology recommending no changes. CIWA protocol was initiated due to history of alcohol use, but he did not exhibit significant withdrawal symptoms during hospitalization; thiamine and folic acid supplementation were continued. For UTI, he was started on IV cefepime (based on prior cultures with Pseudomonas), later transitioned to oral ciprofloxacin to complete a 5-day course as symptoms improved and urine cultures were negative. Throughout his stay, the patient remained hemodynamically stable, tolerated dialysis well, and had no further seizure activity. His anemia, attributed to ESRD, was managed with epoetin anil during dialysis. He was monitored for recurrent hypoglycemia and maintained stable blood glucose levels with regular meals and monitoring. His mental status improved to baseline, and he was alert and oriented at discharge. At discharge, the patient was back to his baseline functional status. He was discharged home with home health services for physical/occupational therapy. He was instructed to continue his M/W/F dialysis schedule, take all home medications as prescribed (including levetiracetam), and follow up with his primary care provider and manager school. He was also advised to monitor for signs of infection, recurrent seizures, or other acute symptoms and to return to the ED if these occurred. Status at Discharge Overall status at discharge: patient is back to baseline Time Spent with Patient Time attestation: Total time spent providing and/or coordinating discharge services: Time spent: Greater than 30 minutes Exam Narrative: Weight 67.5 kg BMI 20.2 Const: Other: No acute distress, he well-developed well-nourished HENMT: Mouth: Yes moist mucous membranes Other: He head is normocephalic atraumatic, no oral pharyngeal erythema Eyes: Other: Positive conjunctival pallor, no scleral icterus, pupils are equal and reactive Neck: Other: No JVD, no lymphadenopathy Chest: Other: Tunneled dialysis catheter right upper chest Resp: Other: Clear to auscultation bilaterally, no increased work of breathing Cardio: Other: Regular rate, regular rhythm, 2+ bilateral radial and pedal pulses Tele 78bpm GI: Other: Soft, nontender, nondistended, normoactive bowel sounds : Other: No Suprapubic TTP Skin: Other: No jaundice, no pallor Neuro: Other: A&O x4, no localizing neurologic deficits noted Extrem: Other: No clubbing, cyanosis or edema LUE with full cast applied Psych: Other: A&O x4 DS: Data Data Completed and Pending Completed studies during hospitalization: Labs, urine, imaging Labs on day of discharge: Labs from last 24 hours 02/13/25 02/12/25 02/12/25 04:58 20:24 17:25 WBC 14.7 H RBC 2.49 L Hgb 7.5 L Hct 24.7 L MCV 99.2 MCH 30.1 MCHC 30.4 L RDW 18.6 H Plt Count 333 MPV 10.6 H Immature Gran % (Auto) 0.5 Neut % (Auto) 70.7 Lymph % (Auto) 16.4 L Oliver % (Auto) 9.7 H Eos % (Auto) 2.3 Baso % (Auto) 0.4 Lymph # (Auto) 2.40 Oliver # (Auto) 1.4 H Eos # (Auto) 0.3 Baso # (Auto) 0.1 Abs Immat Gran (auto) 0.08 H Absolute Neuts (auto) 10.4 H Absolute Nucleated RBC 0.040 H Nucleated RBC % 0.3 H Sodium 135 L Potassium 4.2 Chloride 100 Carbon Dioxide 29 Anion Gap 6 BUN 19 D Creatinine 7.25 H Estim Creat Clear Calc 9 Estimated GFR 8 L Glucose 95 POC Capillary Glucose 120 H 113 H Calcium 9.0 Phosphorus 3.4 Total Bilirubin 0.3 AST 19 ALT 10 Alkaline Phosphatase 93 Total Protein 6.8 Albumin 3.6 02/12/25 13:00 WBC RBC Hgb Hct MCV MCH MCHC RDW Plt Count MPV Immature Gran % (Auto) Neut % (Auto) Lymph % (Auto) Oliver % (Auto) Eos % (Auto) Baso % (Auto) Lymph # (Auto) Oliver # (Auto) Eos # (Auto) Baso # (Auto) Abs Immat Gran (auto) Absolute Neuts (auto) Absolute Nucleated RBC Nucleated RBC % Sodium Potassium Chloride Carbon Dioxide Anion Gap BUN Creatinine Estim Creat Clear Calc Estimated GFR Glucose POC Capillary Glucose 88 Calcium Phosphorus Total Bilirubin AST ALT Alkaline Phosphatase Total Protein Albumin Discharge Plan Discharge Attending physician on discharge: Adrien Reid Consulting providers: Omar Arguello Riaz; Blanca Knott Discharging Clinician: Blanca Knott Anticipated Discharge Date/Time: 02/13/25 14:00 Patient Disposition: Home with Home Health Service Activity: as tolerated Diet: renal Discharge Instructions: 1. Continue on your dialysis schedule 2. Continue to take your anti seizure medication, Keppra (levetiracetam) 500mg twice day (every 12 hours). This is important to continue to take so you do not have any more seizures. Per Care Coordination, patient to discharge with [facility] ([phone]) for PT/OT and longterm services. Agency will call to arrange initial visit. Continue to check your blood pressure and blood sugar at home if applicable. Keep your scheduled appts with your primary care provider and any specialist that you may see. Return to the emergency department if you develop sudden shortness of breath, chest pain, a fever of greater than 101.5, or nausea, vomiting, abd pain, or diarrhea that does not go away. Follow-up with your primary care provider within 1-2 weeks, they will want to be updated on your inpatient stay in the hospital. Thank you for choosing [facility] for your healthcare needs. Patient Instructions: Epilepsy (GEN), Abuse of Alcohol (GEN) Patient Language: Kinyarwanda Stand Alone Forms: General Discharge Information Follow-up/Referrals: JimboAmanda MD [Other] - 02/19/25 Discharge Medications: Continued amlodipine 10 mg tablet 10 mg PO DAILY famotidine 20 mg tablet 20 mg PO DAILY tamsulosin 0.4 mg capsule 0.4 mg PO HS pantoprazole 40 mg tablet,delayed release (DR/EC) 40 mg PO DAILY finasteride 5 mg tablet 5 mg PO DAILY acetaminophen 500 mg capsule 500 mg PO Q6H PRN (Reason: pain) hydrocodone-acetaminophen 5-325 mg tablet 1 tablet PO Q6H PRN (Reason: pain) Qty: 20 0RF atorvastatin 40 mg Tablet 40 mg PO DAILY Qty: 30 2RF clopidogrel 75 mg Tablet 75 mg PO QAM Qty: 30 2RF aspirin 81 mg Tablet,Delayed Release (Dr/Ec) 81 mg PO QAM Qty: 30 2RF levetiracetam [Keppra] 500 mg Tablet 500 mg PO Q12HR Qty: 60 2RF folic acid 1 mg Tablet 1 mg PO DAILY Qty: 30 2RF thiamine HCl (vitamin B1) [Vitamin B-1] 100 mg Tablet 100 mg PO QAM Qty: 30 2RF metoprolol tartrate 50 mg Tablet 50 mg PO Q12HR Qty: 60 2RF Date of admission: 02/07/25 12:58 Primary Care Provider: JimboAmanda MD Admitting Provider: Дмитрий Mike Attending physician on admission: Дмитрий Mike Condition: Stable Quality VTE Prophylaxis VTE prophylaxis: mechanical ordered Hospitalist MIPS Heart Failure (Exclusion) Patient has history of Heart Transplant or Left Ventricular Assistive Device?: No IF YES, STOP HERE Heart Failure (Qualifier) Patient has current or prior documentation of LVEF less than or equal to 40%, or mod/servere depressed LVSF?: No IF NO, STOP HERE
== END 2025-02-13 13:25 | disposition home health service (06) | DRG 100 ==
LOC: ANHED 12:32 → ANH3MEDSUR 13:49 → ANH2MED 18:20
PROVIDERS: Internal Medicine; Admitting Provider Family Medicine; Emergency Provider Physician Assistant
DX: G40.909 Epilepsy, unspecified, not intractable, without status epilepticus (principal); N18.6 End stage renal disease; E87.21 Acute metabolic acidosis; N39.0 Urinary tract infection, site not specified; I12.0 Hypertensive chronic kidney disease with stage 5 chronic kidney disease or end stage renal disease; D63.1 Anemia in chronic kidney disease; F10.20 Alcohol dependence, uncomplicated; Z99.2 Dependence on renal dialysis; E87.5 Hyperkalemia; E16.2 Hypoglycemia, unspecified; K59.00 Constipation, unspecified; K21.9 Gastro-esophageal reflux disease without esophagitis; F17.210 Nicotine dependence, cigarettes, uncomplicated; S42.302D Unspecified fracture of shaft of humerus, left arm, subsequent encounter for fracture with routine healing; W18.30XD Fall on same level, unspecified, subsequent encounter; Z86.73 Personal history of transient ischemic attack (TIA), and cerebral infarction without residual deficits
CPT/HCPCS: 36415; 70450; 71046; 80048; 80053; 81001; 82077; 82948; 83605; 83735; 84100; 85025; 85027; 85610; 85730; 87086; 87641; 93005; 96361; 96365; 96367; 96375; 97110; 97140; 97161; 97166; 97530; 97535; 99285; A9270; G0257; G0378; J0612; J0692; J1644; J1938; J1953; J2405; J3360; J3411; J7030; Q5105

== ENCOUNTER 2025-02-15 23:13 | Observation (INO) | payer MEDICARE, MEDICAID, SELFPAY ==
--- NOTE | ~2025-02-15 | CT_ITS ---
CT HEAD NON-CONTRAST Clinical History: GLASER, hx CVA Comparison: 02/06/2025 Technique: Unenhanced axial images skull base to vertex Coronal, sagittal reformats CT images acquired with automatic exposure control for dose reduction DLP: 757 mGy-cm Findings: Age-related atrophy. Chronic white matter microvascular ischemic changes. Basal ganglia and thalamic lacunae. Sulci, ventricles: Unremarkable. No intracerebral hemorrhage. No evidence acute territorial infarct. No mass effect, midline shift. Bony calvarium intact. Visualized paranasal sinuses: Clear. Mastoid air cells: Clear. IMPRESSION: 1. No acute intracranial findings. Reviewed, dictated and finalized at location R. CTOR OF CATEGORY MANAGEMENT
--- NOTE | ~2025-02-15 | MR_ITS ---
EXAM/PROCEDURE: MR brain/brain stem wo/w con HISTORY: CVA COMPARISON: None available. TECHNIQUE: Pre and postcontrast enhanced multiplanar MRI of the brain performed FINDINGS: Lacunar size area of restricted diffusion in the left external capsule noted, bright on DWI and hypointense on ADC mapping. No other area of acute ischemia seen. Extensive periventricular T2 weighted hyperintense white matter changes present throughout both cerebral hemispheres, and in the pontine portion of the brainstem. Possible small old lacunar infarctions in the daniel, as well as in both right and left basal ganglia regions. On postcontrast series no abnormal enhancing lesions or masses. No mass, mass effect or hemorrhage. Vascular flow voids patent at skull base. No hippocampal sclerosis. IMPRESSION: 1. Acute lacunar infarction in the left external capsule. 2. Extensive chronic microvascular ischemic appearing changes, and old lacunar infarctions in both basal ganglia regions and probably in the pontine portion of the brainstem as well. Reviewed, dictated and finalized at location A. 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 Acute lacunar infarction in the left external capsule. 2. Extensive chronic microvascular ischemic appearing changes, and old lacunar infarctions in both basal ganglia regions and probably in the pontine portion o f the brainstem as well.
--- NOTE | ~2025-02-15 | CT_ITS ---
EXAMINATION: CTA brain carotid DATE: 02/15/2025 23:53 INDICATION: Headache. Stroke. TECHNIQUE: Computed tomographic angiography (CTA) of the head was performed with 100 mL Omnipaque-350 intravenous contrast. CTA of the neck was performed with intravenous contrast. Automated exposure control and iterative reconstruction technique were employed. The dose-length product was 1131.65 mGy-cm. Maximum intensity projection and volume rendered 3D-reconstructions were created by the technologist on a separate workstation. COMPARISON: Head CT 02/15/2025, brain MRI 12/20/2024 FINDINGS: HEAD CTA: There are scattered areas of low attenuation in the cerebral white matter. There are old infarcts in the bilateral thalami, basal ganglia, and internal capsules. There is no intracranial hemorrhage, acute infarction, or abnormal intracranial mass lesion. The ventricles are normal in size. There are old blow-out fractures of medial wall and floor of left orbit. There is mild mucosal thickening in the paranasal sinuses. The mastoid air cells are normal. The vertebral arteries are codominant. There is no significant stenosis of basilar artery or the posterior cerebral arteries. There is no significant stenosis of the intracranial internal carotid arteries or anterior or middle cerebral arteries. Anterior communicating artery is normal. The posterior communicating arteries are normal. There is no aneurysm. NECK CTA: There are no pathologically enlarged lymph nodes. There is no significant stenosis of the vertebral arteries. There is plaque in the proximal internal carotid arteries. There is 0% stenosis of the proximal right internal carotid artery relative to normal distal artery lumen diameter (NASCET c riteria). There is 27% stenosis of the proximal left internal carotid artery relative to normal distal artery lumen diameter. There is severe cervical spondylosis. IMPRESSION: 1. 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 2. Extensive nonspecific cerebral white matter disease, which likely represents chronic small vessel ischemic disease. 3. No aneurysm or significant intracranial arterial stenosis. 4. 0% stenosis of the proximal right internal carotid artery relative to normal distal artery lumen diameter (NASCET criteria). 5. 27% stenosis of the proximal left internal carotid artery relative to normal distal artery lumen diameter. Reviewed, dictated and finalized at location E. FITS PROCESSOR IMPRESSION: 1. Old infarcts involving the bilateral thalami, basal ganglia, and internal ca psules. 2. Extensive nonspecific cerebral white matter disease, which likely represents chronic small vessel ischemic disease. 3. No aneurysm or significant intracranial arterial stenosis. 4. 0% stenosis of the proximal right internal carotid artery relative to normal distal artery lumen diameter (NASCET criteria). 5. 27% stenosis of the proximal left internal carotid artery relative to normal distal artery lumen diameter.
--- NOTE | ~2025-02-15 | XR_ITS ---
EXAM/PROCEDURE: XR abdomen/kub 1V HISTORY: MRI CLEARENCE, KIDNEY STENT? COMPARISON: CT of the abdomen and pelvis exam from September 2024 TECHNIQUE: KUB FINDINGS: No metallic radiopaque foreign body seen to preclude MRI IMPRESSION: Patient is cleared for MRI. Reviewed, dictated and finalized at location A. KNOCKER IMPRESSION: Patient is cleared for MRI.
[2025-02-15 23:16] VITALS: BP 182/101; PULSE 73; RESP 20; TEMP 36.8; O2SAT 100
--- NOTE | 2025-02-15 23:18 | ECG_ITS ---
Test Date: 2025-02-15 23:24:43 Measurements Intervals [place] Rate: 68 P: 63 DE: 185 QRS: 3 QRSD: 81 T: 45 QT: 432 QTc: 461 Interpretive Statements SINUS RHYTHM DELAYED PRECORDIAL R/S TRANSITION BORDERLINE ECG Compared to ECG 02/06/2025 10:17:32 No significant changes Electronically Signed On 02-16-2025 06:33:24 STOCK REPAIRER by Richard Steve D.O.
--- NOTE | 2025-02-15 23:53 | ED.ALCOHOL ---
HPI - Alcohol General Chief Complaint: Headache Stated Complaint: GLASER, ETOH+, RECENT CVA Time Seen by Provider: 02/15/25 23:18 History of Present Illness HPI narrative: 69-year-old male with history of end-stage renal disease on dialysis Wednesday, Wednesday, Wednesday, seizure disorder on Keppra, alcohol abuse history, prior CVAs with multiple previous infarcts on MRI. Patient presents to the emergency department today with 2 hours of a right frontal headache. Patient states he was drinking vodka throughout the day as well as beers. He is awake alert oriented x4 but slurring his speech. He states that the right front of his head is hurting him. Has not missed any dialysis sessions. No other complaints at this time. Was otherwise in his normal state of health but was discharged from the hospital 2 days ago after he was admitted for seizure-like activity and alcohol withdrawal potential. According to EMS patient has a history of prior stroke last week per family, but has had a CT scan here during his recent admission that was unremarkable for any acute events. Has had previous brain MRIs and CT angiographies showing old strokes and chronic disease . Patient has no neurological complaints besides his headache. Is wearing a cast on his left upper extremity secondary to a recent fracture. He also has a previous surgery on the left lower extremity with a fusion. Related Data Home Medications ?Medication ?Instructions ?Recorded ?Confirmed ?Last Taken ?Type acetaminophen 500 mg capsule 500 mg PO Q6H PRN pain 03/12/24 02/16/25 02/15/25 History amlodipine 10 mg tablet 10 mg PO DAILY 03/12/24 02/16/25 02/15/25 History famotidine 20 mg tablet 20 mg PO DAILY 03/12/24 02/16/25 02/15/25 History finasteride 5 mg tablet 5 mg PO DAILY 03/12/24 02/16/25 02/15/25 History pantoprazole 40 mg tablet,delayed 40 mg PO DAILY 03/12/24 02/16/25 02/15/25 History release tamsulosin 0.4 mg capsule 0.4 mg PO HS 03/12/24 02/16/25 02/15/25 History Allergies Allergy/AdvReac Type Severity Reaction Status Date / Time ISRAEL Inhibitors Allergy Severe Unknown Verified 02/16/25 03:07 lisinopril Allergy Intermediate Itching Verified 02/16/25 03:07 Review of Systems Review of Systems: as reviewed above in HPI All systems reviewed & are unremarkable except as noted in HPI and below PMFSH Past Medical History Medical History Normal nuclear stress test (03/2024) Carotid stenosis Marked atherosclerotic vascular calcification the intercranial carotid artery (unclear from radiologic interpretation but seems like this is bilateral based on the phrasing) 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 difficile colitis 11/2024 Chronic alcoholism Seizure after head injury Anemia in CKD (chronic kidney disease) ESRD on dialysis M/W/F with tunneled dialysis catheter in the right upper chest GERD (gastroesophageal reflux disease) Hypertension Surgical History Surgical History No history of previous surgery Family History Family History Father Diabetes mellitus Mother Hypertension Social History Social History Social History: The patient's lives with his sister. The patient states that he has 2 sons. 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 He smokes every day and has smoked up to a pack of cigarettes a week since he was a teenager. He reports that he used to drink a pt every other day during the week and a pt every day on the weekend but has not drink any alcohol except for 1 beer on 02/05/2025. Code status: Full code Surrogate decision maker: Sister Smoking status: Current every day smoker Tobacco type: cigarettes Second hand tobacco smoke exposure: Yes Alcohol intake: current Drinks per week: 15 Substance use: never Substance use type: does not use Other substance usage details: drinks vodka/beer Lack of Transportation: No Lack of Food: Never True Current Housing: I Have Housing Concerned About Future Housing: No Difficulty Paying Gas/Electric Bills: No Difficulty Paying for Meds: No Currently Unemployed: No Education: Grade School Difficulty w/ Childcare or Family Care: No Spiritual care concerns: No Exam Narrative: GENERAL: intoxicated, slurring his speech, awake and able to answer questions. Complaints of a Right frontal headache. HEAD: Normocephalic and atraumatic EYES: PERRLA, extraocular movements are intact ENT: Nares clear, no rhinorrhea or epistaxis. Mucous membranes moist. NECK: Supple. CHEST: no respiratory distress or tachypnea. Clear to auscultation. right chest port for dialysis intact without any signs of infection or irritation. HEART: [Regular rate and rhythm]. No murmur heard. [Normal peripheral pulses.] ABDOMEN: [Soft, nondistended], [nontender], [No rigidity or guarding] EXTREMITIES: Normal range of motion. Full cast on the left upper extremity. Previous surgical interventions on left ankle/heel with fusion SKIN: Warm, dry, no rash. NEURO: Cranial nerves 2-12 are intact, awake alert oriented answering all questions appropriately. No ataxia in the arms or legs. Symmetric strength in the bilateral upper extremities. Sensation intact throughout both arms and legs. Questionable left lower extremity drift verses lack of effort compared to the right side which has better effort and no drift. PSYCH: [Normal mood and affect.] Course Vital Signs Vital signs: Vital Signs Temperature 36.8 C 02/15/25 23:16 Pulse Rate 73 02/15/25 23:16 Respiratory Rate 20 02/15/25 23:16 Blood Pressure 182/101 H 02/15/25 23:16 Pulse Oximetry 100 02/15/25 23:16 Oxygen Delivery Room Air 02/15/25 23:16 Temperature 36.4 C 02/16/25 04:00 Pulse Rate 73 02/16/25 04:00 Respiratory Rate 18 02/16/25 04:00 Blood Pressure 162/103 H 02/16/25 04:00 Pulse Oximetry 100 02/16/25 04:00 Oxygen Delivery Room Air 02/15/25 23:16 [facility] MDM Narrative Medical decision making narrative: 69-year-old male with history of end-stage renal disease on dialysis Wednesday, Wednesday, Wednesday, seizure disorder on Keppra, alcohol abuse history, prior CVAs with multiple previous infarcts on MRI. Patient presents to the emergency department today with 2 hours of a right frontal headache. Patient states he was drinking vodka throughout the day as well as beers. He is awake alert oriented x4 but slurring his speech. He states that the right front of his head is hurting him. Has not missed any dialysis sessions. No other complaints at this time. Was otherwise in his normal state of health but was discharged from the hospital 2 days ago after he was admitted for seizure-like activity and alcohol withdrawal potential. According to EMS patient has a history of prior stroke last week per family, but has had a CT scan here during his recent admission that was unremarkable for any acute events. Has had previous brain MRIs and CT angiographies showing old strokes and chronic disease . Patient has no neurological complaints besides his headache. Is wearing a cast on his left upper extremity secondary to a recent fracture. He also has a previous surgery on the left lower extremity with a fusion. Cranial nerves 2-12 are intact, awake alert oriented answering all questions appropriately. No ataxia in the arms or legs. Symmetric strength in the bilateral upper extremities. Sensation intact throughout both arms and legs. Questionable left lower extremity drift verses lack of effort compared to the right side which has better effort and no drift. patient is slurring his speech but likely from alcohol intoxication is he admits to drinking heavily throughout the day. He is awake and answering all my questions appropriately. He is hypertensive but otherwise hemodynamically stable without any tachycardia or fever. I questioned him further about the subjective headache as well as the left lower extremity physical exam findings. He states he was not doing anything strenuous or exertional and just had a headache starting after he was drinking throughout the evening. Onset about 2 hours ago. Has not progressed and not intense. When asked about the left lower extremity he states that that has been chronic but not able to tell me exactly how long it has been going on, possibly due to his intoxication. I did review patient's EMR and there does not appear to be any documentation of his left lower extremity findings on recent examinations but patient states that that is not new for him. Given the vague complaints as well as alcohol intoxication and a right-sided headache with potential left-sided deficits a CT scan CT angiography was ordered given his stroke history. He is on dual antiplatelet therapy but no other anticoagulants or blood thinners. No traumatic injuries. workup underway with EKG, CT scans, laboratory assessments and coagulation panel. Patient placed on patient monitor and re-evaluated. Patient's alcohol level is elevated consistent with historical elements. His CT scans show no acute abnormalities and stable from prior CT on February 06. CT angiography shows no aneurysm stenosis or major occlusion. He has some plaques less than 50% stenosis in the carotid arteries. No dissection or vertebral artery stenosis. I went and re-evaluated the patient once again and he was still having a minor headache but only recently got the Tylenol. Given the lack of any bleed he was given compazine and diphenhydramine with fluids for migraine. I asked him once again about the symptoms he has been experiencing in his left lower extremity and he states he's having trouble using it and initiating movement, but sensation intact and that this has been at least a week in duration. Consistent with EMS report stating that family said that he had a stroke last week. Not a candidate for interventions given lack of LVO, current antiplatelet use, and recent stroke. Would benefit from admission for further delineation with likely repeat MRI and Neurology/PT/OT evaluation. Did review his laboratory studies an EKG and unremarkable findings. Spoke to the hospitalist and patient was accepted to a telemetry monitored bed. Differential Diagnosis Differential Diagnosis: Alcohol intoxication, migraine, tension headache, dehydration, electrolyte imbalances, stroke, traumatic brain injury, subarachnoid hemorrhage Lab Data 02/15/25 23:36 02/15/25 23:36 Labs: Lab Results 02/15/25 02/16/25 02/16/25 Range/Units 23:36 00:17 00:32 WBC 11.6 H (4.5-10.0) K/mm3 RBC 2.89 L (4.6-6.20) M/mm3 Hgb 8.8 L (14.0-18.0) g/dL Hct 28.7 L (42.0-52.0) % MCV 99.3 (80-100) fl MCH 30.4 (26-34) pg MCHC 30.7 L (32-36) g/dl RDW 20.0 H (11.5-14.5) % Plt Count 436 H (150-375) k/mm3 MPV 10.6 H (7.4-10.4) fl Immature Gran % (Auto) 1.2 H (0-0.5) % Neut % (Auto) 62.8 (45.5-73.1) % Lymph % (Auto) 24.9 (18.3-44.2) % [place] % (Auto) 8.3 (2.6-8.5) % Eos % (Auto) 2.2 (0-4.4) % Baso % (Auto) 0.6 (0.2-1.2) % Lymph # (Auto) 2.89 (0.9-3.2) K/mm3 [place] # (Auto) 1.0 H (0.1-0.6) K/mm3 Eos # (Auto) 0.3 (0-0.3) K/mm3 Baso # (Auto) 0.1 (0.0-0.1) K/mm3 Abs Immat Gran (auto) 0.14 H (0.00-0.031) K/mm3 Absolute Neuts (auto) 7.3 H (1.3-6.7) K/mm3 Absolute Nucleated RBC 0.110 H (0.0-0.012) K/mm3 Nucleated RBC % 0.9 H (0.0-0.2) % PT 13.2 (11.1-14.7) Seconds INR 1.0 APTT 28.8 (22.3-36.8) Seconds Sodium 136 L (137-145) mmol/L Potassium 4.2 (3.4-5.0) mmol/L Chloride 94 L (98-107) mmol/L Carbon Dioxide 29 (22-30) mmol/L Anion Gap 13 H (4-12) mmol/L BUN 23 H (9-20) mg/dL Creatinine 8.30 H (0.7-1.3) mg/dL Estim Creat Clear Calc 8 ml/min Estimated GFR 6 L (59 - ) Glucose 71 (65-110) mg/dL POC Capillary Glucose 88 (65-105) mg/dl Calcium 9.3 (8.4-10.2) mg/dL Magnesium 2.3 (1.6-2.3) mg/dL Total Bilirubin 0.5 (0.2-1.3) mg/dL AST 42 (17-59) U/L ALT 11 (6-50) U/L Alkaline Phosphatase 111 (38-126) U/L Total Protein 7.9 (6.3-8.2) g/dL Albumin 4.2 (3.5-5.1) g/dL Ethyl Alcohol 88 (<10) mg/dL Discharge Plan Discharge Clinical Impression: Headache, Left leg weakness, History of recent stroke, ESRD on dialysis Patient Disposition: Still a Patient Condition: Stable
--- OUTSIDE RECORDS SUMMARY | 2025-02-15 23:56 | XMS_ITS | Patient Health Record ---
Author Organization E [facility] Address [address] [place] [address] Care Team Providers Care Grounds Cleaner Name Role Phone [facility], [facility]. Primary Care Provider [phone] Dr. Bridgett Hernandez [facility] Allergies Allergen (clinical drug ingredient) Drug/Non [...] W/U Status Risk Notes Problem Essential hypertension (74374372) Essential (primary) hypertension (I10) Active confirmed Problem Tobacco use (024290192) Tobacco use (Z72.0) Active confirmed Problem COPD - Chronic obstructive pulmonary disease (29650874) Chronic obstructive pulmonary disease, unspecified COPD type (J44.9) Active confirmed Problem Rheumatoid arthritis (56835919) Rheumatoid arthritis involving both hands, unspecified rheumatoid factor presence (M06.9) Active confirmed Problem Chronic kidney disease stage 3B (disorder) (213137905) Stage 3b chronic kidney disease (N18.32) Active confirmed Plan Of Treatment Pending Test Test Name Order Date venipuncture 01/11/2014 venipuncture 02/16/2014 venipuncture 11/02/2014 venipuncture 05/13/2015 venipuncture 01/14/2016 VENIPUNCTURE 06/27/2012 VENIPUNCTURE 07/11/2012 VENIPUNCTURE 10/18/2012 VENIPUNCTURE 04/25/2013 VENIPUNCTURE 04/19/2012 VENIPUNCTURE 11/14/2013 Insurance Providers Payer Name Payer Address Payer Phone Subscriber Number Group Number Insured Name Patient Relationship to Insured Coverage Start Date Coverage End Date [place] of [place] [employer] [place] [employer] Attention Claims [address] [place] [id number] Niesha Ceja Self - patient is the insured 2 [employer] [address] [address] [place] [id number] Niesha Ceja Self - patient is the insured 8 Medical (General) History Medical History History ICD Code hypertension tobacco use COPD rheumatoid arthritis crush injury to the left heel CKD Stage 3b Surgical History Surgery Date(Month/Year) [place] [facility] [place] 07-17-15 [facility] [place] [facility] Pneum[facility] 2019
--- OUTSIDE RECORDS SUMMARY | 2025-02-15 23:56 | XMS_ITS | Data Portability ---
Author Organization [place] - [facility], [facility] Address [address] [place] [address] 2[address] [place] [address] Care Team Providers Care Powerhouse Mechanic Apprentice Name Role Phone JACK NOVA Primary Care [...] 11:52:54 Procedures remote physiologic monitoring (PROC) - [facility] Device enrollment for Blood pressure cuff, Scale, & Pulse oximetry -- PLEASE INQUIRE IF PATIENT WILL NEED REGULAR SIZE CUFF OR LARGE CUFF Patient consents to remote patient monitoring and agrees to join [facility]'s clinical service. Please order device and schedule onboarding visit. 2023 024 VIVIAN [facility], [address], [place], [address], 4 15:28:25 rhythm ECG, 1-3 leads; with interpretat ion and report (PROC) 2023 024 [email or web address] Not available 4 17:15:52 Surgeries None recorded. Imaging US, echocardiog gerry, transthorac ic, follow-up/l imited 2023 024 [email or web address] [facility], [address], [place], [address], 13:02:29 Medication Orders None recorded. Patient TargetsNo targets recorded. Patient Instructions Encounter Date Encounter Id Patient Instructions Last Modified By Organization Details Last Modified Time 10/19/2023 [id number] high blood pressure: care instructions Not available [...] (PROC ) No observ ation record ed. [facility] [address], [place], [address], 10/19/2023 16:51:42 10/19/19 24 US, echoc ardio gram, trans thora cic, limit ed No observ ation record ed. [facility] [address], [place], [address], 10/19/2023 16:52:09 10/19/19 24 10/19/2023 US, echoc ardio gram, trans thora cic, follo w-up/ limit ed No observ ation record ed. [email or web address] [facility] [address], [place], [address], 10/20/2023 15:46:50 Result Notes None recorded. Problems Name Problem SNOMED Code Status Onset Date Resolution Date Notes Provider Name and Address Organization Details Recorded Time Palpitations 37106179 Active 2023 Jonathan Velasco MD [address] [address], [place], [address], [facility] - [facility] 4 13:47:58 Essential hypertension 95319587 Active 2023 Jonathan Velasco MD [address] [place] [address], [place], [address], [place] - [facility] 4 13:48:17 Smoker 04938344 Active 2023 Jonathan Velasco MD [address] [place] [address], [place], [address], [facility] - [facility] 4 13:48:56 Multiple premature ventricular complexes 025669763 Active 2023 Jonathan Velasco MD [address] [place] [address], [place], [address], [facility] - [facility] 4 13:55:46 Problem Notes Documentation [...] and input/output charting during the procedure inga carpenterJUMPING BRANCH, [place] - [facility] 10/23/2023 14:47:52 Medical Equipment None Reported. Allergies Allergen ID Allergen Name Allergen Category Reaction Reaction Severity Criticality Documentation Date Start Date Code Code System Note Provider Name and Address Organization Details Recorded Time 20079 lisinopri l medicatio n itching Not available high 01/22/2025 02439 RxNorm Not Available vivian - External Data Service - prod 05:18:17 30329 Product containin g angiotens in-conver ting enzyme inhibitor (product) medicatio n itching Not available high 01/22/2025 27398 009 SNOMED Not Available vivian - External Data Service - prod 5 05:18:17 25765 oxycodone medicatio n itching Not available high [...] Address Organization Details Last Updated DateTime 10/19/2023 06425.86 g 99 % 143/97 mm[Hg] ingabarrett lopez [place] - [facility] 10/19/2023 13:12:57 Social History None recorded. Functional Status None recorded. Mental Status None recorded. Family History Nothing Reported. Medical History No medical history recorded. Past Encounters Encounter ID Performer Location Encounter Start Date Encounter Closed Date Diagnosis/Indication Diagnosis SNOMED-CT Code Diagnosis ICD10 Code Diagnosis IMO Codes Diagnosis Note [id number] MD Keke [facility] [place] [address] [place] [address] 10/19/2023 13:13:10 10/19/2023 16:38:19 End stage renal failure on dialysis 011303549 Z99.2 on dialysis 3 times/wk- euvolemic, stable, has bladder cathether and urine bag, recent adm for infections /bleeding- f/b urology. Essential hypertension 65205426 I10 stable on meds- did not bring home meds, ? complaince - [facility] Smoker 61722942 F17.200 smoking cessation counsellin nohemi done, doesn't use inhalers Multiple p remature ventricular complexes 018424526 I49.3 pt has multiple pvc / pac [...] 1 [employer]ET[employer] (MEDICARE REPLACEMENT/ ADVANTAGE - HMO) [id number] Aime Ceja [id number] Niesha Ceja Notes Date Note Type Note Provider Name and Address Organization Details Recorded Time 10/19/2023 text/html ROS as noted in the HPI New consultESRD on dialysis, smoker, HTNlives with sister, 1 jenny house, independent for most ADL, doesn't drive, uses a cane to ambulatedenies prior VT, stroke, HF issues- poor historianno edema, no syncope, no angina reported 1 lead EKG shows sinus rhythm with freq PVC- pt denies palpitaionsdid not bring home meds Bedside limited Echo shows normal EF , no effusion Patient gives informed, verbal consent for chronic care management services via [facility]. We discussed benefits of care management and [...] consents to remote patient monitoring and the [facility] clinical service. Please send devices and schedule onboarding visit Jonathan Velasco MD [address] [place] [address], [place], [address], [place] - [facility] 10/20/2023 14:26:56
--- OUTSIDE RECORDS SUMMARY | 2025-02-15 23:57 | XMS_ITS | Clinical Summary ---
Author Organization [facility] Address [address] 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
--- OUTSIDE RECORDS SUMMARY | 2025-02-15 23:57 | XMS_ITS | Clinical Summary ---
Author Organization [facility] Address [facility] [place] [address] Care Team Providers Care Grape Cutter Name Role Phone Castro Spain MD Primary [...] or pharmacy Patient declines to respond 01/06/2024 [facility] Utilities Answer Date Recorded In the past 12 months has e [employer], oil, or water [employer] threatened to shut off services in your [...] time in the past 12 m [facility], were you homeless or living in a [facility]p (including now)? No 12/08/2023 Sex and Gender Information Value Date Recorded Sex Assigned at Not on file Legal Sex Male 8:12 PM PROVIDER RELATIONS SPECIALIST Gender Identity Not on file Sexual Orientation Not on file Last Filed Vital Signs Vital Sign Reading Time Taken Comments Blood Pressure 98/62 01/04/2024 1:10 PM PROVIDER RELATIONS SPECIALIST Pulse 82 01/04/2024 1:10 PM PROVIDER RELATIONS SPECIALIST Temperature 36.3 C (97.3 F) 01/04/2024 1:10 PM PROVIDER RELATIONS SPECIALIST Respiratory Rate 18 01/04/2024 1:10 PM PROVIDER RELATIONS SPECIALIST Oxygen Saturation 97% 01/04/2024 1:10 PM PROVIDER RELATIONS SPECIALIST Inhaled Oxygen Concentration - - Weight 63.9 [...] Blood. Added from external infection. Source: [facility]. 12/04/2022 Insurance [employer] AETNA MEDICARE Advance Directives * Full Code (Latest Code Status on File) Date Activated Date Inactivated Comments 12/15/2023 12:27 PM * Full Code Date Activated Date Inactivated Comments 12/08/2023 2:26 PM 12/14/2023 3:47 PM * Full Code Date Activated Date Inactivated Comments 03/06/2020 12:00 AM 03/07/2020 4:54 PM Care Teams Grape Cutter Relationship Specialty Start Date End Date Castro Spain MD PCP - General INFECTIOUS DISEASE 12/14/23
--- OUTSIDE RECORDS SUMMARY | 2025-02-15 23:57 | XMS_ITS | Clinical Summary ---
Author Organization [facility] Address [address] [place] [address] Care Team Providers Care C S S Representative Name Role Phone Unavailable Primary Care Provider Unavailabl e Source Comments [facility],non-owned Affiliates and Associated Physician Practices is amultiple site organization consisting of ambulatory clinics and hospital sitesin [place], [place], [place] and [place]. This disclosure is being madepursuant to the Care Everywhere program and may not contain all information available regarding this patient. Last updated 17.[facility] Panna Allergies Active Allergy Reactions Criticality Noted Date [...] topic Insurance MEDIC[place] AETNA TNA MEDICARE ADV
[2025-02-16] VITALS (29 sets, daily range): BP systolic 155–215; BP diastolic 51–134; PULSE 64–107; RESP 16–18; TEMP 36.4–37; O2SAT 97–100; BMI 20.7
[2025-02-16 00:13] LABS: Hematocrit 28.7 % (42.0-52.0); Hemoglobin 8.8 g/dL (14.0-18.0); Immature Granulocyte Percent A 1.2 % (0-0.5); Lymphocytes Absolute Auto 2.89 K/mm3 (0.9-3.2); Mean Corpuscular HGB Conc 30.7 g/dl (32-36); Mean Corpuscular Hemoglobin 30.4 pg (26-34); Mean Corpuscular Volume 99.3 fl (80-100); Nucleated Red Blood Cells Absolute Auto 0.110 K/mm3 (0.0-0.012); Nucleated Red Blood Cells Perc 0.9 % (0.0-0.2); Platelet Count Result 436 k/mm3 (150-375); Red Blood Count 2.89 M/mm3 (4.6-6.20); White Blood Count 11.6 K/mm3 (4.5-10.0)
[2025-02-16 00:14] LABS: Alanine Aminotransferase 11 U/L (6-50); Albumin Level 4.2 g/dL (3.5-5.1); Alkaline Phosphatase 111 U/L (38-126); Anion Gap 13 mmol/L (4-12); Aspartate Amino Transferase 42 U/L (17-59); Bilirubin,Total 0.5 mg/dL (0.2-1.3); Blood Urea Nitrogen 23 mg/dL (9-20); Calcium 9.3 mg/dL (8.4-10.2); Carbon Dioxide 29 mmol/L (22-30); Chloride 94 mmol/L (98-107); Estimated CRCL calculation 8 ml/min; Estimated Glomerular Filt Rate 6; Glucose 71 mg/dL (65-110); Magnesium 2.3 mg/dL (1.6-2.3); Potassium 4.2 mmol/L (3.4-5.0); Sodium 136 mmol/L (137-145); Total Protein 7.9 g/dL (6.3-8.2)
[2025-02-16] MEDS: ACETAMINOPHEN 500 MG TABLET 1000 MG PO (00:24)
[2025-02-16 00:50] LABS: INR 1.0; Prothrombin Time 13.2 Seconds (11.1-14.7)
[2025-02-16 00:53] LABS: Partial Thromboplastin Time 28.8 Seconds (22.3-36.8)
[2025-02-16] MEDS: SODIUM CHLORIDE 0.9% IV 1,000 ML 999 ML IV CONT (00:54)
[2025-02-16] MEDS: PROCHLORPERAZINE EDISYLATE 10 MG/2 ML VIAL IV PUSH (00:54)
[2025-02-16] MEDS: METOPROLOL TARTRATE 50 MG TAB PO ×2 (01:11→20:10)
--- NOTE | 2025-02-16 02:01 | WPCEDHO ---
ED Hand Off Checklist All vitals saved:yes IV Site documented:yes All med administrations documented:yes Triage Note Triage Note Pt to the Ed with C/O of 02/15/25 23:16 headache that started about 2 hours or more from ED arrival. Per EMS Pt had drank about a pint of vodka and a couple of beers. Pt is A and O X4. Pt states the head ache to the front right side of the head. Pt has a Hx of dialysis which is MWF for the pt. Pt is slightly slurring words. Allergies [place] Inhibitors Allergy (Severe, Verified 02/06/25 21:08) Unknown lisinopril Allergy (Intermediate, Verified 02/06/25 21:08) Itching Family History (Last Reviewed 02/15/25 @ 23:55 by Jimi Matos MD) Father Diabetes mellitus Mother Hypertension Administered/Completed Medications Discontinued Medications Acetaminophen (Acetaminophen 500 Mg Tablet) 1,000 mg PO ONCE STA Stop: 02/15/25 23:25 Last Admin: 02/16/25 00:24 Dose: 1,000 mg Documented By: RAYNA Amlodipine Besylate (Amlodipine Besylate 5 Mg Tablet) 5 mg PO ONCE STA Stop: 02/16/25 00:55 Last Admin: 02/16/25 01:12 Dose: 5 mg Documented By: RAYNA Diphenhydramine HCl (Diphenhydramine Hcl Inj 50 Mg/Ml Vial) 25 mg IV PUSH ONCE STA Stop: 02/16/25 00:44 Last Admin: 02/16/25 00:54 Dose: 25 mg Documented By: RAYNA Sodium Chloride (Normal Saline Iv) 1,000 mls @ 999 mls/hr IV CONT .Q1H1M STA Stop: 02/16/25 01:43 Last Admin: 02/16/25 00:54 Dose: 999 mls/hr Documented By: RAYNA Metoprolol Tartrate (Metoprolol Tartrate 50 Mg Tab) 50 mg PO ONCE STA Stop: 02/16/25 00:55 Last Admin: 02/16/25 01:11 Dose: 50 mg Documented By: RAYNA Prochlorperazine Edisylate (Prochlorperazine Edisylate 10 Mg/2 Ml Vial) 10 mg IV PUSH ONCE ONE Stop: 02/16/25 00:44 Last Admin: 02/16/25 00:54 Dose: 10 mg Documented By: RAYNA Interventions/Assessments IV / Saline Lock, Insert Start: 02/15/25 23:13 Freq: Status: Active Protocol: Document 02/16/25 00:54 PABLOG (Rec: 02/16/25 00:54 LLG [id number]) IV Assessment Peripheral Access Right Antecubital IV Catheter Access Initiated IV Insertion Date 02/16/25 IV Insertion Time 00:54 Catheter Gauge 20 IV Insertion 1 Attempts IV Site Assessment WNL IV Care and WNL Maintenance PA: Neurological Assessment Start: 02/15/25 23:13 Freq: Status: Active Protocol: Document 02/15/25 23:16 LLG (Rec: 02/15/25 23:29 LLG [id number]) Jewell Coma Scale Eyes Open Verbal Oriented and Alert Motor Follows Commands Jewell Coma Total 15 Score Neurological Assessment Level of Alert,Drowsy Consciousness Arousable to Verbal Orientation Oriented to Person,Oriented to Place,Oriented to Time Neurological None Symptoms Hallucination Type None Behavior Cooperative Memory Description Intact Ability to Maintain Unable to Assess Balance Facial Symmetry Symmetrical Last Vital Signs Temperature 98.2 F 02/15/25 23:16 Pulse Rate 72 02/16/25 01:59 Respiratory Rate 16 02/16/25 01:59 Pulse Oximetry 100 02/16/25 01:59 Blood Pressure 187/100 H 02/16/25 01:59 Blood Pressure Mean 129 02/16/25 01:59 Oxygen Delivery Room Air 02/15/25 23:16 Weight 70.6 kg 02/15/25 23:16 Last Result - Abnormals Only WBC 11.6 K/mm3 (4.5-10.0) H 02/15/25 23:36 RBC 2.89 M/mm3 (4.6-6.20) L 02/15/25 23:36 Hgb 8.8 g/dL (14.0-18.0) L 02/15/25 23:36 Hct 28.7 % (42.0-52.0) L 02/15/25 23:36 MCHC 30.7 g/dl (32-36) L 02/15/25 23:36 RDW 20.0 % (11.5-14.5) H 02/15/25 23:36 Plt Count 436 k/mm3 (150-375) H 02/15/25 23:36 MPV 10.6 fl (7.4-10.4) H 02/15/25 23:36 Immature Gran % (Auto) 1.2 % (0-0.5) H 02/15/25 23:36 Rains # (Auto) 1.0 K/mm3 (0.1-0.6) H 02/15/25 23:36 Abs Immat Gran (auto) 0.14 K/mm3 (0.00-0.031) H 02/15/25 23:36 Absolute Neuts (auto) 7.3 K/mm3 (1.3-6.7) H 02/15/25 23:36 Absolute Nucleated RBC 0.110 K/mm3 (0.0-0.012) H 02/15/25 23:36 Nucleated RBC % 0.9 % (0.0-0.2) H 02/15/25 23:36 Sodium 136 mmol/L (137-145) L 02/15/25 23:36 Chloride 94 mmol/L (98-107) L 02/15/25 23:36 Anion Gap 13 mmol/L (4-12) H 02/15/25 23:36 BUN 23 mg/dL (9-20) H 02/15/25 23:36 Creatinine 8.30 mg/dL (0.7-1.3) H 02/15/25 23:36 Estimated GFR 6 (59-) L 02/15/25 23:36
--- NOTE | 2025-02-16 03:30 | PC.NURSE ---
Patient admitted to room 349. He still complains of a severe headache and states no relief. 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 Patient states that is all new from today. Patient states he feels like hes had a stroke cause it feels the same as when he had a previous one. Patient swallowing with no complications. Patient having difficulty seeing and grabbing certain items. Unable to check his strength on the left side because he has a hard full arm cast and then the left ankle is wrapped up and states he sprained it. Patient oriented x 3 but forgetful at times as i was doing his admission. Patient states hes compliant with meds and dialysis and his sister, who he lives with, helps with all his medical needs.
--- NOTE | 2025-02-16 05:12 | PM.IMHP2 ---
H&P: HPI History of Present Illness Date/Time: 02/16/25 05:12 Chief Complaint: Headache Narrative: This is a 69-year-old male patient who has had multiple CVA and is end-stage renal dialysis on Wednesday. He also has seizures and is on Keppra. He has a history of alcoholism as well. The patient came to the emergency room with complaint of right frontal headache that started 2 hours prior to coming to the emergency room. The patient denied missing any dialysis sessions. The patient was discharged from the hospital 2 days ago on 02/13/2025 where he had been admitted for seizure-like activity in alcohol withdrawal. The patient has a cast to his left forearm for recent fracture and an Donovan wrap to his left ankle for a left ankle sprain. His white count was 11.6. Which was down from 14.72 days ago. His H&H is 8.828.7. This is up from H&H 2 days ago. Sodium is 136, anion gap is 13, BUN 23, creatinine is 8.3 and GFR 6. The patient was given in the emergency room, Norvasc, Lopressor, Tylenol, Benadryl, and Compazine. Head CT was noted as no acute intracranial findings. Head neck CTA was read as the following MPRESSION: 1. 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 2. Extensive nonspecific cerebral white matter disease, which likely represents chronic small vessel ischemic disease. 3. No aneurysm or significant intracranial arterial stenosis. 4. 0% stenosis of the proximal right internal carotid artery relative to normal distal artery lumen diameter (NASCET criteria). 5. 27% stenosis of the proximal left internal carotid artery relative to normal distal artery lumen diameter. The patient is being admitted to observation status on the date of service 02/16/2025. Review of Systems Constitutional: Constitutional: Reports as per HPI and Reports no additional constitutional complaints Eyes: Eyes: Reports as per HPI and Reports no additional eye complaints ENT: Reports system reviewed and no additional complaints, except as documented and Reports Normal hearing present Cardiovascular: Cardiovascular: Reports no additional cardiovascular complaints Respiratory: Respiratory: Reports as per HPI and Reports no additional respiratory complaints Gastrointestinal: Gastrointestinal: Reports as per HPI and Reports no additional gastrointestinal complaints Musculoskeletal: Musculoskeletal: Reports no additional musculoskeletal complaints Integumentary/Breasts: Skin/Breast: Reports system reviewed and no additional complaints, except as docu Neurologic: Reports system reviewed and no additional complaints, except as documented and Reports Normal hearing present Psychiatric: Psychiatric: Reports no additional psychiatric complaints and Reports as per HPI Hematologic/Lymphatic: Hematologic/Lymphatic: Reports no additional hematologic/lymphatic complaints Allergic/Immunologic: Allergic/Immunologic: Reports no additional allergic/immunologic complaints [facility] Past Medical History Medical History (Updated 02/16/25 @ 09:12 by Ruth Woods APRN) Tunneled central venous catheter present Normal nuclear stress test (03/2024) Carotid stenosis Marked atherosclerotic vascular calcification the intercranial carotid artery (unclear from radiologic interpretation but seems like this is bilateral based on the phrasing) 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 difficile colitis 11/2024 Chronic alcoholism Seizure after head injury Anemia in CKD (chronic kidney disease) ESRD on dialysis M/W/F with tunneled dialysis catheter in the right upper chest GERD (gastroesophageal reflux disease) Hypertension Surgical History Surgical History (Updated 02/16/25 @ 08:48 by Ruth Woods APRN) S/P dialysis catheter insertion Right upper chest No history of previous surgery Family History Family History Father Diabetes mellitus Mother Hypertension Social History Social History Social History: The patient's lives with his sister. The patient states that he has 2 sons. 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 He smokes every day and has smoked up to a pack of cigarettes a week since he was a teenager. He reports that he used to drink a pt every other day during the week and a pt every day on the weekend but has not drink any alcohol except for 1 beer on 02/05/2025. Code status: Full code Surrogate decision maker: Sister Smoking status: Current every day smoker Tobacco type: cigarettes Second hand tobacco smoke exposure: Yes Alcohol intake: current Drinks per week: 15 Substance use: never Substance use type: does not use Other substance usage details: drinks vodka/beer Lack of Transportation: No Lack of Food: Never True Current Housing: I Have Housing Concerned About Future Housing: No Difficulty Paying Gas/Electric Bills: No Difficulty Paying for Meds: No Currently Unemployed: No Education: Grade School Difficulty w/ Childcare or Family Care: No Spiritual care concerns: No Meds Home Medications and Allergies Home Medications ?Medication ?Instructions ?Recorded ?Confirmed ?Type acetaminophen 500 mg capsule 500 mg PO Q6H PRN pain 03/12/24 02/16/25 History amlodipine 10 mg tablet 10 mg PO DAILY 03/12/24 02/16/25 History famotidine 20 mg tablet 20 mg PO DAILY 03/12/24 02/16/25 History finasteride 5 mg tablet 5 mg PO DAILY 03/12/24 02/16/25 History pantoprazole 40 mg tablet,delayed 40 mg PO DAILY 03/12/24 02/16/25 History release tamsulosin 0.4 mg capsule 0.4 mg PO HS 03/12/24 02/16/25 History aspirin 81 mg tablet,delayed 81 mg PO QAM #30 tabs 12/26/24 02/16/25 Rx release atorvastatin 40 mg tablet 40 mg PO DAILY #30 tabs 12/26/24 02/16/25 Rx clopidogrel 75 mg tablet 75 mg PO QAM #30 tabs 12/26/24 02/16/25 Rx folic acid 1 mg tablet 1 mg PO DAILY #30 tabs 12/26/24 02/16/25 Rx levetiracetam 500 mg tablet 500 mg PO Q12HR #60 tabs 12/26/24 02/16/25 Rx (Keppra) metoprolol tartrate 50 mg tablet 50 mg PO Q12HR #60 tabs 12/26/24 02/16/25 Rx thiamine HCl (vitamin B1) 100 mg 100 mg PO QAM #30 tabs 12/26/24 02/16/25 Rx tablet (Vitamin B-1) hydrocodone 5 mg-acetaminophen 325 1 tablet PO Q6H PRN pain #20 tabs 01/06/25 02/16/25 Rx mg tablet Allergies Allergy/AdvReac Type Severity Reaction Status Date / Time DONOVAN Inhibitors Allergy Severe Unknown Verified 02/16/25 03:07 lisinopril Allergy Intermediate Itching Verified 02/16/25 03:07 Vital Signs Vital Signs - 24 hr 02/15/25 23:16 02/16/25 00:44 02/16/25 01:11 Temperature 98.2 F Pulse Rate 73 73 64 Respiratory Rate 20 16 Blood Pressure 182/101 H 193/101 H Pulse Oximetry 100 100 Oxygen Delivery Room Air 02/16/25 01:59 02/16/25 04:00 Temperature 97.6 F Pulse Rate 72 73 Respiratory Rate 16 18 Blood Pressure 187/100 H 162/103 H Pulse Oximetry 100 100 Oxygen Delivery Exam Const: General: cooperative, healthy appearing, comfortable, no acute distress, well developed and Physically active Orientation/consciousness: oriented to person and oriented to place Other: The patient continued to fall asleep during my interview. The patient was grunting empty when I attempted to wake him up. HENMT: Head: normal to inspection, No palpable skull fracture present, normocephalic, atraumatic and abrasion Ears: hearing grossly normal bilaterally Eyes: General: appearance normal, both eyes and all related structures Alignment and Position: alignment normal Eyelids: eyelids normal EOM: EOMs intact bilaterally Other: Patient would not open his eyes long enough for me to check for pearla Neck: Neck: normal visual inspection and full ROM Chest: Chest palpation & inspection: normal inspection of the chest Resp: Effort & Inspection: normal respiratory effort Auscultation: clear to auscultation bilaterally Cardio: Palpation: normal PMI Rate: regular rate Rhythm: regular rhythm Heart sounds: S1 normal heart sound present and S2 normal heart sound present Peripheral pulses: Peripheral pulses 2+ throughout GI: Inspection: normal to inspection Percussion: Yes normal to percussion Auscultation: normal bowel sounds Rectal Exam: deferred : General: Yes no CVA tenderness Back/Spine/Pelvis: Back: no CVA tenderness Cervical Spine: cervical ROM normal Skin: General skin exam: normal color Lesions: no lesions Rashes: no rashes Trauma: no lacerations or abrasions Wounds: no wounds Neuro: General: oriented to person, oriented to place, oriented to time and patient oriented x3 Cranial nerves: Yes Equal, round and reactive pupils present and Yes Normal hearing present Cognition (Neuro): normal cognition Speech: normal speech Sensory Exam: normal sensation Other: He has generalized weakness with equal hand pricing/signage team member and equal pedal pushes. The patient is moving all extremities. Patient has a cast to the left forearm and he has a wrap to the lower extremity where he has a ankle strain. Extrem: General: normal to inspection Right upper extremity: normal to inspection and shoulder/upper arm Left upper extremity: shoulder/upper arm Right lower extremity: normal to inspection Left lower extremity: normal to inspection Other: Cast intact to left forearm. Donovan wrap intact to left ankle. Tunneled catheter for dialysis PermCath is intact to right upper chest. Psych: Appearance: grossly normal Mental Status: mental status grossly normal Speech and movement: Normal speech and movement present Affect: normal affect Attitude: cooperative Thought process: Normal thought process present Thought content: Yes Normal thought content present Insight: Good insight present (Psych) Judgement: Good judgement present (Psych) Results Labs Labs: Short CBC 02/15/25 Range/Units 23:36 WBC 11.6 H (4.5-10.0) K/mm3 Hgb 8.8 L (14.0-18.0) g/dL Hct 28.7 L (42.0-52.0) % Plt Count 436 H (150-375) k/mm3 BMP 02/15/25 23:36 Sodium 136 L Potassium 4.2 Chloride 94 L Carbon Dioxide 29 BUN 23 H Creatinine 8.30 H Glucose 71 Calcium 9.3 Liver Function 02/15/25 Range/Units 23:36 Total Bilirubin 0.5 (0.2-1.3) mg/dL AST 42 (17-59) U/L ALT 11 (6-50) U/L Alkaline Phosphatase 111 (38-126) U/L Albumin 4.2 (3.5-5.1) g/dL Attestation: I personally reviewed all lab results ECG Attestation: I personally reviewed and interpreted this ECG as follows: Interpretation: Test Date: 2025-02-15 23:24:43 Measurements Intervals [place] Rate: 68 P: 63 [place]: 185 QRS: 3 QRSD: 81 T: 45 QT: 432 QTc: 461 Interpretive Statements SINUS RHYTHM DELAYED PRECORDIAL R/S TRANSITION BORDERLINE ECG Compared to ECG 02/06/2025 10:17:32 No significant changes Electronically Signed On 02-16-2025 06:33:24 PRODUCT MARKETING EXECUTIVE by Richard Power D.O. Imaging CT scan - head: Radiologist's impression: ITS Impressions Head/Neck CTA 02/16/25 07:35 IMPRESSION: 1. 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 2. Extensive nonspecific cerebral white matter disease, which likely represents chronic small vessel ischemic disease. 3. No aneurysm or significant intracranial arterial stenosis. 4. 0% stenosis of the proximal right internal carotid artery relative to normal distal artery lumen diameter (NASCET criteria). 5. 27% stenosis of the proximal left internal carotid artery relative to normal distal artery lumen diameter. Head CT 02/16/25 07:37 IMPRESSION: 1. No acute intracranial findings. Quality VTE Prophylaxis VTE prophylaxis: mechanical ordered Assessment and Plan Assessment and plan (1) Left leg weakness: Code(s): R29.898 - Other symptoms and signs involving the musculoskeletal system Status: Acute Assessment and Plan: -the patient was difficult to assess. His alcohol level was 88. -the patient also has a cast to his left arm and has a sprain to his left ankle. -however the patient came in with a complaint of headache -it was felt that the left lower extremity was weaker and the patient needed to stay and have stroke workup. -MRI is ordered. -neurology has been consulted.-neurology was consulted per ED physician -patient is moving all extremities without difficulty. -he was also falling asleep during the interview. -the patient has had multiple CVAs. -head neck CTA was read as following IMPRESSION: 1. 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 2. Extensive nonspecific cerebral white matter disease, which likely represents chronic small vessel ischemic disease. 3. No aneurysm or significant intracranial arterial stenosis. 4. 0% stenosis of the proximal right internal carotid artery relative to normal distal artery lumen diameter (NASCET criteria). 5. 27% stenosis of the proximal left internal carotid artery relative to normal distal artery lumen diameter. -continue with aspirin, Plavix, and atorvastatin. -PT OT evaluation greatly be appreciated. -the patient had a previous echo study on 12/21/2024 so I will cancel the current order that was placed per ED provider. Summary 1. BUBBLE STUDY APPEARS POSITIVE. PATIENT WOULD NOT HOLD STILL FOR BUBBLE STUDY. NURSE PUSHED 3 TIMES. 2. Agitated saline study revealed delayed [id number]-wo-tmso shunt suggesting extracardiac shunt. Color Doppler did not review intracardiac shunting. 3. The left ventricle is normal in size and systolic function. There is concentric left ventricular remodeling. The left ventricular ejection fraction is visually estimated to be 60-65%. There are no regional wall motion abnormalities. 4. The right ventricle is normal in size and systolic function. 5. The left atrium is mildly dilated. (2) Seizure-like activity: Code(s): R56.9 - Unspecified convulsions Status: Acute Assessment and Plan: -continue with Keppra. (3) ESRD on dialysis: Code(s): N18.6 - End stage renal disease; Z99.2 - Dependence on renal dialysis Status: Acute Assessment and Plan: -the patient has dialysis on Wednesday. -he has a PermCath to the right upper chest. -nephrology has been consulted. -continue to monitor phosphorus and electrolytes. (4) Hypertension: Qualifiers: Hypertension type: secondary to other renal disorders Qualified Code(s): I15.1 - Hypertension secondary to other renal disorders Code(s): I10 - Essential (primary) hypertension Status: Chronic Assessment and Plan: -continue with amlodipine and metoprolol. Hold metoprolol for heart rate less than 50. His blood pressure is elevated this morning 162/103. -p.r.n. hydralazine with parameters. (5) Alcohol abuse: Code(s): F10.10 - Alcohol abuse, uncomplicated Status: Acute Assessment and Plan: -start CIWA -folic acid -thiamin -telemetry -p.r.n. librium Alcohol level upon admission was 88 (6) BPH (benign prostatic hyperplasia): Code(s): N40.0 - Benign prostatic hyperplasia without lower urinary tract symptoms Status: Acute Assessment and Plan: -continue with finasteride Consultations Consultations: I have discussed the care of this pt with the consulting providers. (ER spoke with Neurology.)
--- NOTE | 2025-02-16 08:43 | P.PNIM_ITS ---
Assessment and Plan Assessment and Plan (1) Lacunar infarct, acute: Code(s): I63.81 - Other cerebral infarction due to occlusion or stenosis of small artery Status: Acute Assessment and Plan: * Patient difficult to assess - ETOH was 88 * Arrived to the hospital with complaint of headache - although left lower extremity was weaker - stroke workup initiated * Moves all extremities without difficulty * Hx of multiple CVAs * head/neck CTA: shows?chronic bilateral thalamic, basal ganglia, and internal capsule infarcts with extensive chronic small vessel ischemic white matter disease, without aneurysm or significant intracranial stenosis; carotid disease is minimal with?0% right ICA stenosis and 27% left ICA stenosis (NASCET). * Brain MRI: Acute lacunar infarction in the left external capsule, extensive chronic microvascular ischemic appearing changes, old lacunar infarctions in both basal ganglia regions and probably in the pontine portion of the brainstem * Neurology consult pending * Continue DAPT with aspirin and clopidogrel (2) Left leg weakness: Code(s): R29.898 - Other symptoms and signs involving the musculoskeletal system Status: Acute Assessment and Plan: * See above (3) Seizure-like activity: Code(s): R56.9 - Unspecified convulsions Status: Acute Assessment and Plan: * continue with Keppra (4) ESRD on dialysis: Code(s): N18.6 - End stage renal disease; Z99.2 - Dependence on renal dialysis Status: Acute Assessment and Plan: * Dialysis M/W/F * PermCath to right upper chest * nephrology consulted * Monitor phosphorus and electrolytes (5) Hypertension: Qualifiers: Hypertension type: secondary to other renal disorders Qualified Code(s): I15.1 - Hypertension secondary to other renal disorders Code(s): I10 - Essential (primary) hypertension Status: Chronic Assessment and Plan: * continue with amlodipine and metoprolol. Hold metoprolol for heart rate less than 50. His blood pressure is elevated this morning 162/103 * p.r.n. hydralazine with parameters (6) Alcohol abuse: Code(s): F10.10 - Alcohol abuse, uncomplicated Status: Acute Assessment and Plan: * start CIWA * folic acid * thiamin * telemetry * p.r.n. librium * Alcohol level upon admission was 88 (7) BPH (benign prostatic hyperplasia): Code(s): N40.0 - Benign prostatic hyperplasia without lower urinary tract symptoms Status: Acute Assessment and Plan: * continue with finasteride Subjective Date/time seen: 02/16/25 08:43 Interval history: 69-year-old male patient who has had multiple CVA and is end-stage renal dialysis on Wednesday. He also has seizures and is on Keppra. He has a history of alcoholism as well. The patient came to the emergency room with complaint of right frontal headache that started 2 hours prior to coming to the emergency room. 02/16/2025 Patient sitting comfortably in bed at time of examination. Denies any chest pain, shortness of breath, nausea/vomiting, headaches/dizziness or abdominal pain. Nephrology has been consulted in order to continue dialysis. Brain MRI shows acute lacunar infarction in the left external capsule. Plan to continue dual antiplatelet therapy with aspirin plus clopidogrel. Neurology consult still pending. Patient states that he feels much better today, and has no complaints as of right now. Review of Systems Review of Systems: All systems reviewed & are unremarkable except as noted in HPI and below Exam Const: General: cooperative, healthy appearing, comfortable, no acute distress, well developed and Physically active Orientation/consciousness: oriented to person, oriented to place, oriented to time and patient oriented x3 Other: The patient continued to fall asleep during my interview. The patient was grunting empty when I attempted to wake him up. HENMT: Head: normal to inspection, No palpable skull fracture present, normocephalic, atraumatic and abrasion Ears: hearing grossly normal bilaterally Eyes: General: appearance normal, both eyes and all related structures Alignment and Position: alignment normal Eyelids: eyelids normal Pupils: Equal, round and reactive pupils present EOM: EOMs intact bilaterally Other: Patient would not open his eyes long enough for me to check for pearla Neck: Neck: normal visual inspection and full ROM Chest: Chest palpation & inspection: normal inspection of the chest Resp: Effort & Inspection: normal respiratory effort Auscultation: clear to auscultation bilaterally Cardio: Palpation: normal PMI Rate: regular rate Rhythm: regular rhythm Heart sounds: S1 normal heart sound present and S2 normal heart sound present Peripheral pulses: Peripheral pulses 2+ throughout GI: Inspection: normal to inspection Auscultation: normal bowel sounds Rectal Exam: deferred : General: Yes no CVA tenderness Back/Spine/Pelvis: Back: no CVA tenderness Cervical Spine: cervical ROM normal Skin: General skin exam: normal color Lesions: no lesions Rashes: no rashes Trauma: no lacerations or abrasions Wounds: no wounds Neuro: General: oriented to person, oriented to place, oriented to time and patient oriented x3 Cranial nerves: Yes Equal, round and reactive pupils present and Yes Normal hearing present Cognition (Neuro): normal cognition Speech: normal speech Sensory Exam: normal sensation Other: He has generalized weakness with 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 The patient is moving all extremities. Patient has a cast to the left forearm and he has a wrap to the lower extremity where he has a ankle strain. Extrem: General: normal to inspection Right upper extremity: normal to inspection and shoulder/upper arm Left upper extremity: shoulder/upper arm Right lower extremity: normal to inspection Left lower extremity: normal to inspection Other: Cast intact to left forearm. Donovan wrap intact to left ankle. Tunneled catheter for dialysis PermCath is intact to right upper chest. Psych: Appearance: grossly normal Mental Status: mental status grossly normal Speech and movement: Normal speech and movement present Affect: normal affect Attitude: cooperative Thought process: Normal thought process present Insight: Good insight present (Psych) Judgement: Good judgement present (Psych) Objective Data Vital Signs Vital Signs: Vital Signs - 24 hr 02/15/25 23:16 02/16/25 00:44 02/16/25 01:11 Temperature 98.2 F Pulse Rate 73 73 64 Respiratory Rate 20 16 Blood Pressure 182/101 H 193/101 H Pulse Oximetry 100 100 Oxygen Delivery Room Air 02/16/25 01:59 02/16/25 04:00 02/16/25 04:00 Temperature 97.6 F Pulse Rate 72 73 83 Respiratory Rate 16 18 Blood Pressure 187/100 H 162/103 H Pulse Oximetry 100 100 Oxygen Delivery Intake/Output Intake/Output: Intake & Output 02/13/25 02/14/25 02/15/25 02/16/25 23:59 23:59 23:59 23:59 Intake Total 1000 Balance 1000 Meds/Results Medications: Active Medications Generic Name Dose Route Start Last Admin Trade Name Freq PRN Reason Stop Dose Admin Acetaminophen 650 mg 02/16/25 00:54 Acetaminophen 325 Mg Tablet PO Q4H PRN Mild Pain (1-3) or Fever Hydrocodone Bitart/Acetaminophen 1 tab 02/16/25 08:37 Hydrocodone/Acetaminophen (*Crx) 5-325 Mg Tablet PO Q6H PRN Pain Amlodipine Besylate 10 mg 02/16/25 09:00 Amlodipine Besylate 10 Mg Tablet PO DAILY [facility] Aspirin 81 mg 02/16/25 09:00 Aspirin 81 Mg Enteric Tablet PO QAM [facility] Atorvastatin Calcium 40 mg 02/16/25 09:00 Atorvastatin 40 Mg Tablet PO DAILY [facility] Clopidogrel Bisulfate 75 mg 02/16/25 09:00 Clopidogrel Bisulfate 75 Mg Tablet PO QAM [facility] Docusate Sodium 100 mg 02/16/25 09:00 Docusate Sodium 100 Mg Capsule PO Q12HR [facility] Famotidine 20 mg 02/16/25 09:00 Famotidine 20 Mg Tablet PO DAILY [facility] Finasteride 5 mg 02/16/25 09:00 Finasteride 5 Mg Tablet PO DAILY [facility] Folic Acid 1 mg 02/16/25 09:00 Folic Acid 1 Mg Tablet PO DAILY [facility] Levetiracetam 500 mg 02/16/25 09:00 Levetiracetam 500 Mg Tablet PO Q12HR [facility] Metoprolol Tartrate 50 mg 02/16/25 09:00 Metoprolol Tartrate 50 Mg Tab PO Q12HR [facility] Ondansetron HCl 4 mg 02/16/25 00:54 Ondansetron Inj 4 Mg/2 Ml Vial IV PUSH Q4H PRN Nausea Pantoprazole Sodium 40 mg 02/16/25 09:00 Pantoprazole 40 Mg Tablet PO DAILY [facility] Perflutren Lipid Microsphere 0 ml 02/16/25 00:54 Perflutren Lipid Microspheres 1.5 Ml Vial Diluted To 10 Ml Total Volume IV PUSH 02/19/25 00:57 ONCE PRN adequate visualization Protocol Tamsulosin HCl 0.4 mg 02/16/25 21:00 Tamsulosin Hcl 0.4 Mg Capsule PO HS [facility] Thiamine HCl 100 mg 02/16/25 09:00 Thiamine Hcl 100 Mg Tablet [facility] [place] Radiology Results: ITS Impressions Head/Neck CTA 02/16/25 07:35 IMPRESSION: 1. 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 2. Extensive nonspecific cerebral white matter disease, which likely represents chronic small vessel ischemic disease. 3. No aneurysm or significant intracranial arterial stenosis. 4. 0% stenosis of the proximal right internal carotid artery relative to normal distal artery lumen diameter (NASCET criteria). 5. 27% stenosis of the proximal left internal carotid artery relative to normal distal artery lumen diameter. Head CT 02/16/25 07:37 IMPRESSION: 1. No acute intracranial findings. Labs Labs: Laboratory Results - last 24 hr 02/15/25 02/16/25 02/16/25 23:36 00:17 00:32 WBC 11.6 H RBC 2.89 L Hgb 8.8 L Hct 28.7 L MCV 99.3 MCH 30.4 MCHC 30.7 L RDW 20.0 H Plt Count 436 H MPV 10.6 H Immature Gran % (Auto) 1.2 H Neut % (Auto) 62.8 Lymph % (Auto) 24.9 Foard % (Auto) 8.3 Eos % (Auto) 2.2 Baso % (Auto) 0.6 Lymph # (Auto) 2.89 Foard # (Auto) 1.0 H Eos # (Auto) 0.3 Baso # (Auto) 0.1 Abs Immat Gran (auto) 0.14 H Absolute Neuts (auto) 7.3 H Absolute Nucleated RBC 0.110 H Nucleated RBC % 0.9 H PT 13.2 INR 1.0 APTT 28.8 Sodium 136 L Potassium 4.2 Chloride 94 L Carbon Dioxide 29 Anion Gap 13 H BUN 23 H Creatinine 8.30 H Estim Creat Clear Calc 8 Estimated GFR 6 L Glucose 71 POC Capillary Glucose 88 Calcium 9.3 Magnesium 2.3 Total Bilirubin 0.5 AST 42 ALT 11 Alkaline Phosphatase 111 Total Protein 7.9 Albumin 4.2 Ethyl Alcohol 88 Quality VTE Prophylaxis VTE prophylaxis: mechanical ordered
[2025-02-16 09:13] LABS: Hematocrit 28.8 % (42.0-52.0); Hemoglobin 8.8 g/dL (14.0-18.0); Mean Corpuscular HGB Conc 30.6 g/dl (32-36); Mean Corpuscular Hemoglobin 30.9 pg (26-34); Mean Corpuscular Volume 101.1 fl (80-100); Platelet Count Result 402 k/mm3 (150-375); Red Blood Count 2.85 M/mm3 (4.6-6.20); White Blood Count 10.1 K/mm3 (4.5-10.0)
[2025-02-16] MEDS: CLOPIDOGREL BISULFATE 75 MG TABLET PO (09:33)
[2025-02-16] MEDS: ASPIRIN 81 MG ENTERIC TABLET PO (09:33)
[2025-02-16] MEDS: ATORVASTATIN 40 MG TABLET PO (09:33)
[2025-02-16] MEDS: THIAMINE HCL 100 MG TABLET PO (09:33)
[2025-02-16] MEDS: FINASTERIDE 5 MG TABLET PO (09:33)
[2025-02-16] MEDS: FOLIC ACID 1 MG TABLET PO (09:33)
[2025-02-16] MEDS: PANTOPRAZOLE 40 MG TABLET PO (09:33)
[2025-02-16] MEDS: FAMOTIDINE 20 MG TABLET PO (09:33)
[2025-02-16] MEDS: DOCUSATE SODIUM 100 MG CAPSULE PO ×2 (09:33→20:10)
[2025-02-16 09:37] LABS: Anion Gap 10 mmol/L (4-12); Blood Urea Nitrogen 30 mg/dL (9-20); Calcium 9.1 mg/dL (8.4-10.2); Carbon Dioxide 29 mmol/L (22-30); Chloride 97 mmol/L (98-107); Estimated CRCL calculation 7 ml/min; Estimated Glomerular Filt Rate 6; Glucose 98 mg/dL (65-110); Magnesium 2.3 mg/dL (1.6-2.3); Potassium 4.7 mmol/L (3.4-5.0); Sodium 136 mmol/L (137-145)
[2025-02-16] MEDS: HYDROcodone/acetaminophen (*CRX) 5-325 MG TABLET 1 TAB PO ×3 (09:41→23:18)
[2025-02-16 10:34] LABS: Hepatitis B Surface Antigen Negative (Negative)
[2025-02-16 10:54] LABS: Hepatitis B Surface Anti Res Positive
--- NOTE | 2025-02-16 11:15 | PC.NURSE ---
pt taken down for MRI
--- NOTE | 2025-02-16 12:47 | PC.NURSE ---
pt returned to room from MRI
--- NOTE | 2025-02-16 13:32 | PC.NURSE ---
pt taken to dialysis
--- NOTE | 2025-02-16 14:10 | PM.CNNEP ---
Assessment and Plan Assessment and plan (1) End stage renal disease: Code(s): N18.6 - End stage renal disease Status: Chronic Assessment and Plan: HD today due to holiday ( & ) dialysis schedule, plan HD on Wed//Wednesday follow electrolytes, volume status, and clearance outpatient dialysis clinic = [facility] primary back padder = Dr. Deluca (2) Lacunar infarct, acute: Code(s): I63.81 - Other cerebral infarction due to occlusion or stenosis of small artery Status: Acute Assessment and Plan: as noted by MRI of brain (on 02/16): acute lacunar infarction in the left external capsule extensive chronic microvascular ischemic appearing changes, and old lacunar infarctions in both basal ganglia regions and probably in the pontine portion of the brainstem as well known history of previous CVAs based on previous imaging extensive imaging to date noted: Head CT negative (this admission as well as last) Head/neck CTA noted: - chronic bilateral thalamic, basal ganglia, and internal capsule infarcts - extensive chronic small vessel ischemic white matter disease, without aneurysm or significant intracranial stenosis - carotid disease is minimal with?0% right ICA stenosis and 27% left ICA stenosis (NASCET) Brain MRI (12/20/24): - old lacunar infarcts at the bilateral thalami, basal ganglia and internal capsules - no acute intracranial process or abnormal enhancing brain lesions - extensive periventricular predominant nonspecific white matter T2 hyperintensity consistent with chronic small vessel ischemic disease on ASA/plavix/statin Neurology consulted (3) Seizure-like activity: Code(s): R56.9 - Unspecified convulsions Status: Acute Assessment and Plan: noted on hospital admission in November 2024 started on and remains on Keppra at that time (4) Anemia: Code(s): D64.9 - Anemia, unspecified Status: Chronic Assessment and Plan: due to ESRD Epogen with HD follow trend of H/H (5) Hypertension: Qualifiers: Hypertension type: secondary to other renal disorders Qualified Code(s): I15.1 - Hypertension secondary to other renal disorders Code(s): I10 - Essential (primary) hypertension Status: Chronic Assessment and Plan: resume home medications hydralazine PRN follow trend of hemodynamics - (6) Alcohol abuse: Code(s): F10.10 - Alcohol abuse, uncomplicated Status: Acute Assessment and Plan: known history admission alcohol level noted [facility] protocol on thiamine and folate I will continue to follow the patient with you while he remains hospitalized and make further recommendations as deemed necessary. Thank you for allowing me to participate in the care of this patient. History of Present Illness Reason for Consult Consult date: 02/16/25 Reason for consult: end stage renal disease Chief Complaint Chief complaint: left lower extremity weakness and GLASER, suspect suba History of Present Illness Narrative: The patient is a 69-year-old male with a past medical history as outlined below who presented to [facility] Emergency Room due to complaints of a severe headache. From review of ER and EMS documentation, the patient has had this headache for approximately 2 hours prior to his presentation to the ER. The headache was localized to his right frontal area and has been persistent And causing a significant amount of discomfort. On further questioning, the patient apparently had been drinking vodka as well as multiple beers throughout the day prior to the onset of this symptom. Aside from the headache, he has no other acute complaints with regard to fevers, chills, nausea, vomiting, chest pain, shortness of breath, palpitations, dizziness, or lightheadedness. He was noted to have some slurring of his speech on presentation to the ER but this was thought to be secondary to his previous alcohol use rather than a neurological symptom. Given the persistence of his headache without any significant relief, EMS was called and he was subsequently transported to the emergency room for further assessment. Workup and evaluation emergency room demonstrated the patient to be hemodynamically stable if not a bit hypertensive and otherwise afebrile and neurologically intact Although there were there was some questionable left lower extremity weakness. Routine blood work demonstrated white blood cell count 11.6, hemoglobin 8.8, hematocrit 28.7, platelet count 436, sodium 136, potassium 4.2, bicarb 29, BUN 23, creatinine 8.3, glucose 71, calcium 9.3, magnesium 2.3, albumin 4.2, normal LFTs, an alcohol level of 88. given his left lower extremity weakness as well as his previous history of CVAs, CT scans of his head was done and was negative for any acute pathology but a subsequent CTA of his head/neck old infarcts involving the bilateral full on my, basal ganglia, and internal capsules, extensive nonspecific cerebral white matter disease likely representing chronic small-vessel ischemic disease, no aneurysms or intracranial arterial stenosis, and 27% stenosis of the proximal left internal carotid artery with no evidence of stenosis in his proximal right internal carotid artery. On reassessment by the ER physician, his headache had somewhat improved with the use of Tylenol but it was felt that he would benefit from inpatient admission for further PT/ OT evaluations as well as in consultation with Neurology as well as a possible MRI of his brain to ensure no new neurological findings were present. Since his admission to hospital, he underwent an MRI of his brain which demonstrated an acute lacunar infarction in the left external capsule with extensive chronic microvascular ischemic appearing changes as well as is documented old lacunar infarcts in both basal ganglia regions and probably in the pontine portion of the brainstem as well. It should be noted the patient was just recently hospitalized and discharged from [facility] a few days ago For suspected seizure activity although once again, there was some concern that alcohol withdrawal may have been playing a role. He was continued on his Keppra during his hospital stay and was subsequently discharged on 02/13/2025 (admitted on 02/06/25). Renal consultation was requested due to his end-stage renal disease. The patient normally dialyzes on a Wednesday, Wednesday, Wednesday dialysis schedule at [facility] under the care of Dr. Ralf Deluca. His last dialysis treatment was on Wednesday02/14/25. As far as I am aware, his dialysis treatment on that day was otherwise uneventful. He reports that he has been compliant with his dialysis treatments since his recent hospital discharge although his known history of alcohol abuse can be an issue/problem at times. Currently, at the time my evaluation, he appears to be tolerating his dialysis treatment reasonably well (seen on HD at 2:00pm). Review of Systems Review of Systems: As per HPI. 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 difficile colitis 11/2024 Renal osteodystrophy Seizure after head injury Anemia in CKD (chronic kidney disease) ESRD on dialysis M/W/F with tunneled dialysis catheter in the right upper chest GERD (gastroesophageal reflux disease) Hypertension Surgical History Surgical History (Updated 02/16/25 @ 08:48 by Ruth Woods APRN) S/P dialysis catheter insertion Right upper chest No history of previous surgery Family History Family History Father Diabetes mellitus Mother Hypertension Social History Social History Social History: The patient's lives with his sister. The patient states that he has 2 sons. 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 He smokes every day and has smoked up to a pack of cigarettes a week since he was a teenager. He reports that he used to drink a pt every other day during the week and a pt every day on the weekend but has not drink any alcohol except for 1 beer on 02/05/2025. Code status: Full code Surrogate decision maker: Sister Smoking status: Current every day smoker Tobacco type: cigarettes Second hand tobacco smoke exposure: Yes Alcohol intake: current Drinks per week: 15 Substance use: never Substance use type: does not use Other substance usage details: drinks vodka/beer Lack of Transportation: No Lack of Food: Never True Current Housing: I Have Housing Concerned About Future Housing: No Difficulty Paying Gas/Electric Bills: No Difficulty Paying for Meds: No Currently Unemployed: No Education: Grade School Difficulty w/ Childcare or Family Care: No Spiritual care concerns: No Meds Home Medications and Allergies Home Medications ?Medication ?Instructions ?Recorded ?Confirmed ?Type acetaminophen 500 mg capsule 500 mg PO Q6H PRN pain 03/12/24 02/16/25 History amlodipine 10 mg tablet 10 mg PO DAILY 03/12/24 02/16/25 History famotidine 20 mg tablet 20 mg PO DAILY 03/12/24 02/16/25 History finasteride 5 mg tablet 5 mg PO DAILY 03/12/24 02/16/25 History pantoprazole 40 mg tablet,delayed 40 mg PO DAILY 03/12/24 02/16/25 History release tamsulosin 0.4 mg capsule 0.4 mg PO HS 03/12/24 02/16/25 History aspirin 81 mg tablet,delayed 81 mg PO QAM #30 tabs 12/26/24 02/16/25 Rx release atorvastatin 40 mg tablet 40 mg PO DAILY #30 tabs 12/26/24 02/16/25 Rx clopidogrel 75 mg tablet 75 mg PO QAM #30 tabs 12/26/24 02/16/25 Rx folic acid 1 mg tablet 1 mg PO DAILY #30 tabs 12/26/24 02/16/25 Rx levetiracetam 500 mg tablet 500 mg PO Q12HR #60 tabs 12/26/24 02/16/25 Rx (Keppra) metoprolol tartrate 50 mg tablet 50 mg PO Q12HR #60 tabs 12/26/24 02/16/25 Rx thiamine HCl (vitamin B1) 100 mg 100 mg PO QAM #30 tabs 12/26/24 02/16/25 Rx tablet (Vitamin B-1) hydrocodone 5 mg-acetaminophen 325 1 tablet PO Q6H PRN pain #20 tabs 01/06/25 02/16/25 Rx mg tablet Allergies Allergy/AdvReac Type Severity Reaction Status Date / Time [place] Inhibitors Allergy Severe Unknown Verified 02/16/25 03:07 lisinopril Allergy Intermediate Itching Verified 02/16/25 03:07 Vital Signs Vital Signs Temp Pulse Resp BP Pulse Ox O2 Del Method 02/16/25 14:00 93 189/51 H 02/16/25 13:45 96 161/94 H 02/16/25 13:42 98.0 F 81 18 201/113 H 98 02/16/25 13:30 92 199/128 H 02/16/25 12:40 86 02/16/25 10:57 155/68 H 02/16/25 09:30 Room Air 02/16/25 09:29 170/94 H 02/16/25 08:00 73 02/16/25 04:00 83 02/16/25 04:00 97.6 F 73 18 162/103 H 100 02/16/25 01:59 72 16 187/100 H 100 02/16/25 01:11 64 02/16/25 00:44 73 16 193/101 H 100 02/15/25 23:16 98.2 F 73 20 182/101 H 100 Room Air Exam Narrative: GENERAL APPEARANCE: elderly male in no acute distress HEENT: normocephalic, atraumatic, normal conjunctiva and sclera, nares patient NECK: no lymphadenopathy, thyromegaly, or JVD MOUTH: normal lips, teeth, and gums CARDIOVASCULAR: RRR, normal S1 and S2, no rub RESPIRATORY: clear to auscultation ABDOMEN: soft, nontender, nondistended, positive bowel sounds present EXTREMITIES: no evidence of cyanosis, clubbing, or edema; LUE cast in place NEUROLOGICAL: alert and oriented x 3; no focal deficits noted Results Lab Results 02/16/25 09:07 02/16/25 09:07 Lab results: Most recent lab results Calcium 9.1 mg/dL (8.4-10.2) 02/16/25 09:07 Phosphorus 4.1 mg/dL (2.5-4.5) 02/16/25 09:07 Magnesium 2.3 mg/dL (1.6-2.3) 02/16/25 09:07
--- NOTE | 2025-02-16 15:02 | PCPTNOTE ---
Attempted evaluation 1502, patient in dialysis. Will follow.
[2025-02-16] MEDS: ACETAMINOPHEN 325 MG TABLET 650 MG PO ×2 (15:25→20:14)
[2025-02-16] MEDS: EPOETIN ALFA-EPBX 10,000 UNITS/ML VIAL 10000 UNITS IV PUSH (16:42)
--- NOTE | 2025-02-16 17:13 | PC.NURSE ---
pt returned from dialysis to room
[2025-02-16] MEDS: TAMSULOSIN HCL 0.4 MG CAPSULE PO (20:10)
[2025-02-17] VITALS (11 sets, daily range): BP systolic 159–198; BP diastolic 91–100; PULSE 76–100; RESP 18; TEMP 36.4–37.2; O2SAT 97–100
[2025-02-17] MEDS: HYDROcodone/acetaminophen (*CRX) 5-325 MG TABLET 1 TAB PO ×3 (05:17→18:22)
[2025-02-17 07:56] LABS: Hematocrit 28.0 % (42.0-52.0); Hemoglobin 8.7 g/dL (14.0-18.0); Immature Granulocyte Percent A 0.9 % (0-0.5); Lymphocytes Absolute Auto 1.60 K/mm3 (0.9-3.2); Mean Corpuscular HGB Conc 31.1 g/dl (32-36); Mean Corpuscular Hemoglobin 31.0 pg (26-34); Mean Corpuscular Volume 99.6 fl (80-100); Nucleated Red Blood Cells Absolute Auto 0.170 K/mm3 (0.0-0.012); Nucleated Red Blood Cells Perc 1.0 % (0.0-0.2); Platelet Count Result 373 k/mm3 (150-375); Red Blood Count 2.81 M/mm3 (4.6-6.20); White Blood Count 16.8 K/mm3 (4.5-10.0)
[2025-02-17 08:07] LABS: Alanine Aminotransferase 9 U/L (6-50); Albumin Level 3.8 g/dL (3.5-5.1); Alkaline Phosphatase 117 U/L (38-126); Anion Gap 7 mmol/L (4-12); Aspartate Amino Transferase 31 U/L (17-59); Bilirubin,Total 0.4 mg/dL (0.2-1.3); Blood Urea Nitrogen 19 mg/dL (9-20); Calcium 8.9 mg/dL (8.4-10.2); Carbon Dioxide 29 mmol/L (22-30); Chloride 98 mmol/L (98-107); Estimated CRCL calculation 10 ml/min; Estimated Glomerular Filt Rate 9; Glucose 88 mg/dL (65-110); Potassium 4.2 mmol/L (3.4-5.0); Sodium 134 mmol/L (137-145); Total Protein 7.0 g/dL (6.3-8.2)
--- NOTE | 2025-02-17 08:45 | P.PNIM_ITS ---
Assessment and Plan Assessment and Plan (1) Lacunar infarct, acute: Code(s): I63.81 - Other cerebral infarction due to occlusion or stenosis of small artery Status: Acute Assessment and Plan: * Patient difficult to assess - ETOH was 88 * Arrived to the hospital with complaint of headache - although left lower extremity was weaker - stroke workup initiated * Moves all extremities without difficulty * Hx of multiple CVAs * head/neck CTA: shows?chronic bilateral thalamic, basal ganglia, and internal capsule infarcts with extensive chronic small vessel ischemic white matter disease, without aneurysm or significant intracranial stenosis; carotid disease is minimal with?0% right ICA stenosis and 27% left ICA stenosis (NASCET). * Brain MRI: Acute lacunar infarction in the left external capsule, extensive chronic microvascular ischemic appearing changes, old lacunar infarctions in both basal ganglia regions and probably in the pontine portion of the brainstem * Neurology consult pending * Continue DAPT with aspirin and clopidogrel (2) Left leg weakness: Code(s): R29.898 - Other symptoms and signs involving the musculoskeletal system Status: Acute Assessment and Plan: * See above (3) Seizure-like activity: Code(s): R56.9 - Unspecified convulsions Status: Acute Assessment and Plan: * continue with Keppra (4) ESRD on dialysis: Code(s): N18.6 - End stage renal disease; Z99.2 - Dependence on renal dialysis Status: Acute Assessment and Plan: * Dialysis M/W/F * PermCath to right upper chest * nephrology consulted * Monitor phosphorus and electrolytes (5) Hypertension: Qualifiers: Hypertension type: secondary to other renal disorders Qualified Code(s): I15.1 - Hypertension secondary to other renal disorders Code(s): I10 - Essential (primary) hypertension Status: Chronic Assessment and Plan: * continue with amlodipine and metoprolol. Hold metoprolol for heart rate less than 50. His blood pressure is elevated this morning 162/103 * p.r.n. hydralazine with parameters (6) Alcohol abuse: Code(s): F10.10 - Alcohol abuse, uncomplicated Status: Acute Assessment and Plan: * start CIWA * folic acid * thiamin * telemetry * p.r.n. librium * Alcohol level upon admission was 88 (7) BPH (benign prostatic hyperplasia): Code(s): N40.0 - Benign prostatic hyperplasia without lower urinary tract symptoms Status: Acute Assessment and Plan: * continue with finasteride Subjective Date/time seen: 02/17/25 08:45 Interval history: 69-year-old male patient who has had multiple CVA and is end-stage renal dialysis on Wednesday. He also has seizures and is on Keppra. He has a history of alcoholism as well. The patient came to the emergency room with complaint of right frontal headache that started 2 hours prior to coming to the emergency room. 02/16/2025 Patient sitting comfortably in bed at time of examination. Denies any chest pain, shortness of breath, nausea/vomiting, headaches/dizziness or abdominal pain. Neurology consult pending. Received dialysis yesterday - discussed with Dr. Caraballo who states that as patient is scheduled to undergo dialysis tomorrow (Wednesday) but the dialysis center will be closed, it will benefit the patient to keep him until he can undergo dialysis tomorrow. Likely will be discharged tomorrow after dialysis. Review of Systems Review of Systems: All systems reviewed & are unremarkable except as noted in HPI and below Constitutional: Constitutional: Reports as per HPI and Reports no additional constitutional complaints Eyes: Eyes: Reports as per HPI and Reports no additional eye complaints ENT: Reports system reviewed and no additional complaints, except as documente d and Reports Normal hearing present Cardiovascular: Cardiovascular: Reports no additional cardiovascular complaints Respiratory: Respiratory: Reports as per HPI and Reports no additional respiratory complaints Gastrointestinal: Gastrointestinal: Reports as per HPI and Reports no additional gastrointestinal complaints Musculoskeletal: Musculoskeletal: Reports no additional musculoskeletal complaints Integumentary/Breasts: Skin/Breast: Reports system reviewed and no additional complaints, except as docu Neurologic: Reports system reviewed and no additional complaints, except as documented and Reports Normal hearing present Psychiatric: Psychiatric: Reports no additional psychiatric complaints and Reports as per HPI Hematologic/Lymphatic: Hematologic/Lymphatic: Reports no additional hematologic/lymphatic complaints Allergic/Immunologic: Allergic/Immunologic: Reports no additional allergic/immunologic complaints Exam Const: General: cooperative, healthy appearing, comfortable, no acute distress, well developed and Physically active Orientation/consciousness: oriented to person, oriented to place, oriented to time and patient oriented x3 Other: The patient continued to fall asleep during my interview. The patient was grunting empty when I attempted to wake him up. HENMT: Head: normal to inspection, No palpable skull fracture present, normocephalic, atraumatic and abrasion Ears: hearing grossly normal bilaterally Eyes: General: appearance normal, both eyes and all related structures Alignment and Position: alignment normal Eyelids: eyelids normal Pupils: Equal, round and reactive pupils present EOM: EOMs intact bilaterally Other: Patient would not open his eyes long enough for me to check for pearla Neck: Neck: normal visual inspection and full ROM Chest: Chest palpation & inspection: normal inspection of the chest Resp: Effort & Inspection: normal respiratory effort Auscultation: clear to auscultation bilaterally Cardio: Palpation: normal PMI Rate: regular rate Rhythm: regular rhythm Heart sounds: S1 normal heart sound present and S2 normal heart sound present Peripheral pulses: Peripheral pulses 2+ throughout GI: Inspection: normal to inspection Auscultation: normal bowel sounds Rectal Exam: deferred : General: Yes no CVA tenderness Back/Spine/Pelvis: Back: no CVA tenderness Cervical Spine: cervical ROM normal Skin: General skin exam: normal color Lesions: no lesions Rashes: no rashes Trauma: no lacerations or abrasions Wounds: no wounds Neuro: General: oriented to person, oriented to place, oriented to time and patient oriented x3 Cranial nerves: Yes Equal, round and reactive pupils present and Yes Normal hearing present Cognition (Neuro): normal cognition Speech: normal speech Sensory Exam: normal sensation Other: He has generalized weakness with 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 The patient is moving all extremities. Patient has a cast to the left forearm and he has a wrap to the lower extremity where he has a ankle strain. Extrem: General: normal to inspection Right upper extremity: normal to inspection and shoulder/upper arm Left upper extremity: shoulder/upper arm Right lower extremity: normal to inspection Left lower extremity: normal to inspection Other: Cast intact to left forearm. Donovan wrap intact to left ankle. Tunneled catheter for dialysis PermCath is intact to right upper chest. Psych: Appearance: grossly normal Mental Status: mental status grossly normal Speech and movement: Normal speech and movement present Affect: normal affect Attitude: cooperative Thought process: Normal thought process present Insight: Good insight present (Psych) Judgement: Good judgement present (Psych) Objective Data Vital Signs Vital Signs: Vital Signs - 24 hr 02/16/25 09:29 02/16/25 09:30 02/16/25 10:57 Temperature Pulse Rate Respiratory Rate Blood Pressure 170/94 H 155/68 H Pulse Oximetry Oxygen Delivery Room Air 02/16/25 12:40 02/16/25 13:30 02/16/25 13:42 Temperature 98.0 F Pulse Rate 86 92 81 Respiratory Rate 18 Blood Pressure 199/128 H 201/113 H Pulse Oximetry 98 Oxygen Delivery 02/16/25 13:45 02/16/25 14:00 02/16/25 14:15 Temperature Pulse Rate 96 93 86 Respiratory Rate Blood Pressure 161/94 H 189/51 H 174/101 H Pulse Oximetry Oxygen Delivery 02/16/25 14:30 02/16/25 14:45 02/16/25 15:00 Temperature Pulse Rate 105 H 91 102 H Respiratory Rate Blood Pressure 191/122 H 201/123 H 186/89 H Pulse Oximetry Oxygen Delivery 02/16/25 15:15 02/16/25 15:30 02/16/25 15:45 Temperature Pulse Rate 102 H 86 91 Respiratory Rate Blood Pressure 186/89 H 175/115 H 200/111 H Pulse Oximetry Oxygen Delivery 02/16/25 16:00 02/16/25 16:00 02/16/25 16:15 Temperature Pulse Rate 107 H 106 H 99 Respiratory Rate Blood Pressure 201/123 H 200/120 H Pulse Oximetry Oxygen Delivery 02/16/25 16:30 02/16/25 16:47 02/16/25 16:52 Temperature 98.2 F Pulse Rate 101 H 91 103 H Respiratory Rate 18 Blood Pressure 206/117 H 212/123 H 215/134 H Pulse Oximetry 98 Oxygen Delivery 02/16/25 17:17 02/16/25 18:40 02/16/25 20:00 Temperature 98.0 F Pulse Rate 90 105 H Respiratory Rate 18 Blood Pressure 174/90 H 168/88 H Pulse Oximetry 100 Oxygen Delivery 02/16/25 20:06 02/16/25 21:58 02/17/25 00:00 Temperature 98.4 F Pulse Rate 72 85 Respiratory Rate 18 Blood Pressure 209/99 H 189/100 H Pulse Oximetry 97 Oxygen Delivery 02/17/25 04:00 02/17/25 05:58 Temperature 97.6 F Pulse Rate 99 Respiratory Rate 18 Blood Pressure 198/100 H 181/94 H Pulse Oximetry 97 Oxygen Delivery Intake/Output Intake/Output: Intake & Output 02/14/25 02/15/25 02/16/25 02/17/25 23:59 23:59 23:59 23:59 Intake Total 3060 120 Output Total 1000 Balance 2060 120 Meds/Results Medications: Active Medications Generic Name Dose Route Start Last Admin Trade Name Freq PRN Reason Stop Dose Admin Acetaminophen 650 mg 02/16/25 00:54 02/16/25 20:14 Acetaminophen 325 Mg Tablet PO 650 mg Q4H PRN Administration Mild Pain (1-3) or Fever Hydrocodone Bitart/Acetaminophen 1 tab 02/16/25 08:37 02/17/25 05:17 Hydrocodone/Acetaminophen (*Crx) 5-325 Mg Tablet PO 1 tab Q6H PRN Administration Pain 4-6 Amlodipine Besylate 10 mg 02/17/25 09:00 Amlodipine Besylate 10 Mg Tablet PO DAILY ANDER Aspirin 81 mg 02/16/25 09:00 02/16/25 09:33 Aspirin 81 Mg Enteric Tablet PO 81 mg QAM ANDER Administration Atorvastatin Calcium 40 mg 02/16/25 09:00 02/16/25 09:33 Atorvastatin 40 Mg Tablet PO 40 mg DAILY ANDER Administration Chlordiazepoxide HCl 25 mg 02/16/25 09:10 Chlordiazepoxide (*Crx) 25 Mg Capsule PO Q6H PRN Withdrawal Clopidogrel Bisulfate 75 mg 02/16/25 09:00 02/16/25 09:33 Clopidogrel Bisulfate 75 Mg Tablet PO 75 mg QAM ANDER Administration Docusate Sodium 100 mg 02/16/25 09:00 02/16/25 20:10 Docusate Sodium 100 Mg Capsule PO 100 mg Q12HR ANDER Administration Famotidine 20 mg 02/16/25 09:00 02/16/25 09:33 Famotidine 20 Mg Tablet PO 20 mg DAILY ANDER Administration Finasteride 5 mg 02/16/25 09:00 02/16/25 09:33 Finasteride 5 Mg Tablet PO 5 mg DAILY ANDER Administration Folic Acid 1 mg 02/16/25 09:00 02/16/25 09:33 Folic Acid 1 Mg Tablet PO 1 mg DAILY ANDER Administration Hydralazine HCl 10 mg 02/16/25 20:51 02/17/25 04:01 Hydralazine Hcl 20 Mg/Ml Vial IV PUSH 10 mg Q6HR PRN Administration Blood Pressure - High Albumin Human 50 mls @ 999 mls/hr 02/16/25 09:43 Albutein IVPB 03/18/25 09:42 Q10M PRN HYPOTENSION Levetiracetam 500 mg 02/16/25 09:00 02/16/25 20:10 Levetiracetam 500 Mg Tablet PO 500 mg Q12HR ANDER Administration Metoprolol Tartrate 50 mg 02/16/25 21:00 02/16/25 20:10 Metoprolol Tartrate 50 Mg Tab PO 50 mg Q12HR ANDER Administration Ondansetron HCl 4 mg 02/16/25 00:54 Ondansetron Inj 4 Mg/2 Ml Vial IV PUSH Q4H PRN Nausea Pantoprazole Sodium 40 mg 02/16/25 09:00 02/16/25 09:33 Pantoprazole 40 Mg Tablet PO 40 mg DAILY ANDER Administration Perflutren Lipid Microsphere 0 ml 02/16/25 00:54 Perflutren Lipid Microspheres 1.5 Ml Vial Diluted To 10 Ml Total Volume IV PUSH 02/19/25 00:57 ONCE PRN adequate visualization Protocol Tamsulosin HCl 0.4 mg 02/16/25 21:00 02/16/25 20:10 Tamsulosin Hcl 0.4 Mg Capsule PO 0.4 mg HS ANDER Administration Thiamine HCl 100 mg 02/16/25 09:00 02/16/25 09:33 Thiamine Hcl 100 Mg Tablet PO 100 mg QAM ANDER Administration Radiology Results: ITS Impressions Head/Neck CTA 02/16/25 07:35 IMPRESSION: 1. 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 2. Extensive nonspecific cerebral white matter disease, which likely represents chronic small vessel ischemic disease. 3. No aneurysm or significant intracranial arterial stenosis. 4. 0% stenosis of the proximal right internal carotid artery relative to normal distal artery lumen diameter (NASCET criteria). 5. 27% stenosis of the proximal left internal carotid artery relative to normal distal artery lumen diameter. Head CT 02/16/25 07:37 IMPRESSION: 1. No acute intracranial findings. Abdomen X-Ray 02/16/25 11:41 IMPRESSION: Patient is cleared for MRI. Brain MRI 02/16/25 12:22 IMPRESSION: 1. Acute lacunar infarction in the left external capsule. 2. Extensive chronic microvascular ischemic appearing changes, and old lacunar infarctions in both basal ganglia regions and probably in the pontine portion of the brainstem as well. Labs Labs: Laboratory Results - last 24 hr 02/16/25 02/17/25 09:07 07:50 WBC 10.1 H 16.8 H RBC 2.85 L 2.81 L Hgb 8.8 L 8.7 L Hct 28.8 L 28.0 L MCV 101.1 H 99.6 MCH 30.9 31.0 MCHC 30.6 L 31.1 L RDW 20.3 H 20.9 H Plt Count 402 H 373 MPV 9.9 9.8 Immature Gran % (Auto) 0.9 H Neut % (Auto) 81.4 H Lymph % (Auto) 9.5 L [place] % (Auto) 6.7 Eos % (Auto) 1.3 Baso % (Auto) 0.2 Lymph # (Auto) 1.60 [place] # (Auto) 1.1 H Eos # (Auto) 0.2 Baso # (Auto) 0.0 Abs Immat Gran (auto) 0.15 H Absolute Neuts (auto) 13.7 H Absolute Nucleated RBC 0.170 H Nucleated RBC % 1.0 H Sodium 136 L 134 L Potassium 4.7 4.2 Chloride 97 L 98 Carbon Dioxide 29 29 Anion Gap 10 7 BUN 30 H 19 D Creatinine 9.25 H 6.40 H Estim Creat Clear Calc 7 10 Estimated GFR 6 L 9 L Glucose 98 88 Lactic Acid 1.1 Calcium 9.1 8.9 Phosphorus 4.1 Magnesium 2.3 Total Bilirubin 0.4 AST 31 ALT 9 Alkaline Phosphatase 117 Total Protein 7.0 Albumin 3.8 Hep Bs Antigen Negative Hep Bs Antibody Positive Quality VTE Prophylaxis VTE prophylaxis: mechanical ordered
[2025-02-17] MEDS: FINASTERIDE 5 MG TABLET PO (08:48)
[2025-02-17] MEDS: DOCUSATE SODIUM 100 MG CAPSULE PO ×2 (08:48→20:35)
[2025-02-17] MEDS: FOLIC ACID 1 MG TABLET PO (08:48)
[2025-02-17] MEDS: THIAMINE HCL 100 MG TABLET PO (08:49)
[2025-02-17] MEDS: ASPIRIN 81 MG ENTERIC TABLET PO (08:49)
[2025-02-17] MEDS: PANTOPRAZOLE 40 MG TABLET PO (08:49)
[2025-02-17] MEDS: ATORVASTATIN 40 MG TABLET PO (08:53)
[2025-02-17] MEDS: METOPROLOL TARTRATE 50 MG TAB PO ×2 (08:53→20:35)
[2025-02-17] MEDS: CLOPIDOGREL BISULFATE 75 MG TABLET PO (08:53)
[2025-02-17] MEDS: FAMOTIDINE 20 MG TABLET PO (08:53)
--- NOTE | 2025-02-17 11:20 | P.PNNP_ITS ---
Progress Note: A&P Assessment and Plan (1) End stage renal disease: Code(s): N18.6 - End stage renal disease Status: Chronic Assessment and Plan: * HD tomorrow * volume status looks okay * potassium, CO2, and BUN are all okay. * outpatient dialysis clinic = [facility] * primary sas administrator = Dr. Deluca (2) Lacunar infarct, acute: Code(s): I63.81 - Other cerebral infarction due to occlusion or stenosis of small artery Status: Acute Assessment and Plan: * as noted by MRI of brain (on 02/16): * acute lacunar infarction in the left external capsule * extensive chronic microvascular ischemic appearing changes, and old lacunar infarctions in both basal ganglia regions and probably in the pontine portion of the brainstem as well * known history of previous CVAs based on previous imaging * extensive imaging to date noted: * Head CT negative (this admission as well as last) * Head/neck CTA noted: - chronic bilateral thalamic, basal ganglia, and internal capsule infarcts - extensive chronic small vessel ischemic white matter disease, without aneurysm or significant intracranial stenosis - carotid disease is minimal with?0% right ICA stenosis and 27% left ICA stenosis (NASCET) * Brain MRI (12/20/24): - old lacunar infarcts at the bilateral thalami, basal ganglia and internal capsules - no acute intracranial process or abnormal enhancing brain lesions - extensive periventricular predominant nonspecific white matter T2 hyperintensity consistent with chronic small vessel ischemic disease * Echocardiogram ordered * on ASA/plavix/statin * Neurology consulted (3) Seizure-like activity: Code(s): R56.9 - Unspecified convulsions Status: Acute Assessment and Plan: * noted on hospital admission in November 2024 * started on and remains on Keppra at that time (4) Anemia: Code(s): D64.9 - Anemia, unspecified Status: Chronic Assessment and Plan: * due to ESRD * Epogen with HD * follow trend of H/H (5) Hypertension: Qualifiers: Hypertension type: secondary to other renal disorders Qualified Code(s): I15.1 - Hypertension secondary to other renal disorders Code(s): I10 - Essential (primary) hypertension Status: Chronic Assessment and Plan: * resume home medications * hydralazine PRN * follow trend of hemodynamics - (6) Alcohol abuse: Code(s): F10.10 - Alcohol abuse, uncomplicated Status: Acute Assessment and Plan: * known history * admission alcohol level noted * [facility] protocol * on thiamine and folate Subjective Date/time seen: 02/17/25 11:20 Interval history: patient lying in bed. No shortness of breath or chest pain Review of Systems Cardiovascular: Cardiovascular: Reports no additional cardiovascular compla ints Respiratory: Respiratory: Reports no additional respiratory complaints Gastrointestinal: Gastrointestinal: Reports no additional gastrointestinal complaints Genitourinary: Genitourinary: Reports no additional male genitourinary compl aints Exam Narrative: WDWN in NAD skin no rash head ncat lungs clear cor reg no rub abd BS+ nontender and soft ext no edema. cast on arm Objective Data Vital Signs Vital Signs: Vital Signs - 24 hr 02/16/25 12:40 02/16/25 13:30 02/16/25 13:42 Temperature 98.0 F Pulse Rate 86 92 81 Respiratory Rate 18 Blood Pressure 199/128 H 201/113 H Pulse Oximetry 98 02/16/25 13:45 02/16/25 14:00 02/16/25 14:15 Temperature Pulse Rate 96 93 86 Respiratory Rate Blood Pressure 161/94 H 189/51 H 174/101 H Pulse Oximetry 02/16/25 14:30 02/16/25 14:45 02/16/25 15:00 Temperature Pulse Rate 105 H 91 102 H Respiratory Rate Blood Pressure 191/122 H 201/123 H 186/89 H Pulse Oximetry 02/16/25 15:15 02/16/25 15:30 02/16/25 15:45 Temperature Pulse Rate 102 H 86 91 Respiratory Rate Blood Pressure 186/89 H 175/115 H 200/111 H Pulse Oximetry 02/16/25 16:00 02/16/25 16:00 02/16/25 16:15 Temperature Pulse Rate 107 H 106 H 99 Respiratory Rate Blood Pressure 201/123 H 200/120 H Pulse Oximetry 02/16/25 16:30 02/16/25 16:47 02/16/25 16:52 Temperature 98.2 F Pulse Rate 101 H 91 103 H Respiratory Rate 18 Blood Pressure 206/117 H 212/123 H 215/134 H Pulse Oximetry 98 02/16/25 17:17 02/16/25 18:40 02/16/25 20:00 Temperature 98.0 F Pulse Rate 90 105 H Respiratory Rate 18 Blood Pressure 174/90 H 168/88 H Pulse Oximetry 100 02/16/25 20:06 02/16/25 21:58 02/17/25 00:00 Temperature 98.4 F Pulse Rate 72 85 Respiratory Rate 18 Blood Pressure 209/99 H 189/100 H Pulse Oximetry 97 02/17/25 04:00 02/17/25 05:58 02/17/25 08:53 Temperature 97.6 F Pulse Rate 99 98 Respiratory Rate 18 Blood Pressure 198/100 H 181/94 H Pulse Oximetry 97 Intake/Output Intake/Output: Intake & Output 02/14/25 02/15/25 02/16/25 02/17/25 23:59 23:59 23:59 23:59 Intake Total 3060 240 Output Total 1000 Balance 2060 240 Meds/Results Medications: Active Medications Generic Name Dose Route Start Last Admin Trade Name Freq PRN Reason Stop Dose Admin Acetaminophen 650 mg 02/16/25 00:54 02/16/25 20:14 Acetaminophen 325 Mg Tablet PO 650 mg Q4H PRN Administration Mild Pain (1-3) or Fever Hydrocodone Bitart/Acetaminophen 1 tab 02/16/25 08:37 02/17/25 05:17 Hydrocodone/Acetaminophen (*Crx) 5-325 Mg Tablet PO 1 tab Q6H PRN Administration Pain 4-6 Amlodipine Besylate 10 mg 02/17/25 09:00 02/17/25 08:49 Amlodipine Besylate 10 Mg Tablet PO 10 mg DAILY ANDER Administration Aspirin 81 mg 02/16/25 09:00 02/17/25 08:49 Aspirin 81 Mg Enteric Tablet PO 81 mg QAM ANDER Administration Atorvastatin Calcium 40 mg 02/16/25 09:00 02/17/25 08:53 Atorvastatin 40 Mg Tablet PO 40 mg DAILY ANDER Administration Chlordiazepoxide HCl 25 mg 02/16/25 09:10 Chlordiazepoxide (*Crx) 25 Mg Capsule PO Q6H PRN Withdrawal Clopidogrel Bisulfate 75 mg 02/16/25 09:00 02/17/25 08:53 Clopidogrel Bisulfate 75 Mg Tablet PO 75 mg QAM ANDER Administration Docusate Sodium 100 mg 02/16/25 09:00 02/17/25 08:48 Docusate Sodium 100 Mg Capsule PO 100 mg Q12HR ANDER Administration Famotidine 20 mg 02/16/25 09:00 02/17/25 08:53 Famotidine 20 Mg Tablet PO 20 mg DAILY ANDER Administration Finasteride 5 mg 02/16/25 09:00 02/17/25 08:48 Finasteride 5 Mg Tablet PO 5 mg DAILY ADNER Administration Folic Acid 1 mg 02/16/25 09:00 02/17/25 08:48 Folic Acid 1 Mg Tablet PO 1 mg DAILY ANDER Administration Hydralazine HCl 10 mg 02/16/25 20:51 02/17/25 04:01 Hydralazine Hcl 20 Mg/Ml Vial IV PUSH 10 mg Q6HR PRN Administration Blood Pressure - High Albumin Human 50 mls @ 999 mls/hr 02/16/25 09:43 Albutein IVPB 03/18/25 09:42 Q10M PRN HYPOTENSION Levetiracetam 500 mg 02/16/25 09:00 02/17/25 08:49 Levetiracetam 500 Mg Tablet PO 500 mg Q12HR ANDER Administration Metoprolol Tartrate 50 mg 02/16/25 21:00 02/17/25 08:53 Metoprolol Tartrate 50 Mg Tab PO 50 mg Q12HR ANDER Administration Ondansetron HCl 4 mg 02/16/25 00:54 Ondansetron Inj 4 Mg/2 Ml Vial IV PUSH Q4H PRN Nausea Pantoprazole Sodium 40 mg 02/16/25 09:00 02/17/25 08:49 Pantoprazole 40 Mg Tablet PO 40 mg DAILY ANDER Administration Perflutren Lipid Microsphere 0 ml 02/16/25 00:54 Perflutren Lipid Microspheres 1.5 Ml Vial Diluted To 10 Ml Total Volume IV PUSH 02/19/25 00:57 ONCE PRN adequate visualization Protocol Tamsulosin HCl 0.4 mg 02/16/25 21:00 02/16/25 20:10 Tamsulosin Hcl 0.4 Mg Capsule PO 0.4 mg HS ANDER Administration Thiamine HCl 100 mg 02/16/25 09:00 02/17/25 08:49 Thiamine Hcl 100 Mg Tablet PO 100 mg QAM ANDER Administration Radiology Results: ITS Impressions Head/Neck CTA 02/16/25 07:35 IMPRESSION: 1. 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 2. Extensive nonspecific cerebral white matter disease, which likely represents chronic small vessel ischemic disease. 3. No aneurysm or significant intracranial arterial stenosis. 4. 0% stenosis of the proximal right internal carotid artery relative to normal distal artery lumen diameter (NASCET criteria). 5. 27% stenosis of the proximal left internal carotid artery relative to normal distal artery lumen diameter. Head CT 02/16/25 07:37 IMPRESSION: 1. No acute intracranial findings. Abdomen X-Ray 02/16/25 11:41 IMPRESSION: Patient is cleared for MRI. Brain MRI 02/16/25 12:22 IMPRESSION: 1. Acute lacunar infarction in the left external capsule. 2. Extensive chronic microvascular ischemic appearing changes, and old lacunar infarctions in both basal ganglia regions and probably in the pontine portion of the brainstem as well. Labs Labs: Laboratory Results - last 24 hr 02/17/25 07:50 WBC 16.8 H RBC 2.81 L Hgb 8.7 L Hct 28.0 L MCV 99.6 MCH 31.0 MCHC 31.1 L RDW 20.9 H Plt Count 373 MPV 9.8 Immature Gran % (Auto) 0.9 H Neut % (Auto) 81.4 H Lymph % (Auto) 9.5 L [place] % (Auto) 6.7 Eos % (Auto) 1.3 Baso % (Auto) 0.2 Lymph # (Auto) 1.60 [place] # (Auto) 1.1 H Eos # (Auto) 0.2 Baso # (Auto) 0.0 Abs Immat Gran (auto) 0.15 H Absolute Neuts (auto) 13.7 H Absolute Nucleated RBC 0.170 H Nucleated RBC % 1.0 H Sodium 134 L Potassium 4.2 Chloride 98 Carbon Dioxide 29 Anion Gap 7 BUN 19 D Creatinine 6.40 H Estim Creat Clear Calc 10 Estimated GFR 9 L Glucose 88 Calcium 8.9 Total Bilirubin 0.4 AST 31 ALT 9 Alkaline Phosphatase 117 Total Protein 7.0 Albumin 3.8
--- NOTE | 2025-02-17 15:21 | WPDNEURCNPN ---
Assessment and Plan Assessment and plan (1) Lacunar infarct, acute: Code(s): I63.81 - Other cerebral infarction due to occlusion or stenosis of small artery Status: Acute (2) History of recent stroke: Code(s): Z86.73 - Personal history of transient ischemic attack (TIA), and cerebral infarction without residual deficits Status: Acute (3) End stage renal disease: Code(s): N18.6 - End stage renal disease Status: Chronic (4) Alcohol abuse: Code(s): F10.10 - Alcohol abuse, uncomplicated Status: Acute (5) Anemia: Code(s): D64.9 - Anemia, unspecified Status: Chronic (6) Metabolic acidosis: Code(s): E87.20 - Acidosis, unspecified Status: Resolved Plan 1. Lacunar stroke in the left external capsule 2. Extensive chronic microvascular ischemic changes documented by the MRI 3. Documented bilateral thalami and basal gangliar and internal capsular stroke with extensive cerebral white matter disease but no aneurysm or significant territory Ali stenosis except the 27% stenosis of proximal left internal carotid artery. 4. End-stage renal disease for which patient is on dialysis. 5. Hospitalization in the past as well for the seizure-like activity. 6. Hypertension 7. History of alcohol abuse. Plan as b Consult date: 02/17/25 HPI: Niesha Ceja is a 69 year old male Admitted to the hospital through the emergency room with complaint of right frontal headache of 2hours duration in addition to the history of 1. End-stage renal disease for which he is on dialysis Wednesday and Wednesday 2. Seizure disorder for which he is on Keppra 3. Alcohol abuse history 4. Previous stroke with documented previous infarcts on the MRI. On initial evaluation in the emergency room he was awake alert oriented x4 but speech was slurred. He reported that he has not missed any renal dialysis sessions. He was discharged from the hospital about 2 days ago when he was admitted for seizure-like activity and possibility of alcohol withdrawal. Patient has had previous CT scan, previous MRI, and CTA is, and at this particular time his medications included 1. amlodipine 10mg daily 2. Finasteride 5mg daily 3. Tamsulosin 0.4mg daily 4. Famotidine 20mg daily. He is reportedly allergic to Donovan inhibitors and lisinopril. In the past she has also been documented to have carotid stenosis of internal carotid artery, vertebral artery pseudoaneurysm, renal osteodystrophy, hypertension, GERD, and obviously end-stage renal disease. He is currently everyday smoker, currently everyday drinking 15 drinks per week, and on initial examination in the emergency room he was reportedly slurred speech probably intoxicated though he was able to answer the questions and his vital signs were with blood pressure 182/101 was afebrile. He was documented to have leukocytosis with hemoglobin 8.7 and platelet count of 373. MRI of the brain documented acute lacunar infarct in left external capsule along with extensive chronic microvascular ischemic changes and old lacunar infarct in the both basal ganglias. He has already been seen by cyber security follow-up. 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 difficile colitis 11/2024 Chronic alcoholism Seizure after head injury Anemia in CKD (chronic kidney disease) ESRD on dialysis M/W/F with tunneled dialysis catheter in the right upper chest GERD (gastroesophageal reflux disease) Hypertension Surgical History Surgical History S/P dialysis catheter insertion Right upper chest No history of previous surgery Family History Family History Father Diabetes mellitus Mother Hypertension Social History Social History Social History: The patient's lives with his sister. The patient states that he has 2 sons. 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 He smokes every day and has smoked up to a pack of cigarettes a week since he was a teenager. He reports that he used to drink a pt every other day during the week and a pt every day on the weekend but has not drink any alcohol except for 1 beer on 02/05/2025. Code status: Full code Surrogate decision maker: Sister Smoking status: Current every day smoker Tobacco type: cigarettes Second hand tobacco smoke exposure: Yes Alcohol intake: current Drinks per week: 15 Substance use: never Substance use type: does not use Other substance usage details: drinks vodka/beer Lack of Transportation: No Lack of Food: Never True Current Housing: I Have Housing Concerned About Future Housing: No Difficulty Paying Gas/Electric Bills: No Difficulty Paying for Meds: No Currently Unemployed: No Education: Grade School Difficulty w/ Childcare or Family Care: No Spiritual care concerns: No Meds Home Medications and Allergies Home Medications ?Medication ?Instructions ?Recorded ?Confirmed ?Type acetaminophen 500 mg capsule 500 mg PO Q6H PRN pain 03/12/24 02/16/25 History amlodipine 10 mg tablet 10 mg PO DAILY 03/12/24 02/16/25 History famotidine 20 mg tablet 20 mg PO DAILY 03/12/24 02/16/25 History finasteride 5 mg tablet 5 mg PO DAILY 03/12/24 02/16/25 History pantoprazole 40 mg tablet,delayed 40 mg PO DAILY 03/12/24 02/16/25 History release tamsulosin 0.4 mg capsule 0.4 mg PO HS 03/12/24 02/16/25 History aspirin 81 mg tablet,delayed 81 mg PO QAM #30 tabs 12/26/24 02/16/25 Rx release atorvastatin 40 mg tablet 40 mg PO DAILY #30 tabs 12/26/24 02/16/25 Rx clopidogrel 75 mg tablet 75 mg PO QAM #30 tabs 12/26/24 02/16/25 Rx folic acid 1 mg tablet 1 mg PO DAILY #30 tabs 12/26/24 02/16/25 Rx levetiracetam 500 mg tablet 500 mg PO Q12HR #60 tabs 12/26/24 02/16/25 Rx (Keppra) metoprolol tartrate 50 mg tablet 50 mg PO Q12HR #60 tabs 12/26/24 02/16/25 Rx thiamine HCl (vitamin B1) 100 mg 100 mg PO QAM #30 tabs 12/26/24 02/16/25 Rx tablet (Vitamin B-1) hydrocodone 5 mg-acetaminophen 325 1 tablet PO Q6H PRN pain #20 tabs 01/06/25 02/16/25 Rx mg tablet Allergies Allergy/AdvReac Type Severity Reaction Status Date / Time DONOVAN Inhibitors Allergy Severe Unknown Verified 02/16/25 03:07 lisinopril Allergy Intermediate Itching Verified 02/16/25 03:07 Vital Signs Vital Signs - 24 hr 02/16/25 15:30 02/16/25 15:45 02/16/25 16:00 Temperature Pulse Rate 86 91 107 H Respiratory Rate Blood Pressure 175/115 H 200/111 H 201/123 H Pulse Oximetry 02/16/25 16:00 02/16/25 16:15 02/16/25 16:30 Temperature Pulse Rate 106 H 99 101 H Respiratory Rate Blood Pressure 200/120 H 206/117 H Pulse Oximetry 02/16/25 16:47 02/16/25 16:52 02/16/25 17:17 Temperature 36.8 C 36.7 C Pulse Rate 91 103 H 90 Respiratory Rate 18 18 Blood Pressure 212/123 H 215/134 H 174/90 H Pulse Oximetry 98 100 02/16/25 18:40 02/16/25 20:00 02/16/25 20:06 Temperature 36.9 C Pulse Rate 105 H 72 Respiratory Rate 18 Blood Pressure 168/88 H 209/99 H Pulse Oximetry 97 02/16/25 21:58 02/17/25 00:00 02/17/25 04:00 Temperature 36.4 C Pulse Rate 85 99 Respiratory Rate 18 Blood Pressure 189/100 H 198/100 H Pulse Oximetry 97 02/17/25 05:58 02/17/25 08:53 02/17/25 14:00 Temperature 36.6 C Pulse Rate 98 89 Respiratory Rate 18 Blood Pressure 181/94 H 159/91 H Pulse Oximetry 100 Exam Narrative: Exam today revealed him to be awake alert cooperative in no obvious acute distress, his speech was not dysphasic not dysarthric and not dysphonic, head was normocephalic with no cranial bruits, neck was supple with no cervical bruit no thyromegaly no lymphadenopathy, heart was regular lungs were clear with no rhonchi or crepitations, abdomen was soft nontender with normal bowel sounds, neurologically he was awake alert oriented of being in the hospital with normal fluent speech without evidence of dysphagia dysarthria dysphonia, pupils round regular, is the vision full in all 4 quadrants, extraocular movements full with no nystagmus, facial sensation intact, face symmetrical, tongue in the oral cavity with no fasciculation, motor examination revealed him to have fairly symmetrical strength but somewhat decreased with sluggish reflexes downgoing plantar responses he had decreased sensation distally in both lower extremities and there was no evidence of gross cerebellar deficit. Results Labs 02/17/25 07:50 02/17/25 07:50 Labs: Short CBC 02/17/25 Range/Units 07:50 WBC 16.8 H (4.5-10.0) K/mm3 Hgb 8.7 L (14.0-18.0) g/dL Hct 28.0 L (42.0-52.0) % Plt Count 373 (150-375) k/mm3 BMP 02/17/25 07:50 Sodium 134 L Potassium 4.2 Chloride 98 Carbon Dioxide 29 BUN 19 D Creatinine 6.40 H Glucose 88 Calcium 8.9 Liver Function 02/17/25 Range/Units 07:50 Total Bilirubin 0.4 (0.2-1.3) mg/dL AST 31 (17-59) U/L ALT 9 (6-50) U/L Alkaline Phosphatase 117 (38-126) U/L Albumin 3.8 (3.5-5.1) g/dL
[2025-02-17] MEDS: TAMSULOSIN HCL 0.4 MG CAPSULE PO (20:35)
[2025-02-18] VITALS (24 sets, daily range): BP systolic 150–180; BP diastolic 67–101; PULSE 71–97; RESP 14–18; TEMP 35.6–37; O2SAT 99–100
[2025-02-18] MEDS: HYDROcodone/acetaminophen (*CRX) 5-325 MG TABLET 1 TAB PO ×3 (02:13→20:07)
[2025-02-18 05:48] LABS: Hematocrit 25.3 % (42.0-52.0); Hemoglobin 7.8 g/dL (14.0-18.0); Immature Granulocyte Percent A 0.7 % (0-0.5); Lymphocytes Absolute Auto 1.59 K/mm3 (0.9-3.2); Mean Corpuscular HGB Conc 30.8 g/dl (32-36); Mean Corpuscular Hemoglobin 30.8 pg (26-34); Mean Corpuscular Volume 100.0 fl (80-100); Nucleated Red Blood Cells Absolute Auto 0.060 K/mm3 (0.0-0.012); Nucleated Red Blood Cells Perc 0.5 % (0.0-0.2); Platelet Count Result 325 k/mm3 (150-375); Red Blood Count 2.53 M/mm3 (4.6-6.20); White Blood Count 12.0 K/mm3 (4.5-10.0)
[2025-02-18 06:16] LABS: Alanine Aminotransferase 8 U/L (6-50); Albumin Level 3.4 g/dL (3.5-5.1); Alkaline Phosphatase 107 U/L (38-126); Anion Gap 6 mmol/L (4-12); Aspartate Amino Transferase 19 U/L (17-59); Bilirubin,Total 0.4 mg/dL (0.2-1.3); Blood Urea Nitrogen 25 mg/dL (9-20); Calcium 8.9 mg/dL (8.4-10.2); Carbon Dioxide 28 mmol/L (22-30); Chloride 99 mmol/L (98-107); Estimated CRCL calculation 7 ml/min; Estimated Glomerular Filt Rate 6; Glucose 77 mg/dL (65-110); Potassium 4.2 mmol/L (3.4-5.0); Sodium 133 mmol/L (137-145); Total Protein 6.3 g/dL (6.3-8.2)
--- NOTE | 2025-02-18 10:50 | P.DS_ITS ---
DS: Admitting Diagnosis Discharge Date 02/18/2025 Admitting Diagnosis Lacunar Infarct DS: Discharge Diagnosis Discharge Diagnosis (1) Lacunar infarct, acute: Code(s): I63.81 - Other cerebral infarction due to occlusion or stenosis of small artery Status: Acute Assessment and Plan: * Patient difficult to assess - ETOH was 88 * Arrived to the hospital with complaint of headache - although left lower extremity was weaker - stroke workup initiated * Moves all extremities without difficulty * Hx of multiple CVAs * head/neck CTA: shows?chronic bilateral thalamic, basal ganglia, and internal capsule infarcts with extensive chronic small vessel ischemic white matter disease, without aneurysm or significant intracranial stenosis; carotid disease is minimal with?0% right ICA stenosis and 27% left ICA stenosis (NASCET). * Brain MRI: Acute lacunar infarction in the left external capsule, extensive chronic microvascular ischemic appearing changes, old lacunar infarctions in both basal ganglia regions and probably in the pontine portion of the brainstem * Neurology consult pending * Continue DAPT with aspirin and clopidogrel (2) Left leg weakness: Code(s): R29.898 - Other symptoms and signs involving the musculoskeletal system Status: Acute Assessment and Plan: * See above (3) Seizure-like activity: Code(s): R56.9 - Unspecified convulsions Status: Acute Assessment and Plan: * continue with Keppra (4) ESRD on dialysis: Code(s): N18.6 - End stage renal disease; Z99.2 - Dependence on renal dialysis Status: Acute Assessment and Plan: * Dialysis M/W/F * PermCath to right upper chest * nephrology consulted * Monitor phosphorus and electrolytes (5) Hypertension: Qualifiers: Hypertension type: secondary to other renal disorders Qualified Code(s): I15.1 - Hypertension secondary to other renal disorders Code(s): I10 - Essential (primary) hypertension Status: Chronic Assessment and Plan: * continue with amlodipine and metoprolol. Hold metoprolol for heart rate less than 50. His blood pressure is elevated this morning 162/103 * p.r.n. hydralazine with parameters (6) Alcohol abuse: Code(s): F10.10 - Alcohol abuse, uncomplicated Status: Acute Assessment and Plan: * start CIWA * folic acid * thiamin * telemetry * p.r.n. librium * Alcohol level upon admission was 88 (7) BPH (benign prostatic hyperplasia): Code(s): N40.0 - Benign prostatic hyperplasia without lower urinary tract symptoms Status: Acute Assessment and Plan: * continue with finasteride DS: Summary Hospital Course Reason for hospitalization: Headache Hospital Course: This is a 69-year-old male with a history of multiple prior CVAs, ESRD on hemodialysis (MWF via right chest PermCath), seizure disorder on levetiracetam, chronic alcohol abuse, hypertension, anemia of CKD, and tobacco use who presented on 02/16/2025 with a 2-hour history of right frontal headache. Initial evaluation was notable for markedly elevated blood pressures and difficulty with examination due to somnolence and alcohol intoxication (ethanol level 88). CT head was negative for acute intracranial pathology, and CTA head/neck demonstrated chronic bilateral thalamic, basal ganglia, and internal capsule infarcts with extensive chronic small vessel ischemic disease and no significant intracranial stenosis; carotid disease was minimal (0% right ICA, 27% left ICA). MRI brain revealed an acute lacunar infarct in the left external capsule with extensive chronic microvascular ischemic changes and old lacunar infarcts. Neurology was consulted, and the patient was continued on dual antiplatelet therapy with aspirin and clopidogrel as well as statin therapy. No large-vessel or cardioembolic source was identified, and echocardiogram was ordered. His transient left lower extremity weakness improved, and he was noted to move all extremities without focal deficits on subsequent examinations. Seizure disorder remained stable on home Keppra without recurrent events. ESRD was managed in coordination with nephrology; electrolytes and volume status remained stable, and he underwent scheduled hemodialysis during hospitalization with plans to complete dialysis prior to discharge due to outpatient center closure. Hypertension remained labile and significantly elevated, managed with continuation of home amlodipine and metoprolol and PRN IV hydralazine with gradual improvement. Anemia was consistent with chronic disease from ESRD and managed with Epogen during dialysis, with stable hemoglobin levels. Given recent alcohol use and prior withdrawal, CIWA protocol was initiated with thiamine and folic acid, without progression to severe withdrawal. Overall, the patient remained hemodynamically stable, neurologically improved, and was anticipated for discharge following completion of dialysis and neurology recommendations. Status at Discharge Functional status at discharge: uses cane/walker Overall status at discharge: patient is back to baseline Time Spent with Patient Time attestation: Total time spent providing and/or coordinating discharge services: 30 Exam Const: General: cooperative, healthy appearing, comfortable, no acute distress, well developed and Physically active Orientation/consciousness: oriented to person, oriented to place, oriented to time and patient oriented x3 HENMT: Head: normal to inspection, No palpable skull fracture present, normocephalic, atraumatic and abrasion Ears: hearing grossly normal bilaterally Eyes: General: appearance normal, both eyes and all related structures Alignment and Position: alignment normal Eyelids: eyelids normal Pupils: Equal, round and reactive pupils present EOM: EOMs intact bilaterally Neck: Neck: normal visual inspection and full ROM Chest: Chest palpation & inspection: normal inspection of the chest Resp: Effort & Inspection: normal respiratory effort Auscultation: clear to auscultation bilaterally Cardio: Palpation: normal PMI Rate: regular rate Rhythm: regular rhythm Heart sounds: S1 normal heart sound present and S2 normal heart sound present Peripheral pulses: Peripheral pulses 2+ throughout GI: Inspection: normal to inspection Auscultation: normal bowel sounds Rectal Exam: deferred : General: Yes no CVA tenderness Back/Spine/Pelvis: Back: no CVA tenderness Cervical Spine: cervical ROM normal Skin: General skin exam: normal color Lesions: no lesions Rashes: no rashes Trauma: no lacerations or abrasions Wounds: no wounds Neuro: General: oriented to person, oriented to place, oriented to time and patient oriented x3 Cranial nerves: Yes Equal, round and reactive pupils present and Yes Normal hearing present Cognition (Neuro): normal cognition Speech: normal speech Sensory Exam: normal sensation Other: The patient is moving all extremities. Patient has a cast to the left forearm and he has a wrap to the lower extremity where he has a ankle strain. Extrem: General: normal to inspection Right upper extremity: normal to inspection and shoulder/upper arm Left upper extremity: shoulder/upper arm Right lower extremity: normal to inspection Left lower extremity: normal to inspection Other: Cast intact to left forearm. Donovan wrap intact to left ankle. Tunneled catheter for dialysis PermCath is intact to right upper chest. Psych: Appearance: grossly normal Mental Status: mental status grossly normal Speech and movement: Normal speech and movement present Affect: normal affect Attitude: cooperative Thought process: Normal thought process present Insight: Good insight present (Psych) Judgement: Good judgement present (Psych) DS: Data Data Completed and Pending Labs on day of discharge: Labs from last 24 hours 02/18/25 05:33 WBC 12.0 H RBC 2.53 L Hgb 7.8 L Hct 25.3 L MCV 100.0 MCH 30.8 MCHC 30.8 L RDW 20.3 H Plt Count 325 MPV 10.2 Immature Gran % (Auto) 0.7 H Neut % (Auto) 75.1 H Lymph % (Auto) 13.3 L [place] % (Auto) 7.2 Eos % (Auto) 3.1 Baso % (Auto) 0.6 Lymph # (Auto) 1.59 [place] # (Auto) 0.9 H Eos # (Auto) 0.4 H Baso # (Auto) 0.1 Abs Immat Gran (auto) 0.08 H Absolute Neuts (auto) 9.0 H Absolute Nucleated RBC 0.060 H Nucleated RBC % 0.5 H Sodium 133 L Potassium 4.2 Chloride 99 Carbon Dioxide 28 Anion Gap 6 BUN 25 H Creatinine 8.92 H Estim Creat Clear Calc 7 Estimated GFR 6 L Glucose 77 Calcium 8.9 Phosphorus 4.0 Total Bilirubin 0.4 AST 19 ALT 8 Alkaline Phosphatase 107 Total Protein 6.3 Albumin 3.4 L Discharge Plan Discharge Attending physician on discharge: Jerry Varela Consulting providers: Toño Whiting; Omar Arguello; Robel Otero Discharging Clinician: Toño Whiting Anticipated Discharge Date/Time: 02/18/25 10:47 Patient Disposition: Home with Home Health Service Activity: as tolerated Diet: regular Discharge Instructions: Per Care Coordination, patient to discharge with [facility] ([phone]) for PT/OT and half-way. Agency will call to arrange resumption of services. Discharge disposition: Home with home health therapy Take medications as prescribed Monitor blood pressures Take caution while standing, rising, or moving Change positions slowly taking a break between each position change If you standing feel dizzy sit back down and take a break Strict bleeding precautions since you are being started on Plavix including s having with an electric razor, holding pressure for greater than 20 minutes for injury, protection of had with any falls, etc. Follow-up with neurology in 6-8 weeks Encouraged to continue with yearly vaccinations Return to the emergency department if you develop sudden shortness of breath, chest pain, nausea, vomiting, upset stomach or intractable diarrhea Return to the emergency department if you develop fever greater than 101.5 Follow-up with the primary care physician within 1-2 weeks Thank you for choosing [facility] for your healthcare needs Patient Instructions: Antibiotic Form, Rivaroxaban (By mouth), Ischemic Stroke (DC) Patient Language: Telugu Stand Alone Forms: General Discharge Information Follow-up/Referrals: JimboAmanda MD [Other] Robel Otero MD [Physician, Neurology] Discharge Medications: Continued amlodipine 10 mg tablet 10 mg PO DAILY famotidine 20 mg tablet 20 mg PO DAILY tamsulosin 0.4 mg capsule 0.4 mg PO HS pantoprazole 40 mg tablet,delayed release (DR/EC) 40 mg PO DAILY finasteride 5 mg tablet 5 mg PO DAILY acetaminophen 500 mg capsule 500 mg PO Q6H PRN (Reason: pain) hydrocodone-acetaminophen 5-325 mg tablet 1 tablet PO Q6H PRN (Reason: pain) Qty: 20 0RF atorvastatin 40 mg Tablet 40 mg PO DAILY Qty: 30 2RF clopidogrel 75 mg Tablet 75 mg PO QAM Qty: 30 2RF aspirin 81 mg Tablet,Delayed Release (Dr/Ec) 81 mg PO QAM Qty: 30 2RF levetiracetam [Keppra] 500 mg Tablet 500 mg PO Q12HR Qty: 60 2RF folic acid 1 mg Tablet 1 mg PO DAILY Qty: 30 2RF thiamine HCl (vitamin B1) [Vitamin B-1] 100 mg Tablet 100 mg PO QAM Qty: 30 2RF metoprolol tartrate 50 mg Tablet 50 mg PO Q12HR Qty: 60 2RF Date of admission: 02/16/25 00:55 Primary Care Provider: JimboAmanda MD Admitting Provider: García Madden Attending physician on admission: García Madden Condition: Stable Quality VTE Prophylaxis VTE prophylaxis: mechanical ordered
[2025-02-18] MEDS: PANTOPRAZOLE 40 MG TABLET PO (11:41)
[2025-02-18] MEDS: CLOPIDOGREL BISULFATE 75 MG TABLET PO (11:41)
[2025-02-18] MEDS: METOPROLOL TARTRATE 50 MG TAB PO (11:41)
[2025-02-18] MEDS: DOCUSATE SODIUM 100 MG CAPSULE PO ×2 (11:41→20:07)
[2025-02-18] MEDS: THIAMINE HCL 100 MG TABLET PO (11:42)
[2025-02-18] MEDS: FOLIC ACID 1 MG TABLET PO (11:42)
[2025-02-18] MEDS: ASPIRIN 81 MG ENTERIC TABLET PO (11:42)
[2025-02-18] MEDS: FAMOTIDINE 20 MG TABLET PO (11:42)
[2025-02-18] MEDS: FINASTERIDE 5 MG TABLET PO (11:42)
[2025-02-18] MEDS: ATORVASTATIN 40 MG TABLET PO (11:43)
--- NOTE | 2025-02-18 12:00 | P.PNNP_ITS ---
Progress Note: A&P Assessment and Plan (1) End stage renal disease: Code(s): N18.6 - End stage renal disease Status: Chronic Assessment and Plan: * HD underway * volume status looks okay . Giving some fluid. * potassium, CO2, and BUN are all okay. * outpatient dialysis clinic = [facility] * primary cardiovascular technician = Dr. Deluca * okay for discharge when others are ready (2) Lacunar infarct, acute: Code(s): I63.81 - Other cerebral infarction due to occlusion or stenosis of small artery Status: Acute Assessment and Plan: * as noted by MRI of brain (on 02/16): * acute lacunar infarction in the left external capsule * extensive chronic microvascular ischemic appearing changes, and old lacunar infarctions in both basal ganglia regions and probably in the pontine portion of the brainstem as well * known history of previous CVAs based on previous imaging * extensive imaging to date noted: * Head CT negative (this admission as well as last) * Head/neck CTA noted: - chronic bilateral thalamic, basal ganglia, and internal capsule infarcts - extensive chronic small vessel ischemic white matter disease, without aneurysm or significant intracranial stenosis - carotid disease is minimal with?0% right ICA stenosis and 27% left ICA stenosis (NASCET) * Brain MRI (12/20/24): - old lacunar infarcts at the bilateral thalami, basal ganglia and internal capsules - no acute intracranial process or abnormal enhancing brain lesions - extensive periventricular predominant nonspecific white matter T2 hyperintensity consistent with chronic small vessel ischemic disease * Echocardiogram ordered * on ASA/plavix/statin * Neurology consulted (3) Seizure-like activity: Code(s): R56.9 - Unspecified convulsions Status: Acute Assessment and Plan: * noted on hospital admission in November 2024 * started on and remains on Keppra at that time (4) Anemia: Code(s): D64.9 - Anemia, unspecified Status: Chronic Assessment and Plan: * due to ESRD * Epogen with HD * Hemoglobin up and down in the sevens and 8. (5) Hypertension: Qualifiers: Hypertension type: secondary to other renal disorders Qualified Code(s): I15.1 - Hypertension secondary to other renal disorders Code(s): I10 - Essential (primary) hypertension Status: Chronic Assessment and Plan: * resumed home medications * On amlodipine 10, and metoprolol 50. * Pulse is 80. * He is allergic to Donovan inhibitors. * Will increase metoprolol to 100 * hydralazine PRN * follow trend of hemodynamics - (6) Alcohol abuse: Code(s): F10.10 - Alcohol abuse, uncomplicated Status: Acute Assessment and Plan: * known history * admission alcohol level noted * [facility] protocol * on thiamine and folate Subjective Date/time seen: 02/18/25 12:00 Interval history: Patient feels okay. No chest pain or shortness of breath on dialysis and tolerating it well. We are removing some fluid. Blood pressure is doing well. He was seen at 9:40 a.m. Exam Narrative: WDWN in NAD skin no rash head ncat lungs clear bilaterally cor reg no rub or gallop abd BS+ nontender and soft ext no edema. cast on arm Objective Data Vital Signs Vital Signs: Vital Signs - 24 hr 02/17/25 14:00 02/17/25 14:30 02/17/25 16:00 Temperature 97.9 F Pulse Rate 89 76 Respiratory Rate 18 Blood Pressure 159/91 H Pulse Oximetry 100 Oxygen Delivery Room Air 02/17/25 20:30 02/17/25 20:35 02/17/25 22:00 Temperature 99.0 F Pulse Rate 88 100 92 Respiratory Rate 18 Blood Pressure 169/94 H Pulse Oximetry 100 Oxygen Delivery 02/18/25 00:00 02/18/25 04:00 02/18/25 06:00 Temperature 98.4 F Pulse Rate 82 81 75 Respiratory Rate 18 Blood Pressure 166/94 H Pulse Oximetry 99 Oxygen Delivery 02/18/25 07:20 02/18/25 07:28 02/18/25 07:45 Temperature 98.2 F Pulse Rate 78 71 97 Respiratory Rate 16 Blood Pressure 165/94 H 173/71 H 171/77 H Pulse Oximetry 100 Oxygen Delivery 02/18/25 08:00 02/18/25 08:15 02/18/25 08:30 Temperature Pulse Rate 71 81 75 Respiratory Rate Blood Pressure 157/67 H 168/100 H 180/92 H Pulse Oximetry Oxygen Delivery 02/18/25 08:45 02/18/25 09:00 02/18/25 09:15 Temperature Pulse Rate 71 75 72 Respiratory Rate Blood Pressure 161/91 H 151/92 H 174/92 H Pulse Oximetry Oxygen Delivery 02/18/25 09:30 02/18/25 09:45 02/18/25 10:00 Temperature Pulse Rate 82 83 77 Respiratory Rate Blood Pressure 159/90 H 180/89 H 174/90 H Pulse Oximetry Oxygen Delivery 02/18/25 10:15 02/18/25 10:30 02/18/25 10:45 Temperature Pulse Rate 96 88 78 Respiratory Rate Blood Pressure 168/100 H 165/93 H 161/92 H Pulse Oximetry Oxygen Delivery 02/18/25 11:01 02/18/25 11:17 02/18/25 11:41 Temperature 98.1 F Pulse Rate 88 81 80 Respiratory Rate 16 Blood Pressure 173/101 H 174/91 H Pulse Oximetry 100 Oxygen Delivery Intake/Output Intake/Output: Intake & Output 02/15/25 02/16/25 02/17/25 02/18/25 23:59 23:59 23:59 23:59 Intake Total 3060 840 Output Total 1000 1999 Balance 2060 840 -2000 Meds/Results Medications: Active Medications Generic Name Dose Route Start Last Admin Trade Name Freq PRN Reason Stop Dose Admin Acetaminophen 650 mg 02/16/25 00:54 02/16/25 20:14 Acetaminophen 325 Mg Tablet PO 650 mg Q4H PRN Administration Mild Pain (1-3) or Fever Hydrocodone Bitart/Acetaminophen 1 tab 02/16/25 08:37 02/18/25 11:42 Hydrocodone/Acetaminophen (*Crx) 5-325 Mg Tablet PO 1 tab Q6H PRN Administration Pain 4-6 Amlodipine Besylate 10 mg 02/17/25 09:00 02/18/25 11:42 Amlodipine Besylate 10 Mg Tablet PO 10 mg DAILY ANDER Administration Aspirin 81 mg 02/16/25 09:00 02/18/25 11:42 Aspirin 81 Mg Enteric Tablet PO 81 mg QAM ANDER Administration Atorvastatin Calcium 40 mg 02/16/25 09:00 02/18/25 11:43 Atorvastatin 40 Mg Tablet PO 40 mg DAILY ANDER Administration Chlordiazepoxide HCl 25 mg 02/16/25 09:10 Chlordiazepoxide (*Crx) 25 Mg Capsule PO Q6H PRN Withdrawal Clopidogrel Bisulfate 75 mg 02/16/25 09:00 02/18/25 11:41 Clopidogrel Bisulfate 75 Mg Tablet PO 75 mg QAM ANDER Administration Docusate Sodium 100 mg 02/16/25 09:00 02/18/25 11:41 Docusate Sodium 100 Mg Capsule PO 100 mg Q12HR ANDER Administration Famotidine 20 mg 02/16/25 09:00 02/18/25 11:42 Famotidine 20 Mg Tablet PO 20 mg DAILY ANDER Administration Finasteride 5 mg 02/16/25 09:00 02/18/25 11:42 Finasteride 5 Mg Tablet PO 5 mg DAILY ANDER Administration Folic Acid 1 mg 02/16/25 09:00 02/18/25 11:42 Folic Acid 1 Mg Tablet PO 1 mg DAILY ANDER Administration Hydralazine HCl 10 mg 02/16/25 20:51 02/17/25 22:48 Hydralazine Hcl 20 Mg/Ml Vial IV PUSH 10 mg Q6HR PRN Administration Blood Pressure - High Albumin Human 50 mls @ 999 mls/hr 02/16/25 09:43 Albutein IVPB 03/18/25 09:42 Q10M PRN HYPOTENSION Levetiracetam 500 mg 02/16/25 09:00 02/18/25 11:41 Levetiracetam 500 Mg Tablet PO 500 mg Q12HR ANDER Administration Metoprolol Tartrate 50 mg 02/16/25 21:00 02/18/25 11:41 Metoprolol Tartrate 50 Mg Tab PO 50 mg Q12HR ANDER Administration Ondansetron HCl 4 mg 02/16/25 00:54 Ondansetron Inj 4 Mg/2 Ml Vial IV PUSH Q4H PRN Nausea Pantoprazole Sodium 40 mg 02/16/25 09:00 02/18/25 11:41 Pantoprazole 40 Mg Tablet PO 40 mg DAILY ANDER Administration Perflutren Lipid Microsphere 0 ml 02/16/25 00:54 Perflutren Lipid Microspheres 1.5 Ml Vial Diluted To 10 Ml Total Volume IV PUSH 02/19/25 00:57 ONCE PRN adequate visualization Protocol Tamsulosin HCl 0.4 mg 02/16/25 21:00 02/17/25 20:35 Tamsulosin Hcl 0.4 Mg Capsule PO 0.4 mg HS ANDER Administration Thiamine HCl 100 mg 02/16/25 09:00 02/18/25 11:42 Thiamine Hcl 100 Mg Tablet PO 100 mg QAM ANDER Administration Radiology Results: ITS Impressions Head/Neck CTA 02/16/25 07:35 IMPRESSION: 1. 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 2. Extensive nonspecific cerebral white matter disease, which likely represents chronic small vessel ischemic disease. 3. No aneurysm or significant intracranial arterial stenosis. 4. 0% stenosis of the proximal right internal carotid artery relative to normal distal artery lumen diameter (NASCET criteria). 5. 27% stenosis of the proximal left internal carotid artery relative to normal distal artery lumen diameter. Head CT 02/16/25 07:37 IMPRESSION: 1. No acute intracranial findings. Abdomen X-Ray 02/16/25 11:41 IMPRESSION: Patient is cleared for MRI. Brain MRI 02/16/25 12:22 IMPRESSION: 1. Acute lacunar infarction in the left external capsule. 2. Extensive chronic microvascular ischemic appearing changes, and old lacunar infarctions in both basal ganglia regions and probably in the pontine portion of the brainstem as well. Labs Labs: Laboratory Results - last 24 hr 02/18/25 05:33 WBC 12.0 H RBC 2.53 L Hgb 7.8 L Hct 25.3 L MCV 100.0 MCH 30.8 MCHC 30.8 L RDW 20.3 H Plt Count 325 MPV 10.2 Immature Gran % (Auto) 0.7 H Neut % (Auto) 75.1 H Lymph % (Auto) 13.3 L [place] % (Auto) 7.2 Eos % (Auto) 3.1 Baso % (Auto) 0.6 Lymph # (Auto) 1.59 [place] # (Auto) 0.9 H Eos # (Auto) 0.4 H Baso # (Auto) 0.1 Abs Immat Gran (auto) 0.08 H Absolute Neuts (auto) 9.0 H Absolute Nucleated RBC 0.060 H Nucleated RBC % 0.5 H Sodium 133 L Potassium 4.2 Chloride 99 Carbon Dioxide 28 Anion Gap 6 BUN 25 H Creatinine 8.92 H Estim Creat Clear Calc 7 Estimated GFR 6 L Glucose 77 Calcium 8.9 Phosphorus 4.0 Total Bilirubin 0.4 AST 19 ALT 8 Alkaline Phosphatase 107 Total Protein 6.3 Albumin 3.4 L
--- NOTE | 2025-02-18 13:48 | PC.NURSE ---
Unable to reach patient family members r/t discharge. Intercept message being played when dialing nephew and sister's listed phone numbers. Unable to verify patient will be discharged safely, cancelling for today. Message left with [place] and spoke with AIME Hilario.
[2025-02-18] MEDS: METOPROLOL TARTRATE 50 MG TAB 100 MG PO (20:08)
[2025-02-18] MEDS: TAMSULOSIN HCL 0.4 MG CAPSULE PO (21:00)
[2025-02-19 05:04] VITALS: BP 164/82; PULSE 70; RESP 16; TEMP 36.5; O2SAT 100
[2025-02-19 05:50] LABS: Hematocrit 27.1 % (42.0-52.0); Hemoglobin 8.5 g/dL (14.0-18.0); Immature Granulocyte Percent A 0.4 % (0-0.5); Lymphocytes Absolute Auto 1.44 K/mm3 (0.9-3.2); Mean Corpuscular HGB Conc 31.4 g/dl (32-36); Mean Corpuscular Hemoglobin 31.1 pg (26-34); Mean Corpuscular Volume 99.3 fl (80-100); Nucleated Red Blood Cells Absolute Auto 0.030 K/mm3 (0.0-0.012); Nucleated Red Blood Cells Perc 0.3 % (0.0-0.2); Platelet Count Result 319 k/mm3 (150-375); Red Blood Count 2.73 M/mm3 (4.6-6.20); White Blood Count 9.3 K/mm3 (4.5-10.0)
[2025-02-19 06:22] LABS: Alanine Aminotransferase 8 U/L (6-50); Albumin Level 3.6 g/dL (3.5-5.1); Alkaline Phosphatase 117 U/L (38-126); Anion Gap 9 mmol/L (4-12); Aspartate Amino Transferase 22 U/L (17-59); Bilirubin,Total 0.4 mg/dL (0.2-1.3); Blood Urea Nitrogen 15 mg/dL (9-20); Calcium 8.7 mg/dL (8.4-10.2); Carbon Dioxide 27 mmol/L (22-30); Chloride 98 mmol/L (98-107); Estimated CRCL calculation 9 ml/min; Estimated Glomerular Filt Rate 8; Glucose 81 mg/dL (65-110); Potassium 3.8 mmol/L (3.4-5.0); Sodium 134 mmol/L (137-145); Total Protein 6.7 g/dL (6.3-8.2)
[2025-02-19] MEDS: THIAMINE HCL 100 MG TABLET PO (08:39)
[2025-02-19 08:40] VITALS: PULSE 80
[2025-02-19] MEDS: METOPROLOL TARTRATE 50 MG TAB 100 MG PO (08:40)
[2025-02-19] MEDS: CLOPIDOGREL BISULFATE 75 MG TABLET PO (08:40)
[2025-02-19] MEDS: DOCUSATE SODIUM 100 MG CAPSULE PO (08:40)
[2025-02-19] MEDS: FOLIC ACID 1 MG TABLET PO (08:40)
[2025-02-19] MEDS: PANTOPRAZOLE 40 MG TABLET PO (08:40)
[2025-02-19] MEDS: ATORVASTATIN 40 MG TABLET PO (08:40)
[2025-02-19] MEDS: FINASTERIDE 5 MG TABLET PO (08:40)
[2025-02-19] MEDS: FAMOTIDINE 20 MG TABLET PO (08:40)
[2025-02-19] MEDS: ASPIRIN 81 MG ENTERIC TABLET PO (08:40)
[2025-02-19] MEDS: HYDROcodone/acetaminophen (*CRX) 5-325 MG TABLET 1 TAB PO ×2 (08:44→15:02)
--- NOTE | 2025-02-19 12:02 | P.DS_ITS ---
DS: Admitting Diagnosis Discharge Date 02/19/2025 Admitting Diagnosis Lacunar infarct DS: Discharge Diagnosis Discharge Diagnosis (1) Lacunar infarct, acute: Code(s): I63.81 - Other cerebral infarction due to occlusion or stenosis of small artery Status: Acute Assessment and Plan: * Patient difficult to assess - ETOH was 88 * Arrived to the hospital with complaint of headache - although left lower extremity was weaker - stroke workup initiated * Moves all extremities without difficulty * Hx of multiple CVAs * head/neck CTA: shows?chronic bilateral thalamic, basal ganglia, and internal capsule infarcts with extensive chronic small vessel ischemic white matter disease, without aneurysm or significant intracranial stenosis; carotid disease is minimal with?0% right ICA stenosis and 27% left ICA stenosis (NASCET). * Brain MRI: Acute lacunar infarction in the left external capsule, extensive chronic microvascular ischemic appearing changes, old lacunar infarctions in both basal ganglia regions and probably in the pontine portion of the brainstem * Neurology consult pending * Continue DAPT with aspirin and clopidogrel (2) Left leg weakness: Code(s): R29.898 - Other symptoms and signs involving the musculoskeletal system Status: Acute Assessment and Plan: * See above (3) Seizure-like activity: Code(s): R56.9 - Unspecified convulsions Status: Acute Assessment and Plan: * continue with Keppra (4) ESRD on dialysis: Code(s): N18.6 - End stage renal disease; Z99.2 - Dependence on renal dialysis Status: Acute Assessment and Plan: * Dialysis M/W/F * PermCath to right upper chest * nephrology consulted * Monitor phosphorus and electrolytes (5) Hypertension: Qualifiers: Hypertension type: secondary to other renal disorders Qualified Code(s): I15.1 - Hypertension secondary to other renal disorders Code(s): I10 - Essential (primary) hypertension Status: Chronic Assessment and Plan: * continue with amlodipine and metoprolol. Hold metoprolol for heart rate less than 50. His blood pressure is elevated this morning 162/103 * p.r.n. hydralazine with parameters (6) Alcohol abuse: Code(s): F10.10 - Alcohol abuse, uncomplicated Status: Acute Assessment and Plan: * start CIWA * folic acid * thiamin * telemetry * p.r.n. librium * Alcohol level upon admission was 88 (7) BPH (benign prostatic hyperplasia): Code(s): N40.0 - Benign prostatic hyperplasia without lower urinary tract symptoms Status: Acute Assessment and Plan: * continue with finasteride DS: Summary Hospital Course Reason for hospitalization: Headache Hospital Course: The patient is a 69-year-old male with a complex medical history including multiple prior CVAs, ESRD on thrice-weekly hemodialysis via right chest PermCath, seizure disorder on levetiracetam, chronic alcohol abuse, and hypertension, who presented on 02/16/2025 with a 2-hour history of right frontal headache and difficulty with neurologic assessment due to somnolence and alcohol intoxication (ethanol level 88). Initial CT head was negative for acute findings, while CTA head and neck demonstrated extensive chronic small vessel ischemic disease with old bilateral thalamic, basal ganglia, and internal capsule infarcts and minimal carotid stenosis. MRI brain revealed an acute lacunar infarct in the left external capsule with extensive chronic microvascular ischemic changes and old lacunar infarcts. Neurology was consulted, and the patient was continued on dual antiplatelet therapy with aspirin and clopidogrel as well as statin therapy. No large-vessel occlusion was identified, and echocardiographic evaluation was reviewed without evidence of a clear cardioembolic source. His transient left lower extremity weakness improved, and subsequent examinations demonstrated movement of all extremities without focal deficits. Seizure disorder remained stable on home levetiracetam without recurrence. ESRD was managed in coordination with nephrology, with the patient tolerating scheduled hemodialysis and maintaining stable electrolytes and volume status. Hypertension remained labile but was managed with continuation of amlodipine and metoprolol and PRN hydralazine. Given recent alcohol use, CIWA protocol was initiated with thiamine and folic acid, without progression to significant withdrawal. The patient remained hemodynamically stable and neurologically at baseline, and discharge was initially planned; however, due to inability to contact family for safe transportation and home support, discharge was postponed with plans to reattempt family contact and consider further safety evaluation if unsuccessful. Worked with Care coordination who informed me that the patient is able to be discharged home and that family will assist and he can be safely discharged at this point with home health therapy. Status at Discharge Functional status at discharge: independent ambulation Overall status at discharge: patient is progressing back to baseline Time Spent with Patient Time attestation: Total time spent providing and/or coordinating discharge services: 30 Exam Const: General: cooperative, healthy appearing, comfortable, no acute distress, well developed and Physically active Orientation/consciousness: oriented to person, oriented to place, oriented to time and patient oriented x3 HENMT: Head: normal to inspection, No palpable skull fracture present, normocephalic, atraumatic and abrasion Ears: hearing grossly normal bilaterally Eyes: General: appearance normal, both eyes and all related structures Alignment and Position: alignment normal Eyelids: eyelids normal Pupils: Equal, round and reactive pupils present EOM: EOMs intact bilaterally Neck: Neck: normal visual inspection and full ROM Chest: Chest palpation & inspection: normal inspection of the chest Resp: Effort & Inspection: normal respiratory effort Auscultation: clear to auscultation bilaterally Cardio: Palpation: normal PMI Rate: regular rate Rhythm: regular rhythm Heart sounds: S1 normal heart sound present and S2 normal heart sound present Peripheral pulses: Peripheral pulses 2+ throughout GI: Inspection: normal to inspection Auscultation: normal bowel sounds Rectal Exam: deferred : General: Yes no CVA tenderness Back/Spine/Pelvis: Back: no CVA tenderness Cervical Spine: cervical ROM normal Skin: General skin exam: normal color Lesions: no lesions Rashes: no rashes Trauma: no lacerations or abrasions Wounds: no wounds Neuro: General: oriented to person, oriented to place, oriented to time and patient oriented x3 Cranial nerves: Yes Equal, round and reactive pupils present and Yes Normal hearing present Cognition (Neuro): normal cognition Speech: normal speech Sensory Exam: normal sensation Other: The patient is moving all extremities. Patient has a cast to the left forearm and he has a wrap to the lower extremity where he has a ankle strain. Extrem: General: normal to inspection Right upper extremity: normal to inspection and shoulder/upper arm Left upper extremity: shoulder/upper arm Right lower extremity: normal to inspection Left lower extremity: normal to inspection Other: Cast intact to left forearm. Donovan wrap intact to left ankle. Tunneled catheter for dialysis PermCath is intact to right upper chest. Psych: Appearance: grossly normal Mental Status: mental status grossly normal Speech and movement: Normal speech and movement present Affect: normal affect Attitude: cooperative Thought process: Normal thought process present Insight: Good insight present (Psych) Judgement: Good judgement present (Psych) DS: Data Data Completed and Pending Labs on day of discharge: Labs from last 24 hours 02/19/25 05:29 WBC 9.3 RBC 2.73 L Hgb 8.5 L Hct 27.1 L MCV 99.3 MCH 31.1 MCHC 31.4 L RDW 19.9 H Plt Count 319 MPV 9.7 Immature Gran % (Auto) 0.4 Neut % (Auto) 71.3 Lymph % (Auto) 15.5 L [place] % (Auto) 8.5 Eos % (Auto) 3.9 Baso % (Auto) 0.4 Lymph # (Auto) 1.44 [place] # (Auto) 0.8 H Eos # (Auto) 0.4 H Baso # (Auto) 0.0 Abs Immat Gran (auto) 0.04 H Absolute Neuts (auto) 6.6 Absolute Nucleated RBC 0.030 H Nucleated RBC % 0.3 H Sodium 134 L Potassium 3.8 Chloride 98 Carbon Dioxide 27 Anion Gap 9 BUN 15 D Creatinine 6.84 H Estim Creat Clear Calc 9 Estimated GFR 8 L Glucose 81 Calcium 8.7 Total Bilirubin 0.4 AST 22 ALT 8 Alkaline Phosphatase 117 Total Protein 6.7 Albumin 3.6 Discharge Plan Discharge Attending physician on discharge: Jerry Varela Consulting providers: Toño Whiting; Omar Arguello; Robel Otero Discharging Clinician: Toño Whiting Anticipated Discharge Date/Time: 02/18/25 10:47 Patient Disposition: Home with Home Health Service Activity: as tolerated Diet: regular Discharge Instructions: Patient has an appointment with Dr. Amanda Lopez at the [facility] on 02/19/25 at 3:50 pm. Please call to cancel appointment if unable to go to the appointment . Pt. has his next hemodialysis treatment at [facility] on 02/19/25 and 12/24/24 at 10:45 am. Per Care Coordination, patient to discharge with [facility] ([phone]) for PT/OT and residential. Agency will call to arrange resumption of services. Discharge disposition: Home with home health therapy Take medications as prescribed Monitor blood pressures Take caution while standing, rising, or moving Change positions slowly taking a break between each position change If you standing feel dizzy sit back down and take a break Strict bleeding precautions since you are being started on Plavix including shaving with an electric razor, holding pressure for greater than 20 minutes for injury, protection of had with any falls, etc. Follow-up with neurology in 6-8 weeks Encouraged to continue with yearly vaccinations Return to the emergency department if you develop sudden shortness of breath, chest pain, nausea, vomiting, upset stomach or intractable diarrhea Return to the emergency department if you develop fever greater than 101.5 Follow-up with the primary care physician within 1-2 weeks Thank you for choosing [facility] for your healthcare needs Patient Instructions: Antibiotic Form, Rivaroxaban (By mouth), Ischemic Stroke (DC) Patient Language: Syrian Stand Alone Forms: General Discharge Information Follow-up/Referrals: JimboAmanda MD [Other] Robel Otero MD [Physician, Neurology] Discharge Medications: Continued amlodipine 10 mg tablet 10 mg PO DAILY famotidine 20 mg tablet 20 mg PO DAILY tamsulosin 0.4 mg capsule 0.4 mg PO HS pantoprazole 40 mg tablet,delayed release (DR/EC) 40 mg PO DAILY finasteride 5 mg tablet 5 mg PO DAILY acetaminophen 500 mg capsule 500 mg PO Q6H PRN (Reason: pain) hydrocodone-acetaminophen 5-325 mg tablet 1 tablet PO Q6H PRN (Reason: pain) Qty: 20 0RF atorvastatin 40 mg Tablet 40 mg PO DAILY Qty: 30 2RF clopidogrel 75 mg Tablet 75 mg PO QAM Qty: 30 2RF aspirin 81 mg Tablet,Delayed Release (Dr/Ec) 81 mg PO QAM Qty: 30 2RF levetiracetam [Keppra] 500 mg Tablet 500 mg PO Q12HR Qty: 60 2RF folic acid 1 mg Tablet 1 mg PO DAILY Qty: 30 2RF thiamine HCl (vitamin B1) [Vitamin B-1] 100 mg Tablet 100 mg PO QAM Qty: 30 2RF metoprolol tartrate 50 mg Tablet 50 mg PO Q12HR Qty: 60 2RF Date of admission: 02/16/25 00:55 Primary Care Provider: Amanda Cueto MD Admitting Provider: García Madden Attending physician on admission: García Madden Condition: Stable Quality VTE Prophylaxis VTE prophylaxis: mechanical ordered
[2025-02-19 14:00] VITALS: BP 165/91; PULSE 69; RESP 18; TEMP 36.7; O2SAT 100
--- NOTE | 2025-02-19 14:48 | P.PNNP_ITS ---
Progress Note: A&P Assessment and Plan (1) End stage renal disease: Code(s): N18.6 - End stage renal disease Status: Chronic Assessment and Plan: * HD due tomorrow * he will call his dialysis unit to help get a red * volume status looks okay . Giving some fluid. * potassium, CO2, and BUN are all okay. * outpatient dialysis clinic = [facility] * primary project management consultant = Dr. Deluca * okay for discharge when others are ready (2) Lacunar infarct, acute: Code(s): I63.81 - Other cerebral infarction due to occlusion or stenosis of small artery Status: Acute Assessment and Plan: * as noted by MRI of brain (on 02/16): * acute lacunar infarction in the left external capsule * extensive chronic microvascular ischemic appearing changes, and old lacunar infarctions in both basal ganglia regions and probably in the pontine portion of the brainstem as well * known history of previous CVAs based on previous imaging * extensive imaging to date noted: * Head CT negative (this admission as well as last) * Head/neck CTA noted: - chronic bilateral thalamic, basal ganglia, and internal capsule infarcts - extensive chronic small vessel ischemic white matter disease, without aneurysm or significant intracranial stenosis - carotid disease is minimal with?0% right ICA stenosis and 27% left ICA stenosis (NASCET) * Brain MRI (12/20/24): - old lacunar infarcts at the bilateral thalami, basal ganglia and int ernal capsules - no acute intracranial process or abnormal enhancing brain lesions - extensive periventricular predominant nonspecific white matter T2 hyperintensity consistent with chronic small vessel ischemic disease * Echocardiogram ordered * on ASA/plavix/statin * Neurology consulted (3) Seizure-like activity: Code(s): R56.9 - Unspecified convulsions Status: Acute Assessment and Plan: * noted on hospital admission in November 2024 * started on and remains on Keppra at that time (4) Anemia: Code(s): D64.9 - Anemia, unspecified Status: Chronic Assessment and Plan: * due to ESRD * Epogen with HD * hemoglobin 8.5 (5) Hypertension: Qualifiers: Hypertension type: secondary to other renal disorders Qualified Code(s): I15.1 - Hypertension secondary to other renal disorders Code(s): I10 - Essential (primary) hypertension Status: Chronic Assessment and Plan: * resumed home medications * On amlodipine 10, and metoprolol 50. * Pulse is 80. * He is allergic to Donovan inhibitors. * Will increase metoprolol to 100 * blood pressure down to 164 to today * hydralazine PRN * - (6) Alcohol abuse: Code(s): F10.10 - Alcohol abuse, uncomplicated Status: Acute Assessment and Plan: * known history * admission alcohol level noted * [facility] protocol * on thiamine and folate Subjective Date/time seen: 02/19/25 14:48 Interval history: patient is in good spirits. Eating okay breathing ok due for dialysis tomorrow eager for discharge Exam Narrative: WDWN in NAD skin no rash head ncat lungs clear to auscultation cor reg no rub or gallop abd BS+ nontender and soft ext no edema. cast on arm Objective Data Vital Signs Vital Signs: Vital Signs - 24 hr 02/18/25 20:00 02/18/25 20:08 02/18/25 20:27 Temperature Pulse Rate 78 74 Respiratory Rate 16 Blood Pressure 162/83 H Pulse Oximetry 100 Oxygen Delivery Room Air 02/19/25 05:04 02/19/25 08:40 Temperature 97.7 F Pulse Rate 70 80 Respiratory Rate 16 Blood Pressure 164/82 H Pulse Oximetry 100 Oxygen Delivery Intake/Output Intake/Output: Intake & Output 02/16/25 02/17/25 02/18/25 02/19/25 23:59 23:59 23:59 23:59 Intake Total 3060 840 1060 480 Output Total 1000 2000 Balance 2060 840 -940 480 Meds/Results Medications: Active Medications Generic Name Dose Route Start Last Admin Trade Name Freq PRN Reason Stop Dose Admin Acetaminophen 650 mg 02/16/25 00:54 02/16/25 20:14 Acetaminophen 325 Mg Tablet PO 650 mg Q4H PRN Administration Mild Pain (1-3) or Fever Hydrocodone Bitart/Acetaminophen 1 tab 02/16/25 08:37 02/19/25 08:44 Hydrocodone/Acetaminophen (*Crx) 5-325 Mg Tablet PO 1 tab Q6H PRN Administration Pain 4-6 Amlodipine Besylate 10 mg 02/17/25 09:00 02/19/25 08:39 Amlodipine Besylate 10 Mg Tablet PO 10 mg DAILY ANDER Administration Aspirin 81 mg 02/16/25 09:00 02/19/25 08:40 Aspirin 81 Mg Enteric Tablet PO 81 mg QAM ANDER Administration Atorvastatin Calcium 40 mg 02/16/25 09:00 02/19/25 08:40 Atorvastatin 40 Mg Tablet PO 40 mg DAILY ANDER Administration Chlordiazepoxide HCl 25 mg 02/16/25 09:10 Chlordiazepoxide (*Crx) 25 Mg Capsule PO Q6H PRN Withdrawal Clopidogrel Bisulfate 75 mg 02/16/25 09:00 02/19/25 08:40 Clopidogrel Bisulfate 75 Mg Tablet PO 75 mg QAM ANDER Administration Docusate Sodium 100 mg 02/16/25 09:00 02/19/25 08:40 Docusate Sodium 100 Mg Capsule PO 100 mg Q12HR ANDER Administration Famotidine 20 mg 02/16/25 09:00 02/19/25 08:40 Famotidine 20 Mg Tablet PO 20 mg DAILY ANDER Administration Finasteride 5 mg 02/16/25 09:00 02/19/25 08:40 Finasteride 5 Mg Tablet PO 5 mg DAILY ANDER Administration Folic Acid 1 mg 02/16/25 09:00 02/19/25 08:40 Folic Acid 1 Mg Tablet PO 1 mg DAILY ANDER Administration Hydralazine HCl 10 mg 02/16/25 20:51 02/17/25 22:48 Hydralazine Hcl 20 Mg/Ml Vial IV PUSH 10 mg Q6HR PRN Administration Blood Pressure - High Albumin Human 50 mls @ 999 mls/hr 02/16/25 09:43 Albutein IVPB 03/18/25 09:42 Q10M PRN HYPOTENSION Levetiracetam 500 mg 02/16/25 09:00 02/19/25 08:40 Levetiracetam 500 Mg Tablet PO 500 mg Q12HR ANDER Administration Metoprolol Tartrate 100 mg 02/18/25 21:00 02/19/25 08:40 Metoprolol Tartrate 50 Mg Tab PO 100 mg Q12HR NADER Administration Ondansetron HCl 4 mg 02/16/25 00:54 Ondansetron Inj 4 Mg/2 Ml Vial IV PUSH Q4H PRN Nausea Pantoprazole Sodium 40 mg 02/16/25 09:00 02/19/25 08:40 Pantoprazole 40 Mg Tablet PO 40 mg DAILY ANDER Administration Tamsulosin HCl 0.4 mg 02/16/25 21:00 02/18/25 21:00 Tamsulosin Hcl 0.4 Mg Capsule PO 0.4 mg HS ANDER Administration Thiamine HCl 100 mg 02/16/25 09:00 02/19/25 08:39 Thiamine Hcl 100 Mg Tablet PO 100 mg QAM ANDER Administration Radiology Results: ITS Impressions Head/Neck CTA 02/16/25 07:35 IMPRESSION: 1. 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 2. Extensive nonspecific cerebral white matter disease, which likely represents chronic small vessel ischemic disease. 3. No aneurysm or significant intracranial arterial stenosis. 4. 0% stenosis of the proximal right internal carotid artery relative to normal distal artery lumen diameter (NASCET criteria). 5. 27% stenosis of the proximal left internal carotid artery relative to normal distal artery lumen diameter. Head CT 02/16/25 07:37 IMPRESSION: 1. No acute intracranial findings. Abdomen X-Ray 02/16/25 11:41 IMPRESSION: Patient is cleared for MRI. Brain MRI 02/16/25 12:22 IMPRESSION: 1. Acute lacunar infarction in the left external capsule. 2. Extensive chronic microvascular ischemic appearing changes, and old lacunar infarctions in both basal ganglia regions and probably in the pontine portion of the brainstem as well. Labs Labs: Laboratory Results - last 24 hr 02/19/25 05:29 WBC 9.3 RBC 2.73 L Hgb 8.5 L Hct 27.1 L MCV 99.3 MCH 31.1 MCHC 31.4 L RDW 19.9 H Plt Count 319 MPV 9.7 Immature Gran % (Auto) 0.4 Neut % (Auto) 71.3 Lymph % (Auto) 15.5 L [place] % (Auto) 8.5 Eos % (Auto) 3.9 Baso % (Auto) 0.4 Lymph # (Auto) 1.44 [place] # (Auto) 0.8 H Eos # (Auto) 0.4 H Baso # (Auto) 0.0 Abs Immat Gran (auto) 0.04 H Absolute Neuts (auto) 6.6 Absolute Nucleated RBC 0.030 H Nucleated RBC % 0.3 H Sodium 134 L Potassium 3.8 Chloride 98 Carbon Dioxide 27 Anion Gap 9 BUN 15 D Creatinine 6.84 H Estim Creat Clear Calc 9 Estimated GFR 8 L Glucose 81 Calcium 8.7 Total Bilirubin 0.4 AST 22 ALT 8 Alkaline Phosphatase 117 Total Protein 6.7 Albumin 3.6
== END 2025-02-19 16:00 | disposition home health service (06) ==
LOC: ANHED 23:54 → ANH3MED 02-16 03:03 → ANH3MEDSUR 02-20 08:07
PROVIDERS: Internal Medicine Nephrology; Nurse Practitioner; Physician Assistant; Admitting Provider Internal Medicine; Emergency Provider Student in an Organized Health Care Education/Training Program; Visit Provider Internal Medicine
DX: I63.81 Other cerebral infarction due to occlusion or stenosis of small artery (principal); R29.898 Other symptoms and signs involving the musculoskeletal system; R56.9 Unspecified convulsions; N18.6 End stage renal disease; I15.1 Hypertension secondary to other renal disorders; D63.1 Anemia in chronic kidney disease; Z99.2 Dependence on renal dialysis; F10.129 Alcohol abuse with intoxication, unspecified; Y90.4 Blood alcohol level of 80-99 mg/100 ml; K76.0 Fatty (change of) liver, not elsewhere classified; K80.20 Calculus of gallbladder without cholecystitis without obstruction; E87.1 Hypo-osmolality and hyponatremia; K21.9 Gastro-esophageal reflux disease without esophagitis; N40.0 Benign prostatic hyperplasia without lower urinary tract symptoms; F17.210 Nicotine dependence, cigarettes, uncomplicated; Z86.19 Personal history of other infectious and parasitic diseases; Z86.73 Personal history of transient ischemic attack (TIA), and cerebral infarction without residual deficits; Z79.1 Long term (current) use of non-steroidal anti-inflammatories (NSAID); Z79.891 Long term (current) use of opiate analgesic; Z79.02 Long term (current) use of antithrombotics/antiplatelets; Z79.82 Long term (current) use of aspirin; Z82.49 Family history of ischemic heart disease and other diseases of the circulatory system
CPT/HCPCS: 36415; 70450; 70496; 70498; 70553; 74018; 80048; 80053; 82077; 82948; 83605; 83735; 84100; 85025; 85027; 85610; 85730; 86706; 87340; 93005; 96374; 96375; 96376; 97110; 97162; 97165; 97530; 97535; 99285; A9270; A9577; G0257; G0378; J0360; J0780; J1200; J1644; J7030; Q5105; Q9967